=== PATIENT | male | born 1940 | race Caucasian/White ===

== ENCOUNTER → 2018-08-01 | Outpatient (CLI) | payer MEDICARE, BC ==
[2018-08-01 17:54] LABS: HCT 48.1 % (39.0-53.0); HGB 15.5 gm/dL (13.0-17.5); MCH 26.8 pg (25.0-35.0); MCHC 32.2 g/dL (31.0-37.0); MCV 83.3 fL (80.0-100.0); Mean Platelet Volume 6.7; Platelet Count 256 k/uL (150-450); RBC 5.77 m/uL (4.30-5.90); WBC 7.2 k/uL (3.8-10.6)
[2018-08-01 18:06] LABS: Potassium 5.1 mmol/L (3.5-5.1)
== END ==
LOC: LABPAT 16:45
PROVIDERS: ATTEND Internal Medicine Cardiovascular Disease
DX: Z01.812 Encounter for preprocedural laboratory examination (principal); I25.10 Atherosclerotic heart disease of native coronary artery without angina pectoris; I25.2 Old myocardial infarction
CPT/HCPCS: 36415; 80051; 82565; 82947; 83735; 84520; 85027

== ENCOUNTER 2018-08-12 08:29 | Day surgery (SDC) | payer BC, MEDICARE, OTHER ==
[2018-08-09 15:11] VITALS: BMI 30.9
[~2018-08-12 08:29] MED LIST: LACTATED RINGERS 1,000 ML IV SCH; SODIUM CHLORIDE 0.9% 1,000 ML IV SCH
[2018-08-12] MEDS ORDERED: SODIUM CHLORIDE 0.9% 500 ML 500 ML IV ONE (09:37)
[2018-08-12 09:40] LABS: Glucose,Whole Blood 208 mg/dL (75-99)
[2018-08-12] MEDS ORDERED: INSULIN ASPART 100 UNIT/ML 1 ML 10 ML VIAL SQ ONE (09:57)
[2018-08-12] MEDS ORDERED: fentaNYL (PF) 50 MCG/ML 2 ML AMP ONE (10:17)
[2018-08-12] MEDS ORDERED: PROPOFOL 10 MG/ML 20 ML VIAL IV ONE (10:17)
[2018-08-12] MEDS ORDERED: BENZOCAINE SPRAY 1 CAN MUCOUS MEM ONE (10:20)
--- NOTE | 2018-08-12 10:44 | P.PCN ---
Date of Procedure: 08/12/18 Preoperative Diagnosis: Atrial flutter Postoperative Diagnosis: Conversion to sinus rhythm Procedure(s) Performed: ANIL followed by cardioversion Description of Procedure: CARDIOVERSION: This patient with history of ischemic heart disease, newly detected atrial flutter and congestive heart failure ,is brought in for elective cardioversion after adequate anticoagulation. Patient had a ANIL examination which did not reveal any evidence of clot in the left atrial appendage. There is mild sclerosis of by 12 leaflets without any significant stenosis or regurgitation. No mitral regurgitation is noted. Patient was given IV sedation by department of anesthesia. A single shock of 100 J was applied with anterior posterior paddles. Patient converted to sinus rhythm and sinus bradycardia. Conversion EKG showed sinus rhythm with evidence of right bundle-branch block and left axis deviation. Patient tolerated the procedure well. No immediate complications. Plan: Patient will be discharged home later today. He'll continue home medications. Follow-up in the office in one week.
[2018-08-12] MEDS ORDERED: SODIUM CHLORIDE 0.9% 1,000 ML IV SCH ×2 (10:45)
--- NOTE | 2018-08-12 10:49 | P.TEE ---
Indications for Procedure(s): Rule out left atrial thrombus before cardioversion. Date of Procedure: 08/12/18 Preoperative Diagnosis: Atrial flutter, congestive heart failure and ischemic heart disease Postoperative Diagnosis: Successful conversion to sinus rhythm Description of Procedure(s): INDICATION: Atrial flutter, congestive heart failure and ischemic heart disease CONSENT:. Informed consent is obtained from the patient PROCEDURE:. Patient had sedation by department of anesthesia. The throat was sprayed with Cetacaine. A lubricated Omni probe was introduced into the oropharynx and was advanced into the esophagus. Multiple views were obtained. Patient tolerated the procedure well. Color, pulsed and continuous her Doppler studies were performed. Saline contrast bubble injection was also performed FINDINGS:. The aortic valve appeared to be calcified with mild restriction. Planimetry showed a valve area of 1.6. No significant gradient was noted. Mitral valve showed an trace regurgitation. Tricuspid and showed trace regurgitation. Interatrial septum appeared to be intact without any left-to- right shunt. Contrast saline bubble injections did not reveal any crossing of the bubbles across the interatrial septum. There is biatrial enlargement. There is smoke noted in both atria. There is no clot in the left atrial appendage. Left ventricular function appeared to be fair. There is moderate plaque in the aorta IMPRESSION:. No clot in the left atrial appendage. No PFO. Sclerotic aortic valve leaflets without any significant stenosis. Mild mitral and tricuspid regurgitation. Smoke in both atria PLAN: Proceed with cardioversion
[2018-08-12 10:50] VITALS: TEMP 98
[2018-08-12 13:03] VITALS: BP 112/64; PULSE 54; RESP 20
== END 2018-08-12 12:35 | disposition home or self-care (01) ==
LOC: CATHCVL 08:29
PROVIDERS: ATTEND Internal Medicine Cardiovascular Disease
DX: I48.92 Unspecified atrial flutter (principal); I25.10 Atherosclerotic heart disease of native coronary artery without angina pectoris; I11.0 Hypertensive heart disease with heart failure; I50.42 Chronic combined systolic (congestive) and diastolic (congestive) heart failure; E78.5 Hyperlipidemia, unspecified; E11.9 Type 2 diabetes mellitus without complications; Z82.49 Family history of ischemic heart disease and other diseases of the circulatory system; I25.2 Old myocardial infarction; Z79.01 Long term (current) use of anticoagulants; Z79.4 Long term (current) use of insulin; Z79.899 Other long term (current) drug therapy
CPT/HCPCS: 93312; 93320; 93325; 92960; J3010; J2704

== ENCOUNTER → 2018-08-23 | Outpatient (CLI) | payer OTHER ==
[2018-08-24 03:03] LABS: Anion Gap 6.1 mmol/L (4.00-12.00); Calcium 8.7 mg/dL (8.7-10.3); Carbon Dioxide 27.9 mmol/L (21.6-31.8); Potassium 5.3 mmol/L (3.5-5.5)
== END | disposition home or self-care (01) ==
LOC: LABWHC1 16:13
PROVIDERS: ATTEND Internal Medicine Cardiovascular Disease
DX: I50.9 Heart failure, unspecified (principal)
CPT/HCPCS: 36415; 80048

== ENCOUNTER 2018-11-30 11:08 | Inpatient (IN) | payer OTHER, MEDICARE, BC ==
[2018-11-30] MEDS ORDERED: FUROSEMIDE 10 MG/ML 4 ML VIAL IV STA ×2 (11:58→14:02)
--- NOTE | 2018-11-30 12:02 | ED ---
General Adult HPI - General Chief complaint: Shortness of Breath Stated complaint: SOB Time Seen by Provider: 11/30/18 11:46 Source: patient Mode of arrival: wheelchair Limitations: no limitations - History of Present Illness Initial comments: Dictation was produced using [employer] dictation software. please excuse any grammatical, word or spelling errors. Chief Complaint: 78-year-old male past medical history of atrial flutter diabetes, heart failure presents with acute shortness of breath. History of Present Illness: 78-year-old male presents for shortness of breath. Patient states he's been short of breath for approximately one week. Went to the [facility] and was sent here. Patient came to the triage front door. She denies any history of heart failure. Patient denies any medical problems. Patient reports that is also noted swelling to his bilateral lower extremities. He states his symptoms are worse with lying flat. Patient has no pain complaints at this time. The ROS documented in this emergency department record has been reviewed and confirmed by me. Those systems with pertinent positive or negative responses have been documented in the HPI. All other systems are other negative and/or noncontributory. PHYSICAL EXAM: General Impression: Alert and oriented x3, not in acute distress HEENT: Normocephalic atraumatic, extra-ocular movements intact, pupils equal and reactive to light bilaterally, mucous membranes moist. Cardiovascular: Heart regular rate and rhythm, S1&S2 audible, no murmurs, rubs or gallops Chest: Bilateral lung crackles Abdomen: Bowel sounds present, abdomen soft, non-tender, non-distended, no organomegaly Musculoskeletal: Pulses present and equal in all extremities, 2+ pitting edema bilateral lower extremities Motor: no focal deficits noted Neurological: CN II-XII grossly intact, no focal motor or sensory deficits noted Skin: Intact with no visualized rashes Psych: Normal affect and mood ED course: 78-year-old male with chief complaint of shortness of breath. Vital signs upon arrival shows restrictive 25, patient is 80s without supplemental oxygen and respiratory rate of 25. Rest vital signs within acceptable limits. Drug use performed. Patient has eliquis, isosorbide and Lasix medications. Laboratory evaluation obtained. Mild leukocytosis of 11.9. Rest of CBC grossly unremarkable. Coag panel is unremarkable. Metabolic panel appears to be around patient's baseline. His glucose of 471. Patient has troponin 13.8 and a prematurity peptide of 23,000. Repeat EKG was performed showing no dynamic changes however there is discernible SC depressions in the anterior precordial leads. Patient started on low-dose heparin drip and given aspirin. Cardiology was called right away Dr. Chahal requested that patient had a stat echocardiogram. Echocardiogram manufacturing plant technician was called immediately and performed the echo. Echo showed posterior and inferior wall motion abnormalities. Dr. Chahal was seen at bedside with patient. He requested the patient be started on Lasix infusion and be admitted to the intensive care unit. Patient case was discussed with Dr. Dobbs was willing to accept the admission. EKG interpretation: Ventricular rate 94, normal sinus rhythm, NE interval 176, was 138, QTc 510, right bundle branch block. No NE prolongation, no QTC prolongation, no ST or T-wave changes noted. Overall, this EKG is unremarkable - Related Data Home Medications Medication Instructions Recorded Confirmed Apixaban [Eliquis] 5 mg PO BID 08/09/18 11/30/18 Furosemide [Lasix] 40 mg PO DAILY 08/09/18 11/30/18 Potassium Chloride [K-Tab ER] 10 meq PO BID 08/09/18 11/30/18 Spironolactone 12.5 mg PO DAILY 08/09/18 11/30/18 Tamsulosin [Flomax] 0.4 mg PO BID 08/09/18 11/30/18 glipiZIDE [Glucotrol] 10 mg PO AC-BID 08/09/18 11/30/18 metFORMIN HCL 1,000 mg PO DAILY 08/09/18 11/30/18 Metoprolol Tartrate [Lopressor] 50 mg PO BID 08/12/18 11/30/18 Insulin NPH Hum/Reg Insulin Hm 60 unit SQ BID 11/30/18 11/30/18 [Novolin 70-30 Flexpen] Isosorbide Mononitrate ER [Imdur] 90 mg PO DAILY 11/30/18 11/30/18 Rosuvastatin Calcium 40 mg PO DAILY 11/30/18 11/30/18 amLODIPine [Norvasc] 5 mg PO BID 11/30/18 11/30/18 Allergies Allergy/AdvReac Type Severity Reaction Status Date / Time atorvastatin [From Lipitor] Allergy Unknown Verified 11/30/18 12:24 Review of Systems ROS Statement: Those systems with pertinent positive or pertinent negative responses have been documented in the HPI. ROS Other: All systems not noted in ROS Statement are negative. Past Medical History Past Medical History: Atrial Flutter, Diabetes Mellitus, Hyperlipidemia, Osteoarthritis (OA), Prostate Disorder Additional Past Medical History / Comment(s): See Dr Epps's H&P History of Any Multi-Drug Resistant Organisms: None Reported Past Surgical History: Appendectomy, Heart Catheterization With Stent Additional Past Surgical History / Comment(s): Cataracts Past Anesthesia/Blood Transfusion Reactions: No Reported Reaction Date of Last Stent Placement:: unsure Smoking Status: Former smoker - Past Family History Mother Family Medical History: Myocardial Infarction ([place]) General Exam Limitations: no limitations Course Vital Signs 11/30/18 11/30/18 11/30/18 11:29 11:31 12:30 Temperature 98.4 F Pulse Rate 94 109 H Respiratory 25 H 20 22 Rate Blood Pressure 143/84 177/99 O2 Sat by Pulse 92 L 95 Oximetry 11/30/18 13:02 Temperature Pulse Rate 93 Respiratory 20 Rate Blood Pressure 146/82 O2 Sat by Pulse 92 L Oximetry Medical Decision Making - Lab Data Result diagrams: 11/30/18 11:56 11/30/18 11:56 Lab Results 11/30/18 11/30/18 11/30/18 Range/Units 11:56 11:56 11:56 WBC 11.9 H (3.8-10.6) k/uL RBC 5.54 (4.30-5.90) m/uL Hgb 15.1 (13.0-17.5) gm/dL Hct 48.9 (39.0-53.0) % MCV 88.3 (80.0-100.0) fL MCH 27.2 (25.0-35.0) pg MCHC 30.8 L (31.0-37.0) g/dL RDW 14.7 (11.5-15.5) % Plt Count 298 (150-450) k/uL Neutrophils % 90 % Lymphocytes % 2 % Monocytes % 5 % Eosinophils % 1 % Basophils % 0 % Neutrophils # 10.7 H (1.3-7.7) k/uL Lymphocytes # 0.3 L (1.0-4.8) k/uL Monocytes # 0.6 (0-1.0) k/uL Eosinophils # 0.1 (0-0.7) k/uL Basophils # 0.0 (0-0.2) k/uL Hypochromasia Moderate Poikilocytosis Slight PT (9.0-12.0) sec INR (<1.2) APTT (22.0-30.0) sec Sodium 136 L (137-145) mmol/L Potassium 5.0 (3.5-5.1) mmol/L Chloride 99 (98-107) mmol/L Carbon Dioxide 22 (22-30) mmol/L Anion Gap 15 mmol/L BUN 29 H (9-20) mg/dL Creatinine 1.51 H (0.66-1.25) mg/dL Est GFR (CKD-EPI)AfAm 51 (>60 ml/min/1.73 sqM) Est GFR (CKD-EPI)NonAf 44 (>60 ml/min/1.73 sqM) Glucose 471 H (74-99) mg/dL Calcium 8.9 (8.4-10.2) mg/dL Magnesium 2.1 (1.6-2.3) mg/dL Total Bilirubin 1.2 (0.2-1.3) mg/dL AST 83 H (17-59) U/L ALT 32 (21-72) U/L Alkaline Phosphatase 170 H (38-126) U/L Creatine Kinase 257 H (55-170) U/L Troponin I (0.000-0.034) ng/mL NT-Pro-B Natriuret Pep 02673 pg/mL Total Protein 7.0 (6.3-8.2) g/dL Albumin 3.9 (3.5-5.0) g/dL Influenza Type A RNA (Not Detectd) Influenza Type B (PCR) (Not Detectd) 11/30/18 11/30/18 11/30/18 Range/Units 11:56 11:56 12:12 WBC (3.8-10.6) k/uL RBC (4.30-5.90) m/uL Hgb (13.0-17.5) gm/dL Hct (39.0-53.0) % MCV (80.0-100.0) fL MCH (25.0-35.0) pg MCHC (31.0-37.0) g/dL RDW (11.5-15.5) % Plt Count (150-450) k/uL Neutrophils % % Lymphocytes % % Monocytes % % Eosinophils % % Basophils % % Neutrophils # (1.3-7.7) k/uL Lymphocytes # (1.0-4.8) k/uL Monocytes # (0-1.0) k/uL Eosinophils # (0-0.7) k/uL Basophils # (0-0.2) k/uL Hypochromasia Poikilocytosis PT 11.5 (9.0-12.0) sec INR 1.1 (<1.2) APTT 26.3 (22.0-30.0) sec Sodium (137-145) mmol/L Potassium (3.5-5.1) mmol/L Chloride (98-107) mmol/L Carbon Dioxide (22-30) mmol/L Anion Gap mmol/L BUN (9-20) mg/dL Creatinine (0.66-1.25) mg/dL Est GFR (CKD-EPI)AfAm (>60 ml/min/1.73 sqM) Est GFR (CKD-EPI)NonAf (>60 ml/min/1.73 sqM) Glucose (74-99) mg/dL Calcium (8.4-10.2) mg/dL Magnesium (1.6-2.3) mg/dL Total Bilirubin (0.2-1.3) mg/dL AST (17-59) U/L ALT (21-72) U/L Alkaline Phosphatase (38-126) U/L Creatine Kinase (55-170) U/L Troponin I 13.800 H* (0.000-0.034) ng/mL NT-Pro-B Natriuret Pep pg/mL Total Protein (6.3-8.2) g/dL Albumin (3.5-5.0) g/dL Influenza Type A RNA Not Detected (Not Detectd) Influenza Type B (PCR) Not Detected (Not Detectd) Critical Care Time Critical Care Time: Yes Total Critical Care Time: 31 Disposition Clinical Impression: Congestive heart failure, Myocardial infarction Disposition: ADMITTED IP TO THIS HOSP Condition: Critical Referrals: [facility],Clinic [Primary Care Provider] - 1-2 days Decision Time: 14:28
[2018-11-30 12:09] LABS: Basophils % (A) 0 %; Eosinophils # (A) 0.1 k/uL (0-0.7); Eosinophils % (A) 1 %; HCT 48.9 % (39.0-53.0); HGB 15.1 gm/dL (13.0-17.5); Hypochromasia Moderate; Lymphocytes # (A) 0.3 k/uL (1.0-4.8); Lymphocytes % (A) 2 %; MCH 27.2 pg (25.0-35.0); MCHC 30.8 g/dL (31.0-37.0); MCV 88.3 fL (80.0-100.0); Mean Platelet Volume 7.4; Monocytes # (A) 0.6 k/uL (0-1.0); Monocytes % (A) 5 %; Neutrophils # (A) 10.7 k/uL (1.3-7.7); Neutrophils % (A) 90 %; Platelet Count 298 k/uL (150-450); Poikilocytosis Slight; RBC 5.54 m/uL (4.30-5.90); RDW 14.7 % (11.5-15.5); WBC 11.9 k/uL (3.8-10.6)
[2018-11-30 12:22] LABS: INR 1.1 (<1.2); Partial Thromboplastin Time 26.3 sec (22.0-30.0); Prothrombin Time 11.5 sec (9.0-12.0)
[2018-11-30 12:29] LABS: Albumin 3.9 g/dL (3.5-5.0); Calcium 8.9 mg/dL (8.4-10.2); Magnesium 2.1 mg/dL (1.6-2.3); Total Bilirubin 1.2 mg/dL (0.2-1.3)
--- NOTE | 2018-11-30 12:35 | XR ---
EXAMINATION TYPE: XR chest 2V DATE OF EXAM: 11/30/2018 COMPARISON: 07/07/2018 TECHNIQUE: PA and lateral views submitted. HISTORY: Difficulty breathing FINDINGS: Right-sided consolidation small effusion. No pneumothorax. Arthropathy of the shoulders. Heart size n ormal. Hypertrophic and degenerative change of the spine. Left lower lobe infiltrate and small effusi on. IMPRESSION: 1. Stable bilateral infiltrate and pleural effusion correlate for pneumonia, otherwise consider CHF
[2018-11-30] MEDS ORDERED: HEPARIN SODIUM,PORCINE 5,000 UNIT/ML 1 ML VIAL IV ONE (13:01)
[2018-11-30] MEDS ORDERED: HEPARIN SODIUM,PORCINE 5,000 UNIT/ML 1 ML VIAL IV PRN (13:01)
[2018-11-30] MEDS ORDERED: ASPIRIN 81 MG PO STA (13:02)
[2018-11-30] MEDS ORDERED: HEPARIN SOD,PORK IN 0.45% NACL 25,000 UNIT in 0.45% NACL 1 250ML.BAG IV SCH ×2 (13:15→14:30)
[2018-11-30] MEDS ORDERED: METOPROLOL TARTRATE 5 MG/5 ML VIAL IVP STA (13:19)
[2018-11-30] MEDS ORDERED: NALOXONE 0.4 MG/ML 1 ML VIAL IV PRN (14:19)
[2018-11-30] MEDS ORDERED: CARVEDILOL 3.125 MG TAB PO STA (14:27)
[2018-11-30] MEDS: SODIUM CHLORIDE 0.9% 1,000 ML IV SCH (14:35)
--- NOTE | 2018-11-30 14:35 | P.HPIM ---
History of Present Illness This is a pleasant 78 years old male with past medical history of atrial fibrillation, diabetes mellitus, hyperlipidemia, osteoarthritis, congestive heart failure and ischemic heart disease. Patient presents because of worsening dyspnea over one week duration with no chest pain however he has some cough and yellow phlegm. No palpitation or dizziness, no change in urine or bowel habits. No fever. Patient blood pressure is stable at 146/82, saturating 92% on 4 L, he is afebrile. He has mild leukocytosis of 11.9 K, sodium 136, creatinine 1.5 which is close to baseline, glucose 471. Troponin 13.8, influenza is negative. Chest x-ray: Stable bilateral infiltrates suspicious for pneumonia, possible CHF as per radiologist report. EKG showing normal sinus rhythm at [address] depression in V2 to V6. QTC 510. In the emergency room he got aspirin, Coreg and Lasix once. Patient was started on Lasix drip and heparin drip. He is on losartan metoprolol as well. Review of Systems CONSTITUTIONAL: No fever, no malaise, no fatigue. HEENT: No recent visual problems or hearing problems. Denied any sore throat. CARDIOVASCULAR: No orthopnea, PND, no palpitations, no syncope. PULMONARY: No shortness of breath, no cough, no hemoptysis. GASTROINTESTINAL: No diarrhea, no nausea, no vomiting, no abdominal pain. Normoactive bowel sounds. NEUROLOGICAL: No headaches, no weakness, no numbness. HEMATOLOGICAL: Denies any bleeding or petechiae. GENITOURINARY: Denies any burning micturition, frequency, or urgency. MUSCULOSKELETAL/RHEUMATOLOGICAL: Denies any joint pain, swelling, or any muscle pain. ENDOCRINE: Denies any polyuria or polydipsia. Past Medical History Past Medical History: Atrial Flutter, Diabetes Mellitus, Hyperlipidemia, Osteoarthritis (OA), Prostate Disorder Additional Past Medical History / Comment(s): See Dr Epps's H&P History of Any Multi-Drug Resistant Organisms: None Reported Past Surgical History: Appendectomy, Heart Catheterization With Stent Additional Past Surgical History / Comment(s): Cataracts Past Anesthesia/Blood Transfusion Reactions: No Reported Reaction Date of Last Stent Placement:: unsure Smoking Status: Former smoker - Past Family History Mother Family Medical History: Myocardial Infarction ([place]) Medications and Allergies Home Medications Medication Instructions Recorded Confirmed Type Apixaban [Eliquis] 5 mg PO BID 08/09/18 11/30/18 History Furosemide [Lasix] 40 mg PO DAILY 08/09/18 11/30/18 History Potassium Chloride [K-Tab ER] 10 meq PO BID 08/09/18 11/30/18 History Spironolactone 12.5 mg PO DAILY 08/09/18 11/30/18 History Tamsulosin [Flomax] 0.4 mg PO BID 08/09/18 11/30/18 History glipiZIDE [Glucotrol] 10 mg PO AC-BID 08/09/18 11/30/18 History metFORMIN HCL 1,000 mg PO DAILY 08/09/18 11/30/18 History Metoprolol Tartrate [Lopressor] 50 mg PO BID 08/12/18 11/30/18 History Insulin NPH Hum/Reg Insulin Hm 60 unit SQ BID 11/30/18 11/30/18 History [Novolin 70-30 Flexpen] Isosorbide Mononitrate ER [Imdur] 90 mg PO DAILY 11/30/18 11/30/18 History Rosuvastatin Calcium 40 mg PO DAILY 11/30/18 11/30/18 History amLODIPine [Norvasc] 5 mg PO BID 11/30/18 11/30/18 History Allergies Allergy/AdvReac Type Severity Reaction Status Date / Time atorvastatin [From Lipitor] Allergy Unknown Verified 11/30/18 12:24 Physical Exam Vitals: Vital Signs Temp Pulse Resp BP Pulse Ox 11/30/18 13:02 93 20 146/82 92 L 11/30/18 12:30 109 H 22 177/99 95 11/30/18 11:31 20 11/30/18 11:29 98.4 F 94 25 H 143/84 92 L Intake and Output 11/29/18 11/30/18 11/30/18 22:59 06:59 14:59 Other: Weight 86.183 kg GENERAL: The patient is alert and oriented x3, not in any acute distress. Well developed, well nourished. HEENT: Pupils are round and equally reacting to light. EOMI. No scleral icterus. No conjunctival pallor. Normocephalic, atraumatic. No pharyngeal erythema. No thyromegaly. CARDIOVASCULAR: S1 and S2 present. No murmurs, rubs, or gallops. -PULMONARY: Chest is clear to auscultation, scattered bilateral wheezing and basal crackles. ABDOMEN: Soft, nontender, nondistended, normoactive bowel sounds. No palpable organomegaly. MUSCULOSKELETAL: No joint swelling or deformity. EXTREMITIES: No cyanosis, clubbing, or pedal edema. NEUROLOGICAL: Gross neurological examination did not reveal any focal deficits. SKIN: No rashes. Results CBC & Chem 7: 11/30/18 11:56 11/30/18 11:56 Labs: Abnormal Lab Results - Last 24 Hours (Table) 11/30/18 11/30/18 11/30/18 Range/Units 11:56 11:56 11:56 WBC 11.9 H (3.8-10.6) k/uL MCHC 30.8 L (31.0-37.0) g/dL Neutrophils # 10.7 H (1.3-7.7) k/uL Lymphocytes # 0.3 L (1.0-4.8) k/uL Sodium 136 L (137-145) mmol/L BUN 29 H (9-20) mg/dL Creatinine 1.51 H (0.66-1.25) mg/dL Glucose 471 H (74-99) mg/dL AST 83 H (17-59) U/L Alkaline Phosphatase 170 H (38-126) U/L Creatine Kinase 257 H (55-170) U/L Troponin I 13.800 H* (0.000-0.034) ng/mL Assessment and Plan Assessment: Elevated troponin, mostly Non-STEMI Possible acute on chronic congestive heart failure Less likely patient has pneumonia History of coronary artery disease History of congestive heart failure History of atrial fibrillation Diabetes mellitus Hyperlipidemia Plan: This is a pleasant 78 years old male who presents because of the STEMI and acute CHF, continue with diuretics, heparin drip, continue with beta blockers and MELIA inhibitor. Cardiology consult. Continue with antibiotics. Labs and medication were reviewed.. Continue same treatment. Continue with symptomatic treatment. Resume home medication. Monitor lytes and vitals. DVT and GI prophylaxis. Further recommendations of the clinical course of the patient DVT prophylaxis: heparin GI Prophylaxis: Pepcid Prognosis is guarded
[2018-11-30] MEDS: FUROSEMIDE 100 MG in SODIUM CHLORIDE 0.9% 90 ML IV SCH ×2 (14:43→23:21)
[2018-11-30 15:40] LABS: Glucose,Whole Blood 411 mg/dL (75-99)
[2018-11-30 15:40] LABS: Glucose,Whole Blood 420 mg/dL (75-99)
--- NOTE | 2018-11-30 16:00 | CONS ---
CONSULTATION Neto Brice is a 78-year-old gentleman with a history of type 2 diabetes mellitus, hypertension, paroxysmal atrial fibrillation as well as past remote history of smoking. He was seen by Dr. Epps in August in the office, was found to be in a relatively new-onset atrial flutter. He underwent a transesophageal echo which revealed fair systolic function and he went on to have a cardioversion successfully. Since then he has not seen him. He [facility] to the [facility] for [facility] help. About a week and a half ago, he started having shortness of breath and an uncomfortable feeling in the chest. The chest uncomfortable feeling was not something he volunteered, but I had to coax him to get that information. He felt some heaviness in the chest, maybe for a day or so. This was almost about a week and a half, and then he had shortness of breath that progressively got worse. Today he went to the [facility] because his medications were not authorized. After going to the clinic, he was seen and transferred here for further evaluation. On questioning, he is quite short of breath, but after receiving the Lasix he feels better. He has no chest pain. Virtually he says he has absolutely no chest discomfort. He just feels weak, tired, exhausted and short of breath. He has no palpitations, syncope or near-syncope. This Patient has history of previous PCI more than 8-9 years ago, no details available. PAST MEDICAL HISTORY: 1. Paroxysmal atrial flutter, status post transesophageal echo and cardioversion in August 2018 by . 2. Type 2 diabetes. 3. Hypertension. 4. Hyperlipidemia. 5. History of CAD with prior PCI, details unavailable, last Echo in Office revealed EF of 50% with mild Inferior hypokinesis MEDICATIONS: Medications at home include: 1. Glipizide. 2. Insulin. 3. Metformin. 4. Rosuvastatin. 5. Lopressor. 6. Aspirin. PHYSICAL EXAMINATION: Blood pressure is 140/70. Pulse rate is about 90 per minute, regular. HEENT unremarkable. Fundus was not examined by me. NECK: Supple. There is JVD of 1 cm. There is no carotid bruit. Heart exam reveals S1, S2 heard normally. Soft systolic murmur at left sternal border does not seem significant. Ejection systolic murmur audible at the base with preserved second heart sound. LUNGS: Bilateral rales over both bases. Abdomen is soft, nontender. Lower extremities reveal chronic changes, chronic edema, mild to moderate bilateral diminished pulses, healed ulcers. Pulses are not palpable in the feet. EKG revealed a sinus mechanism with evidence of left anterior fascicular block, right bundle branch block pattern with a precordial ST depression. There was an old EKG from August. Compared to that, the precordial ST depression is new. Troponin level is 13.6. Creatinine is 1.5. IMPRESSION: 1. Subacute inferoposterior myocardial infarction based on clinical evaluation and EKG. 2. Congestive heart failure secondary to subacute myocardial infarction with troponin level of 13.6. Has prior history of PCI ans possile Inf UT. 3. Type 2 diabetes mellitus. 4. Hypertension. 5. Hyperlipidemia. 6. Status post electrical cardioversion for atrial flutter in August, maintaining sinus rhythm. Patient is on Eliquis 5 mg b.i.d. RECOMMENDATIONS: I am recommending that we give him additional Lasix, place him on a Lasix drip, resume a small dose of beta alfred once his heart failure improves, maybe this evening, and hold Eliquis, put him on a heparin drip only without any bolus, and perform serial troponins. Echocardiogram was performed today and revealed inferoposterior hypokinesia with an estimated ejection fraction of about 40% by visual inspection without significant mitral regurgitation and no significant pulmonary hypertension. Aortic valve is sclerosed. There is evidence of some increased velocity across the aortic valve, but I do not think it is severe. Patient's overall condition is critical, given the fact he has post-UT heart failure, but UT is subacute. There is no reason to perform emergent intervention. Instead, we will optimize his heart failure, obtain serial troponins and then consider cath electively in the next 24-48 hours. I discussed my thoughts in detail with the patient, explained to him that this is a serious situation. No family members are available. Will send him to ICU. KRISTAL / DONALD: [id number] / MTDD
[2018-11-30 16:24] LABS: HCT 46.3 % (39.0-53.0); HGB 13.8 gm/dL (13.0-17.5); Hypochromasia Marked; MCH 27.3 pg (25.0-35.0); MCHC 29.9 g/dL (31.0-37.0); MCV 91.3 fL (80.0-100.0); Mean Platelet Volume 7.4; Platelet Count 231 k/uL (150-450); Poikilocytosis Slight; RBC 5.07 m/uL (4.30-5.90); RDW 14.3 % (11.5-15.5); WBC 11.8 k/uL (3.8-10.6)
[2018-11-30 16:40] LABS: Calcium 8.4 mg/dL (8.4-10.2)
[2018-11-30] MEDS: LOSARTAN 25 MG TAB PO SCH (16:43)
[2018-11-30] MEDS ORDERED: INSULIN REGULAR BOLUS (FROM DRIP BAG) IV PRN (16:56)
[2018-11-30] MEDS ORDERED: INSULIN REGULAR 100 UNIT in SODIUM CHLORIDE 0.9% 100 ML IV SCH (17:00)
[2018-11-30 18:35] LABS: Glucose,Whole Blood 460 mg/dL (75-99)
[2018-11-30 19:06] LABS: Glucose,Whole Blood 306 mg/dL (75-99)
[2018-11-30] MEDS ORDERED: IPRATROPIUM-ALBUTEROL 3 ML NEB INHALATION PRN (19:27)
[2018-11-30 20:02] LABS: Glucose,Whole Blood 305 mg/dL (75-99)
[2018-11-30] MEDS: methylPREDNISolone SOD SUCCI 40 MG/ML 1 ML VIAL IV SCH ×2 (20:15→23:57)
[2018-11-30] MEDS: AMOXIC-POT CLAV 875-125MG 1 EACH TAB PO SCH (20:15)
[2018-11-30] MEDS: IPRATROPIUM-ALBUTEROL 3 ML NEB INHALATION SCH (20:23)
[2018-11-30 21:05] LABS: Glucose,Whole Blood 186 mg/dL (75-99)
[2018-11-30 22:02] LABS: Glucose,Whole Blood 110 mg/dL (75-99)
[2018-11-30 23:07] LABS: Glucose,Whole Blood 109 mg/dL (75-99)
[2018-12-01 00:03] LABS: Glucose,Whole Blood 134 mg/dL (75-99)
[2018-12-01 01:06] LABS: Glucose,Whole Blood 151 mg/dL (75-99)
[2018-12-01 03:08] LABS: Glucose,Whole Blood 177 mg/dL (75-99)
[2018-12-01 05:11] LABS: Glucose,Whole Blood 174 mg/dL (75-99)
[2018-12-01] MEDS: FUROSEMIDE 100 MG in SODIUM CHLORIDE 0.9% 90 ML IV SCH (05:36)
[2018-12-01 06:06] LABS: Glucose,Whole Blood 145 mg/dL (75-99)
[2018-12-01 06:18] LABS: Magnesium 2.1 mg/dL (1.6-2.3); Phosphorus 4.2 mg/dL (2.5-4.5)
[2018-12-01 07:02] LABS: Glucose,Whole Blood 137 mg/dL (75-99)
--- NOTE | 2018-12-01 07:13 | XR ---
EXAMINATION TYPE: XR chest 1V portable DATE OF EXAM: 12/01/2018 HISTORY: Shortness of breath. COMPARISON: 11/30/2018 TECHNIQUE: Single view of the chest is submitted. FINDINGS: Demonstrated are scattered senescent parenchymal change. Increasing right lower lobe opacity may reflect a combination of effusion, atelectasis and/or infiltr ate. Mild patchy density left lower lobe is also increased. Continued follow-up advised. The heart is stable. Hilar and mediastinal structures are within normal limits. Degenerative changes are seen of the dorsal spine. IMPRESSION: 1. Increasing right lower lobe opacity may reflect a combination of effusion, atelectasis and/or inf iltrate. Mild patchy density left lower lobe is also increased. Continued follow-up advised.
[2018-12-01 07:42] LABS: Glucose,Whole Blood 157 mg/dL (75-99)
[2018-12-01] MEDS: IPRATROPIUM-ALBUTEROL 3 ML NEB INHALATION SCH ×4 (08:01→20:31)
[2018-12-01 08:03] LABS: Glucose,Whole Blood 157 mg/dL (75-99)
[2018-12-01 08:28] LABS: HCT 49.8 % (39.0-53.0); Hypochromasia Slight; MCH 26.7 pg (25.0-35.0); MCHC 30.2 g/dL (31.0-37.0); MCV 88.2 fL (80.0-100.0); Mean Platelet Volume 7.5; Platelet Count 248 k/uL (150-450); RBC 5.64 m/uL (4.30-5.90); RDW 14.7 % (11.5-15.5)
[2018-12-01 08:42] LABS: Calcium 8.4 mg/dL (8.4-10.2)
[2018-12-01] MEDS: HEPARIN SOD,PORK IN 0.45% NACL 25,000 UNIT in 0.45% NACL 1 250ML.BAG IV SCH (08:43)
[2018-12-01 08:48] LABS: Potassium 5.1 mmol/L (3.5-5.1)
[2018-12-01 09:10] LABS: Glucose,Whole Blood 173 mg/dL (75-99)
[2018-12-01] MEDS: ASPIRIN 81 MG PO SCH (09:35)
[2018-12-01] MEDS: CARVEDILOL 3.125 MG TAB PO SCH ×2 (09:35→17:56)
[2018-12-01] MEDS: methylPREDNISolone SOD SUCCI 40 MG/ML 1 ML VIAL IV SCH ×2 (09:36→16:14)
[2018-12-01] MEDS: AMOXIC-POT CLAV 875-125MG 1 EACH TAB PO SCH ×2 (09:36→22:16)
[2018-12-01] MEDS: PANTOPRAZOLE 40 MG/10 ML VIAL IVP SCH (09:37)
[2018-12-01] MEDS: LOSARTAN 25 MG TAB PO SCH (09:37)
[2018-12-01 10:02] LABS: Glucose,Whole Blood 158 mg/dL (75-99)
--- NOTE | 2018-12-01 10:04 | PN ---
PROGRESS NOTE Mr. Brice was seen by me yesterday in the emergency room when he presented with a congestive heart failure and [id number] [place] type picture. Since yesterday, he feels better. His breathing is easier. However, he still seems to have some shortness of breath, although there is modest improvement. He denies any chest discomfort whatsoever. I think we are seeing a combination of CHF and possibly some underlying pneumonia/atelectasis as well which is compromising his pulmonary status. He denies any chest discomfort. Troponin profile suggests that troponin went up from 13 to 26 and came back down. He is hemodynamically stable, more comfortable. Weight is down. Creatinine is up to 1.69. Blood pressure is 114/70, pulse rate is about 70 per minute sinus. EKG revealed sinus mechanism, right bundle, ST depression seen in precordial leads, has improved. Physical exam revealed JVD of 1 cm. No carotid bruit. S1, S2 heard normally. Short systolic murmur is audible at the base of the heart. Second heart sound is preserved. Lungs reveal diminished breath sounds especially right base is diminished. There are fine rales on both sides. Abdomen is soft, nontender. Lower extremities reveal diminished edema. Pulses are diminished. Central nervous system grossly no focal deficits. IMPRESSION: 1. Subacute myocardial infarction with congestive heart failure. 2. Possible pneumonia or atelectasis. 3. History of diabetes mellitus chronic kidney disease. 4. History of paroxysmal atrial fibrillation, status post cardioversion, maintaining sinus rhythm. RECOMMENDATION: I am recommending that we hold Eliquis and stay with heparin drip. He is also going to have a ultrasound of the chest and consider thoracentesis. I would recommend coronary angiography tomorrow. We will switch him from IV Lasix drip to Lasix 40 mg q.12 hours. He has renal dysfunction. I explained to the patient that we will do coronary angiography with the least amount of contrast and I will request Dr. Epps to perform the procedure. The rationale, risks, benefits, options related to cardiac cath were explained to Mr. Brice. He understands all details and wishes to proceed, but we will see how he does from a pulmonary standpoint and recheck his renal function in the morning. Prognosis remains guarded but overall there is modest improvement. MMODL / IJN: [id number] /
--- NOTE | 2018-12-01 10:39 | US ---
EXAMINATION TYPE: US chest DATE OF EXAM: 12/01/2018 COMPARISON: CXR CLINICAL HISTORY: eval for thora. Effusions TECHNIQUE: Targeted ultrasound of the posterior lower bilateral hemithoraces EXAM MEASUREMENTS: Right Pleural Effusion pocket size: 10.6 cm Right skin surface to fluid distance: 3.6 cm Right side marked for possible thoracentesis outside the dept. Left side NOT marked for possible thoracentesis outside the dept. Pulmonologists are able to review the images in the patient?s EMR. IMPRESSIONS: Pleural effusions as noted.
[2018-12-01 11:11] LABS: Glucose,Whole Blood 197 mg/dL (75-99)
--- NOTE | 2018-12-01 11:18 | XR ---
EXAMINATION TYPE: XR chest 1V portable DATE OF EXAM: 12/01/2018 COMPARISON: 12/01/2018 HISTORY: Post right thoracentesis TECHNIQUE: Single frontal view of the chest is obtained. FINDINGS: There is no pneumothorax. Cardiomegaly and underlying COPD noted with bilateral small effu victoria and consolidation which is reduced on the right. Diffuse osteopenia and arthropathy of the shoul sally. Atherosclerotic change aorta. IMPRESSION: Interval reduction in amount pleural fluid on the right postthoracentesis with no sizabl e pneumothorax.
--- NOTE | 2018-12-01 11:49 | PCN ---
PROCEDURE NOTE RIGHT-SIDED THORACENTESIS: PREOPERATIVE DIAGNOSIS: Right-sided pleural effusion. POSTOPERATIVE DIAGNOSIS: Right-sided pleural effusion. ANESTHESIA USED: Two mL of 1% lidocaine. PROCEDURE DESCRIPTION: The patient was placed in a sitting upright position, the area below the right scapula was prepared in a sterile fashion and drapes were applied. The area of the fluid localization was done earlier by ultrasound. At the level of the eighth intercostal space and tip of the scapula, the area was locally anesthetized. A 26-gauge needle was inserted at the same site, advanced into the pleural space until fluid was obtained. Then a small tiny incision was made, and the standard thoracentesis catheter and needle were used, advanced into the same pleural site/space and fluid was obtained. Then, the catheter was advanced out of the needle, and the needle was pulled out of the pleural space. Pleural fluid was obtained, roughly 900 mL of light yellow fluid was obtained from the right pleural space. Procedure was well tolerated, no evidence of any immediate complications. MMODL / IJN: [id number] /
[2018-12-01 12:08] LABS: Glucose,Whole Blood 325 mg/dL (75-99)
[2018-12-01 12:13] LABS: Glucose,Whole Blood 322 mg/dL (75-99)
[2018-12-01] MEDS: FUROSEMIDE 10 MG/ML 4 ML VIAL IV SCH ×2 (12:21→22:16)
--- NOTE | 2018-12-01 12:27 | P.CNPUL ---
History of Present Illness Consult date: 12/01/18 Requesting physician: Simeon E Sheet Reason for consult: other (Subacute inferior posterior myocardial infarction, bilateral pleural effusions) Chief complaint: Shortness of breath and chest tightness History of present illness: This is a 78-year-old white male with history of paroxysmal atrial flutter status post transesophageal echo and cardioversion in August of 2018. Patient has [facility] issues. Although his previous cardioversion was done by few months back. Patient is also known to have history of type 2 diabetes, hypertension, and for the last week and a half, the patient has been complaining of shortness of breath and uncomf ortable feeling in the chest. The uncomfortable feeling is described as heaviness in the chest. And this one and on for at least a day or so. He shortness of breath has become more progressive over the last week and a half, he was seen in the [facility] and he was sent to the emergency room for further evaluation. Upon presentation to the ER, patient was noted to be short of breath, chest x-ray showed evidence of pulmonary edema with bilateral pleural effusions, seen by cardiology while in the ER, his EKG was suggestive of inferior posterior wall [place], and patient was placed on Lasix drip, heparin, admitted to the intensive care unit, and I was asked to see him on consultation. Patient diuresed about 1 L of fluid overnight, however his chest x-ray continues to show bilateral pleural effusions, and I went ahead today and performed a right sided thoracentesis, I was able to drain about 900 mL of fluid from the right pleural space. The amount of the fluid on the left side was felt to be minimal, hence no need to perform thoracentesis on the left side at this point. In the meantime the patient was placed back on heparin, placed back on his cardiac meds, remains on diuretics, and may give a require cardiac catheterization. However his renal functioning has been noted to be compromise, and needs to be monitored. His CBC on admission showed WBC count of 11.8 hemoglobin of 13.8, his BUN was 31, and creatinine of 1.56. Blood sugar was noted to be 440, hence the patient was started on insulin drip upon arrival to the ICU last night. Troponin was significantly elevated at 26.4 and his BNP level was 23,300. Influenza screen was negative. Review of Systems CONSTITUTIONAL: No fever no chills, no malaise, no weight loss HEENT: No recent visual problems or hearing problems. No sore throat, no ear ache. CARDIOVASCULAR: No orthopnea, PND, no palpitations, no syncope. PULMONARY: Some shortness of breath and some vague chest tightness for the last week and a half. GASTROINTESTINAL: No nausea no vomiting no abdominal pain no melena no hematemesis. NEUROLOGICAL: No headaches, no blurred vision no dizziness. HEMATOLOGICAL: Denies any bleeding or petechiae. GENITOURINARY: No dysuria frequency urgency or hematuria. MUSCULOSKELETAL/RHEUMATOLOGICAL: No limitation in range of motion, no deformities. ENDOCRINE: No symptoms of heat or cold intolerance. Patient is diabetic. Past Medical History Past Medical History: Atrial Flutter, Diabetes Mellitus, Hyperlipidemia, Osteoarthritis (OA), Prostate Disorder Additional Past Medical History / Comment(s): See Dr Epps's H&P History of Any Multi-Drug Resistant Organisms: None Reported Past Surgical History: Appendectomy, Heart Catheterization With Stent Additional Past Surgical History / Comment(s): Cataracts Past Anesthesia/Blood Transfusion Reactions: No Reported Reaction Date of Last Stent Placement:: unsure Past Psychological History: No Psychological Hx Reported Smoking Status: Former smoker Past Alcohol Use History: None Reported Additional Past Alcohol Use History / Comment(s): smoked 2 months in 1963; quit drinking 1973 Past Drug Use History: None Reported - Past Family History Mother Family Medical History: Myocardial Infarction ([place]) Additional Family Medical History / Comment(s): age 64 Medications and Allergies Home Medications Medication Instructions Recorded Confirmed Type Apixaban [Eliquis] 5 mg PO BID 08/09/18 11/30/18 History Furosemide [Lasix] 40 mg PO DAILY 08/09/18 11/30/18 History Potassium Chloride [K-Tab ER] 10 meq PO BID 08/09/18 11/30/18 History Spironolactone 12.5 mg PO DAILY 08/09/18 11/30/18 History Tamsulosin [Flomax] 0.4 mg PO BID 08/09/18 11/30/18 History glipiZIDE [Glucotrol] 10 mg PO AC-BID 08/09/18 11/30/18 History metFORMIN HCL 1,000 mg PO DAILY 08/09/18 11/30/18 History Metoprolol Tartrate [Lopressor] 50 mg PO BID 08/12/18 11/30/18 History Insulin NPH Hum/Reg Insulin Hm 60 unit SQ BID 11/30/18 11/30/18 History [Novolin 70-30 Flexpen] Isosorbide Mononitrate ER [Imdur] 90 mg PO DAILY 11/30/18 11/30/18 History Rosuvastatin Calcium 40 mg PO DAILY 11/30/18 11/30/18 History amLODIPine [Norvasc] 5 mg PO BID 11/30/18 11/30/18 History Allergies Allergy/AdvReac Type Severity Reaction Status Date / Time atorvastatin [From Lipitor] Allergy Unknown Verified 11/30/18 12:24 Physical Exam Vitals: Vital Signs Temp Pulse Resp BP Pulse Ox 12/01/18 12:01 74 12/01/18 11:49 75 12/01/18 11:00 73 24 119/91 98 12/01/18 10:00 73 22 122/65 97 12/01/18 09:00 72 24 114/69 95 12/01/18 08:14 76 12/01/18 08:01 75 97 12/01/18 08:00 72 24 95/84 97 12/01/18 07:00 72 24 84/74 96 12/01/18 06:00 72 26 H 120/66 98 12/01/18 05:00 67 22 91/47 97 12/01/18 04:00 97.9 F 67 23 110/65 96 12/01/18 03:00 69 25 H 110/65 96 12/01/18 02:00 71 24 108/61 94 L 12/01/18 01:00 72 27 H 116/63 95 12/01/18 00:48 72 24 116/63 94 L 12/01/18 00:00 98.7 F 75 25 H 117/69 96 11/30/18 23:00 79 24 115/65 97 11/30/18 22:00 80 21 105/58 95 11/30/18 21:00 73 21 112/65 96 11/30/18 20:34 77 11/30/18 20:24 76 11/30/18 20:00 98.7 F 78 19 119/89 95 11/30/18 19:00 80 12 133/81 96 11/30/18 18:30 81 16 133/81 96 11/30/18 18:00 84 30 H 145/87 96 11/30/18 17:30 84 24 145/87 96 11/30/18 17:00 88 36 H 151/82 94 L 11/30/18 16:35 89 15 151/82 96 11/30/18 15:30 98.8 F 88 27 H 137/92 95 11/30/18 15:10 162/99 11/30/18 15:00 90 37 H 169/95 11/30/18 14:50 90 37 H 169/95 93 L 11/30/18 14:40 90 38 H 172/109 94 L 11/30/18 14:30 93 32 H 163/96 94 L 11/30/18 14:20 131 H 26 H 163/96 82 L 11/30/18 14:10 93 34 H 157/103 93 L 11/30/18 14:00 90 30 H 146/82 93 L 11/30/18 13:50 92 21 146/82 92 L 11/30/18 13:40 92 15 146/82 90 L 11/30/18 13:30 109 H 41 H 185/102 92 L 11/30/18 13:20 22 185/102 11/30/18 13:10 105 H 15 167/100 85 L 11/30/18 13:02 93 20 146/82 92 L 11/30/18 13:00 99 37 H 175/108 92 L 11/30/18 12:50 99 36 H 175/108 97 11/30/18 12:40 101 H 39 H 176/104 93 L 11/30/18 12:30 109 H 22 157/91 95 11/30/18 12:20 99 23 157/91 96 Intake and Output 11/30/18 12/01/18 12/01/18 22:59 06:59 14:59 Intake Total 245.300 396.879 127.369 Output Total 690 745 640 Balance -444.700 -348.121 -512.631 Intake: IV 210 240 120 0.9 NACL 140 160 100 Lasix 70 80 20 Intake, IV Titration 35.300 156.879 7.369 Amount Furosemide 100 mg In 148.833 Sodium Chloride 0.9% 90 ml @ 10 MG/HR 10 mls/hr IV .Q10H [facility] Rx#: [id number] Heparin Sod,Pork in 0.45% 5.517 NaCl 25,000 unit In 0.45 % NaCl 1 250ml.bag @ 800 UNIT/HR 8 mls/hr IV .Q24H [facility] Rx#:[id number] Insulin Regular 100 unit 35.300 8.046 1.852 In Sodium Chloride 0.9% 100 ml @ Per Protocol IV .Q0M [facility] Rx#:[id number] Output: Urine 690 745 640 Other: Voiding Method Indwelling Catheter Indwelling Catheter Indwelling Catheter Weight 83.7 kg Physical Exam: Revealed a 78-year-old white male in no distress, very pleasant. On 2 L nasal cannula. Head: Atraumatic, normocephalic. HEENT:[Neck is supple.] [No neck masses.] [No thyromegaly.] [No JVD.] Chest: [Diminished breath sounds and dullness at the bases bilaterally, symmetrical chest expansion, no chest wall tenderness. Cardiac Exam: [Normal S1 and S2, no S3 gallop, 2/6 systolic ejection murmur at the left sternal border. Abdomen: [Soft, nontender, no megaly, no rebound, no guarding, normal bowel sounds.] Extremities: [Chronic venous stasis changes, 1+ bipedal edema, diminished distal pulses bilaterally. Neurological Exam: Alert and oriented 3, [No focal neurologic deficit.] Psychiatric: Normal mood, affect and mental status examination. Skin: No rashes. Pharynx: No lymphadenopathy. Results - Laboratory Findings CBC and BMP: 12/01/18 05:38 12/01/18 05:38 PT/INR, D-dimer PT 11.5 sec (9.0-12.0) 11/30/18 11:56 INR 1.1 (<1.2) 11/30/18 11:56 Abnormal lab findings: Abnormal Labs 11/30/18 11/30/18 11/30/18 11:56 11:56 11:56 WBC 11.9 H MCHC 30.8 L Neutrophils # 10.7 H Lymphocytes # 0.3 L APTT Sodium 136 L BUN 29 H Creatinine 1.51 H Glucose 471 H POC Glucose (mg/dL) Plasma Lactic Acid Gutierrez AST 83 H Alkaline Phosphatase 170 H Creatine Kinase 257 H CK-MB (CK-2) Troponin I 13.800 H* 11/30/18 11/30/18 11/30/18 11:56 11:56 15:35 WBC MCHC Neutrophils # Lymphocytes # APTT Sodium BUN Creatinine Glucose POC Glucose (mg/dL) 411 H Plasma Lactic Acid Gutierrez 3.2 H* AST Alkaline Phosphatase Creatine Kinase CK-MB (CK-2) 23.5 H Troponin I 11/30/18 11/30/18 11/30/18 15:37 16:08 16:08 WBC 11.8 H MCHC 29.9 L Neutrophils # Lymphocytes # APTT Sodium 134 L BUN 31 H Creatinine 1.56 H Glucose 440 H POC Glucose (mg/dL) 420 H Plasma Lactic Acid Gutierrez AST Alkaline Phosphatase Creatine Kinase CK-MB (CK-2) Troponin I 11/30/18 11/30/18 11/30/18 18:25 18:49 18:49 WBC MCHC Neutrophils # Lymphocytes # APTT 35.8 H Sodium BUN Creatinine Glucose POC Glucose (mg/dL) 460 H Plasma Lactic Acid Gutierrez AST Alkaline Phosphatase Creatine Kinase CK-MB (CK-2) Troponin I 28.600 H* 11/30/18 11/30/18 11/30/18 19:04 20:01 21:04 WBC MCHC Neutrophils # Lymphocytes # APTT Sodium BUN Creatinine Glucose POC Glucose (mg/dL) 306 H 305 H 186 H Plasma Lactic Acid Gutierrez AST Alkaline Phosphatase Creatine Kinase CK-MB (CK-2) Troponin I 11/30/18 11/30/18 11/30/18 22:00 23:05 23:50 WBC MCHC Neutrophils # Lymphocytes # APTT Sodium BUN Creatinine Glucose POC Glucose (mg/dL) 110 H 109 H Plasma Lactic Acid Gutierrez AST Alkaline Phosphatase Creatine Kinase CK-MB (CK-2) Troponin I 26.400 H* 11/30/18 12/01/18 12/01/18 23:58 01:03 03:06 WBC MCHC Neutrophils # Lymphocytes # APTT Sodium BUN Creatinine Glucose POC Glucose (mg/dL) 134 H 151 H 177 H Plasma Lactic Acid Gutierrez AST Alkaline Phosphatase Creatine Kinase CK-MB (CK-2) Troponin I 12/01/18 12/01/18 12/01/18 05:09 05:38 05:38 WBC MCHC Neutrophils # Lymphocytes # APTT Sodium BUN 40 H Creatinine 1.69 H Glucose 149 H POC Glucose (mg/dL) 174 H Plasma Lactic Acid Gutierrez AST Alkaline Phosphatase Creatine Kinase CK-MB (CK-2) Troponin I 20.200 H* 12/01/18 12/01/18 12/01/18 05:38 06:04 07:00 WBC 15.0 H MCHC 30.2 L Neutrophils # Lymphocytes # APTT Sodium BUN Creatinine Glucose POC Glucose (mg/dL) 145 H 137 H Plasma Lactic Acid Gutierrez AST Alkaline Phosphatase Creatine Kinase CK-MB (CK-2) Troponin I 12/01/18 12/01/18 12/01/18 07:41 08:01 09:07 WBC MCHC Neutrophils # Lymphocytes # APTT Sodium BUN Creatinine Glucose POC Glucose (mg/dL) 157 H 157 H 173 H Plasma Lactic Acid Gutierrez AST Alkaline Phosphatase Creatine Kinase CK-MB (CK-2) Troponin I 12/01/18 12/01/18 12/01/18 10:00 11:10 12:07 WBC MCHC Neutrophils # Lymphocytes # APTT Sodium BUN Creatinine Glucose POC Glucose (mg/dL) 158 H 197 H 325 H Plasma Lactic Acid Gutierrez AST Alkaline Phosphatase Creatine Kinase CK-MB (CK-2) Troponin I - Diagnostic Findings Chest x-ray: image reviewed (Chest x-ray is clearly consistent with congestive heart failure and bilateral pleural effusion, strongly doubt underlying pneumonia.) Additional studies: EKG showed sinus rhythm, left anterior fascicular block, right bundle branch block pattern, ST depression in precordial leads, compared to previous EKG that precordial ST depression is new. Assessment and Plan Assessment: Impression: 1 subacute inferoposterior myocardial infarction 2 acute congestive heart failure secondary to subacute myocardial infarction, suspect ischemic cardiomyopathy and LV dysfunction. 3 type 2 diabetes, on insulin patient is normally on glipizide insulin and metformin. 4 hypertension, patient is normally on Lopressor 5 hyperlipidemia 6 history of atrial flutter requiring cardioversion in August of 2018. 7 history of underlying coronary artery disease, and previous PCI. Recommendation: Continue present treatment plan including diuretics, beta blockers, anticoagulations therapy/heparin, check echocardiogram and LV function, we'll arrange for a right-sided thoracentesis and this was done were and 900 mL of fluid was drained from the right pleural space sent for different diagnostic studies. Discussed his condition with cardiology on the case. We'll continue to follow. Patient will be monitored in the intensive care unit. Her doses is definitely guarded at this point. Continue GI prophylaxis. Continue insulin drip and address hyperglycemia accordingly. Time with Patient: Greater than 30
--- NOTE | 2018-12-01 12:50 | ECHOF ---
Referral Reason:dyspnea MEASUREMENTS -------- HEIGHT: 165.1 cm WEIGHT: 86.2 kg BP: RVIDd: 1.4 cm (< 3.3) IVSd: 1.4 cm (0.6 - 1.1) LVIDd: 4.5 cm (3.9 - 5.3) LVPWd: 1.4 cm (0.6 - 1.1) IVSs: 1.6 cm LVIDs: 4.2 cm LVPWs: 1.2 cm LA Diam: 4.4 cm (2.7 - 3.8) Ao Diam: 3.1 cm (2.0 - 3.7) AV Cusp: 0.8 cm (1.5 - 2.6) LA Diam: 3.8 cm (2.7 - 3.8) MV EXCURSION: 19.436 mm (> 18.000) MV EF SLOPE: 71 mm/s (70 - 150) EPSS: 1.0 cm MV E Nik: 1.02 m/s MV DecT: 139 ms MV A Nik: 0.52 m/s MV E/A Ratio: 1.96 AV maxP.58 mmHg AV meanP.51 mmHg RAP: 5.00 mmHg RVSP: 45.03 mmHg FINDINGS -------- Sinus rhythm. This was a technically adequate study. The left ventricular size is normal. There is moderate concentric left ventricular hypertrophy. O verall left ventricular systolic function is mild-moderately impaired with, an EF between 40 - 45 %. Mitral Doppler inflow pattern suggests diastolic filling abnormality 32.67. Posterior hypokinesis Inferiorlateral Hypokinesis Inferior Hypokinesis The right ventricle is normal in size. The left atrial size is normal. The right atrial size is normal. Aortic valve is trileaflet and is moderately thickened. Peak/mean gradient across the Aortic Valve is 13.58mmHg / 6.51mmHg. Aov Gradient is underestimated due to decrease EF. Mild mitral annular calcification present. Mild mitral regurgitation is present. Mild tricuspid regurgitation present. There is mild pulmonary hypertension. The right ventricular systolic pressure, as measured by Doppler, is 45.03mmHg. There is no pulmonic regurgitation present. The aortic root size is normal. Normal inferior vena cava with normal inspiratory collapse consistent with estimated right atrial pre ssure of 5 mmHg. There is a trivial pericardial effusion present. CONCLUSIONS -------- 1. The left ventricular size is normal. 2. There is moderate concentric left ventricular hypertrophy. 3. Mitral Doppler inflow pattern suggest diastolic filling abnormality 32.67. 4. Posterior hypokinesis 5. Inferiorlateral Hypokinesis 6. Inferior Hypokinesis 7. The right ventricle is normal in size. 8. The left atrial size is normal. 9. The right atrial size is normal. 10. Aortic valve is trileaflet and is moderately thickened. 11. Peak/mean gradient across the Aortic Valve is 13.58mmHg / 6.51mmHg. 12. Aov Gradient is underestimated due to decrease EF. 13. Mild mitral annular calcification present. 14. Mild mitral regurgitation is present. 15. Mild tricuspid regurgitation present. 16. There is mild pulmonary hypertension. 17. The right ventricular systolic pressure, as measured by Doppler, is 45.03mmHg. 18. There is no pulmonic regurgitation present. 19. The aortic root size is normal. 20. Normal inferior vena cava with normal inspiratory collapse consistent with estimated right atrial pressure of 5 mmHg. 21. There is a trivial pericardial effusion present. [employer]LECT[employer] V[employer] GAMES SERVICER: Kamilah Crespo RDCS
[2018-12-01 13:14] LABS: Glucose,Whole Blood 195 mg/dL (75-99)
[2018-12-01 14:06] LABS: Glucose,Whole Blood 189 mg/dL (75-99)
[2018-12-01 14:46] LABS: Appearance,BF Clear; Color,BF Yellow
[2018-12-01 14:50] LABS: Nucleated Cells, Body Fluid 55 /uL; RBC, Body Fluid 445 /uL
[2018-12-01 14:51] LABS: Mononuclear WBC,Body Fluid 95 %; Polynuclear WBC,Body Fluid 5 %; Total Cells Counted,Body Fluid 100
[2018-12-01 15:15] LABS: Glucose,Whole Blood 179 mg/dL (75-99)
[2018-12-01] MEDS: SODIUM CHLORIDE 0.9% 1,000 ML IV SCH (15:18)
[2018-12-01 16:06] LABS: Glucose,Whole Blood 195 mg/dL (75-99)
[2018-12-01 16:17] LABS: Hemoglobin A1C 7.8 % (4.0-6.0)
[2018-12-01 17:11] LABS: Glucose,Whole Blood 174 mg/dL (75-99)
[2018-12-01] MEDS ORDERED: INSULIN DETEMIR (LEVEMIR) 100 UNIT/ML SYR SQ ONE (17:13)
[2018-12-01 17:25] LABS: Total Protein, Body Fluid 1862 mg/dL
[2018-12-01] MEDS: INSULIN ASPART (NovoLOG) 100 UNIT/ML VIAL SQ SCH ×2 (17:56→22:16)
--- NOTE | 2018-12-01 18:36 | P.PN ---
Subjective This is a pleasant 78 years old male with past medical history of atrial fibrillation, diabetes mellitus, hyperlipidemia, osteoarthritis, congestive heart failure and ischemic heart disease. Patient presents because of worsening dyspnea over one week duration with no chest pain however he has some cough and yellow phlegm. No palpitation or dizziness, no change in urine or bowel habits. No fever. Patient blood pressure is stable at 146/82, saturating 92% on 4 L, he is afebrile. He has mild leukocytosis of 11.9 K, sodium 136, creatinine 1.5 which is close to baseline, glucose 471. Troponin 13.8, influenza is negative. Chest x-ray: Stable bilateral infiltrates suspicious for pneumonia, possible CHF as per radiologist report. EKG showing normal sinus rhythm at [address] depression in V2 to V6. QTC 510. In the emergency room he got aspirin, Coreg and Lasix once. Patient was started on Lasix drip and heparin drip. He is on losartan metoprolol as well. 12/01/2018 patient is seen today in the ICU. His resting comfortably and feels better. His feeling was better. Still no chest pain. Dry cough.vitals his stable although he isn't tachypneic. Saturating 99% on 4 L oxygen via NC.creatinine is 1.69. Troponins are elevated at 13.8, 28.6, 20.2. Patient is been followed closely by cardiology and pulmonary/critical care team.the plan for cardiac cath tomorrow. CONSTITUTIONAL: No fever, no malaise, no fatigue. HEENT: No recent visual problems or hearing problems. Denied any sore throat. CARDIOVASCULAR: no palpitations, no syncope. PULMONARY:, no hemoptysis. GASTROINTESTINAL: No diarrhea, no nausea, no vomiting, no abdominal pain. Normoactive bowel sounds. NEUROLOGICAL: No headaches, no weakness, no numbness. HEMATOLOGICAL: Denies any bleeding or petechiae. GENITOURINARY: Denies any burning micturition, frequency, or urgency. MUSCULOSKELETAL/RHEUMATOLOGICAL: Denies any joint pain, swelling, or any muscle pain. ENDOCRINE: Denies any polyuria or polydipsia. medication: Albuterol, Augmentin, aspirin, Coreg, Lasix, losartan, salmeterol, Protonix, and heparin drip. Objective - Vital Signs Vital signs: Vital Signs Temp 97.9 F 12/01/18 16:00 Pulse 74 12/01/18 16:05 Resp 27 H 12/01/18 16:00 BP 108/70 12/01/18 16:00 Pulse Ox 99 12/01/18 16:00 Intake & Output 11/30/18 12/01/18 12/01/18 18:59 06:59 18:59 Intake Total 90 552.179 254.201 Output Total 024 981 0617 Balance -385 -407.821 -805.799 Weight 86.183 kg 83.7 kg 83.7 kg Intake: IV 90 360 220 0.9 NACL 60 240 200 Lasix 30 120 20 Intake, IV Titration 192.179 34.201 Amount Furosemide 100 mg In 148.833 Sodium Chloride 0.9% 90 ml @ 10 MG/HR 10 mls/hr IV .Q10H [facility] Rx#: [id number] Heparin Sod,Pork in 0.45% 5.517 NaCl 25,000 unit In 0.45 % NaCl 1 250ml.bag @ 800 UNIT/HR 8 mls/hr IV .Q24H [facility] Rx#:[id number] Insulin Regular 100 unit 43.346 28.684 In Sodium Chloride 0.9% 100 ml @ Per Protocol IV .Q0M [facility] Rx#:[id number] Output: Urine 333 710 5098 Other: Voiding Method Indwelling Catheter Indwelling Catheter Indwelling Catheter - Exam GENERAL: The patient is alert and oriented x3, not in any acute distress. Well developed, well nourished. HEENT: Pupils are round and equally reacting to light. EOMI. No scleral icterus. No conjunctival pallor. Normocephalic, atraumatic. No pharyngeal erythema. No thyromegaly. CARDIOVASCULAR: S1 and S2 present. No murmurs, rubs, or gallops. -PULMONARY: Chest is clear to auscultation, scattered bilateral wheezing and basal crackles. ABDOMEN: Soft, nontender, nondistended, normoactive bowel sounds. No palpable organomegaly. MUSCULOSKELETAL: No joint swelling or deformity. EXTREMITIES: No cyanosis, clubbing, or pedal edema. NEUROLOGICAL: Gross neurological examination did not reveal any focal deficits. SKIN: No rashes. - Labs CBC & Chem 7: 12/01/18 05:38 12/01/18 05:38 Labs: Abnormal Lab Results - Last 24 Hours (Table) 11/30/18 11/30/18 11/30/18 Range/Units 18:25 18:49 18:49 WBC (3.8-10.6) k/uL MCHC (31.0-37.0) g/dL APTT 35.8 H (22.0-30.0) sec BUN (9-20) mg/dL Creatinine (0.66-1.25) mg/dL Glucose (74-99) mg/dL POC Glucose (mg/dL) 460 H (75-99) mg/dL Hemoglobin A1c (4.0-6.0) % Troponin I 28.600 H* (0.000-0.034) ng/mL 11/30/18 11/30/18 11/30/18 Range/Units 19:04 20:01 21:04 WBC (3.8-10.6) k/uL MCHC (31.0-37.0) g/dL APTT (22.0-30.0) sec BUN (9-20) mg/dL Creatinine (0.66-1.25) mg/dL Glucose (74-99) mg/dL POC Glucose (mg/dL) 306 H 305 H 186 H (75-99) mg/dL Hemoglobin A1c (4.0-6.0) % Troponin I (0.000-0.034) ng/mL 11/30/18 11/30/18 11/30/18 Range/Units 22:00 23:05 23:50 WBC (3.8-10.6) k/uL MCHC (31.0-37.0) g/dL APTT (22.0-30.0) sec BUN (9-20) mg/dL Creatinine (0.66-1.25) mg/dL Glucose (74-99) mg/dL POC Glucose (mg/dL) 110 H 109 H (75-99) mg/dL Hemoglobin A1c (4.0-6.0) % Troponin I 26.400 H* (0.000-0.034) ng/mL 11/30/18 12/01/18 12/01/18 Range/Units 23:58 01:03 03:06 WBC (3.8-10.6) k/uL MCHC (31.0-37.0) g/dL APTT (22.0-30.0) sec BUN (9-20) mg/dL Creatinine (0.66-1.25) mg/dL Glucose (74-99) mg/dL POC Glucose (mg/dL) 134 H 151 H 177 H (75-99) mg/dL Hemoglobin A1c (4.0-6.0) % Troponin I (0.000-0.034) ng/mL 12/01/18 12/01/18 12/01/18 Range/Units 05:09 05:38 05:38 WBC (3.8-10.6) k/uL MCHC (31.0-37.0) g/dL APTT (22.0-30.0) sec BUN (9-20) mg/dL Creatinine (0.66-1.25) mg/dL Glucose (74-99) mg/dL POC Glucose (mg/dL) 174 H (75-99) mg/dL Hemoglobin A1c 7.8 H (4.0-6.0) % Troponin I 20.200 H* (0.000-0.034) ng/mL 12/01/18 12/01/18 12/01/18 Range/Units 05:38 05:38 06:04 WBC 15.0 H (3.8-10.6) k/uL MCHC 30.2 L (31.0-37.0) g/dL APTT (22.0-30.0) sec BUN 40 H (9-20) mg/dL Creatinine 1.69 H (0.66-1.25) mg/dL Glucose 149 H (74-99) mg/dL POC Glucose (mg/dL) 145 H (75-99) mg/dL Hemoglobin A1c (4.0-6.0) % Troponin I (0.000-0.034) ng/mL 12/01/18 12/01/18 12/01/18 Range/Units 07:00 07:41 08:01 WBC (3.8-10.6) k/uL MCHC (31.0-37.0) g/dL APTT (22.0-30.0) sec BUN (9-20) mg/dL Creatinine (0.66-1.25) mg/dL Glucose (74-99) mg/dL POC Glucose (mg/dL) 137 H 157 H 157 H (75-99) mg/dL Hemoglobin A1c (4.0-6.0) % Troponin I (0.000-0.034) ng/mL 12/01/18 12/01/18 12/01/18 Range/Units 09:07 10:00 11:10 WBC (3.8-10.6) k/uL MCHC (31.0-37.0) g/dL APTT (22.0-30.0) sec BUN (9-20) mg/dL Creatinine (0.66-1.25) mg/dL Glucose (74-99) mg/dL POC Glucose (mg/dL) 173 H 158 H 197 H (75-99) mg/dL Hemoglobin A1c (4.0-6.0) % Troponin I (0.000-0.034) ng/mL 12/01/18 12/01/18 12/01/18 Range/Units 12:07 12:12 13:12 WBC (3.8-10.6) k/uL MCHC (31.0-37.0) g/dL APTT (22.0-30.0) sec BUN (9-20) mg/dL Creatinine (0.66-1.25) mg/dL Glucose (74-99) mg/dL POC Glucose (mg/dL) 325 H 322 H 195 H (75-99) mg/dL Hemoglobin A1c (4.0-6.0) % Troponin I (0.000-0.034) ng/mL 12/01/18 12/01/18 12/01/18 Range/Units 14:05 15:14 16:04 WBC (3.8-10.6) k/uL MCHC (31.0-37.0) g/dL APTT (22.0-30.0) sec BUN (9-20) mg/dL Creatinine (0.66-1.25) mg/dL Glucose (74-99) mg/dL POC Glucose (mg/dL) 189 H 179 H 195 H (75-99) mg/dL Hemoglobin A1c (4.0-6.0) % Troponin I (0.000-0.034) ng/mL 12/01/18 Range/Units 17:10 WBC (3.8-10.6) k/uL MCHC (31.0-37.0) g/dL APTT (22.0-30.0) sec BUN (9-20) mg/dL Creatinine (0.66-1.25) mg/dL Glucose (74-99) mg/dL POC Glucose (mg/dL) 174 H (75-99) mg/dL Hemoglobin A1c (4.0-6.0) % Troponin I (0.000-0.034) ng/mL Microbiology - Last 24 Hours (Table) 12/01/18 10:45 Body Fluid Culture - Preliminary Pleural Fluid 11/30/18 11:56 Blood Culture - Preliminary Blood No Growth after 24 hours Assessment and Plan Assessment: Elevated troponin, mostly Non-STEMI Possible acute on chronic congestive heart failure Less likely patient has pneumonia History of coronary artery disease History of congestive heart failure History of atrial fibrillation Diabetes mellitus Hyperlipidemia Plan: This is a pleasant 78 years old male who presents because of the STEMI and acute CHF, continue with diuretics, heparin drip, continue with beta blockers and MELIA inhibitor. Cardiology consult. Continue with antibiotics. Labs and medication were reviewed.. Continue same treatment. Continue with symptomatic treatment. Resume home medication. Monitor lytes and vitals. DVT and GI prophylaxis. Further recommendations of the clinical course of the patient DVT prophylaxis: heparin GI Prophylaxis: Pepcid Prognosis is guarded
[2018-12-01 20:37] LABS: Glucose,Whole Blood 259 mg/dL (75-99)
[2018-12-02] MEDS: methylPREDNISolone SOD SUCCI 40 MG/ML 1 ML VIAL IV SCH ×3 (00:03→15:41)
[2018-12-02] MEDS: HEPARIN SODIUM,PORCINE 5,000 UNIT/ML 1 ML VIAL IV PRN ×2 (00:33→19:59)
[2018-12-02 01:40] LABS: Glucose,Whole Blood 217 mg/dL (75-99)
[2018-12-02] MEDS: INSULIN ASPART (NovoLOG) 100 UNIT/ML VIAL SQ SCH ×5 (01:42→20:51)
[2018-12-02 05:03] LABS: Basophils % (A) 0 %; Eosinophils # (A) 0.1 k/uL (0-0.7); Eosinophils % (A) 0 %; Lymphocytes # (A) 0.5 k/uL (1.0-4.8); Lymphocytes % (A) 2 %; MCH 26.1 pg (25.0-35.0); Monocytes # (A) 1.1 k/uL (0-1.0); Monocytes % (A) 6 %; Neutrophils # (A) 17.7 k/uL (1.3-7.7); Neutrophils % (A) 91 %; Platelet Count 287 k/uL (150-450); RBC 5.36 m/uL (4.30-5.90); RDW 14.2 % (11.5-15.5); WBC 19.5 k/uL (3.8-10.6)
[2018-12-02 05:51] LABS: Calcium 8.1 mg/dL (8.4-10.2); Magnesium 2.2 mg/dL (1.6-2.3); Phosphorus 4.8 mg/dL (2.5-4.5); Potassium 4.2 mmol/L (3.5-5.1)
[2018-12-02 07:10] LABS: Glucose,Whole Blood 148 mg/dL (75-99)
[2018-12-02] MEDS: CARVEDILOL 3.125 MG TAB PO SCH ×2 (07:12→17:21)
[2018-12-02] MEDS: ASPIRIN 81 MG PO SCH (07:40)
[2018-12-02] MEDS: FUROSEMIDE 10 MG/ML 4 ML VIAL IV SCH (07:40)
[2018-12-02] MEDS: PANTOPRAZOLE 40 MG/10 ML VIAL IVP SCH (07:40)
[2018-12-02] MEDS: IPRATROPIUM-ALBUTEROL 3 ML NEB INHALATION SCH ×4 (07:54→19:52)
--- NOTE | 2018-12-02 09:03 | XR ---
EXAMINATION TYPE: XR chest 1V portable DATE OF EXAM: 12/02/2018 COMPARISON: 12/01/2018 HISTORY: Status post thoracentesis TECHNIQUE: Single frontal view of the chest is obtained. FINDINGS: There is an enlarged cardiomediastinal silhouette area trace right pleural effusion blunts the costophrenic angle. No pneumothorax is seen. Remainder the lungs are clear. Mild multilevel dege nerative change of the spine and acromioclavicular joints are present. IMPRESSION: Trace right pleural effusion remains unchanged. No evidence of pneumothorax status post thoracentesis.
--- NOTE | 2018-12-02 10:41 | PN ---
PROGRESS NOTE Mr. Brice is a 78-year-old male who presented with symptoms progressive of dyspnea and was found to have evidence of myocardial infarction. He had a large pleural effusion and underwent thoracentesis yesterday. He is feeling much better today, his breathing is better. He denies any chest pain. He denies any dizziness, palpitation. He denies any nausea. His echocardiogram showed ejection fraction of 40% to 45%. He has continued to be on aspirin, Coreg 3.125 mg twice a day, Lasix 40 mg IV q.12 hours, IV heparin, losartan 25 mg daily. PHYSICAL EXAMINATION: Blood pressure 115/80 with a heart rate in the 60s. Lungs with mild decrease in breath sounds, no wheezes. HEART: Regular rate and rhythm, S1, S2. No S3. No rub. ABDOMEN: Soft, nontender. EXTREMITIES: Mild edema. LAB DATA: Revealed BUN and creatinine 2.01 and 59 which is worse than yesterday. Hemoglobin of 14, potassium 4.2. IMPRESSION: 1. Myocardial infarction, non ST-segment elevation. 2. Congestive heart failure, status post thoracentesis. 3. Worsening renal function. 4. Ischemic cardiomyopathy. 5. History of atrial flutter, in sinus mechanism at this time. RECOMMENDATION: Patient was scheduled to undergo cardiac catheterization today, but because of the worsening renal function, that will be held. He will be evaluated by Dr. Epps and probably undergo cardiac catheterization early next week. MMODL / IJN: [id number] /
[2018-12-02 11:53] LABS: Glucose,Whole Blood 147 mg/dL (75-99)
--- NOTE | 2018-12-02 12:12 | P.PN ---
Subjective Progress Note Date: 12/02/18 Principal diagnosis: subacute myocardial infarction and congestive heart failure/systolic This is a 78-year-old white male with history of paroxysmal atrial flutter status post transesophageal echo and cardioversion in August of 2018. Patient has been following up [facility] for his cardiac issues. Although his previous cardioversion was done by few months back. Patient is also known to have history of type 2 diabetes, hypertension, and for the last week and a half, the patient has been complaining of shortness of breath and uncomfortable feeling in the chest. The uncomfortable feeling is described as heaviness in the chest. And this one and on for at least a day or so. He shortness of breath has become more progressive over the last week and a half, he was seen in the [facility] and he was sent to the emergency room for further evaluation. Upon presentation to the ER, patient was noted to be short of breath, chest x-ray showed evidence of pulmonary edema with bilateral pleural effusions, seen by cardiology while in the ER, his EKG was suggestive of inferior posterior wall AL, and patient was placed on Lasix drip, heparin, admitted to the intensive care unit, and I was asked to see him on consultation. Patient diuresed about 1 L of fluid overnight, however his chest x-ray continues to show bilateral pleural effusions, and I went ahead today and performed a right sided thoracentesis, I was able to drain about 900 mL of fluid from the right pleural space. The amount of the fluid on the left side was felt to be minimal, hence no need to perform thoracentesis on the left side at this point. In the meantime the patient was placed back on heparin, placed back on his cardiac meds, remains on diuretics, and may give a require cardiac catheterization. However his renal functioning has been noted to be compromise, and needs to be monitored. His CBC on admission showed WBC count of 11.8 hemoglobin of 13.8, his BUN was 31, and creatinine of 1.56. Blood sugar was noted to be 440, hence the patient was started on insulin drip upon arrival to the ICU last night. Troponin was significantly elevated at 26.4 and his BNP level was 23,300. Influenza screen was negative. Patient was reevaluated today on 12/02/2018, patient is feeling better, breathing a lot easier, his chest x-ray showed improvement, hardly any fluid in both lungs except for a small tiny right-sided pleural effusion/residual from his last thoracentesis. Patient is being considered for possible cardiac catheterization today. However his renal functioning is a bit worse today compared to yesterday.BUN is 59 and creatinine is 2.01. Patient is off Lasix drip, however he is on Lasix IV push. His urine output is excellent. Patient has no cough no wheezing no shortness of breath no chest pain. All labs were reviewed today, he has a bit of leukocytosis with WBC count of 19.5, otherwise CBC is normal, and renal profile as noted above. Chest x-ray as noted earlier. Objective - Vital Signs Vital signs: Vital Signs Temp 97.7 F 12/02/18 08:00 Pulse 66 12/02/18 12:03 Resp 17 12/02/18 10:00 BP 115/86 12/02/18 10:00 Pulse Ox 98 12/02/18 10:00 Intake & Output 12/01/18 12/02/18 12/02/18 18:59 06:59 18:59 Intake Total 294.201 407.517 60 Output Total 1195 685 300 Balance -900.799 -277.483 -240 Weight 83.7 kg 84.2 kg Intake: IV 260 240 60 0.9 NACL 240 240 60 Lasix 20 Intake, IV Titration 34.201 167.517 0 Amount Heparin Sod,Pork in 0.45% 5.517 167.517 0 NaCl 25,000 unit In 0.45 % NaCl 1 250ml.bag @ 800 UNIT/HR 8 mls/hr IV .Q24H [facility] Rx#:[id number] Insulin Regular 100 unit 28.684 In Sodium Chloride 0.9% 100 ml @ Per Protocol IV .Q0M [facility] Rx#:[id number] Output: Urine 1195 685 300 Other: Voiding Method Indwelling Catheter Indwelling Catheter Indwelling Catheter - Exam Physical Exam: Revealed a 78-year-old white male in no distress, Head: Atraumatic, normocephalic. HEENT:[Neck is supple.] [No neck masses.] [No thyromegaly.] [No JVD.] Chest: [clear breath sound bilaterally no crackles or rhonchi or wheezes, symmetrical chest expansion, no chest wall tenderness. Cardiac Exam: [Normal S1 and S2, no S3 gallop, 2/6 systolic ejection murmur at the left sternal border. Abdomen: [Soft, nontender, no megaly, no rebound, no guarding, normal bowel sounds.] Extremities: [Chronic venous stasis changes, 1+ bipedal edema, diminished distal pulses bilaterally. Neurological Exam: Alert and oriented 3, [No focal neurologic deficit.] Psychiatric: Normal mood, affect and mental status examination. Skin: No rashes. Pharynx: No lymphadenopathy. - Labs CBC & Chem 7: 12/02/18 04:36 12/02/18 04:36 Labs: Abnormal Lab Results - Last 24 Hours (Table) 12/01/18 12/01/18 12/01/18 Range/Units 05:38 12:07 12:12 WBC (3.8-10.6) k/uL Neutrophils # (1.3-7.7) k/uL Lymphocytes # (1.0-4.8) k/uL Monocytes # (0-1.0) k/uL APTT (22.0-30.0) sec Sodium (137-145) mmol/L BUN (9-20) mg/dL Creatinine (0.66-1.25) mg/dL Glucose (74-99) mg/dL POC Glucose (mg/dL) 325 H 322 H (75-99) mg/dL Hemoglobin A1c 7.8 H (4.0-6.0) % Calcium (8.4-10.2) mg/dL Phosphorus (2.5-4.5) mg/dL 12/01/18 12/01/18 12/01/18 Range/Units 13:12 14:05 15:14 WBC (3.8-10.6) k/uL Neutrophils # (1.3-7.7) k/uL Lymphocytes # (1.0-4.8) k/uL Monocytes # (0-1.0) k/uL APTT (22.0-30.0) sec Sodium (137-145) mmol/L BUN (9-20) mg/dL Creatinine (0.66-1.25) mg/dL Glucose (74-99) mg/dL POC Glucose (mg/dL) 195 H 189 H 179 H (75-99) mg/dL Hemoglobin A1c (4.0-6.0) % Calcium (8.4-10.2) mg/dL Phosphorus (2.5-4.5) mg/dL 12/01/18 12/01/18 12/01/18 Range/Units 16:04 17:10 20:35 WBC (3.8-10.6) k/uL Neutrophils # (1.3-7.7) k/uL Lymphocytes # (1.0-4.8) k/uL Monocytes # (0-1.0) k/uL APTT (22.0-30.0) sec Sodium (137-145) mmol/L BUN (9-20) mg/dL Creatinine (0.66-1.25) mg/dL Glucose (74-99) mg/dL POC Glucose (mg/dL) 195 H 174 H 259 H (75-99) mg/dL Hemoglobin A1c (4.0-6.0) % Calcium (8.4-10.2) mg/dL Phosphorus (2.5-4.5) mg/dL 12/01/18 12/02/18 12/02/18 Range/Units 21:18 01:37 04:36 WBC (3.8-10.6) k/uL Neutrophils # (1.3-7.7) k/uL Lymphocytes # (1.0-4.8) k/uL Monocytes # (0-1.0) k/uL APTT 37.8 H (22.0-30.0) sec Sodium 135 L (137-145) mmol/L BUN 59 H (9-20) mg/dL Creatinine 2.01 H (0.66-1.25) mg/dL Glucose 170 H (74-99) mg/dL POC Glucose (mg/dL) 217 H (75-99) mg/dL Hemoglobin A1c (4.0-6.0) % Calcium 8.1 L (8.4-10.2) mg/dL Phosphorus 4.8 H (2.5-4.5) mg/dL 12/02/18 12/02/18 12/02/18 Range/Units 04:36 07:09 11:51 WBC 19.5 H (3.8-10.6) k/uL Neutrophils # 17.7 H (1.3-7.7) k/uL Lymphocytes # 0.5 L (1.0-4.8) k/uL Monocytes # 1.1 H (0-1.0) k/uL APTT (22.0-30.0) sec Sodium (137-145) mmol/L BUN (9-20) mg/dL Creatinine (0.66-1.25) mg/dL Glucose (74-99) mg/dL POC Glucose (mg/dL) 148 H 147 H (75-99) mg/dL Hemoglobin A1c (4.0-6.0) % Calcium (8.4-10.2) mg/dL Phosphorus (2.5-4.5) mg/dL Microbiology - Last 24 Hours (Table) 12/01/18 10:45 Gram Stain - Preliminary Pleural Fluid Body Fluid Culture - Preliminary 11/30/18 11:56 Blood Culture - Preliminary Blood No Growth after 24 hours Assessment and Plan Assessment: Impression: 1 subacute inferoposterior myocardial infarction 2 acute congestive heart failure secondary to subacute myocardial infarction, suspect ischemic cardiomyopathy and LV dysfunction. 3 type 2 diabetes, on insulin patient is normally on glipizide insulin and metformin. 4 hypertension, patient is normally on Lopressor 5 hyperlipidemia 6 history of atrial flutter requiring cardioversion in August of 2018. 7 history of underlying coronary artery disease, and previous PCI. 8 status post right sided thoracentesis, fluid was reviewed today, and it is transudative in nature, this is cardiac in nature and not related to infection. Recommendation: Continue present treatment plan including diuretics, beta blockers, anticoagulations therapy/heparin,. Discussed his condition with cardiology on the case. We'll continue to follow. Patient will be monitored in the intensive care unit. prognosis remains relatively guarded. Patient is off insulin drip also today. He is on sliding scale. We'll continue to monitor in the ICU, and we will follow Time with Patient: Less than 30
[2018-12-02] MEDS: LOSARTAN 25 MG TAB PO SCH (12:49)
[2018-12-02] MEDS: AMOXIC-POT CLAV 875-125MG 1 EACH TAB PO SCH ×2 (12:50→20:50)
[2018-12-02] MEDS: SODIUM CHLORIDE 0.9% 1,000 ML IV SCH (13:42)
[2018-12-02] MEDS: FUROSEMIDE 40 MG TAB PO SCH (15:41)
[2018-12-02] MEDS ORDERED: MINERAL OIL-WHITE PETROLATUM 120 GM JAR TOPICAL PRN (16:49)
[2018-12-02 16:55] LABS: Glucose,Whole Blood 261 mg/dL (75-99)
--- NOTE | 2018-12-02 18:30 | P.PN ---
Subjective This is a pleasant 78 years old male with past medical history of atrial fibrillation, diabetes mellitus, hyperlipidemia, osteoarthritis, congestive heart failure and ischemic heart disease. Patient presents because of worsening dyspnea over one week duration with no chest pain however he has some cough and yellow phlegm. No palpitation or dizziness, no change in urine or bowel habits. No fever. Patient blood pressure is stable at 146/82, saturating 92% on 4 L, he is afebrile. He has mild leukocytosis of 11.9 K, sodium 136, creatinine 1.5 which is close to baseline, glucose 471. Troponin 13.8, influenza is negative. Chest x-ray: Stable bilateral infiltrates suspicious for pneumonia, possible CHF as per radiologist report. EKG showing normal sinus rhythm at [address] depression in V2 to V6. QTC 510. In the emergency room he got aspirin, Coreg and Lasix once. Patient was started on Lasix drip and heparin drip. He is on losartan metoprolol as well. 12/01/2018 patient is seen today in the ICU. His resting comfortably and feels better. His feeling was better. Still no chest pain. Dry cough.vitals his stable although he isn't tachypneic. Saturating 99% on 4 L oxygen via NC.creatinine is 1.69. Troponins are elevated at 13.8, 28.6, 20.2. Patient is been followed closely by cardiology and pulmonary/critical care team.the plan for cardiac cath tomorrow. 12/02/2018 Patient remains in the ICU, he looks tired and lethargic. Denies overt chest pain, limits rapid breathing. No coughing. He Tolerated Diet Well. Patient Is Supposed to Go for Cardiac Cath Today However His Kidney Function Was Trending up from 1.6 to 2.0. Patient Was Placed Back on Heparin Drip. Sugar was running between 147-60. Patient states that he was taking 50 units of insulin 70:30 twice a day. Yesterday we started him on insulin therapy 30 units at bedtime, however today was started eating more and we increased his insulin dose to 30 units twice a day, plus sliding scale. Vitas looks stable. He still have leukocytosis of 19.5 K. Chest x-ray: Trace pleural effusion. Status post thoracocentesis. Patient is being followed closely in the intensive care unit by cardiology and pulmonary team. Today also patient was placed on Lasix 40 mg twice a day. CONSTITUTIONAL: No fever, no malaise, no fatigue. HEENT: No recent visual problems or hearing problems. Denied any sore throat. CARDIOVASCULAR: no palpitations, no syncope. PULMONARY:, no hemoptysis. GASTROINTESTINAL: No diarrhea, no nausea, no vomiting, no abdominal pain. Normoactive bowel sounds. NEUROLOGICAL: No headaches, no weakness, no numbness. HEMATOLOGICAL: Denies any bleeding or petechiae. GENITOURINARY: Denies any burning micturition, frequency, or urgency. MUSCULOSKELETAL/RHEUMATOLOGICAL: Denies any joint pain, swelling, or any muscle pain. ENDOCRINE: Denies any polyuria or polydipsia. medication: Albuterol, Augmentin, aspirin, Coreg, Lasix, losartan, salmeterol, Protonix, and heparin drip. Objective - Vital Signs Vital signs: Vital Signs Temp 98.0 F 12/02/18 16:00 Pulse 68 12/02/18 17:00 Resp 24 12/02/18 17:00 BP 118/83 12/02/18 17:00 Pulse Ox 99 12/02/18 17:00 Intake & Output 12/01/18 12/02/18 12/02/18 18:59 06:59 18:59 Intake Total 294.201 407.517 220 Output Total 1195 685 905 Balance -900.799 -277.483 -685 Weight 83.7 kg 84.2 kg Intake: IV 260 240 220 0.9 NACL 240 240 220 Lasix 20 Intake, IV Titration 34.201 167.517 0 Amount Heparin Sod,Pork in 0.45% 5.517 167.517 0 NaCl 25,000 unit In 0.45 % NaCl 1 250ml.bag @ 800 UNIT/HR 8 mls/hr IV .Q24H [facility] Rx#:[id number] Insulin Regular 100 unit 28.684 In Sodium Chloride 0.9% 100 ml @ Per Protocol IV .Q0M [facility] Rx#:[id number] Output: Urine 1195 685 905 Other: Voiding Method Indwelling Catheter Indwelling Catheter Indwelling Catheter - Exam GENERAL: The patient is alert and oriented x3, not in any acute distress. Well developed, well nourished. HEENT: Pupils are round and equally reacting to light. EOMI. No scleral icterus. No conjunctival pallor. Normocephalic, atraumatic. No pharyngeal erythema. No thyromegaly. CARDIOVASCULAR: S1 and S2 present. No murmurs, rubs, or gallops. -PULMONARY: Chest is clear to auscultation, scattered bilateral wheezing and basal crackles. ABDOMEN: Soft, nontender, nondistended, normoactive bowel sounds. No palpable organomegaly. MUSCULOSKELETAL: No joint swelling or deformity. EXTREMITIES: No cyanosis, clubbing, or pedal edema. NEUROLOGICAL: Gross neurological examination did not reveal any focal deficits. SKIN: No rashes. - Labs CBC & Chem 7: 12/02/18 04:36 12/02/18 04:36 Labs: Abnormal Lab Results - Last 24 Hours (Table) 12/01/18 12/01/18 12/02/18 Range/Units 20:35 21:18 01:37 WBC (3.8-10.6) k/uL Neutrophils # (1.3-7.7) k/uL Lymphocytes # (1.0-4.8) k/uL Monocytes # (0-1.0) k/uL APTT 37.8 H (22.0-30.0) sec Sodium (137-145) mmol/L BUN (9-20) mg/dL Creatinine (0.66-1.25) mg/dL Glucose (74-99) mg/dL POC Glucose (mg/dL) 259 H 217 H (75-99) mg/dL Calcium (8.4-10.2) mg/dL Phosphorus (2.5-4.5) mg/dL 12/02/18 12/02/18 12/02/18 Range/Units 04:36 04:36 07:09 WBC 19.5 H (3.8-10.6) k/uL Neutrophils # 17.7 H (1.3-7.7) k/uL Lymphocytes # 0.5 L (1.0-4.8) k/uL Monocytes # 1.1 H (0-1.0) k/uL APTT (22.0-30.0) sec Sodium 135 L (137-145) mmol/L BUN 59 H (9-20) mg/dL Creatinine 2.01 H (0.66-1.25) mg/dL Glucose 170 H (74-99) mg/dL POC Glucose (mg/dL) 148 H (75-99) mg/dL Calcium 8.1 L (8.4-10.2) mg/dL Phosphorus 4.8 H (2.5-4.5) mg/dL 12/02/18 12/02/18 Range/Units 11:51 16:54 WBC (3.8-10.6) k/uL Neutrophils # (1.3-7.7) k/uL Lymphocytes # (1.0-4.8) k/uL Monocytes # (0-1.0) k/uL APTT (22.0-30.0) sec Sodium (137-145) mmol/L BUN (9-20) mg/dL Creatinine (0.66-1.25) mg/dL Glucose (74-99) mg/dL POC Glucose (mg/dL) 147 H 261 H (75-99) mg/dL Calcium (8.4-10.2) mg/dL Phosphorus (2.5-4.5) mg/dL Microbiology - Last 24 Hours (Table) 11/30/18 11:56 Blood Culture - Preliminary Blood No Growth after 48 hours 12/01/18 10:45 Gram Stain - Preliminary Pleural Fluid Body Fluid Culture - Preliminary Assessment and Plan Assessment: Elevated troponin, mostly Non-STEMI Possible acute on chronic congestive heart failure Less likely patient has pneumonia History of coronary artery disease History of congestive heart failure History of atrial fibrillation Diabetes mellitus Hyperlipidemia Plan: This is a pleasant 78 years old male who presents because of the STEMI and acute CHF, continue with diuretics, heparin drip, continue with beta blockers and MELIA inhibitor. Cardiology consult. Continue with antibiotics. Labs and medication were reviewed.. Continue same treatment. Continue with symptomatic treatment. Resume home medication. Monitor lytes and vitals. DVT and GI prophylaxis. Further recommendations of the clinical course of the patient DVT prophylaxis: heparin GI Prophylaxis: Pepcid Prognosis is guarded
[2018-12-02] MEDS: INSULIN DETEMIR (LEVEMIR) 100 UNIT/ML SYR SQ SCH ×2 (18:47→20:51)
[2018-12-02 20:34] LABS: Glucose,Whole Blood 382 mg/dL (75-99)
[2018-12-03] MEDS: HEPARIN SOD,PORK IN 0.45% NACL 25,000 UNIT in 0.45% NACL 1 250ML.BAG IV SCH ×2 (00:11→20:32)
[2018-12-03] MEDS: methylPREDNISolone SOD SUCCI 40 MG/ML 1 ML VIAL IV SCH ×4 (00:11→23:46)
[2018-12-03 01:49] LABS: Glucose,Whole Blood 198 mg/dL (75-99)
[2018-12-03 01:59] LABS: Glucose,Whole Blood 242 mg/dL (75-99)
[2018-12-03] MEDS: INSULIN ASPART (NovoLOG) 100 UNIT/ML VIAL SQ SCH ×5 (02:20→20:58)
[2018-12-03 04:44] LABS: HCT 44.1 % (39.0-53.0); HGB 14.1 gm/dL (13.0-17.5); Hypochromasia Moderate; MCH 27.5 pg (25.0-35.0); MCHC 31.9 g/dL (31.0-37.0); MCV 86.1 fL (80.0-100.0); Mean Platelet Volume 7.4; Platelet Count 305 k/uL (150-450); Poikilocytosis Slight; RBC 5.12 m/uL (4.30-5.90); RDW 14.3 % (11.5-15.5); WBC 17.7 k/uL (3.8-10.6)
[2018-12-03 06:56] LABS: Glucose,Whole Blood 74 mg/dL (75-99)
[2018-12-03] MEDS: CARVEDILOL 3.125 MG TAB PO SCH ×2 (07:22→16:32)
[2018-12-03 07:29] LABS: Calcium 8.1 mg/dL (8.4-10.2); Potassium 4.9 mmol/L (3.5-5.1)
[2018-12-03 08:11] LABS: Glucose,Whole Blood 159 mg/dL (75-99)
[2018-12-03] MEDS: IPRATROPIUM-ALBUTEROL 3 ML NEB INHALATION SCH ×4 (08:23→20:47)
[2018-12-03] MEDS: AMOXIC-POT CLAV 875-125MG 1 EACH TAB PO SCH ×2 (09:45→20:34)
[2018-12-03] MEDS: ASPIRIN 81 MG PO SCH (09:45)
[2018-12-03] MEDS: INSULIN DETEMIR (LEVEMIR) 100 UNIT/ML SYR SQ SCH ×2 (09:46→20:58)
[2018-12-03] MEDS: PANTOPRAZOLE 40 MG TABLET PO SCH (09:46)
[2018-12-03] MEDS: LOSARTAN 25 MG TAB PO SCH (09:46)
[2018-12-03] MEDS: FUROSEMIDE 40 MG TAB PO SCH ×2 (09:46→16:14)
[2018-12-03 11:49] LABS: Glucose,Whole Blood 128 mg/dL (75-99)
--- NOTE | 2018-12-03 11:53 | P.CRDCN ---
History of Present Illness History of present illness: Patient is a 78-year-old male with new onset of congestive heart failure and diagnosis of non-ST elevation MT. Due to elevated kidney function, coronary angiography has been deferred at this time. He continues to be on IV heparin. Chest x-ray showed large pleural effusion, which was drained via thoracentesis. Echocardiogram shows EF of 4045% with posterior, inferior lateral, and inferior hypokinesis; mild mitral and tricuspid regurgitation; and mild pulmonary hypertension. On interview this morning, he states he is doing well. He denies any chest discomfort, shortness of breath, or palpitations. He states he has chronic lower extremity edema. Labs this morning show elevated white blood cell count at 17.7, hemoglobin 14.1, platelet count 305, potassium 4.9, creatinine 1.74 which is improved from 2.0 yesterday, GFR 37. Vital signs are stable, with blood pressures well controlled. Heart rates are in the 60s. Oxygen saturations in the high 90s on room air. Review of Systems CONSTITUTIONAL: Denies fever. Denies chills. EYES: Denies blurred vision. Denies vision changes. Denies eye pain. EARS, NOSE, MOUTH & THROAT: Denies headache. Denies sore throat. Denies ear pain. CARDIOVASCULAR: Denies chest pain. Denies shortness of breath. Denies orthopnea. Denies PND. Denies palpitations. RESPIRATORY: Denies cough. GASTROINTESTINAL: Denies abdominal pain. Denies diarrhea. Denies constipation. Denies nausea. Denies vomiting. MUSCULOSKELETAL: Chronic lower extremity edema. Denies myalgias. INTEGUMENTARY: Denies pruitis. Denies rash. NEUROLOGIC: Denies numbness. Denies tingling. Denies weakness ENDOCRINE: Denies fatigue. Denies weight change. Denies polydipsia. Denies polyurina. GENITOURINARY: Denies burning, hematuria or urgency with micturation. HEMATOLOGIC: Denies history of anemia. Denies bleeding. Past Medical History Past Medical History: Atrial Flutter, Diabetes Mellitus, Hyperlipidemia, Osteoarthritis (OA), Prostate Disorder Additional Past Medical History / Comment(s): See Dr Epps's H&P History of Any Multi-Drug Resistant Organisms: None Reported Past Surgical History: Appendectomy, Heart Catheterization With Stent Additional Past Surgical History / Comment(s): Cataracts Past Anesthesia/Blood Transfusion Reactions: No Reported Reaction Date of Last Stent Placement:: unsure Past Psychological History: No Psychological Hx Reported Smoking Status: Former smoker Past Alcohol Use History: None Reported Additional Past Alcohol Use History / Comment(s): smoked 2 months in 1963; quit drinking 1973 Past Drug Use History: None Reported - Past Family History Mother Family Medical History: Myocardial Infarction (MT) Additional Family Medical History / Comment(s): age 64 Medications and Allergies Home Medications Medication Instructions Recorded Confirmed Type Apixaban [Eliquis] 5 mg PO BID 08/09/18 11/30/18 History Furosemide [Lasix] 40 mg PO DAILY 08/09/18 11/30/18 History Potassium Chloride [K-Tab ER] 10 meq PO BID 08/09/18 11/30/18 History Spironolactone 12.5 mg PO DAILY 08/09/18 11/30/18 History Tamsulosin [Flomax] 0.4 mg PO BID 08/09/18 11/30/18 History glipiZIDE [Glucotrol] 10 mg PO AC-BID 08/09/18 11/30/18 History metFORMIN HCL 1,000 mg PO DAILY 08/09/18 11/30/18 History Metoprolol Tartrate [Lopressor] 50 mg PO BID 08/12/18 11/30/18 History Insulin NPH Hum/Reg Insulin Hm 60 unit SQ BID 11/30/18 11/30/18 History [Novolin 70-30 Flexpen] Isosorbide Mononitrate ER [Imdur] 90 mg PO DAILY 11/30/18 11/30/18 History Rosuvastatin Calcium 40 mg PO DAILY 11/30/18 11/30/18 History amLODIPine [Norvasc] 5 mg PO BID 11/30/18 11/30/18 History Allergies Allergy/AdvReac Type Severity Reaction Status Date / Time atorvastatin [From Lipitor] Allergy Unknown Verified 11/30/18 12:24 Physical Exam Vitals: Vital Signs Temp Pulse Resp BP Pulse Ox 12/03/18 11:00 60 18 124/72 96 12/03/18 10:00 63 21 115/67 98 12/03/18 09:00 63 18 111/56 97 12/03/18 08:35 65 12/03/18 08:23 66 96 12/03/18 08:00 97.5 F L 65 21 124/75 96 12/03/18 07:00 60 22 127/75 100 12/03/18 06:00 66 21 119/67 99 12/03/18 05:00 57 L 17 110/63 99 12/03/18 04:00 97.8 F 58 L 17 114/69 99 12/03/18 03:00 60 17 122/80 99 12/03/18 02:00 63 14 120/63 99 12/03/18 01:00 60 15 118/77 98 12/03/18 00:00 97.5 F L 63 24 124/71 96 12/02/18 23:00 65 21 125/72 96 12/02/18 22:00 64 20 129/74 96 12/02/18 21:00 65 16 124/77 96 12/02/18 20:02 68 12/02/18 20:00 98.1 F 70 15 118/68 99 12/02/18 19:53 70 12/02/18 19:00 69 17 111/58 96 12/02/18 18:00 70 23 119/67 96 12/02/18 17:00 68 24 118/83 99 12/02/18 16:21 70 12/02/18 16:11 69 12/02/18 16:00 98.0 F 71 13 116/67 96 12/02/18 15:00 68 22 107/61 96 12/02/18 14:00 64 19 102/55 95 12/02/18 13:00 70 12 115/77 92 L 12/02/18 12:13 66 12/02/18 12:03 66 12/02/18 12:00 98.2 F 64 27 H 120/81 95 Intake and Output 12/02/18 12/03/18 12/03/18 22:59 06:59 14:59 Intake Total 236.966 160 100 Output Total 600 805 475 Balance -363.035 -645 -550 Intake: IV 160 160 100 0.9 NACL 160 160 100 Intake, IV Titration 76.966 Amount Heparin Sod,Pork in 0.45% 76.966 NaCl 25,000 unit In 0.45 % NaCl 1 250ml.bag @ 800 UNIT/HR 8 mls/hr IV .Q24H [facility] Rx#:[id number] Output: Urine 600 805 475 Other: Voiding Method Indwelling Catheter Indwelling Catheter Weight 84.4 kg GENERAL: This is a 78-year-old male in no apparent distress at the time of my examination. HEENT: Head is atraumatic, normocephalic. Pupils are equal, round. Sclerae anicteric. Conjunctivae are clear. Mucous membranes of the mouth are moist. Neck is supple. There is no jugular venous distention. No carotid bruit is heard. LUNGS: Clear to auscultation no wheezes, rales or rhonchi. No chest wall tenderness is noted on palpation or with deep breathing. HEART: Regular rate and rhythm. Soft systolic murmur. S1 and S2 heard. ABDOMEN: Soft, nontender. Bowel sounds are heard. No organomegaly noted. EXTREMITIES: +2 lower extremity pitting edema. No calf tenderness noted. VASCULAR: Radial and dorsalis pedis pulses palpated, no evidence of clubbing. NEUROLOGIC: Patient is awake, alert and oriented x3. Results 12/03/18 04:29 12/03/18 06:06 Coagulation 12/02/18 12/03/18 Range/Units 19:00 04:29 APTT 43.1 H 74.9 H (22.0-30.0) sec CBC 12/03/18 Range/Units 04:29 WBC 17.7 H (3.8-10.6) k/uL RBC 5.12 (4.30-5.90) m/uL Hgb 14.1 (13.0-17.5) gm/dL Hct 44.1 (39.0-53.0) % Plt Count 305 (150-450) k/uL Comprehensive Metabolic Panel 12/03/18 Range/Units 06:06 Sodium 138 (137-145) mmol/L Potassium 4.9 (3.5-5.1) mmol/L Chloride 100 (98-107) mmol/L Carbon Dioxide 29 (22-30) mmol/L BUN 69 H (9-20) mg/dL Creatinine 1.74 H (0.66-1.25) mg/dL Glucose 60 L (74-99) mg/dL Calcium 8.1 L (8.4-10.2) mg/dL Current Medications Generic Name Dose Route Start Last Admin Trade Name Freq PRN Reason Stop Dose Admin Albuterol/Ipratropium 3 ml 03/27/19 20:00 12/03/18 08:23 Duoneb 0.5 Mg-3 Mg/3 Ml Soln INHALATION 3 ml RT-QID [facility] Administration Albuterol/Ipratropium 3 ml 11/30/18 19:27 Duoneb 0.5 Mg-3 Mg/3 Ml Soln INHALATION RT-Q2H PRN Shortness Of Breath Or Wheezing Amoxicillin/Clavulanate Potassium 1 each 11/30/18 21:00 12/03/18 09:45 Augmentin 875-125 PO 12/05/18 21:01 1 each BID [facility] Administration Aspirin 81 mg 12/01/18 09:00 12/03/18 09:45 Aspirin PO 81 mg DAILY [facility] Administration Carvedilol 3.125 mg 12/01/18 07:30 12/03/18 07:22 Coreg PO 3.125 mg BID-W/MEALS [facility] Administration Furosemide 40 mg 12/02/18 16:00 12/03/18 09:46 Lasix PO 40 mg BID@0900,1600 [facility] Administration Heparin Sodium (Porcine) 0 unit 12/01/18 08:59 12/02/18 19:59 Heparin IV 2,100 unit PER PROTOCOL PRN Administration Low PTT Protocol Sodium Chloride 1,000 mls @ 20 mls/hr 11/30/18 14:30 12/02/18 13:42 Saline 0.9% IV 20 mls/hr .Q24H [facility] Administration Heparin Sodium/Sodium Chloride 250 mls @ 8 mls/hr 12/01/18 08:35 12/03/18 00:11 25,000 unit/ Sodium Chloride IV 1,318 unit/hr .Q24H [facility] 13.18 mls/hr Administration Protocol 800 UNIT/HR Insulin Aspart 0 unit 12/01/18 17:30 12/03/18 07:22 Novolog SQ Not Given [id number] [facility] Protocol Insulin Detemir 30 unit 12/02/18 17:19 12/03/18 09:46 Levemir SQ 30 unit BID [facility] Administration Losartan Potassium 25 mg 11/30/18 14:30 12/03/18 09:46 Cozaar PO 25 mg DAILY [facility] Administration Methylprednisolone Sodium Succinate 40 mg 11/30/18 19:30 12/03/18 09:45 Solu-Medrol IV 40 mg Q8HR [facility] Administration Multi-Ingred Cream/Lotion/Oil/Oint 1 applic 12/02/18 16:49 Eucerin Cream TOPICAL BID PRN Dry Skin Naloxone HCl 0.2 mg 11/30/18 14:19 Narcan IV Q2M PRN Opioid Reversal Pantoprazole Sodium 40 mg 12/03/18 09:00 12/03/18 09:46 Protonix PO 40 mg DAILY [facility] Administration Pravastatin Sodium 20 mg 12/03/18 21:00 Pravachol PO HS [facility] Intake and Output 12/02/18 12/03/18 12/03/18 22:59 06:59 14:59 Intake Total 236.966 160 100 Output Total 600 805 475 Balance -363.034 -645 -375 Intake: IV 160 160 100 0.9 NACL 160 160 100 Intake, IV Titration 76.966 Amount Heparin Sod,Pork in 0.45% 76.966 NaCl 25,000 unit In 0.45 % NaCl 1 250ml.bag @ 800 UNIT/HR 8 mls/hr IV .Q24H [facility] Rx#:[id number] Output: Urine 600 805 475 Other: Voiding Method Indwelling Catheter Indwelling Catheter Weight 84.4 kg 12/03/18 04:29 12/03/18 06:06 Assessment and Plan Assessment: FINAL ASSESSMENT AND PLAN: 1. Acute Myocardial infarction, NSTEMI. 2. Congestive heart failure. 3. Ischemic cardiomyopathy, EF 4045%. 4. History of atrial flutter, maintaining sinus rhythm. 5. Acute renal failure, improving PLAN: We will start the patient on pravastatin 40 mg daily. Patient states he was previously on atorvastatin, however stopped for unknown reason. He denies any myalgias without being on the medication. Continue IV heparin. Continue to monitor liver and renal function. Coronary angiography will be considered as renal function improves.
--- NOTE | 2018-12-03 13:00 | P.PN ---
Subjective Progress Note Date: 12/03/18 Principal diagnosis: subacute myocardial infarction and congestive heart failure/systolic This is a 78-year-old white male with history of paroxysmal atrial flutter status post transesophageal echo and cardioversion in August of 2018. Patient has been following up at the [place] [facility] for his cardiac issues. Although his previous cardioversion was done by few months back. Patient is also known to have history of type 2 diabetes, hypertension, and for the last week and a half, the patient has been complaining of shortness of breath and uncomfortable feeling in the chest. The uncomfortable feeling is described as heaviness in the chest. And this one and on for at least a day or so. He shortness of breath has become more progressive over the last week and a half, he was seen in the [place] [facility] and he was sent to the emergency room for further evaluation. Upon presentation to the ER, patient was noted to be short of breath, chest x-ray showed evidence of pulmonary edema with bilateral pleural effusions, seen by cardiology while in the ER, his EKG was suggestive of inferior posterior wall [place], and patient was placed on Lasix drip, heparin, admitted to the intensive care unit, and I was asked to see him on consultation. Patient diuresed about 1 L of fluid overnight, however his chest x-ray continues to show bilateral pleural effusions, and I went ahead today and performed a right sided thoracentesis, I was able to drain about 900 mL of fluid from the right pleural space. The amount of the fluid on the left side was felt to be minimal, hence no need to perform thoracentesis on the left side at this point. In the meantime the patient was placed back on heparin, placed back on his cardiac meds, remains on diuretics, and may give a require cardiac catheterization. However his renal functioning has been noted to be compromise, and needs to be monitored. His CBC on admission showed WBC count of 11.8 hemoglobin of 13.8, his BUN was 31, and creatinine of 1.56. Blood sugar was noted to be 440, hence the patient was started on insulin drip upon arrival to the ICU last night. Troponin was significantly elevated at 26.4 and his BNP level was 23,300. Influenza screen was negative. Patient was reevaluated today on 12/02/2018, patient is feeling better, breathing a lot easier, his chest x-ray showed improvement, hardly any fluid in both lungs except for a small tiny right-sided pleural effusion/residual from his last thoracentesis. Patient is being considered for possible cardiac catheterization today. However his renal functioning is a bit worse today compared to yesterday.BUN is 59 and creatinine is 2.01. Patient is off Lasix drip, however he is on Lasix IV push. His urine output is excellent. Patient has no cough no wheezing no shortness of breath no chest pain. All labs were reviewed today, he has a bit of leukocytosis with WBC count of 19.5, otherwise CBC is normal, and renal profile as noted above. Chest x-ray as noted earlier. Reevaluated today on 12/03/2018, patient continues to do well, his cardiac catheterization was postponed until Wednesday mostly because of his worsening renal functioning. Pulmonary-gaspar the patient is doing better, breathing a lot easier, denies any cough no wheezing no shortness of breath. And his chest x- ray continues to show complete resolution of his bilateral pleural effusions and pulmonary edema. WBC count is a bit elevated at 17.7, PTT is therapeutic, electrolytes are normal renal profile is improving BUN is down to 69 creatinine is down to 1.74. Objective - Vital Signs Vital signs: Vital Signs Temp 97.9 F 12/03/18 12:00 Pulse 65 12/03/18 12:29 Resp 20 12/03/18 12:00 BP 115/67 12/03/18 12:00 Pulse Ox 97 12/03/18 12:00 Intake & Output 12/02/18 12/03/18 12/03/18 18:59 06:59 18:59 Intake Total 260 296.966 120 Output Total 1005 1080 575 Balance -745 -783.034 -455 Weight 84.4 kg Intake: IV 260 220 120 0.9 NACL 260 220 120 Intake, IV Titration 0 76.966 Amount Heparin Sod,Pork in 0.45% 0 76.966 NaCl 25,000 unit In 0.45 % NaCl 1 250ml.bag @ 800 UNIT/HR 8 mls/hr IV .Q24H [facility] Rx#:[id number] Output: Urine 1005 1080 575 Other: Voiding Method Indwelling Catheter Indwelling Catheter - Exam Physical Exam: Revealed a 78-year-old white male in no distress, Head: Atraumatic, normocephalic. HEENT:[Neck is supple.] [No neck masses.] [No thyromegaly.] [No JVD.] Chest: [clear breath sound bilaterally no crackles or rhonchi or wheezes, symmetrical chest expansion, no chest wall tenderness. Cardiac Exam: [Normal S1 and S2, no S3 gallop, 2/6 systolic ejection murmur at the left sternal border. Abdomen: [Soft, nontender, no megaly, no rebound, no guarding, normal bowel sounds.] Extremities: [Chronic venous stasis changes, negative edema, diminished pulses. Neurological Exam: Alert and oriented 3, [No focal neurologic deficit.] Psychiatric: Normal mood, affect and mental status examination. Skin: No rashes. Pharynx: No lymphadenopathy. - Labs CBC & Chem 7: 12/03/18 04:29 12/03/18 06:06 Labs: Abnormal Lab Results - Last 24 Hours (Table) 12/02/18 12/02/18 12/02/18 Range/Units 16:54 19:00 20:32 WBC (3.8-10.6) k/uL APTT 43.1 H (22.0-30.0) sec BUN (9-20) mg/dL Creatinine (0.66-1.25) mg/dL Glucose (74-99) mg/dL POC Glucose (mg/dL) 261 H 382 H (75-99) mg/dL Calcium (8.4-10.2) mg/dL 12/03/18 12/03/18 12/03/18 Range/Units 01:47 01:57 04:29 WBC (3.8-10.6) k/uL APTT 74.9 H (22.0-30.0) sec BUN (9-20) mg/dL Creatinine (0.66-1.25) mg/dL Glucose (74-99) mg/dL POC Glucose (mg/dL) 198 H 242 H (75-99) mg/dL Calcium (8.4-10.2) mg/dL 12/03/18 12/03/18 12/03/18 Range/Units 04:29 06:06 06:54 WBC 17.7 H (3.8-10.6) k/uL APTT (22.0-30.0) sec BUN 69 H (9-20) mg/dL Creatinine 1.74 H (0.66-1.25) mg/dL Glucose 60 L (74-99) mg/dL POC Glucose (mg/dL) 74 L (75-99) mg/dL Calcium 8.1 L (8.4-10.2) mg/dL 12/03/18 12/03/18 Range/Units 08:09 11:47 WBC (3.8-10.6) k/uL APTT (22.0-30.0) sec BUN (9-20) mg/dL Creatinine (0.66-1.25) mg/dL Glucose (74-99) mg/dL POC Glucose (mg/dL) 159 H 128 H (75-99) mg/dL Calcium (8.4-10.2) mg/dL Microbiology - Last 24 Hours (Table) 12/01/18 10:45 Gram Stain - Preliminary Pleural Fluid Body Fluid Culture - Preliminary 11/30/18 11:56 Blood Culture - Preliminary Blood No Growth after 48 hours Assessment and Plan Assessment: Impression: 1 subacute inferoposterior myocardial infarction 2 acute congestive heart failure secondary to subacute myocardial infarction, suspect ischemic cardiomyopathy and LV dysfunction. 3 type 2 diabetes, on insulin patient is normally on glipizide insulin and metformin. 4 hypertension, patient is normally on Lopressor 5 hyperlipidemia 6 history of atrial flutter requiring cardioversion in August of 2018. 7 history of underlying coronary artery disease, and previous PCI. 8 status post right sided thoracentesis, fluid was reviewed today, and it is transudative in nature, this is cardiac in nature and not related to infection. Recommendation: Continue present treatment plan including diuretics, beta blockers, anticoagulations therapy/heparin,. Patient will undergo cardiac catheterization on Wednesday, in the meantime patient could be transferred to a monitor bed on , and at that point will follow on when necessary basis. Time with Patient: Less than 30
--- NOTE | 2018-12-03 13:07 | P.PN ---
Subjective This is a pleasant 78 years old male with past medical history of atrial fibrillation, diabetes mellitus, hyperlipidemia, osteoarthritis, congestive heart failure and ischemic heart disease. Patient presents because of worsening dyspnea over one week duration with no chest pain however he has some cough and yellow phlegm. No palpitation or dizziness, no change in urine or bowel habits. No fever. Patient blood pressure is stable at 146/82, saturating 92% on 4 L, he is afebrile. He has mild leukocytosis of 11.9 K, sodium 136, creatinine 1.5 which is close to baseline, glucose 471. Troponin 13.8, influenza is negative. Chest x-ray: Stable bilateral infiltrates suspicious for pneumonia, possible CHF as per radiologist report. EKG showing normal sinus rhythm at [address] depression in V2 to V6. QTC 510. In the emergency room he got aspirin, Coreg and Lasix once. Patient was started on Lasix drip and heparin drip. He is on losartan metoprolol as well. 12/01/2018 patient is seen today in the ICU. His resting comfortably and feels better. His feeling was better. Still no chest pain. Dry cough.vitals his stable although he isn't tachypneic. Saturating 99% on 4 L oxygen via NC.creatinine is 1.69. Troponins are elevated at 13.8, 28.6, 20.2. Patient is been followed closely by cardiology and pulmonary/critical care team.the plan for cardiac cath tomorrow. 12/02/2018 Patient remains in the ICU, he looks tired and lethargic. Denies overt chest pain, limits rapid breathing. No coughing. He Tolerated Diet Well. Patient Is Supposed to Go for Cardiac Cath Today However His Kidney Function Was Trending up from 1.6 to 2.0. Patient Was Placed Back on Heparin Drip. Sugar was running between 147-60. Patient states that he was taking 50 units of insulin 70:30 twice a day. Yesterday we started him on insulin therapy 30 units at bedtime, however today was started eating more and we increased his insulin dose to 30 units twice a day, plus sliding scale. Vitas looks stable. He still have leukocytosis of 19.5 K. Chest x-ray: Trace pleural effusion. Status post thoracocentesis. Patient is being followed closely in the intensive care unit by cardiology and pulmonary team. Today also patient was placed on Lasix 40 mg twice a day. 12/03/2018 Patient feels well in the ICU His dyspnea looks better. No chest pain. His sugar was low normal this morning around 60-70. We lowered his ninth dose of Levemir from 30 down to 20 units Continue with daytime Levemir dose of 3 units.sugar is improved currently at 128. Creatinine is improved at 1.74.we will continue with IV heparin. Statin has been added by spar machine operator helper. Patient is planned to have coronary angiography. CONSTITUTIONAL: No fever, no malaise, no fatigue. HEENT: No recent visual problems or hearing problems. Denied any sore throat. CARDIOVASCULAR: no palpitations, no syncope. PULMONARY:, no hemoptysis. GASTROINTESTINAL: No diarrhea, no nausea, no vomiting, no abdominal pain. Normoactive bowel sounds. NEUROLOGICAL: No headaches, no weakness, no numbness. HEMATOLOGICAL: Denies any bleeding or petechiae. GENITOURINARY: Denies any burning micturition, frequency, or urgency. MUSCULOSKELETAL/RHEUMATOLOGICAL: Denies any joint pain, swelling, or any muscle pain. ENDOCRINE: Denies any polyuria or polydipsia. medication: Albuterol, Augmentin, aspirin, Coreg, Lasix, losartan, salmeterol, Protonix, and heparin drip. Objective - Vital Signs Vital signs: Vital Signs Temp 97.9 F 12/03/18 12:00 Pulse 65 12/03/18 12:29 Resp 20 12/03/18 12:00 BP 115/67 12/03/18 12:00 Pulse Ox 97 12/03/18 12:00 Intake & Output 12/02/18 12/03/18 12/03/18 18:59 06:59 18:59 Intake Total 260 296.966 120 Output Total 1005 1080 575 Balance -745 -783.034 -455 Weight 84.4 kg Intake: IV 260 220 120 0.9 NACL 260 220 120 Intake, IV Titration 0 76.966 Amount Heparin Sod,Pork in 0.45% 0 76.966 NaCl 25,000 unit In 0.45 % NaCl 1 250ml.bag @ 800 UNIT/HR 8 mls/hr IV .Q24H [facility] Rx#:[id number] Output: Urine 1005 1080 575 Other: Voiding Method Indwelling Catheter Indwelling Catheter - Exam GENERAL: The patient is alert and oriented x3, not in any acute distress. Well developed, well nourished. HEENT: Pupils are round and equally reacting to light. EOMI. No scleral icterus. No conjunctival pallor. Normocephalic, atraumatic. No pharyngeal erythema. No thyromegaly. CARDIOVASCULAR: S1 and S2 present. No murmurs, rubs, or gallops. -PULMONARY: Chest is clear to auscultation, scattered bilateral wheezing and basal crackles. ABDOMEN: Soft, nontender, nondistended, normoactive bowel sounds. No palpable organomegaly. MUSCULOSKELETAL: No joint swelling or deformity. EXTREMITIES: No cyanosis, clubbing, or pedal edema. NEUROLOGICAL: Gross neurological examination did not reveal any focal deficits. SKIN: No rashes. - Labs CBC & Chem 7: 12/03/18 04:29 12/03/18 06:06 Labs: Abnormal Lab Results - Last 24 Hours (Table) 12/02/18 12/02/18 12/02/18 Range/Units 16:54 19:00 20:32 WBC (3.8-10.6) k/uL APTT 43.1 H (22.0-30.0) sec BUN (9-20) mg/dL Creatinine (0.66-1.25) mg/dL Glucose (74-99) mg/dL POC Glucose (mg/dL) 261 H 382 H (75-99) mg/dL Calcium (8.4-10.2) mg/dL 12/03/18 12/03/18 12/03/18 Range/Units 01:47 01:57 04:29 WBC (3.8-10.6) k/uL APTT 74.9 H (22.0-30.0) sec BUN (9-20) mg/dL Creatinine (0.66-1.25) mg/dL Glucose (74-99) mg/dL POC Glucose (mg/dL) 198 H 242 H (75-99) mg/dL Calcium (8.4-10.2) mg/dL 12/03/18 12/03/18 12/03/18 Range/Units 04:29 06:06 06:54 WBC 17.7 H (3.8-10.6) k/uL APTT (22.0-30.0) sec BUN 69 H (9-20) mg/dL Creatinine 1.74 H (0.66-1.25) mg/dL Glucose 60 L (74-99) mg/dL POC Glucose (mg/dL) 74 L (75-99) mg/dL Calcium 8.1 L (8.4-10.2) mg/dL 12/03/18 12/03/18 Range/Units 08:09 11:47 WBC (3.8-10.6) k/uL APTT (22.0-30.0) sec BUN (9-20) mg/dL Creatinine (0.66-1.25) mg/dL Glucose (74-99) mg/dL POC Glucose (mg/dL) 159 H 128 H (75-99) mg/dL Calcium (8.4-10.2) mg/dL Microbiology - Last 24 Hours (Table) 12/01/18 10:45 Gram Stain - Preliminary Pleural Fluid Body Fluid Culture - Preliminary 11/30/18 11:56 Blood Culture - Preliminary Blood No Growth after 48 hours Assessment and Plan Assessment: Elevated troponin, mostly Non-STEMI Possible acute on chronic congestive heart failure Less likely patient has pneumonia History of coronary artery disease History of congestive heart failure History of atrial fibrillation Diabetes mellitus Hyperlipidemia Plan: This is a pleasant 78 years old male who presents because of the STEMI and acute CHF, continue with diuretics, heparin drip, continue with beta blockers and MELIA inhibitor. Cardiology consult. Continue with antibiotics. Labs and medication were reviewed.. Continue same treatment. Continue with symptomatic treatment. Resume home medication. Monitor lytes and vitals. DVT and GI prophylaxis. Further recommendations of the clinical course of the patient DVT prophylaxis: heparin GI Prophylaxis: Pepcid Prognosis is guarded
[2018-12-03] MEDS: SODIUM CHLORIDE 0.9% 1,000 ML IV SCH (16:14)
[2018-12-03 16:42] LABS: Glucose,Whole Blood 171 mg/dL (75-99)
[2018-12-03] MEDS: PRAVASTATIN SODIUM 20 MG TAB PO SCH (20:34)
[2018-12-03 20:50] LABS: Glucose,Whole Blood 221 mg/dL (75-99)
[2018-12-04 01:51] LABS: Glucose,Whole Blood 155 mg/dL (75-99)
[2018-12-04] MEDS: INSULIN ASPART (NovoLOG) 100 UNIT/ML VIAL SQ SCH ×5 (03:46→21:19)
[2018-12-04 06:03] LABS: Glucose,Whole Blood 155 mg/dL (75-99)
[2018-12-04] MEDS: CARVEDILOL 3.125 MG TAB PO SCH ×2 (06:33→17:32)
[2018-12-04] MEDS: IPRATROPIUM-ALBUTEROL 3 ML NEB INHALATION SCH ×4 (09:08→20:58)
[2018-12-04] MEDS: FUROSEMIDE 40 MG TAB PO SCH ×2 (09:22→16:49)
[2018-12-04] MEDS: methylPREDNISolone SOD SUCCI 40 MG/ML 1 ML VIAL IV SCH ×3 (09:22→23:14)
[2018-12-04] MEDS: AMOXIC-POT CLAV 875-125MG 1 EACH TAB PO SCH ×2 (09:22→20:23)
[2018-12-04] MEDS: LOSARTAN 25 MG TAB PO SCH (09:22)
[2018-12-04] MEDS: PANTOPRAZOLE 40 MG TABLET PO SCH (09:22)
[2018-12-04] MEDS: ASPIRIN 81 MG PO SCH (09:22)
[2018-12-04] MEDS: INSULIN DETEMIR (LEVEMIR) 100 UNIT/ML SYR SQ SCH ×2 (09:23→21:18)
--- NOTE | 2018-12-04 09:39 | P.PN ---
Subjective Progress Note Date: 12/04/18 IMPRESSION / ASSESSMENT: Acute non-ST elevated myocardial infarction Acute systolic heart failure with ischemic cardiomyopathy, EF 40-45% History of atrial flutter, currently in a sinus rhythm Acute renal failure PLAN: Continue heparin drip IV fluids and normal saline 50 mL per hour starting at 10 PM Repeat renal function testing in the morning to determine if patient may go for heart catheterization Nothing by mouth after midnight except for medications Continue aspirin 81 mg daily, Coreg 3.125 mg twice daily, Lasix 40 mg twice daily, losartan 25 mg daily, pravastatin 20 mg at bedtime HPI This is a 78-year-old male with new onset of congestive heart failure and diagnosis of non-ST elevation [place]. Due to elevated kidney function, coronary angiography has been deferred at this time. He continues to be on IV heparin. Chest x-ray showed large pleural effusion, which was drained via thoracentesis. Echocardiogram shows EF of 4045% with posterior, inferior lateral, and inferior hypokinesis; mild mitral and tricuspid regurgitation; and mild pulmonary hypertension. Patient states he is doing well. He denies any chest discomfort, shortness of breath, or palpitations. He states he has chronic lower extremity edema. Laboratory this morning is currently pending. Patient has been afebrile, heart rate in the 60s and 70s, blood pressure 148/77 and pulse ox 90% on room air. gambling monitor has been in sinus rhythm sinus bradycardia. ROS: No fever chills or rigors, no cough, phlegm or expectoration, no nausea, vomiting or diarrhea, no hematuria, dysuria, no musculoskeletal complaints, no strokes or seizures, no skin lesions. EXAMINATION: Gen: This is a 78-year-old male. Patient appears to be in no acute distress. HEENT: Head is atraumatic, normocephalic. Pupils equal, round. Sclerae is anicteric. NECK: Supple. No JVD. No lymphadenopathy. No thyromegaly. LUNGS: Crackles in the bases, coarse breath sounds. No intercostal retractions. HEART: Regular rate and rhythm. Soft systolic murmur. ABDOMEN: Soft. Bowel sounds are present. No masses. No tenderness. EXTREMITIES 2+ pedal edema. No calf tenderness. NEUROLOGICAL: Patient is awake, alert and oriented x3. Cranial nerves 2 through 12 are grossly intact. Nurse practitioner note has been reviewed, I agree with documented findings and plan of care. Patient was seen and examined. Objective - Vital Signs Vital signs: Vital Signs Temp 97.8 F 12/04/18 06:06 Pulse 70 12/04/18 09:18 Resp 16 12/04/18 08:00 BP 148/77 12/04/18 08:00 Pulse Ox 98 12/04/18 08:00 Intake & Output 12/03/18 12/04/18 12/04/18 18:59 06:59 18:59 Intake Total 240 250 Output Total 1165 1225 Balance -925 -975 Weight 83.9 kg Intake: IV 240 0.9 NACL 240 Intake, IV Titration 250 Amount Heparin Sod,Pork in 0.45% 250 NaCl 25,000 unit In 0.45 % NaCl 1 250ml.bag @ 800 UNIT/HR 8 mls/hr IV .Q24H [facility] Rx#:[id number] Output: Urine 1165 1225 Other: Voiding Method Indwelling Catheter Indwelling Catheter - Labs CBC & Chem 7: 12/03/18 04:29 12/03/18 06:06 Labs: Abnormal Lab Results - Last 24 Hours (Table) 12/03/18 12/03/18 12/03/18 Range/Units 11:47 16:40 20:45 APTT (22.0-30.0) sec POC Glucose (mg/dL) 128 H 171 H 221 H (75-99) mg/dL 12/04/18 12/04/18 12/04/18 Range/Units 01:48 06:01 07:46 APTT 79.3 H (22.0-30.0) sec POC Glucose (mg/dL) 155 H 155 H (75-99) mg/dL Microbiology - Last 24 Hours (Table) 11/30/18 11:56 Blood Culture - Preliminary Blood No Growth after 72 hours 12/01/18 10:45 Gram Stain - Preliminary Pleural Fluid Body Fluid Culture - Preliminary
[2018-12-04 11:55] LABS: Glucose,Whole Blood 194 mg/dL (75-99)
[2018-12-04 12:02] LABS: Basophils % (A) 0 %; Eosinophils # (A) 0.1 k/uL (0-0.7); Eosinophils % (A) 1 %; HCT 48.9 % (39.0-53.0); HGB 15.3 gm/dL (13.0-17.5); Hypochromasia Slight; Lymphocytes # (A) 0.3 k/uL (1.0-4.8); Lymphocytes % (A) 2 %; MCH 26.7 pg (25.0-35.0); MCHC 31.3 g/dL (31.0-37.0); MCV 85.3 fL (80.0-100.0); Mean Platelet Volume 8.4; Monocytes # (A) 0.5 k/uL (0-1.0); Monocytes % (A) 4 %; Neutrophils # (A) 14.5 k/uL (1.3-7.7); Neutrophils % (A) 92 %; Platelet Count 305 k/uL (150-450); RBC 5.73 m/uL (4.30-5.90); RDW 14.2 % (11.5-15.5); WBC 15.7 k/uL (3.8-10.6)
[2018-12-04 12:07] LABS: Calcium 8.1 mg/dL (8.4-10.2); Potassium 4.6 mmol/L (3.5-5.1)
--- NOTE | 2018-12-04 12:18 | P.PN ---
Subjective Progress Note Date: 12/04/18 Principal diagnosis: Subacute myocardial infarction with systolic congestive heart failure This is a 78-year-old white male with history of paroxysmal atrial flutter status post transesophageal echo and cardioversion in August of 2018. Patient has been following up at the [place] [facility] for his cardiac issues. Although his previous cardioversion was done by few months back. Patient is also known to have history of type 2 diabetes, hypertension, and for the last week and a half, the patient has been complaining of shortness of breath and uncomfortable feeling in the chest. The uncomfortable feeling is described as heaviness in the chest. And this one and on for at least a day or so. He shortness of breath has become more progressive over the last week and a half, he was seen in the [place] [facility] and he was sent to the emergency room for further evaluation. Upon presentation to the ER, patient was noted to be short of breath, chest x-ray showed evidence of pulmonary edema with bilateral pleural effusions, seen by cardiology while in the ER, his EKG was suggestive of inferior posterior wall AK, and patient was placed on Lasix drip, heparin, admitted to the intensive care unit, and I was asked to see him on consultation. Patient diuresed about 1 L of fluid overnight, however his chest x-ray continues to show bilateral pleural effusions, and I went ahead today and performed a right sided thoracentesis, I was able to drain about 900 mL of fluid from the right pleural space. The amount of the fluid on the left side was felt to be minimal, hence no need to perform thoracentesis on the left side at this point. In the meantime the patient was placed back on heparin, placed back on his cardiac meds, remains on diuretics, and may give a require cardiac catheterization. However his renal functioning has been noted to be compromise, and needs to be monitored. His CBC on admission showed WBC count of 11.8 hemoglobin of 13.8, his BUN was 31, and creatinine of 1.56. Blood sugar was noted to be 440, hence the patient was started on insulin drip upon arrival to the ICU last night. Troponin was significantly elevated at 26.4 and his BNP level was 23,300. Influenza screen was negative. Patient was reevaluated today on 12/02/2018, patient is feeling better, breathing a lot easier, his chest x-ray showed improvement, hardly any fluid in both lungs except for a small tiny right-sided pleural effusion/residual from his last thoracentesis. Patient is being considered for possible cardiac catheterization today. However his renal functioning is a bit worse today compared to yesterday.BUN is 59 and creatinine is 2.01. Patient is off Lasix drip, however he is on Lasix IV push. His urine output is excellent. Patient has no cough no wheezing no shortness of breath no chest pain. All labs were reviewed today, he has a bit of leukocytosis with WBC count of 19.5, otherwise CBC is normal, and renal profile as noted above. Chest x-ray as noted earlier. Reevaluated today on 12/03/2018, patient continues to do well, his cardiac catheterization was postponed until Wednesday mostly because of his worsening renal functioning. Pulmonary-gaspar the patient is doing better, breathing a lot easier, denies any cough no wheezing no shortness of breath. And his chest x- ray continues to show complete resolution of his bilateral pleural effusions and pulmonary edema. WBC count is a bit elevated at 17.7, PTT is therapeutic, electrolytes are normal renal profile is improving BUN is down to 69 creatinine is down to 1.74. The patient is seen today 12/04/2018 in follow-up on the selective care unit. He is currently awake and alert in no acute distress. Up ambulating in his room. He denies any worsening shortness of breath, cough or congestion. He is maintaining good O2 saturations in the 90s on room air. He has been afebrile. Hemodynamically stable. Pleural fluid culture reveals no growth. Blood culture reveals no growth. White count 15.7. Hemoglobin 15.3. Creatinine 1.50. Objective - Vital Signs Vital signs: Vital Signs Temp 97.8 F 12/04/18 06:06 Pulse 68 12/04/18 12:09 Resp 16 12/04/18 11:20 BP 148/87 12/04/18 11:17 Pulse Ox 93 L 12/04/18 11:17 Intake & Output 12/03/18 12/04/18 12/04/18 18:59 06:59 18:59 Intake Total 240 250 200 Output Total 1165 1225 Balance -925 -975 200 Weight 83.9 kg Intake: IV 240 0.9 NACL 240 Intake, IV Titration 250 Amount Heparin Sod,Pork in 0.45% 250 NaCl 25,000 unit In 0.45 % NaCl 1 250ml.bag @ 800 UNIT/HR 8 mls/hr IV .Q24H [facility] Rx#:[id number] Oral 200 Output: Urine 1165 1225 Other: Voiding Method Indwelling Catheter Indwelling Catheter # Voids 1 # Bowel Movements 1 - Exam GENERAL EXAM: Alert, active, comfortable in no apparent distress. On room air. HEAD: Normocephalic. EYES: Normal reaction of pupils, equal size. NOSE: Clear with pink turbinates. THROAT: No erythema or exudates. NECK: No masses, no JVD. CHEST: No chest wall deformity. LUNGS: Equal air entry with faint crackles in the posterior bases. CVS: S1 and S2 normal with no audible murmur, regular rhythm. ABDOMEN: No hepatosplenomegaly, normal bowel sounds, no guarding or rigidity. SPINE: No scoliosis or deformity SKIN: No rashes CENTRAL NERVOUS SYSTEM: No focal deficits, tone is normal in all 4 extremities. EXTREMITIES: There is no peripheral edema. No clubbing, no cyanosis. Peripheral pulses are intact. - Labs CBC & Chem 7: 12/04/18 07:46 12/04/18 07:46 Labs: Abnormal Lab Results - Last 24 Hours (Table) 12/03/18 12/03/18 12/04/18 Range/Units 16:40 20:45 01:48 WBC (3.8-10.6) k/uL Neutrophils # (1.3-7.7) k/uL Lymphocytes # (1.0-4.8) k/uL APTT (22.0-30.0) sec BUN (9-20) mg/dL Creatinine (0.66-1.25) mg/dL Glucose (74-99) mg/dL POC Glucose (mg/dL) 171 H 221 H 155 H (75-99) mg/dL Calcium (8.4-10.2) mg/dL 12/04/18 12/04/18 12/04/18 Range/Units 06:01 07:46 07:46 WBC 15.7 H (3.8-10.6) k/uL Neutrophils # 14.5 H (1.3-7.7) k/uL Lymphocytes # 0.3 L (1.0-4.8) k/uL APTT 79.3 H (22.0-30.0) sec BUN (9-20) mg/dL Creatinine (0.66-1.25) mg/dL Glucose (74-99) mg/dL POC Glucose (mg/dL) 155 H (75-99) mg/dL Calcium (8.4-10.2) mg/dL 12/04/18 12/04/18 Range/Units 07:46 11:30 WBC (3.8-10.6) k/uL Neutrophils # (1.3-7.7) k/uL Lymphocytes # (1.0-4.8) k/uL APTT (22.0-30.0) sec BUN 65 H (9-20) mg/dL Creatinine 1.50 H (0.66-1.25) mg/dL Glucose 117 H (74-99) mg/dL POC Glucose (mg/dL) 194 H (75-99) mg/dL Calcium 8.1 L (8.4-10.2) mg/dL Microbiology - Last 24 Hours (Table) 12/01/18 10:45 Gram Stain - Preliminary Pleural Fluid Body Fluid Culture - Preliminary 11/30/18 11:56 Blood Culture - Preliminary Blood No Growth after 72 hours Assessment and Plan Assessment: mpression: 1 subacute inferoposterior myocardial infarction 2 acute congestive heart failure secondary to subacute myocardial infarction, epperson spect ischemic cardiomyopathy and impaired LV function with ejection fraction 40-45% 3 type 2 diabetes, on insulin patient is normally on glipizide insulin and metformin. 4 hypertension, patient is normally on Lopressor 5 hyperlipidemia 6 history of atrial flutter requiring cardioversion in August of 2018. 7 history of underlying coronary artery disease, and previous PCI. 8 status post right sided thoracentesis, fluid was reviewed today, and it is transudative in nature, this is cardiac in nature and not related to infection. Plan: The patient was seen and evaluated by Dr. Dobbs. He is stable from the pulmonary standpoint. The plan is for cardiac catheterization tomorrow per car diology. Creatinine 1.5 today. We'll continue to follow and make further recommendations based on his clinical status. I, the cosigning physician, performed a history & physical examination of the patient. Lungs sounds with faint crackles in the posterior bases. Maintaining good O2 saturations in the 90s on room air. I discussed the assessment and plan of care with my nurse practitioner, Page Cervantes. I attest to the above note as dictated by her.
[2018-12-04] MEDS: SODIUM CHLORIDE 0.9% 1,000 ML IV SCH ×2 (15:55→20:23)
[2018-12-04 16:51] LABS: Glucose,Whole Blood 287 mg/dL (75-99)
[2018-12-04] MEDS: HEPARIN SOD,PORK IN 0.45% NACL 25,000 UNIT in 0.45% NACL 1 250ML.BAG IV SCH (16:51)
--- NOTE | 2018-12-04 17:43 | P.PN ---
Subjective This is a pleasant 78 years old male with past medical history of atrial fibrillation, diabetes mellitus, hyperlipidemia, osteoarthritis, congestive heart failure and ischemic heart disease. Patient presents because of worsening dyspnea over one week duration with no chest pain however he has some cough and yellow phlegm. No palpitation or dizziness, no change in urine or bowel habits. No fever. Patient blood pressure is stable at 146/82, saturating 92% on 4 L, he is afebrile. He has mild leukocytosis of 11.9 K, sodium 136, creatinine 1.5 which is close to baseline, glucose 471. Troponin 13.8, influenza is negative. Chest x-ray: Stable bilateral infiltrates suspicious for pneumonia, possible CHF as per radiologist report. EKG showing normal sinus rhythm at [address] depression in V2 to V6. QTC 510. In the emergency room he got aspirin, Coreg and Lasix once. Patient was started on Lasix drip and heparin drip. He is on losartan metoprolol as well. 12/01/2018 patient is seen today in the ICU. His resting comfortably and feels better. His feeling was better. Still no chest pain. Dry cough.vitals his stable although he isn't tachypneic. Saturating 99% on 4 L oxygen via NC.creatinine is 1.69. Troponins are elevated at 13.8, 28.6, 20.2. Patient is been followed closely by cardiology and pulmonary/critical care team.the plan for cardiac cath tomorrow. 12/02/2018 Patient remains in the ICU, he looks tired and lethargic. Denies overt chest pain, limits rapid breathing. No coughing. He Tolerated Diet Well. Patient Is Supposed to Go for Cardiac Cath Today However His Kidney Function Was Trending up from 1.6 to 2.0. Patient Was Placed Back on Heparin Drip. Sugar was running between 147-60. Patient states that he was taking 50 units of insulin 70:30 twice a day. Yesterday we started him on insulin therapy 30 units at bedtime, however today was started eating more and we increased his insulin dose to 30 units twice a day, plus sliding scale. Vitas looks stable. He still have leukocytosis of 19.5 K. Chest x-ray: Trace pleural effusion. Status post thoracocentesis. Patient is being followed closely in the intensive care unit by cardiology and pulmonary team. Today also patient was placed on Lasix 40 mg twice a day. 12/03/2018 Patient feels well in the ICU His dyspnea looks better. No chest pain. His sugar was low normal this morning around 60-70. We lowered his ninth dose of Levemir from 30 down to 20 units Continue with daytime Levemir dose of 3 units.sugar is improved currently at 128. Creatinine is improved at 1.74.we will continue with IV heparin. Statin has been added by supervisor phosphatic fertilizer. Patient is planned to have coronary angiography. 12/04/2018 Patient was transferred to the selective unit. He was lying in bed comfortable not in distress with no chest pain. Hemodynamically stable. Labs reviewed showing improved leukocytosis from 17.7 down to 15.7 K. Creatinine is trending down to 1.5. Cardiology team following the case and possible cardiac cath tomorrow. Also patient has blisters in his leg, silver sulfadiazine was started with wound team consult CONSTITUTIONAL: No fever, no malaise, no fatigue. HEENT: No recent visual problems or hearing problems. Denied any sore throat. CARDIOVASCULAR: no palpitations, no syncope. PULMONARY:, no hemoptysis. GASTROINTESTINAL: No diarrhea, no nausea, no vomiting, no abdominal pain. Normoactive bowel sounds. NEUROLOGICAL: No headaches, no weakness, no numbness. HEMATOLOGICAL: Denies any bleeding or petechiae. GENITOURINARY: Denies any burning micturition, frequency, or urgency. MUSCULOSKELETAL/RHEUMATOLOGICAL: Denies any joint pain, swelling, or any muscle pain. ENDOCRINE: Denies any polyuria or polydipsia. medication: Albuterol, Augmentin, aspirin, Coreg, Lasix, losartan, salmeterol, Protonix, and heparin drip. Objective - Vital Signs Vital signs: Vital Signs Temp 98.7 F 12/04/18 16:00 Pulse 70 12/04/18 16:13 Resp 16 12/04/18 16:00 BP 148/78 12/04/18 16:00 Pulse Ox 94 L 12/04/18 16:00 Intake & Output 12/03/18 12/04/18 12/04/18 18:59 06:59 18:59 Intake Total 240 250 810 Output Total 1165 1225 2900 Balance -761 -814 -0796 Weight 83.9 kg Intake: IV 240 0.9 NACL 240 Intake, IV Titration 250 250 Amount Heparin Sod,Pork in 0.45% 250 250 NaCl 25,000 unit In 0.45 % NaCl 1 250ml.bag @ 800 UNIT/HR 8 mls/hr IV .Q24H [facility] Rx#:[id number] Oral 560 Output: Urine 1165 1225 2900 Other: Voiding Method Indwelling Catheter Indwelling Catheter # Voids 1 # Bowel Movements 1 - Exam GENERAL: The patient is alert and oriented x3, not in any acute distress. Well developed, well nourished. HEENT: Pupils are round and equally reacting to light. EOMI. No scleral icterus. No conjunctival pallor. Normocephalic, atraumatic. No pharyngeal erythema. No thyromegaly. CARDIOVASCULAR: S1 and S2 present. No murmurs, rubs, or gallops. -PULMONARY: Chest is clear to auscultation, scattered bilateral wheezing and basal crackles. ABDOMEN: Soft, nontender, nondistended, normoactive bowel sounds. No palpable organomegaly. MUSCULOSKELETAL: No joint swelling or deformity. EXTREMITIES: No cyanosis, clubbing, or pedal edema. NEUROLOGICAL: Gross neurological examination did not reveal any focal deficits. SKIN: No rashes. - Labs CBC & Chem 7: 12/04/18 07:46 12/04/18 07:46 Labs: Abnormal Lab Results - Last 24 Hours (Table) 12/03/18 12/04/18 12/04/18 Range/Units 20:45 01:48 06:01 WBC (3.8-10.6) k/uL Neutrophils # (1.3-7.7) k/uL Lymphocytes # (1.0-4.8) k/uL APTT (22.0-30.0) sec BUN (9-20) mg/dL Creatinine (0.66-1.25) mg/dL Glucose (74-99) mg/dL POC Glucose (mg/dL) 221 H 155 H 155 H (75-99) mg/dL Calcium (8.4-10.2) mg/dL 12/04/18 12/04/18 12/04/18 Range/Units 07:46 07:46 07:46 WBC 15.7 H (3.8-10.6) k/uL Neutrophils # 14.5 H (1.3-7.7) k/uL Lymphocytes # 0.3 L (1.0-4.8) k/uL APTT 79.3 H (22.0-30.0) sec BUN 65 H (9-20) mg/dL Creatinine 1.50 H (0.66-1.25) mg/dL Glucose 117 H (74-99) mg/dL POC Glucose (mg/dL) (75-99) mg/dL Calcium 8.1 L (8.4-10.2) mg/dL 12/04/18 12/04/18 Range/Units 11:30 16:50 WBC (3.8-10.6) k/uL Neutrophils # (1.3-7.7) k/uL Lymphocytes # (1.0-4.8) k/uL APTT (22.0-30.0) sec BUN (9-20) mg/dL Creatinine (0.66-1.25) mg/dL Glucose (74-99) mg/dL POC Glucose (mg/dL) 194 H 287 H (75-99) mg/dL Calcium (8.4-10.2) mg/dL Microbiology - Last 24 Hours (Table) 11/30/18 11:56 Blood Culture - Preliminary Blood No Growth after 96 hours 12/01/18 10:45 Gram Stain - Preliminary Pleural Fluid Body Fluid Culture - Preliminary Assessment and Plan Assessment: Elevated troponin, mostly Non-STEMI Possible acute on chronic congestive heart failure Less likely patient has pneumonia Distress in both legs History of coronary artery disease History of congestive heart failure History of atrial fibrillation Diabetes mellitus Hyperlipidemia Plan: This is a pleasant 78 years old male who presents because of the STEMI and acute CHF, continue with diuretics, heparin drip, continue with beta blockers and MELIA inhibitor. Cardiology consult. Continue with antibiotics. Wound consult Labs and medication were reviewed.. Continue same treatment. Continue with symptomatic treatment. Resume home medication. Monitor lytes and vitals. DVT and GI prophylaxis. Further recommendations of the clinical course of the patient DVT prophylaxis: heparin GI Prophylaxis: Pepcid Prognosis is guarded
[2018-12-04] MEDS: PRAVASTATIN SODIUM 20 MG TAB PO SCH (20:23)
[2018-12-04] MEDS: TRIAMCINOLONE ACET 0.1% OINTMENT 15 GM TUBE TOPICAL SCH (20:24)
[2018-12-04 20:29] LABS: Glucose,Whole Blood 245 mg/dL (75-99)
--- NOTE | 2018-12-04 23:03 | P.CONS ---
History of Present Illness - Reason for Consult Consult date: 12/04/18 - Chief Complaint Lower leg ulcerations - History of Present Illness 78-year-old male presents to hospital with increasing weakness and shortness of breath. Patient has a known history of multiple medical troubles that includes underlying coronary artery disease. The time of the presentation there is evidence of a subacute myocardial infarction and he has been treated for this. The patient has difficulties with bilateral lower extremity ulcerations present for about a year and a half. He is a and receives his care at [facility]. 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 He apply some local care to the legs but does not have ongoing follow-up with the [place]. They suggested he go to dermatology in [place] but he will not drive to [facility]. He relates he ulcerations are not painful but he does have trouble trying to take care of them. He relates that his chest pain is improved. He has less shortness of breath. The edema to the legs has improved since coming to hospital. He currently is denying fevers, chills or rigors. Review of Systems HEENT:Denies headache or acute visual change. Denies sinus or mouth discomforts. Denies neck stiffness or pain. Denies significant oral cavity pain. Denies difficulty on swallowing. Lungs: Shortness of breath at admission has improved he has not having cough production or hemoptysis Cardiovascular: Shortness of breath is improved, chest pain is improved, is not with significant syncope or dyspnea on exertion at this time Gastrointestinal:Denies nausea, vomiting, diarrhea, constipation, hematemesis, melena, hematochezia. No no significant change of bowel habit noticed. Musculoskeletal: denies significant myalgias or arthralgias. No new joint swelling. Denies new back pain. Skin: Chronic ulcers of the lower extremities Neuro: No headache or focal weakness Psychiatric:Denies anxiety or depression. Endocrine: Denies significant fatigue, denies significant weight loss or weight gain. Past Medical History Past Medical History: Atrial Flutter, Diabetes Mellitus, Hyperlipidemia, Osteoarthritis (OA), Prostate Disorder Additional Past Medical History / Comment(s): See Dr Epps's H&P History of Any Multi-Drug Resistant Organisms: None Reported Past Surgical History: Appendectomy, Heart Catheterization With Stent Additional Past Surgical History / Comment(s): Cataracts Past Anesthesia/Blood Transfusion Reactions: No Reported Reaction Date of Last Stent Placement:: unsure Past Psychological History: No Psychological Hx Reported Additional Psychological History / Comment(s): Single. No children. No pets. Remote tobacco use. No international travel since his experience. Worked on [employer] Smoking Status: Former smoker Past Alcohol Use History: None Reported Additional Past Alcohol Use History / Comment(s): smoked 2 months in 1963; quit drinking 1973 Past Drug Use History: None Reported - Past Family History Mother Family Medical History: Myocardial Infarction (SD) Additional Family Medical History / Comment(s): age 64 Medications and Allergies Home Medications and Allergies Comment(s): Current Medications Albuterol/Ipratropium (Duoneb 0.5 Mg-3 Mg/3 Ml Soln) 3 ml INHALATION RT-QID [facility] Last Admin: 12/04/18 20:58 Dose: 3 ml Documented by: Albuterol/Ipratropium (Duoneb 0.5 Mg-3 Mg/3 Ml Soln) 3 ml INHALATION RT-Q2H PRN PRN Reason: Shortness Of Breath Or Wheezing Amoxicillin/Clavulanate Potassium (Augmentin 875-125) 1 each PO BID [facility] Stop: 12/05/18 21:01 Last Admin: 12/04/18 20:23 Dose: 1 each Documented by: Aspirin (Aspirin) 81 mg PO DAILY [facility] Last Admin: 12/04/18 09:22 Dose: 81 mg Documented by: Carvedilol (Coreg) 3.125 mg PO BID-W/MEALS [facility] Last Admin: 12/04/18 17:32 Dose: 3.125 mg Documented by: Furosemide (Lasix) 40 mg PO BID@0900,1600 [facility] Last Admin: 12/04/18 16:49 Dose: 40 mg Documented by: Heparin Sodium (Porcine) (Heparin) 0 unit IV PER PROTOCOL PRN; Protocol PRN Reason: Low PTT Last Admin: 12/02/18 19:59 Dose: 2,100 unit Documented by: Sodium Chloride (Saline 0.9%) 1,000 mls @ 20 mls/hr IV .Q24H [facility] Last Admin: 12/04/18 15:55 Dose: Not Given Documented by: Heparin Sodium/Sodium Chloride (25,000 unit/ Sodium Chloride) 250 mls @ 8 ml s/hr IV .Q24H [facility]; Protocol Last Admin: 12/04/18 16:51 Dose: 1,318 unit/hr, 13.18 mls/hr Documented by: Sodium Chloride (Saline 0.9%) 1,000 mls @ 50 mls/hr IV .Q20H [facility] Last Admin: 12/04/18 20:23 Dose: 50 mls/hr Documented by: Insulin Aspart (Novolog) 0 unit SQ [id number] [facility]; Protocol Last Admin: 12/04/18 21:19 Dose: 5 unit Documented by: Insulin Detemir (Levemir) 20 unit SQ HS [facility] Last Admin: 12/04/18 21:18 Dose: 20 unit Documented by: Insulin Detemir (Levemir) 30 unit SQ 0900 [facility] Last Admin: 12/04/18 09:23 Dose: 30 unit Documented by: Losartan Potassium (Cozaar) 25 mg PO DAILY [facility] Last Admin: 12/04/18 09:22 Dose: 25 mg Documented by: Methylprednisolone Sodium Succinate (Solu-Medrol) 40 mg IV Q8HR [facility] Last Admin: 12/04/18 17:32 Dose: 40 mg Documented by: Multi-Ingred Cream/Lotion/Oil/Oint (Eucerin Cream) 1 applic TOPICAL BID PRN PRN Reason: Dry Skin Last Admin: 12/03/18 16:14 Dose: 1 applic Documented by: Naloxone HCl (Narcan) 0.2 mg IV Q2M PRN PRN Reason: Opioid Reversal Pantoprazole Sodium (Protonix) 40 mg PO DAILY [facility] Last Admin: 12/04/18 09:22 Dose: 40 mg Documented by: Pravastatin Sodium (Pravachol) 20 mg PO [facility] Last Admin: 12/04/18 20:23 Dose: 20 mg Documented by: Triamcinolone Acetonide (Kenalog) 1 applic TOPICAL BID [facility] Last Admin: 12/04/18 20:24 Dose: 1 applic Documented by: Home Medications Medication Instructions Recorded Confirmed Type Apixaban [Eliquis] 5 mg PO BID 08/09/18 11/30/18 History Furosemide [Lasix] 40 mg PO DAILY 08/09/18 11/30/18 History Potassium Chloride [K-Tab ER] 10 meq PO BID 08/09/18 11/30/18 History Spironolactone 12.5 mg PO DAILY 08/09/18 11/30/18 History Tamsulosin [Flomax] 0.4 mg PO BID 08/09/18 11/30/18 History glipiZIDE [Glucotrol] 10 mg PO AC-BID 08/09/18 11/30/18 History metFORMIN HCL 1,000 mg PO DAILY 08/09/18 11/30/18 History Metoprolol Tartrate [Lopressor] 50 mg PO BID 08/12/18 11/30/18 History Insulin NPH Hum/Reg Insulin Hm 60 unit SQ BID 11/30/18 11/30/18 History [Novolin 70-30 Flexpen] Isosorbide Mononitrate ER [Imdur] 90 mg PO DAILY 11/30/18 11/30/18 History Rosuvastatin Calcium 40 mg PO DAILY 11/30/18 11/30/18 History amLODIPine [Norvasc] 5 mg PO BID 11/30/18 11/30/18 History Allergies Allergy/AdvReac Type Severity Reaction Status Date / Time atorvastatin [From Lipitor] Allergy Unknown Verified 11/30/18 12:24 Physical Exam Vitals: Vital Signs Temp Pulse Pulse Resp BP Pulse Ox 12/04/18 21:06 74 12/04/18 20:58 72 12/04/18 20:05 97.0 F L 71 17 115/73 93 L 12/04/18 16:13 70 12/04/18 16:00 98.7 F 65 16 148/78 94 L 12/04/18 12:09 68 12/04/18 12:00 68 12/04/18 11:20 72 16 12/04/18 11:17 72 16 148/87 93 L 12/04/18 09:18 70 12/04/18 09:08 70 12/04/18 08:00 66 16 148/77 98 12/04/18 06:06 97.8 F 70 16 134/81 98 12/03/18 23:45 67 16 120/67 93 L Intake and Output 12/04/18 12/04/18 12/04/18 06:59 14:59 22:59 Intake Total 560 250 Output Total 850 1200 1700 Balance -850 -708 -1450 Intake: Intake, IV Titration 250 Amount Heparin Sod,Pork in 0.45% 250 NaCl 25,000 unit In 0.45 % NaCl 1 250ml.bag @ 800 UNIT/HR 8 mls/hr IV .Q24H [facility] Rx#:[id number] Oral 560 Output: Urine 850 1200 1700 Other: Voiding Method Indwelling Catheter # Voids 1 # Bowel Movements 1 Weight 83.9 kg 78-year-old male who is comfortable denying chest pain HEENT: Anicteric conjunctiva are pink and moist nasal mucosa grossly intact without significant lesions, there is no thrush. Neck: The neck is supple without significant lymphadenopathy or thyromegaly. Lungs: Symmetrical air entry with basilar crackles no bronchial sounds no dullness or egophony Heart: Irregular with a loud S4 no new murmur click or rub Abdomen: Mildly obese, Positive bowel sounds soft and nontender without palpable masses or organomegaly. There was no guarding or rebound. Extremities: The upper extremities have excellent pulses they are symmetric, no significant petechiae or telangiectasia. No splinter hemorrhages were noted. Lower extremities reveal evidence of some chronic venous stasis Left leg does not have significant open ulcerations but does have chronic skin changes with dryness and plaques. Right leg reveals evidence of the open ulceration anterior surface measuring 2.5-1.5 x 0.2 cm. Skin drainage. Neuro: Awake alert oriented to person place and time. There are no acute new gross focal sensory motor deficits. Results CBC & Chem 7: 12/04/18 07:46 12/04/18 07:46 Labs: Abnormal Lab Results - Last 24 Hours (Table) 12/04/18 12/04/18 12/04/18 Range/Units 01:48 06:01 07:46 WBC (3.8-10.6) k/uL Neutrophils # (1.3-7.7) k/uL Lymphocytes # (1.0-4.8) k/uL APTT 79.3 H (22.0-30.0) sec BUN (9-20) mg/dL Creatinine (0.66-1.25) mg/dL Glucose (74-99) mg/dL POC Glucose (mg/dL) 155 H 155 H (75-99) mg/dL Calcium (8.4-10.2) mg/dL 12/04/18 12/04/18 12/04/18 Range/Units 07:46 07:46 11:30 WBC 15.7 H (3.8-10.6) k/uL Neutrophils # 14.5 H (1.3-7.7) k/uL Lymphocytes # 0.3 L (1.0-4.8) k/uL APTT (22.0-30.0) sec BUN 65 H (9-20) mg/dL Creatinine 1.50 H (0.66-1.25) mg/dL Glucose 117 H (74-99) mg/dL POC Glucose (mg/dL) 194 H (75-99) mg/dL Calcium 8.1 L (8.4-10.2) mg/dL 12/04/18 12/04/18 Range/Units 16:50 20:28 WBC (3.8-10.6) k/uL Neutrophils # (1.3-7.7) k/uL Lymphocytes # (1.0-4.8) k/uL APTT (22.0-30.0) sec BUN (9-20) mg/dL Creatinine (0.66-1.25) mg/dL Glucose (74-99) mg/dL POC Glucose (mg/dL) 287 H 245 H (75-99) mg/dL Calcium (8.4-10.2) mg/dL Microbiology - Last 24 Hours (Table) 11/30/18 11:56 Blood Culture - Preliminary Blood No Growth after 96 hours 12/01/18 10:45 Gram Stain - Preliminary Pleural Fluid Body Fluid Culture - Preliminary Laboratory Results WBC 15.7 k/uL (3.8-10.6) H 12/04/18 07:46 RBC 5.73 m/uL (4.30-5.90) 12/04/18 07:46 Hgb 15.3 gm/dL (13.0-17.5) 12/04/18 07:46 Hct 48.9 % (39.0-53.0) 12/04/18 07:46 MCV 85.3 fL (80.0-100.0) 12/04/18 07:46 MCH 26.7 pg (25.0-35.0) 12/04/18 07:46 MCHC 31.3 g/dL (31.0-37.0) 12/04/18 07:46 RDW 14.2 % (11.5-15.5) 12/04/18 07:46 Plt Count 305 k/uL (150-450) 12/04/18 07:46 Neutrophils % 92 % 12/04/18 07:46 Lymphocytes % 2 % 12/04/18 07:46 Monocytes % 4 % 12/04/18 07:46 Eosinophils % 1 % 12/04/18 07:46 Basophils % 0 % 12/04/18 07:46 Neutrophils # 14.5 k/uL (1.3-7.7) H 12/04/18 07:46 Lymphocytes # 0.3 k/uL (1.0-4.8) L 12/04/18 07:46 Monocytes # 0.5 k/uL (0-1.0) 12/04/18 07:46 Eosinophils # 0.1 k/uL (0-0.7) 12/04/18 07:46 Basophils # 0.0 k/uL (0-0.2) 12/04/18 07:46 Hypochromasia Slight 12/04/18 07:46 Poikilocytosis Slight 12/03/18 04:29 PT 11.5 sec (9.0-12.0) 11/30/18 11:56 INR 1.1 (<1.2) 11/30/18 11:56 APTT 79.3 sec (22.0-30.0) H 12/04/18 07:46 Sodium 140 mmol/L (137-145) 12/04/18 07:46 Potassium 4.6 mmol/L (3.5-5.1) 12/04/18 07:46 Chloride 105 mmol/L (98-107) 12/04/18 07:46 Carbon Dioxide 26 mmol/L (22-30) 12/04/18 07:46 Anion Gap 9 mmol/L 12/04/18 07:46 BUN 65 mg/dL (9-20) H 12/04/18 07:46 Creatinine 1.50 mg/dL (0.66-1.25) H 12/04/18 07:46 Est GFR (CKD-EPI)AfAm 52 (>60 ml/min/1.73 sqM) 12/04/18 07:46 Est GFR (CKD-EPI)NonAf 45 (>60 ml/min/1.73 sqM) 12/04/18 07:46 Glucose 117 mg/dL (74-99) H 12/04/18 07:46 POC Glucose (mg/dL) 245 mg/dL (75-99) H 12/04/18 20:28 POC Glu Fish [employer] Feeder ID Nessa Botello 12/04/18 20:[address] Glu mg/dL 177 12/01/18 05:38 Hemoglobin A1c 7.8 % (4.0-6.0) H 12/01/18 05:38 Plasma Lactic Acid Gutierrez 1.8 mmol/L (0.7-2.0) 11/30/18 16:08 Calcium 8.1 mg/dL (8.4-10.2) L 12/04/18 07:46 Phosphorus 4.8 mg/dL (2.5-4.5) H 12/02/18 04:36 Magnesium 2.2 mg/dL (1.6-2.3) 12/02/18 04:36 Total Bilirubin 1.2 mg/dL (0.2-1.3) 11/30/18 11:56 AST 83 U/L (17-59) H 11/30/18 11:56 ALT 32 U/L (21-72) 11/30/18 11:56 Alkaline Phosphatase 170 U/L (38-126) H 11/30/18 11:56 Creatine Kinase 257 U/L (55-170) H 11/30/18 11:56 CK-MB (CK-2) 23.5 ng/mL (0.0-2.4) H 11/30/18 11:56 Troponin I 20.200 ng/mL (0.000-0.034) H* 12/01/18 05:38 NT-Pro-B Natriuret Pep 22727 pg/mL 11/30/18 11:56 Total Protein 7.0 g/dL (6.3-8.2) 11/30/18 11:56 Albumin 3.9 g/dL (3.5-5.0) 11/30/18 11:56 Fluid Source Pleural 12/01/18 10:45 Fluid Color Yellow 12/01/18 10:45 Fluid Appearance Clear 12/01/18 10:45 Fluid RBC 445 /uL 12/01/18 10:45 Fluid Nucleated Cells 55 /uL 12/01/18 10:45 Fluid Polynuclear WBCs 5 % 12/01/18 10:45 Fluid Mononuclear WBCs 95 % 12/01/18 10:45 Body Fluid Glucose Source Pleural Fluid 12/01/18 10:45 Fluid Glucose 215 mg/dL 12/01/18 10:45 Body Fluid Protein Source Pleural Fluid 12/01/18 10:45 Fluid Total Protein 1862 mg/dL 12/01/18 10:45 Body Fluid LDH Source Pleural Fluid 12/01/18 10:45 Fluid LDH 101 U/L 12/01/18 10:45 Influenza Type A RNA Not Detected (Not Detectd) 11/30/18 12:12 Influenza Type B (PCR) Not Detected (Not Detectd) 11/30/18 12:12 Microbiology 11/30/18 11:56 Blood Blood Culture - Preliminary No Growth after 96 hours 12/01/18 10:45 Pleural Fluid Gram Stain - Preliminary 12/01/18 10:45 Pleural Fluid Body Fluid Culture - Preliminary Assessment and Plan (1) Myocardial infarction Current Visit: Yes Status: Acute Code(s): I21.9 - ACUTE MYOCARDIAL INFARCTION, UNSPECIFIED SNOMED Code(s): 43095310 (2) Acute systolic (congestive) heart failure Current Visit: Yes Status: Acute Code(s): I50.21 - ACUTE SYSTOLIC (CONGESTIVE) HEART FAILURE SNOMED Code(s): 498015720 (3) Congestive heart failure Current Visit: Yes Status: Acute Code(s): I50.9 - HEART FAILURE, UNSPECIFIED SNOMED Code(s): 17230244 (4) Venous stasis ulcer of right lower leg with edema of right lower leg Narrative/Plan: 78-year-old male that has a history of multiple medical troubles with known coronary artery disease who presents to Hospital feeling poorly. Evidence of a subacute myocardial infarction. Is being treated by cardiology with medication changes is feeling better. There is evidence of a right pleural effusion and this was tapped without evidence of any significant empyema or infection in that site. 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 Due to his [place] insurance was no longer able to see the pattern chain maker supervisor. He does not want to drive to [place] to see dermatology. This time he appears to have some chronic skin changes the lower extremities and constantly to the plaque-like areas the topical triamcinolone will be applied. The open ulceration hydrogel dressing is applied. This can be applied twice a day and then rolled gauze and Gianni wrap should be applied temp of lower extremity edema. Elevation of the limbs at rest will be helpful. If possible would be happy to see him in the wound healing center here [facility] after his discharge. The ulceration does not appear to be infected. Current Visit: Yes Status: Acute Code(s): I83.019 - VARICOSE VEINS OF RIGHT LOWER EXTREMITY W ULCER OF UNSP SITE; I83.891 - VARICOSE VEINS OF R LOW EXTREM WITH OTHER COMPLICATIONS; L97.919 - NON-PRS CHRONIC ULC UNSP PRT OF R LOW LEG W UNSP SEVERITY; R60.9 - EDEMA, UNSPECIFIED SNOMED Code(s): 16370957883570870
[2018-12-05] MEDS: INSULIN ASPART (NovoLOG) 100 UNIT/ML VIAL SQ SCH ×5 (04:30→21:57)
[2018-12-05 04:57] LABS: Basophils # (A) 0.1 k/uL (0-0.2); Basophils % (A) 0 %; Eosinophils # (A) 0.2 k/uL (0-0.7); Eosinophils % (A) 1 %; HCT 48.3 % (39.0-53.0); HGB 15.2 gm/dL (13.0-17.5); Lymphocytes # (A) 0.3 k/uL (1.0-4.8); Lymphocytes % (A) 2 %; MCH 26.8 pg (25.0-35.0); MCHC 31.5 g/dL (31.0-37.0); MCV 85.1 fL (80.0-100.0); Mean Platelet Volume 6.8; Monocytes # (A) 0.6 k/uL (0-1.0); Monocytes % (A) 3 %; Neutrophils # (A) 17.4 k/uL (1.3-7.7); Neutrophils % (A) 93 %; Platelet Count 291 k/uL (150-450); RBC 5.68 m/uL (4.30-5.90); RDW 14.3 % (11.5-15.5); WBC 18.7 k/uL (3.8-10.6)
[2018-12-05 05:33] LABS: Calcium 7.9 mg/dL (8.4-10.2); Potassium 4.9 mmol/L (3.5-5.1)
[2018-12-05] MEDS ORDERED: ASPIRIN 325 MG TAB PO STA (05:47)
[2018-12-05] MEDS ORDERED: PRAVASTATIN SODIUM 80 MG TAB PO STA (05:48)
[2018-12-05] MEDS: ASPIRIN 81 MG PO SCH (06:09)
[2018-12-05 06:10] LABS: Glucose,Whole Blood 180 mg/dL (75-99)
[2018-12-05] MEDS: CARVEDILOL 3.125 MG TAB PO SCH ×2 (06:56→17:02)
[2018-12-05] MEDS: IPRATROPIUM-ALBUTEROL 3 ML NEB INHALATION SCH ×5 (07:05→19:56)
[2018-12-05] MEDS: HEPARIN SOD,PORK IN 0.45% NACL 25,000 UNIT in 0.45% NACL 1 250ML.BAG IV SCH ×2 (07:59→16:18)
[2018-12-05] MEDS: AMOXIC-POT CLAV 875-125MG 1 EACH TAB PO SCH ×2 (08:02→21:57)
[2018-12-05] MEDS: methylPREDNISolone SOD SUCCI 40 MG/ML 1 ML VIAL IV SCH (08:02)
[2018-12-05] MEDS: FUROSEMIDE 40 MG TAB PO SCH ×2 (08:02→16:17)
[2018-12-05] MEDS: LOSARTAN 25 MG TAB PO SCH (08:02)
[2018-12-05] MEDS: PANTOPRAZOLE 40 MG TABLET PO SCH (08:03)
[2018-12-05] MEDS: TRIAMCINOLONE ACET 0.1% OINTMENT 15 GM TUBE TOPICAL SCH ×2 (08:06→17:25)
[2018-12-05] MEDS ORDERED: LIDOCAINE 1% INJ 10MG/ML (20 ML MDV) ONE (08:24)
[2018-12-05] MEDS ORDERED: IV FLUID CONTINUATION 1,000 ML IV ONE (08:45)
[2018-12-05] MEDS ORDERED: LIDOCAINE 1% INJ 10MG/ML (20 ML MDV) SQ ONE (08:48)
[2018-12-05] MEDS ORDERED: fentaNYL (PF) 50 MCG/ML 2 ML AMP ONE (08:49)
[2018-12-05] MEDS ORDERED: MIDAZOLAM 2 MG/2 ML VIAL IV ONE (08:50)
[2018-12-05] MEDS ORDERED: fentaNYL (PF) 50 MCG/ML 2 ML AMP IV ONE (08:50)
[2018-12-05] MEDS ORDERED: IOPAMIDOL-370 125ML BTL INJ ONE (09:14)
[2018-12-05] MEDS ORDERED: HYDROcodone/APAP 5-325MG 1 EACH TAB PO PRN (09:38)
[2018-12-05] MEDS ORDERED: RX INFO: IV CONTRAST WAS GIVEN 1 EACH MISC MISCELLANE PRN (09:38)
--- NOTE | 2018-12-05 09:38 | P.CARDCATH ---
Date of Procedure: 12/05/18 Preoperative Diagnosis: Non-STEMI, CHF, history of multiple stent placements Postoperative Diagnosis: Critical lesion involving the ostium of circumflex and also ostium and proximal portion of the nondominant RCA. Multiple lesions the LAD and diagonal Description of Procedure: HISTORY: This is a 78-year-old gentleman with history of ischemic heart disease with previous multiple stent placements and recent evidence of CHF associated with atrial flutter. Patient had a cardioversion and felt much better after cardioversion as for his CHF is concerned. This was about 3 months ago. This time patient came to the hospital with complaints of having intermittent chest pain and increasing shortness of breath. He was found to have non-ST elevation myocardial infarction and evidence of CHF and also pleural effusion. Patient has underlying mild renal failure and creatinine went up to 2 with the diuresis. Creatinine is back to 1.34., Today. Patient is advised to have cardiac catheterization for definitive diagnosis. His echo showed severe hypokinesis of the inferior wall with an ejection fraction of about 35-40%. Patient and family were explained the risks and benefits of the procedure including the possibility of renal function deterioration CONSENT:I have discussed the risks, benefits and alternative therapies for the above-mentioned procedure and for both sedation/analgesia as well as necessary blood product administration, if indicated, as they pertain to this patient. The patient has indicated understanding and acceptance of the risks and procedures discussed. PROCEDURE: Patient was brought to the lab in a fasting state. Patient was given some IV sedation. The right groin is infiltrated with lidocaine and right femoral artery was entered using Seldinger technique. A 6-Nepali catheter was left in place and selective coronary arteriography was performed. Patient tolerated the procedure well. Femoral angiogram was performed and manual compression was applied for hemostasis. No immediate complications were noted and patient was transferred to [facility] in a stable condition. He patient had multiple lesions including critical lesion involving the ostium of the circumflex. Films were reviewed with Dr. DEMARIO Chahal. He advised to get a surgical opinion regarding bypass surgery. If patient is not felt to be a good candidate for surgery, stent placement of the circumflex and LAD to be done later this week. Patient did develop transient bradycardia with a of advancement of the pigtail into the left ventricle. This improved after pulling out the pigtail Conscious Sedation: Versed 0.5 mg Fentanyl 25 g Duration 16 minutes HEMODYNAMICS: The aortic pressure SELECTIVE CORONARY ARTERIOGRAPHY: LEFT MAIN: The left main coronary artery is a long with mild plaque without any critical lesions. THE LEFT ANTERIOR DESCENDING CORONARY ARTERY: This is a fairly caliber vessel with a diffuse plaque. There appears to be about 60-70% lesion of the proximal LAD. The first diagonal is moderate in caliber has about 70-80% stenosis. The stent in the mid LAD appears to be patent. There are multiple lesions involving the distal LAD also with areas of 80-90% stenosis. THE LEFT CIRCUMFLEX AND IS CORONARY ARTERY: This is a fairly caliber vessel giving rise to PDA and appears to be dominant. There is about 99% stenosis of the ostium of the circumflex THE RIGHT CORONARY ARTERY: Nondominant vessel with a long lesion involving the ostium and the proximal portion with about 95% stenosis. LEFT VENTRICULOGRAPHY: Not performed FINAL IMPRESSION: Critical lesion involving the ostium of the circumflex which seemed to be the culprit vessel. There is a 90-95% stenosis of the ostium in the proximal portion of the RCA which may be chronic. There is about 70% stenosis of the proximal LAD and also proximal diagonal. The stents in the mid LAD appeared to be patent. There are multiple lesions involving the distal LAD PLAN: Continuation maximum medical therapy. Surgery versus multiple stent placement PROGNOSIS: Guarded
[2018-12-05] MEDS ORDERED: HEPARIN SODIUM,PORCINE 5,000 UNIT/ML 1 ML VIAL IV PRN (10:18)
[2018-12-05] MEDS ORDERED: HEPARIN SOD,PORK IN 0.45% NACL 25,000 UNIT in 0.45% NACL 1 250ML.BAG IV SCH (10:30)
[2018-12-05 11:49] LABS: Glucose,Whole Blood 114 mg/dL (75-99)
--- NOTE | 2018-12-05 12:16 | ECHOF ---
Referral Reason:Chest pain and cardiomyopathy MEASUREMENTS -------- HEIGHT: 172.7 cm WEIGHT: 84.4 kg BP: AV Vmax: 1.61 m/s AV maxP.39 mmHg FINDINGS -------- Sinus rhythm. Pt had Echo 11/30/18: Limited Study for LV Function. Overall left ventricular systolic function is mild-moderately impaired with, an EF between 40 - 45 %. Inferior is Hypokinetic. Posterior is hypokinetic. CONCLUSIONS -------- 1. Sinus rhythm. 2. Pt had Echo 11/30/18: Limited Study for LV Function. 3. Overall left ventricular systolic function is mild-moderately impaired with, an EF between 40 - 45 %. 4. Inferior is Hypokinetic. 5. Posterior is hypokinetic. SPUDDER: Kamilah Crespo RDCS
[2018-12-05] MEDS: INSULIN DETEMIR (LEVEMIR) 100 UNIT/ML SYR SQ SCH ×2 (12:37→21:57)
[2018-12-05] MEDS: SODIUM CHLORIDE 0.9% 1,000 ML IV SCH ×3 (12:38→17:03)
--- NOTE | 2018-12-05 14:27 | P.GSCN ---
History of Present Illness Consult date: 12/05/18 Reason for Consult: Evaluation for myocardial revascularization surgery. Requesting physician: Geo Epps History of present illness: This is 78-year-old gentleman who is followed by Saida braga's viktoriya mccall at the [facility] clinic in [facility]. He has a past medical history significant for recent diagnosis of atrial flutter status post cardioversion, history of coronary artery disease with multiple stent placements, history of myocardial infarction, diabetes mellitus type 2, hyperlipidemia, hypertension, congestive heart failure systolic and diastolic with an ejection fraction of 35- 40%, prostate disorder and osteoarthritis. On 11/30/2018 the patient presented to the [facility] clinic in [place] complaining of progressive shortness of breath, inability to lay flat and increased swelling to his bilateral lower extremities. The patient denies any complaints of fever, chills, nausea, vomiting or pain. Subsequently he was sent to [facility] emergency department to undergo a chest x-ray. His chest x-ray demonstrated bilateral infiltrates and a right-sided pleural effusion. On admission some lab work was completed which showed a WBC count 11.9, hemoglobin 15.1, BUN 29, creatinine 1.51, glucose 471, a lactic acid level 3.2 and an elevated troponin level of 13.800. Due to the patient's presenting symptoms, chest x-ray findings and elevated troponins he was admitted to the hospital for further evaluation and treatment. On December 01 the patient underwent an ultrasound of her his chest which demonstrated a right pleural effusion pocket measuring 10.6 cm. Following the ultrasound results the patient underwent a right-sided thoracentesis with 900 mL of yellow fluid drained by pulmonary medicine. Due to the patient's elevated troponins cardiology was consulted. A 2-D echocardiogram was completed which demonstrated an overall left ventricular systolic function to be mild to moderately impaired with an ejection fraction between 40 and 45%, moderate concentric left froilan tricular hypertrophy, mild mitral valve regurgitation, mild tricuspid valve regurgitation, and mild pulmonary hypertension. For further workup a cardiac catheterization was completed which demonstrated a 60-70% stenosis to his proximal left anterior descending coronary artery, a 70-80% stenosis to his first diagonal coronary artery, the stent to his mid left anterior descending coronary artery to be patent, multiple lesions involving the distal left anterior descending coronary artery in the range of 80-90%, a 99% stenosis to his ostial circumflex coronary artery and a 95% stenosis involving his proximal right coronary artery. Due to the patient's elevated troponins, presenting symptoms, history of coronary artery disease and cardiac catheterization results a consult was placed to Dr. Camilla Rivero from cardiothoracic surgery for recommendations on myocardial revascularization surgery. Review of Systems A 14 point review of systems was completed and was negative except as mentioned in the HPI. Past Medical History Past Medical History: Atrial Flutter, Coronary Artery Disease (CAD), Heart Failure, Diabetes Mellitus, Hyperlipidemia, Hypertension, Myocardial Infarction (MO), Osteoarthritis (OA), Prostate Disorder Additional Past Medical History / Comment(s): See Dr Epps's H&P History of Any Multi-Drug Resistant Organisms: None Reported Past Surgical History: Appendectomy, Heart Catheterization With Stent Additional Past Surgical History / Comment(s): Cataracts Past Anesthesia/Blood Transfusion Reactions: No Reported Reaction Date of Last Stent Placement:: unsure Past Psychological History: No Psychological Hx Reported Additional Psychological History / Comment(s): Single. No children. No pets. Remote tobacco use. No international travel since his experience. Worked on [employer] Smoking Status: Never smoker Past Alcohol Use History: None Reported Additional Past Alcohol Use History / Comment(s): quit drinking 1974 Past Drug Use History: None Reported - Past Family History Mother Family Medical History: Myocardial Infarction ([place]) Additional Family Medical History / Comment(s): age 64 Medications and Allergies Home Medications Medication Instructions Recorded Confirmed Type Apixaban [Eliquis] 5 mg PO BID 08/09/18 11/30/18 History Furosemide [Lasix] 40 mg PO DAILY 08/09/18 11/30/18 History Potassium Chloride [K-Tab ER] 10 meq PO BID 08/09/18 11/30/18 History Spironolactone 12.5 mg PO DAILY 08/09/18 11/30/18 History Tamsulosin [Flomax] 0.4 mg PO BID 08/09/18 11/30/18 History glipiZIDE [Glucotrol] 10 mg PO AC-BID 08/09/18 11/30/18 History metFORMIN HCL 1,000 mg PO DAILY 08/09/18 11/30/18 History Metoprolol Tartrate [Lopressor] 50 mg PO BID 08/12/18 11/30/18 History Insulin NPH Hum/Reg Insulin Hm 60 unit SQ BID 11/30/18 11/30/18 History [Novolin 70-30 Flexpen] Isosorbide Mononitrate ER [Imdur] 90 mg PO DAILY 11/30/18 11/30/18 History Rosuvastatin Calcium 40 mg PO DAILY 11/30/18 11/30/18 History amLODIPine [Norvasc] 5 mg PO BID 11/30/18 11/30/18 History Allergies Allergy/AdvReac Type Severity Reaction Status Date / Time atorvastatin [From Lipitor] Allergy Unknown Verified 11/30/18 12:24 Surgical - Exam Vital Signs Temp Pulse Resp BP Pulse Ox 98.4 F 94 25 H 143/84 92 L 11/30/18 11:29 11/30/18 11:29 11/30/18 11:29 11/30/18 11:29 11/30/18 11:29 - General well developed, well nourished, no distress, no pain, obese - Eyes PERRL, normal ocular movement - ENT normal pinna, normal nares, normal mucosa, no hearing loss, no congestion, dentures - Neck Neck is supple, no lymphadenopathy. no masses, no bruits, trachea midline, no venous distension - Respiratory Lung sounds with crackles to his bilateral bases. Respirations are symmetrical and nonlabored. Oxygen saturation are 92% on 2 L nasal cannula. He is achieving 1250 mL to 1500 mL on his incentive spirometry. - Cardiovascular Regular rhythm and rate. S1 and S2 present, negative for S3, gallop or murmur. +1 to +2 edema to his bilateral lower extremities. Remote telemetry showing normal sinus rhythm heart rate 65. - Abdomen Abdomen is soft, nontender and nondistended. Active bowel sounds all 4 abdominal quadrants. No guarding or rigidity. No organomegaly. - Genitourinary Torres catheter in place for accurate I&O. Draining clear yellow urine. - Rectum Deferred - Integumentary Right lower extremity with some erythema and ulceration to his lateral surface measuring 2.5 x 1.5 x 0.2 cm. Left lower extremity with some erythema and dry scabbed areas. no growths - Neurologic normal coordination, normal sensation - Musculoskeletal Bed rest at this time post cardiac catheterization - Psychiatric oriented to time, oriented to person, oriented to place, speech is normal, memory intact Results - Labs 12/05/18 04:47 12/05/18 04:47 Abnormal Lab Results - Last 24 Hours (Table) 12/04/18 12/04/18 12/05/18 Range/Units 16:50 20:28 04:47 WBC 18.7 H (3.8-10.6) k/uL Neutrophils # 17.4 H (1.3-7.7) k/uL Lymphocytes # 0.3 L (1.0-4.8) k/uL BUN (9-20) mg/dL Creatinine (0.66-1.25) mg/dL Glucose (74-99) mg/dL POC Glucose (mg/dL) 287 H 245 H (75-99) mg/dL Calcium (8.4-10.2) mg/dL 12/05/18 12/05/18 12/05/18 Range/Units 04:47 06:09 11:48 WBC (3.8-10.6) k/uL Neutrophils # (1.3-7.7) k/uL Lymphocytes # (1.0-4.8) k/uL BUN 59 H (9-20) mg/dL Creatinine 1.39 H (0.66-1.25) mg/dL Glucose 166 H (74-99) mg/dL POC Glucose (mg/dL) 180 H 114 H (75-99) mg/dL Calcium 7.9 L (8.4-10.2) mg/dL Microbiology - Last 24 Hours (Table) 12/01/18 10:45 Gram Stain - Final Pleural Fluid Body Fluid Culture - Final 11/30/18 11:56 Blood Culture - Preliminary Blood No Growth after 96 hours Diabetes panel 12/05/18 Range/Units 04:47 Sodium 137 (137-145) mmol/L Potassium 4.9 (3.5-5.1) mmol/L Chloride 106 (98-107) mmol/L Carbon Dioxide 24 (22-30) mmol/L BUN 59 H (9-20) mg/dL Creatinine 1.39 H (0.66-1.25) mg/dL Glucose 166 H (74-99) mg/dL Calcium 7.9 L (8.4-10.2) mg/dL Calcium panel 12/05/18 Range/Units 04:47 Calcium 7.9 L (8.4-10.2) mg/dL Pituitary panel 12/05/18 Range/Units 04:47 Sodium 137 (137-145) mmol/L Potassium 4.9 (3.5-5.1) mmol/L Chloride 106 (98-107) mmol/L Carbon Dioxide 24 (22-30) mmol/L BUN 59 H (9-20) mg/dL Creatinine 1.39 H (0.66-1.25) mg/dL Glucose 166 H (74-99) mg/dL Calcium 7.9 L (8.4-10.2) mg/dL Adrenal panel 12/05/18 Range/Units 04:47 Sodium 137 (137-145) mmol/L Potassium 4.9 (3.5-5.1) mmol/L Chloride 106 (98-107) mmol/L Carbon Dioxide 24 (22-30) mmol/L BUN 59 H (9-20) mg/dL Creatinine 1.39 H (0.66-1.25) mg/dL Glucose 166 H (74-99) mg/dL Calcium 7.9 L (8.4-10.2) mg/dL Assessment and Plan Assessment: 1. Non-ST elevated myocardial infarction, elevated troponins as high as 28.600. 2. Coronary artery disease with a critical lesion involving the ostium of the circumflex, proximal right coronary artery and multiple lesions to the left anterior descending coronary artery and diagonal coronary artery. 3. Congestive heart failure, acute on chronic systolic and diastolic. 4. Right pleural effusion status post right thoracentesis with 900 mL of yellow fluid drained. 5. Venous stasis ulcers to his right lower extremity. 6. Diabetes mellitus type 2. 7. Recent diagnosis of atrial flutter, status post recent cardioversion. 8. History of Hypertension. 9. History of hyperlipidemia. 10. Prostate disorder on Flomax at home. 11. History of coronary artery disease with multiple stents placement in the past. Plan: The patient was seen and examined. The patient's chart and diagnostics were reviewed including the heart catheterization films, transesophageal echocardiogram and 2-D echocardiogram. The case was discussed Dr. Camilla Rivero and Dr. Epps. Preoperative workup has been initiated and preoperative teaching has been initiated. Recommendations to maximize medical therapy with aspirin, statin, ARB, Lasix and beta blockers. Continue GI and DVT prophylaxis. Once the preoperative workup has been obtained Dr. Rivero will review the preoperative findings and make further recommendations on myocardial revascularization surgery. Wound care and antibiotic management per infectious disease Dr. Eldridge recommendations. Steroid and pulmonary management per Dr. Bull. Medical management recommendations per primary care service. We will order an incentive spirometry and encourage his use every hour while awake. Thank you Dr. Epps for this consult and we look forward to working with you in the care of your patient. Time with Patient: Greater than 30
[2018-12-05 14:36] LABS: Albumin 2.8 g/dL (3.5-5.0); Calcium 7.8 mg/dL (8.4-10.2); Magnesium 2.4 mg/dL (1.6-2.3); Potassium 4.6 mmol/L (3.5-5.1); Total Bilirubin 0.6 mg/dL (0.2-1.3); Total Protein 5.5 g/dL (6.3-8.2)
[2018-12-05 14:38] LABS: Partial Thromboplastin Time 24.3 sec (22.0-30.0); Prothrombin Time 11.1 sec (9.0-12.0)
[2018-12-05 14:55] LABS: Basophils # (A) 0.1 k/uL (0-0.2); Basophils % (A) 0 %; Eosinophils % (A) 0 %; HGB 14.7 gm/dL (13.0-17.5); Hypochromasia Moderate; Lymphocytes # (A) 0.3 k/uL (1.0-4.8); Lymphocytes % (A) 2 %; MCH 27.3 pg (25.0-35.0); MCHC 31.4 g/dL (31.0-37.0); Mean Platelet Volume 7.4; Monocytes # (A) 0.7 k/uL (0-1.0); Monocytes % (A) 4 %; Neutrophils # (A) 16.7 k/uL (1.3-7.7); Neutrophils % (A) 93 %; Platelet Count 267 k/uL (150-450); RDW 14.3 % (11.5-15.5)
--- NOTE | 2018-12-05 15:52 | P.PN ---
Subjective Progress Note Date: 12/05/18 Principal diagnosis: subacute myocardial infarction with systolic congestive heart failure This is a 78-year-old white male with history of paroxysmal atrial flutter status post transesophageal echo and cardioversion in August of 2018. Patient has been following up at the [facility] for his cardiac issues. Although his previous cardioversion was done by few months back. Patient is also known to have history of type 2 diabetes, hypertension, and for the last week and a half, the patient has been complaining of shortness of breath and uncomfortable feeling in the chest. The uncomfortable feeling is described as heaviness in the chest. And this one and on for at least a day or so. He shortness of breath has become more progressive over the last week and a half, he was seen in the [facility] and he was sent to the emergency room for further evaluation. Upon presentation to the ER, patient was noted to be short of breath, chest x-ray showed evidence of pulmonary edema with bilateral pleural effusions, seen by cardiology while in the ER, his EKG was suggestive of inferior posterior wall IA, and patient was placed on Lasix drip, heparin, admitted to the intensive care unit, and I was asked to see him on consultation. Patient diuresed about 1 L of fluid overnight, however his chest x-ray continues to show bilateral pleural effusions, and I went ahead today and performed a right sided thoracentesis, I was able to drain about 900 mL of fluid from the right pleural space. The amount of the fluid on the left side was felt to be minimal, hence no need to perform thoracentesis on the left side at this point. In the meantime the patient was placed back on heparin, placed back on his cardiac meds, remains on diuretics, and may give a require cardiac catheterization. However his renal functioning has been noted to be compromise, and needs to be monitored. His CBC on admission showed WBC count of 11.8 hemoglobin of 13.8, his BUN was 31, and creatinine of 1.56. Blood sugar was noted to be 440, hence the patient was started on insulin drip upon arrival to the ICU last night. Troponin was significantly elevated at 26.4 and his BNP level was 23,300. Influenza screen was negative. Patient was reevaluated today on 12/02/2018, patient is feeling better, breathing a lot easier, his chest x-ray showed improvement, hardly any fluid in both lungs except for a small tiny right-sided pleural effusion/residual from his last thoracentesis. Patient is being considered for possible cardiac catheterization today. However his renal functioning is a bit worse today compared to yesterday.BUN is 59 and creatinine is 2.01. Patient is off Lasix drip, however he is on Lasix IV push. His urine output is excellent. Patient has no cough no wheezing no shortness of breath no chest pain. All labs were reviewed today, he has a bit of leukocytosis with WBC count of 19.5, otherwise CBC is normal, and renal profile as noted above. Chest x-ray as noted earlier. Reevaluated today on 12/03/2018, patient continues to do well, his cardiac catheterization was postponed until Wednesday mostly because of his worsening renal functioning. Pulmonary-gaspar the patient is doing better, breathing a lot easier, denies any cough no wheezing no shortness of breath. And his chest x- ray continues to show complete resolution of his bilateral pleural effusions and pulmonary edema. WBC count is a bit elevated at 17.7, PTT is therapeutic, electrolytes are normal renal profile is improving BUN is down to 69 creatinine is down to 1.74. The patient is seen today 12/04/2018 in follow-up on the selective care unit. He is currently awake and alert in no acute distress. Up ambulating in his room. He denies any worsening shortness of breath, cough or congestion. He is maintaining good O2 saturations in the 90s on room air. He has been afebrile. Hemodynamically stable. Pleural fluid culture reveals no growth. Blood culture reveals no growth. White count 15.7. Hemoglobin 15.3. Creatinine 1.50. On 12/05/2018 patient seen in follow-up on selective care unit, patient had just returned from heart catheterization and he was found to have 60-70% lesion of the proximal LAD, first diagonal branch was 70-80% stenosis, and 99% stenosis of the ostium of the circumflex and RCA lesion of 95%. He is resting comfortably in bed currently, he is eating lunch, no complaints of chest pain or shortness of breath, referral was put in for cardiothoracic surgery for possibility of bypass grafting Objective - Vital Signs Vital signs: Vital Signs Temp 98.0 F 12/05/18 08:00 Pulse 65 12/05/18 13:45 Resp 16 12/05/18 13:45 BP 155/76 12/05/18 13:45 Pulse Ox 96 12/05/18 13:45 Intake & Output 12/04/18 12/05/18 12/05/18 18:59 06:59 18:59 Intake Total 810 365 240 Output Total 2900 2600 Balance -2089 -2234 240 Weight 84.5 kg Intake: IV 60 Intake, IV Titration 250 125 Amount Heparin Sod,Pork in 0.45% 250 NaCl 25,000 unit In 0.45 % NaCl 1 250ml.bag @ 800 UNIT/HR 8 mls/hr IV .Q24H [facility] Rx#:[id number] Sodium Chloride 0.9% 1, 125 000 ml @ 50 mls/hr IV . Q20H [facility] Rx#:[id number] Oral 560 240 180 Output: Urine 2900 2600 Other: Voiding Method Indwelling Catheter # Voids 1 0 # Bowel Movements 1 - Exam GENERAL EXAM: Alert, pleasant, 78-year-old white male comfortable in no apparent distress. HEAD: Normocephalic/atraumatic. EYES: Normal reaction of pupils, equal size. Conjunctiva pink, sclera white. NOSE: Clear with pink turbinates. THROAT: No erythema or exudates. NECK: No masses, no JVD, no thyroid enlargement, no adenopathy. CHEST: No chest wall deformity. Symmetrical expansion. LUNGS: Equal air entry with no crackles, wheeze, rhonchi or dullness. CVS: Regular rate and rhythm, normal S1 and S2, no gallops, no murmurs, no rubs ABDOMEN: Soft, nontender. No hepatosplenomegaly, normal bowel sounds, no guarding or rigidity. EXTREMITIES: No clubbing, no edema, no cyanosis, 2+ pulses and upper and lower extremities. MUSCULOSKELETAL: Muscle strength and tone normal. SPINE: No scoliosis or deformity SKIN: No rashes CENTRAL NERVOUS SYSTEM: Alert and oriented -3. No focal deficits, tone is normal in all 4 extremities. PSYCHIATRIC: Alert and oriented -3. Appropriate affect. Intact judgment and insight. - Labs CBC & Chem 7: 12/05/18 14:03 12/05/18 14:03 Labs: Abnormal Lab Results - Last 24 Hours (Table) 12/04/18 12/04/18 12/05/18 Range/Units 16:50 20:28 04:47 WBC 18.7 H (3.8-10.6) k/uL Neutrophils # 17.4 H (1.3-7.7) k/uL Lymphocytes # 0.3 L (1.0-4.8) k/uL BUN (9-20) mg/dL Creatinine (0.66-1.25) mg/dL Glucose (74-99) mg/dL POC Glucose (mg/dL) 287 H 245 H (75-99) mg/dL Calcium (8.4-10.2) mg/dL Magnesium (1.6-2.3) mg/dL Total Protein (6.3-8.2) g/dL Albumin (3.5-5.0) g/dL LDL Cholesterol, Calc (0-99) mg/dL TSH (0.465-4.680) mIU/L 12/05/18 12/05/18 12/05/18 Range/Units 04:47 06:09 11:48 WBC (3.8-10.6) k/uL Neutrophils # (1.3-7.7) k/uL Lymphocytes # (1.0-4.8) k/uL BUN 59 H (9-20) mg/dL Creatinine 1.39 H (0.66-1.25) mg/dL Glucose 166 H (74-99) mg/dL POC Glucose (mg/dL) 180 H 114 H (75-99) mg/dL Calcium 7.9 L (8.4-10.2) mg/dL Magnesium (1.6-2.3) mg/dL Total Protein (6.3-8.2) g/dL Albumin (3.5-5.0) g/dL LDL Cholesterol, Calc (0-99) mg/dL TSH (0.465-4.680) mIU/L 12/05/18 12/05/18 Range/Units 14:03 14:03 WBC 18.0 H (3.8-10.6) k/uL Neutrophils # 16.7 H (1.3-7.7) k/uL Lymphocytes # 0.3 L (1.0-4.8) k/uL BUN 58 H (9-20) mg/dL Creatinine 1.28 H (0.66-1.25) mg/dL Glucose 146 H (74-99) mg/dL POC Glucose (mg/dL) (75-99) mg/dL Calcium 7.8 L (8.4-10.2) mg/dL Magnesium 2.4 H (1.6-2.3) mg/dL Total Protein 5.5 L (6.3-8.2) g/dL Albumin 2.8 L (3.5-5.0) g/dL LDL Cholesterol, Calc 104 H (0-99) mg/dL TSH 0.419 L (0.465-4.680) mIU/L Microbiology - Last 24 Hours (Table) 12/01/18 10:45 Gram Stain - Final Pleural Fluid Body Fluid Culture - Final 11/30/18 11:56 Blood Culture - Preliminary Blood No Growth after 96 hours Assessment and Plan Plan: 1 subacute inferoposterior myocardial infarction 2 acute congestive heart failure secondary to subacute myocardial infarction, suspect ischemic cardiomyopathy and impaired LV function with ejection fraction 40-45% 3 multivessel coronary artery disease, patient may need coronary artery bypass grafting 4 type 2 diabetes, on insulin patient is normally on glipizide insulin and metformin. 5 hypertension, patient is normally on Lopressor 6 hyperlipidemia 7 history of atrial flutter requiring cardioversion in August of 2018. 8 history of underlying coronary artery disease, and previous PCI. 9 status post right sided thoracentesis, fluid was reviewed today, and it is transudative in nature, this is cardiac in nature and not related to infection. Plan: We'll continue with current medical treatment, patient was found to have multivessel coronary artery disease, referral was put in for cardiothoracic surgery for possibility of coronary artery bypass grafting. continue with oral Lasix, nebulized bronchodilators. Lung sounds are clear, no rhonchi no wheezing, we'll switch the patient to oral prednisone, continue with bronchodilators. I performed a history & physical examination of the patient and discussed their management with my nurse practitioner, Demetria Ramos. I reviewed the nurse practitioner's note and agree with the documented findings and plan of care. Lung sounds are positive for clear breath sounds. The findings and the impression was discussed with the patient. I attest to the documentation by the nurse practitioner. Time with Patient: Less than 30
[2018-12-05 17:00] LABS: Glucose,Whole Blood 198 mg/dL (75-99)
[2018-12-05 17:31] LABS: T4, Free (Free Thyroxine) 1.42 ng/dL (0.78-2.19)
--- NOTE | 2018-12-05 17:40 | US ---
EXAMINATION TYPE: US carotid duplex BILAT DATE OF EXAM: 12/05/2018 COMPARISON: NONE CLINICAL HISTORY: Pre-Op Cardiac Surgery. HTN, no hx of tia, precabg EXAM MEASUREMENTS: RIGHT: Peak Systolic Velocity (PSV) cm/sec ----- Right CCA: 57.2 ----- Right ICA: 72.1 ----- Right ECA: 51.0 ICA/CCA ratio: 1.3 RIGHT: End Diastole cm/sec ----- Right CCA: 11.9 ----- Right ICA: 18.8 ----- Right ECA: 0.0 LEFT: Peak Systolic Velocity (PSV) cm/sec ----- Left CCA: 72.1 ----- Left ICA: 117.3 ----- Left ECA: 61.6 ICA/CCA ratio: 1.6 LEFT: End Diastole cm/sec ----- Left CCA: 10.1 ----- Left ICA: 33.1 ----- Left ECA: 0.0 VERTEBRALS (direction of flow): Right Vertebral: Antegrade Left Vertebral: Antegrade Rhythm: Normal Bilateral wall thickening. No significant stenosis or elevated velocities. Valdivia scale images show moderate eccentric hyperechoic plaque at bilateral carotid bulbs but velocity measurements and ratios in visualized portion of both internal carotid arteries is within normal limi ts more elevated on the left side. IMPRESSION: Moderate atherosclerotic change bilaterally worse at left carotid bulb without hemodynam ically significant stenosis clearly seen in either internal carotid artery. Criteria for Assigning % of Stenosis / Diameter reduction (Estimation based on the indirect measurements of the internal carotid artery velocities (ICA PSV). 1. Normal (no stenosis)=ICA PSV < 125 cm/s: ratio < 2.0: ICA EDV<40 cm/s. 2. Less than 50% stenosis=ICA PSV < 125 cm/s: ratio < 2.0: ICA EDV<40 cm/s. 3. 50 to 69% stenosis=ICA PSV of 125 to 230 cm/s: ration 2.0 ? 4.0: ICA EDV 40-100 cm/s. 4. Greater than 70% stenosis to near occlusion= ICA PSV > 230 cm/s: ratio > 4.0: ICA EDV > 100 cm/s. 5. Near occlusion= ICA PSV velocities may be low or undetectable: variable ratio and ICA EDV. 6. Total occlusion=unable to detect flow.
--- NOTE | 2018-12-05 18:56 | P.PN ---
Subjective This is a pleasant 78 years old male with past medical history of atrial fibrillation, diabetes mellitus, hyperlipidemia, osteoarthritis, congestive heart failure and ischemic heart disease. Patient presents because of worsening dyspnea over one week duration with no chest pain however he has some cough and yellow phlegm. No palpitation or dizziness, no change in urine or bowel habits. No fever. Patient blood pressure is stable at 146/82, saturating 92% on 4 L, he is afebrile. He has mild leukocytosis of 11.9 K, sodium 136, creatinine 1.5 which is close to baseline, glucose 471. Troponin 13.8, influenza is negative. Chest x-ray: Stable bilateral infiltrates suspicious for pneumonia, possible CHF as per radiologist report. EKG showing normal sinus rhythm at [address] depression in V2 to V6. QTC 510. In the emergency room he got aspirin, Coreg and Lasix once. Patient was started on Lasix drip and heparin drip. He is on losartan metoprolol as well. 12/01/2018 patient is seen today in the ICU. His resting comfortably and feels better. His feeling was better. Still no chest pain. Dry cough.vitals his stable although he isn't tachypneic. Saturating 99% on 4 L oxygen via NC.creatinine is 1.69. Troponins are elevated at 13.8, 28.6, 20.2. Patient is been followed closely by cardiology and pulmonary/critical care team.the plan for cardiac cath tomorrow. 12/02/2018 Patient remains in the ICU, he looks tired and lethargic. Denies overt chest pain, limits rapid breathing. No coughing. He Tolerated Diet Well. Patient Is Supposed to Go for Cardiac Cath Today However His Kidney Function Was Trending up from 1.6 to 2.0. Patient Was Placed Back on Heparin Drip. Sugar was running between 147-60. Patient states that he was taking 50 units of insulin 70:30 twice a day. Yesterday we started him on insulin therapy 30 units at bedtime, however today was started eating more and we increased his insulin dose to 30 units twice a day, plus sliding scale. Vitas looks stable. He still have leukocytosis of 19.5 K. Chest x-ray: Trace pleural effusion. Status post thoracocentesis. Patient is being followed closely in the intensive care unit by cardiology and pulmonary team. Today also patient was placed on Lasix 40 mg twice a day. 12/03/2018 Patient feels well in the ICU His dyspnea looks better. No chest pain. His sugar was low normal this morning around 60-70. We lowered his ninth dose of Levemir from 30 down to 20 units Continue with daytime Levemir dose of 3 units.sugar is improved currently at 128. Creatinine is improved at 1.74.we will continue with IV heparin. Statin has been added by warp tension tester. Patient is planned to have coronary angiography. 12/04/2018 Patient was transferred to the selective unit. He was lying in bed comfortable not in distress with no chest pain. Hemodynamically stable. Labs reviewed showing improved leukocytosis from 17.7 down to 15.7 K. Creatinine is trending down to 1.5. Cardiology team following the case and possible cardiac cath tomorrow. Also patient has blisters in his leg, silver sulfadiazine was started with wound team consult 12/05/2018 Patient underwent cardiac cath today showing critical lesion involving the circumflex artery with 90-95% stenosis of the RCA. With 70% stenosis of the LAD. And cardiology recommended surgery versus multiple stent placement. Patient post cardiac cath was comfortable denied chest pain or dyspnea. Mild hematoma at the right groin. Vitals are stable. CONSTITUTIONAL: No fever, no malaise, no fatigue. HEENT: No recent visual problems or hearing problems. Denied any sore throat. CARDIOVASCULAR: no palpitations, no syncope. PULMONARY:, no hemoptysis. GASTROINTESTINAL: No diarrhea, no nausea, no vomiting, no abdominal pain. Normoactive bowel sounds. NEUROLOGICAL: No headaches, no weakness, no numbness. HEMATOLOGICAL: Denies any bleeding or petechiae. GENITOURINARY: Denies any burning micturition, frequency, or urgency. MUSCULOSKELETAL/RHEUMATOLOGICAL: Denies any joint pain, swelling, or any muscle pain. ENDOCRINE: Denies any polyuria or polydipsia. medication: Albuterol, Augmentin, aspirin, Coreg, Lasix, losartan, salmeterol, Protonix, and heparin drip. Objective - Vital Signs Vital signs: Vital Signs Temp 97.9 F 12/05/18 16:00 Pulse 63 12/05/18 16:00 Resp 16 12/05/18 16:00 BP 143/68 12/05/18 16:00 Pulse Ox 96 12/05/18 17:40 Intake & Output 12/04/18 12/05/18 12/05/18 18:59 06:59 18:59 Intake Total 810 365 420 Output Total 2900 2600 1100 Balance -2089 Weight 84.5 kg Intake: IV 60 Intake, IV Titration 250 125 Amount Heparin Sod,Pork in 0.45% 250 NaCl 25,000 unit In 0.45 % NaCl 1 250ml.bag @ 800 UNIT/HR 8 mls/hr IV .Q24H [facility] Rx#:[id number] Sodium Chloride 0.9% 1, 125 000 ml @ 50 mls/hr IV . Q20H [facility] Rx#:[id number] Oral 560 240 360 Output: Urine 2900 2600 1100 Other: Voiding Method Indwelling Catheter # Voids 1 0 # Bowel Movements 1 - Exam GENERAL: The patient is alert and oriented x3, not in any acute distress. Well developed, well nourished. HEENT: Pupils are round and equally reacting to light. EOMI. No scleral icterus. No conjunctival pallor. Normocephalic, atraumatic. No pharyngeal erythema. No thyromegaly. CARDIOVASCULAR: S1 and S2 present. No murmurs, rubs, or gallops. -PULMONARY: Chest is clear to auscultation, scattered bilateral wheezing and basal crackles. ABDOMEN: Soft, nontender, nondistended, normoactive bowel sounds. No palpable organomegaly. MUSCULOSKELETAL: No joint swelling or deformity. EXTREMITIES: No cyanosis, clubbing, or pedal edema. NEUROLOGICAL: Gross neurological examination did not reveal any focal deficits. SKIN: No rashes. - Labs CBC & Chem 7: 12/05/18 14:03 12/05/18 14:03 Labs: Abnormal Lab Results - Last 24 Hours (Table) 12/04/18 12/05/18 12/05/18 Range/Units 20:28 04:47 04:47 WBC 18.7 H (3.8-10.6) k/uL Neutrophils # 17.4 H (1.3-7.7) k/uL Lymphocytes # 0.3 L (1.0-4.8) k/uL BUN 59 H (9-20) mg/dL Creatinine 1.39 H (0.66-1.25) mg/dL Glucose 166 H (74-99) mg/dL POC Glucose (mg/dL) 245 H (75-99) mg/dL Calcium 7.9 L (8.4-10.2) mg/dL Magnesium (1.6-2.3) mg/dL Total Protein (6.3-8.2) g/dL Albumin (3.5-5.0) g/dL LDL Cholesterol, Calc (0-99) mg/dL TSH (0.465-4.680) mIU/L 12/05/18 12/05/18 12/05/18 Range/Units 06:09 11:48 14:03 WBC 18.0 H (3.8-10.6) k/uL Neutrophils # 16.7 H (1.3-7.7) k/uL Lymphocytes # 0.3 L (1.0-4.8) k/uL BUN (9-20) mg/dL Creatinine (0.66-1.25) mg/dL Glucose (74-99) mg/dL POC Glucose (mg/dL) 180 H 114 H (75-99) mg/dL Calcium (8.4-10.2) mg/dL Magnesium (1.6-2.3) mg/dL Total Protein (6.3-8.2) g/dL Albumin (3.5-5.0) g/dL LDL Cholesterol, Calc (0-99) mg/dL TSH (0.465-4.680) mIU/L 12/05/18 12/05/18 Range/Units 14:03 16:59 WBC (3.8-10.6) k/uL Neutrophils # (1.3-7.7) k/uL Lymphocytes # (1.0-4.8) k/uL BUN 58 H (9-20) mg/dL Creatinine 1.28 H (0.66-1.25) mg/dL Glucose 146 H (74-99) mg/dL POC Glucose (mg/dL) 198 H (75-99) mg/dL Calcium 7.8 L (8.4-10.2) mg/dL Magnesium 2.4 H (1.6-2.3) mg/dL Total Protein 5.5 L (6.3-8.2) g/dL Albumin 2.8 L (3.5-5.0) g/dL LDL Cholesterol, Calc 104 H (0-99) mg/dL TSH 0.419 L (0.465-4.680) mIU/L Microbiology - Last 24 Hours (Table) 11/30/18 11:56 Blood Culture - Preliminary Blood No Growth after 120 hours 12/01/18 10:45 Gram Stain - Final Pleural Fluid Body Fluid Culture - Final Assessment and Plan Assessment: Elevated troponin, mostly Non-STEMI Possible acute on chronic congestive heart failure Less likely patient has pneumonia Distress in both legs History of coronary artery disease History of congestive heart failure History of atrial fibrillation Diabetes mellitus Hyperlipidemia Plan: This is a pleasant 78 years old male who presents because of the STEMI and acute CHF, continue with diuretics, heparin drip, continue with beta blockers and MELIA inhibitor. Cardiology consult. Continue with antibiotics. Wound consult Labs and medication were reviewed.. Continue same treatment. Continue with symptomatic treatment. Resume home medication. Monitor lytes and vitals. DVT and GI prophylaxis. Further recommendations of the clinical course of the patient DVT prophylaxis: heparin GI Prophylaxis: Pepcid Prognosis is guarded
[2018-12-05] MEDS: PRAVASTATIN SODIUM 20 MG TAB PO SCH (21:57)
[2018-12-05] MEDS: MUPIROCIN 2% OINT 22 GM TUBE NASAL SCH (21:58)
--- NOTE | 2018-12-05 22:39 | P.PN ---
Subjective Progress Note Date: 12/05/18 78-year-old male presents to hospital with increasing weakness and shortness of breath. Patient has a known history of multiple medical troubles that includes underlying coronary artery disease. The time of the presentation there is evidence of a subacute myocardial infarction and he has been treated for this. The patient has difficulties with bilateral lower extremity ulcerations present for about a year and a half. He is a and [facility] He probably was seen by custodial manager in several events but because of his [facility] status they could not treat him any further. He apply some local care to the legs but does not have ongoing follow-up with the [facility]. They suggested he go to dermatology in [place] but he will not drive to [facility]. He relates he ulcerations are not painful but he does have trouble trying to take care of them. He relates that his chest pain is improved. He has less shortness of breath. The edema to the legs has improved since coming to [facility]. He currently is denying fevers, chills or rigors. 12/05/2018 patient is with improved chest pain at this time. He has been seen by cardiovascular surgery and is being evaluated for potential cardiac revascularization given his significant multivessel disease. Ulcerations without pain to the lower extremity. Objective - Vital Signs Vital signs: Vital Signs Temp 97.6 F 12/05/18 21:41 Pulse 66 12/05/18 21:41 Resp 17 12/05/18 21:41 BP 139/75 12/05/18 21:41 Pulse Ox 95 12/05/18 21:41 Intake & Output 12/05/18 12/05/18 12/06/18 06:59 18:59 06:59 Intake Total 365 420 Output Total 2600 1100 Balance -7630 -279 Weight 84.5 kg Intake: IV 60 Intake, IV Titration 125 Amount Sodium Chloride 0.9% 1, 125 000 ml @ 50 mls/hr IV . Q20H PEARL Rx#:[id number] Oral 240 360 Output: Urine 2600 1100 Other: Voiding Method Indwelling Catheter Indwelling Catheter # Voids 0 - Exam 78-year-old male who is comfortable denying chest pain HEENT: Anicteric conjunctiva are pink and moist nasal mucosa grossly intact without significant lesions, there is no thrush. Neck: The neck is supple without significant lymphadenopathy or thyromegaly. Lungs: Symmetrical air entry with basilar crackles no bronchial sounds no dullness or egophony Heart: Irregular with a loud S4 no new murmur click or rub Abdomen: Mildly obese, Positive bowel sounds soft and nontender without palpable masses or organomegaly. There was no guarding or rebound. Extremities: The upper extremities have excellent pulses they are symmetric, no significant petechiae or telangiectasia. No splinter hemorrhages were noted. Lower extremities reveal evidence of some chronic venous stasis Left leg does not have significant open ulcerations but does have chronic skin changes with dryness and plaques. Right leg reveals evidence of the open ulceration anterior surface measuring 2.5-1.5 x 0.2 cm. Skin drainage. Neuro: Awake alert oriented to person place and time. There are no acute new gross focal sensory motor deficits. - Labs CBC & Chem 7: 12/05/18 14:03 12/05/18 14:03 Labs: Abnormal Lab Results - Last 24 Hours (Table) 12/05/18 12/05/18 12/05/18 Range/Units 04:47 04:47 06:09 WBC 18.7 H (3.8-10.6) k/uL Neutrophils # 17.4 H (1.3-7.7) k/uL Lymphocytes # 0.3 L (1.0-4.8) k/uL BUN 59 H (9-20) mg/dL Creatinine 1.39 H (0.66-1.25) mg/dL Glucose 166 H (74-99) mg/dL POC Glucose (mg/dL) 180 H (75-99) mg/dL Calcium 7.9 L (8.4-10.2) mg/dL Magnesium (1.6-2.3) mg/dL Total Protein (6.3-8.2) g/dL Albumin (3.5-5.0) g/dL LDL Cholesterol, Calc (0-99) mg/dL TSH (0.465-4.680) mIU/L 12/05/18 12/05/18 12/05/18 Range/Units 11:48 14:03 14:03 WBC 18.0 H (3.8-10.6) k/uL Neutrophils # 16.7 H (1.3-7.7) k/uL Lymphocytes # 0.3 L (1.0-4.8) k/uL BUN 58 H (9-20) mg/dL Creatinine 1.28 H (0.66-1.25) mg/dL Glucose 146 H (74-99) mg/dL POC Glucose (mg/dL) 114 H (75-99) mg/dL Calcium 7.8 L (8.4-10.2) mg/dL Magnesium 2.4 H (1.6-2.3) mg/dL Total Protein 5.5 L (6.3-8.2) g/dL Albumin 2.8 L (3.5-5.0) g/dL LDL Cholesterol, Calc 104 H (0-99) mg/dL TSH 0.419 L (0.465-4.680) mIU/L 12/05/18 Range/Units 16:59 WBC (3.8-10.6) k/uL Neutrophils # (1.3-7.7) k/uL Lymphocytes # (1.0-4.8) k/uL BUN (9-20) mg/dL Creatinine (0.66-1.25) mg/dL Glucose (74-99) mg/dL POC Glucose (mg/dL) 198 H (75-99) mg/dL Calcium (8.4-10.2) mg/dL Magnesium (1.6-2.3) mg/dL Total Protein (6.3-8.2) g/dL Albumin (3.5-5.0) g/dL LDL Cholesterol, Calc (0-99) mg/dL TSH (0.465-4.680) mIU/L Microbiology - Last 24 Hours (Table) 11/30/18 11:56 Blood Culture - Preliminary Blood No Growth after 120 hours 12/01/18 10:45 Gram Stain - Final Pleural Fluid Body Fluid Culture - Final Laboratory Results WBC 18.0 k/uL (3.8-10.6) H 12/05/18 14:03 RBC 5.40 m/uL (4.30-5.90) 12/05/18 14:03 Hgb 14.7 gm/dL (13.0-17.5) 12/05/18 14:03 Hct 47.0 % (39.0-53.0) 12/05/18 14:03 MCV 87.0 fL (80.0-100.0) 12/05/18 14:03 MCH 27.3 pg (25.0-35.0) 12/05/18 14:03 MCHC 31.4 g/dL (31.0-37.0) 12/05/18 14:03 RDW 14.3 % (11.5-15.5) 12/05/18 14:03 Plt Count 267 k/uL (150-450) 12/05/18 14:03 Neutrophils % 93 % 12/05/18 14:03 Lymphocytes % 2 % 12/05/18 14:03 Monocytes % 4 % 12/05/18 14:03 Eosinophils % 0 % 12/05/18 14:03 Basophils % 0 % 12/05/18 14:03 Neutrophils # 16.7 k/uL (1.3-7.7) H 12/05/18 14:03 Lymphocytes # 0.3 k/uL (1.0-4.8) L 12/05/18 14:03 Monocytes # 0.7 k/uL (0-1.0) 12/05/18 14:03 Eosinophils # 0.0 k/uL (0-0.7) 12/05/18 14:03 Basophils # 0.1 k/uL (0-0.2) 12/05/18 14:03 Hypochromasia Moderate 12/05/18 14:03 Poikilocytosis Slight 12/03/18 04:29 PT 11.1 sec (9.0-12.0) 12/05/18 14:03 INR 1.0 (<1.2) 12/05/18 14:03 APTT 29.5 sec (22.0-30.0) 12/05/18 20:08 Sodium 137 mmol/L (137-145) 12/05/18 14:03 Potassium 4.6 mmol/L (3.5-5.1) 12/05/18 14:03 Chloride 105 mmol/L (98-107) 12/05/18 14:03 Carbon Dioxide 25 mmol/L (22-30) 12/05/18 14:03 Anion Gap 7 mmol/L 12/05/18 14:03 BUN 58 mg/dL (9-20) H 12/05/18 14:03 Creatinine 1.28 mg/dL (0.66-1.25) H 12/05/18 14:03 Est GFR (CKD-EPI)AfAm 63 (>60 ml/min/1.73 sqM) 12/05/18 14:03 Est GFR (CKD-EPI)NonAf 54 (>60 ml/min/1.73 sqM) 12/05/18 14:03 Glucose 146 mg/dL (74-99) H 12/05/18 14:03 POC Glucose (mg/dL) 198 mg/dL (75-99) H 12/05/18 16:59 POC Glu Senior Associate Niall Roblero 12/05/18 16:[address] Glu mg/dL 177 12/01/18 05:38 Hemoglobin A1c 7.8 % (4.0-6.0) H 12/01/18 05:38 Plasma Lactic Acid Gutierrez 1.8 mmol/L (0.7-2.0) 11/30/18 16:08 Calcium 7.8 mg/dL (8.4-10.2) L 12/05/18 14:03 Phosphorus 4.8 mg/dL (2.5-4.5) H 12/02/18 04:36 Magnesium 2.4 mg/dL (1.6-2.3) H 12/05/18 14:03 Total Bilirubin 0.6 mg/dL (0.2-1.3) 12/05/18 14:03 AST 32 U/L (17-59) 12/05/18 14:03 ALT 56 U/L (21-72) 12/05/18 14:03 Alkaline Phosphatase 92 U/L (38-126) 12/05/18 14:03 Creatine Kinase 257 U/L (55-170) H 11/30/18 11:56 CK-MB (CK-2) 23.5 ng/mL (0.0-2.4) H 11/30/18 11:56 Troponin I 20.200 ng/mL (0.000-0.034) H* 12/01/18 05:38 NT-Pro-B Natriuret Pep 24736 pg/mL 11/30/18 11:56 Total Protein 5.5 g/dL (6.3-8.2) L 12/05/18 14:03 Albumin 2.8 g/dL (3.5-5.0) L 12/05/18 14:03 Triglycerides 145 mg/dL (<150) 12/05/18 14:03 Cholesterol 177 mg/dL (<200) 12/05/18 14:03 LDL Cholesterol, Calc 104 mg/dL (0-99) H 12/05/18 14:03 HDL Cholesterol 44 mg/dL (40-60) 12/05/18 14:03 TSH 0.419 mIU/L (0.465-4.680) L 12/05/18 14:03 Free T4 1.42 ng/dL (0.78-2.19) 12/05/18 14:03 Fluid Source Pleural 12/01/18 10:45 Fluid Color Yellow 12/01/18 10:45 Fluid Appearance Clear 12/01/18 10:45 Fluid RBC 445 /uL 12/01/18 10:45 Fluid Nucleated Cells 55 /uL 12/01/18 10:45 Fluid Polynuclear WBCs 5 % 12/01/18 10:45 Fluid Mononuclear WBCs 95 % 12/01/18 10:45 Body Fluid Glucose Source Pleural Fluid 12/01/18 10:45 Fluid Glucose 215 mg/dL 12/01/18 10:45 Body Fluid Protein Source Pleural Fluid 12/01/18 10:45 Fluid Total Protein 1862 mg/dL 12/01/18 10:45 Body Fluid LDH Source Pleural Fluid 12/01/18 10:45 Fluid LDH 101 U/L 12/01/18 10:45 Influenza Type A RNA Not Detected (Not Detectd) 11/30/18 12:12 Influenza Type B (PCR) Not Detected (Not Detectd) 11/30/18 12:12 Microbiology 11/30/18 11:56 Blood Blood Culture - Preliminary No Growth after 120 hours 12/01/18 10:45 Pleural Fluid Gram Stain - Final 12/01/18 10:45 Pleural Fluid Body Fluid Culture - Final Assessment and Plan (1) Myocardial infarction Current Visit: Yes Status: Acute Code(s): I21.9 - ACUTE MYOCARDIAL INFARCTION, UNSPECIFIED SNOMED Code(s): 42930062 (2) Acute systolic (congestive) heart failure Current Visit: Yes Status: Acute Code(s): I50.21 - ACUTE SYSTOLIC (CONGESTIVE) HEART FAILURE SNOMED Code(s): 489455645 (3) Congestive heart failure Current Visit: Yes Status: Acute Code(s): I50.9 - HEART FAILURE, UNSPECIFIED SNOMED Code(s): 48227676 (4) Venous stasis ulcer of right lower leg with edema of right lower leg Narrative/Plan: 78-year-old male that has a history of multiple medical troubles with known coronary artery disease who presents to Hospital feeling poorly. Evidence of a subacute myocardial infarction. Is being treated by cardiology with medication changes is feeling better. There is evidence of a right pleural effusion and this was tapped without evidence of any significant empyema or infection in that site. Patient is evidence of chronic ulcerations lower extremities and relates that the ulceration of the right leg has been present for approximately 18 months and [facility] as well as a local custodial manager. Due to his [facility] insurance was no longer able to see the custodial manager. He does not want to drive to [place] to see dermatology. This time he appears to have some chronic skin changes the lower extremities and constantly to the plaque-like areas the topical triamcinolone will be applied. The open ulceration hydrogel dressing is applied. This can be applied twice a day and then rolled gauze and Gianni wrap should be applied temp of lower extremity edema. Elevation of the limbs at rest will be helpful. If possible would be happy to see him in the wound healing center here [facility] after his discharge. The ulceration does not appear to be infected. 12/05/2018 patient has not been seen by cardiovascular surgery and there are plans for potential cardiac revascularization. Wounds are being treated as above with the triamcinolone and hydrogel dressing. No evidence of empyema Chest pain is improved at this point in time. Cardiac catheterization was performed today revealing evidence of the multivessel disease and interventions potentially as above. Echocardiogram does reveal evidence of impaired left ventricular function. Current Visit: Yes Status: Acute Code(s): I83.019 - VARICOSE VEINS OF RIGHT LOWER EXTREMITY W ULCER OF UNSP SITE; I83.891 - VARICOSE VEINS OF R LOW EXTREM WITH OTHER COMPLICATIONS; L97.919 - NON-PRS CHRONIC ULC UNSP PRT OF R LOW LEG W UNSP SEVERITY; R60.9 - EDEMA, UNSPECIFIED SNOMED Code(s): 35269833610432050
[2018-12-05 23:18] LABS: Glucose,Whole Blood 202 mg/dL (75-99)
[2018-12-06 04:29] LABS: Hepatitis A Antibody IgM Non-Reactive (Non-Reactive); Hepatitis B Core IgM Non-Reactive (Non-Reactive)
[2018-12-06] MEDS: INSULIN ASPART (NovoLOG) 100 UNIT/ML VIAL SQ SCH ×5 (05:32→22:06)
[2018-12-06 06:05] LABS: Glucose,Whole Blood 95 mg/dL (75-99)
[2018-12-06] MEDS: CARVEDILOL 3.125 MG TAB PO SCH ×2 (06:33→17:38)
[2018-12-06] MEDS: SODIUM CHLORIDE 0.9% 1,000 ML IV SCH ×3 (06:34→16:18)
[2018-12-06 07:20] LABS: Potassium 4.9 mmol/L (3.5-5.1)
[2018-12-06 07:23] LABS: Amorphous Sediment,Urine Occasional /hpf; Appearance,Urine Turbid (Clear); Bacteria,Urine Rare /hpf; Bilirubin,Urine Negative (Negative); Blood,Urine Moderate (Negative); Color,Urine Yellow; Glucose,Urine (UA) Negative (Negative); Hyaline Casts,Urine 6 /lpf (0-2); Ketones,Urine Negative (Negative); Leukocyte Esterase,Urine Moderate (Negative); Mucus,Urine Many /hpf; Nitrite,Urine Negative (Negative); PH, Urine 5.5 (5.0-8.0); Protein,Urine 2+ (Negative); RBC,Urine 123 /hpf (0-5); Squamous Epithelial Cell,Urine 1 /hpf (0-4); Triple Phosphate Crystal,Urine Few /hpf; Urobilinogen,Urine <2.0 mg/dL (<2.0); WBC,Urine 26 /hpf (0-5)
[2018-12-06 07:57] LABS: Basophils # (A) 0.1 k/uL (0-0.2); Basophils % (A) 0 %; Eosinophils # (A) 0.1 k/uL (0-0.7); Eosinophils % (A) 0 %; HCT 48.4 % (39.0-53.0); HGB 15.2 gm/dL (13.0-17.5); Lymphocytes # (A) 0.8 k/uL (1.0-4.8); Lymphocytes % (A) 3 %; MCH 26.7 pg (25.0-35.0); MCHC 31.3 g/dL (31.0-37.0); MCV 85.3 fL (80.0-100.0); Mean Platelet Volume 7.1; Monocytes # (A) 1.9 k/uL (0-1.0); Monocytes % (A) 8 %; Neutrophils # (A) 20.3 k/uL (1.3-7.7); Neutrophils % (A) 87 %; Platelet Count 347 k/uL (150-450); RBC 5.67 m/uL (4.30-5.90); RDW 14.4 % (11.5-15.5); WBC 23.4 k/uL (3.8-10.6)
[2018-12-06] MEDS: IPRATROPIUM-ALBUTEROL 3 ML NEB INHALATION SCH ×4 (09:12→20:38)
[2018-12-06] MEDS: ASPIRIN 81 MG PO SCH (09:15)
[2018-12-06] MEDS: MUPIROCIN 2% OINT 22 GM TUBE NASAL SCH ×2 (09:15→22:36)
[2018-12-06] MEDS: FUROSEMIDE 40 MG TAB PO SCH ×2 (09:15→16:16)
[2018-12-06] MEDS: LOSARTAN 25 MG TAB PO SCH (09:15)
[2018-12-06] MEDS: TRIAMCINOLONE ACET 0.1% OINTMENT 15 GM TUBE TOPICAL SCH ×2 (09:16→22:10)
[2018-12-06] MEDS: PANTOPRAZOLE 40 MG TABLET PO SCH (09:16)
[2018-12-06] MEDS: predniSONE 20 MG TAB PO SCH (09:16)
[2018-12-06] MEDS: INSULIN DETEMIR (LEVEMIR) 100 UNIT/ML SYR SQ SCH ×2 (09:17→22:06)
--- NOTE | 2018-12-06 11:03 | P.PN ---
Subjective This is a pleasant 78 years old male with past medical history of atrial fibrillation, diabetes mellitus, hyperlipidemia, osteoarthritis, congestive heart failure and ischemic heart disease. Patient presents because of worsening dyspnea over one week duration with no chest pain however he has some cough and yellow phlegm. No palpitation or dizziness, no change in urine or bowel habits. No fever. Patient blood pressure is stable at 146/82, saturating 92% on 4 L, he is afebrile. He has mild leukocytosis of 11.9 K, sodium 136, creatinine 1.5 which is close to baseline, glucose 471. Troponin 13.8, influenza is negative. Chest x-ray: Stable bilateral infiltrates suspicious for pneumonia, possible CHF as per radiologist report. EKG showing normal sinus rhythm at [address] depression in V2 to V6. QTC 510. In the emergency room he got aspirin, Coreg and Lasix once. Patient was started on Lasix drip and heparin drip. He is on losartan metoprolol as well. 12/01/2018 patient is seen today in the ICU. His resting comfortably and feels better. His feeling was better. Still no chest pain. Dry cough.vitals his stable although he isn't tachypneic. Saturating 99% on 4 L oxygen via NC.creatinine is 1.69. Troponins are elevated at 13.8, 28.6, 20.2. Patient is been followed closely by cardiology and pulmonary/critical care team.the plan for cardiac cath tomorrow. 12/02/2018 Patient remains in the ICU, he looks tired and lethargic. Denies overt chest pain, limits rapid breathing. No coughing. He Tolerated Diet Well. Patient Is Supposed to Go for Cardiac Cath Today However His Kidney Function Was Trending up from 1.6 to 2.0. Patient Was Placed Back on Heparin Drip. Sugar was running between 147-60. Patient states that he was taking 50 units of insulin 70:30 twice a day. Yesterday we started him on insulin therapy 30 units at bedtime, however today was started eating more and we increased his insulin dose to 30 units twice a day, plus sliding scale. Vitas looks stable. He still have leukocytosis of 19.5 K. Chest x-ray: Trace pleural effusion. Status post thoracocentesis. Patient is being followed closely in the intensive care unit by cardiology and pulmonary team. Today also patient was placed on Lasix 40 mg twice a day. 12/03/2018 Patient feels well in the ICU His dyspnea looks better. No chest pain. His sugar was low normal this morning around 60-70. We lowered his ninth dose of Levemir from 30 down to 20 units Continue with daytime Levemir dose of 3 units.sugar is improved currently at 128. Creatinine is improved at 1.74.we will continue with IV heparin. Statin has been added by fold skiver. Patient is planned to have coronary angiography. 12/04/2018 Patient was transferred to the selective unit. He was lying in bed comfortable not in distress with no chest pain. Hemodynamically stable. Labs reviewed showing improved leukocytosis from 17.7 down to 15.7 K. Creatinine is trending down to 1.5. Cardiology team following the case and possible cardiac cath tomorrow. Also patient has blisters in his leg, silver sulfadiazine was started with wound team consult 12/05/2018 Patient underwent cardiac cath today showing critical lesion involving the circumflex artery with 90-95% stenosis of the RCA. With 70% stenosis of the LAD. And cardiology recommended surgery versus multiple stent placement. Patient post cardiac cath was comfortable denied chest pain or dyspnea. Mild hematoma at the right groin. Vitals are stable. 12/06/2018 Patient is been evaluated by cardiothoracic surgery team for possible CABG. For his triple-vessel coronary artery disease. Patient has been followed by several consultants including cardiothoracic and cardiology team. Patient currently stable with no chest pain or dyspnea. Hemodynamically stable. His WBC is elevated however he is on steroids CONSTITUTIONAL: No fever, no malaise, no fatigue. HEENT: No recent visual problems or hearing problems. Denied any sore throat. CARDIOVASCULAR: no palpitations, no syncope. PULMONARY:, no hemoptysis. GASTROINTESTINAL: No diarrhea, no nausea, no vomiting, no abdominal pain. Normoactive bowel sounds. NEUROLOGICAL: No headaches, no weakness, no numbness. HEMATOLOGICAL: Denies any bleeding or petechiae. GENITOURINARY: Denies any burning micturition, frequency, or urgency. MUSCULOSKELETAL/RHEUMATOLOGICAL: Denies any joint pain, swelling, or any muscle pain. ENDOCRINE: Denies any polyuria or polydipsia. medication: Albuterol, Augmentin, aspirin, Coreg, Lasix, losartan, salmeterol, Protonix, and heparin drip. Objective - Vital Signs Vital signs: Vital Signs Temp 97.7 F 12/06/18 08:00 Pulse 76 12/06/18 09:26 Resp 18 12/06/18 08:00 BP 161/87 12/06/18 08:00 Pulse Ox 98 12/06/18 08:00 Intake & Output 12/05/18 12/06/18 12/06/18 18:59 06:59 18:59 Intake Total 420 390 Output Total 1100 1400 Balance -680 -1400 390 Weight 85 kg Intake: IV 60 150 0.9 NACL 150 Oral 360 240 Output: Urine 1100 1400 Other: Voiding Method Indwelling Catheter # Voids 0 1 - Exam GENERAL: The patient is alert and oriented x3, not in any acute distress. Well developed, well nourished. HEENT: Pupils are round and equally reacting to light. EOMI. No scleral icterus. No conjunctival pallor. Normocephalic, atraumatic. No pharyngeal erythema. No thyromegaly. CARDIOVASCULAR: S1 and S2 present. No murmurs, rubs, or gallops. -PULMONARY: Chest is clear to auscultation, scattered bilateral wheezing and basal crackles. ABDOMEN: Soft, nontender, nondistended, normoactive bowel sounds. No palpable organomegaly. MUSCULOSKELETAL: No joint swelling or deformity. EXTREMITIES: No cyanosis, clubbing, or pedal edema. NEUROLOGICAL: Gross neurological examination did not reveal any focal deficits. SKIN: No rashes. - Labs CBC & Chem 7: 12/06/18 06:46 12/06/18 06:46 Labs: Abnormal Lab Results - Last 24 Hours (Table) 12/05/18 12/05/18 12/05/18 Range/Units 11:48 14:03 14:03 WBC 18.0 H (3.8-10.6) k/uL Neutrophils # 16.7 H (1.3-7.7) k/uL Lymphocytes # 0.3 L (1.0-4.8) k/uL Monocytes # (0-1.0) k/uL Carbon Dioxide (22-30) mmol/L BUN 58 H (9-20) mg/dL Creatinine 1.28 H (0.66-1.25) mg/dL Glucose 146 H (74-99) mg/dL POC Glucose (mg/dL) 114 H (75-99) mg/dL Calcium 7.8 L (8.4-10.2) mg/dL Magnesium 2.4 H (1.6-2.3) mg/dL Total Protein 5.5 L (6.3-8.2) g/dL Albumin 2.8 L (3.5-5.0) g/dL LDL Cholesterol, Calc 104 H (0-99) mg/dL TSH 0.419 L (0.465-4.680) mIU/L Urine Protein (Negative) Urine Blood (Negative) Ur Leukocyte Esterase (Negative) Urine RBC (0-5) /hpf Urine WBC (0-5) /hpf Triple Phos Crystals (None) /hpf Amorphous Sediment (None) /hpf Urine Bacteria (None) /hpf Hyaline Casts (0-2) /lpf Urine Mucus (None) /hpf 12/05/18 12/05/18 12/06/18 Range/Units 16:59 20:17 06:15 WBC (3.8-10.6) k/uL Neutrophils # (1.3-7.7) k/uL Lymphocytes # (1.0-4.8) k/uL Monocytes # (0-1.0) k/uL Carbon Dioxide (22-30) mmol/L BUN (9-20) mg/dL Creatinine (0.66-1.25) mg/dL Glucose (74-99) mg/dL POC Glucose (mg/dL) 198 H 202 H (75-99) mg/dL Calcium (8.4-10.2) mg/dL Magnesium (1.6-2.3) mg/dL Total Protein (6.3-8.2) g/dL Albumin (3.5-5.0) g/dL LDL Cholesterol, Calc (0-99) mg/dL TSH (0.465-4.680) mIU/L Urine Protein 2+ H (Negative) Urine Blood Moderate H (Negative) Ur Leukocyte Esterase Moderate H (Negative) Urine RBC 123 H (0-5) /hpf Urine WBC 26 H (0-5) /hpf Triple Phos Crystals Few H (None) /hpf Amorphous Sediment Occasional H (None) /hpf Urine Bacteria Rare H (None) /hpf Hyaline Casts 6 H (0-2) /lpf Urine Mucus Many H (None) /hpf 12/06/18 12/06/18 Range/Units 06:46 06:46 WBC 23.4 H (3.8-10.6) k/uL Neutrophils # 20.3 H (1.3-7.7) k/uL Lymphocytes # 0.8 L (1.0-4.8) k/uL Monocytes # 1.9 H (0-1.0) k/uL Carbon Dioxide 33 H (22-30) mmol/L BUN 53 H (9-20) mg/dL Creatinine 1.34 H (0.66-1.25) mg/dL Glucose 58 L (74-99) mg/dL POC Glucose (mg/dL) (75-99) mg/dL Calcium 8.0 L (8.4-10.2) mg/dL Magnesium (1.6-2.3) mg/dL Total Protein (6.3-8.2) g/dL Albumin (3.5-5.0) g/dL LDL Cholesterol, Calc (0-99) mg/dL TSH (0.465-4.680) mIU/L Urine Protein (Negative) Urine Blood (Negative) Ur Leukocyte Esterase (Negative) Urine RBC (0-5) /hpf Urine WBC (0-5) /hpf Triple Phos Crystals (None) /hpf Amorphous Sediment (None) /hpf Urine Bacteria (None) /hpf Hyaline Casts (0-2) /lpf Urine Mucus (None) /hpf Microbiology - Last 24 Hours (Table) 12/05/18 17:00 Nasal Screen MRSA/MSSA - Preliminary Nasal Swab 11/30/18 11:56 Blood Culture - Preliminary Blood No Growth after 120 hours 12/01/18 10:45 Gram Stain - Final Pleural Fluid Body Fluid Culture - Final Assessment and Plan Assessment: Elevated troponin, mostly Non-STEMI Possible acute on chronic congestive heart failure Less likely patient has pneumonia Distress in both legs History of coronary artery disease History of congestive heart failure History of atrial fibrillation Diabetes mellitus Hyperlipidemia Plan: This is a pleasant 78 years old male who presents because of the STEMI and acute CHF, continue with diuretics, heparin drip, continue with beta blockers and MELIA inhibitor. Cardiology consult. Continue with antibiotics. Wound consult Labs and medication were reviewed.. Continue same treatment. Continue with symptomatic treatment. Resume home medication. Monitor lytes and vitals. DVT and GI prophylaxis. Further recommendations of the clinical course of the patient DVT prophylaxis: heparin GI Prophylaxis: Pepcid Prognosis is guarded
[2018-12-06 11:58] LABS: Glucose,Whole Blood 69 mg/dL (75-99)
--- NOTE | 2018-12-06 12:18 | P.PN ---
Subjective Progress Note Date: 12/06/18 This is a 78-year-old white male with history of paroxysmal atrial flutter status post transesophageal echo and cardioversion in August of 2018. Patient has been following up at the [facility] for his cardiac issues. Although his previous cardioversion was done by few months back. Patient is also known to have history of type 2 diabetes, hypertension, CAD with prior stent placements, and for the last week and a half, the patient has been complaining of shortness of breath and uncomfortable feeling in the chest. The uncomfortable feeling is described as heaviness in the chest. And this one and on for at least a day or so. He shortness of breath has become more progressive over the last week and a half, he was seen in the [facility] and he was sent to the emergency room for further evaluation. Upon presentation to the ER, patient was noted to be short of breath, chest x-ray showed evidence of pulmonary edema with bilateral pleural effusions,his EKG was suggestive of inferior posterior wall SD, and patient was placed on Lasix drip, heparin, admitted to the intensive care unit. Patient did undergo thoracentesis in the intensive care unit. He did rule in for a non-ST elevation myocardial infarction, was taken to the cardiac catheterization lab yesterday and was found to have a critical lesion involving the ostium of the circumflex which seemed to be the culprit vessel, 90-95% stenosis of the ostium and the proximal portion of the RCA which may be chronic. There is also about a 70% stenosis in the proximal LAD and proximal diagonal. The stent in the mid LAD appeared to be patent. Multiple lesions involving the distal LAD, surgical consultation was requested. Patient has been seen in consultation by cardiothoracic surgery and the plan is to proceed with coronary artery bypass grafting surgery on of this week. He was seen and examined this morning, denied any chest pain or difficulty in breathing. Blood pressure 144/70 with a heart rate in the 60s to 70s, 98% on room air. White blood cell count 23.4, hemoglobin 15.2, platelet count 347. Sodium 140, potassium 4.9, BUN 53 and creatinine 1.3. Patient's current medications include aspirin 81 mg daily, Coreg 3.125 mg twice a day, Lasix 40 twice a day, heparin drip, losartan 25 mg daily, Pravachol 20 daily. Objective - Vital Signs Vital signs: Vital Signs Temp 97.7 F 12/06/18 08:00 Pulse 67 12/06/18 11:59 Resp 16 12/06/18 11:59 BP 144/75 12/06/18 11:42 Pulse Ox 98 12/06/18 11:42 Intake & Output 12/05/18 12/06/18 12/06/18 18:59 06:59 18:59 Intake Total 420 390 Output Total 1100 1400 Balance -680 -1400 390 Weight 85 kg Intake: IV 60 150 0.9 NACL 150 Oral 360 240 Output: Urine 1100 1400 Other: Voiding Method Indwelling Catheter # Voids 0 1 - Exam GENERAL EXAM: Alert, pleasant, 78-year-old white male comfortable in no apparent distress. HEAD: Normocephalic/atraumatic. EYES: Normal reaction of pupils, equal size. Conjunctiva pink, sclera white. NOSE: Clear with pink turbinates. THROAT: No erythema or exudates. NECK: No masses, no JVD, no thyroid enlargement, no adenopathy. CHEST: No chest wall deformity. Symmetrical expansion. LUNGS: Equal air entry with no crackles, wheeze, rhonchi or dullness. CVS: Regular rate and rhythm, normal S1 and S2, no gallops, no murmurs, no rubs ABDOMEN: Soft, nontender. No hepatosplenomegaly, normal bowel sounds, no guarding or rigidity. EXTREMITIES: No clubbing, no edema, no cyanosis, 2+ pulses and upper and lower extremities. MUSCULOSKELETAL: Muscle strength and tone normal. SPINE: No scoliosis or deformity SKIN: No rashes CENTRAL NERVOUS SYSTEM: Alert and oriented -3. No focal deficits, tone is normal in all 4 extremities. PSYCHIATRIC: Alert and oriented -3. Appropriate affect. Intact judgment and insight. - Labs CBC & Chem 7: 12/06/18 06:46 12/06/18 06:46 Labs: Abnormal Lab Results - Last 24 Hours (Table) 12/05/18 12/05/18 12/05/18 Range/Units 14:03 14:03 16:59 WBC 18.0 H (3.8-10.6) k/uL Neutrophils # 16.7 H (1.3-7.7) k/uL Lymphocytes # 0.3 L (1.0-4.8) k/uL Monocytes # (0-1.0) k/uL Carbon Dioxide (22-30) mmol/L BUN 58 H (9-20) mg/dL Creatinine 1.28 H (0.66-1.25) mg/dL Glucose 146 H (74-99) mg/dL POC Glucose (mg/dL) 198 H (75-99) mg/dL Calcium 7.8 L (8.4-10.2) mg/dL Magnesium 2.4 H (1.6-2.3) mg/dL Total Protein 5.5 L (6.3-8.2) g/dL Albumin 2.8 L (3.5-5.0) g/dL LDL Cholesterol, Calc 104 H (0-99) mg/dL TSH 0.419 L (0.465-4.680) mIU/L Urine Protein (Negative) Urine Blood (Negative) Ur Leukocyte Esterase (Negative) Urine RBC (0-5) /hpf Urine WBC (0-5) /hpf Triple Phos Crystals (None) /hpf Amorphous Sediment (None) /hpf Urine Bacteria (None) /hpf Hyaline Casts (0-2) /lpf Urine Mucus (None) /hpf 12/05/18 12/06/18 12/06/18 Range/Units 20:17 06:15 06:46 WBC 23.4 H (3.8-10.6) k/uL Neutrophils # 20.3 H (1.3-7.7) k/uL Lymphocytes # 0.8 L (1.0-4.8) k/uL Monocytes # 1.9 H (0-1.0) k/uL Carbon Dioxide (22-30) mmol/L BUN (9-20) mg/dL Creatinine (0.66-1.25) mg/dL Glucose (74-99) mg/dL POC Glucose (mg/dL) 202 H (75-99) mg/dL Calcium (8.4-10.2) mg/dL Magnesium (1.6-2.3) mg/dL Total Protein (6.3-8.2) g/dL Albumin (3.5-5.0) g/dL LDL Cholesterol, Calc (0-99) mg/dL TSH (0.465-4.680) mIU/L Urine Protein 2+ H (Negative) Urine Blood Moderate H (Negative) Ur Leukocyte Esterase Moderate H (Negative) Urine RBC 123 H (0-5) /hpf Urine WBC 26 H (0-5) /hpf Triple Phos Crystals Few H (None) /hpf Amorphous Sediment Occasional H (None) /hpf Urine Bacteria Rare H (None) /hpf Hyaline Casts 6 H (0-2) /lpf Urine Mucus Many H (None) /hpf 12/06/18 12/06/18 Range/Units 06:46 11:38 WBC (3.8-10.6) k/uL Neutrophils # (1.3-7.7) k/uL Lymphocytes # (1.0-4.8) k/uL Monocytes # (0-1.0) k/uL Carbon Dioxide 33 H (22-30) mmol/L BUN 53 H (9-20) mg/dL Creatinine 1.34 H (0.66-1.25) mg/dL Glucose 58 L (74-99) mg/dL POC Glucose (mg/dL) 69 L (75-99) mg/dL Calcium 8.0 L (8.4-10.2) mg/dL Magnesium (1.6-2.3) mg/dL Total Protein (6.3-8.2) g/dL Albumin (3.5-5.0) g/dL LDL Cholesterol, Calc (0-99) mg/dL TSH (0.465-4.680) mIU/L Urine Protein (Negative) Urine Blood (Negative) Ur Leukocyte Esterase (Negative) Urine RBC (0-5) /hpf Urine WBC (0-5) /hpf Triple Phos Crystals (None) /hpf Amorphous Sediment (None) /hpf Urine Bacteria (None) /hpf Hyaline Casts (0-2) /lpf Urine Mucus (None) /hpf Microbiology - Last 24 Hours (Table) 12/05/18 17:00 Nasal Screen MRSA/MSSA - Preliminary Nasal Swab 11/30/18 11:56 Blood Culture - Preliminary Blood No Growth after 120 hours Assessment and Plan Plan: Plan: # 1 subacute inferoposterior myocardial infarction #2 acute congestive heart failure secondary to subacute myocardial infarction, systolic , ischemic cardiomyopathy and impaired LV function with ejection fraction 40-45% #3 multivessel coronary artery disease, scheduled for coronary artery bypass grafting surgery on #4 type 2 diabetes, on insulin patient is normally on glipizide insulin and metformin. #5 hypertension #6 hyperlipidemia #7 history of atrial flutter requiring cardioversion in August of 2018. #8 history of underlying coronary artery disease, and previous PCI. #9 status post right sided thoracentesis Plan We will continue the patient on his current medications. He is scheduled to undergo coronary artery bypass grafting surgery on of this week. We will continue to follow. DNP note has been reviewed, I agree with a documented findings and plan of care. Patient was seen and examined.
[2018-12-06 12:19] LABS: Glucose,Whole Blood 87 mg/dL (75-99)
--- NOTE | 2018-12-06 15:48 | P.PN ---
Subjective Progress Note Date: 12/06/18 Principal diagnosis: subacute myocardial infarction with systolic congestive heart failure This is a 78-year-old white male with history of paroxysmal atrial flutter status post transesophageal echo and cardioversion in August of 2018. Patient has been following up at [facility] for his cardiac issues. Although his previous cardioversion was done by few months back. Patient is also known to have history of type 2 diabetes, hypertension, and for the last week and a half, the patient has been complaining of shortness of breath and uncomfortable feeling in the chest. The uncomfortable feeling is described as heaviness in the chest. And this one and on for at least a day or so. He shortness of breath has become more progressive over the last week and a half, he was seen in the [facility] and he was sent to the emergency room for further evaluation. Upon presentation to the ER, patient was noted to be short of breath, chest x-ray showed evidence of pulmonary edema with bilateral pleural effusions, seen by cardiology while in the ER, his EKG was suggestive of inferior posterior wall IL, and patient was placed on Lasix drip, heparin, admitted to the intensive care unit, and I was asked to see him on consultation. Patient diuresed about 1 L of fluid overnight, however his chest x-ray continues to show bilateral pleural effusions, and I went ahead today and performed a right sided thoracentesis, I was able to drain about 900 mL of fluid from the right pleural space. The amount of the fluid on the left side was felt to be minimal, hence no need to perform thoracentesis on the left side at this point. In the meantime the patient was placed back on heparin, placed back on his cardiac meds, remains on diuretics, and may give a require cardiac catheterization. However his renal functioning has been noted to be compromise, and needs to be monitored. His CBC on admission showed WBC count of 11.8 hemoglobin of 13.8, his BUN was 31, and creatinine of 1.56. Blood sugar was noted to be 440, hence the patient was started on insulin drip upon arrival to the ICU last night. Troponin was significantly elevated at 26.4 and his BNP level was 23,300. Influenza screen was negative. Patient was reevaluated today on 12/02/2018, patient is feeling better, breathing a lot easier, his chest x-ray showed improvement, hardly any fluid in both lungs except for a small tiny right-sided pleural effusion/residual from his last thoracentesis. Patient is being considered for possible cardiac catheterization today. However his renal functioning is a bit worse today compared to yesterday.BUN is 59 and creatinine is 2.01. Patient is off Lasix drip, however he is on Lasix IV push. His urine output is excellent. Patient has no cough no wheezing no shortness of breath no chest pain. All labs were reviewed today, he has a bit of leukocytosis with WBC count of 19.5, otherwise CBC is normal, and renal profile as noted above. Chest x-ray as noted earlier. Reevaluated today on 12/03/2018, patient continues to do well, his cardiac catheterization was postponed until Wednesday mostly because of his worsening renal functioning. Pulmonary-gaspar the patient is doing better, breathing a lot easier, denies any cough no wheezing no shortness of breath. And his chest x- ray continues to show complete resolution of his bilateral pleural effusions and pulmonary edema. WBC count is a bit elevated at 17.7, PTT is therapeutic, electrolytes are normal renal profile is improving BUN is down to 69 creatinine is down to 1.74. The patient is seen today 12/04/2018 in follow-up on the selective care unit. He is currently awake and alert in no acute distress. Up ambulating in his room. He denies any worsening shortness of breath, cough or congestion. He is maintaining good O2 saturations in the 90s on room air. He has been afebrile. Hemodynamically stable. Pleural fluid culture reveals no growth. Blood culture reveals no growth. White count 15.7. Hemoglobin 15.3. Creatinine 1.50. On 12/05/2018 patient seen in follow-up on selective care unit, patient had just returned from heart catheterization and he was found to have 60-70% lesion of the proximal LAD, first diagonal branch was 70-80% stenosis, and 99% stenosis of the ostium of the circumflex and RCA lesion of 95%. He is resting comfortably in bed currently, he is eating lunch, no complaints of chest pain or shortness of breath, referral was put in for cardiothoracic surgery for possibility of bypass grafting. On 12/06/2018 patient seen in follow-up on selective care unit, patient surgery is scheduled for , he sitting up in a recliner, in no acute distress, no shortness of breath or chest pain, lung sounds are positive for bibasilar rales, no significant rhonchi or wheezing. 0.9 normal saline at a rate of 50 ML per hour, heparin drip at 800 units per hour. One blood cell count is 23.4, hemoglobin is 15.2, sodium is 140, potassium is 4.9, chloride is 105, CO2 33, BUN is 53, creatinine is 1.34. Bedside PFT showed FEV1 of 47% of predicted, moderately severe obstructive pulmonary defect Objective - Vital Signs Vital signs: Vital Signs Temp 97.7 F 12/06/18 08:00 Pulse 71 12/06/18 12:09 Resp 16 12/06/18 12:09 BP 144/75 12/06/18 11:42 Pulse Ox 98 12/06/18 11:42 Intake & Output 12/05/18 12/06/18 12/06/18 18:59 06:59 18:59 Intake Total 420 570 Output Total 1100 1400 500 Balance -680 -1400 70 Weight 85 kg Intake: IV 60 150 0.9 NACL 150 Oral 360 420 Output: Urine 1100 1400 500 Other: Voiding Method Indwelling Catheter # Voids 0 1 1 - Exam GENERAL EXAM: Alert, pleasant, 78-year-old white male comfortable in no apparent distress. HEAD: Normocephalic/atraumatic. EYES: Normal reaction of pupils, equal size. Conjunctiva pink, sclera white. NOSE: Clear with pink turbinates. THROAT: No erythema or exudates. NECK: No masses, no JVD, no thyroid enlargement, no adenopathy. CHEST: No chest wall deformity. Symmetrical expansion. LUNGS: Equal air entry with basilar crackles CVS: Regular rate and rhythm, normal S1 and S2, no gallops, no murmurs, no rubs ABDOMEN: Soft, nontender. No hepatosplenomegaly, normal bowel sounds, no guarding or rigidity. EXTREMITIES: No clubbing, no edema, no cyanosis, 2+ pulses and upper and lower extremities. MUSCULOSKELETAL: Muscle strength and tone normal. SPINE: No scoliosis or deformity SKIN: No rashes CENTRAL NERVOUS SYSTEM: Alert and oriented -3. No focal deficits, tone is normal in all 4 extremities. PSYCHIATRIC: Alert and oriented -3. Appropriate affect. Intact judgment and insight. - Labs CBC & Chem 7: 12/06/18 06:46 12/06/18 06:46 Labs: Abnormal Lab Results - Last 24 Hours (Table) 12/05/18 12/05/18 12/06/18 Range/Units 16:59 20:17 06:15 WBC (3.8-10.6) k/uL Neutrophils # (1.3-7.7) k/uL Lymphocytes # (1.0-4.8) k/uL Monocytes # (0-1.0) k/uL Carbon Dioxide (22-30) mmol/L BUN (9-20) mg/dL Creatinine (0.66-1.25) mg/dL Glucose (74-99) mg/dL POC Glucose (mg/dL) 198 H 202 H (75-99) mg/dL Calcium (8.4-10.2) mg/dL Urine Protein 2+ H (Negative) Urine Blood Moderate H (Negative) Ur Leukocyte Esterase Moderate H (Negative) Urine RBC 123 H (0-5) /hpf Urine WBC 26 H (0-5) /hpf Triple Phos Crystals Few H (None) /hpf Amorphous Sediment Occasional H (None) /hpf Urine Bacteria Rare H (None) /hpf Hyaline Casts 6 H (0-2) /lpf Urine Mucus Many H (None) /hpf 12/06/18 12/06/18 12/06/18 Range/Units 06:46 06:46 11:38 WBC 23.4 H (3.8-10.6) k/uL Neutrophils # 20.3 H (1.3-7.7) k/uL Lymphocytes # 0.8 L (1.0-4.8) k/uL Monocytes # 1.9 H (0-1.0) k/uL Carbon Dioxide 33 H (22-30) mmol/L BUN 53 H (9-20) mg/dL Creatinine 1.34 H (0.66-1.25) mg/dL Glucose 58 L (74-99) mg/dL POC Glucose (mg/dL) 69 L (75-99) mg/dL Calcium 8.0 L (8.4-10.2) mg/dL Urine Protein (Negative) Urine Blood (Negative) Ur Leukocyte Esterase (Negative) Urine RBC (0-5) /hpf Urine WBC (0-5) /hpf Triple Phos Crystals (None) /hpf Amorphous Sediment (None) /hpf Urine Bacteria (None) /hpf Hyaline Casts (0-2) /lpf Urine Mucus (None) /hpf Microbiology - Last 24 Hours (Table) 12/05/18 17:00 Nasal Screen MRSA/MSSA - Preliminary Nasal Swab 11/30/18 11:56 Blood Culture - Preliminary Blood No Growth after 120 hours Assessment and Plan Plan: 1 subacute inferoposterior myocardial infarction 2 acute congestive heart failure secondary to subacute myocardial infarction, suspect ischemic cardiomyopathy and impaired LV function with ejection fraction 40-45% 3 multivessel coronary artery disease, patient may need coronary artery bypass grafting 4 type 2 diabetes, on insulin patient is normally on glipizide insulin and metformin. 5 hypertension, patient is normally on Lopressor 6 hyperlipidemia 7 history of atrial flutter requiring cardioversion in August of 2018. 8 history of underlying coronary artery disease, and previous PCI. 9 status post right sided thoracentesis, fluid was reviewed today, and it is transudative in nature, this is cardiac in nature and not related to infection. Plan: Continue current medical treatment, bedside PFT was reviewed, showed moderately severe obstruction, with FEV1 of 47% of predicted. Continue with nebulized bronchodilators every 6 hours and as needed, oral prednisone. Surgery scheduled for . Continue to follow I performed a history & physical examination of the patient and discussed their management with my nurse practitioner, Demetria Ramos. I reviewed the nurse practitioner's note and agree with the documented findings and plan of care. Lung sounds are positive for clear breath sounds. The findings and the imp ression was discussed with the patient. I attest to the documentation by the nurse practitioner. Time with Patient: Less than 30
--- NOTE | 2018-12-06 16:30 | P.PN ---
Subjective Progress Note Date: 12/06/18 Principal diagnosis: Coronary artery disease with a critical lesion involving the ostium of the circumflex, proximal right coronary artery and multiple lesions to the left anterior descending coronary artery and diagonal coronary artery, non-ST elevated myocardial infarction with elevated troponins as high as 28.600 this admission, congestive heart failure, acute on chronic systolic and diastolic, right pleural effusion status post right thoracentesis with 900 mL of yellow fl uid drained this admission, venous stasis ulcers to his right lower extremity, diabetes mellitus type 2 with an admission hemoglobin A1c of 7.8%, history of hypertension, hyperlipidemia, prostate disorder and a history of coronary artery disease with multiple stent placements in the past. The patient is sitting up to the bedside chair on the [address] [place] [id number] cardiac stepdown unit. He is in no acute distress. He denies any complaints of pain or shortness of breath currently or throughout the night. He remains on 3 L nasal cannula with his oxygen saturation is 97%. He is achieving 1000 mL on his inc entive spirometry. A bedside FEV1 was completed today with a value of 47% of predicted. Gianni wraps in place to his bilateral lower extremities. He remains hemodynamically stable. Heparin drip infusing at 800 units per hour. Objective - Vital Signs Vital signs: Vital Signs Temp 97.7 F 12/06/18 08:00 Pulse 71 12/06/18 12:09 Resp 16 12/06/18 12:09 BP 144/75 12/06/18 11:42 Pulse Ox 98 12/06/18 11:42 Intake & Output 12/05/18 12/06/18 12/06/18 18:59 06:59 18:59 Intake Total 420 390 Output Total 1100 1400 Balance -680 -1400 390 Weight 85 kg Intake: IV 60 150 0.9 NACL 150 Oral 360 240 Output: Urine 1100 1400 Other: Voiding Method Indwelling Catheter # Voids 0 1 - Constitutional General appearance: Present: cooperative, no acute distress, obese - Respiratory Details: Lung sounds with few scattered crackles throughout, diminished to his bilateral bases. Respirations are symmetrical and nonlabored. Oxygen saturation are 97% on 3 L nasal cannula. He is achieving 1000 mL on his incentive spirometry. Bedside FEV1 completed which shows a 47% of predicted value. - Cardiovascular Details: Regular rhythm and rate. S1 and S2 present, negative for S3, gallop or murmur. Remote telemetry showing normal sinus rhythm heart rate 67. +1 edema to his bilateral lower extremities. Gianni wraps in place with knee-high sequential compression devices to his bilateral lower extremities. - Gastrointestinal Gastrointestinal Comment(s): Abdomen soft, nontender and nondistended. Active bowel sounds all 4 abdominal quadrants. No guarding or rigidity. No organomegaly. - Genitourinary Genitourinary Comment(s): Torres catheter for accurate I&O. Draining clear yellow urine. 1.4 L output in the last 8 hours. - Integumentary Integumentary Comment(s): Skin is warm and dry. No clubbing or cyanosis is present. Ulceration to his right lower lateral extremity, dressing is clean, dry and intact. No drainage is present. Erythema to his left lower extremity, dressing is clean, dry and intact. - Neurologic Neurologic: Present: CNII-XII intact - Musculoskeletal Musculoskeletal: Present: gait normal, generalized weakness, strength equal bilaterally - Psychiatric Psychiatric: Present: A&O x's 3, appropriate affect, intact judgment & insight - Allied health notes Allied health notes reviewed: nursing - Labs CBC & Chem 7: 12/06/18 06:46 12/06/18 06:46 Labs: Abnormal Lab Results - Last 24 Hours (Table) 12/05/18 12/05/18 12/05/18 Range/Units 14:03 14:03 16:59 WBC 18.0 H (3.8-10.6) k/uL Neutrophils # 16.7 H (1.3-7.7) k/uL Lymphocytes # 0.3 L (1.0-4.8) k/uL Monocytes # (0-1.0) k/uL Carbon Dioxide (22-30) mmol/L BUN 58 H (9-20) mg/dL Creatinine 1.28 H (0.66-1.25) mg/dL Glucose 146 H (74-99) mg/dL POC Glucose (mg/dL) 198 H (75-99) mg/dL Calcium 7.8 L (8.4-10.2) mg/dL Magnesium 2.4 H (1.6-2.3) mg/dL Total Protein 5.5 L (6.3-8.2) g/dL Albumin 2.8 L (3.5-5.0) g/dL LDL Cholesterol, Calc 104 H (0-99) mg/dL TSH 0.419 L (0.465-4.680) mIU/L Urine Protein (Negative) Urine Blood (Negative) Ur Leukocyte Esterase (Negative) Urine RBC (0-5) /hpf Urine WBC (0-5) /hpf Triple Phos Crystals (None) /hpf Amorphous Sediment (None) /hpf Urine Bacteria (None) /hpf Hyaline Casts (0-2) /lpf Urine Mucus (None) /hpf 12/05/18 12/06/18 12/06/18 Range/Units 20:17 06:15 06:46 WBC 23.4 H (3.8-10.6) k/uL Neutrophils # 20.3 H (1.3-7.7) k/uL Lymphocytes # 0.8 L (1.0-4.8) k/uL Monocytes # 1.9 H (0-1.0) k/uL Carbon Dioxide (22-30) mmol/L BUN (9-20) mg/dL Creatinine (0.66-1.25) mg/dL Glucose (74-99) mg/dL POC Glucose (mg/dL) 202 H (75-99) mg/dL Calcium (8.4-10.2) mg/dL Magnesium (1.6-2.3) mg/dL Total Protein (6.3-8.2) g/dL Albumin (3.5-5.0) g/dL LDL Cholesterol, Calc (0-99) mg/dL TSH (0.465-4.680) mIU/L Urine Protein 2+ H (Negative) Urine Blood Moderate H (Negative) Ur Leukocyte Esterase Moderate H (Negative) Urine RBC 123 H (0-5) /hpf Urine WBC 26 H (0-5) /hpf Triple Phos Crystals Few H (None) /hpf Amorphous Sediment Occasional H (None) /hpf Urine Bacteria Rare H (None) /hpf Hyaline Casts 6 H (0-2) /lpf Urine Mucus Many H (None) /hpf 12/06/18 12/06/18 Range/Units 06:46 11:38 WBC (3.8-10.6) k/uL Neutrophils # (1.3-7.7) k/uL Lymphocytes # (1.0-4.8) k/uL Monocytes # (0-1.0) k/uL Carbon Dioxide 33 H (22-30) mmol/L BUN 53 H (9-20) mg/dL Creatinine 1.34 H (0.66-1.25) mg/dL Glucose 58 L (74-99) mg/dL POC Glucose (mg/dL) 69 L (75-99) mg/dL Calcium 8.0 L (8.4-10.2) mg/dL Magnesium (1.6-2.3) mg/dL Total Protein (6.3-8.2) g/dL Albumin (3.5-5.0) g/dL LDL Cholesterol, Calc (0-99) mg/dL TSH (0.465-4.680) mIU/L Urine Protein (Negative) Urine Blood (Negative) Ur Leukocyte Esterase (Negative) Urine RBC (0-5) /hpf Urine WBC (0-5) /hpf Triple Phos Crystals (None) /hpf Amorphous Sediment (None) /hpf Urine Bacteria (None) /hpf Hyaline Casts (0-2) /lpf Urine Mucus (None) /hpf Microbiology - Last 24 Hours (Table) 12/05/18 17:00 Nasal Screen MRSA/MSSA - Preliminary Nasal Swab 11/30/18 11:56 Blood Culture - Preliminary Blood No Growth after 120 hours - Imaging and Cardiology Vein mapping, lower extremity Doppler with ankle-brachial index report, radial artery studies and carotid duplex reports reviewed and discussed with Dr. Camilla Rivero. Assessment and Plan Assessment: 1. Non-ST elevated myocardial infarction, elevated troponins as high as 28.600. 2. Coronary artery disease with a critical lesion involving the ostium of the circumflex, proximal right coronary artery and multiple lesions to the left anterior descending coronary artery and diagonal coronary artery. 3. Congestive heart failure, acute on chronic systolic and diastolic. 4. Right pleural effusion status post right thoracentesis with 900 mL of yellow fluid drained. 5. Venous stasis ulcers to his right lower extremity. 6. Diabetes mellitus type 2. 7. Recent diagnosis of atrial flutter, status post recent cardioversion. 8. History of Hypertension. 9. History of hyperlipidemia. 10. Prostate disorder on Flomax at home. 11. History of coronary artery disease with multiple stents placement in the past. Plan: 1. Continue to maximize medical therapy with aspirin, statin, ARB, Lasix and beta blockers. Heparin drip at 800 units per hour managed by cardiology. 2. Encourage use of his incentive spirometry every hour while awake. 3. STS risk score calculated in discussed with the patient by Dr. Rivero. 4. 5 m walk test completed Time 1: 10.60 seconds, Time 2: 10.81 seconds , Time 3:10.15 seconds. 5. Continue GI and DVT prophylaxis. 6. Bronchodilators and pulmonary management recommendations per Dr. Bull. FEV1 result today showed a value 47% of predicted. 7. Preoperative teaching reinforced with the patient and his brother and [id number] who were at his bedside. 8. The patient will be scheduled for myocardial revascularization surgery to be performed by Dr. Camilla Rivero on , 12/08/2018. 9. Continue to hold Eliquis. 10. Continue local wound care to his bilateral lower extremities, wound care instructions per Dr. Eldridge. 11. Discontinue Torres catheter. 12. More recommendations to follow based on patient's clinical course. Time with Patient: Greater than 30
[2018-12-06 17:25] LABS: Glucose,Whole Blood 123 mg/dL (75-99)
[2018-12-06 22:04] LABS: Glucose,Whole Blood 168 mg/dL (75-99)
[2018-12-06] MEDS: PRAVASTATIN SODIUM 20 MG TAB PO SCH (22:06)
[2018-12-06] MEDS: HEPARIN SOD,PORK IN 0.45% NACL 25,000 UNIT in 0.45% NACL 1 250ML.BAG IV SCH (22:12)
[2018-12-07 02:57] LABS: Glucose,Whole Blood 105 mg/dL (75-99)
[2018-12-07] MEDS: SODIUM CHLORIDE 0.9% 1,000 ML IV SCH ×4 (03:00→16:06)
[2018-12-07] MEDS: INSULIN ASPART (NovoLOG) 100 UNIT/ML VIAL SQ SCH ×5 (03:00→20:36)
[2018-12-07 06:27] LABS: Glucose,Whole Blood 72 mg/dL (75-99)
[2018-12-07] MEDS: CARVEDILOL 3.125 MG TAB PO SCH ×2 (06:28→17:36)
[2018-12-07] MEDS: IPRATROPIUM-ALBUTEROL 3 ML NEB INHALATION SCH ×4 (06:58→21:20)
[2018-12-07 07:19] LABS: Basophils % (A) 0 %; Eosinophils # (A) 0.1 k/uL (0-0.7); Eosinophils % (A) 1 %; HCT 45.7 % (39.0-53.0); HGB 14.1 gm/dL (13.0-17.5); Lymphocytes # (A) 0.6 k/uL (1.0-4.8); Lymphocytes % (A) 3 %; MCH 26.2 pg (25.0-35.0); MCHC 30.8 g/dL (31.0-37.0); MCV 85.1 fL (80.0-100.0); Mean Platelet Volume 6.9; Monocytes # (A) 1.4 k/uL (0-1.0); Monocytes % (A) 7 %; Neutrophils # (A) 18.1 k/uL (1.3-7.7); Neutrophils % (A) 89 %; Platelet Count 304 k/uL (150-450); RBC 5.38 m/uL (4.30-5.90); RDW 14.7 % (11.5-15.5); WBC 20.4 k/uL (3.8-10.6)
[2018-12-07 07:27] LABS: Calcium 7.7 mg/dL (8.4-10.2); Potassium 4.8 mmol/L (3.5-5.1)
[2018-12-07] MEDS: FUROSEMIDE 40 MG TAB PO SCH ×2 (08:13→16:59)
[2018-12-07] MEDS: predniSONE 20 MG TAB PO SCH (08:13)
[2018-12-07] MEDS: ASPIRIN 81 MG PO SCH (08:13)
[2018-12-07] MEDS: TRIAMCINOLONE ACET 0.1% OINTMENT 15 GM TUBE TOPICAL SCH ×2 (08:13→21:41)
[2018-12-07] MEDS: MUPIROCIN 2% OINT 22 GM TUBE NASAL SCH ×2 (08:13→21:17)
[2018-12-07] MEDS: LOSARTAN 25 MG TAB PO SCH (08:13)
[2018-12-07] MEDS: PANTOPRAZOLE 40 MG TABLET PO SCH (08:13)
--- NOTE | 2018-12-07 08:47 | P.ARTDOP ---
Arterial Doppler Bilateral radial artery testing. Date of study 12/05/2018 Reason for study: Preop CABG Findings: Imaging shows the majority of both radials to be under 2 mm in size. Not having met size criteria and other testing modes were not used.
--- NOTE | 2018-12-07 08:51 | P.ARTDOP ---
Arterial Doppler LOWER EXTREMITY ARTERIAL DOPPLER: DATE OF SERVICE: 12/06/2018 Reason for study: Preop CABG with lower leg ulcers. Doppler waveforms: Multiphasic bilaterally throughout. Pulse volume recording: Digital plethysmography shows fairly normal waveforms on the left with a lot of flattening on the right first and second digits. Waveforms not detected in the right great toe Pressure gradients: None noted. Ankle-brachial indices: Cannot be occluded on either side. Toe pressures: None detected on the right, 93 on the left Impression: Suspect distal disease bilaterally proximal areas including posterior tibial on the right have good waveforms. Suspect significant calcific wall disease with some distal disease bilaterally especially on the right. Marginal distal perfusion on the right for healing. Probably adequate on the left. Clinical correlation recommended.
--- NOTE | 2018-12-07 09:31 | P.VSCSTY ---
Greater Saphenous Vein Mapping This is bilateral lower extremity greater saphenous vein mapping. Date of service 12/05/2018 Vein quality and ultrasound appearance no intraluminal thrombus or wall changes are seen. Vein size groin right 3.8 x 3.5 groin left 4.0 x 3.0 High thigh right 4.1 x 5.1 high thigh left 3.4 x 3.4 Mid thigh right 3.0 x 3.1 mid thigh left 2.8 x 2.6 Above-knee right 2.4 x 3.4 above- knee left 2.6 x 2.7 Below knee right 2.9 x 2.1 below-knee left 2.7 x 3.3 Mid calf right to 0.2 x 1.6 mid calf left 2.9 x 3.0 Ankle right 1.6 x 1.9 ankle left 2.0 x 2.3 Impression usable bilateral greater saphenous vein. Right ankle gets a bit small..
--- NOTE | 2018-12-07 09:58 | P.PN ---
Subjective Progress Note Date: 12/07/18 Principal diagnosis: Severe triple vessel coronary artery disease, non-STEMI, acute on chronic systolic and diastolic heart failure with ejection fraction 40-45%, right-sided pleural effusion status post thoracentesis with removal of 900 mL transudative fluid. History of coronary artery disease with previous stents to the LAD, recent diagnosis of atrial flutter status post cardioversion on chronic Eliquis for chronic anticoagulation, hypertension, hyperlipidemia, uncontrolled diabetes mellitus with hemoglobin A1c 7.8%, severe COPD with FEV1 47% of predicted, peripheral artery disease, chronic venous stasis ulcers to his right lower extremity, obesity, and prostate disorder. Preoperative leukocytosis, acute renal failure. The patient is currently sitting up in a recliner on the cardiac stepdown unit in no acute distress. States he feels much better than when he came in. Does still complain of some mild shortness of breath with activity but is better than on admission. Denies any pain. Preoperative open heart teaching continues, patient with no new questions at this time. Currently in normal sinus rhythm and hemodynamically stable. Objective - Vital Signs Vital signs: Vital Signs Temp 98 F 12/07/18 03:04 Pulse 74 12/07/18 07:09 Resp 18 12/07/18 03:04 BP 163/78 12/07/18 03:04 Pulse Ox 100 12/07/18 03:04 Intake & Output 12/06/18 12/07/18 12/07/18 18:59 06:59 18:59 Intake Total 800 239.2 240 Output Total 900 Balance -100 239.2 240 Weight 85.5 kg Intake: IV 150 0.9 NACL 150 Intake, IV Titration 239.2 Amount Heparin Sod,Pork in 0.45% 239.2 NaCl 25,000 unit In 0.45 % NaCl 1 250ml.bag @ 800 UNIT/HR 8 mls/hr IV .Q24H [facility] Rx#:[id number] Oral 650 240 Output: Urine 900 Other: Voiding Method Toilet Toilet # Voids 1 1 - Constitutional General appearance: Present: cooperative, no acute distress, obese - Respiratory Details: Lungs sounds diminished bilaterally with coarse breath sounds in the bases. Respirations even, nonlabored. Currently on 2 L nasal cannula with oxygen saturation 100%. Only able to achieve 1000 mL on his incentive spirometry. Strong cough. - Cardiovascular Details: S1, S2 present. Regular rate and rhythm, sinus rhythm on telemetry. Palpable peripheral pulses bilaterally. Bilateral lower extremity edema present. No calf pain or tenderness noted. SCDs present. - Gastrointestinal Gastrointestinal Comment(s): Abdomen soft, nontender, nondistended. Active bowel sounds 4 quadrants. Tolerating diet. - Genitourinary Genitourinary Comment(s): Continues to void. - Integumentary Integumentary Comment(s): Skin is warm and dry. Bilateral lower extremities with Gianni wraps present. - Neurologic Neurologic: Present: CNII-XII intact - Musculoskeletal Musculoskeletal: Present: strength equal bilaterally - Psychiatric Psychiatric: Present: A&O x's 3, appropriate affect, intact judgment & insight - Allied health notes Allied health notes reviewed: nursing - Labs CBC & Chem 7: 12/07/18 06:51 12/07/18 06:51 Labs: Abnormal Lab Results - Last 24 Hours (Table) 12/06/18 12/06/18 12/06/18 Range/Units 11:38 17:23 21:55 WBC (3.8-10.6) k/uL MCHC (31.0-37.0) g/dL Neutrophils # (1.3-7.7) k/uL Lymphocytes # (1.0-4.8) k/uL Monocytes # (0-1.0) k/uL APTT (22.0-30.0) sec BUN (9-20) mg/dL Creatinine (0.66-1.25) mg/dL Glucose (74-99) mg/dL POC Glucose (mg/dL) 69 L 123 H 168 H (75-99) mg/dL Calcium (8.4-10.2) mg/dL 12/07/18 12/07/18 12/07/18 Range/Units 02:55 06:26 06:51 WBC 20.4 H (3.8-10.6) k/uL MCHC 30.8 L (31.0-37.0) g/dL Neutrophils # 18.1 H (1.3-7.7) k/uL Lymphocytes # 0.6 L (1.0-4.8) k/uL Monocytes # 1.4 H (0-1.0) k/uL APTT (22.0-30.0) sec BUN (9-20) mg/dL Creatinine (0.66-1.25) mg/dL Glucose (74-99) mg/dL POC Glucose (mg/dL) 105 H 72 L (75-99) mg/dL Calcium (8.4-10.2) mg/dL 12/07/18 12/07/18 Range/Units 06:51 06:51 WBC (3.8-10.6) k/uL MCHC (31.0-37.0) g/dL Neutrophils # (1.3-7.7) k/uL Lymphocytes # (1.0-4.8) k/uL Monocytes # (0-1.0) k/uL APTT 37.3 H (22.0-30.0) sec BUN 43 H (9-20) mg/dL Creatinine 1.26 H (0.66-1.25) mg/dL Glucose 58 L (74-99) mg/dL POC Glucose (mg/dL) (75-99) mg/dL Calcium 7.7 L (8.4-10.2) mg/dL Microbiology - Last 24 Hours (Table) 11/30/18 11:56 Blood Culture - Final Blood No Growth after 144 hours 12/06/18 06:15 Urine Culture - Preliminary Urine,Catheterized - Imaging and Cardiology Chest x-ray: report reviewed, image reviewed Assessment and Plan Assessment: 1. Severe triple-vessel coronary artery disease, non-STEMI 2. Acute on chronic systolic and diastolic heart failure with ejection fraction 40-45% 3. Right-sided pleural effusion status post thoracentesis with removal of 900 mL transudate of fluid 4. Leukocytosis 5. Acute renal failure 6. History of coronary artery disease with previous stents to the LAD 7. Recent diagnosis of atrial flutter status post cardioversion on Eliquis for chronic for anticoagulation 8. Hypertension 9. Hyperlipidemia 10. Uncontrolled diabetes mellitus with hemoglobin A1c 7.8% 11. Severe COPD with FEV1 47% of predicted 12. Peripheral artery disease 13. Chronic venous stasis ulcers to his right lower extremity 14. Prostate disorder Plan: 1. Continue aspirin, statin, ARB, beta alfred therapy. 2. Continue Lasix, IV heparin. Continue to hold Eliquis. 3. Bronchodilators, steroids per pulmonology. 4. Wean O2 as tolerated. Encourage incentive spirometry 10 times every hour while awake. 5. Increase activity, ambulate in hallway. Discussed with nursing staff. PT/OT ordered. 6. GI/DVT prophylaxis with Protonix and heparin, SCDs. 7. Venous stasis ulcer wound care per Dr. Eldridge. 8. Continue to reinforce preoperative teaching. 9. The patient scheduled for coronary artery bypass graft surgery with GONZALEZ, possible left radial, EVH, pulmonary vein isolation, and exclusion of the left atrial appendage by Dr. Rivero on , 12/08/2018. Nothing to eat or drink after midnight. 10. Management of medical comorbidities per primary service. 11. More recommendations based on patient's clinical course. Time with Patient: Greater than 30
[2018-12-07 11:15] LABS: Glucose,Whole Blood 141 mg/dL (75-99)
--- NOTE | 2018-12-07 14:12 | P.PN ---
Subjective Progress Note Date: 12/07/18 This is a 78-year-old white male with history of paroxysmal atrial flutter status post transesophageal echo and cardioversion in August of 2018. Patient has been following up at [facility] for his cardiac issues. Although his previous cardioversion was done by few months back. Patient is also known to have history of type 2 diabetes, hypertension, CAD with prior stent placements, and for the last week and a half, the patient has been complaining of shortness of breath and uncomfortable feeling in the chest. The uncomfortable feeling is described as heaviness in the chest. And this one and on for at least a day or so. He shortness of breath has become more progressive over the last week and a half, he was seen in the [facility] and he was sent to the emergency room for further evaluation. Upon presentation to the ER, patient was noted to be short of breath, chest x-ray showed evidence of pulmonary edema with bilateral pleural effusions,his EKG was suggestive of inferior posterior wall OR, and patient was placed on Lasix drip, heparin, admitted to the intensive care unit. Patient did undergo thoracentesis in the intensive care unit. He did rule in for a non-ST elevation myocardial infarction, was taken to the cardiac catheterization lab yesterday and was found to have a critical lesion involving the ostium of the circumflex which seemed to be the culprit vessel, 90-95% stenosis of the ostium and the proximal portion of the RCA which may be chronic. There is also about a 70% stenosis in the proximal LAD and proximal diagonal. The stent in the mid LAD appeared to be patent. Multiple lesions involving the distal LAD, surgical consultation was requested. Patient has been seen in consultation by cardiothoracic surgery and the plan is to proceed with coronary artery bypass grafting surgery on of this week. He was seen and examined this morning, denied any chest pain or difficulty in breathing. Blood pressure 144/70 with a heart rate in the 60s to 70s, 98% on room air. White blood cell count 23.4, hemoglobin 15.2, platelet count 347. Sodium 140, potassium 4.9, BUN 53 and creatinine 1.3. Patient's current medications include aspirin 81 mg daily, Coreg 3.125 mg twice a day, Lasix 40 twice a day, heparin drip, losartan 25 mg daily, Pravachol 20 daily. 12/07/2018 Patient was seen and examined this morning, overall doing well. Breathing is stable, denies any chest discomfort. States he didn't sleep too well through the night last night, a little anxious about his surgery. I pressure 146/76 with a heart rate in the 70s, 97% on 2 L of oxygen. White blood cell count 20.4, hemoglobin 14.1, platelet count 304. Sodium 140, potassium 4.8, BUN 43 and creatinine 1.2. Objective - Vital Signs Vital signs: Vital Signs Temp 97.4 F L 12/07/18 08:00 Pulse 64 12/07/18 12:00 Resp 18 12/07/18 12:00 BP 147/76 12/07/18 08:00 Pulse Ox 97 12/07/18 08:00 Intake & Output 12/06/18 12/07/18 12/07/18 18:59 06:59 18:59 Intake Total 800 239.2 240 Output Total 900 Balance -100 239.2 240 Weight 85.5 kg 85.5 kg Intake: IV 150 0.9 NACL 150 Intake, IV Titration 239.2 Amount Heparin Sod,Pork in 0.45% 239.2 NaCl 25,000 unit In 0.45 % NaCl 1 250ml.bag @ 800 UNIT/HR 8 mls/hr IV .Q24H [facility] Rx#:[id number] Oral 650 240 Output: Urine 900 Other: Voiding Method Toilet Toilet # Voids 1 1 - Exam GENERAL EXAM: Alert, pleasant, 78-year-old white male comfortable in no apparent distress. HEAD: Normocephalic/atraumatic. EYES: Normal reaction of pupils, equal size. Conjunctiva pink, sclera white. NOSE: Clear with pink turbinates. THROAT: No erythema or exudates. NECK: No masses, no JVD, no thyroid enlargement, no adenopathy. CHEST: No chest wall deformity. Symmetrical expansion. LUNGS: Equal air entry with no crackles, wheeze, rhonchi or dullness. CVS: Regular rate and rhythm, normal S1 and S2, no gallops, no murmurs, no rubs ABDOMEN: Soft, nontender. No hepatosplenomegaly, normal bowel sounds, no guardi ng or rigidity. EXTREMITIES: No clubbing, no edema, no cyanosis, 2+ pulses and upper and lower extremities. MUSCULOSKELETAL: Muscle strength and tone normal. SPINE: No scoliosis or deformity SKIN: No rashes CENTRAL NERVOUS SYSTEM: Alert and oriented -3. No focal deficits, tone is normal in all 4 extremities. PSYCHIATRIC: Alert and oriented -3. Appropriate affect. Intact judgment and insight. - Labs CBC & Chem 7: 12/07/18 06:51 12/07/18 06:51 Labs: Abnormal Lab Results - Last 24 Hours (Table) 12/06/18 12/06/18 12/07/18 Range/Units 17:23 21:55 02:55 WBC (3.8-10.6) k/uL MCHC (31.0-37.0) g/dL Neutrophils # (1.3-7.7) k/uL Lymphocytes # (1.0-4.8) k/uL Monocytes # (0-1.0) k/uL APTT (22.0-30.0) sec BUN (9-20) mg/dL Creatinine (0.66-1.25) mg/dL Glucose (74-99) mg/dL POC Glucose (mg/dL) 123 H 168 H 105 H (75-99) mg/dL Calcium (8.4-10.2) mg/dL 12/07/18 12/07/18 12/07/18 Range/Units 06:26 06:51 06:51 WBC 20.4 H (3.8-10.6) k/uL MCHC 30.8 L (31.0-37.0) g/dL Neutrophils # 18.1 H (1.3-7.7) k/uL Lymphocytes # 0.6 L (1.0-4.8) k/uL Monocytes # 1.4 H (0-1.0) k/uL APTT (22.0-30.0) sec BUN 43 H (9-20) mg/dL Creatinine 1.26 H (0.66-1.25) mg/dL Glucose 58 L (74-99) mg/dL POC Glucose (mg/dL) 72 L (75-99) mg/dL Calcium 7.7 L (8.4-10.2) mg/dL 12/07/18 12/07/18 Range/Units 06:51 11:13 WBC (3.8-10.6) k/uL MCHC (31.0-37.0) g/dL Neutrophils # (1.3-7.7) k/uL Lymphocytes # (1.0-4.8) k/uL Monocytes # (0-1.0) k/uL APTT 37.3 H (22.0-30.0) sec BUN (9-20) mg/dL Creatinine (0.66-1.25) mg/dL Glucose (74-99) mg/dL POC Glucose (mg/dL) 141 H (75-99) mg/dL Calcium (8.4-10.2) mg/dL Microbiology - Last 24 Hours (Table) 12/06/18 06:15 Urine Culture - Final Urine,Catheterized 12/05/18 17:00 Nasal Screen MRSA/MSSA - Final Nasal Swab 11/30/18 11:56 Blood Culture - Final Blood No Growth after 144 hours Assessment and Plan Plan: Plan: # 1 subacute inferoposterior myocardial infarction #2 acute congestive heart failure secondary to subacute myocardial infarction, systolic , ischemic cardiomyopathy and impaired LV function with ejection fraction 40-45% #3 multivessel coronary artery disease, scheduled for coronary artery bypass grafting surgery on #4 type 2 diabetes, on insulin patient is normally on glipizide insulin and metformin. #5 hypertension #6 hyperlipidemia #7 history of atrial flutter requiring cardioversion in August of 2018. #8 history of underlying coronary artery disease, and previous PCI. #9 status post right sided thoracentesis Plan We will continue the patient on his current medications. He is scheduled to undergo coronary artery bypass grafting surgery on of this week. We will continue to follow. DNP note has been reviewed, I agree with a documented findings and plan of care. Patient was seen and examined.
[2018-12-07] MEDS ORDERED: MD COMMUNICATION TO PHARMACY 1 EACH MISC PO ONE (14:48)
[2018-12-07] MEDS ORDERED: INSULIN REGULAR 100 UNIT in SODIUM CHLORIDE 0.9% 100 ML IV SCH (15:00)
--- NOTE | 2018-12-07 15:38 | P.PN ---
Subjective This is a pleasant 78 years old male with past medical history of atrial fibrillation, diabetes mellitus, hyperlipidemia, osteoarthritis, congestive heart failure and ischemic heart disease. Patient presents because of worsening dyspnea over one week duration with no chest pain however he has some cough and yellow phlegm. No palpitation or dizziness, no change in urine or bowel habits. No fever. Patient blood pressure is stable at 146/82, saturating 92% on 4 L, he is afebrile. He has mild leukocytosis of 11.9 K, sodium 136, creatinine 1.5 which is close to baseline, glucose 471. Troponin 13.8, influenza is negative. Chest x-ray: Stable bilateral infiltrates suspicious for pneumonia, possible CHF as per radiologist report. EKG showing normal sinus rhythm at [address] depression in V2 to V6. QTC 510. In the emergency room he got aspirin, Coreg and Lasix once. Patient was started on Lasix drip and heparin drip. He is on losartan metoprolol as well. 12/01/2018 patient is seen today in the ICU. His resting comfortably and feels better. His feeling was better. Still no chest pain. Dry cough.vitals his stable although he isn't tachypneic. Saturating 99% on 4 L oxygen via NC.creatinine is 1.69. Troponins are elevated at 13.8, 28.6, 20.2. Patient is been followed closely by cardiology and pulmonary/critical care team.the plan for cardiac cath tomorrow. 12/02/2018 Patient remains in the ICU, he looks tired and lethargic. Denies overt chest pain, limits rapid breathing. No coughing. He Tolerated Diet Well. Patient Is Supposed to Go for Cardiac Cath Today However His Kidney Function Was Trending up from 1.6 to 2.0. Patient Was Placed Back on Heparin Drip. Sugar was running between 147-60. Patient states that he was taking 50 units of insulin 70:30 twice a day. Yesterday we started him on insulin therapy 30 units at bedtime, however today was started eating more and we increased his insulin dose to 30 units twice a day, plus sliding scale. Vitas looks stable. He still have leukocytosis of 19.5 K. Chest x-ray: Trace pleural effusion. Status post thoracocentesis. Patient is being followed closely in the intensive care unit by cardiology and pulmonary team. Today also patient was placed on Lasix 40 mg twice a day. 12/03/2018 Patient feels well in the ICU His dyspnea looks better. No chest pain. His sugar was low normal this morning around 60-70. We lowered his ninth dose of Levemir from 30 down to 20 units Continue with daytime Levemir dose of 3 units.sugar is improved currently at 128. Creatinine is improved at 1.74.we will continue with IV heparin. Statin has been added by artificial candy maker. Patient is planned to have coronary angiography. 12/04/2018 Patient was transferred to the selective unit. He was lying in bed comfortable not in distress with no chest pain. Hemodynamically stable. Labs reviewed showing improved leukocytosis from 17.7 down to 15.7 K. Creatinine is trending down to 1.5. Cardiology team following the case and possible cardiac cath tomorrow. Also patient has blisters in his leg, silver sulfadiazine was started with wound team consult 12/05/2018 Patient underwent cardiac cath today showing critical lesion involving the circumflex artery with 90-95% stenosis of the RCA. With 70% stenosis of the LAD. And cardiology recommended surgery versus multiple stent placement. Patient post cardiac cath was comfortable denied chest pain or dyspnea. Mild hematoma at the right groin. Vitals are stable. 12/06/2018 Patient is been evaluated by cardiothoracic surgery team for possible CABG. For his triple-vessel coronary artery disease. Patient has been followed by several consultants including cardiothoracic and cardiology team. Patient currently stable with no chest pain or dyspnea. Hemodynamically stable. His WBC is elevated however he is on steroids 12/07/2018 Patient lying in bed comfortable. Patient is going for cardiac cath tomorrow. Vitals stable., Laps showing leukocytosis of 20.4 K, which is around the same. Patient is afebrile CONSTITUTIONAL: No fever, no malaise, no fatigue. HEENT: No recent visual problems or hearing problems. Denied any sore throat. CARDIOVASCULAR: no palpitations, no syncope. PULMONARY:, no hemoptysis. GASTROINTESTINAL: No diarrhea, no nausea, no vomiting, no abdominal pain. Norm oactive bowel sounds. NEUROLOGICAL: No headaches, no weakness, no numbness. HEMATOLOGICAL: Denies any bleeding or petechiae. GENITOURINARY: Denies any burning micturition, frequency, or urgency. MUSCULOSKELETAL/RHEUMATOLOGICAL: Denies any joint pain, swelling, or any muscle pain. ENDOCRINE: Denies any polyuria or polydipsia. medication: Albuterol, Augmentin, aspirin, Coreg, Lasix, losartan, salmeterol, Protonix, and heparin drip. Objective - Vital Signs Vital signs: Vital Signs Temp 97.4 F L 12/07/18 08:00 Pulse 64 12/07/18 12:00 Resp 18 12/07/18 12:00 BP 147/76 12/07/18 08:00 Pulse Ox 97 12/07/18 08:00 Intake & Output 12/06/18 12/07/18 12/07/18 18:59 06:59 18:59 Intake Total 800 239.2 240 Output Total 900 Balance -100 239.2 240 Weight 85.5 kg 85.5 kg Intake: IV 150 0.9 NACL 150 Intake, IV Titration 239.2 Amount Heparin Sod,Pork in 0.45% 239.2 NaCl 25,000 unit In 0.45 % NaCl 1 250ml.bag @ 800 UNIT/HR 8 mls/hr IV .Q24H PEARL Rx#:[id number] Oral 650 240 Output: Urine 900 Other: Voiding Method Toilet Toilet # Voids 1 1 - Exam GENERAL: The patient is alert and oriented x3, not in any acute distress. Well developed, well nourished. HEENT: Pupils are round and equally reacting to light. EOMI. No scleral icterus. No conjunctival pallor. Normocephalic, atraumatic. No pharyngeal erythema. No thyromegaly. CARDIOVASCULAR: S1 and S2 present. No murmurs, rubs, or gallops. -PULMONARY: Chest is clear to auscultation, scattered bilateral wheezing and basal crackles. ABDOMEN: Soft, nontender, nondistended, normoactive bowel sounds. No palpable organomegaly. MUSCULOSKELETAL: No joint swelling or deformity. EXTREMITIES: No cyanosis, clubbing, or pedal edema. NEUROLOGICAL: Gross neurological examination did not reveal any focal deficits. SKIN: No rashes. - Labs CBC & Chem 7: 12/07/18 06:51 12/07/18 06:51 Labs: Abnormal Lab Results - Last 24 Hours (Table) 12/06/18 12/06/18 12/07/18 Range/Units 17:23 21:55 02:55 WBC (3.8-10.6) k/uL MCHC (31.0-37.0) g/dL Neutrophils # (1.3-7.7) k/uL Lymphocytes # (1.0-4.8) k/uL Monocytes # (0-1.0) k/uL APTT (22.0-30.0) sec BUN (9-20) mg/dL Creatinine (0.66-1.25) mg/dL Glucose (74-99) mg/dL POC Glucose (mg/dL) 123 H 168 H 105 H (75-99) mg/dL Calcium (8.4-10.2) mg/dL 12/07/18 12/07/18 12/07/18 Range/Units 06:26 06:51 06:51 WBC 20.4 H (3.8-10.6) k/uL MCHC 30.8 L (31.0-37.0) g/dL Neutrophils # 18.1 H (1.3-7.7) k/uL Lymphocytes # 0.6 L (1.0-4.8) k/uL Monocytes # 1.4 H (0-1.0) k/uL APTT (22.0-30.0) sec BUN 43 H (9-20) mg/dL Creatinine 1.26 H (0.66-1.25) mg/dL Glucose 58 L (74-99) mg/dL POC Glucose (mg/dL) 72 L (75-99) mg/dL Calcium 7.7 L (8.4-10.2) mg/dL 12/07/18 12/07/18 Range/Units 06:51 11:13 WBC (3.8-10.6) k/uL MCHC (31.0-37.0) g/dL Neutrophils # (1.3-7.7) k/uL Lymphocytes # (1.0-4.8) k/uL Monocytes # (0-1.0) k/uL APTT 37.3 H (22.0-30.0) sec BUN (9-20) mg/dL Creatinine (0.66-1.25) mg/dL Glucose (74-99) mg/dL POC Glucose (mg/dL) 141 H (75-99) mg/dL Calcium (8.4-10.2) mg/dL Microbiology - Last 24 Hours (Table) 12/06/18 06:15 Urine Culture - Final Urine,Catheterized 12/05/18 17:00 Nasal Screen MRSA/MSSA - Final Nasal Swab 11/30/18 11:56 Blood Culture - Final Blood No Growth after 144 hours Assessment and Plan Assessment: Elevated troponin, mostly Non-STEMI Possible acute on chronic congestive heart failure Less likely patient has pneumonia Distress in both legs History of coronary artery disease History of congestive heart failure History of atrial fibrillation Diabetes mellitus Hyperlipidemia Plan: This is a pleasant 78 years old male who presents because of the STEMI and acute CHF, continue with diuretics, heparin drip, continue with beta blockers and MELIA inhibitor. Cardiology consult. Continue with antibiotics. Wound consult Labs and medication were reviewed.. Continue same treatment. Continue with symptomatic treatment. Resume home medication. Monitor lytes and vitals. DVT and GI prophylaxis. Further recommendations of the clinical course of the patient DVT prophylaxis: heparin GI Prophylaxis: Pepcid Prognosis is guarded
[2018-12-07] MEDS: INSULIN DETEMIR (LEVEMIR) 100 UNIT/ML SYR SQ SCH ×2 (16:05→21:40)
[2018-12-07] MEDS: HEPARIN SOD,PORK IN 0.45% NACL 25,000 UNIT in 0.45% NACL 1 250ML.BAG IV SCH (16:07)
[2018-12-07 16:11] LABS: Glucose,Whole Blood 88 mg/dL (75-99)
--- NOTE | 2018-12-07 16:11 | PN ---
PROGRESS NOTE DATE OF SERVICE: 12/07/2018 This is a patient with a history of subacute inferoposterior myocardial infarction who was found to have significant coronary artery disease. The patient is scheduled for multivessel coronary artery bypass grafting tomorrow. The patient's surgery will be done by Dr. Rivero. He presented with acute congestive heart failure secondary to the MN with suspected ischemic cardiomyopathy and ejection fraction of 40% to 45%. In addition, he has a history of type 2 diabetes mellitus, hypertension, hyperlipidemia, atrial flutter with previous cardioversion, CAD with previous PCI, and status post right-sided thoracentesis. The fluid was transudative and consistent with fluid overload/CHF. Anyway, the patient is doing reasonably well. I have got him working on his incentive spirometry. He can get about 1500 mL. He did smoke in the past. He does not appear to have any significant intrinsic pulmonary disease. He does have some chronic cardiac disease, though. Current vital signs include a temperature 97.4, heart rate 64, respiratory rate 18, blood pressure 147/76, mean 99, and 2-liter saturation 97%. He appears in no acute distress. He is sitting at the bedside, working on his incentive spirometer. HEENT examination is grossly unremarkable. Currently not on any supplemental oxygen. Saturations are excellent. NECK: Supple. Full range of motion. No adenopathy or thyromegaly. Neck veins are flat. Cardiovascular examination reveals distant heart sounds. Heart rate about 65 to 70 beats per minute. S1, S2 normal. No distinct murmur noted. LUNGS: Mostly clear. Breath sounds equal bilaterally. No wheezes, rhonchi or crackles. ABDOMEN: Soft. Bowel sounds are heard. Extremities are intact. No cyanosis, clubbing or edema. Skin without rash. Neurologic examination is brief but nonfocal. Labs are reviewed. White count 20.4, hemoglobin 14.1, hematocrit 45.7, platelet count 304,000. PTT 37.3. Sodium, potassium, chloride, CO2 all normal. Anion gap 3. BUN and creatinine were 43 and 1.26. Calcium 7.7. Medications are reviewed. Microbiologic studies are negative. No recent x-rays to report. ASSESSMENT: 1. Status post subacute inferoposterior myocardial infarction. 2. Acute heart failure secondary to myocardial ischemia/infarction with ejection fraction of 40% to 45%. 3. Recent coronary arteriography showing multivessel coronary artery disease with anticipated bypass grafting in the morning. 4. Type 2 diabetes mellitus. 5. Hypertension. 6. Hyperlipidemia. 7. History of atrial flutter, status post previous cardioversion in August 2018. 8. History of coronary artery disease with previous percutaneous coronary intervention. 9. Status post right-sided thoracentesis showing a transudative effusion consistent with congestive heart failure. PLAN: The patient continues to work on his incentive spirometer. He did smoke in the past and was a heavy drinker in the past. I believe he will do reasonably well status post bypass grafting. I have got him working on his incentive spirometer. This morning he could only do 500. Now he is up to 1500. Will continue to follow closely. MMODL / IJN: [id number] /
[2018-12-07 20:59] LABS: Glucose,Whole Blood 184 mg/dL (75-99)
[2018-12-07] MEDS: PRAVASTATIN SODIUM 20 MG TAB PO SCH (21:17)
[2018-12-08] MEDS: INSULIN ASPART (NovoLOG) 100 UNIT/ML VIAL SQ SCH (02:00)
[2018-12-08 03:39] LABS: Glucose,Whole Blood 179 mg/dL (75-99)
[2018-12-08] MEDS ORDERED: DILTIAZEM 125 MG in SODIUM CHLORIDE 0.9% 100 ML IV SCH (05:00)
[2018-12-08] MEDS ORDERED: NITROGLYCERIN-D5W PMX 25 MG/250 ML BTL IV ONE (05:00)
[2018-12-08] MEDS ORDERED: HEPARIN SODIUM 1,000 UN/ML (10ML VL) IV ONE (05:00)
[2018-12-08] MEDS ORDERED: HEPARIN SODIUM,PORCINE 5,000 UNIT in SODIUM CHLORIDE 0.9% 500 ML 500 ML IV ONE (05:00)
[2018-12-08] MEDS ORDERED: CALCIUM CHLORIDE 100 MG/ML 10 ML SYRINGE IVP ONE (05:00)
[2018-12-08] MEDS ORDERED: PAPAVERINE 360 MG in SODIUM CHLORIDE 0.9% 90 ML IV ONE ×2 (05:00→09:44)
[2018-12-08] MEDS ORDERED: ALBUMIN HUMAN 5% 500 ML in EMPTY BAG 1 BAG IVPB ONE ×6 (05:00)
[2018-12-08] MEDS ORDERED: NOREPINEPHRINE 4 MG in SODIUM CHLORIDE 0.9% 250 ML IV SCH (05:00)
[2018-12-08] MEDS ORDERED: ceFAZolin 2,000 MG in SODIUM CHLORIDE 0.9% 30 ML IVPB ONE (05:00)
[2018-12-08] MEDS ORDERED: ceFAZolin 2 GM in SODIUM CHLORIDE 0.9% 30 ML IVPB ONE (05:00)
[2018-12-08] MEDS ORDERED: LACTATED RINGERS 1,000 ML IV SCH (05:00)
[2018-12-08] MEDS ORDERED: PROTAMINE SULFATE 10 MG/ML 25 ML VIAL IV ONE ×2 (05:00→07:45)
[2018-12-08] MEDS ORDERED: DEXTROSE 5% IN WATER 1,000 ML with POTASSIUM CHLORIDE 110 MEQ, MAGNESIUM SULFATE 16 MEQ... IV SCH ×5 (05:00)
[2018-12-08] MEDS ORDERED: ASPIRIN 325 MG TAB PO ONE (05:00)
[2018-12-08] MEDS ORDERED: SODIUM BICARB 8.4% 50 ML SYR (1 MEQ/ML) IV ONE (05:00)
[2018-12-08] MEDS ORDERED: DEXTROSE 5% IN WATER 1,000 ML with POTASSIUM CHLORIDE 25 MEQ, SODIUM CHLORIDE 2.5MEQ/ML... IV SCH ×6 (05:00)
[2018-12-08] MEDS ORDERED: ALBUMIN HUMAN 25% 50 ML in EMPTY BAG 1 BAG IVPB ONE (05:00)
[2018-12-08] MEDS ORDERED: MANNITOL 25% 12.5 GM/50 ML VIAL IV ONE ×2 (05:00)
[2018-12-08] MEDS ORDERED: PHENYLEPHRINE 40 MG in SODIUM CHLORIDE 0.9% 250 ML IV ONE (05:00)
[2018-12-08] MEDS ORDERED: PHENYLEPHRINE 10 MG/ML VIAL IV ONE (05:00)
[2018-12-08] MEDS ORDERED: CHLORHEXIDINE GLUCONATE 15 ML CUP MUCOUS MEM ONE (05:00)
[2018-12-08] MEDS ORDERED: METOPROLOL TARTRATE 25 MG TAB PO ONE (05:00)
[2018-12-08] MEDS ORDERED: ATORVASTATIN 10 MG TAB PO ONE (05:00)
[2018-12-08] MEDS ORDERED: PROPOFOL 1,000 MG in EMPTY BAG 1 BAG IV PRN (05:00)
[2018-12-08] MEDS ORDERED: PROTAMINE SULFATE 250 MG in EMPTY BAG 1 BAG IV ONE (05:00)
[2018-12-08] MEDS ORDERED: CLEVIDIPINE BUTYRATE 25 MG in EMPTY BAG 1 BAG IV SCH (05:00)
[2018-12-08] MEDS ORDERED: MAGNESIUM SULFATE SYG 4.06 MEQ/ML SYRINGE IV ONE (05:00)
[2018-12-08] MEDS ORDERED: ceFAZolin 1,000 MG in SODIUM CHLORIDE 0.9% IRRIGATIO 1,000 ML IRRIGATION ONE (05:00)
[2018-12-08] MEDS ORDERED: TRANEXAMIC ACID 2,000 MG in SODIUM CHLORIDE 0.9% 80 ML IV ONE (05:00)
[2018-12-08] MEDS ORDERED: IV FLUID CONTINUATION 300 ML IV ONE (06:36)
[2018-12-08 06:55] LABS: Basophils % (A) 0 %; Eosinophils # (A) 0.1 k/uL (0-0.7); Eosinophils % (A) 1 %; HCT 44.3 % (39.0-53.0); HGB 14.1 gm/dL (13.0-17.5); Lymphocytes # (A) 0.6 k/uL (1.0-4.8); Lymphocytes % (A) 3 %; MCH 26.6 pg (25.0-35.0); MCHC 31.9 g/dL (31.0-37.0); MCV 83.4 fL (80.0-100.0); Mean Platelet Volume 7.3; Monocytes % (A) 6 %; Neutrophils # (A) 16.4 k/uL (1.3-7.7); Neutrophils % (A) 89 %; Platelet Count 322 k/uL (150-450); RBC 5.31 m/uL (4.30-5.90); RDW 14.8 % (11.5-15.5); WBC 18.4 k/uL (3.8-10.6)
[2018-12-08 07:05] LABS: INR 0.9 (<1.2); Prothrombin Time 10.2 sec (9.0-12.0)
[2018-12-08 07:08] LABS: Albumin 2.6 g/dL (3.5-5.0); Potassium 4.7 mmol/L (3.5-5.1); Total Bilirubin 0.5 mg/dL (0.2-1.3); Total Protein 5.1 g/dL (6.3-8.2)
[2018-12-08] MEDS ORDERED: MAGNESIUM SULFATE 4 MEQ/ML 10ML VIAL ONE (07:45)
[2018-12-08] MEDS ORDERED: VECURONIUM 10 MG VIAL IV ONE (07:45)
[2018-12-08] MEDS ORDERED: ePHEDrine SULFATE/0.9% NACL/PF 50 MG/5 ML SYRINGE IV ONE (07:45)
[2018-12-08] MEDS ORDERED: HEPARIN SODIUM,PORCINE 10,000 UNIT/ML 1 ML VIAL ONE (07:45)
[2018-12-08] MEDS ORDERED: SODIUM CHLORIDE 0.9% 250 ML BAG ONE (07:45)
[2018-12-08] MEDS ORDERED: VASOPRESSIN 20 UNIT/ML 1 ML VIAL ONE (07:45)
[2018-12-08] MEDS ORDERED: DEXAMETHASONE SOD PHOS (MDV) 100 MG/10 ML VIAL ONE (07:45)
[2018-12-08] MEDS ORDERED: PROPOFOL 10 MG/ML 20 ML VIAL IV ONE (07:45)
[2018-12-08] MEDS ORDERED: MIDAZOLAM 2 MG/2 ML VIAL ONE (07:45)
[2018-12-08] MEDS ORDERED: fentaNYL (PF) 50 MCG/ML 50 ML VIAL ONE (07:45)
[2018-12-08] MEDS ORDERED: ALBUMIN HUMAN 5% (25gm) 500 ML VIAL IVPB ONE (07:45)
[2018-12-08] MEDS ORDERED: LIDOCAINE 2% SYG (PF) 100 MG/5 ML ONE (07:45)
[2018-12-08] MEDS ORDERED: DEXTROSE 50%-WATER 50 ML SYRINGE IVP ONE (07:45)
[2018-12-08] MEDS ORDERED: ceFAZolin 1,000 MG VIAL ONE (07:45)
[2018-12-08] MEDS ORDERED: ELECTROLYTE-R (PH 7.4) 1,000 ML IV.SOLN IV ONE (07:45)
[2018-12-08] MEDS ORDERED: CALCIUM CHLORIDE 100 MG/ML 10 ML SYRINGE ONE (07:45)
[2018-12-08] MEDS ORDERED: SODIUM CHLORIDE 0.9% IRRIG 1,000 ML BTL IRRIGATION ONE (07:45)
[2018-12-08] MEDS ORDERED: TRANEXAMIC ACID 1,000 MG/10 ML VIAL ONE (07:45)
[2018-12-08 08:35] LABS: ABG Base Excess 2.6 mmol/L; ABG HCO3 26 mmol/L (21-25); ABG PCO2 36 mmHg (35-45); ABG PH 7.47 (7.35-7.45); ABG PO2 225 mmHg (83-108); ABG Potassium Whole Blood 3.8 mmol/L (3.4-4.5); ABG Sodium Whole Blood 139 mmol/L (135-146); ABG TCO2 27 mmol/L (19-24)
[2018-12-08] MEDS: IPRATROPIUM-ALBUTEROL 3 ML NEB INHALATION SCH ×4 (09:00→20:18)
[2018-12-08] MEDS ORDERED: METHYLENE BLUE 10 MG/ML (10 ML VIAL) MISCELLANE ONE (09:42)
[2018-12-08] MEDS ORDERED: SODIUM CHLORIDE 0.9% 500 ML 500 ML with HEPARIN SODIUM,PORCINE 5,000 UNIT IV ONE ×2 (09:43)
[2018-12-08] MEDS ORDERED: ceFAZolin 1,000 MG in SODIUM CHLORIDE 0.9% 1,000 ML IRRIGATION ONE (09:44)
[2018-12-08 10:56] LABS: ABG Base Excess 2.6 mmol/L; ABG HCO3 27 mmol/L (21-25); ABG Oxygen Saturation 99.8 % (94-97); ABG PCO2 42 mmHg (35-45); ABG PH 7.43 (7.35-7.45); ABG PO2 160 mmHg (83-108); ABG Potassium Whole Blood 3.8 mmol/L (3.4-4.5); ABG Sodium Whole Blood 139 mmol/L (135-146); ABG TCO2 29 mmol/L (19-24)
[2018-12-08 11:46] LABS: ABG Base Excess 2.3 mmol/L; ABG HCO3 25 mmol/L (21-25); ABG PCO2 32 mmHg (35-45); ABG Potassium Whole Blood 3.7 mmol/L (3.4-4.5); ABG Sodium Whole Blood 136 mmol/L (135-146); ABG TCO2 26 mmol/L (19-24)
[2018-12-08 12:24] LABS: ABG Base Excess 2.3 mmol/L; ABG HCO3 26 mmol/L (21-25); ABG PCO2 36 mmHg (35-45); ABG PH 7.47 (7.35-7.45); ABG PO2 359 mmHg (83-108); ABG Potassium Whole Blood 4.8 mmol/L (3.4-4.5); ABG Sodium Whole Blood 135 mmol/L (135-146); ABG TCO2 27 mmol/L (19-24)
[2018-12-08 12:50] LABS: ABG Base Excess 1.8 mmol/L; ABG HCO3 26 mmol/L (21-25); ABG PCO2 36 mmHg (35-45); ABG PH 7.47 (7.35-7.45); ABG PO2 360 mmHg (83-108); ABG Potassium Whole Blood 4.5 mmol/L (3.4-4.5); ABG Sodium Whole Blood 135 mmol/L (135-146); ABG TCO2 27 mmol/L (19-24)
[2018-12-08 13:25] LABS: ABG Base Excess 1.8 mmol/L; ABG HCO3 26 mmol/L (21-25); ABG PCO2 38 mmHg (35-45); ABG PH 7.44 (7.35-7.45); ABG PO2 322 mmHg (83-108); ABG Potassium Whole Blood 4.8 mmol/L (3.4-4.5); ABG Sodium Whole Blood 135 mmol/L (135-146); ABG TCO2 27 mmol/L (19-24)
[2018-12-08 13:59] LABS: ABG Base Excess 1.3 mmol/L; ABG HCO3 26 mmol/L (21-25); ABG PCO2 40 mmHg (35-45); ABG PH 7.42 (7.35-7.45); ABG PO2 320 mmHg (83-108); ABG Potassium Whole Blood 4.6 mmol/L (3.4-4.5); ABG Sodium Whole Blood 135 mmol/L (135-146); ABG TCO2 27 mmol/L (19-24)
[2018-12-08 14:32] LABS: ABG Base Excess 1.4 mmol/L; ABG HCO3 26 mmol/L (21-25); ABG PCO2 40 mmHg (35-45); ABG PH 7.42 (7.35-7.45); ABG PO2 243 mmHg (83-108); ABG Potassium Whole Blood 4.6 mmol/L (3.4-4.5); ABG Sodium Whole Blood 136 mmol/L (135-146); ABG TCO2 27 mmol/L (19-24)
[2018-12-08] MEDS ORDERED: MILRINONE-D5W PMX 20 MG in DEXTROSE/WATER 1 100ML.BAG IV ONE (15:30)
[2018-12-08 16:18] LABS: ABG Base Excess -0.3 mmol/L; ABG HCO3 25 mmol/L (21-25); ABG Oxygen Saturation 99.6 % (94-97); ABG PCO2 41 mmHg (35-45); ABG PH 7.39 (7.35-7.45); ABG PO2 149 mmHg (83-108); ABG Potassium Whole Blood 4.6 mmol/L (3.4-4.5); ABG Sodium Whole Blood 137 mmol/L (135-146); ABG TCO2 26 mmol/L (19-24)
[2018-12-08 16:25] LABS: ABG PO2 >420 mmHg (83-108)
[2018-12-08] MEDS ORDERED: PROPOFOL 1,000 MG in EMPTY BAG 1 BAG IV SCH (16:46)
[2018-12-08] MEDS ORDERED: IPRATROPIUM-ALBUTEROL 3 ML NEB INHALATION PRN (16:46)
[2018-12-08] MEDS ORDERED: METOCLOPRAMIDE 5 MG/ML 2 ML VIAL IVP PRN (16:46)
[2018-12-08] MEDS ORDERED: AMIODARONE 360 MG in DEXTROSE 5% IN WATER 200 ML IV PRN ×2 (16:46)
[2018-12-08] MEDS ORDERED: DEXTROSE 5% IN WATER 100 ML with AMIODARONE 150 MG IV PRN (16:46)
[2018-12-08] MEDS ORDERED: CALCIUM CHLORIDE 1,000 MG in SODIUM CHLORIDE 0.9% 100 ML IV PRN (16:46)
[2018-12-08] MEDS ORDERED: Potassium Replacement Protocol 1 EACH MISC MISCELLANE PRN (16:46)
[2018-12-08] MEDS ORDERED: Magnesium Replacement Protocol 1 EACH MISC MISCELLANE PRN (16:46)
[2018-12-08] MEDS ORDERED: Phosphorus Replacement Protoco 1 EACH MISC MISCELLANE PRN (16:46)
[2018-12-08] MEDS ORDERED: ONDANSETRON 4 MG/2 ML VIAL IVP PRN (16:46)
[2018-12-08] MEDS ORDERED: AMIODARONE 300 MG in DEXTROSE 5% IN WATER 250 ML IV PRN ×2 (16:46)
[2018-12-08] MEDS ORDERED: MORPHINE SULFATE 2 MG/ML SYRINGE IVP PRN (16:46)
[2018-12-08] MEDS ORDERED: BENZOCAINE/MENTHOL LOZENG 1 EACH LOZENGE MUCOUS MEM PRN (16:46)
[2018-12-08 16:55] LABS: Glucose,Whole Blood 92 mg/dL (75-99)
--- NOTE | 2018-12-08 17:27 | XR ---
EXAMINATION: XR chest 1V portable DATE AND TIME: 12/08/2018 5:06 PM CLINICAL INDICATION: PHH; Post Operative Cardiac Surgery TECHNIQUE: Portable AP supine radiograph COMPARISON: 12/02/2018 FINDINGS: Interval cardiac surgery changes noted, with sternal sutures and mediastinal clips noted. Endotracheal tube tip superimposed over the mid trachea. Right IJ [place] tip superimposed over the proximal RPA. Mediastinal drain, bilateral chest tubes, EKG leads. The lungs are clear. Mild pleural shadow thickening at the right AC laterally, suggests minimal pleural effusion. No evide nce of pneumothorax on this supine radiograph. Enlarged cardiac silhouette similar to the prior study. Soft tissues and skeletal structures are unremarkable. IMPRESSION: POST-CARDIAC SURGERY AP SUPINE RADIOGRAPH.
[2018-12-08 17:28] LABS: Ionized Calcium 4.5 mg/dL (4.5-5.3)
[2018-12-08 17:31] LABS: ABG Base Excess -0.3 mmol/L; ABG HCO3 25 mmol/L (21-25); ABG PCO2 45 mmHg (35-45); ABG PH 7.36 (7.35-7.45); ABG PO2 >400 mmHg (83-108); ABG TCO2 27 mmol/L (19-24)
[2018-12-08] MEDS: NITROGLYCERIN-D5W PMX 50 MG in DEXTROSE/WATER 1 250ML.BAG IV SCH (17:31)
[2018-12-08 17:38] LABS: ALT 36 U/L (21-72); AST 63 U/L (17-59); Albumin 1.8 g/dL (3.5-5.0); Alkaline Phosphatase 35 U/L (38-126); Anion Gap 3 mmol/L; Basophils # (A) 0.1 k/uL (0-0.2); Basophils % (A) 0 %; Blood Urea Nitrogen 32 mg/dL (9-20); Carbon Dioxide 25 mmol/L (22-30); Chloride 108 mmol/L (98-107); Eosinophils # (A) 0.5 k/uL (0-0.7); Eosinophils % (A) 1 %; Glucose 101 mg/dL (74-99); HCT 29.7 % (39.0-53.0); Lymphocytes # (A) 0.9 k/uL (1.0-4.8); Lymphocytes % (A) 3 %; MCH 26.8 pg (25.0-35.0); MCV 81.3 fL (80.0-100.0); Magnesium 2.9 mg/dL (1.6-2.3); Mean Platelet Volume 8.3; Monocytes # (A) 2.1 k/uL (0-1.0); Monocytes % (A) 6 %; Neutrophils # (A) 29.1 k/uL (1.3-7.7); Neutrophils % (A) 89 %; Platelet Count 264 k/uL (150-450); Potassium 4.5 mmol/L (3.5-5.1); RBC 3.66 m/uL (4.30-5.90); RDW 15.2 % (11.5-15.5); Sodium 136 mmol/L (137-145); Total Bilirubin 0.9 mg/dL (0.2-1.3); Total Protein 3.3 g/dL (6.3-8.2); WBC 32.8 k/uL (3.8-10.6)
[2018-12-08 17:39] LABS: HGB 9.8 gm/dL (13.0-17.5)
[2018-12-08 17:40] LABS: INR 1.2 (<1.2); Partial Thromboplastin Time 57.1 sec (22.0-30.0); Prothrombin Time 12.7 sec (9.0-12.0)
[2018-12-08] MEDS: LACTATED RINGERS 1,000 ML IV SCH (17:47)
[2018-12-08] MEDS: EPINEPHrine 4 MG in DEXTROSE 5% IN WATER 250 ML IV SCH ×2 (17:48)
[2018-12-08] MEDS: TRIAMCINOLONE ACET 0.1% OINTMENT 15 GM TUBE TOPICAL SCH ×2 (17:50→23:19)
[2018-12-08] MEDS: ACETAMINOPHEN IV (For NPO) 1,000 MG in EMPTY BAG 1 BAG IVPB SCH (17:51)
[2018-12-08] MEDS: SODIUM CHLORIDE 0.9% 50 ML with VASOPRESSIN 20 UNIT IVPB SCH ×4 (17:51→23:18)
[2018-12-08] MEDS: ALBUMIN HUMAN 5% 250 ML in EMPTY BAG 1 BAG IVPB PRN (18:35)
[2018-12-08 19:07] LABS: Glucose,Whole Blood 113 mg/dL (75-99)
[2018-12-08 19:56] LABS: Glucose,Whole Blood 117 mg/dL (75-99)
[2018-12-08] MEDS ORDERED: IPRATROPIUM-ALBUTEROL 3 ML NEB INHALATION SCH (20:00)
[2018-12-08 20:30] LABS: Basophils # (A) 0.1 k/uL (0-0.2); Basophils % (A) 0 %; Eosinophils # (A) 0.1 k/uL (0-0.7); Eosinophils % (A) 0 %; HCT 21.8 % (39.0-53.0); Lymphocytes # (A) 0.3 k/uL (1.0-4.8); Lymphocytes % (A) 1 %; MCHC 34.3 g/dL (31.0-37.0); MCV 81.5 fL (80.0-100.0); Mean Platelet Volume 8.2; Monocytes # (A) 0.7 k/uL (0-1.0); Monocytes % (A) 3 %; Neutrophils # (A) 22.4 k/uL (1.3-7.7); Neutrophils % (A) 95 %; Platelet Count 202 k/uL (150-450); Poikilocytosis Slight; RBC 2.67 m/uL (4.30-5.90); RDW 14.8 % (11.5-15.5); WBC 23.6 k/uL (3.8-10.6)
[2018-12-08 20:33] LABS: HGB 7.5 gm/dL (13.0-17.5)
[2018-12-08 20:43] LABS: Glucose,Whole Blood 111 mg/dL (75-99)
[2018-12-08 22:03] LABS: Glucose,Whole Blood 113 mg/dL (75-99)
[2018-12-08 23:09] LABS: Glucose,Whole Blood 122 mg/dL (75-99)
[2018-12-08] MEDS: CLEVIDIPINE BUTYRATE 25 MG in EMPTY BAG 1 BAG IV SCH (23:17)
[2018-12-08] MEDS: MUPIROCIN 2% OINT 22 GM TUBE NASAL SCH (23:19)
[2018-12-08] MEDS: ceFAZolin IN SWFI 2 GM/20 ML SYRINGE IVP SCH (23:19)
[2018-12-08] MEDS: HEPARIN SODIUM,PORCINE 5,000 UNIT/ML 1 ML VIAL SQ SCH (23:22)
[2018-12-08 23:51] LABS: HCT 21.7 % (39.0-53.0); HGB 7.3 gm/dL (13.0-17.5); MCH 27.3 pg (25.0-35.0); MCHC 33.6 g/dL (31.0-37.0); MCV 81.4 fL (80.0-100.0); Mean Platelet Volume 7.8; Platelet Count 238 k/uL (150-450); Poikilocytosis Slight; RBC 2.67 m/uL (4.30-5.90); WBC 28.4 k/uL (3.8-10.6)
[2018-12-09] MEDS ORDERED: MILRINONE-D5W PMX 20 MG in DEXTROSE/WATER 1 100ML.BAG IV ONE
[2018-12-09] MEDS: ACETAMINOPHEN IV (For NPO) 1,000 MG in EMPTY BAG 1 BAG IVPB SCH (00:17)
[2018-12-09] MEDS: ALBUMIN HUMAN 5% 250 ML in EMPTY BAG 1 BAG IVPB PRN (00:18)
[2018-12-09 00:28] LABS: Glucose,Whole Blood 135 mg/dL (75-99)
[2018-12-09 01:30] LABS: Glucose,Whole Blood 129 mg/dL (75-99)
[2018-12-09 02:06] LABS: Band Neutrophils % 16 %; Lymphocytes # (M) 0.28 k/uL (1.0-4.8); Metamyelocytes # (M) 0.28 k/uL (0); Metamyelocytes % 1 %; Monocytes # (M) 0.85 k/uL (0-1.0); Neutrophils % (M) 79 %; Nucleated Red Blood Cells 0 /100 WBC (0-0); Total Cells Counted 200
[2018-12-09 02:08] LABS: Polychromasia Present
[2018-12-09 02:09] LABS: Poikilocytosis (M) Present
[2018-12-09 02:33] LABS: Glucose,Whole Blood 136 mg/dL (75-99)
[2018-12-09] MEDS: SODIUM CHLORIDE 0.9% 50 ML with VASOPRESSIN 20 UNIT IVPB SCH ×2 (02:33)
[2018-12-09 03:33] LABS: Glucose,Whole Blood 118 mg/dL (75-99)
[2018-12-09 04:24] LABS: ABG Base Excess 0.9 mmol/L; ABG HCO3 26 mmol/L (21-25); ABG PCO2 44 mmHg (35-45); ABG PH 7.38 (7.35-7.45); ABG PO2 219 mmHg (83-108); ABG TCO2 27 mmol/L (19-24)
[2018-12-09 04:25] LABS: Glucose,Whole Blood 141 mg/dL (75-99)
[2018-12-09 05:14] LABS: Glucose,Whole Blood 146 mg/dL (75-99)
[2018-12-09 05:58] LABS: Ionized Calcium 4.3 mg/dL (4.5-5.3)
[2018-12-09 06:08] LABS: Albumin 2.3 g/dL (3.5-5.0); Magnesium 2.6 mg/dL (1.6-2.3); Potassium 5.3 mmol/L (3.5-5.1); Total Bilirubin 0.4 mg/dL (0.2-1.3); Total Protein 3.9 g/dL (6.3-8.2)
[2018-12-09 06:15] LABS: Basophils % (A) 0 %; Eosinophils % (A) 0 %; Lymphocytes # (A) 0.3 k/uL (1.0-4.8); Lymphocytes % (A) 1 %; MCH 27.7 pg (25.0-35.0); MCHC 33.9 g/dL (31.0-37.0); MCV 81.7 fL (80.0-100.0); Mean Platelet Volume 7.9; Monocytes # (A) 1.1 k/uL (0-1.0); Monocytes % (A) 5 %; Neutrophils # (A) 21.3 k/uL (1.3-7.7); Neutrophils % (A) 93 %; Platelet Count 217 k/uL (150-450); Poikilocytosis Slight; RBC 2.44 m/uL (4.30-5.90); RDW 14.9 % (11.5-15.5); WBC 22.9 k/uL (3.8-10.6)
[2018-12-09 06:20] LABS: Glucose,Whole Blood 146 mg/dL (75-99)
[2018-12-09 06:24] LABS: HGB 6.8 gm/dL (13.0-17.5)
--- NOTE | 2018-12-09 06:34 | OP ---
OPERATIVE REPORT DATE OF SURGERY: 12/08/2018. SURGEON: Camilla Rivero MD. 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 POSTOPERATIVE DIAGNOSES: Ltx-AC-gqoyuevcj myocardial infarction with triple-vessel coronary artery disease, moderate left ventricular dysfunction with qrbv-xo-yvlkusha mitral valve regurgitation, congestive heart failure, status post remote stenting to his LAD in 2004, diabetes with ulcers in the legs, hyperlipidemia, hypertension, paroxysmal atrial fibrillation with evidence of remote lateral wall myocardial infarction. INDICATION FOR SURGERY: Patient is a 78-year-old gentleman who presented in a picture of heart failure. He had elevated troponin. Workup included cardiac catheterization and 2D echo. The patient had diffuse disease and had prior stenting to his LAD in its mid aspect in 2004 that seems to be patent. However, the proximal circumflex which is a dominant artery had severe stenosis in it. Again, patient had evidence of diffuse disease. The patient is a bit debilitated and has venous stasis ulcers. He was optimized medically and from the pulmonary standpoint with steroids and at this point is being taken for revascularization. The increased risks calculated by STS was discussed with him and his family. They understood it and agreed to proceed. PROCEDURE: 1. Quadruple coronary artery bypass grafting using the left internal mammary artery to the left anterior descending artery, reverse saphenous vein graft from the aorta to the first diagonal artery, reverse saphenous vein graft from the aorta to the first obtuse marginal artery, reverse saphenous vein graft from the aorta to the distal posterolateral branch of the circumflex artery which is a dominant artery. 2. Bilateral pulmonary vein isolation using the radiofrequency bipolar clamp from Atri[employer]ure. 3. Intraoperative exclusion of the left atrial appendage using a 40 mm AtriClip. 4. Intraoperative transesophageal echocardiogram and epiaortic scanning. 5. Intraoperative graft flow measurements using the Jimmy [employer] system. DESCRIPTION OF THE PROCEDURE: The patient in supine position a right internal jugular Novice-Iraida catheter and right radial arterial line were inserted in the preoperative holding area. His PA pressure was 60/40 and cardiac index was 1.5. Subsequently he was brought to the operating room where general endotracheal anesthesia was induced uneventfully. He received 2 grams of cefazolin intravenously. A Torres catheter was inserted. The chest, abdomen and both lower extremities were prepped and draped using ChloraPrep. Ioban was used to cover the skin. ANIL showed moderate to severe left ventricular dysfunction with moderate mitral valve regurgitation and lateral akinesia. The right ventricle had normal function and was of normal size. A midline sternotomy was performed and the bone was relatively dense. The left hemisternum was elevated and left internal mammary artery was harvested in a somewhat skeletonized fashion. The left pleura was intentionally opened in this process and we drained around 500 mL of serous pleural effusion. I opened the right pleura and aspirated a total of 2 L of serous effusion. Each pleural cavity was drained with a 19- [place] Carson drain. In the same setting, the right then the left greater saphenous vein were harvested endoscopically from groin to knee levels and the branches were tied. The leg incisions were closed over a drain. The veins were prepared and appeared to be of good quality around 4 mm in diameter. Mediastinal fat was transected between 2 ties and epiaortic scanning revealed concentric intimal thickening but no protruding atheroma in the ascending aorta. Pericardium was opened and an inverted T-fashion a pericardial cradle was created. Findings included a normal soft aorta and an enlarged heart with fatty surface obscuring the coronary arteries and later on evidence of fibrotic lateral wall pointing to a remote myocardial infarction. After systemic heparinization, after placement of respective pledgeted pursestring, aortic cannulation with a 21-[place] Soft-Flow cannula and venous cannulation via the right atrial appendage with a dual stage cannula was performed. Antegrade as well as retrograde cardioplegia catheters were inserted. Cardiopulmonary bypass was initiated and with the heart empty and warm, we looked at the target. The LAD appeared to be diffusely diseased. We could feel the stent in its mid aspect and it was uncovered distally. The distal circumflex artery appeared to be the best target and appeared to be relatively thin-walled and was identified. The lateral wall and due to fibrosis, it was hard to find the first diagonal artery and obtuse marginal artery, but eventually they were found intramyocardial. The patient had diffuse calcific disease which made the procedure very tedious. We proceeded at this point at encircling the right-sided pulmonary vein and applied 3 times the bipolar clamp ablation. We did the same on the left side after incising the ligament of Scottie and proceeded at ablation of the left pulmonary vein using an AtriCure clamp also 3 times. The left atrial appendage was excluded with a 40 mm AtriClip. The aorta was clamped and during aortic clamping myocardial protection was achieved with initial dose of antegrade cold blood cardioplegia followed by dose of retrograde cold blood cardioplegia. All subsequent doses were given retrograde and we gave some doses at some point antegrade. The first distal anastomosis was between a good segment of vein and the distal circumflex artery which was around 1.5 mm in diameter thin-walled using Prolene 7-0 in continuous fashion. That graft was routed to the right side. The second distal anastomosis was between another segment of vein and intramyocardial first obtuse marginal artery which was around 1.5 mm in diameter where it was uncovered thin- walled intramyocardial but distally it was diffusely diseased using Prolene 7-0 in continuous fashion. The third and last distal anastomosis was between another segment of vein and the thin-walled diagonal artery, which was initially opened proximally and was very diseased and through that opening was able to get a probe that pointed to its distal part where I opened it and it was small and I put in a 1 mm shunt. The proximal opening was oversewn with a Prolene 6-0 suture reinforced by a pledgeted 4-0 Prolene. I proceeded at some point at anastomosing the third to the thin-walled first diagonal artery using Prolene 7-0 in continuous fashion. The fourth and last distal anastomosis was between the left internal mammary artery in the distal aspect of the left anterior descending artery, which had diffuse calcific disease and there was one spot with soft anterior wall. However, the lateral wall was calcified and we were rkistin to be able to achieve the anastomosis and be happy with it. Rewarming was started as we punched out 3 buttons of the ascending aorta and connected the 3 veins using Prolene 6 0 in continuous fashion. The patient had been loaded with Primacor and was on Primacor drip and we proceeded at some de-airing maneuver before unclamping the aorta. Hemostasis was up front satisfactory. After a period of reperfusion, patient regained slow sinus rhythm. I applied 2 monopolar atrial pacing wires to the respective pursestring on the right atrium and we inserted a bipolar ventricular pacing wire via the inferior aspect of the right ventricle. We established DDD pacing. After a period of reperfusion and with the patient on Primacor and moderate dose Levophed, we were able to wean off CP bypass. ANIL showed improved left ventricular function. The cardiac index was 2. That was consistent and stable. Mitral regurgitation was mild to moderate. At this point, test dose and full dose protamine was given. Decannulation followed. The venous cannulation site was reinforced with running Prolene 4-0. A groove was made in the left pleural pericardial fat to accommodate the mammary artery medial to the lung and away from the posterior sternal table. The pericardial fat was approximated over the heart and the grafts partially. Two Carson drains were placed, one substernally and one in the posterior pericardium. After ensuring adequate hemostasis, hemodynamic and after correct sponge, instrument, and needle count, the sternum was closed using 5 [id number] [place] cable after interposing Fibrillar between the sternal edges. Thorough irrigation with cefazolin followed. The rest of the closure proceeded in layers. Skin glue was applied. Patient did not receive any blood bank product, but received 600 mL of Cell Saver blood. He was transferred to the ICU on low-dose Levophed, low-dose epinephrine, 0.5 mcg/kg per minute of Primacor, mean artery pressure of 70, PA pressure 42/17, AV paced at 80. MMODL / IJN: [id number] / MTDD
[2018-12-09] MEDS: IPRATROPIUM-ALBUTEROL 3 ML NEB INHALATION SCH ×4 (07:21→20:58)
[2018-12-09 07:28] LABS: Glucose,Whole Blood 134 mg/dL (75-99)
[2018-12-09] MEDS ORDERED: CALCIUM GLUCONATE 1 GM in SODIUM CHLORIDE 0.9% 100 ML IVPB ONE (07:30)
--- NOTE | 2018-12-09 07:30 | XR ---
EXAMINATION TYPE: XR chest 1V portable DATE OF EXAM: 12/09/2018 COMPARISON: Prior chest x-ray 12/08/2018 HISTORY: Postop cardiac surgery TECHNIQUE: Single frontal view of the chest is obtained. FINDINGS: Patient is post median sternotomy, endotracheal tube, NG tube are overlying appropriate po sitions. Atrial appendage clipping is noted. Epicardial pacing leads are in place. Chest tubes are st able in appearance. No evident pneumothorax or sizable effusion, there is minimal blunting of the rig ht costophrenic angle. Heart remains enlarged. Median sternal drain noted over the midline. Right jug ular central venous sheath, a coaxial catheter are stable overlying the pulmonary artery. IMPRESSION: Satisfactory postoperative chest x-ray.
[2018-12-09] MEDS: MILRINONE-D5W PMX 20 MG in DEXTROSE/WATER 1 100ML.BAG IV SCH ×4 (08:07→22:30)
[2018-12-09] MEDS: NITROGLYCERIN-D5W PMX 50 MG in DEXTROSE/WATER 1 250ML.BAG IV SCH (08:12)
[2018-12-09 08:21] LABS: Glucose,Whole Blood 126 mg/dL (75-99)
[2018-12-09] MEDS ORDERED: PANTOPRAZOLE 40 MG/10 ML VIAL IVP SCH (09:00)
[2018-12-09] MEDS ORDERED: METOPROLOL TARTRATE 12.5 MG TAB PO SCH (09:00)
[2018-12-09] MEDS ORDERED: CHLORHEXIDINE GLUCONATE 15 ML CUP MUCOUS MEM SCH (09:00)
[2018-12-09 09:06] LABS: Glucose,Whole Blood 116 mg/dL (75-99)
[2018-12-09] MEDS ORDERED: FUROSEMIDE 10 MG/ML 4 ML VIAL IV STA (09:07)
[2018-12-09] MEDS: ASPIRIN 325 MG TAB PO SCH (09:18)
[2018-12-09] MEDS: CLOPIDOGREL 75 MG TAB PO SCH (09:18)
[2018-12-09] MEDS: MUPIROCIN 2% OINT 22 GM TUBE NASAL SCH ×2 (09:19→20:33)
[2018-12-09] MEDS: HEPARIN SODIUM,PORCINE 5,000 UNIT/ML 1 ML VIAL SQ SCH ×2 (09:19→16:16)
[2018-12-09 09:34] LABS: ABG HCO3 26 mmol/L (21-25); ABG PCO2 39 mmHg (35-45); ABG PH 7.42 (7.35-7.45); ABG PO2 185 mmHg (83-108); ABG TCO2 27 mmol/L (19-24)
--- NOTE | 2018-12-09 09:48 | PN ---
PROGRESS NOTE DATE OF SERVICE: December 09, 2018. This is a 78-year-old male that was pre-oped by our team prior to open-heart surgery. He is postop day #1 status post 4-vessel bypass grafting. The patient was maintained on the ventilator overnight as per the surgeon's request. Currently, the patient is on SIMV mode rate of 12, tidal volume 500, FiO2 of 40%, PEEP of 8. Blood gases show pO2 of 219, PaCO2 of 44, pH 7.38 and that blood gas by the was done on 50%. The patient is receiving lactated Ringer's at 20 mL an hour, insulin at 2 units an hour, epinephrine 1.72 mcg/minute and Primacor at 32.25 mcg/minute. The patient is awake and alert. Propofol has been off since 7:30. I have asked the nurses and the respiratory therapist to switch him to PSV and CPAP of 5. The surgeon gives a go ahead so that we could start weaning. The patient seems to be awake and alert. Hemodynamically, he seems stable and is improving. Current vital signs are reviewed. Temperature is 98.1, heart rate 72, respiratory rate 22, blood pressure 130/50, mean 76, saturations are 100%. Appears in no acute distress. HEENT examination is grossly unremarkable. There is an orally placed endotracheal tube and NG tube. NECK: Supple. Full range of motion. No adenopathy. Cardiovascular examination reveals regular rhythm and rate. Heart rate 72. S1, S2 normal. Heart sounds are distant. Lungs are mostly clear. A few scattered rhonchi noted. Abdomen is soft. No masses. Bowel sounds not heard. Extremities are intact. No cyanosis, clubbing, or edema. Skin without rash. Neurologic examination is difficult to evaluate given his current level of sedation. Labs are reviewed. His white count 22.9, hemoglobin 6.8, hematocrit 20.0, platelet count 217,000. He will get 1 unit of blood for that hemoglobin of 6.8. His most recent blood gas is noted. The FiO2 was dropped. Sodium 138, potassium 5.3, chloride 106, CO2 is 26. Anion gap is 6. BUN and creatinine were 33 and 1.17. The rest of the labs look okay. Chest x-ray looks stable. ASSESSMENT: 1. Postoperative day #1, status post 4-vessel bypass grafting for multivessel coronary artery disease. 2. Routine postoperative ventilator management. 3. Postoperative anemia. 4. Status post subacute inferior posterior myocardial infarction. 5. Acute heart failure secondary to myocardial infarction with an ejection fraction of 40% to 45%. 6. Type 2 diabetes mellitus. 7. Hypertension by history. 8. History of hyperlipidemia. 9. History of atrial flutter, status post previous cardioversion August 2018. 10.History of coronary artery disease with previous PCI. 11.Status post right-sided thoracentesis showing a transudative effusion consistent with congestive heart failure. PLAN: The patient is off propofol. We will switch him to PSV 8 and CPAP of 5. The patient will progress with a weaning trial. We will get a full set of weaning parameters including tidal volume, vital capacity, negative inspiratory force, minute volume, respiratory rate and rapid shallow breathing index. We will do a cuff leak test. If the patient is adequate, he will be extubated. Surgery said it was okay to proceed with weaning and extubation. CRITICAL CARE TIME: 36 minutes. KRISTAL / DONALD: [id number] /
[2018-12-09 10:14] LABS: Glucose,Whole Blood 115 mg/dL (75-99)
[2018-12-09] MEDS: ceFAZolin IN SWFI 2 GM/20 ML SYRINGE IVP SCH ×2 (10:32→16:16)
--- NOTE | 2018-12-09 10:39 | P.PN ---
Subjective Progress Note Date: 12/09/18 Principal diagnosis: Severe triple vessel coronary artery disease, non-STEMI, acute on chronic systolic and diastolic heart failure with ejection fraction 40-45%, moderate left ventricular dysfunction with mild to moderate mitral valve regurgitation, right-sided pleural effusion status post thoracentesis with removal of 900 mL transudative fluid. 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 Preoperative leukocytosis, acute renal failure. POD #1 urgent quadruple coronary artery bypass grafting using the left internal mammary artery to the left anterior descending artery, reverse saphenous vein graft from the aorta to the first diagonal artery, reverse saphenous vein graft from the aorta to the first obtuse marginal artery, reverse saphenous vein graft from the aorta to the distal posterior lateral branch of the circumflex artery which is a dominant artery, bilateral pulmonary vein isolation using the radiofrequency bipolar clamp from [employer]ri[employer], intraoperative exclusion of the left atrial appendage using a 40 mm AtriClip, intraoperative transesophageal echocardiogram and epi-aortic scanning, and intraoperative graft flow m easurements using the One[employer] system, endoscopic harvesting of bilateral saphenous veins from the groin to the knee level. Postoperative acute blood loss anemia, expected outcome of surgery given he modilution and cardiopulmonary bypass pump. The patient is currently lying in bed in the intensive care unit in no acute distress. Remains mechanically ventilated. He was on IV sedation this morning but turned off, patient opening eyes and following all commands. Currently in normal sinus rhythm, hemodynamically stable on IV epinephrine, Primacor. Chest tube output has slowed down. Urine output is adequate. Hemoglobin has trended down overnight, 6.8 this morning. Objective - Vital Signs Vital signs: Vital Signs Temp 98.1 F 12/09/18 07:53 Pulse 72 12/09/18 07:53 Resp 22 12/09/18 07:53 BP 130/50 12/09/18 07:53 Pulse Ox 100 12/09/18 07:53 Intake & Output 04/04/19 04/05/19 04/05/19 18:59 06:59 18:59 Intake Total 1091 1677.776 49 Output Total 4060 1343 145 Balance -2969 334.776 -96 Weight 95.8 kg Intake: IV 304 959 49 ACETAMINOPHEN IV (For NPO 100 ) 1,000 mg In Empty Bag 1 bag @ 400 mls/hr IVPB Q6HR [facility] Rx#:[id number] Albumin Human 5% 250 ml 250 In Empty Bag 1 bag @ 250 mls/hr IVPB Q1HR PRN Rx#: [id number] CO/CI 290 20 HD pressure bags 99 9 Lactated Ringers 1,000 ml 220 20 @ 10 mls/hr IV .Q24H [facility] Rx#:[id number] Intake, IV Titration 120 158.776 Amount ACETAMINOPHEN IV (For NPO 100 ) 1,000 mg In Empty Bag 1 bag @ 400 mls/hr IVPB Q6HR [facility] Rx#:[id number] EPINEPHrine 4 mg In 109.060 Dextrose 5% in Water 250 ml @ 0.01 MCG/KG/MIN 3. 225 mls/hr IV .Q24H [facility] Rx#:[id number] Insulin Regular 100 unit 7.467 In Sodium Chloride 0.9% 100 ml @ Titrate IV .Q0M [facility] Rx#:[id number] Lactated Ringers 1,000 ml 20 20 @ 50 mls/hr IV .Q20H [facility] Rx#:[id number] Norepinephrine 4 mg In 5.651 Sodium Chloride 0.9% 250 ml @ Titrate IV .Q0M [facility] Rx#:[id number] Propofol 1,000 mg In 16.598 Empty Bag 1 bag @ Titrate IV .Q0M [facility] Rx#: [id number] Blood Product 667 560 0 Ffp 24 Cpd Unit 0 310 [id number] Platelet Irr Pheresis 337 Acda Unit [id number] Rc Pheresis As-3 Unit 0 [id number] Output: Chest Tube Drainage 1240 809 110 Left pleural 520 400 20 Mediastinal 120 99 10 Right Pleural 600 310 80 Drainage 60 Left Calf 30 Right Calf 30 Urine 1020 474 35 Estimated Blood Loss 1800 Other: Voiding Method Indwelling Catheter ABP, PAP, CO, CI - Last Documented Arterial Blood Pressure 125/45 Pulmonary Artery Pressure 43/17 Cardiac Output 5.7 Cardiac Index 3 - Constitutional General appearance: Present: cooperative, no acute distress, obese - Respiratory Details: Lungs sounds diminished bilaterally with coarse breath sounds in the right lung base. Respirations even, nonlabored. Currently on mechanical ventilation, SIMV mode, FiO2 40%, tidal volume 500, respiratory rate 12, PEEP 8. ABGs this morning 7.38/40/219/26/100%/0.9 and 50% FiO2 and PEEP of 8. 8.5 ET tube present, 25 at the lip. Mediastinal chest tube to continuous wall suction, 50 m L serous drainage overnight, 250 mL since surgery. Left pleural chest tube to continuous wall suction, 300 mL serosanguineous drainage overnight, 950 mL since surgery. Right pleural chest tube to continuous wall suction, 170 mL serous drainage overnight, 1000 mL since surgery. No air leaks present. - Cardiovascular Details: S1, S2 present. Regular rate and rhythm, AV paced on telemetry with underlying rhythm normal sinus. Sternum stable. A/V epicardial pacemaker wires present, connected to generator, DDD mode with heart rate 84 bpm. Palpable bilateral upper extremity pulses present, Doppler bilateral lower extremity pulses. Generalized edema present. Right internal jugular Oakley/Cordis, right brachial arterial line present. Last CO/CI 4.8/2.5 on 0.02 mcg/kg/min of epinephrine, 0.5 mcg/kg/min of Primacor. Heart hugger, SCDs, teds present. - Gastrointestinal Gastrointestinal Comment(s): Abdomen soft, nontender, nondistended, obese. Very hypoactive bowel sounds present 4 quadrants. OG tube present to low intermittent suction with trace amount of green drainage. - Genitourinary Genitourinary Comment(s): Torres present draining clear, yellow urine. Urine output overnight has run from 25 mL/hr up to 60 mL/hr back to 30 mL/h. - Integumentary Integumentary Comment(s): Skin is warm and dry with evidence of good perfusion. Anterior chest incision well approximated covered with dry intact dressing. Bilateral lower extremity EVH site well approximated, FREDIS drains present with minimal drainage. - Neurologic Neurologic: Present: CNII-XII intact - Musculoskeletal Musculoskeletal: Present: strength equal bilaterally - Psychiatric Psychiatric Comment(s): Currently off sedation, patient opens eyes, moves all 4 extremities equally, and follows all commands. - Allied health notes Allied health notes reviewed: nursing - Labs CBC & Chem 7: 0405/19 04:30 12/09/18 04:30 Labs: Abnormal Lab Results - Last 24 Hours (Table) 12/07/18 12/08/18 12/08/18 Range/Units 15:18 08:35 10:55 WBC (3.8-10.6) k/uL RBC (4.30-5.90) m/uL Hgb (13.0-17.5) gm/dL Hct (39.0-53.0) % Neutrophils # (1.3-7.7) k/uL Neutrophils # (Manual) (1.3-7.7) k/uL Lymphocytes # (1.0-4.8) k/uL Lymphocytes # (Manual) (1.0-4.8) k/uL Monocytes # (0-1.0) k/uL Metamyelocytes # (Man) (0) k/uL PT (9.0-12.0) sec INR (<1.2) APTT (22.0-30.0) sec ABG pH 7.47 H (7.35-7.45) ABG pCO2 (35-45) mmHg ABG pO2 225 H 160 H (83-108) mmHg ABG HCO3 26 H 27 H (21-25) mmol/L ABG Total CO2 27 H 29 H (19-24) mmol/L ABG O2 Saturation 100.0 H 99.8 H (94-97) % ABG Hematocrit (34.0-46.0) % ABG Potassium (3.4-4.5) mmol/L ABG Ionized Calcium 4.3 L 4.3 L (4.5-5.3) mg/dL ABG Glucose 50 L 49 L (75-99) mg/dL Hemoglobin 11.7 L (13.0-17.5) gm/dL Sodium (137-145) mmol/L Potassium (3.5-5.1) mmol/L Chloride (98-107) mmol/L BUN (9-20) mg/dL Glucose (74-99) mg/dL POC Glucose (mg/dL) (75-99) mg/dL Calcium (8.4-10.2) mg/dL Ionized Calcium Gladis (4.5-5.3) mg/dL Magnesium (1.6-2.3) mg/dL AST (17-59) U/L Alkaline Phosphatase (38-126) U/L Total Protein (6.3-8.2) g/dL Albumin (3.5-5.0) g/dL Arterial Blood Potassium (3.4-4.5) mmol/L Arterial Blood Glucose 50 L 49 L (75-99) mg/dL Crossmatch See Detail 12/08/18 12/08/18 12/08/18 Range/Units 11:46 12:24 12:50 WBC (3.8-10.6) k/uL RBC (4.30-5.90) m/uL Hgb (13.0-17.5) gm/dL Hct (39.0-53.0) % Neutrophils # (1.3-7.7) k/uL Neutrophils # (Manual) (1.3-7.7) k/uL Lymphocytes # (1.0-4.8) k/uL Lymphocytes # (Manual) (1.0-4.8) k/uL Monocytes # (0-1.0) k/uL Metamyelocytes # (Man) (0) k/uL PT (9.0-12.0) sec INR (<1.2) APTT (22.0-30.0) sec ABG pH 7.50 H 7.47 H 7.47 H (7.35-7.45) ABG pCO2 32 L (35-45) mmHg ABG pO2 >420 H 359 H 360 H (83-108) mmHg ABG HCO3 26 H 26 H (21-25) mmol/L ABG Total CO2 26 H 27 H 27 H (19-24) mmol/L ABG O2 Saturation 100.0 H 100.0 H 100.0 H (94-97) % ABG Hematocrit 24 L 22 L 22 L (34.0-46.0) % ABG Potassium 4.8 H (3.4-4.5) mmol/L ABG Ionized Calcium 3.7 L 3.6 L 3.6 L (4.5-5.3) mg/dL ABG Glucose 43 L 144 H 128 H (75-99) mg/dL Hemoglobin 7.8 L 7.0 L* 7.0 L* (13.0-17.5) gm/dL Sodium (137-145) mmol/L Potassium (3.5-5.1) mmol/L Chloride (98-107) mmol/L BUN (9-20) mg/dL Glucose (74-99) mg/dL POC Glucose (mg/dL) (75-99) mg/dL Calcium (8.4-10.2) mg/dL Ionized Calcium Gladis (4.5-5.3) mg/dL Magnesium (1.6-2.3) mg/dL AST (17-59) U/L Alkaline Phosphatase (38-126) U/L Total Protein (6.3-8.2) g/dL Albumin (3.5-5.0) g/dL Arterial Blood Potassium 4.8 H (3.4-4.5) mmol/L Arterial Blood Glucose 43 L 144 H 128 H (75-99) mg/dL Crossmatch 12/08/18 12/08/18 12/08/18 Range/Units 13:23 13:57 14:31 WBC (3.8-10.6) k/uL RBC (4.30-5.90) m/uL Hgb (13.0-17.5) gm/dL Hct (39.0-53.0) % Neutrophils # (1.3-7.7) k/uL Neutrophils # (Manual) (1.3-7.7) k/uL Lymphocytes # (1.0-4.8) k/uL Lymphocytes # (Manual) (1.0-4.8) k/uL Monocytes # (0-1.0) k/uL Metamyelocytes # (Man) (0) k/uL PT (9.0-12.0) sec INR (<1.2) APTT (22.0-30.0) sec ABG pH (7.35-7.45) ABG pCO2 (35-45) mmHg ABG pO2 322 H 320 H 243 H (83-108) mmHg ABG HCO3 26 H 26 H 26 H (21-25) mmol/L ABG Total CO2 27 H 27 H 27 H (19-24) mmol/L ABG O2 Saturation 100.0 H 100.0 H 100.0 H (94-97) % ABG Hematocrit 22 L 19 L* 19 L* (34.0-46.0) % ABG Potassium 4.8 H 4.6 H 4.6 H (3.4-4.5) mmol/L ABG Ionized Calcium 3.7 L 3.6 L 3.7 L (4.5-5.3) mg/dL ABG Glucose 179 H 176 H 153 H (75-99) mg/dL Hemoglobin 7.2 L 6.1 L* 6.1 L* (13.0-17.5) gm/dL Sodium (137-145) mmol/L Potassium (3.5-5.1) mmol/L Chloride (98-107) mmol/L BUN (9-20) mg/dL Glucose (74-99) mg/dL POC Glucose (mg/dL) (75-99) mg/dL Calcium (8.4-10.2) mg/dL Ionized Calcium Gladis (4.5-5.3) mg/dL Magnesium (1.6-2.3) mg/dL AST (17-59) U/L Alkaline Phosphatase (38-126) U/L Total Protein (6.3-8.2) g/dL Albumin (3.5-5.0) g/dL Arterial Blood Potassium 4.8 H 4.6 H 4.6 H (3.4-4.5) mmol/L Arterial Blood Glucose 179 H 176 H 153 H (75-99) mg/dL Crossmatch 12/08/18 12/08/18 12/08/18 Range/Units 16:17 17:05 17:05 WBC 32.8 H (3.8-10.6) k/uL RBC 3.66 L (4.30-5.90) m/uL Hgb 9.8 L D (13.0-17.5) gm/dL Hct 29.7 L (39.0-53.0) % Neutrophils # 29.1 H (1.3-7.7) k/uL Neutrophils # (Manual) (1.3-7.7) k/uL Lymphocytes # 0.9 L (1.0-4.8) k/uL Lymphocytes # (Manual) (1.0-4.8) k/uL Monocytes # 2.1 H (0-1.0) k/uL Metamyelocytes # (Man) (0) k/uL PT (9.0-12.0) sec INR (<1.2) APTT (22.0-30.0) sec ABG pH (7.35-7.45) ABG pCO2 (35-45) mmHg ABG pO2 149 H (83-108) mmHg ABG HCO3 (21-25) mmol/L ABG Total CO2 26 H (19-24) mmol/L ABG O2 Saturation 99.6 H (94-97) % ABG Hematocrit 26 L (34.0-46.0) % ABG Potassium 4.6 H (3.4-4.5) mmol/L ABG Ionized Calcium 4.0 L (4.5-5.3) mg/dL ABG Glucose 113 H (75-99) mg/dL Hemoglobin 8.5 L (13.0-17.5) gm/dL Sodium 136 L (137-145) mmol/L Potassium (3.5-5.1) mmol/L Chloride 108 H (98-107) mmol/L BUN 32 H (9-20) mg/dL Glucose 101 H (74-99) mg/dL POC Glucose (mg/dL) (75-99) mg/dL Calcium 7.0 L (8.4-10.2) mg/dL Ionized Calcium Gladis (4.5-5.3) mg/dL Magnesium 2.9 H (1.6-2.3) mg/dL AST 63 H (17-59) U/L Alkaline Phosphatase 35 L (38-126) U/L Total Protein 3.3 L (6.3-8.2) g/dL Albumin 1.8 L (3.5-5.0) g/dL Arterial Blood Potassium 4.6 H (3.4-4.5) mmol/L Arterial Blood Glucose 113 H (75-99) mg/dL Crossmatch 12/08/18 12/08/18 12/08/18 Range/Units 17:05 17:28 19:05 WBC (3.8-10.6) k/uL RBC (4.30-5.90) m/uL Hgb (13.0-17.5) gm/dL Hct (39.0-53.0) % Neutrophils # (1.3-7.7) k/uL Neutrophils # (Manual) (1.3-7.7) k/uL Lymphocytes # (1.0-4.8) k/uL Lymphocytes # (Manual) (1.0-4.8) k/uL Monocytes # (0-1.0) k/uL Metamyelocytes # (Man) (0) k/uL PT 12.7 H (9.0-12.0) sec INR 1.2 H (<1.2) APTT 57.1 H (22.0-30.0) sec ABG pH (7.35-7.45) ABG pCO2 (35-45) mmHg ABG pO2 >400 H (83-108) mmHg ABG HCO3 (21-25) mmol/L ABG Total CO2 27 H (19-24) mmol/L ABG O2 Saturation 100.0 H (94-97) % ABG Hematocrit (34.0-46.0) % ABG Potassium (3.4-4.5) mmol/L ABG Ionized Calcium (4.5-5.3) mg/dL ABG Glucose (75-99) mg/dL Hemoglobin (13.0-17.5) gm/dL Sodium (137-145) mmol/L Potassium (3.5-5.1) mmol/L Chloride (98-107) mmol/L BUN (9-20) mg/dL Glucose (74-99) mg/dL POC Glucose (mg/dL) 113 H (75-99) mg/dL Calcium (8.4-10.2) mg/dL Ionized Calcium Gladis (4.5-5.3) mg/dL Magnesium (1.6-2.3) mg/dL AST (17-59) U/L Alkaline Phosphatase (38-126) U/L Total Protein (6.3-8.2) g/dL Albumin (3.5-5.0) g/dL Arterial Blood Potassium (3.4-4.5) mmol/L Arterial Blood Glucose (75-99) mg/dL Crossmatch 12/08/18 12/08/18 12/08/18 Range/Units 19:54 20:24 20:41 WBC 23.6 H (3.8-10.6) k/uL RBC 2.67 L (4.30-5.90) m/uL Hgb 7.5 L D (13.0-17.5) gm/dL Hct 21.8 L (39.0-53.0) % Neutrophils # 22.4 H (1.3-7.7) k/uL Neutrophils # (Manual) (1.3-7.7) k/uL Lymphocytes # 0.3 L (1.0-4.8) k/uL Lymphocytes # (Manual) (1.0-4.8) k/uL Monocytes # (0-1.0) k/uL Metamyelocytes # (Man) (0) k/uL PT (9.0-12.0) sec INR (<1.2) APTT (22.0-30.0) sec ABG pH (7.35-7.45) ABG pCO2 (35-45) mmHg ABG pO2 (83-108) mmHg ABG HCO3 (21-25) mmol/L ABG Total CO2 (19-24) mmol/L ABG O2 Saturation (94-97) % ABG Hematocrit (34.0-46.0) % ABG Potassium (3.4-4.5) mmol/L ABG Ionized Calcium (4.5-5.3) mg/dL ABG Glucose (75-99) mg/dL Hemoglobin (13.0-17.5) gm/dL Sodium (137-145) mmol/L Potassium (3.5-5.1) mmol/L Chloride (98-107) mmol/L BUN (9-20) mg/dL Glucose (74-99) mg/dL POC Glucose (mg/dL) 117 H 111 H (75-99) mg/dL Calcium (8.4-10.2) mg/dL Ionized Calcium Gladis (4.5-5.3) mg/dL Magnesium (1.6-2.3) mg/dL AST (17-59) U/L Alkaline Phosphatase (38-126) U/L Total Protein (6.3-8.2) g/dL Albumin (3.5-5.0) g/dL Arterial Blood Potassium (3.4-4.5) mmol/L Arterial Blood Glucose (75-99) mg/dL Crossmatch 12/08/18 12/08/18 12/08/18 Range/Units 22:02 23:05 23:08 WBC 28.4 H (3.8-10.6) k/uL RBC 2.67 L (4.30-5.90) m/uL Hgb 7.3 L (13.0-17.5) gm/dL Hct 21.7 L (39.0-53.0) % Neutrophils # (1.3-7.7) k/uL Neutrophils # (Manual) 26.90 H (1.3-7.7) k/uL Lymphocytes # (1.0-4.8) k/uL Lymphocytes # (Manual) 0.28 L (1.0-4.8) k/uL Monocytes # (0-1.0) k/uL Metamyelocytes # (Man) 0.28 H (0) k/uL PT (9.0-12.0) sec INR (<1.2) APTT (22.0-30.0) sec ABG pH (7.35-7.45) ABG pCO2 (35-45) mmHg ABG pO2 (83-108) mmHg ABG HCO3 (21-25) mmol/L ABG Total CO2 (19-24) mmol/L ABG O2 Saturation (94-97) % ABG Hematocrit (34.0-46.0) % ABG Potassium (3.4-4.5) mmol/L ABG Ionized Calcium (4.5-5.3) mg/dL ABG Glucose (75-99) mg/dL Hemoglobin (13.0-17.5) gm/dL Sodium (137-145) mmol/L Potassium (3.5-5.1) mmol/L Chloride (98-107) mmol/L BUN (9-20) mg/dL Glucose (74-99) mg/dL POC Glucose (mg/dL) 113 H 122 H (75-99) mg/dL Calcium (8.4-10.2) mg/dL Ionized Calcium Gladis (4.5-5.3) mg/dL Magnesium (1.6-2.3) mg/dL AST (17-59) U/L Alkaline Phosphatase (38-126) U/L Total Protein (6.3-8.2) g/dL Albumin (3.5-5.0) g/dL Arterial Blood Potassium (3.4-4.5) mmol/L Arterial Blood Glucose (75-99) mg/dL Crossmatch 12/09/18 12/09/18 12/09/18 Range/Units 00:27 01:28 02:32 WBC (3.8-10.6) k/uL RBC (4.30-5.90) m/uL Hgb (13.0-17.5) gm/dL Hct (39.0-53.0) % Neutrophils # (1.3-7.7) k/uL Neutrophils # (Manual) (1.3-7.7) k/uL Lymphocytes # (1.0-4.8) k/uL Lymphocytes # (Manual) (1.0-4.8) k/uL Monocytes # (0-1.0) k/uL Metamyelocytes # (Man) (0) k/uL PT (9.0-12.0) sec INR (<1.2) APTT (22.0-30.0) sec ABG pH (7.35-7.45) ABG pCO2 (35-45) mmHg ABG pO2 (83-108) mmHg ABG HCO3 (21-25) mmol/L ABG Total CO2 (19-24) mmol/L ABG O2 Saturation (94-97) % ABG Hematocrit (34.0-46.0) % ABG Potassium (3.4-4.5) mmol/L ABG Ionized Calcium (4.5-5.3) mg/dL ABG Glucose (75-99) mg/dL Hemoglobin (13.0-17.5) gm/dL Sodium (137-145) mmol/L Potassium (3.5-5.1) mmol/L Chloride (98-107) mmol/L BUN (9-20) mg/dL Glucose (74-99) mg/dL POC Glucose (mg/dL) 135 H 129 H 136 H (75-99) mg/dL Calcium (8.4-10.2) mg/dL Ionized Calcium Gladis (4.5-5.3) mg/dL Magnesium (1.6-2.3) mg/dL AST (17-59) U/L Alkaline Phosphatase (38-126) U/L Total Protein (6.3-8.2) g/dL Albumin (3.5-5.0) g/dL Arterial Blood Potassium (3.4-4.5) mmol/L Arterial Blood Glucose (75-99) mg/dL Crossmatch 12/09/18 12/09/18 12/09/18 Range/Units 03:31 04:18 04:23 WBC (3.8-10.6) k/uL RBC (4.30-5.90) m/uL Hgb (13.0-17.5) gm/dL Hct (39.0-53.0) % Neutrophils # (1.3-7.7) k/uL Neutrophils # (Manual) (1.3-7.7) k/uL Lymphocytes # (1.0-4.8) k/uL Lymphocytes # (Manual) (1.0-4.8) k/uL Monocytes # (0-1.0) k/uL Metamyelocytes # (Man) (0) k/uL PT (9.0-12.0) sec INR (<1.2) APTT (22.0-30.0) sec ABG pH (7.35-7.45) ABG pCO2 (35-45) mmHg ABG pO2 219 H (83-108) mmHg ABG HCO3 26 H (21-25) mmol/L ABG Total CO2 27 H (19-24) mmol/L ABG O2 Saturation 100.0 H (94-97) % ABG Hematocrit (34.0-46.0) % ABG Potassium (3.4-4.5) mmol/L ABG Ionized Calcium (4.5-5.3) mg/dL ABG Glucose (75-99) mg/dL Hemoglobin (13.0-17.5) gm/dL Sodium (137-145) mmol/L Potassium (3.5-5.1) mmol/L Chloride (98-107) mmol/L BUN (9-20) mg/dL Glucose (74-99) mg/dL POC Glucose (mg/dL) 118 H 141 H (75-99) mg/dL Calcium (8.4-10.2) mg/dL Ionized Calcium Gladis (4.5-5.3) mg/dL Magnesium (1.6-2.3) mg/dL AST (17-59) U/L Alkaline Phosphatase (38-126) U/L Total Protein (6.3-8.2) g/dL Albumin (3.5-5.0) g/dL Arterial Blood Potassium (3.4-4.5) mmol/L Arterial Blood Glucose (75-99) mg/dL Crossmatch 12/09/18 12/09/18 12/09/18 Range/Units 04:30 04:30 05:12 WBC 22.9 H (3.8-10.6) k/uL RBC 2.44 L (4.30-5.90) m/uL Hgb 6.8 L* (13.0-17.5) gm/dL Hct 20.0 L (39.0-53.0) % Neutrophils # 21.3 H (1.3-7.7) k/uL Neutrophils # (Manual) (1.3-7.7) k/uL Lymphocytes # 0.3 L (1.0-4.8) k/uL Lymphocytes # (Manual) (1.0-4.8) k/uL Monocytes # 1.1 H (0-1.0) k/uL Metamyelocytes # (Man) (0) k/uL PT (9.0-12.0) sec INR (<1.2) APTT (22.0-30.0) sec ABG pH (7.35-7.45) ABG pCO2 (35-45) mmHg ABG pO2 (83-108) mmHg ABG HCO3 (21-25) mmol/L ABG Total CO2 (19-24) mmol/L ABG O2 Saturation (94-97) % ABG Hematocrit (34.0-46.0) % ABG Potassium (3.4-4.5) mmol/L ABG Ionized Calcium (4.5-5.3) mg/dL ABG Glucose (75-99) mg/dL Hemoglobin (13.0-17.5) gm/dL Sodium (137-145) mmol/L Potassium 5.3 H (3.5-5.1) mmol/L Chloride (98-107) mmol/L BUN 33 H (9-20) mg/dL Glucose 119 H (74-99) mg/dL POC Glucose (mg/dL) 146 H (75-99) mg/dL Calcium 7.0 L (8.4-10.2) mg/dL Ionized Calcium Gladis 4.3 L (4.5-5.3) mg/dL Magnesium 2.6 H (1.6-2.3) mg/dL AST (17-59) U/L Alkaline Phosphatase (38-126) U/L Total Protein 3.9 L (6.3-8.2) g/dL Albumin 2.3 L (3.5-5.0) g/dL Arterial Blood Potassium (3.4-4.5) mmol/L Arterial Blood Glucose (75-99) mg/dL Crossmatch 12/09/18 12/09/18 Range/Units : 07:26 WBC (3.8-10.6) k/uL RBC (4.30-5.90) m/uL Hgb (13.0-17.5) gm/dL Hct (39.0-53.0) % Neutrophils # (1.3-7.7) k/uL Neutrophils # (Manual) (1.3-7.7) k/uL Lymphocytes # (1.0-4.8) k/uL Lymphocytes # (Manual) (1.0-4.8) k/uL Monocytes # (0-1.0) k/uL Metamyelocytes # (Man) (0) k/uL PT (9.0-12.0) sec INR (<1.2) APTT (22.0-30.0) sec ABG pH (7.35-7.45) ABG pCO2 (35-45) mmHg ABG pO2 (83-108) mmHg ABG HCO3 (21-25) mmol/L ABG Total CO2 (19-24) mmol/L ABG O2 Saturation (94-97) % ABG Hematocrit (34.0-46.0) % ABG Potassium (3.4-4.5) mmol/L ABG Ionized Calcium (4.5-5.3) mg/dL ABG Glucose (75-99) mg/dL Hemoglobin (13.0-17.5) gm/dL Sodium (137-145) mmol/L Potassium (3.5-5.1) mmol/L Chloride (98-107) mmol/L BUN (9-20) mg/dL Glucose (74-99) mg/dL POC Glucose (mg/dL) 146 H 134 H (75-99) mg/dL Calcium (8.4-10.2) mg/dL Ionized Calcium Gladis (4.5-5.3) mg/dL Magnesium (1.6-2.3) mg/dL AST (17-59) U/L Alkaline Phosphatase (38-126) U/L Total Protein (6.3-8.2) g/dL Albumin (3.5-5.0) g/dL Arterial Blood Potassium (3.4-4.5) mmol/L Arterial Blood Glucose (75-99) mg/dL Crossmatch - Imaging and Cardiology Chest x-ray: report reviewed, image reviewed Assessment and Plan Assessment: 1. Severe triple-vessel coronary artery disease, non-STEMI, status post CABG 4 2. Acute on chronic systolic and diastolic heart failure with ejection fraction 40-45% 3. Moderate left ventricular dysfunction with mild to moderate mitral valve regurgitation 4. Right-sided pleural effusion status post thoracentesis with removal of 900 mL transudate of fluid 5. Leukocytosis 6. Acute renal failure, resolving 7. History of coronary artery disease with previous stents to the LAD in 2004, evidence of remote lateral wall myocardial infarction 8. Recent diagnosis of atrial flutter status post cardioversion on Eliquis for chronic for anticoagulation 9. Hypertension 10. Hyperlipidemia 11. Uncontrolled diabetes mellitus with hemoglobin A1c 7.8% 12. 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 Peripheral artery disease 14. Chronic venous stasis ulcers to his right lower extremity 15. Prostate disorder Plan: 1. Continue aspirin, statin, Plavix. Will restart beta alfred when able. Keep epicardial pacemaker wires connected to generator, generator turned off. 2. Discontinue IV nitro. Wean IV epi-and Primacor as tolerated, keep cardiac index 2.3 or greater. 3. Bronchodilators per pulmonology. 4. Wean from mechanical ventilation as tolerated. Vent management per pulmonology. 5. Once extubated, encourage incentive spirometry 10 times every hour while awake. 6. Once extubated, increase activity as tolerated. PT/OT/cardiac rehab following. 7. Will monitor daily labs and x-rays. Electro replacement per protocol. Will transfuse 1 unit packed red blood cells today followed by 40 mg IV Lasix. 8. Pain control with current medication regimen. 9. Insulin management per primary care service. 10. GI/DVT prophylaxis with Protonix and heparin, SCDs. 11. Venous stasis ulcer wound care per Dr. Eldridge. 12. More recommendations based on patient's clinical course. Time with Patient: Greater than 30
[2018-12-09 11:20] LABS: Glucose,Whole Blood 112 mg/dL (75-99)
[2018-12-09 12:07] LABS: Glucose,Whole Blood 100 mg/dL (75-99)
[2018-12-09 12:58] LABS: Glucose,Whole Blood 101 mg/dL (75-99)
[2018-12-09 13:05] LABS: Basophils % (A) 0 %; Eosinophils # (A) 0.1 k/uL (0-0.7); Eosinophils % (A) 1 %; HCT 23.1 % (39.0-53.0); HGB 7.7 gm/dL (13.0-17.5); Lymphocytes # (A) 0.4 k/uL (1.0-4.8); Lymphocytes % (A) 3 %; MCH 26.9 pg (25.0-35.0); MCHC 33.3 g/dL (31.0-37.0); MCV 80.6 fL (80.0-100.0); Mean Platelet Volume 9.1; Monocytes # (A) 0.8 k/uL (0-1.0); Monocytes % (A) 6 %; Neutrophils % (A) 89 %; Platelet Count 128 k/uL (150-450); Poikilocytosis Slight; RBC 2.87 m/uL (4.30-5.90); RDW 15.8 % (11.5-15.5); WBC 13.5 k/uL (3.8-10.6)
--- NOTE | 2018-12-09 14:00 | P.PN ---
Subjective Patient remains intubated. He is status post coronary artery bypass grafting yesterday. He has multivessel coronary artery disease He had converted bleeding intraoperatively and is being transfused Quadruple coronary artery bypass grafting was performed along with Maze procedure and left atrial appendectomy with atrial clip He is intubated and mechanically ventilated this point he is on multiple intravenous medications and is also on Bactrim cells Breath sounds are reduced bilaterally heart sounds are distant line abdomen is soft Impression Acute inferior posterior UT Multivessel coronary artery disease Status post coronary artery bypass grafting Hemoglobin is 7.7 Potassium 5.3 BUN 33 creatinine 1.2 Suggest Continue supportive care and continue current management. Once he is extubated and is off pressors and his cardiac medications will be strongly maximized Objective - Vital Signs Vital signs: Vital Signs Temp 98.2 F 12/09/18 12:00 Pulse 84 12/09/18 12:00 Resp 18 12/09/18 12:00 BP 133/64 12/09/18 10:00 Pulse Ox 95 12/09/18 12:00 Intake & Output 12/08/18 12/09/18 12/09/18 18:59 06:59 18:59 Intake Total 1091 1677.776 854.877 Output Total 4060 1343 740 Balance -2969 334.776 114.877 Weight 95.8 kg Intake: IV 304 959 264 ACETAMINOPHEN IV (For NPO 100 ) 1,000 mg In Empty Bag 1 bag @ 400 mls/hr IVPB Q6HR [facility] Rx#:[id number] Albumin Human 5% 250 ml 250 In Empty Bag 1 bag @ 250 mls/hr IVPB Q1HR PRN Rx#: [id number] CO/CI 290 90 HD pressure bags 99 54 Lactated Ringers 1,000 ml 220 120 @ 10 mls/hr IV .Q24H [facility] Rx#:[id number] Intake, IV Titration 120 158.776 280.877 Amount ACETAMINOPHEN IV (For NPO 100 ) 1,000 mg In Empty Bag 1 bag @ 400 mls/hr IVPB Q6HR [facility] Rx#:[id number] Calcium Gluconate 1 gm In 100 Sodium Chloride 0.9% 100 ml @ 100 mls/hr IVPB ONCE ONE Rx#:[id number] EPINEPHrine 4 mg In 109.060 57.190 Dextrose 5% in Water 250 ml @ 0.01 MCG/KG/MIN 3. 225 mls/hr IV .Q24H [facility] Rx#:[id number] Insulin Regular 100 unit 7.467 11.767 In Sodium Chloride 0.9% 100 ml @ Titrate IV .Q0M [facility] Rx#:[id number] Lactated Ringers 1,000 ml 20 20 @ 20 mls/hr IV .Q24H [facility] Rx#:[id number] Milrinone-D5w Pmx 20 mg 11.61 In Dextrose/Water 1 100ml .bag @ 0.375 MCG/KG/MIN 9 .675 mls/hr IV .[id number] [facility] Rx#:[id number] Nitroglycerin-D5w Pmx 50 20.975 mg In Dextrose/Water 1 250ml.bag @ 5 MCG/MIN 1.5 mls/hr IV .Q24H [facility] Rx#: [id number] Norepinephrine 4 mg In 5.651 Sodium Chloride 0.9% 250 ml @ Titrate IV .Q0M [facility] Rx#:[id number] Propofol 1,000 mg In 16.598 79.335 Empty Bag 1 bag @ Titrate IV .Q0M [facility] Rx#: [id number] Blood Product 667 560 310 Ffp 24 Cpd Unit 0 310 [id number] Platelet Irr Pheresis 337 Acda Unit [id number] Rc Pheresis As-3 Unit 310 [id number] Output: Chest Tube Drainage 1240 809 350 Left pleural 520 400 140 Mediastinal 120 99 40 Right Pleural 600 310 170 Drainage 60 30 Left Calf 30 Right Calf 30 30 Urine 1020 474 360 Estimated Blood Loss 1800 Other: Voiding Method Indwelling Catheter Indwelling Catheter ABP, PAP, CO, CI - Last Documented Arterial Blood Pressure 112/43 Pulmonary Artery Pressure 45/16 Cardiac Output 4.7 Cardiac Index 2.4 - Labs CBC & Chem 7: 12/09/18 13:00 12/09/18 04:30 Labs: Abnormal Lab Results - Last 24 Hours (Table) 12/07/18 12/08/18 12/08/18 Range/Units 15:18 08:35 10:55 WBC (3.8-10.6) k/uL RBC (4.30-5.90) m/uL Hgb (13.0-17.5) gm/dL Hct (39.0-53.0) % RDW (11.5-15.5) % Plt Count (150-450) k/uL Neutrophils # (1.3-7.7) k/uL Neutrophils # (Manual) (1.3-7.7) k/uL Lymphocytes # (1.0-4.8) k/uL Lymphocytes # (Manual) (1.0-4.8) k/uL Monocytes # (0-1.0) k/uL Metamyelocytes # (Man) (0) k/uL PT (9.0-12.0) sec INR (<1.2) APTT (22.0-30.0) sec ABG pH 7.47 H (7.35-7.45) ABG pCO2 (35-45) mmHg ABG pO2 225 H 160 H (83-108) mmHg ABG HCO3 26 H 27 H (21-25) mmol/L ABG Total CO2 27 H 29 H (19-24) mmol/L ABG O2 Saturation 100.0 H 99.8 H (94-97) % ABG Hematocrit (34.0-46.0) % ABG Potassium (3.4-4.5) mmol/L ABG Ionized Calcium 4.3 L 4.3 L (4.5-5.3) mg/dL ABG Glucose 50 L 49 L (75-99) mg/dL Hemoglobin 11.7 L (13.0-17.5) gm/dL Sodium (137-145) mmol/L Potassium (3.5-5.1) mmol/L Chloride (98-107) mmol/L BUN (9-20) mg/dL Glucose (74-99) mg/dL POC Glucose (mg/dL) (75-99) mg/dL Calcium (8.4-10.2) mg/dL Ionized Calcium Gladis (4.5-5.3) mg/dL Magnesium (1.6-2.3) mg/dL AST (17-59) U/L Alkaline Phosphatase (38-126) U/L Total Protein (6.3-8.2) g/dL Albumin (3.5-5.0) g/dL Arterial Blood Potassium (3.4-4.5) mmol/L Arterial Blood Glucose 50 L 49 L (75-99) mg/dL Crossmatch See Detail 0412/08/18 12/08/18 Range/Units 11:46 12:24 12:50 WBC (3.8-10.6) k/uL RBC (4.30-5.90) m/uL Hgb (13.0-17.5) gm/dL Hct (39.0-53.0) % RDW (11.5-15.5) % Plt Count (150-450) k/uL Neutrophils # (1.3-7.7) k/uL Neutrophils # (Manual) (1.3-7.7) k/uL Lymphocytes # (1.0-4.8) k/uL Lymphocytes # (Manual) (1.0-4.8) k/uL Monocytes # (0-1.0) k/uL Metamyelocytes # (Man) (0) k/uL PT (9.0-12.0) sec INR (<1.2) APTT (22.0-30.0) sec ABG pH 7.50 H 7.47 H 7.47 H (7.35-7.45) ABG pCO2 32 L (35-45) mmHg ABG pO2 >420 H 359 H 360 H (83-108) mmHg ABG HCO3 26 H 26 H (21-25) mmol/L ABG Total CO2 26 H 27 H 27 H (19-24) mmol/L ABG O2 Saturation 100.0 H 100.0 H 100.0 H (94-97) % ABG Hematocrit 24 L 22 L 22 L (34.0-46.0) % ABG Potassium 4.8 H (3.4-4.5) mmol/L ABG Ionized Calcium 3.7 L 3.6 L 3.6 L (4.5-5.3) mg/dL ABG Glucose 43 L 144 H 128 H (75-99) mg/dL Hemoglobin 7.8 L 7.0 L* 7.0 L* (13.0-17.5) gm/dL Sodium (137-145) mmol/L Potassium (3.5-5.1) mmol/L Chloride (98-107) mmol/L BUN (9-20) mg/dL Glucose (74-99) mg/dL POC Glucose (mg/dL) (75-99) mg/dL Calcium (8.4-10.2) mg/dL Ionized Calcium Gladis (4.5-5.3) mg/dL Magnesium (1.6-2.3) mg/dL AST (17-59) U/L Alkaline Phosphatase (38-126) U/L Total Protein (6.3-8.2) g/dL Albumin (3.5-5.0) g/dL Arterial Blood Potassium 4.8 H (3.4-4.5) mmol/L Arterial Blood Glucose 43 L 144 H 128 H (75-99) mg/dL Crossmatch 12/08/18 12/08/18 12/08/18 Range/Units 13:23 13:57 14:31 WBC (3.8-10.6) k/uL RBC (4.30-5.90) m/uL Hgb (13.0-17.5) gm/dL Hct (39.0-53.0) % RDW (11.5-15.5) % Plt Count (150-450) k/uL Neutrophils # (1.3-7.7) k/uL Neutrophils # (Manual) (1.3-7.7) k/uL Lymphocytes # (1.0-4.8) k/uL Lymphocytes # (Manual) (1.0-4.8) k/uL Monocytes # (0-1.0) k/uL Metamyelocytes # (Man) (0) k/uL PT (9.0-12.0) sec INR (<1.2) APTT (22.0-30.0) sec ABG pH (7.35-7.45) ABG pCO2 (35-45) mmHg ABG pO2 322 H 320 H 243 H (83-108) mmHg ABG HCO3 26 H 26 H 26 H (21-25) mmol/L ABG Total CO2 27 H 27 H 27 H (19-24) mmol/L ABG O2 Saturation 100.0 H 100.0 H 100.0 H (94-97) % ABG Hematocrit 22 L 19 L* 19 L* (34.0-46.0) % ABG Potassium 4.8 H 4.6 H 4.6 H (3.4-4.5) mmol/L ABG Ionized Calcium 3.7 L 3.6 L 3.7 L (4.5-5.3) mg/dL ABG Glucose 179 H 176 H 153 H (75-99) mg/dL Hemoglobin 7.2 L 6.1 L* 6.1 L* (13.0-17.5) gm/dL Sodium (137-145) mmol/L Potassium (3.5-5.1) mmol/L Chloride (98-107) mmol/L BUN (9-20) mg/dL Glucose (74-99) mg/dL POC Glucose (mg/dL) (75-99) mg/dL Calcium (8.4-10.2) mg/dL Ionized Calcium Gladis (4.5-5.3) mg/dL Magnesium (1.6-2.3) mg/dL AST (17-59) U/L Alkaline Phosphatase (38-126) U/L Total Protein (6.3-8.2) g/dL Albumin (3.5-5.0) g/dL Arterial Blood Potassium 4.8 H 4.6 H 4.6 H (3.4-4.5) mmol/L Arterial Blood Glucose 179 H 176 H 153 H (75-99) mg/dL Crossmatch 12/08/18 12/08/18 12/08/18 Range/Units 16:17 17:05 17:05 WBC 32.8 H (3.8-10.6) k/uL RBC 3.66 L (4.30-5.90) m/uL Hgb 9.8 L D (13.0-17.5) gm/dL Hct 29.7 L (39.0-53.0) % RDW (11.5-15.5) % Plt Count (150-450) k/uL Neutrophils # 29.1 H (1.3-7.7) k/uL Neutrophils # (Manual) (1.3-7.7) k/uL Lymphocytes # 0.9 L (1.0-4.8) k/uL Lymphocytes # (Manual) (1.0-4.8) k/uL Monocytes # 2.1 H (0-1.0) k/uL Metamyelocytes # (Man) (0) k/uL PT (9.0-12.0) sec INR (<1.2) APTT (22.0-30.0) sec ABG pH (7.35-7.45) ABG pCO2 (35-45) mmHg ABG pO2 149 H (83-108) mmHg ABG HCO3 (21-25) mmol/L ABG Total CO2 26 H (19-24) mmol/L ABG O2 Saturation 99.6 H (94-97) % ABG Hematocrit 26 L (34.0-46.0) % ABG Potassium 4.6 H (3.4-4.5) mmol/L ABG Ionized Calcium 4.0 L (4.5-5.3) mg/dL ABG Glucose 113 H (75-99) mg/dL Hemoglobin 8.5 L (13.0-17.5) gm/dL Sodium 136 L (137-145) mmol/L Potassium (3.5-5.1) mmol/L Chloride 108 H (98-107) mmol/L BUN 32 H (9-20) mg/dL Glucose 101 H (74-99) mg/dL POC Glucose (mg/dL) (75-99) mg/dL Calcium 7.0 L (8.4-10.2) mg/dL Ionized Calcium Gladis (4.5-5.3) mg/dL Magnesium 2.9 H (1.6-2.3) mg/dL AST 63 H (17-59) U/L Alkaline Phosphatase 35 L (38-126) U/L Total Protein 3.3 L (6.3-8.2) g/dL Albumin 1.8 L (3.5-5.0) g/dL Arterial Blood Potassium 4.6 H (3.4-4.5) mmol/L Arterial Blood Glucose 113 H (75-99) mg/dL Crossmatch 12/08/18 12/08/18 12/08/18 Range/Units 17:05 17:28 19:05 WBC (3.8-10.6) k/uL RBC (4.30-5.90) m/uL Hgb (13.0-17.5) gm/dL Hct (39.0-53.0) % RDW (11.5-15.5) % Plt Count (150-450) k/uL Neutrophils # (1.3-7.7) k/uL Neutrophils # (Manual) (1.3-7.7) k/uL Lymphocytes # (1.0-4.8) k/uL Lymphocytes # (Manual) (1.0-4.8) k/uL Monocytes # (0-1.0) k/uL Metamyelocytes # (Man) (0) k/uL PT 12.7 H (9.0-12.0) sec INR 1.2 H (<1.2) APTT 57.1 H (22.0-30.0) sec ABG pH (7.35-7.45) ABG pCO2 (35-45) mmHg ABG pO2 >400 H (83-108) mmHg ABG HCO3 (21-25) mmol/L ABG Total CO2 27 H (19-24) mmol/L ABG O2 Saturation 100.0 H (94-97) % ABG Hematocrit (34.0-46.0) % ABG Potassium (3.4-4.5) mmol/L ABG Ionized Calcium (4.5-5.3) mg/dL ABG Glucose (75-99) mg/dL Hemoglobin (13.0-17.5) gm/dL Sodium (137-145) mmol/L Potassium (3.5-5.1) mmol/L Chloride (98-107) mmol/L BUN (9-20) mg/dL Glucose (74-99) mg/dL POC Glucose (mg/dL) 113 H (75-99) mg/dL Calcium (8.4-10.2) mg/dL Ionized Calcium Gladis (4.5-5.3) mg/dL Magnesium (1.6-2.3) mg/dL AST (17-59) U/L Alkaline Phosphatase (38-126) U/L Total Protein (6.3-8.2) g/dL Albumin (3.5-5.0) g/dL Arterial Blood Potassium (3.4-4.5) mmol/L Arterial Blood Glucose (75-99) mg/dL Crossmatch 12/08/18 12/08/18 12/08/18 Range/Units 19:54 20:24 20:41 WBC 23.6 H (3.8-10.6) k/uL RBC 2.67 L (4.30-5.90) m/uL Hgb 7.5 L D (13.0-17.5) gm/dL Hct 21.8 L (39.0-53.0) % RDW (11.5-15.5) % Plt Count (150-450) k/uL Neutrophils # 22.4 H (1.3-7.7) k/uL Neutrophils # (Manual) (1.3-7.7) k/uL Lymphocytes # 0.3 L (1.0-4.8) k/uL Lymphocytes # (Manual) (1.0-4.8) k/uL Monocytes # (0-1.0) k/uL Metamyelocytes # (Man) (0) k/uL PT (9.0-12.0) sec INR (<1.2) APTT (22.0-30.0) sec ABG pH (7.35-7.45) ABG pCO2 (35-45) mmHg ABG pO2 (83-108) mmHg ABG HCO3 (21-25) mmol/L ABG Total CO2 (19-24) mmol/L ABG O2 Saturation (94-97) % ABG Hematocrit (34.0-46.0) % ABG Potassium (3.4-4.5) mmol/L ABG Ionized Calcium (4.5-5.3) mg/dL ABG Glucose (75-99) mg/dL Hemoglobin (13.0-17.5) gm/dL Sodium (137-145) mmol/L Potassium (3.5-5.1) mmol/L Chloride (98-107) mmol/L BUN (9-20) mg/dL Glucose (74-99) mg/dL POC Glucose (mg/dL) 117 H 111 H (75-99) mg/dL Calcium (8.4-10.2) mg/dL Ionized Calcium Gladis (4.5-5.3) mg/dL Magnesium (1.6-2.3) mg/dL AST (17-59) U/L Alkaline Phosphatase (38-126) U/L Total Protein (6.3-8.2) g/dL Albumin (3.5-5.0) g/dL Arterial Blood Potassium (3.4-4.5) mmol/L Arterial Blood Glucose (75-99) mg/dL Crossmatch 12/08/18 12/08/18 12/08/18 Range/Units 22:02 23:05 23:08 WBC 28.4 H (3.8-10.6) k/uL RBC 2.67 L (4.30-5.90) m/uL Hgb 7.3 L (13.0-17.5) gm/dL Hct 21.7 L (39.0-53.0) % RDW (11.5-15.5) % Plt Count (150-450) k/uL Neutrophils # (1.3-7.7) k/uL Neutrophils # (Manual) 26.90 H (1.3-7.7) k/uL Lymphocytes # (1.0-4.8) k/uL Lymphocytes # (Manual) 0.28 L (1.0-4.8) k/uL Monocytes # (0-1.0) k/uL Metamyelocytes # (Man) 0.28 H (0) k/uL PT (9.0-12.0) sec INR (<1.2) APTT (22.0-30.0) sec ABG pH (7.35-7.45) ABG pCO2 (35-45) mmHg ABG pO2 (83-108) mmHg ABG HCO3 (21-25) mmol/L ABG Total CO2 (19-24) mmol/L ABG O2 Saturation (94-97) % ABG Hematocrit (34.0-46.0) % ABG Potassium (3.4-4.5) mmol/L ABG Ionized Calcium (4.5-5.3) mg/dL ABG Glucose (75-99) mg/dL Hemoglobin (13.0-17.5) gm/dL Sodium (137-145) mmol/L Potassium (3.5-5.1) mmol/L Chloride (98-107) mmol/L BUN (9-20) mg/dL Glucose (74-99) mg/dL POC Glucose (mg/dL) 113 H 122 H (75-99) mg/dL Calcium (8.4-10.2) mg/dL Ionized Calcium Gladis (4.5-5.3) mg/dL Magnesium (1.6-2.3) mg/dL AST (17-59) U/L Alkaline Phosphatase (38-126) U/L Total Protein (6.3-8.2) g/dL Albumin (3.5-5.0) g/dL Arterial Blood Potassium (3.4-4.5) mmol/L Arterial Blood Glucose (75-99) mg/dL Crossmatch 12/09/18 12/09/18 12/09/18 Range/Units 00:27 01:28 02:32 WBC (3.8-10.6) k/uL RBC (4.30-5.90) m/uL Hgb (13.0-17.5) gm/dL Hct (39.0-53.0) % RDW (11.5-15.5) % Plt Count (150-450) k/uL Neutrophils # (1.3-7.7) k/uL Neutrophils # (Manual) (1.3-7.7) k/uL Lymphocytes # (1.0-4.8) k/uL Lymphocytes # (Manual) (1.0-4.8) k/uL Monocytes # (0-1.0) k/uL Metamyelocytes # (Man) (0) k/uL PT (9.0-12.0) sec INR (<1.2) APTT (22.0-30.0) sec ABG pH (7.35-7.45) ABG pCO2 (35-45) mmHg ABG pO2 (83-108) mmHg ABG HCO3 (21-25) mmol/L ABG Total CO2 (19-24) mmol/L ABG O2 Saturation (94-97) % ABG Hematocrit (34.0-46.0) % ABG Potassium (3.4-4.5) mmol/L ABG Ionized Calcium (4.5-5.3) mg/dL ABG Glucose (75-99) mg/dL Hemoglobin (13.0-17.5) gm/dL Sodium (137-145) mmol/L Potassium (3.5-5.1) mmol/L Chloride (98-107) mmol/L BUN (9-20) mg/dL Glucose (74-99) mg/dL POC Glucose (mg/dL) 135 H 129 H 136 H (75-99) mg/dL Calcium (8.4-10.2) mg/dL Ionized Calcium Gladis (4.5-5.3) mg/dL Magnesium (1.6-2.3) mg/dL AST (17-59) U/L Alkaline Phosphatase (38-126) U/L Total Protein (6.3-8.2) g/dL Albumin (3.5-5.0) g/dL Arterial Blood Potassium (3.4-4.5) mmol/L Arterial Blood Glucose (75-99) mg/dL Crossmatch 12/09/18 12/09/18 12/09/18 Range/Units 03:31 04:18 04:23 WBC (3.8-10.6) k/uL RBC (4.30-5.90) m/uL Hgb (13.0-17.5) gm/dL Hct (39.0-53.0) % RDW (11.5-15.5) % Plt Count (150-450) k/uL Neutrophils # (1.3-7.7) k/uL Neutrophils # (Manual) (1.3-7.7) k/uL Lymphocytes # (1.0-4.8) k/uL Lymphocytes # (Manual) (1.0-4.8) k/uL Monocytes # (0-1.0) k/uL Metamyelocytes # (Man) (0) k/uL PT (9.0-12.0) sec INR (<1.2) APTT (22.0-30.0) sec ABG pH (7.35-7.45) ABG pCO2 (35-45) mmHg ABG pO2 219 H (83-108) mmHg ABG HCO3 26 H (21-25) mmol/L ABG Total CO2 27 H (19-24) mmol/L ABG O2 Saturation 100.0 H (94-97) % ABG Hematocrit (34.0-46.0) % ABG Potassium (3.4-4.5) mmol/L ABG Ionized Calcium (4.5-5.3) mg/dL ABG Glucose (75-99) mg/dL Hemoglobin (13.0-17.5) gm/dL Sodium (137-145) mmol/L Potassium (3.5-5.1) mmol/L Chloride (98-107) mmol/L BUN (9-20) mg/dL Glucose (74-99) mg/dL POC Glucose (mg/dL) 118 H 141 H (75-99) mg/dL Calcium (8.4-10.2) mg/dL Ionized Calcium Gladis (4.5-5.3) mg/dL Magnesium (1.6-2.3) mg/dL AST (17-59) U/L Alkaline Phosphatase (38-126) U/L Total Protein (6.3-8.2) g/dL Albumin (3.5-5.0) g/dL Arterial Blood Potassium (3.4-4.5) mmol/L Arterial Blood Glucose (75-99) mg/dL Crossmatch 12/09/18 12/09/18 12/09/18 Range/Units 04:30 04:30 05:12 WBC 22.9 H (3.8-10.6) k/uL RBC 2.44 L (4.30-5.90) m/uL Hgb 6.8 L* (13.0-17.5) gm/dL Hct 20.0 L (39.0-53.0) % RDW (11.5-15.5) % Plt Count (150-450) k/uL Neutrophils # 21.3 H (1.3-7.7) k/uL Neutrophils # (Manual) (1.3-7.7) k/uL Lymphocytes # 0.3 L (1.0-4.8) k/uL Lymphocytes # (Manual) (1.0-4.8) k/uL Monocytes # 1.1 H (0-1.0) k/uL Metamyelocytes # (Man) (0) k/uL PT (9.0-12.0) sec INR (<1.2) APTT (22.0-30.0) sec ABG pH (7.35-7.45) ABG pCO2 (35-45) mmHg ABG pO2 (83-108) mmHg ABG HCO3 (21-25) mmol/L ABG Total CO2 (19-24) mmol/L ABG O2 Saturation (94-97) % ABG Hematocrit (34.0-46.0) % ABG Potassium (3.4-4.5) mmol/L ABG Ionized Calcium (4.5-5.3) mg/dL ABG Glucose (75-99) mg/dL Hemoglobin (13.0-17.5) gm/dL Sodium (137-145) mmol/L Potassium 5.3 H (3.5-5.1) mmol/L Chloride (98-107) mmol/L BUN 33 H (9-20) mg/dL Glucose 119 H (74-99) mg/dL POC Glucose (mg/dL) 146 H (75-99) mg/dL Calcium 7.0 L (8.4-10.2) mg/dL Ionized Calcium Gladis 4.3 L (4.5-5.3) mg/dL Magnesium 2.6 H (1.6-2.3) mg/dL AST (17-59) U/L Alkaline Phosphatase (38-126) U/L Total Protein 3.9 L (6.3-8.2) g/dL Albumin 2.3 L (3.5-5.0) g/dL Arterial Blood Potassium (3.4-4.5) mmol/L Arterial Blood Glucose (75-99) mg/dL Crossmatch 12/09/18 12/09/18 12/09/18 Range/Units 06:19 07:26 08:19 WBC (3.8-10.6) k/uL RBC (4.30-5.90) m/uL Hgb (13.0-17.5) gm/dL Hct (39.0-53.0) % RDW (11.5-15.5) % Plt Count (150-450) k/uL Neutrophils # (1.3-7.7) k/uL Neutrophils # (Manual) (1.3-7.7) k/uL Lymphocytes # (1.0-4.8) k/uL Lymphocytes # (Manual) (1.0-4.8) k/uL Monocytes # (0-1.0) k/uL Metamyelocytes # (Man) (0) k/uL PT (9.0-12.0) sec INR (<1.2) APTT (22.0-30.0) sec ABG pH (7.35-7.45) ABG pCO2 (35-45) mmHg ABG pO2 (83-108) mmHg ABG HCO3 (21-25) mmol/L ABG Total CO2 (19-24) mmol/L ABG O2 Saturation (94-97) % ABG Hematocrit (34.0-46.0) % ABG Potassium (3.4-4.5) mmol/L ABG Ionized Calcium (4.5-5.3) mg/dL ABG Glucose (75-99) mg/dL Hemoglobin (13.0-17.5) gm/dL Sodium (137-145) mmol/L Potassium (3.5-5.1) mmol/L Chloride (98-107) mmol/L BUN (9-20) mg/dL Glucose (74-99) mg/dL POC Glucose (mg/dL) 146 H 134 H 126 H (75-99) mg/dL Calcium (8.4-10.2) mg/dL Ionized Calcium Gladis (4.5-5.3) mg/dL Magnesium (1.6-2.3) mg/dL AST (17-59) U/L Alkaline Phosphatase (38-126) U/L Total Protein (6.3-8.2) g/dL Albumin (3.5-5.0) g/dL Arterial Blood Potassium (3.4-4.5) mmol/L Arterial Blood Glucose (75-99) mg/dL Crossmatch 12/09/18 12/09/18 12/09/18 Range/Units 09:04 09:32 10:12 WBC (3.8-10.6) k/uL RBC (4.30-5.90) m/uL Hgb (13.0-17.5) gm/dL Hct (39.0-53.0) % RDW (11.5-15.5) % Plt Count (150-450) k/uL Neutrophils # (1.3-7.7) k/uL Neutrophils # (Manual) (1.3-7.7) k/uL Lymphocytes # (1.0-4.8) k/uL Lymphocytes # (Manual) (1.0-4.8) k/uL Monocytes # (0-1.0) k/uL Metamyelocytes # (Man) (0) k/uL PT (9.0-12.0) sec INR (<1.2) APTT (22.0-30.0) sec ABG pH (7.35-7.45) ABG pCO2 (35-45) mmHg ABG pO2 185 H (83-108) mmHg ABG HCO3 26 H (21-25) mmol/L ABG Total CO2 27 H (19-24) mmol/L ABG O2 Saturation 100.0 H (94-97) % ABG Hematocrit (34.0-46.0) % ABG Potassium (3.4-4.5) mmol/L ABG Ionized Calcium (4.5-5.3) mg/dL ABG Glucose (75-99) mg/dL Hemoglobin (13.0-17.5) gm/dL Sodium (137-145) mmol/L Potassium (3.5-5.1) mmol/L Chloride (98-107) mmol/L BUN (9-20) mg/dL Glucose (74-99) mg/dL POC Glucose (mg/dL) 116 H 115 H (75-99) mg/dL Calcium (8.4-10.2) mg/dL Ionized Calcium Gladis (4.5-5.3) mg/dL Magnesium (1.6-2.3) mg/dL AST (17-59) U/L Alkaline Phosphatase (38-126) U/L Total Protein (6.3-8.2) g/dL Albumin (3.5-5.0) g/dL Arterial Blood Potassium (3.4-4.5) mmol/L Arterial Blood Glucose (75-99) mg/dL Crossmatch 12/09/18 12/09/18 12/09/18 Range/Units 11:01 12:05 12:56 WBC (3.8-10.6) k/uL RBC (4.30-5.90) m/uL Hgb (13.0-17.5) gm/dL Hct (39.0-53.0) % RDW (11.5-15.5) % Plt Count (150-450) k/uL Neutrophils # (1.3-7.7) k/uL Neutrophils # (Manual) (1.3-7.7) k/uL Lymphocytes # (1.0-4.8) k/uL Lymphocytes # (Manual) (1.0-4.8) k/uL Monocytes # (0-1.0) k/uL Metamyelocytes # (Man) (0) k/uL PT (9.0-12.0) sec INR (<1.2) APTT (22.0-30.0) sec ABG pH (7.35-7.45) ABG pCO2 (35-45) mmHg ABG pO2 (83-108) mmHg ABG HCO3 (21-25) mmol/L ABG Total CO2 (19-24) mmol/L ABG O2 Saturation (94-97) % ABG Hematocrit (34.0-46.0) % ABG Potassium (3.4-4.5) mmol/L ABG Ionized Calcium (4.5-5.3) mg/dL ABG Glucose (75-99) mg/dL Hemoglobin (13.0-17.5) gm/dL Sodium (137-145) mmol/L Potassium (3.5-5.1) mmol/L Chloride (98-107) mmol/L BUN (9-20) mg/dL Glucose (74-99) mg/dL POC Glucose (mg/dL) 112 H 100 H 101 H (75-99) mg/dL Calcium (8.4-10.2) mg/dL Ionized Calcium Gladis (4.5-5.3) mg/dL Magnesium (1.6-2.3) mg/dL AST (17-59) U/L Alkaline Phosphatase (38-126) U/L Total Protein (6.3-8.2) g/dL Albumin (3.5-5.0) g/dL Arterial Blood Potassium (3.4-4.5) mmol/L Arterial Blood Glucose (75-99) mg/dL Crossmatch 12/09/18 Range/Units 13:00 WBC 13.5 H (3.8-10.6) k/uL RBC 2.87 L (4.30-5.90) m/uL Hgb 7.7 L (13.0-17.5) gm/dL Hct 23.1 L (39.0-53.0) % RDW 15.8 H (11.5-15.5) % Plt Count 128 L (150-450) k/uL Neutrophils # 12.0 H (1.3-7.7) k/uL Neutrophils # (Manual) (1.3-7.7) k/uL Lymphocytes # 0.4 L (1.0-4.8) k/uL Lymphocytes # (Manual) (1.0-4.8) k/uL Monocytes # (0-1.0) k/uL Metamyelocytes # (Man) (0) k/uL PT (9.0-12.0) sec INR (<1.2) APTT (22.0-30.0) sec ABG pH (7.35-7.45) ABG pCO2 (35-45) mmHg ABG pO2 (83-108) mmHg ABG HCO3 (21-25) mmol/L ABG Total CO2 (19-24) mmol/L ABG O2 Saturation (94-97) % ABG Hematocrit (34.0-46.0) % ABG Potassium (3.4-4.5) mmol/L ABG Ionized Calcium (4.5-5.3) mg/dL ABG Glucose (75-99) mg/dL Hemoglobin (13.0-17.5) gm/dL Sodium (137-145) mmol/L Potassium (3.5-5.1) mmol/L Chloride (98-107) mmol/L BUN (9-20) mg/dL Glucose (74-99) mg/dL POC Glucose (mg/dL) (75-99) mg/dL Calcium (8.4-10.2) mg/dL Ionized Calcium Gladis (4.5-5.3) mg/dL Magnesium (1.6-2.3) mg/dL AST (17-59) U/L Alkaline Phosphatase (38-126) U/L Total Protein (6.3-8.2) g/dL Albumin (3.5-5.0) g/dL Arterial Blood Potassium (3.4-4.5) mmol/L Arterial Blood Glucose (75-99) mg/dL Crossmatch
[2018-12-09 14:13] LABS: Glucose,Whole Blood 113 mg/dL (75-99)
[2018-12-09 16:09] LABS: Glucose,Whole Blood 127 mg/dL (75-99)
[2018-12-09] MEDS: TRIAMCINOLONE ACET 0.1% OINTMENT 15 GM TUBE TOPICAL SCH ×2 (16:13→20:33)
[2018-12-09] MEDS: LACTATED RINGERS 1,000 ML IV SCH (16:13)
[2018-12-09] MEDS: ATORVASTATIN 40 MG TAB PO SCH (16:17)
[2018-12-09] MEDS ORDERED: MAGNESIUM HYDROXIDE 2,400 MG/10 ML CUP PO PRN (16:18)
[2018-12-09 18:06] LABS: Glucose,Whole Blood 114 mg/dL (75-99)
[2018-12-09] MEDS: CLEVIDIPINE BUTYRATE 25 MG in EMPTY BAG 1 BAG IV SCH (18:26)
[2018-12-09] MEDS: EPINEPHrine 4 MG in DEXTROSE 5% IN WATER 250 ML IV SCH ×2 (18:27)
[2018-12-09] MEDS: HYDROcodone/APAP 5-325MG 1 EACH TAB PO PRN (18:33)
[2018-12-09 20:16] LABS: Glucose,Whole Blood 136 mg/dL (75-99)
[2018-12-09] MEDS: METOPROLOL TARTRATE 12.5 MG TAB PO SCH (20:32)
[2018-12-09] MEDS: SENNOSIDES-DOCUSATE SODIUM 1 EACH TAB PO SCH (20:32)
[2018-12-09 22:30] LABS: Glucose,Whole Blood 150 mg/dL (75-99)
--- NOTE | 2018-12-09 23:34 | P.PN ---
Subjective Progress Note Date: 12/09/18 78-year-old male presents to hospital with increasing weakness and shortness of breath. Patient has a known history of multiple medical troubles that includes underlying coronary artery disease. The time of the presentation there is evidence of a subacute myocardial infarction and he has been treated for this. The patient has difficulties with bilateral lower extremity ulcerations present for about a year and a half. He is a and receives his care at [facility]. He probably was seen by welder/installer in several events but because of his [facility] status they could not treat him any further. He apply some local care to the legs but does not have ongoing follow-up with the [facility]. They suggested he go to dermatology in [place] but he will not drive to [facility]. He relates he ulcerations are not painful but he does have trouble trying to take care of them. He relates that his chest pain is improved. He has less shortness of breath. The edema to the legs has improved since coming to [facility]. He currently is denying fevers, chills or rigors. 12/05/2018 patient is with improved chest pain at this time. He has been seen by cardiovascular surgery and is being evaluated for potential cardiac revascularization given his significant multivessel disease. Ulcerations without pain to the lower extremity. 12/09/2018 status post heart attack revascularization the patient is stable at t his point in time. Sitting up in the chair and seems comfortable. Other than the pain he voices no acute difficulties. He is afebrile Objective - Vital Signs Vital signs: Vital Signs Temp 98.4 F 12/09/18 16:00 Pulse 89 12/09/18 22:00 Resp 14 12/09/18 22:00 BP 133/64 12/09/18 22:00 Pulse Ox 100 12/09/18 22:00 Intake & Output 12/09/18 12/09/18 12/10/18 06:59 18:59 06:59 Intake Total 5729.984 5544.031 136 Output Total 1343 1615 305 Balance 334.776 -401.969 -169 Weight 95.8 kg Intake: IV 959 418 116 ACETAMINOPHEN IV (For NPO 100 ) 1,000 mg In Empty Bag 1 bag @ 400 mls/hr IVPB Q6HR [facility] Rx#:[id number] Albumin Human 5% 250 ml 250 In Empty Bag 1 bag @ 250 mls/hr IVPB Q1HR PRN Rx#: [id number] CO/CI 290 110 20 HD pressure bags 99 108 36 Lactated Ringers 1,000 ml 220 200 @ 10 mls/hr IV .Q24H [facility] Rx#:[id number] Lactated Ringers 1,000 ml 60 @ 20 mls/hr IV .Q24H [facility] Rx#:[id number] Intake, IV Titration 158.776 395.031 20 Amount Calcium Gluconate 1 gm In 100 Sodium Chloride 0.9% 100 ml @ 100 mls/hr IVPB ONCE ONE Rx#:[id number] EPINEPHrine 4 mg In 109.060 57.190 Dextrose 5% in Water 250 ml @ 0.01 MCG/KG/MIN 3. 225 mls/hr IV .Q24H [facility] Rx#:[id number] Insulin Regular 100 unit 7.467 16.100 0 In Sodium Chloride 0.9% 100 ml @ Titrate IV .Q0M [facility] Rx#:[id number] Lactated Ringers 1,000 ml 20 40 20 @ 20 mls/hr IV .Q24H [facility] Rx#:[id number] Milrinone-D5w Pmx 20 mg 81.431 In Dextrose/Water 1 100ml .bag @ 0.375 MCG/KG/MIN 9 .675 mls/hr IV .[id number] [facility] Rx#:[id number] Nitroglycerin-D5w Pmx 50 20.975 mg In Dextrose/Water 1 250ml.bag @ 5 MCG/MIN 1.5 mls/hr IV .Q24H [facility] Rx#: [id number] Norepinephrine 4 mg In 5.651 Sodium Chloride 0.9% 250 ml @ Titrate IV .Q0M [facility] Rx#:[id number] Propofol 1,000 mg In 16.598 79.335 Empty Bag 1 bag @ Titrate IV .Q0M [facility] Rx#: [id number] Oral 90 Blood Product 560 310 Ffp 24 Cpd Unit 310 [id number] Rc Pheresis As-3 Unit 310 [id number] Output: Chest Tube Drainage 809 780 170 Left pleural 400 300 50 Mediastinal 99 130 60 Right Pleural 310 350 60 Drainage 60 110 Left Calf 30 40 Right Calf 30 70 Urine 474 725 135 Other: Voiding Method Indwelling Catheter Indwelling Catheter Indwelling Catheter ABP, PAP, CO, CI - Last Documented Arterial Blood Pressure 126/45 Pulmonary Artery Pressure 46/17 Cardiac Output 5.2 Cardiac Index 2.7 - Exam 78-year-old male who is comfortable denying chest pain HEENT: Anicteric conjunctiva are pink and moist nasal mucosa grossly intact without significant lesions, there is no thrush. Neck: The neck is supple without significant lymphadenopathy or thyromegaly. Lungs: Symmetrical air entry with basilar crackles no bronchial sounds no dullness or egophony Heart: Irregular with a loud S4 no new murmur click or rub the surgical incision is noted from the recent CABG without drainage Abdomen: Mildly obese, Positive bowel sounds soft and nontender without palpable masses or organomegaly. There was no guarding or rebound. Extremities: The upper extremities have excellent pulses they are symmetric, no significant petechiae or telangiectasia. No splinter hemorrhages were noted. Lower extremities reveal evidence of some chronic venous stasis Left leg does not have significant open ulcerations but does have chronic skin changes with dryness and plaques. Evidence the bilateral lower extremity wraps and drains in place for vein harvest Neuro: Awake alert oriented to person place and time. There are no acute new gross focal sensory motor deficits. - Labs CBC & Chem 7: 12/09/18 13:00 12/09/18 04:30 Labs: Abnormal Lab Results - Last 24 Hours (Table) 12/07/18 12/08/18 12/09/18 Range/Units 15:18 23:05 00:27 WBC 28.4 H (3.8-10.6) k/uL RBC 2.67 L (4.30-5.90) m/uL Hgb 7.3 L (13.0-17.5) gm/dL Hct 21.7 L (39.0-53.0) % RDW (11.5-15.5) % Plt Count (150-450) k/uL Neutrophils # (1.3-7.7) k/uL Neutrophils # (Manual) 26.90 H (1.3-7.7) k/uL Lymphocytes # (1.0-4.8) k/uL Lymphocytes # (Manual) 0.28 L (1.0-4.8) k/uL Monocytes # (0-1.0) k/uL Metamyelocytes # (Man) 0.28 H (0) k/uL ABG pO2 (83-108) mmHg ABG HCO3 (21-25) mmol/L ABG Total CO2 (19-24) mmol/L ABG O2 Saturation (94-97) % Potassium (3.5-5.1) mmol/L BUN (9-20) mg/dL Glucose (74-99) mg/dL POC Glucose (mg/dL) 135 H (75-99) mg/dL Calcium (8.4-10.2) mg/dL Ionized Calcium Gladis (4.5-5.3) mg/dL Magnesium (1.6-2.3) mg/dL Total Protein (6.3-8.2) g/dL Albumin (3.5-5.0) g/dL Crossmatch See Detail 12/09/18 12/09/18 12/09/18 Range/Units 01:28 02:32 03:31 WBC (3.8-10.6) k/uL RBC (4.30-5.90) m/uL Hgb (13.0-17.5) gm/dL Hct (39.0-53.0) % RDW (11.5-15.5) % Plt Count (150-450) k/uL Neutrophils # (1.3-7.7) k/uL Neutrophils # (Manual) (1.3-7.7) k/uL Lymphocytes # (1.0-4.8) k/uL Lymphocytes # (Manual) (1.0-4.8) k/uL Monocytes # (0-1.0) k/uL Metamyelocytes # (Man) (0) k/uL ABG pO2 (83-108) mmHg ABG HCO3 (21-25) mmol/L ABG Total CO2 (19-24) mmol/L ABG O2 Saturation (94-97) % Potassium (3.5-5.1) mmol/L BUN (9-20) mg/dL Glucose (74-99) mg/dL POC Glucose (mg/dL) 129 H 136 H 118 H (75-99) mg/dL Calcium (8.4-10.2) mg/dL Ionized Calcium Gladis (4.5-5.3) mg/dL Magnesium (1.6-2.3) mg/dL Total Protein (6.3-8.2) g/dL Albumin (3.5-5.0) g/dL Crossmatch 12/09/18 12/09/18 12/09/18 Range/Units 04:18 04:23 04:30 WBC 22.9 H (3.8-10.6) k/uL RBC 2.44 L (4.30-5.90) m/uL Hgb 6.8 L* (13.0-17.5) gm/dL Hct 20.0 L (39.0-53.0) % RDW (11.5-15.5) % Plt Count (150-450) k/uL Neutrophils # 21.3 H (1.3-7.7) k/uL Neutrophils # (Manual) (1.3-7.7) k/uL Lymphocytes # 0.3 L (1.0-4.8) k/uL Lymphocytes # (Manual) (1.0-4.8) k/uL Monocytes # 1.1 H (0-1.0) k/uL Metamyelocytes # (Man) (0) k/uL ABG pO2 219 H (83-108) mmHg ABG HCO3 26 H (21-25) mmol/L ABG Total CO2 27 H (19-24) mmol/L ABG O2 Saturation 100.0 H (94-97) % Potassium (3.5-5.1) mmol/L BUN (9-20) mg/dL Glucose (74-99) mg/dL POC Glucose (mg/dL) 141 H (75-99) mg/dL Calcium (8.4-10.2) mg/dL Ionized Calcium Gladis (4.5-5.3) mg/dL Magnesium (1.6-2.3) mg/dL Total Protein (6.3-8.2) g/dL Albumin (3.5-5.0) g/dL Crossmatch 12/09/18 12/09/18 12/09/18 Range/Units 04:30 05:12 06:19 WBC (3.8-10.6) k/uL RBC (4.30-5.90) m/uL Hgb (13.0-17.5) gm/dL Hct (39.0-53.0) % RDW (11.5-15.5) % Plt Count (150-450) k/uL Neutrophils # (1.3-7.7) k/uL Neutrophils # (Manual) (1.3-7.7) k/uL Lymphocytes # (1.0-4.8) k/uL Lymphocytes # (Manual) (1.0-4.8) k/uL Monocytes # (0-1.0) k/uL Metamyelocytes # (Man) (0) k/uL ABG pO2 (83-108) mmHg ABG HCO3 (21-25) mmol/L ABG Total CO2 (19-24) mmol/L ABG O2 Saturation (94-97) % Potassium 5.3 H (3.5-5.1) mmol/L BUN 33 H (9-20) mg/dL Glucose 119 H (74-99) mg/dL POC Glucose (mg/dL) 146 H 146 H (75-99) mg/dL Calcium 7.0 L (8.4-10.2) mg/dL Ionized Calcium Gladis 4.3 L (4.5-5.3) mg/dL Magnesium 2.6 H (1.6-2.3) mg/dL Total Protein 3.9 L (6.3-8.2) g/dL Albumin 2.3 L (3.5-5.0) g/dL Crossmatch 12/09/18 12/09/18 12/09/18 Range/Units 07:26 08:19 09:04 WBC (3.8-10.6) k/uL RBC (4.30-5.90) m/uL Hgb (13.0-17.5) gm/dL Hct (39.0-53.0) % RDW (11.5-15.5) % Plt Count (150-450) k/uL Neutrophils # (1.3-7.7) k/uL Neutrophils # (Manual) (1.3-7.7) k/uL Lymphocytes # (1.0-4.8) k/uL Lymphocytes # (Manual) (1.0-4.8) k/uL Monocytes # (0-1.0) k/uL Metamyelocytes # (Man) (0) k/uL ABG pO2 (83-108) mmHg ABG HCO3 (21-25) mmol/L ABG Total CO2 (19-24) mmol/L ABG O2 Saturation (94-97) % Potassium (3.5-5.1) mmol/L BUN (9-20) mg/dL Glucose (74-99) mg/dL POC Glucose (mg/dL) 134 H 126 H 116 H (75-99) mg/dL Calcium (8.4-10.2) mg/dL Ionized Calcium Gladis (4.5-5.3) mg/dL Magnesium (1.6-2.3) mg/dL Total Protein (6.3-8.2) g/dL Albumin (3.5-5.0) g/dL Crossmatch 12/09/18 12/09/18 12/09/18 Range/Units 09:32 10:12 11:01 WBC (3.8-10.6) k/uL RBC (4.30-5.90) m/uL Hgb (13.0-17.5) gm/dL Hct (39.0-53.0) % RDW (11.5-15.5) % Plt Count (150-450) k/uL Neutrophils # (1.3-7.7) k/uL Neutrophils # (Manual) (1.3-7.7) k/uL Lymphocytes # (1.0-4.8) k/uL Lymphocytes # (Manual) (1.0-4.8) k/uL Monocytes # (0-1.0) k/uL Metamyelocytes # (Man) (0) k/uL ABG pO2 185 H (83-108) mmHg ABG HCO3 26 H (21-25) mmol/L ABG Total CO2 27 H (19-24) mmol/L ABG O2 Saturation 100.0 H (94-97) % Potassium (3.5-5.1) mmol/L BUN (9-20) mg/dL Glucose (74-99) mg/dL POC Glucose (mg/dL) 115 H 112 H (75-99) mg/dL Calcium (8.4-10.2) mg/dL Ionized Calcium Gladis (4.5-5.3) mg/dL Magnesium (1.6-2.3) mg/dL Total Protein (6.3-8.2) g/dL Albumin (3.5-5.0) g/dL Crossmatch 12/09/18 12/09/18 12/09/18 Range/Units 12:05 12:56 13:00 WBC 13.5 H (3.8-10.6) k/uL RBC 2.87 L (4.30-5.90) m/uL Hgb 7.7 L (13.0-17.5) gm/dL Hct 23.1 L (39.0-53.0) % RDW 15.8 H (11.5-15.5) % Plt Count 128 L (150-450) k/uL Neutrophils # 12.0 H (1.3-7.7) k/uL Neutrophils # (Manual) (1.3-7.7) k/uL Lymphocytes # 0.4 L (1.0-4.8) k/uL Lymphocytes # (Manual) (1.0-4.8) k/uL Monocytes # (0-1.0) k/uL Metamyelocytes # (Man) (0) k/uL ABG pO2 (83-108) mmHg ABG HCO3 (21-25) mmol/L ABG Total CO2 (19-24) mmol/L ABG O2 Saturation (94-97) % Potassium (3.5-5.1) mmol/L BUN (9-20) mg/dL Glucose (74-99) mg/dL POC Glucose (mg/dL) 100 H 101 H (75-99) mg/dL Calcium (8.4-10.2) mg/dL Ionized Calcium Gladis (4.5-5.3) mg/dL Magnesium (1.6-2.3) mg/dL Total Protein (6.3-8.2) g/dL Albumin (3.5-5.0) g/dL Crossmatch 12/09/18 12/09/18 12/09/18 Range/Units 14:11 16:08 18:05 WBC (3.8-10.6) k/uL RBC (4.30-5.90) m/uL Hgb (13.0-17.5) gm/dL Hct (39.0-53.0) % RDW (11.5-15.5) % Plt Count (150-450) k/uL Neutrophils # (1.3-7.7) k/uL Neutrophils # (Manual) (1.3-7.7) k/uL Lymphocytes # (1.0-4.8) k/uL Lymphocytes # (Manual) (1.0-4.8) k/uL Monocytes # (0-1.0) k/uL Metamyelocytes # (Man) (0) k/uL ABG pO2 (83-108) mmHg ABG HCO3 (21-25) mmol/L ABG Total CO2 (19-24) mmol/L ABG O2 Saturation (94-97) % Potassium (3.5-5.1) mmol/L BUN (9-20) mg/dL Glucose (74-99) mg/dL POC Glucose (mg/dL) 113 H 127 H 114 H (75-99) mg/dL Calcium (8.4-10.2) mg/dL Ionized Calcium Gladis (4.5-5.3) mg/dL Magnesium (1.6-2.3) mg/dL Total Protein (6.3-8.2) g/dL Albumin (3.5-5.0) g/dL Crossmatch 12/09/18 12/09/18 Range/Units 20:15 22:29 WBC (3.8-10.6) k/uL RBC (4.30-5.90) m/uL Hgb (13.0-17.5) gm/dL Hct (39.0-53.0) % RDW (11.5-15.5) % Plt Count (150-450) k/uL Neutrophils # (1.3-7.7) k/uL Neutrophils # (Manual) (1.3-7.7) k/uL Lymphocytes # (1.0-4.8) k/uL Lymphocytes # (Manual) (1.0-4.8) k/uL Monocytes # (0-1.0) k/uL Metamyelocytes # (Man) (0) k/uL ABG pO2 (83-108) mmHg ABG HCO3 (21-25) mmol/L ABG Total CO2 (19-24) mmol/L ABG O2 Saturation (94-97) % Potassium (3.5-5.1) mmol/L BUN (9-20) mg/dL Glucose (74-99) mg/dL POC Glucose (mg/dL) 136 H 150 H (75-99) mg/dL Calcium (8.4-10.2) mg/dL Ionized Calcium Gladis (4.5-5.3) mg/dL Magnesium (1.6-2.3) mg/dL Total Protein (6.3-8.2) g/dL Albumin (3.5-5.0) g/dL Crossmatch Laboratory Results WBC 13.5 k/uL (3.8-10.6) H 12/09/18 13:00 RBC 2.87 m/uL (4.30-5.90) L 12/09/18 13:00 Hgb 7.7 gm/dL (13.0-17.5) L 12/09/18 13:00 Hct 23.1 % (39.0-53.0) L 12/09/18 13:00 MCV 80.6 fL (80.0-100.0) 12/09/18 13:00 MCH 26.9 pg (25.0-35.0) 12/09/18 13:00 MCHC 33.3 g/dL (31.0-37.0) 12/09/18 13:00 RDW 15.8 % (11.5-15.5) H 12/09/18 13:00 Plt Count 128 k/uL (150-450) L 12/09/18 13:00 Neutrophils % 89 % 12/09/18 13:00 Neutrophils % (Manual) 79 % 12/08/18 23:05 Band Neutrophils % 16 % 12/08/18 23:05 Lymphocytes % 3 % 12/09/18 13:00 Lymphocytes % (Manual) 1 % 12/08/18 23:05 Monocytes % 6 % 12/09/18 13:00 Monocytes % (Manual) 3 % 12/08/18 23:05 Eosinophils % 1 % 12/09/18 13:00 Basophils % 0 % 12/09/18 13:00 Metamyelocytes % 1 % 12/08/18 23:05 Neutrophils # 12.0 k/uL (1.3-7.7) H 12/09/18 13:00 Neutrophils # (Manual) 26.90 k/uL (1.3-7.7) H 12/08/18 23:05 Lymphocytes # 0.4 k/uL (1.0-4.8) L 12/09/18 13:00 Lymphocytes # (Manual) 0.28 k/uL (1.0-4.8) L 12/08/18 23:05 Monocytes # 0.8 k/uL (0-1.0) 12/09/18 13:00 Monocytes # (Manual) 0.85 k/uL (0-1.0) 12/08/18 23:05 Eosinophils # 0.1 k/uL (0-0.7) 12/09/18 13:00 Basophils # 0.0 k/uL (0-0.2) 12/09/18 13:00 Metamyelocytes # (Man) 0.28 k/uL (0) H 12/08/18 23:05 Nucleated RBCs 0 /100 WBC (0-0) 12/08/18 23:05 Manual Slide Review Performed 12/08/18 23:05 Polychromasia Present 12/08/18 23:05 Hypochromasia Moderate 12/05/18 14:03 Poikilocytosis Slight 12/09/18 13:00 Poikilocytosis (manual Present 12/08/18 23:05 PT 12.7 sec (9.0-12.0) H 12/08/18 17:05 INR 1.2 (<1.2) H 12/08/18 17:05 APTT 57.1 sec (22.0-30.0) H 12/08/18 17:05 Fibrinogen 234 mg/dL (200-500) 12/08/18 17:05 Sample Site [place] 12/09/18 09:32 ABG pH 7.42 (7.35-7.45) 12/09/18 09:32 ABG pCO2 39 mmHg (35-45) 12/09/18 09:32 ABG pO2 185 mmHg (83-108) H 12/09/18 09:32 ABG HCO3 26 mmol/L (21-25) H 12/09/18 09:32 ABG Total CO2 27 mmol/L (19-24) H 12/09/18 09:32 ABG O2 Saturation 100.0 % (94-97) H 12/09/18 09:32 ABG Base Excess 1.0 mmol/L 12/09/18 09:32 ABG Hematocrit 26 % (34.0-46.0) L 12/08/18 16:17 Carlos Test Yes 12/09/18 09:32 ABG Sodium 137 mmol/L (135-146) 12/08/18 16:17 ABG Potassium 4.6 mmol/L (3.4-4.5) H 12/08/18 16:17 ABG Ionized Calcium 4.0 mg/dL (4.5-5.3) L 12/08/18 16:17 ABG Glucose 113 mg/dL (75-99) H 12/08/18 16:17 ABG Lactic Acid 1.4 mmol/L (0.5-1.6) 12/08/18 16:17 Hemoglobin 8.5 gm/dL (13.0-17.5) L 12/08/18 16:17 FiO2 40 % 12/09/18 09:32 Sodium 138 mmol/L (137-145) 12/09/18 04:30 Potassium 5.3 mmol/L (3.5-5.1) H 12/09/18 04:30 Chloride 106 mmol/L (98-107) 12/09/18 04:30 Carbon Dioxide 26 mmol/L (22-30) 12/09/18 04:30 Anion Gap 6 mmol/L 12/09/18 04:30 BUN 33 mg/dL (9-20) H 12/09/18 04:30 Creatinine 1.17 mg/dL (0.66-1.25) 12/09/18 04:30 Est GFR (CKD-EPI)AfAm 70 (>60 ml/min/1.73 sqM) 12/09/18 04:30 Est GFR (CKD-EPI)NonAf 60 (>60 ml/min/1.73 sqM) 12/09/18 04:30 Glucose 119 mg/dL (74-99) H 12/09/18 04:30 POC Glucose (mg/dL) 150 mg/dL (75-99) H 12/09/18 22:29 POC Glu [employer] ZAHEER Dalia Bhardwaj 12/09/18 22:[address] Glu mg/dL 177 12/01/18 05:38 Hemoglobin A1c 7.8 % (4.0-6.0) H 12/01/18 05:38 Plasma Lactic Acid Gutierrez 1.8 mmol/L (0.7-2.0) 11/30/18 16:08 Calcium 7.0 mg/dL (8.4-10.2) L 12/09/18 04:30 Ionized Calcium Gladis 4.3 mg/dL (4.5-5.3) L 12/09/18 04:30 Phosphorus 4.8 mg/dL (2.5-4.5) H 12/02/18 04:36 Magnesium 2.6 mg/dL (1.6-2.3) H 12/09/18 04:30 Total Bilirubin 0.4 mg/dL (0.2-1.3) 12/09/18 04:30 AST 53 U/L (17-59) 12/09/18 04:30 ALT 41 U/L (21-72) 12/09/18 04:30 Alkaline Phosphatase 45 U/L (38-126) 12/09/18 04:30 Creatine Kinase 257 U/L (55-170) H 11/30/18 11:56 CK-MB (CK-2) 23.5 ng/mL (0.0-2.4) H 11/30/18 11:56 Troponin I 20.200 ng/mL (0.000-0.034) H* 12/01/18 05:38 NT-Pro-B Natriuret Pep 29201 pg/mL 11/30/18 11:56 Total Protein 3.9 g/dL (6.3-8.2) L 12/09/18 04:30 Albumin 2.3 g/dL (3.5-5.0) L 12/09/18 04:30 Triglycerides 145 mg/dL (<150) 12/05/18 14:03 Cholesterol 177 mg/dL (<200) 12/05/18 14:03 LDL Cholesterol, Calc 104 mg/dL (0-99) H 12/05/18 14:03 HDL Cholesterol 44 mg/dL (40-60) 12/05/18 14:03 TSH 0.419 mIU/L (0.465-4.680) L 12/05/18 14:03 Free T4 1.42 ng/dL (0.78-2.19) 12/05/18 14:03 Arterial Blood Potassium 4.6 mmol/L (3.4-4.5) H 12/08/18 16:17 Arterial Blood Glucose 113 mg/dL (75-99) H 12/08/18 16:17 Urine Color Yellow 12/06/18 06:15 Urine Appearance Turbid (Clear) 12/06/18 06:15 Urine pH 5.5 (5.0-8.0) 12/06/18 06:15 Ur Specific [place] 1.020 (1.001-1.035) 12/06/18 06:15 Urine Protein 2+ (Negative) H 12/06/18 06:15 Urine Glucose (UA) Negative (Negative) 12/06/18 06:15 Urine Ketones Negative (Negative) 12/06/18 06:15 Urine Blood Moderate (Negative) H 12/06/18 06:15 Urine Nitrite Negative (Negative) 12/06/18 06:15 Urine Bilirubin Negative (Negative) 12/06/18 06:15 Urine Urobilinogen <2.0 mg/dL (<2.0) 12/06/18 06:15 Ur Leukocyte Esterase Moderate (Negative) H 12/06/18 06:15 Urine RBC 123 /hpf (0-5) H 12/06/18 06:15 Urine WBC 26 /hpf (0-5) H 12/06/18 06:15 Ur Squamous Epith Cells 1 /hpf (0-4) 12/06/18 06:15 Triple Phos Crystals Few /hpf (None) H 12/06/18 06:15 Amorphous Sediment Occasional /hpf (None) H 12/06/18 06:15 Urine Bacteria Rare /hpf (None) H 12/06/18 06:15 Hyaline Casts 6 /lpf (0-2) H 12/06/18 06:15 Urine Mucus Many /hpf (None) H 12/06/18 06:15 Fluid Source Pleural 12/01/18 10:45 Fluid Color Yellow 12/01/18 10:45 Fluid Appearance Clear 12/01/18 10:45 Fluid RBC 445 /uL 12/01/18 10:45 Fluid Nucleated Cells 55 /uL 12/01/18 10:45 Fluid Polynuclear WBCs 5 % 12/01/18 10:45 Fluid Mononuclear WBCs 95 % 12/01/18 10:45 Body Fluid Glucose Source Pleural Fluid 12/01/18 10:45 Fluid Glucose 215 mg/dL 12/01/18 10:45 Body Fluid Protein Source Pleural Fluid 12/01/18 10:45 Fluid Total Protein 1862 mg/dL 12/01/18 10:45 Body Fluid LDH Source Pleural Fluid 12/01/18 10:45 Fluid LDH 101 U/L 12/01/18 10:45 Hepatitis A IgM Ab Non-Reactive (Non-Reactive) 12/05/18 14:03 Hep Bs Antigen Non-Reactive (Non-Reactive) 12/05/18 14:03 Hep B Core IgM Ab Non-Reactive (Non-Reactive) 12/05/18 14:03 Hep C IgG Ab Non-Reactive (Non-Reactive) 12/05/18 14:03 Influenza Type A RNA Not Detected (Not Detectd) 11/30/18 12:12 Influenza Type B (PCR) Not Detected (Not Detectd) 11/30/18 12:12 Blood Type O Positive 12/07/18 15:18 Blood Type Confirm O Positive 12/07/18 06:51 Blood Type Recheck CABO Indicated 12/07/18 15:18 Antibody Screen NEGATIVE 12/07/18 15:18 Crossmatch See Detail 12/07/18 15:18 Transfuse Plasma 12/08/2018 12/08/18 17:05 Transfuse Platelets 12/08/18 17:05 Spec Expiration Date 12/10/2018 - 2318 12/07/18 15:18 Microbiology 12/06/18 06:15 Urine,Catheterized Urine Culture - Final 12/05/18 17:00 Nasal Swab Nasal Screen MRSA/MSSA - Final 11/30/18 11:56 Blood Blood Culture - Final No Growth after 144 hours 12/01/18 10:45 Pleural Fluid Gram Stain - Final 12/01/18 10:45 Pleural Fluid Body Fluid Culture - Final Assessment and Plan (1) Myocardial infarction Current Visit: Yes Status: Acute Code(s): I21.9 - ACUTE MYOCARDIAL INFARCTION, UNSPECIFIED SNOMED Code(s): 57719372 (2) Acute systolic (congestive) heart failure Current Visit: Yes Status: Acute Code(s): I50.21 - ACUTE SYSTOLIC (CONGESTIVE) HEART FAILURE SNOMED Code(s): 352620855 (3) Congestive heart failure Current Visit: Yes Status: Acute Code(s): I50.9 - HEART FAILURE, UNSPECIFIED SNOMED Code(s): 52719314 (4) Venous stasis ulcer of right lower leg with edema of right lower leg Narrative/Plan: 78-year-old male that has a history of multiple medical troubles with known coronary artery disease who presents to Hospital feeling poorly. Evidence of a subacute myocardial infarction. Is being treated by cardiology with medication changes is feeling better. There is evidence of a right pleural effusion and this was tapped without evidence of any significant empyema or infection in that site. 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 Due to his [facility] was no longer able to see the welder/installer. He does not want to drive to [place] to see dermatology. This time he appears to have some chronic skin changes the lower extremities and constantly to the plaque-like areas the topical triamcinolone will be applied. The open ulceration hydrogel dressing is applied. This can be applied twice a day and then rolled gauze and Gianni wrap should be applied temp of lower extremity edema. Elevation of the limbs at rest will be helpful. If possible would be happy to see him in the wound healing center [facility] after his discharge. The ulceration does not appear to be infected. 12/05/2018 patient has not been seen by cardiovascular surgery and there are plans for potential cardiac revascularization. Wounds are being treated as above with the triamcinolone and hydrogel dressing. No evidence of empyema Chest pain is improved at this point in time. Cardiac catheterization was performed today revealing evidence of the multivessel disease and interventions potentially as above. Echocardiogram does reveal evidence of impaired left ventricular function. 12/09/2018 status post cardiovascular revascularization patient is sitting up in the chair and stable. Continue local wound care to the prior ulceration. No evidence of any sepsis at this time. Current Visit: Yes Status: Acute Code(s): I83.019 - VARICOSE VEINS OF RIGHT LOWER EXTREMITY W ULCER OF UNSP SITE; I83.891 - VARICOSE VEINS OF R LOW EXTREM WITH OTHER COMPLICATIONS; L97.919 - NON-PRS CHRONIC ULC UNSP PRT OF R LOW LEG W UNSP SEVERITY; R60.9 - EDEMA, UNSPECIFIED SNOMED Code(s): 66998538129046192
[2018-12-09 23:56] LABS: Glucose,Whole Blood 143 mg/dL (75-99)
[2018-12-10] MEDS: HEPARIN SODIUM,PORCINE 5,000 UNIT/ML 1 ML VIAL SQ SCH ×3 (00:45→17:39)
[2018-12-10 01:55] LABS: Glucose,Whole Blood 127 mg/dL (75-99)
[2018-12-10 04:26] LABS: Glucose,Whole Blood 101 mg/dL (75-99)
[2018-12-10 04:42] LABS: Anisocytosis Slight; Basophils % (A) 0 %; Eosinophils % (A) 0 %; HCT 22.6 % (39.0-53.0); HGB 7.6 gm/dL (13.0-17.5); Lymphocytes # (A) 0.5 k/uL (1.0-4.8); Lymphocytes % (A) 3 %; MCH 26.8 pg (25.0-35.0); MCHC 33.6 g/dL (31.0-37.0); MCV 79.8 fL (80.0-100.0); Mean Platelet Volume 9.6; Monocytes # (A) 0.8 k/uL (0-1.0); Monocytes % (A) 5 %; Neutrophils # (A) 13.7 k/uL (1.3-7.7); Neutrophils % (A) 91 %; Platelet Count 118 k/uL (150-450); Poikilocytosis Slight; RBC 2.83 m/uL (4.30-5.90); RDW 16.9 % (11.5-15.5); WBC 15.1 k/uL (3.8-10.6)
[2018-12-10 05:04] LABS: Ionized Calcium 4.6 mg/dL (4.5-5.3)
[2018-12-10 05:16] LABS: Albumin 2.1 g/dL (3.5-5.0); Calcium 7.4 mg/dL (8.4-10.2); Potassium 4.6 mmol/L (3.5-5.1); Total Bilirubin 0.2 mg/dL (0.2-1.3); Total Protein 3.9 g/dL (6.3-8.2)
[2018-12-10] MEDS: HYDROcodone/APAP 5-325MG 1 EACH TAB PO PRN (06:11)
[2018-12-10 06:22] LABS: Glucose,Whole Blood 117 mg/dL (75-99)
--- NOTE | 2018-12-10 06:48 | XR ---
EXAMINATION TYPE: XR chest 1V portable DATE OF EXAM: 12/10/2018 HISTORY: Post Operative Cardiac Surgery. REFERENCE: Previous study dated 12/09/2018. FINDINGS: There has been a midline sternotomy. The patient has been extubated. The patient is NG tube is been removed. A Epps-Iraida catheter remains in place via a right internal jugular approach. Its ti p is in the pulmonary outflow tract. A left pleural drain remains in place. There is bibasilar atelectasis. There is a small left effusion. The heart is enlarged. IMPRESSION: CONTINUING POSTOPERATIVE CHANGE.
[2018-12-10] MEDS: IPRATROPIUM-ALBUTEROL 3 ML NEB INHALATION SCH ×4 (08:00→19:57)
[2018-12-10] MEDS: PANTOPRAZOLE 40 MG TABLET PO SCH (08:39)
[2018-12-10] MEDS: hydrALAZINE HCL 25 MG TAB PO SCH ×3 (08:39→17:42)
[2018-12-10] MEDS: METOPROLOL TARTRATE 12.5 MG TAB PO SCH ×2 (08:40→20:50)
[2018-12-10] MEDS: ASPIRIN 325 MG TAB PO SCH (08:40)
[2018-12-10] MEDS: ATORVASTATIN 40 MG TAB PO SCH (08:40)
[2018-12-10] MEDS: CLOPIDOGREL 75 MG TAB PO SCH (08:40)
--- NOTE | 2018-12-10 08:48 | P.PN ---
Subjective Progress Note Date: 12/10/18 Principal diagnosis: Severe triple vessel coronary artery disease, non-STEMI, acute on chronic systolic and diastolic heart failure with ejection fraction 40-45%, moderate left ventricular dysfunction with mild to moderate mitral valve regurgitation, right-sided pleural effusion status post thoracentesis with removal of 900 mL transudative fluid. 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 Preoperative leukocytosis, acute renal failure. POD #2 urgent quadruple coronary artery bypass grafting using the left internal mammary artery to the left anterior descending artery, reverse saphenous vein graft from the aorta to the first diagonal artery, reverse saphenous vein graft from the aorta to the first obtuse marginal artery, reverse saphenous vein graft from the aorta to the distal posterior lateral branch of the circumflex artery which is a dominant artery, bilateral pulmonary vein isolation using the radiofrequency bipolar clamp from [employer], intraoperative exclusion of the left atrial appendage using a 40 mm AtriClip, intraoperative transesophageal echocardiogram and epi-aortic scanning, and intraoperative graft flow m easurements using the [employer] system, endoscopic harvesting of bilateral saphenous veins from the groin to the knee level. Postoperative acute blood loss anemia, expected outcome of surgery given he modilution and cardiopulmonary bypass pump. The patient's currently sitting up recliner in no acute distress in the intensive care unit eating breakfast. Successfully extubated yesterday morning at 9:48 a.m. Denies any pain or shortness of breath. Remains in normal sinus rhythm, hemodynamically stable on 0.375 mcg/kg/m of Primacor. He received 1 unit packed red blood cells yesterday with improvement in hemoglobin. Objective - Vital Signs Vital signs: Vital Signs Temp 98.4 F 12/09/18 16:00 Pulse 88 12/10/18 08:11 Resp 16 12/10/18 06:00 BP 133/64 12/10/18 06:00 Pulse Ox 99 12/10/18 06:00 Intake & Output 12/09/18 12/10/18 12/10/18 18:59 06:59 18:59 Intake Total 1213.031 527.880 29 Output Total 1615 960 80 Balance -401.969 -432.120 -51 Weight 96.5 kg Intake: IV 418 388 29 0.9 NACL 20 CO/CI 110 60 HD pressure bags 108 108 9 Lactated Ringers 1,000 ml 200 @ 10 mls/hr IV .Q24H [facility]ARL Rx#:[id number] Lactated Ringers 1,000 ml 200 20 @ 20 mls/hr IV .Q24H [facility]ARL Rx#:[id number] Intake, IV Titration 395.031 89.880 Amount Calcium Gluconate 1 gm In 100 Sodium Chloride 0.9% 100 ml @ 100 mls/hr IVPB ONCE ONE Rx#:[id number] EPINEPHrine 4 mg In 57.190 Dextrose 5% in Water 250 ml @ 0.01 MCG/KG/MIN 3. 225 mls/hr IV .Q24H PEARL Rx#:[id number] Insulin Regular 100 unit 16.100 9.250 In Sodium Chloride 0.9% 100 ml @ Titrate IV .Q0M PEARL Rx#:[id number] Lactated Ringers 1,000 ml 40 20 @ 20 mls/hr IV .Q24H [facility] Rx#:[id number] Milrinone-D5w Pmx 20 mg 81.431 60.63 In Dextrose/Water 1 100ml .bag @ 0.2 MCG/KG/MIN 5. 16 mls/hr IV .[id number] PEARL Rx#:[id number] Nitroglycerin-D5w Pmx 50 20.975 mg In Dextrose/Water 1 250ml.bag @ 5 MCG/MIN 1.5 mls/hr IV .Q24H [facility] Rx#: [id number] Propofol 1,000 mg In 79.335 Empty Bag 1 bag @ Titrate IV .Q0M PEARL Rx#: [id number] Oral 90 50 Blood Product 310 Rc Pheresis As-3 Unit 310 [id number] Output: Chest Tube Drainage 780 470 Left pleural 300 80 Mediastinal 130 110 Right Pleural 350 280 Drainage 110 80 Left Calf 40 40 Right Calf 70 40 Urine 725 490 0 Other: Voiding Method Indwelling Catheter Indwelling Catheter ABP, PAP, CO, CI - Last Documented Arterial Blood Pressure 110/47 Pulmonary Artery Pressure 42/18 Cardiac Output 5.7 Cardiac Index 3.7 - Constitutional General appearance: Present: cooperative, no acute distress, obese - Respiratory Details: Lungs sounds diminished bilaterally. Respirations even, nonlabored. Currently on room air with oxygen saturation 95%. Barely able to achieve 500 mL on his incentive spirometry. Weak cough. Mediastinal chest tube to continuous wall suction, 50 mL serous drainage overnight, 250 mL in the last 24 hours. Left pleural chest tube to continuous wall suction, 30 mL serous drainage overnight, 350 mL in the last 24 hours. Right pleural chest tube to continuous wall suction, 220 mL serous drainage overnight, 600 mL in the last 24 hours. No air leak present. - Cardiovascular Details: S1, S2 present. Regular rate and rhythm, normal sinus rhythm on telemetry. Sternum stable. A/V epicardial pacemaker wires present, grounded. Palpable bilateral upper extremity pulses present, Doppler bilateral lower extremity pulses. Generalized edema present. Right internal jugular [place], right brachial arterial line present. Last CO/CI 5.2/2.7 on 0.375 mcg/kg/min of Primacor. Heart hugger in place with patient unable to demonstrate appropriate use. SCDs, antiembolism stockings present. - Gastrointestinal Gastrointestinal Comment(s): Abdomen soft, nontender, nondistended, obese. Active bowel sounds present 4 quadrants. Tolerating diet. Positive flatus, negative bowel movement. - Genitourinary Genitourinary Comment(s): Torres present draining clear, yellow urine. Urine output overnight 25-75 mL/hr. - Integumentary Integumentary Comment(s): Skin is warm and dry with evidence of good perfusion. Anterior chest incision well approximated covered with dry intact dressing. Bilateral lower extremity EVH site well approximated, FREDIS drains present with minimal drainage. - Neurologic Neurologic: Present: CNII-XII intact - Musculoskeletal Musculoskeletal: Present: generalized weakness, strength equal bilaterally - Psychiatric Psychiatric: Present: A&O x's 3, appropriate affect, intact judgment & insight - Allied health notes Allied health notes reviewed: nursing - Labs CBC & Chem 7: 12/10/18 04:25 12/10/18 04:25 Labs: Abnormal Lab Results - Last 24 Hours (Table) 12/07/18 12/09/18 12/09/18 Range/Units 15:18 09:04 09:32 WBC (3.8-10.6) k/uL RBC (4.30-5.90) m/uL Hgb (13.0-17.5) gm/dL Hct (39.0-53.0) % MCV (80.0-100.0) fL RDW (11.5-15.5) % Plt Count (150-450) k/uL Neutrophils # (1.3-7.7) k/uL Lymphocytes # (1.0-4.8) k/uL ABG pO2 185 H (83-108) mmHg ABG HCO3 26 H (21-25) mmol/L ABG Total CO2 27 H (19-24) mmol/L ABG O2 Saturation 100.0 H (94-97) % Sodium (137-145) mmol/L BUN (9-20) mg/dL Creatinine (0.66-1.25) mg/dL POC Glucose (mg/dL) 116 H (75-99) mg/dL Calcium (8.4-10.2) mg/dL Total Protein (6.3-8.2) g/dL Albumin (3.5-5.0) g/dL Crossmatch See Detail 12/09/18 12/09/18 12/09/18 Range/Units 10:12 11:01 12:05 WBC (3.8-10.6) k/uL RBC (4.30-5.90) m/uL Hgb (13.0-17.5) gm/dL Hct (39.0-53.0) % MCV (80.0-100.0) fL RDW (11.5-15.5) % Plt Count (150-450) k/uL Neutrophils # (1.3-7.7) k/uL Lymphocytes # (1.0-4.8) k/uL ABG pO2 (83-108) mmHg ABG HCO3 (21-25) mmol/L ABG Total CO2 (19-24) mmol/L ABG O2 Saturation (94-97) % Sodium (137-145) mmol/L BUN (9-20) mg/dL Creatinine (0.66-1.25) mg/dL POC Glucose (mg/dL) 115 H 112 H 100 H (75-99) mg/dL Calcium (8.4-10.2) mg/dL Total Protein (6.3-8.2) g/dL Albumin (3.5-5.0) g/dL Crossmatch 12/09/18 12/09/18 12/09/18 Range/Units 12:56 13:00 14:11 WBC 13.5 H (3.8-10.6) k/uL RBC 2.87 L (4.30-5.90) m/uL Hgb 7.7 L (13.0-17.5) gm/dL Hct 23.1 L (39.0-53.0) % MCV (80.0-100.0) fL RDW 15.8 H (11.5-15.5) % Plt Count 128 L (150-450) k/uL Neutrophils # 12.0 H (1.3-7.7) k/uL Lymphocytes # 0.4 L (1.0-4.8) k/uL ABG pO2 (83-108) mmHg ABG HCO3 (21-25) mmol/L ABG Total CO2 (19-24) mmol/L ABG O2 Saturation (94-97) % Sodium (137-145) mmol/L BUN (9-20) mg/dL Creatinine (0.66-1.25) mg/dL POC Glucose (mg/dL) 101 H 113 H (75-99) mg/dL Calcium (8.4-10.2) mg/dL Total Protein (6.3-8.2) g/dL Albumin (3.5-5.0) g/dL Crossmatch 12/09/18 12/09/18 12/09/18 Range/Units 16:08 18:05 20:15 WBC (3.8-10.6) k/uL RBC (4.30-5.90) m/uL Hgb (13.0-17.5) gm/dL Hct (39.0-53.0) % MCV (80.0-100.0) fL RDW (11.5-15.5) % Plt Count (150-450) k/uL Neutrophils # (1.3-7.7) k/uL Lymphocytes # (1.0-4.8) k/uL ABG pO2 (83-108) mmHg ABG HCO3 (21-25) mmol/L ABG Total CO2 (19-24) mmol/L ABG O2 Saturation (94-97) % Sodium (137-145) mmol/L BUN (9-20) mg/dL Creatinine (0.66-1.25) mg/dL POC Glucose (mg/dL) 127 H 114 H 136 H (75-99) mg/dL Calcium (8.4-10.2) mg/dL Total Protein (6.3-8.2) g/dL Albumin (3.5-5.0) g/dL Crossmatch 12/09/18 12/09/18 12/10/18 Range/Units 22:29 23:55 01:53 WBC (3.8-10.6) k/uL RBC (4.30-5.90) m/uL Hgb (13.0-17.5) gm/dL Hct (39.0-53.0) % MCV (80.0-100.0) fL RDW (11.5-15.5) % Plt Count (150-450) k/uL Neutrophils # (1.3-7.7) k/uL Lymphocytes # (1.0-4.8) k/uL ABG pO2 (83-108) mmHg ABG HCO3 (21-25) mmol/L ABG Total CO2 (19-24) mmol/L ABG O2 Saturation (94-97) % Sodium (137-145) mmol/L BUN (9-20) mg/dL Creatinine (0.66-1.25) mg/dL POC Glucose (mg/dL) 150 H 143 H 127 H (75-99) mg/dL Calcium (8.4-10.2) mg/dL Total Protein (6.3-8.2) g/dL Albumin (3.5-5.0) g/dL Crossmatch 12/10/18 12/10/18 12/10/18 Range/Units 04:24 04:25 04:25 WBC 15.1 H (3.8-10.6) k/uL RBC 2.83 L (4.30-5.90) m/uL Hgb 7.6 L (13.0-17.5) gm/dL Hct 22.6 L (39.0-53.0) % MCV 79.8 L (80.0-100.0) fL RDW 16.9 H (11.5-15.5) % Plt Count 118 L (150-450) k/uL Neutrophils # 13.7 H (1.3-7.7) k/uL Lymphocytes # 0.5 L (1.0-4.8) k/uL ABG pO2 (83-108) mmHg ABG HCO3 (21-25) mmol/L ABG Total CO2 (19-24) mmol/L ABG O2 Saturation (94-97) % Sodium 136 L (137-145) mmol/L BUN 41 H (9-20) mg/dL Creatinine 1.44 H (0.66-1.25) mg/dL POC Glucose (mg/dL) 101 H (75-99) mg/dL Calcium 7.4 L (8.4-10.2) mg/dL Total Protein 3.9 L (6.3-8.2) g/dL Albumin 2.1 L (3.5-5.0) g/dL Crossmatch 12/10/18 Range/Units 06:20 WBC (3.8-10.6) k/uL RBC (4.30-5.90) m/uL Hgb (13.0-17.5) gm/dL Hct (39.0-53.0) % MCV (80.0-100.0) fL RDW (11.5-15.5) % Plt Count (150-450) k/uL Neutrophils # (1.3-7.7) k/uL Lymphocytes # (1.0-4.8) k/uL ABG pO2 (83-108) mmHg ABG HCO3 (21-25) mmol/L ABG Total CO2 (19-24) mmol/L ABG O2 Saturation (94-97) % Sodium (137-145) mmol/L BUN (9-20) mg/dL Creatinine (0.66-1.25) mg/dL POC Glucose (mg/dL) 117 H (75-99) mg/dL Calcium (8.4-10.2) mg/dL Total Protein (6.3-8.2) g/dL Albumin (3.5-5.0) g/dL Crossmatch - Imaging and Cardiology Chest x-ray: report reviewed, image reviewed Assessment and Plan Assessment: 1. Severe triple-vessel coronary artery disease, non-STEMI, status post CABG 4 2. Acute on chronic systolic and diastolic heart failure with ejection fraction 40-45% 3. Moderate left ventricular dysfunction with mild to moderate mitral valve regurgitation 4. Right-sided pleural effusion status post thoracentesis with removal of 900 mL transudate of fluid 5. Leukocytosis 6. Acute renal failure, resolving 7. History of coronary artery disease with previous stents to the LAD in 2004, evidence of remote lateral wall myocardial infarction 8. Recent diagnosis of atrial flutter status post cardioversion on Eliquis for chronic for anticoagulation 9. Hypertension 10. Hyperlipidemia 11. Uncontrolled diabetes mellitus with hemoglobin A1c 7.8% 12. 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 Peripheral artery disease 14. Chronic venous stasis ulcers to his right lower extremity 15. Prostate disorder 16. Postoperative acute blood loss anemia, status post transfusion 1 unit packed red blood cells Plan: 1. Continue aspirin, statin, Plavix, beta alfred therapy. Will increase beta alfred therapy as tolerated. Will add in hydralazine for afterload reduction. Decrease Primacor to 0.2 mcg/kg/m. 2. Will add amiodarone for A. fib prophylaxis. 3. Bronchodilators per pulmonology. 4. No Lasix today. Will keep Torres catheter for 1 more day for strict accurate intake and output. 5. Encourage incentive spirometry 10 times every hour while awake. 6. Increase activity as tolerated. PT/OT/cardiac rehab following. 7. Will monitor daily labs and x-rays. Electro replacement per protocol. No further transfusion. 8. Pain control with current medication regimen. 9. Insulin management per primary care service. 10. GI/DVT prophylaxis with Protonix and heparin, SCDs. 11. Venous stasis ulcer wound care per Dr. Eldridge. 12. More recommendations based on patient's clinical course. Time with Patient: Greater than 30
[2018-12-10] MEDS: TRIAMCINOLONE ACET 0.1% OINTMENT 15 GM TUBE TOPICAL SCH ×2 (09:00→20:47)
[2018-12-10] MEDS ORDERED: AMIODARONE 200 MG TAB PO SCH (09:00)
[2018-12-10] MEDS: MUPIROCIN 2% OINT 22 GM TUBE NASAL SCH ×2 (09:00→20:46)
--- NOTE | 2018-12-10 10:32 | PN ---
PROGRESS NOTE DATE OF SERVICE: 12/10/2018 This is a 78-year-old gentleman who is postop day #2, status post 4-vessel bypass grafting. The patient was extubated about 6 hours and 12 minutes after leaving the operating room. Currently doing relatively well. He has been weaned down to room air. He is still on Primacor 0.2 mcg/kg per minute. He is getting lactated Ringer's at 20 mL an hour. His insulin has been turned off. He is doing okay. He has not really doing so great with his incentive spirometer. We encouraged him to take deep breaths, cough and clear secretions. We also expect him the use incentive spirometer q.1 hour while awake. Chest x-ray looks pretty good. Some atelectasis at the left lung base. He has no major complaints today. PHYSICAL EXAMINATION: Current vital signs are reviewed. His temperature is 98.3, heart rate 88, respiratory rate 21, blood pressure 115/41. His CVP is 11 and his saturations on room air are 97%. He appears in no acute distress. HEENT examination is grossly unremarkable. No supplemental oxygen. Neck is supple. Full range of motion. No adenopathy, thyromegaly or neck vein distention. Cardiovascular examination reveals regular rhythm and rate. Heart rate 88 beats per minute. S1, S2 normal. No S3, S4, or murmur. Lungs are relatively clear. There is a few scattered rhonchi. No wheezes or crackles. He does not take deep breaths. Abdomen is soft. Bowel sounds are heard. Extremities are intact. No cyanosis, clubbing, or edema. Skin without rash. Neurologic examination is brief but nonfocal. LABORATORY STUDIES: White count 15.1, hemoglobin 7.6, hematocrit 22.6, platelet count 118,000. Sodium 136, potassium 4.6, chloride 106, CO2 is 26, anion gap is 4, BUN and creatinine were 41 and 1.44. Albumin 2.1. Microbiology is negative. Chest x-ray shows some postsurgical changes at the left lung base. Medications are reviewed. ASSESSMENT: 1. Postoperative day #2, status post 4-vessel bypass grafting for multivessel coronary artery disease. 2. Routine postoperative ventilator management, resolved. 3. Postoperative anemia. 4. Status post subacute inferior/posterior myocardial infarction. 5. Acute heart failure secondary to myocardial infarction with an ejection fraction of 40% to 45%. 6. Type 2 diabetes mellitus. 7. Hypertension. 8. History of hyperlipidemia. 9. History of atrial flutter, status post previous cardioversion August 2018. 10.History of coronary artery disease with previous PCI. 11.Status post right-sided thoracentesis showing a transudative effusion consistent with congestive heart failure. PLAN: The patient is still on Primacor 0.2 mcg/kg per minute. He is getting lactated Ringer's 20 mL an hour. Insulin has been weaned off. He has been weaned off of oxygen. We encourage him to take deep breaths. We will also encourage him to use the incentive spirometer q.1 hour. Will continue to follow. Prognosis is guarded. Additional recommendations and suggestions are forthcoming. MMODL / IJN: [id number] /
[2018-12-10] MEDS: INSULIN ASPART (NovoLOG) 100 UNIT/ML VIAL SQ SCH ×3 (12:19→20:45)
[2018-12-10 12:20] LABS: Glucose,Whole Blood 218 mg/dL (75-99)
--- NOTE | 2018-12-10 13:29 | P.PN ---
Subjective Patient has been extubated. He is doing very well. When the chest tube was being pulled today he became bradycardia but after that he has not had any bradycardia episodes. His blood pressure normal heart rates are normal His hemoglobin is between 7.5 and 8. He did have a lot of bleeding intraoperatively and received 1 unit of packed red cells On examination blood pressure is 128/43 mmHg pulse rate is in the 80s respirations 20 Breath sounds are reduced bilaterally Heart sounds. Soft Abdomen soft and tender Patient is alert and oriented and is in good spirits Impression Coronary artery disease line history of acute TX Status post coronary artery Paps grafting and Maze procedure and left atrial appendectomy Left ventricular ejection fraction 40-45% Suggest Continue current medications during aspirin atorvastatin he is also on hydra lazine and metoprolol I would consider switching from a combination of hydralazine and metoprolol to carvedilol in the future Objective - Vital Signs Vital signs: Vital Signs Temp 98.3 F 12/10/18 08:00 Pulse 90 12/10/18 12:26 Resp 15 12/10/18 11:00 BP 133/64 12/10/18 06:00 Pulse Ox 95 12/10/18 11:00 Intake & Output 12/09/18 12/10/18 12/10/18 18:59 06:59 18:59 Intake Total 1213.031 527.880 165 Output Total 1615 960 80 Balance -401.969 -432.120 85 Weight 96.5 kg Intake: IV 418 388 165 0.9 NACL 20 CO/CI 110 60 20 HD pressure bags 108 108 45 Lactated Ringers 1,000 ml 200 @ 10 mls/hr IV .Q24H [facility] Rx#:[id number] Lactated Ringers 1,000 ml 200 100 @ 20 mls/hr IV .Q24H [facility] Rx#:[id number] Intake, IV Titration 395.031 89.880 Amount Calcium Gluconate 1 gm In 100 Sodium Chloride 0.9% 100 ml @ 100 mls/hr IVPB ONCE ONE Rx#:[id number] EPINEPHrine 4 mg In 57.190 Dextrose 5% in Water 250 ml @ 0.01 MCG/KG/MIN 3. 225 mls/hr IV .Q24H [facility]ARL Rx#:[id number] Insulin Regular 100 unit 16.100 9.250 In Sodium Chloride 0.9% 100 ml @ Titrate IV .Q0M [facility]L Rx#:[id number] Lactated Ringers 1,000 ml 40 20 @ 20 mls/hr IV .Q24H [facility] Rx#:[id number] Milrinone-D5w Pmx 20 mg 81.431 60.63 In Dextrose/Water 1 100ml .bag @ 0.2 MCG/KG/MIN 5. 16 mls/hr IV .[id number] PEARL Rx#:[id number] Nitroglycerin-D5w Pmx 50 20.975 mg In Dextrose/Water 1 250ml.bag @ 5 MCG/MIN 1.5 mls/hr IV .Q24H [facility] Rx#: [id number] Propofol 1,000 mg In 79.335 Empty Bag 1 bag @ Titrate IV .Q0M [facility]L Rx#: [id number] Oral 90 50 Blood Product 310 Rc Pheresis As-3 Unit 310 [id number] Output: Chest Tube Drainage 780 470 Left pleural 300 80 Mediastinal 130 110 Right Pleural 350 280 Drainage 110 80 Left Calf 40 40 Right Calf 70 40 Urine 725 490 0 Other: Voiding Method Indwelling Catheter Indwelling Catheter ABP, PAP, CO, CI - Last Documented Arterial Blood Pressure 128/43 Pulmonary Artery Pressure 54/18 Cardiac Output 6.5 Cardiac Index 3.6 - Labs CBC & Chem 7: 12/10/18 04:25 12/10/18 04:25 Labs: Abnormal Lab Results - Last 24 Hours (Table) 12/07/18 12/09/18 12/09/18 Range/Units 15:18 14:11 16:08 WBC (3.8-10.6) k/uL RBC (4.30-5.90) m/uL Hgb (13.0-17.5) gm/dL Hct (39.0-53.0) % MCV (80.0-100.0) fL RDW (11.5-15.5) % Plt Count (150-450) k/uL Neutrophils # (1.3-7.7) k/uL Lymphocytes # (1.0-4.8) k/uL Sodium (137-145) mmol/L BUN (9-20) mg/dL Creatinine (0.66-1.25) mg/dL POC Glucose (mg/dL) 113 H 127 H (75-99) mg/dL Calcium (8.4-10.2) mg/dL Total Protein (6.3-8.2) g/dL Albumin (3.5-5.0) g/dL Crossmatch See Detail 12/09/18 12/09/18 12/09/18 Range/Units 18:05 20:15 22:29 WBC (3.8-10.6) k/uL RBC (4.30-5.90) m/uL Hgb (13.0-17.5) gm/dL Hct (39.0-53.0) % MCV (80.0-100.0) fL RDW (11.5-15.5) % Plt Count (150-450) k/uL Neutrophils # (1.3-7.7) k/uL Lymphocytes # (1.0-4.8) k/uL Sodium (137-145) mmol/L BUN (9-20) mg/dL Creatinine (0.66-1.25) mg/dL POC Glucose (mg/dL) 114 H 136 H 150 H (75-99) mg/dL Calcium (8.4-10.2) mg/dL Total Protein (6.3-8.2) g/dL Albumin (3.5-5.0) g/dL Crossmatch 12/09/18 12/10/18 12/10/18 Range/Units 23:55 01:53 04:24 WBC (3.8-10.6) k/uL RBC (4.30-5.90) m/uL Hgb (13.0-17.5) gm/dL Hct (39.0-53.0) % MCV (80.0-100.0) fL RDW (11.5-15.5) % Plt Count (150-450) k/uL Neutrophils # (1.3-7.7) k/uL Lymphocytes # (1.0-4.8) k/uL Sodium (137-145) mmol/L BUN (9-20) mg/dL Creatinine (0.66-1.25) mg/dL POC Glucose (mg/dL) 143 H 127 H 101 H (75-99) mg/dL Calcium (8.4-10.2) mg/dL Total Protein (6.3-8.2) g/dL Albumin (3.5-5.0) g/dL Crossmatch 12/10/18 12/10/18 12/10/18 Range/Units 04:25 04:25 06:20 WBC 15.1 H (3.8-10.6) k/uL RBC 2.83 L (4.30-5.90) m/uL Hgb 7.6 L (13.0-17.5) gm/dL Hct 22.6 L (39.0-53.0) % MCV 79.8 L (80.0-100.0) fL RDW 16.9 H (11.5-15.5) % Plt Count 118 L (150-450) k/uL Neutrophils # 13.7 H (1.3-7.7) k/uL Lymphocytes # 0.5 L (1.0-4.8) k/uL Sodium 136 L (137-145) mmol/L BUN 41 H (9-20) mg/dL Creatinine 1.44 H (0.66-1.25) mg/dL POC Glucose (mg/dL) 117 H (75-99) mg/dL Calcium 7.4 L (8.4-10.2) mg/dL Total Protein 3.9 L (6.3-8.2) g/dL Albumin 2.1 L (3.5-5.0) g/dL Crossmatch 12/10/18 Range/Units 11:59 WBC (3.8-10.6) k/uL RBC (4.30-5.90) m/uL Hgb (13.0-17.5) gm/dL Hct (39.0-53.0) % MCV (80.0-100.0) fL RDW (11.5-15.5) % Plt Count (150-450) k/uL Neutrophils # (1.3-7.7) k/uL Lymphocytes # (1.0-4.8) k/uL Sodium (137-145) mmol/L BUN (9-20) mg/dL Creatinine (0.66-1.25) mg/dL POC Glucose (mg/dL) 218 H (75-99) mg/dL Calcium (8.4-10.2) mg/dL Total Protein (6.3-8.2) g/dL Albumin (3.5-5.0) g/dL Crossmatch
[2018-12-10 17:11] LABS: Glucose,Whole Blood 312 mg/dL (75-99)
[2018-12-10 17:11] LABS: Glucose,Whole Blood 315 mg/dL (75-99)
[2018-12-10] MEDS: LACTATED RINGERS 1,000 ML IV SCH (17:39)
[2018-12-10] MEDS: MILRINONE-D5W PMX 20 MG in DEXTROSE/WATER 1 100ML.BAG IV SCH (17:39)
[2018-12-10 20:39] LABS: Glucose,Whole Blood 331 mg/dL (75-99)
[2018-12-10] MEDS: INSULIN NPH 300 UNIT/3 ML VIAL SQ SCH (20:45)
[2018-12-10] MEDS: SENNOSIDES-DOCUSATE SODIUM 1 EACH TAB PO SCH (20:46)
[2018-12-10] MEDS ORDERED: INSULIN DETEMIR (LEVEMIR) 100 UNIT/ML SYR SQ SCH (21:00)
--- NOTE | 2018-12-10 22:20 | PN ---
PROGRESS NOTE DATE OF SERVICE: 12/09/2018 This 78-year-old gentleman who was admitted with elevated troponins, non ST elevation myocardial infarction. The patient also has CHF exacerbation also. The patient underwent a cardiac catheterization and subsequently 4 vessel bypass grafting. The patient is mechanically ventilated and Dr. Bull is following the patient closely. The patient also has history of diabetes mellitus. The patient has insulin drip 2 units/hour. Patient being closely monitored. PAST MEDICAL HISTORY: Reviewed. REVIEW OF SYSTEMS: CARDIOVASCULAR: S1, S2 muffled. RESPIRATORY: As mentioned earlier. GI as mentioned earlier. : As mentioned earlier. CENTRAL NERVOUS SYSTEM: No weakness or numbness. CURRENT MEDICATIONS: 1. Tylenol p.r.n. 2. Wilson 5 mg. 3. DuoNeb q.i.d. and p.r.n. 4. Lipitor. 5. Cepacol. 7. Heparin subcu q8. 8. Apresoline. 9. Levemir 15 subcu q.h.s. 10.Reglan. 11.Lopressor. 12.Protonix. 13.Kenalog. PHYSICAL EXAM: Patient is alert, oriented x3. The pulse is 87. Blood pressure 103/42, respirations 16, temp is normal. Pulse ox 100 percent on 2 L nasal cannula. HEENT: Conjunctivae normal. NECK: No jugular venous distention. CARDIOVASCULAR: S1, S2. RESPIRATORY: Breath sounds diminished in the bases. Scattered rhonchi and crackles. Expiratory wheezing. ABDOMEN: Soft, nontender. Legs are no edema. No swelling. CENTRAL NERVOUS SYSTEM: Diffusely weak. LABS: Reviewed and include WBC 20.2. Hemoglobin 6.8, sodium 130, potassium 5.3. ASSESSMENT: 1. Coronary artery disease, coronary artery bypass grafting. 2. Acute non-ST segment elevation myocardial infarction, present on admission. 3. Acute on chronic congestive heart failure acute exacerbation. 4. History of coronary artery disease. 5. History of congestive heart failure. 6. History of atrial fibrillation. 7. Diabetes mellitus type 2. 8. Hyperlipidemia. RECOMMENDATIONS AND DISCUSSION: Recommend to continue current management, continue with monitoring, symptomatic treatment. Otherwise, at this time, I recommend continue the insulin drip and also the patient is taking p.o. three shot regimen may be initiated. Otherwise, continue the incentive spirometry. Continue bronchodilators. Continue rest of medications. Repeat labs. Closely follow with multiple consultants. Monitor closely in the ICU. Further recommendations to follow. MMODL / IJN: [id number] / [id number]
--- NOTE | 2018-12-10 22:44 | PN ---
PROGRESS NOTE DATE OF SERVICE: 12/10/2018. DATE OF SERVICE: This 78-year-old gentleman with acute non ST-elevation myocardial infarction had a 4- vessel bypass. The patient was extubated. Patient is being closely monitored. Blood sugars controlled by insulin. No chest pain. No palpitations. No fever. Multiple consultants are following the patient closely. PHYSICAL EXAM: Alert and oriented x3. The pulse is 81, blood pressure 128/43, respirations 16, temperature is normal, pulse ox 95% on 5 L. HEENT: Normal. Oral mucosa moist. NECK: No jugular venous distention. No lymph node enlargement. CARDIOVASCULAR: S1 and S2 muffled. LUNGS: Breath sounds decreased at the bases. Scattered rhonchi and crackles. ABDOMEN: Soft, nontender. No mass palpable. EXTREMITIES: Legs no edema. No swelling. LABS: WBC ntd , hemoglobin 7.2, sodium 136. ASSESSMENT: 1. Status post CAD with CABG, 4-vessel bypass. 2. History of acute non-ST elevation myocardial infarction. 3. Diabetes mellitus type 2. 4. Congestive heart failure acute exacerbation acute on chronic. 5. Less likely pneumonia. 6. History of CAD. 7. History of CHF. 8. History of atrial ablation. 9. Diabetes mellitus type 2. 10.Hyperlipidemia. RECOMMENDATIONS AND DISCUSSION: This 78-year-old gentleman presented with multiple complex medical issues. We will monitor the patient closely. Continue the current management and symptomatic treatment at this time. I would closely monitor with multiple consultants. Monitor blood sugars closely. The patient was apparently taking metformin and glipizide and NPH also. Guarded prognosis. MMODL / IJN: [id number] / SAIDA
[2018-12-11 00:13] LABS: ABG HCO3 24 mmol/L (21-25); ABG Oxygen Saturation 97.2 % (94-97); ABG PCO2 36 mmHg (35-45); ABG PH 7.44 (7.35-7.45); ABG PO2 84 mmHg (83-108); ABG TCO2 25 mmol/L (19-24)
[2018-12-11] MEDS: hydrALAZINE HCL 25 MG TAB PO SCH ×3 (00:42→19:25)
[2018-12-11] MEDS: HEPARIN SODIUM,PORCINE 5,000 UNIT/ML 1 ML VIAL SQ SCH ×3 (00:42→19:25)
[2018-12-11 01:31] LABS: Glucose,Whole Blood 221 mg/dL (75-99)
[2018-12-11 04:37] LABS: Anisocytosis Slight; Basophils % (A) 0 %; Eosinophils # (A) 0.1 k/uL (0-0.7); Eosinophils % (A) 0 %; HCT 22.5 % (39.0-53.0); HGB 7.5 gm/dL (13.0-17.5); Lymphocytes # (A) 0.5 k/uL (1.0-4.8); Lymphocytes % (A) 3 %; MCH 26.8 pg (25.0-35.0); MCHC 33.6 g/dL (31.0-37.0); MCV 79.8 fL (80.0-100.0); Mean Platelet Volume 10.4; Monocytes # (A) 0.8 k/uL (0-1.0); Monocytes % (A) 5 %; Neutrophils # (A) 16.3 k/uL (1.3-7.7); Neutrophils % (A) 92 %; Platelet Count 124 k/uL (150-450); Poikilocytosis Slight; RBC 2.82 m/uL (4.30-5.90); RDW 17.2 % (11.5-15.5); WBC 17.8 k/uL (3.8-10.6)
[2018-12-11 04:45] LABS: Albumin 2.2 g/dL (3.5-5.0); Calcium 7.6 mg/dL (8.4-10.2); Magnesium 2.9 mg/dL (1.6-2.3); Potassium 4.7 mmol/L (3.5-5.1); Total Bilirubin 0.3 mg/dL (0.2-1.3); Total Protein 4.2 g/dL (6.3-8.2)
--- NOTE | 2018-12-11 06:16 | XR ---
EXAMINATION TYPE: XR chest 1V portable DATE OF EXAM: 12/11/2018 HISTORY: post cardiac surgery. REFERENCE: Previous study dated 12/10/2018. FINDINGS: There has been a midline sternotomy. A [place]Ira[place] catheter is in place via a right internal jugular approach. Its tip is in the right main pulmonary artery. Bilateral chest tubes are in place. The heart remains enlarged. There is minimal bibasilar airspace disease. There are small, bilateral e ffusions. IMPRESSION: CONTINUING POSTOPERATIVE CHANGE.
[2018-12-11] MEDS: MILRINONE-D5W PMX 20 MG in DEXTROSE/WATER 1 100ML.BAG IV SCH (06:37)
[2018-12-11 07:02] LABS: Glucose,Whole Blood 118 mg/dL (75-99)
[2018-12-11] MEDS: INSULIN ASPART (NovoLOG) 100 UNIT/ML VIAL SQ SCH ×4 (07:03→20:22)
[2018-12-11] MEDS: PANTOPRAZOLE 40 MG TABLET PO SCH (07:06)
[2018-12-11] MEDS: IPRATROPIUM-ALBUTEROL 3 ML NEB INHALATION SCH ×4 (07:07→20:30)
[2018-12-11] MEDS: ASPIRIN 325 MG TAB PO SCH (07:52)
[2018-12-11] MEDS: METOPROLOL TARTRATE 12.5 MG TAB PO SCH ×2 (07:52→21:00)
[2018-12-11] MEDS: CLOPIDOGREL 75 MG TAB PO SCH (07:53)
[2018-12-11] MEDS: ATORVASTATIN 40 MG TAB PO SCH (07:53)
[2018-12-11] MEDS: HYDROcodone/APAP 5-325MG 1 EACH TAB PO PRN ×2 (07:53→22:41)
[2018-12-11] MEDS: MUPIROCIN 2% OINT 22 GM TUBE NASAL SCH ×2 (07:54→21:00)
[2018-12-11] MEDS: INSULIN NPH 300 UNIT/3 ML VIAL SQ SCH ×2 (07:54→20:59)
--- NOTE | 2018-12-11 09:21 | PN ---
PROGRESS NOTE DATE OF SERVICE: 12/11/2018 This is a 78-year-old gentleman who is postop day #3, status post 4-vessel bypass grafting. The patient's surgery was done by Dr. Rivero. The patient was extubated 6 hours and 12 minutes after leaving the operating room. From our perspective, i.e. pulmonary perspective, he is doing relatively well. He has been weaned down to room air. His IV is lactated Ringer's 20 mL an hour. He is still on Primacor 0.1 mcg/kg per minute. He had a blood gas ordered by Dr. Archibald yesterday. On room air, his PO2 was 84, pCO2 was 40, pH was 7.44. These are essentially normal blood gases. He did have an episode apparently yesterday according to the cardiothoracic nurse, of some bradycardia and hypotension. This may be related to positional changes. Anyway, chest x-ray looks good. He has got postsurgical changes and some atelectasis. Other than that, he has no major complaints. He is not doing particularly well on his incentive spirometer and I encouraged the nurse to encourage the patient. Current vital signs are reviewed. His temperature is 98.2 heart rate 88, respiratory rate 13, blood pressure 120/59, mean 79. His saturations are excellent on room air. Appears in no acute distress. Looks a little pale. HEENT examination is unremarkable. No supplemental oxygen noted. Neck is supple. Full range of motion. No adenopathy. Cardiovascular examination reveals regular rhythm and rate. Heart rate about 80 beats per minute. S1, S2 normal. Lungs reveal mostly clear breath sounds. A few scattered rhonchi. Abdomen is soft. Bowel sounds are heard. Extremities are intact. There is some mild edema. Skin without rash. Neurologic examination is brief but nonfocal. LAB DATA: Reviewed. White count 17.8, hemoglobin 7.5, hematocrit 22.5, platelet count 124,000. Blood gases have been noted already. Sodium 134, potassium 4.7, chloride 105, CO2 24, anion gap is 5, BUN and creatinine were 52 and 1.56. The rest of the labs look okay. Albumin is only 2.2. Microbiologic studies are negative. Medications are reviewed. Chest x-ray shows some postsurgical changes. There is some basilar atelectasis. Small pleural effusions. ASSESSMENT: 1. Postoperative day #3, status post 4-vessel bypass grafting for multivessel coronary artery disease. 2. Routine postoperative ventilator management, resolved. 3. Postoperative anemia. 4. Status post subacute inferior/posterior myocardial infarction. 5. Systolic heart failure, secondary to myocardial infarction with an ejection fraction of 40-45 percent. 6. Type 2 diabetes mellitus. 7. Benign essential hypertension. 8. History of hyperlipidemia. 9. History of atrial flutter, status post previous cardioversion August 2018. 10.History of coronary artery disease with previous PCI. 11.Previous right-sided thoracentesis for pleural effusion, which was transudative, suggesting etiology to be congestive heart failure. PLAN: Overall, from respiratory status, he is doing well. Remains on Primacor 0.1 mics per per minute. His room air blood gas was excellent with a PO2 of 84, a pCO2 40 and a pH is 7.44. The patient is not receiving any supplemental oxygen. His chest x-ray looks fine. He does need to improve his incentive spirometer. No additional recommendations are made. MMODL / IJN: [id number] /
--- NOTE | 2018-12-11 09:27 | P.PN ---
Subjective Progress Note Date: 12/11/18 Principal diagnosis: Severe triple vessel coronary artery disease, non-STEMI, acute on chronic systolic and diastolic heart failure with ejection fraction 40-45%, moderate left ventricular dysfunction with mild to moderate mitral valve regurgitation, right-sided pleural effusion status post thoracentesis with removal of 900 mL transudative fluid. 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 Preoperative leukocytosis, acute renal failure. POD #3 urgent quadruple coronary artery bypass grafting using the left internal mammary artery to the left anterior descending artery, reverse saphenous vein graft from the aorta to the first diagonal artery, reverse saphenous vein graft from the aorta to the first obtuse marginal artery, reverse saphenous vein graft from the aorta to the distal posterior lateral branch of the circumflex artery which is a dominant artery, bilateral pulmonary vein isolation using the radiofrequency bipolar clamp from AtriCure, intraoperative exclusion of the left atrial appendage using a 40 mm AtriClip, intraoperative transesophageal echocardiogram and epi-aortic scanning, and intraoperative graft flow m easurements using the Sphere 3d system, endoscopic harvesting of bilateral saphenous veins from the groin to the knee level. Postoperative acute blood loss anemia, expected outcome of surgery given he modilution and cardiopulmonary bypass pump. Postoperative bradycardia, unexpected but potential outcome, likely medication induced The patient's currently sitting up recliner in no acute distress in the intensive care unit. Denies any pain or shortness of breath. Currently in normal sinus rhythm with first-degree AV block, hemodynamically stable on 0.2 mcg/kg/m of Primacor. Had an episode of bradycardia yesterday in the 30s and 40s requiring return to external pacemaker. Appears at times to be in atrial fibrillation versus atrial flutter. Per nursing had an episode of apparent unresponsiveness last night when moving patient from the recliner back to bed which lasted approximately 1 minute where patient's blood pressure remained stable, heart rate was in the 50s to 60s. Ambulated in the room this morning with PT, patient required two-person assist and tired very quickly. Objective - Vital Signs Vital signs: Vital Signs Temp 97.5 F L 12/10/18 16:00 Pulse 90 12/11/18 07:17 Resp 13 12/11/18 07:00 BP 120/59 12/11/18 07:00 Pulse Ox 96 12/11/18 07:09 Intake & Output 12/10/18 12/11/18 12/11/18 18:59 06:59 18:59 Intake Total 1297 469 29 Output Total 765 788 66 Balance 532 -319 -37 Weight 94.8 kg Intake: IV 437 419 29 CO/CI 60 100 HD pressure bags 117 99 9 Lactated Ringers 1,000 ml 260 220 20 @ 20 mls/hr IV .Q24H [facility] Rx#:[id number] Intake, IV Titration 100 Amount Milrinone-D5w Pmx 20 mg 100 In Dextrose/Water 1 100ml .bag @ 0.2 MCG/KG/MIN 5. 16 mls/hr IV .[id number] [facility] Rx#:[id number] Oral 760 50 Output: Chest Tube Drainage 360 338 36 Left pleural 190 130 30 Right Pleural 170 208 6 Drainage 80 100 Left Calf 40 70 Right Calf 40 30 Urine 325 350 30 Other: Voiding Method Indwelling Catheter ABP, PAP, CO, CI - Last Documented Arterial Blood Pressure 137/49 Pulmonary Artery Pressure 47/13 Cardiac Output 4.9 Cardiac Index 2.7 - Constitutional General appearance: Present: cooperative, no acute distress, obese - Respiratory Details: Lungs sounds diminished bilaterally. Respirations even, nonlabored. Currently on room air with oxygen saturation 97%. Barely able to achieve 500 mL on his incentive spirometry. Weak cough. Left pleural chest tube to continuous wall suction, 80 mL serous drainage overnight, 450 mL in the last 24 hours. Right pleural chest tube to continuous wall suction, 130 mL serous drainage overnight, 385 mL in the last 24 hours. Tiny intermittent air leak present. - Cardiovascular Details: S1, S2 present. Regular rate and rhythm, sinus rhythm with first-degree AV block on telemetry, occasional A. fib/atrial flutter. Sternum stable. A/V epicardial pacemaker wires present, AAI mode with a backup rate 50 bpm. Palpable bilateral upper extremity pulses present, Doppler bilateral lower extremity pulses. Generalized edema present. Right internal jugular [place], right brachial arterial line present. Last CO/CI 4.2/2.3 on 0.2 mcg/kg/min of Primacor. Heart hugger in place with patient unable to demonstrate appropriate use. SCDs, antiembolism stockings present. - Gastrointestinal Gastrointestinal Comment(s): Abdomen soft, nontender, nondistended, obese. Active bowel sounds present 4 quadrants. Tolerating diet. Positive flatus, negative bowel movement. - Genitourinary Genitourinary Comment(s): Patient had to be straight cathed twice yesterday continue, Torres reinserted, output 30-50 mL per hour overnight. - Integumentary Integumentary Comment(s): Skin is warm and dry with evidence of good perfusion. Anterior chest incision well approximated covered with dry intact dressing. Bilateral lower extremity EVH site well approximated, FREDIS drains present with 70 mL serous drainage from left FREDIS and 30 mL surgery from right FREDIS overnight. - Neurologic Neurologic: Present: CNII-XII intact - Musculoskeletal Musculoskeletal: Present: generalized weakness, strength equal bilaterally - Psychiatric Psychiatric: Present: A&O x's 3, appropriate affect, intact judgment & insight - Allied health notes Allied health notes reviewed: nursing - Labs CBC & Chem 7: 12/11/18 04:15 12/11/18 04:15 Labs: Abnormal Lab Results - Last 24 Hours (Table) 12/10/18 12/10/18 12/10/18 Range/Units 11:59 17:04 17:06 WBC (3.8-10.6) k/uL RBC (4.30-5.90) m/uL Hgb (13.0-17.5) gm/dL Hct (39.0-53.0) % MCV (80.0-100.0) fL RDW (11.5-15.5) % Plt Count (150-450) k/uL Neutrophils # (1.3-7.7) k/uL Lymphocytes # (1.0-4.8) k/uL ABG Total CO2 (19-24) mmol/L ABG O2 Saturation (94-97) % Sodium (137-145) mmol/L BUN (9-20) mg/dL Creatinine (0.66-1.25) mg/dL Glucose (74-99) mg/dL POC Glucose (mg/dL) 218 H 315 H 312 H (75-99) mg/dL Calcium (8.4-10.2) mg/dL Magnesium (1.6-2.3) mg/dL ALT (21-72) U/L Total Protein (6.3-8.2) g/dL Albumin (3.5-5.0) g/dL 12/10/18 12/11/18 12/11/18 Range/Units 20:38 00:11 01:29 WBC (3.8-10.6) k/uL RBC (4.30-5.90) m/uL Hgb (13.0-17.5) gm/dL Hct (39.0-53.0) % MCV (80.0-100.0) fL RDW (11.5-15.5) % Plt Count (150-450) k/uL Neutrophils # (1.3-7.7) k/uL Lymphocytes # (1.0-4.8) k/uL ABG Total CO2 25 H (19-24) mmol/L ABG O2 Saturation 97.2 H (94-97) % Sodium (137-145) mmol/L BUN (9-20) mg/dL Creatinine (0.66-1.25) mg/dL Glucose (74-99) mg/dL POC Glucose (mg/dL) 331 H 221 H (75-99) mg/dL Calcium (8.4-10.2) mg/dL Magnesium (1.6-2.3) mg/dL ALT (21-72) U/L Total Protein (6.3-8.2) g/dL Albumin (3.5-5.0) g/dL 12/11/18 12/11/18 12/11/18 Range/Units 04:15 04:15 07:00 WBC 17.8 H (3.8-10.6) k/uL RBC 2.82 L (4.30-5.90) m/uL Hgb 7.5 L (13.0-17.5) gm/dL Hct 22.5 L (39.0-53.0) % MCV 79.8 L (80.0-100.0) fL RDW 17.2 H (11.5-15.5) % Plt Count 124 L (150-450) k/uL Neutrophils # 16.3 H (1.3-7.7) k/uL Lymphocytes # 0.5 L (1.0-4.8) k/uL ABG Total CO2 (19-24) mmol/L ABG O2 Saturation (94-97) % Sodium 134 L (137-145) mmol/L BUN 52 H (9-20) mg/dL Creatinine 1.56 H (0.66-1.25) mg/dL Glucose 132 H (74-99) mg/dL POC Glucose (mg/dL) 118 H (75-99) mg/dL Calcium 7.6 L (8.4-10.2) mg/dL Magnesium 2.9 H (1.6-2.3) mg/dL ALT 18 L (21-72) U/L Total Protein 4.2 L (6.3-8.2) g/dL Albumin 2.2 L (3.5-5.0) g/dL - Imaging and Cardiology Chest x-ray: report reviewed, image reviewed Assessment and Plan Assessment: 1. Severe triple-vessel coronary artery disease, non-STEMI, status post CABG 4 2. Acute on chronic systolic and diastolic heart failure with ejection fraction 40-45% 3. Moderate left ventricular dysfunction with mild to moderate mitral valve regurgitation 4. Right-sided pleural effusion status post thoracentesis with removal of 900 mL transudate of fluid 5. Leukocytosis 6. Acute renal failure, resolving 7. History of coronary artery disease with previous stents to the LAD in 2004, evidence of remote lateral wall myocardial infarction 8. Recent diagnosis of atrial flutter status post cardioversion on Eliquis for chronic for anticoagulation 9. Hypertension 10. Hyperlipidemia 11. Uncontrolled diabetes mellitus with hemoglobin A1c 7.8% 12. 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 Peripheral artery disease 14. Chronic venous stasis ulcers to his right lower extremity 15. Prostate disorder 16. Postoperative acute blood loss anemia, status post transfusion 1 unit packed red blood cells 17. Postoperative bradycardia, possibly medication induced Plan: 1. Continue aspirin, statin, Plavix, hydralazine, beta alfred therapy. Will increase beta alfred therapy as tolerated. Discontinue Primacor.. 2. Amiodarone discontinued yesterday after bradycardic episode, will hold for now. No anticoagulation yet until wires and tubes are pulled. 3. Bronchodilators per pulmonology. 4. No Lasix today. Will keep Torres catheter for 1 more day for strict accurate intake and output. Will start Flomax. 5. Encourage incentive spirometry 10 times every hour while awake. 6. Increase activity as tolerated. PT/OT/cardiac rehab following. 7. Will monitor daily labs and x-rays. Electrolyte replacement per protocol. No further transfusion. Will give IV calcium. 8. Pain control with current medication regimen. 9. Insulin management per primary care service. 10. GI/DVT prophylaxis with Protonix and heparin, SCDs. 11. Venous stasis ulcer wound care per Dr. Eldridge. 12. Patient will likely need rehab at discharge secondary to weakness, social work has ready been consulted for placement. 13. More recommendations based on patient's clinical course. Time with Patient: Greater than 30
[2018-12-11] MEDS ORDERED: CALCIUM GLUCONATE 1 GM in SODIUM CHLORIDE 0.9% 100 ML IVPB ONE (11:17)
[2018-12-11 12:04] LABS: Glucose,Whole Blood 141 mg/dL (75-99)
[2018-12-11] MEDS: TRIAMCINOLONE ACET 0.1% OINTMENT 15 GM TUBE TOPICAL SCH ×2 (12:08→21:00)
--- NOTE | 2018-12-11 12:39 | P.PN ---
Subjective Patient is sitting up comfortably in a chair. He does not appear to be in any respiratory distress. Heart rates are normal blood pressures in normal range His chest tubes still draining Normal bradycardia A brief episode of atrial flutter was noted but is not been adequately treated on account of his bleeding issues Heart sounds soft Breath sounds are clear no rhonchi no crackles Abdomen soft Extremities warm no edema Vitals are stable Impression Coronary artery disease, acute CA, status post coronary artery bypass grafting Suggest Continue aspirin and Plavix Decrease aspirin to 81 mg by mouth daily Continue beta blockers Continue atorvastatin Hold off on amiodarone Hold off on anticoagulants Objective - Vital Signs Vital signs: Vital Signs Temp 97.6 F 12/11/18 08:00 Pulse 80 12/11/18 11:15 Resp 15 12/11/18 11:00 BP 95/51 12/11/18 11:00 Pulse Ox 98 12/11/18 11:00 Intake & Output 12/10/18 12/11/18 12/11/18 18:59 06:59 18:59 Intake Total 1297 469 514 Output Total 765 788 512 Balance 532 -319 2 Weight 94.8 kg 94.8 kg Intake: IV 437 419 214 CO/CI 60 100 40 HD pressure bags 117 99 54 Lactated Ringers 1,000 ml 260 220 120 @ 20 mls/hr IV .Q24H [facility] Rx#:[id number] Intake, IV Titration 100 100 Amount Calcium Gluconate 1 gm In 100 Sodium Chloride 0.9% 100 ml @ 100 mls/hr IVPB ONCE ONE Rx#:[id number] Milrinone-D5w Pmx 20 mg 100 In Dextrose/Water 1 100ml .bag @ 0.2 MCG/KG/MIN 5. 16 mls/hr IV .[id number] [facility] Rx#:[id number] Oral 760 50 200 Output: Chest Tube Drainage 360 338 379 Left pleural 190 130 200 Right Pleural 170 208 179 Drainage 80 100 Left Calf 40 70 Right Calf 40 30 Urine 325 350 133 Other: Voiding Method Indwelling Catheter Indwelling Catheter ABP, PAP, CO, CI - Last Documented Arterial Blood Pressure 111/43 Pulmonary Artery Pressure 46/17 Cardiac Output 4 Cardiac Index 2.2 - Labs CBC & Chem 7: 12/11/18 04:15 12/11/18 04:15 Labs: Abnormal Lab Results - Last 24 Hours (Table) 0412/10/18 12/10/18 Range/Units 17:04 17:06 20:38 WBC (3.8-10.6) k/uL RBC (4.30-5.90) m/uL Hgb (13.0-17.5) gm/dL Hct (39.0-53.0) % MCV (80.0-100.0) fL RDW (11.5-15.5) % Plt Count (150-450) k/uL Neutrophils # (1.3-7.7) k/uL Lymphocytes # (1.0-4.8) k/uL ABG Total CO2 (19-24) mmol/L ABG O2 Saturation (94-97) % Sodium (137-145) mmol/L BUN (9-20) mg/dL Creatinine (0.66-1.25) mg/dL Glucose (74-99) mg/dL POC Glucose (mg/dL) 315 H 312 H 331 H (75-99) mg/dL Calcium (8.4-10.2) mg/dL Magnesium (1.6-2.3) mg/dL ALT (21-72) U/L Total Protein (6.3-8.2) g/dL Albumin (3.5-5.0) g/dL 12/11/18 12/11/18 12/11/18 Range/Units 00:11 01:29 04:15 WBC 17.8 H (3.8-10.6) k/uL RBC 2.82 L (4.30-5.90) m/uL Hgb 7.5 L (13.0-17.5) gm/dL Hct 22.5 L (39.0-53.0) % MCV 79.8 L (80.0-100.0) fL RDW 17.2 H (11.5-15.5) % Plt Count 124 L (150-450) k/uL Neutrophils # 16.3 H (1.3-7.7) k/uL Lymphocytes # 0.5 L (1.0-4.8) k/uL ABG Total CO2 25 H (19-24) mmol/L ABG O2 Saturation 97.2 H (94-97) % Sodium (137-145) mmol/L BUN (9-20) mg/dL Creatinine (0.66-1.25) mg/dL Glucose (74-99) mg/dL POC Glucose (mg/dL) 221 H (75-99) mg/dL Calcium (8.4-10.2) mg/dL Magnesium (1.6-2.3) mg/dL ALT (21-72) U/L Total Protein (6.3-8.2) g/dL Albumin (3.5-5.0) g/dL 12/11/18 12/11/18 12/11/18 Range/Units 04:15 07:00 12:03 WBC (3.8-10.6) k/uL RBC (4.30-5.90) m/uL Hgb (13.0-17.5) gm/dL Hct (39.0-53.0) % MCV (80.0-100.0) fL RDW (11.5-15.5) % Plt Count (150-450) k/uL Neutrophils # (1.3-7.7) k/uL Lymphocytes # (1.0-4.8) k/uL ABG Total CO2 (19-24) mmol/L ABG O2 Saturation (94-97) % Sodium 134 L (137-145) mmol/L BUN 52 H (9-20) mg/dL Creatinine 1.56 H (0.66-1.25) mg/dL Glucose 132 H (74-99) mg/dL POC Glucose (mg/dL) 118 H 141 H (75-99) mg/dL Calcium 7.6 L (8.4-10.2) mg/dL Magnesium 2.9 H (1.6-2.3) mg/dL ALT 18 L (21-72) U/L Total Protein 4.2 L (6.3-8.2) g/dL Albumin 2.2 L (3.5-5.0) g/dL
[2018-12-11 17:24] LABS: Glucose,Whole Blood 82 mg/dL (75-99)
--- NOTE | 2018-12-11 18:03 | PN ---
PROGRESS NOTE DATE OF SERVICE: 12/11/2018 This 78-year-old gentleman who was admitted after CAD, CABG also had a [place] Iraida catheter removed today. The patient is being closely monitored. Blood sugars are controlled with multiple doses of insulin. Patient being closely monitored at this time. The patient also had chest x-ray showed multiple postoperative changes. Creatinine is 1.56. PAST MEDICAL HISTORY: Reviewed. CURRENT MEDICATIONS ARE: 1. Tylenol p.r.n. 2. [place] 5 mg q.4 p.r.n. 3. DuoNeb q.i.d. and p.r.n. 4. Aspirin 81 mg daily. 5. Lipitor 40 mg. 6. Cepacol. 7. Plavix 75 mg. 8. Heparin 5000 subcu b.i.d. 9. Alprazolam 25 mg q.a.m. 10.Lactated Ringers. 11.Milk of Magnesia. 12.Reglan. 13.Lopressor. 14.P.r.n. medications. 15.Bactrim. 16.Zofran. 17.Protonix. 18.Senokot-S. 19.Flomax. 20.Kenalog. PHYSICAL EXAM: Patient is alert, oriented x3. Pulse is 82, blood pressure 123/44, respiration 22, temperature is normal, pulse ox 98% on oxygen. HEENT: Conjunctivae normal. Oral mucosa moist. NECK: No jugular venous distention. No carotid bruit. No lymph node enlargement. CARDIOVASCULAR: S1, S2 muffled. Respiratory: Breath sounds diminished in the bases. A few scattered rhonchi and crackles. ABDOMEN: Soft, nontender. Legs are no edema. No swelling. CENTRAL NERVOUS SYSTEM: No focal deficits. LABORATORY DATA: WBC 7.2, hemoglobin 11.5. BMP noted. Creatinine 1.56. ASSESSMENT: 1. Status post coronary artery disease, coronary artery bypass grafting four vessel bypass. 2. History of acute non-ST segment elevation myocardial infarction, present on admission. 3. Diabetes mellitus type 2 on insulin. 4. Congestive heart failure, acute exacerbation, acute on chronic systolic dysfunction. 5. History of coronary artery disease. 6. History of congestive heart failure. 7. History of atrial fibrillation. 8. Diabetes mellitus type 2. 9. Hyperlipidemia. 10.Anemia. 11.Increased WBC. 12.Increased creatinine with possible chronic kidney disease stage 3. RECOMMENDATIONS AND DISCUSSION: In this 78-year-old gentleman who presented with multiple complex medical issues, at this time, I recommend to continue monitoring, current medications, management and symptomatic treatment. Otherwise at this time I recommend continue with Accu-Cheks a.c. and q.h.s. and antiplatelet agents. DVT prophylaxis. We will monitor the patient closely. Once the patient's p.o. intake improves, if sugars are still high, we will add mealtime dose of insulin. Otherwise, continue to monitor. Closely follow with Cardiothoracic surgery. Further recommendations to follow. MMODL / IJN: [id number] /
[2018-12-11] MEDS ORDERED: TAMSULOSIN 0.4 MG CAP.ER.24H PO SCH (18:30)
[2018-12-11] MEDS: LACTATED RINGERS 1,000 ML IV SCH (19:19)
[2018-12-11 20:21] LABS: Glucose,Whole Blood 77 mg/dL (75-99)
[2018-12-11 20:21] LABS: Glucose,Whole Blood 68 mg/dL (75-99)
[2018-12-11 20:38] LABS: Glucose,Whole Blood 68 mg/dL (75-99)
[2018-12-11 20:59] LABS: Glucose,Whole Blood 86 mg/dL (75-99)
[2018-12-11] MEDS: SENNOSIDES-DOCUSATE SODIUM 1 EACH TAB PO SCH (21:00)
--- NOTE | 2018-12-11 22:38 | P.PN ---
Subjective Progress Note Date: 12/11/18 78-year-old male presents to hospital with increasing weakness and shortness of breath. Patient has a known history of multiple medical troubles that includes underlying coronary artery disease. The time of the presentation there is evidence of a subacute myocardial infarction and he has been treated for this. The patient has difficulties with bilateral lower extremity ulcerations present for about a year and a half. He is a and [facility] care [facility]. He probably was seen by hospitality coordinator in several events but because of his [facility] status they could not treat him any further. He apply some local care to the legs but does not have ongoing follow-up with the [facility]. They suggested he go to dermatology in [place] but he will not drive to [facility]. He relates he ulcerations are not painful but he does have trouble trying to take care of them. He relates that his chest pain is improved. He has less shortness of breath. The edema to the legs has improved since coming to [facility]. He currently is denying fevers, chills or rigors. 12/05/2018 patient is with improved chest pain at this time. He has been seen by cardiovascular surgery and is being evaluated for potential cardiac revascularization given his significant multivessel disease. Ulcerations without pain to the lower extremity. 12/09/2018 status post heart attack revascularization the patient is stable at t his point in time. Sitting up in the chair and seems comfortable. Other than the pain he voices no acute difficulties. He is afebrile 12/11/2018 patient is feeling better today. He's been up in the chair and has been able to with assistance ably within the room. His feelings of weakness and feeling cold have resolved and eating his lunch without difficulty. Objective - Vital Signs Vital signs: Vital Signs Temp 97.6 F 12/11/18 16:00 Pulse 66 12/11/18 20:40 Resp 22 12/11/18 19:00 BP 110/62 12/11/18 19:00 Pulse Ox 99 12/11/18 19:00 Intake & Output 12/11/18 12/11/18 12/12/18 06:59 18:59 06:59 Intake Total 469 702 26 Output Total 235 967 165 Balance -319 -265 -139 Weight 94.8 kg 94.8 kg Intake: IV 419 402 26 CO/CI 100 60 HD pressure bags 99 102 6 Lactated Ringers 1,000 ml 220 240 20 @ 20 mls/hr IV .Q24H PEARL Rx#:[id number] Intake, IV Titration 100 Amount Calcium Gluconate 1 gm In 100 Sodium Chloride 0.9% 100 ml @ 100 mls/hr IVPB ONCE ONE Rx#:[id number] Oral 50 200 Output: Chest Tube Drainage 338 579 130 Left pleural 130 360 90 Right Pleural 208 219 40 Drainage 100 95 Left Calf 70 65 Right Calf 30 30 Urine 350 293 35 Other: Voiding Method Indwelling Catheter Indwelling Catheter ABP, PAP, CO, CI - Last Documented Arterial Blood Pressure 132/49 Pulmonary Artery Pressure 49/20 Cardiac Output 4.2 Cardiac Index 2.3 - Exam 78-year-old male who is comfortable denying chest pain HEENT: Anicteric conjunctiva are pink and moist nasal mucosa grossly intact without significant lesions, there is no thrush. Neck: The neck is supple without significant lymphadenopathy or thyromegaly. Lungs: Symmetrical air entry with basilar crackles no bronchial sounds no dullness or egophony Heart: Irregular with a loud S4 no new murmur click or rub the surgical incision is noted from the recent CABG without drainage Abdomen: Mildly obese, Positive bowel sounds soft and nontender without palpable masses or organomegaly. There was no guarding or rebound. Extremities: The upper extremities have excellent pulses they are symmetric, no significant petechiae or telangiectasia. No splinter hemorrhages were noted. Lower extremities reveal evidence of some chronic venous stasis Left leg does not have significant open ulcerations but does have chronic skin changes with dryness and plaques. Evidence the bilateral lower extremity wraps and drains in place for vein harvest Neuro: Awake alert oriented to person place and time. There are no acute new gross focal sensory motor deficits. - Labs CBC & Chem 7: 12/11/18 04:15 12/11/18 04:15 Labs: Abnormal Lab Results - Last 24 Hours (Table) 12/11/18 12/11/18 12/11/18 Range/Units 00:11 01:29 04:15 WBC 17.8 H (3.8-10.6) k/uL RBC 2.82 L (4.30-5.90) m/uL Hgb 7.5 L (13.0-17.5) gm/dL Hct 22.5 L (39.0-53.0) % MCV 79.8 L (80.0-100.0) fL RDW 17.2 H (11.5-15.5) % Plt Count 124 L (150-450) k/uL Neutrophils # 16.3 H (1.3-7.7) k/uL Lymphocytes # 0.5 L (1.0-4.8) k/uL ABG Total CO2 25 H (19-24) mmol/L ABG O2 Saturation 97.2 H (94-97) % Sodium (137-145) mmol/L BUN (9-20) mg/dL Creatinine (0.66-1.25) mg/dL Glucose (74-99) mg/dL POC Glucose (mg/dL) 221 H (75-99) mg/dL Calcium (8.4-10.2) mg/dL Magnesium (1.6-2.3) mg/dL ALT (21-72) U/L Total Protein (6.3-8.2) g/dL Albumin (3.5-5.0) g/dL 12/11/18 12/11/18 12/11/18 Range/Units 04:15 07:00 12:03 WBC (3.8-10.6) k/uL RBC (4.30-5.90) m/uL Hgb (13.0-17.5) gm/dL Hct (39.0-53.0) % MCV (80.0-100.0) fL RDW (11.5-15.5) % Plt Count (150-450) k/uL Neutrophils # (1.3-7.7) k/uL Lymphocytes # (1.0-4.8) k/uL ABG Total CO2 (19-24) mmol/L ABG O2 Saturation (94-97) % Sodium 134 L (137-145) mmol/L BUN 52 H (9-20) mg/dL Creatinine 1.56 H (0.66-1.25) mg/dL Glucose 132 H (74-99) mg/dL POC Glucose (mg/dL) 118 H 141 H (75-99) mg/dL Calcium 7.6 L (8.4-10.2) mg/dL Magnesium 2.9 H (1.6-2.3) mg/dL ALT 18 L (21-72) U/L Total Protein 4.2 L (6.3-8.2) g/dL Albumin 2.2 L (3.5-5.0) g/dL 12/11/18 12/11/18 Range/Units 20:18 20:36 WBC (3.8-10.6) k/uL RBC (4.30-5.90) m/uL Hgb (13.0-17.5) gm/dL Hct (39.0-53.0) % MCV (80.0-100.0) fL RDW (11.5-15.5) % Plt Count (150-450) k/uL Neutrophils # (1.3-7.7) k/uL Lymphocytes # (1.0-4.8) k/uL ABG Total CO2 (19-24) mmol/L ABG O2 Saturation (94-97) % Sodium (137-145) mmol/L BUN (9-20) mg/dL Creatinine (0.66-1.25) mg/dL Glucose (74-99) mg/dL POC Glucose (mg/dL) 68 L 68 L (75-99) mg/dL Calcium (8.4-10.2) mg/dL Magnesium (1.6-2.3) mg/dL ALT (21-72) U/L Total Protein (6.3-8.2) g/dL Albumin (3.5-5.0) g/dL Laboratory Results WBC 17.8 k/uL (3.8-10.6) H 12/11/18 04:15 RBC 2.82 m/uL (4.30-5.90) L 12/11/18 04:15 Hgb 7.5 gm/dL (13.0-17.5) L 12/11/18 04:15 Hct 22.5 % (39.0-53.0) L 12/11/18 04:15 MCV 79.8 fL (80.0-100.0) L 12/11/18 04:15 MCH 26.8 pg (25.0-35.0) 12/11/18 04:15 MCHC 33.6 g/dL (31.0-37.0) 12/11/18 04:15 RDW 17.2 % (11.5-15.5) H 12/11/18 04:15 Plt Count 124 k/uL (150-450) L 12/11/18 04:15 Neutrophils % 92 % 12/11/18 04:15 Neutrophils % (Manual) 79 % 12/08/18 23:05 Band Neutrophils % 16 % 12/08/18 23:05 Lymphocytes % 3 % 12/11/18 04:15 Lymphocytes % (Manual) 1 % 12/08/18 23:05 Monocytes % 5 % 12/11/18 04:15 Monocytes % (Manual) 3 % 12/08/18 23:05 Eosinophils % 0 % 12/11/18 04:15 Basophils % 0 % 12/11/18 04:15 Metamyelocytes % 1 % 12/08/18 23:05 Neutrophils # 16.3 k/uL (1.3-7.7) H 12/11/18 04:15 Neutrophils # (Manual) 26.90 k/uL (1.3-7.7) H 12/08/18 23:05 Lymphocytes # 0.5 k/uL (1.0-4.8) L 12/11/18 04:15 Lymphocytes # (Manual) 0.28 k/uL (1.0-4.8) L 12/08/18 23:05 Monocytes # 0.8 k/uL (0-1.0) 12/11/18 04:15 Monocytes # (Manual) 0.85 k/uL (0-1.0) 12/08/18 23:05 Eosinophils # 0.1 k/uL (0-0.7) 12/11/18 04:15 Basophils # 0.0 k/uL (0-0.2) 12/11/18 04:15 Metamyelocytes # (Man) 0.28 k/uL (0) H 12/08/18 23:05 Nucleated RBCs 0 /100 WBC (0-0) 12/08/18 23:05 Manual Slide Review Performed 12/08/18 23:05 Polychromasia Present 12/08/18 23:05 Hypochromasia Moderate 12/05/18 14:03 Poikilocytosis Slight 12/11/18 04:15 Poikilocytosis (manual Present 12/08/18 23:05 Anisocytosis Slight 12/11/18 04:15 PT 12.7 sec (9.0-12.0) H 12/08/18 17:05 INR 1.2 (<1.2) H 12/08/18 17:05 APTT 57.1 sec (22.0-30.0) H 12/08/18 17:05 Fibrinogen 234 mg/dL (200-500) 12/08/18 17:05 Sample Site [place] 12/11/18 00:11 ABG pH 7.44 (7.35-7.45) 12/11/18 00:11 ABG pCO2 36 mmHg (35-45) 12/11/18 00:11 ABG pO2 84 mmHg (83-108) 12/11/18 00:11 ABG HCO3 24 mmol/L (21-25) 12/11/18 00:11 ABG Total CO2 25 mmol/L (19-24) H 12/11/18 00:11 ABG O2 Saturation 97.2 % (94-97) H 12/11/18 00:11 ABG Base Excess 0.0 mmol/L 12/11/18 00:11 ABG Hematocrit 26 % (34.0-46.0) L 12/08/18 16:17 Carlos Test Yes 12/11/18 00:11 ABG Sodium 137 mmol/L (135-146) 12/08/18 16:17 ABG Potassium 4.6 mmol/L (3.4-4.5) H 12/08/18 16:17 ABG Ionized Calcium 4.0 mg/dL (4.5-5.3) L 12/08/18 16:17 ABG Glucose 113 mg/dL (75-99) H 12/08/18 16:17 ABG Lactic Acid 1.4 mmol/L (0.5-1.6) 12/08/18 16:17 Hemoglobin 8.5 gm/dL (13.0-17.5) L 12/08/18 16:17 FiO2 21 % 12/11/18 00:11 Sodium 134 mmol/L (137-145) L 12/11/18 04:15 Potassium 4.7 mmol/L (3.5-5.1) 12/11/18 04:15 Chloride 105 mmol/L (98-107) 12/11/18 04:15 Carbon Dioxide 24 mmol/L (22-30) 12/11/18 04:15 Anion Gap 5 mmol/L 12/11/18 04:15 BUN 52 mg/dL (9-20) H 12/11/18 04:15 Creatinine 1.56 mg/dL (0.66-1.25) H 12/11/18 04:15 Est GFR (CKD-EPI)AfAm 49 (>60 ml/min/1.73 sqM) 12/11/18 04:15 Est GFR (CKD-EPI)NonAf 43 (>60 ml/min/1.73 sqM) 12/11/18 04:15 Glucose 132 mg/dL (74-99) H 12/11/18 04:15 POC Glucose (mg/dL) 86 mg/dL (75-99) 12/11/18 20:58 POC Glu Compo Caster ID Dalia Bhardwaj 12/11/18 20:[address] Glu mg/dL 177 12/01/18 05:38 Hemoglobin A1c 7.8 % (4.0-6.0) H 12/01/18 05:38 Plasma Lactic Acid Gutierrez 1.8 mmol/L (0.7-2.0) 11/30/18 16:08 Calcium 7.6 mg/dL (8.4-10.2) L 12/11/18 04:15 Ionized Calcium Gladis 4.6 mg/dL (4.5-5.3) 12/10/18 04:25 Phosphorus 4.8 mg/dL (2.5-4.5) H 12/02/18 04:36 Magnesium 2.9 mg/dL (1.6-2.3) H 12/11/18 04:15 Total Bilirubin 0.3 mg/dL (0.2-1.3) 12/11/18 04:15 AST 24 U/L (17-59) 12/11/18 04:15 ALT 18 U/L (21-72) L 12/11/18 04:15 Alkaline Phosphatase 73 U/L (38-126) 12/11/18 04:15 Creatine Kinase 257 U/L (55-170) H 11/30/18 11:56 CK-MB (CK-2) 23.5 ng/mL (0.0-2.4) H 11/30/18 11:56 Troponin I 20.200 ng/mL (0.000-0.034) H* 12/01/18 05:38 NT-Pro-B Natriuret Pep 17966 pg/mL 11/30/18 11:56 Total Protein 4.2 g/dL (6.3-8.2) L 12/11/18 04:15 Albumin 2.2 g/dL (3.5-5.0) L 12/11/18 04:15 Triglycerides 145 mg/dL (<150) 12/05/18 14:03 Cholesterol 177 mg/dL (<200) 12/05/18 14:03 LDL Cholesterol, Calc 104 mg/dL (0-99) H 12/05/18 14:03 HDL Cholesterol 44 mg/dL (40-60) 12/05/18 14:03 TSH 0.419 mIU/L (0.465-4.680) L 12/05/18 14:03 Free T4 1.42 ng/dL (0.78-2.19) 12/05/18 14:03 Arterial Blood Potassium 4.6 mmol/L (3.4-4.5) H 12/08/18 16:17 Arterial Blood Glucose 113 mg/dL (75-99) H 12/08/18 16:17 Urine Color Yellow 12/06/18 06:15 Urine Appearance Turbid (Clear) 12/06/18 06:15 Urine pH 5.5 (5.0-8.0) 12/06/18 06:15 Ur Specific [place] 1.020 (1.001-1.035) 12/06/18 06:15 Urine Protein 2+ (Negative) H 12/06/18 06:15 Urine Glucose (UA) Negative (Negative) 12/06/18 06:15 Urine Ketones Negative (Negative) 12/06/18 06:15 Urine Blood Moderate (Negative) H 12/06/18 06:15 Urine Nitrite Negative (Negative) 12/06/18 06:15 Urine Bilirubin Negative (Negative) 12/06/18 06:15 Urine Urobilinogen <2.0 mg/dL (<2.0) 12/06/18 06:15 Ur Leukocyte Esterase Moderate (Negative) H 12/06/18 06:15 Urine RBC 123 /hpf (0-5) H 12/06/18 06:15 Urine WBC 26 /hpf (0-5) H 12/06/18 06:15 Ur Squamous Epith Cells 1 /hpf (0-4) 12/06/18 06:15 Triple Phos Crystals Few /hpf (None) H 12/06/18 06:15 Amorphous Sediment Occasional /hpf (None) H 12/06/18 06:15 Urine Bacteria Rare /hpf (None) H 12/06/18 06:15 Hyaline Casts 6 /lpf (0-2) H 12/06/18 06:15 Urine Mucus Many /hpf (None) H 12/06/18 06:15 Fluid Source Pleural 12/01/18 10:45 Fluid Color Yellow 12/01/18 10:45 Fluid Appearance Clear 12/01/18 10:45 Fluid RBC 445 /uL 12/01/18 10:45 Fluid Nucleated Cells 55 /uL 12/01/18 10:45 Fluid Polynuclear WBCs 5 % 12/01/18 10:45 Fluid Mononuclear WBCs 95 % 12/01/18 10:45 Body Fluid Glucose Source Pleural Fluid 12/01/18 10:45 Fluid Glucose 215 mg/dL 12/01/18 10:45 Body Fluid Protein Source Pleural Fluid 12/01/18 10:45 Fluid Total Protein 1862 mg/dL 12/01/18 10:45 Body Fluid LDH Source Pleural Fluid 12/01/18 10:45 Fluid LDH 101 U/L 12/01/18 10:45 Hepatitis A IgM Ab Non-Reactive (Non-Reactive) 12/05/18 14:03 Hep Bs Antigen Non-Reactive (Non-Reactive) 12/05/18 14:03 Hep B Core IgM Ab Non-Reactive (Non-Reactive) 12/05/18 14:03 Hep C IgG Ab Non-Reactive (Non-Reactive) 12/05/18 14:03 Influenza Type A RNA Not Detected (Not Detectd) 11/30/18 12:12 Influenza Type B (PCR) Not Detected (Not Detectd) 11/30/18 12:12 Blood Type O Positive 12/07/18 15:18 Blood Type Confirm O Positive 12/07/18 06:51 Blood Type Recheck CABO Indicated 12/07/18 15:18 Antibody Screen NEGATIVE 12/07/18 15:18 Crossmatch See Detail 12/07/18 15:18 Transfuse Plasma 12/08/2018 12/08/18 17:05 Transfuse Platelets 12/08/18 17:05 Spec Expiration Date 12/10/2018 - 2318 12/07/18 15:18 Microbiology 12/06/18 06:15 Urine,Catheterized Urine Culture - Final 12/05/18 17:00 Nasal Swab Nasal Screen MRSA/MSSA - Final 11/30/18 11:56 Blood Blood Culture - Final No Growth after 144 hours 12/01/18 10:45 Pleural Fluid Gram Stain - Final 12/01/18 10:45 Pleural Fluid Body Fluid Culture - Final Assessment and Plan (1) Myocardial infarction Current Visit: Yes Status: Acute Code(s): I21.9 - ACUTE MYOCARDIAL INFARCTION, UNSPECIFIED SNOMED Code(s): 13986720 (2) Acute systolic (congestive) heart failure Current Visit: Yes Status: Acute Code(s): I50.21 - ACUTE SYSTOLIC (CONGESTIVE) HEART FAILURE SNOMED Code(s): 964924496 (3) Congestive heart failure Current Visit: Yes Status: Acute Code(s): I50.9 - HEART FAILURE, UNSPECIFIED SNOMED Code(s): 97025411 (4) Venous stasis ulcer of right lower leg with edema of right lower leg Narrative/Plan: 78-year-old male that has a history of multiple medical troubles with known coronary artery disease who presents to Hospital feeling poorly. Evidence of a subacute myocardial infarction. Is being treated by cardiology with medication changes is feeling better. There is evidence of a right pleural effusion and this was tapped without evidence of any significant empyema or infection in that site. Patient is evidence of chronic ulcerations lower extremities and relates that the ulceration of the right leg has been present for approximately 18 months and [facility] as well as a local hospitality coordinator. Due to his [facility] insurance was no longer able to see the hospitality coordinator. He does not want to drive to [place] to see dermatology. This time he appears to have some chronic skin changes the lower extremities and constantly to the plaque-like areas the topical triamcinolone will be applied. The open ulceration hydrogel dressing is applied. This can be applied twice a day and then rolled gauze and Gianni wrap should be applied temp of lower extremity edema. Elevation of the limbs at rest will be helpful. If possible would be happy to see him in the wound healing center here [facility] after his discharge. The ulceration does not appear to be infected. 12/05/2018 patient has not been seen by cardiovascular surgery and there are plans for potential cardiac revascularization. Wounds are being treated as above with the triamcinolone and hydrogel dressing. No evidence of empyema Chest pain is improved at this point in time. Cardiac catheterization was performed today revealing evidence of the multivessel disease and interventions potentially as above. Echocardiogram does reveal evidence of impaired left v entricular function. 12/09/2018 status post cardiovascular revascularization patient is sitting up in the chair and stable. Continue local wound care to the prior ulceration. No evidence of any sepsis at this time. 12/11/2018 status post CABG and having further improvements to his status continue with local wound care to the ulceration that is not infected. Continue with compression to lower extremity to help with the ulceration. Current Visit: Yes Status: Acute Code(s): I83.019 - VARICOSE VEINS OF RIGHT LOWER EXTREMITY W ULCER OF UNSP SITE; I83.891 - VARICOSE VEINS OF R LOW EXTREM WITH OTHER COMPLICATIONS; L97.919 - NON-PRS CHRONIC ULC UNSP PRT OF R LOW LEG W UNSP SEVERITY; R60.9 - EDEMA, UNSPECIFIED SNOMED Code(s): 79440633082454788
[2018-12-12] MEDS: MILRINONE-D5W PMX 20 MG in DEXTROSE/WATER 1 100ML.BAG IV SCH (00:16)
[2018-12-12] MEDS: HEPARIN SODIUM,PORCINE 5,000 UNIT/ML 1 ML VIAL SQ SCH ×3 (01:49→17:36)
[2018-12-12] MEDS: hydrALAZINE HCL 25 MG TAB PO SCH ×3 (01:49→17:36)
[2018-12-12 04:22] LABS: Glucose,Whole Blood 29 mg/dL (75-99)
[2018-12-12 04:22] LABS: Glucose,Whole Blood 136 mg/dL (75-99)
[2018-12-12] MEDS ORDERED: DEXTROSE 50%-WATER 50 ML SYRINGE IVP STA (04:37)
[2018-12-12 05:11] LABS: Glucose,Whole Blood 73 mg/dL (75-99)
[2018-12-12 05:49] LABS: Glucose,Whole Blood 69 mg/dL (75-99)
[2018-12-12 05:51] LABS: Glucose,Whole Blood 150 mg/dL (75-99)
[2018-12-12 06:11] LABS: Glucose,Whole Blood 137 mg/dL (75-99)
[2018-12-12 06:20] LABS: Basophils % (A) 0 %; Eosinophils # (A) 0.2 k/uL (0-0.7); Eosinophils % (A) 1 %; HCT 24.3 % (39.0-53.0); HGB 7.7 gm/dL (13.0-17.5); Lymphocytes # (A) 0.4 k/uL (1.0-4.8); Lymphocytes % (A) 3 %; MCH 26.6 pg (25.0-35.0); MCHC 31.7 g/dL (31.0-37.0); MCV 83.9 fL (80.0-100.0); Mean Platelet Volume 8.1; Monocytes # (A) 0.8 k/uL (0-1.0); Monocytes % (A) 6 %; Neutrophils # (A) 13.6 k/uL (1.3-7.7); Neutrophils % (A) 89 %; Platelet Count 131 k/uL (150-450); RDW 15.7 % (11.5-15.5); WBC 15.2 k/uL (3.8-10.6)
[2018-12-12 06:28] LABS: Ionized Calcium 4.7 mg/dL (4.5-5.3)
[2018-12-12 06:39] LABS: Glucose,Whole Blood 134 mg/dL (75-99)
--- NOTE | 2018-12-12 07:19 | XR ---
EXAMINATION TYPE: XR chest 1V portable DATE OF EXAM: 12/12/2018 COMPARISON: Prior chest x-ray 12/11/2018 HISTORY: Chest tube, post cardiac surgery TECHNIQUE: Single frontal view of the chest is obtained. FINDINGS: Prior lateral chest tubes are in place. Patient is post median sternotomy and atrial appen dage clipping. Right-sided central venous sheath is present, catheter has been removed. Heart remains enlarged. There are overlying cardiac leads. Bibasilar increased density developed in the interval. No pneumothorax. IMPRESSION: There may be basilar edema, correlate to exclude pneumonia.
[2018-12-12 07:37] LABS: Glucose,Whole Blood 100 mg/dL (75-99)
[2018-12-12] MEDS: IPRATROPIUM-ALBUTEROL 3 ML NEB INHALATION SCH ×4 (07:46→20:25)
[2018-12-12 07:50] LABS: Calcium 7.4 mg/dL (8.4-10.2); Magnesium 2.7 mg/dL (1.6-2.3)
--- NOTE | 2018-12-12 08:58 | P.PN ---
Subjective Progress Note Date: 12/12/18 Principal diagnosis: Severe triple vessel coronary artery disease, non-STEMI, acute on chronic systolic and diastolic heart failure with ejection fraction 40-45%, moderate left ventricular dysfunction with mild to moderate mitral valve regurgitation, right-sided pleural effusion status post thoracentesis with removal of 900 mL transudative fluid. 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 Preoperative leukocytosis, acute renal failure. POD #4 urgent quadruple coronary artery bypass grafting using the left internal mammary artery to the left anterior descending artery, reverse saphenous vein graft from the aorta to the first diagonal artery, reverse saphenous vein graft from the aorta to the first obtuse marginal artery, reverse saphenous vein graft from the aorta to the distal posterior lateral branch of the circumflex artery which is a dominant artery, bilateral pulmonary vein isolation using the radiofrequency bipolar clamp from [employer], intraoperative exclusion of the left atrial appendage using a 40 mm AtriClip, intraoperative transesophageal echocardiogram and epi-aortic scanning, and intraoperative graft flow m easurements using the [employer] system, endoscopic harvesting of bilateral saphenous veins from the groin to the knee level. Postoperative acute blood loss anemia, expected outcome of surgery given he modilution and cardiopulmonary bypass pump. Postoperative bradycardia, unexpected but potential outcome, likely medication induced Postoperative atrial flutter, expected outcome The patient's currently sitting up in bed in no acute distress in the intensive care unit. Denies any pain or shortness of breath, does complain of being cold an extremely tired. Currently in normal sinus rhythm, hemodynamically stable on no inotropes or pressors, Primacor discontinued yesterday. Appears at times to be in atrial flutter, does occasionally have short bursts of atrially paced rhythm lasting less than 30 seconds. Per nursing had an episode of hypoglycemia last night with blood sugar tipping 29, was restarted on his home doses of NPH insulin yesterday of 60 units twice daily after having blood sugars yesterday morning in the 300s. Ambulated in the room twice yesterday with PT, patient required two-person assist and tired very quickly. Objective - Vital Signs Vital signs: Vital Signs Temp 97.6 F 12/12/18 04:00 Pulse 78 12/12/18 07:55 Resp 12 12/12/18 07:00 BP 122/58 12/12/18 07:00 Pulse Ox 97 12/12/18 07:00 Intake & Output 12/11/18 12/12/18 12/12/18 18:59 06:59 18:59 Intake Total 702 576 Output Total 967 865 110 Balance -265 -289 -110 Weight 94.8 kg 95.8 kg Intake: IV 402 326 CO/CI 60 HD pressure bags 102 66 Lactated Ringers 1,000 ml 240 260 @ 20 mls/hr IV .[facility]H [facility] Rx#:[id number] Intake, IV Titration 100 Amount Calcium Gluconate 1 gm In 100 Sodium Chloride 0.9% 100 ml @ 100 mls/hr IVPB ONCE ONE Rx#:[id number] Oral 200 250 Output: Chest Tube Drainage 579 320 110 Left pleural 360 200 30 Right Pleural 219 120 80 Drainage 95 110 Left Calf 65 100 Right Calf 30 10 Urine 293 435 Other: Voiding Method Indwelling Catheter Indwelling Catheter ABP, PAP, CO, CI - Last Documented Arterial Blood Pressure 140/54 Pulmonary Artery Pressure 49/20 Cardiac Output 4.2 Cardiac Index 2.3 - Constitutional General appearance: Present: cooperative, no acute distress, obese - Respiratory Details: Lungs sounds diminished bilaterally. Respirations even, nonlabored. Currently on room air with oxygen saturation 97%. Barely able to achieve 500 mL on his incentive spirometry, patient does take deeper breaths without the incentive spirometry. Strong cough. Left pleural chest tube to continuous wall suction, 40 mL serous drainage overnight, 590 mL in the last 24 hours. Right pleural chest tube to continuous wall suction, 60 mL serous drainage overnight, 400 mL in the last 24 hours. No air leak present. - Cardiovascular Details: S1, S2 present. Regular rate and rhythm, sinus rhythm on telemetry, occasional atrial flutter. Sternum stable. A/V epicardial pacemaker wires present, AAI mode with a backup rate 50 bpm. Palpable bilateral upper extremity pulses present, Doppler bilateral lower extremity pulses. Generalized edema present. Right internal jugular Cordis present. Heart hugger in place with patient unable to demonstrate appropriate use. SCDs, antiembolism stockings present. - Gastrointestinal Gastrointestinal Comment(s): Abdomen soft, nontender, nondistended, obese. Active bowel sounds present 4 quadrants. Tolerating diet. Positive flatus, negative bowel movement. - Genitourinary Genitourinary Comment(s): Torres present draining clear, yellow urine. Output 30-40 mL/h overnight. - Integumentary Integumentary Comment(s): Skin is warm and dry with evidence of good perfusion. Anterior chest incision well approximated covered with dry intact dressing. Bilateral lower extremity EVH site well approximated, FREDIS drains present with 100 mL serous drainage from left FREDIS and 10 mL surgery from right FREDIS overnight. - Neurologic Neurologic: Present: CNII-XII intact - Musculoskeletal Musculoskeletal: Present: generalized weakness, strength equal bilaterally - Psychiatric Psychiatric Comment(s): Patient is very sleepy but does arouse and is oriented to person place time and situation. He does follow all commands. Psychiatric: Present: appropriate affect - Allied health notes Allied health notes reviewed: nursing - Labs CBC & Chem 7: 12/12/18 04:40 12/12/18 04:40 Labs: Abnormal Lab Results - Last 24 Hours (Table) 12/11/18 12/11/18 12/11/18 Range/Units 12:03 20:18 20:36 WBC (3.8-10.6) k/uL RBC (4.30-5.90) m/uL Hgb (13.0-17.5) gm/dL Hct (39.0-53.0) % RDW (11.5-15.5) % Plt Count (150-450) k/uL Neutrophils # (1.3-7.7) k/uL Lymphocytes # (1.0-4.8) k/uL Sodium (137-145) mmol/L BUN (9-20) mg/dL Creatinine (0.66-1.25) mg/dL Glucose (74-99) mg/dL POC Glucose (mg/dL) 141 H 68 L 68 L (75-99) mg/dL Calcium (8.4-10.2) mg/dL Magnesium (1.6-2.3) mg/dL 12/12/18 12/12/18 12/12/18 Range/Units 04:05 04:20 04:40 WBC 15.2 H (3.8-10.6) k/uL RBC 2.90 L (4.30-5.90) m/uL Hgb 7.7 L (13.0-17.5) gm/dL Hct 24.3 L (39.0-53.0) % RDW 15.7 H (11.5-15.5) % Plt Count 131 L (150-450) k/uL Neutrophils # 13.6 H (1.3-7.7) k/uL Lymphocytes # 0.4 L (1.0-4.8) k/uL Sodium (137-145) mmol/L BUN (9-20) mg/dL Creatinine (0.66-1.25) mg/dL Glucose (74-99) mg/dL POC Glucose (mg/dL) 29 L 136 H (75-99) mg/dL Calcium (8.4-10.2) mg/dL Magnesium (1.6-2.3) mg/dL 12/12/18 12/12/18 12/12/18 Range/Units 04:40 05:10 05:27 WBC (3.8-10.6) k/uL RBC (4.30-5.90) m/uL Hgb (13.0-17.5) gm/dL Hct (39.0-53.0) % RDW (11.5-15.5) % Plt Count (150-450) k/uL Neutrophils # (1.3-7.7) k/uL Lymphocytes # (1.0-4.8) k/uL Sodium 131 L (137-145) mmol/L BUN 52 H (9-20) mg/dL Creatinine 1.45 H (0.66-1.25) mg/dL Glucose 235 H (74-99) mg/dL POC Glucose (mg/dL) 73 L 69 L (75-99) mg/dL Calcium 7.4 L (8.4-10.2) mg/dL Magnesium 2.7 H (1.6-2.3) mg/dL 12/12/18 12/12/18 12/12/18 Range/Units 05:50 06:10 06:38 WBC (3.8-10.6) k/uL RBC (4.30-5.90) m/uL Hgb (13.0-17.5) gm/dL Hct (39.0-53.0) % RDW (11.5-15.5) % Plt Count (150-450) k/uL Neutrophils # (1.3-7.7) k/uL Lymphocytes # (1.0-4.8) k/uL Sodium (137-145) mmol/L BUN (9-20) mg/dL Creatinine (0.66-1.25) mg/dL Glucose (74-99) mg/dL POC Glucose (mg/dL) 150 H 137 H 134 H (75-99) mg/dL Calcium (8.4-10.2) mg/dL Magnesium (1.6-2.3) mg/dL 12/12/18 Range/Units 07:36 WBC (3.8-10.6) k/uL RBC (4.30-5.90) m/uL Hgb (13.0-17.5) gm/dL Hct (39.0-53.0) % RDW (11.5-15.5) % Plt Count (150-450) k/uL Neutrophils # (1.3-7.7) k/uL Lymphocytes # (1.0-4.8) k/uL Sodium (137-145) mmol/L BUN (9-20) mg/dL Creatinine (0.66-1.25) mg/dL Glucose (74-99) mg/dL POC Glucose (mg/dL) 100 H (75-99) mg/dL Calcium (8.4-10.2) mg/dL Magnesium (1.6-2.3) mg/dL - Imaging and Cardiology Chest x-ray: report reviewed, image reviewed Assessment and Plan Assessment: 1. Severe triple-vessel coronary artery disease, non-STEMI, status post CABG 4 2. Acute on chronic systolic and diastolic heart failure with ejection fraction 40-45% 3. Moderate left ventricular dysfunction with mild to moderate mitral valve regurgitation 4. Right-sided pleural effusion status post thoracentesis with removal of 900 mL transudate of fluid 5. Leukocytosis 6. Acute renal failure, resolving 7. History of coronary artery disease with previous stents to the LAD in 2004, evidence of remote lateral wall myocardial infarction 8. Recent diagnosis of atrial flutter status post cardioversion on Eliquis for chronic for anticoagulation 9. Hypertension 10. Hyperlipidemia 11. Uncontrolled diabetes mellitus with hemoglobin A1c 7.8% 12. 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 Peripheral artery disease 14. Chronic venous stasis ulcers to his right lower extremity 15. Prostate disorder 16. Postoperative acute blood loss anemia, status post transfusion 1 unit packed red blood cells 17. Postoperative bradycardia, possibly medication induced 18. Postoperative atrial flutter Plan: 1. Continue aspirin, statin, Plavix, hydralazine, beta alfred therapy. Will increase beta alfred therapy as tolerated. 2. Hold Amiodarone secondary to bradycardic episode after initiation. No anticoagulation yet until wires and tubes are pulled. 3. Bronchodilators per pulmonology. 4. No Lasix today. Will keep Torres catheter for 1 more day for strict accurate intake and output. Flomax started, will increase to home dose of twice daily. 5. Encourage incentive spirometry 10 times every hour while awake. 6. Increase activity as tolerated. PT/OT/cardiac rehab following. 7. Will monitor daily labs and x-rays. Electrolyte replacement per protocol. No further transfusion. 8. Pain control with current medication regimen. No narcotics. 9. Insulin management per primary care service. Patient's doses will need to be adjusted secondary to hypoglycemia. 10. GI/DVT prophylaxis with Protonix and heparin, SCDs. 11. Venous stasis ulcer wound care per Dr. Eldridge. 12. Will discontinue right FREDIS drain. Continue chest tubes for another 24 hours secondary to high output. 13. Midline catheter ordered, unable to be placed. PICC line ordered. Will discontinue Cordis once PICC line placed. 14. Patient will likely need rehab at discharge secondary to weakness, social work has ready been consulted for placement. 15. More recommendations based on patient's clinical course. Time with Patient: Greater than 30
[2018-12-12] MEDS: INSULIN ASPART (NovoLOG) 100 UNIT/ML VIAL SQ SCH ×4 (09:11→21:00)
[2018-12-12] MEDS: METOPROLOL TARTRATE 12.5 MG TAB PO SCH ×2 (09:19→21:49)
[2018-12-12] MEDS: CLOPIDOGREL 75 MG TAB PO SCH (09:19)
[2018-12-12] MEDS: TAMSULOSIN 0.4 MG CAP.ER.24H PO SCH ×2 (09:20→21:48)
[2018-12-12] MEDS: PANTOPRAZOLE 40 MG TABLET PO SCH (10:02)
[2018-12-12] MEDS: ATORVASTATIN 40 MG TAB PO SCH (10:03)
[2018-12-12] MEDS: ASPIRIN 81 MG PO SCH (10:03)
[2018-12-12] MEDS: TRIAMCINOLONE ACET 0.1% OINTMENT 15 GM TUBE TOPICAL SCH ×2 (10:05→22:49)
--- NOTE | 2018-12-12 10:51 | P.PN ---
Subjective Progress Note Date: 12/12/18 On 12/12/2018 and seeing this patient for a follow-up. The patient has severe triple-vessel disease and the patient has undergone non-ST segment elevation myocardial infarction and the patient is known to have chronic systolic and diastolic heart failure with ejection fraction of 40-45% with moderate LV dysfunction and [id number] mitral regurgitation. The patient has also undergone a right-sided pleural effusion thoracentesis with evacuation of 900 mL of transudative fluid. The patient is known to have multivessel coronary artery disease in addition to hypertension, hyperlipidemia and COPD which is considered to be severe with an FEV1 of 47% of predicted, peripheral vascular disease, chr onic venous ulcers in lower extremities, BPH and obesity. The patient undergone four-vessel bypass surgery. Today's postop day #4. He is doing well. He is on room air oxygen. The chest tubes on the left are still present as the patient is still having increased output from the chest tubes. The chest x-ray showing no evidence of any pneumothorax. The patient had a chest x-ray today that show ed no evidence of any pneumothorax and there is some mild bibasilar pleural effusion. No fever. No chills. No sweats. White cell count is at 15.2. Hemoglobin is at 7.7. He still has a Cordis in the right neck and this was replaced with a PICC line at a later stage. He has suffered acute kidney injury, and the creatinine is at 1.45. He is producing adequate amount of urine output. He had a hypoglycemic event yesterday based on the initiation of NPH at the regular dose and the patient was taken off the NPH for now. His blood sugars improved and it's up to 100 this morning. No altered mentation. He is using incentive spirometer. Hemodynamically stable. Still has a backup pacemaker in place. Objective - Vital Signs Vital signs: Vital Signs Temp 97.6 F 12/12/18 04:00 Pulse 78 12/12/18 07:55 Resp 12 12/12/18 07:00 BP 122/58 12/12/18 07:00 Pulse Ox 97 12/12/18 07:00 Intake & Output 12/11/18 12/12/18 12/12/18 18:59 06:59 18:59 Intake Total 702 576 Output Total 967 865 110 Balance -265 -289 -110 Weight 94.8 kg 95.8 kg Intake: IV 402 326 CO/CI 60 HD pressure bags 102 66 Lactated Ringers 1,000 ml 240 260 @ 20 mls/hr IV .Q24H ON [facility] OF [facility] Rx#:[id number] Intake, IV Titration 100 Amount Calcium Gluconate 1 gm In 100 Sodium Chloride 0.9% 100 ml @ 100 mls/hr IVPB ONCE ONE Rx#:[id number] Oral 200 250 Output: Chest Tube Drainage 579 320 110 Left pleural 360 200 30 Right Pleural 219 120 80 Drainage 95 110 Left Calf 65 100 Right Calf 30 10 Urine 293 435 Other: Voiding Method Indwelling Catheter Indwelling Catheter ABP, PAP, CO, CI - Last Documented Arterial Blood Pressure 140/54 Pulmonary Artery Pressure 49/20 Cardiac Output 4.2 Cardiac Index 2.3 - Exam - Constitutional General appearance: Present: cooperative, no acute distress, obese - Respiratory Details: Lungs sounds diminished bilaterally. Respirations even, nonlabored. Currently on room air with oxygen saturation 97%. Barely able to achieve 500 mL on his incentive spirometry, patient does take deeper breaths without the incentive spirometry. Strong cough. Left pleural chest tube to continuous wall suction, 40 mL serous drainage overnight, 590 mL in the last 24 hours. Right pleural chest tube to continuous wall suction, 60 mL serous drainage overnight, 400 mL in the last 24 hours. No air leak present. - Cardiovascular Details: S1, S2 present. Regular rate and rhythm, sinus rhythm on telemetry, occasional atrial flutter. Sternum stable. A/V epicardial pacemaker wires present, AAI mode with a backup rate 50 bpm. Palpable bilateral upper extremity pulses present, Doppler bilateral lower extremity pulses. Generalized edema present. Right internal jugular Cordis present. Heart hugger in place with patient unable to demonstrate appropriate use. SCDs, antiembolism stockings present. - Gastrointestinal Gastrointestinal Comment(s): Abdomen soft, nontender, nondistended, obese. Active bowel sounds present 4 quadrants. Tolerating diet. Positive flatus, negative bowel movement. - Genitourinary Genitourinary Comment(s): Torres present draining clear, yellow urine. Output 30-40 mL/h overnight. - Integumentary Integumentary Comment(s): Skin is warm and dry with evidence of good perfusion. Anterior chest incision well approximated covered with dry intact dressing. Bilateral lower extremity EVH site well approximated, FREDIS drains present with 100 mL serous drainage from left FREDIS and 10 mL surgery from right FREDIS overnight. - Neurologic Neurologic: Present: CNII-XII intact - Musculoskeletal Musculoskeletal: Present: generalized weakness, strength equal bilaterally - Psychiatric Psychiatric Comment(s): Patient is very sleepy but does arouse and is oriented to person place time and situation. He does follow all commands. Psychiatric: Present: appropriate affect - Labs CBC & Chem 7: 12/12/18 04:40 12/12/18 04:40 Labs: Abnormal Lab Results - Last 24 Hours (Table) 12/11/18 12/11/18 12/11/18 Range/Units 12:03 20:18 20:36 WBC (3.8-10.6) k/uL RBC (4.30-5.90) m/uL Hgb (13.0-17.5) gm/dL Hct (39.0-53.0) % RDW (11.5-15.5) % Plt Count (150-450) k/uL Neutrophils # (1.3-7.7) k/uL Lymphocytes # (1.0-4.8) k/uL Sodium (137-145) mmol/L BUN (9-20) mg/dL Creatinine (0.66-1.25) mg/dL Glucose (74-99) mg/dL POC Glucose (mg/dL) 141 H 68 L 68 L (75-99) mg/dL Calcium (8.4-10.2) mg/dL Magnesium (1.6-2.3) mg/dL 12/12/18 12/12/18 12/12/18 Range/Units 04:05 04:20 04:40 WBC 15.2 H (3.8-10.6) k/uL RBC 2.90 L (4.30-5.90) m/uL Hgb 7.7 L (13.0-17.5) gm/dL Hct 24.3 L (39.0-53.0) % RDW 15.7 H (11.5-15.5) % Plt Count 131 L (150-450) k/uL Neutrophils # 13.6 H (1.3-7.7) k/uL Lymphocytes # 0.4 L (1.0-4.8) k/uL Sodium (137-145) mmol/L BUN (9-20) mg/dL Creatinine (0.66-1.25) mg/dL Glucose (74-99) mg/dL POC Glucose (mg/dL) 29 L 136 H (75-99) mg/dL Calcium (8.4-10.2) mg/dL Magnesium (1.6-2.3) mg/dL 12/12/18 12/12/18 12/12/18 Range/Units 04:40 05:10 05:27 WBC (3.8-10.6) k/uL RBC (4.30-5.90) m/uL Hgb (13.0-17.5) gm/dL Hct (39.0-53.0) % RDW (11.5-15.5) % Plt Count (150-450) k/uL Neutrophils # (1.3-7.7) k/uL Lymphocytes # (1.0-4.8) k/uL Sodium 131 L (137-145) mmol/L BUN 52 H (9-20) mg/dL Creatinine 1.45 H (0.66-1.25) mg/dL Glucose 235 H (74-99) mg/dL POC Glucose (mg/dL) 73 L 69 L (75-99) mg/dL Calcium 7.4 L (8.4-10.2) mg/dL Magnesium 2.7 H (1.6-2.3) mg/dL 12/12/18 12/12/18 12/12/18 Range/Units 05:50 06:10 06:38 WBC (3.8-10.6) k/uL RBC (4.30-5.90) m/uL Hgb (13.0-17.5) gm/dL Hct (39.0-53.0) % RDW (11.5-15.5) % Plt Count (150-450) k/uL Neutrophils # (1.3-7.7) k/uL Lymphocytes # (1.0-4.8) k/uL Sodium (137-145) mmol/L BUN (9-20) mg/dL Creatinine (0.66-1.25) mg/dL Glucose (74-99) mg/dL POC Glucose (mg/dL) 150 H 137 H 134 H (75-99) mg/dL Calcium (8.4-10.2) mg/dL Magnesium (1.6-2.3) mg/dL 12/12/18 Range/Units 07:36 WBC (3.8-10.6) k/uL RBC (4.30-5.90) m/uL Hgb (13.0-17.5) gm/dL Hct (39.0-53.0) % RDW (11.5-15.5) % Plt Count (150-450) k/uL Neutrophils # (1.3-7.7) k/uL Lymphocytes # (1.0-4.8) k/uL Sodium (137-145) mmol/L BUN (9-20) mg/dL Creatinine (0.66-1.25) mg/dL Glucose (74-99) mg/dL POC Glucose (mg/dL) 100 H (75-99) mg/dL Calcium (8.4-10.2) mg/dL Magnesium (1.6-2.3) mg/dL Assessment and Plan Plan: 1 multivessel coronary artery disease post four-vessel bypass surgery and the patient is postop day #4. Patient is also status post non-STEMI 2 CHF with an ejection fraction of 40-45%. The patient has a preop systolic and diastolic heart failure 3 postoperative left-sided chest tube which is still in place. Output is considerably high and the chest will Be kept in place and there is no evidence of pneumothorax 4 acute kidney injury, nonoliguric 5 recent diagnosis of atrial flutter was cardioversion and the patient is on long-term anticoagulation with Eliquis 6 diabetes mellitus with an episode of hypoglycemia currently on insulin sliding scale coverage and NPH insulin has been discontinued 7 hypertension 8 hyperlipidemia 9 COPD severe. Stable an FEV1 of 47% of predicted 10 acute hypoxic respiratory failure following thoracotomy bypass surgery, recovered currently on room air oxygen 11 chronic venous stasis in lower extremities bilaterally 12 BPH 13 postoperative blood loss anemia and the patient has received only 1 unit of packed RBC postop 14 postoperative bradycardia, amiodarone-induced Plan Inserted PICC line. Monitor renal function. Monitor hemoglobin. Monitor cardiac rhythm. Incentive spirometer. Keep the chest tube in place. We'll continue to follow.
[2018-12-12 12:42] LABS: Glucose,Whole Blood 88 mg/dL (75-99)
[2018-12-12] MEDS: LACTATED RINGERS 1,000 ML IV SCH (13:29)
[2018-12-12] MEDS: ACETAMINOPHEN TAB 325 MG TAB PO PRN ×2 (13:40→21:00)
[2018-12-12] MEDS ORDERED: LIDOCAINE 1% INJ 10MG/ML (20 ML MDV) SQ ONE (14:34)
--- NOTE | 2018-12-12 15:27 | XR ---
EXAMINATION TYPE: XR chest 1V portable DATE OF EXAM: 12/12/2018 COMPARISON: Prior chest x-ray same date earlier time HISTORY: PICC line placement TECHNIQUE: 4 frontal views of the chest obtained. FINDINGS: Initial image shows PICC line coursing over the right shoulder and extending retrograde in to the right upper extremity. Technique is apical lordotic. Bilateral chest tubes noted. Image shows PICC line in a similar position. Third image shows the right chest with the PICC line coi led over the right shoulder. Fourth image shows interval repositioning the distal tip near the conflu ence of the cephalic and axillary veins. IMPRESSION: PICC line positioning as described.
--- NOTE | 2018-12-12 15:40 | P.PN ---
Subjective Patient is resting in bed. He looks tired. But no chest discomfort no dizziness lightheadedness. He is alert and oriented He still has chest tubes in situ No further bradycardia noted heart rates in the Blood pressure 115/62 mmHg pulse rate in the 80s No respiratory distress Breath sounds are reduced bilaterally Heart sounds are soft Extremities warm Impression Coronary artery disease status post coronary artery bypass grafting following ac jesús myocardial infarction Intraoperative bleeding. Impression still has chest tubes in place. He he has received packed red cells. Hemoglobin is stable, no further drop No further bradycardia Suggest Aspirin 81 mg daily atorvastatin 40 mg daily Plavix 75 mg daily Hydralazine 25 mg every 8 hours Metoprolol 12.5 mg twice daily Continue postprocedure ICU and CT surgery care Objective - Vital Signs Vital signs: Vital Signs Temp 97.6 F 12/12/18 08:00 Pulse 88 12/12/18 11:51 Resp 17 12/12/18 11:00 BP 116/93 12/12/18 11:00 Pulse Ox 97 12/12/18 11:00 Intake & Output 12/11/18 12/12/18 12/12/18 18:59 06:59 18:59 Intake Total 702 576 701 Output Total 967 865 790 Balance -265 -289 -89 Weight 94.8 kg 95.8 kg Intake: IV 402 326 161 CO/CI 60 HD pressure bags 102 66 21 Lactated Ringers 1,000 ml 240 260 140 @ 20 mls/hr IV .Q24H [facility] Rx#:[id number] Intake, IV Titration 100 Amount Calcium Gluconate 1 gm In 100 Sodium Chloride 0.9% 100 ml @ 100 mls/hr IVPB ONCE ONE Rx#:[id number] Oral 200 250 540 Output: Chest Tube Drainage 579 320 460 Left pleural 360 200 220 Right Pleural 219 120 240 Drainage 95 110 60 Left Calf 65 100 30 Right Calf 30 10 30 Urine 293 435 270 Other: Voiding Method Indwelling Catheter Indwelling Catheter ABP, PAP, CO, CI - Last Documented Arterial Blood Pressure 140/54 Pulmonary Artery Pressure 49/20 Cardiac Output 4.2 Cardiac Index 2.3 - Labs CBC & Chem 7: 12/12/18 04:40 12/12/18 04:40 Labs: Abnormal Lab Results - Last 24 Hours (Table) 12/11/18 12/11/18 12/12/18 Range/Units 20:18 20:36 04:05 WBC (3.8-10.6) k/uL RBC (4.30-5.90) m/uL Hgb (13.0-17.5) gm/dL Hct (39.0-53.0) % RDW (11.5-15.5) % Plt Count (150-450) k/uL Neutrophils # (1.3-7.7) k/uL Lymphocytes # (1.0-4.8) k/uL Sodium (137-145) mmol/L BUN (9-20) mg/dL Creatinine (0.66-1.25) mg/dL Glucose (74-99) mg/dL POC Glucose (mg/dL) 68 L 68 L 29 L (75-99) mg/dL Calcium (8.4-10.2) mg/dL Magnesium (1.6-2.3) mg/dL 12/12/18 12/12/18 12/12/18 Range/Units 04:20 04:40 04:40 WBC 15.2 H (3.8-10.6) k/uL RBC 2.90 L (4.30-5.90) m/uL Hgb 7.7 L (13.0-17.5) gm/dL Hct 24.3 L (39.0-53.0) % RDW 15.7 H (11.5-15.5) % Plt Count 131 L (150-450) k/uL Neutrophils # 13.6 H (1.3-7.7) k/uL Lymphocytes # 0.4 L (1.0-4.8) k/uL Sodium 131 L (137-145) mmol/L BUN 52 H (9-20) mg/dL Creatinine 1.45 H (0.66-1.25) mg/dL Glucose 235 H (74-99) mg/dL POC Glucose (mg/dL) 136 H (75-99) mg/dL Calcium 7.4 L (8.4-10.2) mg/dL Magnesium 2.7 H (1.6-2.3) mg/dL 12/12/18 12/12/18 12/12/18 Range/Units 05:10 05:27 05:50 WBC (3.8-10.6) k/uL RBC (4.30-5.90) m/uL Hgb (13.0-17.5) gm/dL Hct (39.0-53.0) % RDW (11.5-15.5) % Plt Count (150-450) k/uL Neutrophils # (1.3-7.7) k/uL Lymphocytes # (1.0-4.8) k/uL Sodium (137-145) mmol/L BUN (9-20) mg/dL Creatinine (0.66-1.25) mg/dL Glucose (74-99) mg/dL POC Glucose (mg/dL) 73 L 69 L 150 H (75-99) mg/dL Calcium (8.4-10.2) mg/dL Magnesium (1.6-2.3) mg/dL 12/12/18 12/12/18 12/12/18 Range/Units 06:10 06:38 07:36 WBC (3.8-10.6) k/uL RBC (4.30-5.90) m/uL Hgb (13.0-17.5) gm/dL Hct (39.0-53.0) % RDW (11.5-15.5) % Plt Count (150-450) k/uL Neutrophils # (1.3-7.7) k/uL Lymphocytes # (1.0-4.8) k/uL Sodium (137-145) mmol/L BUN (9-20) mg/dL Creatinine (0.66-1.25) mg/dL Glucose (74-99) mg/dL POC Glucose (mg/dL) 137 H 134 H 100 H (75-99) mg/dL Calcium (8.4-10.2) mg/dL Magnesium (1.6-2.3) mg/dL
--- NOTE | 2018-12-12 15:43 | IR ---
PICC LINE PLACEMENT: HISTORY: Infection requiring long-term antibiotic therapy PROCEDURE: Ultrasound guidance of PICC line placement. CLIMBING GUIDE: Dr. Mcfarland. COMPLICATIONS: None ANESTHESIA: 1. 1% Lidocaine locally. FINDINGS/TECHNIQUE: The procedure was explained to the patient. The risks, complications, benefits and alternatives were discussed and any questions were answered. Informed consent was obtained. The patient was placed supine on the fluoroscopic table and prepped and draped in the usual sterile fas ion. Utilizing a 21 gauge needle and sonographic guidance, access in the left basilic vein was achi eved and there is placement of a 0.018 guidewire. The vein is patent. A 5-F. sheath was placed over the guidewire. The guidewire and dilator were removed and a 5-F. Double lumen PICC line was placed through the sheath with the chest x-ray confirming the tip at the level of the SVC. The sheath was r emoved, the catheter was flushed and sutured into position. The patient was stable throughout the pr ocedure and remained stable upon discharge from the Department of Radiology. The vein puncture was patent under ultrasound. A phillips scale image was obtained to document patency of the vein punctured. All elements of the maximal barrier technique were utilized. IMPRESSION: 1. Successful PICC line placement under ultrasound performed bedside within the ICU.
[2018-12-12] MEDS ORDERED: FUROSEMIDE 10 MG/ML 2 ML VIAL IV ONE (16:00)
[2018-12-12] MEDS ORDERED: ALBUMIN HUMAN 25% 50 ML in EMPTY BAG 1 BAG IVPB ONE (16:30)
--- NOTE | 2018-12-12 16:38 | P.CONS ---
History of Present Illness - Chief Complaint Cardiac debility - History of Present Illness I had the opportunity to see patient for inpatient rehab consultation with regard to cardiac debility. He was admitted to [facility] November 30 with increasing shortness of breath. Workup revealed non-STEMI and CHF exacerbation. Seen in consultation by Drs. Walker and cardiology. Chest x-rays followed for basilar edema and PICC line. On 12/09, patient underwent 4 vessel coronary bypass and amputation left atrial appendage. PT reports maximal assistance to person for bed mobility and standing. Two-person assistance for gait 76 feet. OT reports maximal assistance for upper dressing to person exposes lower dressing, bathing, toileting and functional mobility. Fatigue is a problem. Previous functional history as elicited from patient: 78-year-old right-handed white male who is single lives in one floor home alone. Retired. Describes independent with own cooking, laundry, driving, standing shower and gait without device. Denies tobacco or alcohol. Dr. Saida Pires, [place] [facility]. Family history of mother with diabetes. Review of Systems Review of systems: Skin: Patient reports sores on legs. ENT: Denies sneezes or discharge. Eyes: Denies discharge or photophobia. Cardiac: Mild to moderate chest discomfort. Pulmonary: Mild to moderate shortness of breath. Gastrointestinal: Denies nausea, emesis, constipation, diarrhea. Genitourinary: Denies discharge or frequency. Musculoskeletal: Denies muscle or bone aches. Neurologic: Generalized weakness. Endocrine: Denies shakes or sweats. Oncology: Denies cancers. Dermatologic: Denies rash, itching, pruritus. ALLERGY/immunology: Denies sneezes, rashes. Past Medical History Past Medical History: Atrial Flutter, Coronary Artery Disease (CAD), Heart Failure, Diabetes Mellitus, Hyperlipidemia, Hypertension, Myocardial Infarction ([place]), Osteoarthritis (OA), Prostate Disorder Additional Past Medical History / Comment(s): See Dr Epps's H&P History of Any Multi-Drug Resistant Organisms: None Reported Past Surgical History: Appendectomy, Heart Catheterization With Stent Additional Past Surgical History / Comment(s): Cataracts Past Anesthesia/Blood Transfusion Reactions: No Reported Reaction Date of Last Stent Placement:: unsure Past Psychological History: No Psychological Hx Reported Additional Psychological History / Comment(s): Single. No children. No pets. Remote tobacco use. No international travel since his experience. Worked on [employer] Smoking Status: Never smoker Past Alcohol Use History: None Reported Additional Past Alcohol Use History / Comment(s): quit drinking 1974 Past Drug Use History: None Reported - Past Family History Mother Family Medical History: Myocardial Infarction ([place]) Additional Family Medical History / Comment(s): age 64 Medications and Allergies Home Medications Medication Instructions Recorded Confirmed Type Apixaban [Eliquis] 5 mg PO BID 08/09/18 11/30/18 History Furosemide [Lasix] 40 mg PO DAILY 08/09/18 11/30/18 History Potassium Chloride [K-Tab ER] 10 meq PO BID 08/09/18 11/30/18 History Spironolactone 12.5 mg PO DAILY 08/09/18 11/30/18 History Tamsulosin [Flomax] 0.4 mg PO BID 08/09/18 11/30/18 History glipiZIDE [Glucotrol] 10 mg PO AC-BID 08/09/18 11/30/18 History metFORMIN HCL 1,000 mg PO DAILY 08/09/18 11/30/18 History Metoprolol Tartrate [Lopressor] 50 mg PO BID 08/12/18 11/30/18 History Insulin NPH Hum/Reg Insulin Hm 60 unit SQ BID 11/30/18 11/30/18 History [Novolin 70-30 Flexpen] Isosorbide Mononitrate ER [Imdur] 90 mg PO DAILY 11/30/18 11/30/18 History Rosuvastatin Calcium 40 mg PO DAILY 11/30/18 11/30/18 History amLODIPine [Norvasc] 5 mg PO BID 11/30/18 11/30/18 History Allergies Allergy/AdvReac Type Severity Reaction Status Date / Time atorvastatin [From Lipitor] Allergy Unknown Verified 11/30/18 12:24 Physical Exam Vitals: Vital Signs Temp Pulse Resp BP Pulse Ox 12/12/18 11:51 88 12/12/18 11:43 80 12/12/18 11:00 82 17 116/93 97 12/12/18 10:00 85 14 120/64 97 12/12/18 09:00 82 19 115/62 98 12/12/18 08:00 97.6 F 84 12 129/64 98 12/12/18 07:55 78 12/12/18 07:46 77 12/12/18 07:00 78 12 122/58 97 12/12/18 06:00 82 8 L 109/58 96 12/12/18 05:00 68 18 142/66 97 12/12/18 04:00 97.6 F 79 14 133/57 97 12/12/18 03:00 76 18 127/61 98 12/12/18 02:00 74 13 108/55 95 12/12/18 01:00 68 22 108/59 98 12/12/18 00:00 98.0 F 66 21 101/65 98 12/11/18 23:01 67 20 101/65 97 12/11/18 23:00 70 21 107/66 97 12/11/18 22:00 73 23 114/68 98 12/11/18 21:00 87 17 112/66 98 12/11/18 20:40 66 12/11/18 20:29 62 12/11/18 20:00 98.2 F 84 22 101/69 98 12/11/18 19:00 59 L 22 110/62 99 12/11/18 18:00 59 L 23 127/62 98 12/11/18 17:00 78 13 128/66 97 Intake and Output 12/12/18 12/12/18 12/12/18 06:59 14:59 22:59 Intake Total 222 701 Output Total 510 790 Balance -288 -89 Intake: IV 222 161 HD pressure bags 42 21 Lactated Ringers 1,000 ml 180 140 @ 20 mls/hr IV .Q24H [facility] Rx#:[id number] Oral 540 Output: Chest Tube Drainage 100 460 Left pleural 40 220 Right Pleural 60 240 Drainage 110 60 Left Calf 100 30 Right Calf 10 30 Urine 300 270 Other: Voiding Method Indwelling Catheter Weight 95.8 kg Skin: Good color, texture, turgor. General: Overweight build and comfortable appearance. Head: Normocephalic, atraumatic. Eyes: Symmetric. Pupils equal round. Ears: Symmetric. Hearing within normal limits. Mouth: Clear. Neck: Supple. Carotid without bruit. Cardiac: Regular rate and rhythm. Lungs: Clear anteriorly and posteriorly. Abdomen: Soft active nontender. Extremities: Normal tone. 1-2+ edema lower legs. Neurological: Mental status: Alert, cooperative, pleasant. Cranial nerves: Symmetric facial tone and trapezius. Motor: Can elevate all 4 limbs. Sensation: Intact throughout. DTRs: Symmetric and equal throughout. Mobility: Sits with physical assistance. Results CBC & Chem 7: 12/12/18 04:40 12/12/18 04:40 Labs: Abnormal Lab Results - Last 24 Hours (Table) 12/11/18 12/11/18 12/12/18 Range/Units 20:18 20:36 04:05 WBC (3.8-10.6) k/uL RBC (4.30-5.90) m/uL Hgb (13.0-17.5) gm/dL Hct (39.0-53.0) % RDW (11.5-15.5) % Plt Count (150-450) k/uL Neutrophils # (1.3-7.7) k/uL Lymphocytes # (1.0-4.8) k/uL Sodium (137-145) mmol/L BUN (9-20) mg/dL Creatinine (0.66-1.25) mg/dL Glucose (74-99) mg/dL POC Glucose (mg/dL) 68 L 68 L 29 L (75-99) mg/dL Calcium (8.4-10.2) mg/dL Magnesium (1.6-2.3) mg/dL 12/12/18 12/12/18 12/12/18 Range/Units 04:20 04:40 04:40 WBC 15.2 H (3.8-10.6) k/uL RBC 2.90 L (4.30-5.90) m/uL Hgb 7.7 L (13.0-17.5) gm/dL Hct 24.3 L (39.0-53.0) % RDW 15.7 H (11.5-15.5) % Plt Count 131 L (150-450) k/uL Neutrophils # 13.6 H (1.3-7.7) k/uL Lymphocytes # 0.4 L (1.0-4.8) k/uL Sodium 131 L (137-145) mmol/L BUN 52 H (9-20) mg/dL Creatinine 1.45 H (0.66-1.25) mg/dL Glucose 235 H (74-99) mg/dL POC Glucose (mg/dL) 136 H (75-99) mg/dL Calcium 7.4 L (8.4-10.2) mg/dL Magnesium 2.7 H (1.6-2.3) mg/dL 12/12/18 12/12/18 12/12/18 Range/Units 05:10 05:27 05:50 WBC (3.8-10.6) k/uL RBC (4.30-5.90) m/uL Hgb (13.0-17.5) gm/dL Hct (39.0-53.0) % RDW (11.5-15.5) % Plt Count (150-450) k/uL Neutrophils # (1.3-7.7) k/uL Lymphocytes # (1.0-4.8) k/uL Sodium (137-145) mmol/L BUN (9-20) mg/dL Creatinine (0.66-1.25) mg/dL Glucose (74-99) mg/dL POC Glucose (mg/dL) 73 L 69 L 150 H (75-99) mg/dL Calcium (8.4-10.2) mg/dL Magnesium (1.6-2.3) mg/dL 12/12/18 12/12/18 12/12/18 Range/Units 06:10 06:38 07:36 WBC (3.8-10.6) k/uL RBC (4.30-5.90) m/uL Hgb (13.0-17.5) gm/dL Hct (39.0-53.0) % RDW (11.5-15.5) % Plt Count (150-450) k/uL Neutrophils # (1.3-7.7) k/uL Lymphocytes # (1.0-4.8) k/uL Sodium (137-145) mmol/L BUN (9-20) mg/dL Creatinine (0.66-1.25) mg/dL Glucose (74-99) mg/dL POC Glucose (mg/dL) 137 H 134 H 100 H (75-99) mg/dL Calcium (8.4-10.2) mg/dL Magnesium (1.6-2.3) mg/dL Assessment and Plan (1) Acute systolic (congestive) heart failure Current Visit: Yes Status: Acute Code(s): I50.21 - ACUTE SYSTOLIC (CONGESTIVE) HEART FAILURE SNOMED Code(s): 339455082 (2) Myocardial infarction Current Visit: Yes Status: Acute Code(s): I21.9 - ACUTE MYOCARDIAL INFARCTION, UNSPECIFIED SNOMED Code(s): 94282932 (3) Venous stasis ulcer of right lower leg with edema of right lower leg Current Visit: Yes Status: Acute Code(s): I83.019 - VARICOSE VEINS OF RIGHT LOWER EXTREMITY W ULCER OF UNSP SITE; I83.891 - VARICOSE VEINS OF R LOW EXTREM WITH OTHER COMPLICATIONS; L97.919 - NON-PRS CHRONIC ULC UNSP PRT OF R LOW LEG W UNSP SEVERITY; R60.9 - EDEMA, UNSPECIFIED SNOMED Code(s): 84846590680908994 Plan: Impression: 1. Cardiac debility. 2. Acute non-STEMI. Status post coronary bypassing. 3. Acute on chronic CHF. 4. Lower extremity ulcers. 5. Diabetes. 6. Hypertension. 7. Dyslipidemia. 8. Coronary disease with history of IL. 9. Atrial flutter. 10. Silvia arthritis. Comments and plan: PT and OT are ongoing. Safety concerns noted. Patient reports he could have supportive brother and [id number] live local. There is another sister lives local but currently in hospital or inpatient rehab.
[2018-12-12 17:29] LABS: Glucose,Whole Blood 94 mg/dL (75-99)
--- NOTE | 2018-12-12 18:10 | PN ---
PROGRESS NOTE DATE OF SERVICE: 12/12/2018 This 78-year-old gentleman who was admitted with CAD/CABG is improving significantly. Patient had blood sugars which are fluctuating at this time. The p.o. intake appears to be less yesterday and the patient had some hypoglycemic episodes. The blood sugar was found to be 86 and the patient being closely monitored. The patient at home patient was taking insulin Novolin 70/30 60 units subcu b.i.d. PAST MEDICAL HISTORY: Reviewed. REVIEW OF SYSTEMS: CARDIOVASCULAR: No angina or palpitations. Respiration: As mentioned earlier. GI as mentioned earlier. : No dysuria. Central nervous system: As mentioned earlier. CURRENT MEDICATIONS: Reviewed and include: 1. Tylenol 320 q.4 hours p.r.n. 2. DuoNeb q.i.d. and p.r.n. 3. Aspirin 81 mg. 4. Lipitor 40 mg daily. 5. Cepacol. 6. Dulcolax. 7. Plavix. 8. Aspirin. 9. NovoLog. 10.Lactated Ringers. 11.Reglan. 12.Lopressor 12.5 mg b.i.d. 13.Replacement protocols. 14.Zofran. 15.Protonix. 16.Senokot. 17.Flomax. 18.Kenalog. PHYSICAL EXAM: Patient is alert, oriented x3. The pulse is 82, blood pressure 160/93, respirations 17, temperature normal. Pulse ox 97% on oxygen. HEENT: Conjunctivae normal. NECK: No jugular venous distention. CARDIOVASCULAR: S1, S2 muffled. RESPIRATORY: Breath sounds diminished in the bases. A few scattered rhonchi and crackles. Expiratory wheezing. ABDOMEN: Soft. Nontender. CENTRAL NERVOUS SYSTEM: No focal deficits. LAB STUDIES: WBC 15.2, hemoglobin is 7.7 and sodium is 131, creatinine is 1.45 and magnesium is 2.7. ASSESSMENT: 1. Status post coronary artery disease, coronary artery bypass grafting. 2. History of recent acute non ST segment elevation myocardial infarction, present on admission. 3. Diabetes mellitus type 2 with hyper and hypoglycemia. 4. Congestive heart failure acute exacerbation with acute on chronic systolic dysfunction. 5. History of coronary artery disease. 6. History of congestive heart failure. 7. History of atrial fibrillation. 8. Diabetes mellitus type 2. 9. Hyperlipidemia. 10.History of anemia. 11.Increased WBC. 12.Increased creatinine with possible chronic kidney disease stage 3. RECOMMENDATIONS AND DISCUSSION: Recommend to continue current medications, monitoring and symptomatic treatment. Otherwise, at this time, I recommend initiate small dose of 70/30 and continue to monitor and we will continue with the Accu-Cheks a.c. and also encourage p.o. feeds and further recommendations to follow. MMODL / IJN: [id number] /
[2018-12-12 20:36] LABS: Glucose,Whole Blood 105 mg/dL (75-99)
[2018-12-12] MEDS ORDERED: TAMSULOSIN 0.4 MG CAP.ER.24H PO SCH ×2 (21:00)
[2018-12-12] MEDS: INSULIN NPH 300 UNIT/3 ML VIAL SQ SCH (21:01)
[2018-12-12] MEDS: SENNOSIDES-DOCUSATE SODIUM 1 EACH TAB PO SCH (21:48)
[2018-12-13] MEDS: hydrALAZINE HCL 25 MG TAB PO SCH ×3 (00:21→17:41)
[2018-12-13] MEDS: HEPARIN SODIUM,PORCINE 5,000 UNIT/ML 1 ML VIAL SQ SCH ×4 (00:33→23:27)
[2018-12-13 02:04] LABS: Glucose,Whole Blood 67 mg/dL (75-99)
[2018-12-13] MEDS: ACETAMINOPHEN TAB 325 MG TAB PO PRN ×4 (02:10→19:31)
[2018-12-13 02:20] LABS: Glucose,Whole Blood 74 mg/dL (75-99)
[2018-12-13 02:55] LABS: Glucose,Whole Blood 103 mg/dL (75-99)
[2018-12-13] MEDS: BISACODYL 10 MG SUPP RECTAL PRN (05:02)
[2018-12-13 05:03] LABS: Anisocytosis Slight; HCT 22.3 % (39.0-53.0); HGB 7.1 gm/dL (13.0-17.5); MCH 26.6 pg (25.0-35.0); MCHC 31.9 g/dL (31.0-37.0); MCV 83.5 fL (80.0-100.0); Mean Platelet Volume 7.3; Platelet Count 133 k/uL (150-450); RBC 2.68 m/uL (4.30-5.90); RDW 16.3 % (11.5-15.5); WBC 12.1 k/uL (3.8-10.6)
[2018-12-13 05:41] LABS: Ionized Calcium 4.6 mg/dL (4.5-5.3)
[2018-12-13 05:50] LABS: Calcium 7.6 mg/dL (8.4-10.2); Magnesium 2.7 mg/dL (1.6-2.3); Potassium 5.1 mmol/L (3.5-5.1)
[2018-12-13] MEDS ORDERED: FUROSEMIDE 10 MG/ML 4 ML VIAL IV STA (07:01)
[2018-12-13 07:14] LABS: Glucose,Whole Blood 75 mg/dL (75-99)
--- NOTE | 2018-12-13 07:30 | XR ---
EXAMINATION TYPE: XR chest 1V portable DATE OF EXAM: 12/13/2018 HISTORY: Shortness of breath. COMPARISON: 12/12/2018 TECHNIQUE: Single view of the chest is submitted. FINDINGS: Bilateral chest tubes remain unchanged. No evidence for sizable pneumothorax. Right PICC line is with in the right axillary region. Patchy infiltrate right lower lobe and the left perihilar region appear unchanged. The heart is stable. Hilar and mediastinal structures are within normal limits. Degenerative changes are seen of the dorsal spine. IMPRESSION: 1. Essentially stable chest.
[2018-12-13] MEDS: TAMSULOSIN 0.4 MG CAP.ER.24H PO SCH ×2 (07:54→21:30)
[2018-12-13] MEDS: ATORVASTATIN 40 MG TAB PO SCH (07:54)
[2018-12-13] MEDS: ASCORBIC ACID 500 MG TAB PO SCH ×2 (07:54→17:42)
[2018-12-13] MEDS: METOPROLOL TARTRATE 12.5 MG TAB PO SCH (07:54)
[2018-12-13] MEDS: FERROUS SULFATE 325 MG TAB PO SCH ×2 (07:54→17:42)
[2018-12-13] MEDS: CLOPIDOGREL 75 MG TAB PO SCH (07:54)
[2018-12-13] MEDS: INSULIN ASPART (NovoLOG) 100 UNIT/ML VIAL SQ SCH ×4 (07:55→21:30)
[2018-12-13] MEDS: PANTOPRAZOLE 40 MG TABLET PO SCH (07:55)
[2018-12-13] MEDS: ASPIRIN 81 MG PO SCH (07:55)
--- NOTE | 2018-12-13 08:12 | P.PN ---
Subjective Progress Note Date: 12/13/18 Principal diagnosis: Severe triple vessel coronary artery disease, non-STEMI, acute on chronic systolic and diastolic heart failure with ejection fraction 40-45%, moderate left ventricular dysfunction with mild to moderate mitral valve regurgitation, right-sided pleural effusion status post thoracentesis with removal of 900 mL transudative fluid. 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 Preoperative leukocytosis, acute renal failure. POD #5 urgent quadruple coronary artery bypass grafting using the left internal mammary artery to the left anterior descending artery, reverse saphenous vein graft from the aorta to the first diagonal artery, reverse saphenous vein graft from the aorta to the first obtuse marginal artery, reverse saphenous vein graft from the aorta to the distal posterior lateral branch of the circumflex artery which is a dominant artery, bilateral pulmonary vein isolation using the radiofrequency bipolar clamp from [employer], intraoperative exclusion of the left atrial appendage using a 40 mm AtriClip, intraoperative transesophageal echocardiogram and epi-aortic scanning, and intraoperative graft flow m easurements using the ASYM III system, endoscopic harvesting of bilateral saphenous veins from the groin to the knee level. Postoperative acute blood loss anemia, expected outcome of surgery given he modilution and cardiopulmonary bypass pump. Postoperative bradycardia, unexpected but potential outcome, likely medication induced Postoperative atrial flutter, expected outcome The patient's currently sitting up in a recliner in no acute distress in the intensive care unit. Denies any pain or shortness of breath, does continue to complain of being cold. Currently in normal sinus rhythm, hemodynamically stable on no inotropes or pressors. Ambulated in the hallway 3 times yesterday with PT, patient required two-person assist. PICC line placed yesterday. Objective - Vital Signs Vital signs: Vital Signs Temp 97.9 F 12/13/18 04:00 Pulse 76 12/13/18 07:00 Resp 17 12/13/18 07:00 BP 112/59 12/13/18 07:00 Pulse Ox 97 12/13/18 07:00 Intake & Output 12/12/18 12/13/18 12/13/18 18:59 06:59 18:59 Intake Total 774 560 Output Total 1013 9595 Balance -241 -895 Weight 97 kg Intake: IV 234 Albumin Human 25% 50 ml 50 In Empty Bag 1 bag @ 50 mls/hr IVPB ONCE ONE Rx#: [id number] HD pressure bags 24 Lactated Ringers 1,000 ml 160 @ 20 mls/hr IV .Q24H [facility] Rx#:[id number] Oral 540 560 Output: Chest Tube Drainage 460 540 Left pleural 220 230 Right Pleural 240 310 Drainage 60 105 Left Calf 30 105 Right Calf 30 Urine 495 810 Other: Voiding Method Indwelling Catheter Indwelling Catheter ABP, PAP, CO, CI - Last Documented Arterial Blood Pressure 140/54 Pulmonary Artery Pressure 49/20 Cardiac Output 4.2 Cardiac Index 2.3 - Constitutional General appearance: Present: cooperative, no acute distress, obese - Respiratory Details: Lungs sounds diminished bilaterally. Respirations even, nonlabored. Currently on room air with oxygen saturation 98%. Barely able to achieve 500 mL on his incentive spirometry, patient does take deeper breaths without the incentive spirometry. Strong loose cough. Left pleural chest tube to continuous wall suction, 200 mL serous drainage overnight, 400 mL in the last 24 hours. Right pleural chest tube to continuous wall suction, 230 mL serous drainage overnight, 500 mL in the last 24 hours. No air leak present. - Cardiovascular Details: S1, S2 present. Regular rate and rhythm, sinus rhythm on telemetry. Sternum stable. A/V epicardial pacemaker wires present, grounded. Palpable extremity pulses present. Generalized edema present, although decreased in lower extremities. Right brachial PICC line present. Heart hugger in place with patient unable to demonstrate appropriate use. SCDs, antiembolism stockings present. - Gastrointestinal Gastrointestinal Comment(s): Abdomen soft, nontender, nondistended, obese. Active bowel sounds present 4 quadrants. Tolerating diet. Positive bowel movement this AM. - Genitourinary Genitourinary Comment(s): Pittman present draining clear, yellow urine. Output 50-75 mL/h overnight, 200 mL diuresis after albumin/lasix given yesterday. - Integumentary Integumentary Comment(s): Skin is warm and dry with evidence of good perfusion. Anterior chest incision well approximated covered with dry intact dressing. Bilateral lower extremity EVH site well approximated, FREDIS drains present with 105 mL serous drainage from left FREDIS. - Neurologic Neurologic: Present: CNII-XII intact - Musculoskeletal Musculoskeletal: Present: gait normal, generalized weakness, strength equal bilaterally - Psychiatric Psychiatric: Present: A&O x's 3, appropriate affect, intact judgment & insight - Allied health notes Allied health notes reviewed: nursing - Labs CBC & Chem 7: 12/13/18 04:30 12/13/18 04:30 Labs: Abnormal Lab Results - Last 24 Hours (Table) 12/12/18 12/13/18 12/13/18 Range/Units 20:34 02:01 02:18 WBC (3.8-10.6) k/uL RBC (4.30-5.90) m/uL Hgb (13.0-17.5) gm/dL Hct (39.0-53.0) % RDW (11.5-15.5) % Plt Count (150-450) k/uL Sodium (137-145) mmol/L BUN (9-20) mg/dL Creatinine (0.66-1.25) mg/dL Glucose (74-99) mg/dL POC Glucose (mg/dL) 105 H 67 L 74 L (75-99) mg/dL Calcium (8.4-10.2) mg/dL Magnesium (1.6-2.3) mg/dL 12/13/18 12/13/18 12/13/18 Range/Units 02:53 04:30 04:30 WBC 12.1 H (3.8-10.6) k/uL RBC 2.68 L (4.30-5.90) m/uL Hgb 7.1 L (13.0-17.5) gm/dL Hct 22.3 L (39.0-53.0) % RDW 16.3 H (11.5-15.5) % Plt Count 133 L (150-450) k/uL Sodium 130 L (137-145) mmol/L BUN 50 H (9-20) mg/dL Creatinine 1.47 H (0.66-1.25) mg/dL Glucose 72 L (74-99) mg/dL POC Glucose (mg/dL) 103 H (75-99) mg/dL Calcium 7.6 L (8.4-10.2) mg/dL Magnesium 2.7 H (1.6-2.3) mg/dL - Imaging and Cardiology Chest x-ray: report reviewed, image reviewed Assessment and Plan Assessment: 1. Severe triple-vessel coronary artery disease, non-STEMI, status post CABG 4 2. Acute on chronic systolic and diastolic heart failure with ejection fraction 40-45%, compensated 3. Moderate left ventricular dysfunction with mild to moderate mitral valve regurgitation 4. Right-sided pleural effusion status post thoracentesis with removal of 900 mL transudate of fluid 5. Leukocytosis 6. Acute on chronic renal failure, resolving 7. History of coronary artery disease with previous stents to the LAD in 2004, evidence of remote lateral wall myocardial infarction 8. Recent diagnosis of atrial flutter status post cardioversion on Eliquis for chronic for anticoagulation 9. Hypertension 10. Hyperlipidemia 11. Uncontrolled diabetes mellitus with hemoglobin A1c 7.8% 12. 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 Peripheral artery disease 14. Chronic venous stasis ulcers to his right lower extremity 15. Prostate disorder 16. Postoperative acute blood loss anemia, status post transfusion 1 unit packed red blood cells 17. Postoperative bradycardia, possibly medication induced 18. Postoperative atrial flutter Plan: 1. Continue aspirin, statin, Plavix, hydralazine, beta alfred therapy. Will increase beta alfred therapy as tolerated. 2. Hold Amiodarone secondary to bradycardic episode after initiation. No anticoagulation yet until wires and tubes are pulled. 3. Bronchodilators per pulmonology. 4. Will give IV lasix today, remove pittman after diuresis. Bladder scan every 6 hours, straight cath for >300mL residual. Continue Flomax. 5. Encourage incentive spirometry 10 times every hour while awake. 6. Increase activity as tolerated. PT/OT/cardiac rehab following. 7. Will monitor daily labs and x-rays. Electrolyte replacement per protocol. No further transfusion. Iron/Vit C added. 8. Pain control with current medication regimen. No narcotics. 9. Insulin management per primary care service. Avoid hypoglycemia and hyperglycemia. 10. GI/DVT prophylaxis with Protonix and heparin, SCDs. 11. Venous stasis ulcer wound care per Dr. Eldridge. 12. Continue chest tubes for another 24 hours secondary to high output. 13. Patient will likely need rehab at discharge secondary to weakness, social work has ready been consulted for placement. Dr. Meier consulted for possibility of IPR. 14. More recommendations based on patient's clinical course. Time with Patient: Greater than 30
[2018-12-13] MEDS: IPRATROPIUM-ALBUTEROL 3 ML NEB INHALATION SCH ×4 (08:13→20:35)
[2018-12-13] MEDS: INSULIN NPH 300 UNIT/3 ML VIAL SQ SCH (09:00)
[2018-12-13 12:13] LABS: Glucose,Whole Blood 142 mg/dL (75-99)
--- NOTE | 2018-12-13 12:44 | P.PN ---
Subjective Progress Note Date: 12/13/18 On 12/12/2018 and seeing this patient for a follow-up. The patient has severe triple-vessel disease and the patient has undergone non-ST segment elevation myocardial infarction and the patient is known to have chronic systolic and diastolic heart failure with ejection fraction of 40-45% with moderate LV dysfunction and ukcy-pp-gwwytube mitral regurgitation. The patient has also undergone a right-sided pleural effusion thoracentesis with evacuation of 900 mL of transudative fluid. The patient is known to have multivessel coronary artery disease in addition to hypertension, hyperlipidemia and COPD which is considered to be severe with an FEV1 of 47% of predicted, peripheral vascular disease, chr onic venous ulcers in lower extremities, BPH and obesity. The patient undergone four-vessel bypass surgery. Today's postop day #4. He is doing well. He is on room air oxygen. The chest tubes on the left are still present as the patient is still having increased output from the chest tubes. The chest x-ray showing no evidence of any pneumothorax. The patient had a chest x-ray today that show ed no evidence of any pneumothorax and there is some mild bibasilar pleural effusion. No fever. No chills. No sweats. White cell count is at 15.2. Hemoglobin is at 7.7. He still has a Cordis in the right neck and this was replaced with a PICC line at a later stage. He has suffered acute kidney injury, and the creatinine is at 1.45. He is producing adequate amount of urine output. He had a hypoglycemic event yesterday based on the initiation of NPH at the regular dose and the patient was taken off the NPH for now. His blood sugars improved and it's up to 100 this morning. No altered mentation. He is using incentive spirometer. Hemodynamically stable. Still has a backup pacemaker in place. On 12/13/2018 I'm seeing this patient for a follow-up. He is not doing a whole lot. He promised that he is going to do some ambulation today. No fever. No chills. He is on room air oxygen. Chest x-ray shows adequate expansion of both lungs. He has a left-sided chest tube in place and output is considerably high and we decided to keep the chest tube in place. Meanwhile, the patient is off insulin knowing that he was having low blood sugar. He is eating only every 5% of his food. I noticed that his blood sugars quite labile. After lunch today his blood sugar came up to 141 and he is being covered with a slight scale coverage. He has developed an acute kidney injury. Creatinine is at 1.4. Hemoglobin stable at 7.1. No other significant events otherwise for now. No altered mentation. Cardiac rhythm is sinus. It is short run of a flutter with a low rates yesterday that lasted for approximately 15 seconds and another 20 minutes a flutter was again at a slow rate. We still have a backup pacemaker at the rate of 50 beats per minute. Objective - Vital Signs Vital signs: Vital Signs Temp 97.9 F 12/13/18 04:00 Pulse 78 12/13/18 12:02 Resp 17 12/13/18 07:00 BP 112/59 12/13/18 07:00 Pulse Ox 97 12/13/18 07:00 Intake & Output 12/12/18 12/13/18 12/13/18 18:59 06:59 18:59 Intake Total 774 560 Output Total 1015 1455 Balance -241 -895 Weight 97 kg Intake: IV 234 Albumin Human 25% 50 ml 50 In Empty Bag 1 bag @ 50 mls/hr IVPB ONCE ONE Rx#: [id number] HD pressure bags 24 Lactated Ringers 1,000 ml 160 @ 20 mls/hr IV .Q24H [facility] Rx#:[id number] Oral 540 560 Output: Chest Tube Drainage 460 540 Left pleural 220 230 Right Pleural 240 310 Drainage 60 105 Left Calf 30 105 Right Calf 30 Urine 495 810 Other: Voiding Method Indwelling Catheter Indwelling Catheter ABP, PAP, CO, CI - Last Documented Arterial Blood Pressure 140/54 Pulmonary Artery Pressure 49/20 Cardiac Output 4.2 Cardiac Index 2.3 - Exam - Constitutional General appearance: Present: cooperative, no acute distress, obese - Respiratory Details: Lungs sounds diminished bilaterally. Respirations even, nonlabored. Currently on room air with oxygen saturation 98%. Barely able to achieve 500 mL on his incentive spirometry, patient does take deeper breaths without the incentive spi rometry. Strong loose cough. Left pleural chest tube to continuous wall suction, 200 mL serous drainage overnight, 400 mL in the last 24 hours. Right pleural chest tube to continuous wall suction, 230 mL serous drainage overnight, 500 mL in the last 24 hours. No air leak present. - Cardiovascular Details: S1, S2 present. Regular rate and rhythm, sinus rhythm on telemetry. Sternum stable. A/V epicardial pacemaker wires present, grounded. Palpable extremity pulses present. Generalized edema present, although decreased in lower extremities. Right brachial PICC line present. Heart hugger in place with patient unable to demonstrate appropriate use. SCDs, antiembolism stockings present. - Gastrointestinal Gastrointestinal Comment(s): Abdomen soft, nontender, nondistended, obese. Active bowel sounds present 4 quadrants. Tolerating diet. Positive bowel movement this AM. - Genitourinary Genitourinary Comment(s): Torres present draining clear, yellow urine. Output 50-75 mL/h overnight, 200 mL diuresis after albumin/lasix given yesterday. - Integumentary Integumentary Comment(s): Skin is warm and dry with evidence of good perfusion. Anterior chest incision well approximated covered with dry intact dressing. Bilateral lower extremity EVH site well approximated, FREDIS drains present with 105 mL serous drainage from left FREDIS. - Neurologic Neurologic: Present: CNII-XII intact - Musculoskeletal Musculoskeletal: Present: gait normal, generalized weakness, strength equal bilaterally - Psychiatric Psychiatric: Present: A&O x's 3, appropriate affect, intact judgment & insight - Labs CBC & Chem 7: 12/13/18 04:30 12/13/18 04:30 Labs: Abnormal Lab Results - Last 24 Hours (Table) 12/12/18 12/13/18 12/13/18 Range/Units 20:34 02:01 02:18 WBC (3.8-10.6) k/uL RBC (4.30-5.90) m/uL Hgb (13.0-17.5) gm/dL Hct (39.0-53.0) % RDW (11.5-15.5) % Plt Count (150-450) k/uL Sodium (137-145) mmol/L BUN (9-20) mg/dL Creatinine (0.66-1.25) mg/dL Glucose (74-99) mg/dL POC Glucose (mg/dL) 105 H 67 L 74 L (75-99) mg/dL Calcium (8.4-10.2) mg/dL Magnesium (1.6-2.3) mg/dL 12/13/18 12/13/18 12/13/18 Range/Units 02:53 04:30 04:30 WBC 12.1 H (3.8-10.6) k/uL RBC 2.68 L (4.30-5.90) m/uL Hgb 7.1 L (13.0-17.5) gm/dL Hct 22.3 L (39.0-53.0) % RDW 16.3 H (11.5-15.5) % Plt Count 133 L (150-450) k/uL Sodium 130 L (137-145) mmol/L BUN 50 H (9-20) mg/dL Creatinine 1.47 H (0.66-1.25) mg/dL Glucose 72 L (74-99) mg/dL POC Glucose (mg/dL) 103 H (75-99) mg/dL Calcium 7.6 L (8.4-10.2) mg/dL Magnesium 2.7 H (1.6-2.3) mg/dL 12/13/18 Range/Units 12:10 WBC (3.8-10.6) k/uL RBC (4.30-5.90) m/uL Hgb (13.0-17.5) gm/dL Hct (39.0-53.0) % RDW (11.5-15.5) % Plt Count (150-450) k/uL Sodium (137-145) mmol/L BUN (9-20) mg/dL Creatinine (0.66-1.25) mg/dL Glucose (74-99) mg/dL POC Glucose (mg/dL) 142 H (75-99) mg/dL Calcium (8.4-10.2) mg/dL Magnesium (1.6-2.3) mg/dL Assessment and Plan Plan: 1 multivessel coronary artery disease post four-vessel bypass surgery and the patient is postop day #5. Patient is also status post non-STEMI 2 CHF with an ejection fraction of 40-45%. The patient has a preop systolic and diastolic heart failure 3 postoperative left-sided chest tube which is still in place. Output is considerably high and the chest will Be kept in place and there is no evidence of pneumothorax. On today's chest x-ray there is no evidence of any pneumothorax. We decided to keep the chest tube in place. 4 acute kidney injury, nonoliguric, stable creatinine at 1.47 5 recent diagnosis of atrial flutter , he patient continues to have episodes of atrial flutter with a lower rate 6 diabetes mellitus with an episode of hypoglycemia currently on insulin sliding scale coverage and NPH insulin has been discontinued 7 hypertension 8 hyperlipidemia 9 COPD severe. Stable an FEV1 of 47% of predicted 10 acute hypoxic respiratory failure following thoracotomy bypass surgery, recovered currently on room air oxygen 11 chronic venous stasis in lower extremities bilaterally 12 BPH 13 postoperative blood loss anemia and the patient has received only 1 unit of packed RBC postop 14 postoperative bradycardia, amiodarone-induced Plan The patient has a adequate IV access. Monitor the cardiac rhythm. Monitor the output from the chest tube. Keep the chest tube in place. Ambulate in the hallway. Continue using incentive spirometer. Monitor blood sugar. Hold off on long-acting insulin unless his blood sugars pickup further. We'll continue to follow.
[2018-12-13] MEDS: TRIAMCINOLONE ACET 0.1% OINTMENT 15 GM TUBE TOPICAL SCH ×2 (12:55→21:31)
--- NOTE | 2018-12-13 13:36 | P.PN ---
<DylonkamiJose Alberto - Last Filed: 12/13/18 13:35> Objective - Vital Signs Vital signs: Vital Signs Temp 97.9 F 12/13/18 04:00 Pulse 78 12/13/18 12:02 Resp 17 12/13/18 07:00 BP 112/59 12/13/18 07:00 Pulse Ox 97 12/13/18 07:00 Intake & Output 12/12/18 12/13/18 12/13/18 18:59 06:59 18:59 Intake Total 774 560 Output Total 1015 1455 Balance -241 -895 Weight 97 kg Intake: IV 234 Albumin Human 25% 50 ml 50 In Empty Bag 1 bag @ 50 mls/hr IVPB ONCE ONE Rx#: [id number] HD pressure bags 24 Lactated Ringers 1,000 ml 160 @ 20 mls/hr IV .Q24H [facility] Rx#:[id number] Oral 540 560 Output: Chest Tube Drainage 460 540 Left pleural 220 230 Right Pleural 240 310 Drainage 60 105 Left Calf 30 105 Right Calf 30 Urine 495 810 Other: Voiding Method Indwelling Catheter Indwelling Catheter ABP, PAP, CO, CI - Last Documented Arterial Blood Pressure 140/54 Pulmonary Artery Pressure 49/20 Cardiac Output 4.2 Cardiac Index 2.3 - Labs CBC & Chem 7: 12/13/18 04:30 12/13/18 04:30 Labs: Abnormal Lab Results - Last 24 Hours (Table) 12/12/18 12/13/18 12/13/18 Range/Units 20:34 02:01 02:18 WBC (3.8-10.6) k/uL RBC (4.30-5.90) m/uL Hgb (13.0-17.5) gm/dL Hct (39.0-53.0) % RDW (11.5-15.5) % Plt Count (150-450) k/uL Sodium (137-145) mmol/L BUN (9-20) mg/dL Creatinine (0.66-1.25) mg/dL Glucose (74-99) mg/dL POC Glucose (mg/dL) 105 H 67 L 74 L (75-99) mg/dL Calcium (8.4-10.2) mg/dL Magnesium (1.6-2.3) mg/dL 12/13/18 12/13/18 12/13/18 Range/Units 02:53 04:30 04:30 WBC 12.1 H (3.8-10.6) k/uL RBC 2.68 L (4.30-5.90) m/uL Hgb 7.1 L (13.0-17.5) gm/dL Hct 22.3 L (39.0-53.0) % RDW 16.3 H (11.5-15.5) % Plt Count 133 L (150-450) k/uL Sodium 130 L (137-145) mmol/L BUN 50 H (9-20) mg/dL Creatinine 1.47 H (0.66-1.25) mg/dL Glucose 72 L (74-99) mg/dL POC Glucose (mg/dL) 103 H (75-99) mg/dL Calcium 7.6 L (8.4-10.2) mg/dL Magnesium 2.7 H (1.6-2.3) mg/dL 12/13/18 Range/Units 12:10 WBC (3.8-10.6) k/uL RBC (4.30-5.90) m/uL Hgb (13.0-17.5) gm/dL Hct (39.0-53.0) % RDW (11.5-15.5) % Plt Count (150-450) k/uL Sodium (137-145) mmol/L BUN (9-20) mg/dL Creatinine (0.66-1.25) mg/dL Glucose (74-99) mg/dL POC Glucose (mg/dL) 142 H (75-99) mg/dL Calcium (8.4-10.2) mg/dL Magnesium (1.6-2.3) mg/dL <Franca Woodward - Last Filed: 12/13/18 15:39> Subjective Mr. Carrasco is seen sitting up resting comfortably in the chair in no acute distress. Overall he complains of feeling generalized weakness, fatigue and just feeling "lousy". He denies any symptoms of shortness of breath, chest discomfort, dizziness or palpitations. His chest tubes are still in place. Pacing has been placed on hold per cardiothoracic surgery. Blood pressure 112/59 heart rate has been in the 70s to 80s. Laboratory data reviewed, WBC 12.1, hemoglobin 7.1, platelets 133, sodium 1:30, potassium 5.1, creatinine 1.47, magnesium 2.7. Currently maintained on aspirin 81 mg daily, atorvastatin 40 mg daily, Plavix 75 mg daily, hydralazine 25 mg 3 times a day and metoprolol 12.5 mg twice a day. Chest x-ray obtained this morning reveals an overall s table chest with no acute cardiopulmonary process noted. He is maintaining a negative fluid balance. GENERAL: Well-appearing, well-nourished and in no acute distress. NECK: Supple without JVD or thyromegaly. LUNGS: Breath sounds clear to auscultation bilaterally. Respiration equal and unlabored. No wheezes, rales or rhonchi. Diminished bilaterally. Chest tubes in place. HEART: Regular rate and rhythm without murmurs, rubs or gallops. S1 and S2 heard. EXTREMITIES: Normal range of motion, no edema. No clubbing or cyanosis. Peripheral pulses intact. ASSESSMENT Coronary artery disease status post bypass grafting following an acute myocardial infarction Intraoperative bleeding with chest tubes in place Intermittent postoperative atrial flutter, currently maintaining sinus mechanism Acute on chronic systolic and diastolic heart failure ejection fraction 40-45% PLAN Increase lopressor to 25 mg BID. Ongoing medical management. Incentive spirometer use encouraged. We will continue to follow and make recommendations accordingly. Nurse Practitioner note has been reviewed, I agree with a documented findings and plan of care. Patient was seen and examined. Objective - Vital Signs Vital signs: Vital Signs Temp 97.9 F 12/13/18 04:00 Pulse 78 12/13/18 12:02 Resp 17 12/13/18 07:00 BP 112/59 12/13/18 07:00 Pulse Ox 97 12/13/18 07:00 Intake & Output 12/12/18 12/13/18 12/13/18 18:59 06:59 18:59 Intake Total 774 560 Output Total 1851 5055 Balance -241 -895 Weight 97 kg Intake: IV 234 Albumin Human 25% 50 ml 50 In Empty Bag 1 bag @ 50 mls/hr IVPB ONCE ONE Rx#: [id number] HD pressure bags 24 Lactated Ringers 1,000 ml 160 @ 20 mls/hr IV .Q24H [facility] Rx#:[id number] Oral 540 560 Output: Chest Tube Drainage 460 540 Left pleural 220 230 Right Pleural 240 310 Drainage 60 105 Left Calf 30 105 Right Calf 30 Urine 495 810 Other: Voiding Method Indwelling Catheter Indwelling Catheter ABP, PAP, CO, CI - Last Documented Arterial Blood Pressure 140/54 Pulmonary Artery Pressure 49/20 Cardiac Output 4.2 Cardiac Index 2.3 - Labs CBC & Chem 7: 12/13/18 04:30 12/13/18 04:30 Labs: Abnormal Lab Results - Last 24 Hours (Table) 12/12/18 12/13/18 12/13/18 Range/Units 20:34 02:01 02:18 WBC (3.8-10.6) k/uL RBC (4.30-5.90) m/uL Hgb (13.0-17.5) gm/dL Hct (39.0-53.0) % RDW (11.5-15.5) % Plt Count (150-450) k/uL Sodium (137-145) mmol/L BUN (9-20) mg/dL Creatinine (0.66-1.25) mg/dL Glucose (74-99) mg/dL POC Glucose (mg/dL) 105 H 67 L 74 L (75-99) mg/dL Calcium (8.4-10.2) mg/dL Magnesium (1.6-2.3) mg/dL 12/13/18 12/13/18 12/13/18 Range/Units 02:53 04:30 04:30 WBC 12.1 H (3.8-10.6) k/uL RBC 2.68 L (4.30-5.90) m/uL Hgb 7.1 L (13.0-17.5) gm/dL Hct 22.3 L (39.0-53.0) % RDW 16.3 H (11.5-15.5) % Plt Count 133 L (150-450) k/uL Sodium 130 L (137-145) mmol/L BUN 50 H (9-20) mg/dL Creatinine 1.47 H (0.66-1.25) mg/dL Glucose 72 L (74-99) mg/dL POC Glucose (mg/dL) 103 H (75-99) mg/dL Calcium 7.6 L (8.4-10.2) mg/dL Magnesium 2.7 H (1.6-2.3) mg/dL 12/13/18 Range/Units 12:10 WBC (3.8-10.6) k/uL RBC (4.30-5.90) m/uL Hgb (13.0-17.5) gm/dL Hct (39.0-53.0) % RDW (11.5-15.5) % Plt Count (150-450) k/uL Sodium (137-145) mmol/L BUN (9-20) mg/dL Creatinine (0.66-1.25) mg/dL Glucose (74-99) mg/dL POC Glucose (mg/dL) 142 H (75-99) mg/dL Calcium (8.4-10.2) mg/dL Magnesium (1.6-2.3) mg/dL
[2018-12-13 17:14] LABS: Glucose,Whole Blood 100 mg/dL (75-99)
--- NOTE | 2018-12-13 17:34 | PN ---
PROGRESS NOTE DATE OF SERVICE: 12/13/2018 This 78-year-old gentleman who was admitted CAD, CABG, is being closely monitored. The patient's sensorium is much better. The eating is also more on a regular basis at this time. The blood sugars are between 103 and 75. The patient is being closely monitored. The patient also has some cardiac arrhythmia. No chest pain. No palpitations. No fever. PHYSICAL EXAMINATION: Alert and oriented x2. Pulse 76, blood pressure 112/59, respiration 17, temperature normal, pulse ox 97% on room air. HEENT: Conjunctivae normal. NECK: No jugular venous distention. CARDIOVASCULAR SYSTEM: S1, S2 muffled. RESPIRATORY SYSTEM: Breath sounds diminished at the bases. Scattered rhonchi and crackles. ABDOMEN: Soft, non-tender. LEGS: No edema. No swelling. NERVOUS SYSTEM: No focal deficit. LABS: WBC 12.1, hemoglobin 7.1, sodium 130, potassium 5.1. ASSESSMENT: 1. Status post coronary artery disease, coronary artery bypass grafting. 2. History of recent acute ddh-FC-wevmxgi-elevation myocardial infarction, present on admission. 3. Diabetes mellitus, type 2, with hyper- and hypoglycemia. 4. Congestive heart failure, acute exacerbation, with acute on chronic systolic dysfunction. 5. History of coronary artery disease. 6. History of congestive heart failure. 7. History of atrial fibrillation, paroxysmal. 8. History of diabetes mellitus, type 2. 9. Hyperlipidemia. 10.History of anemia. 11.Increased white count. 12.Increased creatinine with possible chronic kidney disease, stage III. RECOMMENDATIONS AND DISCUSSION: I recommend to continue current medications, continue with the monitoring, symptomatic treatment. Incentive spirometry. Continue with the current dose of insulin. Monitor closely. Will adjust according to the improvement in the diet. Otherwise, continue to monitor. Further recommendations to follow. MMODL / IJN: [id number] /
[2018-12-13 20:22] LABS: Glucose,Whole Blood 151 mg/dL (75-99)
[2018-12-13] MEDS: METOPROLOL TARTRATE 25 MG TAB PO SCH (21:30)
[2018-12-13] MEDS: SENNOSIDES-DOCUSATE SODIUM 1 EACH TAB PO SCH (21:30)
--- NOTE | 2018-12-13 22:44 | CONS ---
CONSULTATION REASON FOR CONSULT: Need for PICC line with low GFR. HISTORY OF PRESENT ILLNESS: The patient is a 78-year-old male who is status post coronary artery bypass surgery. Postop day #5. Overall patient is doing fairly well. His serum creatinine peaked at 2.01, preoperatively and then it came down to 0.9, which was a day of catheterization and then since then it has been staying at about 1.4 mg/dL. GFR currently is at 46. The patient needed a PICC line which was placed yesterday. Currently patient is not on any drips. He is awake. He is comfortable and has been tolerating oral intake quite well. PAST MEDICAL HISTORY: Significant for hypertension, diabetes, coronary artery disease, history of CHF, BPH, hyperlipidemia. PAST SURGICAL HISTORY: Appendectomy, cardiac catheterization, coronary stent placement, history of cataract surgery. SOCIAL HISTORY: Negative for smoking, drug abuse or alcohol abuse. MEDICATIONS: Reviewed prior to admission and currently during hospitalization. ALLERGIES: INCLUDE STATINS. PHYSICAL EXAMINATION: On examination, the patient is currently comfortable, awake and alert, oriented x3. Blood pressure this morning was 100/53, heart rate 82 per minute. He is afebrile. Examination of the heart S1, S2. Examination lungs bilateral breath sounds are heard. Decreased breath sounds at bases. Abdomen is soft, nontender. Exam of lower extremities shows edema 2+ bilaterally. [employer] exam is grossly intact. LAB: Show sodium 130, potassium 5.1, BUN 50, serum creatinine 1.47, hemoglobin 7.1 g/dL. ASSESSMENT: 1. Acute kidney injury postoperatively, currently nonoliguric with stable renal function. No nephrotoxic agents on board. 2. Status post coronary artery bypass surgery, postop day #5. 3. History of benign prostatic hypertrophy. 4. Hyponatremia which appears to be hypervolemic. PLAN: Continue off of IV fluids. Encourage increased oral intake. We can use loop diuretics as needed. The patient will likely benefit from initiation of oral Lasix on a daily basis. His serum sodium is progressively decreasing with evidence of volume overload. His edema as well as the sodium should improve with improving oral intake as well, particularly protein. MMODL / IJN: [id number] /
[2018-12-14] MEDS: ACETAMINOPHEN TAB 325 MG TAB PO PRN ×3 (00:41→18:49)
[2018-12-14 02:31] LABS: Glucose,Whole Blood 150 mg/dL (75-99)
[2018-12-14] MEDS: hydrALAZINE HCL 25 MG TAB PO SCH ×3 (03:21→16:39)
[2018-12-14 06:10] LABS: Anisocytosis Slight; HCT 23.6 % (39.0-53.0); HGB 7.5 gm/dL (13.0-17.5); MCH 27.1 pg (25.0-35.0); MCV 84.9 fL (80.0-100.0); Mean Platelet Volume 7.2; Platelet Count 196 k/uL (150-450); RBC 2.78 m/uL (4.30-5.90); RDW 16.1 % (11.5-15.5); WBC 16.3 k/uL (3.8-10.6)
[2018-12-14 06:19] LABS: Calcium 7.7 mg/dL (8.4-10.2); Magnesium 2.5 mg/dL (1.6-2.3)
[2018-12-14] MEDS: ASCORBIC ACID 500 MG TAB PO SCH ×2 (07:02→16:45)
[2018-12-14] MEDS: FERROUS SULFATE 325 MG TAB PO SCH ×2 (07:02→16:45)
[2018-12-14] MEDS: INSULIN ASPART (NovoLOG) 100 UNIT/ML VIAL SQ SCH ×4 (07:02→20:47)
[2018-12-14] MEDS: PANTOPRAZOLE 40 MG TABLET PO SCH (07:02)
[2018-12-14 07:03] LABS: Glucose,Whole Blood 158 mg/dL (75-99)
--- NOTE | 2018-12-14 07:37 | XR ---
EXAMINATION TYPE: XR chest 1V portable DATE OF EXAM: 12/14/2018 COMPARISON: 12/13/2018 HISTORY: Status post cardiac surgery TECHNIQUE: Single frontal view of the chest is obtained. FINDINGS: Redemonstration of a left-sided thoracostomy tube without residual pneumothorax. Strand-li ke opacities at the lung bases have resolved in the interim. Cardiomediastinal silhouette is enlarged with postoperative change. Osseous structures are grossly intact. Right thoracostomy tube is also un changed without appreciable pneumothorax. Right-sided PICC terminates in the subclavian vein. IMPRESSION: Resolution of the previously seen strand-like basilar opacities. Postoperative changes t he chest and cardiomegaly with stable thoracostomy tubes.
[2018-12-14] MEDS: HEPARIN SODIUM,PORCINE 5,000 UNIT/ML 1 ML VIAL SQ SCH ×2 (08:19→16:39)
[2018-12-14] MEDS: IPRATROPIUM-ALBUTEROL 3 ML NEB INHALATION SCH ×4 (08:20→19:49)
[2018-12-14] MEDS: TAMSULOSIN 0.4 MG CAP.ER.24H PO SCH ×2 (08:21→20:46)
[2018-12-14] MEDS: ASPIRIN 81 MG PO SCH (08:21)
[2018-12-14] MEDS: ATORVASTATIN 40 MG TAB PO SCH (08:21)
[2018-12-14] MEDS: CLOPIDOGREL 75 MG TAB PO SCH (08:21)
[2018-12-14] MEDS: METOPROLOL TARTRATE 25 MG TAB PO SCH ×2 (08:21→20:46)
[2018-12-14] MEDS: TRIAMCINOLONE ACET 0.1% OINTMENT 15 GM TUBE TOPICAL SCH ×2 (08:22→20:47)
[2018-12-14] MEDS ORDERED: SODIUM POLYSTYRENE SULFONATE 15 GM/60 ML BOTTLE PO STA (08:39)
--- NOTE | 2018-12-14 10:19 | P.PN ---
Subjective Progress Note Date: 12/14/18 Principal diagnosis: Severe triple vessel coronary artery disease, non-STEMI, acute on chronic systolic and diastolic heart failure with ejection fraction 40-45%, moderate left ventricular dysfunction with mild to moderate mitral valve regurgitation, right-sided pleural effusion status post thoracentesis with removal of 900 mL transudative fluid. 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 Preoperative leukocytosis, acute renal failure. POD #6 urgent quadruple coronary artery bypass grafting using the left internal mammary artery to the left anterior descending artery, reverse saphenous vein graft from the aorta to the first diagonal artery, reverse saphenous vein graft from the aorta to the first obtuse marginal artery, reverse saphenous vein graft from the aorta to the distal posterior lateral branch of the circumflex artery which is a dominant artery, bilateral pulmonary vein isolation using the radiofrequency bipolar clamp from [employer], intraoperative exclusion of the left atrial appendage using a 40 mm AtriClip, intraoperative transesophageal echocardiogram and epi-aortic scanning, and intraoperative graft flow m easurements using the [employer] system, endoscopic harvesting of bilateral saphenous veins from the groin to the knee level. Postoperative acute blood loss anemia, expected outcome of surgery given he modilution and cardiopulmonary bypass pump. Postoperative bradycardia, unexpected but potential outcome, likely medication induced Postoperative atrial flutter, expected outcome The patient's currently sitting up in a recliner in no acute distress in the intensive care unit. Denies any pain or shortness of breath, does continue to complain of being cold and that his butt hurts. Currently in back and forth between normal sinus rhythm with his heart rate in the 80s and atrial flutter with heart rate in the 60s, hemodynamically stable on no inotropes or pressors. Ambulated in the hallway yesterday with PT/OT/nursing, patient required two- person assist and has to take frequent breaks to sit to regain his strength.Patient was given lasix yesterday, BUN/creatinine slightly elevated this morning as well as K 6.0 Objective - Vital Signs Vital signs: Vital Signs Temp 97.6 F 12/14/18 04:00 Pulse 64 12/14/18 08:32 Resp 23 12/14/18 07:00 BP 101/60 12/14/18 07:00 Pulse Ox 96 12/14/18 07:00 Intake & Output 12/13/18 12/14/18 12/14/18 18:59 06:59 18:59 Intake Total 860 200 Output Total 2080 560 60 Balance -1220 -360 -60 Weight 96.3 kg 96.3 kg Intake: Oral 860 200 Output: Chest Tube Drainage 370 310 Left pleural 120 150 Right Pleural 250 160 Drainage 100 100 60 Left Calf 100 100 60 Urine 1610 150 Other: Voiding Method Indwelling Catheter Urinal # Bowel Movements 1 ABP, PAP, CO, CI - Last Documented Arterial Blood Pressure 140/54 Pulmonary Artery Pressure 49/20 Cardiac Output 4.2 Cardiac Index 2.3 - Constitutional General appearance: Present: cooperative, no acute distress, obese - Respiratory Details: Lungs sounds diminished bilaterally. Respirations even, nonlabored. Currently on room air with oxygen saturation 94%. Unable to use his incentive spirometry appropriately, patient does take deeper breaths without the incentive spirometry. Strong loose cough. Left pleural chest tube to continuous wall suction, 150 mL serous drainage overnight, 300 mL in the last 24 hours. Right pleural chest tube to continuous wall suction, 160 mL serous drainage overnight, 400 mL in the last 24 hours. No air leak present. - Cardiovascular Details: S1, S2 present. Regular rate and rhythm, sinus rhythm on telemetry. Sternum stable. A/V epicardial pacemaker wires present, grounded. Palpable extremity pulses present. Generalized edema present, although decreased in lower extremities. Right brachial PICC line present. Heart hugger in place with napoleon ent unable to demonstrate appropriate use. SCDs, antiembolism stockings present. - Gastrointestinal Gastrointestinal Comment(s): Abdomen soft, nontender, nondistended, obese. Active bowel sounds present 4 quadrants. Tolerating diet. Positive bowel movement 12/13. - Genitourinary Genitourinary Comment(s): Torres discontinued yesterday after IV Lasix. He did have to be straight cathed last night due to bladder scan demonstrating 450 mL postvoid residual, however straight cath yielded only 150 mL of urine. Patient diuresed 100-350 mL per hour for 6 hours after IV Lasix given yesterday. - Integumentary Integumentary Comment(s): Skin is warm and dry with evidence of good perfusion. Anterior chest incision well approximated covered with dry intact dressing. Bilateral lower extremity EVH site well approximated, FREDIS drains present with 220 mL serous drainage in the last 24 hours from left FREDIS. - Neurologic Neurologic: Present: CNII-XII intact - Musculoskeletal Musculoskeletal: Present: generalized weakness, strength equal bilaterally - Psychiatric Psychiatric: Present: A&O x's 3, appropriate affect, intact judgment & insight - Allied health notes Allied health notes reviewed: nursing - Labs CBC & Chem 7: 12/14/18 06:00 12/14/18 11:51 Labs: Abnormal Lab Results - Last 24 Hours (Table) 12/13/18 12/13/18 12/13/18 Range/Units 12:10 17:13 20:19 WBC (3.8-10.6) k/uL RBC (4.30-5.90) m/uL Hgb (13.0-17.5) gm/dL Hct (39.0-53.0) % RDW (11.5-15.5) % Sodium (137-145) mmol/L Potassium (3.5-5.1) mmol/L BUN (9-20) mg/dL Creatinine (0.66-1.25) mg/dL Glucose (74-99) mg/dL POC Glucose (mg/dL) 142 H 100 H 151 H (75-99) mg/dL Calcium (8.4-10.2) mg/dL Magnesium (1.6-2.3) mg/dL 12/14/18 12/14/18 12/14/18 Range/Units 02:29 06:00 06:00 WBC 16.3 H (3.8-10.6) k/uL RBC 2.78 L (4.30-5.90) m/uL Hgb 7.5 L (13.0-17.5) gm/dL Hct 23.6 L (39.0-53.0) % RDW 16.1 H (11.5-15.5) % Sodium 130 L (137-145) mmol/L Potassium 6.0 H (3.5-5.1) mmol/L BUN 52 H (9-20) mg/dL Creatinine 1.69 H (0.66-1.25) mg/dL Glucose 141 H (74-99) mg/dL POC Glucose (mg/dL) 150 H (75-99) mg/dL Calcium 7.7 L (8.4-10.2) mg/dL Magnesium 2.5 H (1.6-2.3) mg/dL 12/14/18 Range/Units 07:01 WBC (3.8-10.6) k/uL RBC (4.30-5.90) m/uL Hgb (13.0-17.5) gm/dL Hct (39.0-53.0) % RDW (11.5-15.5) % Sodium (137-145) mmol/L Potassium (3.5-5.1) mmol/L BUN (9-20) mg/dL Creatinine (0.66-1.25) mg/dL Glucose (74-99) mg/dL POC Glucose (mg/dL) 158 H (75-99) mg/dL Calcium (8.4-10.2) mg/dL Magnesium (1.6-2.3) mg/dL - Imaging and Cardiology Chest x-ray: report reviewed, image reviewed Assessment and Plan Assessment: 1. Severe triple-vessel coronary artery disease, non-STEMI, status post CABG 4 2. Acute on chronic systolic and diastolic heart failure with ejection fraction 40-45%, compensated 3. Moderate left ventricular dysfunction with mild to moderate mitral valve regurgitation 4. Right-sided pleural effusion status post thoracentesis with removal of 900 mL transudate of fluid 5. Leukocytosis 6. Acute on chronic renal failure 7. History of coronary artery disease with previous stents to the LAD in 2004, evidence of remote lateral wall myocardial infarction 8. Recent diagnosis of atrial flutter status post cardioversion on Eliquis for chronic for anticoagulation 9. Hypertension 10. Hyperlipidemia 11. Uncontrolled diabetes mellitus with hemoglobin A1c 7.8% 12. 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 Peripheral artery disease 14. Chronic venous stasis ulcers to his right lower extremity 15. Prostate disorder 16. Postoperative acute blood loss anemia, status post transfusion 1 unit packed red blood cells 17. Postoperative bradycardia, possibly medication induced 18. Postoperative atrial flutter 19. Hyperkalemia Plan: 1. Continue aspirin, statin, Plavix, hydralazine, beta alfred therapy. Will increase beta alfred therapy as tolerated, increased to 25 mg twice daily yesterday by cardiology. 2. Hold Amiodarone secondary to bradycardic episode after initiation. No antico agulation yet until wires and tubes are pulled. 3. Bronchodilators per pulmonology. 4. No lasix today. Bladder scan every 6 hours, straight cath for >300mL residual. Continue Flomax. 5. Encourage incentive spirometry 10 times every hour while awake. 6. Increase activity as tolerated. PT/OT/cardiac rehab following. 7. Will monitor daily labs and x-rays. Electrolyte replacement per protocol. No further transfusion. Kayexalate ordered, repeat K 6.7, insulin/dextrose IV ordered, discussed with nephrology. 8. Pain control with current medication regimen. No narcotics. 9. Insulin management per primary care service. Avoid hypoglycemia and hyperglycemia. 10. GI/DVT prophylaxis with Protonix and heparin, SCDs. 11. Venous stasis ulcer wound care per Dr. Eldridge. 12. Continue chest tubes for another 24 hours secondary to high output. 13. Patient will likely need rehab at discharge secondary to weakness, social work has ready been consulted for placement. Dr. Meier consulted for possibility of IPR. 14. More recommendations based on patient's clinical course. Time with Patient: Greater than 30
[2018-12-14 11:53] LABS: Glucose,Whole Blood 149 mg/dL (75-99)
[2018-12-14] MEDS ORDERED: DEXTROSE 50%-WATER 50 ML SYRINGE IVP STA (13:11)
[2018-12-14] MEDS ORDERED: INSULIN REGULAR 100 UNIT/ML VIAL IV STA (13:11)
--- NOTE | 2018-12-14 14:51 | P.PN ---
Subjective Progress Note Date: 12/14/18 On 12/12/2018 and seeing this patient for a follow-up. The patient has severe triple-vessel disease and the patient has undergone non-ST segment elevation myocardial infarction and the patient is known to have chronic systolic and diastolic heart failure with ejection fraction of 40-45% with moderate LV dysfunction and [id number] mitral regurgitation. The patient has also undergone a right-sided pleural effusion thoracentesis with evacuation of 900 mL of transudative fluid. The patient is known to have multivessel coronary artery disease in addition to hypertension, hyperlipidemia and COPD which is considered to be severe with an FEV1 of 47% of predicted, peripheral vascular disease, chr onic venous ulcers in lower extremities, BPH and obesity. The patient undergone four-vessel bypass surgery. Today's postop day #4. He is doing well. He is on room air oxygen. The chest tubes on the left are still present as the patient is still having increased output from the chest tubes. The chest x-ray showing no evidence of any pneumothorax. The patient had a chest x-ray today that show ed no evidence of any pneumothorax and there is some mild bibasilar pleural effusion. No fever. No chills. No sweats. White cell count is at 15.2. Hemoglobin is at 7.7. He still has a Cordis in the right neck and this was replaced with a PICC line at a later stage. He has suffered acute kidney injury, and the creatinine is at 1.45. He is producing adequate amount of urine output. He had a hypoglycemic event yesterday based on the initiation of NPH at the regular dose and the patient was taken off the NPH for now. His blood sugars improved and it's up to 100 this morning. No altered mentation. He is using incentive spirometer. Hemodynamically stable. Still has a backup pacemaker in place. On 12/13/2018 I'm seeing this patient for a follow-up. He is not doing a whole lot. He promised that he is going to do some ambulation today. No fever. No chills. He is on room air oxygen. Chest x-ray shows adequate expansion of both lungs. He has a left-sided chest tube in place and output is considerably high and we decided to keep the chest tube in place. Meanwhile, the patient is off insulin knowing that he was having low blood sugar. He is eating only every 5% of his food. I noticed that his blood sugars quite labile. After lunch today his blood sugar came up to 141 and he is being covered with a slight scale coverage. He has developed an acute kidney injury. Creatinine is at 1.4. Hemoglobin stable at 7.1. No other significant events otherwise for now. No altered mentation. Cardiac rhythm is sinus. It is short run of a flutter with a low rates yesterday that lasted for approximately 15 seconds and another 20 minutes a flutter was again at a slow rate. We still have a backup pacemaker at the rate of 50 beats per minute. on 12/15/1999 and Seeing the patient for a follow-up.the patient is awake and alert. No signs of any respiratory distress. Chest tubes are still in place. Output remains considerably higher and for that reason we decided to keep the left sided chest tube in place. Sternal stable clean and intact. The patient is still having runs of atrial flutter at a low rate. Articulation has been initiated as long as the chest tubes are still in place. His potassium level is at 6.0. This will be repeated. He is tolerating his diet. No nausea. No vomiting. No abdominal pain. No pulmonary issues for now. Chest x-ray was reviewed and there is a sizable pneumothorax or effusion. Lungs are well expanded and the Objective - Vital Signs Vital signs: Vital Signs Temp 97 F L 12/14/18 12:00 Pulse 78 12/14/18 14:00 Resp 22 12/14/18 14:00 BP 105/73 12/14/18 14:00 Pulse Ox 96 12/14/18 14:00 Intake & Output 12/13/18 12/14/18 12/14/18 18:59 06:59 18:59 Intake Total 860 200 300 Output Total 2080 560 505 Balance -1220 -360 -205 Weight 96.3 kg 96.3 kg Intake: Oral 860 200 300 Output: Chest Tube Drainage 370 310 160 Left pleural 120 150 60 Right Pleural 250 160 100 Drainage 100 100 145 Left Calf 100 100 145 Urine 1610 150 200 Other: Voiding Method Indwelling Catheter Urinal Urinal # Voids 1 # Bowel Movements 1 1 ABP, PAP, CO, CI - Last Documented Arterial Blood Pressure 140/54 Pulmonary Artery Pressure 49/20 Cardiac Output 4.2 Cardiac Index 2.3 - Exam - Constitutional General appearance: Present: cooperative, no acute distress, obese - Respiratory Details: Lungs sounds diminished bilaterally. Respirations even, nonlabored. Currently on room air with oxygen saturation 94%. Unable to use his incentive spirometry appropriately, patient does take deeper breaths without the incentive spirometry. Strong loose cough. Left pleural chest tube to continuous wall suction, 150 mL serous drainage overnight, 300 mL in the last 24 hours. Right pleural chest tube to continuous wall suction, 160 mL serous drainage overnight, 400 mL in the last 24 hours. No air leak present. - Cardiovascular Details: S1, S2 present. Regular rate and rhythm, sinus rhythm on telemetry. Sternum stable. A/V epicardial pacemaker wires present, grounded. Palpable extremity pulses present. Generalized edema present, although decreased in lower extr emities. Right brachial PICC line present. Heart hugger in place with patient unable to demonstrate appropriate use. SCDs, antiembolism stockings present. - Gastrointestinal Gastrointestinal Comment(s): Abdomen soft, nontender, nondistended, obese. Active bowel sounds present 4 quadrants. Tolerating diet. Positive bowel movement 12/13. - Genitourinary Genitourinary Comment(s): Torres discontinued yesterday after IV Lasix. He did have to be straight cathed last night due to bladder scan demonstrating 450 mL postvoid residual, however straight cath yielded only 150 mL of urine. Patient diuresed 100-350 mL per hour for 6 hours after IV Lasix given yesterday. - Integumentary Integumentary Comment(s): Skin is warm and dry with evidence of good perfusion. Anterior chest incision well approximated covered with dry intact dressing. Bilateral lower extremity EVH site well approximated, FREDIS drains present with 220 mL serous drainage in the last 24 hours from left FREDIS. - Neurologic Neurologic: Present: CNII-XII intact - Musculoskeletal Musculoskeletal: Present: generalized weakness, strength equal bilaterally - Psychiatric Psychiatric: Present: A&O x's 3, appropriate affect, intact judgment & insight - Labs CBC & Chem 7: 12/14/18 06:00 12/14/18 11:51 Labs: Abnormal Lab Results - Last 24 Hours (Table) 12/13/18 12/13/18 12/14/18 Range/Units 17:13 20:19 02:29 WBC (3.8-10.6) k/uL RBC (4.30-5.90) m/uL Hgb (13.0-17.5) gm/dL Hct (39.0-53.0) % RDW (11.5-15.5) % Sodium (137-145) mmol/L Potassium (3.5-5.1) mmol/L BUN (9-20) mg/dL Creatinine (0.66-1.25) mg/dL Glucose (74-99) mg/dL POC Glucose (mg/dL) 100 H 151 H 150 H (75-99) mg/dL Calcium (8.4-10.2) mg/dL Magnesium (1.6-2.3) mg/dL 12/14/18 12/14/18 12/14/18 Range/Units 06:00 06:00 07:01 WBC 16.3 H (3.8-10.6) k/uL RBC 2.78 L (4.30-5.90) m/uL Hgb 7.5 L (13.0-17.5) gm/dL Hct 23.6 L (39.0-53.0) % RDW 16.1 H (11.5-15.5) % Sodium 130 L (137-145) mmol/L Potassium 6.0 H (3.5-5.1) mmol/L BUN 52 H (9-20) mg/dL Creatinine 1.69 H (0.66-1.25) mg/dL Glucose 141 H (74-99) mg/dL POC Glucose (mg/dL) 158 H (75-99) mg/dL Calcium 7.7 L (8.4-10.2) mg/dL Magnesium 2.5 H (1.6-2.3) mg/dL 12/14/18 12/14/18 Range/Units 11:49 11:51 WBC (3.8-10.6) k/uL RBC (4.30-5.90) m/uL Hgb (13.0-17.5) gm/dL Hct (39.0-53.0) % RDW (11.5-15.5) % Sodium (137-145) mmol/L Potassium 6.7 H* (3.5-5.1) mmol/L BUN (9-20) mg/dL Creatinine (0.66-1.25) mg/dL Glucose (74-99) mg/dL POC Glucose (mg/dL) 149 H (75-99) mg/dL Calcium (8.4-10.2) mg/dL Magnesium (1.6-2.3) mg/dL Assessment and Plan Plan: 1 multivessel coronary artery disease post four-vessel bypass surgery and the patient is postop day #6. Patient is also status post non-STEMI 2 CHF with an ejection fraction of 40-45%. The patient has a preop systolic and diastolic heart failure 3 postoperative left-sided chest tube which is still in place. Output is considerably high and the chest will Be kept in place and there is no evidence of pneumothorax. 4 acute kidney injury, nonoliguric, stable creatinine at 1.69 with a potassium level of 6.0. The care level needs to be repeated. 5 recent diagnosis of atrial flutter , he patient continues to have episodes of atrial flutter with a lower rate 6 diabetes mellitus with an episode of hypoglycemia currently on insulin sliding scale coverage and NPH insulin has been discontinued 7 hypertension 8 hyperlipidemia 9 COPD severe. Stable an FEV1 of 47% of predicted 10 acute hypoxic respiratory failure following thoracotomy bypass surgery, recovered currently on room air oxygen 11 chronic venous stasis in lower extremities bilaterally 12 BPH 13 postoperative blood loss anemia and the patient has received only 1 unit of packed RBC postop 14 postoperative bradycardia, amiodarone-induced Plan keep the chest tube in place. Incentive spirometer. Repeat the potassium level and treat this patient with D50 and insulin and bicarbonate the potassium level remains high.would also need a dose of calcium chloride to avoid any cardio effect of hyperkalemia.
[2018-12-14] MEDS ORDERED: FUROSEMIDE 10 MG/ML 4 ML VIAL IV STA (16:17)
[2018-12-14 17:20] LABS: Glucose,Whole Blood 180 mg/dL (75-99)
--- NOTE | 2018-12-14 18:00 | PN ---
PROGRESS NOTE DATE OF SERVICE: 12/14/2018 This 78-year-old gentleman with a past medical history of multiple medical problems was admitted CAD, CABG, and has improved significantly. The p.o. intake appears to be stabilizing. Blood sugars are being monitored. No chest pain. No palpitations. No fever. The patient does have hyperkalemia. On exam, alert and oriented x3. Pulse 76, blood pressure 107/56, respiration 22, temperature 97 degrees, pulse ox 96% on room air. HEENT: Conjunctivae normal. NECK: No jugular venous distention. CARDIOVASCULAR SYSTEM: S1, S2 muffled. RESPIRATORY SYSTEM: Breath sounds diminished at the bases. ABDOMEN: Soft, non-tender. NERVOUS SYSTEM: No focal deficit. LABS: WBC 16.3, hemoglobin 7.5. Sodium 130, potassium 6.7, creatinine 1.69. Accu-Cheks noted: 150, 158, 149, 180. ASSESSMENT: 1. Status post coronary artery disease, coronary artery bypass grafting. 2. History of recent acute pno-QM-huskwdw-elevation myocardial infarction, present on admission. 3. Hyperkalemia. 4. Diabetes mellitus, type 2, on insulin. 5. Congestive heart failure, acute exacerbation, with acute on chronic systolic dysfunction. 6. History of coronary artery disease. 7. History of congestive heart failure. 8. History of atrial fibrillation, paroxysmal. 9. History of diabetes mellitus, type 2. 10.Hyperlipidemia. 11.History of anemia. 12.Increased white count. 13.Increased creatinine with possible chronic kidney disease, stage III. RECOMMENDATIONS AND DISCUSSION: I recommend to continue current medications, continue with the monitoring, symptomatic treatment. I would also recommend following the electrolyte closely. Monitor blood sugars closely. Currently the patient is on insulin scale. We will continue to monitor. Further recommendations to follow. MMODL / IJN: [id number] /
[2018-12-14 20:29] LABS: Glucose,Whole Blood 241 mg/dL (75-99)
[2018-12-14] MEDS: SENNOSIDES-DOCUSATE SODIUM 1 EACH TAB PO SCH (20:46)
--- NOTE | 2018-12-14 22:06 | PN ---
PROGRESS NOTE Patient is seen for followup for acute kidney injury. He is status post coronary artery bypass surgery, overall doing fairly well. Serum creatinine was a little bit higher today. Patient did receive Lasix yesterday. His blood pressures have been slightly on the lower side with systolic in the 90s and one reading of 80/53. Potassium was elevated at 6.0 today. Patient did receive a dose of Kayexalate this morning. He is complaining of lower back pain. On examination this morning, blood pressure was 103/55, heart rate about 70 per minute. Patient is afebrile. EXAMINATION OF THE HEART: S1 and S2. EXAMINATION OF LUNGS: Decreased breath sounds at the bases. ABDOMEN: Soft. Examination of lower extremities shows edema 1+ bilaterally. Labs show sodium 130, potassium 6.0, BUN 52, serum creatinine 1.69, hemoglobin 7.5 g/dL. ASSESSMENT: 1. Acute kidney injury with serum creatinine higher today, mostly associated with low blood pressure. I did see a systolic blood pressure in the 80s early this morning. Currently patient has good urine output. He is not on any nephrotoxic medications. Patient has had a straight cath done after his Torres catheter was removed, as he has not been able to void on his own. However, he has not had significant retention. His urine volume on straight cath has been 150 and another reading of 200. He has had higher amount noted on bladder scan. However, this may be related to underlying ascites. 2. Mild volume overload. Expect improvement in the edema with increased oral intake and increased ambulation. Currently patient is comfortable from respiratory standpoint. He is not on any IV fluids. 3. Hyperkalemia associated with acute kidney injury. Blood sugars are not significantly uncontrolled. He did receive Kayexalate this morning. Repeat serum potassium was up to 6.7, and patient received one amp of D50 and 10 units of Humulin R. 4. Hypervolemic hyponatremia, currently stable. PLAN: Repeat labs this evening and again in a.m. Continue to avoid nephrotoxic agents. Try to avoid hypotension. Avoid high-potassium foods. MMODL / IJN: [id number] /
[2018-12-15] MEDS: HEPARIN SODIUM,PORCINE 5,000 UNIT/ML 1 ML VIAL SQ SCH ×3 (00:55→17:02)
[2018-12-15] MEDS: hydrALAZINE HCL 25 MG TAB PO SCH ×3 (00:55→17:02)
[2018-12-15] MEDS: ACETAMINOPHEN TAB 325 MG TAB PO PRN (00:55)
[2018-12-15 06:26] LABS: Anisocytosis Slight; Basophils % (A) 0 %; Eosinophils # (A) 0.4 k/uL (0-0.7); Eosinophils % (A) 3 %; HCT 24.7 % (39.0-53.0); HGB 7.8 gm/dL (13.0-17.5); Hypochromasia Slight; Lymphocytes # (A) 0.7 k/uL (1.0-4.8); Lymphocytes % (A) 5 %; MCH 27.1 pg (25.0-35.0); MCHC 31.8 g/dL (31.0-37.0); MCV 85.4 fL (80.0-100.0); Mean Platelet Volume 7.3; Monocytes # (A) 0.8 k/uL (0-1.0); Monocytes % (A) 6 %; Neutrophils # (A) 11.9 k/uL (1.3-7.7); Neutrophils % (A) 85 %; Platelet Count 235 k/uL (150-450); RBC 2.89 m/uL (4.30-5.90); RDW 16.6 % (11.5-15.5)
[2018-12-15 06:38] LABS: Calcium 7.7 mg/dL (8.4-10.2)
[2018-12-15 06:46] LABS: Potassium 5.1 mmol/L (3.5-5.1)
[2018-12-15 06:57] LABS: Glucose,Whole Blood 187 mg/dL (75-99)
[2018-12-15] MEDS: FERROUS SULFATE 325 MG TAB PO SCH ×2 (07:01→17:03)
[2018-12-15] MEDS: ASCORBIC ACID 500 MG TAB PO SCH ×2 (07:01→17:02)
[2018-12-15] MEDS: PANTOPRAZOLE 40 MG TABLET PO SCH (07:01)
[2018-12-15] MEDS: INSULIN ASPART (NovoLOG) 100 UNIT/ML VIAL SQ SCH ×4 (07:01→21:13)
--- NOTE | 2018-12-15 07:31 | XR ---
EXAMINATION TYPE: XR chest 1V portable DATE OF EXAM: 12/15/2018 COMPARISON: 12/14/2018 HISTORY: Post cardiac surgery TECHNIQUE: Single frontal view of the chest is obtained. FINDINGS: Postsurgical changes with left-sided chest tube. Bilateral consolidation and pleural effus ion. No sizable pneumothorax. Arthropathy of the shoulders. The heart remains enlarged. Is a calcifie d density in the right infrahilar region which is stable. PICC line seen to level the right axilla. IMPRESSION: Bilateral consolidation and small effusion. Correlate for mild central venous congestion . Basilar changes may been the basis of atelectasis or early infiltrate.
[2018-12-15] MEDS: TAMSULOSIN 0.4 MG CAP.ER.24H PO SCH ×2 (08:19→20:35)
[2018-12-15] MEDS: ATORVASTATIN 40 MG TAB PO SCH (08:19)
[2018-12-15] MEDS: METOPROLOL TARTRATE 25 MG TAB PO SCH ×2 (08:19→20:36)
[2018-12-15] MEDS: ASPIRIN 81 MG PO SCH (08:19)
[2018-12-15] MEDS: TRIAMCINOLONE ACET 0.1% OINTMENT 15 GM TUBE TOPICAL SCH ×2 (08:19→21:13)
[2018-12-15] MEDS: CLOPIDOGREL 75 MG TAB PO SCH (08:19)
[2018-12-15] MEDS ORDERED: FUROSEMIDE 10 MG/ML 4 ML VIAL IV STA (08:22)
--- NOTE | 2018-12-15 08:39 | P.PN ---
Subjective Progress Note Date: 12/15/18 Principal diagnosis: Severe triple vessel coronary artery disease, non-STEMI, acute on chronic systolic and diastolic heart failure with ejection fraction 40-45%, moderate left ventricular dysfunction with mild to moderate mitral valve regurgitation, right-sided pleural effusion status post thoracentesis with removal of 900 mL transudative fluid. 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 Preoperative leukocytosis, acute renal failure. POD #7 urgent quadruple coronary artery bypass grafting using the left internal mammary artery to the left anterior descending artery, reverse saphenous vein graft from the aorta to the first diagonal artery, reverse saphenous vein graft from the aorta to the first obtuse marginal artery, reverse saphenous vein graft from the aorta to the distal posterior lateral branch of the circumflex artery which is a dominant artery, bilateral pulmonary vein isolation using the radiofrequency bipolar clamp from [employer], intraoperative exclusion of the left atrial appendage using a 40 mm AtriClip, intraoperative transesophageal echocardiogram and epi-aortic scanning, and intraoperative graft flow m easurements using the [employer] system, endoscopic harvesting of bilateral saphenous veins from the groin to the knee level. Postoperative acute blood loss anemia, expected outcome of surgery given he modilution and cardiopulmonary bypass pump. Postoperative bradycardia, unexpected but potential outcome, likely medication induced Postoperative atrial flutter, expected outcome Acute urinary retention, unexpected The patient's currently sitting up in a recliner in no acute distress in the intensive care unit. Denies chest pain or shortness of breath, does continue to complain of being cold and that his butt hurts. Currently in back and forth between normal sinus rhythm with his heart rate in the 80s and atrial flutter with heart rate in the 60s, hemodynamically stable on no inotropes or pressors. Ambulated in the hallway yesterday with PT/OT/nursing, patient required two- person assist and has to take frequent breaks to sit to regain his strength. Pittman discontinued for the second time, trial void, incontinent x 1 but then had residual of 600 mL, pittman reinserted, urine culture sent. Objective - Vital Signs Vital signs: Vital Signs Temp 98 F 12/15/18 08:00 Pulse 87 12/15/18 08:00 Resp 10 L 12/15/18 08:00 BP 108/59 12/15/18 08:00 Pulse Ox 98 12/15/18 08:00 Intake & Output 12/14/18 12/15/18 12/15/18 18:59 06:59 18:59 Intake Total 500 175 240 Output Total 640 1590 105 Balance -140 -1415 135 Weight 96.3 kg 96.6 kg Intake: Oral 500 175 240 Output: Chest Tube Drainage 220 400 30 Left pleural 100 170 10 Right Pleural 120 230 20 Drainage 220 130 Left Calf 220 130 Urine 200 1060 75 Other: Voiding Method Urinal Indwelling Catheter Indwelling Catheter # Voids 1 # Bowel Movements 1 ABP, PAP, CO, CI - Last Documented Arterial Blood Pressure 140/54 Pulmonary Artery Pressure 49/20 Cardiac Output 4.2 Cardiac Index 2.3 - Constitutional General appearance: Present: cooperative, no acute distress, obese - Respiratory Details: Lungs sounds diminished bilaterally. Respirations even, nonlabored. Currently on room air with oxygen saturation 97%. Unable to use his incentive spirometry appropriately, patient does take deeper breaths without the incentive spirometry. Strong loose cough. Left pleural chest tube to continuous wall suction, 100 mL serous drainage overnight, 250 mL in the last 24 hours. Right pleural chest tube to continuous wall suction, 220 mL serous drainage overnight, 400 mL in the last 24 hours. No air leak present. - Cardiovascular Details: S1, S2 present. Regular rate and rhythm, sinus rhythm on telemetry. Sternum stable. A/V epicardial pacemaker wires present, grounded. Palpable extremity pulses present. Generalized edema present, although decreasing. Right brachial PICC line present. Heart hugger in place with patient unable to demonstrate appropriate use. SCDs, antiembolism stockings present. - Gastrointestinal Gastrointestinal Comment(s): Abdomen soft, nontender, nondistended, obese. Active bowel sounds present 4 quadrants. Tolerating diet. Positive bowel movement 12/14. - Genitourinary Genitourinary Comment(s): Pittman present draining clear, yellow urine. 600 mL output with reinitiation, 50-60 mL/hr thereafter. - Integumentary Integumentary Comment(s): Skin is warm and dry with evidence of good perfusion. Anterior chest incision well approximated covered with dry intact dressing. Bilateral lower extremity EVH site well approximated, FREDIS drains present with 320 mL serous drainage in the last 24 hours from left FREDIS. - Neurologic Neurologic: Present: CNII-XII intact - Musculoskeletal Musculoskeletal: Present: generalized weakness, strength equal bilaterally - Psychiatric Psychiatric: Present: A&O x's 3 - Allied health notes Allied health notes reviewed: nursing - Labs CBC & Chem 7: 12/15/18 06:17 12/15/18 06:17 Labs: Abnormal Lab Results - Last 24 Hours (Table) 12/14/18 12/14/18 12/14/18 Range/Units 11:49 11:51 17:17 WBC (3.8-10.6) k/uL RBC (4.30-5.90) m/uL Hgb (13.0-17.5) gm/dL Hct (39.0-53.0) % RDW (11.5-15.5) % Neutrophils # (1.3-7.7) k/uL Lymphocytes # (1.0-4.8) k/uL Sodium (137-145) mmol/L Potassium 6.7 H* (3.5-5.1) mmol/L BUN (9-20) mg/dL Creatinine (0.66-1.25) mg/dL Glucose (74-99) mg/dL POC Glucose (mg/dL) 149 H 180 H (75-99) mg/dL Calcium (8.4-10.2) mg/dL 12/14/18 12/15/18 12/15/18 Range/Units 20:27 06:17 06:17 WBC 14.0 H (3.8-10.6) k/uL RBC 2.89 L (4.30-5.90) m/uL Hgb 7.8 L (13.0-17.5) gm/dL Hct 24.7 L (39.0-53.0) % RDW 16.6 H (11.5-15.5) % Neutrophils # 11.9 H (1.3-7.7) k/uL Lymphocytes # 0.7 L (1.0-4.8) k/uL Sodium 131 L (137-145) mmol/L Potassium (3.5-5.1) mmol/L BUN 55 H (9-20) mg/dL Creatinine 1.53 H (0.66-1.25) mg/dL Glucose 132 H (74-99) mg/dL POC Glucose (mg/dL) 241 H (75-99) mg/dL Calcium 7.7 L (8.4-10.2) mg/dL 12/15/18 Range/Units 06:55 WBC (3.8-10.6) k/uL RBC (4.30-5.90) m/uL Hgb (13.0-17.5) gm/dL Hct (39.0-53.0) % RDW (11.5-15.5) % Neutrophils # (1.3-7.7) k/uL Lymphocytes # (1.0-4.8) k/uL Sodium (137-145) mmol/L Potassium (3.5-5.1) mmol/L BUN (9-20) mg/dL Creatinine (0.66-1.25) mg/dL Glucose (74-99) mg/dL POC Glucose (mg/dL) 187 H (75-99) mg/dL Calcium (8.4-10.2) mg/dL Microbiology - Last 24 Hours (Table) 12/14/18 11:14 Urine Culture - Preliminary Urine,Catheterized - Imaging and Cardiology Chest x-ray: report reviewed, image reviewed Assessment and Plan Assessment: 1. Severe triple-vessel coronary artery disease, non-STEMI, status post CABG 4 2. Acute on chronic systolic and diastolic heart failure with ejection fraction 40-45%, compensated 3. Moderate left ventricular dysfunction with mild to moderate mitral valve regurgitation 4. Right-sided pleural effusion status post thoracentesis with removal of 900 mL transudate of fluid 5. Leukocytosis 6. Acute on chronic renal failure 7. History of coronary artery disease with previous stents to the LAD in 2004, evidence of remote lateral wall myocardial infarction 8. Recent diagnosis of atrial flutter status post cardioversion on Eliquis for chronic for anticoagulation 9. Hypertension 10. Hyperlipidemia 11. Uncontrolled diabetes mellitus with hemoglobin A1c 7.8% 12. 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 Peripheral artery disease 14. Chronic venous stasis ulcers to his right lower extremity 15. Prostate disorder, chronic Flomax use 16. Postoperative acute blood loss anemia, status post transfusion 1 unit packed red blood cells 17. Postoperative bradycardia, possibly medication induced 18. Postoperative atrial flutter 19. Hyperkalemia, resolved 20. Urinary retention Plan: 1. Continue aspirin, statin, Plavix, hydralazine, beta alfred therapy. Will increase beta alfred therapy as tolerated. 2. Hold Amiodarone secondary to bradycardic episode after initiation. No anticoagulation yet until wires and tubes are pulled. 3. Bronchodilators per pulmonology. 4. Will give 40 mg IV lasix today. Continue Flomax. Urology consulted. 5. Encourage incentive spirometry 10 times every hour while awake. 6. Increase activity as tolerated. PT/OT/cardiac rehab following. 7. Will monitor daily labs and x-rays. Electrolyte replacement per protocol. No further transfusion. 8. Pain control with current medication regimen. No narcotics. 9. Insulin management per primary care service. Avoid hypoglycemia and hyperglycemia. 10. GI/DVT prophylaxis with Protonix and heparin, SCDs. 11. Venous stasis ulcer wound care per Dr. Eldridge. 12. Likely will discontinue left chest tube later today, continue right chest tube for another 24 hours, place to water seal 13. Transfer orders placed for [facility] cardiac step down unit, may transfer when bed available 14. Patient will likely need rehab at discharge secondary to weakness, social work has ready been consulted for placement. Dr. Meier consulted for possibility of IPR. 15. More recommendations based on patient's clinical course. Time with Patient: Greater than 30
[2018-12-15] MEDS: IPRATROPIUM-ALBUTEROL 3 ML NEB INHALATION SCH ×4 (08:46→20:03)
--- NOTE | 2018-12-15 10:08 | P.PN ---
Subjective Progress Note Date: 12/15/18 Principal diagnosis: subacute myocardial infarction with systolic congestive heart failure This is a 78-year-old white male with history of paroxysmal atrial flutter status post transesophageal echo and cardioversion in August of 2018. Patient has been following up at the [facility] for his cardiac issues. Although his previous cardioversion was done by few months back. Patient is also known to have history of type 2 diabetes, hypertension, and for the last week and a half, the patient has been complaining of shortness of breath and uncomfortable feeling in the chest. The uncomfortable feeling is described as heaviness in the chest. And this one and on for at least a day or so. He shortness of breath has become more progressive over the last week and a half, he was seen in the [facility] and he was sent to the emergency room for further evaluation. Upon presentation to the ER, patient was noted to be short of breath, chest x-ray showed evidence of pulmonary edema with bilateral pleural effusions, seen by cardiology while in the ER, his EKG was suggestive of inferior posterior wall MA, and patient was placed on Lasix drip, heparin, admitted to the intensive care unit, and I was asked to see him on consultation. Patient diuresed about 1 L of fluid overnight, however his chest x-ray continues to show bilateral pleural effusions, and I went ahead today and performed a right sided thoracentesis, I was able to drain about 900 mL of fluid from the right pleural space. The amount of the fluid on the left side was felt to be minimal, hence no need to perform thoracentesis on the left side at this point. In the meantime the patient was placed back on heparin, placed back on his cardiac meds, remains on diuretics, and may give a require cardiac catheterization. However his renal functioning has been noted to be compromise, and needs to be monitored. His CBC on admission showed WBC count of 11.8 hemoglobin of 13.8, his BUN was 31, and creatinine of 1.56. Blood sugar was noted to be 440, hence the patient was started on insulin drip upon arrival to the ICU last night. Troponin was significantly elevated at 26.4 and his BNP level was 23,300. Influenza screen was negative. Patient was reevaluated today on 12/02/2018, patient is feeling better, breathing a lot easier, his chest x-ray showed improvement, hardly any fluid in both lungs except for a small tiny right-sided pleural effusion/residual from his last thoracentesis. Patient is being considered for possible cardiac catheterization today. However his renal functioning is a bit worse today compared to yesterday.BUN is 59 and creatinine is 2.01. Patient is off Lasix drip, however he is on Lasix IV push. His urine output is excellent. Patient has no cough no wheezing no shortness of breath no chest pain. All labs were reviewed today, he has a bit of leukocytosis with WBC count of 19.5, otherwise CBC is normal, and renal profile as noted above. Chest x-ray as noted earlier. Reevaluated today on 12/03/2018, patient continues to do well, his cardiac catheterization was postponed until Wednesday mostly because of his worsening renal functioning. Pulmonary-gaspar the patient is doing better, breathing a lot easier, denies any cough no wheezing no shortness of breath. And his chest x- ray continues to show complete resolution of his bilateral pleural effusions and pulmonary edema. WBC count is a bit elevated at 17.7, PTT is therapeutic, electrolytes are normal renal profile is improving BUN is down to 69 creatinine is down to 1.74. The patient is seen today 12/04/2018 in follow-up on the selective care unit. He is currently awake and alert in no acute distress. Up ambulating in his room. He denies any worsening shortness of breath, cough or congestion. He is maintaining good O2 saturations in the 90s on room air. He has been afebrile. Hemodynamically stable. Pleural fluid culture reveals no growth. Blood culture reveals no growth. White count 15.7. Hemoglobin 15.3. Creatinine 1.50. On 12/05/2018 patient seen in follow-up on selective care unit, patient had just returned from heart catheterization and he was found to have 60-70% lesion of the proximal LAD, first diagonal branch was 70-80% stenosis, and 99% stenosis of the ostium of the circumflex and RCA lesion of 95%. He is resting comfortably in bed currently, he is eating lunch, no complaints of chest pain or shortness of breath, referral was put in for cardiothoracic surgery for possibility of bypass grafting. On 12/06/2018 patient seen in follow-up on selective care unit, patient surgery is scheduled for , he sitting up in a recliner, in no acute distress, no shortness of breath or chest pain, lung sounds are positive for bibasilar rales, no significant rhonchi or wheezing. 0.9 normal saline at a rate of 50 ML per hour, heparin drip at 800 units per hour. One blood cell count is 23.4, hemoglobin is 15.2, sodium is 140, potassium is 4.9, chloride is 105, CO2 33, BUN is 53, creatinine is 1.34. Bedside PFT showed FEV1 of 47% of predicted, moderately severe obstructive pulmonary defect On 12/15/2018 patient seen in follow-up in intensive care unit, he is awake and alert, in no acute distress, sitting up in the recliner, he is on room air, his pulse ox is 96%, dynamically stable, afebrile. IS effort remains poor, patient is barely 0.500 mL on incentive spirometer, today's chest x-ray has been reviewed with Dr. Jacob, and shows bilateral consolidation and small pleural effusions, mild central venous congestion. Left pleural chest tubes are draining serous drainage, there has been 400 mL out of the right chest tube, and 250 mL out of the left chest tube, Torres catheter is in place, patient is nonoliguric, patient has been up ambulating, tolerates activity fairly well, today's labs have been reviewed, white blood cell count is 14.0, hemoglobin 7.8. Lung sounds are clear, diminished at the bases. Heart rate is controlled, patient is having some episodes of atrial flutter alternating with sinus rhythm. Torres catheter has been discontinued, but patient is having some incontinencre and urinary retention, and the Torres had to be replaced, urine culture has been sent. Objective - Vital Signs Vital signs: Vital Signs Temp 98 F 12/15/18 08:00 Pulse 68 12/15/18 09:39 Resp 10 L 12/15/18 08:00 BP 108/59 12/15/18 08:00 Pulse Ox 96 12/15/18 09:36 Intake & Output 12/14/18 12/15/18 12/15/18 18:59 06:59 18:59 Intake Total 500 175 240 Output Total 640 1590 105 Balance -140 -1415 135 Weight 96.3 kg 96.6 kg Intake: Oral 500 175 240 Output: Chest Tube Drainage 220 400 30 Left pleural 100 170 10 Right Pleural 120 230 20 Drainage 220 130 Left Calf 220 130 Urine 200 1060 75 Other: Voiding Method Urinal Indwelling Catheter Indwelling Catheter # Voids 1 # Bowel Movements 1 ABP, PAP, CO, CI - Last Documented Arterial Blood Pressure 140/54 Pulmonary Artery Pressure 49/20 Cardiac Output 4.2 Cardiac Index 2.3 - Exam GENERAL EXAM: Alert, pleasant, 78-year-old white male comfortable in no apparent distress. HEAD: Normocephalic/atraumatic. EYES: Normal reaction of pupils, equal size. Conjunctiva pink, sclera white. NOSE: Clear with pink turbinates. THROAT: No erythema or exudates. NECK: No masses, no JVD, no thyroid enlargement, no adenopathy. CHEST: No chest wall deformity. Symmetrical expansion. Midsternal incision is clean dry and intact, well approximated, and chest tube sites are clean dry and intact. Left pleural chest tubes are draining serous fluid LUNGS: Equal air entry with basilar crackles CVS: Regular rate and rhythm, normal S1 and S2, no gallops, no murmurs, no rubs ABDOMEN: Soft, nontender. No hepatosplenomegaly, normal bowel sounds, no guarding or rigidity. EXTREMITIES: No clubbing, no edema, no cyanosis, 2+ pulses and upper and lower extremities. MUSCULOSKELETAL: Muscle strength and tone normal. SPINE: No scoliosis or deformity SKIN: No rashes CENTRAL NERVOUS SYSTEM: Alert and oriented -3. No focal deficits, tone is normal in all 4 extremities. PSYCHIATRIC: Alert and oriented -3. Appropriate affect. Intact judgment and insight. - Labs CBC & Chem 7: 12/15/18 06:17 12/15/18 06:17 Labs: Abnormal Lab Results - Last 24 Hours (Table) 12/14/18 12/14/18 12/14/18 Range/Units 11:49 11:51 17:17 WBC (3.8-10.6) k/uL RBC (4.30-5.90) m/uL Hgb (13.0-17.5) gm/dL Hct (39.0-53.0) % RDW (11.5-15.5) % Neutrophils # (1.3-7.7) k/uL Lymphocytes # (1.0-4.8) k/uL Sodium (137-145) mmol/L Potassium 6.7 H* (3.5-5.1) mmol/L BUN (9-20) mg/dL Creatinine (0.66-1.25) mg/dL Glucose (74-99) mg/dL POC Glucose (mg/dL) 149 H 180 H (75-99) mg/dL Calcium (8.4-10.2) mg/dL 12/14/18 12/15/18 12/15/18 Range/Units 20:27 06:17 06:17 WBC 14.0 H (3.8-10.6) k/uL RBC 2.89 L (4.30-5.90) m/uL Hgb 7.8 L (13.0-17.5) gm/dL Hct 24.7 L (39.0-53.0) % RDW 16.6 H (11.5-15.5) % Neutrophils # 11.9 H (1.3-7.7) k/uL Lymphocytes # 0.7 L (1.0-4.8) k/uL Sodium 131 L (137-145) mmol/L Potassium (3.5-5.1) mmol/L BUN 55 H (9-20) mg/dL Creatinine 1.53 H (0.66-1.25) mg/dL Glucose 132 H (74-99) mg/dL POC Glucose (mg/dL) 241 H (75-99) mg/dL Calcium 7.7 L (8.4-10.2) mg/dL 12/15/18 Range/Units 06:55 WBC (3.8-10.6) k/uL RBC (4.30-5.90) m/uL Hgb (13.0-17.5) gm/dL Hct (39.0-53.0) % RDW (11.5-15.5) % Neutrophils # (1.3-7.7) k/uL Lymphocytes # (1.0-4.8) k/uL Sodium (137-145) mmol/L Potassium (3.5-5.1) mmol/L BUN (9-20) mg/dL Creatinine (0.66-1.25) mg/dL Glucose (74-99) mg/dL POC Glucose (mg/dL) 187 H (75-99) mg/dL Calcium (8.4-10.2) mg/dL Microbiology - Last 24 Hours (Table) 12/14/18 11:14 Urine Culture - Preliminary Urine,Catheterized Assessment and Plan Plan: 1 subacute inferoposterior myocardial infarction 2 acute congestive heart failure secondary to subacute myocardial infarction, suspect ischemic cardiomyopathy and impaired LV function with ejection fraction 40-45% 3 multivessel coronary artery disease, patient may need coronary artery bypass grafting 4 type 2 diabetes, on insulin patient is normally on glipizide insulin and metformin. 5 hypertension, patient is normally on Lopressor 6 hyperlipidemia 7 history of atrial flutter requiring cardioversion in August of 2018. 8 history of underlying coronary artery disease, and previous PCI. 9 status post right sided thoracentesis, fluid was reviewed today, and it is transudative in nature, this is cardiac in nature and not related to infection. Plan: Continue encouraging deep breathing and coughing, today's chest x-ray has been reviewed with Dr. Jacob central vascular congestion, small bilateral pleural effusions, hemodynamically patient remains stable, possible removal of the left chest tube today per cardiothoracic surgery. Heart rate is controlled, patient is on oral anticoagulation. Patient will receive a dose of IV Lasix. Encourage ambulation, possible discharge to the floor today. I performed a history & physical examination of the patient and discussed their management with my nurse practitioner, Demetria Ramos. I reviewed the nurse practitioner's note and agree with the documented findings and plan of care. Lung sounds are positive for clear breath sounds. The findings and the impression was discussed with the patient. I attest to the documentation by the nurse practitioner. Time with Patient: Less than 30
[2018-12-15 11:53] LABS: Glucose,Whole Blood 182 mg/dL (75-99)
--- NOTE | 2018-12-15 13:31 | PN ---
PROGRESS NOTE The patient is seen for followup for acute kidney injury and hyperkalemia. The patient has had to have the Torres catheter reinserted. His potassium has improved to 5.1. Serum creatinine is also better at about 1.53. The patient has been voiding. He denies any other significant complaints. PHYSICAL EXAMINATION: On examination today, blood pressure this morning was 108/59, heart rate 87 per minute. He is afebrile. EXAMINATION OF THE HEART: S1 and S2. EXAMINATION OF THE LUNGS: Decreased breath sounds at the bases. Abdomen is soft, nontender. Examination of the lower extremities shows edema 1+ bilaterally. Both extremities are wrapped. [employer] exam is grossly intact. LABS: Labs show sodium 131, potassium 5.1, BUN 55, serum creatinine 1.53. Hemoglobin 7.8 g/dL. Calcium 7.7. ASSESSMENT: 1. Acute kidney injury, acute tubular necrosis, currently nonoliguric, somewhat improved today. 2. Hyperkalemia associated with acute kidney injury, currently improved, status post Kayexalate and patient also had an IV D50 and insulin yesterday. 3. Status post coronary artery bypass surgery and doing very well. 4. Anemia, multifactorial. PLAN: Continue to encourage increased oral intake. We can try voiding trials again later on. Continue to avoid nephrotoxic agents. Repeat labs in a.m. MMODL / IJN: [id number] /
[2018-12-15 16:55] LABS: Glucose,Whole Blood 220 mg/dL (75-99)
--- NOTE | 2018-12-15 17:30 | PN ---
PROGRESS NOTE DATE OF SERVICE: 12/15/2018 This 78-year-old gentleman who was admitted after CAD, CABG, also had uncontrolled blood sugars. The patient also had slightly erratic p.o. intake. Today the patient is eating better. No chest pain. No palpitations. Patient went into hypoglycemia on multiple occasions. Patient currently is on insulin scale only. No chest pain. No palpitations. No fever. On exam, alert and oriented x3. Pulse is 72, blood pressure 102/59, respiration 10, temperature 98 degrees, pulse ox 98% on room air. HEENT: Conjunctivae normal. NECK: No jugular venous distention. CARDIOVASCULAR SYSTEM: S1, S2 muffled. RESPIRATORY SYSTEM: Breath sounds diminished at the bases. A few scattered rhonchi. No crackles. ABDOMEN: Soft, non-tender. LEGS: No edema. No swelling. NERVOUS SYSTEM: No focal deficit. LABS: WBC 14, hemoglobin 7.8, sodium 139, creatinine 1.53. ASSESSMENT: 1. Status post coronary artery disease, coronary artery bypass grafting. 2. History of recent acute bvw-GB-uclnnbi-elevation myocardial infarction, present on admission. 3. Hyperkalemia. 4. Diabetes mellitus, type 2, on insulin. 5. Congestive heart failure, acute exacerbation, with acute on chronic systolic dysfunction. 6. History of coronary artery disease. 7. History of congestive heart failure. 8. History of atrial fibrillation, paroxysmal. 9. History of diabetes mellitus, type 2. 10.Hyperlipidemia. 11.History of anemia. 12.Increased white count. 13.Increased creatinine with possible chronic kidney disease, stage III. RECOMMENDATIONS AND DISCUSSION: I recommend to continue current medications, continue with the monitoring, symptomatic treatment. Continue the scale. Blood sugars are trending up. Long-acting insulin is being restarted, especially at night at a low dose. Further recommendations to follow. MMODL / IJN: [id number] /
--- NOTE | 2018-12-15 20:18 | P.PN ---
Subjective Patient is sitting up comfortably in a chair. He looks pale. Heart rate 7 the normal range Blood pressure 98/48 mmHg Breath sounds are clear no rhonchi no crackles Heart sounds S1 and S2 are normal Abdomen is soft Has a puffy Impression Coronary artery disease status post coronary artery bypass grafting Intrathoracic bleeding. Hemoglobin is stable at this time the progress suggest Continue current medications and CT surgery care Objective - Vital Signs Vital signs: Vital Signs Temp 97 F L 12/15/18 16:00 Pulse 90 12/15/18 20:01 Resp 20 12/15/18 20:01 BP 98/48 12/15/18 16:00 Pulse Ox 99 12/15/18 19:00 Intake & Output 12/15/18 12/15/18 12/16/18 06:59 18:59 06:59 Intake Total 175 480 Output Total 1590 1015 Balance -1415 -535 Weight 96.6 kg Intake: Oral 175 480 Output: Chest Tube Drainage 400 70 Left pleural 170 10 Right Pleural 230 60 Drainage 130 45 Left Calf 130 45 Urine 1060 900 Other: Voiding Method Indwelling Catheter Indwelling Catheter # Voids 1 ABP, PAP, CO, CI - Last Documented Arterial Blood Pressure 140/54 Pulmonary Artery Pressure 49/20 Cardiac Output 4.2 Cardiac Index 2.3 - Labs CBC & Chem 7: 12/15/18 06:17 12/15/18 06:17 Labs: Abnormal Lab Results - Last 24 Hours (Table) 12/14/18 12/15/18 12/15/18 Range/Units 20:27 06:17 06:17 WBC 14.0 H (3.8-10.6) k/uL RBC 2.89 L (4.30-5.90) m/uL Hgb 7.8 L (13.0-17.5) gm/dL Hct 24.7 L (39.0-53.0) % RDW 16.6 H (11.5-15.5) % Neutrophils # 11.9 H (1.3-7.7) k/uL Lymphocytes # 0.7 L (1.0-4.8) k/uL Sodium 131 L (137-145) mmol/L BUN 55 H (9-20) mg/dL Creatinine 1.53 H (0.66-1.25) mg/dL Glucose 132 H (74-99) mg/dL POC Glucose (mg/dL) 241 H (75-99) mg/dL Calcium 7.7 L (8.4-10.2) mg/dL 12/15/18 12/15/18 12/15/18 Range/Units 06:55 11:52 16:54 WBC (3.8-10.6) k/uL RBC (4.30-5.90) m/uL Hgb (13.0-17.5) gm/dL Hct (39.0-53.0) % RDW (11.5-15.5) % Neutrophils # (1.3-7.7) k/uL Lymphocytes # (1.0-4.8) k/uL Sodium (137-145) mmol/L BUN (9-20) mg/dL Creatinine (0.66-1.25) mg/dL Glucose (74-99) mg/dL POC Glucose (mg/dL) 187 H 182 H 220 H (75-99) mg/dL Calcium (8.4-10.2) mg/dL Microbiology - Last 24 Hours (Table) 12/14/18 11:14 Urine Culture - Preliminary Urine,Catheterized
[2018-12-15 20:24] LABS: Glucose,Whole Blood 244 mg/dL (75-99)
[2018-12-15] MEDS: SENNOSIDES-DOCUSATE SODIUM 1 EACH TAB PO SCH (20:35)
[2018-12-16] MEDS: hydrALAZINE HCL 25 MG TAB PO SCH ×5 (00:34→23:32)
[2018-12-16] MEDS: HEPARIN SODIUM,PORCINE 5,000 UNIT/ML 1 ML VIAL SQ SCH ×4 (00:34→23:32)
[2018-12-16] MEDS: ACETAMINOPHEN TAB 325 MG TAB PO PRN ×3 (01:20→20:38)
[2018-12-16 05:50] LABS: Anisocytosis Slight; HCT 22.4 % (39.0-53.0); HGB 7.5 gm/dL (13.0-17.5); Hypochromasia Slight; MCH 27.8 pg (25.0-35.0); MCHC 33.4 g/dL (31.0-37.0); MCV 83.2 fL (80.0-100.0); Mean Platelet Volume 7.4; Platelet Count 257 k/uL (150-450); Poikilocytosis Slight; RBC 2.69 m/uL (4.30-5.90); RDW 17.1 % (11.5-15.5); WBC 12.1 k/uL (3.8-10.6)
[2018-12-16 06:12] LABS: Calcium 7.7 mg/dL (8.4-10.2); Potassium 4.9 mmol/L (3.5-5.1)
[2018-12-16 07:16] LABS: Glucose,Whole Blood 185 mg/dL (75-99)
--- NOTE | 2018-12-16 07:37 | XR ---
EXAMINATION TYPE: XR chest 2V DATE OF EXAM: 12/16/2018 HISTORY: Shortness of breath. COMPARISON: 12/15/2018 TECHNIQUE: Single view of the chest is submitted. FINDINGS: Left-sided chest tube has been removed. No evidence for sizable pneumothorax. Right basilar chest tub e remains in place. Scattered pleural-parenchymal opacities remain stable. The heart is stable. Hilar and mediastinal structures are within normal limits. Degenerative changes are seen of the dorsal spine. IMPRESSION: 1. Left-sided chest tube has been removed. No evidence for sizable pneumothorax. Right basilar chest tube remains in place. 2. Scattered pleural-parenchymal opacities remain stable.
[2018-12-16] MEDS: ASCORBIC ACID 500 MG TAB PO SCH ×2 (07:41→17:31)
[2018-12-16] MEDS: PANTOPRAZOLE 40 MG TABLET PO SCH (07:41)
[2018-12-16] MEDS: FERROUS SULFATE 325 MG TAB PO SCH ×2 (07:41→17:31)
[2018-12-16] MEDS: INSULIN ASPART (NovoLOG) 100 UNIT/ML VIAL SQ SCH ×4 (07:43→20:49)
[2018-12-16] MEDS: IPRATROPIUM-ALBUTEROL 3 ML NEB INHALATION SCH ×4 (08:11→20:26)
[2018-12-16] MEDS: TRIAMCINOLONE ACET 0.1% OINTMENT 15 GM TUBE TOPICAL SCH ×2 (08:15→20:50)
[2018-12-16] MEDS: TAMSULOSIN 0.4 MG CAP.ER.24H PO SCH ×2 (08:16→20:39)
[2018-12-16] MEDS: ATORVASTATIN 40 MG TAB PO SCH (08:16)
[2018-12-16] MEDS: CLOPIDOGREL 75 MG TAB PO SCH (08:16)
[2018-12-16] MEDS: ASPIRIN 81 MG PO SCH (08:16)
[2018-12-16] MEDS: METOPROLOL TARTRATE 25 MG TAB PO SCH ×2 (08:28→20:39)
[2018-12-16] MEDS ORDERED: CALCIUM GLUCONATE 1 GM in SODIUM CHLORIDE 0.9% 100 ML IVPB ONE (10:24)
[2018-12-16] MEDS ORDERED: FUROSEMIDE 10 MG/ML 4 ML VIAL IV STA (10:25)
--- NOTE | 2018-12-16 10:26 | P.PN ---
Subjective Progress Note Date: 12/16/18 Principal diagnosis: Severe triple vessel coronary artery disease with a critical lesion involving the ostium of the circumflex, proximal right coronary artery and multiple lesions to the left anterior descending coronary artery and diagonal coronary artery, non-ST elevated myocardial infarction with elevated troponins as high as 28.600 this admission, congestive heart failure, acute on chronic systolic and diastolic with an ejection fraction 40-45%, moderate left ventricular diastolic dysfunction with mild to moderate mitral valve regurgitation, history of coronary artery disease with previous stent placement to his left anterior descending coronary artery in 2004, recent diagnosis of atrial flutter status post cardioversion on chronic Eliquis for home anticoagulation, right pleural effusion status post right thoracentesis with 900 mL of yellow fluid drained this admission, obesity, venous stasis ulcers to his right lower extremity, diabetes mellitus type 2 with an admission hemoglobin A1c of 7.8%, history of hypertension, hyperlipidemia, severe COPD with a preoperative FEV1 47% of predicted value, peripheral arterial disease with lower ABIs < 0.9 and prostate disorder. POD #8 urgent quadruple coronary artery bypass grafting using the left internal mammary artery to the left anterior descending artery,a reverse greater saphenous vein graft from the aorta to the first diagonal artery,a reverse greater saphenous vein graft from the aorta to the first obtuse marginal artery, a reverse greater saphenous vein graft from the aorta to the distal posterior lateral branch of the circumflex artery which is a dominant artery, bilateral pulmonary vein isolation using the radiofrequency bipolar clamp from [employer], intraoperative exclusion of the left atrial appendage using a 40 mm AtriClip, intraoperative transesophageal echocardiogram and epi-aortic scanning, and intraoperative graft flow measurements using the [employer] system, endoscopic harvesting of bilateral saphenous veins from the groin to the knee level. Postoperative acute blood loss anemia, expected outcome of surgery given hemodilution and cardiopulmonary bypass pump. Postoperative bradycardia, an unexpected but potential outcome, likely medication induced. Postoperative atrial flutter, an expected outcome due to his preoperative atrial flutter. Acute urinary retention, an unexpected outcome. The patient is currently sitting up to the bedside chair in no acute distress. He is complaining of pain 10 out of 10 to his buttocks, denies any complaints of shortness of breath. Oxygen saturation are 99% on room air and he is achieving 500 mL on his incentive spirometry. Torres catheter remains in place due to his urinary retention and for accurate I&O. The bedside monitor and storage bin tender is showing normal sinus rhythm heart rate 83 with periodic episodes of atrial flutter. He ambulated in the intensive care unit hallway this morning with 2 person assist. He remains hemodynamically stable and is currently on no inotropic or pressor support. He is tolerating oral intake and denies any complaints of nausea. Objective - Vital Signs Vital signs: Vital Signs Temp 96.6 F L 12/16/18 07:00 Pulse 90 12/16/18 08:12 Resp 18 12/16/18 07:00 BP 107/62 12/16/18 04:00 Pulse Ox 98 12/16/18 08:12 Intake & Output 12/15/18 12/16/18 12/16/18 18:59 06:59 18:59 Intake Total 480 580 Output Total 1015 1320 Balance -535 -740 Weight 92.8 kg Intake: Oral 480 580 Output: Chest Tube Drainage 70 180 Left pleural 10 Right Pleural 60 180 Drainage 45 190 Left Calf 45 190 Urine 900 950 Other: Voiding Method Indwelling Catheter Indwelling Catheter # Voids 1 ABP, PAP, CO, CI - Last Documented Arterial Blood Pressure 140/54 Pulmonary Artery Pressure 49/20 Cardiac Output 4.2 Cardiac Index 2.3 - Constitutional General appearance: Present: cooperative, no acute distress, obese - Respiratory Details: Lungs sounds are essentially clear to his bilateral upper lobes, diminished to his bilateral bases. Respirations are symmetrical and nonlabored. Oxygen saturation are 99% on room air. He is achieving 500 mL on his incentive spirometry with encouragement. Right pleural chest tube remains in place to low continuous wall suction at -20 cm H2O. Draining thin serosanguineous drainage. No air leak is present. 240 mL output in the last 24 hours, 140 mL output in the last 8 hours. - Cardiovascular Details: Regular rhythm and rate. S1 and S2 present, negative for S3, gallop or murmur. Sternum is stable. Bedside telemetry showing normal sinus rhythm heart rate 82. Atrial and ventricular epicardial pacemaker wires intact and grounded. Generalized +1 edema to his bilateral upper and lower extremities. Right brachial PICC line present and functioning. Heart hugger is in place and he is demonstrating appropriate use. Knee-high DAV hose and sequential compression devices in place to his bilateral lower extremities. - Gastrointestinal Gastrointestinal Comment(s): Abdomen is soft, nontender and nondistended. Hypoactive bowel sounds present in all 4 abdominal quadrants. Tolerating oral intake. No guarding or rigidity. - Genitourinary Genitourinary Comment(s): Torres catheter for accurate I&O and urine retention. Draining clear tom urine. 450 mL output in the last 8 hours. - Integumentary Integumentary Comment(s): Skin is warm and dry. No clubbing or cyanosis is present. Midline sternal incision is clean, dry and approximated. No drainage or redness is present. Gauze dressing is clean, dry and intact. Bilateral lower extremity EVH sites are clean, dry and approximated. No drainage or redness is present. Left leg FREDIS drain remains in place draining thin serosanguineous drainage. 235 mL output in the last 8 hours, 80 mL output in the last 8 hours. - Neurologic Neurologic: Present: CNII-XII intact - Musculoskeletal Musculoskeletal: Present: generalized weakness, right sided weakness - Psychiatric Psychiatric: Present: A&O x's 3, appropriate affect, intact judgment & insight - Allied health notes Allied health notes reviewed: nursing - Labs CBC & Chem 7: 12/16/18 05:28 12/16/18 05:28 Labs: Abnormal Lab Results - Last 24 Hours (Table) 12/15/18 12/15/18 12/15/18 Range/Units 11:52 16:54 20:22 WBC (3.8-10.6) k/uL RBC (4.30-5.90) m/uL Hgb (13.0-17.5) gm/dL Hct (39.0-53.0) % RDW (11.5-15.5) % Sodium (137-145) mmol/L BUN (9-20) mg/dL Creatinine (0.66-1.25) mg/dL Glucose (74-99) mg/dL POC Glucose (mg/dL) 182 H 220 H 244 H (75-99) mg/dL Calcium (8.4-10.2) mg/dL 12/16/18 12/16/18 12/16/18 Range/Units 05:28 05:28 07:14 WBC 12.1 H (3.8-10.6) k/uL RBC 2.69 L (4.30-5.90) m/uL Hgb 7.5 L (13.0-17.5) gm/dL Hct 22.4 L (39.0-53.0) % RDW 17.1 H (11.5-15.5) % Sodium 131 L (137-145) mmol/L BUN 51 H (9-20) mg/dL Creatinine 1.49 H (0.66-1.25) mg/dL Glucose 163 H (74-99) mg/dL POC Glucose (mg/dL) 185 H (75-99) mg/dL Calcium 7.7 L (8.4-10.2) mg/dL Microbiology - Last 24 Hours (Table) 12/14/18 11:14 Urine Culture - Final Urine,Catheterized - Imaging and Cardiology Chest x-ray: report reviewed, image reviewed Assessment and Plan Assessment: 1. Severe triple-vessel coronary artery disease, non-STEMI, status post CABG 4 2. Acute on chronic systolic and diastolic heart failure with an ejection fraction 40-45%, compensated 3. Moderate left ventricular dysfunction with mild to moderate mitral valve regurgitation 4. Right-sided pleural effusion status post thoracentesis with removal of 900 mL transudate of fluid 5. Leukocytosis 6. Acute on chronic renal failure 7. History of coronary artery disease with previous stents to the LAD in 2004, evidence of remote lateral wall myocardial infarction 8. Recent diagnosis of atrial flutter status post cardioversion on Eliquis for chronic for anticoagulation 9. Hypertension 10. Hyperlipidemia 11. Uncontrolled diabetes mellitus with hemoglobin A1c 7.8% 12. 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 Peripheral artery disease 14. Chronic venous stasis ulcers to his right lower extremity 15. Prostate disorder, chronic Flomax use 16. Postoperative acute blood loss anemia, status post transfusion 1 unit packed red blood cells 17. Postoperative bradycardia, possibly medication induced 18. Hyperkalemia, resolved 19. Postoperative urinary retention and advanced lysis Plan: 1. Continue aspirin, statin, Plavix, hydralazine and beta alfred. Will increase beta alfred as tolerated. 2. Continue to hold Amiodarone secondary to bradycardic episode after initiation. No anticoagulation yet until epicardial pacemaker wires and chest tubes are pulled. 3. Bronchodilators per pulmonology management. 4. Albumin 25% IV piggyback 1 now followed by Lasix 40 mg IV 1 now. Continue Flomax. Urology has been consulted for urinary retention. 5. Encourage use of his incentive spirometry 10 times every hour while awake. 6. Increase activity as tolerated. PT/OT/cardiac rehab following. 7. Will monitor daily labs and x-rays. Electrolyte replacement per protocol. 8. Pain control with current medication regimen. No narcotics. 9. Insulin management per primary care service. 10. GI/DVT prophylaxis with Protonix and heparin, SCDs. 11. Venous stasis ulcer wound care per Dr. Eldridge. 12. Continue right pleural chest tube for another 24 hours, place to water seal 13. Calcium gluconate 1 g IV piggyback 1 now. 14. Transfer to [address] [place] [address] cardiac step down unit when bed available. 15. Patient will likely need rehab at discharge secondary to weakness, social work is following. Dr. Meier consult noted and appreciated. 16. More recommendations to follow based on patient's clinical course. Time with Patient: Greater than 30
[2018-12-16] MEDS ORDERED: ALBUMIN HUMAN 25% 50 ML in EMPTY BAG 1 BAG IVPB ONE (10:30)
[2018-12-16 12:22] LABS: Glucose,Whole Blood 212 mg/dL (75-99)
--- NOTE | 2018-12-16 14:21 | P.PN ---
Subjective Patient's condition remains unchanged. He is sitting up in chair looks comfortable No respiratory distress. Swelling the hands is a bit better Breath sounds are clear Heart sounds was to soft Abdomen is soft Blood pressure 107/62 mmHg pulse rate in the 80s afebrile Extremities are warm no edema Abdomen is soft Heart sounds S1 and S2 are distant but soft no murmurs Impression Coronary artery disease status post coronary artery bypass grafting Anemia following coronary artery bypass grafting Low hemoglobin Suggest Continue supportive ICU care as well as possibly surgery Continue cardiac medications Objective - Vital Signs Vital signs: Vital Signs Temp 96.6 F L 12/16/18 07:00 Pulse 82 12/16/18 12:01 Resp 18 12/16/18 07:00 BP 107/62 12/16/18 04:00 Pulse Ox 98 12/16/18 08:12 Intake & Output 12/15/18 12/16/18 12/16/18 18:59 06:59 18:59 Intake Total 480 580 390 Output Total 1015 1320 525 Balance -402 -740 -135 Weight 92.8 kg Intake: Intake, IV Titration 150 Amount Albumin Human 25% 50 ml 50 In Empty Bag 1 bag @ 50 mls/hr IVPB ONCE ONE Rx#: [id number] Calcium Gluconate 1 gm In 100 Sodium Chloride 0.9% 100 ml @ 100 mls/hr IVPB ONCE ONE Rx#:[id number] Oral 480 580 240 Output: Chest Tube Drainage 70 180 170 Left pleural 10 Right Pleural 60 180 170 Drainage 45 190 85 Left Calf 45 190 85 Urine 900 950 270 Other: Voiding Method Indwelling Catheter Indwelling Catheter # Voids 1 ABP, PAP, CO, CI - Last Documented Arterial Blood Pressure 140/54 Pulmonary Artery Pressure 49/20 Cardiac Output 4.2 Cardiac Index 2.3 - Labs CBC & Chem 7: 12/16/18 05:28 12/16/18 05:28 Labs: Abnormal Lab Results - Last 24 Hours (Table) 12/15/18 12/15/18 12/16/18 Range/Units 16:54 20:22 05:28 WBC 12.1 H (3.8-10.6) k/uL RBC 2.69 L (4.30-5.90) m/uL Hgb 7.5 L (13.0-17.5) gm/dL Hct 22.4 L (39.0-53.0) % RDW 17.1 H (11.5-15.5) % Sodium (137-145) mmol/L BUN (9-20) mg/dL Creatinine (0.66-1.25) mg/dL Glucose (74-99) mg/dL POC Glucose (mg/dL) 220 H 244 H (75-99) mg/dL Calcium (8.4-10.2) mg/dL 12/16/18 12/16/18 12/16/18 Range/Units 05:28 07:14 11:43 WBC (3.8-10.6) k/uL RBC (4.30-5.90) m/uL Hgb (13.0-17.5) gm/dL Hct (39.0-53.0) % RDW (11.5-15.5) % Sodium 131 L (137-145) mmol/L BUN 51 H (9-20) mg/dL Creatinine 1.49 H (0.66-1.25) mg/dL Glucose 163 H (74-99) mg/dL POC Glucose (mg/dL) 185 H 212 H (75-99) mg/dL Calcium 7.7 L (8.4-10.2) mg/dL Microbiology - Last 24 Hours (Table) 12/14/18 11:14 Urine Culture - Final Urine,Catheterized
--- NOTE | 2018-12-16 14:55 | P.PN ---
Subjective Progress Note Date: 12/16/18 This is a 78-year-old white male with history of paroxysmal atrial flutter status post transesophageal echo and cardioversion in August of 2018. Patient has been following up at the [place] [facility] for his cardiac issues. Although his previous cardioversion was done by few months back. Patient is also known to have history of type 2 diabetes, hypertension, and for the last week and a half, the patient has been complaining of shortness of breath and uncomfortable feeling in the chest. The uncomfortable feeling is described as heaviness in the chest. And this one and on for at least a day or so. He shortness of breath has become more progressive over the last week and a half, he was seen in the [place] [facility] and he was sent to the emergency room for further evaluation. Upon presentation to the ER, patient was noted to be short of breath, chest x-ray showed evidence of pulmonary edema with bilateral pleural effusions, seen by cardiology while in the ER, his EKG was suggestive of inferi or posterior wall NH, and patient was placed on Lasix drip, heparin, admitted to the intensive care unit, and I was asked to see him on consultation. Patient diuresed about 1 L of fluid overnight, however his chest x-ray continues to show bilateral pleural effusions, and I went ahead today and performed a right sided thoracentesis, I was able to drain about 900 mL of fluid from the right pleural space. The amount of the fluid on the left side was felt to be minimal, hence no need to perform thoracentesis on the left side at this point. In the meantime the patient was placed back on heparin, placed back on his cardiac meds, remains on diuretics, and may give a require cardiac catheterization. However his renal functioning has been noted to be compromise, and needs to be monitored. His CBC on admission showed WBC count of 11.8 hemoglobin of 13.8, his BUN was 31, and creatinine of 1.56. Blood sugar was noted to be 440, hence the patient was started on insulin drip upon arrival to the ICU last night. Troponin was significantly elevated at 26.4 and his BNP level was 23,300. Influenza screen was negative. Patient was reevaluated today on 12/02/2018, patient is feeling better, breathing a lot easier, his chest x-ray showed improvement, hardly any fluid in both lungs except for a small tiny right-sided pleural effusion/residual from his last thoracentesis. Patient is being considered for possible cardiac catheterization today. However his renal functioning is a bit worse today compared to yesterday.BUN is 59 and creatinine is 2.01. Patient is off Lasix drip, however he is on Lasix IV push. His urine output is excellent. Patient has no cough no wheezing no shortness of breath no chest pain. All labs were reviewed today, he has a bit of leukocytosis with WBC count of 19.5, otherwise CBC is normal, and renal profile as noted above. Chest x-ray as noted earlier. Reevaluated today on 12/03/2018, patient continues to do well, his cardiac catheterization was postponed until Wednesday mostly because of his worsening renal functioning. Pulmonary-gaspar the patient is doing better, breathing a lot easier, denies any cough no wheezing no shortness of breath. And his chest x- ray continues to show complete resolution of his bilateral pleural effusions and pulmonary edema. WBC count is a bit elevated at 17.7, PTT is therapeutic, electrolytes are normal renal profile is improving BUN is down to 69 creatinine is down to 1.74. The patient is seen today 12/04/2018 in follow-up on the selective care unit. He is currently awake and alert in no acute distress. Up ambulating in his room. He denies any worsening shortness of breath, cough or congestion. He is maintaining good O2 saturations in the 90s on room air. He has been afebrile. Hemodynamically stable. Pleural fluid culture reveals no growth. Blood culture reveals no growth. White count 15.7. Hemoglobin 15.3. Creatinine 1.50. On 12/05/2018 patient seen in follow-up on selective care unit, patient had just returned from heart catheterization and he was found to have 60-70% lesion of the proximal LAD, first diagonal branch was 70-80% stenosis, and 99% stenosis of the ostium of the circumflex and RCA lesion of 95%. He is resting comfortably in bed currently, he is eating lunch, no complaints of chest pain or shortness of breath, referral was put in for cardiothoracic surgery for possibility of bypass grafting. On 12/06/2018 patient seen in follow-up on selective care unit, patient surgery is scheduled for , he sitting up in a recliner, in no acute distress, no shortness of breath or chest pain, lung sounds are positive for bibasilar rales, no significant rhonchi or wheezing. 0.9 normal saline at a rate of 50 ML per hour, heparin drip at 800 units per hour. One blood cell count is 23.4, hemoglobin is 15.2, sodium is 140, potassium is 4.9, chloride is 105, CO2 33, BUN is 53, creatinine is 1.34. Bedside PFT showed FEV1 of 47% of predicted, moderately severe obstructive pulmonary defect On 12/15/2018 patient seen in follow-up in intensive care unit, he is awake and alert, in no acute distress, sitting up in the recliner, he is on room air, his pulse ox is 96%, dynamically stable, afebrile. IS effort remains poor, patient is barely 0.500 mL on incentive spirometer, today's chest x-ray has been reviewed with Dr. Jacob, and shows bilateral consolidation and small pleural effusions, mild central venous congestion. Left pleural chest tubes are draining serous drainage, there has been 400 mL out of the right chest tube, and 250 mL out of the left chest tube, Torres catheter is in place, patient is nonoliguric, patient has been up ambulating, tolerates activity fairly well, today's labs have been reviewed, white blood cell count is 14.0, hemoglobin 7.8. Lung sounds are clear, diminished at the bases. Heart rate is controlled, patient is having some episodes of atrial flutter alternating with sinus rhythm. Torres catheter has been discontinued, but patient is having some incontinencre and urinary retention, and the Torres had to be replaced, urine culture has been sent. On 12/16/2018 I'm seeing this patient for a follow-up. The patient is using incentive spirometer. The patient was ambulating in the hallway. No new complaints. Right pleural chest tube is in place. Left pleural chest tube has been removed. The renal function continues to slowly improve. Hyperkalemia recovered. No cardiac arrhythmias. No nausea. No vomiting. No abdominal pain. No chest pain. Sternum stable clean and intact. The patient continues to have episodes of flutter rhythm with low rate. No other significant events overnight otherwise. Objective - Vital Signs Vital signs: Vital Signs Temp 96.6 F L 12/16/18 07:00 Pulse 82 12/16/18 12:01 Resp 18 12/16/18 07:00 BP 107/62 12/16/18 04:00 Pulse Ox 98 12/16/18 08:12 Intake & Output 12/15/18 12/16/18 12/16/18 18:59 06:59 18:59 Intake Total 480 580 390 Output Total 1015 1320 525 Balance -535 -740 -135 Weight 92.8 kg Intake: Intake, IV Titration 150 Amount Albumin Human 25% 50 ml 50 In Empty Bag 1 bag @ 50 mls/hr IVPB ONCE ONE Rx#: [id number] Calcium Gluconate 1 gm In 100 Sodium Chloride 0.9% 100 ml @ 100 mls/hr IVPB ONCE ONE Rx#:[id number] Oral 480 580 240 Output: Chest Tube Drainage 70 180 170 Left pleural 10 Right Pleural 60 180 170 Drainage 45 190 85 Left Calf 45 190 85 Urine 900 950 270 Other: Voiding Method Indwelling Catheter Indwelling Catheter # Voids 1 ABP, PAP, CO, CI - Last Documented Arterial Blood Pressure 140/54 Pulmonary Artery Pressure 49/20 Cardiac Output 4.2 Cardiac Index 2.3 - Exam - Constitutional General appearance: Present: cooperative, no acute distress, obese - Respiratory Details: Lungs sounds are essentially clear to his bilateral upper lobes, diminished to his bilateral bases. Respirations are symmetrical and nonlabored. Oxygen saturation are 99% on room air. He is achieving 500 mL on his incentive spirometry with encouragement. Right pleural chest tube remains in place to low continuous wall suction at -20 cm H2O. Draining thin serosanguineous drainage. No air leak is present. 240 mL output in the last 24 hours, 140 mL output in the last 8 hours. - Cardiovascular Details: Regular rhythm and rate. S1 and S2 present, negative for S3, gallop or murmur. Sternum is stable. Bedside telemetry showing normal sinus rhythm heart rate 82. Atrial and ventricular epicardial pacemaker wires intact and grounded. Generalized +1 edema to his bilateral upper and lower extremities. Right brachial PICC line present and functioning. Heart hugger is in place and he is demonstrating appropriate use. Knee-high DAV hose and sequential compression devices in place to his bilateral lower extremities. - Gastrointestinal Gastrointestinal Comment(s): Abdomen is soft, nontender and nondistended. Hypoactive bowel sounds present in all 4 abdominal quadrants. Tolerating oral intake. No guarding or rigidity. - Genitourinary Genitourinary Comment(s): Torres catheter for accurate I&O and urine retention. Draining clear tom urine. 450 mL output in the last 8 hours. - Integumentary Integumentary Comment(s): Skin is warm and dry. No clubbing or cyanosis is present. Midline sternal incision is clean, dry and approximated. No drainage or redness is present. Gauze dressing is clean, dry and intact. Bilateral lower extremity EVH sites are clean, dry and approximated. No drainage or redness is present. Left leg FREDIS drain remains in place draining thin serosanguineous drainage. 235 mL output in the last 8 hours, 80 mL output in the last 8 hours. - Neurologic Neurologic: Present: CNII-XII intact - Musculoskeletal Musculoskeletal: Present: generalized weakness, right sided weakness - Psychiatric Psychiatric: Present: A&O x's 3, appropriate affect, intact judgment & insight - Labs CBC & Chem 7: 12/16/18 05:28 12/16/18 05:28 Labs: Abnormal Lab Results - Last 24 Hours (Table) 12/15/18 12/15/18 12/16/18 Range/Units 16:54 20:22 05:28 WBC 12.1 H (3.8-10.6) k/uL RBC 2.69 L (4.30-5.90) m/uL Hgb 7.5 L (13.0-17.5) gm/dL Hct 22.4 L (39.0-53.0) % RDW 17.1 H (11.5-15.5) % Sodium (137-145) mmol/L BUN (9-20) mg/dL Creatinine (0.66-1.25) mg/dL Glucose (74-99) mg/dL POC Glucose (mg/dL) 220 H 244 H (75-99) mg/dL Calcium (8.4-10.2) mg/dL 12/16/18 12/16/18 12/16/18 Range/Units 05:28 07:14 11:43 WBC (3.8-10.6) k/uL RBC (4.30-5.90) m/uL Hgb (13.0-17.5) gm/dL Hct (39.0-53.0) % RDW (11.5-15.5) % Sodium 131 L (137-145) mmol/L BUN 51 H (9-20) mg/dL Creatinine 1.49 H (0.66-1.25) mg/dL Glucose 163 H (74-99) mg/dL POC Glucose (mg/dL) 185 H 212 H (75-99) mg/dL Calcium 7.7 L (8.4-10.2) mg/dL Microbiology - Last 24 Hours (Table) 12/14/18 11:14 Urine Culture - Final Urine,Catheterized Assessment and Plan Plan: 1 severe triple-vessel disease and the patient undergone four-vessel bypass surgery. The patient is post subacute inferoposterior myocardial infarction 2 acute congestive heart failure secondary to subacute myocardial infarction, suspect ischemic cardiomyopathy and impaired LV function with ejection fraction 40-45%, currently well compensated. 3 multivessel coronary artery disease, post coronary artery bypass surgery 4 type 2 diabetes, on insulin patient is normally on glipizide insulin and metformin. 5 hypertension, patient is normally on Lopressor 6 hyperlipidemia 7 history of atrial flutter requiring cardioversion in August of 2018. 8 history of underlying coronary artery disease, and previous PCI. 9 status post right sided thoracentesis, fluid was reviewed today, and it is transudative in nature, this is cardiac in nature and not related to infection. 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 Continue cardiac medications. The patient is currently off amiodarone due to bradycardia. Keep the chest tube in place and output has been around 140 mL over the past 8 hours. We'll monitor the overall pulmonary status. Continue using the incentive spirometer. Lasix was given 40 mg IV push. The patient was placed on Flomax and urology will be seeing the patient for urinary retention. Replace calcium. PTOT evaluation. Pain control. We'll continue to follow.
--- NOTE | 2018-12-16 15:52 | PN ---
PROGRESS NOTE DATE OF SERVICE: 12/16/2018 This 78-year-old gentleman who was admitted with CAD, CABG also had uncontrolled blood sugars. Patient improving significantly. The p.o. intake appears to be stabilizing at this time. Patient being closely monitored. PAST MEDICAL HISTORY: Reviewed. REVIEW OF SYSTEMS: CARDIOVASCULAR: No angina or palpitations. RESPIRATION: As mentioned earlier. GI: No nausea or vomiting. : No dysuria. CENTRAL NERVOUS SYSTEM: No focal deficits. CURRENT MEDICATIONS ARE: 1. Tylenol p.r.n. 2. DuoNeb q.i.d. and p.r.n. 3. Vitamin C. 4. Lipitor. 5. Cepacol. 6. Plavix. 7. Iron sulfate. 8. NovoLog. 9. Lopressor. 10.Zofran. 11.Flomax. 12.Kenalog. PHYSICAL EXAM: Patient is alert, oriented x3. The pulse is 89. Blood pressure 107/60, respiration 18. Temperature 96.6, pulse ox 98% on room air. HEENT: Conjunctivae normal. Neck no JVD. Cardiovascular: S1, S2 muffled. RESPIRATORY: Breath sounds diminished in the bases. Scattered rhonchi and crackles. ABDOMEN: Soft, nontender. Legs are no edema. No swelling. CENTRAL NERVOUS SYSTEM: No focal deficits. LABS: At this time shows WBC 12.1, hemoglobin 7.5, Accu-Cheks 222, 44, 185 and 212. ASSESSMENT: 1. Status post coronary artery disease, coronary artery bypass grafting. 2. History of recent acute non ST elevation infarction, present on admission. 3. Hyperkalemia. 4. Diabetes mellitus type 2 on insulin. 5. Congestive heart failure acute exacerbation acute on chronic systolic dysfunction. 6. History of coronary artery disease. 7. History of congestive heart failure. 8. History of atrial fibrillation paroxysmal. 9. History of diabetes type 2. 10.Hyperlipidemia. 11.History of anemia. 12.Increased WBC. 13.Increased creatinine with possible chronic kidney stage 3. RECOMMENDATIONS AND DISCUSSION: Recommend to continue current medications, continuing with monitoring, symptomatic treatment. Otherwise, I would also recommend initiation of the small dose of long- acting insulin and continue to monitor. Further recommendations recommendations to follow. MMODL / IJN: [id number] /
[2018-12-16 17:05] LABS: Glucose,Whole Blood 158 mg/dL (75-99)
--- NOTE | 2018-12-16 19:20 | PN ---
PROGRESS NOTE Patient is seen for followup for acute kidney injury. The patient is sitting up in a bedside chair. He states overall he is feeling better. He denies any significant complaints. PHYSICAL EXAMINATION: This morning blood pressure was 100/60. Patient is afebrile. Heart rate about 90 per minute. HEENT atraumatic. Examination of the heart S1, S2. Examination of the lungs, decreased breath sounds at the bases. ABDOMEN: Soft, obese. Examination of lower extremities shows edema bilaterally. 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 LABS: Show sodium 131, potassium 4.9, chloride 100, BUN 51, serum creatinine 1.49, hemoglobin 7.5 g/dL. ASSESSMENT: 1. Acute kidney injury, acute tubular necrosis, currently nonoliguric and improved. 2. Hypervolemic, hyponatremia. Expect improvement with diuresis. 3. Hyperkalemia. Patient is receiving Lasix today. 4. Anemia. No active bleeding noted. Hemoglobin is fairly stable. 5. Status post coronary artery bypass surgery. 6. Hyperkalemia associated with acute kidney injury, currently improved. PLAN: Recommend small dose of loop diuretics at least once a day. MMODL / IJN: [id number] /
[2018-12-16] MEDS: SENNOSIDES-DOCUSATE SODIUM 1 EACH TAB PO SCH (20:39)
[2018-12-16 20:48] LABS: Glucose,Whole Blood 257 mg/dL (75-99)
[2018-12-16] MEDS ORDERED: FUROSEMIDE 10 MG/ML 4 ML VIAL IV ONE (21:00)
[2018-12-16] MEDS ORDERED: INSULIN DETEMIR (LEVEMIR) 100 UNIT/ML SYR SQ SCH (21:00)
[2018-12-17] MEDS: ACETAMINOPHEN TAB 325 MG TAB PO PRN ×3 (00:20→22:13)
[2018-12-17 02:16] LABS: Glucose,Whole Blood 94 mg/dL (75-99)
[2018-12-17] MEDS: INSULIN ASPART (NovoLOG) 100 UNIT/ML VIAL SQ SCH ×6 (06:36→21:47)
[2018-12-17] MEDS: ASCORBIC ACID 500 MG TAB PO SCH ×2 (06:38→17:16)
[2018-12-17] MEDS: PANTOPRAZOLE 40 MG TABLET PO SCH ×2 (06:38→18:41)
[2018-12-17] MEDS: FERROUS SULFATE 325 MG TAB PO SCH ×2 (06:38→17:16)
[2018-12-17 06:40] LABS: Anisocytosis Slight; Basophils % (A) 0 %; Eosinophils # (A) 0.3 k/uL (0-0.7); Eosinophils % (A) 3 %; HCT 23.9 % (39.0-53.0); HGB 7.4 gm/dL (13.0-17.5); Hypochromasia Slight; Lymphocytes # (A) 0.5 k/uL (1.0-4.8); Lymphocytes % (A) 4 %; MCH 27.1 pg (25.0-35.0); MCHC 30.8 g/dL (31.0-37.0); Mean Platelet Volume 6.7; Monocytes # (A) 0.4 k/uL (0-1.0); Monocytes % (A) 4 %; Neutrophils % (A) 88 %; Platelet Count 304 k/uL (150-450); Poikilocytosis Slight; RBC 2.72 m/uL (4.30-5.90); RDW 16.9 % (11.5-15.5); WBC 11.4 k/uL (3.8-10.6)
[2018-12-17 06:49] LABS: Calcium 7.8 mg/dL (8.4-10.2); Magnesium 2.4 mg/dL (1.6-2.3); Potassium 4.3 mmol/L (3.5-5.1)
[2018-12-17 06:50] LABS: Glucose,Whole Blood 83 mg/dL (75-99)
[2018-12-17 07:03] LABS: Glucose,Whole Blood 48 mg/dL (75-99)
--- NOTE | 2018-12-17 07:05 | XR ---
EXAMINATION TYPE: XR chest 1V portable DATE OF EXAM: 12/17/2018 HISTORY: post op open heart. REFERENCE: Previous study dated 12/16/2018. FINDINGS: There has been a midline sternotomy. The heart is enlarged. A right pleural drain remains i n place. There is some worsening opacity at the right lung base. There is improved aeration at the le ft lung base. There are small, bilateral effusions. No sizable pneumothorax is seen. IMPRESSION: 1. CARDIOMEGALY. 2. BIBASILAR AIRSPACE DISEASE. 3. SMALL, BILATERAL EFFUSIONS.
[2018-12-17] MEDS: IPRATROPIUM-ALBUTEROL 3 ML NEB INHALATION SCH ×4 (07:21→19:37)
[2018-12-17 07:23] LABS: Glucose,Whole Blood 64 mg/dL (75-99)
[2018-12-17 07:37] LABS: Glucose,Whole Blood 88 mg/dL (75-99)
[2018-12-17] MEDS ORDERED: ALBUMIN HUMAN 25% 50 ML in EMPTY BAG 1 BAG IVPB ONE (08:33)
[2018-12-17] MEDS ORDERED: FUROSEMIDE 10 MG/ML 4 ML VIAL IV STA (08:33)
[2018-12-17] MEDS: ATORVASTATIN 40 MG TAB PO SCH (09:14)
[2018-12-17] MEDS: ASPIRIN 81 MG PO SCH ×2 (09:14→18:40)
[2018-12-17] MEDS: TAMSULOSIN 0.4 MG CAP.ER.24H PO SCH ×2 (09:14→21:47)
[2018-12-17] MEDS: CLOPIDOGREL 75 MG TAB PO SCH (09:14)
[2018-12-17] MEDS: hydrALAZINE HCL 25 MG TAB PO SCH ×2 (09:14→17:16)
[2018-12-17] MEDS: METOPROLOL TARTRATE 25 MG TAB PO SCH ×2 (09:14→21:46)
[2018-12-17] MEDS: HEPARIN SODIUM,PORCINE 5,000 UNIT/ML 1 ML VIAL SQ SCH ×2 (09:14→17:16)
[2018-12-17] MEDS: TRIAMCINOLONE ACET 0.1% OINTMENT 15 GM TUBE TOPICAL SCH ×2 (09:23→21:48)
--- NOTE | 2018-12-17 10:50 | P.GSCN ---
History of Present Illness Consult date: 12/17/18 Reason for Consult: Urinary retention History of present illness: The patient is a 78-year-old male who was originally admitted on 11/30/2018 for evaluation of shortness of breath. He has a history of atrial fibrillation and at least a portion of his breathing difficulty appeared to be from congestive heart failure. He was discovered to have an elevated troponin and further evaluation confirmed significant underlying coronary artery disease. He underwent CABG with amputation of the left atrial appendage on 12/12. He has been unable to void following his surgery despite voiding trials. I was asked to see the patient due to the urinary retention. The patient denies any previous history of urinary retention. He says he usually voids every 2-3 hours during the day and 3 or 4 times at night. He says that he was not straining to void and felt that he was voiding completely. He had been taking tamsulosin 0.4 mg twice a day prior to this admission. He denied any urinary incontinence or hematuria. Recently the patient says he's h ad no bowel movements for several days although he did have a very small bowel movement prior to my examination. Review of Systems - Constitutional Reports fatigue - Cardiovascular Reports chest pain, Reports leg edema - Gastrointestinal Reports abdominal pain (Lower abdominal discomfort), Reports constipation - Genitourinary Reports as per HPI Past Medical History Past Medical History: Atrial Flutter, Coronary Artery Disease (CAD), Heart Failure, Diabetes Mellitus, Hyperlipidemia, Hypertension, Myocardial Infarction ([place]), Osteoarthritis (OA), Prostate Disorder Additional Past Medical History / Comment(s): See Dr Epps's H&P History of Any Multi-Drug Resistant Organisms: None Reported Past Surgical History: Appendectomy, Heart Catheterization With Stent Additional Past Surgical History / Comment(s): Cataracts Past Anesthesia/Blood Transfusion Reactions: No Reported Reaction Date of Last Stent Placement:: unsure Past Psychological History: No Psychological Hx Reported Additional Psychological History / Comment(s): Single. No children. No pets. Remote tobacco use. No international travel since his experience. Worked on [employer] Smoking Status: Never smoker Past Alcohol Use History: None Reported Additional Past Alcohol Use History / Comment(s): quit drinking 1974 Past Drug Use History: None Reported - Past Family History Mother Family Medical History: Myocardial Infarction ([place]) Additional Family Medical History / Comment(s): age 64 Medications and Allergies Home Medications Medication Instructions Recorded Confirmed Type Apixaban [Eliquis] 5 mg PO BID 08/09/18 11/30/18 History Furosemide [Lasix] 40 mg PO DAILY 08/09/18 11/30/18 History Potassium Chloride [K-Tab ER] 10 meq PO BID 08/09/18 11/30/18 History Spironolactone 12.5 mg PO DAILY 08/09/18 11/30/18 History Tamsulosin [Flomax] 0.4 mg PO BID 08/09/18 11/30/18 History glipiZIDE [Glucotrol] 10 mg PO AC-BID 08/09/18 11/30/18 History metFORMIN HCL 1,000 mg PO DAILY 08/09/18 11/30/18 History Metoprolol Tartrate [Lopressor] 50 mg PO BID 08/12/18 11/30/18 History Insulin NPH Hum/Reg Insulin Hm 60 unit SQ BID 11/30/18 11/30/18 History [Novolin 70-30 Flexpen] Isosorbide Mononitrate ER [Imdur] 90 mg PO DAILY 11/30/18 11/30/18 History Rosuvastatin Calcium 40 mg PO DAILY 11/30/18 11/30/18 History amLODIPine [Norvasc] 5 mg PO BID 11/30/18 11/30/18 History Allergies Allergy/AdvReac Type Severity Reaction Status Date / Time atorvastatin [From Lipitor] Allergy Unknown Verified 11/30/18 12:24 Surgical - Exam Vital Signs Temp Pulse Resp BP Pulse Ox 98.4 F 94 25 H 143/84 92 L 11/30/18 11:29 11/30/18 11:29 11/30/18 11:29 11/30/18 11:29 11/30/18 11:29 - General well developed, well nourished, moderate pain, obese - Neck no masses, no lymphadectomy - Respiratory normal respiratory effort - Abdomen Abdomen: soft, tender (Suprapubic area), no organomegaly, no masses Hernia: none - Genitourinary other (There is mild penile and scrotal edema. Both testicles are descended. A Torres catheter is in place and is draining clear urine.) - Rectum Rectum: other (Anal sphincter tone is slightly reduced. There is evidence of a fecal impaction with stool in the anal canal measuring at least 4 cm in diameter. Because of this the prostate is not well palpable.) Results - Labs 12/17/18 06:27 12/17/18 06:27 Abnormal Lab Results - Last 24 Hours (Table) 12/16/18 12/16/18 12/16/18 Range/Units 11:43 17:03 20:46 WBC (3.8-10.6) k/uL RBC (4.30-5.90) m/uL Hgb (13.0-17.5) gm/dL Hct (39.0-53.0) % MCHC (31.0-37.0) g/dL RDW (11.5-15.5) % Neutrophils # (1.3-7.7) k/uL Lymphocytes # (1.0-4.8) k/uL Sodium (137-145) mmol/L BUN (9-20) mg/dL Creatinine (0.66-1.25) mg/dL Glucose (74-99) mg/dL POC Glucose (mg/dL) 212 H 158 H 257 H (75-99) mg/dL Calcium (8.4-10.2) mg/dL Magnesium (1.6-2.3) mg/dL 12/17/18 12/17/18 12/17/18 Range/Units 06:27 06:27 07:01 WBC 11.4 H (3.8-10.6) k/uL RBC 2.72 L (4.30-5.90) m/uL Hgb 7.4 L (13.0-17.5) gm/dL Hct 23.9 L (39.0-53.0) % MCHC 30.8 L (31.0-37.0) g/dL RDW 16.9 H (11.5-15.5) % Neutrophils # 10.0 H (1.3-7.7) k/uL Lymphocytes # 0.5 L (1.0-4.8) k/uL Sodium 131 L (137-145) mmol/L BUN 48 H (9-20) mg/dL Creatinine 1.46 H (0.66-1.25) mg/dL Glucose 38 L* (74-99) mg/dL POC Glucose (mg/dL) 48 L (75-99) mg/dL Calcium 7.8 L (8.4-10.2) mg/dL Magnesium 2.4 H (1.6-2.3) mg/dL 12/17/18 Range/Units 07:21 WBC (3.8-10.6) k/uL RBC (4.30-5.90) m/uL Hgb (13.0-17.5) gm/dL Hct (39.0-53.0) % MCHC (31.0-37.0) g/dL RDW (11.5-15.5) % Neutrophils # (1.3-7.7) k/uL Lymphocytes # (1.0-4.8) k/uL Sodium (137-145) mmol/L BUN (9-20) mg/dL Creatinine (0.66-1.25) mg/dL Glucose (74-99) mg/dL POC Glucose (mg/dL) 64 L (75-99) mg/dL Calcium (8.4-10.2) mg/dL Magnesium (1.6-2.3) mg/dL Diabetes panel 12/17/18 Range/Units 06:27 Sodium 131 L (137-145) mmol/L Potassium 4.3 (3.5-5.1) mmol/L Chloride 101 (98-107) mmol/L Carbon Dioxide 23 (22-30) mmol/L BUN 48 H (9-20) mg/dL Creatinine 1.46 H (0.66-1.25) mg/dL Glucose 38 L* (74-99) mg/dL Calcium 7.8 L (8.4-10.2) mg/dL Calcium panel 12/17/18 Range/Units 06:27 Calcium 7.8 L (8.4-10.2) mg/dL Pituitary panel 12/17/18 Range/Units 06:27 Sodium 131 L (137-145) mmol/L Potassium 4.3 (3.5-5.1) mmol/L Chloride 101 (98-107) mmol/L Carbon Dioxide 23 (22-30) mmol/L BUN 48 H (9-20) mg/dL Creatinine 1.46 H (0.66-1.25) mg/dL Glucose 38 L* (74-99) mg/dL Calcium 7.8 L (8.4-10.2) mg/dL Adrenal panel 12/17/18 Range/Units 06:27 Sodium 131 L (137-145) mmol/L Potassium 4.3 (3.5-5.1) mmol/L Chloride 101 (98-107) mmol/L Carbon Dioxide 23 (22-30) mmol/L BUN 48 H (9-20) mg/dL Creatinine 1.46 H (0.66-1.25) mg/dL Glucose 38 L* (74-99) mg/dL Calcium 7.8 L (8.4-10.2) mg/dL Assessment and Plan Assessment: The cause of the patient's urinary retention is probably related to several factors. He had been taking tamsulosin 0.4 mg twice a day prior to admission and so I presume he did have some difficulty in voiding in the past. He should be continued on the tamsulosin. The patient appears to have a fecal impaction which by itself could result in the urinary retention and lower abdominal discomfort. He may need digital disimpaction and enemas to relieve this. The patient is debilitated in general and due to his overall weakness this could also make it more difficult for the patient to void. Once the patient's fecal impaction has been treated the patient could have another voiding trial. Ideally this will be done prior to being transferred to a rehab facility. If he remains unable to void at that time and I would suggest waiting at least 1-2 weeks prior to another voiding trial.
[2018-12-17 11:39] LABS: Glucose,Whole Blood 180 mg/dL (75-99)
--- NOTE | 2018-12-17 11:51 | P.PN ---
Subjective Mr. Carrasco is seen sitting up resting comfortably in the chair in no acute distress. Overall he complains of feeling generalized weakness and fatigue. He denies any symptoms of shortness of breath, chest discomfort, dizziness or palpitations. chest x-ray obtained this morning reveals bibasilar airspace disease and small bilateral pleural effusions. The patient is seen and examined laying flat in bed. Blood pressure 120/59 heart rate 62 afebrile maintaining oxygen saturation. laboratory data reviewed, WBC 11.4, hemoglobin 7.4, platelets 304, sodium 131, potassium 4.3, creatinine 1.46. He had an episode of hypoglycemia this morning and 38 has improved to 180. Continues to maintain negative fluid balance. GENERAL: Well-appearing, well-nourished and in no acute distress. NECK: Supple without JVD or thyromegaly. LUNGS: Breath sounds clear to auscultation bilaterally. Respiration equal and unlabored. No wheezes, rales or rhonchi. Diminished bilaterally. Chest tubes in place. HEART: Regular rate and rhythm without murmurs, rubs or gallops. S1 and S2 heard. EXTREMITIES: Normal range of motion, no edema. No clubbing or cyanosis. Peripheral pulses intact. ASSESSMENT Coronary artery disease status post bypass grafting following an acute myocardial infarction Intraoperative bleeding with chest tube in place Intermittent postoperative atrial flutter, currently maintaining sinus mechanism. Intolerant to amiodarone Acute on chronic systolic and diastolic heart failure ejection fraction 40-45% PLAN Continue current medical regimen. Ongoing medical management. Incentive spirometer use encouraged. We will continue to follow and make recommendations accordingly. Nurse Practitioner note has been reviewed, I agree with a documented findings and plan of care. Patient was seen and examined. Objective - Vital Signs Vital signs: Vital Signs Temp 97 F L 12/17/18 09:00 Pulse 62 12/17/18 09:00 Resp 18 12/17/18 09:00 BP 120/59 12/17/18 09:00 Pulse Ox 95 12/17/18 09:00 Intake & Output 12/16/18 12/17/18 12/17/18 18:59 06:59 18:59 Intake Total 390 60 360 Output Total 1285 870 80 Balance -895 -810 280 Weight 88.2 kg Intake: Intake, IV Titration 150 Amount Albumin Human 25% 50 ml 50 In Empty Bag 1 bag @ 50 mls/hr IVPB ONCE ONE Rx#: [id number] Calcium Gluconate 1 gm In 100 Sodium Chloride 0.9% 100 ml @ 100 mls/hr IVPB ONCE ONE Rx#:[id number] Oral 240 60 360 Output: Chest Tube Drainage 190 10 Right Pleural 190 10 Drainage 125 130 80 Left Calf 125 70 80 Right Chest 60 Urine 970 730 Other: Voiding Method Indwelling Catheter Indwelling Catheter Indwelling Catheter # Voids 1 ABP, PAP, CO, CI - Last Documented Arterial Blood Pressure 140/54 Pulmonary Artery Pressure 49/20 Cardiac Output 4.2 Cardiac Index 2.3 - Labs CBC & Chem 7: 12/17/18 06:27 12/17/18 06:27 Labs: Abnormal Lab Results - Last 24 Hours (Table) 12/16/18 12/16/18 12/16/18 Range/Units 11:43 17:03 20:46 WBC (3.8-10.6) k/uL RBC (4.30-5.90) m/uL Hgb (13.0-17.5) gm/dL Hct (39.0-53.0) % MCHC (31.0-37.0) g/dL RDW (11.5-15.5) % Neutrophils # (1.3-7.7) k/uL Lymphocytes # (1.0-4.8) k/uL Sodium (137-145) mmol/L BUN (9-20) mg/dL Creatinine (0.66-1.25) mg/dL Glucose (74-99) mg/dL POC Glucose (mg/dL) 212 H 158 H 257 H (75-99) mg/dL Calcium (8.4-10.2) mg/dL Magnesium (1.6-2.3) mg/dL 12/17/18 12/17/18 12/17/18 Range/Units 06:27 06:27 07:01 WBC 11.4 H (3.8-10.6) k/uL RBC 2.72 L (4.30-5.90) m/uL Hgb 7.4 L (13.0-17.5) gm/dL Hct 23.9 L (39.0-53.0) % MCHC 30.8 L (31.0-37.0) g/dL RDW 16.9 H (11.5-15.5) % Neutrophils # 10.0 H (1.3-7.7) k/uL Lymphocytes # 0.5 L (1.0-4.8) k/uL Sodium 131 L (137-145) mmol/L BUN 48 H (9-20) mg/dL Creatinine 1.46 H (0.66-1.25) mg/dL Glucose 38 L* (74-99) mg/dL POC Glucose (mg/dL) 48 L (75-99) mg/dL Calcium 7.8 L (8.4-10.2) mg/dL Magnesium 2.4 H (1.6-2.3) mg/dL 12/17/18 12/17/18 Range/Units 07:21 11:37 WBC (3.8-10.6) k/uL RBC (4.30-5.90) m/uL Hgb (13.0-17.5) gm/dL Hct (39.0-53.0) % MCHC (31.0-37.0) g/dL RDW (11.5-15.5) % Neutrophils # (1.3-7.7) k/uL Lymphocytes # (1.0-4.8) k/uL Sodium (137-145) mmol/L BUN (9-20) mg/dL Creatinine (0.66-1.25) mg/dL Glucose (74-99) mg/dL POC Glucose (mg/dL) 64 L 180 H (75-99) mg/dL Calcium (8.4-10.2) mg/dL Magnesium (1.6-2.3) mg/dL
[2018-12-17] MEDS: BISACODYL 10 MG SUPP RECTAL PRN (12:11)
--- NOTE | 2018-12-17 14:12 | P.PN ---
Subjective Progress Note Date: 12/17/18 Principal diagnosis: Subacute myocardial infarction with systolic congestive heart failure This is a 78-year-old white male with history of paroxysmal atrial flutter status post transesophageal echo and cardioversion in August of 2018. Patient has been following up at [facility] for his cardiac issues. Although his previous cardioversion was done by few months back. Patient is also known to have history of type 2 diabetes, hypertension, and for the last week and a half, the patient has been complaining of shortness of breath and uncomfortable feeling in the chest. The uncomfortable feeling is described as heaviness in the chest. And this one and on for at least a day or so. He shortness of breath has become more progressive over the last week and a half, he was seen in the [facility] and he was sent to the emergency room for further evaluation. Upon presentation to the ER, patient was noted to be short of breath, chest x-ray showed evidence of pulmonary edema with bilateral pleural effusions, seen by cardiology while in the ER, his EKG was suggestive of inferior posterior wall AK, and patient was placed on Lasix drip, heparin, admitted to the intensive care unit, and I was asked to see him on consultation. Patient diuresed about 1 L of fluid overnight, however his chest x-ray continues to show bilateral pleural effusions, and I went ahead today and performed a right sided thoracentesis, I was able to drain about 900 mL of fluid from the right pleural space. The amount of the fluid on the left side was felt to be minimal, hence no need to perform thoracentesis on the left side at this point. In the meantime the patient was placed back on heparin, placed back on his cardiac meds, remains on diuretics, and may give a require cardiac catheterization. However his renal functioning has been noted to be compromise, and needs to be monitored. His CBC on admission showed WBC count of 11.8 hemoglobin of 13.8, his BUN was 31, and creatinine of 1.56. Blood sugar was noted to be 440, hence the patient was started on insulin drip upon arrival to the ICU last night. Troponin was significantly elevated at 26.4 and his BNP level was 23,300. Influenza screen was negative. Patient was reevaluated today on 12/02/2018, patient is feeling better, breathing a lot easier, his chest x-ray showed improvement, hardly any fluid in both lungs except for a small tiny right-sided pleural effusion/residual from his last thoracentesis. Patient is being considered for possible cardiac catheterization today. However his renal functioning is a bit worse today compared to yesterday.BUN is 59 and creatinine is 2.01. Patient is off Lasix drip, however he is on Lasix IV push. His urine output is excellent. Patient has no cough no wheezing no shortness of breath no chest pain. All labs were reviewed today, he has a bit of leukocytosis with WBC count of 19.5, otherwise CBC is normal, and renal profile as noted above. Chest x-ray as noted earlier. Reevaluated today on 12/03/2018, patient continues to do well, his cardiac catheterization was postponed until Wednesday mostly because of his worsening renal functioning. Pulmonary-gaspar the patient is doing better, breathing a lot easier, denies any cough no wheezing no shortness of breath. And his chest x- ray continues to show complete resolution of his bilateral pleural effusions and pulmonary edema. WBC count is a bit elevated at 17.7, PTT is therapeutic, electrolytes are normal renal profile is improving BUN is down to 69 creatinine is down to 1.74. The patient is seen today 12/04/2018 in follow-up on the selective care unit. He is currently awake and alert in no acute distress. Up ambulating in his room. He denies any worsening shortness of breath, cough or congestion. He is maintaining good O2 saturations in the 90s on room air. He has been afebrile. Hemodynamically stable. Pleural fluid culture reveals no growth. Blood culture reveals no growth. White count 15.7. Hemoglobin 15.3. Creatinine 1.50. On 12/05/2018 patient seen in follow-up on selective care unit, patient had just returned from heart catheterization and he was found to have 60-70% lesion of the proximal LAD, first diagonal branch was 70-80% stenosis, and 99% stenosis of the ostium of the circumflex and RCA lesion of 95%. He is resting comfortably in bed currently, he is eating lunch, no complaints of chest pain or shortness of breath, referral was put in for cardiothoracic surgery for possibility of bypass grafting. On 12/06/2018 patient seen in follow-up on selective care unit, patient surgery is scheduled for , he sitting up in a recliner, in no acute distress, no shortness of breath or chest pain, lung sounds are positive for bibasilar rales, no significant rhonchi or wheezing. 0.9 normal saline at a rate of 50 ML per hour, heparin drip at 800 units per hour. One blood cell count is 23.4, hemoglobin is 15.2, sodium is 140, potassium is 4.9, chloride is 105, CO2 33, BUN is 53, creatinine is 1.34. Bedside PFT showed FEV1 of 47% of predicted, moderately severe obstructive pulmonary defect On 12/15/2018 patient seen in follow-up in intensive care unit, he is awake and alert, in no acute distress, sitting up in the recliner, he is on room air, his pulse ox is 96%, dynamically stable, afebrile. IS effort remains poor, patient is barely 0.500 mL on incentive spirometer, today's chest x-ray has been reviewed with Dr. Jacob, and shows bilateral consolidation and small pleural effusions, mild central venous congestion. Left pleural chest tubes are draining serous drainage, there has been 400 mL out of the right chest tube, and 250 mL out of the left chest tube, Torres catheter is in place, patient is nonoliguric, patient has been up ambulating, tolerates activity fairly well, today's labs have been reviewed, white blood cell count is 14.0, hemoglobin 7.8. Lung sounds are clear, diminished at the bases. Heart rate is controlled, patient is having some episodes of atrial flutter alternating with sinus rhythm. Torres catheter has been discontinued, but patient is having some incontinencre and urinary retention, and the Torres had to be replaced, urine culture has been sent. On 12/16/2018 I'm seeing this patient for a follow-up. The patient is using incentive spirometer. The patient was ambulating in the hallway. No new complaints. Right pleural chest tube is in place. Left pleural chest tube has been removed. The renal function continues to slowly improve. Hyperkalemia recovered. No cardiac arrhythmias. No nausea. No vomiting. No abdominal pain. No chest pain. Sternum stable clean and intact. The patient continues to have episodes of flutter rhythm with low rate. No other significant events overnight otherwise. Patient seen today 12/17/2018 in follow-up on the selective care unit. He is awake and alert in no acute distress. He has been slow to progress however. He needs increased encouragement using incentive spirometer and cough and deep breathing exercises. He's been up ambulating in the hallway with assistance. He currently denies any worsening shortness of breath, cough or congestion. He is maintaining good O2 saturations up to 100% on room air. He's been afebrile. Hemodynamically stable. His pain is well controlled. Blood, sputum and urine cultures reveal no growth. Chest x-ray reveals cardiomegaly, bibasilar airspace disease, small bilateral effusions. Objective - Vital Signs Vital signs: Vital Signs Temp 96 F L 12/17/18 11:30 Pulse 85 12/17/18 11:30 Resp 18 12/17/18 11:30 BP 127/62 12/17/18 11:30 Pulse Ox 100 12/17/18 11:30 Intake & Output 12/16/18 12/17/18 12/17/18 18:59 06:59 18:59 Intake Total 390 60 360 Output Total 1285 870 80 Balance -895 -810 280 Weight 88.2 kg Intake: Intake, IV Titration 150 Amount Albumin Human 25% 50 ml 50 In Empty Bag 1 bag @ 50 mls/hr IVPB ONCE ONE Rx#: [id number] Calcium Gluconate 1 gm In 100 Sodium Chloride 0.9% 100 ml @ 100 mls/hr IVPB ONCE ONE Rx#:[id number] Oral 240 60 360 Output: Chest Tube Drainage 190 10 Right Pleural 190 10 Drainage 125 130 80 Left Calf 125 70 80 Right Chest 60 Urine 970 730 Other: Voiding Method Indwelling Catheter Indwelling Catheter Indwelling Catheter # Voids 1 # Bowel Movements 1 ABP, PAP, CO, CI - Last Documented Arterial Blood Pressure 140/54 Pulmonary Artery Pressure 49/20 Cardiac Output 4.2 Cardiac Index 2.3 - Exam GENERAL EXAM: Alert, active, comfortable in no apparent distress. On room air. HEAD: Normocephalic. EYES: Normal reaction of pupils, equal size. NOSE: Clear with pink turbinates. THROAT: No erythema or exudates. NECK: No masses, no JVD. CHEST: No chest wall deformity. Heart hugger in place. LUNGS: Equal air entry with faint crackles in the posterior bases. CVS: S1 and S2 normal with no audible murmur, regular rhythm. ABDOMEN: No hepatosplenomegaly, normal bowel sounds, no guarding or rigidity. SPINE: No scoliosis or deformity SKIN: No rashes CENTRAL NERVOUS SYSTEM: No focal deficits, tone is normal in all 4 extremities. EXTREMITIES: There is no peripheral edema. No clubbing, no cyanosis. Peripheral pulses are intact. - Labs CBC & Chem 7: 12/17/18 06:27 12/17/18 06:27 Labs: Abnormal Lab Results - Last 24 Hours (Table) 12/16/18 12/16/18 12/17/18 Range/Units 17:03 20:46 06:27 WBC 11.4 H (3.8-10.6) k/uL RBC 2.72 L (4.30-5.90) m/uL Hgb 7.4 L (13.0-17.5) gm/dL Hct 23.9 L (39.0-53.0) % MCHC 30.8 L (31.0-37.0) g/dL RDW 16.9 H (11.5-15.5) % Neutrophils # 10.0 H (1.3-7.7) k/uL Lymphocytes # 0.5 L (1.0-4.8) k/uL Sodium (137-145) mmol/L BUN (9-20) mg/dL Creatinine (0.66-1.25) mg/dL Glucose (74-99) mg/dL POC Glucose (mg/dL) 158 H 257 H (75-99) mg/dL Calcium (8.4-10.2) mg/dL Magnesium (1.6-2.3) mg/dL 12/17/18 12/17/18 12/17/18 Range/Units 06:27 07:01 07:21 WBC (3.8-10.6) k/uL RBC (4.30-5.90) m/uL Hgb (13.0-17.5) gm/dL Hct (39.0-53.0) % MCHC (31.0-37.0) g/dL RDW (11.5-15.5) % Neutrophils # (1.3-7.7) k/uL Lymphocytes # (1.0-4.8) k/uL Sodium 131 L (137-145) mmol/L BUN 48 H (9-20) mg/dL Creatinine 1.46 H (0.66-1.25) mg/dL Glucose 38 L* (74-99) mg/dL POC Glucose (mg/dL) 48 L 64 L (75-99) mg/dL Calcium 7.8 L (8.4-10.2) mg/dL Magnesium 2.4 H (1.6-2.3) mg/dL 12/17/18 Range/Units 11:37 WBC (3.8-10.6) k/uL RBC (4.30-5.90) m/uL Hgb (13.0-17.5) gm/dL Hct (39.0-53.0) % MCHC (31.0-37.0) g/dL RDW (11.5-15.5) % Neutrophils # (1.3-7.7) k/uL Lymphocytes # (1.0-4.8) k/uL Sodium (137-145) mmol/L BUN (9-20) mg/dL Creatinine (0.66-1.25) mg/dL Glucose (74-99) mg/dL POC Glucose (mg/dL) 180 H (75-99) mg/dL Calcium (8.4-10.2) mg/dL Magnesium (1.6-2.3) mg/dL Assessment and Plan Assessment: Impression: 1 severe triple-vessel disease and the patient undergone four-vessel bypass surgery. The patient is post subacute inferoposterior myocardial infarction 2 acute congestive heart failure secondary to subacute myocardial infarction, suspect ischemic cardiomyopathy and impaired LV function with ejection fraction 40-45%, currently well compensated. 3 multivessel coronary artery disease, post coronary artery bypass surgery 4 type 2 diabetes, on insulin patient is normally on glipizide insulin and metformin. 5 hypertension, patient is normally on Lopressor 6 hyperlipidemia 7 history of atrial flutter requiring cardioversion in August of 2018. 8 history of underlying coronary artery disease, and previous PCI. 9 status post right sided thoracentesis, fluid was reviewed today, and it is transudative in nature, this is cardiac in nature and not related to infection. 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 Jacob. He is stable from the pulmonary standpoint. Room air. Chest x-ray and labs reviewed. Continues to need increased encouragement regarding using incentive spirometer and cough and deep breathing exercises. Increase his activity as tolerated. I, the cosigning physician, performed a history & physical examination of the patient. Lungs sounds with faint crackles in the posterior bases. Maintaining good O2 saturations in the 90s on room air. I discussed the assessment and plan of care with my nurse practitioner, Page Cervantes. I attest to the above note as dictated by her.
--- NOTE | 2018-12-17 14:48 | P.PN ---
Subjective Progress Note Date: 12/17/18 Principal diagnosis: Severe triple vessel coronary artery disease with a critical lesion involving the ostium of the circumflex, proximal right coronary artery and multiple lesions to the left anterior descending coronary artery and diagonal coronary artery, non-ST elevated myocardial infarction with elevated troponins as high as 28.600 this admission, congestive heart failure, acute on chronic systolic and diastolic with an ejection fraction 40-45%, moderate left ventricular diastolic dysfunction with mild to moderate mitral valve regurgitation, history of coronary artery disease with previous stent placement to his left anterior descending coronary artery in 2004, recent diagnosis of atrial flutter status post cardioversion on chronic Eliquis for home anticoagulation, right pleural effusion status post right thoracentesis with 900 mL of yellow fluid drained this admission, obesity, venous stasis ulcers to his right lower extremity, diabetes mellitus type 2 with an admission hemoglobin A1c of 7.8%, history of hypertension, hyperlipidemia, severe COPD with a preoperative FEV1 47% of predicted value, peripheral arterial disease with lower ABIs < 0.9 and prostate disorder. POD #9 urgent quadruple coronary artery bypass grafting using the left internal mammary artery to the left anterior descending artery,a reverse greater saphenous vein graft from the aorta to the first diagonal artery,a reverse greater saphenous vein graft from the aorta to the first obtuse marginal artery, a reverse greater saphenous vein graft from the aorta to the distal posterior lateral branch of the circumflex artery which is a dominant artery, bilateral pulmonary vein isolation using the radiofrequency bipolar clamp from [employer], intraoperative exclusion of the left atrial appendage using a 40 mm AtriClip, intraoperative transesophageal echocardiogram and epi-aortic scanning, and intraoperative graft flow measurements using the [employer] system, endoscopic harvesting of bilateral saphenous veins from the groin to the knee level. Postoperative acute blood loss anemia, expected outcome of surgery given hemodilution and cardiopulmonary bypass pump. Postoperative bradycardia, an unexpected but potential outcome, likely medication induced. Postoperative atrial flutter, an expected outcome due to his preoperative atrial flutter. Acute urinary retention, an unexpected outcome. The patient is currently sitting up to the bedside chair in no acute distress. He is complaining of pain to his buttocks and to his mid lower abdomen, rating his pain 6 out of 10 on the pain scale. He denies any complaints of shortness of breath this time. He reports that he is feeling fatigued today with lack of appetite. Oxygen saturation are 97% on room air. He is achieving 500 mL on his incentive spirometry with much encouragement. He remains hemodynamically stable with no inotropic or pressor support. Dressings to his bilateral lower extremity cellulitic areas are being changed by his nurse Millie. The patient feels that he is constipated. Objective - Vital Signs Vital signs: Vital Signs Temp 96 F L 12/17/18 11:30 Pulse 85 12/17/18 11:30 Resp 18 12/17/18 11:30 BP 127/62 12/17/18 11:30 Pulse Ox 100 12/17/18 11:30 Intake & Output 12/16/18 12/17/18 12/17/18 18:59 06:59 18:59 Intake Total 390 60 478 Output Total 1285 870 80 Balance -895 -810 398 Weight 88.2 kg Intake: Intake, IV Titration 150 Amount Albumin Human 25% 50 ml 50 In Empty Bag 1 bag @ 50 mls/hr IVPB ONCE ONE Rx#: [id number] Calcium Gluconate 1 gm In 100 Sodium Chloride 0.9% 100 ml @ 100 mls/hr IVPB ONCE ONE Rx#:[id number] Oral 240 60 478 Output: Chest Tube Drainage 190 10 Right Pleural 190 10 Drainage 125 130 80 Left Calf 125 70 80 Right Chest 60 Urine 970 730 Other: Voiding Method Indwelling Catheter Indwelling Catheter Indwelling Catheter # Voids 1 # Bowel Movements 1 ABP, PAP, CO, CI - Last Documented Arterial Blood Pressure 140/54 Pulmonary Artery Pressure 49/20 Cardiac Output 4.2 Cardiac Index 2.3 - Constitutional General appearance: Present: cooperative, no acute distress, obese - Respiratory Details: Lungs sounds are essentially clear throughout, diminished to his bilateral bases. Respirations are symmetrical and nonlabored. Oxygen saturation are 97% on room air. He is achieving 500 mL on his incentive spirometry. Right pleural chest tube remains in place to low continuous wall suction -20 cm H2O. No air leak is present. Draining thin serosanguineous drainage. 200 mL output in the last 24 hours. - Cardiovascular Details: Irregular rhythm with controlled rate. S1 and S2 present, negative for S3, gallop or murmur. Remote telemetry showing atrial flutter heart rate 74. Sternum is stable. Atrial ventricular epicardial pacemaker wires are intact and grounded. Knee-high DAV hose and sequential compression devices in place to his bilateral lower extremities. Heart hugger is in place and he is demonstrating appropriate use with reminding. +1 generalized edema. - Gastrointestinal Gastrointestinal Comment(s): Abdomen is soft, nontender and nondistended. Hypoactive bowel sounds all 4 abdominal quadrants. No guarding or rigidity. No organomegaly. - Genitourinary Genitourinary Comment(s): Torres catheter for accurate I&O. Draining clear tom urine. 350 mL output in the last 8 hours. - Integumentary Integumentary Comment(s): Skin is warm and dry. No clubbing or cyanosis is present. Midline sternal incision is clean, dry and approximated. No drainage or redness is present. Gauze dressing is clean, dry and intact. Bilateral lower extremity EVH sites are clean, dry and approximated. No drainage or redness is present. Left leg FREDIS drain remains in place draining thin serosanguineous drainage. 70 mL output in the last 8 hours, 195 mL output in the last 24 hours. Right lower extremity remains with small erythematous area ulceration measuring 2.5 x 1.5 x 0.2 cm. Dressing is clean, dry and intact. - Neurologic Neurologic: Present: CNII-XII intact - Musculoskeletal Musculoskeletal: Present: generalized weakness, strength equal bilaterally - Psychiatric Psychiatric: Present: A&O x's 3, appropriate affect, intact judgment & insight - Allied health notes Allied health notes reviewed: nursing - Labs CBC & Chem 7: 12/17/18 06:27 12/17/18 06:27 Labs: Abnormal Lab Results - Last 24 Hours (Table) 12/16/18 12/16/18 12/17/18 Range/Units 17:03 20:46 06:27 WBC 11.4 H (3.8-10.6) k/uL RBC 2.72 L (4.30-5.90) m/uL Hgb 7.4 L (13.0-17.5) gm/dL Hct 23.9 L (39.0-53.0) % MCHC 30.8 L (31.0-37.0) g/dL RDW 16.9 H (11.5-15.5) % Neutrophils # 10.0 H (1.3-7.7) k/uL Lymphocytes # 0.5 L (1.0-4.8) k/uL Sodium (137-145) mmol/L BUN (9-20) mg/dL Creatinine (0.66-1.25) mg/dL Glucose (74-99) mg/dL POC Glucose (mg/dL) 158 H 257 H (75-99) mg/dL Calcium (8.4-10.2) mg/dL Magnesium (1.6-2.3) mg/dL 12/17/18 12/17/18 12/17/18 Range/Units 06:27 07:01 07:21 WBC (3.8-10.6) k/uL RBC (4.30-5.90) m/uL Hgb (13.0-17.5) gm/dL Hct (39.0-53.0) % MCHC (31.0-37.0) g/dL RDW (11.5-15.5) % Neutrophils # (1.3-7.7) k/uL Lymphocytes # (1.0-4.8) k/uL Sodium 131 L (137-145) mmol/L BUN 48 H (9-20) mg/dL Creatinine 1.46 H (0.66-1.25) mg/dL Glucose 38 L* (74-99) mg/dL POC Glucose (mg/dL) 48 L 64 L (75-99) mg/dL Calcium 7.8 L (8.4-10.2) mg/dL Magnesium 2.4 H (1.6-2.3) mg/dL 12/17/18 Range/Units 11:37 WBC (3.8-10.6) k/uL RBC (4.30-5.90) m/uL Hgb (13.0-17.5) gm/dL Hct (39.0-53.0) % MCHC (31.0-37.0) g/dL RDW (11.5-15.5) % Neutrophils # (1.3-7.7) k/uL Lymphocytes # (1.0-4.8) k/uL Sodium (137-145) mmol/L BUN (9-20) mg/dL Creatinine (0.66-1.25) mg/dL Glucose (74-99) mg/dL POC Glucose (mg/dL) 180 H (75-99) mg/dL Calcium (8.4-10.2) mg/dL Magnesium (1.6-2.3) mg/dL - Imaging and Cardiology Chest x-ray: report reviewed, image reviewed Assessment and Plan Assessment: 1. Severe triple-vessel coronary artery disease, non-STEMI, status post CABG 4 2. Acute on chronic systolic and diastolic heart failure with an ejection fract ion 40-45%, compensated 3. Moderate left ventricular dysfunction with mild to moderate mitral valve regurgitation 4. Right-sided pleural effusion status post thoracentesis with removal of 900 mL transudate of fluid 5. Leukocytosis 6. Acute on chronic renal failure 7. History of coronary artery disease with previous stents to the LAD in 2004, evidence of remote lateral wall myocardial infarction 8. Recent diagnosis of atrial flutter status post cardioversion on Eliquis for chronic for anticoagulation 9. Hypertension 10. Hyperlipidemia 11. Uncontrolled diabetes mellitus with hemoglobin A1c 7.8% 12. 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 Peripheral artery disease 14. Chronic venous stasis ulcers to his right lower extremity 15. Prostate disorder, chronic Flomax use 16. Postoperative acute blood loss anemia, status post transfusion 1 unit packed red blood cells 17. Postoperative bradycardia, possibly medication induced 18. Hyperkalemia, resolved 19. Postoperative urinary retention 20. Constipation. Plan: 1. Continue aspirin, statin, Plavix, hydralazine and beta alfred. Will increase beta alfred as tolerated. 2. Continue to hold Amiodarone secondary to bradycardic episode after initiation. No anticoagulation yet until epicardial pacemaker wires and chest tubes are pulled. 3. Bronchodilators per pulmonology management. 4. Albumin 25% IV piggyback 1 now followed by Lasix 40 mg IV 1 now. Continue Flomax. Urology has been consulted for urinary retention. 5. Encourage use of his incentive spirometry 10 times every hour while awake. 6. Increase activity as tolerated. PT/OT/cardiac rehab following. 7. Will monitor daily labs and x-rays. Electrolyte replacement per protocol. 8. Pain control with current medication regimen. No narcotics. 9. Insulin management per primary care service. 10. GI/DVT prophylaxis with Protonix and heparin, SCDs. 11. Venous stasis ulcer wound care per Dr. Eldridge. 12. Discontinue right pleural chest tube. Keep left FREDIS drain in place. 13. Patient will likely need rehab at discharge secondary to weakness, social work is following. 14. More recommendations to follow based on patient's clinical course. Time with Patient: Greater than 30
[2018-12-17 16:15] LABS: Glucose,Whole Blood 153 mg/dL (75-99)
--- NOTE | 2018-12-17 17:17 | PN ---
PROGRESS NOTE Patient is seen for followup for acute kidney injury. He is currently lying in bed. He is comfortable, not in any acute distress. Patient states he has been eating well. Serum creatinine is at 1.46 mg/dL. PHYSICAL EXAMINATION: Blood pressure is 127/62, heart rate 82 per minute. He is afebrile. Examination of the heart S1, S2. Examination lungs bilateral breath sounds are heard. Abdomen is soft, nontender, obese. Examination of lower extremities shows edema 2+ bilaterally. COPY HOLDER exam is grossly intact. LABS: Sodium 131, potassium 4.3, BUN 48, serum creatinine 1.46, hemoglobin 7.4. ASSESSMENT: 1. Acute kidney injury, acute tubular necrosis, nonoliguric, currently stable. 2. Hypervolemic, hyponatremia, currently stable. The patient has been receiving Lasix almost on a daily basis. Continue to diurese him gently. 3. Status post coronary artery bypass surgery. 4. Anemia postoperatively, currently stable. PLAN: Continue with the daily Lasix, can switch to p.o. at 40 mg daily. MMODL / IJN: [id number] /
[2018-12-17] MEDS: SODIUM CHLORIDE 0.9% 1,000 ML IV SCH ×2 (18:40→18:42)
[2018-12-17] MEDS: CARVEDILOL 3.125 MG TAB PO SCH (18:40)
[2018-12-17] MEDS: INSULIN DETEMIR (LEVEMIR) 100 UNIT/ML SYR SQ SCH (18:41)
[2018-12-17] MEDS: LOSARTAN 25 MG TAB PO SCH (18:41)
[2018-12-17] MEDS: MUPIROCIN 2% OINT 22 GM TUBE NASAL SCH (18:41)
[2018-12-17] MEDS: FUROSEMIDE 40 MG TAB PO SCH (18:41)
[2018-12-17] MEDS: predniSONE 20 MG TAB PO SCH (18:41)
[2018-12-17] MEDS: HEPARIN SOD,PORK IN 0.45% NACL 25,000 UNIT in 0.45% NACL 1 250ML.BAG IV SCH (18:42)
--- NOTE | 2018-12-17 19:08 | PN ---
PROGRESS NOTE DATE OF SERVICE: 12/17/2018 This 78-year-old gentleman was admitted with CAD CABG is improving significantly. Blood sugar is still fluctuating. P.o. intake appears to be erratic. Patient complains of nausea. The patient has a Torres catheter also. The patient is on Flomax. No chest pain, no palpitation. EXAM: Pulse 85, blood pressure 120/66, respiration 18, temperature 96.9 degrees, pulse ox 100 percent on room air. HEENT: Conjunctivae normal. NECK: No jugular venous distention. CARDIOVASCULAR: S1, S2. RESPIRATORY SYSTEM: Breath sounds diminished at the bases. Scattered rhonchi and crackles. ABDOMEN: Soft. Nontender. NERVOUS SYSTEM: No focal deficits. LABS: WBC 11.2, hemoglobin 7.4, sodium 131, creatinine is 1.46, and glucose 38. ASSESSMENT: 1. Status post coronary artery disease and CABG. 2. History of recent acute non ST elevation myocardial infarction, present on admission. 3. Hyperkalemia. 4. Diabetes mellitus type 2 on insulin. 5. Congestive heart failure acute exacerbation, acute on chronic systolic dysfunction. 6. History of coronary artery disease. 7. History of congestive heart failure. 8. History of atrial fibrillation, paroxysmal. 9. History of diabetes mellitus type 2. 10.Hyperlipidemia. 11.History of anemia. 12.Increased WBC. 13.Increased creatinine with possible chronic kidney disease stage 3. RECOMMENDATIONS AND DISCUSSION: I recommend to continue current medications, continue with monitoring and symptomatic treatment. Otherwise at this time, we will monitor the patient closely. I would use with meals the insulin if the patient is taking enough food. Otherwise, recommend to follow the patient closely with Cardiovascular Surgery. Further recommendations to follow. MMODL / IJN: [id number] /
[2018-12-17 21:11] LABS: Glucose,Whole Blood 215 mg/dL (75-99)
[2018-12-17] MEDS: SENNOSIDES-DOCUSATE SODIUM 1 EACH TAB PO SCH (21:47)
[2018-12-18] MEDS: hydrALAZINE HCL 25 MG TAB PO SCH ×4 (00:36→23:43)
[2018-12-18] MEDS: HEPARIN SODIUM,PORCINE 5,000 UNIT/ML 1 ML VIAL SQ SCH ×4 (00:36→23:43)
[2018-12-18 02:05] LABS: Glucose,Whole Blood 110 mg/dL (75-99)
[2018-12-18 05:08] LABS: Glucose,Whole Blood 90 mg/dL (75-99)
[2018-12-18 06:31] LABS: Glucose,Whole Blood 137 mg/dL (75-99)
--- NOTE | 2018-12-18 06:46 | XR ---
EXAMINATION TYPE: XR chest 2V DATE OF EXAM: 12/18/2018 HISTORY: Postoperative CABG. REFERENCE: Previous study dated 12/17/2018. FINDINGS: There has been a midline sternotomy. The heart is mildly enlarged. There are small, bilateral effusions. There is bibasilar airspace disea se overall aeration has improved. IMPRESSION: IMPROVING POSTOPERATIVE CHANGE.
[2018-12-18 06:47] LABS: Anisocytosis Slight; HCT 23.6 % (39.0-53.0); HGB 7.3 gm/dL (13.0-17.5); Hypochromasia Moderate; MCH 27.2 pg (25.0-35.0); MCHC 30.9 g/dL (31.0-37.0); Mean Platelet Volume 6.8; Platelet Count 223 k/uL (150-450); Poikilocytosis Slight; RBC 2.68 m/uL (4.30-5.90); RDW 17.6 % (11.5-15.5); WBC 10.3 k/uL (3.8-10.6)
[2018-12-18 06:56] LABS: Calcium 7.5 mg/dL (8.4-10.2); Potassium 4.8 mmol/L (3.5-5.1)
[2018-12-18] MEDS: ASCORBIC ACID 500 MG TAB PO SCH ×2 (07:05→17:37)
[2018-12-18] MEDS: FERROUS SULFATE 325 MG TAB PO SCH ×2 (07:05→08:01)
[2018-12-18] MEDS: PANTOPRAZOLE 40 MG TABLET PO SCH (07:05)
[2018-12-18] MEDS: INSULIN ASPART (NovoLOG) 100 UNIT/ML VIAL SQ SCH ×7 (07:05→21:38)
[2018-12-18] MEDS: ATORVASTATIN 40 MG TAB PO SCH (08:01)
[2018-12-18] MEDS: ASPIRIN 81 MG PO SCH (08:01)
[2018-12-18] MEDS: CLOPIDOGREL 75 MG TAB PO SCH (08:01)
[2018-12-18] MEDS: TAMSULOSIN 0.4 MG CAP.ER.24H PO SCH ×2 (08:01→21:38)
[2018-12-18] MEDS: METOPROLOL TARTRATE 25 MG TAB PO SCH ×2 (08:01→21:38)
[2018-12-18] MEDS: TRIAMCINOLONE ACET 0.1% OINTMENT 15 GM TUBE TOPICAL SCH ×2 (08:02→22:29)
[2018-12-18] MEDS ORDERED: FUROSEMIDE 10 MG/ML 4 ML VIAL IV STA (09:42)
[2018-12-18] MEDS ORDERED: CALCIUM GLUCONATE 1 GM in SODIUM CHLORIDE 0.9% 100 ML IVPB ONE (10:00)
[2018-12-18] MEDS: IPRATROPIUM-ALBUTEROL 3 ML NEB INHALATION SCH ×4 (10:15→19:18)
--- NOTE | 2018-12-18 10:25 | P.PN ---
Subjective Mr. Carrasco is seen sitting up resting comfortably in the chair in no acute distress. He continues to feel tired and weak. He states he isn't getting any sleep and feels very cold all the time. Blood pressures have been running on the lower side and per the nurse he gets very light headed with minimal activity. Blood pressure 104/60 heart rate 83 afebrile maintaining oxygen saturation on room air. Laboratory data reviewed, WBC 10.3, hemoglobin 7.3, platelets 223, sodium 130, potassium 4.8, creatinine 1.43. GENERAL: Well-appearing, well-nourished and in no acute distress. NECK: Supple without JVD or thyromegaly. LUNGS: Bibasilar rales, scattered rhonchi. No wheezes. Respiration equal and unlabored. Diminished bilaterally. HEART: Regular rate and rhythm without murmurs, rubs or gallops. S1 and S2 heard. EXTREMITIES: Normal range of motion, bilateral lower extremity Gianni wrap in place with underlying edema. No clubbing or cyanosis. Peripheral pulses intact. ASSESSMENT Coronary artery disease status post bypass grafting following an acute myocardial infarction Intraoperative bleeding with chest tube in place Intermittent postoperative atrial flutter, currently maintaining sinus mechanism. Intolerant to amiodarone Acute on chronic systolic and diastolic heart failure ejection fraction 40-45% PLAN Check orthostatic vital signs every shift. Parameters antihypertensives, hold for systolic blood pressure less than 110. IV Lasix has been given per CT surgery. We'll continue to follow closely and make recommendations accordingly. Nurse Practitioner note has been reviewed, I agree with a documented findings and plan of care. Patient was seen and examined. Objective - Vital Signs Vital signs: Vital Signs Temp 97.7 F 12/18/18 08:00 Pulse 83 12/18/18 08:00 Resp 16 12/18/18 08:00 BP 104/60 12/18/18 08:00 Pulse Ox 99 12/18/18 08:00 Intake & Output 12/17/18 12/18/18 12/18/18 18:59 06:59 18:59 Intake Total 718 120 Output Total 412 019 825 Balance 24 -883 -704 Weight 87.7 kg Intake: Oral 718 120 Output: Drainage 80 95 25 Left Calf 80 95 25 Urine 550 400 800 Uretheral (Torres) 550 400 Other: Voiding Method Indwelling Catheter Indwelling Catheter # Bowel Movements 1 1 ABP, PAP, CO, CI - Last Documented Arterial Blood Pressure 140/54 Pulmonary Artery Pressure 49/20 Cardiac Output 4.2 Cardiac Index 2.3 - Labs CBC & Chem 7: 12/18/18 06:08 12/18/18 06:08 Labs: Abnormal Lab Results - Last 24 Hours (Table) 12/17/18 12/17/18 12/17/18 Range/Units 11:37 16:13 21:01 RBC (4.30-5.90) m/uL Hgb (13.0-17.5) gm/dL Hct (39.0-53.0) % MCHC (31.0-37.0) g/dL RDW (11.5-15.5) % Sodium (137-145) mmol/L BUN (9-20) mg/dL Creatinine (0.66-1.25) mg/dL POC Glucose (mg/dL) 180 H 153 H 215 H (75-99) mg/dL Calcium (8.4-10.2) mg/dL 12/18/18 12/18/18 12/18/18 Range/Units 02:01 06:08 06:08 RBC 2.68 L (4.30-5.90) m/uL Hgb 7.3 L (13.0-17.5) gm/dL Hct 23.6 L (39.0-53.0) % MCHC 30.9 L (31.0-37.0) g/dL RDW 17.6 H (11.5-15.5) % Sodium 130 L (137-145) mmol/L BUN 48 H (9-20) mg/dL Creatinine 1.43 H (0.66-1.25) mg/dL POC Glucose (mg/dL) 110 H (75-99) mg/dL Calcium 7.5 L (8.4-10.2) mg/dL 12/18/18 Range/Units 06:29 RBC (4.30-5.90) m/uL Hgb (13.0-17.5) gm/dL Hct (39.0-53.0) % MCHC (31.0-37.0) g/dL RDW (11.5-15.5) % Sodium (137-145) mmol/L BUN (9-20) mg/dL Creatinine (0.66-1.25) mg/dL POC Glucose (mg/dL) 137 H (75-99) mg/dL Calcium (8.4-10.2) mg/dL
--- NOTE | 2018-12-18 11:40 | PN ---
PROGRESS NOTE Patient is seen for followup for acute kidney injury post coronary artery bypass surgery. He has done fairly well. However, he remains volume overloaded. The patient denies any significant shortness of breath. He has had Torres reinserted secondary to urine retention. The Torres catheter was removed and he continues to have residuals about 300-600 mL. The patient is being followed by Urology. He is maintained on Flomax. On examination, blood pressure was 104/60, heart rate 83 per minute. He is afebrile. Examination of the heart S1, S2. Examination of the lungs, decreased breath sounds at bases. Abdomen is soft, nontender. Exam of lower extremities shows edema 2+ bilaterally. LABS SHOW: Sodium 130, potassium 4.8, BUN 48, serum creatinine 1.43, hemoglobin 7.3 g/dL, calcium 7.5. ASSESSMENT: 1. Acute kidney injury, acute tubular necrosis, currently nonoliguric renal function is stable. 2. Volume overload. Recommend Lasix 40 mg IV push today and continue with 40 mg p.o. daily. 3. Urine retention, being followed by Urology. Patient is maintained on Flomax as postvoid residuals continue to be around 300-600 mL. The patient is encouraged to continue to try and void. 4. Status post coronary artery bypass surgery. PLAN: Diurese patient gently. MMODL / IJN: [id number] /
[2018-12-18 11:41] LABS: Glucose,Whole Blood 164 mg/dL (75-99)
--- NOTE | 2018-12-18 12:30 | P.PN ---
Subjective Progress Note Date: 12/18/18 Principal diagnosis: Severe triple vessel coronary artery disease with a critical lesion involving the ostium of the circumflex, proximal right coronary artery and multiple lesions to the left anterior descending coronary artery and diagonal coronary artery, non-ST elevated myocardial infarction with elevated troponins as high as 28.600 this admission, congestive heart failure, acute on chronic systolic and diastolic with an ejection fraction 40-45%, moderate left ventricular diastolic dysfunction with mild to moderate mitral valve regurgitation, history of coronary artery disease with previous stent placement to his left anterior descending coronary artery in 2004, recent diagnosis of atrial flutter status post cardioversion on chronic Eliquis for home anticoagulation, right pleural effusion status post right thoracentesis with 900 mL of yellow fluid drained this admission, obesity, venous stasis ulcers to his right lower extremity, diabetes mellitus type 2 with an admission hemoglobin A1c of 7.8%, history of hypertension, hyperlipidemia, severe COPD with a preoperative FEV1 47% of predicted value, peripheral arterial disease with lower ABIs < 0.9 and prostate disorder. POD #10 urgent quadruple coronary artery bypass grafting using the left internal mammary artery to the left anterior descending artery,a reverse greater saphenous vein graft from the aorta to the first diagonal artery,a reverse greater saphenous vein graft from the aorta to the first obtuse marginal artery, a reverse greater saphenous vein graft from the aorta to the distal posterior la teral branch of the circumflex artery which is a dominant artery, bilateral pulmonary vein isolation using the radiofrequency bipolar clamp from [employer], intraoperative exclusion of the left atrial appendage using a 40 mm AtriClip, intraoperative transesophageal echocardiogram and epi-aortic scanning, and intraoperative graft flow measurements using the [employer] TV system, endoscopic harvesting of bilateral saphenous veins from the groin to the knee level. Postoperative acute blood loss anemia, expected outcome of surgery given hemodilution and cardiopulmonary bypass pump. Postoperative bradycardia, an unexpected but potential outcome, likely medication induced. Postoperative atrial flutter, an expected outcome due to his preoperative atrial flutter. Acute postoperative urinary retention, an unexpected outcome. The patient is currently sitting up to the bedside chair in no acute distress. He remains complaining of pain to his buttocks and denies any complaints of shortness of breath this time. He continues to feel fatigued and weak and still has a lack of appetite. Oxygen saturation are 97% on room air. He continues to achieve 500 mL on his incentive spirometry with much encouragement. He remains hemodynamically stable with no inotropic or pressor support, although his blood pressure has been running on the lower side throughout the evening with his current blood pressure 104/60 mmHg. Yesterday he was complaining of constipation and reports that his bowels did move yesterday and is been having some episodes of loose stools this morning. His Torres catheter was removed last evening as ordered by Dr. Brand from urology. Millie his registered nurse taking care of him today reports that he has been straight cathed 2 since his Torres catheter has been removed. Objective - Vital Signs Vital signs: Vital Signs Temp 96.8 F L 12/18/18 11:29 Pulse 52 L 12/18/18 12:07 Resp 18 12/18/18 11:29 BP 89/52 12/18/18 12:07 Pulse Ox 97 12/18/18 12:07 Intake & Output 12/17/18 12/18/18 12/18/18 18:59 06:59 18:59 Intake Total 718 120 Output Total 630 495 855 Balance 88 -495 -735 Weight 87.7 kg Intake: Oral 718 120 Output: Drainage 80 95 55 Left Calf 80 95 55 Urine 550 400 800 Uretheral (Torres) 550 400 Other: Voiding Method Indwelling Catheter Indwelling Catheter # Bowel Movements 1 1 ABP, PAP, CO, CI - Last Documented Arterial Blood Pressure 140/54 Pulmonary Artery Pressure 49/20 Cardiac Output 4.2 Cardiac Index 2.3 - Constitutional General appearance: Present: cooperative, no acute distress, obese - Respiratory Details: Lung sounds essentially clear to his bilateral upper lobes with some few scattered crackles, diminished to his bilateral bases. Respirations are symmetrical and nonlabored. Oxygen saturation are 97% on room air. Achieving 500 mL on his incentive spirometry. - Cardiovascular Details: Irregular heart rhythm with controlled rate. S1 and S2 present, negative for S3, gallop or murmur. Sternum is stable. Remote telemetry showing atrial flutter heart rate 80. Atrial and ventricular epicardial pacemaker wires remain in place and grounded. Heart hugger is in place and he is demonstrating appropriate use. Knee-high Gianni wraps and sequential compression devices in place to his bilateral lower extremities. - Gastrointestinal Gastrointestinal Comment(s): Abdomen is soft, nontender and nondistended. Active bowel sounds to all 4 abdominal quadrants. No guarding or rigidity. No organomegaly. - Genitourinary Genitourinary Comment(s): Straight cathed for 400 mL of tom urine. - Integumentary Integumentary Comment(s): Skin is warm and dry. No clubbing or cyanosis is present. Midline sternal incision is clean, dry and approximated. No drainage or redness is present. Gauze dressing is clean, dry and intact. Bilateral lower extremity EVH sites are clean, dry and approximated. No drainage or redness is present. Left leg FREDIS drain remains in place draining thin serosanguineous drainage. 120 mL output in the last 8 hours, 235 mL output in the last 24 hours. Right lower extremity remains with small erythematous area ulceration measuring 2.5 x 1.5 x 0.2 cm. Dressing is clean, dry and intact. - Neurologic Neurologic: Present: CNII-XII intact - Musculoskeletal Musculoskeletal: Present: gait normal, generalized weakness, strength equal bilaterally - Psychiatric Psychiatric: Present: A&O x's 3, appropriate affect, intact judgment & insight - Allied health notes Allied health notes reviewed: nursing - Labs CBC & Chem 7: 12/18/18 06:08 12/18/18 06:08 Labs: Abnormal Lab Results - Last 24 Hours (Table) 12/17/18 12/17/18 12/18/18 Range/Units 16:13 21:01 02:01 RBC (4.30-5.90) m/uL Hgb (13.0-17.5) gm/dL Hct (39.0-53.0) % MCHC (31.0-37.0) g/dL RDW (11.5-15.5) % Sodium (137-145) mmol/L BUN (9-20) mg/dL Creatinine (0.66-1.25) mg/dL POC Glucose (mg/dL) 153 H 215 H 110 H (75-99) mg/dL Calcium (8.4-10.2) mg/dL 12/18/18 12/18/18 12/18/18 Range/Units 06:08 06:08 06:29 RBC 2.68 L (4.30-5.90) m/uL Hgb 7.3 L (13.0-17.5) gm/dL Hct 23.6 L (39.0-53.0) % MCHC 30.9 L (31.0-37.0) g/dL RDW 17.6 H (11.5-15.5) % Sodium 130 L (137-145) mmol/L BUN 48 H (9-20) mg/dL Creatinine 1.43 H (0.66-1.25) mg/dL POC Glucose (mg/dL) 137 H (75-99) mg/dL Calcium 7.5 L (8.4-10.2) mg/dL 12/18/18 Range/Units 11:39 RBC (4.30-5.90) m/uL Hgb (13.0-17.5) gm/dL Hct (39.0-53.0) % MCHC (31.0-37.0) g/dL RDW (11.5-15.5) % Sodium (137-145) mmol/L BUN (9-20) mg/dL Creatinine (0.66-1.25) mg/dL POC Glucose (mg/dL) 164 H (75-99) mg/dL Calcium (8.4-10.2) mg/dL - Imaging and Cardiology Chest x-ray: report reviewed, image reviewed Assessment and Plan Assessment: 1. Severe triple-vessel coronary artery disease, non-STEMI, status post CABG 4 2. Acute on chronic systolic and diastolic heart failure with an ejection fraction 40-45%, compensated 3. Moderate left ventricular dysfunction with mild to moderate mitral valve regurgitation 4. Right-sided pleural effusion status post thoracentesis with removal of 900 mL transudate of fluid 5. Leukocytosis 6. Acute on chronic renal failure 7. History of coronary artery disease with previous stents to the LAD in 2004, evidence of remote lateral wall myocardial infarction 8. Recent diagnosis of atrial flutter status post cardioversion on Eliquis for chronic for anticoagulation 9. Hypertension 10. Hyperlipidemia 11. Uncontrolled diabetes mellitus with hemoglobin A1c 7.8% 12. 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 Peripheral artery disease 14. Chronic venous stasis ulcers to his right lower extremity 15. Prostate disorder, chronic Flomax use 16. Postoperative acute blood loss anemia, status post transfusion 1 unit packed red blood cells 17. Postoperative bradycardia, possibly medication induced 18. Hyperkalemia, resolved 19. Postoperative urinary retention 20. Constipation. Plan: 1. Continue aspirin, statin, Plavix, hydralazine and beta alfred. Will increase beta alfred as tolerated. 2. Continue to hold Amiodarone secondary to bradycardic episode after initiation. No anticoagulation yet until epicardial pacemaker wires. 3. Bronchodilators per pulmonology management. 4. Lasix 40 mg IV 1 now. Continue Flomax. Urology has been consult noted and appreciated. Reinitiate Torres catheter if continued urinary retention. 5. Encourage use of his incentive spirometry 10 times every hour while awake. 6. Increase activity as tolerated. PT/OT/cardiac rehab following. 7. Will monitor daily labs and x-rays. Electrolyte replacement per protocol. Calcium gluconate 1 g IVPB 1 now. 8. Pain control with current medication regimen. No narcotics. 9. Insulin management per primary care service. 10. GI/DVT prophylaxis with Protonix and heparin, SCDs. 11. Venous stasis ulcer wound care management per Dr. Eldridge. 12. Keep left FREDIS drain in place. 13. Patient will likely need rehab at discharge secondary to weakness, social work is following. Dr. Meier is following. 14. First postoperative day shower today. 15. More recommendations to follow based on patient's clinical course. Time with Patient: Greater than 30
--- NOTE | 2018-12-18 13:37 | P.PN ---
Subjective Progress Note Date: 12/18/18 This is a 78-year-old white male with history of paroxysmal atrial flutter status post transesophageal echo and cardioversion in August of 2018. Patient has been following up at the [facility] for his cardiac issues. Although his previous cardioversion was done by few months back. Patient is also known to have history of type 2 diabetes, hypertension, and for the last week and a half, the patient has been complaining of shortness of breath and uncomfortable feeling in the chest. The uncomfortable feeling is described as heaviness in the chest. And this one and on for at least a day or so. He shortness of breath has become more progressive over the last week and a half, he was seen in the [facility] and he was sent to the emergency room for further evaluation. Upon presentation to the ER, patient was noted to be short of breath, chest x-ray showed evidence of pulmonary edema with bilateral pleural effusions, seen by cardiology while in the ER, his EKG was suggestive of inferi or posterior wall FL, and patient was placed on Lasix drip, heparin, admitted to the intensive care unit, and I was asked to see him on consultation. Patient diuresed about 1 L of fluid overnight, however his chest x-ray continues to show bilateral pleural effusions, and I went ahead today and performed a right sided thoracentesis, I was able to drain about 900 mL of fluid from the right pleural space. The amount of the fluid on the left side was felt to be minimal, hence no need to perform thoracentesis on the left side at this point. In the meantime the patient was placed back on heparin, placed back on his cardiac meds, remains on diuretics, and may give a require cardiac catheterization. However his renal functioning has been noted to be compromise, and needs to be monitored. His CBC on admission showed WBC count of 11.8 hemoglobin of 13.8, his BUN was 31, and creatinine of 1.56. Blood sugar was noted to be 440, hence the patient was started on insulin drip upon arrival to the ICU last night. Troponin was significantly elevated at 26.4 and his BNP level was 23,300. Influenza screen was negative. Patient was reevaluated today on 12/02/2018, patient is feeling better, breathing a lot easier, his chest x-ray showed improvement, hardly any fluid in both lungs except for a small tiny right-sided pleural effusion/residual from his last thoracentesis. Patient is being considered for possible cardiac catheterization today. However his renal functioning is a bit worse today compared to yesterday.BUN is 59 and creatinine is 2.01. Patient is off Lasix drip, however he is on Lasix IV push. His urine output is excellent. Patient has no cough no wheezing no shortness of breath no chest pain. All labs were reviewed today, he has a bit of leukocytosis with WBC count of 19.5, otherwise CBC is normal, and renal profile as noted above. Chest x-ray as noted earlier. Reevaluated today on 12/03/2018, patient continues to do well, his cardiac catheterization was postponed until Wednesday mostly because of his worsening renal functioning. Pulmonary-gaspar the patient is doing better, breathing a lot easier, denies any cough no wheezing no shortness of breath. And his chest x- ray continues to show complete resolution of his bilateral pleural effusions and pulmonary edema. WBC count is a bit elevated at 17.7, PTT is therapeutic, electrolytes are normal renal profile is improving BUN is down to 69 creatinine is down to 1.74. The patient is seen today 12/04/2018 in follow-up on the selective care unit. He is currently awake and alert in no acute distress. Up ambulating in his room. He denies any worsening shortness of breath, cough or congestion. He is maintaining good O2 saturations in the 90s on room air. He has been afebrile. Hemodynamically stable. Pleural fluid culture reveals no growth. Blood culture reveals no growth. White count 15.7. Hemoglobin 15.3. Creatinine 1.50. On 12/05/2018 patient seen in follow-up on selective care unit, patient had just returned from heart catheterization and he was found to have 60-70% lesion of the proximal LAD, first diagonal branch was 70-80% stenosis, and 99% stenosis of the ostium of the circumflex and RCA lesion of 95%. He is resting comfortably in bed currently, he is eating lunch, no complaints of chest pain or shortness of breath, referral was put in for cardiothoracic surgery for possibility of bypass grafting. On 12/06/2018 patient seen in follow-up on selective care unit, patient surgery is scheduled for , he sitting up in a recliner, in no acute distress, no shortness of breath or chest pain, lung sounds are positive for bibasilar rales, no significant rhonchi or wheezing. 0.9 normal saline at a rate of 50 ML per hour, heparin drip at 800 units per hour. One blood cell count is 23.4, hemoglobin is 15.2, sodium is 140, potassium is 4.9, chloride is 105, CO2 33, BUN is 53, creatinine is 1.34. Bedside PFT showed FEV1 of 47% of predicted, moderately severe obstructive pulmonary defect On 12/15/2018 patient seen in follow-up in intensive care unit, he is awake and alert, in no acute distress, sitting up in the recliner, he is on room air, his pulse ox is 96%, dynamically stable, afebrile. IS effort remains poor, patient is barely 0.500 mL on incentive spirometer, today's chest x-ray has been reviewed with Dr. Jacob, and shows bilateral consolidation and small pleural effusions, mild central venous congestion. Left pleural chest tubes are draining serous drainage, there has been 400 mL out of the right chest tube, and 250 mL out of the left chest tube, Torres catheter is in place, patient is nonoliguric, patient has been up ambulating, tolerates activity fairly well, today's labs have been reviewed, white blood cell count is 14.0, hemoglobin 7.8. Lung sounds are clear, diminished at the bases. Heart rate is controlled, patient is having some episodes of atrial flutter alternating with sinus rhythm. Torres catheter has been discontinued, but patient is having some incontinencre and urinary retention, and the Torres had to be replaced, urine culture has been sent. On 12/16/2018 I'm seeing this patient for a follow-up. The patient is using incentive spirometer. The patient was ambulating in the hallway. No new complaints. Right pleural chest tube is in place. Left pleural chest tube has been removed. The renal function continues to slowly improve. Hyperkalemia recovered. No cardiac arrhythmias. No nausea. No vomiting. No abdominal pain. No chest pain. Sternum stable clean and intact. The patient continues to have episodes of flutter rhythm with low rate. No other significant events overnight otherwise. Patient seen today 12/17/2018 in follow-up on the selective care unit. He is awake and alert in no acute distress. He has been slow to progress however. He needs increased encouragement using incentive spirometer and cough and deep breathing exercises. He's been up ambulating in the hallway with assistance. He currently denies any worsening shortness of breath, cough or congestion. He is maintaining good O2 saturations up to 100% on room air. He's been afebrile. Hemodynamically stable. His pain is well controlled. Blood, sputum and urine cultures reveal no growth. Chest x-ray reveals cardiomegaly, bibasilar airspace disease, small bilateral effusions. On 12/18/2018 I'm seeing this patient for a follow-up. The patient is doing well. No specific complaints. Resting comfortably in bed. He is currently on room in oxygen. No chest pain. No respiratory distress. Surgical wound is dry clean and intact. His appetite is poor. Pulse ox is 97% on room air. Pulling only 500 mL on the incentive spirometer. The patient was having issues with his Torres catheter that was removed by urology. We are monitoring the urine output and the patient had to be straight cathed twice. Objective - Vital Signs Vital signs: Vital Signs Temp 96.8 F L 12/18/18 11:29 Pulse 52 L 12/18/18 12:07 Resp 18 12/18/18 11:29 BP 89/52 12/18/18 12:07 Pulse Ox 97 12/18/18 12:07 Intake & Output 12/17/18 12/18/18 12/18/18 18:59 06:59 18:59 Intake Total 718 120 Output Total 630 495 855 Balance 88 -495 -735 Weight 87.7 kg Intake: Oral 718 120 Output: Drainage 80 95 55 Left Calf 80 95 55 Urine 550 400 800 Uretheral (Torres) 550 400 Other: Voiding Method Indwelling Catheter Indwelling Catheter # Bowel Movements 1 1 ABP, PAP, CO, CI - Last Documented Arterial Blood Pressure 140/54 Pulmonary Artery Pressure 49/20 Cardiac Output 4.2 Cardiac Index 2.3 - Exam - Constitutional General appearance: Present: cooperative, no acute distress, obese - Respiratory Details: Lungs sounds are essentially clear to his bilateral upper lobes, diminished to his bilateral bases. Sternal stable clean and intact. - Cardiovascular Details: Regular rhythm and rate. S1 and S2 present, negative for S3, gallop or murmur. Sternum is stable. Bedside telemetry showing normal sinus rhythm heart rate 82. Atrial and ventricular epicardial pacemaker wires intact and grounded. Generalized +1 edema to his bilateral upper and lower extremities. Right brachial PICC line present and functioning. Heart hugger is in place and he is demonstrating appropriate use. Knee-high DAV hose and sequential compression devices in place to his bilateral lower extremities. - Gastrointestinal Gastrointestinal Comment(s): Abdomen is soft, nontender and nondistended. Hypoactive bowel sounds present in all 4 abdominal quadrants. Tolerating oral intake. No guarding or rigidity. - Genitourinary Genitourinary Comment(s): Torres catheter for accurate I&O and urine retention. Draining clear tom urine. 450 mL output in the last 8 hours. - Integumentary Integumentary Comment(s): Skin is warm and dry. No clubbing or cyanosis is present. Midline sternal incision is clean, dry and approximated. No drainage or redness is present. Gauze dressing is clean, dry and intact. Bilateral lower extremity EVH sites are clean, dry and approximated. No drainage or redness is present. Left leg FREDIS drain remains in place draining thin serosanguineous drainage. 235 mL output in the last 8 hours, 80 mL output in the last 8 hours. - Neurologic Neurologic: Present: CNII-XII intact - Musculoskeletal Musculoskeletal: Present: generalized weakness, right sided weakness - Psychiatric Psychiatric: Present: A&O x's 3, appropriate affect, intact judgment & insight - Labs CBC & Chem 7: 12/18/18 06:08 12/18/18 06:08 Labs: Abnormal Lab Results - Last 24 Hours (Table) 12/17/18 12/17/18 12/18/18 Range/Units 16:13 21:01 02:01 RBC (4.30-5.90) m/uL Hgb (13.0-17.5) gm/dL Hct (39.0-53.0) % MCHC (31.0-37.0) g/dL RDW (11.5-15.5) % Sodium (137-145) mmol/L BUN (9-20) mg/dL Creatinine (0.66-1.25) mg/dL POC Glucose (mg/dL) 153 H 215 H 110 H (75-99) mg/dL Calcium (8.4-10.2) mg/dL 12/18/18 12/18/18 12/18/18 Range/Units 06:08 06:08 06:29 RBC 2.68 L (4.30-5.90) m/uL Hgb 7.3 L (13.0-17.5) gm/dL Hct 23.6 L (39.0-53.0) % MCHC 30.9 L (31.0-37.0) g/dL RDW 17.6 H (11.5-15.5) % Sodium 130 L (137-145) mmol/L BUN 48 H (9-20) mg/dL Creatinine 1.43 H (0.66-1.25) mg/dL POC Glucose (mg/dL) 137 H (75-99) mg/dL Calcium 7.5 L (8.4-10.2) mg/dL 12/18/18 Range/Units 11:39 RBC (4.30-5.90) m/uL Hgb (13.0-17.5) gm/dL Hct (39.0-53.0) % MCHC (31.0-37.0) g/dL RDW (11.5-15.5) % Sodium (137-145) mmol/L BUN (9-20) mg/dL Creatinine (0.66-1.25) mg/dL POC Glucose (mg/dL) 164 H (75-99) mg/dL Calcium (8.4-10.2) mg/dL Assessment and Plan Plan: 1 severe triple-vessel disease and the patient undergone four-vessel bypass surgery. The patient is post subacute inferoposterior myocardial infarction. The patient is postop day #10. 2 acute congestive heart failure secondary to subacute myocardial infarction, suspect ischemic cardiomyopathy and impaired LV function with ejection fraction 40-45%, currently well compensated. 3 multivessel coronary artery disease, post coronary artery bypass surgery 4 type 2 diabetes, on insulin patient is normally on glipizide insulin and metformin. 5 hypertension, patient is normally on Lopressor 6 hyperlipidemia 7 history of atrial flutter requiring cardioversion in August of 2018. 8 history of underlying coronary artery disease, and previous PCI. 9 status post right sided thoracentesis, fluid was reviewed today, and it is transudative in nature, this is cardiac in nature and not related to infection. 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 Continue cardiac medications. No anticoagulation yet until the epicardial pacemaker wires are removed. A 40 mg IV push. Urology has been consulted regarding the urinary retention with the possibility of reinitiating a Torres catheter insertion. We'll continue to follow.
--- NOTE | 2018-12-18 15:57 | PN ---
PROGRESS NOTE DATE OF SERVICE: 12/18/2018. HISTORY: This 78-year-old gentleman who was admitted after CAD with CABG is being closely monitored. The patient is p.o. intake appears to be poor and erratic, also blood sugars are being treated because of that. No chest pain. No palpitations. No fever. EXAM: Alert and oriented x3. Pulse is 60, blood pressure 90/50, respirations 18, temperature 98.8, pulse ox 98% on room air HEENT conjunctivae normal. NECK: No JVD. CARDIOVASCULAR: S1 and S2 muffled. RESPIRATORY: Breath sounds diminished at the bases. Few rhonchi. No crackles. ABDOMEN: Soft, nontender. EXTREMITIES: Legs no edema, no swelling. NERVOUS SYSTEM: No focal deficits. LAB STUDIES: WBC 10.3, hemoglobin 7.3, creatinine is 1.43. ASSESSMENT: 1. Status post CAD and CABG. 2. History of recent acute non-ST elevation myocardial infarction, present on admission. 3. Hyperkalemia. 4. Diabetes type 2 on insulin. 5. Congestive heart failure acute exacerbation, acute on chronic systolic dysfunction. 6. History of CAD. 7. History of congestive heart failure. 8. History atrial fibrillation. 9. History of diabetes type 2. 10.Hyperlipidemia. 11.History of anemia. 12.Increased WBC. 13.Increased creatinine with possible chronic kidney stage 3. RECOMMENDATIONS: Continue current management and symptomatic treatment at this time. We will monitor the patient closely. Continue the insulin with meals and follow the scale. We will discharge on long-term insulin as sugars are elevated and patient has a fairly stable schedule. MMODL / CHAYON: [id number] /
[2018-12-18 17:35] LABS: Glucose,Whole Blood 181 mg/dL (75-99)
[2018-12-18 20:56] LABS: Glucose,Whole Blood 240 mg/dL (75-99)
[2018-12-18] MEDS: SENNOSIDES-DOCUSATE SODIUM 1 EACH TAB PO SCH (21:38)
[2018-12-18] MEDS: ACETAMINOPHEN TAB 325 MG TAB PO PRN (21:39)
[2018-12-19 02:47] LABS: Glucose,Whole Blood 116 mg/dL (75-99)
[2018-12-19] MEDS: ACETAMINOPHEN TAB 325 MG TAB PO PRN ×3 (04:06→20:32)
[2018-12-19 06:52] LABS: Glucose,Whole Blood 130 mg/dL (75-99)
[2018-12-19] MEDS: ASCORBIC ACID 500 MG TAB PO SCH ×2 (06:52→17:42)
[2018-12-19] MEDS: INSULIN ASPART (NovoLOG) 100 UNIT/ML VIAL SQ SCH ×7 (06:52→20:29)
[2018-12-19] MEDS: PANTOPRAZOLE 40 MG TABLET PO SCH (06:52)
[2018-12-19] MEDS: IPRATROPIUM-ALBUTEROL 3 ML NEB INHALATION SCH ×4 (07:51→19:18)
--- NOTE | 2018-12-19 08:08 | XR ---
EXAMINATION TYPE: XR chest 1V portable DATE OF EXAM: 12/19/2018 Comparison: 12/18/2018 Clinical History: 78-year-old male post op CABG Findings: Heart mildly enlarged. Perihilar and interstitial densities with small effusions. No appreciable pneu mothorax. Impression: Interstitial changes and mild cardiomegaly. Small effusions. Correlate for possible mild CHF, slightl y worsened from prior.
[2018-12-19 08:29] LABS: Anisocytosis Slight; HCT 24.4 % (39.0-53.0); HGB 7.7 gm/dL (13.0-17.5); Hypochromasia Marked; MCH 28.2 pg (25.0-35.0); MCHC 31.7 g/dL (31.0-37.0); MCV 88.8 fL (80.0-100.0); Mean Platelet Volume 6.8; Platelet Count 221 k/uL (150-450); Poikilocytosis Slight; RBC 2.74 m/uL (4.30-5.90); RDW 18.5 % (11.5-15.5); WBC 10.3 k/uL (3.8-10.6)
[2018-12-19 08:42] LABS: Calcium 7.8 mg/dL (8.4-10.2); Magnesium 2.4 mg/dL (1.6-2.3)
[2018-12-19] MEDS ORDERED: FUROSEMIDE 10 MG/ML 4 ML VIAL IV STA (09:01)
--- NOTE | 2018-12-19 09:05 | P.PN ---
Subjective Progress Note Date: 12/19/18 Principal diagnosis: Severe triple vessel coronary artery disease with a critical lesion involving the ostium of the circumflex, proximal right coronary artery and multiple lesions to the left anterior descending coronary artery and diagonal coronary artery, non-ST elevated myocardial infarction with elevated troponins as high as 28.600 this admission, congestive heart failure, acute on chronic systolic and diastolic with an ejection fraction 40-45%, moderate left ventricular diastolic dysfunction with mild to moderate mitral valve regurgitation, history of coronary artery disease with previous stent placement to his left anterior descending coronary artery in 2004, recent diagnosis of atrial flutter status post cardioversion on chronic Eliquis for home anticoagulation, right pleural effusion status post right thoracentesis with 900 mL of yellow fluid drained this admission, obesity, venous stasis ulcers to his right lower extremity, diabetes mellitus type 2 with an admission hemoglobin A1c of 7.8%, history of hypertension, hyperlipidemia, severe COPD with a preoperative FEV1 47% of predicted value, peripheral arterial disease with lower ABIs < 0.9 and prostate disorder. POD #11 urgent quadruple coronary artery bypass grafting using the left internal mammary artery to the left anterior descending artery,a reverse greater saphenous vein graft from the aorta to the first diagonal artery,a reverse greater saphenous vein graft from the aorta to the first obtuse marginal artery, a reverse greater saphenous vein graft from the aorta to the distal posterior la teral branch of the circumflex artery which is a dominant artery, bilateral pulmonary vein isolation using the radiofrequency bipolar clamp from [employer], intraoperative exclusion of the left atrial appendage using a 40 mm AtriClip, intraoperative transesophageal echocardiogram and epi-aortic scanning, and intraoperative graft flow measurements using the [email or web address] system, endoscopic harvesting of bilateral saphenous veins from the groin to the knee level. Postoperative acute blood loss anemia, expected outcome of surgery given hemodilution and cardiopulmonary bypass pump. Postoperative bradycardia, an unexpected but potential outcome, likely medication induced. Postoperative atrial flutter, an expected outcome due to his preoperative atrial flutter. Acute postoperative urinary retention, an unexpected outcome. The patient is currently sitting up to the bedside chair in no acute distress. He denies any complaints of pain or shortness of breath at this time. He reports that this is the best he has felt since his surgery. He remains hemodynamically stable, and has been afebrile. Ambulating in the hallway with assistance 2 yesterday. Oxygen saturations are 97% on room air and he is achieving 500 mL on his incentive spirometry. Yesterday he was having some episodes of urinary retention requiring straight cath 2 and subsequently placement of a Torres catheter. His appetite has improved today, denies any nausea or vomiting. Objective - Vital Signs Vital signs: Vital Signs Temp 98.2 F 12/19/18 04:05 Pulse 89 12/19/18 08:10 Resp 15 12/19/18 04:05 BP 100/56 12/19/18 04:05 Pulse Ox 98 12/19/18 07:54 Intake & Output 12/18/18 12/19/18 12/19/18 18:59 06:59 18:59 Intake Total 340 Output Total 1380 1270 Balance -1040 -1270 Weight 87.8 kg Intake: Intake, IV Titration 100 Amount Calcium Gluconate 1 gm In 100 Sodium Chloride 0.9% 100 ml @ 100 mls/hr IVPB ONCE ONE Rx#:[id number] Oral 240 Output: Drainage 80 70 Left Calf 80 70 Urine 1300 1200 Uretheral (Torres) 400 700 Other: Voiding Method Indwelling Catheter Indwelling Catheter # Voids 1 0 # Bowel Movements 1 0 ABP, PAP, CO, CI - Last Documented Arterial Blood Pressure 140/54 Pulmonary Artery Pressure 49/20 Cardiac Output 4.2 Cardiac Index 2.3 - Constitutional General appearance: Present: cooperative, no acute distress, obese - Respiratory Details: Lung sounds with few scattered crackles to his bilateral bases. Respirations are symmetrical and nonlabored. Oxygen saturation are 97% on room air. Achieving 500 mL on his incentive spirometry. - Cardiovascular Details: Regular rhythm and rate. S1 and S2 present, negative for S3, gallop or murmur. Sternum is stable. Remote telemetry showing normal sinus rhythm heart with a first-degree block heart rate 88. Atrial and ventricular epicardial pacemaker wires in place and grounded. Heart hugger is in place and he is demonstrating appropriate use. Knee-high Gianni wraps and sequential compression devices in place to his bilateral lower extremities. Right antecubital PICC line in place and functioning. - Gastrointestinal Gastrointestinal Comment(s): Abdomen is soft, nontender and nondistended. Active bowel sounds all 4 abdominal quadrants. No guarding or rigidity. No organomegaly. Tolerating oral intake. - Genitourinary Genitourinary Comment(s): Torres catheter for urinary retention and accurate I&O. Draining clear yellow urine. - Integumentary Integumentary Comment(s): Skin is warm and dry. No clubbing or cyanosis is present. Midline sternal incision is clean, dry and approximated. No drainage or redness is present. Gauze dressing is clean, dry and intact. Bilateral lower extremity EVH sites are clean, dry and approximated. No drainage or redness is present. Left leg FREDIS drain remains in place draining thin serosanguineous drainage. 70 mL output in the last 24 hours. Right lower extremity remains with small erythematous area ulceration measuring. Dressing is clean, dry and intact. - Neurologic Neurologic: Present: CNII-XII intact - Musculoskeletal Musculoskeletal: Present: gait normal, generalized weakness, strength equal bilaterally - Psychiatric Psychiatric: Present: A&O x's 3, appropriate affect, intact judgment & insight - Allied health notes Allied health notes reviewed: nursing - Labs CBC & Chem 7: 12/19/18 08:11 12/19/18 08:11 Labs: Abnormal Lab Results - Last 24 Hours (Table) 12/18/18 12/18/18 12/18/18 Range/Units 11:39 17:14 20:54 RBC (4.30-5.90) m/uL Hgb (13.0-17.5) gm/dL Hct (39.0-53.0) % RDW (11.5-15.5) % Sodium (137-145) mmol/L BUN (9-20) mg/dL Creatinine (0.66-1.25) mg/dL Glucose (74-99) mg/dL POC Glucose (mg/dL) 164 H 181 H 240 H (75-99) mg/dL Calcium (8.4-10.2) mg/dL Magnesium (1.6-2.3) mg/dL 12/19/18 12/19/18 12/19/18 Range/Units 02:45 06:51 08:11 RBC 2.74 L (4.30-5.90) m/uL Hgb 7.7 L (13.0-17.5) gm/dL Hct 24.4 L (39.0-53.0) % RDW 18.5 H (11.5-15.5) % Sodium (137-145) mmol/L BUN (9-20) mg/dL Creatinine (0.66-1.25) mg/dL Glucose (74-99) mg/dL POC Glucose (mg/dL) 116 H 130 H (75-99) mg/dL Calcium (8.4-10.2) mg/dL Magnesium (1.6-2.3) mg/dL 12/19/18 Range/Units 08:11 RBC (4.30-5.90) m/uL Hgb (13.0-17.5) gm/dL Hct (39.0-53.0) % RDW (11.5-15.5) % Sodium 129 L (137-145) mmol/L BUN 48 H (9-20) mg/dL Creatinine 1.57 H (0.66-1.25) mg/dL Glucose 160 H (74-99) mg/dL POC Glucose (mg/dL) (75-99) mg/dL Calcium 7.8 L (8.4-10.2) mg/dL Magnesium 2.4 H (1.6-2.3) mg/dL - Imaging and Cardiology Chest x-ray: report reviewed, image reviewed Assessment and Plan Assessment: 1. Severe triple-vessel coronary artery disease, non-STEMI, status post CABG 4 2. Acute on chronic systolic and diastolic heart failure with an ejection fraction 40-45%, compensated 3. Moderate left ventricular dysfunction with mild to moderate mitral valve regurgitation 4. Right-sided pleural effusion status post thoracentesis with removal of 900 mL transudate of fluid 5. Leukocytosis 6. Acute on chronic renal failure 7. History of coronary artery disease with previous stents to the LAD in 2004, evidence of remote lateral wall myocardial infarction 8. Recent diagnosis of atrial flutter status post cardioversion on Eliquis for chronic for anticoagulation 9. Hypertension 10. Hyperlipidemia 11. Uncontrolled diabetes mellitus with hemoglobin A1c 7.8% 12. 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 Peripheral artery disease 14. Chronic venous stasis ulcers to his right lower extremity 15. Prostate disorder, chronic Flomax use 16. Postoperative acute blood loss anemia, status post transfusion 1 unit packed red blood cells 17. Postoperative bradycardia, possibly medication induced 18. Hyperkalemia, resolved 19. Postoperative urinary retention, requiring placement of Torres catheter. Plan: 1. Continue aspirin, statin, Plavix, hydralazine and beta alfred. Will increase beta alfred as tolerated. 2. Continue to hold Amiodarone secondary to bradycardic episode after initiation. No anticoagulation yet until epicardial pacemaker wires. 3. Bronchodilators per pulmonology management. 4. Lasix 40 mg IV 1 now. Continue Flomax. Urology has been consult noted and appreciated. Reinitiate Torres catheter if continued urinary retention. 5. Encourage use of his incentive spirometry 10 times every hour while awake. 6. Increase activity as tolerated. PT/OT/cardiac rehab following. 7. Will monitor daily labs and x-rays. Electrolyte replacement per protocol. 8. Pain control with current medication regimen. No narcotics. 9. Insulin management per primary care service. 10. GI/DVT prophylaxis with Protonix and heparin, SCDs. 11. Venous stasis ulcer wound care management recommendations per Dr. Eldridge. 12. Remove left lower extremity FREDIS drain. 13. Patient will likely need inpatient rehab at discharge secondary to weakness, social work is following. Dr. Meier is following. 14. Remove atrial and ventricular epicardial pacemaker wires, bed rest for 1 hour post pacemaker wire removal. 15. More recommendations to follow based on patient's clinical course. Time with Patient: Greater than 30
[2018-12-19] MEDS: ASPIRIN 81 MG PO SCH (09:06)
[2018-12-19] MEDS: METOPROLOL TARTRATE 25 MG TAB PO SCH ×2 (09:06→20:23)
[2018-12-19] MEDS: FERROUS SULFATE 325 MG TAB PO SCH (09:06)
[2018-12-19] MEDS: CLOPIDOGREL 75 MG TAB PO SCH (09:07)
[2018-12-19] MEDS: hydrALAZINE HCL 25 MG TAB PO SCH ×2 (09:07→16:10)
[2018-12-19] MEDS: TAMSULOSIN 0.4 MG CAP.ER.24H PO SCH ×2 (09:07→20:30)
[2018-12-19] MEDS: ATORVASTATIN 40 MG TAB PO SCH (09:07)
[2018-12-19] MEDS: HEPARIN SODIUM,PORCINE 5,000 UNIT/ML 1 ML VIAL SQ SCH ×2 (09:07→16:10)
--- NOTE | 2018-12-19 10:30 | P.PN ---
Subjective Progress Note Date: 12/19/18 This is a 78-year-old white male with history of paroxysmal atrial flutter status post transesophageal echo and cardioversion in August of 2018. Patient has been following up at [facility] for his cardiac issues. Although his previous cardioversion was done by few months back. Patient is also known to have history of type 2 diabetes, hypertension, CAD with prior stent placements, and for the last week and a half, the patient has been complaining of shortness of breath and uncomfortable feeling in the chest. The uncomfortable feeling is described as heaviness in the chest. And this one and on for at least a day or so. He shortness of breath has become more progressive over the last week and a half, he was seen in the [facility] and he was sent to the emergency room for further evaluation. Upon presentation to the ER, patient was noted to be short of breath, chest x-ray showed evidence of pulmonary edema with bilateral pleural effusions,his EKG was suggestive of inferior posterior wall GA, and patient was placed on Lasix drip, heparin, admitted to the intensive care unit. Patient did undergo thoracentesis in the intensive care unit. He did rule in for a non-ST elevation myocardial infarction, was taken to the cardiac catheterization lab yesterday and was found to have a critical lesion involving the ostium of the circumflex which seemed to be the culprit vessel, 90-95% stenosis of the ostium and the proximal portion of the RCA which may be chronic. There is also about a 70% stenosis in the proximal LAD and proximal diagonal. The stent in the mid LAD appeared to be patent. Multiple lesions involving the distal LAD, surgical consultation was requested. Patient has been seen in consultation by cardiothoracic surgery and the plan is to proceed with coronary artery bypass grafting surgery on of this week. He was seen and examined this morning, denied any chest pain or difficulty in breathing. Blood pressure 144/70 with a heart rate in the 60s to 70s, 98% on room air. White blood cell count 23.4, hemoglobin 15.2, platelet count 347. Sodium 140, potassium 4.9, BUN 53 and creatinine 1.3. Patient's current medications include aspirin 81 mg daily, Coreg 3.125 mg twice a day, Lasix 40 twice a day, heparin drip, losartan 25 mg daily, Pravachol 20 daily. 12/07/2018 Patient was seen and examined this morning, overall doing well. Breathing is stable, denies any chest discomfort. States he didn't sleep too well through the night last night, a little anxious about his surgery. Blood pressure 146/76 with a heart rate in the 70s, 97% on 2 L of oxygen. White blood cell count 20.4, hemoglobin 14.1, platelet count 304. Sodium 140, potassium 4.8, BUN 43 and creatinine 1.2. 12/19/2018 Patient is status post quadruple coronary artery bypass grafting surgery using left internal mammary artery to the LAD, reverse greater saphenous vein graft from the aorta to the first diagonal artery, reverse greater saphenous vein graft from the aorta to the first obtuse marginal, reverse greater saphenous vein graft from the aorta to the distal posterior lateral branch of the circumflex which is a dominant artery, bilateral pulmonary vein isolation, intraoperative exclusion of the left atrial appendage. Patient was seen and examined this morning, sitting up in his chair at bedside. Breathing is overall stable, he states that he did feel some shortness of breath later in the day yesterday. He is in quite cold, denies any chest discomfort. Reaching about 500 on his incentive spirometry. Patient is having some episodes of atrial flu tter. Pacer wires had been removed, anticoagulation initiation as per cardiac surgery. Blood pressure 108/50, heart rate in the 90s, 99% room air O2 sat. White blood cell count 10.3, hemoglobin 7.7, platelet count 221. Sodium 129, potassium 5.0, BUN 48 and creatinine 1.5. Objective - Vital Signs Vital signs: Vital Signs Temp 97.5 F L 12/19/18 08:57 Pulse 90 12/19/18 08:57 Resp 16 12/19/18 08:57 BP 107/51 12/19/18 08:57 Pulse Ox 99 12/19/18 08:57 Intake & Output 12/18/18 12/19/18 12/19/18 18:59 06:59 18:59 Intake Total 340 120 Output Total 1380 1270 25 Balance -1040 -1270 95 Weight 87.8 kg Intake: Intake, IV Titration 100 Amount Calcium Gluconate 1 gm In 100 Sodium Chloride 0.9% 100 ml @ 100 mls/hr IVPB ONCE ONE Rx#:[id number] Oral 240 120 Output: Drainage 80 70 25 Left Calf 80 70 25 Urine 1300 1200 Uretheral (Torres) 400 700 Other: Voiding Method Indwelling Catheter Indwelling Catheter Indwelling Catheter # Voids 1 0 # Bowel Movements 1 0 ABP, PAP, CO, CI - Last Documented Arterial Blood Pressure 140/54 Pulmonary Artery Pressure 49/20 Cardiac Output 4.2 Cardiac Index 2.3 - Exam GENERAL: Well-appearing, well-nourished and in no acute distress. NECK: Supple without JVD or thyromegaly. LUNGS: Bibasilar rales, scattered rhonchi. No wheezes. Respiration equal and unlabored. Diminished bilaterally. HEART: Regular rate and rhythm without murmurs, rubs or gallops. S1 and S2 heard. EXTREMITIES: Normal range of motion, bilateral lower extremity Gianni wrap in place with underlying edema. No clubbing or cyanosis. Peripheral pulses intact. - Labs CBC & Chem 7: 12/19/18 08:11 12/19/18 08:11 Labs: Abnormal Lab Results - Last 24 Hours (Table) 12/18/18 12/18/18 12/18/18 Range/Units 11:39 17:14 20:54 RBC (4.30-5.90) m/uL Hgb (13.0-17.5) gm/dL Hct (39.0-53.0) % RDW (11.5-15.5) % Sodium (137-145) mmol/L BUN (9-20) mg/dL Creatinine (0.66-1.25) mg/dL Glucose (74-99) mg/dL POC Glucose (mg/dL) 164 H 181 H 240 H (75-99) mg/dL Calcium (8.4-10.2) mg/dL Magnesium (1.6-2.3) mg/dL 12/19/18 12/19/18 12/19/18 Range/Units 02:45 06:51 08:11 RBC 2.74 L (4.30-5.90) m/uL Hgb 7.7 L (13.0-17.5) gm/dL Hct 24.4 L (39.0-53.0) % RDW 18.5 H (11.5-15.5) % Sodium (137-145) mmol/L BUN (9-20) mg/dL Creatinine (0.66-1.25) mg/dL Glucose (74-99) mg/dL POC Glucose (mg/dL) 116 H 130 H (75-99) mg/dL Calcium (8.4-10.2) mg/dL Magnesium (1.6-2.3) mg/dL 12/19/18 Range/Units 08:11 RBC (4.30-5.90) m/uL Hgb (13.0-17.5) gm/dL Hct (39.0-53.0) % RDW (11.5-15.5) % Sodium 129 L (137-145) mmol/L BUN 48 H (9-20) mg/dL Creatinine 1.57 H (0.66-1.25) mg/dL Glucose 160 H (74-99) mg/dL POC Glucose (mg/dL) (75-99) mg/dL Calcium 7.8 L (8.4-10.2) mg/dL Magnesium 2.4 H (1.6-2.3) mg/dL Assessment and Plan Plan: Plan: # 1 subacute inferoposterior myocardial infarction, #2 acute congestive heart failure secondary to subacute myocardial infarction, systolic , ischemic cardiomyopathy and impaired LV function with ejection fraction 40-45% #3 multivessel coronary artery disease, status post quadruple coronary artery bypass grafting surgery #4 type 2 diabetes, on insulin patient is normally on glipizide insulin and metformin. #5 hypertension #6 hyperlipidemia #7 history of atrial flutter requiring cardioversion in August of 2018. #8 history of underlying coronary artery disease, and previous PCI. #9 status post right sided thoracentesis Plan We will continue the patient on his current medications. Anticoagulation will be resumed as per cardiothoracic surgery. Continue the rest of the patient's medications. DNP note has been reviewed, I agree with a documented findings and plan of care. Patient was seen and examined.
[2018-12-19 12:03] LABS: Glucose,Whole Blood 217 mg/dL (75-99)
--- NOTE | 2018-12-19 12:14 | P.PN ---
Subjective History of present illness, from records This is a pleasant 78 years old male with past medical history of atrial fibrillation, diabetes mellitus, hyperlipidemia, osteoarthritis, congestive heart failure and ischemic heart disease. Patient presents because of worsening dyspnea over one week duration with no chest pain however he has some cough and yellow phlegm. No palpitation or dizziness, no change in urine or bowel habits. No fever. Patient blood pressure is stable at 146/82, saturating 92% on 4 L, he is afebrile. He has mild leukocytosis of 11.9 K, sodium 136, creatinine 1.5 which is close to baseline, glucose 471. Troponin 13.8, influenza is negative. Chest x-ray: Stable bilateral infiltrates suspicious for pneumonia, possible CHF as per radiologist report. EKG showing normal sinus rhythm at [address] depression in V2 to V6. QTC 510. In the emergency room he got aspirin, Coreg and Lasix once. Patient was started on Lasix drip and heparin drip. He is on losartan metoprolol as well. Subjective 12/19/2018 Patient seen and examined in the selective unit. He has inferior MT on admission his status post CABG, with ejection fraction 40-45%. Patient was lying in bed comfortable not in distress, no chest pain or dyspnea. Patient was still in January who could walk in the hallway today with no problems. The patient still has a Torres catheter for urinary retention. He had regular bowel movement yesterday. Tolerating diet well. Denies dizziness, lightheadedness or syncope. Vital signs are stable. Hemoglobin 7.7 which is stable. No leukocytosis which is resolved. Sodium is on the low side coming down slowly 131, 130 and 129 today. Creatinine is stable at 1.57, compared to 1.4 in the last few days. On discharge patient mostly will go to ECF. Objective - Vital Signs Vital signs: Vital Signs Temp 97.5 F L 12/19/18 08:57 Pulse 90 12/19/18 08:57 Resp 16 12/19/18 08:57 BP 107/51 12/19/18 08:57 Pulse Ox 99 12/19/18 08:57 Intake & Output 12/18/18 12/19/18 12/19/18 18:59 06:59 18:59 Intake Total 340 120 Output Total 1380 1270 25 Balance -1040 -1270 95 Weight 87.8 kg Intake: Intake, IV Titration 100 Amount Calcium Gluconate 1 gm In 100 Sodium Chloride 0.9% 100 ml @ 100 mls/hr IVPB ONCE ONE Rx#:[id number] Oral 240 120 Output: Drainage 80 70 25 Left Calf 80 70 25 Urine 1300 1200 Uretheral (Torres) 400 700 Other: Voiding Method Indwelling Catheter Indwelling Catheter Indwelling Catheter # Voids 1 0 # Bowel Movements 1 0 ABP, PAP, CO, CI - Last Documented Arterial Blood Pressure 140/54 Pulmonary Artery Pressure 49/20 Cardiac Output 4.2 Cardiac Index 2.3 - Exam GENERAL: The patient is alert and oriented x3, not in any acute distress. Well developed, well nourished. HEENT: Pupils are round and equally reacting to light. EOMI. No scleral icterus. No conjunctival pallor. Normocephalic, atraumatic. No pharyngeal erythema. No thyromegaly. CARDIOVASCULAR: S1 and S2 present. No murmurs, rubs, or gallops. PULMONARY: Chest is clear to auscultation, no wheezing or basal crackles. -ABDOMEN: Soft, nontender, nondistended, normoactive bowel sounds. No palpable organomegaly. Torres catheter is in place with clear urine. MUSCULOSKELETAL: No joint swelling or deformity. EXTREMITIES: No cyanosis, clubbing, or pedal edema. NEUROLOGICAL: Gross neurological examination did not reveal any focal deficits. SKIN: No rashes. - Labs CBC & Chem 7: 12/19/18 08:11 12/19/18 08:11 Labs: Abnormal Lab Results - Last 24 Hours (Table) 12/18/18 12/18/18 12/19/18 Range/Units 17:14 20:54 02:45 RBC (4.30-5.90) m/uL Hgb (13.0-17.5) gm/dL Hct (39.0-53.0) % RDW (11.5-15.5) % Sodium (137-145) mmol/L BUN (9-20) mg/dL Creatinine (0.66-1.25) mg/dL Glucose (74-99) mg/dL POC Glucose (mg/dL) 181 H 240 H 116 H (75-99) mg/dL Calcium (8.4-10.2) mg/dL Magnesium (1.6-2.3) mg/dL 12/19/18 12/19/18 12/19/18 Range/Units 06:51 08:11 08:11 RBC 2.74 L (4.30-5.90) m/uL Hgb 7.7 L (13.0-17.5) gm/dL Hct 24.4 L (39.0-53.0) % RDW 18.5 H (11.5-15.5) % Sodium 129 L (137-145) mmol/L BUN 48 H (9-20) mg/dL Creatinine 1.57 H (0.66-1.25) mg/dL Glucose 160 H (74-99) mg/dL POC Glucose (mg/dL) 130 H (75-99) mg/dL Calcium 7.8 L (8.4-10.2) mg/dL Magnesium 2.4 H (1.6-2.3) mg/dL 12/19/18 Range/Units 12:02 RBC (4.30-5.90) m/uL Hgb (13.0-17.5) gm/dL Hct (39.0-53.0) % RDW (11.5-15.5) % Sodium (137-145) mmol/L BUN (9-20) mg/dL Creatinine (0.66-1.25) mg/dL Glucose (74-99) mg/dL POC Glucose (mg/dL) 217 H (75-99) mg/dL Calcium (8.4-10.2) mg/dL Magnesium (1.6-2.3) mg/dL Assessment and Plan Assessment: Non-STEMI on admission. Status post coronary artery bypass grafting of 4 vessel disease acute on chronic systolic congestive heart failure, improved. Ejection fraction 40-45% Hyponatremia, asymptomatic Chronic kidney disease, stage III History of coronary artery disease History of congestive heart failure History of atrial fibrillation Diabetes mellitus Hyperlipidemia Plan: This is a pleasant 78 years old male who presents because of the STEMI and acute CHF, continue with beta blockers and MELIA inhibitor. Cardiology and cardiothoracic surgery teams consults are appreciated. \Continue with Torres catheter for urinary retention. Continue with aspirin and Plavix Labs and medication were reviewed.. Continue same treatment. Continue with symptomatic treatment. Resume home medication. Monitor lytes and vitals. DVT and GI prophylaxis. Further recommendations of the clinical course of the patient DVT prophylaxis: heparin GI Prophylaxis: Ppi Prognosis is guarded
--- NOTE | 2018-12-19 14:46 | PN ---
PROGRESS NOTE Patient is seen for followup for acute kidney injury, post coronary artery bypass surgery. Patient has done fairly well. However, he has had issues with urine retention and has had the Torres catheter replaced twice. He is being followed by Urology and is maintained on Flomax. Patient has also been volume overloaded and has been receiving Lasix IV almost on a daily basis. His creatinine has been staying at about 1.5 to 1.4 mg/dL. PHYSICAL EXAMINATION: This morning, patient is complaining of pain in his leg with the drain is currently being taken out. Blood pressure was 107/51, heart rate of 89 per minute. He is afebrile. Examination of the heart, S1, S2. Examination of the lungs, bilateral breath sounds are heard. Decreased breath sounds at bases with occasional crackles heard in the bases. Abdomen is soft, obese, nontender. Examination of the lower extremities shows edema 2+ bilaterally. 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 LABS: Show sodium 129, potassium 5.0, serum creatinine 1.57 and BUN 48, hemoglobin 7.7 g/dL. ASSESSMENT: 1. Acute kidney injury, acute tubular necrosis, nonoliguric, renal function fairly stable, serum creatinine staying 1.4-1.5 mg/dL. 2. Volume overload, status post IV Lasix almost on daily basis. We will give additional dose of 20 mg IV later on tonight. 3. Urinary retention, currently with reinsertion of Torres catheter second time. Patient is maintained on Flomax. He is also being followed by Urology. 4. Status post coronary artery bypass surgery, doing fairly well. 5. Anemia, multifactorial, status post surgery, fairly stable. No active bleeding noted at this time. 6. Hypervolemic hyponatremia. Expect improvement with continued diuresis. PLAN: Repeat IV Lasix 20 mg this evening. Encourage increased ambulation. MMODL / IJN: [id number] /
--- NOTE | 2018-12-19 15:07 | P.PN ---
Subjective Progress Note Date: 12/19/18 Principal diagnosis: subacute myocardial infarction with systolic congestive heart failure This is a 78-year-old white male with history of paroxysmal atrial flutter status post transesophageal echo and cardioversion in August of 2018. Patient has been following up at the [facility] for his cardiac issues. Although his previous cardioversion was done by few months back. Patient is also known to have history of type 2 diabetes, hypertension, and for the last week and a half, the patient has been complaining of shortness of breath and uncomfortable feeling in the chest. The uncomfortable feeling is described as heaviness in the chest. And this one and on for at least a day or so. He shortness of breath has become more progressive over the last week and a half, he was seen in the [facility] and he was sent to the emergency room for further evaluation. Upon presentation to the ER, patient was noted to be short of breath, chest x-ray showed evidence of pulmonary edema with bilateral pleural effusions, seen by cardiology while in the ER, his EKG was suggestive of inferior posterior wall PA, and patient was placed on Lasix drip, heparin, admitted to the intensive care unit, and I was asked to see him on consultation. Patient diuresed about 1 L of fluid overnight, however his chest x-ray continues to show bilateral pleural effusions, and I went ahead today and performed a right sided thoracentesis, I was able to drain about 900 mL of fluid from the right pleural space. The amount of the fluid on the left side was felt to be minimal, hence no need to perform thoracentesis on the left side at this point. In the meantime the patient was placed back on heparin, placed back on his cardiac meds, remains on diuretics, and may give a require cardiac catheterization. However his renal functioning has been noted to be compromise, and needs to be monitored. His CBC on admission showed WBC count of 11.8 hemoglobin of 13.8, his BUN was 31, and creatinine of 1.56. Blood sugar was noted to be 440, hence the patient was started on insulin drip upon arrival to the ICU last night. Troponin was significantly elevated at 26.4 and his BNP level was 23,300. Influenza screen was negative. Patient was reevaluated today on 12/02/2018, patient is feeling better, breathing a lot easier, his chest x-ray showed improvement, hardly any fluid in both lungs except for a small tiny right-sided pleural effusion/residual from his last thoracentesis. Patient is being considered for possible cardiac catheterization today. However his renal functioning is a bit worse today compared to yesterday.BUN is 59 and creatinine is 2.01. Patient is off Lasix drip, however he is on Lasix IV push. His urine output is excellent. Patient has no cough no wheezing no shortness of breath no chest pain. All labs were reviewed today, he has a bit of leukocytosis with WBC count of 19.5, otherwise CBC is normal, and renal profile as noted above. Chest x-ray as noted earlier. Reevaluated today on 12/03/2018, patient continues to do well, his cardiac catheterization was postponed until Wednesday mostly because of his worsening renal functioning. Pulmonary-gaspar the patient is doing better, breathing a lot easier, denies any cough no wheezing no shortness of breath. And his chest x- ray continues to show complete resolution of his bilateral pleural effusions and pulmonary edema. WBC count is a bit elevated at 17.7, PTT is therapeutic, electrolytes are normal renal profile is improving BUN is down to 69 creatinine is down to 1.74. The patient is seen today 12/04/2018 in follow-up on the selective care unit. He is currently awake and alert in no acute distress. Up ambulating in his room. He denies any worsening shortness of breath, cough or congestion. He is maintaining good O2 saturations in the 90s on room air. He has been afebrile. Hemodynamically stable. Pleural fluid culture reveals no growth. Blood culture reveals no growth. White count 15.7. Hemoglobin 15.3. Creatinine 1.50. On 12/05/2018 patient seen in follow-up on selective care unit, patient had just returned from heart catheterization and he was found to have 60-70% lesion of the proximal LAD, first diagonal branch was 70-80% stenosis, and 99% stenosis of the ostium of the circumflex and RCA lesion of 95%. He is resting comfortably in bed currently, he is eating lunch, no complaints of chest pain or shortness of breath, referral was put in for cardiothoracic surgery for possibility of bypass grafting. On 12/06/2018 patient seen in follow-up on selective care unit, patient surgery is scheduled for , he sitting up in a recliner, in no acute distress, no shortness of breath or chest pain, lung sounds are positive for bibasilar rales, no significant rhonchi or wheezing. 0.9 normal saline at a rate of 50 ML per hour, heparin drip at 800 units per hour. One blood cell count is 23.4, hemoglobin is 15.2, sodium is 140, potassium is 4.9, chloride is 105, CO2 33, BUN is 53, creatinine is 1.34. Bedside PFT showed FEV1 of 47% of predicted, moderately severe obstructive pulmonary defect On 12/15/2018 patient seen in follow-up in intensive care unit, he is awake and alert, in no acute distress, sitting up in the recliner, he is on room air, his pulse ox is 96%, dynamically stable, afebrile. IS effort remains poor, patient is barely 0.500 mL on incentive spirometer, today's chest x-ray has been reviewed with Dr. Jacob, and shows bilateral consolidation and small pleural effusions, mild central venous congestion. Left pleural chest tubes are draining serous drainage, there has been 400 mL out of the right chest tube, and 250 mL out of the left chest tube, Torres catheter is in place, patient is nonoliguric, patient has been up ambulating, tolerates activity fairly well, today's labs have been reviewed, white blood cell count is 14.0, hemoglobin 7.8. Lung sounds are clear, diminished at the bases. Heart rate is controlled, patient is having some episodes of atrial flutter alternating with sinus rhythm. Torres catheter has been discontinued, but patient is having some incontinencre and urinary retention, and the Torres had to be replaced, urine culture has been sent. On 12/19/2018 he is seen in follow-up on selective care unit, he is ambulating with the physical therapy, he is weak, needing extensive encouragement and frequ ent rest periods with ambulation. Pulse ox is 98%, hemodynamically patient is stable. Afebrile. His chest x-ray today showed interstitial changes and mild cardiomegaly, small pleural effusions. And received another dose of 20 mg of Lasix today, for ALLERGY is following, today's labs were reviewed, white blood cell, standpoint 3, hemoglobin is 7.7, serum sodium is 129, resting electrolytes were within normal limits, B1 is 48 creatinine is 1.57. he is not requiring any supplemental oxygen, chest tubes and wires have been discontinued. Discharge to subacute rehab is pending, possibly in the next 24 hours. Objective - Vital Signs Vital signs: Vital Signs Temp 97.5 F L 12/19/18 08:57 Pulse 98 12/19/18 11:00 Resp 18 12/19/18 11:00 BP 98/58 12/19/18 11:00 Pulse Ox 98 12/19/18 11:00 Intake & Output 12/18/18 12/19/18 12/19/18 18:59 06:59 18:59 Intake Total 340 120 Output Total 1380 1270 25 Balance -1040 -1270 95 Weight 87.8 kg Intake: Intake, IV Titration 100 Amount Calcium Gluconate 1 gm In 100 Sodium Chloride 0.9% 100 ml @ 100 mls/hr IVPB ONCE ONE Rx#:[id number] Oral 240 120 Output: Drainage 80 70 25 Left Calf 80 70 25 Urine 1300 1200 Uretheral (Torres) 400 700 Other: Voiding Method Indwelling Catheter Indwelling Catheter Indwelling Catheter # Voids 1 0 # Bowel Movements 1 0 ABP, PAP, CO, CI - Last Documented Arterial Blood Pressure 140/54 Pulmonary Artery Pressure 49/20 Cardiac Output 4.2 Cardiac Index 2.3 - Exam GENERAL EXAM: Alert, pleasant, 78-year-old white male comfortable in no apparent distress. HEAD: Normocephalic/atraumatic. EYES: Normal reaction of pupils, equal size. Conjunctiva pink, sclera white. NOSE: Clear with pink turbinates. THROAT: No erythema or exudates. NECK: No masses, no JVD, no thyroid enlargement, no adenopathy. CHEST: No chest wall deformity. Symmetrical expansion. Midsternal incision is clean dry and intact, well approximated, and chest tube sites are clean dry and intact. LUNGS: Equal air entry with basilar crackles CVS: Regular rate and rhythm, normal S1 and S2, no gallops, no murmurs, no rubs ABDOMEN: Soft, nontender. No hepatosplenomegaly, normal bowel sounds, no guarding or rigidity. EXTREMITIES: No clubbing, no edema, no cyanosis, 2+ pulses and upper and lower extremities. MUSCULOSKELETAL: Muscle strength and tone normal. SPINE: No scoliosis or deformity SKIN: No rashes CENTRAL NERVOUS SYSTEM: Alert and oriented -3. No focal deficits, tone is normal in all 4 extremities. PSYCHIATRIC: Alert and oriented -3. Appropriate affect. Intact judgment and insight. - Labs CBC & Chem 7: 12/19/18 08:11 12/19/18 08:11 Labs: Abnormal Lab Results - Last 24 Hours (Table) 12/18/18 12/18/18 12/19/18 Range/Units 17:14 20:54 02:45 RBC (4.30-5.90) m/uL Hgb (13.0-17.5) gm/dL Hct (39.0-53.0) % RDW (11.5-15.5) % Sodium (137-145) mmol/L BUN (9-20) mg/dL Creatinine (0.66-1.25) mg/dL Glucose (74-99) mg/dL POC Glucose (mg/dL) 181 H 240 H 116 H (75-99) mg/dL Calcium (8.4-10.2) mg/dL Magnesium (1.6-2.3) mg/dL 12/19/18 12/19/18 12/19/18 Range/Units 06:51 08:11 08:11 RBC 2.74 L (4.30-5.90) m/uL Hgb 7.7 L (13.0-17.5) gm/dL Hct 24.4 L (39.0-53.0) % RDW 18.5 H (11.5-15.5) % Sodium 129 L (137-145) mmol/L BUN 48 H (9-20) mg/dL Creatinine 1.57 H (0.66-1.25) mg/dL Glucose 160 H (74-99) mg/dL POC Glucose (mg/dL) 130 H (75-99) mg/dL Calcium 7.8 L (8.4-10.2) mg/dL Magnesium 2.4 H (1.6-2.3) mg/dL 12/19/18 Range/Units 12:02 RBC (4.30-5.90) m/uL Hgb (13.0-17.5) gm/dL Hct (39.0-53.0) % RDW (11.5-15.5) % Sodium (137-145) mmol/L BUN (9-20) mg/dL Creatinine (0.66-1.25) mg/dL Glucose (74-99) mg/dL POC Glucose (mg/dL) 217 H (75-99) mg/dL Calcium (8.4-10.2) mg/dL Magnesium (1.6-2.3) mg/dL Assessment and Plan Plan: 1 subacute inferoposterior myocardial infarction 2 acute congestive heart failure secondary to subacute myocardial infarction, suspect ischemic cardiomyopathy and impaired LV function with ejection fraction 40-45% 3 multivessel coronary artery disease, patient may need coronary artery bypass grafting 4 type 2 diabetes, on insulin patient is normally on glipizide insulin and metformin. 5 hypertension, patient is normally on Lopressor 6 hyperlipidemia 7 history of atrial flutter requiring cardioversion in August of 2018. 8 history of underlying coronary artery disease, and previous PCI. 9 status post right sided thoracentesis, fluid was reviewed today, and it is transudative in nature, this is cardiac in nature and not related to infection. Plan: Patient is doing well, continue encouraging deep breathing and coughing, today's chest x-ray has been reviewed, showed interstitial changes, fluid overload, patient was given an additional dose of IV Lasix. Clinically remains stable, no acute issues overnight. No fever or chills, signs are stable. Pending discharge to subacute rehab possibly next 24 hours. I performed a history & physical examination of the patient and discussed their management with my nurse practitioner, Demetria Ramos. I reviewed the nurse practitioner's note and agree with the documented findings and plan of care. Lung sounds are positive for clear breath sounds. The findings and the impression was discussed with the patient. I attest to the documentation by the nurse practitioner. Time with Patient: Less than 30
[2018-12-19] MEDS: TRIAMCINOLONE ACET 0.1% OINTMENT 15 GM TUBE TOPICAL SCH ×2 (16:10→20:29)
[2018-12-19 16:53] LABS: Glucose,Whole Blood 133 mg/dL (75-99)
[2018-12-19] MEDS ORDERED: FUROSEMIDE 10 MG/ML 2 ML VIAL IV ONE (18:00)
[2018-12-19 20:23] LABS: Glucose,Whole Blood 209 mg/dL (75-99)
[2018-12-19] MEDS: SENNOSIDES-DOCUSATE SODIUM 1 EACH TAB PO SCH (20:30)
[2018-12-20] MEDS: HEPARIN SODIUM,PORCINE 5,000 UNIT/ML 1 ML VIAL SQ SCH (00:01)
[2018-12-20] MEDS: hydrALAZINE HCL 25 MG TAB PO SCH ×2 (00:01→09:23)
[2018-12-20] MEDS: ACETAMINOPHEN TAB 325 MG TAB PO PRN (00:01)
[2018-12-20 03:07] LABS: Glucose,Whole Blood 162 mg/dL (75-99)
[2018-12-20 06:38] LABS: Anisocytosis Slight; HCT 23.5 % (39.0-53.0); HGB 7.5 gm/dL (13.0-17.5); Hypochromasia Moderate; MCH 28.4 pg (25.0-35.0); MCHC 32.1 g/dL (31.0-37.0); MCV 88.5 fL (80.0-100.0); Mean Platelet Volume 6.9; Platelet Count 218 k/uL (150-450); Poikilocytosis Slight; RBC 2.65 m/uL (4.30-5.90); RDW 18.4 % (11.5-15.5); WBC 8.3 k/uL (3.8-10.6)
[2018-12-20 06:45] LABS: Calcium 7.8 mg/dL (8.4-10.2); Potassium 4.8 mmol/L (3.5-5.1)
[2018-12-20 06:55] LABS: Glucose,Whole Blood 161 mg/dL (75-99)
[2018-12-20] MEDS: PANTOPRAZOLE 40 MG TABLET PO SCH (06:56)
[2018-12-20] MEDS: ASCORBIC ACID 500 MG TAB PO SCH (06:56)
[2018-12-20] MEDS: INSULIN ASPART (NovoLOG) 100 UNIT/ML VIAL SQ SCH ×4 (07:14→12:46)
[2018-12-20] MEDS: IPRATROPIUM-ALBUTEROL 3 ML NEB INHALATION SCH ×3 (07:46→15:48)
[2018-12-20] MEDS ORDERED: FUROSEMIDE 10 MG/ML 4 ML VIAL IV ONE (09:00)
[2018-12-20] MEDS ORDERED: APIXABAN 2.5 MG TABLET PO SCH (09:00)
--- NOTE | 2018-12-20 09:18 | XR ---
EXAMINATION TYPE: XR chest 1V portable DATE OF EXAM: 12/20/2018 COMPARISON: 12/19/2018 INDICATION: Postop CABG TECHNIQUE: Single frontal view of the chest is obtained. FINDINGS: The heart size is mildly prominent. The pulmonary vasculature is normal. Minimal left pleural effusion is present. A small right pleural effusion is also evident. IMPRESSION: 1. Small bilateral pleural effusions. 2. Cardiomegaly. 3. Exam is stable from comparison.
[2018-12-20] MEDS: METOPROLOL TARTRATE 25 MG TAB PO SCH (09:23)
[2018-12-20] MEDS: ASPIRIN 81 MG PO SCH (09:23)
[2018-12-20] MEDS: FERROUS SULFATE 325 MG TAB PO SCH (09:23)
[2018-12-20] MEDS: ATORVASTATIN 40 MG TAB PO SCH (09:23)
[2018-12-20] MEDS: TAMSULOSIN 0.4 MG CAP.ER.24H PO SCH (09:23)
[2018-12-20] MEDS: TRIAMCINOLONE ACET 0.1% OINTMENT 15 GM TUBE TOPICAL SCH (09:23)
--- NOTE | 2018-12-20 09:31 | P.PN ---
Subjective Progress Note Date: 12/20/18 Principal diagnosis: Severe triple vessel coronary artery disease with a critical lesion involving the ostium of the circumflex, proximal right coronary artery and multiple lesions to the left anterior descending coronary artery and diagonal coronary artery, non-ST elevated myocardial infarction with elevated troponins as high as 28.600 this admission, congestive heart failure, acute on chronic systolic and diastolic with an ejection fraction 40-45%, moderate left ventricular diastolic dysfunction with mild to moderate mitral valve regurgitation, history of coronary artery disease with previous stent placement to his left anterior descending coronary artery in 2004, recent diagnosis of atrial flutter status post cardioversion on chronic Eliquis for home anticoagulation, right pleural effusion status post right thoracentesis with 900 mL of yellow fluid drained this admission, obesity, venous stasis ulcers to his right lower extremity, diabetes mellitus type 2 with an admission hemoglobin A1c of 7.8%, history of hypertension, hyperlipidemia, severe COPD with a preoperative FEV1 47% of predicted value, peripheral arterial disease with bilateral lower extremity ABIs < 0.9 and prostate disorder. POD #12 urgent quadruple coronary artery bypass grafting using the left internal mammary artery to the left anterior descending artery,a reverse greater saphenous vein graft from the aorta to the first diagonal artery,a reverse greater saphenous vein graft from the aorta to the first obtuse marginal artery, a reverse greater saphenous vein graft from the aorta to the distal posterior lateral branch of the circumflex artery which is a dominant artery, bilateral pulmonary vein isolation using the radiofrequency bipolar clamp from [employer], intraoperative exclusion of the left atrial appendage using a 40 mm AtriClip, intraoperative transesophageal echocardiogram and epi-aortic scanning, and intraoperative graft flow measurements using the [employer] system, endoscopic harvesting of bilateral saphenous veins from the groin to the knee level. Postoperative acute blood loss anemia, expected outcome of surgery given hemodilution and cardiopulmonary bypass pump. Postoperative bradycardia, an unexpected but potential outcome, likely medication induced. Postoperative atrial flutter, an expected outcome due to his preoperative atrial flutter. Acute postoperative urinary retention, an unexpected outcome. The patient is currently sitting up to the bedside chair in no acute distress. He denies any complaints of pain or shortness of breath at this time. He remains hemodynamically stable and afebrile. He reports that he ambulated in the 3 S. cardiac stepdown unit hallway yesterday 3 with assistance from nursing staff and physical therapy. Oxygen saturation are 96% on room air and he is achieving 500 mL on his incentive spirometry. He is anxious to be discharged to inpatient rehab today. Objective - Vital Signs Vital signs: Vital Signs Temp 98.2 F 12/20/18 04:00 Pulse 74 12/20/18 07:57 Resp 15 12/20/18 04:00 BP 98/60 12/20/18 04:00 Pulse Ox 96 12/20/18 04:00 Intake & Output 12/19/18 12/20/18 12/20/18 18:59 06:59 18:59 Intake Total 240 400 Output Total 1825 1400 200 Balance -1585 -1400 200 Weight 87.9 kg Intake: Oral 240 400 Output: Drainage 25 Left Calf 25 Urine 1800 1400 200 Uretheral (Torres) 600 800 Other: Voiding Method Indwelling Catheter Indwelling Catheter # Voids 0 0 # Bowel Movements 1 ABP, PAP, CO, CI - Last Documented Arterial Blood Pressure 140/54 Pulmonary Artery Pressure 49/20 Cardiac Output 4.2 Cardiac Index 2.3 - Constitutional General appearance: Present: cooperative, no acute distress, obese - Respiratory Details: Lung sounds are essentially clear to his bilateral upper lobes, few scattered crackles to his bilateral bases. Respirations are symmetrical and nonlabored. Oxygen saturation are 96% on room air. Achieving 500 mL on his incentive spirometry. - Cardiovascular Details: Regular rhythm and rate. S1 and S2 present, negative for S3, gallop or murmur. Sternum is stable. Remote telemetry showing normal sinus rhythm with first- degree heart block heart rate 89. +1 generalized edema. Heart hugger is in place and he is demonstrating appropriate use. Knee-high Gianni wraps and sequential compression devices in place to his bilateral lower extremities. - Gastrointestinal Gastrointestinal Comment(s): Abdomen is soft, nontender and nondistended. Active bowel sounds all 4 abdominal quadrants. No guarding or rigidity. No organomegaly. Bowel movement this a.m. 12/20/2018. Tolerating oral intake. - Genitourinary Genitourinary Comment(s): Torres catheter for accurate I&O and urinary retention. Draining clear tom urine. 1400 mL output in the last 8 hours. - Integumentary Integumentary Comment(s): Skin is warm and dry. No clubbing or cyanosis is present. Midline sternal incision is clean, dry and approximated. No drainage or redness is present. Gauze dressing is clean, dry and intact. Bilateral lower extremity EVH sites are clean, dry and approximated. No drainage or redness is present. Right lower extremity remains with small erythematous area ulceration measuring. Dressing is clean, dry and intact. Right antecubital PICC line in place and functioning. Dressing clean, dry and intact. - Neurologic Neurologic: Present: CNII-XII intact - Musculoskeletal Musculoskeletal: Present: gait normal, generalized weakness, strength equal bilaterally - Psychiatric Psychiatric: Present: A&O x's 3, appropriate affect, intact judgment & insight - Allied health notes Allied health notes reviewed: nursing - Labs CBC & Chem 7: 12/20/18 06:19 12/20/18 06:19 Labs: Abnormal Lab Results - Last 24 Hours (Table) 12/19/18 12/19/18 12/19/18 Range/Units 12:02 16:50 20:21 RBC (4.30-5.90) m/uL Hgb (13.0-17.5) gm/dL Hct (39.0-53.0) % RDW (11.5-15.5) % Sodium (137-145) mmol/L BUN (9-20) mg/dL Creatinine (0.66-1.25) mg/dL Glucose (74-99) mg/dL POC Glucose (mg/dL) 217 H 133 H 209 H (75-99) mg/dL Calcium (8.4-10.2) mg/dL 12/20/18 12/20/18 12/20/18 Range/Units 03:04 06:19 06:19 RBC 2.65 L (4.30-5.90) m/uL Hgb 7.5 L (13.0-17.5) gm/dL Hct 23.5 L (39.0-53.0) % RDW 18.4 H (11.5-15.5) % Sodium 128 L (137-145) mmol/L BUN 48 H (9-20) mg/dL Creatinine 1.53 H (0.66-1.25) mg/dL Glucose 128 H (74-99) mg/dL POC Glucose (mg/dL) 162 H (75-99) mg/dL Calcium 7.8 L (8.4-10.2) mg/dL 12/20/18 Range/Units 06:54 RBC (4.30-5.90) m/uL Hgb (13.0-17.5) gm/dL Hct (39.0-53.0) % RDW (11.5-15.5) % Sodium (137-145) mmol/L BUN (9-20) mg/dL Creatinine (0.66-1.25) mg/dL Glucose (74-99) mg/dL POC Glucose (mg/dL) 161 H (75-99) mg/dL Calcium (8.4-10.2) mg/dL - Imaging and Cardiology Chest x-ray: report reviewed, image reviewed Assessment and Plan Assessment: 1. Severe triple-vessel coronary artery disease, non-STEMI, status post CABG 4 2. Acute on chronic systolic and diastolic heart failure with an ejection fraction 40-45%, compensated 3. Moderate left ventricular dysfunction with mild to moderate mitral valve regurgitation 4. Right-sided pleural effusion status post thoracentesis with removal of 900 mL transudate of fluid 5. Leukocytosis 6. Acute on chronic renal failure 7. History of coronary artery disease with previous stents to the LAD in 2004, evidence of remote lateral wall myocardial infarction 8. Recent diagnosis of atrial flutter status post cardioversion on Eliquis for chronic for anticoagulation 9. Hypertension 10. Hyperlipidemia 11. Uncontrolled diabetes mellitus with hemoglobin A1c 7.8% 12. 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 Peripheral artery disease 14. Chronic venous stasis ulcers to his right lower extremity 15. Prostate disorder, chronic Flomax use 16. Postoperative acute blood loss anemia, status post transfusion 1 unit packed red blood cells 17. Postoperative bradycardia, possibly medication induced 18. Hyperkalemia, resolved 19. Postoperative urinary retention, requiring placement of Torres catheter. Plan: 1. Continue low-dose aspirin, statin, hydralazine and beta alfred. Will increase beta alfred as tolerated. 2. Continue to hold Amiodarone secondary to bradycardic episode after initiation. No anticoagulation yet until epicardial pacemaker wires. 3. Bronchodilators per pulmonology management. 4. Lasix 40 mg IV 1 now. Start Lasix 40 mg by mouth daily on 12/21/2018. Continue Flomax. Continue Torres catheter for urine retention, leave Torres catheter in place until okay with urology to remove catheter. 5. Encourage use of his incentive spirometry 10 times every hour while awake. 6. Increase activity as tolerated. PT/OT/cardiac rehab following. 7. Will monitor daily labs and x-rays. Electrolyte replacement per protocol. 8. Pain control with current medication regimen. No narcotics. 9. Insulin management per primary care service. 10. GI/DVT prophylaxis with Protonix and heparin, SCDs. 11. Venous stasis ulcer wound care management recommendations per Dr. Eldridge. 12. Start Eliquis 5 mg by mouth daily for atrial fibrillation anticoagulation, discontinue subcu heparin and Plavix. 13. Anticipate discharge to inpatient rehab or subacute rehab today. 14. Discontinue right before meals PICC line prior to discharge to rehab today. 15. More recommendations to follow based on patient's clinical course. Time with Patient: Greater than 30
[2018-12-20 09:54] VITALS: RESP 16; TEMP 97.7
--- NOTE | 2018-12-20 11:41 | P.PN ---
Subjective Patient is seen in follow-up for acute kidney injury. Renal function is stable. He is maintained on IV Lasix daily. He is a Torres catheter for urinary retention. He is nonoliguric. Denies chest pain or shortness of breath. No vomiting or diarrhea. He does admit to drinking quite a bit of water. Sodium level 128 today. Vital signs are stable. General: The patient appeared well nourished and normally developed. HEENT: Head exam is unremarkable. Neck is without jugular venous distension. LUNGS: Lungs are clear to auscultation and percussion. Breath sounds decreased. HEART: Rate and Rhythm are regular. First and second heart sounds normal. No murmurs, rubs or gallops. ABDOMEN: Abdominal exam reveals normal bowel sounds. Non-tender and non- distended. No evidence of peritonitis. EXTREMITITES: No clubbing, cyanosis, or edema. Objective - Vital Signs Vital signs: Vital Signs Temp 97.7 F 12/20/18 08:00 Pulse 90 12/20/18 08:00 Resp 16 12/20/18 08:00 BP 107/59 12/20/18 08:00 Pulse Ox 97 12/20/18 08:00 Intake & Output 12/19/18 12/20/18 12/20/18 18:59 06:59 18:59 Intake Total 240 400 Output Total 1825 1400 200 Balance -1585 -1400 200 Weight 87.9 kg Intake: Oral 240 400 Output: Drainage 25 Left Calf 25 Urine 1800 1400 200 Uretheral (Torres) 600 800 Other: Voiding Method Indwelling Catheter Indwelling Catheter # Voids 0 0 # Bowel Movements 1 ABP, PAP, CO, CI - Last Documented Arterial Blood Pressure 140/54 Pulmonary Artery Pressure 49/20 Cardiac Output 4.2 Cardiac Index 2.3 - Labs CBC & Chem 7: 12/20/18 06:19 12/20/18 06:19 Labs: Abnormal Lab Results - Last 24 Hours (Table) 12/19/18 12/19/18 12/19/18 Range/Units 12:02 16:50 20:21 RBC (4.30-5.90) m/uL Hgb (13.0-17.5) gm/dL Hct (39.0-53.0) % RDW (11.5-15.5) % Sodium (137-145) mmol/L BUN (9-20) mg/dL Creatinine (0.66-1.25) mg/dL Glucose (74-99) mg/dL POC Glucose (mg/dL) 217 H 133 H 209 H (75-99) mg/dL Calcium (8.4-10.2) mg/dL 12/20/18 12/20/18 12/20/18 Range/Units 03:04 06:19 06:19 RBC 2.65 L (4.30-5.90) m/uL Hgb 7.5 L (13.0-17.5) gm/dL Hct 23.5 L (39.0-53.0) % RDW 18.4 H (11.5-15.5) % Sodium 128 L (137-145) mmol/L BUN 48 H (9-20) mg/dL Creatinine 1.53 H (0.66-1.25) mg/dL Glucose 128 H (74-99) mg/dL POC Glucose (mg/dL) 162 H (75-99) mg/dL Calcium 7.8 L (8.4-10.2) mg/dL 12/20/18 Range/Units 06:54 RBC (4.30-5.90) m/uL Hgb (13.0-17.5) gm/dL Hct (39.0-53.0) % RDW (11.5-15.5) % Sodium (137-145) mmol/L BUN (9-20) mg/dL Creatinine (0.66-1.25) mg/dL Glucose (74-99) mg/dL POC Glucose (mg/dL) 161 H (75-99) mg/dL Calcium (8.4-10.2) mg/dL Assessment and Plan Plan: Assessment: 1. Acute kidney injury secondary to ATN. Renal function stable. Creatinine 1.53 today. 2. Urinary retention. Currently is a Torres catheter. 3. Coronary artery disease status post CABG. 4. Volume overload maintained on IV Lasix 40 mg daily. 5. Hypervolemic hyponatremia. Also drinking quite a bit of water. Plan: Maintain Lasix 40 mg daily. Encourage oral intake, particularly protein. Add 1200 mL fluid restriction. If no improvement in his sodium level tomorrow, I will give him a dose of Samsca.
[2018-12-20 11:45] VITALS: BP 90/52
[2018-12-20 11:50] VITALS: PULSE 85
[2018-12-20 11:53] LABS: Glucose,Whole Blood 188 mg/dL (75-99)
--- NOTE | 2018-12-20 12:10 | P.DS ---
Providers Date of admission: 11/30/18 14:19 Expected date of discharge: 12/20/18 Attending physician: Camilla Rivero Consults: 11/30/18 13:20 Consult Physician Stat Consulting Provider: Sebastien Chahal Consult Reason/Comments: SD Do you want consulting provider notified?: Already Contacted 11/30/18 14:19 Consult Physician Stat Consulting Provider: Collin Jacob Consult Reason/Comments: icu patient Do you want consulting provider notified?: Already Contacted 12/04/18 15:33 Consult Physician Routine Consulting Provider: Bony Eldridge Consult Reason/Comments: lower extremity wounds Do you want consulting provider notified?: Yes 12/05/18 09:47 Consult Physician Routine Consulting Provider: Camilla Rivero Consult Reason/Comments: cabg Do you want consulting provider notified?: Already Contacted 12/07/18 14:48 Consult to Anesthesia Routine Consulting Provider: Anesthesia,Services Consult Reason/Comments: Cardiac Surgery Pre-Op 12/08/18 16:46 Consult Physician Routine Consulting Provider: Simeon Beck Consult Reason/Comments: medical management Do you want consulting provider notified?: Already Contacted 12/12/18 09:13 Consult Physician Stat Consulting Provider: Dayan Strange Consult Reason/Comments: picc line placement, [id number] Do you want consulting provider notified?: Yes 12/12/18 13:44 Consult Physician Routine Consulting Provider: Elvin Meier Consult Reason/Comments: inpatient rehab Do you want consulting provider notified?: Yes 12/15/18 08:09 Consult Physician Routine Consulting Provider: Sekou Salazar Consult Reason/Comments: retention Do you want consulting provider notified?: Yes Primary care physician: [facility] Hospital Course: FINAL DIAGNOSIS: 1. Severe triple-vessel coronary artery disease, non-STEMI, status post quadruple coronary artery bypass grafting surgery 2. Acute on chronic systolic and diastolic heart failure with an ejection fraction 40-45%, compensated 3. Moderate left ventricular dysfunction with mild to moderate mitral valve regurgitation 4. Right-sided pleural effusion status post thoracentesis with removal of 900 mL transudate of fluid 5. Leukocytosis 6. Acute on chronic renal failure 7. History of coronary artery disease with previous stents to the LAD in 2004, evidence of remote lateral wall myocardial infarction 8. Recent preoperative diagnosis of persistent paroxysmal atrial flutter status post cardioversion on Eliquis for chronic for anticoagulation 9. Hypertension 10. Hyperlipidemia 11. Uncontrolled diabetes mellitus with hemoglobin A1c 7.8% 12. 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 Peripheral artery disease 14. Chronic venous stasis ulcers to his right lower extremity 15. Prostate disorder, chronic Flomax use 16. Postoperative acute blood loss anemia, status post transfusion 1 unit packed red blood cells 17. Postoperative bradycardia, possibly medication induced 18. Hyperkalemia, resolved 19. Postoperative urinary retention, requiring placement of Torres catheter. 20. Postoperative atrial flutter, an expected outcome due to his history of preoperative atrial flutter. PRINCIPAL PROCEDURE: 1. Selective coronary arteriography performed by Dr. Epps. 2. Urgent quadruple coronary artery bypass grafting using the left internal mammary artery to the left anterior descending coronary artery, a reverse greater saphenous vein graft from the aorta to the first diagonal coronary artery, a reverse greater saphenous vein graft from the aorta to the first obtuse marginal coronary artery, a reverse greater saphenous vein graft from the aorta to the distal posterior lateral branch of the circumflex coronary artery which is a dominant artery. 3. Bilateral pulmonary vein isolation using the radiofrequency bipolar clamp from the Atricure. 4. Intraoperative exclusion of the left atrial appendage using a 40 mm Atriclip. 5. Intraoperative transesophageal echocardiogram and epi-aortic scanning. 6. Intraoperative graft flow measurements using the Lumicell system. HISTORY OF PRESENT ILLNESS: This is a 78-year-old gentleman who is followed by Saida Roman physician lead recreation assistant at the [facility] clinic in [facility]. His past medical history significant for a recent diagnosis of atrial flutter status post cardioversion, history of coronary artery disease with multiple stent placem ents, history of myocardial infarction, diabetes mellitus type 2, hyperlipidemia, hypertension, acute on chronic systolic and diastolic heart failure with an ejection fraction 40-45%, prostate disorder, severe COPD, peripheral arterial disease, chronic venous stasis ulcers to his right lower extremity, acute on chronic renal failure and osteoarthritis. Recently, the patient has had complaints of progressive shortness of breath, inability to lay flat and increased swelling to his bilateral lower extremities. Subsequently, he presented to [facility] emergency department where he underwent a chest x-ray which demonstrated bilateral infiltrates and a right- sided pleural effusion. Due to the findings of a right-sided pleural effusion and a ultrasound of his chest was completed which demonstrated a right pleural effusion pocket measuring 10.6 cm. Following the ultrasound findings a right- sided thoracentesis was completed with 900 mL of yellow fluid drained by pulmonary medicine. His initial lab work showed a WBC count 11.9, hemoglobin 15.1, BUN 29, creatinine 1.51, glucose 471, and an elevated troponin of 13.800. For further evaluation a 2-D echocardiogram was completed which demonstrated an overall left ventricular systolic function to be mild to moderately impaired with an ejection fraction between 40 and 45%, moderate concentric left ventricular hypertrophy, mild mitral valve regurgitation, mild tricuspid valve regurgitation and mild pulmonary hypertension. He was seen by Dr. Epps from cardiology associates who recommended a heart catheterization be completed. The patient heart catheterization results demonstrated a 60-70% stenosis to his proximal left anterior descending coronary artery, a 70-80% stenosis to his first diagonal coronary artery, the stent to his mid left anterior descending coronary artery to be patent, multiple lesions involving the distal left anterior descending coronary artery in the range of 80-90%, a 99% stenosis to his ostial circumflex coronary artery and a 95% stenosis involving his proximal right coronary artery. Subsequently, due to his presenting symptoms, elevated troponins and cardiac catheterization results a consult was placed to Dr. Camilla Rivero from cardiothoracic surgery for further evaluation and myocardial revascularization recommendations. The findings of the heart catheterization were discussed with the patient, risks and benefits including the STS risk score were reviewed with the patient by Dr. Rivero and the patient wished to proceed with urgent myocardial vascularization surgery. HOSPITAL COURSE: The patient was admitted to the hospital and after obtaining consent was taken to the operating room where Dr. Camilla Rivero performed an urgent coronary artery bypass grafting surgery using the left internal mammary artery to the left anterior ascending coronary artery, a reverse greater saphenous vein graft from the aorta to the first diagonal coronary artery, a reverse greater saphenous vein graft from the aorta to the first obtuse marginal coronary artery, a reverse greater saphenous vein graft from the aorta to the distal posterior lateral branch of the circumflex coronary artery which is a dominant artery. He also underwent bilateral pulmonary vein isolation using radiofrequency bipolar clamp from the Atricure, intraoperative exclusion of the left atrial appendage using a 40 mm Atriclip, intraoperative transesophageal echocardiogram, epi-aortic scanning and intraoperative graft flow measurement using the Lumicell system. Upon completion of the surgery the patient was transferred to the cardiovascular intensive care unit where she was recovered, monitored hemodynamically and where he progressed to cardiac rehabilitation phase 1. He was extubated within 24 hours after surgery, all lines, tubes and supportive drips were discontinued when appropriate and he was transferred to 3 S Cardiac stepdown unit for further monitoring and rehabilitation. His oxygen was titrated down, he continued to work with physical, occupational therapy and cardiac rehab, he was tolerating an oral diet, his pain was well controlled and he was ready to be discharged to [facility] inpatient rehab on postop day #12. He has received written and verbal instructions regarding his medications, activity restrictions, signs and symptoms requiring physician notification and his follow-up appointments. COMPLICATIONS: His postoperative recovery was complicated by some urine retention which was treated accordingly. CONSULTATIONS: 1. Dr. Epps for cardiology management. 2. Dr. Beck for medical management. 3. Dr. Dobbs for pulmonary and ventilator management. 4. Dr. Eldridge for wound care management. 5. Dr. Strange for nephrology management. 6. Dr. Meier for rehab management. DISCHARGE INSTRUCTIONS: 1. No driving for 4 weeks, or until physician gives their ok. 2. The patient should sleep in their own bed, no medical bed needed. 3. Stairs are not an issue. If the bedroom is upstairs, it is advised that the patient go up at night and down in the morning for the first week. Go slowly, using handrail and take 1 step at a time. 4. DAV hose are to be worn for 30 days or until physician discontinues. 5. Heart hugger is to be worn 100% of the time until physician discontinues.(except when showering) 6. No lifting, pushing, or pulling more than 10 pounds for 12 weeks. The physician will advise of any restriction changes. 7. The patient is expected to continue the prescribed walking program. 8. Continue pain control per as needed orders. 9. Continue with incentive spirometry and splinting/heart hugger until otherwise directed by the physician. 10. Must shower daily using liquid antibacterial soap and a separate white washcloth for each individual incision. 11. Routine sternal incision care, no ointments, lotions or powders on the incisions. 12. Please notify surgeon/nurse practitioner for temperature greater than 101F or purulent drainage from incisions 13. Prescriptions for first 30 days given per cardiac surgery service. After 30 days, all prescription refills obtained through cardiology/primary care physician. 14. A red arm and has been placed on this patient it should be worn for 30 days post surgery and will be removed by the cardiothoracic surgeons. If an ER visit is necessary, please make sure the number on the red arm band is called. 15. Physical therapy and occupational therapy to evaluate and treat. 16. Wound care per Dr. Eldridge recommendations to his bilateral lower extremities: plaque-like areas the topical triamcinolone will be applied. The open ulceration hydrogel dressing is applied. This can be applied twice a day and then rolled gauze and Gianni wrap should be applied from toes to knee to lower extremity edema. Elevation of the limbs at rest will be helpful. after discharge from inpatient rehab Dr. Eldridge would b to follow the patient in the wound healing center at [facility]. HOME HEALTH SERVICES TO PROVIDE: RN SKILLED HOME CARE SERVICES FOR POST-OP SURGICAL PATIENTS WITH THE FOLLOWING: Coronary Artery Bypass Surgery (CABG), Mitral Valve Replacement/Repair ( MVR), Aortic Valve Replacement/Repair (AVR) RN TO CONTINUE EDUCATION FROM ``ROAD TO A HEALTH HEART PATIENT EDUCATION MANUAL" (GIVEN TO PATIENT IN THE HOSPITAL) MEDICATION RECONCILIATION WITH EDUCATION NEEDED ON FIRST HOME VISIT EMPHASIZE IMPORTANCE OF WEARING BREAST SUPPORT/HEART HUGGER ENCOURAGE USE OF INCENTIVE SPIROMETER 10 X EVERY HOUR WHILE AWAKE ENCOURAGE UTILIZATION OF LOWER EXTREMITY COMPRESSION STOCKINGS/DAV HOSE and ELEVATE LEGS ABOVE LEVEL OF HEART WHILE AT REST. ENCOURAGE AMBULATION 3-5x/day INCREASING TOLERATES, WHILE AVOID EXTREMES IN TEMPERATURE FREQUENCY: RN TO OPEN THE PATIENT WITHIN 24 HOURS OF DISCHARGE FROM THE HOSPITAL WITH TELEHEALTH INSTALLED AT [facility] [place], RN TO VISIT 2-3 X A WEEK FOR 4 WEEKS ESTABLISHED BY PATIENT NEEDS. REMOVAL OF SUTURES: NURSING SERVICES TO REMOVE SUTURES TWO WEEKS POST SURGICAL DATE [ default ]. If any questions regarding suture removal please call the office at [phone]. LABORATORY: CBC, CMP TO BE DRAWN ON THE THIRD DAY HOME, [default] (RAN STAT) FAX RESULTS TO [phone]. TELEHEALTH PARAMETERS: WEIGHT: NOTIFY MD OF WEIGHT GAIN OF 2 LBS IN 24 HOURS OR 5 LBS IN ONE WEEK HR: NOTIFY MD OF HR <55 BPM OR HR>100 BPM BP: NOTIFY MD IF BP <90/55 OR BP>140/100 O2 SAT: NOTIFY MD IF PO2<93% ON ROOM AIR SEND TELEHEALTH REPORT TO [facility] SURGEON THE FIRST WEEK OF CARE AND THEN BI-WEEKLY. PLEASE ADDITIONALLY COMMUNICATE ANY ABNORMALS AND NEW FINDINGS TO THE SURGEONS OFFICE. The patient has been discharge with a Torres catheter in place due to urinary retention. He has been followed by Dr. Brand from urology here at [facility]. Please keep Torres catheter in for 1-[address] Brand from urology to discuss removal of Torres catheter timing follow-up care regarding voiding trials. Please consult Dr. Stoddard's group for medical management at [facility] inpatient rehab. Please consult Dr. Epps for cardiology management while at [facility] inpatient rehab. Please consult Dr. Strange for nephrology management while at [facility] inpatient rehab. Please consult Dr. Eldridge from infectious disease for management of wound care. Patient Condition at Discharge: Critical Plan - Discharge Summary Discharge Rx Participant: Yes New Discharge Prescriptions: New hydrALAZINE HCL [Apresoline] 25 mg PO Q8HR tab Aspirin 81 mg PO DAILY chew Bisacodyl [Dulcolax] 10 mg RECTAL DAILY PRN supp PRN Reason: Constipation Ipratropium-Albuterol Nebulize [Duoneb 0.5 mg-3 mg/3 ml Soln] 3 ml INHALATION RT-QID ampul.neb Ipratropium-Albuterol Nebulize [Duoneb 0.5 mg-3 mg/3 ml Soln] 3 ml INHALATION RT-Q2H PRN ampul.neb PRN Reason: Shortness Of Breath Or Wheezing Apixaban [Eliquis] 5 mg PO BID tab Tamsulosin [Flomax] 0.4 mg PO BID cap.er.24h Ferrous Sulfate [Iron (65 MG Elemental)] 325 mg PO DAILY tab Triamcinolone 0.1% Ointment [Kenalog 0.1% Ointment] 1 applic TOPICAL BID applic Furosemide [Lasix] 40 mg PO DAILY tab Atorvastatin [Lipitor] 40 mg PO DAILY tab Metoprolol Tartrate [Lopressor] 25 mg PO BID tab Magnesium Hydroxide [Milk of Magnesia Concentrate] 2,400 mg PO BID PRN ml PRN Reason: Constipation INSULIN ASPART (NovoLOG) [NovoLOG (formulary)] 2 unit SQ AC-TID vial INSULIN ASPART (NovoLOG) [NovoLOG (formulary)] 0 unit SQ ACHS vial Pantoprazole [Protonix] 40 mg PO AC-BRKFST tablet.dr Roberson-Docusate Sodium [Senokot-S] 1 each PO HS tab Acetaminophen Tab [Tylenol] 650 mg PO Q4HR PRN tab PRN Reason: Fever and/ or Pain SCALE 6-10 Acetaminophen Tab [Tylenol] 325 mg PO Q4HR PRN tab PRN Reason: Fever and/ or Pain SCALE 1-5 Ascorbic Acid [Vitamin C] 500 mg PO BID-W/MEALS tab Discontinued Apixaban [Eliquis] 5 mg PO BID glipiZIDE [Glucotrol] 10 mg PO AC-BID Tamsulosin [Flomax] 0.4 mg PO BID Furosemide [Lasix] 40 mg PO DAILY metFORMIN HCL 1,000 mg PO DAILY Spironolactone 12.5 mg PO DAILY Potassium Chloride [K-Tab ER] 10 meq PO BID Metoprolol Tartrate [Lopressor] 50 mg PO BID Insulin NPH Hum/Reg Insulin Hm [Novolin 70-30 Flexpen] 60 unit SQ BID Rosuvastatin Calcium 40 mg PO DAILY amLODIPine [Norvasc] 5 mg PO BID Isosorbide Mononitrate ER [Imdur] 90 mg PO DAILY Discharge Medication List Acetaminophen Tab [Tylenol] 325 mg PO Q4HR PRN tab 12/20/18 [Rx] Acetaminophen Tab [Tylenol] 650 mg PO Q4HR PRN tab 12/20/18 [Rx] Apixaban [Eliquis] 5 mg PO BID tab 12/20/18 [Rx] Ascorbic Acid [Vitamin C] 500 mg PO BID-W/MEALS tab 12/20/18 [Rx] Aspirin 81 mg PO DAILY chew 12/20/18 [Rx] Atorvastatin [Lipitor] 40 mg PO DAILY tab 12/20/18 [Rx] Bisacodyl [Dulcolax] 10 mg RECTAL DAILY PRN supp 12/20/18 [Rx] Ferrous Sulfate [Iron (65 MG Elemental)] 325 mg PO DAILY tab 12/20/18 [Rx] Furosemide [Lasix] 40 mg PO DAILY tab 12/20/18 [Rx] INSULIN ASPART (NovoLOG) [NovoLOG (formulary)] 0 unit SQ ACHS vial 12/20/18 [Rx] INSULIN ASPART (NovoLOG) [NovoLOG (formulary)] 2 unit SQ AC-TID vial 12/20/18 [Rx] Ipratropium-Albuterol Nebulize [Duoneb 0.5 mg-3 mg/3 ml Soln] 3 ml INHALATION R T-Q2H PRN ampul.neb 12/20/18 [Rx] Ipratropium-Albuterol Nebulize [Duoneb 0.5 mg-3 mg/3 ml Soln] 3 ml INHALATION RT-QID ampul.neb 12/20/18 [Rx] Magnesium Hydroxide [Milk of Magnesia Concentrate] 2,400 mg PO BID PRN ml 12/20/18 [Rx] Metoprolol Tartrate [Lopressor] 25 mg PO BID tab 12/20/18 [Rx] Pantoprazole [Protonix] 40 mg PO AC-BRKFST tablet. 12/20/18 [Rx] Sennosides-Docusate Sodium [Senokot-S] 1 each PO HS tab 12/20/18 [Rx] Tamsulosin [Flomax] 0.4 mg PO BID cap.er.24h 12/20/18 [Rx] Triamcinolone 0.1% Ointment [Kenalog 0.1% Ointment] 1 applic TOPICAL BID applic 12/20/18 [Rx] hydrALAZINE HCL [Apresoline] 25 mg PO Q8HR tab 12/20/18 [Rx] Follow up Appointment(s)/Referral(s): Adrián Dobbs MD [STAFF PHYSICIAN] - 2 Weeks (Please make a follow-up appointment with Dr. Dobbs to be seen in the office 1 week post discharge from inpatient rehab.) Dayan Strange MD [STAFF PHYSICIAN] - 1 Week (Please make a follow-up appointment with Dr. Strange to be seen in the office 1 week post discharge from inpatient rehab.) Camilla Rivero MD [STAFF PHYSICIAN] - 01/13/19 10:45 am Scottie Brand MD [STAFF PHYSICIAN] - 2 Weeks Geo Epps MD [STAFF PHYSICIAN] - 2 Weeks (Please make a follow-up appointment with Dr. Miller to be seen in the office 1 week post discharge from inpatient rehab.) Saida Roman, VERNON [REFERRING] - 1 Week (Please make a follow-up appointment with the [facility] clinic to be seen in the office 1 week post discharge from inpatient rehab.) Ambulatory/Diagnostic Orders: Complete Blood Count w/diff [LAB.AMB] Time Frame: 12/23/18, Facility: [facility], Location: [facility] Comprehensive Metabolic Panel [LAB.AMB] Time Frame: 12/23/18, Facility: [facility], Location: [facility] Patient Instructions/Handouts: Sternal Precautions (GEN), Coronary Artery Bypass Graft (DC) Activity/Diet/Wound Care/Special Instructions: Scripts must be faxed to [facility] at discharge while a two week supply is obtained using indigent funds from [employer], contact [employer] for assistance. DISCHARGE INSTRUCTIONS: 1. No driving for 4 weeks, or until physician gives their ok. 2. The patient should sleep in their own bed, no medical bed needed. 3. Stairs are not an issue. If the bedroom is upstairs, it is advised that the patient go up at night and down in the morning for the first week. Go slowly, using handrail and take 1 step at a time. 4. DAV hose are to be worn for 30 days or until physician discontinues. 5. Heart hugger is to be worn 100% of the time until physician discontinues.(except when showering) 6. No lifting, pushing, or pulling more than 10 pounds for 12 weeks. The physician will advise of any restriction changes. 7. The patient is expected to continue the prescribed walking program. 8. Continue pain control per as needed orders. 9. Continue with incentive spirometry and splinting/heart hugger until otherwise directed by the physician. 10. Must shower daily using liquid antibacterial soap and a separate white washcloth for each individual incision. 11. Routine sternal incision care, no ointments, lotions or powders on the incisions. 12. Please notify surgeon/nurse practitioner for temperature greater than 101F or purulent drainage from incisions 13. Prescriptions for first 30 days given per cardiac surgery service. After 30 days, all prescription refills obtained through cardiology/primary care [facility]. 14. A red arm and has been placed on this patient it should be worn for 30 days post surgery and will be removed by the cardiothoracic surgeons. If an ER visit is necessary, please make sure the number on the red arm band is called. 15. Physical therapy and occupational therapy to evaluate and treat. 16. Wound care per Dr. Eldridge recommendations to his bilateral lower extremities: plaque-like areas the topical triamcinolone will be applied. The open ulceration hydrogel dressing is applied. This can be applied twice a day and then rolled gauze and Gianni wrap should be applied from toes to knee to lower extremity edema. Elevation of the limbs at rest will be helpful. after discharge from inpatient rehab Dr. Eldridge would b to follow the patient in the wound healing center at [facility]. REHAB/ NURSING SERVICES TO PROVIDE: RN SKILLED HOME CARE SERVICES FOR POST-OP SURGICAL PATIENTS WITH THE FOLLOWING: Coronary Artery Bypass Surgery (CABG), Mitral Valve Replacement/Repair ( MVR), Aortic Valve Replacement/Repair (AVR) RN TO CONTINUE EDUCATION FROM ``ROAD TO A HEALTH HEART PATIENT EDUCATION MANUAL" (GIVEN TO PATIENT IN THE HOSPITAL) MEDICATION RECONCILIATION WITH EDUCATION NEEDED ON FIRST HOME VISIT EMPHASIZE IMPORTANCE OF WEARING BREAST SUPPORT/HEART HUGGER ENCOURAGE USE OF INCENTIVE SPIROMETER 10 X EVERY HOUR WHILE AWAKE ENCOURAGE UTILIZATION OF LOWER EXTREMITY COMPRESSION STOCKINGS/DAV HOSE and ELEVATE LEGS ABOVE LEVEL OF HEART WHILE AT REST. ENCOURAGE AMBULATION 3-5x/day INCREASING TOLERATES, WHILE AVOID EXTREMES IN TEMPERATURE FREQUENCY: RN TO OPEN THE PATIENT WITHIN 24 HOURS OF DISCHARGE FROM THE HOSPITAL WITH TELEHEALTH INSTALLED AT [facility] [place], RN TO VISIT 2-3 X A WEEK FOR 4 WEEKS ESTABLISHED BY PATIENT NEEDS. LABORATORY: CBC, CMP TO BE DRAWN ON THE THIRD DAY POST DISCHARGE, 12/23/2018 (RAN STAT) FAX RESULTS TO [phone]. ONCE DISCHARGED HOME, HOME HEALTH TO PROVIDE TELEHEALTH PARAMETERS: WEIGHT: NOTIFY MD OF WEIGHT GAIN OF 2 LBS IN 24 HOURS OR 5 LBS IN ONE WEEK HR: NOTIFY MD OF HR <55 BPM OR HR>100 BPM BP: NOTIFY MD IF BP <90/55 OR BP>140/100 O2 SAT: NOTIFY MD IF PO2<93% ON ROOM AIR SEND TELEHEALTH REPORT TO [facility]GE[facility] THE FIRST WEEK OF CARE AND THEN BI-WEEKLY. PLEASE ADDITIONALLY COMMUNICATE ANY ABNORMALS AND NEW FINDINGS TO THE SURGEONS OFFICE. The patient has been discharge with a Torres catheter in place due to urinary retention. He has been followed by Dr. Brand from urology here at [facility]. Please keep Torres catheter in for 1-[address] Brand from urology to discuss removal of Torres catheter timing follow-up care regarding voiding trials. Please consult Dr. Stoddard's group for medical management at [facility] inpatient rehab. Please consult Dr. Epps for cardiology management while at [facility] inpatient rehab. Please consult Dr. Strange for nephrology management while at [facility] inpatient rehab. Please consult Dr. Eldridge from infectious disease for management of wound care. Discharge Disposition: DC/TRNS INTERMEDIATE CARE FAC
--- NOTE | 2018-12-20 13:12 | P.PN ---
Subjective Progress Note Date: 12/20/18 This is a 78-year-old white male with history of paroxysmal atrial flutter status post transesophageal echo and cardioversion in August of 2018. Patient has been following up at the [place] [facility] for his cardiac issues. Although his previous cardioversion was done by few months back. Patient is also known to have history of type 2 diabetes, hypertension, CAD with prior stent placements, and for the last week and a half, the patient has been complaining of shortness of breath and uncomfortable feeling in the chest. The uncomfortable feeling is described as heaviness in the chest. And this one and on for at least a day or so. He shortness of breath has become more progressive over the last week and a half, he was seen in the [place] [facility] and he was sent to the emergency room for further evaluation. Upon presentation to the ER, patient was noted to be short of breath, chest x-ray showed evidence of pulmonary edema with bilateral pleural effusions,his EKG was suggestive of inferior posterior wall IL, and patient was placed on Lasix drip, heparin, admitted to the intensive care unit. Patient did undergo thoracentesis in the intensive care unit. He did rule in for a non-ST elevation myocardial infarction, was taken to the cardiac catheterization lab yesterday and was found to have a critical lesion involving the ostium of the circumflex which seemed to be the culprit vessel, 90-95% stenosis of the ostium and the proximal portion of the RCA which may be chronic. There is also about a 70% stenosis in the proximal LAD and proximal diagonal. The stent in the mid LAD appeared to be patent. Multiple lesions involving the distal LAD, surgical consultation was requested. Patient has been seen in consultation by cardiothoracic surgery and the plan is to proceed with coronary artery bypass grafting surgery on of this week. He was seen and examined this morning, denied any chest pain or difficulty in breathing. Blood pressure 144/70 with a heart rate in the 60s to 70s, 98% on room air. White blood cell count 23.4, hemoglobin 15.2, platelet count 347. Sodium 140, potassium 4.9, BUN 53 and creatinine 1.3. Patient's current medications include aspirin 81 mg daily, Coreg 3.125 mg twice a day, Lasix 40 twice a day, heparin drip, losartan 25 mg daily, Pravachol 20 daily. 12/07/2018 Patient was seen and examined this morning, overall doing well. Breathing is stable, denies any chest discomfort. States he didn't sleep too well through the night last night, a little anxious about his surgery. Blood pressure 146/76 with a heart rate in the 70s, 97% on 2 L of oxygen. White blood cell count 20.4, hemoglobin 14.1, platelet count 304. Sodium 140, potassium 4.8, BUN 43 and creatinine 1.2. 12/19/2018 Patient is status post quadruple coronary artery bypass grafting surgery using left internal mammary artery to the LAD, reverse greater saphenous vein graft from the aorta to the first diagonal artery, reverse greater saphenous vein graft from the aorta to the first obtuse marginal, reverse greater saphenous vein graft from the aorta to the distal posterior lateral branch of the circumflex which is a dominant artery, bilateral pulmonary vein isolation, intraoperative exclusion of the left atrial appendage. Patient was seen and examined this morning, sitting up in his chair at bedside. Breathing is overall stable, he states that he did feel some shortness of breath later in the day yesterday. He is in quite cold, denies any chest discomfort. Reaching about 500 on his incentive spirometry. Patient is having some episodes of atrial flu tter. Pacer wires had been removed, anticoagulation initiation as per cardiac surgery. Blood pressure 108/50, heart rate in the 90s, 99% room air O2 sat. White blood cell count 10.3, hemoglobin 7.7, platelet count 221. Sodium 129, potassium 5.0, BUN 48 and creatinine 1.5. 12/20/2018 Patient was seen and examined this morning, feels well, breathing is stable. Hemodynamically stable. He's anticipating transferred to rehab today. Objective - Vital Signs Vital signs: Vital Signs Temp 97.7 F 12/20/18 11:41 Pulse 85 12/20/18 11:50 Resp 16 12/20/18 11:41 BP 90/52 12/20/18 11:41 Pulse Ox 99 12/20/18 11:41 Intake & Output 12/19/18 12/20/18 12/20/18 18:59 06:59 18:59 Intake Total 240 400 Output Total 1825 1400 1000 Balance -1585 -1400 -600 Weight 87.9 kg Intake: Oral 240 400 Output: Drainage 25 Left Calf 25 Urine 1800 1400 1000 Uretheral (Torres) 600 800 800 Other: Voiding Method Indwelling Catheter Indwelling Catheter Indwelling Catheter # Voids 0 0 # Bowel Movements 1 ABP, PAP, CO, CI - Last Documented Arterial Blood Pressure 140/54 Pulmonary Artery Pressure 49/20 Cardiac Output 4.2 Cardiac Index 2.3 - Exam GENERAL: Well-appearing, well-nourished and in no acute distress. NECK: Supple without JVD or thyromegaly. LUNGS: Bibasilar rales, scattered rhonchi. No wheezes. Respiration equal and unlabored. Diminished bilaterally. HEART: Regular rate and rhythm without murmurs, rubs or gallops. S1 and S2 heard. EXTREMITIES: Normal range of motion, bilateral lower extremity Gianni wrap in place with underlying edema. No clubbing or cyanosis. Peripheral pulses intact. - Labs CBC & Chem 7: 12/20/18 06:19 12/20/18 06:19 Labs: Abnormal Lab Results - Last 24 Hours (Table) 12/19/18 12/19/18 12/20/18 Range/Units 16:50 20:21 03:04 RBC (4.30-5.90) m/uL Hgb (13.0-17.5) gm/dL Hct (39.0-53.0) % RDW (11.5-15.5) % Sodium (137-145) mmol/L BUN (9-20) mg/dL Creatinine (0.66-1.25) mg/dL Glucose (74-99) mg/dL POC Glucose (mg/dL) 133 H 209 H 162 H (75-99) mg/dL Calcium (8.4-10.2) mg/dL 12/20/18 12/20/18 12/20/18 Range/Units 06:19 06:19 06:54 RBC 2.65 L (4.30-5.90) m/uL Hgb 7.5 L (13.0-17.5) gm/dL Hct 23.5 L (39.0-53.0) % RDW 18.4 H (11.5-15.5) % Sodium 128 L (137-145) mmol/L BUN 48 H (9-20) mg/dL Creatinine 1.53 H (0.66-1.25) mg/dL Glucose 128 H (74-99) mg/dL POC Glucose (mg/dL) 161 H (75-99) mg/dL Calcium 7.8 L (8.4-10.2) mg/dL 12/20/18 Range/Units 11:51 RBC (4.30-5.90) m/uL Hgb (13.0-17.5) gm/dL Hct (39.0-53.0) % RDW (11.5-15.5) % Sodium (137-145) mmol/L BUN (9-20) mg/dL Creatinine (0.66-1.25) mg/dL Glucose (74-99) mg/dL POC Glucose (mg/dL) 188 H (75-99) mg/dL Calcium (8.4-10.2) mg/dL Assessment and Plan Plan: Plan: # 1 subacute inferoposterior myocardial infarction, #2 acute congestive heart failure secondary to subacute myocardial infarction, systolic , ischemic cardiomyopathy and impaired LV function with ejection fraction 40-45% #3 multivessel coronary artery disease, status post quadruple coronary artery bypass grafting surgery #4 type 2 diabetes, on insulin patient is normally on glipizide insulin and metformin. #5 hypertension #6 hyperlipidemia #7 history of atrial flutter requiring cardioversion in August of 2018. #8 history of underlying coronary artery disease, and previous PCI. #9 status post right sided thoracentesis Plan We will continue the patient on his current medications. Anticoagulation has been resumed by cardiothoracic surgery and patient is scheduled to be transferred to rehab today. Follow-up appointment will be made in the office in 2 weeks. DNP note has been reviewed, I agree with a documented findings and plan of care. Patient was seen and examined.
[2018-12-20 15:23] VITALS: BMI 31.2
--- NOTE | 2018-12-20 16:09 | P.PN ---
Subjective History of present illness, from records This is a pleasant 78 years old male with past medical history of atrial fibrillation, diabetes mellitus, hyperlipidemia, osteoarthritis, congestive heart failure and ischemic heart disease. Patient presents because of worsening dyspnea over one week duration with no chest pain however he has some cough and yellow phlegm. No palpitation or dizziness, no change in urine or bowel habits. No fever. Patient blood pressure is stable at 146/82, saturating 92% on 4 L, he is afebrile. He has mild leukocytosis of 11.9 K, sodium 136, creatinine 1.5 which is close to baseline, glucose 471. Troponin 13.8, influenza is negative. Chest x-ray: Stable bilateral infiltrates suspicious for pneumonia, possible CHF as per radiologist report. EKG showing normal sinus rhythm at [address] depression in V2 to V6. QTC 510. In the emergency room he got aspirin, Coreg and Lasix once. Patient was started on Lasix drip and heparin drip. He is on losartan metoprolol as well. Subjective 12/19/2018 Patient seen and examined in the selective unit. He has inferior GA on admission his status post CABG, with ejection fraction 40-45%. Patient was lying in bed comfortable not in distress, no chest pain or dyspnea. Patient was still in January who could walk in the hallway today with no problems. The patient still has a Torres catheter for urinary retention. He had regular bowel movement yesterday. Tolerating diet well. Denies dizziness, lightheadedness or syncope. Vital signs are stable. Hemoglobin 7.7 which is stable. No leukocytosis which is resolved. Sodium is on the low side coming down slowly 131, 130 and 129 today. Creatinine is stable at 1.57, compared to 1.4 in the last few days. On discharge patient mostly will go to ECF. 12/20/2018 pt lying in chair comfortable, hemodynamically stable, pt denies chest pain or dyspnea, he eating well and has normal bowel movement, he was able to walk in the hallway today with no problems. hemoglobin is stable at 7.5, sodium is 128, i recommend fluid restriction to 1500 ml per day and keep monitoring for sodium level , however pt is asymptomatic, and billing services manager already recommended 1200 ml fluid restriction . pt is on lasix and eliquis . cxr: small bilateral pleural effusion. Objective - Vital Signs Vital signs: Vital Signs Temp 97.7 F 12/20/18 11:41 Pulse 85 12/20/18 11:50 Resp 16 12/20/18 11:41 BP 90/52 12/20/18 11:41 Pulse Ox 99 12/20/18 11:41 Intake & Output 12/19/18 12/20/18 12/20/18 18:59 06:59 18:59 Intake Total 240 580 Output Total 1825 1400 1400 Balance -1585 -1400 -820 Weight 87.9 kg 87.9 kg Intake: Oral 240 580 Output: Drainage 25 Left Calf 25 Urine 1800 1400 1400 Uretheral (Torres) 600 800 800 Other: Voiding Method Indwelling Catheter Indwelling Catheter Indwelling Catheter # Voids 0 0 # Bowel Movements 1 ABP, PAP, CO, CI - Last Documented Arterial Blood Pressure 140/54 Pulmonary Artery Pressure 49/20 Cardiac Output 4.2 Cardiac Index 2.3 - Exam GENERAL: The patient is alert and oriented x3, not in any acute distress. Well developed, well nourished. HEENT: Pupils are round and equally reacting to light. EOMI. No scleral icterus. No conjunctival pallor. Normocephalic, atraumatic. No pharyngeal erythema. No thyromegaly. CARDIOVASCULAR: S1 and S2 present. No murmurs, rubs, or gallops. PULMONARY: Chest is clear to auscultation, no wheezing or basal crackles. -ABDOMEN: Soft, nontender, nondistended, normoactive bowel sounds. No palpable organomegaly. Torres catheter is in place with clear urine. MUSCULOSKELETAL: No joint swelling or deformity. EXTREMITIES: No cyanosis, clubbing, or pedal edema. NEUROLOGICAL: Gross neurological examination did not reveal any focal deficits. SKIN: No rashes. - Labs CBC & Chem 7: 12/20/18 06:19 12/20/18 06:19 Labs: Abnormal Lab Results - Last 24 Hours (Table) 12/19/18 12/19/18 12/20/18 Range/Units 16:50 20:21 03:04 RBC (4.30-5.90) m/uL Hgb (13.0-17.5) gm/dL Hct (39.0-53.0) % RDW (11.5-15.5) % Sodium (137-145) mmol/L BUN (9-20) mg/dL Creatinine (0.66-1.25) mg/dL Glucose (74-99) mg/dL POC Glucose (mg/dL) 133 H 209 H 162 H (75-99) mg/dL Calcium (8.4-10.2) mg/dL 12/20/18 12/20/18 12/20/18 Range/Units 06:19 06:19 06:54 RBC 2.65 L (4.30-5.90) m/uL Hgb 7.5 L (13.0-17.5) gm/dL Hct 23.5 L (39.0-53.0) % RDW 18.4 H (11.5-15.5) % Sodium 128 L (137-145) mmol/L BUN 48 H (9-20) mg/dL Creatinine 1.53 H (0.66-1.25) mg/dL Glucose 128 H (74-99) mg/dL POC Glucose (mg/dL) 161 H (75-99) mg/dL Calcium 7.8 L (8.4-10.2) mg/dL 12/20/18 Range/Units 11:51 RBC (4.30-5.90) m/uL Hgb (13.0-17.5) gm/dL Hct (39.0-53.0) % RDW (11.5-15.5) % Sodium (137-145) mmol/L BUN (9-20) mg/dL Creatinine (0.66-1.25) mg/dL Glucose (74-99) mg/dL POC Glucose (mg/dL) 188 H (75-99) mg/dL Calcium (8.4-10.2) mg/dL Assessment and Plan Assessment: Non-STEMI on admission. Status post coronary artery bypass grafting of 4 vessel disease acute on chronic systolic congestive heart failure, improved. Ejection fraction 40-45% Hyponatremia, asymptomatic Chronic kidney disease, stage III History of coronary artery disease History of congestive heart failure History of atrial fibrillation Diabetes mellitus Hyperlipidemia Plan: This is a pleasant 78 years old male who presents because of the STEMI and acute CHF, continue with beta blockers and MELIA inhibitor. Cardiology and cardiothoracic surgery teams consults are appreciated. \Continue with Torres catheter for urinary retention. Continue with aspirin and Plavix Labs and medication were reviewed.. Continue same treatment. Continue with symptomatic treatment. Resume home medication. Monitor lytes and vitals. DVT and GI prophylaxis. Further recommendations of the clinical course of the patient DVT prophylaxis: heparin GI Prophylaxis: Ppi Prognosis is guarded
[2018-12-20] MEDS ORDERED: APIXABAN 5 MG TAB PO SCH (21:00)
[2018-12-21] MEDS ORDERED: FUROSEMIDE 40 MG TAB PO SCH (09:00)
--- NOTE | 2018-12-22 10:41 | CDI ---
Documentation Clarification Form Date: 12/22/18 From: Crystal Pino Phone: If questions call Marci Burgess @ [phone], Hours-8:30 am & 5 pm M- F Admit Date: 11/30/2018 2:19:00 PM Patient Name: Neto Brice Visit Number: [id number] Discharge Date: 12/20/2018 3:38:00 PM ATTENTION: The Clinical Documentation Specialists (CDI) and [facility] Coding Staff appreciate your assistance in clarifying documentation. Please respond to the clarification below the line at the bottom and electronically sign. The CDI & [facility] Coding staff will review the response and follow-up if needed. Please note: Queries are made part of the Legal Health Record. If you have any questions, please contact the author of this message via ITS. Dr. Richi Bang Atrial Flutter is documented in the ED Note, H&P, consults, PNs and DS. History/Risk factors: In August 2018 had ANIL and cardioversion, Had CABG this admission Per 12/13 PN "intermittent postoperative atrial flutter, currently maintaining sinus mechanism" On Eliquis In your professional opinion, in order to capture the severity of condition; can you please clarify the type of Atrial Flutter if known? Typical/Type I Atypical/Type II Other, please specify Unable to determine MTDD
--- NOTE | 2018-12-23 10:37 | CDI ---
Documentation Clarification Form Date: 12/23/18 From: Crystal Pino Phone: If questions call Marci Burgess @ [phone], Hours-8:30 am & 5 pm M- F Admit Date: 11/30/2018 2:19:00 PM Patient Name: Neto Brice Visit Number: [id number] Discharge Date: 12/20/2018 3:38:00 PM ATTENTION: The Clinical Documentation Specialists (CDI) and [facility] Coding Staff appreciate your assistance in clarifying documentation. Please respond to the clarification below the line at the bottom and electronically sign. The CDI & [facility] Coding staff will review the response and follow-up if needed. Please note: Queries are made part of the Legal Health Record. If you have any questions, please contact the author of this message via ITS. Dr. Camilla Rivero Conflicting documentation has been found in the medical record: Patient with history of BPH. Status post CABG, developed acute urinary retention,unexpected. Urology was consulted, "The cause of the patient's urinary retention is probably related to several factors.He had been taking Tamsulosin 0.4 mg twice a day prior to admission and so I presume he did have some difficultiy in voiding in the past. He should be continued on the Tamsulosin. The patient appears to have a fecal impaction which by itself could result in the urinary retention and lower abdominal discomfort." History/Risk Factors: BPH Treatment: Urology recommended digita disimpaction and enema to relieve fecal impaction In your opinion, what is the most clinically appropriate diagnosis for this patient? Urinary retention is an unexpected postoperative complication Urinary retention due to fecal impaction Urinary retention due to BPH Other explanation of clinical findings Unable to determine (no explanation for clinical findings) Urinary retention due to BPH MTDD
== END 2018-12-20 15:38 | DRG 233 ==
LOC: EC 11:08 → 2SICU 14:19 → 3SCARD 12-03 18:54 → 2SICU 12-08 06:43 → 3SCARD 12-16 23:20
PROVIDERS: ADMIT Surgery; ATTEND Surgery
PROC: 0W993ZX Drainage of Right Pleural Cavity, Percutaneous Approach, Diagnostic (ICD-10-PCS; 2018-12-01)
PROC: B2111ZZ Fluoroscopy of Multiple Coronary Arteries using Low Osmolar Contrast (ICD-10-PCS; 2018-12-05)
PROC: B34KZZZ Ultrasonography of Bilateral Upper Extremity Arteries (ICD-10-PCS; 2018-12-06)
PROC: B44HZZZ Ultrasonography of Bilateral Lower Extremity Arteries (ICD-10-PCS; 2018-12-06)
PROC: 021209W Bypass Coronary Artery, Three Arteries from Aorta with Autologous Venous Tissue, Open Approach (ICD-10-PCS; 2018-12-08)
PROC: 06BQ4ZZ Excision of Left Saphenous Vein, Percutaneous Endoscopic Approach (ICD-10-PCS; 2018-12-08)
PROC: 4A1305C Monitoring of Arterial Flow, Coronary, Open Approach (ICD-10-PCS; 2018-12-08)
PROC: 30233N0 Transfusion of Autologous Red Blood Cells into Peripheral Vein, Percutaneous Approach (ICD-10-PCS; 2018-12-08)
PROC: 5A1221Z Performance of Cardiac Output, Continuous (ICD-10-PCS; 2018-12-08)
PROC: 02L70CK Occlusion of Left Atrial Appendage with Extraluminal Device, Open Approach (ICD-10-PCS; 2018-12-08)
PROC: B246ZZ4 Ultrasonography of Right and Left Heart, Transesophageal (ICD-10-PCS; 2018-12-08)
PROC: 02100Z9 Bypass Coronary Artery, One Artery from Left Internal Mammary, Open Approach (ICD-10-PCS; principal; 2018-12-08 08:00)
PROC: 025S0ZZ Destruction of Right Pulmonary Vein, Open Approach (ICD-10-PCS; 2018-12-08 08:00)
PROC: 02HV33Z Insertion of Infusion Device into Superior Vena Cava, Percutaneous Approach (ICD-10-PCS; 2018-12-12)
DX: I21.4 Non-ST elevation (NSTEMI) myocardial infarction (principal); I50.43 Acute on chronic combined systolic (congestive) and diastolic (congestive) heart failure; J18.9 Pneumonia, unspecified organism; N17.0 Acute kidney failure with tubular necrosis; J96.01 Acute respiratory failure with hypoxia; I13.0 Hypertensive heart and chronic kidney disease with heart failure and stage 1 through stage 4 chronic kidney disease, or unspecified chronic kidney disease; E87.1 Hypo-osmolality and hyponatremia; D62 Acute posthemorrhagic anemia; J44.0 Chronic obstructive pulmonary disease with (acute) lower respiratory infection; J91.8 Pleural effusion in other conditions classified elsewhere; J98.11 Atelectasis; L97.819 Non-pressure chronic ulcer of other part of right lower leg with unspecified severity; L97.829 Non-pressure chronic ulcer of other part of left lower leg with unspecified severity; N17.9 Acute kidney failure, unspecified; I48.92 Unspecified atrial flutter; E11.649 Type 2 diabetes mellitus with hypoglycemia without coma; E11.22 Type 2 diabetes mellitus with diabetic chronic kidney disease; E11.51 Type 2 diabetes mellitus with diabetic peripheral angiopathy without gangrene; I25.5 Ischemic cardiomyopathy; I95.9 Hypotension, unspecified; E11.65 Type 2 diabetes mellitus with hyperglycemia; E87.5 Hyperkalemia; I27.20 Pulmonary hypertension, unspecified; I83.018 Varicose veins of right lower extremity with ulcer other part of lower leg; I83.028 Varicose veins of left lower extremity with ulcer other part of lower leg; I08.1 Rheumatic disorders of both mitral and tricuspid valves; I48.0 Paroxysmal atrial fibrillation; N18.3 Chronic kidney disease, stage 3 (moderate); I45.10 Unspecified right bundle-branch block; I44.4 Left anterior fascicular block; R00.1 Bradycardia, unspecified; I25.10 Atherosclerotic heart disease of native coronary artery without angina pectoris; T46.2X5A Adverse effect of other antidysrhythmic drugs, initial encounter; I25.2 Old myocardial infarction; S80.829A Blister (nonthermal), unspecified lower leg, initial encounter; K56.41 Fecal impaction; N40.1 Benign prostatic hyperplasia with lower urinary tract symptoms; N39.498 Other specified urinary incontinence; R33.8 Other retention of urine; E78.5 Hyperlipidemia, unspecified; I44.0 Atrioventricular block, first degree; M54.5 Low back pain; M19.90 Unspecified osteoarthritis, unspecified site; E66.9 Obesity, unspecified; Z68.31 Body mass index [BMI] 31.0-31.9, adult; Z79.01 Long term (current) use of anticoagulants; Z79.4 Long term (current) use of insulin; Z79.899 Other long term (current) drug therapy; Z71.3 Dietary counseling and surveillance; Z95.5 Presence of coronary angioplasty implant and graft; Z87.891 Personal history of nicotine dependence; Z98.42 Cataract extraction status, left eye; Z98.41 Cataract extraction status, right eye; Z88.8 Allergy status to other drugs, medicaments and biological substances; Z82.49 Family history of ischemic heart disease and other diseases of the circulatory system; Z83.3 Family history of diabetes mellitus
CPT/HCPCS: 36415; 36573; 71045; 71046; 76604; 80048; 80053; 80061; 80074; 81001; 82330; 82550; 82553; 82805; 82945; 83036; 83605; 83615; 83735; 83880; 83930; 84100; 84132; 84157; 84439; 84443; 84484; 85025; 85027; 85384; 85520; 85610; 85730; 86850; 86891; 86900; 86901; 86920; 87040; 87070; 87086; 87205; 87502; 88108; 88305; 89050; 93005; 93306; 93308; 93454; 93880; 93922; 93930; 93970; 94002; 94003; 94150; 94640; 94760; 96365; 96366; 96368; 96375; 96376; 99291

== ENCOUNTER → 2019-01-13 | Outpatient (CLI) | payer MEDICARE, BC ==
[2019-01-13 20:02] LABS: Potassium 3.9 mmol/L (3.5-5.5)
== END | disposition home or self-care (01) ==
LOC: LABWHC1 12:03
PROVIDERS: ATTEND Internal Medicine Cardiovascular Disease
DX: I50.9 Heart failure, unspecified (principal)
CPT/HCPCS: 36415; 80048; 83880

== ENCOUNTER 2019-01-16 14:14 | Inpatient (IN) | payer BC, MEDICARE, OTHER ==
[2019-01-16] MEDS ORDERED: RX INFO: IV CONTRAST WAS GIVEN 1 EACH MISC MISCELLANE PRN (15:00)
--- NOTE | 2019-01-16 15:24 | XR ---
Left knee HISTORY: Possible infection, pain, unable to bend knee 3 views of the left knee No comparisons Bone mineralization, joint spaces and alignment are maintained. Soft tissue swelling is present. Surg ical clips present in the soft tissues of the proximal leg medially. Vascular calcifications are note d incidentally. No evident joint effusion. IMPRESSION: Soft tissue swelling. Postop changes. Peripheral vascular occlusive disease.
[2019-01-16 16:03] LABS: Anisocytosis Slight; Basophils # (A) 0.1 k/uL (0-0.2); Basophils % (A) 0 %; Eosinophils # (A) 0.1 k/uL (0-0.7); Eosinophils % (A) 1 %; HCT 34.6 % (39.0-53.0); HGB 10.4 gm/dL (13.0-17.5); Hypochromasia Moderate; Lymphocytes # (A) 0.4 k/uL (1.0-4.8); Lymphocytes % (A) 2 %; MCH 25.2 pg (25.0-35.0); MCHC 29.9 g/dL (31.0-37.0); MCV 84.2 fL (80.0-100.0); Monocytes # (A) 1.1 k/uL (0-1.0); Monocytes % (A) 6 %; Neutrophils # (A) 17.2 k/uL (1.3-7.7); Neutrophils % (A) 90 %; Platelet Count 257 k/uL (150-450); RBC 4.11 m/uL (4.30-5.90); RDW 17.2 % (11.5-15.5); WBC 19.1 k/uL (3.8-10.6)
[2019-01-16 16:07] LABS: Albumin 3.2 g/dL (3.5-5.0); Calcium 8.3 mg/dL (8.4-10.2); Potassium 3.6 mmol/L (3.5-5.1); Total Bilirubin 0.7 mg/dL (0.2-1.3)
[2019-01-16] MEDS ORDERED: VANCOMYCIN IV PER PHARMACY 1 EACH MISC MISCELLANE PRN (16:15)
[2019-01-16] MEDS ORDERED: VANCOMYCIN 1,500 MG in SODIUM CHLORIDE 0.9% 250 ML IVPB STA (16:19)
[2019-01-16] MEDS ORDERED: SODIUM CHLORIDE 0.9% 500 ML 500 ML IV ONE (16:24)
--- NOTE | 2019-01-16 16:24 | ED ---
General Adult HPI - General Chief complaint: Extremity Injury, Lower Stated complaint: Knee pain, cannot bend knee Time Seen by Provider: 01/16/19 14:24 Source: patient Mode of arrival: wheelchair Limitations: physical limitation - History of Present Illness Initial comments: 78yo male presenting today for chief complaint of left knee pain. Patient stat es that he had veins harvested from the left lower extremity for a bypass surgery performed 12/06/[address] Rivero. He states that things have been going well s/p surgery however he was told that he had fluid "between the lining of my lung and the chest wall" at his f/u appointment with juan josé, he was scheduled at that time for fluid drainage. Pt denies any chest complaints or SOB. Pt states after at home PT yesterday he noticed left knee pain, she state he noticed a blister of the aspect of the left lower extremity near medial left knee and distal on the lateral aspect both have developed over the past 2 weeks and draining for the past few days. pt state the are very tender to palpation and he denies having these lesions prevously. Pt denies fever, nightsweats. Admits to occasional chills. Pt denies coolness of pallor of the extremity. Remaining ROS (-). - Related Data Home Medications Medication Instructions Recorded Confirmed Apixaban [Eliquis] 5 mg PO DAILY 01/13/19 01/16/19 Insulin Glargine [Lantus] 10 unit SQ HS 01/13/19 01/16/19 Melatonin 3 mg PO HS 01/13/19 01/16/19 Metolazone [Zaroxolyn] 2.5 mg PO DAILY 01/13/19 01/16/19 Rosuvastatin Calcium [Crestor] 40 mg PO HS 01/13/19 01/16/19 Tamsulosin [Flomax] 0.4 mg PO BID 01/13/19 01/16/19 Aspirin EC [Ecotrin Low Dose] 81 mg PO HS 01/16/19 01/16/19 Furosemide [Lasix] 40 mg PO BID 01/16/19 01/16/19 INSULIN LISPRO (humaLOG) [humaLOG] See Protocol SQ AC-TID 01/16/19 01/16/19 hydrALAZINE HCL [Apresoline] 25 mg PO BID 01/16/19 01/16/19 Previous Rx's Medication Instructions Recorded Ascorbic Acid [Vitamin C] 500 mg PO BID-W/MEALS tab 12/20/18 Ferrous Sulfate [Iron (65 MG 325 mg PO DAILY tab 12/20/18 Elemental)] Metoprolol Tartrate [Lopressor] 25 mg PO BID tab 12/20/18 Allergies Allergy/AdvReac Type Severity Reaction Status Date / Time No Known Allergies Allergy Verified 01/16/19 14:36 Review of Systems ROS Statement: Those systems with pertinent positive or pertinent negative responses have been documented in the HPI. ROS Other: All systems not noted in ROS Statement are negative. Past Medical History Past Medical History: Atrial Flutter, Coronary Artery Disease (CAD), Heart Failure, Diabetes Mellitus, GERD/Reflux, Hyperlipidemia, Hypertension, Myocardial Infarction (CO), Osteoarthritis (OA), Prostate Disorder Additional Past Medical History / Comment(s): edema in legs with open blisters now being treated by homecare RN, subacute CO requiring CABG surgery Last Myocardial Infarction Date:: 12/08/18 History of Any Multi-Drug Resistant Organisms: None Reported Past Surgical History: Appendectomy, Coronary Bypass/CABG, Heart Catheterization With Stent Additional Past Surgical History / Comment(s): cataract removal, 4 vessel CABG surgery 12/08/18 Past Anesthesia/Blood Transfusion Reactions: No Reported Reaction Date of Last Stent Placement:: unsure Past Psychological History: No Psychological Hx Reported Smoking Status: Never smoker Past Alcohol Use History: None Reported Past Drug Use History: None Reported - Past Family History Mother Family Medical History: Myocardial Infarction (CO) Additional Family Medical History / Comment(s): age 64 General Exam - General Exam Comments Initial Comments: General: The patient is awake and alert, in no distress. Eye: +3 mm pupils are equal, round and reactive to light, extra-ocular movements are intact. No nystagmus. There is normal conjunctiva bilaterally. No signs of icterus. Ears, nose, mouth and throat: There are moist mucous membranes and no oral lesions. Neck: The neck is supple, there is no tenderness or JVD. Cardiovascular: There is a regular rate and rhythm. No murmur, rub or gallop is appreciated. Respiratory: Respirations are non-labored, breath sounds are equal. No wheezes, stridor. Some noted rhonchi. Gastrointestinal: Soft, non-distended, non-tender abdomen without masses or organomegaly noted. There is no rebound or guarding present. No CVA tenderness. Bowel sounds are unremarkable. Musculoskeletal: Normal ROM, no tenderness. Strength 5/5. Sensation intact. DP pulses equal bilaterally +1 faint b/l. (Pulses heard on doppler equal b/l) Neurological: A&O x 3. CN II-XII intact, There are no obvious motor or sensory deficits. Coordination appears grossly intact. Speech is normal. Skin: Skin is warm and dry and no rashes or lesions are noted. b/l LE edema. Ulceration of the lateral aspect of left lower leg and the medial proximal area just distal to knee. No erythema of knee joint of tenderess at the knee joint. Pt is very tender at site of ulcerations. The lower leg ulceration is draning purulent drainage. Warm to palpation Psychiatric: Cooperative, appropriate mood & affect, normal judgment. Limitations: physical limitation Course Vital Signs 01/16/19 01/16/19 14:14 16:44 Temperature 98.4 F 99.2 F Pulse Rate 81 82 Respiratory 20 18 Rate Blood Pressure 108/62 112/57 O2 Sat by Pulse 96 97 Oximetry Medical Decision Making - Medical Decision Making 68-year-old male presented for left knee pain. On examination his ulceration with active draining he's denies taking present previously concerning for infection or surrounding erythema. Very tender to palpation. There is no diffuse knee swelling erythema of the knee or diffuse pain to palpation of the knee. Did not feel this is a septic joint. Patient significant leukocytosis consistent with infection. Patient states he had outpatient follow up with his cardiothoracic surgeon 2 days prior to plan on draining fluid from the lungs. Patient denies any chest pain or shortness of breath. Initially on physical examination he had faint DP pulses. This was equal bilaterally. Considered CTA, however audible strong pulses to doppler. Will hold CTA. Pt has <3 second capillary refill. Pt lactic WNL. Does not appear toxic or septic at this time. Pt started on IV antibiotics, ceftriaxone and vancomycin. Infectious disease Dr. Eldridge who is familar with patient on consult I placed Dr. Rivero on consult for pleural effusions. Pt will be placed on telemetry and admitted to the hosptial for further evaluation. Pt VS within acceptable limits. He is agreeable with admission. Dr. Crawley spoke with admitting provider Dr. Stoddard. No further instruction at this time. - Lab Data Result diagrams: 01/16/19 15:35 01/16/19 15:35 Lab Results 01/16/19 01/16/19 01/16/19 Range/Units 15:35 15:35 15:35 WBC 19.1 H (3.8-10.6) k/uL RBC 4.11 L (4.30-5.90) m/uL Hgb 10.4 L (13.0-17.5) gm/dL Hct 34.6 L (39.0-53.0) % MCV 84.2 (80.0-100.0) fL MCH 25.2 (25.0-35.0) pg MCHC 29.9 L (31.0-37.0) g/dL RDW 17.2 H (11.5-15.5) % Plt Count 257 (150-450) k/uL Neutrophils % 90 % Lymphocytes % 2 % Monocytes % 6 % Eosinophils % 1 % Basophils % 0 % Neutrophils # 17.2 H (1.3-7.7) k/uL Lymphocytes # 0.4 L (1.0-4.8) k/uL Monocytes # 1.1 H (0-1.0) k/uL Eosinophils # 0.1 (0-0.7) k/uL Basophils # 0.1 (0-0.2) k/uL Hypochromasia Moderate Anisocytosis Slight ESR (0-15) mm/hr Sodium 137 (137-145) mmol/L Potassium 3.6 (3.5-5.1) mmol/L Chloride 92 L (98-107) mmol/L Carbon Dioxide 36 H (22-30) mmol/L Anion Gap 9 mmol/L BUN 54 H (9-20) mg/dL Creatinine 1.63 H (0.66-1.25) mg/dL Est GFR (CKD-EPI)AfAm 47 (>60 ml/min/1.73 sqM) Est GFR (CKD-EPI)NonAf 40 (>60 ml/min/1.73 sqM) Glucose 110 H (74-99) mg/dL Plasma Lactic Acid Gutierrez 1.3 (0.7-2.0) mmol/L Calcium 8.3 L (8.4-10.2) mg/dL Total Bilirubin 0.7 (0.2-1.3) mg/dL AST 27 (17-59) U/L ALT 26 (21-72) U/L Alkaline Phosphatase 229 H (38-126) U/L C-Reactive Protein 86.0 H (<10.0) mg/L Total Protein 6.0 L (6.3-8.2) g/dL Albumin 3.2 L (3.5-5.0) g/dL Disposition Clinical Impression: Cellulitis, Leg ulcer, left, Left knee pain, Leukocytosis, Pleural effusion, El evated serum creatinine, Elevated BUN Disposition: ADMITTED IP TO THIS [facility] Condition: Stable Is patient prescribed a controlled substance at d/c from ED?: No Referrals: [facility],Clinic [Primary Care Provider] - 1-2 days Time of Disposition: 16:24 Decision to Admit Reason: Admit from EC Decision Date: 01/16/19 Decision Time: 16:24
[2019-01-16] MEDS ORDERED: MORPHINE SULFATE 4 MG/ML SYRINGE IV PRN (16:27)
[2019-01-16] MEDS ORDERED: NALOXONE 0.4 MG/ML 1 ML VIAL IV PRN (16:27)
[2019-01-16] MEDS: SODIUM CHLORIDE 0.9% 1,000 ML IV SCH (16:42)
[2019-01-16] MEDS: ASCORBIC ACID 500 MG TAB PO SCH (19:05)
[2019-01-16] MEDS: FUROSEMIDE 40 MG TAB PO SCH (19:05)
[2019-01-16] MEDS: MELATONIN 3 MG TABLET PO SCH (20:00)
[2019-01-16] MEDS: ASPIRIN 81 MG PO SCH (20:00)
[2019-01-16] MEDS: METOPROLOL TARTRATE 25 MG TAB PO SCH (20:00)
[2019-01-16] MEDS: hydrALAZINE HCL 25 MG TAB PO SCH (20:00)
[2019-01-16] MEDS: ATORVASTATIN 80 MG TAB PO SCH (20:00)
[2019-01-16] MEDS: TAMSULOSIN 0.4 MG CAP.ER.24H PO SCH (20:00)
[2019-01-16] MEDS ORDERED: HYDROmorphone 0.5 MG/0.5 ML SYRINGE IVP PRN (20:58)
[2019-01-16] MEDS ORDERED: TEMAZEPAM 15 MG CAP PO PRN (20:58)
[2019-01-16] MEDS ORDERED: ACETAMINOPHEN TAB 500 MG TAB PO PRN (20:58)
[2019-01-16] MEDS ORDERED: ALPRAZolam 0.25 MG TAB PO PRN (20:58)
[2019-01-16 21:08] LABS: Appearance,Urine Cloudy (Clear); Bilirubin,Urine Negative (Negative); Blood,Urine Moderate (Negative); Color,Urine Yellow; Glucose,Urine (UA) Negative (Negative); Ketones,Urine Negative (Negative); Leukocyte Esterase,Urine Large (Negative); Mucus,Urine Rare /hpf; Nitrite,Urine Negative (Negative); PH, Urine 6.5 (5.0-8.0); Protein,Urine 2+ (Negative); RBC,Urine 1 /hpf (0-5); Specific Gravity,Urine 1.017 (1.001-1.035); Squamous Epithelial Cell,Urine 1 /hpf (0-4); WBC,Urine 3 /hpf (0-5)
[2019-01-16 21:39] LABS: Glucose,Whole Blood 145 mg/dL (75-99)
[2019-01-16] MEDS: INSULIN DETEMIR (LEVEMIR) 100 UNIT/ML SYR SQ SCH (22:11)
[2019-01-16] MEDS: INSULIN ASPART (NovoLOG) 100 UNIT/ML VIAL SQ SCH (22:12)
--- NOTE | 2019-01-16 22:34 | HP ---
HISTORY AND PHYSICAL CHIEF COMPLAINT: Pain and swelling of both legs, left more than right. HISTORY OF PRESENT ILLNESS: This 78-year-old gentleman with a past medical history of multiple medical problems, including atrial flutter, history of CAD, CHF, diabetes mellitus, type 2, GERD, hypertension, hyperlipidemia, history of myocardial infarction, history of DJD, history of prostate disorder, being followed through the [facility] and Dr. Baker in the outpatient setting. He underwent CABG in December. The patient has a history of multiple ulcers bilaterally for the last 15 months, according to him. Ultrasound of the right leg is worsening. There is some erythema and red lesions at the site of the venous harvest. The patient is complaining of severe pain in the leg and the knee and the patient came to [facility]. Admitted for further evaluation and treatment. There is no history of any fever, rigor or chills. No history of headache, loss of consciousness, seizures. PAST MEDICAL HISTORY: 1. CAD, CABG. 2. CHF. 3. Diabetes mellitus, type 2. 4. Hypertension. 5. Hyperlipidemia. 6. History of myocardial infarction. 7. DJD. HOME MEDICATIONS: 1. Apresoline 25 mg p.o. b.i.d. 2. Flomax 0.4 b.i.d. 3. Crestor 40 mg at bedtime. 4. Lopressor 25 mg b.i.d. 5. Zaroxolyn 2.5 mg daily. 6. Melatonin 3 mg at bedtime. 7. Lantus 10 units subcutaneously at bedtime. 8. Humalog before meals t.i.d. 9. Lasix 40 mg p.o. b.i.d. 10.Iron 325 mg p.o. daily. 11.Ecotrin 81 mg. 12.Vitamin C 500 mg b.i.d. with meals. 13.Eliquis 5 mg p.o. daily. ALLERGIES: NONE. FAMILY HISTORY: History of myocardial infarction in the family. SOCIAL HISTORY: Previous history of smoking. No current smoking or alcohol intake. REVIEW OF SYSTEMS: ENT: Diminished hearing. Diminished vision. CARDIOVASCULAR SYSTEM: As mentioned earlier. RESPIRATORY SYSTEM: As mentioned earlier. GI: No nausea, vomiting. : No dysuria or retention. NERVOUS SYSTEM: No numbness, weakness. ALLERGY/IMMUNOLOGY: No asthma, hayfever. MUSCULOSKELETAL: As mentioned earlier. HEMATOLOGY/ONCOLOGY: No history of anemia. ENDOCRINE: Diabetes mellitus. CONSTITUTIONAL: As mentioned earlier. DERMATOLOGY: As mentioned earlier. RHEUMATOLOGY: Negative. PSYCHIATRY: As mentioned earlier. PHYSICAL EXAMINATION: Patient alert and oriented x3. Pulse 95, blood pressure 109/56, respiration 18, temperature 97.4, pulse ox 92% on room air, HEENT: Conjunctivae normal. Oral mucosa moist. NECK: No jugular venous distention. No carotid bruit. No lymph node enlargement. CARDIOVASCULAR SYSTEM: S1, S2 muffled. RESPIRATORY SYSTEM: Breath sounds diminished at the bases. Bilateral scattered rhonchi and crackles. ABDOMEN: Soft, obese, nontender. No mass palpable. LEGS: Bilateral leg edema. Significant ulceration of the left leg with some exudations, cellulitis, redness and significant pain also present. Minimal erythema on the right leg. Multiple areas of healing ulcerations on the medial part of the leg. Left knee is painful. Ecchymotic lesions on the both thighs in the areas of the venous harvesting. NERVOUS SYSTEM: Higher functions as mentioned earlier. Moves all 4 limbs. No focal motor or sensory deficit. LYMPHATICS: No lymph node palpable in neck, axillae or groin. SKIN: As mentioned earlier. JOINTS: No active deforming arthropathy. Otherwise as mentioned earlier except left knee. LABS: WBC 19.1, hemoglobin 10.4. Sodium 137, potassium 3.6, creatinine 1.63. ASSESSMENT: 1. Bilateral leg ulcers with cellulitis with severe pain with failure of outpatient treatment. 2. Increased white count. 3. Anemia, normocytic, of undetermined etiology. 4. Left knee pain for evaluation. 5. Increased creatinine with chronic kidney disease, stage III. 6. History of recent coronary artery disease, coronary artery bypass grafting. 7. History of congestive heart failure. 8. History of atrial flutter. 9. Diabetes mellitus, type 2. 10.Gastroesophageal reflux disease. 11.Hypertension. 12.Hyperlipidemia. 13.History of myocardial infarction. 14.History of degenerative joint disease. 15.History of prostate disorder. 16.History of coronary artery disease, coronary artery bypass grafting, stent. 17.Remote history of nicotine dependence. 18.FULL CODE. RECOMMENDATIONS AND DISCUSSION: In this 78-year-old gentleman who presented with multiple complex medical issues, we will continue to monitor. Will initiate broad-spectrum IV antibiotics, obtain cultures of blood and skin. Will initiate Zosyn and vancomycin. Will also consult Cardiothoracic Surgery, Cardiology and Infectious Disease. Other than that, home medications will be continued. I would also recommend a serum uric acid. Will continue with Eliquis at this time. Otherwise, I would also recommend DVT prophylaxis, local treatment. I would also recommend pain medications. I would recommend intravenous narcotics and p.o. medications also to complete pain relief. Accu-Cheks before meals and at bedtime will be monitored and hemoglobin A1c also will be checked. Overall prognosis is guarded because of multiple complex medical issues. Further recommendations to follow. Discussed with the patient. A copy of this dictation is being forwarded to Dr. Baker, who is the primary physician. SHEILAL / IJN: [id number] /
[2019-01-16] MEDS: PIPERACILLIN-TAZOBACTAM 3.375 GM in SODIUM CHLORIDE 0.9% 100 ML IVPB SCH (23:30)
[2019-01-17] MEDS: SODIUM CHLORIDE 0.9% 1,000 ML IV SCH ×2 (05:45→17:10)
[2019-01-17] MEDS ORDERED: VANCOMYCIN 1,500 MG in SODIUM CHLORIDE 0.9% 250 ML IVPB SCH (06:00)
[2019-01-17] MEDS: INSULIN ASPART (NovoLOG) 100 UNIT/ML VIAL SQ SCH ×4 (06:34→21:15)
[2019-01-17] MEDS: PANTOPRAZOLE 40 MG TABLET PO SCH (06:41)
[2019-01-17] MEDS: ASCORBIC ACID 500 MG TAB PO SCH ×2 (06:41→16:39)
[2019-01-17 06:49] LABS: Glucose,Whole Blood 63 mg/dL (75-99)
[2019-01-17 06:49] LABS: Glucose,Whole Blood 83 mg/dL (75-99)
[2019-01-17 06:49] LABS: Glucose,Whole Blood 52 mg/dL (75-99)
[2019-01-17 07:05] LABS: Calcium 7.7 mg/dL (8.4-10.2); Potassium 3.1 mmol/L (3.5-5.1)
[2019-01-17 07:17] LABS: Anisocytosis Slight; Basophils # (A) 0.1 k/uL (0-0.2); Basophils % (A) 0 %; Eosinophils # (A) 0.1 k/uL (0-0.7); Eosinophils % (A) 1 %; HCT 30.6 % (39.0-53.0); HGB 9.5 gm/dL (13.0-17.5); Hypochromasia Marked; Lymphocytes # (A) 0.6 k/uL (1.0-4.8); Lymphocytes % (A) 4 %; MCH 26.4 pg (25.0-35.0); MCHC 31.1 g/dL (31.0-37.0); MCV 84.8 fL (80.0-100.0); Mean Platelet Volume 7.1; Monocytes # (A) 1.1 k/uL (0-1.0); Monocytes % (A) 7 %; Neutrophils # (A) 13.5 k/uL (1.3-7.7); Neutrophils % (A) 87 %; Platelet Count 210 k/uL (150-450); Poikilocytosis Slight; RDW 16.5 % (11.5-15.5); WBC 15.6 k/uL (3.8-10.6)
[2019-01-17] MEDS ORDERED: APIXABAN 5 MG TAB PO SCH ×2 (09:00→21:00)
[2019-01-17 09:03] LABS: Glucose,Whole Blood 120 mg/dL (75-99)
[2019-01-17] MEDS: FERROUS SULFATE 325 MG TAB PO SCH (09:03)
[2019-01-17] MEDS: METOLAZONE 2.5 MG TAB PO SCH (09:03)
[2019-01-17] MEDS: MULTIVITAMINS, THERA 1 EACH TAB PO SCH (09:03)
[2019-01-17] MEDS: FUROSEMIDE 40 MG TAB PO SCH ×2 (09:03→16:39)
[2019-01-17] MEDS: TAMSULOSIN 0.4 MG CAP.ER.24H PO SCH ×2 (09:03→19:55)
[2019-01-17] MEDS: PIPERACILLIN-TAZOBACTAM 3.375 GM in SODIUM CHLORIDE 0.9% 100 ML IVPB SCH ×2 (09:03→16:39)
[2019-01-17] MEDS: METOPROLOL TARTRATE 25 MG TAB PO SCH ×2 (09:03→19:56)
[2019-01-17] MEDS: hydrALAZINE HCL 25 MG TAB PO SCH (09:13)
[2019-01-17] MEDS ORDERED: FUROSEMIDE 10 MG/ML 4 ML VIAL IV STA (09:46)
--- NOTE | 2019-01-17 09:47 | P.CRDCN ---
History of Present Illness Consult date: 01/17/19 Requesting physician: Elvira Stoddard Consult reason: shortness of breath Chief complaint: Bilateral knee pain, shortness of breath History of present illness: 'radha is a pleasant 78-year-old gentleman who has a known history of coronary artery disease, most recently presented to the hospital with non-ST elevation WA in November of this year, at which time he underwent coronary artery bypass grafting surgery with a GONZALEZ to the LAD, reverse saphenous vein graft from the aorta to the first diagonal, first saphenous vein graft from the aorta to the first obtuse marginal, reverse saphenous vein graft from the aorta to the distal PDA, prior to that patient did have LAD stenting in 2004, history of hype rtension, diabetes, hyperlipidemia, paroxysmal atrial fibrillation, and known bilateral ulcerations of his legs. He presents to the hospital on this occasion with symptoms of significant bilateral knee pain, left knee greater than the right. Patient also has been quite short of breath at home, he states that he went to the pulmonary office recently and was found to have fluid in his lungs, he was scheduled as an outpatient to undergo thoracentesis. During his hospitalization for his surgery he did have a thoracentesis performed on 2 separate occasions. Chest x-ray performed this admission revealed continued small bilateral pleural effusions with adjacent atelectasis and/or consolidation. X-ray of the knee on the left side showed soft tissue swelling with peripheral vascular occlusive disease. Blood pressure 104/56, low-grade temperature of 99.6, heart rate in the 90s. 97% oxygenation on room air. White blood cell count 15.6, hemoglobin 9.5, platelet count 210. Sodium 137, pota ssium 3.1, BUN 53 and creatinine 1.5. At the time of my examination this morning, patient is resting comfortably in bed, he does feel somewhat short of breath, and is having significant discomfort below the left knee. Past Medical History Past Medical History: Atrial Flutter, Coronary Artery Disease (CAD), Heart Failure, Diabetes Mellitus, GERD/Reflux, Hyperlipidemia, Hypertension, Myocardial Infarction (WA), Osteoarthritis (OA), Prostate Disorder Additional Past Medical History / Comment(s): edema in legs with open blisters now being treated by homecare RN, subacute WA requiring CABG surgery Last Myocardial Infarction Date:: 12/08/18 History of Any Multi-Drug Resistant Organisms: None Reported Past Surgical History: Appendectomy, Coronary Bypass/CABG, Heart Catheterization With Stent Additional Past Surgical History / Comment(s): cataract removal, 4 vessel CABG surgery 12/08/18 Past Anesthesia/Blood Transfusion Reactions: No Reported Reaction Date of Last Stent Placement:: unsure Past Psychological History: No Psychological Hx Reported Additional Psychological History / Comment(s): Single. No children. No pets. Remote tobacco use. No international travel since his experience. Worked on [employer] Smoking Status: Former smoker Past Alcohol Use History: None Reported Additional Past Alcohol Use History / Comment(s): quit drinking 1974 Past Drug Use History: None Reported - Past Family History Mother Family Medical History: Myocardial Infarction (WA) Additional Family Medical History / Comment(s): age 64 Medications and Allergies Home Medications Medication Instructions Recorded Confirmed Type Ascorbic Acid [Vitamin C] 500 mg PO BID-W/MEALS tab 12/20/18 01/16/19 Rx Ferrous Sulfate [Iron (65 MG 325 mg PO DAILY tab 12/20/18 01/16/19 Rx Elemental)] Metoprolol Tartrate [Lopressor] 25 mg PO BID tab 12/20/18 01/16/19 Rx Apixaban [Eliquis] 5 mg PO DAILY 01/13/19 01/16/19 History Insulin Glargine [Lantus] 10 unit SQ HS 01/13/19 01/16/19 History Melatonin 3 mg PO HS 01/13/19 01/16/19 History Metolazone [Zaroxolyn] 2.5 mg PO DAILY 01/13/19 01/16/19 History Rosuvastatin Calcium [Crestor] 40 mg PO HS 01/13/19 01/16/19 History Tamsulosin [Flomax] 0.4 mg PO BID 01/13/19 01/16/19 History Aspirin EC [Ecotrin Low Dose] 81 mg PO HS 01/16/19 01/16/19 History Furosemide [Lasix] 40 mg PO BID 01/16/19 01/16/19 History INSULIN LISPRO (humaLOG) [humaLOG] See Protocol SQ AC-TID 01/16/19 01/16/19 History hydrALAZINE HCL [Apresoline] 25 mg PO BID 01/16/19 01/16/19 History Allergies Allergy/AdvReac Type Severity Reaction Status Date / Time No Known Allergies Allergy Verified 01/16/19 14:36 Physical Exam Vitals: Vital Signs Temp Pulse Pulse Resp BP BP Pulse Ox 01/17/19 08:00 97.3 F L 18 101/54 97 01/17/19 04:00 98.8 F 17 104/56 96 01/16/19 23:26 18 01/16/19 23:25 99.6 F 18 110/60 98 01/16/19 20:00 100.1 F H 17 117/57 97 01/16/19 17:06 97.4 F L 95 18 109/56 92 L 01/16/19 16:44 99.2 F 82 18 112/57 97 01/16/19 14:14 98.4 F 81 20 108/62 96 Intake and Output 01/16/19 01/17/19 01/17/19 22:59 06:59 14:59 Intake Total 1725 Output Total 375 300 Balance -375 1425 Intake: Intake, IV Titration 925 Amount Piperacillin-Tazobactam 3 100 .375 gm In Sodium Chloride 0.9% 100 ml @ 25 mls/hr IVPB Q8HR [facility] Rx# :[id number] Sodium Chloride 0.9% 1, 825 000 ml @ 75 mls/hr IV . [id number] [facility] Rx#:[id number] Oral 800 Output: Urine 375 300 Other: Voiding Method Incontinent Incontinent Incontinent Weight 56 kg PHYSICAL EXAMINATION: GENERAL: 78-year-old gentleman in no acute distress at the time of my examination HEENT: Head is atraumatic, normocephalic. Pupils equal, round. Sclera anicteric. Conjunctiva are clear. Mucous membranes of the mouth are moist. Neck is supple. There is no elevated jugular venous pressure. No carotid bruit is heard. HEART EXAMINATION: Heart S1-S2 irregularly irregular systolic murmur is heard CHEST EXAMINATION: Lungs reveal scattered coarse rhonchi throughout with diminished air entry to the bases bilaterally, midline chest incision clean and dry with mild redness noted ABDOMEN: Soft, nontender. Bowel sounds are heard. No organomegaly noted. EXTREMITIES: 1+ peripheral pulses to the lower extremities with bilateral edema, significant ulceration noted on the inner right leg just below the knee, on the left leg patient also has a significant ulceration noted on the medial part of the left leg below the knee, significant erythema present as well as significant tenderness. Ecchymosis noted to the bilateral lower extremities. NEUROLOGIC patient is awake, alert and oriented 3 . . Results 01/17/19 05:57 01/17/19 05:57 Cardiac Enzymes 01/16/19 Range/Units 15:35 AST 27 (17-59) U/L CBC 01/16/19 01/17/19 Range/Units 15:35 05:57 WBC 19.1 H 15.6 H (3.8-10.6) k/uL RBC 4.11 L 3.60 L (4.30-5.90) m/uL Hgb 10.4 L 9.5 L (13.0-17.5) gm/dL Hct 34.6 L 30.6 L (39.0-53.0) % Plt Count 257 210 (150-450) k/uL Comprehensive Metabolic Panel 01/16/19 01/17/19 Range/Units 15:35 05:57 Sodium 137 137 (137-145) mmol/L Potassium 3.6 3.1 L (3.5-5.1) mmol/L Chloride 92 L 96 L (98-107) mmol/L Carbon Dioxide 36 H 36 H (22-30) mmol/L BUN 54 H 53 H (9-20) mg/dL Creatinine 1.63 H 1.54 H (0.66-1.25) mg/dL Glucose 110 H 39 L* (74-99) mg/dL Calcium 8.3 L 7.7 L (8.4-10.2) mg/dL AST 27 (17-59) U/L ALT 26 (21-72) U/L Alkaline Phosphatase 229 H (38-126) U/L Total Protein 6.0 L (6.3-8.2) g/dL Albumin 3.2 L (3.5-5.0) g/dL Current Medications Generic Name Dose Route Start Last Admin Trade Name Freq PRN Reason Stop Dose Admin Acetaminophen 500 mg 01/16/19 20:58 Tylenol Tab PO Q6HR PRN Fever and/ or Pain Hydrocodone Bitart/Acetaminophen 1 each 01/16/19 20:58 [place] 5-325 PO Q6HR PRN Pain Alprazolam 0.25 mg 01/16/19 20:58 Xanax PO TID PRN Anxiety Apixaban 5 mg 01/17/19 09:00 01/17/19 09:03 Eliquis PO 5 mg DAILY [facility] Administration Ascorbic Acid 500 mg 01/16/19 17:30 01/17/19 06:41 Vitamin C PO 500 mg BID-W/MEALS [facility] Administration Aspirin 81 mg 01/16/19 21:00 01/16/19 20:00 Aspirin PO 81 mg HS [facility] Administration Atorvastatin Calcium 80 mg 01/16/19 21:00 01/16/19 20:00 Lipitor PO 80 mg HS [facility] Administration Ferrous Sulfate 325 mg 01/17/19 09:00 01/17/19 09:03 Feosol PO 325 mg DAILY [facility] Administration Furosemide 40 mg 01/16/19 18:00 01/17/19 09:03 Lasix PO 40 mg 0900,1800 [facility] Administration Hydralazine HCl 25 mg 01/16/19 21:00 01/17/19 09:13 Apresoline PO Not Given BID [facility] Hydromorphone HCl 0.5 mg 01/16/19 20:58 Dilaudid IVP Q3HR PRN Severe Pain Sodium Chloride 1,000 mls @ 75 mls/hr 01/16/19 16:30 01/17/19 05:45 Saline 0.9% IV 75 mls/hr .[id number] [facility] Administration Vancomycin HCl 1,500 mg/ 250 mls @ 125 mls/hr 01/17/19 06:00 01/17/19 05:44 Sodium Chloride IVPB 125 mls/hr Q24H [facility] Administration Piperacillin Sod/Tazobactam 100 mls @ 25 mls/hr 01/17/19 00:00 01/17/19 09:03 Sod 3.375 gm/ Sodium Chloride IVPB 25 mls/hr Q8HR [facility] Administration Insulin Aspart 0 unit 01/16/19 21:00 01/17/19 06:34 Novolog SQ Not Given ACHS [facility] Protocol Insulin Detemir 10 unit 01/16/19 21:00 01/16/19 22:11 Levemir SQ 10 unit HS [facility] Administration Melatonin 3 mg 01/16/19 21:00 01/16/19 20:00 Melatonin PO 3 mg HS [facility] Administration Metolazone 2.5 mg 01/17/19 09:00 01/17/19 09:03 Zaroxolyn PO 2.5 mg DAILY [facility] Administration Metoprolol Tartrate 25 mg 01/16/19 21:00 01/17/19 09:03 Lopressor PO 25 mg BID [facility] Administration Miscellaneous Information 1 each 01/16/19 15:00 01/16/19 15:53 Rx Info: Iv Contrast Was Given MISCELLANE 01/18/19 15:01 1 each DAILY PRN Administration Per Protocol Multivitamins 1 each 01/17/19 12:00 01/17/19 09:03 Theragran PO 1 each DAILY@1200 [facility] Administration Naloxone HCl 0.2 mg 01/16/19 16:27 Narcan IV Q2M PRN Opioid Reversal Pantoprazole Sodium 40 mg 01/17/19 07:30 01/17/19 06:41 Protonix PO 40 mg AC-[id number] [facility] Administration Tamsulosin HCl 0.4 mg 01/16/19 21:00 01/17/19 09:03 Flomax PO 0.4 mg BID [facility] Administration Temazepam 15 mg 01/16/19 20:58 Restoril PO HS PRN Insomnia Intake and Output 01/16/19 01/17/19 01/17/19 22:59 06:59 14:59 Intake Total 1725 Output Total 375 300 Balance -375 1425 Intake: Intake, IV Titration 925 Amount Piperacillin-Tazobactam 3 100 .375 gm In Sodium Chloride 0.9% 100 ml @ 25 mls/hr IVPB Q8HR [facility] Rx# :[id number] Sodium Chloride 0.9% 1, 825 000 ml @ 75 mls/hr IV . [id number] [facility] Rx#:[id number] Oral 800 Output: Urine 375 300 Other: Voiding Method Incontinent Incontinent Incontinent Weight 56 kg 01/17/19 05:57 01/17/19 05:57 EKG Interpretations (text) No EKG was performed, patient is currently in atrial flutter, typical Assessment and Plan Plan: Assessment and plan #1 bilateral knee discomfort with possible cellulitis and evidence of significant ulcerations bilaterally, elevated white blood cell count #2 bilateral pleural effusion #3 recent coronary artery bypass grafting surgery in November #4 atrial flutter with controlled ventricular response, typical #5 diabetes #6 hypertension #7 hyperlipidemia #8 remote history of nicotine dependence #9 mild renal insufficiency #10 hypokalemia Plan Patient is currently on Eliquis 5 mg daily, he needs to be on 5 mg by mouth twice a day, but we will verify with pulmonary rather not the patient will undergo thoracentesis, and this may need to be held. Initiate baby aspirin. On IV antibiotics. We will continue the patient on his Lipitor, given a dose of IV Lasix, he is currently on by mouth Lasix as well as Zaroxolyn, continue metoprolol, obtain an EKG. Further recommendations to follow. DNP note has been reviewed, I agree with a documented findings and plan of care. Patient was seen and examined.
--- NOTE | 2019-01-17 11:07 | ECHOF ---
Referral Reason:chf MEASUREMENTS -------- HEIGHT: 165.1 cm WEIGHT: 55.8 kg BP: 104/56 RAP: 5.00 mmHg RVSP: 35.45 mmHg FINDINGS -------- Undetermined rhythm. Limited Study for CHF. Overall left ventricular systolic function is mildly impaired with, an EF between 45 - 50 %. Inferi or basal Hypokinesis There is no pericardial effusion. Pleural Effusion with Fibrin. CONCLUSIONS -------- 1. Undetermined rhythm. 2. Limited Study for CHF. 3. Inferior basal Hypokinesis 4. There is no pericardial effusion. 5. Pleural Effusion with Fibrin. PBX WIRE CHIEF: Kamilah Crespo RDCS
--- NOTE | 2019-01-17 11:29 | US ---
EXAMINATION TYPE: US chest DATE OF EXAM: 01/17/2019 COMPARISON: NONE CLINICAL HISTORY: Possible thoracentesis. TECHNIQUE: Targeted ultrasound of the posterior lower EXAM MEASUREMENTS: Right Pleural Effusion pocket size: 7.4 cm Right skin surface to fluid distance: 3.3 cm Left Pleural Effusion pocket size: 4.7 cm Left skin surface to fluid distance: 3.2 cm Right side marked for possible thoracentesis outside the dept. Left side marked for possible thoracentesis outside the dept. Pulmonologists are able to review the images in the patient?s EMR. IMPRESSIONS: Bilateral pleural effusions, right greater than left (small to moderate on right and sma ll left).
[2019-01-17 11:36] LABS: Glucose,Whole Blood 84 mg/dL (75-99)
--- NOTE | 2019-01-17 13:27 | P.CONS ---
History of Present Illness - Reason for Consult Consult date: 01/17/19 - Chief Complaint Increasing weakness - History of Present Illness 78-year-old gentleman with a known history of coronary disease who in November 2018 suffered a non-ST elevated myocardial infarction. Eversion at the present time reveal evidence of severe coronary disease and constantly was taken to the operating room and a her artery bypass graft procedure was performed including GONZALEZ to LAD as well as saphenous grafts from aorta to the first obtuse marginal as well as the distal PDA. The patient postoperatively had significant difficulties with effusion and underwent thoracentesis on 2 events. Eventually improved and was sent to rehabilitation. As related after his discharge from rehab went to the home setting but there was difficulties with the transition. The family relates that the patient is a and receives his medications from that source. Apparently time of his discharge he was at least 4 days before they're able to get most of his medications according his insulin for use at home. The patient then started to show some improvement. He had physical therapy session. The following day he became miserable with severe pain especially into his left leg. It escalated the point that he could not walk and constantly his family brought him to the emergency center and he has been admitted. He has a known history of significant lower extremity ulcerations, with these as well as a new onset pain in the left leg the consult was requested. The patient is denying fevers or chills. Continues to have significant pain to the left leg and has difficulty trying to bear weight because it is so painful. Review of Systems HEENT:Denies headache or acute visual change. Denies sinus or mouth discomforts. Denies neck stiffness or pain. Denies significant oral cavity pain. Denies difficulty on swallowing. Lungs: Shortness of breath at admission has improved he has not having cough production or hemoptysis Cardiovascular: Shortness of breath is improved, chest pain is improved, is not with significant syncope or dyspnea on exertion at this time Gastrointestinal:Denies nausea, vomiting, diarrhea, constipation, hematemesis, melena, hematochezia. No no significant change of bowel habit noticed. Musculoskeletal: Complains of significant pain and swelling to the left leg especially at the thigh. Making it difficult to ambulate. 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 Neuro: No headache or focal weakness Psychiatric:Denies anxiety or depression. Lives with his brother and [id number] Endocrine: Denies significant fatigue, denies significant weight loss or weight gain. Past Medical History Past Medical History: Atrial Flutter, Coronary Artery Disease (CAD), Heart Failure, Diabetes Mellitus, GERD/Reflux, Hyperlipidemia, Hypertension, Myocardia l Infarction (MA), Osteoarthritis (OA), Prostate Disorder Additional Past Medical History / Comment(s): edema in legs with open blisters now being treated by homecare RN, subacute MA requiring CABG surgery Last Myocardial Infarction Date:: 12/08/18 History of Any Multi-Drug Resistant Organisms: None Reported Past Surgical History: Appendectomy, Coronary Bypass/CABG, Heart Catheterization With Stent Additional Past Surgical History / Comment(s): cataract removal, 4 vessel CABG surgery 12/08/18 Past Anesthesia/Blood Transfusion Reactions: No Reported Reaction Date of Last Stent Placement:: unsure Past Psychological History: No Psychological Hx Reported Additional Psychological History / Comment(s): Single. No children. No pets. Remote tobacco use. No international travel since his experience. Worked on [employer] Smoking Status: Former smoker Past Alcohol Use History: None Reported Additional Past Alcohol Use History / Comment(s): quit drinking 1974 Past Drug Use History: None Reported - Past Family History Mother Family Medical History: Myocardial Infarction (MA) Additional Family Medical History / Comment(s): age 64 Medications and Allergies Home Medications and Allergies Comment(s): Current Medications Acetaminophen (Tylenol Tab) 500 mg PO Q6HR PRN PRN Reason: Fever and/ or Pain Hydrocodone Bitart/Acetaminophen ([place] 5-325) 1 each PO Q6HR PRN PRN Reason: Pain Alprazolam (Xanax) 0.25 mg PO TID PRN PRN Reason: Anxiety Apixaban (Eliquis) 5 mg PO BID [facility] Ascorbic Acid (Vitamin C) 500 mg PO BID-W/MEALS [facility] Last Admin: 01/17/19 06:41 Dose: 500 mg Documented by: Aspirin (Aspirin) 81 mg PO [facility] Last Admin: 01/16/19 20:00 Dose: 81 mg Documented by: Atorvastatin Calcium (Lipitor) 80 mg PO [facility] Last Admin: 01/16/19 20:00 Dose: 80 mg Documented by: Ferrous Sulfate (Feosol) 325 mg PO DAILY [facility] Last Admin: 01/17/19 09:03 Dose: 325 mg Documented by: Furosemide (Lasix) 40 mg PO 0900,1800 [facility] Last Admin: 01/17/19 09:03 Dose: 40 mg Documented by: Hydralazine HCl (Apresoline) 25 mg PO BID [facility] Last Admin: 01/17/19 09:13 Dose: Not Given Documented by: Hydromorphone HCl (Dilaudid) 0.5 mg IVP Q3HR PRN PRN Reason: Severe Pain Sodium Chloride (Saline 0.9%) 1,000 mls @ 75 mls/hr IV .[id number] [facility] Last Admin: 01/17/19 05:45 Dose: 75 mls/hr Documented by: Vancomycin HCl 1,500 mg/ (Sodium Chloride) 250 mls @ 125 mls/hr IVPB Q24H [facility] Last Admin: 01/17/19 05:44 Dose: 125 mls/hr Documented by: Piperacillin Sod/Tazobactam (Sod 3.375 gm/ Sodium Chloride) 100 mls @ 25 mls/hr IVPB Q8HR [facility] Last Admin: 01/17/19 09:03 Dose: 25 mls/hr Documented by: Insulin Aspart (Novolog) 0 unit SQ [facility]; Protocol Last Admin: 01/17/19 11:36 Dose: Not Given Documented by: Insulin Detemir (Levemir) 10 unit SQ [facility] Last Admin: 01/16/19 22:11 Dose: 10 unit Documented by: Melatonin (Melatonin) 3 mg PO [facility] Last Admin: 01/16/19 20:00 Dose: 3 mg Documented by: Metolazone (Zaroxolyn) 2.5 mg PO DAILY [facility] Last Admin: 01/17/19 09:03 Dose: 2.5 mg Documented by: Metoprolol Tartrate (Lopressor) 25 mg PO BID [facility] Last Admin: 01/17/19 09:03 Dose: 25 mg Documented by: Miscellaneous Information (Rx Info: Iv Contrast Was Given) 1 each MISCELLANE DAILY PRN PRN Reason: Per Protocol Stop: 01/18/19 15:01 Last Admin: 01/16/19 15:53 Dose: 1 each Documented by: Multivitamins (Theragran) 1 each PO DAILY@1200 [facility] Last Admin: 01/17/19 09:03 Dose: 1 each Documented by: Naloxone HCl (Narcan) 0.2 mg IV Q2M PRN PRN Reason: Opioid Reversal Pantoprazole Sodium (Protonix) 40 mg PO AC-BRKFST [facility] Last Admin: 01/17/19 06:41 Dose: 40 mg Documented by: Tamsulosin HCl (Flomax) 0.4 mg PO BID [facility] Last Admin: 01/17/19 09:03 Dose: 0.4 mg Documented by: Temazepam (Restoril) 15 mg PO HS PRN PRN Reason: Insomnia Home Medications Medication Instructions Recorded Confirmed Type Ascorbic Acid [Vitamin C] 500 mg PO BID-W/MEALS tab 12/20/18 01/16/19 Rx Ferrous Sulfate [Iron (65 MG 325 mg PO DAILY tab 12/20/18 01/16/19 Rx Elemental)] Metoprolol Tartrate [Lopressor] 25 mg PO BID tab 12/20/18 01/16/19 Rx Apixaban [Eliquis] 5 mg PO DAILY 01/13/19 01/16/19 History Insulin Glargine [Lantus] 10 unit SQ 01/13/19 01/16/19 History Melatonin 3 mg PO HS 01/13/19 01/16/19 History Metolazone [Zaroxolyn] 2.5 mg PO DAILY 01/13/19 01/16/19 History Rosuvastatin Calcium [Crestor] 40 mg PO HS 01/13/19 01/16/19 History Tamsulosin [Flomax] 0.4 mg PO BID 01/13/19 01/16/19 History Aspirin EC [Ecotrin Low Dose] 81 mg PO HS 01/16/19 01/16/19 History Furosemide [Lasix] 40 mg PO BID 01/16/19 01/16/19 History INSULIN LISPRO (humaLOG) [humaLOG] See Protocol SQ AC-TID 01/16/19 01/16/19 History hydrALAZINE HCL [Apresoline] 25 mg PO BID 01/16/19 01/16/19 History Allergies Allergy/AdvReac Type Severity Reaction Status Date / Time No Known Allergies Allergy Verified 01/16/19 14:36 Physical Exam Vitals: Vital Signs Temp Pulse Pulse Pulse Resp BP BP 01/17/19 11:14 97.8 F 91 18 103/60 01/17/19 08:00 97.3 F L 18 101/54 05/14/19 04:00 98.8 F 17 104/56 01/16/19 23:26 18 01/16/19 23:25 99.6 F 18 110/60 01/16/19 20:00 100.1 F H 17 117/57 01/16/19 17:06 97.4 F L 95 18 109/56 01/16/19 16:44 99.2 F 82 18 112/57 01/16/19 14:14 98.4 F 81 20 108/62 Pulse Ox 01/17/19 11:14 98 01/17/19 08:00 97 01/17/19 04:00 96 01/16/19 23:26 01/16/19 23:25 98 01/16/19 20:00 97 01/16/19 17:06 92 L 01/16/19 16:44 97 01/16/19 14:14 96 Intake and Output 01/16/19 01/17/19 01/17/19 22:59 06:59 14:59 Intake Total 1725 Output Total 375 300 Balance -375 1425 Intake: Intake, IV Titration 925 Amount Piperacillin-Tazobactam 3 100 .375 gm In Sodium Chloride 0.9% 100 ml @ 25 mls/hr IVPB Q8HR [facility] Rx# :[id number] Sodium Chloride 0.9% 1, 825 000 ml @ 75 mls/hr IV . [id number] [facility] Rx#:[id number] Oral 800 Output: Urine 375 300 Other: Voiding Method Incontinent Incontinent Incontinent Weight 56 kg 82.8 kg HEENT: Anicteric conjunctiva are pink and moist nasal mucosa grossly intact without significant lesions, there is no thrush. Neck: The neck is supple without significant lymphadenopathy or thyromegaly. Lungs: Good bilateral air entry without significant crackles or wheezing. There is no significant bronchial sounds. There is no egophony or dullness. Heart: Regular rate and rhythm with an audible S1-S2, no S3 no S4. There is no significant murmur click or rub, PMI was nondisplaced. Abdomen: Positive bowel sounds soft and nontender without palpable masses or organomegaly. There was no guarding or rebound. Extremities: Upper extremities with diffuse small healing ecchymosis. Lower extremities no evidence of the multiple ulcerations. Please see nursing photography. Right lower extremity shows evidence of the 3 ulcerations with the most proximal medial having some slough. The left lateral ulceration is a bit more acute and apparently was a blister that recently open. There is some surrounding erythema at that site. The left thigh medial aspect is extremely tender to touch and had evidence of the healing ecchymosis. Right thigh also has healing ecchymosis from the vein harvest. Neuro: Awake alert oriented to person place and time. There are no acute new gross focal sensory motor deficits. Results CBC & Chem 7: 01/17/19 05:57 01/17/19 05:57 Labs: Abnormal Lab Results - Last 24 Hours (Table) 01/16/19 01/16/19 01/16/19 Range/Units 15:35 15:35 20:30 WBC 19.1 H (3.8-10.6) k/uL RBC 4.11 L (4.30-5.90) m/uL Hgb 10.4 L (13.0-17.5) gm/dL Hct 34.6 L (39.0-53.0) % MCHC 29.9 L (31.0-37.0) g/dL RDW 17.2 H (11.5-15.5) % Neutrophils # 17.2 H (1.3-7.7) k/uL Lymphocytes # 0.4 L (1.0-4.8) k/uL Monocytes # 1.1 H (0-1.0) k/uL Potassium (3.5-5.1) mmol/L Chloride 92 L (98-107) mmol/L Carbon Dioxide 36 H (22-30) mmol/L BUN 54 H (9-20) mg/dL Creatinine 1.63 H (0.66-1.25) mg/dL Glucose 110 H (74-99) mg/dL POC Glucose (mg/dL) (75-99) mg/dL Calcium 8.3 L (8.4-10.2) mg/dL Alkaline Phosphatase 229 H (38-126) U/L C-Reactive Protein 86.0 H (<10.0) mg/L Total Protein 6.0 L (6.3-8.2) g/dL Albumin 3.2 L (3.5-5.0) g/dL Urine Protein 2+ H (Negative) Urine Blood Moderate H (Negative) Ur Leukocyte Esterase Large H (Negative) Urine Mucus Rare H (None) /hpf 01/16/19 01/17/19 01/17/19 Range/Units 21:29 05:57 05:57 WBC 15.6 H (3.8-10.6) k/uL RBC 3.60 L (4.30-5.90) m/uL Hgb 9.5 L (13.0-17.5) gm/dL Hct 30.6 L (39.0-53.0) % MCHC (31.0-37.0) g/dL RDW 16.5 H (11.5-15.5) % Neutrophils # 13.5 H (1.3-7.7) k/uL Lymphocytes # 0.6 L (1.0-4.8) k/uL Monocytes # 1.1 H (0-1.0) k/uL Potassium 3.1 L (3.5-5.1) mmol/L Chloride 96 L (98-107) mmol/L Carbon Dioxide 36 H (22-30) mmol/L BUN 53 H (9-20) mg/dL Creatinine 1.54 H (0.66-1.25) mg/dL Glucose 39 L* (74-99) mg/dL POC Glucose (mg/dL) 145 H (75-99) mg/dL Calcium 7.7 L (8.4-10.2) mg/dL Alkaline Phosphatase (38-126) U/L C-Reactive Protein (<10.0) mg/L Total Protein (6.3-8.2) g/dL Albumin (3.5-5.0) g/dL Urine Protein (Negative) Urine Blood (Negative) Ur Leukocyte Esterase (Negative) Urine Mucus (None) /hpf 01/17/19 01/17/19 01/17/19 Range/Units 06:01 06:16 09:01 WBC (3.8-10.6) k/uL RBC (4.30-5.90) m/uL Hgb (13.0-17.5) gm/dL Hct (39.0-53.0) % MCHC (31.0-37.0) g/dL RDW (11.5-15.5) % Neutrophils # (1.3-7.7) k/uL Lymphocytes # (1.0-4.8) k/uL Monocytes # (0-1.0) k/uL Potassium (3.5-5.1) mmol/L Chloride (98-107) mmol/L Carbon Dioxide (22-30) mmol/L BUN (9-20) mg/dL Creatinine (0.66-1.25) mg/dL Glucose (74-99) mg/dL POC Glucose (mg/dL) 52 L 63 L 120 H (75-99) mg/dL Calcium (8.4-10.2) mg/dL Alkaline Phosphatase (38-126) U/L C-Reactive Protein (<10.0) mg/L Total Protein (6.3-8.2) g/dL Albumin (3.5-5.0) g/dL Urine Protein (Negative) Urine Blood (Negative) Ur Leukocyte Esterase (Negative) Urine Mucus (None) /hpf Microbiology - Last 24 Hours (Table) 01/16/19 21:11 Gram Stain - Preliminary Leg - Left Wound Culture - Preliminary 01/16/19 21:11 Gram Stain - Preliminary Leg - Right Wound Culture - Preliminary Laboratory Results WBC 15.6 k/uL (3.8-10.6) H 01/17/19 05:57 RBC 3.60 m/uL (4.30-5.90) L 01/17/19 05:57 Hgb 9.5 gm/dL (13.0-17.5) L 01/17/19 05:57 Hct 30.6 % (39.0-53.0) L 01/17/19 05:57 MCV 84.8 fL (80.0-100.0) 01/17/19 05:57 MCH 26.4 pg (25.0-35.0) 01/17/19 05:57 MCHC 31.1 g/dL (31.0-37.0) 01/17/19 05:57 RDW 16.5 % (11.5-15.5) H 01/17/19 05:57 Plt Count 210 k/uL (150-450) 01/17/19 05:57 Neutrophils % 87 % 01/17/19 05:57 Lymphocytes % 4 % 01/17/19 05:57 Monocytes % 7 % 01/17/19 05:57 Eosinophils % 1 % 01/17/19 05:57 Basophils % 0 % 01/17/19 05:57 Neutrophils # 13.5 k/uL (1.3-7.7) H 01/17/19 05:57 Lymphocytes # 0.6 k/uL (1.0-4.8) L 01/17/19 05:57 Monocytes # 1.1 k/uL (0-1.0) H 01/17/19 05:57 Eosinophils # 0.1 k/uL (0-0.7) 01/17/19 05:57 Basophils # 0.1 k/uL (0-0.2) 01/17/19 05:57 Hypochromasia Marked 01/17/19 05:57 Poikilocytosis Slight 01/17/19 05:57 Anisocytosis Slight 01/17/19 05:57 ESR mm/hr (0-15) 01/16/19 15:35 Sodium 137 mmol/L (137-145) 01/17/19 05:57 Potassium 3.1 mmol/L (3.5-5.1) L 01/17/19 05:57 Chloride 96 mmol/L (98-107) L 01/17/19 05:57 Carbon Dioxide 36 mmol/L (22-30) H 01/17/19 05:57 Anion Gap 5 mmol/L 01/17/19 05:57 BUN 53 mg/dL (9-20) H 01/17/19 05:57 Creatinine 1.54 mg/dL (0.66-1.25) H 01/17/19 05:57 Est GFR (CKD-EPI)AfAm 50 (>60 ml/min/1.73 sqM) 01/17/19 05:57 Est GFR (CKD-EPI)NonAf 43 (>60 ml/min/1.73 sqM) 01/17/19 05:57 Glucose 39 mg/dL (74-99) L* 01/17/19 05:57 POC Glucose (mg/dL) 84 mg/dL (75-99) 01/17/19 11:35 POC Glu Gearman ID Unique, Pia 01/17/19 11:35 Plasma Lactic Acid Gutierrez 1.3 mmol/L (0.7-2.0) 01/16/19 15:35 Calcium 7.7 mg/dL (8.4-10.2) L 01/17/19 05:57 Total Bilirubin 0.7 mg/dL (0.2-1.3) 01/16/19 15:35 AST 27 U/L (17-59) 01/16/19 15:35 ALT 26 U/L (21-72) 01/16/19 15:35 Alkaline Phosphatase 229 U/L (38-126) H 01/16/19 15:35 C-Reactive Protein 86.0 mg/L (<10.0) H 01/16/19 15:35 NT-Pro-B Natriuret Pep 9530 pg/mL 01/16/19 15:35 Total Protein 6.0 g/dL (6.3-8.2) L 01/16/19 15:35 Albumin 3.2 g/dL (3.5-5.0) L 01/16/19 15:35 Urine Color Yellow 01/16/19 20:30 Urine Appearance Cloudy (Clear) 01/16/19 20:30 Urine pH 6.5 (5.0-8.0) 01/16/19 20:30 Ur Specific [place] 1.017 (1.001-1.035) 01/16/19 20:30 Urine Protein 2+ (Negative) H 01/16/19 20:30 Urine Glucose (UA) Negative (Negative) 01/16/19 20:30 Urine Ketones Negative (Negative) 01/16/19 20:30 Urine Blood Moderate (Negative) H 01/16/19 20:30 Urine Nitrite Negative (Negative) 01/16/19 20:30 Urine Bilirubin Negative (Negative) 01/16/19 20:30 Urine Urobilinogen 2.0 mg/dL (<2.0) 01/16/19 20:30 Ur Leukocyte Esterase Large (Negative) H 01/16/19 20:30 Urine RBC 1 /hpf (0-5) 01/16/19 20:30 Urine WBC 3 /hpf (0-5) 01/16/19 20:30 Ur Squamous Epith Cells 1 /hpf (0-4) 01/16/19 20:30 Urine Mucus Rare /hpf (None) H 01/16/19 20:30 Microbiology 01/16/19 21:11 Leg - Left Gram Stain - Preliminary 01/16/19 21:11 Leg - Left Wound Culture - Preliminary 01/16/19 21:11 Leg - Right Gram Stain - Preliminary 01/16/19 21:11 Leg - Right Wound Culture - Preliminary Assessment and Plan (1) Left leg cellulitis Narrative/Plan: 78-year-old male presents to the hospital with increasing pain to the left leg to the point that he was having difficulty in relating to the severity of the pain. As noted he has status post recent non-ST elevated myocardial infarction with coronary artery bypass grafting procedure. The patient did finish his stay at rehab and was back to home when he had the sudden onset of the pain to the left leg after a physical therapy session. If this time is concerned with the localized tenderness to possible deep venous thrombosis in the duplexes been requested. Local wound care with therahoney products have been requested. Elevation of the limbs well he is at rest Ensuring good diabetes care with control of blood glucose and adequate protein intake For antibiotic therapy is initiated Zosyn and vancomycin. The creatinine is elevated and constantly we'll alter vancomycin to daptomycin for now. We'll de- escalate Zosyn once culture results are available. Leukocytosis likely the basis of the cellulitis to the left lower extremity possibly deep venous thrombosis. Current Visit: Yes Status: Acute Code(s): L03.116 - CELLULITIS OF LEFT LOWER LIMB SNOMED Code(s): 694735659 (2) Chronic venous hypertension (idiopathic) with ulcer of bilateral lower extremity Current Visit: Yes Status: Acute Code(s): I87.313 - CHRONIC VENOUS HYPERTENSION W ULCER OF BILATERAL LOW EXTRM; L97.919 - NON-PRS CHRONIC ULC UNSP PRT OF R LOW LEG W UNSP SEVERITY; L97.929 - NON-PRS CHRONIC ULC UNSP PRT OF L LOW LEG W UNSP SEVERITY SNOMED Code(s): 190842693560167
--- NOTE | 2019-01-17 14:06 | CDI ---
Documentation Clarification Form Date: 01/17/2019 1:45:46 PM From: Tabby Glasgow RN, CCDS Admit Date: 01/16/2019 4:36:00 PM Patient Name: Neto Brice Visit Number: [id number] ATTENTION: The Clinical Documentation Specialists (CDI) and [facility] Coding Staff appreciate your assistance in clarifying documentation. Please respond to the clarification below the line at the bottom and electronically sign. The CDI & [facility] Coding staff will review the response and follow-up if needed. Please note: Queries are made part of the Legal Health Record. If you have any questions, please contact the author of this message via ITS. Dr. Elvira Stoddard CHF is documented in the PMI of the H&P and requires further specificity History/Risk Factors: Atrial flutter, CAD, CHF, DM2, GERD, HTN, Hyperlipidemia, [place], DJD, CABG Clinical Indicators: VS/Pulse OX: Temp 98.4, hr 81, RR 20, B/P 108/62, spo2 96% ra BNP: 9530 Echocardiogram Results: EF 45-50% with inferior basal hypo kinesis Chest US: bilateral pleural effusions, right greater than left Treatment: Lasix 40 mg Po QD In your professional opinion, can you please clarify the acuity and type of CHF if known? Systolic Heart Failure: Acute Chronic Acute on Chronic Diastolic Heart Failure: Acute Chronic Acute on Chronic Systolic & Diastolic Heart Failure: Acute Chronic Acute on Chronic Heart Failure Unable to Determine Other, please specify (Last Revision: December 2017) Systolic Heart Failure: Chronic MTDD
[2019-01-17] MEDS ORDERED: HEPARIN SODIUM,PORCINE 5,000 UNIT/ML 1 ML VIAL IV PRN ×2 (14:18→20:00)
[2019-01-17] MEDS ORDERED: HEPARIN SOD,PORK IN 0.45% NACL 25,000 UNIT in 0.45% NACL 1 250ML.BAG IV SCH (14:30)
--- NOTE | 2019-01-17 15:05 | US ---
EXAMINATION TYPE: US venous doppler duplex LE DATE OF EXAM: 01/17/2019 2:07 PM COMPARISON: NONE CLINICAL HISTORY: DVT left leg. SIDE PERFORMED: Bilateral TECHNIQUE: The lower extremity deep venous system is examined utilizing real time linear array sonog taran with graded compression, doppler sonography and color-flow sonography. VESSELS IMAGED: External Iliac Vein (EIV) Common Femoral Vein Deep Femoral Vein Greater Saphenous Vein * Femoral Vein Popliteal Vein Small Saphenous Vein * Proximal Calf Veins (* superficial vessels) Grayscale, color doppler, spectral doppler imaging performed of the deep veins of the lower extremiti es. There is normal flow, compressibility, vascular waveforms. Right Leg: Negative for DVT Left Leg: Negative for DVT Extensive leg swelling, technically difficult. IMPRESSION: Bilateral lower extremity subcutaneous edema. No sonographic evidence of deep venous thr ombosis.
--- NOTE | 2019-01-17 15:21 | P.GSCN ---
History of Present Illness Consult date: 01/17/19 Reason for Consult: Status post coronary artery bypass grafting surgery Requesting physician: Elvira Stoddard History of present illness: This is a 78-year-old gentleman who is followed by Saida Roman physician assistant analyst at the [place] [facility] in the [place]. He is a past medical history for severe triple-vessel coronary artery disease with non-STEMI, status post quadruple coronary artery bypass grafting surgery on 12/08/2018, acute on chronic systolic and diastolic heart failure with an ejection fraction 40-45%, moderate left ventricular systolic function with [id number] mitral valve regurgitation, history of right sided pleural effusion status post thoracentesis with 900 mL of drainage and dated fluid drained on 12/02/2018, history of coronary artery disease with previous stents to his left anterior descending coronary artery in 2004, recent diagnosis of persistent paroxysmal atrial fibrillation status post cardioversion and is on eliquis for anticoagulation, hypertension, hyperlipidemia, uncontrolled diabetes mellitus with recent hemoglobin A1c of 7.8%, severe COPD with a recent FEV1 47% of predicted value, peripheral arterial disease, chronic venous stasis ulcers to his right lower extremity, and prostate disorder. Postoperatively from his myocardial revascularization surgery he was discharged to [facility] inpatient rehab for further rehabilitation needs on 12/20/2018. According to the patient he was discharged from inpatient rehab and was staying at his brother and [id number]'s house with home health care. The patient's brother reports that once discharged from [facility] inpatient rehab that they were having trouble receiving all of his medications since he is followed at the [place] [facility] in [facility]. The patient's brother also states that he d id not have his prescribed insulin for at least 4 days after being discharged. The patient reports that he was doing quite well at home until this past Wednesday when he developed severe left knee pain. He also had still some complaints of shortness of breath although states that it is no worse than from his postoperative recovery from his open heart surgery. He denies any recent fever, chills, trauma to his knee, drainage. Preoperatively he was being treated for a venous stasis ulcer to his right lower extremity, although reports that he did develop a large 3 1/2 inch blister to his left lower extremity at home. The pain to his left knee made him unable to ambulate at home and decided to present to the emergency department here at [facility]. Due to the patient's recent myocardial vascularization surgery Dr. Camilla Rivero was asked to evaluate the patient. Review of Systems A 14 point review of systems was completed and was negative except as mentioned in the HPI. Past Medical History Past Medical History: Atrial Fibrillation, Atrial Flutter, Coronary Artery Disease (CAD), Heart Failure (Acute on chronic systolic and diastolic), COPD, Diabetes Mellitus, GERD/Reflux, Hyperlipidemia, Hypertension, Myocardial Infarction (non Q-wave), Osteoarthritis (OA), Prostate Disorder, Respiratory Disorder (History of right pleural effusion) Additional Past Medical History / Comment(s): edema in legs with open blisters now being treated by homecare RN, subacute NM requiring CABG surgery Last Myocardial Infarction Date:: 12/08/18 History of Any Multi-Drug Resistant Organisms: None Reported Past Surgical History: Appendectomy, Coronary Bypass/CABG, Heart Catheterization With Stent Additional Past Surgical History / Comment(s): cataract removal, 4 vessel CABG surgery 12/08/18 Past Anesthesia/Blood Transfusion Reactions: No Reported Reaction Date of Last Stent Placement:: unsure Past Psychological History: No Psychological Hx Reported Additional Psychological History / Comment(s): Single. No children. No pets. Remote tobacco use. No international travel since his experience. Worked on [employer] Smoking Status: Former smoker Past Alcohol Use History: None Reported Additional Past Alcohol Use History / Comment(s): quit drinking 1974 Past Drug Use History: None Reported - Past Family History Mother Family Medical History: Myocardial Infarction (NM) Additional Family Medical History / Comment(s): age 64 Medications and Allergies Home Medications Medication Instructions Recorded Confirmed Type Ascorbic Acid [Vitamin C] 500 mg PO BID-W/MEALS tab 12/20/18 01/16/19 Rx Ferrous Sulfate [Iron (65 MG 325 mg PO DAILY tab 12/20/18 01/16/19 Rx Elemental)] Metoprolol Tartrate [Lopressor] 25 mg PO BID tab 12/20/18 01/16/19 Rx Apixaban [Eliquis] 5 mg PO DAILY 01/13/19 01/16/19 History Insulin Glargine [Lantus] 10 unit SQ HS 01/13/19 01/16/19 History Melatonin 3 mg PO HS 01/13/19 01/16/19 History Metolazone [Zaroxolyn] 2.5 mg PO DAILY 01/13/19 01/16/19 History Rosuvastatin Calcium [Crestor] 40 mg PO HS 01/13/19 01/16/19 History Tamsulosin [Flomax] 0.4 mg PO BID 01/13/19 01/16/19 History Aspirin EC [Ecotrin Low Dose] 81 mg PO HS 01/16/19 01/16/19 History Furosemide [Lasix] 40 mg PO BID 01/16/19 01/16/19 History INSULIN LISPRO (humaLOG) [humaLOG] See Protocol SQ AC-TID 01/16/19 01/16/19 History hydrALAZINE HCL [Apresoline] 25 mg PO BID 01/16/19 01/16/19 History Allergies Allergy/AdvReac Type Severity Reaction Status Date / Time No Known Allergies Allergy Verified 01/16/19 14:36 Surgical - Exam Vital Signs Temp Pulse Resp BP Pulse Ox 98.4 F 81 20 108/62 96 01/16/19 14:14 01/16/19 14:14 01/16/19 14:14 01/16/19 14:14 01/16/19 14:14 - General well developed, well nourished, no distress, moderate pain (Left knee), obese - Eyes PERRL, normal ocular movement - ENT normal pinna, normal nares, normal mucosa, no hearing loss, no congestion - Neck Neck is supple, no lymphadenopathy. No thyromegaly. no masses, no bruits, trachea midline, no venous distension - Respiratory Lungs sounds essentially clear to his bilateral upper lobes, diminished to his bilateral bases with few scattered crackles. Respirations are symmetrical and nonlabored. - Cardiovascular Regular rhythm and rate. S1 and S2 present, negative for S3, gallop or murmur. Remote telemetry showing normal sinus rhythm heart rate 78. Generalized +1 edema. - Abdomen Abdomen soft, nontender and nondistended. Active bowel sounds all 4 abdominal quadrants. No guarding or rigidity. No organomegaly. - Genitourinary Deferred - Rectum Deferred - Integumentary Skin is warm and dry. No clubbing or cyanosis is present. Few scattered ecchymotic areas to his bilateral upper extremities. Left lower extremity with ulceration to his left lateral lower extremity. Chronic venous stasis ulcer to his right lower extremity. Midline sternal incision is clean, dry and approximated. No drainage or redness was present. Bilateral lower extremity EVH sites clean, dry and approximated. Some surrounding redness to his left lower extremity EVH site, tender to touch. - Neurologic Cranial nerves II through XII intact. - Musculoskeletal Weakness to his left lower extremity due to pain with weightbearing. - Psychiatric oriented to time, oriented to person, oriented to place, speech is normal, memory intact Results - Labs 01/17/19 05:57 01/17/19 05:57 Abnormal Lab Results - Last 24 Hours (Table) 01/16/19 01/16/19 01/16/19 Range/Units 15:35 15:35 20:30 WBC 19.1 H (3.8-10.6) k/uL RBC 4.11 L (4.30-5.90) m/uL Hgb 10.4 L (13.0-17.5) gm/dL Hct 34.6 L (39.0-53.0) % MCHC 29.9 L (31.0-37.0) g/dL RDW 17.2 H (11.5-15.5) % Neutrophils # 17.2 H (1.3-7.7) k/uL Lymphocytes # 0.4 L (1.0-4.8) k/uL Monocytes # 1.1 H (0-1.0) k/uL Potassium (3.5-5.1) mmol/L Chloride 92 L (98-107) mmol/L Carbon Dioxide 36 H (22-30) mmol/L BUN 54 H (9-20) mg/dL Creatinine 1.63 H (0.66-1.25) mg/dL Glucose 110 H (74-99) mg/dL POC Glucose (mg/dL) (75-99) mg/dL Calcium 8.3 L (8.4-10.2) mg/dL Alkaline Phosphatase 229 H (38-126) U/L C-Reactive Protein 86.0 H (<10.0) mg/L Total Protein 6.0 L (6.3-8.2) g/dL Albumin 3.2 L (3.5-5.0) g/dL Urine Protein 2+ H (Negative) Urine Blood Moderate H (Negative) Ur Leukocyte Esterase Large H (Negative) Urine Mucus Rare H (None) /hpf 01/16/19 01/17/19 01/17/19 Range/Units 21:29 05:57 05:57 WBC 15.6 H (3.8-10.6) k/uL RBC 3.60 L (4.30-5.90) m/uL Hgb 9.5 L (13.0-17.5) gm/dL Hct 30.6 L (39.0-53.0) % MCHC (31.0-37.0) g/dL RDW 16.5 H (11.5-15.5) % Neutrophils # 13.5 H (1.3-7.7) k/uL Lymphocytes # 0.6 L (1.0-4.8) k/uL Monocytes # 1.1 H (0-1.0) k/uL Potassium 3.1 L (3.5-5.1) mmol/L Chloride 96 L (98-107) mmol/L Carbon Dioxide 36 H (22-30) mmol/L BUN 53 H (9-20) mg/dL Creatinine 1.54 H (0.66-1.25) mg/dL Glucose 39 L* (74-99) mg/dL POC Glucose (mg/dL) 145 H (75-99) mg/dL Calcium 7.7 L (8.4-10.2) mg/dL Alkaline Phosphatase (38-126) U/L C-Reactive Protein (<10.0) mg/L Total Protein (6.3-8.2) g/dL Albumin (3.5-5.0) g/dL Urine Protein (Negative) Urine Blood (Negative) Ur Leukocyte Esterase (Negative) Urine Mucus (None) /hpf 01/17/19 01/17/19 01/17/19 Range/Units 06:01 06:16 09:01 WBC (3.8-10.6) k/uL RBC (4.30-5.90) m/uL Hgb (13.0-17.5) gm/dL Hct (39.0-53.0) % MCHC (31.0-37.0) g/dL RDW (11.5-15.5) % Neutrophils # (1.3-7.7) k/uL Lymphocytes # (1.0-4.8) k/uL Monocytes # (0-1.0) k/uL Potassium (3.5-5.1) mmol/L Chloride (98-107) mmol/L Carbon Dioxide (22-30) mmol/L BUN (9-20) mg/dL Creatinine (0.66-1.25) mg/dL Glucose (74-99) mg/dL POC Glucose (mg/dL) 52 L 63 L 120 H (75-99) mg/dL Calcium (8.4-10.2) mg/dL Alkaline Phosphatase (38-126) U/L C-Reactive Protein (<10.0) mg/L Total Protein (6.3-8.2) g/dL Albumin (3.5-5.0) g/dL Urine Protein (Negative) Urine Blood (Negative) Ur Leukocyte Esterase (Negative) Urine Mucus (None) /hpf Microbiology - Last 24 Hours (Table) 01/16/19 21:11 Gram Stain - Preliminary Leg - Left Wound Culture - Preliminary 01/16/19 21:11 Gram Stain - Preliminary Leg - Right Wound Culture - Preliminary Diabetes panel 01/16/19 01/17/19 Range/Units 15:35 05:57 Sodium 137 137 (137-145) mmol/L Potassium 3.6 3.1 L (3.5-5.1) mmol/L Chloride 92 L 96 L (98-107) mmol/L Carbon Dioxide 36 H 36 H (22-30) mmol/L BUN 54 H 53 H (9-20) mg/dL Creatinine 1.63 H 1.54 H (0.66-1.25) mg/dL Glucose 110 H 39 L* (74-99) mg/dL Calcium 8.3 L 7.7 L (8.4-10.2) mg/dL AST 27 (17-59) U/L ALT 26 (21-72) U/L Alkaline Phosphatase 229 H (38-126) U/L Total Protein 6.0 L (6.3-8.2) g/dL Albumin 3.2 L (3.5-5.0) g/dL Calcium panel 01/16/19 01/17/19 Range/Units 15:35 05:57 Calcium 8.3 L 7.7 L (8.4-10.2) mg/dL Albumin 3.2 L (3.5-5.0) g/dL Pituitary panel 01/16/19 01/17/19 Range/Units 15:35 05:57 Sodium 137 137 (137-145) mmol/L Potassium 3.6 3.1 L (3.5-5.1) mmol/L Chloride 92 L 96 L (98-107) mmol/L Carbon Dioxide 36 H 36 H (22-30) mmol/L BUN 54 H 53 H (9-20) mg/dL Creatinine 1.63 H 1.54 H (0.66-1.25) mg/dL Glucose 110 H 39 L* (74-99) mg/dL Calcium 8.3 L 7.7 L (8.4-10.2) mg/dL Adrenal panel 01/16/19 01/17/19 Range/Units 15:35 05:57 Sodium 137 137 (137-145) mmol/L Potassium 3.6 3.1 L (3.5-5.1) mmol/L Chloride 92 L 96 L (98-107) mmol/L Carbon Dioxide 36 H 36 H (22-30) mmol/L BUN 54 H 53 H (9-20) mg/dL Creatinine 1.63 H 1.54 H (0.66-1.25) mg/dL Glucose 110 H 39 L* (74-99) mg/dL Calcium 8.3 L 7.7 L (8.4-10.2) mg/dL Total Bilirubin 0.7 (0.2-1.3) mg/dL AST 27 (17-59) U/L ALT 26 (21-72) U/L Alkaline Phosphatase 229 H (38-126) U/L Total Protein 6.0 L (6.3-8.2) g/dL Albumin 3.2 L (3.5-5.0) g/dL Assessment and Plan Assessment: 1. Chronic venous stasis ulcer to his right lower extremity 2. Cellulitis to his left lower extremity, left knee pain 3. Leukocytosis 4. Chronic kidney disease stage III 5. Coronary artery disease status post coronary artery bypass grafting surgery 6. History of non-STEMI 7. Acute on chronic systolic and diastolic congestive heart failure 8. History of atrial flutter 9. Diabetes mellitus type 2, uncontrolled 10. Hypertension 11. Hyperlipidemia 12. Gastroesophageal reflux disease 13. Osteoarthritis 14. History of prostate disorder, Torres catheter in place 15. Remote history of nicotine dependence 16. History of right pleural effusion status post thoracentesis 17. Peripheral vascular disease Plan: The patient was seen and examined on the 3 S cardiac stepdown unit. His chart and diagnostics were reviewed. The patient was seen and examined by Dr. Camilla Rivero from cardiothoracic surgery. Infectious disease has been consulted to evaluate and give treatment recommendations for his ulcerations to his bilateral lower extremities. Continue GI and DVT prophylaxis. Medical management r ecommendations per primary care service. The patient remains with a Torres catheter in place, we will consult urology as he had a follow-up appointment to see Dr. Phillips in the office tomorrow 01/18/2019. Consult social work as the patient may require subacute rehab upon discharge. Pulmonary management recommendations per Dr. Bull. Thank you Dr. Stoddard for this consult and we will look forward to working with you in the care of your patient. Time with Patient: Greater than 30
[2019-01-17 15:52] LABS: INR 1.1 (<1.2); Partial Thromboplastin Time 29.9 sec (22.0-30.0); Prothrombin Time 11.6 sec (9.0-12.0)
[2019-01-17 15:53] LABS: Anisocytosis Slight; Basophils # (A) 0.1 k/uL (0-0.2); Basophils % (A) 0 %; Eosinophils # (A) 0.4 k/uL (0-0.7); Eosinophils % (A) 3 %; HCT 33.1 % (39.0-53.0); HGB 10.2 gm/dL (13.0-17.5); Hypochromasia Marked; Lymphocytes # (A) 0.6 k/uL (1.0-4.8); Lymphocytes % (A) 4 %; MCH 26.4 pg (25.0-35.0); MCHC 30.8 g/dL (31.0-37.0); MCV 85.5 fL (80.0-100.0); Mean Platelet Volume 7.7; Monocytes % (A) 7 %; Neutrophils # (A) 13.3 k/uL (1.3-7.7); Neutrophils % (A) 85 %; Platelet Count 230 k/uL (150-450); Poikilocytosis Slight; RBC 3.87 m/uL (4.30-5.90); RDW 16.2 % (11.5-15.5); WBC 15.6 k/uL (3.8-10.6)
[2019-01-17] MEDS: DAPTOmycin 500 MG in SODIUM CHLORIDE 0.9% 50 ML IVPB SCH (16:39)
--- NOTE | 2019-01-17 16:49 | P.CNPUL ---
History of Present Illness Consult date: 01/17/19 Requesting physician: Archie Reyes Reason for consult: pleural effusion Chief complaint: Bilateral pleural effusions History of present illness: This is 78-year-old white male patient of Saida Roman PA-C, from the [facility], who recently had a non-ST elevated myocardial infarction, and underwent four-vessel coronary artery bypass grafting using the left internal mammary artery to the LAD, reverse SVG to the diagonal, reverse SVG to the OM 1, and to the distal branch of the circumflex artery, bilateral pulmonary vein isolation using radiofrequency and AtriCure clamp, and left atrial appendage exclusion, on 12/20/[address] Rivero. Patient also had a right-sided pleural effusion with thoracentesis and removal of 900 mL of transudative pleural fluid with negative cytology. Medical history includes coronary artery disease with previous stents to the LAD in 2004, and previous myocardial infarction, paroxysmal atrial flutter status post cardioversion on long-term anticoagulation with Eliquis, hypertension, hyperlipidemia, uncontrolled diabetes mellitus, peripheral artery disease, chronic venous stasis ulcers to the right lower extremity, benign prostatic hypertrophy. Following his surgery patient was discharged to inpatient rehab on postoperative day 12, where he continued to work with physical, occupational and cardiac rehab. Patient was seen in follow-up by Dr. Bull the pulmonary clinic on 01/13/2019 for hospital follow-up, and patient was mildly short of breath, but no fever or chills, requiring any oxygen, and was noted to have increasing pleural effusions, and he was ordered to have follow-up outpatient chest ultrasound and outpatient thoracentesis by interventional radiology. However patient came into the hospital instead on 01/16/2019 with complaints of left knee pain, and developing blister on the left lower extremity near medial left knee over the past 2 weeks, which started to drain. Patient states the left lower leg is very tender to palpation. Admits to occasional chills. Denied any fever or night sweats. Physical exam reveals ulceration of the lateral aspect of left lower leg and the medial proximal area just distal to the knee and a lot of tenderness to palpation, with drainage of purulent material and warmth to palpation. Left leg was the harvest site for the venous graft. She also had significant leukocytosis consistent with infection. Patient denies any shortness of breath, or chest pain. Lactic acid was within normal limits, she was started on IV antibiotics with ceftriaxone and vancomycin, infectious disease service was consulted, and we're consulted in regards to bilateral pleural effusions Review of Systems All systems: negative Constitutional: Denies chills, Denies fever Eyes: denies blurred vision, denies pain Ears, nose, mouth and throat: Denies headache, Denies sore throat Cardiovascular: Denies chest pain, Denies shortness of breath Respiratory: Denies cough Gastrointestinal: Denies abdominal pain, Denies diarrhea, Denies nausea, Denies vomiting Musculoskeletal: Denies myalgias Musculoskeletal: left: knee pain, knee swelling Integumentary: Denies pruritus, Denies rash Neurological: Denies numbness, Denies weakness Psychiatric: Denies anxiety, Denies depression Endocrine: Denies fatigue, Denies weight change Past Medical History Past Medical History: Atrial Flutter, Coronary Artery Disease (CAD), Heart Failure, Diabetes Mellitus, GERD/Reflux, Hyperlipidemia, Hypertension, Myocardial Infarction (LA), Osteoarthritis (OA), Prostate Disorder Additional Past Medical History / Comment(s): edema in legs with open blisters now being treated by homecare RN, subacute [place] requiring CABG surgery Last Myocardial Infarction Date:: 12/08/18 History of Any Multi-Drug Resistant Organisms: None Reported Past Surgical History: Appendectomy, Coronary Bypass/CABG, Heart Catheterization With Stent Additional Past Surgical History / Comment(s): cataract removal, 4 vessel CABG surgery 12/08/18 Past Anesthesia/Blood Transfusion Reactions: No Reported Reaction Date of Last Stent Placement:: unsure Past Psychological History: No Psychological Hx Reported Additional Psychological History / Comment(s): Single. No children. No pets. Remote tobacco use. No international travel since his experience. Worked on [employer] Smoking Status: Former smoker Past Alcohol Use History: None Reported Additional Past Alcohol Use History / Comment(s): quit drinking 1974 Past Drug Use History: None Reported - Past Family History Mother Family Medical History: Myocardial Infarction (LA) Additional Family Medical History / Comment(s): age 64 Medications and Allergies Home Medications Medication Instructions Recorded Confirmed Type Ascorbic Acid [Vitamin C] 500 mg PO BID-W/MEALS tab 12/20/18 01/16/19 Rx Ferrous Sulfate [Iron (65 MG 325 mg PO DAILY tab 12/20/18 01/16/19 Rx Elemental)] Metoprolol Tartrate [Lopressor] 25 mg PO BID tab 12/20/18 01/16/19 Rx Apixaban [Eliquis] 5 mg PO DAILY 01/13/19 01/16/19 History Insulin Glargine [Lantus] 10 unit SQ HS 01/13/19 01/16/19 History Melatonin 3 mg PO HS 01/13/19 01/16/19 History Metolazone [Zaroxolyn] 2.5 mg PO DAILY 01/13/19 01/16/19 History Rosuvastatin Calcium [Crestor] 40 mg PO HS 01/13/19 01/16/19 History Tamsulosin [Flomax] 0.4 mg PO BID 01/13/19 01/16/19 History Aspirin EC [Ecotrin Low Dose] 81 mg PO HS 01/16/19 01/16/19 History Furosemide [Lasix] 40 mg PO BID 01/16/19 01/16/19 History INSULIN LISPRO (humaLOG) [humaLOG] See Protocol SQ AC-TID 01/16/19 01/16/19 History hydrALAZINE HCL [Apresoline] 25 mg PO BID 01/16/19 01/16/19 History Allergies Allergy/AdvReac Type Severity Reaction Status Date / Time No Known Allergies Allergy Verified 01/16/19 14:36 Physical Exam Vitals: Vital Signs Temp Pulse Pulse Pulse Resp BP BP 01/17/19 11:14 97.8 F 91 18 103/60 01/17/19 08:00 97.3 F L 18 101/54 01/17/19 04:00 98.8 F 17 104/56 01/16/19 23:26 18 01/16/19 23:25 99.6 F 18 110/60 01/16/19 20:00 100.1 F H 17 117/57 01/16/19 17:06 97.4 F L 95 18 109/56 01/16/19 16:44 99.2 F 82 18 112/57 01/16/19 14:14 98.4 F 81 20 108/62 Pulse Ox 01/17/19 11:14 98 01/17/19 08:00 97 01/17/19 04:00 96 01/16/19 23:26 01/16/19 23:25 98 01/16/19 20:00 97 01/16/19 17:06 92 L 01/16/19 16:44 97 01/16/19 14:14 96 Intake and Output 01/16/19 01/17/19 01/17/19 22:59 06:59 14:59 Intake Total 1725 Output Total 375 300 Balance -375 1425 Intake: Intake, IV Titration 925 Amount Piperacillin-Tazobactam 3 100 .375 gm In Sodium Chloride 0.9% 100 ml @ 25 mls/hr IVPB Q8HR [facility] Rx# :[id number] Sodium Chloride 0.9% 1, 825 000 ml @ 75 mls/hr IV . [id number] [facility] Rx#:[id number] Oral 800 Output: Urine 375 300 Other: Voiding Method Incontinent Incontinent Incontinent Weight 56 kg 82.8 kg GENERAL EXAM: Alert, pleasant, 78-year-old white male on room air, with a pulse ox of 100%, comfortable in no apparent distress. HEAD: Normocephalic/atraumatic. EYES: Normal reaction of pupils, equal size. Conjunctiva pink, sclera white. NOSE: Clear with pink turbinates. THROAT: No erythema or exudates. NECK: No masses, no JVD, no thyroid enlargement, no adenopathy. CHEST: No chest wall deformity. Symmetrical expansion. LUNGS: Equal air entry with scattered coarse rhonchi, diminished air entry at the bases CVS: Regular rate and rhythm, normal S1 and S2, no gallops, no murmurs, no rubs ABDOMEN: Soft, nontender. No hepatosplenomegaly, normal bowel sounds, no guarding or rigidity. EXTREMITIES: No clubbing, no cyanosis, 2+ pulses and upper and lower extremities. Bilateral lower extremity edema, ulcerations on the medial part of the left leg, with significant tenderness, ecchymosis noted to bilateral lower extremities MUSCULOSKELETAL: Muscle strength and tone normal. SPINE: No scoliosis or deformity SKIN: No rashes CENTRAL NERVOUS SYSTEM: Alert and oriented -3. No focal deficits, tone is normal in all 4 extremities. PSYCHIATRIC: Alert and oriented -3. Appropriate affect. Intact judgment and insight. Results - Laboratory Findings CBC and BMP: 01/17/19 15:30 01/17/19 05:57 Abnormal lab findings: Abnormal Labs 01/16/19 01/16/19 01/16/19 15:35 15:35 20:30 WBC 19.1 H RBC 4.11 L Hgb 10.4 L Hct 34.6 L MCHC 29.9 L RDW 17.2 H Neutrophils # 17.2 H Lymphocytes # 0.4 L Monocytes # 1.1 H Potassium Chloride 92 L Carbon Dioxide 36 H BUN 54 H Creatinine 1.63 H Glucose 110 H POC Glucose (mg/dL) Calcium 8.3 L Alkaline Phosphatase 229 H C-Reactive Protein 86.0 H Total Protein 6.0 L Albumin 3.2 L Urine Protein 2+ H Urine Blood Moderate H Ur Leukocyte Esterase Large H Urine Mucus Rare H 01/16/19 01/17/19 01/17/19 21:29 05:57 05:57 WBC 15.6 H RBC 3.60 L Hgb 9.5 L Hct 30.6 L MCHC RDW 16.5 H Neutrophils # 13.5 H Lymphocytes # 0.6 L Monocytes # 1.1 H Potassium 3.1 L Chloride 96 L Carbon Dioxide 36 H BUN 53 H Creatinine 1.54 H Glucose 39 L* POC Glucose (mg/dL) 145 H Calcium 7.7 L Alkaline Phosphatase C-Reactive Protein Total Protein Albumin Urine Protein Urine Blood Ur Leukocyte Esterase Urine Mucus 01/17/19 01/17/19 01/17/19 06:01 06:16 09:01 WBC RBC Hgb Hct MCHC RDW Neutrophils # Lymphocytes # Monocytes # Potassium Chloride Carbon Dioxide BUN Creatinine Glucose POC Glucose (mg/dL) 52 L 63 L 120 H Calcium Alkaline Phosphatase C-Reactive Protein Total Protein Albumin Urine Protein Urine Blood Ur Leukocyte Esterase Urine Mucus - Diagnostic Findings Chest x-ray: report reviewed Additional studies: Ultrasound the chest, results of the left knee x-ray reviewed Assessment and Plan Plan: Assessment: #1. Left leg cellulitis #2. Bilateral pleural effusions, right greater than the left #3. Acute kidney injury likely related to ATN #4. Recent non-ST elevated myocardial infarction in December 2018 #5. Triple-vessel coronary artery disease, status post four-vessel bypass, with radiofrequency ablation of the pulmonary artery, and exclusion of the left atrial appendix #6. Paroxysmal atrial flutter status post cardioversion, on Eliquis #7. Chronic congestive heart failure with systolic dysfunction #8. Type 2 diabetes mellitus #9. Hypertension #10. Hyperlipidemia #11. History of previous coronary artery disease and previous PCI, and previous episode of myocardial infarction Plan: Ultrasound of the chest has been ordered, and reviewed, patient has bilateral pleural effusions, right greater than the left, we will hold Eliquis for 2 days, will continue with diuresis for now, we'll plan on the right-sided thoracentesis in 48 hours. We'll start heparin drip for anticoagulation tonight at 8:00 PM, low intensity protocol, no bolus. Continue the IV antibiotics per ID service recommendations, we'll continue to follow and make further recommendations I performed a history & physical examination of the patient and discussed their management with my nurse practitioner, Demetria Ramos. I reviewed the nurse practitioner's note and agree with the documented findings and plan of care. Lung sounds are positive for diminished breath sounds at the bases. The findings and the impression was discussed with the patient. I attest to the documentation by the nurse practitioner. Time with Patient: Greater than 30
[2019-01-17 16:54] LABS: Glucose,Whole Blood 105 mg/dL (75-99)
[2019-01-17] MEDS: MELATONIN 3 MG TABLET PO SCH (19:55)
[2019-01-17] MEDS: ATORVASTATIN 80 MG TAB PO SCH (19:55)
[2019-01-17] MEDS: ASPIRIN 81 MG PO SCH (19:56)
[2019-01-17] MEDS: HEPARIN SOD,PORK IN 0.45% NACL 25,000 UNIT in 0.45% NACL 1 250ML.BAG IV SCH (20:17)
[2019-01-17 20:34] LABS: Glucose,Whole Blood 163 mg/dL (75-99)
[2019-01-17] MEDS: INSULIN DETEMIR (LEVEMIR) 100 UNIT/ML SYR SQ SCH (21:15)
[2019-01-18 05:44] LABS: Glucose,Whole Blood 67 mg/dL (75-99)
[2019-01-18 06:02] LABS: Glucose,Whole Blood 78 mg/dL (75-99)
[2019-01-18] MEDS: hydrALAZINE HCL 25 MG TAB PO SCH ×3 (06:14→21:14)
[2019-01-18] MEDS: PIPERACILLIN-TAZOBACTAM 3.375 GM in SODIUM CHLORIDE 0.9% 100 ML IVPB SCH ×3 (06:14→16:55)
[2019-01-18] MEDS: INSULIN ASPART (NovoLOG) 100 UNIT/ML VIAL SQ SCH ×4 (06:14→21:14)
[2019-01-18] MEDS: ASCORBIC ACID 500 MG TAB PO SCH ×2 (06:15→16:56)
[2019-01-18] MEDS: PANTOPRAZOLE 40 MG TABLET PO SCH (06:16)
[2019-01-18 07:24] LABS: Anisocytosis Slight; Basophils # (A) 0.1 k/uL (0-0.2); Basophils % (A) 0 %; Eosinophils # (A) 0.4 k/uL (0-0.7); Eosinophils % (A) 3 %; HCT 30.2 % (39.0-53.0); HGB 9.5 gm/dL (13.0-17.5); Hypochromasia Marked; Lymphocytes # (A) 0.5 k/uL (1.0-4.8); Lymphocytes % (A) 3 %; MCH 26.5 pg (25.0-35.0); MCHC 31.3 g/dL (31.0-37.0); MCV 84.6 fL (80.0-100.0); Mean Platelet Volume 7.5; Monocytes % (A) 7 %; Neutrophils # (A) 11.9 k/uL (1.3-7.7); Neutrophils % (A) 85 %; Platelet Count 236 k/uL (150-450); Poikilocytosis Slight; RBC 3.57 m/uL (4.30-5.90)
[2019-01-18] MEDS: SODIUM CHLORIDE 0.9% 1,000 ML IV SCH (08:15)
[2019-01-18] MEDS: METOPROLOL TARTRATE 25 MG TAB PO SCH ×2 (08:16→21:14)
[2019-01-18] MEDS: FUROSEMIDE 40 MG TAB PO SCH ×2 (08:16→16:56)
[2019-01-18] MEDS: METOLAZONE 2.5 MG TAB PO SCH (08:16)
[2019-01-18] MEDS: TAMSULOSIN 0.4 MG CAP.ER.24H PO SCH ×2 (08:16→21:14)
[2019-01-18] MEDS: FERROUS SULFATE 325 MG TAB PO SCH (08:16)
[2019-01-18] MEDS: MULTIVITAMINS, THERA 1 EACH TAB PO SCH (08:16)
[2019-01-18 08:17] LABS: Calcium 7.8 mg/dL (8.4-10.2); Potassium 3.4 mmol/L (3.5-5.1)
--- NOTE | 2019-01-18 08:31 | XR ---
EXAMINATION TYPE: XR chest 1V portable DATE OF EXAM: 01/18/2019 COMPARISON: 12/20/2018 HISTORY: Follow-up for pleural effusion TECHNIQUE: Single frontal view of the chest is obtained. FINDINGS: Postoperative changes of the chest are noted with an enlarged cardiac mediastinal silhouet te. Trace pleural effusions are again seen with left perihilar airspace disease and retrocardiac airs pace disease. Overall low lung volumes. IMPRESSION: Small pleural effusions and cardiomegaly or congestive heart failure. No current pulmona ry vascular congestion. Retrocardiac and left perihilar airspace disease may represent confluent pulm onary edema or pneumonia.
--- NOTE | 2019-01-18 09:38 | P.GSCN ---
History of Present Illness Consult date: 01/18/19 History of present illness: The patient is a 78-year-old gentleman status post coronary artery bypass graft in early December. He was eventually discharged to [facility]. Subsequently Has been at home living with his brother when he developed severe left knee pain. He also apparently has a pleural effusion. He came back in the hospital. The patient had postoperative urinary retention from his bypass graft and is remained in retention. He has had 2 voiding trials. He saw recently and was to have his catheter removed and see Dr. Brand in the office this afternoon but ended up in the hospital. He still has indwelling catheter. He has been on tamsulosin. He denies problems voiding prior to his urine retention postoperatively. Review of Systems All systems: negative (For what is noted in the history and physical) Past Medical History Past Medical History: Atrial Flutter, Coronary Artery Disease (CAD), Heart Failure, Diabetes Mellitus, GERD/Reflux, Hyperlipidemia, Hypertension, Myocardial Infarction ([place]), Osteoarthritis (OA), Prostate Disorder Additional Past Medical History / Comment(s): edema in legs with open blisters now being treated by homecare RN, subacute [place] requiring CABG surgery Last Myocardial Infarction Date:: 12/08/18 History of Any Multi-Drug Resistant Organisms: None Reported Past Surgical History: Appendectomy, Coronary Bypass/CABG, Heart Catheterization With Stent Additional Past Surgical History / Comment(s): cataract removal, 4 vessel CABG surgery 12/08/18 Past Anesthesia/Blood Transfusion Reactions: No Reported Reaction Date of Last Stent Placement:: unsure Past Psychological History: No Psychological Hx Reported Additional Psychological History / Comment(s): Single. No children. No pets. Remote tobacco use. No international travel since his experience. Worked on [employer] Smoking Status: Former smoker Past Alcohol Use History: None Reported Additional Past Alcohol Use History / Comment(s): quit drinking 1974 Past Drug Use History: None Reported - Past Family History Mother Family Medical History: Myocardial Infarction ([place]) Additional Family Medical History / Comment(s): age 64 Medications and Allergies Home Medications Medication Instructions Recorded Confirmed Type Ascorbic Acid [Vitamin C] 500 mg PO BID-W/MEALS tab 12/20/18 01/16/19 Rx Ferrous Sulfate [Iron (65 MG 325 mg PO DAILY tab 12/20/18 01/16/19 Rx Elemental)] Metoprolol Tartrate [Lopressor] 25 mg PO BID tab 12/20/18 01/16/19 Rx Apixaban [Eliquis] 5 mg PO DAILY 01/13/19 01/16/19 History Insulin Glargine [Lantus] 10 unit SQ HS 01/13/19 01/16/19 History Melatonin 3 mg PO HS 01/13/19 01/16/19 History Metolazone [Zaroxolyn] 2.5 mg PO DAILY 01/13/19 01/16/19 History Rosuvastatin Calcium [Crestor] 40 mg PO HS 01/13/19 01/16/19 History Tamsulosin [Flomax] 0.4 mg PO BID 01/13/19 01/16/19 History Aspirin EC [Ecotrin Low Dose] 81 mg PO HS 01/16/19 01/16/19 History Furosemide [Lasix] 40 mg PO BID 01/16/19 01/16/19 History INSULIN LISPRO (humaLOG) [humaLOG] See Protocol SQ AC-TID 01/16/19 01/16/19 History hydrALAZINE HCL [Apresoline] 25 mg PO BID 01/16/19 01/16/19 History Allergies Allergy/AdvReac Type Severity Reaction Status Date / Time No Known Allergies Allergy Verified 01/16/19 14:36 Surgical - Exam Vital Signs Temp Pulse Resp BP Pulse Ox 98.4 F 81 20 108/62 96 01/16/19 14:14 01/16/19 14:14 01/16/19 14:14 01/16/19 14:14 01/16/19 14:14 - General well developed, well nourished, no distress - Eyes PERRL - ENT decreased hearing - Neck trachea midline - Respiratory normal expansion, normal respiratory effort - Cardiovascular Rhythm: regular - Abdomen Abdomen: soft, non tender - Genitourinary Indwelling catheter with normal genitalia. - Integumentary His lower extremities are wrapped in gauze and elastic dressings. This is below the knee bilaterally - Musculoskeletal normal posture - Psychiatric oriented to time, oriented to person, oriented to place, speech is normal, memory intact Results - Labs 01/18/19 06:54 01/18/19 06:54 Abnormal Lab Results - Last 24 Hours (Table) 01/17/19 01/17/19 01/17/19 Range/Units 15:30 16:53 20:33 WBC 15.6 H (3.8-10.6) k/uL RBC 3.87 L (4.30-5.90) m/uL Hgb 10.2 L (13.0-17.5) gm/dL Hct 33.1 L (39.0-53.0) % MCHC 30.8 L (31.0-37.0) g/dL RDW 16.2 H (11.5-15.5) % Neutrophils # 13.3 H (1.3-7.7) k/uL Lymphocytes # 0.6 L (1.0-4.8) k/uL APTT (22.0-30.0) sec Sodium (137-145) mmol/L Potassium (3.5-5.1) mmol/L Chloride (98-107) mmol/L Carbon Dioxide (22-30) mmol/L BUN (9-20) mg/dL Creatinine (0.66-1.25) mg/dL POC Glucose (mg/dL) 105 H 163 H (75-99) mg/dL Calcium (8.4-10.2) mg/dL 01/18/19 01/18/19 01/18/19 Range/Units 02:05 05:42 06:54 WBC 14.0 H (3.8-10.6) k/uL RBC 3.57 L (4.30-5.90) m/uL Hgb 9.5 L (13.0-17.5) gm/dL Hct 30.2 L (39.0-53.0) % MCHC (31.0-37.0) g/dL RDW 16.0 H (11.5-15.5) % Neutrophils # 11.9 H (1.3-7.7) k/uL Lymphocytes # 0.5 L (1.0-4.8) k/uL APTT 46.4 H (22.0-30.0) sec Sodium (137-145) mmol/L Potassium (3.5-5.1) mmol/L Chloride (98-107) mmol/L Carbon Dioxide (22-30) mmol/L BUN (9-20) mg/dL Creatinine (0.66-1.25) mg/dL POC Glucose (mg/dL) 67 L (75-99) mg/dL Calcium (8.4-10.2) mg/dL 01/18/19 Range/Units 06:54 WBC (3.8-10.6) k/uL RBC (4.30-5.90) m/uL Hgb (13.0-17.5) gm/dL Hct (39.0-53.0) % MCHC (31.0-37.0) g/dL RDW (11.5-15.5) % Neutrophils # (1.3-7.7) k/uL Lymphocytes # (1.0-4.8) k/uL APTT (22.0-30.0) sec Sodium 136 L (137-145) mmol/L Potassium 3.4 L (3.5-5.1) mmol/L Chloride 94 L (98-107) mmol/L Carbon Dioxide 36 H (22-30) mmol/L BUN 57 H (9-20) mg/dL Creatinine 1.73 H (0.66-1.25) mg/dL POC Glucose (mg/dL) (75-99) mg/dL Calcium 7.8 L (8.4-10.2) mg/dL Microbiology - Last 24 Hours (Table) 01/16/19 15:35 Blood Culture - Preliminary Blood No Growth after 24 hours 01/16/19 21:11 Gram Stain - Preliminary Leg - Right Wound Culture - Preliminary Gram Neg Bacilli 01/16/19 21:11 Gram Stain - Preliminary Leg - Left Wound Culture - Preliminary Gram Neg Bacilli Diabetes panel 01/18/19 Range/Units 06:54 Sodium 136 L (137-145) mmol/L Potassium 3.4 L (3.5-5.1) mmol/L Chloride 94 L (98-107) mmol/L Carbon Dioxide 36 H (22-30) mmol/L BUN 57 H (9-20) mg/dL Creatinine 1.73 H (0.66-1.25) mg/dL Glucose 93 (74-99) mg/dL Calcium 7.8 L (8.4-10.2) mg/dL Calcium panel 01/18/19 Range/Units 06:54 Calcium 7.8 L (8.4-10.2) mg/dL Pituitary panel 01/18/19 Range/Units 06:54 Sodium 136 L (137-145) mmol/L Potassium 3.4 L (3.5-5.1) mmol/L Chloride 94 L (98-107) mmol/L Carbon Dioxide 36 H (22-30) mmol/L BUN 57 H (9-20) mg/dL Creatinine 1.73 H (0.66-1.25) mg/dL Glucose 93 (74-99) mg/dL Calcium 7.8 L (8.4-10.2) mg/dL Adrenal panel 01/18/19 Range/Units 06:54 Sodium 136 L (137-145) mmol/L Potassium 3.4 L (3.5-5.1) mmol/L Chloride 94 L (98-107) mmol/L Carbon Dioxide 36 H (22-30) mmol/L BUN 57 H (9-20) mg/dL Creatinine 1.73 H (0.66-1.25) mg/dL Glucose 93 (74-99) mg/dL Calcium 7.8 L (8.4-10.2) mg/dL Assessment and Plan Assessment: Impression: Postoperative urinary retention. Recommendations: The patient should have a voiding trial prior to being discharged. The patient states that he is having thoracentesis tomorrow. He preferred leave the catheter in until after that. I will notify of his admission.
[2019-01-18 11:41] LABS: Glucose,Whole Blood 142 mg/dL (75-99)
--- NOTE | 2019-01-18 11:59 | P.PN ---
Subjective Progress Note Date: 01/18/19 This is a pleasant 78-year-old gentleman who has a known history of coronary artery disease, most recently presented to the hospital with non-ST elevation ND in November of this year, at which time he underwent coronary artery bypass grafting surgery with a GONZALEZ to the LAD, reverse saphenous vein graft from the aorta to the first diagonal, first saphenous vein graft from the aorta to the first obtuse marginal, reverse saphenous vein graft from the aorta to the distal PDA, prior to that patient did have LAD stenting in 2004, history of hypertension, diabetes, hyperlipidemia, paroxysmal atrial fibrillation, and known bilateral ulcerations of his legs. He presents to the hospital on this occasion with symptoms of significant bilateral knee pain, left knee greater than the right. Patient also has been quite short of breath at home, he states that he went to the pulmonary office recently and was found to have fluid in his lungs, he was scheduled as an outpatient to undergo thoracentesis. During his hospitalization for his surgery he did have a thoracentesis performed on 2 separate occasions. Chest x-ray performed this admission revealed continued small bilateral pleural effusions with adjacent atelectasis and/or consolidation. X-ray of the knee on the left side showed soft tissue swelling with peripheral vascular occlusive disease. Blood pressure 104/56, low-grade temperature of 99.6, heart rate in the 90s. 97% oxygenation on room air. White blood cell count 15.6, hemoglobin 9.5, platelet count 210. Sodium 137, potassium 3.1, BUN 53 and creatinine 1.5. At the time of my examination this morning, patient is resting comfortably in bed, he does feel somewhat short of breath, and is having significant discomfort below the left knee. 01/18/2019 Patient was seen and examined this morning, does state that he feels his breathing is a little bit better today, he continues to have significant pain in his left knee. Patient was seen in consultation by pulmonary service yesterday, his anticoagulation is on hold and the plan is to proceed with a right-sided thoracentesis tomorrow. Blood pressure 94/50 with a heart rate in the 90s, 94% on room air. White blood cell count 14, hemoglobin 9.5, platelet count 236. Sodium 136, potassium 3.4, BUN 57 and creatinine 1.7. Objective - Vital Signs Vital signs: Vital Signs Temp 98 F 01/18/19 11:03 Pulse 74 01/18/19 11:03 Resp 18 01/18/19 11:03 BP 92/56 01/18/19 11:03 Pulse Ox 94 L 01/18/19 11:03 Intake & Output 01/17/19 01/18/19 01/18/19 18:59 06:59 18:59 Intake Total 400 200 Output Total 1400 Balance 400 -1400 200 Weight 82.8 kg Intake: Oral 400 200 Output: Urine 1400 Uretheral (Torres) 450 Other: Voiding Method Incontinent Incontinent Incontinent # Voids 1 - Exam PHYSICAL EXAMINATION: GENERAL: 78-year-old gentleman in no acute distress at the time of my examination HEENT: Head is atraumatic, normocephalic. Pupils equal, round. Sclera anicteric. Conjunctiva are clear. Mucous membranes of the mouth are moist. Neck is supple. There is no elevated jugular venous pressure. No carotid bruit is heard. HEART EXAMINATION: Heart S1-S2 irregularly irregular systolic murmur is heard CHEST EXAMINATION: Lungs reveal scattered coarse rhonchi throughout with diminished air entry to the bases bilaterally, midline chest incision clean and dry with mild redness noted ABDOMEN: Soft, nontender. Bowel sounds are heard. No organomegaly noted. EXTREMITIES: 1+ peripheral pulses to the lower extremities with bilateral edema, significant ulceration noted on the inner right leg just below the knee, on the left leg patient also has a significant ulceration noted on the medial part of the left leg below the knee, significant erythema present as well as significant tenderness. Ecchymosis noted to the bilateral lower extremities. NEUROLOGIC patient is awake, alert and oriented 3 . - Labs CBC & Chem 7: 01/18/19 06:54 01/18/19 06:54 Labs: Abnormal Lab Results - Last 24 Hours (Table) 01/17/19 01/17/19 01/17/19 Range/Units 15:30 16:53 20:33 WBC 15.6 H (3.8-10.6) k/uL RBC 3.87 L (4.30-5.90) m/uL Hgb 10.2 L (13.0-17.5) gm/dL Hct 33.1 L (39.0-53.0) % MCHC 30.8 L (31.0-37.0) g/dL RDW 16.2 H (11.5-15.5) % Neutrophils # 13.3 H (1.3-7.7) k/uL Lymphocytes # 0.6 L (1.0-4.8) k/uL APTT (22.0-30.0) sec Sodium (137-145) mmol/L Potassium (3.5-5.1) mmol/L Chloride (98-107) mmol/L Carbon Dioxide (22-30) mmol/L BUN (9-20) mg/dL Creatinine (0.66-1.25) mg/dL POC Glucose (mg/dL) 105 H 163 H (75-99) mg/dL Calcium (8.4-10.2) mg/dL 01/18/19 01/18/19 01/18/19 Range/Units 02:05 05:42 06:54 WBC 14.0 H (3.8-10.6) k/uL RBC 3.57 L (4.30-5.90) m/uL Hgb 9.5 L (13.0-17.5) gm/dL Hct 30.2 L (39.0-53.0) % MCHC (31.0-37.0) g/dL RDW 16.0 H (11.5-15.5) % Neutrophils # 11.9 H (1.3-7.7) k/uL Lymphocytes # 0.5 L (1.0-4.8) k/uL APTT 46.4 H (22.0-30.0) sec Sodium (137-145) mmol/L Potassium (3.5-5.1) mmol/L Chloride (98-107) mmol/L Carbon Dioxide (22-30) mmol/L BUN (9-20) mg/dL Creatinine (0.66-1.25) mg/dL POC Glucose (mg/dL) 67 L (75-99) mg/dL Calcium (8.4-10.2) mg/dL 01/18/19 01/18/19 Range/Units 06:54 11:20 WBC (3.8-10.6) k/uL RBC (4.30-5.90) m/uL Hgb (13.0-17.5) gm/dL Hct (39.0-53.0) % MCHC (31.0-37.0) g/dL RDW (11.5-15.5) % Neutrophils # (1.3-7.7) k/uL Lymphocytes # (1.0-4.8) k/uL APTT (22.0-30.0) sec Sodium 136 L (137-145) mmol/L Potassium 3.4 L (3.5-5.1) mmol/L Chloride 94 L (98-107) mmol/L Carbon Dioxide 36 H (22-30) mmol/L BUN 57 H (9-20) mg/dL Creatinine 1.73 H (0.66-1.25) mg/dL POC Glucose (mg/dL) 142 H (75-99) mg/dL Calcium 7.8 L (8.4-10.2) mg/dL Microbiology - Last 24 Hours (Table) 01/16/19 15:35 Blood Culture - Preliminary Blood No Growth after 24 hours 01/16/19 21:11 Gram Stain - Preliminary Leg - Right Wound Culture - Preliminary Gram Neg Bacilli 01/16/19 21:11 Gram Stain - Preliminary Leg - Left Wound Culture - Preliminary Gram Neg Bacilli Assessment and Plan Plan: Assessment and plan #1 bilateral knee discomfort with possible cellulitis and evidence of signifi cant ulcerations bilaterally, elevated white blood cell count #2 bilateral pleural effusion #3 recent coronary artery bypass grafting surgery in November #4 atrial flutter with controlled ventricular response, typical #5 diabetes #6 hypertension #7 hyperlipidemia #8 remote history of nicotine dependence #9 mild renal insufficiency #10 hypokalemia Plan Anticoagulation is currently on hold, patient is scheduled tomorrow to undergo right-sided thoracentesis. Echo did not reveal any pericardial effusion, it did reveal pleural effusion with fibrin. Hemodynamically stable. DNP note has been reviewed, I agree with a documented findings and plan of care. Patient was seen and examined.
[2019-01-18] MEDS: DAPTOmycin 500 MG in SODIUM CHLORIDE 0.9% 50 ML IVPB SCH (13:47)
--- NOTE | 2019-01-18 15:04 | P.PN ---
Subjective Progress Note Date: 01/18/19 Principal diagnosis: Bilateral pleural effusions, right greater than the left This is 78-year-old white male patient of Saida Roman PA-C, from the [facility], who recently had a non-ST elevated myocardial infarction, and underwent four-vessel coronary artery bypass grafting using the left internal mammary artery to the LAD, reverse SVG to the diagonal, reverse SVG to the OM 1, and to the distal branch of the circumflex artery, bilateral pulmonary vein isolation using radiofrequency and AtriCure clamp, and left atrial appendage exclusion, on 12/20/[address] Rivero. Patient also had a right-sided pleural effusion with thoracentesis and removal of 900 mL of transudative pleural fluid with negative cytology. Medical history includes coronary artery disease with previous stents to the LAD in 2004, and previous myocardial infarction, paroxysmal atrial flutter status post cardioversion on long-term anticoagulation with Eliquis, hypertension, hyperlipidemia, uncontrolled diabetes mellitus, peripheral artery disease, chronic venous stasis ulcers to the right lower extremity, benign prostatic hypertrophy. Following his surgery patient was discharged to inpatient rehab on postoperative day 12, where he continued to work with physical, occupational and cardiac rehab. Patient was seen in follow-up by Dr. Bull the pulmonary clinic on 01/13/2019 for hospital follow-up, and patient was mildly short of breath, but no fever or chills, requiring any oxygen, and was noted to have increasing pleural effusions, and he was ordered to have follow-up outpatient chest ultrasound and outpatient thoracentesis by interventional radiology. However patient came into the hospital instead on 01/16/2019 with complaints of left knee pain, and developing blister on the left lower extremity near medial left knee over the past 2 weeks, which started to drain. Patient states the left lower leg is very tender to palpation. Admits to occasional chills. Denied any fever or night sweats. Physical exam reveals ulceration of the lateral aspect of left lower leg and the medial proximal area just distal to the knee and a lot of tenderness to palpation, with drainage of purulent material and warmth to palpation. Left leg was the harvest site for the venous graft. She also had significant leukocytosis consistent with infection. Patient denies any shortness of breath, or chest pain. Lactic acid was within normal limits, she was started on IV antibiotics with ceftriaxone and vancomycin, infectious disease service was consulted, and we're consulted in regards to bilateral pleural effusions On 01/18/2017 patient seen in follow-up on selective care unit, he is resting in bed, in no acute distress, he is on room air, room air pulse ox is 94%, afebrile, hemodynamically stable, ID service is following. There is to lower extremity cellulitis, and patient on Zosyn, and daptomycin. She continues on diuretics, he is on Zaroxolyn, oral Lasix. He is in no acute distress, no use of respiratory muscles of breathing, he states he is slightly dyspneic with exertion, but no acute distress, lung sounds reveal diminished breath sounds at the bases, right greater than the left, he is on heparin drip, his Eliquis is on hold, for possibility of right-sided thoracentesis likely tomorrow or in the next 48 hours. Today's chest x-ray was reviewed and showed small pleural effusions, cardiomegaly and congestive heart failure Objective - Vital Signs Vital signs: Vital Signs Temp 98 F 01/18/19 11:03 Pulse 74 01/18/19 12:00 Resp 18 01/18/19 11:03 BP 92/56 01/18/19 11:03 Pulse Ox 94 L 01/18/19 11:03 Intake & Output 01/17/19 01/18/19 01/18/19 18:59 06:59 18:59 Intake Total 400 200 Output Total 1400 Balance 400 -1400 200 Weight 82.8 kg Intake: Oral 400 200 Output: Urine 1400 Uretheral (Torres) 450 Other: Voiding Method Incontinent Incontinent Incontinent # Voids 1 - Exam GENERAL EXAM: Alert, pleasant, 78-year-old white male on room air, with a pulse ox of 100%, comfortable in no apparent distress. HEAD: Normocephalic/atraumatic. EYES: Normal reaction of pupils, equal size. Conjunctiva pink, sclera white. NOSE: Clear with pink turbinates. THROAT: No erythema or exudates. NECK: No masses, no JVD, no thyroid enlargement, no adenopathy. CHEST: No chest wall deformity. Symmetrical expansion. LUNGS: Equal air entry with scattered coarse rhonchi, diminished air entry at th e bases CVS: Regular rate and rhythm, normal S1 and S2, no gallops, no murmurs, no rubs ABDOMEN: Soft, nontender. No hepatosplenomegaly, normal bowel sounds, no guarding or rigidity. EXTREMITIES: No clubbing, no cyanosis, 2+ pulses and upper and lower extremities. Bilateral lower extremity edema, ulcerations on the medial part of the left leg, with significant tenderness, ecchymosis noted to bilateral lower extremities MUSCULOSKELETAL: Muscle strength and tone normal. SPINE: No scoliosis or deformity SKIN: No rashes CENTRAL NERVOUS SYSTEM: Alert and oriented -3. No focal deficits, tone is normal in all 4 extremities. PSYCHIATRIC: Alert and oriented -3. Appropriate affect. Intact judgment and insight. - Labs CBC & Chem 7: 01/18/19 06:54 01/18/19 06:54 Labs: Abnormal Lab Results - Last 24 Hours (Table) 01/17/19 01/17/19 01/17/19 Range/Units 15:30 16:53 20:33 WBC 15.6 H (3.8-10.6) k/uL RBC 3.87 L (4.30-5.90) m/uL Hgb 10.2 L (13.0-17.5) gm/dL Hct 33.1 L (39.0-53.0) % MCHC 30.8 L (31.0-37.0) g/dL RDW 16.2 H (11.5-15.5) % Neutrophils # 13.3 H (1.3-7.7) k/uL Lymphocytes # 0.6 L (1.0-4.8) k/uL APTT (22.0-30.0) sec Sodium (137-145) mmol/L Potassium (3.5-5.1) mmol/L Chloride (98-107) mmol/L Carbon Dioxide (22-30) mmol/L BUN (9-20) mg/dL Creatinine (0.66-1.25) mg/dL POC Glucose (mg/dL) 105 H 163 H (75-99) mg/dL Calcium (8.4-10.2) mg/dL 01/18/19 01/18/19 01/18/19 Range/Units 02:05 05:42 06:54 WBC 14.0 H (3.8-10.6) k/uL RBC 3.57 L (4.30-5.90) m/uL Hgb 9.5 L (13.0-17.5) gm/dL Hct 30.2 L (39.0-53.0) % MCHC (31.0-37.0) g/dL RDW 16.0 H (11.5-15.5) % Neutrophils # 11.9 H (1.3-7.7) k/uL Lymphocytes # 0.5 L (1.0-4.8) k/uL APTT 46.4 H (22.0-30.0) sec Sodium (137-145) mmol/L Potassium (3.5-5.1) mmol/L Chloride (98-107) mmol/L Carbon Dioxide (22-30) mmol/L BUN (9-20) mg/dL Creatinine (0.66-1.25) mg/dL POC Glucose (mg/dL) 67 L (75-99) mg/dL Calcium (8.4-10.2) mg/dL 01/18/19 01/18/19 Range/Units 06:54 11:20 WBC (3.8-10.6) k/uL RBC (4.30-5.90) m/uL Hgb (13.0-17.5) gm/dL Hct (39.0-53.0) % MCHC (31.0-37.0) g/dL RDW (11.5-15.5) % Neutrophils # (1.3-7.7) k/uL Lymphocytes # (1.0-4.8) k/uL APTT (22.0-30.0) sec Sodium 136 L (137-145) mmol/L Potassium 3.4 L (3.5-5.1) mmol/L Chloride 94 L (98-107) mmol/L Carbon Dioxide 36 H (22-30) mmol/L BUN 57 H (9-20) mg/dL Creatinine 1.73 H (0.66-1.25) mg/dL POC Glucose (mg/dL) 142 H (75-99) mg/dL Calcium 7.8 L (8.4-10.2) mg/dL Microbiology - Last 24 Hours (Table) 01/16/19 15:35 Blood Culture - Preliminary Blood No Growth after 24 hours 01/16/19 21:11 Gram Stain - Preliminary Leg - Right Wound Culture - Preliminary Gram Neg Bacilli 01/16/19 21:11 Gram Stain - Preliminary Leg - Left Wound Culture - Preliminary Gram Neg Bacilli Assessment and Plan Plan: Assessment: #1. Left leg cellulitis #2. Bilateral pleural effusions, right greater than the left #3. Acute kidney injury likely related to ATN #4. Recent non-ST elevated myocardial infarction in December 2018 #5. Triple-vessel coronary artery disease, status post four-vessel bypass, with radiofrequency ablation of the pulmonary artery, and exclusion of the left atrial appendix #6. Paroxysmal atrial flutter status post cardioversion, on Eliquis #7. Chronic congestive heart failure with systolic dysfunction #8. Type 2 diabetes mellitus #9. Hypertension #10. Hyperlipidemia #11. History of previous coronary artery disease and previous PCI, and previous episode of myocardial infarction Plan: Continue with heparin drip, continue holding Eliquis, continue oral diuretics, will consider a right-sided thoracentesis in next 24-48 hours. Clinically patient denies a distress, no chest pain, he still mildly dyspneic with exe rtion, continue good oxygenation on room air. I performed a history & physical examination of the patient and discussed their management with my nurse practitioner, Demetria Ramos. I reviewed the nurse practitioner's note and agree with the documented findings and plan of care. Lung sounds are positive for diminished breath sounds at the bases. The findings and the impression was discussed with the patient. I attest to the documentation by the nurse practitioner. Time with Patient: Less than 30
--- NOTE | 2019-01-18 15:13 | P.PN ---
Subjective Progress Note Date: 01/18/19 Principal diagnosis: Medical history significant for severe triple-vessel coronary artery disease with non-STEMI, status post quadruple coronary artery bypass grafting surgery on 12/08/2018, acute on chronic systolic and diastolic heart failure with an ejection fraction 40-45%, moderate left ventricular systolic function with [id number] mitral valve regurgitation, history of right sided pleural effusion status post thoracentesis with 900 mL of drainage and dated fluid d rained on 12/02/2018, history of coronary artery disease with previous stents to his left anterior descending coronary artery in 2004, recent diagnosis of persistent paroxysmal atrial fibrillation status post cardioversion and is on eliquis for anticoagulation, hypertension, hyperlipidemia, uncontrolled diabetes mellitus with recent hemoglobin A1c of 7.8%, severe COPD with a recent FEV1 47% of predicted value, peripheral arterial disease, chronic venous stasis ulcers to his right lower extremity, and prostate disorder. The patient is lying in bed on the 3 S. cardiac stepdown unit. He is in no acute distress. He remains complaining of left knee pain, although he states that the pain has decreased some today. He reports that he is having some shortness of breath and no different than the usual day. He is currently on a heparin drip and his Eliquis is on hold for possible right-sided thoracentesis. His WBC count has improved today and is 14. Dr. Eldridge is involved in the patient's care with recommendations on antibiotics and localized wound care. Objective - Vital Signs Vital signs: Vital Signs Temp 98 F 01/18/19 11:03 Pulse 74 01/18/19 12:00 Resp 18 01/18/19 11:03 BP 92/56 01/18/19 11:03 Pulse Ox 94 L 01/18/19 11:03 Intake & Output 01/17/19 01/18/19 01/18/19 18:59 06:59 18:59 Intake Total 400 200 Output Total 1400 Balance 400 -1400 200 Weight 82.8 kg Intake: Oral 400 200 Output: Urine 1400 Uretheral (Torres) 450 Other: Voiding Method Incontinent Incontinent Incontinent # Voids 1 - Constitutional General appearance: Present: cooperative, no acute distress, obese - Respiratory Details: Lung sounds with scattered crackles to his bilateral upper lobes, diminished bilateral bases. Respirations are symmetrical and nonlabored. Oxygen saturation are 94% on room air. - Cardiovascular Details: Regular rhythm and rate. S1 and S2 present, negative for S3, gallop. 1/6 systolic murmur present. +1 generalized edema. Knee-high Gianni wraps in place to his bilateral lower extremities. Remote telemetry showing normal sinus rhythm heart rate 91. - Gastrointestinal Gastrointestinal Comment(s): Abdomen is soft, nontender nondistended. Active bowel sounds all 4 abdominal quadrants. No guarding or rigidity. No organomegaly. Tolerating oral intake. - Genitourinary Genitourinary Comment(s): Torres catheter for accurate I&O and history of urinary retention. Draining clear tom urine. - Integumentary Integumentary Comment(s): Skin is warm and dry. No clubbing or cyanosis is present. Few scattered ecchymotic areas to his bilateral upper extremities. Left lower extremity with ulceration to his left lateral lower extremity. Chronic venous stasis ulcer to his right lower extremity. Midline sternal incision is clean, dry and approximated. No drainage or redness was present. Bilateral lower extremity EVH sites clean, dry and approximated. Some surrounding redness to his left lower extremity EVH site, tender to touch. - Neurologic Neurologic: Present: CNII-XII intact - Musculoskeletal Musculoskeletal Comment(s): Weakness to his left lower extremity due to complaints of left knee pain. Musculoskeletal: Present: gait normal, generalized weakness, strength equal bilaterally - Psychiatric Psychiatric: Present: A&O x's 3, appropriate affect, intact judgment & insight - Allied health notes Allied health notes reviewed: nursing (A) - Labs CBC & Chem 7: 01/18/19 06:54 01/18/19 06:54 Labs: Abnormal Lab Results - Last 24 Hours (Table) 01/17/19 01/17/19 01/17/19 Range/Units 15:30 16:53 20:33 WBC 15.6 H (3.8-10.6) k/uL RBC 3.87 L (4.30-5.90) m/uL Hgb 10.2 L (13.0-17.5) gm/dL Hct 33.1 L (39.0-53.0) % MCHC 30.8 L (31.0-37.0) g/dL RDW 16.2 H (11.5-15.5) % Neutrophils # 13.3 H (1.3-7.7) k/uL Lymphocytes # 0.6 L (1.0-4.8) k/uL APTT (22.0-30.0) sec Sodium (137-145) mmol/L Potassium (3.5-5.1) mmol/L Chloride (98-107) mmol/L Carbon Dioxide (22-30) mmol/L BUN (9-20) mg/dL Creatinine (0.66-1.25) mg/dL POC Glucose (mg/dL) 105 H 163 H (75-99) mg/dL Calcium (8.4-10.2) mg/dL 01/18/19 01/18/19 01/18/19 Range/Units 02:05 05:42 06:54 WBC 14.0 H (3.8-10.6) k/uL RBC 3.57 L (4.30-5.90) m/uL Hgb 9.5 L (13.0-17.5) gm/dL Hct 30.2 L (39.0-53.0) % MCHC (31.0-37.0) g/dL RDW 16.0 H (11.5-15.5) % Neutrophils # 11.9 H (1.3-7.7) k/uL Lymphocytes # 0.5 L (1.0-4.8) k/uL APTT 46.4 H (22.0-30.0) sec Sodium (137-145) mmol/L Potassium (3.5-5.1) mmol/L Chloride (98-107) mmol/L Carbon Dioxide (22-30) mmol/L BUN (9-20) mg/dL Creatinine (0.66-1.25) mg/dL POC Glucose (mg/dL) 67 L (75-99) mg/dL Calcium (8.4-10.2) mg/dL 01/18/19 01/18/19 Range/Units 06:54 11:20 WBC (3.8-10.6) k/uL RBC (4.30-5.90) m/uL Hgb (13.0-17.5) gm/dL Hct (39.0-53.0) % MCHC (31.0-37.0) g/dL RDW (11.5-15.5) % Neutrophils # (1.3-7.7) k/uL Lymphocytes # (1.0-4.8) k/uL APTT (22.0-30.0) sec Sodium 136 L (137-145) mmol/L Potassium 3.4 L (3.5-5.1) mmol/L Chloride 94 L (98-107) mmol/L Carbon Dioxide 36 H (22-30) mmol/L BUN 57 H (9-20) mg/dL Creatinine 1.73 H (0.66-1.25) mg/dL POC Glucose (mg/dL) 142 H (75-99) mg/dL Calcium 7.8 L (8.4-10.2) mg/dL Microbiology - Last 24 Hours (Table) 01/16/19 15:35 Blood Culture - Preliminary Blood No Growth after 24 hours 01/16/19 21:11 Gram Stain - Preliminary Leg - Right Wound Culture - Preliminary Gram Neg Bacilli 01/16/19 21:11 Gram Stain - Preliminary Leg - Left Wound Culture - Preliminary Gram Neg Bacilli - Imaging and Cardiology Chest x-ray: report reviewed, image reviewed Assessment and Plan Assessment: 1. Chronic venous stasis ulcer to his right lower extremity 2. Cellulitis to his left lower extremity, left knee pain 3. Leukocytosis 4. Chronic kidney disease stage III 5. Coronary artery disease status post coronary artery bypass grafting surgery 6. History of non-STEMI 7. Acute on chronic systolic and diastolic congestive heart failure 8. History of atrial flutter 9. Diabetes mellitus type 2, uncontrolled 10. Hypertension 11. Hyperlipidemia 12. Gastroesophageal reflux disease 13. Osteoarthritis 14. History of prostate disorder, Torres catheter in place 15. Remote history of nicotine dependence 16. History of right pleural effusion status post thoracentesis 17. Peripheral vascular disease Plan: 1. Continue aspirin, statin and beta alfred. 2. Heparin drip management per cardiology. 3. Encourage incentive spirometry use 10 times every hour while awake. 4. Will monitor labs, chest x-rays. Electrolyte replacement per protocol. 5. Pain control with current medication regimen. 6. Medical and Insulin management per primary care service 7. Increase activity, ambulate as tolerated. PT/OT/cardiac rehab following. 8. Bronchodilators per pulmonology. 9. GI/DVT prophylaxis. 10. case management social worker has been consulted for possible need for subacute rehab placement upon discharge. 13. Local wound care and antibiotic management per infectious disease. 14. More recommendations to follow based on patient's clinical course. Time with Patient: Greater than 30
--- NOTE | 2019-01-18 15:55 | PN ---
PROGRESS NOTE DATE OF SERVICE: 01/17/2019 This 78-year-old gentleman who was admitted with bilateral leg ulcers also was found to have bilateral pleural effusion. A chest ultrasound was also done today which showed significant effusion on the right side. Pulmonary is following the patient closely. Patient also has leg cellulitis. Patient is on broad-spectrum IV antibiotics. Cultures are pending at this time. Past medical history reviewed. REVIEW OF SYSTEMS: CARDIOVASCULAR SYSTEM: As mentioned earlier. RESPIRATORY SYSTEM: As mentioned earlier. GI: No nausea, vomiting. : No dysuria or retention. NERVOUS SYSTEM: No numbness, weakness. CURRENT MEDICATIONS: Reviewed. They include: 1. Tylenol 500 mg q.6 p.r.n. 2. [place] 5 mg q.6 p.r.n. 3. Xanax 0.25 t.i.d. 4. Vitamin C 500 mg b.i.d. with meals. 5. Aspirin 81 mg. 6. Lipitor 80 mg. 7. Daptomycin 500 mg. 8. Heparin. 9. Apresoline 25 mg p.o. b.i.d. 10.Dilaudid 0.5 mg q.3 p.r.n. 11.NovoLog. 12.Levemir 10 units subcutaneously at bedtime. 13.Melatonin 3 mg at bedtime. 14.Zaroxolyn 2.5 mg daily. 15.Lopressor 25 mg p.o. daily. 16.Multivitamins. 17.Narcan 0.2 q.2 p.r.n. 18.Protonix 40 mg p.o. daily. 19.Zosyn 3.375 IV q.8. PHYSICAL EXAMINATION: Patient is alert, oriented x3. The pulse is 91, blood pressure 123/62, respiration 18, temperature 97.2, pulse ox 94% on room air. HEENT: Conjunctivae normal. NECK: Jugular venous distention at the root of the neck. CARDIOVASCULAR SYSTEM: S1, S2 muffled. Ejection systolic murmur present. RESPIRATORY SYSTEM: Breath sounds diminished at the bases. A few scattered rhonchi and crackles. ABDOMEN: Soft, non-tender. LEGS: Bilateral leg edema. Bilateral leg ulcers. NERVOUS SYSTEM: No focal deficit. LABS: WBC 15.6, hemoglobin 10.2, and glucose is 105, 84. ASSESSMENT: 1. Bilateral leg ulcers with cellulitis with right severe pain with failure of outpatient treatment. 2. Increased white count. 3. Anemia, normocytic; undetermined etiology. 4. Left knee pain for evaluation. 5. Bilateral pleural effusion, right more than the left. 6. Increased creatinine, chronic kidney disease, stage III. 7. History of recent recent coronary artery disease, coronary artery bypass grafting. 8. History of congestive heart failure. 9. History of atrial flutter. 10.Diabetes mellitus, type 2. 11.Gastroesophageal reflux disease. 12.Hypertension. 13.Hyperlipidemia. 14.History of myocardial infarction. 15.History of degenerative joint disease. 16.History of prostate disorder. 17.History of coronary artery disease, coronary artery bypass grafting, stent. 18.Remote history of nicotine dependence. 19.FULL CODE. RECOMMENDATIONS AND DISCUSSION: In this 78-year-old gentleman who presented with multiple medical issues, at this time I recommend continuing the current medication, continued symptomatic treatment. I would recommend continuing with IV antibiotics. Follow the cultures. Monitor closely with Pulmonary and Cardiology. Guarded prognosis because of multiple complex medical issues. Further recommendations to follow. White count is still elevated. MMODL / IJN: [id number] /
--- NOTE | 2019-01-18 16:16 | PN ---
PROGRESS NOTE DATE OF SERVICE: This 78-year-old gentleman who was admitted with multiple medical problems, including bilateral leg ulcers, also had pleural effusion. Dr. Bull is following the patient closely. The patient had ultrasound of the chest yesterday. Ultrasound showed right pleural effusion about 7.4 cm and left pleural effusion of 4.7 cm. Thoracocentesis is being planned at this time. The patient is on broad-spectrum IV antibiotics. Patient was started on daptomycin. Multiple consultants are following the patient closely, including Dr. Bull and Dr. Eldridge as well as Dr. Rivero and Cardiology. Urology has also seen the patient for urinary retention. Past medical history reviewed. REVIEW OF SYSTEMS: CARDIOVASCULAR SYSTEM: No angina, palpitations. RESPIRATORY SYSTEM: As mentioned earlier. GI: No nausea, vomiting. : No dysuria or retention. NERVOUS SYSTEM: No numbness, weakness. ALLERGY/IMMUNOLOGY: No asthma or hayfever. MUSCULOSKELETAL: As mentioned earlier. HEMATOLOGY/ONCOLOGY: As mentioned earlier. CURRENT MEDICATIONS: Reviewed. They include: 1. [place] 5 mg q.6 p.r.n. 2. Xanax 0.25 t.i.d. 3. Vitamin C 500 mg b.i.d. 4. Aspirin 81 mg. 5. Lipitor 80 mg at bedtime. 6. Daptomycin 500 mg daily. 7. Iron sulfate 325 mg daily. 8. Lasix 40 mg p.o. b.i.d. 9. Heparin IV. 10.Apresoline 25 mg p.o. b.i.d. 11.Dilaudid. 12.NovoLog. 13.Levemir. 14.Melatonin. 15.Zaroxolyn. 16.Lopressor. 17.Multivitamins. 18.Protonix. 19.Zosyn IV. 20.Flomax. 21.Restoril. PHYSICAL EXAMINATION: Patient is alert, oriented x3. Pulse is 92, blood pressure 98/57, respiration 17, temperature 98.6, pulse ox 92% on room air. HEENT: Conjunctivae normal. Oral mucosa moist. NECK: No jugular venous distention. No carotid bruit. No lymph node enlargement. CARDIOVASCULAR SYSTEM: S1, S2 muffled. RESPIRATORY SYSTEM: Breath sounds diminished at the bases. A few scattered rhonchi and crackles. Expiratory wheezing also present. ABDOMEN: Soft, nontender. No mass palpable. LEGS: Bilateral leg edema. Bilateral leg ulcers. NERVOUS SYSTEM: No focal deficit. LABS: WBC 15.6, hemoglobin 10.2. ASSESSMENT: 1. Bilateral leg ulcers with cellulitis, severe pain and failure of outpatient treatment. 2. Increased white count. 3. Anemia, normocytic, of undetermined etiology. 4. Bilateral pleural effusion, right more than the left. 5. Left knee pain. 6. Increased creatinine with chronic kidney disease, stage III. 7. History of recent coronary artery disease, coronary artery bypass grafting. 8. History of congestive heart failure. 9. History of atrial flutter. 10.Diabetes mellitus, type 2. 11.Gastroesophageal reflux disease. 12.Hypertension. 13.Hyperlipidemia. 14.History of myocardial infarction. 15.History of degenerative joint disease. 16.History of prostate disorder. 17.History of coronary artery disease, coronary artery bypass grafting, stent. 18.Remote history of nicotine dependence. 19.FULL CODE. RECOMMENDATIONS AND DISCUSSION: I recommend to continue current medications, continue with the monitoring, symptomatic treatment. Continue with IV heparin. Continue with Lasix. An extra dose of Lasix has been given by Cardiology today. Surgical input appreciated. Chest x-ray reviewed personally by me; as mentioned earlier. Overall prognosis guarded. Further recommendations to follow. Continue broad-spectrum IV antibiotics. Await wound cultures at this time. MMODL / IJN: [id number] /
[2019-01-18 17:13] LABS: Glucose,Whole Blood 183 mg/dL (75-99)
[2019-01-18] MEDS: ASPIRIN 81 MG PO SCH (21:14)
[2019-01-18] MEDS: MELATONIN 3 MG TABLET PO SCH (21:14)
[2019-01-18] MEDS: ATORVASTATIN 80 MG TAB PO SCH (21:14)
[2019-01-18] MEDS: INSULIN DETEMIR (LEVEMIR) 100 UNIT/ML SYR SQ SCH (21:14)
[2019-01-18] MEDS: HYDROcodone/APAP 5-325MG 1 EACH TAB PO PRN (21:15)
[2019-01-18 21:53] LABS: Glucose,Whole Blood 253 mg/dL (75-99)
--- NOTE | 2019-01-18 22:03 | P.PN ---
Subjective Progress Note Date: 01/18/19 78-year-old gentleman with a known history of coronary disease who in November 2018 suffered a non-ST elevated myocardial infarction. Eversion at the present time reveal evidence of severe coronary disease and constantly was taken to the operating room and a her artery bypass graft procedure was performed including GONZALEZ to LAD as well as saphenous grafts from aorta to the first obtuse marginal as well as the distal PDA. The patient postoperatively had significant difficulties with effusion and underwent thoracentesis on 2 events. Eventually improved and was sent to rehabilitation. As related after his discharge from rehab went to the home setting but there was difficulties with the transition. The family relates that the patient is a and receives his medications from that source. Apparently time of his discharge he was at least 4 days before they're able to get most of his medications according his insulin for use at home. The patient then started to show some improvement. He had physical therapy session. The following day he became miserable with severe pain especi ally into his left leg. It escalated the point that he could not walk and constantly his family brought him to the emergency center and he has been admitted. He has a known history of significant lower extremity ulcerations, with these as well as a new onset pain in the left leg the consult was re quested. The patient is denying fevers or chills. Continues to have significant pain to the left leg and has difficulty trying to bear weight because it is so painful. 01/18/2019 reveals patient to be feeling slightly better. Patient is comfortable improved. The left leg is definitely with less discomfort. Objective - Vital Signs Vital signs: Vital Signs Temp 97.4 F L 01/18/19 16:00 Pulse 68 01/18/19 16:00 Resp 18 01/18/19 16:00 BP 101/52 01/18/19 16:00 Pulse Ox 95 01/18/19 16:00 Intake & Output 01/18/19 01/18/19 01/19/19 06:59 18:59 06:59 Intake Total 200 Output Total 1400 1400 Balance -1400 -1200 Intake: Oral 200 Output: Urine 1400 1400 Uretheral (Torres) 450 Other: Voiding Method Incontinent Incontinent # Voids 1 - Exam HEENT: Anicteric conjunctiva are pink and moist nasal mucosa grossly intact without significant lesions, there is no thrush. Neck: The neck is supple without significant lymphadenopathy or thyromegaly. Lungs: Good bilateral air entry without significant crackles or wheezing. There is no significant bronchial sounds. There is no egophony or dullness. Heart: Regular rate and rhythm with an audible S1-S2, no S3 no S4. There is no significant murmur click or rub, PMI was nondisplaced. Abdomen: Positive bowel sounds soft and nontender without palpable masses or organomegaly. There was no guarding or rebound. Extremities: Upper extremities with diffuse small healing ecchymosis. Lower extremities no evidence of the multiple ulcerations. Please see nursing photography. Right lower extremity shows evidence of the 3 ulcerations with the most proximal medial having some slough. The left lateral ulceration is a bit more acute and apparently was a blister that recently open. There is some surrounding erythema at that site.The severe tenderness of the left medial thigh has markedly improved today. The left thigh medial aspect is extremely tender to touch and had evidence of the healing ecchymosis. Right thigh also has healing ecchymosis from the vein harvest. Neuro: Awake alert oriented to person place and time. There are no acute new gross focal sensory motor deficits. - Labs CBC & Chem 7: 01/18/19 06:54 01/18/19 06:54 Labs: Abnormal Lab Results - Last 24 Hours (Table) 01/18/19 01/18/19 01/18/19 Range/Units 02:05 05:42 06:54 WBC 14.0 H (3.8-10.6) k/uL RBC 3.57 L (4.30-5.90) m/uL Hgb 9.5 L (13.0-17.5) gm/dL Hct 30.2 L (39.0-53.0) % RDW 16.0 H (11.5-15.5) % Neutrophils # 11.9 H (1.3-7.7) k/uL Lymphocytes # 0.5 L (1.0-4.8) k/uL APTT 46.4 H (22.0-30.0) sec Sodium (137-145) mmol/L Potassium (3.5-5.1) mmol/L Chloride (98-107) mmol/L Carbon Dioxide (22-30) mmol/L BUN (9-20) mg/dL Creatinine (0.66-1.25) mg/dL POC Glucose (mg/dL) 67 L (75-99) mg/dL Calcium (8.4-10.2) mg/dL 01/18/19 01/18/19 01/18/19 Range/Units 06:54 11:20 17:10 WBC (3.8-10.6) k/uL RBC (4.30-5.90) m/uL Hgb (13.0-17.5) gm/dL Hct (39.0-53.0) % RDW (11.5-15.5) % Neutrophils # (1.3-7.7) k/uL Lymphocytes # (1.0-4.8) k/uL APTT (22.0-30.0) sec Sodium 136 L (137-145) mmol/L Potassium 3.4 L (3.5-5.1) mmol/L Chloride 94 L (98-107) mmol/L Carbon Dioxide 36 H (22-30) mmol/L BUN 57 H (9-20) mg/dL Creatinine 1.73 H (0.66-1.25) mg/dL POC Glucose (mg/dL) 142 H 183 H (75-99) mg/dL Calcium 7.8 L (8.4-10.2) mg/dL 01/18/19 Range/Units 20:59 WBC (3.8-10.6) k/uL RBC (4.30-5.90) m/uL Hgb (13.0-17.5) gm/dL Hct (39.0-53.0) % RDW (11.5-15.5) % Neutrophils # (1.3-7.7) k/uL Lymphocytes # (1.0-4.8) k/uL APTT (22.0-30.0) sec Sodium (137-145) mmol/L Potassium (3.5-5.1) mmol/L Chloride (98-107) mmol/L Carbon Dioxide (22-30) mmol/L BUN (9-20) mg/dL Creatinine (0.66-1.25) mg/dL POC Glucose (mg/dL) 253 H (75-99) mg/dL Calcium (8.4-10.2) mg/dL Microbiology - Last 24 Hours (Table) 05/13/19 15:35 Blood Culture - Preliminary Blood No Growth after 48 hours 01/16/19 21:11 Gram Stain - Preliminary Leg - Right Wound Culture - Preliminary Gram Neg Bacilli Gram Neg Bacilli#2 01/16/19 21:11 Gram Stain - Preliminary Leg - Left Wound Culture - Preliminary Pseudomonas aeruginosa Gram Neg Bacilli Laboratory Results WBC 14.0 k/uL (3.8-10.6) H 01/18/19 06:54 RBC 3.57 m/uL (4.30-5.90) L 01/18/19 06:54 Hgb 9.5 gm/dL (13.0-17.5) L 01/18/19 06:54 Hct 30.2 % (39.0-53.0) L 01/18/19 06:54 MCV 84.6 fL (80.0-100.0) 01/18/19 06:54 MCH 26.5 pg (25.0-35.0) 01/18/19 06:54 MCHC 31.3 g/dL (31.0-37.0) 01/18/19 06:54 RDW 16.0 % (11.5-15.5) H 01/18/19 06:54 Plt Count 236 k/uL (150-450) 01/18/19 06:54 Neutrophils % 85 % 01/18/19 06:54 Lymphocytes % 3 % 01/18/19 06:54 Monocytes % 7 % 01/18/19 06:54 Eosinophils % 3 % 01/18/19 06:54 Basophils % 0 % 01/18/19 06:54 Neutrophils # 11.9 k/uL (1.3-7.7) H 01/18/19 06:54 Lymphocytes # 0.5 k/uL (1.0-4.8) L 01/18/19 06:54 Monocytes # 1.0 k/uL (0-1.0) 01/18/19 06:54 Eosinophils # 0.4 k/uL (0-0.7) 01/18/19 06:54 Basophils # 0.1 k/uL (0-0.2) 01/18/19 06:54 Hypochromasia Marked 01/18/19 06:54 Poikilocytosis Slight 01/18/19 06:54 Anisocytosis Slight 01/18/19 06:54 ESR mm/hr (0-15) 01/16/19 15:35 PT 11.6 sec (9.0-12.0) 01/17/19 15:30 INR 1.1 (<1.2) 01/17/19 15:30 APTT 46.4 sec (22.0-30.0) H 01/18/19 02:05 Sodium 136 mmol/L (137-145) L 01/18/19 06:54 Potassium 3.4 mmol/L (3.5-5.1) L 01/18/19 06:54 Chloride 94 mmol/L (98-107) L 01/18/19 06:54 Carbon Dioxide 36 mmol/L (22-30) H 01/18/19 06:54 Anion Gap 6 mmol/L 01/18/19 06:54 BUN 57 mg/dL (9-20) H 01/18/19 06:54 Creatinine 1.73 mg/dL (0.66-1.25) H 01/18/19 06:54 Est GFR (CKD-EPI)AfAm 43 (>60 ml/min/1.73 sqM) 01/18/19 06:54 Est GFR (CKD-EPI)NonAf 38 (>60 ml/min/1.73 sqM) 01/18/19 06:54 Glucose 93 mg/dL (74-99) 01/18/19 06:54 POC Glucose (mg/dL) 253 mg/dL (75-99) H 01/18/19 20:59 POC Glu Radiation Monitor ID Cardenas, Demetris 01/18/19 20:59 Plasma Lactic Acid Gutierrez 1.3 mmol/L (0.7-2.0) 01/16/19 15:35 Calcium 7.8 mg/dL (8.4-10.2) L 01/18/19 06:54 Total Bilirubin 0.7 mg/dL (0.2-1.3) 01/16/19 15:35 AST 27 U/L (17-59) 01/16/19 15:35 ALT 26 U/L (21-72) 01/16/19 15:35 Alkaline Phosphatase 229 U/L (38-126) H 01/16/19 15:35 C-Reactive Protein 86.0 mg/L (<10.0) H 01/16/19 15:35 NT-Pro-B Natriuret Pep 9530 pg/mL 01/16/19 15:35 Total Protein 6.0 g/dL (6.3-8.2) L 01/16/19 15:35 Albumin 3.2 g/dL (3.5-5.0) L 01/16/19 15:35 Urine Color Yellow 01/16/19 20:30 Urine Appearance Cloudy (Clear) 01/16/19 20:30 Urine pH 6.5 (5.0-8.0) 01/16/19 20:30 Ur Specific [place] 1.017 (1.001-1.035) 01/16/19 20:30 Urine Protein 2+ (Negative) H 01/16/19 20:30 Urine Glucose (UA) Negative (Negative) 01/16/19 20:30 Urine Ketones Negative (Negative) 01/16/19 20:30 Urine Blood Moderate (Negative) H 01/16/19 20:30 Urine Nitrite Negative (Negative) 01/16/19 20:30 Urine Bilirubin Negative (Negative) 01/16/19 20:30 Urine Urobilinogen 2.0 mg/dL (<2.0) 01/16/19 20:30 Ur Leukocyte Esterase Large (Negative) H 01/16/19 20:30 Urine RBC 1 /hpf (0-5) 01/16/19 20:30 Urine WBC 3 /hpf (0-5) 01/16/19 20:30 Ur Squamous Epith Cells 1 /hpf (0-4) 01/16/19 20:30 Urine Mucus Rare /hpf (None) H 01/16/19 20:30 Microbiology 01/16/19 15:35 Blood Blood Culture - Preliminary No Growth after 48 hours 01/16/19 21:11 Leg - Right Gram Stain - Preliminary 01/16/19 21:11 Leg - Right Wound Culture - Preliminary Gram Neg Bacilli Gram Neg Bacilli#2 01/16/19 21:11 Leg - Left Gram Stain - Preliminary 01/16/19 21:11 Leg - Left Wound Culture - Preliminary Pseudomonas aeruginosa Gram Neg Bacilli Assessment and Plan (1) Left leg cellulitis Narrative/Plan: 78-year-old male presents to the hospital with increasing pain to the left leg to the point that he was having difficulty in relating to the severity of the pain. As noted he has status post recent non-ST elevated myocardial infarction with coronary artery bypass grafting procedure. The patient did finish his stay at rehab and was back to home when he had the sudden onset of the pain to the left leg after a physical therapy session. If this time is concerned with the localized tenderness to possible deep venous thrombosis in the duplexes been requested. Local wound care with therahoney products have been requested. Elevation of the limbs well he is at rest Ensuring good diabetes care with control of blood glucose and adequate protein intake For antibiotic therapy is initiated Zosyn and vancomycin. The creatinine is elevated and constantly we'll alter vancomycin to daptomycin for now. We'll de- escalate Zosyn once culture results are available. Leukocytosis likely the basis of the cellulitis to the left lower extremity possibly deep venous thrombosis. 01/18/2019 the patient is feeling somewhat better today. Intense pain left th igh is improved. Swelling is also slightly improved. Denies other acute difficulties at this time. Seems to responding well to current antibiotic therapy for the cellulitis to left lower extremity. Ulcerations are being treated. Evaluation by his cardiovascular surgical team is occurring. Duplexes negative for any deep venous thrombosis. Current Visit: Yes Status: Acute Code(s): L03.116 - CELLULITIS OF LEFT LOWER LIMB SNOMED Code(s): 013792461 (2) Chronic venous hypertension (idiopathic) with ulcer of bilateral lower extremity Current Visit: Yes Status: Acute Code(s): I87.313 - CHRONIC VENOUS HYPERTENSION W ULCER OF BILATERAL LOW EXTRM; L97.919 - NON-PRS CHRONIC ULC UNSP PRT OF R LOW LEG W UNSP SEVERITY; L97.929 - NON-PRS CHRONIC ULC UNSP PRT OF L LOW LEG W UNSP SEVERITY SNOMED Code(s): 818109353016332
[2019-01-19] MEDS: PIPERACILLIN-TAZOBACTAM 3.375 GM in SODIUM CHLORIDE 0.9% 100 ML IVPB SCH ×4 (01:37→23:51)
[2019-01-19] MEDS: SODIUM CHLORIDE 0.9% 1,000 ML IV SCH (01:39)
[2019-01-19 05:59] LABS: Glucose,Whole Blood 65 mg/dL (75-99)
[2019-01-19 06:12] LABS: Glucose,Whole Blood 109 mg/dL (75-99)
[2019-01-19] MEDS: ASCORBIC ACID 500 MG TAB PO SCH ×2 (06:37→18:03)
[2019-01-19] MEDS: PANTOPRAZOLE 40 MG TABLET PO SCH (06:37)
[2019-01-19] MEDS: INSULIN ASPART (NovoLOG) 100 UNIT/ML VIAL SQ SCH ×4 (06:38→21:21)
[2019-01-19 07:57] LABS: Calcium 7.9 mg/dL (8.4-10.2); Potassium 3.6 mmol/L (3.5-5.1)
[2019-01-19 08:06] LABS: Anisocytosis Slight; Basophils # (A) 0.1 k/uL (0-0.2); Basophils % (A) 1 %; Eosinophils # (A) 0.7 k/uL (0-0.7); Eosinophils % (A) 6 %; HCT 31.8 % (39.0-53.0); HGB 9.8 gm/dL (13.0-17.5); Hypochromasia Marked; Lymphocytes # (A) 0.4 k/uL (1.0-4.8); Lymphocytes % (A) 4 %; MCH 25.9 pg (25.0-35.0); MCHC 30.7 g/dL (31.0-37.0); MCV 84.4 fL (80.0-100.0); Mean Platelet Volume 7.3; Monocytes # (A) 0.7 k/uL (0-1.0); Monocytes % (A) 7 %; Neutrophils # (A) 8.8 k/uL (1.3-7.7); Neutrophils % (A) 81 %; Platelet Count 246 k/uL (150-450); Poikilocytosis Slight; RBC 3.77 m/uL (4.30-5.90); WBC 10.9 k/uL (3.8-10.6)
[2019-01-19] MEDS: HEPARIN SOD,PORK IN 0.45% NACL 25,000 UNIT in 0.45% NACL 1 250ML.BAG IV SCH (09:06)
[2019-01-19] MEDS: METOPROLOL TARTRATE 25 MG TAB PO SCH ×2 (09:22→21:22)
[2019-01-19] MEDS: hydrALAZINE HCL 25 MG TAB PO SCH ×2 (09:22→21:22)
[2019-01-19] MEDS: FERROUS SULFATE 325 MG TAB PO SCH (09:22)
[2019-01-19] MEDS: TAMSULOSIN 0.4 MG CAP.ER.24H PO SCH ×2 (09:22→21:22)
[2019-01-19] MEDS: FUROSEMIDE 40 MG TAB PO SCH ×2 (09:23→18:03)
[2019-01-19] MEDS: METOLAZONE 2.5 MG TAB PO SCH (09:23)
--- NOTE | 2019-01-19 10:48 | P.PN ---
Subjective 78-year-old pleasant gentleman with recent CABG, with bilateral pleural effusion right more than left patient will undergo thoracocentesis today patient has bilateral lower leg ulcers which appear to be infected for which patient and daptomycin and Zosyn as per infectious disease. Patient respiratory status remains fairly stable but his creatinine has gone up to 1.9 patient's baseline creatinine is around 1.4. 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 Constitutional: Denied any fatigue denied any fever. Cardio vascular: denied any chest pain, palpitations Gastrointestinal denied any nausea vomiting Pulmonary: Denied any shortness of breath cough Neurologic denied any new focal deficits All inpatient medications were reviewed and appropriate changes in these medications as dictated in the interval history and assessment and plan. Objective - Vital Signs Vital signs: Vital Signs Temp 98.1 F 01/19/19 04:30 Pulse 90 01/19/19 09:25 Resp 20 01/19/19 09:25 BP 112/72 01/19/19 09:25 Pulse Ox 92 L 01/19/19 09:25 Intake & Output 01/18/19 01/19/19 01/19/19 18:59 06:59 18:59 Intake Total 200 250 240 Output Total 1400 575 Balance -1200 -325 240 Weight 83.7 kg Intake: Oral 200 250 240 Output: Urine 1400 575 Other: Voiding Method Incontinent Incontinent Indwelling Catheter # Voids 1 # Bowel Movements 1 - Exam PHYSICAL EXAMINATION: GENERAL: The patient is alert and oriented x3, not in any acute distress. Well developed, well nourished. HEENT: Pupils are round and equally reacting to light. EOMI. No scleral icterus. No conjunctival pallor. Normocephalic, atraumatic. No pharyngeal erythema. No thyromegaly. CARDIOVASCULAR: S1 and S2 present. No murmurs, rubs, or gallops. PULMONARY: Chest is clear to auscultation, no wheezing or crackles. ABDOMEN: Soft, nontender, nondistended, normoactive bowel sounds. No palpable organomegaly. MUSCULOSKELETAL: No joint swelling or deformity. EXTREMITIES: No cyanosis, clubbing, she does have bilateral leg ulcers with the pedal edema and does have Gianni bandages patient has multiple ulcers in both legs. NEUROLOGICAL: Gross neurological examination did not reveal any focal deficits. SKIN: No rashes. - Labs CBC & Chem 7: 01/19/19 07:36 01/19/19 07:36 Labs: Abnormal Lab Results - Last 24 Hours (Table) 01/18/19 01/18/19 01/18/19 Range/Units 11:20 17:10 20:59 WBC (3.8-10.6) k/uL RBC (4.30-5.90) m/uL Hgb (13.0-17.5) gm/dL Hct (39.0-53.0) % MCHC (31.0-37.0) g/dL RDW (11.5-15.5) % Neutrophils # (1.3-7.7) k/uL Lymphocytes # (1.0-4.8) k/uL Sodium (137-145) mmol/L Chloride (98-107) mmol/L Carbon Dioxide (22-30) mmol/L BUN (9-20) mg/dL Creatinine (0.66-1.25) mg/dL Glucose (74-99) mg/dL POC Glucose (mg/dL) 142 H 183 H 253 H (75-99) mg/dL Calcium (8.4-10.2) mg/dL 01/19/19 01/19/19 01/19/19 Range/Units 05:54 06:11 07:36 WBC 10.9 H (3.8-10.6) k/uL RBC 3.77 L (4.30-5.90) m/uL Hgb 9.8 L (13.0-17.5) gm/dL Hct 31.8 L (39.0-53.0) % MCHC 30.7 L (31.0-37.0) g/dL RDW 16.0 H (11.5-15.5) % Neutrophils # 8.8 H (1.3-7.7) k/uL Lymphocytes # 0.4 L (1.0-4.8) k/uL Sodium (137-145) mmol/L Chloride (98-107) mmol/L Carbon Dioxide (22-30) mmol/L BUN (9-20) mg/dL Creatinine (0.66-1.25) mg/dL Glucose (74-99) mg/dL POC Glucose (mg/dL) 65 L 109 H (75-99) mg/dL Calcium (8.4-10.2) mg/dL 01/19/19 Range/Units 07:36 WBC (3.8-10.6) k/uL RBC (4.30-5.90) m/uL Hgb (13.0-17.5) gm/dL Hct (39.0-53.0) % MCHC (31.0-37.0) g/dL RDW (11.5-15.5) % Neutrophils # (1.3-7.7) k/uL Lymphocytes # (1.0-4.8) k/uL Sodium 135 L (137-145) mmol/L Chloride 93 L (98-107) mmol/L Carbon Dioxide 35 H (22-30) mmol/L BUN 64 H (9-20) mg/dL Creatinine 1.91 H (0.66-1.25) mg/dL Glucose 61 L (74-99) mg/dL POC Glucose (mg/dL) (75-99) mg/dL Calcium 7.9 L (8.4-10.2) mg/dL Microbiology - Last 24 Hours (Table) 01/16/19 15:35 Blood Culture - Preliminary Blood No Growth after 48 hours 01/16/19 21:11 Gram Stain - Preliminary Leg - Right Wound Culture - Preliminary Gram Neg Bacilli Gram Neg Bacilli#2 01/16/19 21:11 Gram Stain - Preliminary Leg - Left Wound Culture - Preliminary Pseudomonas aeruginosa Gram Neg Bacilli Assessment and Plan Plan: -left leg cellulitis with multiple ulcers which appear to be infected patient is on daptomycin and the Zosyn. Patient has gram-negative bacilli. Infectious di sease is following the patient -bilateral pleural effusions right greater than left considered congestive heart failure patient will undergo thoracocentesis today patient has chronic systolic dysfunction ejection fractionwas 45-50%. Continue with oral metolazone and Lasix for now nephrology was consulted because of worsening creatinine patient clinically euvolemic except for bilateral pedal edema 1 acute renal failure on chronic kidney disease stage III acute renal failure probably secondary to excess diuresis and do not believe patient has acute tubular necrosis -Coronary artery disease with recent CABG and radiofrequency ablation of pulmonary artery -Proximal atrial flutter status post cardioversion was on Eliquis which is being held for thoracocentesis -congestive heart failure chronic systolic dysfunction EF of around 40-50% patient is fairly euvolemic actually hypovolemic at this time patient although has pedal edema which is secondary to chronic venous insufficiency -Bilateral chronic venous stasis dermatosis ulcerations -Type 2 diabetes mellitus -Hypertension next and-hyperlipidemia
[2019-01-19] MEDS ORDERED: POTASSIUM CHLORIDE ER 20 MEQ TAB.ER PO STA (11:15)
--- NOTE | 2019-01-19 11:18 | P.NPCON ---
History of Present Illness - Reason for Consult acute renal failure - History of Present Illness Reason for consultation: Acute kidney injury History of present illness: Patient is a 78-year-old male seen in renal consultation for acute kidney injury. Creatinine yesterday was 1.73 and is 1.91 today. Patient underwent CABG in December 2018 and then completed inpatient rehab at [facility]. At that time patient had urinary retention and was discharged home with a Torres catheter which she still has in place. Patient presented to the hospital with left-sided knee pain. Wound cultures are positive for Pseudomonas and gram-negative bacilli. He is maintained on IV antibiotics. Urine output is good. Patient has history of systolic CHF with ejection fraction of 45-50%. He was noted to have bilateral pleural effusions. He is scheduled to undergo thoracentesis today. He is maintained on oral Lasix 40 mg twice daily as well as metolazone. He does have history of diabetes mellitus. Patient does appear to have chronic kidney disease stage III with baseline creatinine near 1.2-1.5. When he left rehab last month creatinine was stable around 1.8-1.9. Denies use of nonsteroidals. No hematuria or dysuria. No abdominal pain. Oral intake is good. Vital signs are stable. General: The patient appeared well nourished and normally developed. HEENT: Head exam is unremarkable. Neck is without jugular venous distension. LUNGS: Lungs are clear to auscultation and percussion. Breath sounds decreased. HEART: Rate and Rhythm are regular. First and second heart sounds normal. No mu rmurs, rubs or gallops. ABDOMEN: Abdominal exam reveals normal bowel sounds. Non-tender and non-dis tended. No evidence of peritonitis. EXTREMITITES: 1+ edema. Left lower extremity wrapped. No obvious drainage noted. Past Medical History Past Medical History: Atrial Flutter, Coronary Artery Disease (CAD), Heart Failure, Diabetes Mellitus, GERD/Reflux, Hyperlipidemia, Hypertension, Myocardial Infarction (CA), Osteoarthritis (OA), Prostate Disorder Additional Past Medical History / Comment(s): edema in legs with open blisters now being treated by homecare RN, subacute CA requiring CABG surgery Last Myocardial Infarction Date:: 12/08/18 History of Any Multi-Drug Resistant Organisms: None Reported Past Surgical History: Appendectomy, Coronary Bypass/CABG, Heart Catheterization With Stent Additional Past Surgical History / Comment(s): cataract removal, 4 vessel CABG surgery 12/08/18 Past Anesthesia/Blood Transfusion Reactions: No Reported Reaction Date of Last Stent Placement:: unsure Past Psychological History: No Psychological Hx Reported Additional Psychological History / Comment(s): Single. No children. No pets. Remote tobacco use. No international travel since his experience. Worked on [employer] Smoking Status: Former smoker Past Alcohol Use History: None Reported Additional Past Alcohol Use History / Comment(s): quit drinking 1974 Past Drug Use History: None Reported - Past Family History Mother Family Medical History: Myocardial Infarction (CA) Additional Family Medical History / Comment(s): age 64 Medications and Allergies Home Medications Medication Instructions Recorded Confirmed Type Ascorbic Acid [Vitamin C] 500 mg PO BID-W/MEALS tab 12/20/18 01/16/19 Rx Ferrous Sulfate [Iron (65 MG 325 mg PO DAILY tab 12/20/18 01/16/19 Rx Elemental)] Metoprolol Tartrate [Lopressor] 25 mg PO BID tab 12/20/18 01/16/19 Rx Apixaban [Eliquis] 5 mg PO DAILY 01/13/19 01/16/19 History Insulin Glargine [Lantus] 10 unit SQ HS 01/13/19 01/16/19 History Melatonin 3 mg PO HS 01/13/19 01/16/19 History Metolazone [Zaroxolyn] 2.5 mg PO DAILY 01/13/19 01/16/19 History Rosuvastatin Calcium [Crestor] 40 mg PO HS 01/13/19 01/16/19 History Tamsulosin [Flomax] 0.4 mg PO BID 01/13/19 01/16/19 History Aspirin EC [Ecotrin Low Dose] 81 mg PO HS 01/16/19 01/16/19 History Furosemide [Lasix] 40 mg PO BID 01/16/19 01/16/19 History INSULIN LISPRO (humaLOG) [humaLOG] See Protocol SQ AC-TID 01/16/19 01/16/19 History hydrALAZINE HCL [Apresoline] 25 mg PO BID 01/16/19 01/16/19 History Allergies Allergy/AdvReac Type Severity Reaction Status Date / Time No Known Allergies Allergy Verified 01/16/19 14:36 Physical Exam Vitals: Vital Signs Temp Pulse Resp BP Pulse Ox 01/19/19 09:25 90 20 112/72 92 L 01/19/19 04:30 98.1 F 82 18 100/59 93 L 01/18/19 23:10 98.7 F 88 16 101/52 95 01/18/19 21:00 98.6 F 88 16 125/67 94 L 01/18/19 16:00 97.4 F L 68 18 101/52 95 01/18/19 12:00 74 Intake and Output 01/18/19 01/19/19 01/19/19 22:59 06:59 14:59 Intake Total 250 240 Output Total 575 Balance -325 240 Intake: Oral 250 240 Output: Urine 575 Other: Voiding Method Incontinent Indwelling Catheter # Voids 1 # Bowel Movements 1 Weight 83.7 kg Results - Lab Results Most recent lab results Calcium 7.9 mg/dL (8.4-10.2) L 01/19/19 07:36 01/19/19 07:36 01/19/19 07:36 Assessment and Plan Plan: Assessment: 1. Acute kidney injury mostly prerenal secondary to infection and diuresis. Creatinine 1.91 today. 2. Chronic kidney disease stage III with baseline creatinine in the range of 1.2-1.5 but recently it's been in the range of 1.7-1.9. 3. Coronary artery disease status post CABG in December 2018. 4. Dyspnea secondary to volume overload. 5. Left lower extremity wound maintained on antibiotics. 6. Systolic CHF with ejection fraction of 45-50%. 7. Urinary retention. Currently has Torres catheter. Maintained on Flomax. 8. Hypokalemia secondary to diuresis. Status post placement. Plan: Maintain Lasix 40 mg orally twice daily. Maintain metolazone 2.5 mg once daily. Potential thoracentesis today. Replace potassium. 40 mEq today. Avoid nephrotoxins. Repeat electrolytes in the morning. Thank you for the consultation. I will continue to follow the patient with you during his hospital stay.
[2019-01-19 11:29] LABS: Glucose,Whole Blood 85 mg/dL (75-99)
[2019-01-19] MEDS ORDERED: LIDOCAINE 1% INJ 10MG/ML (20 ML MDV) SQ ONE (11:44)
[2019-01-19] MEDS ORDERED: LIDOCAINE 1% (PF) 10 MG/ML (30 ML SDV) SQ ONE (12:00)
[2019-01-19] MEDS: MULTIVITAMINS, THERA 1 EACH TAB PO SCH (12:01)
--- NOTE | 2019-01-19 12:26 | P.PN ---
Subjective Progress Note Date: 01/19/19 This is a pleasant 78-year-old gentleman who has a known history of coronary artery disease, most recently presented to the hospital with non-ST elevation NE in November of this year, at which time he underwent coronary artery bypass grafting surgery with a GONZALEZ to the LAD, reverse saphenous vein graft from the aorta to the first diagonal, first saphenous vein graft from the aorta to the first obtuse marginal, reverse saphenous vein graft from the aorta to the distal PDA, prior to that patient did have LAD stenting in 2004, history of hypertension, diabetes, hyperlipidemia, paroxysmal atrial fibrillation, and known bilateral ulcerations of his legs. He presents to the hospital on this occasion with symptoms of significant bilateral knee pain, left knee greater than the right. Patient also has been quite short of breath at home, he states that he went to the pulmonary office recently and was found to have fluid in his lungs, he was scheduled as an outpatient to undergo thoracentesis. During his hospitalization for his surgery he did have a thoracentesis performed on 2 separate occasions. Chest x-ray performed this admission revealed continued small bilateral pleural effusions with adjacent atelectasis and/or consolidation. X-ray of the knee on the left side showed soft tissue swelling with peripheral vascular occlusive disease. Blood pressure 104/56, low-grade temperature of 99.6, heart rate in the 90s. 97% oxygenation on room air. White blood cell count 15.6, hemoglobin 9.5, platelet count 210. Sodium 137, potassium 3.1, BUN 53 and creatinine 1.5. At the time of my examination this morning, patient is resting comfortably in bed, he does feel somewhat short of breath, and is having significant discomfort below the left knee. 01/18/2019 Patient was seen and examined this morning, does state that he feels his breathing is a little bit better today, he continues to have significant pain in his left knee. Patient was seen in consultation by pulmonary service yesterday, his anticoagulation is on hold and the plan is to proceed with a right-sided thoracentesis tomorrow. Blood pressure 94/50 with a heart rate in the 90s, 94% on room air. White blood cell count 14, hemoglobin 9.5, platelet count 236. Sodium 136, potassium 3.4, BUN 57 and creatinine 1.7. 01/19/2019 Patient was seen and examined this morning, states that his breathing is about the same, scheduled for thoracentesis today. Blood pressure 112/70 with a heart rate in the 90s, 92% on room air. White blood cell count 10.9, hemoglobin 9.8, platelet count 246. Sodium 135, potassium 3.6, BUN 64 and creatinine 1.9. Objective - Vital Signs Vital signs: Vital Signs Temp 98.1 F 01/19/19 04:30 Pulse 90 01/19/19 09:25 Resp 20 01/19/19 09:25 BP 112/72 01/19/19 09:25 Pulse Ox 92 L 01/19/19 09:25 Intake & Output 01/18/19 01/19/19 01/19/19 18:59 06:59 18:59 Intake Total 200 250 240 Output Total 1400 575 Balance -1200 -325 240 Weight 83.7 kg Intake: Oral 200 250 240 Output: Urine 1400 575 Other: Voiding Method Incontinent Incontinent Indwelling Catheter # Voids 1 # Bowel Movements 1 - Exam PHYSICAL EXAMINATION: GENERAL: 78-year-old gentleman in no acute distress at the time of my examination HEENT: Head is atraumatic, normocephalic. Pupils equal, round. Sclera anicteric. Conjunctiva are clear. Mucous membranes of the mouth are moist. Neck is supple. There is no elevated jugular venous pressure. No carotid bruit is heard. HEART EXAMINATION: Heart S1-S2 irregularly irregular systolic murmur is heard CHEST EXAMINATION: Lungs reveal scattered coarse rhonchi throughout with diminished air entry to the bases bilaterally, midline chest incision clean and dry with mild redness noted ABDOMEN: Soft, nontender. Bowel sounds are heard. No organomegaly noted. EXTREMITIES: 1+ peripheral pulses to the lower extremities with bilateral edema, significant ulceration noted on the inner right leg just below the knee, on the left leg patient also has a significant ulceration noted on the medial part of the left leg below the knee, significant erythema present as well as significant tenderness. Ecchymosis noted to the bilateral lower extremities. NEUROLOGIC patient is awake, alert and oriented 3 . - Labs CBC & Chem 7: 01/19/19 07:36 01/19/19 07:36 Labs: Abnormal Lab Results - Last 24 Hours (Table) 01/18/19 01/18/19 01/19/19 Range/Units 17:10 20:59 05:54 WBC (3.8-10.6) k/uL RBC (4.30-5.90) m/uL Hgb (13.0-17.5) gm/dL Hct (39.0-53.0) % MCHC (31.0-37.0) g/dL RDW (11.5-15.5) % Neutrophils # (1.3-7.7) k/uL Lymphocytes # (1.0-4.8) k/uL Sodium (137-145) mmol/L Chloride (98-107) mmol/L Carbon Dioxide (22-30) mmol/L BUN (9-20) mg/dL Creatinine (0.66-1.25) mg/dL Glucose (74-99) mg/dL POC Glucose (mg/dL) 183 H 253 H 65 L (75-99) mg/dL Calcium (8.4-10.2) mg/dL 01/19/19 01/19/19 01/19/19 Range/Units 06:11 07:36 07:36 WBC 10.9 H (3.8-10.6) k/uL RBC 3.77 L (4.30-5.90) m/uL Hgb 9.8 L (13.0-17.5) gm/dL Hct 31.8 L (39.0-53.0) % MCHC 30.7 L (31.0-37.0) g/dL RDW 16.0 H (11.5-15.5) % Neutrophils # 8.8 H (1.3-7.7) k/uL Lymphocytes # 0.4 L (1.0-4.8) k/uL Sodium 135 L (137-145) mmol/L Chloride 93 L (98-107) mmol/L Carbon Dioxide 35 H (22-30) mmol/L BUN 64 H (9-20) mg/dL Creatinine 1.91 H (0.66-1.25) mg/dL Glucose 61 L (74-99) mg/dL POC Glucose (mg/dL) 109 H (75-99) mg/dL Calcium 7.9 L (8.4-10.2) mg/dL Microbiology - Last 24 Hours (Table) 01/16/19 15:35 Blood Culture - Preliminary Blood No Growth after 48 hours 01/16/19 21:11 Gram Stain - Preliminary Leg - Right Wound Culture - Preliminary Gram Neg Bacilli Gram Neg Bacilli#2 01/16/19 21:11 Gram Stain - Preliminary Leg - Left Wound Culture - Preliminary Pseudomonas aeruginosa Gram Neg Bacilli Assessment and Plan Plan: Assessment and plan #1 bilateral knee discomfort with possible cellulitis and evidence of significant ulcerations bilaterally, elevated white blood cell count #2 bilateral pleural effusion #3 recent coronary artery bypass grafting surgery in November #4 atrial flutter with controlled ventricular response, typical #5 diabetes #6 hypertension #7 hyperlipidemia #8 remote history of nicotine dependence #9 mild renal insufficiency #10 hypokalemia Plan Anticoagulation is currently on hold, patient is scheduled today to undergo right-sided thoracentesis. Hemodynamically stable. After the thoracentesis has been performed and when okay with pulmonary we will resume oral anticoagul ation. DNP note has been reviewed, I agree with a documented findings and plan of care. Patient was seen and examined.
[2019-01-19] MEDS: FAMOTIDINE 20 MG TAB PO SCH (12:27)
--- NOTE | 2019-01-19 12:35 | P.PN ---
Subjective Progress Note Date: 01/19/19 Principal diagnosis: Bilateral pleural effusions, right greater than the left This is 78-year-old white male patient of Saida Roman PA-C, from the [facility], who recently had a non-ST elevated myocardial infarction, and underwent four-vessel coronary artery bypass grafting using the left internal mammary artery to the LAD, reverse SVG to the diagonal, reverse SVG to the OM 1, and to the distal branch of the circumflex artery, bilateral pulmonary vein isolation using radiofrequency and AtriCure clamp, and left atrial appendage exclusion, on 12/20/[address] Rivero. Patient also had a right-sided pleural effusion with thoracentesis and removal of 900 mL of transudative pleural fluid with negative cytology. Medical history includes coronary artery disease with previous stents to the LAD in 2004, and previous myocardial infarction, paroxysmal atrial flutter status post cardioversion on long-term anticoagulation with Eliquis, hypertension, hyperlipidemia, uncontrolled diabetes mellitus, peripheral artery disease, chronic venous stasis ulcers to the right lower extremity, benign prostatic hypertrophy. Following his surgery patient was discharged to inpatient rehab on postoperative day 12, where he continued to work with physical, occupational and cardiac rehab. Patient was seen in follow-up by Dr. Bull the pulmonary clinic on 01/13/2019 for hospital follow-up, and patient was mildly short of breath, but no fever or chills, requiring any oxygen, and was noted to have increasing pleural effusions, and he was ordered to have follow-up outpatient chest ultrasound and outpatient thoracentesis by interventional radiology. However patient came into the hospital instead on 01/16/2019 with complaints of left knee pain, and developing blister on the left lower extremity near medial left knee over the past 2 weeks, which started to drain. Patient states the left lower leg is very tender to palpation. Admits to occasional chills. Denied any fever or night sweats. Physical exam reveals ulceration of the lateral aspect of left lower leg and the medial proximal area just distal to the knee and a lot of tenderness to palpation, with drainage of purulent material and warmth to palpation. Left leg was the harvest site for the venous graft. She also had significant leukocytosis consistent with infection. Patient denies any shortness of breath, or chest pain. Lactic acid was within normal limits, she was started on IV antibiotics with ceftriaxone and vancomycin, infectious disease service was consulted, and we're consulted in regards to bilateral pleural effusions On 01/18/2017 patient seen in follow-up on selective care unit, he is resting in bed, in no acute distress, he is on room air, room air pulse ox is 94%, afebrile, hemodynamically stable, ID service is following. There is to lower extremity cellulitis, and patient on Zosyn, and daptomycin. She continues on diuretics, he is on Zaroxolyn, oral Lasix. He is in no acute distress, no use of respiratory muscles of breathing, he states he is slightly dyspneic with exertion, but no acute distress, lung sounds reveal diminished breath sounds at the bases, right greater than the left, he is on heparin drip, his Eliquis is on hold, for possibility of right-sided thoracentesis likely tomorrow or in the next 48 hours. Today's chest x-ray was reviewed and showed small pleural effusions, cardiomegaly and congestive heart failure On 01/19/2019 patient seen in follow-up on selective care unit, he is awake and alert, in no distress, but appears weak and fatigued, room air pulse ox is 92%, he is afebrile, hemodynamically patient is stable, patient is on IV antibiotics for bilateral lower extremity cellulitis, and we're following him in regards to bilateral pleural effusions, right greater than the left. Patient continues on oral diuretics, we stopped his Eliquis 48 hours ago, for possibility of right- sided thoracentesis today, he is on heparin drip currently, which we will stop, and we will proceed with the right-sided thoracentesis this afternoon. Patient is agreeable to proceed. Today's lab work has been reviewed. Objective - Vital Signs Vital signs: Vital Signs Temp 98.1 F 01/19/19 04:30 Pulse 90 01/19/19 09:25 Resp 20 01/19/19 09:25 BP 112/72 01/19/19 09:25 Pulse Ox 92 L 01/19/19 09:25 Intake & Output 01/18/19 01/19/19 01/19/19 18:59 06:59 18:59 Intake Total 200 250 240 Output Total 1400 575 Balance -1200 -325 240 Weight 83.7 kg Intake: Oral 200 250 240 Output: Urine 1400 575 Other: Voiding Method Incontinent Incontinent Indwelling Catheter # Voids 1 # Bowel Movements 1 - Exam GENERAL EXAM: Alert, pleasant, 78-year-old white male on room air, with a pulse ox of 92%, comfortable in no apparent distress. HEAD: Normocephalic/atraumatic. EYES: Normal reaction of pupils, equal size. Conjunctiva pink, sclera white. NOSE: Clear with pink turbinates. THROAT: No erythema or exudates. NECK: No masses, no JVD, no thyroid enlargement, no adenopathy. CHEST: No chest wall deformity. Symmetrical expansion. LUNGS: Equal air entry with scattered coarse rhonchi, diminished air entry at the bases CVS: Regular rate and rhythm, normal S1 and S2, no gallops, no murmurs, no rubs ABDOMEN: Soft, nontender. No hepatosplenomegaly, normal bowel sounds, no guarding or rigidity. EXTREMITIES: No clubbing, no cyanosis, 2+ pulses and upper and lower extremities. Bilateral lower extremity edema, ulcerations on the medial part of the left leg, with significant tenderness, ecchymosis noted to bilateral lower extremities MUSCULOSKELETAL: Muscle strength and tone normal. SPINE: No scoliosis or deformity SKIN: No rashes CENTRAL NERVOUS SYSTEM: Alert and oriented -3. No focal deficits, tone is normal in all 4 extremities. PSYCHIATRIC: Alert and oriented -3. Appropriate affect. Intact judgment and insight. - Labs CBC & Chem 7: 01/19/19 07:36 01/19/19 07:36 Labs: Abnormal Lab Results - Last 24 Hours (Table) 01/18/19 01/18/19 01/19/19 Range/Units 17:10 20:59 05:54 WBC (3.8-10.6) k/uL RBC (4.30-5.90) m/uL Hgb (13.0-17.5) gm/dL Hct (39.0-53.0) % MCHC (31.0-37.0) g/dL RDW (11.5-15.5) % Neutrophils # (1.3-7.7) k/uL Lymphocytes # (1.0-4.8) k/uL Sodium (137-145) mmol/L Chloride (98-107) mmol/L Carbon Dioxide (22-30) mmol/L BUN (9-20) mg/dL Creatinine (0.66-1.25) mg/dL Glucose (74-99) mg/dL POC Glucose (mg/dL) 183 H 253 H 65 L (75-99) mg/dL Calcium (8.4-10.2) mg/dL 01/19/19 01/19/19 01/19/19 Range/Units 06:11 07:36 07:36 WBC 10.9 H (3.8-10.6) k/uL RBC 3.77 L (4.30-5.90) m/uL Hgb 9.8 L (13.0-17.5) gm/dL Hct 31.8 L (39.0-53.0) % MCHC 30.7 L (31.0-37.0) g/dL RDW 16.0 H (11.5-15.5) % Neutrophils # 8.8 H (1.3-7.7) k/uL Lymphocytes # 0.4 L (1.0-4.8) k/uL Sodium 135 L (137-145) mmol/L Chloride 93 L (98-107) mmol/L Carbon Dioxide 35 H (22-30) mmol/L BUN 64 H (9-20) mg/dL Creatinine 1.91 H (0.66-1.25) mg/dL Glucose 61 L (74-99) mg/dL POC Glucose (mg/dL) 109 H (75-99) mg/dL Calcium 7.9 L (8.4-10.2) mg/dL Microbiology - Last 24 Hours (Table) 01/16/19 15:35 Blood Culture - Preliminary Blood No Growth after 48 hours 01/16/19 21:11 Gram Stain - Preliminary Leg - Right Wound Culture - Preliminary Gram Neg Bacilli Gram Neg Bacilli#2 01/16/19 21:11 Gram Stain - Preliminary Leg - Left Wound Culture - Preliminary Pseudomonas aeruginosa Gram Neg Bacilli Assessment and Plan Plan: Assessment: #1. Left leg cellulitis #2. Bilateral pleural effusions, right greater than the left #3. Acute kidney injury likely related to ATN #4. Recent non-ST elevated myocardial infarction in December 2018 #5. Triple-vessel coronary artery disease, status post four-vessel bypass, with radiofrequency ablation of the pulmonary artery, and exclusion of the left atrial appendix #6. Paroxysmal atrial flutter status post cardioversion, on Eliquis #7. Chronic congestive heart failure with systolic dysfunction #8. Type 2 diabetes mellitus #9. Hypertension #10. Hyperlipidemia #11. History of previous coronary artery disease and previous PCI, and previous episode of myocardial infarction Plan: We'll hold the heparin drip, will proceed with right-sided thoracentesis this afternoon, patient's renal profile seems to be worsening and on yesterday's chest x-ray right-sided pleural effusion seemed to be increasing. Patient is agreeable to proceed with thoracentesis. I performed a history & physical examination of the patient and discussed their management with my nurse practitioner, Demetria Ramos. I reviewed the nurse practitioner's note and agree with the documented findings and plan of care. Lung sounds are positive for diminished breath sounds at the bases. The findings and the impression was discussed with the patient. I attest to the documentation by the nurse practitioner. Time with Patient: Less than 30
--- NOTE | 2019-01-19 14:37 | XR ---
EXAMINATION TYPE: XR chest 1V portable DATE OF EXAM: 01/19/2019 COMPARISON: 01/18/2019 HISTORY: Postthoracentesis TECHNIQUE: Single frontal view of the chest is obtained. FINDINGS: Bilateral consolidation and pleural effusion. No sizable pneumothorax. Heart is enlarged a nd is postoperative change. Arthropathy of the shoulders. IMPRESSION: 1. No pneumothorax postthoracentesis. 2. Bilateral consolidation and small effusion. Underlying venous congestion in the differential diagn osis.
--- NOTE | 2019-01-19 15:40 | P.PN ---
Subjective Progress Note Date: 01/19/19 Principal diagnosis: Medical history significant for severe triple-vessel coronary artery disease with non-STEMI, status post quadruple coronary artery bypass grafting surgery on 12/08/2018, acute on chronic systolic and diastolic heart failure with an ejection fraction 40-45%, moderate left ventricular systolic function with [id number] mitral valve regurgitation, history of right sided pleural effusion status post thoracentesis with 900 mL of drainage and dated fluid d rained on 12/02/2018, history of coronary artery disease with previous stents to his left anterior descending coronary artery in 2004, recent diagnosis of persistent paroxysmal atrial fibrillation status post cardioversion and is on eliquis for anticoagulation, hypertension, hyperlipidemia, uncontrolled diabetes mellitus with recent hemoglobin A1c of 7.8%, severe COPD with a recent FEV1 47% of predicted value, peripheral arterial disease, chronic venous stasis ulcers to his right lower extremity, and prostate disorder. The patient is lying in bed on the 3 S. cardiac stepdown unit. He is in no acute distress. He remains complaining of left knee pain, although he states that his knee is feeling better on a daily basis. He is complaining of a chipped tooth from his open heart surgery. He reports that his shortness of breath has improved. He is currently on a heparin drip and his Eliquis is on hold for possible right-sided thoracentesis this afternoon. His WBC count has improved today and is 10.[address] Eldridge is involved in the patient's care with recommendations on antibiotics and localized wound care. Objective - Vital Signs Vital signs: Vital Signs Temp 97.5 F L 01/19/19 12:00 Pulse 70 01/19/19 12:00 Resp 20 01/19/19 12:00 BP 97/55 01/19/19 12:00 Pulse Ox 94 L 01/19/19 12:00 Intake & Output 01/18/19 01/19/19 01/19/19 18:59 06:59 18:59 Intake Total 200 250 906 Output Total 1400 575 Balance -1200 -325 906 Weight 83.7 kg Intake: Oral 200 250 906 Output: Urine 1400 575 Other: Voiding Method Incontinent Incontinent Indwelling Catheter # Voids 1 # Bowel Movements 1 - Constitutional General appearance: Present: cooperative, no acute distress, obese - Respiratory Details: Lung sounds are essentially clear to his bilateral upper lobes, diminished to his bilateral bases, right greater than left. Respirations are symmetrical and nonlabored. Oxygen saturation are 94% on room air. - Cardiovascular Details: S1 and S2 present, negative for S3, gallop or murmur. Regular rhythm and rate. Remote telemetry showing normal sinus rhythm heart rate 76. Sternum is stable. Heart hugger is in place and he is demonstrating appropriate use. Knee-high Gianni wraps in place to his bilateral lower extremities. - Gastrointestinal Gastrointestinal Comment(s): Abdomen is soft, nontender and nondistended. Active bowel sounds all 4 abdominal quadrants. No guarding or rigidity. No organomegaly. - Genitourinary Genitourinary Comment(s): Torres catheter for accurate I&O and urinary retention. Draining clear yellow u rine. - Integumentary Integumentary Comment(s): Skin is warm and dry. No clubbing or cyanosis is present. Few scattered ecchymotic areas to his bilateral upper extremities. Left lower extremity with ulceration to his left lateral lower extremity. Chronic venous stasis ulcer to his right lower extremity. Midline sternal incision is clean, dry and approx imated. No drainage or redness was present. Bilateral lower extremity EVH sites clean, dry and approximated. Some surrounding redness to his left lower extremity EVH site, tender to touch. - Neurologic Neurologic: Present: CNII-XII intact - Musculoskeletal Musculoskeletal: Present: gait normal, generalized weakness, strength equal bilaterally - Psychiatric Psychiatric: Present: A&O x's 3, appropriate affect, intact judgment & insight - Allied health notes Allied health notes reviewed: nursing - Labs CBC & Chem 7: 01/19/19 07:36 01/19/19 07:36 Labs: Abnormal Lab Results - Last 24 Hours (Table) 01/18/19 01/18/19 01/19/19 Range/Units 17:10 20:59 05:54 WBC (3.8-10.6) k/uL RBC (4.30-5.90) m/uL Hgb (13.0-17.5) gm/dL Hct (39.0-53.0) % MCHC (31.0-37.0) g/dL RDW (11.5-15.5) % Neutrophils # (1.3-7.7) k/uL Lymphocytes # (1.0-4.8) k/uL Sodium (137-145) mmol/L Chloride (98-107) mmol/L Carbon Dioxide (22-30) mmol/L BUN (9-20) mg/dL Creatinine (0.66-1.25) mg/dL Glucose (74-99) mg/dL POC Glucose (mg/dL) 183 H 253 H 65 L (75-99) mg/dL Calcium (8.4-10.2) mg/dL 01/19/19 01/19/19 01/19/19 Range/Units 06:11 07:36 07:36 WBC 10.9 H (3.8-10.6) k/uL RBC 3.77 L (4.30-5.90) m/uL Hgb 9.8 L (13.0-17.5) gm/dL Hct 31.8 L (39.0-53.0) % MCHC 30.7 L (31.0-37.0) g/dL RDW 16.0 H (11.5-15.5) % Neutrophils # 8.8 H (1.3-7.7) k/uL Lymphocytes # 0.4 L (1.0-4.8) k/uL Sodium 135 L (137-145) mmol/L Chloride 93 L (98-107) mmol/L Carbon Dioxide 35 H (22-30) mmol/L BUN 64 H (9-20) mg/dL Creatinine 1.91 H (0.66-1.25) mg/dL Glucose 61 L (74-99) mg/dL POC Glucose (mg/dL) 109 H (75-99) mg/dL Calcium 7.9 L (8.4-10.2) mg/dL Microbiology - Last 24 Hours (Table) 01/16/19 15:35 Blood Culture - Preliminary Blood No Growth after 48 hours 01/16/19 21:11 Gram Stain - Preliminary Leg - Right Wound Culture - Preliminary Gram Neg Bacilli Gram Neg Bacilli#2 01/16/19 21:11 Gram Stain - Preliminary Leg - Left Wound Culture - Preliminary Pseudomonas aeruginosa Gram Neg Bacilli - Imaging and Cardiology Chest x-ray: report reviewed, image reviewed Assessment and Plan Assessment: 1. Chronic venous stasis ulcer to his right lower extremity 2. Cellulitis to his left lower extremity, left knee pain 3. Leukocytosis 4. Chronic kidney disease stage III 5. Coronary artery disease status post coronary artery bypass grafting surgery 6. History of non-STEMI 7. Acute on chronic systolic and diastolic congestive heart failure 8. History of atrial flutter 9. Diabetes mellitus type 2, uncontrolled 10. Hypertension 11. Hyperlipidemia 12. Gastroesophageal reflux disease 13. Osteoarthritis 14. History of prostate disorder, Torres catheter in place 15. Remote history of nicotine dependence 16. History of right pleural effusion status post thoracentesis 17. Peripheral vascular disease 18. Right pleural effusion, status post right thoracentesis with 800 mL of fluid drained today 01/19/2019 Plan: 1. Continue aspirin, statin and beta alfred. 2. Heparin drip management per cardiology. Hold per request of pulmonology for right thoracentesis today. We started Eliquis when okay with pulmonary medicine. 3. Encourage incentive spirometry use 10 times every hour while awake. 4. Will monitor labs, chest x-rays. Electrolyte replacement per protocol. 5. Pain control with current medication regimen. 6. Medical and Insulin management per primary care service 7. Increase activity, ambulate as tolerated. PT/OT/cardiac rehab following. 8. Bronchodilators per pulmonology. 9. GI/DVT prophylaxis. 10. 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 13. Local wound care and antibiotic management per infectious disease. 14. Right thoracentesis today with 800 mL of fluid drained off his right chest completed by Dr. Marcus and from pulmonary medicine. 15. More recommendations to follow based on patient's clinical course. Time with Patient: Greater than 30
[2019-01-19] MEDS: DAPTOmycin 500 MG in SODIUM CHLORIDE 0.9% 50 ML IVPB SCH (16:09)
[2019-01-19 16:23] LABS: Appearance,BF Cloudy; Color,BF Yellow
[2019-01-19 16:33] LABS: Glucose,Whole Blood 127 mg/dL (75-99)
[2019-01-19 16:41] LABS: Nucleated Cells, Body Fluid 80 /uL; RBC, Body Fluid 1320 /uL
[2019-01-19 16:44] LABS: Mononuclear WBC,Body Fluid 85 %; Polynuclear WBC,Body Fluid 15 %; Total Cells Counted,Body Fluid 100
[2019-01-19] MEDS ORDERED: FAMOTIDINE 20 MG TAB PO SCH (21:00)
[2019-01-19 21:12] LABS: Glucose,Whole Blood 237 mg/dL (75-99)
[2019-01-19] MEDS: INSULIN DETEMIR (LEVEMIR) 100 UNIT/ML SYR SQ SCH (21:21)
[2019-01-19] MEDS: MELATONIN 3 MG TABLET PO SCH (21:22)
[2019-01-19] MEDS: ASPIRIN 81 MG PO SCH (21:22)
[2019-01-19] MEDS: ATORVASTATIN 80 MG TAB PO SCH (21:22)
[2019-01-19] MEDS: APIXABAN 5 MG TAB PO SCH (21:22)
--- NOTE | 2019-01-19 22:58 | PCN ---
PROCEDURE NOTE PROCEDURE: Right-sided thoracentesis. PREOPERATIVE DIAGNOSIS: Right pleural effusion. POSTOPERATIVE DIAGNOSIS: Right pleural effusion. OPERATORS: 1. Michael Bull MD. 2. Page Cervantes. 3. Kayla Ramos. PROCEDURE DESCRIPTION: A time-out was completed verifying correct patient, procedure, site, positioning, and implant (s) or special equipment if applicable. The right posterior chest was marked by ultrasound. Appropriate fluid pocket was identified and marked. Patient was positioned, prepped and draped in usual sterile fashion. Lidocaine was used to anesthetize the area. A thoracentesis catheter was introduced into the pleural space and fluid was removed. Blood loss was none. A chest x-ray will be done to evaluate for pneumothorax. Total Fluid Removed 850 mL Color of Fluid Yellow Fluid will be sent for appropriate laboratory tests, including cell count and differential, microbiologic culture and cytology. Patient tolerated the procedure well and there were no immediate complications. MMODL / IJN: [id number] /
--- NOTE | 2019-01-19 23:22 | P.PN ---
Subjective Progress Note Date: 01/19/19 78-year-old gentleman with a known history of coronary disease who in November 2018 suffered a non-ST elevated myocardial infarction. Eversion at the present time reveal evidence of severe coronary disease and constantly was taken to the operating room and a her artery bypass graft procedure was performed including GONZALEZ to LAD as well as saphenous grafts from aorta to the first obtuse marginal as well as the distal PDA. The patient postoperatively had significant difficulties with effusion and underwent thoracentesis on 2 events. Eventually improved and was sent to rehabilitation. As related after his discharge from rehab went to the home setting but there was difficulties with the transition. The family relates that the patient is a and receives his medications from that source. Apparently time of his discharge he was at least 4 days before they're able to get most of his medications according his insulin for use at home. The patient then started to show some improvement. He had physical therapy session. The following day he became miserable with severe pain especi ally into his left leg. It escalated the point that he could not walk and constantly his family brought him to the emergency center and he has been admitted. He has a known history of significant lower extremity ulcerations, with these as well as a new onset pain in the left leg the consult was re quested. The patient is denying fevers or chills. Continues to have significant pain to the left leg and has difficulty trying to bear weight because it is so painful. 01/18/2019 reveals patient to be feeling slightly better. Patient is comfortable improved. The left leg is definitely with less discomfort. 01/19/2019 patient continues to have improvement. There is less erythema. Ulcerations are improving. Objective - Vital Signs Vital signs: Vital Signs Temp 98.6 F 01/19/19 20:55 Pulse 84 01/19/19 20:55 Resp 18 01/19/19 20:55 BP 110/64 01/19/19 20:55 Pulse Ox 94 L 01/19/19 20:55 Intake & Output 01/19/19 01/19/19 01/20/19 06:59 18:59 06:59 Intake Total 250 1128 Output Total 575 600 Balance -325 528 Weight 83.7 kg Intake: Oral 250 1128 Output: Urine 575 600 Other: Voiding Method Incontinent Indwelling Catheter Indwelling Catheter # Voids 1 # Bowel Movements 1 - Exam HEENT: Anicteric conjunctiva are pink and moist nasal mucosa grossly intact without significant lesions, there is no thrush. Neck: The neck is supple without significant lymphadenopathy or thyromegaly. Lungs: Good bilateral air entry without significant crackles or wheezing. There is no significant bronchial sounds. There is no egophony or dullness. Heart: Regular rate and rhythm with an audible S1-S2, no S3 no S4. There is no significant murmur click or rub, PMI was nondisplaced. Abdomen: Positive bowel sounds soft and nontender without palpable masses or organomegaly. There was no guarding or rebound. Extremities: Upper extremities with diffuse small healing ecchymosis. Lower extremities no evidence of the multiple ulcerations. Please see nursing photography. Right lower extremity shows evidence of the 3 ulcerations with the most proximal medial having some slough. The left lateral ulceration is a bit more acute and apparently was a blister that recently open. There is some surrounding erythema at that site.The severe tenderness of the left medial thigh has markedly improved today. The left thigh medial aspect is extremely tender to touch and had evidence of the healing ecchymosis. Right thigh also has healing ecchymosis from the vein harvest. Neuro: Awake alert oriented to person place and time. There are no acute new gross focal sensory motor deficits. - Labs CBC & Chem 7: 01/19/19 07:36 01/19/19 07:36 Labs: Abnormal Lab Results - Last 24 Hours (Table) 01/19/19 01/19/19 01/19/19 Range/Units 05:54 06:11 07:36 WBC 10.9 H (3.8-10.6) k/uL RBC 3.77 L (4.30-5.90) m/uL Hgb 9.8 L (13.0-17.5) gm/dL Hct 31.8 L (39.0-53.0) % MCHC 30.7 L (31.0-37.0) g/dL RDW 16.0 H (11.5-15.5) % Neutrophils # 8.8 H (1.3-7.7) k/uL Lymphocytes # 0.4 L (1.0-4.8) k/uL Sodium (137-145) mmol/L Chloride (98-107) mmol/L Carbon Dioxide (22-30) mmol/L BUN (9-20) mg/dL Creatinine (0.66-1.25) mg/dL Glucose (74-99) mg/dL POC Glucose (mg/dL) 65 L 109 H (75-99) mg/dL Calcium (8.4-10.2) mg/dL 01/19/19 01/19/19 01/19/19 Range/Units 07:36 16:27 21:11 WBC (3.8-10.6) k/uL RBC (4.30-5.90) m/uL Hgb (13.0-17.5) gm/dL Hct (39.0-53.0) % MCHC (31.0-37.0) g/dL RDW (11.5-15.5) % Neutrophils # (1.3-7.7) k/uL Lymphocytes # (1.0-4.8) k/uL Sodium 135 L (137-145) mmol/L Chloride 93 L (98-107) mmol/L Carbon Dioxide 35 H (22-30) mmol/L BUN 64 H (9-20) mg/dL Creatinine 1.91 H (0.66-1.25) mg/dL Glucose 61 L (74-99) mg/dL POC Glucose (mg/dL) 127 H 237 H (75-99) mg/dL Calcium 7.9 L (8.4-10.2) mg/dL Microbiology - Last 24 Hours (Table) 01/19/19 14:00 Body Fluid Culture - Preliminary Pleural Fluid 01/19/19 14:00 Fungal Culture - Preliminary Pleural Fluid 01/19/19 14:00 Acid Fast Bacilli Culture - Preliminary Pleural Fluid 01/16/19 21:11 Gram Stain - Final Leg - Left Wound Culture - Final Pseudomonas aeruginosa Providencia rettgeri 01/16/19 21:11 Gram Stain - Final Leg - Right Wound Culture - Final Pseudomonas aeruginosa Klebsiella oxytoca 01/16/19 15:35 Blood Culture - Preliminary Blood No Growth after 72 hours Laboratory Results WBC 10.9 k/uL (3.8-10.6) H 01/19/19 07:36 RBC 3.77 m/uL (4.30-5.90) L 01/19/19 07:36 Hgb 9.8 gm/dL (13.0-17.5) L 01/19/19 07:36 Hct 31.8 % (39.0-53.0) L 01/19/19 07:36 MCV 84.4 fL (80.0-100.0) 01/19/19 07:36 MCH 25.9 pg (25.0-35.0) 01/19/19 07:36 MCHC 30.7 g/dL (31.0-37.0) L 01/19/19 07:36 RDW 16.0 % (11.5-15.5) H 01/19/19 07:36 Plt Count 246 k/uL (150-450) 01/19/19 07:36 Neutrophils % 81 % 01/19/19 07:36 Lymphocytes % 4 % 01/19/19 07:36 Monocytes % 7 % 01/19/19 07:36 Eosinophils % 6 % 01/19/19 07:36 Basophils % 1 % 01/19/19 07:36 Neutrophils # 8.8 k/uL (1.3-7.7) H 01/19/19 07:36 Lymphocytes # 0.4 k/uL (1.0-4.8) L 01/19/19 07:36 Monocytes # 0.7 k/uL (0-1.0) 01/19/19 07:36 Eosinophils # 0.7 k/uL (0-0.7) 01/19/19 07:36 Basophils # 0.1 k/uL (0-0.2) 01/19/19 07:36 Hypochromasia Marked 01/19/19 07:36 Poikilocytosis Slight 01/19/19 07:36 Anisocytosis Slight 01/19/19 07:36 ESR mm/hr (0-15) 01/16/19 15:35 PT 11.6 sec (9.0-12.0) 01/17/19 15:30 INR 1.1 (<1.2) 01/17/19 15:30 APTT 46.4 sec (22.0-30.0) H 01/18/19 02:05 Sodium 135 mmol/L (137-145) L 01/19/19 07:36 Potassium 3.6 mmol/L (3.5-5.1) 01/19/19 07:36 Chloride 93 mmol/L (98-107) L 01/19/19 07:36 Carbon Dioxide 35 mmol/L (22-30) H 01/19/19 07:36 Anion Gap 7 mmol/L 01/19/19 07:36 BUN 64 mg/dL (9-20) H 01/19/19 07:36 Creatinine 1.91 mg/dL (0.66-1.25) H 01/19/19 07:36 Est GFR (CKD-EPI)AfAm 39 (>60 ml/min/1.73 sqM) 01/19/19 07:36 Est GFR (CKD-EPI)NonAf 33 (>60 ml/min/1.73 sqM) 01/19/19 07:36 Glucose 61 mg/dL (74-99) L 01/19/19 07:36 POC Glucose (mg/dL) 237 mg/dL (75-99) H 01/19/19 21:11 POC Glu Motion Picture Director ID Samaria Gonzalez 01/19/19 21:11 Plasma Lactic Acid Gutierrez 1.3 mmol/L (0.7-2.0) 01/16/19 15:35 Calcium 7.9 mg/dL (8.4-10.2) L 01/19/19 07:36 Total Bilirubin 0.7 mg/dL (0.2-1.3) 01/16/19 15:35 AST 27 U/L (17-59) 01/16/19 15:35 ALT 26 U/L (21-72) 01/16/19 15:35 Alkaline Phosphatase 229 U/L (38-126) H 01/16/19 15:35 C-Reactive Protein 86.0 mg/L (<10.0) H 01/16/19 15:35 NT-Pro-B Natriuret Pep 9530 pg/mL 01/16/19 15:35 Total Protein 6.0 g/dL (6.3-8.2) L 01/16/19 15:35 Albumin 3.2 g/dL (3.5-5.0) L 01/16/19 15:35 Urine Color Yellow 01/16/19 20:30 Urine Appearance Cloudy (Clear) 01/16/19 20:30 Urine pH 6.5 (5.0-8.0) 01/16/19 20:30 Ur Specific [place] 1.017 (1.001-1.035) 01/16/19 20:30 Urine Protein 2+ (Negative) H 01/16/19 20:30 Urine Glucose (UA) Negative (Negative) 01/16/19 20:30 Urine Ketones Negative (Negative) 01/16/19 20:30 Urine Blood Moderate (Negative) H 01/16/19 20:30 Urine Nitrite Negative (Negative) 01/16/19 20:30 Urine Bilirubin Negative (Negative) 01/16/19 20:30 Urine Urobilinogen 2.0 mg/dL (<2.0) 01/16/19 20:30 Ur Leukocyte Esterase Large (Negative) H 01/16/19 20:30 Urine RBC 1 /hpf (0-5) 01/16/19 20:30 Urine WBC 3 /hpf (0-5) 01/16/19 20:30 Ur Squamous Epith Cells 1 /hpf (0-4) 01/16/19 20:30 Urine Mucus Rare /hpf (None) H 01/16/19 20:30 Fluid Source Pleural 01/19/19 14:00 Fluid Color Yellow 01/19/19 14:00 Fluid Appearance Cloudy 01/19/19 14:00 Fluid RBC 1320 /uL 01/19/19 14:00 Fluid Nucleated Cells 80 /uL 01/19/19 14:00 Fluid Polynuclear WBCs 15 % 01/19/19 14:00 Fluid Mononuclear WBCs 85 % 01/19/19 14:00 Microbiology 01/19/19 14:00 Pleural Fluid Body Fluid Culture - Preliminary 01/19/19 14:00 Pleural Fluid Fungal Culture - Preliminary 01/19/19 14:00 Pleural Fluid Acid Fast Bacilli Culture - Preliminary 01/16/19 21:11 Leg - Left Gram Stain - Final 01/16/19 21:11 Leg - Left Wound Culture - Final Pseudomonas aeruginosa Providencia rettgeri 01/16/19 21:11 Leg - Right Gram Stain - Final 01/16/19 21:11 Leg - Right Wound Culture - Final Pseudomonas aeruginosa Klebsiella oxytoca 01/16/19 15:35 Blood Blood Culture - Preliminary No Growth after 72 hours Assessment and Plan (1) Left leg cellulitis Narrative/Plan: 78-year-old male presents to the hospital with increasing pain to the left leg to the point that he was having difficulty in relating to the severity of the pain. As noted he has status post recent non-ST elevated myocardial infarction with coronary artery bypass grafting procedure. The patient did finish his stay at rehab and was back to home when he had the sudden onset of the pain to the left leg after a physical therapy session. If this time is concerned with the localized tenderness to possible deep venous thrombosis in the duplexes been requested. Local wound care with therahoney products have been requested. Elevation of the limbs well he is at rest Ensuring good diabetes care with control of blood glucose and adequate protein intake For antibiotic therapy is initiated Zosyn and vancomycin. The creatinine is elevated and constantly we'll alter vancomycin to daptomycin for now. We'll de- escalate Zosyn once culture results are available. Leukocytosis likely the basis of the cellulitis to the left lower extremity possibly deep venous thrombosis. 01/18/2019 the patient is feeling somewhat better today. Intense pain left thigh is improved. Swelling is also slightly improved. Denies other acute difficulties at this time. Seems to responding well to current antibiotic therapy for the cellulitis to left lower extremity. Ulcerations are being treated. Evaluation by his cardiovascular surgical team is occurring. Duplexes negative for any deep venous thrombosis. 01/19/2019 patient has further improvement of the intense pain to the left leg. It's now minimal. The swelling and erythema improved. Ulcerations have less erythema. Responding well to current antibiotic therapy of Zosyn. No evidence of any deep venous thrombosis. Cellulitis is improving. Wound culture with pseudomonas, Klebsiella, and providentia species. This also remains an excellent choice. As he improves and is being ready for discharge to home there is a potential for transitioning antibiotic therapy to ciprofloxacin to complete the treatment for the polymicrobial gram-negative infection of the ulcers and skin. The care is discussed with his family members. Current Visit: Yes Status: Acute Code(s): L03.116 - CELLULITIS OF LEFT LOWER LIMB SNOMED Code(s): 420306919 (2) Chronic venous hypertension (idiopathic) with ulcer of bilateral lower extremity Current Visit: Yes Status: Acute Code(s): I87.313 - CHRONIC VENOUS HYPERTENSION W ULCER OF BILATERAL LOW EXTRM; L97.919 - NON-PRS CHRONIC ULC UNSP PRT OF R LOW LEG W UNSP SEVERITY; L97.929 - NON-PRS CHRONIC ULC UNSP PRT OF L LOW LEG W UNSP SEVERITY SNOMED Code(s): 857146873792995
[2019-01-20 02:59] LABS: Glucose,Whole Blood 117 mg/dL (75-99)
[2019-01-20 05:56] LABS: Glucose,Whole Blood 76 mg/dL (75-99)
[2019-01-20] MEDS: ASCORBIC ACID 500 MG TAB PO SCH ×2 (06:11→14:22)
[2019-01-20] MEDS: INSULIN ASPART (NovoLOG) 100 UNIT/ML VIAL SQ SCH ×4 (06:11→21:08)
[2019-01-20 08:25] LABS: Anisocytosis Slight; Basophils # (A) 0.1 k/uL (0-0.2); Basophils % (A) 1 %; Eosinophils # (A) 0.6 k/uL (0-0.7); Eosinophils % (A) 6 %; HCT 31.4 % (39.0-53.0); HGB 9.3 gm/dL (13.0-17.5); Hypochromasia Marked; Lymphocytes # (A) 0.5 k/uL (1.0-4.8); Lymphocytes % (A) 5 %; MCH 24.9 pg (25.0-35.0); MCHC 29.6 g/dL (31.0-37.0); Mean Platelet Volume 7.6; Monocytes # (A) 0.6 k/uL (0-1.0); Monocytes % (A) 6 %; Neutrophils # (A) 7.8 k/uL (1.3-7.7); Neutrophils % (A) 80 %; Platelet Count 256 k/uL (150-450); Poikilocytosis Slight; RBC 3.73 m/uL (4.30-5.90); RDW 16.1 % (11.5-15.5); WBC 9.8 k/uL (3.8-10.6)
[2019-01-20 08:36] LABS: Calcium 8.3 mg/dL (8.4-10.2); Magnesium 2.1 mg/dL (1.6-2.3); Potassium 3.7 mmol/L (3.5-5.1)
[2019-01-20] MEDS: PIPERACILLIN-TAZOBACTAM 3.375 GM in SODIUM CHLORIDE 0.9% 100 ML IVPB SCH ×3 (09:18→23:11)
[2019-01-20] MEDS: ASPIRIN 81 MG PO SCH ×2 (09:20→20:06)
[2019-01-20] MEDS: TAMSULOSIN 0.4 MG CAP.ER.24H PO SCH ×2 (09:21→20:07)
[2019-01-20] MEDS: APIXABAN 5 MG TAB PO SCH ×2 (09:21→20:07)
[2019-01-20] MEDS: FUROSEMIDE 40 MG TAB PO SCH ×2 (09:21→17:19)
[2019-01-20] MEDS: FAMOTIDINE 20 MG TAB PO SCH (09:21)
[2019-01-20] MEDS: METOLAZONE 2.5 MG TAB PO SCH (09:21)
[2019-01-20] MEDS: hydrALAZINE HCL 25 MG TAB PO SCH ×2 (09:21→20:06)
[2019-01-20] MEDS: METOPROLOL TARTRATE 25 MG TAB PO SCH ×2 (09:22→20:06)
[2019-01-20] MEDS: FERROUS SULFATE 325 MG TAB PO SCH (09:22)
[2019-01-20 11:14] LABS: Glucose,Whole Blood 100 mg/dL (75-99)
--- NOTE | 2019-01-20 11:39 | P.PN ---
Subjective Progress Note Date: 01/20/19 This pleasant 78-year-old gentleman with known history of CAD was hospitalized in November of this year with non-ST elevation IL and subsequently underwent coronary artery bypass grafting surgery. He also has a history of hypertension, prior stenting of the LAD in 2004, diabetes, hyperlipidemia, paroxysmal H fibrillation and known bilateral ulcerations of his legs. He presented to the hospital with symptoms of significant bilateral knee pain with left greater than right. Was also noted to have pleural effusions. Yesterday he underwent thoracentesis with aspiration of 150 ML's. This morning, his resting comfortably in bed. He continues to complain of significant left knee pain but his breathing is significantly improved compared to yesterday. He is back on his oral anticoagulation. Laboratory values this morning showed a hemoglobin of 9.3, BUNs 64 and creatinine 2.09. Objective - Vital Signs Vital signs: Vital Signs Temp 98.3 F 01/20/19 07:53 Pulse 90 01/20/19 07:53 Resp 20 01/20/19 07:53 BP 112/65 01/20/19 07:53 Pulse Ox 94 L 01/20/19 07:53 Intake & Output 01/19/19 01/20/19 01/20/19 18:59 06:59 18:59 Intake Total 1128 240 Output Total 600 375 Balance 528 -375 240 Weight 84.3 kg Intake: Oral 1128 240 Output: Urine 600 375 Other: Voiding Method Indwelling Catheter Indwelling Catheter Indwelling Catheter # Voids 1 # Bowel Movements 2 1 - Exam PHYSICAL EXAMINATION: HEENT: Head is atraumatic, normocephalic. Pupils equal, round. Neck is supple. There is no elevated jugular venous pressure. HEART EXAMINATION: Heart sounds irregularly irregular, S1 and S2 with a systolic murmur. CHEST EXAMINATION: Lungs reveal diminished air entry with few faint crackles bilateral bases. No chest wall tenderness is noted on palpation or with deep breathing. Midline chest incision clean and dry with minimal redness noted ABDOMEN: Soft, nontender. Bowel sounds are heard. No organomegaly noted. EXTREMITIES: 1+ peripheral pulses with evidence of bilateral lower extremity peripheral edema and no calf tenderness noted. NEUROLOGIC patient is awake, alert and oriented x3. . - Labs CBC & Chem 7: 01/20/19 07:21 01/20/19 07:21 Labs: Abnormal Lab Results - Last 24 Hours (Table) 01/19/19 01/19/19 01/20/19 Range/Units 16:27 21:11 02:57 RBC (4.30-5.90) m/uL Hgb (13.0-17.5) gm/dL Hct (39.0-53.0) % MCH (25.0-35.0) pg MCHC (31.0-37.0) g/dL RDW (11.5-15.5) % Neutrophils # (1.3-7.7) k/uL Lymphocytes # (1.0-4.8) k/uL Sodium (137-145) mmol/L Chloride (98-107) mmol/L Carbon Dioxide (22-30) mmol/L BUN (9-20) mg/dL Creatinine (0.66-1.25) mg/dL Glucose (74-99) mg/dL POC Glucose (mg/dL) 127 H 237 H 117 H (75-99) mg/dL Calcium (8.4-10.2) mg/dL 01/20/19 01/20/19 01/20/19 Range/Units 07:21 07:21 11:12 RBC 3.73 L (4.30-5.90) m/uL Hgb 9.3 L (13.0-17.5) gm/dL Hct 31.4 L (39.0-53.0) % MCH 24.9 L (25.0-35.0) pg MCHC 29.6 L (31.0-37.0) g/dL RDW 16.1 H (11.5-15.5) % Neutrophils # 7.8 H (1.3-7.7) k/uL Lymphocytes # 0.5 L (1.0-4.8) k/uL Sodium 136 L (137-145) mmol/L Chloride 94 L (98-107) mmol/L Carbon Dioxide 34 H (22-30) mmol/L BUN 64 H (9-20) mg/dL Creatinine 2.09 H (0.66-1.25) mg/dL Glucose 50 L (74-99) mg/dL POC Glucose (mg/dL) 100 H (75-99) mg/dL Calcium 8.3 L (8.4-10.2) mg/dL Microbiology - Last 24 Hours (Table) 01/19/19 14:00 Gram Stain - Preliminary Pleural Fluid Body Fluid Culture - Preliminary 01/19/19 14:00 Acid Fast Bacilli Smear - Final Pleural Fluid Acid Fast Bacilli Culture - Preliminary 01/19/19 14:00 Fungal Culture - Preliminary Pleural Fluid 01/16/19 21:11 Gram Stain - Final Leg - Left Wound Culture - Final Pseudomonas aeruginosa Providencia rettgeri 01/16/19 21:11 Gram Stain - Final Leg - Right Wound Culture - Final Pseudomonas aeruginosa Klebsiella oxytoca 01/16/19 15:35 Blood Culture - Preliminary Blood No Growth after 72 hours Assessment and Plan Assessment: #1 bilateral knee discomfort with possible cellulitis and evidence of s ignificant ulcerations bilaterally, elevated white blood cell count #2 bilateral pleural effusion #3 recent coronary artery bypass grafting surgery in November #4 atrial flutter with controlled ventricular response, typical #5 diabetes #6 hypertension #7 hyperlipidemia #8 remote history of nicotine dependence #9 mild renal insufficiency #10 hypokalemia Plan: From Cardiology's perspective, continue current regimen. Continue anticoagulation. Continue to monitor renal function and electrolytes. We will continue to follow the patient and make further recommendations accordingly. L[employer]ER note has been reviewed, I agree with a documented findings and plan of care. Patient was seen and examined.
--- NOTE | 2019-01-20 11:52 | P.PN ---
Subjective Progress Note Date: 01/20/19 Principal diagnosis: Bilateral pleural effusions, right greater than the left This is 78-year-old white male patient of Saida Roman PA-C, from the [facility], who recently had a non-ST elevated myocardial infarction, and underwent four-vessel coronary artery bypass grafting using the left internal mammary artery to the LAD, reverse SVG to the diagonal, reverse SVG to the OM 1, and to the distal branch of the circumflex artery, bilateral pulmonary vein isolation using radiofrequency and AtriCure clamp, and left atrial appendage exclusion, on 12/20/[address] Rivero. Patient also had a right-sided pleural effusion with thoracentesis and removal of 900 mL of transudative pleural fluid with negative cytology. Medical history includes coronary artery disease with previous stents to the LAD in 2004, and previous myocardial infarction, paroxysmal atrial flutter status post cardioversion on long-term anticoagulation with Eliquis, hypertension, hyperlipidemia, uncontrolled diabetes mellitus, peripheral artery disease, chronic venous stasis ulcers to the right lower extremity, benign prostatic hypertrophy. Following his surgery patient was discharged to inpatient rehab on postoperative day 12, where he continued to work with physical, occupational and cardiac rehab. Patient was seen in follow-up by Dr. Bull the pulmonary clinic on 01/13/2019 for hospital follow-up, and patient was mildly short of breath, but no fever or chills, requiring any oxygen, and was noted to have increasing pleural effusions, and he was ordered to have follow-up outpatient chest ultrasound and outpatient thoracentesis by interventional radiology. However patient came into the hospital instead on 01/16/2019 with complaints of left knee pain, and developing blister on the left lower extremity near medial left knee over the past 2 weeks, which started to drain. Patient states the left lower leg is very tender to palpation. Admits to occasional chills. Denied any fever or night sweats. Physical exam reveals ulceration of the lateral aspect of left lower leg and the medial proximal area just distal to the knee and a lot of tenderness to palpation, with drainage of purulent material and warmth to palpation. Left leg was the harvest site for the venous graft. She also had significant leukocytosis consistent with infection. Patient denies any shortness of breath, or chest pain. Lactic acid was within normal limits, she was started on IV antibiotics with ceftriaxone and vancomycin, infectious disease service was consulted, and we're consulted in regards to bilateral pleural effusions On 01/18/2017 patient seen in follow-up on selective care unit, he is resting in bed, in no acute distress, he is on room air, room air pulse ox is 94%, afebrile, hemodynamically stable, ID service is following. There is to lower extremity cellulitis, and patient on Zosyn, and daptomycin. She continues on diuretics, he is on Zaroxolyn, oral Lasix. He is in no acute distress, no use of respiratory muscles of breathing, he states he is slightly dyspneic with exertion, but no acute distress, lung sounds reveal diminished breath sounds at the bases, right greater than the left, he is on heparin drip, his Eliquis is on hold, for possibility of right-sided thoracentesis likely tomorrow or in the next 48 hours. Today's chest x-ray was reviewed and showed small pleural effusions, cardiomegaly and congestive heart failure On 01/19/2019 patient seen in follow-up on selective care unit, he is awake and alert, in no distress, but appears weak and fatigued, room air pulse ox is 92%, he is afebrile, hemodynamically patient is stable, patient is on IV antibiotics for bilateral lower extremity cellulitis, and we're following him in regards to bilateral pleural effusions, right greater than the left. Patient continues on oral diuretics, we stopped his Eliquis 48 hours ago, for possibility of right- sided thoracentesis today, he is on heparin drip currently, which we will stop, and we will proceed with the right-sided thoracentesis this afternoon. Patient is agreeable to proceed. Today's lab work has been reviewed. On 01/20/2019 patient seen in follow-up on selective care unit. Awake and alert, in no acute distress, patient is status post a right-sided thoracentesis yesterday on 01/20/2019 would removal of 850 mL, and the pleural fluid analysis is still pending, pleural fluid cultures are pending, preliminary Gram stain showed no organisms. Cytology is pending. She remains on IV antibiotics for lower extremity cellulitis, wound cultures were positive for pseudomonas aeruginosa, Klebsiella, Providencia rettgeri. Patient remains on oral Lasix, and Zaroxolyn. On IV Zosyn antibiotic coverage, and ID service is following. Denies any shortness of breath, denies any chest pain, room air pulse ox is 94%, he is afebrile, reports his breathing is easier, lung sounds are diminished at the bases, improved aeration at the right lower base. Follow-up chest x-ray yesterday showed no pneumothorax, post thoracentesis, and bilateral consolidation and small effusion. Objective - Vital Signs Vital signs: Vital Signs Temp 98.3 F 01/20/19 07:53 Pulse 90 01/20/19 07:53 Resp 20 01/20/19 07:53 BP 112/65 01/20/19 07:53 Pulse Ox 94 L 01/20/19 07:53 Intake & Output 01/19/19 01/20/19 01/20/19 18:59 06:59 18:59 Intake Total 1128 240 Output Total 600 375 Balance 528 -375 240 Weight 84.3 kg Intake: Oral 1128 240 Output: Urine 600 375 Other: Voiding Method Indwelling Catheter Indwelling Catheter Indwelling Catheter # Voids 1 # Bowel Movements 2 1 - Exam GENERAL EXAM: Alert, pleasant, 78-year-old white male on room air, with a pulse ox of 94%, comfortable in no apparent distress. HEAD: Normocephalic/atraumatic. EYES: Normal reaction of pupils, equal size. Conjunctiva pink, sclera white. NOSE: Clear with pink turbinates. THROAT: No erythema or exudates. NECK: No masses, no JVD, no thyroid enlargement, no adenopathy. CHEST: No chest wall deformity. Symmetrical expansion. LUNGS: Equal air entry with diminished air entry at the bases CVS: Regular rate and rhythm, normal S1 and S2, no gallops, no murmurs, no rubs ABDOMEN: Soft, nontender. No hepatosplenomegaly, normal bowel sounds, no guarding or rigidity. EXTREMITIES: No clubbing, no cyanosis, 2+ pulses and upper and lower extremities. Bilateral lower extremity edema, ulcerations on the medial part of the left leg, with significant tenderness, ecchymosis noted to bilateral lower extremities MUSCULOSKELETAL: Muscle strength and tone normal. SPINE: No scoliosis or deformity SKIN: No rashes CENTRAL NERVOUS SYSTEM: Alert and oriented -3. No focal deficits, tone is normal in all 4 extremities. PSYCHIATRIC: Alert and oriented -3. Appropriate affect. Intact judgment and insight. - Labs CBC & Chem 7: 01/20/19 07:21 01/20/19 07:21 Labs: Abnormal Lab Results - Last 24 Hours (Table) 01/19/19 01/19/19 01/20/19 Range/Units 16:27 21:11 02:57 RBC (4.30-5.90) m/uL Hgb (13.0-17.5) gm/dL Hct (39.0-53.0) % MCH (25.0-35.0) pg MCHC (31.0-37.0) g/dL RDW (11.5-15.5) % Neutrophils # (1.3-7.7) k/uL Lymphocytes # (1.0-4.8) k/uL Sodium (137-145) mmol/L Chloride (98-107) mmol/L Carbon Dioxide (22-30) mmol/L BUN (9-20) mg/dL Creatinine (0.66-1.25) mg/dL Glucose (74-99) mg/dL POC Glucose (mg/dL) 127 H 237 H 117 H (75-99) mg/dL Calcium (8.4-10.2) mg/dL 01/20/19 01/20/19 01/20/19 Range/Units 07:21 07:21 11:12 RBC 3.73 L (4.30-5.90) m/uL Hgb 9.3 L (13.0-17.5) gm/dL Hct 31.4 L (39.0-53.0) % MCH 24.9 L (25.0-35.0) pg MCHC 29.6 L (31.0-37.0) g/dL RDW 16.1 H (11.5-15.5) % Neutrophils # 7.8 H (1.3-7.7) k/uL Lymphocytes # 0.5 L (1.0-4.8) k/uL Sodium 136 L (137-145) mmol/L Chloride 94 L (98-107) mmol/L Carbon Dioxide 34 H (22-30) mmol/L BUN 64 H (9-20) mg/dL Creatinine 2.09 H (0.66-1.25) mg/dL Glucose 50 L (74-99) mg/dL POC Glucose (mg/dL) 100 H (75-99) mg/dL Calcium 8.3 L (8.4-10.2) mg/dL Microbiology - Last 24 Hours (Table) 01/19/19 14:00 Gram Stain - Preliminary Pleural Fluid Body Fluid Culture - Preliminary 01/19/19 14:00 Acid Fast Bacilli Smear - Final Pleural Fluid Acid Fast Bacilli Culture - Preliminary 01/19/19 14:00 Fungal Culture - Preliminary Pleural Fluid 01/16/19 21:11 Gram Stain - Final Leg - Left Wound Culture - Final Pseudomonas aeruginosa Providencia rettgeri 01/16/19 21:11 Gram Stain - Final Leg - Right Wound Culture - Final Pseudomonas aeruginosa Klebsiella oxytoca 01/16/19 15:35 Blood Culture - Preliminary Blood No Growth after 72 hours Assessment and Plan Plan: Assessment: #1. Bilateral leg cellulitis, with the wound cultures positive for pseudomonas aeruginosa, Klebsiella Oxytoca, and Providencia rettgeri #2. Bilateral pleural effusions, right greater than the left, there is post right-sided thoracentesis would removal of 850 mL of serous pleural fluid, pleural fluid analysis is pending, preliminary Gram stain is negative thus far, final cultures are pending, cytology is pending #3. Acute kidney injury likely related to ATN #4. Recent non-ST elevated myocardial infarction in December 2018 #5. Triple-vessel coronary artery disease, status post four-vessel bypass, with radiofrequency ablation of the pulmonary artery, and exclusion of the left atrial appendix #6. Paroxysmal atrial flutter status post cardioversion, on Eliquis #7. Chronic congestive heart failure with systolic dysfunction #8. Type 2 diabetes mellitus #9. Hypertension #10. Hyperlipidemia #11. History of previous coronary artery disease and previous PCI, and previous episode of myocardial infarction Plan: Patient has been restarted on his Eliquis, breathing easier today, cytology and cultures of the pleural fluid are pending, pleural fluid analysis is pending, hemodynamically he is stable, his breathing is improving, no complaints of chest pain, no fever or chills, antibiotics per ID service recommendations for lower extremity cellulitis. There is multimicrobial growth on the wound cultures. We'll continue with the oral diuretics, no plans for the left-sided thoracentesis, ultrasound showed only a small pleural effusion. I performed a history & physical examination of the patient and discussed their management with my nurse practitioner, Demetria Ramos. I reviewed the nurse practitioner's note and agree with the documented findings and plan of care. Lung sounds are positive for diminished breath sounds at the bases. The findings and the impression was discussed with the patient. I attest to the documentation by the nurse practitioner. Time with Patient: Less than 30
--- NOTE | 2019-01-20 13:44 | P.PN ---
Subjective 78-year-old pleasant gentleman with recent CABG, with bilateral pleural effusion right more than left patient will undergo thoracocentesis today patient has bilateral lower leg ulcers which appear to be infected for which patient and daptomycin and Zosyn as per infectious disease. Patient respiratory status remains fairly stable but his creatinine has gone up to 1.9 patient's baseline creatinine is around 1.4. 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 01/20/2019 Patient had removal of around 850 mL of right-sided pleural fluid.peripheral fluid labs are pending but this is secondary to heart failure. The patient's creatinine has gone up a bit to 2.09 patient had an episode of nonsustained VT.patient felt much better after a pleural tap Constitutional: Denied any fatigue denied any fever. Cardio vascular: denied any chest pain, palpitations Gastrointestinal denied any nausea vomiting Pulmonary: Denied any shortness of breath cough Neurologic denied any new focal deficits All inpatient medications were reviewed and appropriate changes in these medications as dictated in the interval history and assessment and plan. Objective - Vital Signs Vital signs: Vital Signs Temp 98.3 F 01/20/19 07:53 Pulse 76 01/20/19 12:00 Resp 20 01/20/19 12:00 BP 120/59 01/20/19 12:00 Pulse Ox 95 01/20/19 12:00 Intake & Output 01/19/19 01/20/19 01/20/19 18:59 06:59 18:59 Intake Total 1128 300 Output Total 600 375 Balance 528 -375 300 Weight 84.3 kg Intake: Oral 1128 300 Output: Urine 600 375 Other: Voiding Method Indwelling Catheter Indwelling Catheter Indwelling Catheter # Voids 1 # Bowel Movements 2 1 - Exam PHYSICAL EXAMINATION: GENERAL: The patient is alert and oriented x3, not in any acute distress. Well developed, well nourished. HEENT: Pupils are round and equally reacting to light. EOMI. No scleral icterus. No conjunctival pallor. Normocephalic, atraumatic. No pharyngeal erythema. No thyromegaly. CARDIOVASCULAR: S1 and S2 present. No murmurs, rubs, or gallops. PULMONARY: Chest is clear to auscultation, no wheezing or crackles. ABDOMEN: Soft, nontender, nondistended, normoactive bowel sounds. No palpable organomegaly. MUSCULOSKELETAL: No joint swelling or deformity. EXTREMITIES: No cyanosis, clubbing, she does have bilateral leg ulcers with the pedal edema and does have Gianni bandages patient has multiple ulcers in both legs. NEUROLOGICAL: Gross neurological examination did not reveal any focal deficits. SKIN: No rashes. - Labs CBC & Chem 7: 01/20/19 07:21 01/20/19 07:21 Labs: Abnormal Lab Results - Last 24 Hours (Table) 01/19/19 01/19/19 01/20/19 Range/Units 16:27 21:11 02:57 RBC (4.30-5.90) m/uL Hgb (13.0-17.5) gm/dL Hct (39.0-53.0) % MCH (25.0-35.0) pg MCHC (31.0-37.0) g/dL RDW (11.5-15.5) % Neutrophils # (1.3-7.7) k/uL Lymphocytes # (1.0-4.8) k/uL Sodium (137-145) mmol/L Chloride (98-107) mmol/L Carbon Dioxide (22-30) mmol/L BUN (9-20) mg/dL Creatinine (0.66-1.25) mg/dL Glucose (74-99) mg/dL POC Glucose (mg/dL) 127 H 237 H 117 H (75-99) mg/dL Calcium (8.4-10.2) mg/dL 01/20/19 01/20/19 01/20/19 Range/Units 07:21 07:21 11:12 RBC 3.73 L (4.30-5.90) m/uL Hgb 9.3 L (13.0-17.5) gm/dL Hct 31.4 L (39.0-53.0) % MCH 24.9 L (25.0-35.0) pg MCHC 29.6 L (31.0-37.0) g/dL RDW 16.1 H (11.5-15.5) % Neutrophils # 7.8 H (1.3-7.7) k/uL Lymphocytes # 0.5 L (1.0-4.8) k/uL Sodium 136 L (137-145) mmol/L Chloride 94 L (98-107) mmol/L Carbon Dioxide 34 H (22-30) mmol/L BUN 64 H (9-20) mg/dL Creatinine 2.09 H (0.66-1.25) mg/dL Glucose 50 L (74-99) mg/dL POC Glucose (mg/dL) 100 H (75-99) mg/dL Calcium 8.3 L (8.4-10.2) mg/dL Microbiology - Last 24 Hours (Table) 01/19/19 14:00 Gram Stain - Preliminary Pleural Fluid Body Fluid Culture - Preliminary 01/19/19 14:00 Acid Fast Bacilli Smear - Final Pleural Fluid Acid Fast Bacilli Culture - Preliminary 01/19/19 14:00 Fungal Culture - Preliminary Pleural Fluid 01/16/19 21:11 Gram Stain - Final Leg - Left Wound Culture - Final Pseudomonas aeruginosa Providencia rettgeri 01/16/19 21:11 Gram Stain - Final Leg - Right Wound Culture - Final Pseudomonas aeruginosa Klebsiella oxytoca 01/16/19 15:35 Blood Culture - Preliminary Blood No Growth after 72 hours Assessment and Plan Plan: -left leg cellulitis with multiple ulcers which appear to be infected patient is on daptomycin and the Zosyn. patient has Pseudomonas aeruginosa and Klebsiella oxytoca daptomycin probably can be discontinued Infectious disease is following the patient -bilateral pleural effusions right greater than left considered congestive heart failure patient will had thoracocentesis the removal of of around 8 50 mL of pleural fluid from right side. patient has chronic systolic dysfunction ejection fractionwas 45-50%. Continue with oral metolazone and Lasix for now nephrology was consulted because of worsening creatinine patient clinically euvolemic except for bilateral pedal edema 1 acute renal failure on chronic kidney disease stage III acute renal failure probably secondary to excess diuresis and do not believe patient has acute tubular necrosis -Coronary artery disease with recent CABG and radiofrequency ablation of pulmonary artery -Proximal atrial flutter status post cardioversion was on Eliquis which is being held for thoracocentesis -congestive heart failure chronic systolic dysfunction EF of around 40-50% patient is fairly euvolemic actually hypovolemic at this time patient although has pedal edema which is secondary to chronic venous insufficiency -Bilateral chronic venous stasis dermatosis ulcerations -Type 2 diabetes mellitus -Hypertension -hyperlipidemia
--- NOTE | 2019-01-20 13:46 | P.PN ---
Subjective Patient is seen in follow-up for acute kidney injury on chronic kidney disease. Patient has chronic kidney disease stage III with baseline creatinine in the range of 1.2-1.5. When patient left the rehab last month creatinine was stable in the range of 1.8-1.9. Creatinine today is 2.09. Still quite edematous. Patient had right-sided thoracentesis done yesterday with 850 mL drained. Urine output has been good. No vomiting or diarrhea today. Vital signs are stable. General: The patient appeared well nourished and normally developed. HEENT: Head exam is unremarkable. Neck is without jugular venous distension. LUNGS: Lungs are clear to auscultation and percussion. Breath sounds decreased. HEART: Rate and Rhythm are regular. First and second heart sounds normal. No murmurs, rubs or gallops. ABDOMEN: Abdominal exam reveals normal bowel sounds. Non-tender and non- distended. No evidence of peritonitis. EXTREMITITES: 1+ edema. Objective - Vital Signs Vital signs: Vital Signs Temp 98.3 F 01/20/19 07:53 Pulse 76 01/20/19 12:00 Resp 20 01/20/19 12:00 BP 120/59 01/20/19 12:00 Pulse Ox 95 01/20/19 12:00 Intake & Output 01/19/19 01/20/19 01/20/19 18:59 06:59 18:59 Intake Total 1128 300 Output Total 600 375 Balance 528 -375 300 Weight 84.3 kg Intake: Oral 1128 300 Output: Urine 600 375 Other: Voiding Method Indwelling Catheter Indwelling Catheter Indwelling Catheter # Voids 1 # Bowel Movements 2 1 - Labs CBC & Chem 7: 01/20/19 07:21 01/20/19 07:21 Labs: Abnormal Lab Results - Last 24 Hours (Table) 01/19/19 01/19/19 01/20/19 Range/Units 16:27 21:11 02:57 RBC (4.30-5.90) m/uL Hgb (13.0-17.5) gm/dL Hct (39.0-53.0) % MCH (25.0-35.0) pg MCHC (31.0-37.0) g/dL RDW (11.5-15.5) % Neutrophils # (1.3-7.7) k/uL Lymphocytes # (1.0-4.8) k/uL Sodium (137-145) mmol/L Chloride (98-107) mmol/L Carbon Dioxide (22-30) mmol/L BUN (9-20) mg/dL Creatinine (0.66-1.25) mg/dL Glucose (74-99) mg/dL POC Glucose (mg/dL) 127 H 237 H 117 H (75-99) mg/dL Calcium (8.4-10.2) mg/dL 01/20/19 01/20/19 01/20/19 Range/Units 07:21 07:21 11:12 RBC 3.73 L (4.30-5.90) m/uL Hgb 9.3 L (13.0-17.5) gm/dL Hct 31.4 L (39.0-53.0) % MCH 24.9 L (25.0-35.0) pg MCHC 29.6 L (31.0-37.0) g/dL RDW 16.1 H (11.5-15.5) % Neutrophils # 7.8 H (1.3-7.7) k/uL Lymphocytes # 0.5 L (1.0-4.8) k/uL Sodium 136 L (137-145) mmol/L Chloride 94 L (98-107) mmol/L Carbon Dioxide 34 H (22-30) mmol/L BUN 64 H (9-20) mg/dL Creatinine 2.09 H (0.66-1.25) mg/dL Glucose 50 L (74-99) mg/dL POC Glucose (mg/dL) 100 H (75-99) mg/dL Calcium 8.3 L (8.4-10.2) mg/dL Microbiology - Last 24 Hours (Table) 01/19/19 14:00 Gram Stain - Preliminary Pleural Fluid Body Fluid Culture - Preliminary 01/19/19 14:00 Acid Fast Bacilli Smear - Final Pleural Fluid Acid Fast Bacilli Culture - Preliminary 01/19/19 14:00 Fungal Culture - Preliminary Pleural Fluid 01/16/19 21:11 Gram Stain - Final Leg - Left Wound Culture - Final Pseudomonas aeruginosa Providencia rettgeri 01/16/19 21:11 Gram Stain - Final Leg - Right Wound Culture - Final Pseudomonas aeruginosa Klebsiella oxytoca 01/16/19 15:35 Blood Culture - Preliminary Blood No Growth after 72 hours Assessment and Plan Plan: Assessment: 1. Acute kidney injury mostly prerenal secondary to . cardiorenal syndrome Creatinine 2.09 today. 2. Chronic kidney disease stage III with baseline creatinine in the range of 1.2-1.5 but recently it's been in the range of 1.7-1.9. 3. Coronary artery disease status post CABG in December 2018. 4. Dyspnea secondary to volume overload. 5. Left lower extremity wound maintained on antibiotics. 6. Systolic CHF with ejection fraction of 45-50%. 7. Urinary retention. Currently has Torres catheter. Maintained on Flomax. 8. Hypokalemia secondary to diuresis. Status post placement. 9. Pleural effusions status post right sided thoracentesis on January 19 - 850 mL drained. Plan: Maintain Lasix 40 mg orally twice daily. Maintain metolazone 2.5 mg once daily. Avoid nephrotoxins. Repeat electrolytes in the morning.
[2019-01-20] MEDS: MULTIVITAMINS, THERA 1 EACH TAB PO SCH (14:22)
--- NOTE | 2019-01-20 16:38 | P.PN ---
Subjective Progress Note Date: 01/20/19 Principal diagnosis: Medical history significant for severe triple-vessel coronary artery disease with non-STEMI, status post quadruple coronary artery bypass grafting surgery on 12/08/2018, acute on chronic systolic and diastolic heart failure with an ejection fraction 40-45%, moderate left ventricular systolic function with [id number] mitral valve regurgitation, history of right sided pleural effusion status post thoracentesis with 900 mL of drainage and dated fluid d rained on 12/02/2018, history of coronary artery disease with previous stents to his left anterior descending coronary artery in 2004, recent diagnosis of persistent paroxysmal atrial fibrillation status post cardioversion and is on eliquis for anticoagulation, hypertension, hyperlipidemia, uncontrolled diabetes mellitus with recent hemoglobin A1c of 7.8%, severe COPD with a recent FEV1 47% of predicted value, peripheral arterial disease, chronic venous stasis ulcers to his right lower extremity, and prostate disorder. The patient is sitting up to the bedside chair on the 3 S. cardiac stepdown unit. He is in no acute distress. He reports that he feels much improved today and feels like he is ready to be discharged to subacute rehab for further rehabilitation needs. He underwent a right-sided thoracentesis yesterday with 850 mL of fluid removed by pulmonary medicine. He reports his breathing feels much improved. Oxygen saturations are 95% on room air. Objective - Vital Signs Vital signs: Vital Signs Temp 98.3 F 01/20/19 07:53 Pulse 76 01/20/19 12:00 Resp 20 01/20/19 12:00 BP 120/59 01/20/19 12:00 Pulse Ox 95 01/20/19 12:00 Intake & Output 01/19/19 01/20/19 01/20/19 18:59 06:59 18:59 Intake Total 1128 300 Output Total 600 375 800 Balance 528 375 -500 Weight 84.3 kg 84.3 kg Intake: Oral 1128 300 Output: Urine 600 375 800 Other: Voiding Method Indwelling Catheter Indwelling Catheter Indwelling Catheter # Voids 1 # Bowel Movements 2 1 - Constitutional General appearance: Present: cooperative, no acute distress, obese - Respiratory Details: Lung sounds essentially diminished bilateral bases. Respirations are symmetrical and nonlabored. Oxygen saturation are 95% on room air. - Cardiovascular Details: Irregular rhythm and rate consistent with atrial fibrillation. S1 and S2 present, negative for S3, gallop or murmur. Remote telemetry showing atrial fibrillation heart rate 91. +1 edema to his bilateral lower extremities. - Gastrointestinal Gastrointestinal Comment(s): Abdomen is soft, nontender nondistended. Hypoactive bowel sounds all 4 abdom inal quadrants. No guarding or rigidity. No organomegaly. Tolerating oral intake. - Genitourinary Genitourinary Comment(s): Torres catheter for accurate I&O and history of urinary retention. Draining clear yellow urine. - Integumentary Integumentary Comment(s): Skin is warm and dry. No clubbing or cyanosis is present. Few scattered ecchymotic areas to his bilateral upper extremities. Left lower extremity with ulceration to his left lateral lower extremity. Chronic venous stasis ulcer to his right lower extremity. Midline sternal incision is clean, dry and approximated. No drainage or redness was present. Bilateral lower extremity EVH sites clean, dry and approximated. Some surrounding redness to his left lower extremity EVH site. - Neurologic Neurologic: Present: CNII-XII intact - Musculoskeletal Musculoskeletal: Present: gait normal, generalized weakness, strength equal bilaterally - Psychiatric Psychiatric: Present: A&O x's 3, appropriate affect, intact judgment & insight - Allied health notes Allied health notes reviewed: nursing - Labs CBC & Chem 7: 01/20/19 07:21 01/20/19 07:21 Labs: Abnormal Lab Results - Last 24 Hours (Table) 01/19/19 01/19/19 01/20/19 Range/Units 16:27 21:11 02:57 RBC (4.30-5.90) m/uL Hgb (13.0-17.5) gm/dL Hct (39.0-53.0) % MCH (25.0-35.0) pg MCHC (31.0-37.0) g/dL RDW (11.5-15.5) % Neutrophils # (1.3-7.7) k/uL Lymphocytes # (1.0-4.8) k/uL Sodium (137-145) mmol/L Chloride (98-107) mmol/L Carbon Dioxide (22-30) mmol/L BUN (9-20) mg/dL Creatinine (0.66-1.25) mg/dL Glucose (74-99) mg/dL POC Glucose (mg/dL) 127 H 237 H 117 H (75-99) mg/dL Calcium (8.4-10.2) mg/dL 01/20/19 01/20/19 01/20/19 Range/Units 07:21 07:21 11:12 RBC 3.73 L (4.30-5.90) m/uL Hgb 9.3 L (13.0-17.5) gm/dL Hct 31.4 L (39.0-53.0) % MCH 24.9 L (25.0-35.0) pg MCHC 29.6 L (31.0-37.0) g/dL RDW 16.1 H (11.5-15.5) % Neutrophils # 7.8 H (1.3-7.7) k/uL Lymphocytes # 0.5 L (1.0-4.8) k/uL Sodium 136 L (137-145) mmol/L Chloride 94 L (98-107) mmol/L Carbon Dioxide 34 H (22-30) mmol/L BUN 64 H (9-20) mg/dL Creatinine 2.09 H (0.66-1.25) mg/dL Glucose 50 L (74-99) mg/dL POC Glucose (mg/dL) 100 H (75-99) mg/dL Calcium 8.3 L (8.4-10.2) mg/dL Microbiology - Last 24 Hours (Table) 01/19/19 14:00 Gram Stain - Preliminary Pleural Fluid Body Fluid Culture - Preliminary 01/19/19 14:00 Acid Fast Bacilli Smear - Final Pleural Fluid Acid Fast Bacilli Culture - Preliminary 01/19/19 14:00 Fungal Culture - Preliminary Pleural Fluid 01/16/19 21:11 Gram Stain - Final Leg - Left Wound Culture - Final Pseudomonas aeruginosa Providencia rettgeri 01/16/19 21:11 Gram Stain - Final Leg - Right Wound Culture - Final Pseudomonas aeruginosa Klebsiella oxytoca 01/16/19 15:35 Blood Culture - Preliminary Blood No Growth after 72 hours Assessment and Plan Assessment: 1. Chronic venous stasis ulcer to his right lower extremity 2. Cellulitis to his left lower extremity, left knee pain 3. Leukocytosis 4. Chronic kidney disease stage III 5. Coronary artery disease status post coronary artery bypass grafting surgery 6. History of non-STEMI 7. Acute on chronic systolic and diastolic congestive heart failure 8. History of atrial flutter 9. Diabetes mellitus type 2, uncontrolled 10. Hypertension 11. Hyperlipidemia 12. Gastroesophageal reflux disease 13. Osteoarthritis 14. History of prostate disorder, Torres catheter in place 15. Remote history of nicotine dependence 16. History of right pleural effusion status post thoracentesis 17. Peripheral vascular disease 18. Right pleural effusion, status post right thoracentesis with 800 mL of fluid drained today 01/19/2019 Plan: 1. Continue aspirin, statin and beta alfred. 2. Continue Eliquis. 3. Encourage incentive spirometry use 10 times every hour while awake. 4. Will monitor labs, chest x-rays. Electrolyte replacement per protocol. 5. Pain control with current medication regimen. 6. Medical and Insulin management per primary care service 7. Increase activity, ambulate as tolerated. PT/OT/cardiac rehab following. 8. Bronchodilators per pulmonology. 9. GI/DVT prophylaxis. 10. plant care worker following for possible need for subacute rehab placement upon discharge. 13. Local wound care and antibiotic management per infectious disease. 14. Okay to discharge to subacute rehab per cardiothoracic surgery service when okay with primary care service. 15. More recommendations to follow based on patient's clinical course. Time with Patient: Greater than 30
[2019-01-20 16:48] LABS: Glucose,Whole Blood 156 mg/dL (75-99)
[2019-01-20] MEDS: ATORVASTATIN 80 MG TAB PO SCH (20:06)
[2019-01-20] MEDS: MELATONIN 3 MG TABLET PO SCH (20:06)
[2019-01-20 20:43] LABS: Glucose,Whole Blood 237 mg/dL (75-99)
[2019-01-20] MEDS: INSULIN DETEMIR (LEVEMIR) 100 UNIT/ML SYR SQ SCH (21:08)
--- NOTE | 2019-01-20 23:10 | P.PN ---
Subjective Progress Note Date: 01/20/19 78-year-old gentleman with a known history of coronary disease who in November 2018 suffered a non-ST elevated myocardial infarction. Eversion at the present time reveal evidence of severe coronary disease and constantly was taken to the operating room and a her artery bypass graft procedure was performed including GONZALEZ to LAD as well as saphenous grafts from aorta to the first obtuse marginal as well as the distal PDA. The patient postoperatively had significant difficulties with effusion and underwent thoracentesis on 2 events. Eventually improved and was sent to rehabilitation. As related after his discharge from rehab went to the home setting but there was difficulties with the transition. The family relates that the patient is a and receives his medications from that source. Apparently time of his discharge he was at least 4 days before they're able to get most of his medications according his insulin for use at home. The patient then started to show some improvement. He had physical therapy session. The following day he became miserable with severe pain especi ally into his left leg. It escalated the point that he could not walk and constantly his family brought him to the emergency center and he has been admitted. He has a known history of significant lower extremity ulcerations, with these as well as a new onset pain in the left leg the consult was re quested. The patient is denying fevers or chills. Continues to have significant pain to the left leg and has difficulty trying to bear weight because it is so painful. 01/18/2019 reveals patient to be feeling slightly better. Patient is comfortable improved. The left leg is definitely with less discomfort. 01/19/2019 patient continues to have improvement. There is less erythema. Ulcerations are improving. 01/20/2019 reveals the patient had further improvement. Pain to the leg is improved edema is improved-assisted ambulation has improved. Objective - Vital Signs Vital signs: Vital Signs Temp 97.6 F 01/20/19 20:00 Pulse 92 01/20/19 20:00 Resp 20 01/20/19 20:00 BP 124/73 01/20/19 20:00 Pulse Ox 94 L 01/20/19 20:00 Intake & Output 01/20/19 01/20/19 01/21/19 06:59 18:59 06:59 Intake Total 560 Output Total 079 764 510 Balance -791 -315 -175 Weight 84.3 kg 84.3 kg Intake: Oral 560 Output: Urine 375 875 175 Other: Voiding Method Indwelling Catheter Indwelling Catheter Toilet Urinal # Voids 1 1 # Bowel Movements 2 1 - Exam HEENT: Anicteric conjunctiva are pink and moist nasal mucosa grossly intact without significant lesions, there is no thrush. Neck: The neck is supple without significant lymphadenopathy or thyromegaly. Lungs: Good bilateral air entry without significant crackles or wheezing. There is no significant bronchial sounds. There is no egophony or dullness. Heart: Regular rate and rhythm with an audible S1-S2, no S3 no S4. There is no significant murmur click or rub, PMI was nondisplaced. Abdomen: Positive bowel sounds soft and nontender without palpable masses or organomegaly. There was no guarding or rebound. Extremities: Upper extremities with diffuse small healing ecchymosis. Lower extremities no evidence of the multiple ulcerations. Please see nursing photography. Right lower extremity shows evidence of the 3 ulcerations with the most proximal medial having some slough. The left lateral ulceration is a bit more acute and apparently was a blister that recently open. There is some surrounding erythema at that site.The severe tenderness of the left medial thigh has markedly improved today. The left thigh medial aspect is extremely tender to touch and had evidence of the healing ecchymosis. Right thigh also has healing ecchymosis from the vein harvest. Neuro: Awake alert oriented to person place and time. There are no acute new gross focal sensory motor deficits. - Labs CBC & Chem 7: 01/20/19 07:21 01/20/19 07:21 Labs: Abnormal Lab Results - Last 24 Hours (Table) 01/20/19 01/20/19 01/20/19 Range/Units 02:57 07:21 07:21 RBC 3.73 L (4.30-5.90) m/uL Hgb 9.3 L (13.0-17.5) gm/dL Hct 31.4 L (39.0-53.0) % MCH 24.9 L (25.0-35.0) pg MCHC 29.6 L (31.0-37.0) g/dL RDW 16.1 H (11.5-15.5) % Neutrophils # 7.8 H (1.3-7.7) k/uL Lymphocytes # 0.5 L (1.0-4.8) k/uL Sodium 136 L (137-145) mmol/L Chloride 94 L (98-107) mmol/L Carbon Dioxide 34 H (22-30) mmol/L BUN 64 H (9-20) mg/dL Creatinine 2.09 H (0.66-1.25) mg/dL Glucose 50 L (74-99) mg/dL POC Glucose (mg/dL) 117 H (75-99) mg/dL Calcium 8.3 L (8.4-10.2) mg/dL 01/20/19 01/20/19 01/20/19 Range/Units 11:12 16:47 20:42 RBC (4.30-5.90) m/uL Hgb (13.0-17.5) gm/dL Hct (39.0-53.0) % MCH (25.0-35.0) pg MCHC (31.0-37.0) g/dL RDW (11.5-15.5) % Neutrophils # (1.3-7.7) k/uL Lymphocytes # (1.0-4.8) k/uL Sodium (137-145) mmol/L Chloride (98-107) mmol/L Carbon Dioxide (22-30) mmol/L BUN (9-20) mg/dL Creatinine (0.66-1.25) mg/dL Glucose (74-99) mg/dL POC Glucose (mg/dL) 100 H 156 H 237 H (75-99) mg/dL Calcium (8.4-10.2) mg/dL Microbiology - Last 24 Hours (Table) 01/16/19 15:35 Blood Culture - Preliminary Blood No Growth after 96 hours 01/19/19 14:00 Gram Stain - Preliminary Pleural Fluid Body Fluid Culture - Preliminary 01/19/19 14:00 Acid Fast Bacilli Smear - Final Pleural Fluid Acid Fast Bacilli Culture - Preliminary Laboratory Results WBC 9.8 k/uL (3.8-10.6) 01/20/19 07:21 RBC 3.73 m/uL (4.30-5.90) L 01/20/19 07:21 Hgb 9.3 gm/dL (13.0-17.5) L 01/20/19 07:21 Hct 31.4 % (39.0-53.0) L 01/20/19 07:21 MCV 84.0 fL (80.0-100.0) 01/20/19 07:21 MCH 24.9 pg (25.0-35.0) L 01/20/19 07:21 MCHC 29.6 g/dL (31.0-37.0) L 01/20/19 07:21 RDW 16.1 % (11.5-15.5) H 01/20/19 07:21 Plt Count 256 k/uL (150-450) 01/20/19 07:21 Neutrophils % 80 % 01/20/19 07:21 Lymphocytes % 5 % 01/20/19 07:21 Monocytes % 6 % 01/20/19 07:21 Eosinophils % 6 % 01/20/19 07:21 Basophils % 1 % 01/20/19 07:21 Neutrophils # 7.8 k/uL (1.3-7.7) H 01/20/19 07:21 Lymphocytes # 0.5 k/uL (1.0-4.8) L 01/20/19 07:21 Monocytes # 0.6 k/uL (0-1.0) 01/20/19 07:21 Eosinophils # 0.6 k/uL (0-0.7) 01/20/19 07:21 Basophils # 0.1 k/uL (0-0.2) 01/20/19 07:21 Hypochromasia Marked 01/20/19 07:21 Poikilocytosis Slight 01/20/19 07:21 Anisocytosis Slight 01/20/19 07:21 ESR mm/hr (0-15) 01/16/19 15:35 PT 11.6 sec (9.0-12.0) 01/17/19 15:30 INR 1.1 (<1.2) 01/17/19 15:30 APTT 46.4 sec (22.0-30.0) H 01/18/19 02:05 Sodium 136 mmol/L (137-145) L 01/20/19 07:21 Potassium 3.7 mmol/L (3.5-5.1) 01/20/19 07:21 Chloride 94 mmol/L (98-107) L 01/20/19 07:21 Carbon Dioxide 34 mmol/L (22-30) H 01/20/19 07:21 Anion Gap 8 mmol/L 01/20/19 07:21 BUN 64 mg/dL (9-20) H 01/20/19 07:21 Creatinine 2.09 mg/dL (0.66-1.25) H 01/20/19 07:21 Est GFR (CKD-EPI)AfAm 35 (>60 ml/min/1.73 sqM) 01/20/19 07:21 Est GFR (CKD-EPI)NonAf 30 (>60 ml/min/1.73 sqM) 01/20/19 07:21 Glucose 50 mg/dL (74-99) L 01/20/19 07:21 POC Glucose (mg/dL) 237 mg/dL (75-99) H 01/20/19 20:42 POC Glu [employer] ID Yakelin Keene 01/20/19 20:42 Plasma Lactic Acid Gutierrez 1.3 mmol/L (0.7-2.0) 01/16/19 15:35 Calcium 8.3 mg/dL (8.4-10.2) L 01/20/19 07:21 Magnesium 2.1 mg/dL (1.6-2.3) 01/20/19 07:21 Total Bilirubin 0.7 mg/dL (0.2-1.3) 01/16/19 15:35 AST 27 U/L (17-59) 01/16/19 15:35 ALT 26 U/L (21-72) 01/16/19 15:35 Alkaline Phosphatase 229 U/L (38-126) H 01/16/19 15:35 C-Reactive Protein 86.0 mg/L (<10.0) H 01/16/19 15:35 NT-Pro-B Natriuret Pep 9530 pg/mL 01/16/19 15:35 Total Protein 6.0 g/dL (6.3-8.2) L 01/16/19 15:35 Albumin 3.2 g/dL (3.5-5.0) L 01/16/19 15:35 Urine Color Yellow 01/16/19 20:30 Urine Appearance Cloudy (Clear) 01/16/19 20:30 Urine pH 6.5 (5.0-8.0) 01/16/19 20:30 Ur Specific [place] 1.017 (1.001-1.035) 01/16/19 20:30 Urine Protein 2+ (Negative) H 01/16/19 20:30 Urine Glucose (UA) Negative (Negative) 01/16/19 20:30 Urine Ketones Negative (Negative) 01/16/19 20:30 Urine Blood Moderate (Negative) H 01/16/19 20:30 Urine Nitrite Negative (Negative) 01/16/19 20:30 Urine Bilirubin Negative (Negative) 01/16/19 20:30 Urine Urobilinogen 2.0 mg/dL (<2.0) 01/16/19 20:30 Ur Leukocyte Esterase Large (Negative) H 01/16/19 20:30 Urine RBC 1 /hpf (0-5) 01/16/19 20:30 Urine WBC 3 /hpf (0-5) 01/16/19 20:30 Ur Squamous Epith Cells 1 /hpf (0-4) 01/16/19 20:30 Urine Mucus Rare /hpf (None) H 01/16/19 20:30 Fluid Source Pleural 01/19/19 14:00 Fluid Color Yellow 01/19/19 14:00 Fluid Appearance Cloudy 01/19/19 14:00 Fluid RBC 1320 /uL 01/19/19 14:00 Fluid Nucleated Cells 80 /uL 01/19/19 14:00 Fluid Polynuclear WBCs 15 % 01/19/19 14:00 Fluid Mononuclear WBCs 85 % 01/19/19 14:00 Virus Source See Below 01/19/19 14:00 Viral Test See Below 01/19/19 14:00 Virus Analysis Interp See Below 01/19/19 14:00 Microbiology 01/16/19 15:35 Blood Blood Culture - Preliminary No Growth after 96 hours 01/19/19 14:00 Pleural Fluid Gram Stain - Preliminary 01/19/19 14:00 Pleural Fluid Body Fluid Culture - Preliminary 01/19/19 14:00 Pleural Fluid Acid Fast Bacilli Smear - Final 01/19/19 14:00 Pleural Fluid Acid Fast Bacilli Culture - Preliminary 01/19/19 14:00 Pleural Fluid Fungal Culture - Preliminary 01/16/19 21:11 Leg - Left Gram Stain - Final 01/16/19 21:11 Leg - Left Wound Culture - Final Pseudomonas aeruginosa Providencia rettgeri 01/16/19 21:11 Leg - Right Gram Stain - Final 01/16/19 21:11 Leg - Right Wound Culture - Final Pseudomonas aeruginosa Klebsiella oxytoca Assessment and Plan (1) Left leg cellulitis Narrative/Plan: 78-year-old male presents to the hospital with increasing pain to the left leg to the point that he was having difficulty in relating to the severity of the pain. As noted he has status post recent non-ST elevated myocardial infarction with coronary artery bypass grafting procedure. The patient did finish his stay at rehab and was back to home when he had the sudden onset of the pain to the left leg after a physical therapy session. If this time is concerned with the localized tenderness to possible deep venous thrombosis in the duplexes been requested. Local wound care with therahoney products have been requested. Elevation of the limbs well he is at rest Ensuring good diabetes care with control of blood glucose and adequate protein intake For antibiotic therapy is initiated Zosyn and vancomycin. The creatinine is elevated and constantly we'll alter vancomycin to daptomycin for now. We'll de- escalate Zosyn once culture results are available. Leukocytosis likely the basis of the cellulitis to the left lower extremity possibly deep venous thrombosis. 01/18/2019 the patient is feeling somewhat better today. Intense pain left thigh is improved. Swelling is also slightly improved. Denies other acute difficulties at this time. Seems to responding well to current antibiotic therapy for the cellulitis to left lower extremity. Ulcerations are being wayne regi. Evaluation by his cardiovascular surgical team is occurring. Duplexes negative for any deep venous thrombosis. 01/19/2019 patient has further improvement of the intense pain to the left leg. It's now minimal. The swelling and erythema improved. Ulcerations have less erythema. Responding well to current antibiotic therapy of Zosyn. No evidence of any deep venous thrombosis. Cellulitis is improving. Wound culture with pseudomonas, Klebsiella, and providentia species. This also remains an excellent choice. As he improves and is being ready for discharge to home there is a potential for transitioning antibiotic therapy to ciprofloxacin to complete the treatment for the polymicrobial gram-negative infection of the ulcers and skin. The care is discussed with his family members. 01/20/2019 patient is having some further improvement. He is responding well to the current antibiotic therapy for the polymicrobial gram-negative infection. Local wound care continues. Questions are answered. Current Visit: Yes Status: Acute Code(s): L03.116 - CELLULITIS OF LEFT LOWER LIMB SNOMED Code(s): 389820812 (2) Chronic venous hypertension (idiopathic) with ulcer of bilateral lower extremity Current Visit: Yes Status: Acute Code(s): I87.313 - CHRONIC VENOUS HYPERTENSION W ULCER OF BILATERAL LOW EXTRM; L97.919 - NON-PRS CHRONIC ULC UNSP PRT OF R LOW LEG W UNSP SEVERITY; L97.929 - NON-PRS CHRONIC ULC UNSP PRT OF L LOW LEG W UNSP SEVERITY SNOMED Code(s): 468434998137527
[2019-01-21 06:03] LABS: Glucose,Whole Blood 133 mg/dL (75-99)
[2019-01-21] MEDS: ASCORBIC ACID 500 MG TAB PO SCH ×2 (06:33→16:01)
[2019-01-21] MEDS: INSULIN ASPART (NovoLOG) 100 UNIT/ML VIAL SQ SCH ×4 (06:34→20:47)
[2019-01-21 08:10] LABS: Calcium 8.7 mg/dL (8.4-10.2); Potassium 4.1 mmol/L (3.5-5.1)
[2019-01-21 08:12] LABS: Anisocytosis Slight; Basophils # (A) 0.1 k/uL (0-0.2); Basophils % (A) 1 %; Eosinophils % (A) 8 %; HCT 33.9 % (39.0-53.0); HGB 9.9 gm/dL (13.0-17.5); Hypochromasia Marked; Lymphocytes # (A) 0.5 k/uL (1.0-4.8); Lymphocytes % (A) 4 %; MCH 24.5 pg (25.0-35.0); MCHC 29.3 g/dL (31.0-37.0); MCV 83.9 fL (80.0-100.0); Mean Platelet Volume 7.2; Monocytes # (A) 0.8 k/uL (0-1.0); Monocytes % (A) 6 %; Neutrophils # (A) 9.9 k/uL (1.3-7.7); Neutrophils % (A) 79 %; Platelet Count 315 k/uL (150-450); Poikilocytosis Slight; RBC 4.04 m/uL (4.30-5.90); RDW 16.3 % (11.5-15.5); WBC 12.5 k/uL (3.8-10.6)
[2019-01-21] MEDS: FERROUS SULFATE 325 MG TAB PO SCH (08:24)
[2019-01-21] MEDS: hydrALAZINE HCL 25 MG TAB PO SCH ×2 (08:24→20:46)
[2019-01-21] MEDS: FAMOTIDINE 20 MG TAB PO SCH (08:24)
[2019-01-21] MEDS: APIXABAN 5 MG TAB PO SCH ×2 (08:24→20:46)
[2019-01-21] MEDS: FUROSEMIDE 40 MG TAB PO SCH (08:24)
[2019-01-21] MEDS: PIPERACILLIN-TAZOBACTAM 3.375 GM in SODIUM CHLORIDE 0.9% 100 ML IVPB SCH ×4 (08:29→23:17)
[2019-01-21] MEDS: METOLAZONE 2.5 MG TAB PO SCH (08:29)
[2019-01-21] MEDS: TAMSULOSIN 0.4 MG CAP.ER.24H PO SCH ×2 (08:29→20:46)
[2019-01-21] MEDS: METOPROLOL TARTRATE 25 MG TAB PO SCH ×2 (08:29→20:46)
--- NOTE | 2019-01-21 11:06 | P.PN ---
Subjective Patient is seen in follow-up for acute kidney injury on chronic kidney disease. Patient has chronic kidney disease stage III with baseline creatinine in the range of 1.2-1.5. When patient left the rehab last month creatinine was stable in the range of 1.8-1.9. Creatinine today is 2.18. Lower extremity edema improving. Patient had right-sided thoracentesis done on January 19 with 850 mL drained. Urine output has been good. Torres catheter was removed yesterday. No vomiting. Does admit to loose bowel movements. Vital signs are stable. General: The patient appeared well nourished and normally developed. HEENT: Head exam is unremarkable. Neck is without jugular venous distension. LUNGS: Lungs are clear to auscultation and percussion. Breath sounds decreased. HEART: Rate and Rhythm are regular. First and second heart sounds normal. No murmurs, rubs or gallops. ABDOMEN: Abdominal exam reveals normal bowel sounds. Non-tender and non-d istended. No evidence of peritonitis. EXTREMITITES: 1+ edema. Objective - Vital Signs Vital signs: Vital Signs Temp 97.7 F 01/21/19 08:35 Pulse 79 01/21/19 08:35 Resp 18 01/21/19 08:35 BP 110/59 01/21/19 08:35 Pulse Ox 92 L 01/21/19 08:35 Intake & Output 01/20/19 01/21/19 01/21/19 18:59 06:59 18:59 Intake Total 560 400 Output Total 875 325 Balance -315 75 Weight 84.3 kg 83.7 kg Intake: Intake, IV Titration 100 Amount Piperacillin-Tazobactam 3 100 .375 gm In Sodium Chloride 0.9% 100 ml @ 25 mls/hr IVPB Q8HR [facility] Rx# :[id number] Oral 560 300 Output: Urine 875 175 Post Void Residual 150 Other: Voiding Method Indwelling Catheter Toilet Toilet Urinal Urinal # Voids 1 1 # Bowel Movements 1 1 - Labs CBC & Chem 7: 01/21/19 07:31 01/21/19 07:31 Labs: Abnormal Lab Results - Last 24 Hours (Table) 01/20/19 01/20/19 01/20/19 Range/Units 11:12 16:47 20:42 WBC (3.8-10.6) k/uL RBC (4.30-5.90) m/uL Hgb (13.0-17.5) gm/dL Hct (39.0-53.0) % MCH (25.0-35.0) pg MCHC (31.0-37.0) g/dL RDW (11.5-15.5) % Neutrophils # (1.3-7.7) k/uL Lymphocytes # (1.0-4.8) k/uL Eosinophils # (0-0.7) k/uL Sodium (137-145) mmol/L Chloride (98-107) mmol/L Carbon Dioxide (22-30) mmol/L BUN (9-20) mg/dL Creatinine (0.66-1.25) mg/dL Glucose (74-99) mg/dL POC Glucose (mg/dL) 100 H 156 H 237 H (75-99) mg/dL 01/21/19 01/21/19 01/21/19 Range/Units 06:01 07:31 07:31 WBC 12.5 H (3.8-10.6) k/uL RBC 4.04 L (4.30-5.90) m/uL Hgb 9.9 L (13.0-17.5) gm/dL Hct 33.9 L (39.0-53.0) % MCH 24.5 L (25.0-35.0) pg MCHC 29.3 L (31.0-37.0) g/dL RDW 16.3 H (11.5-15.5) % Neutrophils # 9.9 H (1.3-7.7) k/uL Lymphocytes # 0.5 L (1.0-4.8) k/uL Eosinophils # 1.0 H (0-0.7) k/uL Sodium 136 L (137-145) mmol/L Chloride 94 L (98-107) mmol/L Carbon Dioxide 35 H (22-30) mmol/L BUN 70 H (9-20) mg/dL Creatinine 2.18 H (0.66-1.25) mg/dL Glucose 127 H (74-99) mg/dL POC Glucose (mg/dL) 133 H (75-99) mg/dL Microbiology - Last 24 Hours (Table) 01/19/19 14:00 Gram Stain - Preliminary Pleural Fluid Body Fluid Culture - Preliminary 01/16/19 15:35 Blood Culture - Preliminary Blood No Growth after 96 hours Assessment and Plan Plan: Assessment: 1. Acute kidney injury mostly prerenal secondary to . cardiorenal syndrome Creatinine 2.18 today. 2. Chronic kidney disease stage III with baseline creatinine in the range of 1.2-1.5 but recently it's been in the range of 1.7-1.9. 3. Coronary artery disease status post CABG in December 2018. 4. Dyspnea secondary to volume overload. Better. 5. Left lower extremity wound maintained on antibiotics. 6. Systolic CHF with ejection fraction of 45-50%. 7. Urinary retention. Maintained on Flomax. Torres catheter removed on January 20. 8. Hypokalemia secondary to diuresis. Status post placement. Better. 9. Pleural effusions status post right sided thoracentesis on January 19 - 850 mL drained. Plan: Maintain Lasix 40 mg orally twice daily. Discontinue metolazone. Monitor postvoid residuals. Avoid nephrotoxins. Repeat electrolytes in the morning.
[2019-01-21] MEDS ORDERED: MINERAL OIL-WHITE PETROLATUM 120 GM JAR TOPICAL PRN (11:23)
[2019-01-21] MEDS: MULTIVITAMINS, THERA 1 EACH TAB PO SCH (11:27)
[2019-01-21 11:49] LABS: Glucose,Whole Blood 205 mg/dL (75-99)
--- NOTE | 2019-01-21 12:14 | P.PN ---
Subjective Progress Note Date: 01/21/19 Principal diagnosis: Bilateral pleural effusions right greater than left. This is 78-year-old white male patient of Saida Roman PA-C, from the [facility], who recently had a non-ST elevated myocardial infarction, and underwent four-vessel coronary artery bypass grafting using the left internal mammary artery to the LAD, reverse SVG to the diagonal, reverse SVG to the OM 1, and to the distal branch of the circumflex artery, bilateral pulmonary vein isolation using radiofrequency and AtriCure clamp, and left atrial appendage exclusion, on 12/20/[address] Rivero. Patient also had a right-sided pleural effusion with thoracentesis and removal of 900 mL of transudative pleural fluid with negative cytology. Medical history includes coronary artery disease with previous stents to the LAD in 2004, and previous myocardial infarction, paroxysmal atrial flutter status post cardioversion on long-term anticoagulation with Eliquis, hypertension, hyperlipidemia, uncontrolled diabetes mellitus, peripheral artery disease, chronic venous stasis ulcers to the right lower extremity, benign prostatic hypertrophy. Following his surgery patient was discharged to inpatient rehab on postoperative day 12, where he continued to work with physical, occupational and cardiac rehab. Patient was seen in follow-up by Dr. Bull the pulmonary clinic on 01/13/2019 for hospital follow-up, and patient was mildly short of breath, but no fever or chills, requiring any oxygen, and was noted to have increasing pleural effusions, and he was ordered to have follow-up outpatient chest ultrasound and outpatient thoracentesis by interventional radiology. However patient came into the hospital instead on 01/16/2019 with complaints of left knee pain, and developing blister on the left lower extremity near medial left knee over the past 2 weeks, which started to drain. Patient states the left lower leg is very tender to palpation. Admits to occasional chills. Denied any fever or night sweats. Physical exam reveals ulceration of the lateral aspect of left lower leg and the medial proximal area just distal to the knee and a lot of tenderness to palpation, with drainage of purulent material and warmth to palpation. Left leg was the harvest site for the venous graft. She also had significant leukocytosis consistent with infection. Patient denies any shortness of breath, or chest pain. Lactic acid was within normal limits, she was started on IV antibiotics with ceftriaxone and vancomycin, infectious disease service was consulted, and we're consulted in regards to bilateral pleural effusions On 01/18/2017 patient seen in follow-up on selective care unit, he is resting in bed, in no acute distress, he is on room air, room air pulse ox is 94%, afebrile, hemodynamically stable, ID service is following. There is to lower extremity cellulitis, and patient on Zosyn, and daptomycin. She continues on diuretics, he is on Zaroxolyn, oral Lasix. He is in no acute distress, no use of respiratory muscles of breathing, he states he is slightly dyspneic with exertion, but no acute distress, lung sounds reveal diminished breath sounds at the bases, right greater than the left, he is on heparin drip, his Eliquis is on hold, for possibility of right-sided thoracentesis likely tomorrow or in the next 48 hours. Today's chest x-ray was reviewed and showed small pleural effusions, cardiomegaly and congestive heart failure On 01/19/2019 patient seen in follow-up on selective care unit, he is awake and alert, in no distress, but appears weak and fatigued, room air pulse ox is 92%, he is afebrile, hemodynamically patient is stable, patient is on IV antibiotics for bilateral lower extremity cellulitis, and we're following him in regards to bilateral pleural effusions, right greater than the left. Patient continues on oral diuretics, we stopped his Eliquis 48 hours ago, for possibility of right- sided thoracentesis today, he is on heparin drip currently, which we will stop, and we will proceed with the right-sided thoracentesis this afternoon. Patient is agreeable to proceed. Today's lab work has been reviewed. On 01/20/2019 patient seen in follow-up on selective care unit. Awake and alert, in no acute distress, patient is status post a right-sided thoracentesis yesterday on 01/20/2019 would removal of 850 mL, and the pleural fluid analysis is still pending, pleural fluid cultures are pending, preliminary Gram stain showed no organisms. Cytology is pending. She remains on IV antibiotics for lower extremity cellulitis, wound cultures were positive for pseudomonas aeruginosa, Klebsiella, Providencia rettgeri. Patient remains on oral Lasix, and Zaroxolyn. On IV Zosyn antibiotic coverage, and ID service is following. Denies any shortness of breath, denies any chest pain, room air pulse ox is 94%, he is afebrile, reports his breathing is easier, lung sounds are diminished at the bases, improved aeration at the right lower base. Follow-up chest x-ray yesterday showed no pneumothorax, post thoracentesis, and bilateral consolidation and small effusion. The patient is seen today 01/21/2018 in follow-up on the selective care unit. He is awake and alert in no acute distress. Resting quite comfortably in bed. Breathing easier. Maintaining O2 saturations in the 90s on room air. He is afebrile. Hemodynamically stable. He is status post right-sided thoracentesis with 850 MLS removed. Pathology pending. Right lower extremity wound cultures positive for pseudomonas and Klebsiella oxytoca. Left leg positive for pseudomonas aeruginosa and Providentia rettgeri. White count 12.5. Hemoglobin 9.9. Creatinine 2.18. He remains on Zosyn. Objective - Vital Signs Vital signs: Vital Signs Temp 97.7 F 01/21/19 08:35 Pulse 79 01/21/19 08:35 Resp 18 01/21/19 08:35 BP 110/59 01/21/19 08:35 Pulse Ox 92 L 01/21/19 08:35 Intake & Output 01/20/19 01/21/19 01/21/19 18:59 06:59 18:59 Intake Total 560 400 Output Total 875 325 Balance -315 75 Weight 84.3 kg 83.7 kg Intake: Intake, IV Titration 100 Amount Piperacillin-Tazobactam 3 100 .375 gm In Sodium Chloride 0.9% 100 ml @ 25 mls/hr IVPB Q8HR [facility] Rx# :[id number] Oral 560 300 Output: Urine 875 175 Post Void Residual 150 Other: Voiding Method Indwelling Catheter Toilet Toilet Urinal Urinal # Voids 1 1 # Bowel Movements 1 1 - Exam GENERAL EXAM: Alert, active, comfortable in no apparent distress. On room air. HEAD: Normocephalic. EYES: Normal reaction of pupils, equal size. NOSE: Clear with pink turbinates. THROAT: No erythema or exudates. NECK: No masses, no JVD. CHEST: No chest wall deformity. LUNGS: Equal air entry with crackles in the posterior bases. CVS: S1 and S2 normal with no audible murmur, regular rhythm. ABDOMEN: No hepatosplenomegaly, normal bowel sounds, no guarding or rigidity. SPINE: No scoliosis or deformity SKIN: No rashes CENTRAL NERVOUS SYSTEM: No focal deficits, tone is normal in all 4 extremities. EXTREMITIES: There is a bilateral lower extremities, with redness edema. - Labs CBC & Chem 7: 01/21/19 07:31 01/21/19 07:31 Labs: Abnormal Lab Results - Last 24 Hours (Table) 01/20/19 01/20/19 01/21/19 Range/Units 16:47 20:42 06:01 WBC (3.8-10.6) k/uL RBC (4.30-5.90) m/uL Hgb (13.0-17.5) gm/dL Hct (39.0-53.0) % MCH (25.0-35.0) pg MCHC (31.0-37.0) g/dL RDW (11.5-15.5) % Neutrophils # (1.3-7.7) k/uL Lymphocytes # (1.0-4.8) k/uL Eosinophils # (0-0.7) k/uL Sodium (137-145) mmol/L Chloride (98-107) mmol/L Carbon Dioxide (22-30) mmol/L BUN (9-20) mg/dL Creatinine (0.66-1.25) mg/dL Glucose (74-99) mg/dL POC Glucose (mg/dL) 156 H 237 H 133 H (75-99) mg/dL 01/21/19 01/21/19 01/21/19 Range/Units 07:31 07:31 11:38 WBC 12.5 H (3.8-10.6) k/uL RBC 4.04 L (4.30-5.90) m/uL Hgb 9.9 L (13.0-17.5) gm/dL Hct 33.9 L (39.0-53.0) % MCH 24.5 L (25.0-35.0) pg MCHC 29.3 L (31.0-37.0) g/dL RDW 16.3 H (11.5-15.5) % Neutrophils # 9.9 H (1.3-7.7) k/uL Lymphocytes # 0.5 L (1.0-4.8) k/uL Eosinophils # 1.0 H (0-0.7) k/uL Sodium 136 L (137-145) mmol/L Chloride 94 L (98-107) mmol/L Carbon Dioxide 35 H (22-30) mmol/L BUN 70 H (9-20) mg/dL Creatinine 2.18 H (0.66-1.25) mg/dL Glucose 127 H (74-99) mg/dL POC Glucose (mg/dL) 205 H (75-99) mg/dL Microbiology - Last 24 Hours (Table) 01/19/19 14:00 Gram Stain - Preliminary Pleural Fluid Body Fluid Culture - Preliminary 01/16/19 15:35 Blood Culture - Preliminary Blood No Growth after 96 hours Assessment and Plan Assessment: Assessment: #1. Bilateral leg cellulitis, with the wound cultures positive for pseudomonas aeruginosa, Klebsiella Oxytoca, and Providencia rettgeri #2. Bilateral pleural effusions, right greater than the left, there is post right-sided thoracentesis would removal of 850 mL of serous pleural fluid, pleural fluid analysis is pending, preliminary Gram stain is negative thus far, final cultures are pending, cytology is pending #3. Acute kidney injury likely related to ATN #4. Recent non-ST elevated myocardial infarction in December 2018 #5. Triple-vessel coronary artery disease, status post four-vessel bypass, with radiofrequency ablation of the pulmonary artery, and exclusion of the left atrial appendix #6. Paroxysmal atrial flutter status post cardioversion, on Eliquis #7. Chronic congestive heart failure with systolic dysfunction #8. Type 2 diabetes mellitus #9. Hypertension #10. Hyperlipidemia #11. History of previous coronary artery disease and previous PCI, and previous episode of myocardial infarction Plan: The patient was seen and evaluated by Dr. Bull. He is improving. On room air currently. No pulmonary complaints. Fluid pathology is pending. We'll continue with the current treatment plan. No plans for left-sided thoracentesis at this time. We'll continue to follow. I, the cosigning physician, performed a history & physical examination of the patient. Lungs sounds with crackles in posterior bases. Maintaining good O2 saturations in the 90s on room air. I discussed the assessment and plan of care with my nurse practitioner, Page Cervantes. I attest to the above note as dictated by her.
[2019-01-21] MEDS ORDERED: DAPTOmycin 500 MG in SODIUM CHLORIDE 0.9% 50 ML IVPB SCH (14:00)
--- NOTE | 2019-01-21 14:45 | PN ---
PROGRESS NOTE Mr. Carrasco is a 78-year-old male who presented with symptoms of worsening dyspnea, knee discomfort, and lower extremity edema. He has a known history of coronary artery disease status post coronary artery bypass grafting performed recently. He is feeling better after thoracentesis. His breathing is much better. He denies any chest pain. He continues to have some peripheral edema, although better. He has lower extremity ulceration and that has been cultured. He has been getting out of bed. He continues to be at this time on Eliquis 5 mg twice a day, aspirin 81 mg daily, iron, Lasix 40 mg twice a day, hydralazine 25 mg twice a day, insulin, metoprolol tartrate 25 mg twice a day, and Piperacillin. PHYSICAL EXAMINATION: Blood pressure 110/59 with a heart rate in 70s. Lungs with improved air exchange with a few crackles in the bases. HEART: Irregularly irregular, S1, S2. No S3. No rub noted with a systolic murmur. No diastolic murmur. ABDOMEN: Soft, nontender. EXTREMITIES: With improved edema and ulceration noted. LAB DATA: Revealed BUN and creatinine 70 and 2.18, hemoglobin of 9.9. IMPRESSION: 1. Status post coronary artery bypass grafting. 2. Recurrent pleural effusion. 3. Ulceration of lower extremities. 4. Atrial flutter. 5. Diabetes. 6. Hypertension. 7. Hyperlipidemia. 8. Renal function abnormality. RECOMMENDATION: I will cut down the dose of the Lasix to once a day. Continue the rest of his medical regimen. Follow his renal function to see if any adjustment in his dose of anticoagulation is needed. Continue to increase his level of activity. If he remains stable, hopefully he can be discharged home soon. MMODL / IJN: [id number] /
[2019-01-21 17:42] LABS: Glucose,Whole Blood 233 mg/dL (75-99)
[2019-01-21 20:44] LABS: Glucose,Whole Blood 281 mg/dL (75-99)
[2019-01-21] MEDS: ATORVASTATIN 80 MG TAB PO SCH (20:46)
[2019-01-21] MEDS: MELATONIN 3 MG TABLET PO SCH (20:46)
[2019-01-21] MEDS: INSULIN DETEMIR (LEVEMIR) 100 UNIT/ML SYR SQ SCH (20:47)
--- NOTE | 2019-01-21 22:48 | P.PN ---
Subjective Progress Note Date: 01/21/19 Principal diagnosis: Bilateral lower extremity cellulitis Mr. Brice ia a 78-year-old gentleman who recently had CABG, complicated bilateral pleural effusion, coming to the hospital with a chief complaint of bilateral lower extremity infected ulcers. Patient was initially started on daptomycin and Zosyn as per infectious disease Dr. Eldridge. And as the one culture grew Klebsiella and Pseudomonas, daptomycin was discontinued yesterday. Patient is currently on Zosyn. Patient also had thoracentesis done yesterday he had 850 mL removed from the right side. Today the patient is resting comfortably in bed appears to be no acute distress. Patient states that the redness in his lower extremities has improved but the pain is still the same. Patient denies having any other issues. He has mild difficulty in breathing that has improved after the fluid was drained yesterday. On review of systems Constitutional-denied any fevers or chills Cardiovascular-no chest pain or palpitations Respiratory-difficulty in breathing improving Lower extremities-redness has improved, pain is still the same GI-no abdominal pain nausea vomiting or diarrhea. Active Medications Acetaminophen (Tylenol Tab) 500 mg PO Q6HR PRN PRN Reason: Fever and/ or Pain Hydrocodone Bitart/Acetaminophen ([place] 5-325) 1 each PO Q6HR PRN PRN Reason: Pain Last Admin: 01/18/19 21:15 Dose: 1 each Documented by: Apixaban (Eliquis) 5 mg PO BID [facility] Last Admin: 01/21/19 08:24 Dose: 5 mg Documented by: Ascorbic Acid (Vitamin C) 500 mg PO BID-W/MEALS [facility] Last Admin: 01/21/19 06:33 Dose: 500 mg Documented by: Aspirin (Aspirin) 81 mg PO [facility] Last Admin: 01/20/19 20:06 Dose: 81 mg Documented by: Atorvastatin Calcium (Lipitor) 80 mg PO [facility] Last Admin: 01/20/19 20:06 Dose: 80 mg Documented by: Famotidine (Pepcid) 20 mg PO DAILY [facility] Last Admin: 01/21/19 08:24 Dose: 20 mg Documented by: Ferrous Sulfate (Feosol) 325 mg PO DAILY [facility] Last Admin: 01/21/19 08:24 Dose: 325 mg Documented by: Furosemide (Lasix) 40 mg PO 0900,1800 [facility] Last Admin: 01/21/19 08:24 Dose: 40 mg Documented by: Hydralazine HCl (Apresoline) 25 mg PO BID [facility] Last Admin: 01/21/19 08:24 Dose: 25 mg Documented by: Piperacillin Sod/Tazobactam (Sod 3.375 gm/ Sodium Chloride) 100 mls @ 25 mls/hr IVPB Q8HR [facility] Last Admin: 01/21/19 08:32 Dose: 25 mls/hr Documented by: Insulin Aspart (Novolog) 0 unit SQ [facility]; Protocol Last Admin: 01/21/19 06:34 Dose: 1 unit Documented by: Insulin Detemir (Levemir) 10 unit SQ [facility] Last Admin: 01/20/19 21:08 Dose: 10 unit Documented by: Melatonin (Melatonin) 3 mg PO [facility] Last Admin: 01/20/19 20:06 Dose: 3 mg Documented by: Metoprolol Tartrate (Lopressor) 25 mg PO BID [facility] Last Admin: 01/21/19 08:29 Dose: 25 mg Documented by: Multi-Ingred Cream/Lotion/Oil/Oint (Eucerin Cream) 1 applic TOPICAL BID PRN PRN Reason: Dry Skin Multivitamins (Theragran) 1 each PO DAILY@1200 [facility] Last Admin: 01/21/19 11:27 Dose: 1 each Documented by: Naloxone HCl (Narcan) 0.2 mg IV Q2M PRN PRN Reason: Opioid Reversal Tamsulosin HCl (Flomax) 0.4 mg PO BID [facility] Last Admin: 01/21/19 08:29 Dose: 0.4 mg Documented by: Temazepam (Restoril) 15 mg PO HS PRN PRN Reason: Insomnia Objective - Vital Signs Vital signs: Vital Signs Temp 97.7 F 01/21/19 08:35 Pulse 79 01/21/19 08:35 Resp 18 01/21/19 08:35 BP 110/59 01/21/19 08:35 Pulse Ox 92 L 01/21/19 08:35 Intake & Output 01/20/19 01/21/19 01/21/19 18:59 06:59 18:59 Intake Total 560 400 Output Total 875 325 Balance -315 75 Weight 84.3 kg 83.7 kg Intake: Intake, IV Titration 100 Amount Piperacillin-Tazobactam 3 100 .375 gm In Sodium Chloride 0.9% 100 ml @ 25 mls/hr IVPB Q8HR [facility] Rx# :[id number] Oral 560 300 Output: Urine 875 175 Post Void Residual 150 Other: Voiding Method Indwelling Catheter Toilet Toilet Urinal Urinal # Voids 1 1 # Bowel Movements 1 1 - Exam PHYSICAL EXAMINATION: GENERAL: The patient is alert and oriented x3, not in any acute distress. Well developed, well nourished. HEENT: Pupils are round and equally reacting to light. EOMI. No scleral icterus. No conjunctival pallor. Normocephalic, atraumatic. CARDIOVASCULAR: S1 and S2 present. No murmurs, rubs, or gallops. PULMONARY: Decreased breath sounds on the right lower lobe. Left side breath sounds normal. Mild crackles at the lower lung bases. ABDOMEN: Soft, nontender, nondistended, normoactive bowel sounds. No palpable organomegaly. MUSCULOSKELETAL: No joint swelling or deformity. EXTREMITIES: Patient has multiple ulcers on both his lower extremities. Edema seems to be improving. Patient states the redness has improved. NEUROLOGICAL: Gross neurological examination did not reveal any focal deficits. SKIN: No rashes. - Labs CBC & Chem 7: 01/21/19 07:31 01/21/19 07:31 Labs: Abnormal Lab Results - Last 24 Hours (Table) 01/20/19 01/20/19 01/21/19 Range/Units 16:47 20:42 06:01 WBC (3.8-10.6) k/uL RBC (4.30-5.90) m/uL Hgb (13.0-17.5) gm/dL Hct (39.0-53.0) % MCH (25.0-35.0) pg MCHC (31.0-37.0) g/dL RDW (11.5-15.5) % Neutrophils # (1.3-7.7) k/uL Lymphocytes # (1.0-4.8) k/uL Eosinophils # (0-0.7) k/uL Sodium (137-145) mmol/L Chloride (98-107) mmol/L Carbon Dioxide (22-30) mmol/L BUN (9-20) mg/dL Creatinine (0.66-1.25) mg/dL Glucose (74-99) mg/dL POC Glucose (mg/dL) 156 H 237 H 133 H (75-99) mg/dL 01/21/19 01/21/19 01/21/19 Range/Units 07:31 07:31 11:38 WBC 12.5 H (3.8-10.6) k/uL RBC 4.04 L (4.30-5.90) m/uL Hgb 9.9 L (13.0-17.5) gm/dL Hct 33.9 L (39.0-53.0) % MCH 24.5 L (25.0-35.0) pg MCHC 29.3 L (31.0-37.0) g/dL RDW 16.3 H (11.5-15.5) % Neutrophils # 9.9 H (1.3-7.7) k/uL Lymphocytes # 0.5 L (1.0-4.8) k/uL Eosinophils # 1.0 H (0-0.7) k/uL Sodium 136 L (137-145) mmol/L Chloride 94 L (98-107) mmol/L Carbon Dioxide 35 H (22-30) mmol/L BUN 70 H (9-20) mg/dL Creatinine 2.18 H (0.66-1.25) mg/dL Glucose 127 H (74-99) mg/dL POC Glucose (mg/dL) 205 H (75-99) mg/dL Microbiology - Last 24 Hours (Table) 01/19/19 14:00 Gram Stain - Preliminary Pleural Fluid Body Fluid Culture - Preliminary 01/16/19 15:35 Blood Culture - Preliminary Blood No Growth after 96 hours Assessment and Plan Assessment: ASSESSMENT Bilateral lower extremity cellulitis - with multiple ulcers- wound cultures showing Pseudomonas and Klebsiella Bilateral pleural effusion right more than left - status post paracentesis with removal of 8 50 mL yesterday Chronic systolic congestive heart failure- mild exacerbation Acute kidney injury- most likely secondary to cardiorenal syndrome CK D stage III Coronary artery disease status post CABG Paroxysmal atrial flutter status post cardioversion Bilateral chronic venous stasis dermatitis Type 2 diabetes mellitus Hypertension Hyperlipidemia PLAN: Continue the patient on Zosyn. Daptomycin has been discontinued yesterday. Infectious disease and following the patient. Nephrology has been consulted for his acute kidney injury. To continue Lasix 40 mg orally twice a day. Metolazone has been discontinued. Patient's lower extremity ulcers have been improving with antibiotics. Overall prognosis is guarded. Further admonitions to follow depending on the progress of the patient.
--- NOTE | 2019-01-21 22:52 | P.PN ---
Subjective Progress Note Date: 01/21/19 78-year-old gentleman with a known history of coronary disease who in November 2018 suffered a non-ST elevated myocardial infarction. Eversion at the present time reveal evidence of severe coronary disease and constantly was taken to the operating room and a her artery bypass graft procedure was performed including GONZALEZ to LAD as well as saphenous grafts from aorta to the first obtuse marginal as well as the distal PDA. The patient postoperatively had significant difficulties with effusion and underwent thoracentesis on 2 events. Eventually improved and was sent to rehabilitation. As related after his discharge from rehab went to the home setting but there was difficulties with the transition. The family relates that the patient is a and receives his medications from that source. Apparently time of his discharge he was at least 4 days before they're able to get most of his medications according his insulin for use at home. The patient then started to show some improvement. He had physical therapy session. The following day he became miserable with severe pain especi ally into his left leg. It escalated the point that he could not walk and constantly his family brought him to the emergency center and he has been admitted. He has a known history of significant lower extremity ulcerations, with these as well as a new onset pain in the left leg the consult was re quested. The patient is denying fevers or chills. Continues to have significant pain to the left leg and has difficulty trying to bear weight because it is so painful. 01/18/2019 reveals patient to be feeling slightly better. Patient is comfortable improved. The left leg is definitely with less discomfort. 01/19/2019 patient continues to have improvement. There is less erythema. Ulcerations are improving. 01/20/2019 reveals the patient had further improvement. Pain to the leg is improved edema is improved-assisted ambulation has improved. 01/21/2019 patient is feeling somewhat better today. Ulcerations remained somewhat tender but have only scant drainage. Severe pain to the left leg has resolved. Objective - Vital Signs Vital signs: Vital Signs Temp 98.6 F 01/21/19 20:00 Pulse 91 01/21/19 20:00 Resp 18 01/21/19 20:00 BP 127/72 01/21/19 20:00 Pulse Ox 94 L 01/21/19 20:00 Intake & Output 01/21/19 01/21/19 01/22/19 06:59 18:59 06:59 Intake Total 400 530 Output Total 325 110 Balance 75 530 -110 Weight 83.7 kg Intake: Intake, IV Titration 100 100 Amount Piperacillin-Tazobactam 3 100 100 .375 gm In Sodium Chloride 0.9% 100 ml @ 25 mls/hr IVPB Q8HR [facility] Rx# :[id number] Oral 300 430 Output: Urine 175 Post Void Residual 150 110 Other: Voiding Method Toilet Toilet Toilet Urinal Urinal Urinal # Voids 1 1 1 # Bowel Movements 1 1 1 - Exam HEENT: Anicteric conjunctiva are pink and moist nasal mucosa grossly intact without significant lesions, there is no thrush. Neck: The neck is supple without significant lymphadenopathy or thyromegaly. Lungs: Good bilateral air entry without significant crackles or wheezing. There is no significant bronchial sounds. There is no egophony or dullness. Heart: Regular rate and rhythm with an audible S1-S2, no S3 no S4. There is no significant murmur click or rub, PMI was nondisplaced. Abdomen: Positive bowel sounds soft and nontender without palpable masses or organomegaly. There was no guarding or rebound. Extremities: Upper extremities with diffuse small healing ecchymosis. Lower extremities no evidence of the multiple ulcerations. Please see nursing photography. Right lower extremity shows evidence of the 3 ulcerations with the most proximal medial having some slough. The left lateral ulceration is a bit more acute and apparently was a blister that recently open. There is some surr ounding erythema at that site.The severe tenderness of the left medial thigh has markedly improved today. The left thigh medial aspect is extremely tender to touch and had evidence of the healing ecchymosis. Right thigh also has healing ecchymosis from the vein harvest. Neuro: Awake alert oriented to person place and time. There are no acute new gross focal sensory motor deficits. - Labs CBC & Chem 7: 01/21/19 07:31 01/21/19 07:31 Labs: Abnormal Lab Results - Last 24 Hours (Table) 01/21/19 01/21/19 01/21/19 Range/Units 06:01 07:31 07:31 WBC 12.5 H (3.8-10.6) k/uL RBC 4.04 L (4.30-5.90) m/uL Hgb 9.9 L (13.0-17.5) gm/dL Hct 33.9 L (39.0-53.0) % MCH 24.5 L (25.0-35.0) pg MCHC 29.3 L (31.0-37.0) g/dL RDW 16.3 H (11.5-15.5) % Neutrophils # 9.9 H (1.3-7.7) k/uL Lymphocytes # 0.5 L (1.0-4.8) k/uL Eosinophils # 1.0 H (0-0.7) k/uL Sodium 136 L (137-145) mmol/L Chloride 94 L (98-107) mmol/L Carbon Dioxide 35 H (22-30) mmol/L BUN 70 H (9-20) mg/dL Creatinine 2.18 H (0.66-1.25) mg/dL Glucose 127 H (74-99) mg/dL POC Glucose (mg/dL) 133 H (75-99) mg/dL 01/21/19 01/21/19 01/21/19 Range/Units 11:38 17:28 20:42 WBC (3.8-10.6) k/uL RBC (4.30-5.90) m/uL Hgb (13.0-17.5) gm/dL Hct (39.0-53.0) % MCH (25.0-35.0) pg MCHC (31.0-37.0) g/dL RDW (11.5-15.5) % Neutrophils # (1.3-7.7) k/uL Lymphocytes # (1.0-4.8) k/uL Eosinophils # (0-0.7) k/uL Sodium (137-145) mmol/L Chloride (98-107) mmol/L Carbon Dioxide (22-30) mmol/L BUN (9-20) mg/dL Creatinine (0.66-1.25) mg/dL Glucose (74-99) mg/dL POC Glucose (mg/dL) 205 H 233 H 281 H (75-99) mg/dL Microbiology - Last 24 Hours (Table) 01/16/19 15:35 Blood Culture - Preliminary Blood No Growth after 120 hours 01/19/19 14:00 Gram Stain - Preliminary Pleural Fluid Body Fluid Culture - Preliminary Laboratory Results WBC 12.5 k/uL (3.8-10.6) H 01/21/19 07:31 RBC 4.04 m/uL (4.30-5.90) L 01/21/19 07:31 Hgb 9.9 gm/dL (13.0-17.5) L 01/21/19 07:31 Hct 33.9 % (39.0-53.0) L 01/21/19 07:31 MCV 83.9 fL (80.0-100.0) 01/21/19 07:31 MCH 24.5 pg (25.0-35.0) L 01/21/19 07:31 MCHC 29.3 g/dL (31.0-37.0) L 01/21/19 07:31 RDW 16.3 % (11.5-15.5) H 01/21/19 07:31 Plt Count 315 k/uL (150-450) 01/21/19 07:31 Neutrophils % 79 % 01/21/19 07:31 Lymphocytes % 4 % 01/21/19 07:31 Monocytes % 6 % 01/21/19 07:31 Eosinophils % 8 % 01/21/19 07:31 Basophils % 1 % 01/21/19 07:31 Neutrophils # 9.9 k/uL (1.3-7.7) H 01/21/19 07:31 Lymphocytes # 0.5 k/uL (1.0-4.8) L 01/21/19 07:31 Monocytes # 0.8 k/uL (0-1.0) 01/21/19 07:31 Eosinophils # 1.0 k/uL (0-0.7) H 01/21/19 07:31 Basophils # 0.1 k/uL (0-0.2) 01/21/19 07:31 Hypochromasia Marked 01/21/19 07:31 Poikilocytosis Slight 01/21/19 07:31 Anisocytosis Slight 01/21/19 07:31 ESR mm/hr (0-15) 01/16/19 15:35 PT 11.6 sec (9.0-12.0) 01/17/19 15:30 INR 1.1 (<1.2) 01/17/19 15:30 APTT 46.4 sec (22.0-30.0) H 01/18/19 02:05 Sodium 136 mmol/L (137-145) L 01/21/19 07:31 Potassium 4.1 mmol/L (3.5-5.1) 01/21/19 07:31 Chloride 94 mmol/L (98-107) L 01/21/19 07:31 Carbon Dioxide 35 mmol/L (22-30) H 01/21/19 07:31 Anion Gap 7 mmol/L 01/21/19 07:31 BUN 70 mg/dL (9-20) H 01/21/19 07:31 Creatinine 2.18 mg/dL (0.66-1.25) H 01/21/19 07:31 Est GFR (CKD-EPI)AfAm 33 (>60 ml/min/1.73 sqM) 01/21/19 07:31 Est GFR (CKD-EPI)NonAf 28 (>60 ml/min/1.73 sqM) 01/21/19 07:31 Glucose 127 mg/dL (74-99) H 01/21/19 07:31 POC Glucose (mg/dL) 281 mg/dL (75-99) H 01/21/19 20:42 POC Glu Electrical Engineering Manager ID Yakelin Keene 01/21/19 20:42 Plasma Lactic Acid Gutierrez 1.3 mmol/L (0.7-2.0) 01/16/19 15:35 Calcium 8.7 mg/dL (8.4-10.2) 01/21/19 07:31 Magnesium 2.1 mg/dL (1.6-2.3) 01/20/19 07:21 Total Bilirubin 0.7 mg/dL (0.2-1.3) 01/16/19 15:35 AST 27 U/L (17-59) 01/16/19 15:35 ALT 26 U/L (21-72) 01/16/19 15:35 Alkaline Phosphatase 229 U/L (38-126) H 01/16/19 15:35 C-Reactive Protein 86.0 mg/L (<10.0) H 01/16/19 15:35 NT-Pro-B Natriuret Pep 9530 pg/mL 01/16/19 15:35 Total Protein 6.0 g/dL (6.3-8.2) L 01/16/19 15:35 Albumin 3.2 g/dL (3.5-5.0) L 01/16/19 15:35 Urine Color Yellow 01/16/19 20:30 Urine Appearance Cloudy (Clear) 01/16/19 20:30 Urine pH 6.5 (5.0-8.0) 01/16/19 20:30 Ur Specific Campbell 1.017 (1.001-1.035) 01/16/19 20:30 Urine Protein 2+ (Negative) H 01/16/19 20:30 Urine Glucose (UA) Negative (Negative) 01/16/19 20:30 Urine Ketones Negative (Negative) 01/16/19 20:30 Urine Blood Moderate (Negative) H 01/16/19 20:30 Urine Nitrite Negative (Negative) 01/16/19 20:30 Urine Bilirubin Negative (Negative) 01/16/19 20:30 Urine Urobilinogen 2.0 mg/dL (<2.0) 01/16/19 20:30 Ur Leukocyte Esterase Large (Negative) H 01/16/19 20:30 Urine RBC 1 /hpf (0-5) 01/16/19 20:30 Urine WBC 3 /hpf (0-5) 01/16/19 20:30 Ur Squamous Epith Cells 1 /hpf (0-4) 01/16/19 20:30 Urine Mucus Rare /hpf (None) H 01/16/19 20:30 Fluid Source Pleural 01/19/19 14:00 Fluid Color Yellow 01/19/19 14:00 Fluid Appearance Cloudy 01/19/19 14:00 Fluid RBC 1320 /uL 01/19/19 14:00 Fluid Nucleated Cells 80 /uL 01/19/19 14:00 Fluid Polynuclear WBCs 15 % 01/19/19 14:00 Fluid Mononuclear WBCs 85 % 01/19/19 14:00 Virus Source See Below 01/19/19 14:00 Viral Test See Below 01/19/19 14:00 Virus Analysis Interp See Below 01/19/19 14:00 Microbiology 01/16/19 15:35 Blood Blood Culture - Preliminary No Growth after 120 hours 01/19/19 14:00 Pleural Fluid Gram Stain - Preliminary 01/19/19 14:00 Pleural Fluid Body Fluid Culture - Preliminary 01/19/19 14:00 Pleural Fluid Acid Fast Bacilli Smear - Final 01/19/19 14:00 Pleural Fluid Acid Fast Bacilli Culture - Preliminary 01/19/19 14:00 Pleural Fluid Fungal Culture - Preliminary 01/16/19 21:11 Leg - Left Gram Stain - Final 01/16/19 21:11 Leg - Left Wound Culture - Final Pseudomonas aeruginosa Providencia rettgeri 01/16/19 21:11 Leg - Right Gram Stain - Final 01/16/19 21:11 Leg - Right Wound Culture - Final Pseudomonas aeruginosa Klebsiella oxytoca Assessment and Plan (1) Left leg cellulitis Narrative/Plan: 78-year-old male presents to the hospital with increasing pain to the left leg to the point that he was having difficulty in relating to the severity of the pain. As noted he has status post recent non-ST elevated myocardial infarction with coronary artery bypass grafting procedure. The patient did finish his stay at rehab and was back to home when he had the sudden onset of the pain to the left leg after a physical therapy session. If this time is concerned with the localized tenderness to possible deep venous thrombosis in the duplexes been requested. Local wound care with therahoney products have been requested. Elevation of the limbs well he is at rest Ensuring good diabetes care with control of blood glucose and adequate protein intake For antibiotic therapy is initiated Zosyn and vancomycin. The creatinine is elevated and constantly we'll alter vancomycin to daptomycin for now. We'll de- escalate Zosyn once culture results are available. Leukocytosis likely the basis of the cellulitis to the left lower extremity p ossibly deep venous thrombosis. 01/18/2019 the patient is feeling somewhat better today. Intense pain left thigh is improved. Swelling is also slightly improved. Denies other acute difficulties at this time. Seems to responding well to current antibiotic therapy for the cellulitis to left lower extremity. Ulcerations are being treated. Evaluation by his cardiovascular surgical team is occurring. Duplexes negative for any deep venous thrombosis. 01/19/2019 patient has further improvement of the intense pain to the left leg. It's now minimal. The swelling and erythema improved. Ulcerations have less erythema. Responding well to current antibiotic therapy of Zosyn. No evidence of any deep venous thrombosis. Cellulitis is improving. Wound culture with pseudomonas, Klebsiella, and providentia species. This also remains an excellent choice. As he improves and is being ready for discharge to home there is a potential for transitioning antibiotic therapy to ciprofloxacin to complete the treatment for the polymicrobial gram-negative infection of the ulcers and skin. The care is discussed with his family members. 01/20/2019 patient is having some further improvement. He is responding well to the current antibiotic therapy for the polymicrobial gram-negative infection. Local wound care continues. Questions are answered. 01/21/2019 patient does have some further improvement. Tolerating the current antibiotic therapy well without difficulties with diarrhea. Thoracentesis has allowed a marked improvement of the shortness of breath. The fluid revealed no evidence of any pathogens.the wounds are evaluated today and are showing some improvement. Current Visit: Yes Status: Acute Code(s): L03.116 - CELLULITIS OF LEFT LOWER LIMB SNOMED Code(s): 812172994 (2) Chronic venous hypertension (idiopathic) with ulcer of bilateral lower extremity Current Visit: Yes Status: Acute Code(s): I87.313 - CHRONIC VENOUS HYPERTENSION W ULCER OF BILATERAL LOW EXTRM; L97.919 - NON-PRS CHRONIC ULC UNSP PRT OF R LOW LEG W UNSP SEVERITY; L97.929 - NON-PRS CHRONIC ULC UNSP PRT OF L LOW LEG W UNSP SEVERITY SNOMED Code(s): 082789857737026
[2019-01-22 05:51] LABS: Glucose,Whole Blood 122 mg/dL (75-99)
[2019-01-22] MEDS: INSULIN ASPART (NovoLOG) 100 UNIT/ML VIAL SQ SCH ×4 (05:55→21:03)
[2019-01-22] MEDS: ASCORBIC ACID 500 MG TAB PO SCH ×2 (06:28→16:05)
[2019-01-22 07:40] LABS: Anisocytosis Slight; Basophils # (A) 0.1 k/uL (0-0.2); Basophils % (A) 1 %; Eosinophils # (A) 0.9 k/uL (0-0.7); Eosinophils % (A) 8 %; HCT 32.7 % (39.0-53.0); HGB 9.8 gm/dL (13.0-17.5); Hypochromasia Moderate; Lymphocytes # (A) 0.6 k/uL (1.0-4.8); Lymphocytes % (A) 6 %; MCH 24.9 pg (25.0-35.0); Mean Platelet Volume 6.8; Monocytes # (A) 0.7 k/uL (0-1.0); Monocytes % (A) 7 %; Neutrophils # (A) 8.6 k/uL (1.3-7.7); Neutrophils % (A) 77 %; Platelet Count 339 k/uL (150-450); RBC 3.94 m/uL (4.30-5.90); RDW 16.9 % (11.5-15.5); WBC 11.1 k/uL (3.8-10.6)
[2019-01-22 07:49] LABS: Calcium 8.5 mg/dL (8.4-10.2); Magnesium 2.2 mg/dL (1.6-2.3); Potassium 3.9 mmol/L (3.5-5.1)
--- NOTE | 2019-01-22 09:58 | P.PN ---
Subjective Patient is seen in follow-up for acute kidney injury on chronic kidney disease. Patient has chronic kidney disease stage III with baseline creatinine in the range of 1.2-1.5. When patient left the rehab last month creatinine was stable in the range of 1.8-1.9. Creatinine today is 2.34. Lower extremity edema improving. Patient had right-sided thoracentesis done on January 19 with 850 mL drained. Urine output has been good. Torres catheter has been removed. No vomiting. Diuretics were decreased yesterday. Vital signs are stable. General: The patient appeared well nourished and normally developed. HEENT: Head exam is unremarkable. Neck is without jugular venous distension. LUNGS: Lungs are clear to auscultation and percussion. Breath sounds decreased. HEART: Rate and Rhythm are regular. First and second heart sounds normal. No murmurs, rubs or gallops. ABDOMEN: Abdominal exam reveals normal bowel sounds. Non-tender and non-disten ded. No evidence of peritonitis. EXTREMITITES: 1+ edema. Objective - Vital Signs Vital signs: Vital Signs Temp 98.5 F 01/22/19 03:34 Pulse 94 01/22/19 03:35 Resp 18 01/22/19 03:35 BP 130/65 01/22/19 03:34 Pulse Ox 94 L 01/22/19 03:34 Intake & Output 01/21/19 01/22/19 01/22/19 18:59 06:59 18:59 Intake Total 530 700 960 Output Total 239 Balance 530 461 960 Weight 83.1 kg Intake: Intake, IV Titration 100 100 Amount Piperacillin-Tazobactam 3 100 100 .375 gm In Sodium Chloride 0.9% 100 ml @ 25 mls/hr IVPB Q8HR [facility] Rx# :[id number] Oral 430 600 960 Output: Post Void Residual 239 Other: Voiding Method Toilet Toilet Urinal Urinal # Voids 1 1 # Bowel Movements 1 1 - Labs CBC & Chem 7: 01/22/19 07:01 01/22/19 07:01 Labs: Abnormal Lab Results - Last 24 Hours (Table) 01/21/19 01/21/19 01/21/19 Range/Units 11:38 17:28 20:42 WBC (3.8-10.6) k/uL RBC (4.30-5.90) m/uL Hgb (13.0-17.5) gm/dL Hct (39.0-53.0) % MCH (25.0-35.0) pg MCHC (31.0-37.0) g/dL RDW (11.5-15.5) % Neutrophils # (1.3-7.7) k/uL Lymphocytes # (1.0-4.8) k/uL Eosinophils # (0-0.7) k/uL Chloride (98-107) mmol/L Carbon Dioxide (22-30) mmol/L BUN (9-20) mg/dL Creatinine (0.66-1.25) mg/dL POC Glucose (mg/dL) 205 H 233 H 281 H (75-99) mg/dL 01/22/19 01/22/19 01/22/19 Range/Units 05:50 07:01 07:01 WBC 11.1 H (3.8-10.6) k/uL RBC 3.94 L (4.30-5.90) m/uL Hgb 9.8 L (13.0-17.5) gm/dL Hct 32.7 L (39.0-53.0) % MCH 24.9 L (25.0-35.0) pg MCHC 30.0 L (31.0-37.0) g/dL RDW 16.9 H (11.5-15.5) % Neutrophils # 8.6 H (1.3-7.7) k/uL Lymphocytes # 0.6 L (1.0-4.8) k/uL Eosinophils # 0.9 H (0-0.7) k/uL Chloride 94 L (98-107) mmol/L Carbon Dioxide 37 H (22-30) mmol/L BUN 71 H (9-20) mg/dL Creatinine 2.34 H (0.66-1.25) mg/dL POC Glucose (mg/dL) 122 H (75-99) mg/dL Microbiology - Last 24 Hours (Table) 01/16/19 15:35 Blood Culture - Preliminary Blood No Growth after 120 hours 01/19/19 14:00 Gram Stain - Preliminary Pleural Fluid Body Fluid Culture - Preliminary Assessment and Plan Plan: Assessment: 1. Acute kidney injury mostly prerenal secondary to cardiorenal syndrome Creatinine 2.34 today. 2. Chronic kidney disease stage III with baseline creatinine in the range of 1.2-1.5 but recently it's been in the range of 1.7-1.9. 3. Coronary artery disease status post CABG in December 2018. 4. Dyspnea secondary to volume overload. Better. 5. Left lower extremity wound maintained on antibiotics. 6. Systolic CHF with ejection fraction of 45-50%. 7. Urinary retention. Maintained on Flomax. Torres catheter removed on January 20. 8. Hypokalemia secondary to diuresis. Status post placement. Better. 9. Pleural effusions status post right sided thoracentesis on January 19 - 850 mL drained. Plan: Lasix dose was decreased yesterday - currently on 40 mg orally once daily. Monitor postvoid residuals. Avoid nephrotoxins. Repeat electrolytes in the morning.
[2019-01-22] MEDS: PIPERACILLIN-TAZOBACTAM 3.375 GM in SODIUM CHLORIDE 0.9% 100 ML IVPB SCH ×3 (10:10→23:07)
[2019-01-22] MEDS: hydrALAZINE HCL 25 MG TAB PO SCH ×2 (10:11→21:02)
[2019-01-22] MEDS: MULTIVITAMINS, THERA 1 EACH TAB PO SCH (10:11)
[2019-01-22] MEDS: TAMSULOSIN 0.4 MG CAP.ER.24H PO SCH ×2 (10:11→21:03)
[2019-01-22] MEDS: FUROSEMIDE 40 MG TAB PO SCH (10:11)
[2019-01-22] MEDS: METOPROLOL TARTRATE 25 MG TAB PO SCH ×2 (10:11→21:03)
[2019-01-22] MEDS: FERROUS SULFATE 325 MG TAB PO SCH (10:12)
[2019-01-22] MEDS: APIXABAN 5 MG TAB PO SCH ×2 (10:12→21:01)
[2019-01-22] MEDS: FAMOTIDINE 20 MG TAB PO SCH (10:12)
--- NOTE | 2019-01-22 11:38 | PN ---
PROGRESS NOTE Mr. Carrasco is a 78-year-old male with a history of coronary artery disease status post coronary artery bypass grafting who presented with worsening dyspnea and worsening peripheral edema. He is feeling better today. His peripheral edema has improved and his breathing is better. He is lying supine without any difficulty. He denies any chest pain. He denies any dizziness or palpitation. He denies any nausea. He continues to be on Eliquis 5 mg twice a day, aspirin 81 mg daily, Lipitor 80 mg daily, furosemide 40 mg daily, hydralazine 25 mg twice a day, metoprolol tartrate 25 mg twice a day. PHYSICAL EXAMINATION: Blood pressure 111/60 with a heart rate in 90s. LUNGS with mild decreased breath sounds at the bases. HEART: Irregularly, irregular, S1, S2. No S3. No rub. ABDOMEN: Soft, nontender. EXTREMITIES: With Gianni wrapping in place and 1+ edema noted. IMPRESSION: 1. Status post coronary artery bypass grafting. 2. Recurrent pleural effusion. 3. Atrial flutter. 4. Ulceration of lower extremities. 5. Diabetes. 6. Hypertension. 7. Hyperlipidemia. 8. Chronic kidney disease. RECOMMENDATION: We will continue present therapy. Increase his level of activity. Follow his renal function. Depending on the trend of his renal function, further recommendations will be made. MMODL / IJN: [id number] /
[2019-01-22 12:02] LABS: Glucose,Whole Blood 277 mg/dL (75-99)
--- NOTE | 2019-01-22 13:05 | P.PN ---
Subjective Progress Note Date: 01/22/19 Principal diagnosis: Bilateral pleural effusions, right greater than the left This is 78-year-old white male patient of Saida Roman PA-C, from the [facility], who recently had a non-ST elevated myocardial infarction, and underwent four-vessel coronary artery bypass grafting using the left internal mammary artery to the LAD, reverse SVG to the diagonal, reverse SVG to the OM 1, and to the distal branch of the circumflex artery, bilateral pulmonary vein isolation using radiofrequency and AtriCure clamp, and left atrial appendage exclusion, on 12/20/[address] Rivero. Patient also had a right-sided pleural effusion with thoracentesis and removal of 900 mL of transudative pleural fluid with negative cytology. Medical history includes coronary artery disease with previous stents to the LAD in 2004, and previous myocardial infarction, paroxysmal atrial flutter status post cardioversion on long-term anticoagulation with Eliquis, hypertension, hyperlipidemia, uncontrolled diabetes mellitus, peripheral artery disease, chronic venous stasis ulcers to the right lower extremity, benign prostatic hypertrophy. Following his surgery patient was discharged to inpatient rehab on postoperative day 12, where he continued to work with physical, occupational and cardiac rehab. Patient was seen in follow-up by Dr. Bull the pulmonary clinic on 01/13/2019 for hospital follow-up, and patient was mildly short of breath, but no fever or chills, requiring any oxygen, and was noted to have increasing pleural effusions, and he was ordered to have follow-up outpatient chest ultrasound and outpatient thoracentesis by interventional radiology. However patient came into the hospital instead on 01/16/2019 with complaints of left knee pain, and developing blister on the left lower extremity near medial left knee over the past 2 weeks, which started to drain. Patient states the left lower leg is very tender to palpation. Admits to occasional chills. Denied any fever or night sweats. Physical exam reveals ulceration of the lateral aspect of left lower leg and the medial proximal area just distal to the knee and a lot of tenderness to palpation, with drainage of purulent material and warmth to palpation. Left leg was the harvest site for the venous graft. She also had significant leukocytosis consistent with infection. Patient denies any shortness of breath, or chest pain. Lactic acid was within normal limits, she was started on IV antibiotics with ceftriaxone and vancomycin, infectious disease service was consulted, and we're consulted in regards to bilateral pleural effusions On 01/18/2017 patient seen in follow-up on selective care unit, he is resting in bed, in no acute distress, he is on room air, room air pulse ox is 94%, afebrile, hemodynamically stable, ID service is following. There is to lower extremity cellulitis, and patient on Zosyn, and daptomycin. She continues on diuretics, he is on Zaroxolyn, oral Lasix. He is in no acute distress, no use of respiratory muscles of breathing, he states he is slightly dyspneic with exertion, but no acute distress, lung sounds reveal diminished breath sounds at the bases, right greater than the left, he is on heparin drip, his Eliquis is on hold, for possibility of right-sided thoracentesis likely tomorrow or in the next 48 hours. Today's chest x-ray was reviewed and showed small pleural effusions, cardiomegaly and congestive heart failure On 01/19/2019 patient seen in follow-up on selective care unit, he is awake and alert, in no distress, but appears weak and fatigued, room air pulse ox is 92%, he is afebrile, hemodynamically patient is stable, patient is on IV antibiotics for bilateral lower extremity cellulitis, and we're following him in regards to bilateral pleural effusions, right greater than the left. Patient continues on oral diuretics, we stopped his Eliquis 48 hours ago, for possibility of right- sided thoracentesis today, he is on heparin drip currently, which we will stop, and we will proceed with the right-sided thoracentesis this afternoon. Patient is agreeable to proceed. Today's lab work has been reviewed. On 01/20/2019 patient seen in follow-up on selective care unit. Awake and alert, in no acute distress, patient is status post a right-sided thoracentesis yesterday on 01/20/2019 would removal of 850 mL, and the pleural fluid analysis is still pending, pleural fluid cultures are pending, preliminary Gram stain showed no organisms. Cytology is pending. She remains on IV antibiotics for lower extremity cellulitis, wound cultures were positive for pseudomonas aeruginosa, Klebsiella, Providencia rettgeri. Patient remains on oral Lasix, and Zaroxolyn. On IV Zosyn antibiotic coverage, and ID service is following. Denies any shortness of breath, denies any chest pain, room air pulse ox is 94%, he is afebrile, reports his breathing is easier, lung sounds are diminished at the bases, improved aeration at the right lower base. Follow-up chest x-ray yesterday showed no pneumothorax, post thoracentesis, and bilateral consolidation and small effusion. On 01/22/2019 patient seen in follow-up on selective care unit, he is accompanied to been, in no acute distress, lung sounds reveal some crackles at the right base, and diminished breath sounds over right lower base. He is on room air, maintaining stable oxygenation, he denies any shortness of breath, and/or any chest pain, he is on Zosyn for lower extremity cellulitis, and blood cultures positive for pseudomonas aeruginosa, Klebsiella and probably dementia. She is on oral diuretics. His labs have been reviewed, white blood cell count is 11.1, hemoglobin is 9.8, sodium is 140, potassium is 3.9, chloride is 94, CO2 is 37, BUN is 71, creatinine is 2.34. Denies any pulmonary complaints. Her pulse ox is 98%, afebrile. Objective - Vital Signs Vital signs: Vital Signs Temp 97.4 F L 01/22/19 08:15 Pulse 90 01/22/19 08:15 Resp 18 01/22/19 08:15 BP 111/67 01/22/19 08:15 Pulse Ox 98 01/22/19 08:15 Intake & Output 01/21/19 01/22/19 01/22/19 18:59 06:59 18:59 Intake Total 530 700 960 Output Total 239 Balance 530 461 960 Weight 83.1 kg Intake: Intake, IV Titration 100 100 Amount Piperacillin-Tazobactam 3 100 100 .375 gm In Sodium Chloride 0.9% 100 ml @ 25 mls/hr IVPB Q8HR [facility] Rx# :[id number] Oral 430 600 960 Output: Post Void Residual 239 Other: Voiding Method Toilet Toilet Toilet Urinal Urinal Urinal # Voids 1 1 # Bowel Movements 1 1 - Exam GENERAL EXAM: Alert, pleasant, 78-year-old white male on room air, with a pulse ox of 94%, comfortable in no apparent distress. HEAD: Normocephalic/atraumatic. EYES: Normal reaction of pupils, equal size. Conjunctiva pink, sclera white. NOSE: Clear with pink turbinates. THROAT: No erythema or exudates. NECK: No masses, no JVD, no thyroid enlargement, no adenopathy. CHEST: No chest wall deformity. Symmetrical expansion. LUNGS: Equal air entry with crackles over right posterior lower base, and diminished breath sounds on the left CVS: Regular rate and rhythm, normal S1 and S2, no gallops, no murmurs, no rubs ABDOMEN: Soft, nontender. No hepatosplenomegaly, normal bowel sounds, no guarding or rigidity. EXTREMITIES: No clubbing, no cyanosis, 2+ pulses and upper and lower extremiti es. Bilateral lower extremity edema, ulcerations on the medial part of the left leg, with significant tenderness, ecchymosis noted to bilateral lower extremities MUSCULOSKELETAL: Muscle strength and tone normal. SPINE: No scoliosis or deformity SKIN: No rashes CENTRAL NERVOUS SYSTEM: Alert and oriented -3. No focal deficits, tone is normal in all 4 extremities. PSYCHIATRIC: Alert and oriented -3. Appropriate affect. Intact judgment and insight. - Labs CBC & Chem 7: 01/22/19 07:01 01/22/19 07:01 Labs: Abnormal Lab Results - Last 24 Hours (Table) 01/21/19 01/21/19 01/22/19 Range/Units 17:28 20:42 05:50 WBC (3.8-10.6) k/uL RBC (4.30-5.90) m/uL Hgb (13.0-17.5) gm/dL Hct (39.0-53.0) % MCH (25.0-35.0) pg MCHC (31.0-37.0) g/dL RDW (11.5-15.5) % Neutrophils # (1.3-7.7) k/uL Lymphocytes # (1.0-4.8) k/uL Eosinophils # (0-0.7) k/uL Chloride (98-107) mmol/L Carbon Dioxide (22-30) mmol/L BUN (9-20) mg/dL Creatinine (0.66-1.25) mg/dL POC Glucose (mg/dL) 233 H 281 H 122 H (75-99) mg/dL 01/22/19 01/22/19 01/22/19 Range/Units 07:01 07:01 12:01 WBC 11.1 H (3.8-10.6) k/uL RBC 3.94 L (4.30-5.90) m/uL Hgb 9.8 L (13.0-17.5) gm/dL Hct 32.7 L (39.0-53.0) % MCH 24.9 L (25.0-35.0) pg MCHC 30.0 L (31.0-37.0) g/dL RDW 16.9 H (11.5-15.5) % Neutrophils # 8.6 H (1.3-7.7) k/uL Lymphocytes # 0.6 L (1.0-4.8) k/uL Eosinophils # 0.9 H (0-0.7) k/uL Chloride 94 L (98-107) mmol/L Carbon Dioxide 37 H (22-30) mmol/L BUN 71 H (9-20) mg/dL Creatinine 2.34 H (0.66-1.25) mg/dL POC Glucose (mg/dL) 277 H (75-99) mg/dL Microbiology - Last 24 Hours (Table) 01/19/19 14:00 Gram Stain - Preliminary Pleural Fluid Body Fluid Culture - Preliminary 01/16/19 15:35 Blood Culture - Preliminary Blood No Growth after 120 hours Assessment and Plan Plan: Assessment: #1. Bilateral leg cellulitis, with the wound cultures positive for pseudomonas aeruginosa, Klebsiella Oxytoca, and Providencia rettgeri #2. Bilateral pleural effusions, right greater than the left, there is post right-sided thoracentesis would removal of 850 mL of serous pleural fluid, pleural fluid analysis is pending, preliminary Gram stain is negative thus far, final cultures are pending, cytology is pending #3. Acute kidney injury likely related to ATN #4. Recent non-ST elevated myocardial infarction in December 2018 #5. Triple-vessel coronary artery disease, status post four-vessel bypass, with radiofrequency ablation of the pulmonary artery, and exclusion of the left atrial appendix #6. Paroxysmal atrial flutter status post cardioversion, on Eliquis #7. Chronic congestive heart failure with systolic dysfunction #8. Type 2 diabetes mellitus #9. Hypertension #10. Hyperlipidemia #11. History of previous coronary artery disease and previous PCI, and previous episode of myocardial infarction Plan: Continue oral diuretics, continue antibiotic coverage per ID service recommendations, oral anticoagulation, patient denies any shortness of breath, denies any chest pain, he is maintaining good oxygenation on room air. No plans for left-sided thoracentesis at this time, as it was a small effusion. No complaints at this time, we'll follow on as-needed basis. I performed a history & physical examination of the patient and discussed their management with my nurse practitioner, Demetria Ramos. I reviewed the nurse practitioner's note and agree with the documented findings and plan of care. Lung sounds are positive for diminished breath sounds at the bases. The findings and the impression was discussed with the patient. I attest to the documentation by the nurse practitioner. Time with Patient: Less than 30
--- NOTE | 2019-01-22 13:54 | P.PN ---
Subjective Progress Note Date: 01/22/19 Principal diagnosis: Bilateral lower extremity cellulitis Mr. Brice ia a 78-year-old gentleman who recently had CABG, complicated bilateral pleural effusion, coming to the hospital with a chief complaint of bilateral lower extremity infected ulcers. Patient was initially started on daptomycin and Zosyn as per infectious disease Dr. Eldridge. And as the one culture grew Klebsiella and Pseudomonas, daptomycin was discontinued yesterday. Patient is currently on Zosyn. Patient also had thoracentesis done yesterday he had 850 mL removed from the right side. On 01/22/19 - Today the patient is resting comfortably in bed appears to be no acute distress. His brother and [id number] at the bedside. Patient states that the redness in his lower extremities has improved but the pain is still the same. Patient denies having any other issues. His difficulty in breathing has improved. He states that he is less short of breath when he moves around. Active Medications Acetaminophen (Tylenol Tab) 500 mg PO Q6HR PRN PRN Reason: Fever and/ or Pain Hydrocodone Bitart/Acetaminophen ([place] 5-325) 1 each PO Q6HR PRN PRN Reason: Pain Last Admin: 01/18/19 21:15 Dose: 1 each Documented by: Apixaban (Eliquis) 5 mg PO BID [facility] Last Admin: 01/22/19 10:12 Dose: 5 mg Documented by: Ascorbic Acid (Vitamin C) 500 mg PO BID-W/MEALS [facility] Last Admin: 01/22/19 06:28 Dose: 500 mg Documented by: Aspirin (Aspirin) 81 mg PO [facility] Last Admin: 01/20/19 20:06 Dose: 81 mg Documented by: Atorvastatin Calcium (Lipitor) 80 mg PO [facility] Last Admin: 01/21/19 20:46 Dose: 80 mg Documented by: Famotidine (Pepcid) 20 mg PO DAILY [facility] Last Admin: 01/22/19 10:12 Dose: 20 mg Documented by: Ferrous Sulfate (Feosol) 325 mg PO DAILY [facility] Last Admin: 01/22/19 10:12 Dose: 325 mg Documented by: Furosemide (Lasix) 40 mg PO DAILY [facility] Last Admin: 01/22/19 10:11 Dose: 40 mg Documented by: Hydralazine HCl (Apresoline) 25 mg PO BID [facility] Last Admin: 01/22/19 10:11 Dose: 25 mg Documented by: Piperacillin Sod/Tazobactam (Sod 3.375 gm/ Sodium Chloride) 100 mls @ 25 mls/hr IVPB Q8HR [facility] Last Admin: 01/22/19 10:10 Dose: 25 mls/hr Documented by: Insulin Aspart (Novolog) 0 unit SQ [facility]; Protocol Last Admin: 01/22/19 12:22 Dose: 4 unit Documented by: Insulin Detemir (Levemir) 10 unit SQ [facility] Last Admin: 01/21/19 20:47 Dose: 10 unit Documented by: Melatonin (Melatonin) 3 mg PO HS [facility] Last Admin: 01/21/19 20:46 Dose: 3 mg Documented by: Metoprolol Tartrate (Lopressor) 25 mg PO BID [facility] Last Admin: 01/22/19 10:11 Dose: 25 mg Documented by: Multi-Ingred Cream/Lotion/Oil/Oint (Eucerin Cream) 1 applic TOPICAL BID PRN PRN Reason: Dry Skin Multivitamins (Theragran) 1 each PO DAILY@1200 [facility] Last Admin: 01/22/19 10:11 Dose: 1 each Documented by: Naloxone HCl (Narcan) 0.2 mg IV Q2M PRN PRN Reason: Opioid Reversal Tamsulosin HCl (Flomax) 0.4 mg PO BID [facility] Last Admin: 01/22/19 10:11 Dose: 0.4 mg Documented by: Temazepam (Restoril) 15 mg PO HS PRN PRN Reason: Insomnia On review of systems Constitutional-denied any fevers or chills Cardiovascular-no chest pain or palpitations Respiratory-difficulty in breathing improving Lower extremities-redness has improved, pain is still the same GI-no abdominal pain nausea vomiting or diarrhea. Objective - Vital Signs Vital signs: Vital Signs Temp 97.4 F L 01/22/19 08:15 Pulse 90 01/22/19 08:15 Resp 18 01/22/19 08:15 BP 111/67 01/22/19 08:15 Pulse Ox 98 01/22/19 08:15 Intake & Output 01/21/19 01/22/19 01/22/19 18:59 06:59 18:59 Intake Total 530 700 960 Output Total 239 Balance 530 461 960 Weight 83.1 kg Intake: Intake, IV Titration 100 100 Amount Piperacillin-Tazobactam 3 100 100 .375 gm In Sodium Chloride 0.9% 100 ml @ 25 mls/hr IVPB Q8HR [facility] Rx# :[id number] Oral 430 600 960 Output: Post Void Residual 239 Other: Voiding Method Toilet Toilet Toilet Urinal Urinal Urinal # Voids 1 1 # Bowel Movements 1 1 - Exam PHYSICAL EXAMINATION: GENERAL: The patient is alert and oriented x3, not in any acute distress. Well developed, well nourished. HEENT: Pupils are round and equally reacting to light. EOMI. No scleral icterus. No conjunctival pallor. Normocephalic, atraumatic. CARDIOVASCULAR: S1 and S2 present. No murmurs, rubs, or gallops. PULMONARY: Decreased breath sounds on the right lower lobe. Left side breath sounds normal. Mild crackles at the lower lung bases. ABDOMEN: Soft, nontender, nondistended, normoactive bowel sounds. No palpable organomegaly. MUSCULOSKELETAL: No joint swelling or deformity. EXTREMITIES: Patient has multiple ulcers on both his lower extremities. I did not open the bandages today. NEUROLOGICAL: Gross neurological examination did not reveal any focal deficits. SKIN: No rashes. - Labs CBC & Chem 7: 01/22/19 07:01 01/22/19 07:01 Labs: Abnormal Lab Results - Last 24 Hours (Table) 01/21/19 01/21/19 01/22/19 Range/Units 17:28 20:42 05:50 WBC (3.8-10.6) k/uL RBC (4.30-5.90) m/uL Hgb (13.0-17.5) gm/dL Hct (39.0-53.0) % MCH (25.0-35.0) pg MCHC (31.0-37.0) g/dL RDW (11.5-15.5) % Neutrophils # (1.3-7.7) k/uL Lymphocytes # (1.0-4.8) k/uL Eosinophils # (0-0.7) k/uL Chloride (98-107) mmol/L Carbon Dioxide (22-30) mmol/L BUN (9-20) mg/dL Creatinine (0.66-1.25) mg/dL POC Glucose (mg/dL) 233 H 281 H 122 H (75-99) mg/dL 01/22/19 01/22/19 01/22/19 Range/Units 07:01 07:01 12:01 WBC 11.1 H (3.8-10.6) k/uL RBC 3.94 L (4.30-5.90) m/uL Hgb 9.8 L (13.0-17.5) gm/dL Hct 32.7 L (39.0-53.0) % MCH 24.9 L (25.0-35.0) pg MCHC 30.0 L (31.0-37.0) g/dL RDW 16.9 H (11.5-15.5) % Neutrophils # 8.6 H (1.3-7.7) k/uL Lymphocytes # 0.6 L (1.0-4.8) k/uL Eosinophils # 0.9 H (0-0.7) k/uL Chloride 94 L (98-107) mmol/L Carbon Dioxide 37 H (22-30) mmol/L BUN 71 H (9-20) mg/dL Creatinine 2.34 H (0.66-1.25) mg/dL POC Glucose (mg/dL) 277 H (75-99) mg/dL Microbiology - Last 24 Hours (Table) 01/19/19 14:00 Gram Stain - Preliminary Pleural Fluid Body Fluid Culture - Preliminary 01/16/19 15:35 Blood Culture - Preliminary Blood No Growth after 120 hours Assessment and Plan Assessment: ASSESSMENT Bilateral lower extremity cellulitis - with multiple ulcers- wound cultures showing Pseudomonas and Klebsiella Bilateral pleural effusion right more than left - status post paracentesis with removal of 8 50 mL yesterday Chronic systolic congestive heart failure- mild exacerbation Acute kidney injury- most likely secondary to cardiorenal syndrome CK D stage III Coronary artery disease status post CABG Paroxysmal atrial flutter status post cardioversion Bilateral chronic venous stasis dermatitis Type 2 diabetes mellitus Hypertension Hyperlipidemia PLAN: Continue the patient on Zosyn. Infectious disease and following the patient. Nephrology has been consulted for his acute kidney injury- his Lasix has been decreased to 40 mg today. Metolazone has been discontinued. Patient's lower extremity ulcers have been improving with antibiotics. Overall prognosis is guarded. Discussed the treatment plan in detail with the patient, his brother and [id number] were also at the bedside. Further recommendation to follow depending on the progress of the patient.
[2019-01-22 17:10] LABS: Glucose,Whole Blood 304 mg/dL (75-99)
[2019-01-22 20:43] LABS: Glucose,Whole Blood 303 mg/dL (75-99)
[2019-01-22] MEDS: ASPIRIN 81 MG PO SCH (21:02)
[2019-01-22] MEDS: ATORVASTATIN 80 MG TAB PO SCH (21:02)
[2019-01-22] MEDS: INSULIN DETEMIR (LEVEMIR) 100 UNIT/ML SYR SQ SCH (21:03)
[2019-01-22] MEDS: MELATONIN 3 MG TABLET PO SCH (21:03)
[2019-01-23 05:33] VITALS: RESP 18
[2019-01-23] MEDS: INSULIN ASPART (NovoLOG) 100 UNIT/ML VIAL SQ SCH ×4 (06:49→21:46)
[2019-01-23 06:55] LABS: Glucose,Whole Blood 95 mg/dL (75-99)
[2019-01-23] MEDS: ASCORBIC ACID 500 MG TAB PO SCH ×2 (06:55→16:09)
[2019-01-23 07:38] LABS: Anisocytosis Slight; Basophils # (A) 0.1 k/uL (0-0.2); Basophils % (A) 1 %; Eosinophils # (A) 0.9 k/uL (0-0.7); Eosinophils % (A) 9 %; HCT 35.8 % (39.0-53.0); HGB 10.5 gm/dL (13.0-17.5); Hypochromasia Marked; Lymphocytes # (A) 0.7 k/uL (1.0-4.8); Lymphocytes % (A) 7 %; MCH 24.5 pg (25.0-35.0); MCHC 29.4 g/dL (31.0-37.0); MCV 83.5 fL (80.0-100.0); Monocytes # (A) 0.7 k/uL (0-1.0); Monocytes % (A) 7 %; Neutrophils # (A) 7.7 k/uL (1.3-7.7); Neutrophils % (A) 74 %; Platelet Count 357 k/uL (150-450); RBC 4.28 m/uL (4.30-5.90); RDW 16.9 % (11.5-15.5); WBC 10.3 k/uL (3.8-10.6)
[2019-01-23 08:06] LABS: Calcium 8.5 mg/dL (8.4-10.2); Magnesium 2.2 mg/dL (1.6-2.3); Potassium 3.8 mmol/L (3.5-5.1)
[2019-01-23] MEDS: hydrALAZINE HCL 25 MG TAB PO SCH ×2 (09:17→21:46)
[2019-01-23] MEDS: METOPROLOL TARTRATE 25 MG TAB PO SCH ×2 (09:17→21:47)
[2019-01-23] MEDS: TAMSULOSIN 0.4 MG CAP.ER.24H PO SCH ×2 (09:17→21:47)
[2019-01-23] MEDS: FERROUS SULFATE 325 MG TAB PO SCH (09:17)
[2019-01-23] MEDS: APIXABAN 5 MG TAB PO SCH ×2 (09:17→21:46)
[2019-01-23] MEDS: FUROSEMIDE 40 MG TAB PO SCH (09:17)
[2019-01-23] MEDS: FAMOTIDINE 20 MG TAB PO SCH (09:17)
[2019-01-23] MEDS: PIPERACILLIN-TAZOBACTAM 3.375 GM in SODIUM CHLORIDE 0.9% 100 ML IVPB SCH ×3 (09:17→23:07)
[2019-01-23] MEDS: MULTIVITAMINS, THERA 1 EACH TAB PO SCH (09:17)
--- NOTE | 2019-01-23 10:15 | P.PN ---
Subjective Patient is seen in follow-up for acute kidney injury on chronic kidney disease. Patient has chronic kidney disease stage III with baseline creatinine in the range of 1.2-1.5. When patient left the rehab last month creatinine was stable in the range of 1.8-1.9. Function is little better today. Creatinine 2.15 today. Lower extremity edema improving. Patient had right-sided thoracentesis done on January 19 with 850 mL drained. Urine output has been good. Torres catheter has been removed. No vomiting. Vital signs are stable. General: The patient appeared well nourished and normally developed. HEENT: Head exam is unremarkable. Neck is without jugular venous distension. LUNGS: Lungs are clear to auscultation and percussion. Breath sounds decreased. HEART: Rate and Rhythm are regular. First and second heart sounds normal. No murmurs, rubs or gallops. ABDOMEN: Abdominal exam reveals normal bowel sounds. Non-tender and non- distended. No evidence of peritonitis. EXTREMITITES: 1+ edema. Objective - Vital Signs Vital signs: Vital Signs Temp 97.6 F 01/23/19 09:20 Pulse 89 01/23/19 09:20 Resp 18 01/23/19 09:20 BP 141/69 01/23/19 09:20 Pulse Ox 93 L 01/23/19 09:20 Intake & Output 01/22/19 01/23/19 01/23/19 18:59 06:59 18:59 Intake Total 1800 350 Output Total 300 Balance 1800 -300 350 Weight 83.4 kg Intake: Oral 1800 350 Output: Urine 300 Other: Voiding Method Toilet Toilet Toilet Urinal # Voids 1 1 - Labs CBC & Chem 7: 01/23/19 07:06 01/23/19 07:06 Labs: Abnormal Lab Results - Last 24 Hours (Table) 01/22/19 01/22/19 01/22/19 Range/Units 12:01 17:01 20:41 RBC (4.30-5.90) m/uL Hgb (13.0-17.5) gm/dL Hct (39.0-53.0) % MCH (25.0-35.0) pg MCHC (31.0-37.0) g/dL RDW (11.5-15.5) % Lymphocytes # (1.0-4.8) k/uL Eosinophils # (0-0.7) k/uL Chloride (98-107) mmol/L Carbon Dioxide (22-30) mmol/L BUN (9-20) mg/dL Creatinine (0.66-1.25) mg/dL Glucose (74-99) mg/dL POC Glucose (mg/dL) 277 H 304 H 303 H (75-99) mg/dL 01/23/19 01/23/19 Range/Units 07:06 07:06 RBC 4.28 L (4.30-5.90) m/uL Hgb 10.5 L (13.0-17.5) gm/dL Hct 35.8 L (39.0-53.0) % MCH 24.5 L (25.0-35.0) pg MCHC 29.4 L (31.0-37.0) g/dL RDW 16.9 H (11.5-15.5) % Lymphocytes # 0.7 L (1.0-4.8) k/uL Eosinophils # 0.9 H (0-0.7) k/uL Chloride 96 L (98-107) mmol/L Carbon Dioxide 34 H (22-30) mmol/L BUN 70 H (9-20) mg/dL Creatinine 2.15 H (0.66-1.25) mg/dL Glucose 67 L (74-99) mg/dL POC Glucose (mg/dL) (75-99) mg/dL Microbiology - Last 24 Hours (Table) 01/16/19 15:35 Blood Culture - Final Blood No Growth after 144 hours 01/19/19 14:00 Gram Stain - Preliminary Pleural Fluid Body Fluid Culture - Preliminary Assessment and Plan Plan: Assessment: 1. Acute kidney injury mostly prerenal secondary to cardiorenal syndrome Creatinine 2. 15 today. 2. Chronic kidney disease stage III with baseline creatinine in the range of 1.2-1.5 but recently it's been in the range of 1.7-1.9. 3. Coronary artery disease status post CABG in December 2018. 4. Dyspnea secondary to volume overload. Better. 5. Left lower extremity wound maintained on antibiotics. 6. Systolic CHF with ejection fraction of 45-50%. 7. Urinary retention. Maintained on Flomax. Torres catheter removed on January 20. 8. Hypokalemia secondary to diuresis. Status post placement. Better. 9. Pleural effusions status post right sided thoracentesis on January 19 - 850 mL drained. Plan: Maintain lasix 40 mg orally once daily. Monitor postvoid residuals. Avoid nephrotoxins.
[2019-01-23 11:52] LABS: Glucose,Whole Blood 251 mg/dL (75-99)
--- NOTE | 2019-01-23 13:40 | P.PN ---
Subjective Progress Note Date: 01/23/19 This is a pleasant 78-year-old gentleman who has a known history of coronary artery disease, most recently presented to the hospital with non-ST elevation NE in November of this year, at which time he underwent coronary artery bypass grafting surgery with a GONZALEZ to the LAD, reverse saphenous vein graft from the aorta to the first diagonal, first saphenous vein graft from the aorta to the first obtuse marginal, reverse saphenous vein graft from the aorta to the distal PDA, prior to that patient did have LAD stenting in 2004, history of hypertension, diabetes, hyperlipidemia, paroxysmal atrial fibrillation, and known bilateral ulcerations of his legs. He presents to the hospital on this occasion with symptoms of significant bilateral knee pain, left knee greater than the right. Patient also has been quite short of breath at home, he states that he went to the pulmonary office recently and was found to have fluid in his lungs, he was scheduled as an outpatient to undergo thoracentesis. During his hospitalization for his surgery he did have a thoracentesis performed on 2 separate occasions. Chest x-ray performed this admission revealed continued small bilateral pleural effusions with adjacent atelectasis and/or consolidation. X-ray of the knee on the left side showed soft tissue swelling with peripheral vascular occlusive disease. Blood pressure 104/56, low-grade temperature of 99.6, heart rate in the 90s. 97% oxygenation on room air. White blood cell count 15.6, hemoglobin 9.5, platelet count 210. Sodium 137, potassium 3.1, BUN 53 and creatinine 1.5. At the time of my examination this morning, patient is resting comfortably in bed, he does feel somewhat short of breath, and is having significant discomfort below the left knee. 01/18/2019 Patient was seen and examined this morning, does state that he feels his breathing is a little bit better today, he continues to have significant pain in his left knee. Patient was seen in consultation by pulmonary service yesterday, his anticoagulation is on hold and the plan is to proceed with a right-sided thoracentesis tomorrow. Blood pressure 94/50 with a heart rate in the 90s, 94% on room air. White blood cell count 14, hemoglobin 9.5, platelet count 236. Sodium 136, potassium 3.4, BUN 57 and creatinine 1.7. 01/19/2019 Patient was seen and examined this morning, states that his breathing is about the same, scheduled for thoracentesis today. Blood pressure 112/70 with a heart rate in the 90s, 92% on room air. White blood cell count 10.9, hemoglobin 9.8, platelet count 246. Sodium 135, potassium 3.6, BUN 64 and creatinine 1.9. 01/23/2019 Patient was seen and examined this morning, alert and oriented, in no acute distress. Resting comfortably in bed. Blood pressure 128/60 with a heart rate in the 70s, 98% on room air. White blood cell count 10.3, hemoglobin 10.5, platelet count 357. Sodium 138, potassium 3.8, BUN 70 and creatinine 2.1. Objective - Vital Signs Vital signs: Vital Signs Temp 97.5 F L 01/23/19 12:20 Pulse 70 01/23/19 12:20 Resp 18 01/23/19 12:20 BP 129/58 01/23/19 12:20 Pulse Ox 98 01/23/19 12:20 Intake & Output 01/22/19 01/23/19 01/23/19 18:59 06:59 18:59 Intake Total 1800 700 Output Total 300 400 Balance 1800 -300 300 Weight 83.4 kg Intake: Oral 1800 700 Output: Urine 300 400 Other: Voiding Method Toilet Toilet Toilet Urinal # Voids 1 1 - Exam PHYSICAL EXAMINATION: GENERAL: 78-year-old gentleman in no acute distress at the time of my examination HEENT: Head is atraumatic, normocephalic. Pupils equal, round. Sclera anicteric. Conjunctiva are clear. Mucous membranes of the mouth are moist. Neck is supple. There is no elevated jugular venous pressure. No carotid bruit is heard. HEART EXAMINATION: Heart S1-S2 irregularly irregular systolic murmur is heard CHEST EXAMINATION: Lungs reveal scattered coarse rhonchi throughout with diminished air entry to the bases bilaterally, midline chest incision clean and dry with mild redness noted ABDOMEN: Soft, nontender. Bowel sounds are heard. No organomegaly noted. EXTREMITIES: 1+ peripheral pulses to the lower extremities with bilateral edema, significant ulceration noted on the inner right leg just below the knee, on the left leg patient also has a significant ulceration noted on the medial part of the left leg below the knee, significant erythema present as well as significant tenderness. Ecchymosis noted to the bilateral lower extremities. NEUROLOGIC patient is awake, alert and oriented 3 . - Labs CBC & Chem 7: 01/23/19 07:06 01/23/19 07:06 Labs: Abnormal Lab Results - Last 24 Hours (Table) 01/22/19 01/22/19 01/23/19 Range/Units 17:01 20:41 07:06 RBC 4.28 L (4.30-5.90) m/uL Hgb 10.5 L (13.0-17.5) gm/dL Hct 35.8 L (39.0-53.0) % MCH 24.5 L (25.0-35.0) pg MCHC 29.4 L (31.0-37.0) g/dL RDW 16.9 H (11.5-15.5) % Lymphocytes # 0.7 L (1.0-4.8) k/uL Eosinophils # 0.9 H (0-0.7) k/uL Chloride (98-107) mmol/L Carbon Dioxide (22-30) mmol/L BUN (9-20) mg/dL Creatinine (0.66-1.25) mg/dL Glucose (74-99) mg/dL POC Glucose (mg/dL) 304 H 303 H (75-99) mg/dL 01/23/19 01/23/19 Range/Units 07:06 11:43 RBC (4.30-5.90) m/uL Hgb (13.0-17.5) gm/dL Hct (39.0-53.0) % MCH (25.0-35.0) pg MCHC (31.0-37.0) g/dL RDW (11.5-15.5) % Lymphocytes # (1.0-4.8) k/uL Eosinophils # (0-0.7) k/uL Chloride 96 L (98-107) mmol/L Carbon Dioxide 34 H (22-30) mmol/L BUN 70 H (9-20) mg/dL Creatinine 2.15 H (0.66-1.25) mg/dL Glucose 67 L (74-99) mg/dL POC Glucose (mg/dL) 251 H (75-99) mg/dL Microbiology - Last 24 Hours (Table) 01/19/19 14:00 Gram Stain - Final Pleural Fluid Body Fluid Culture - Final 01/16/19 15:35 Blood Culture - Final Blood No Growth after 144 hours Assessment and Plan Plan: Assessment and plan #1 bilateral knee discomfort with possible cellulitis and evidence of significant ulcerations bilaterally, elevated white blood cell count #2 bilateral pleural effusion #3 recent coronary artery bypass grafting surgery in November #4 atrial flutter with controlled ventricular response, typical #5 diabetes #6 hypertension #7 hyperlipidemia #8 remote history of nicotine dependence #9 mild renal insufficiency #10 hypokalemia Plan From cardiology's perspective, we will recommend to continue the patient on his current medications. We will continue to follow along with you. DNP note has been reviewed, I agree with a documented findings and plan of care. Patient was seen and examined.
[2019-01-23 16:46] LABS: Glucose,Whole Blood 265 mg/dL (75-99)
--- NOTE | 2019-01-23 18:23 | P.PN ---
Subjective Progress Note Date: 01/23/19 Principal diagnosis: Bilateral lower extremity cellulitis Mr. Brice ia a 78-year-old gentleman who recently had CABG, complicated bilateral pleural effusion, coming to the hospital with a chief complaint of bilateral lower extremity infected ulcers. Patient was initially started on daptomycin and Zosyn as per infectious disease Dr. Eldridge. And as the one culture grew Klebsiella and Pseudomonas, daptomycin was discontinued yesterday. Patient is currently on Zosyn. Patient also had thoracentesis done yesterday he had 850 mL removed from the right side. On 01/22/19 - Today the patient is resting comfortably in bed appears to be no acute distress. His brother and [id number] at the bedside. Patient states that the redness in his lower extremities has improved but the pain is still the same. Patient denies having any other issues. His difficulty in breathing has improved. He states that he is less short of breath when he moves around. On 01/23/2019 - patient is lying in his bed comfortably. He states he just had his dinner. He mentions that he is less short of breath. He also reports of decreased swelling in his lower extremities and anus tolerable now. Patient still continues to be on Zosyn. Patient denies having any chest pain or palpitations. No abdominal pain nausea vomiting or diarrhea. No hematuria or dysuria. He continues to be on by mouth Lasix, creatinine seems to be improving. Active Medications Acetaminophen (Tylenol Tab) 500 mg PO Q6HR PRN PRN Reason: Fever and/ or Pain Hydrocodone Bitart/Acetaminophen (Sigourney 5-325) 1 each PO Q6HR PRN PRN Reason: Pain Last Admin: 01/18/19 21:15 Dose: 1 each Documented by: Apixaban (Eliquis) 5 mg PO BID [facility] Last Admin: 01/23/19 09:17 Dose: 5 mg Documented by: Ascorbic Acid (Vitamin C) 500 mg PO BID-W/MEALS [facility] Last Admin: 01/23/19 16:09 Dose: 500 mg Documented by: Aspirin (Aspirin) 81 mg PO [facility] Last Admin: 01/22/19 21:02 Dose: 81 mg Documented by: Atorvastatin Calcium (Lipitor) 80 mg PO [facility] Last Admin: 01/22/19 21:02 Dose: 80 mg Documented by: Famotidine (Pepcid) 20 mg PO DAILY [facility] Last Admin: 01/23/19 09:17 Dose: 20 mg Documented by: Ferrous Sulfate (Feosol) 325 mg PO DAILY [facility] Last Admin: 01/23/19 09:17 Dose: 325 mg Documented by: Furosemide (Lasix) 40 mg PO DAILY [facility] Last Admin: 01/23/19 09:17 Dose: 40 mg Documented by: Hydralazine HCl (Apresoline) 25 mg PO BID [facility] Last Admin: 01/23/19 09:17 Dose: 25 mg Documented by: Piperacillin Sod/Tazobactam (Sod 3.375 gm/ Sodium Chloride) 100 mls @ 25 mls/hr IVPB Q8HR [facility] Last Admin: 01/23/19 16:09 Dose: 25 mls/hr Documented by: Insulin Aspart (Novolog) 0 unit SQ [facility]; Protocol Last Admin: 01/23/19 17:33 Dose: 4 unit Documented by: Insulin Detemir (Levemir) 10 unit SQ [facility] Last Admin: 01/22/19 21:03 Dose: 10 unit Documented by: Melatonin (Melatonin) 3 mg PO HS [facility] Last Admin: 01/22/19 21:03 Dose: 3 mg Documented by: Metoprolol Tartrate (Lopressor) 25 mg PO BID [facility] Last Admin: 01/23/19 09:17 Dose: 25 mg Documented by: Multi-Ingred Cream/Lotion/Oil/Oint (Eucerin Cream) 1 applic TOPICAL BID PRN PRN Reason: Dry Skin Multivitamins (Theragran) 1 each PO DAILY@1200 [facility] Last Admin: 01/23/19 09:17 Dose: 1 each Documented by: Naloxone HCl (Narcan) 0.2 mg IV Q2M PRN PRN Reason: Opioid Reversal Tamsulosin HCl (Flomax) 0.4 mg PO BID [facility] Last Admin: 01/23/19 09:17 Dose: 0.4 mg Documented by: Temazepam (Restoril) 15 mg PO HS PRN PRN Reason: Insomnia Objective - Vital Signs Vital signs: Vital Signs Temp 97.7 F 01/23/19 16:00 Pulse 79 01/23/19 16:00 Resp 18 01/23/19 16:00 BP 139/68 01/23/19 16:00 Pulse Ox 96 01/23/19 16:00 Intake & Output 01/22/19 01/23/19 01/23/19 18:59 06:59 18:59 Intake Total 1800 900 Output Total 300 400 Balance 1800 -300 500 Weight 83.4 kg Intake: Oral 1800 900 Output: Urine 300 400 Other: Voiding Method Toilet Toilet Toilet Urinal # Voids 1 1 - Exam GENERAL: The patient is alert and oriented x3, not in any acute distress. Well developed, well nourished. HEENT: Pupils are round and equally reacting to light. EOMI. No scleral icterus. No conjunctival pallor. Normocephalic, atraumatic. CARDIOVASCULAR: S1 and S2 present. No murmurs, rubs, or gallops. PULMONARY: Decreased breath sounds on the right lower lobe. Left side breath sounds normal. Mild crackles at the lower lung bases. ABDOMEN: Soft, nontender, nondistended, normoactive bowel sounds. No palpable organomegaly. MUSCULOSKELETAL: No joint swelling or deformity. EXTREMITIES: Patient has multiple ulcers on both his lower extremities. I did not open the bandages today. NEUROLOGICAL: Gross neurological examination did not reveal any focal deficits. SKIN: No rashes. - Labs CBC & Chem 7: 01/23/19 07:06 01/23/19 07:06 Labs: Abnormal Lab Results - Last 24 Hours (Table) 01/22/19 01/23/19 01/23/19 Range/Units 20:41 07:06 07:06 RBC 4.28 L (4.30-5.90) m/uL Hgb 10.5 L (13.0-17.5) gm/dL Hct 35.8 L (39.0-53.0) % MCH 24.5 L (25.0-35.0) pg MCHC 29.4 L (31.0-37.0) g/dL RDW 16.9 H (11.5-15.5) % Lymphocytes # 0.7 L (1.0-4.8) k/uL Eosinophils # 0.9 H (0-0.7) k/uL Chloride 96 L (98-107) mmol/L Carbon Dioxide 34 H (22-30) mmol/L BUN 70 H (9-20) mg/dL Creatinine 2.15 H (0.66-1.25) mg/dL Glucose 67 L (74-99) mg/dL POC Glucose (mg/dL) 303 H (75-99) mg/dL 01/23/19 01/23/19 Range/Units 11:43 16:30 RBC (4.30-5.90) m/uL Hgb (13.0-17.5) gm/dL Hct (39.0-53.0) % MCH (25.0-35.0) pg MCHC (31.0-37.0) g/dL RDW (11.5-15.5) % Lymphocytes # (1.0-4.8) k/uL Eosinophils # (0-0.7) k/uL Chloride (98-107) mmol/L Carbon Dioxide (22-30) mmol/L BUN (9-20) mg/dL Creatinine (0.66-1.25) mg/dL Glucose (74-99) mg/dL POC Glucose (mg/dL) 251 H 265 H (75-99) mg/dL Microbiology - Last 24 Hours (Table) 01/19/19 14:00 Gram Stain - Final Pleural Fluid Body Fluid Culture - Final 01/16/19 15:35 Blood Culture - Final Blood No Growth after 144 hours Assessment and Plan Assessment: ASSESSMENT Bilateral lower extremity cellulitis - with multiple ulcers- wound cultures showing Pseudomonas and Klebsiella Bilateral pleural effusion right more than left - status post paracentesis with removal of 8 50 mL Chronic systolic congestive heart failure- mild exacerbation Acute kidney injury- most likely secondary to cardiorenal syndrome - improving CK D stage III Coronary artery disease status post CABG Paroxysmal atrial flutter status post cardioversion Bilateral chronic venous stasis dermatitis Type 2 diabetes mellitus Hypertension Hyperlipidemia PLAN: Continue the patient on Zosyn. Infectious disease, Dr. Eldridge ,regarding the antibiotic of choice at the time of discharge. Patient's creatinine seemed to be improving. He is currently on Lasix 40 by mouth daily. Patient's lower extremity ulcers have been improving. Overall prognosis is guarded. Patient prefers to go to subacute rehab, clinical social work therapist consult will be placed. Further recommendation to follow depending on the progress of the patient.
[2019-01-23 20:40] LABS: Glucose,Whole Blood 391 mg/dL (75-99)
[2019-01-23] MEDS ORDERED: INSULIN DETEMIR (LEVEMIR) 100 UNIT/ML SYR SQ SCH (21:00)
[2019-01-23] MEDS: ATORVASTATIN 80 MG TAB PO SCH (21:46)
[2019-01-23] MEDS: ASPIRIN 81 MG PO SCH (21:46)
[2019-01-23] MEDS: MELATONIN 3 MG TABLET PO SCH (21:47)
--- NOTE | 2019-01-23 23:12 | P.PN ---
Subjective Progress Note Date: 01/23/19 78-year-old gentleman with a known history of coronary disease who in November 2018 suffered a non-ST elevated myocardial infarction. Eversion at the present time reveal evidence of severe coronary disease and constantly was taken to the operating room and a her artery bypass graft procedure was performed including GONZALEZ to LAD as well as saphenous grafts from aorta to the first obtuse marginal as well as the distal PDA. The patient postoperatively had significant difficulties with effusion and underwent thoracentesis on 2 events. Eventually improved and was sent to rehabilitation. As related after his discharge from rehab went to the home setting but there was difficulties with the transition. The family relates that the patient is a and receives his medications from that source. Apparently time of his discharge he was at least 4 days before they're able to get most of his medications according his insulin for use at home. The patient then started to show some improvement. He had physical therapy session. The following day he became miserable with severe pain especi ally into his left leg. It escalated the point that he could not walk and constantly his family brought him to the emergency center and he has been admitted. He has a known history of significant lower extremity ulcerations, with these as well as a new onset pain in the left leg the consult was re quested. The patient is denying fevers or chills. Continues to have significant pain to the left leg and has difficulty trying to bear weight because it is so painful. 01/18/2019 reveals patient to be feeling slightly better. Patient is comfortable improved. The left leg is definitely with less discomfort. 01/19/2019 patient continues to have improvement. There is less erythema. Ulcerations are improving. 01/20/2019 reveals the patient had further improvement. Pain to the leg is improved edema is improved-assisted ambulation has improved. 01/21/2019 patient is feeling somewhat better today. Ulcerations remained somewhat tender but have only scant drainage. Severe pain to the left leg has resolved. 01/23/2019 continues to have improvement of his status. No new acute difficulties are related Objective - Vital Signs Vital signs: Vital Signs Temp 97.7 F 01/23/19 16:00 Pulse 79 01/23/19 16:00 Resp 18 01/23/19 16:00 BP 139/68 01/23/19 16:00 Pulse Ox 96 01/23/19 16:00 Intake & Output 01/23/19 01/23/19 01/24/19 06:59 18:59 06:59 Intake Total 1018 Output Total 300 400 250 Balance -300 618 -250 Weight 83.4 kg Intake: Oral 1018 Output: Urine 300 400 250 Other: Voiding Method Toilet Toilet # Voids 1 - Exam HEENT: Anicteric conjunctiva are pink and moist nasal mucosa grossly intact without significant lesions, there is no thrush. Neck: The neck is supple without significant lymphadenopathy or thyromegaly. Lungs: Good bilateral air entry without significant crackles or wheezing. There is no significant bronchial sounds. There is no egophony or dullness. Heart: Regular rate and rhythm with an audible S1-S2, no S3 no S4. There is no significant murmur click or rub, PMI was nondisplaced. Abdomen: Positive bowel sounds soft and nontender without palpable masses or organomegaly. There was no guarding or rebound. Extremities: Upper extremities with diffuse small healing ecchymosis. Lower ex tremities no evidence of the multiple ulcerations. Please see nursing photography. Right lower extremity shows evidence of the 3 ulcerations with the most proximal medial having some slough. The left lateral ulceration is a bit more acute and apparently was a blister that recently open. There is some surrounding erythema at that site.The severe tenderness of the left medial thigh has markedly improved today. The left thigh medial aspect is extremely tender to touch and had evidence of the healing ecchymosis. Right thigh also has healing ecchymosis from the vein harvest. Neuro: Awake alert oriented to person place and time. There are no acute new gross focal sensory motor deficits. - Labs CBC & Chem 7: 01/23/19 07:06 01/23/19 07:06 Labs: Abnormal Lab Results - Last 24 Hours (Table) 01/23/19 01/23/19 01/23/19 Range/Units 07:06 07:06 11:43 RBC 4.28 L (4.30-5.90) m/uL Hgb 10.5 L (13.0-17.5) gm/dL Hct 35.8 L (39.0-53.0) % MCH 24.5 L (25.0-35.0) pg MCHC 29.4 L (31.0-37.0) g/dL RDW 16.9 H (11.5-15.5) % Lymphocytes # 0.7 L (1.0-4.8) k/uL Eosinophils # 0.9 H (0-0.7) k/uL Chloride 96 L (98-107) mmol/L Carbon Dioxide 34 H (22-30) mmol/L BUN 70 H (9-20) mg/dL Creatinine 2.15 H (0.66-1.25) mg/dL Glucose 67 L (74-99) mg/dL POC Glucose (mg/dL) 251 H (75-99) mg/dL 01/23/19 01/23/19 Range/Units 16:30 20:39 RBC (4.30-5.90) m/uL Hgb (13.0-17.5) gm/dL Hct (39.0-53.0) % MCH (25.0-35.0) pg MCHC (31.0-37.0) g/dL RDW (11.5-15.5) % Lymphocytes # (1.0-4.8) k/uL Eosinophils # (0-0.7) k/uL Chloride (98-107) mmol/L Carbon Dioxide (22-30) mmol/L BUN (9-20) mg/dL Creatinine (0.66-1.25) mg/dL Glucose (74-99) mg/dL POC Glucose (mg/dL) 265 H 391 H (75-99) mg/dL Microbiology - Last 24 Hours (Table) 01/19/19 14:00 Gram Stain - Final Pleural Fluid Body Fluid Culture - Final Laboratory Results WBC 10.3 k/uL (3.8-10.6) 01/23/19 07:06 RBC 4.28 m/uL (4.30-5.90) L 01/23/19 07:06 Hgb 10.5 gm/dL (13.0-17.5) L 01/23/19 07:06 Hct 35.8 % (39.0-53.0) L 01/23/19 07:06 MCV 83.5 fL (80.0-100.0) 01/23/19 07:06 MCH 24.5 pg (25.0-35.0) L 01/23/19 07:06 MCHC 29.4 g/dL (31.0-37.0) L 01/23/19 07:06 RDW 16.9 % (11.5-15.5) H 01/23/19 07:06 Plt Count 357 k/uL (150-450) 01/23/19 07:06 Neutrophils % 74 % 01/23/19 07:06 Lymphocytes % 7 % 01/23/19 07:06 Monocytes % 7 % 01/23/19 07:06 Eosinophils % 9 % 01/23/19 07:06 Basophils % 1 % 01/23/19 07:06 Neutrophils # 7.7 k/uL (1.3-7.7) 01/23/19 07:06 Lymphocytes # 0.7 k/uL (1.0-4.8) L 01/23/19 07:06 Monocytes # 0.7 k/uL (0-1.0) 01/23/19 07:06 Eosinophils # 0.9 k/uL (0-0.7) H 01/23/19 07:06 Basophils # 0.1 k/uL (0-0.2) 01/23/19 07:06 Hypochromasia Marked 01/23/19 07:06 Poikilocytosis Slight 01/21/19 07:31 Anisocytosis Slight 01/23/19 07:06 ESR mm/hr (0-15) 01/16/19 15:35 PT 11.6 sec (9.0-12.0) 01/17/19 15:30 INR 1.1 (<1.2) 01/17/19 15:30 APTT 46.4 sec (22.0-30.0) H 01/18/19 02:05 Sodium 138 mmol/L (137-145) 01/23/19 07:06 Potassium 3.8 mmol/L (3.5-5.1) 01/23/19 07:06 Chloride 96 mmol/L (98-107) L 01/23/19 07:06 Carbon Dioxide 34 mmol/L (22-30) H 01/23/19 07:06 Anion Gap 8 mmol/L 01/23/19 07:06 BUN 70 mg/dL (9-20) H 01/23/19 07:06 Creatinine 2.15 mg/dL (0.66-1.25) H 01/23/19 07:06 Est GFR (CKD-EPI)AfAm 33 (>60 ml/min/1.73 sqM) 01/23/19 07:06 Est GFR (CKD-EPI)NonAf 29 (>60 ml/min/1.73 sqM) 01/23/19 07:06 Glucose 67 mg/dL (74-99) L 01/23/19 07:06 POC Glucose (mg/dL) 391 mg/dL (75-99) H 01/23/19 20:39 POC Glu Lab Manager ID Laura Borja 01/23/19 20:39 Plasma Lactic Acid Gutierrez 1.3 mmol/L (0.7-2.0) 01/16/19 15:35 Calcium 8.5 mg/dL (8.4-10.2) 01/23/19 07:06 Magnesium 2.2 mg/dL (1.6-2.3) 01/23/19 07:06 Total Bilirubin 0.7 mg/dL (0.2-1.3) 01/16/19 15:35 AST 27 U/L (17-59) 01/16/19 15:35 ALT 26 U/L (21-72) 01/16/19 15:35 Alkaline Phosphatase 229 U/L (38-126) H 01/16/19 15:35 C-Reactive Protein 86.0 mg/L (<10.0) H 01/16/19 15:35 NT-Pro-B Natriuret Pep 9530 pg/mL 01/16/19 15:35 Total Protein 6.0 g/dL (6.3-8.2) L 01/16/19 15:35 Albumin 3.2 g/dL (3.5-5.0) L 01/16/19 15:35 Urine Color Yellow 01/16/19 20:30 Urine Appearance Cloudy (Clear) 01/16/19 20:30 Urine pH 6.5 (5.0-8.0) 01/16/19 20:30 Ur Specific [place] 1.017 (1.001-1.035) 01/16/19 20:30 Urine Protein 2+ (Negative) H 01/16/19 20:30 Urine Glucose (UA) Negative (Negative) 01/16/19 20:30 Urine Ketones Negative (Negative) 01/16/19 20:30 Urine Blood Moderate (Negative) H 01/16/19 20:30 Urine Nitrite Negative (Negative) 01/16/19 20:30 Urine Bilirubin Negative (Negative) 01/16/19 20:30 Urine Urobilinogen 2.0 mg/dL (<2.0) 01/16/19 20:30 Ur Leukocyte Esterase Large (Negative) H 01/16/19 20:30 Urine RBC 1 /hpf (0-5) 01/16/19 20:30 Urine WBC 3 /hpf (0-5) 01/16/19 20:30 Ur Squamous Epith Cells 1 /hpf (0-4) 01/16/19 20:30 Urine Mucus Rare /hpf (None) H 01/16/19 20:30 Fluid Source Pleural 01/19/19 14:00 Fluid Color Yellow 01/19/19 14:00 Fluid Appearance Cloudy 01/19/19 14:00 Fluid RBC 1320 /uL 01/19/19 14:00 Fluid Nucleated Cells 80 /uL 01/19/19 14:00 Fluid Polynuclear WBCs 15 % 01/19/19 14:00 Fluid Mononuclear WBCs 85 % 01/19/19 14:00 Virus Source See Below 01/19/19 14:00 Viral Test See Below 01/19/19 14:00 Virus Analysis Interp See Below 01/19/19 14:00 Microbiology 01/19/19 14:00 Pleural Fluid Gram Stain - Final 01/19/19 14:00 Pleural Fluid Body Fluid Culture - Final 01/16/19 15:35 Blood Blood Culture - Final No Growth after 144 hours 01/19/19 14:00 Pleural Fluid Acid Fast Bacilli Smear - Final 01/19/19 14:00 Pleural Fluid Acid Fast Bacilli Culture - Preliminary 01/19/19 14:00 Pleural Fluid Fungal Culture - Preliminary 01/16/19 21:11 Leg - Left Gram Stain - Final 01/16/19 21:11 Leg - Left Wound Culture - Final Pseudomonas aeruginosa Providencia rettgeri 01/16/19 21:11 Leg - Right Gram Stain - Final 01/16/19 21:11 Leg - Right Wound Culture - Final Pseudomonas aeruginosa Klebsiella oxytoca Assessment and Plan (1) Left leg cellulitis Narrative/Plan: 78-year-old male presents to the hospital with increasing pain to the left leg to the point that he was having difficulty in relating to the severity of the pain. As noted he has status post recent non-ST elevated myocardial infarction with coronary artery bypass grafting procedure. The patient did finish his stay at rehab and was back to home when he had the sudden onset of the pain to the left leg after a physical therapy session. If this time is concerned with the localized tenderness to possible deep venous thrombosis in the duplexes been requested. Local wound care with therahoney products have been requested. Elevation of the limbs well he is at rest Ensuring good diabetes care with control of blood glucose and adequate protein intake For antibiotic therapy is initiated Zosyn and vancomycin. The creatinine is elevated and constantly we'll alter vancomycin to daptomycin for now. We'll de- escalate Zosyn once culture results are available. Leukocytosis likely the basis of the cellulitis to the left lower extremity possibly deep venous thrombosis. 01/18/2019 the patient is feeling somewhat better today. Intense pain left thigh is improved. Swelling is also slightly improved. Denies other acute difficulties at this time. Seems to responding well to current antibiotic therapy for the cellulitis to left lower extremity. Ulcerations are being treated. Evaluation by his cardiovascular surgical team is occurring. Duplexes negative for any deep venous thrombosis. 01/19/2019 patient has further improvement of the intense pain to the left leg. It's now minimal. The swelling and erythema improved. Ulcerations have less erythema. Responding well to current antibiotic therapy of Zosyn. No evidence of any deep venous thrombosis. Cellulitis is improving. Wound culture with pseudomonas, Klebsiella, and providentia species. This also remains an excellent choice. As he improves and is being ready for discharge to home there is a potential for transitioning antibiotic therapy to ciprofloxacin to complete the treatment for the polymicrobial gram-negative infection of the ulcers and skin. The care is discussed with his family members. 01/20/2019 patient is having some further improvement. He is responding well to the current antibiotic therapy for the polymicrobial gram-negative infection. Local wound care continues. Questions are answered. 01/21/2019 patient does have some further improvement. Tolerating the current antibiotic therapy well without difficulties with diarrhea. Thoracentesis has allowed a marked improvement of the shortness of breath. The fluid revealed no evidence of any pathogens.the wounds are evaluated today and are showing some improvement. 01/23/2019 patient has further improvement. Much less short of breath. Not having difficulties with abdominal pain nausea or emesis. Thoracentesis is allowed the marked improvement of his shortness of breath. As he is ready for discharge to home antibiotic therapy will transition to ciprofloxacin 500 mg twice per day for 7 days at discharge. Current Visit: Yes Status: Acute Code(s): L03.116 - CELLULITIS OF LEFT LOWER LIMB SNOMED Code(s): 836783385 (2) Chronic venous hypertension (idiopathic) with ulcer of bilateral lower extremity Current Visit: Yes Status: Acute Code(s): I87.313 - CHRONIC VENOUS HYPERTENSION W ULCER OF BILATERAL LOW EXTRM; L97.919 - NON-PRS CHRONIC ULC UNSP PRT OF R LOW LEG W UNSP SEVERITY; L97.929 - NON-PRS CHRONIC ULC UNSP PRT OF L LOW LEG W UNSP SEVERITY SNOMED Code(s): 594917605177808
[2019-01-24] MEDS: HYDROcodone/APAP 5-325MG 1 EACH TAB PO PRN (01:15)
[2019-01-24 06:12] LABS: Glucose,Whole Blood 63 mg/dL (75-99)
[2019-01-24] MEDS: INSULIN ASPART (NovoLOG) 100 UNIT/ML VIAL SQ SCH ×4 (06:14→21:35)
[2019-01-24] MEDS: ASCORBIC ACID 500 MG TAB PO SCH ×2 (06:27→08:38)
[2019-01-24 06:31] LABS: Glucose,Whole Blood 69 mg/dL (75-99)
[2019-01-24 06:40] LABS: Anisocytosis Slight; HCT 29.8 % (39.0-53.0); HGB 9.2 gm/dL (13.0-17.5); Hypochromasia Marked; MCH 25.5 pg (25.0-35.0); MCHC 30.9 g/dL (31.0-37.0); MCV 82.6 fL (80.0-100.0); Mean Platelet Volume 7.6; Platelet Count 301 k/uL (150-450); Poikilocytosis Slight; RBC 3.61 m/uL (4.30-5.90); RDW 16.5 % (11.5-15.5); WBC 8.3 k/uL (3.8-10.6)
[2019-01-24 06:41] LABS: Calcium 8.3 mg/dL (8.4-10.2); Potassium 3.9 mmol/L (3.5-5.1)
[2019-01-24 07:05] LABS: Glucose,Whole Blood 145 mg/dL (75-99)
[2019-01-24] MEDS: FAMOTIDINE 20 MG TAB PO SCH (08:38)
[2019-01-24] MEDS: MULTIVITAMINS, THERA 1 EACH TAB PO SCH (08:38)
[2019-01-24] MEDS: METOPROLOL TARTRATE 25 MG TAB PO SCH ×2 (08:38→20:16)
[2019-01-24] MEDS: FUROSEMIDE 40 MG TAB PO SCH (08:38)
[2019-01-24] MEDS: FERROUS SULFATE 325 MG TAB PO SCH (08:38)
[2019-01-24] MEDS: TAMSULOSIN 0.4 MG CAP.ER.24H PO SCH ×2 (08:39→20:16)
[2019-01-24] MEDS: hydrALAZINE HCL 25 MG TAB PO SCH ×2 (08:39→20:16)
[2019-01-24] MEDS: APIXABAN 5 MG TAB PO SCH ×2 (08:39→20:16)
[2019-01-24 11:41] LABS: Glucose,Whole Blood 170 mg/dL (75-99)
--- NOTE | 2019-01-24 13:14 | P.PN ---
Subjective Patient is seen in follow-up for acute kidney injury on chronic kidney disease. Patient has chronic kidney disease stage III with baseline creatinine in the range of 1.2-1.5. When patient left the rehab last month creatinine was stable in the range of 1.8-1.9. Renal function slightly improved. Lower extremity edema improving. Patient had right-sided thoracentesis done on January 19 with 850 mL drained. Urine output has been good. Torres catheter has been removed. No vomiting. Vital signs are stable. General: The patient appeared well nourished and normally developed. HEENT: Head exam is unremarkable. Neck is without jugular venous distension. LUNGS: Lungs are clear to auscultation and percussion. Breath sounds decreased. HEART: Rate and Rhythm are regular. First and second heart sounds normal. No murmurs, rubs or gallops. ABDOMEN: Abdominal exam reveals normal bowel sounds. Non-tender and non- distended. No evidence of peritonitis. EXTREMITITES: 1+ edema. Objective - Vital Signs Vital signs: Vital Signs Temp 97.7 F 01/24/19 08:42 Pulse 68 01/24/19 12:04 Resp 18 01/24/19 12:04 BP 124/60 01/24/19 12:04 Pulse Ox 98 01/24/19 12:04 Intake & Output 01/23/19 01/24/19 01/24/19 18:59 06:59 18:59 Intake Total 1018 240 Output Total 400 250 300 Balance 618 -250 -60 Weight 83.3 kg Intake: Oral 1018 240 Output: Urine 400 250 300 Other: Voiding Method Toilet Toilet Toilet # Voids 1 1 # Bowel Movements 1 - Labs CBC & Chem 7: 01/24/19 05:55 01/24/19 05:55 Labs: Abnormal Lab Results - Last 24 Hours (Table) 01/23/19 01/23/19 01/24/19 Range/Units 16:30 20:39 05:55 RBC (4.30-5.90) m/uL Hgb (13.0-17.5) gm/dL Hct (39.0-53.0) % MCHC (31.0-37.0) g/dL RDW (11.5-15.5) % Chloride 96 L (98-107) mmol/L Carbon Dioxide 36 H (22-30) mmol/L BUN 67 H (9-20) mg/dL Creatinine 2.10 H (0.66-1.25) mg/dL Glucose 45 L* (74-99) mg/dL POC Glucose (mg/dL) 265 H 391 H (75-99) mg/dL Calcium 8.3 L (8.4-10.2) mg/dL 01/24/19 01/24/19 01/24/19 Range/Units 05:55 06:10 06:29 RBC 3.61 L (4.30-5.90) m/uL Hgb 9.2 L (13.0-17.5) gm/dL Hct 29.8 L (39.0-53.0) % MCHC 30.9 L (31.0-37.0) g/dL RDW 16.5 H (11.5-15.5) % Chloride (98-107) mmol/L Carbon Dioxide (22-30) mmol/L BUN (9-20) mg/dL Creatinine (0.66-1.25) mg/dL Glucose (74-99) mg/dL POC Glucose (mg/dL) 63 L 69 L (75-99) mg/dL Calcium (8.4-10.2) mg/dL 01/24/19 01/24/19 Range/Units 07:03 11:38 RBC (4.30-5.90) m/uL Hgb (13.0-17.5) gm/dL Hct (39.0-53.0) % MCHC (31.0-37.0) g/dL RDW (11.5-15.5) % Chloride (98-107) mmol/L Carbon Dioxide (22-30) mmol/L BUN (9-20) mg/dL Creatinine (0.66-1.25) mg/dL Glucose (74-99) mg/dL POC Glucose (mg/dL) 145 H 170 H (75-99) mg/dL Calcium (8.4-10.2) mg/dL Microbiology - Last 24 Hours (Table) 01/19/19 14:00 Gram Stain - Final Pleural Fluid Body Fluid Culture - Final Assessment and Plan Plan: Assessment: 1. Acute kidney injury mostly prerenal secondary to cardiorenal syndrome Creatinine 2.10 today. 2. Chronic kidney disease stage III with baseline creatinine in the range of 1.2-1.5 but recently it's been in the range of 1.7-1.9. 3. Coronary artery disease status post CABG in December 2018. 4. Dyspnea secondary to volume overload. Better. 5. Left lower extremity wound maintained on antibiotics. 6. Systolic CHF with ejection fraction of 45-50%. 7. Urinary retention. Maintained on Flomax. Torres catheter removed on January 20. 8. Hypokalemia secondary to diuresis. Status post placement. Better. 9. Pleural effusions status post right sided thoracentesis on January 19 - 850 mL drained. Plan: Maintain lasix 40 mg orally once daily. Monitor postvoid residuals. Avoid nephrotoxins. Stable for discharge from nephrology standpoint. Repeat BMP in 2-3 days postdischarge and follow up outpatient in the next 1-2 weeks.
[2019-01-24 14:01] VITALS: BMI 29.6
--- NOTE | 2019-01-24 14:55 | P.PN ---
Subjective Progress Note Date: 01/24/19 This is a pleasant 78-year-old gentleman who has a known history of coronary artery disease, most recently presented to the hospital with non-ST elevation [place] in November of this year, at which time he underwent coronary artery bypass grafting surgery with a GONZALEZ to the LAD, reverse saphenous vein graft from the aorta to the first diagonal, first saphenous vein graft from the aorta to the first obtuse marginal, reverse saphenous vein graft from the aorta to the distal PDA, prior to that patient did have LAD stenting in 2004, history of hypertension, diabetes, hyperlipidemia, paroxysmal atrial fibrillation, and known bilateral ulcerations of his legs. He presents to the hospital on this occasion with symptoms of significant bilateral knee pain, left knee greater than the right. Patient also has been quite short of breath at home, he states that he went to the pulmonary office recently and was found to have fluid in his lungs, he was scheduled as an outpatient to undergo thoracentesis. During his hospitalization for his surgery he did have a thoracentesis performed on 2 separate occasions. Chest x-ray performed this admission revealed continued small bilateral pleural effusions with adjacent atelectasis and/or consolidation. X-ray of the knee on the left side showed soft tissue swelling with peripheral vascular occlusive disease. Blood pressure 104/56, low-grade temperature of 99.6, heart rate in the 90s. 97% oxygenation on room air. White blood cell count 15.6, hemoglobin 9.5, platelet count 210. Sodium 137, potassium 3.1, BUN 53 and creatinine 1.5. At the time of my examination this morning, patient is resting comfortably in bed, he does feel somewhat short of breath, and is having significant discomfort below the left knee. 01/18/2019 Patient was seen and examined this morning, does state that he feels his breathing is a little bit better today, he continues to have significant pain in his left knee. Patient was seen in consultation by pulmonary service yesterday, his anticoagulation is on hold and the plan is to proceed with a right-sided thoracentesis tomorrow. Blood pressure 94/50 with a heart rate in the 90s, 94% on room air. White blood cell count 14, hemoglobin 9.5, platelet count 236. Sodium 136, potassium 3.4, BUN 57 and creatinine 1.7. 01/19/2019 Patient was seen and examined this morning, states that his breathing is about the same, scheduled for thoracentesis today. Blood pressure 112/70 with a heart rate in the 90s, 92% on room air. White blood cell count 10.9, hemoglobin 9.8, platelet count 246. Sodium 135, potassium 3.6, BUN 64 and creatinine 1.9. 01/23/2019 Patient was seen and examined this morning, alert and oriented, in no acute distress. Resting comfortably in bed. Blood pressure 128/60 with a heart rate in the 70s, 98% on room air. White blood cell count 10.3, hemoglobin 10.5, platelet count 357. Sodium 138, potassium 3.8, BUN 70 and creatinine 2.1. 01/24/2019 He shouldn't seen and examined this morning, he sitting up in the chair at bedside, feels very well, his breathing is stable. Blood pressure 128/68 this morning. Sodium 138, potassium 3.9, BUN 67 and creatinine 2.1 today. Objective - Vital Signs Vital signs: Vital Signs Temp 97.7 F 01/24/19 08:42 Pulse 68 01/24/19 12:04 Resp 18 01/24/19 12:04 BP 124/60 01/24/19 12:04 Pulse Ox 98 01/24/19 12:04 Intake & Output 01/23/19 01/24/19 01/24/19 18:59 06:59 18:59 Intake Total 1018 476 Output Total 400 250 300 Balance 618 -250 176 Weight 83.3 kg 83.3 kg Intake: Oral 1018 476 Output: Urine 400 250 300 Other: Voiding Method Toilet Toilet Toilet # Voids 1 1 # Bowel Movements 1 - Exam PHYSICAL EXAMINATION: GENERAL: 78-year-old gentleman in no acute distress at the time of my examination HEENT: Head is atraumatic, normocephalic. Pupils equal, round. Sclera anicteric. Conjunctiva are clear. Mucous membranes of the mouth are moist. Neck is supple. There is no elevated jugular venous pressure. No carotid bruit is heard. HEART EXAMINATION: Heart S1-S2 irregularly irregular systolic murmur is heard CHEST EXAMINATION: Lungs clear with diminished air entry to bilateral bases. ABDOMEN: Soft, nontender. Bowel sounds are heard. No organomegaly noted. EXTREMITIES: 1+ peripheral pulses to the lower extremities with bilateral edema, significant ulceration noted on the inner right leg just below the knee, on the left leg patient also has a significant ulceration noted on the medial part of the left leg below the knee, significant erythema present as well as significant tenderness. Ecchymosis noted to the bilateral lower extremities. NEUROLOGIC patient is awake, alert and oriented 3 . - Labs CBC & Chem 7: 01/24/19 05:55 01/24/19 05:55 Labs: Abnormal Lab Results - Last 24 Hours (Table) 01/23/19 01/23/19 01/24/19 Range/Units 16:30 20:39 05:55 RBC (4.30-5.90) m/uL Hgb (13.0-17.5) gm/dL Hct (39.0-53.0) % MCHC (31.0-37.0) g/dL RDW (11.5-15.5) % Chloride 96 L (98-107) mmol/L Carbon Dioxide 36 H (22-30) mmol/L BUN 67 H (9-20) mg/dL Creatinine 2.10 H (0.66-1.25) mg/dL Glucose 45 L* (74-99) mg/dL POC Glucose (mg/dL) 265 H 391 H (75-99) mg/dL Calcium 8.3 L (8.4-10.2) mg/dL 01/24/19 01/24/19 01/24/19 Range/Units 05:55 06:10 06:29 RBC 3.61 L (4.30-5.90) m/uL Hgb 9.2 L (13.0-17.5) gm/dL Hct 29.8 L (39.0-53.0) % MCHC 30.9 L (31.0-37.0) g/dL RDW 16.5 H (11.5-15.5) % Chloride (98-107) mmol/L Carbon Dioxide (22-30) mmol/L BUN (9-20) mg/dL Creatinine (0.66-1.25) mg/dL Glucose (74-99) mg/dL POC Glucose (mg/dL) 63 L 69 L (75-99) mg/dL Calcium (8.4-10.2) mg/dL 01/24/19 01/24/19 Range/Units 07:03 11:38 RBC (4.30-5.90) m/uL Hgb (13.0-17.5) gm/dL Hct (39.0-53.0) % MCHC (31.0-37.0) g/dL RDW (11.5-15.5) % Chloride (98-107) mmol/L Carbon Dioxide (22-30) mmol/L BUN (9-20) mg/dL Creatinine (0.66-1.25) mg/dL Glucose (74-99) mg/dL POC Glucose (mg/dL) 145 H 170 H (75-99) mg/dL Calcium (8.4-10.2) mg/dL Microbiology - Last 24 Hours (Table) 01/19/19 14:00 Gram Stain - Final Pleural Fluid Body Fluid Culture - Final Assessment and Plan Plan: Assessment and plan #1 bilateral knee discomfort with possible cellulitis and evidence of significant ulcerations bilaterally, elevated white blood cell count #2 bilateral pleural effusion #3 recent coronary artery bypass grafting surgery in November #4 atrial flutter with controlled ventricular response, typical #5 diabetes #6 hypertension #7 hyperlipidemia #8 remote history of nicotine dependence #9 mild renal insufficiency #10 hypokalemia Plan From cardiology's perspective, we will recommend to continue the patient on his current medications. He may be transferred to rehab today from our perspective. We will make a follow-up appointment in the office post discharge DNP note has been reviewed, I agree with a documented findings and plan of care. Patient was seen and examined.
[2019-01-24 16:16] LABS: Glucose,Whole Blood 232 mg/dL (75-99)
[2019-01-24] MEDS: MELATONIN 3 MG TABLET PO SCH (20:16)
[2019-01-24] MEDS: ATORVASTATIN 80 MG TAB PO SCH (20:16)
[2019-01-24] MEDS: ASPIRIN 81 MG PO SCH (20:16)
[2019-01-24] MEDS ORDERED: INSULIN DETEMIR (LEVEMIR) 100 UNIT/ML SYR SQ SCH (21:00)
[2019-01-24 21:17] LABS: Glucose,Whole Blood 301 mg/dL (75-99)
--- NOTE | 2019-01-24 22:42 | P.PN ---
Subjective Mr. Brice ia a 78-year-old gentleman who recently had CABG, complicated bilateral pleural effusion, coming to the hospital with a chief complaint of bilateral lower extremity infected ulcers. Patient was initially started on daptomycin and Zosyn as per infectious disease Dr. Eldridge. And as the one culture grew Klebsiella and Pseudomonas, daptomycin was discontinued yesterday. Patient is currently on Zosyn. Patient also had thoracentesis done yesterday he had 850 mL removed from the right side. On 01/22/19 - Today the patient is resting comfortably in bed appears to be no acute distress. His brother and [id number] at the bedside. Patient states that the redness in his lower extremities has improved but the pain is still the same. Patient denies having any other issues. His difficulty in breathing has improved. He states that he is less short of breath when he moves around. On 01/23/2019 - patient is lying in his bed comfortably. He states he just had his dinner. He mentions that he is less short of breath. He also reports of decreased swelling in his lower extremities and anus tolerable now. Patient still continues to be on Zosyn. Patient denies having any chest pain or palpitations. No abdominal pain nausea vomiting or diarrhea. No hematuria or dysuria. He continues to be on by mouth Lasix, creatinine seems to be improving. Subjective 01/24/2019 Patient is clinically improving regarding his cellulitis and he is fully awake and oriented with no chest pain or dyspnea. He is hemodynamically stable. Labs showing no leukocytosis. Creatinine is stable at 2.1. Nephrology team and infectious team are following the patient and their input is appreciated. Sugar was low this morning 45-63, and his Levemir insulin was lowered from 15 units down to 5 units at bedtime and 10 Units in am. His cellulitis and leg and ulceration is significantly improving with antibiotics. No more fever. WBC is down to 8.3K, Objective - Vital Signs Vital signs: Vital Signs Temp 97.7 F 01/24/19 08:42 Pulse 68 01/24/19 12:04 Resp 18 01/24/19 12:04 BP 124/60 01/24/19 12:04 Pulse Ox 98 01/24/19 12:04 Intake & Output 01/23/19 01/24/19 01/24/19 18:59 06:59 18:59 Intake Total 1018 476 Output Total 400 250 300 Balance 618 -250 176 Weight 83.3 kg Intake: Oral 1018 476 Output: Urine 400 250 300 Other: Voiding Method Toilet Toilet Toilet # Voids 1 1 # Bowel Movements 1 - Exam GENERAL: The patient is alert and oriented x3, not in any acute distress. Well developed, well nourished. HEENT: Pupils are round and equally reacting to light. EOMI. No scleral icterus. No conjunctival pallor. Normocephalic, atraumatic. CARDIOVASCULAR: S1 and S2 present. No murmurs, rubs, or gallops. PULMONARY: Decreased breath sounds on the right lower lobe. Left side breath sounds normal. Mild crackles at the lower lung bases. ABDOMEN: Soft, nontender, nondistended, normoactive bowel sounds. No palpable organomegaly. MUSCULOSKELETAL: No joint swelling or deformity. EXTREMITIES: Patient has multiple ulcers on both his lower extremities. I did not open the bandages today. NEUROLOGICAL: Gross neurological examination did not reveal any focal deficits. SKIN: No rashes. - Labs CBC & Chem 7: 01/24/19 05:55 01/24/19 05:55 Labs: Abnormal Lab Results - Last 24 Hours (Table) 01/23/19 01/23/19 01/24/19 Range/Units 16:30 20:39 05:55 RBC (4.30-5.90) m/uL Hgb (13.0-17.5) gm/dL Hct (39.0-53.0) % MCHC (31.0-37.0) g/dL RDW (11.5-15.5) % Chloride 96 L (98-107) mmol/L Carbon Dioxide 36 H (22-30) mmol/L BUN 67 H (9-20) mg/dL Creatinine 2.10 H (0.66-1.25) mg/dL Glucose 45 L* (74-99) mg/dL POC Glucose (mg/dL) 265 H 391 H (75-99) mg/dL Calcium 8.3 L (8.4-10.2) mg/dL 01/24/19 01/24/19 01/24/19 Range/Units 05:55 06:10 06:29 RBC 3.61 L (4.30-5.90) m/uL Hgb 9.2 L (13.0-17.5) gm/dL Hct 29.8 L (39.0-53.0) % MCHC 30.9 L (31.0-37.0) g/dL RDW 16.5 H (11.5-15.5) % Chloride (98-107) mmol/L Carbon Dioxide (22-30) mmol/L BUN (9-20) mg/dL Creatinine (0.66-1.25) mg/dL Glucose (74-99) mg/dL POC Glucose (mg/dL) 63 L 69 L (75-99) mg/dL Calcium (8.4-10.2) mg/dL 01/24/19 01/24/19 Range/Units 07:03 11:38 RBC (4.30-5.90) m/uL Hgb (13.0-17.5) gm/dL Hct (39.0-53.0) % MCHC (31.0-37.0) g/dL RDW (11.5-15.5) % Chloride (98-107) mmol/L Carbon Dioxide (22-30) mmol/L BUN (9-20) mg/dL Creatinine (0.66-1.25) mg/dL Glucose (74-99) mg/dL POC Glucose (mg/dL) 145 H 170 H (75-99) mg/dL Calcium (8.4-10.2) mg/dL Microbiology - Last 24 Hours (Table) 01/19/19 14:00 Gram Stain - Final Pleural Fluid Body Fluid Culture - Final Assessment and Plan Assessment: Bilateral lower extremity cellulitis - with multiple ulcers- wound cultures showing Pseudomonas and Klebsiella Bilateral pleural effusion right more than left - status post paracentesis with removal of 850 mL uncontrolled DM with hypoglycemia Chronic systolic congestive heart failure- mild exacerbation Acute kidney injury- most likely secondary to cardiorenal syndrome - improving CK D stage III Coronary artery disease status post CABG Paroxysmal atrial flutter status post cardioversion Bilateral chronic venous stasis dermatitis Type 2 diabetes mellitus Hypertension Hyperlipidemia Plan: Continue the patient on Zosyn. Infectious disease, Dr. Eldridge ,regarding the antibiotic of choice at the time of discharge. Patient's creatinine seemed to be improving. He is currently on Lasix 40 by mouth daily. Patient's lower extremity ulcers have been improving.change levemir dose 15 units hs to 5 units hs and 10 units in am. Overall prognosis is guarded. Patient prefers to go to subacute rehab, social insurance analyst consult will be placed. Further recommendation to follow depending on the progress of the patient.
[2019-01-25 06:30] LABS: Glucose,Whole Blood 122 mg/dL (75-99)
[2019-01-25] MEDS: INSULIN ASPART (NovoLOG) 100 UNIT/ML VIAL SQ SCH ×2 (06:34→12:27)
[2019-01-25] MEDS: ASCORBIC ACID 500 MG TAB PO SCH (06:35)
[2019-01-25 07:19] LABS: Calcium 8.3 mg/dL (8.4-10.2); Potassium 4.4 mmol/L (3.5-5.1)
[2019-01-25] MEDS ORDERED: INSULIN DETEMIR (LEVEMIR) 100 UNIT/ML SYR SQ SCH ×3 (07:30→21:00)
[2019-01-25] MEDS: hydrALAZINE HCL 25 MG TAB PO SCH (08:27)
[2019-01-25] MEDS: MULTIVITAMINS, THERA 1 EACH TAB PO SCH (08:27)
[2019-01-25] MEDS: TAMSULOSIN 0.4 MG CAP.ER.24H PO SCH (08:27)
[2019-01-25] MEDS: APIXABAN 5 MG TAB PO SCH (08:27)
[2019-01-25] MEDS: METOPROLOL TARTRATE 25 MG TAB PO SCH (08:27)
[2019-01-25] MEDS: FAMOTIDINE 20 MG TAB PO SCH (08:27)
[2019-01-25] MEDS: FUROSEMIDE 40 MG TAB PO SCH (08:27)
[2019-01-25] MEDS: FERROUS SULFATE 325 MG TAB PO SCH (08:27)
[2019-01-25 11:38] LABS: Glucose,Whole Blood 273 mg/dL (75-99)
[2019-01-25 11:50] VITALS: BP 111/58; PULSE 68; TEMP 97.7
--- NOTE | 2019-01-25 12:04 | P.DS ---
Providers Date of admission: 01/16/19 16:36 Attending physician: Elvira Stoddard Consults: 01/16/19 16:27 Consult Physician Routine Consulting Provider: Bony Eldridge Consult Reason/Comments: ulcerating wounds, surrounding cellulitis Do you want consulting provider notified?: Yes 01/16/19 16:33 Consult Physician Routine Consulting Provider: Camilla Rivero Consult Reason/Comments: s/p bypass, pleural effusion on outpt CXR, admitted celluitis Do you want consulting provider notified?: Yes, Notify in am 01/16/19 20:52 Consult Physician Routine Consulting Provider: Geo Epps Consult Reason/Comments: cad, chf? Do you want consulting provider notified?: Yes 01/17/19 09:54 Consult Physician Routine Consulting Provider: Michael Bull Consult Reason/Comments: Thoracentesis? Do you want consulting provider notified?: Yes 01/17/19 15:21 Consult Physician Routine Consulting Provider: Scottie Brand Consult Reason/Comments: Management of urinary retention and Torres catheter Do you want consulting provider notified?: Yes 01/19/19 09:44 Consult Physician Routine Consulting Provider: Dayan Strange Consult Reason/Comments: DANIELLE Do you want consulting provider notified?: Yes Primary care physician: [facility] Hospital Course: Diagnoses: Bilateral lower extremity cellulitis - with multiple ulcers- wound cultures showing Pseudomonas and Klebsiella. Patient will be discharged on Cipro X7 days per infectious disease recommendation Bilateral pleural effusion right more than left - status post paracentesis with removal of 850 mL uncontrolled DM with hypoglycemia. Insulin dose was adjusted and his sugar is better controlled now Chronic systolic congestive heart failure- mild exacerbation Acute kidney injury- most likely secondary to cardiorenal syndrome - improving CKD stage III Coronary artery disease status post CABG Paroxysmal atrial flutter status post cardioversion Bilateral chronic venous stasis dermatitis Type 2 diabetes mellitus Hypertension Hyperlipidemia Hospital course: Mr. Carrasco ia a 78-year-old gentleman who recently had CABG, complicated bilateral pleural effusion, other past medical history including coronary artery disease, heart failure, atrial fibrillation/R, GERD, hypertension, hyperlipidemia, bilateral leg edema. Also he is status post quadruple coronary artery bypass grafting surgery on 12/08/2018. coming to the hospital with a chief complaint of bilateral lower extremity infected ulcers. Patient was initially started on daptomycin and Zosyn as per infectious disease Dr. Eldridge. And as the one culture grew Klebsiella and Pseudomonas, daptomycin was discontinued yesterday. Patient is continued on Zosyn. Patient also had thoracentesis done and he had 850 mL removed from the right side. Patient has been followed to the hospital by several consultants included infectious disease, cardiology and pulmonary team's. Patient showed interval improvement and his cellulitis is significantly improved, infectious disease team recommended to discharge the patient on ciprofloxacin 500 mg twice per day for 7 days patient was cleared for discharge by infectious disease team, pulmonary team and cardiology team, however he needs follow-up with ship propeller finisher as an outpatient. His creatinine is improving and today is coming down from 2.3, to 2.1, to 1.9 today. Patient remains on Lasix 40 mg oral daily and patient has been cleared for discharge by cognos analyst as well. Superintendent Job recommended to close follow-up of his basic metabolic panel in 2-3 days after discharge and follow-up with his office in 1-2 weeks. Yesterday morning his sugar dropped in the morning down to 63. He was on Levemir 15 units at bedtime, we changed that to 5 units at bedtime and 10 units in the morning plus a sliding scale, needs close monitoring of his glucose. However sugar this morning was 122 and 273, her sugars covered with sliding scale and her a.m. dose of Levemir increased to 12 units daily Patient has been cleared for discharge by all consultants as above. And himself he feels ready to be discharged going to [facility] for [facility] re[facility]. Problems and management plan were discussed with the patient and he verbalized understanding and acceptance Patient was found stable and can be discharged in guarded prognosis however he needs follow-up as an outpatient. Patient was instructed to follow up with his PCP in one week. Also is recommended that patient follow up with the ship propeller finisher and cognos analyst in 1-2 weeks. Patient also has been evaluated by cardiothoracic surgery for recent CABG surgery and he has a follow-up ap pointment Gen: patient is a AAOx3, no distress CVS: S1-S2, RRR, no murmur Lungs: B/L CTA, no wheezing Abdomen: soft, no distention, no tenderness, positive bowel sounds Extremity: no leg edema or induration. Bilateral lower extremity cellulitis and ulcers are improving significantly with mild erythema is present only on 02/10/2019 Time spent more than 35 minutes Patient Condition at Discharge: Stable Plan - Discharge Summary New Discharge Prescriptions: New Ciprofloxacin HCl [Cipro] 500 mg PO Q12H 7 Days #14 tab Apixaban [Eliquis] 5 mg PO BID tab Furosemide [Lasix] 40 mg PO DAILY tab Insulin Detemir (Levemir) [Levemir] 5 unit SQ HS syr INSULIN ASPART (NovoLOG) [NovoLOG (formulary)] 0 unit SQ ACHS vial Famotidine [Pepcid] 20 mg PO DAILY tab Acetaminophen Tab [Tylenol] 500 mg PO Q6HR PRN tab PRN Reason: Fever And/ Or Pain Insulin Detemir (Levemir) [Levemir] 12 unit SQ DAILY #1 vial Continue Ferrous Sulfate [Iron (65 MG Elemental)] 325 mg PO DAILY tab Metoprolol Tartrate [Lopressor] 25 mg PO BID tab Ascorbic Acid [Vitamin C] 500 mg PO BID-W/MEALS tab Tamsulosin [Flomax] 0.4 mg PO BID Rosuvastatin Calcium [Crestor] 40 mg PO HS Melatonin 3 mg PO HS INSULIN LISPRO (humaLOG) [humaLOG] See Protocol SQ AC-TID Aspirin EC [Ecotrin Low Dose] 81 mg PO HS hydrALAZINE HCL [Apresoline] 25 mg PO BID Discontinued Apixaban [Eliquis] 5 mg PO DAILY Metolazone [Zaroxolyn] 2.5 mg PO DAILY Insulin Glargine [Lantus] 10 unit SQ HS Furosemide [Lasix] 40 mg PO BID Discharge Medication List Ascorbic Acid [Vitamin C] 500 mg PO BID-W/MEALS tab 12/20/18 [Rx] Ferrous Sulfate [Iron (65 MG Elemental)] 325 mg PO DAILY tab 12/20/18 [Rx] Metoprolol Tartrate [Lopressor] 25 mg PO BID tab 12/20/18 [Rx] Melatonin 3 mg PO HS 01/13/19 [History] Rosuvastatin Calcium [Crestor] 40 mg PO HS 01/13/19 [History] Tamsulosin [Flomax] 0.4 mg PO BID 01/13/19 [History] Aspirin EC [Ecotrin Low Dose] 81 mg PO HS 01/16/19 [History] INSULIN LISPRO (humaLOG) [humaLOG] See Protocol SQ AC-TID 01/16/19 [History] hydrALAZINE HCL [Apresoline] 25 mg PO BID 01/16/19 [History] Acetaminophen Tab [Tylenol] 500 mg PO Q6HR PRN tab 01/25/19 [Rx] Apixaban [Eliquis] 5 mg PO BID tab 01/25/19 [Rx] Ciprofloxacin HCl [Cipro] 500 mg PO Q12H 7 Days #14 tab 01/25/19 [Rx] Famotidine [Pepcid] 20 mg PO DAILY tab 01/25/19 [Rx] Furosemide [Lasix] 40 mg PO DAILY tab 01/25/19 [Rx] INSULIN ASPART (NovoLOG) [NovoLOG (formulary)] 0 unit SQ ACHS vial 01/25/19 [Rx] Insulin Detemir (Levemir) [Levemir] 5 unit SQ HS syr 01/25/19 [Rx] Insulin Detemir (Levemir) [Levemir] 12 unit SQ DAILY #1 vial 01/25/19 [Rx] Follow up Appointment(s)/Referral(s): Camilla Rivero MD [STAFF PHYSICIAN] - 02/10/19 10:45 am [facility] [NON-STAFF] - Geo Epps MD [STAFF PHYSICIAN] - 2 Weeks Keron Barclay DO [STAFF PHYSICIAN] - 2 Weeks [facility] [Primary Care Provider] - 1-2 days Activity/Diet/Wound Care/Special Instructions: [facility]. Please notify [facility] at least 72hrs prior to discharge to help obtain new scripts. CM at [facility] can also reach out to Oscar, Back Maker,at [facility] for assistance - [phone] Dr. Eldridge to recommend antibiotic treatment for discharge. Diet: Cardiac and diabetic diet 1800 kcal per day activity is limited until you see your doctor keep monitor glucose as accu check TID-AC and at bed time as per insulin sliding scale Discharge Disposition: TRANSFER TO SNF/F
--- NOTE | 2019-01-25 12:31 | P.PN ---
Subjective Patient is seen in follow-up for acute kidney injury on chronic kidney disease. Patient has chronic kidney disease stage III with baseline creatinine in the range of 1.2-1.5. When patient left the rehab last month creatinine was stable in the range of 1.8-1.9. Renal function improving. Lower extremity edema better. Patient had right-sided thoracentesis done on January 19 with 850 mL drained. Urine output has been good. Torres catheter has been removed. No vomiting. Vital signs are stable. General: The patient appeared well nourished and normally developed. HEENT: Head exam is unremarkable. Neck is without jugular venous distension. LUNGS: Lungs are clear to auscultation and percussion. Breath sounds decreased. HEART: Rate and Rhythm are regular. First and second heart sounds normal. No murmurs, rubs or gallops. ABDOMEN: Abdominal exam reveals normal bowel sounds. Non-tender and non- distended. No evidence of peritonitis. EXTREMITITES: 1+ edema. Objective - Vital Signs Vital signs: Vital Signs Temp 97.7 F 01/25/19 11:50 Pulse 68 01/25/19 11:50 Resp 18 01/25/19 11:50 BP 111/58 01/25/19 11:50 Pulse Ox 100 01/25/19 11:50 Intake & Output 01/24/19 01/25/19 01/25/19 18:59 06:59 18:59 Intake Total 713 240 Output Total 650 800 Balance 63 -800 240 Weight 83.3 kg 83.4 kg Intake: Oral 713 240 Output: Urine 650 800 Other: Voiding Method Toilet Toilet Toilet # Voids 1 # Bowel Movements 1 3 - Labs CBC & Chem 7: 01/24/19 05:55 01/25/19 06:48 Labs: Abnormal Lab Results - Last 24 Hours (Table) 01/24/19 01/24/19 01/25/19 Range/Units 16:14 21:15 06:28 Chloride (98-107) mmol/L Carbon Dioxide (22-30) mmol/L BUN (9-20) mg/dL Creatinine (0.66-1.25) mg/dL Glucose (74-99) mg/dL POC Glucose (mg/dL) 232 H 301 H 122 H (75-99) mg/dL Calcium (8.4-10.2) mg/dL 01/25/19 01/25/19 Range/Units 06:48 11:35 Chloride 97 L (98-107) mmol/L Carbon Dioxide 35 H (22-30) mmol/L BUN 66 H (9-20) mg/dL Creatinine 1.97 H (0.66-1.25) mg/dL Glucose 101 H (74-99) mg/dL POC Glucose (mg/dL) 273 H (75-99) mg/dL Calcium 8.3 L (8.4-10.2) mg/dL Assessment and Plan Plan: Assessment: 1. Acute kidney injury mostly prerenal secondary to cardiorenal syndrome Creatinine 1.97 today. 2. Chronic kidney disease stage III with baseline creatinine in the range of 1.2-1.5 but recently it's been in the range of 1.7-1.9. 3. Coronary artery disease status post CABG in December 2018. 4. Dyspnea secondary to volume overload. Better. 5. Left lower extremity wound maintained on antibiotics. 6. Systolic CHF with ejection fraction of 45-50%. 7. Urinary retention. Maintained on Flomax. Torres catheter removed on January 20. 8. Hypokalemia secondary to diuresis. Status post placement. Better. 9. Pleural effusions status post right sided thoracentesis on January 19 - 850 mL drained. Plan: Maintain lasix 40 mg orally once daily. Monitor postvoid residuals. Avoid nephrotoxins. Stable for discharge from nephrology standpoint. Repeat BMP in 2-3 days postdischarge and follow up outpatient in the next 1-2 weeks.
--- NOTE | 2019-01-25 14:42 | P.PN ---
Subjective Progress Note Date: 01/25/19 This is a pleasant 78-year-old gentleman who has a known history of coronary artery disease, most recently presented to the hospital with non-ST elevation [place] in November of this year, at which time he underwent coronary artery bypass grafting surgery with a GONZALEZ to the LAD, reverse saphenous vein graft from the aorta to the first diagonal, first saphenous vein graft from the aorta to the first obtuse marginal, reverse saphenous vein graft from the aorta to the distal PDA, prior to that patient did have LAD stenting in 2004, history of hypertension, diabetes, hyperlipidemia, paroxysmal atrial fibrillation, and known bilateral ulcerations of his legs. He presents to the hospital on this occasion with symptoms of significant bilateral knee pain, left knee greater than the right. Patient also has been quite short of breath at home, he states that he went to the pulmonary office recently and was found to have fluid in his lungs, he was scheduled as an outpatient to undergo thoracentesis. During his hospitalization for his surgery he did have a thoracentesis performed on 2 separate occasions. Chest x-ray performed this admission revealed continued small bilateral pleural effusions with adjacent atelectasis and/or consolidation. X-ray of the knee on the left side showed soft tissue swelling with peripheral vascular occlusive disease. Blood pressure 104/56, low-grade temperature of 99.6, heart rate in the 90s. 97% oxygenation on room air. White blood cell count 15.6, hemoglobin 9.5, platelet count 210. Sodium 137, potassium 3.1, BUN 53 and creatinine 1.5. At the time of my examination this morning, patient is resting comfortably in bed, he does feel somewhat short of breath, and is having significant discomfort below the left knee. 01/18/2019 Patient was seen and examined this morning, does state that he feels his breathing is a little bit better today, he continues to have significant pain in his left knee. Patient was seen in consultation by pulmonary service yesterday, his anticoagulation is on hold and the plan is to proceed with a right-sided thoracentesis tomorrow. Blood pressure 94/50 with a heart rate in the 90s, 94% on room air. White blood cell count 14, hemoglobin 9.5, platelet count 236. Sodium 136, potassium 3.4, BUN 57 and creatinine 1.7. 01/19/2019 Patient was seen and examined this morning, states that his breathing is about the same, scheduled for thoracentesis today. Blood pressure 112/70 with a heart rate in the 90s, 92% on room air. White blood cell count 10.9, hemoglobin 9.8, platelet count 246. Sodium 135, potassium 3.6, BUN 64 and creatinine 1.9. 01/23/2019 Patient was seen and examined this morning, alert and oriented, in no acute distress. Resting comfortably in bed. Blood pressure 128/60 with a heart rate in the 70s, 98% on room air. White blood cell count 10.3, hemoglobin 10.5, platelet count 357. Sodium 138, potassium 3.8, BUN 70 and creatinine 2.1. 01/24/2019 Patient seen and examined this morning, he sitting up in the chair at bedside, feels very well, his breathing is stable. Blood pressure 128/68 this morning. Sodium 138, potassium 3.9, BUN 67 and creatinine 2.1 today. 01/25/2019 Patient seen and examined this morning, doing well. Anticipating transferred to [facility] today. Objective - Vital Signs Vital signs: Vital Signs Temp 97.7 F 01/25/19 11:50 Pulse 68 01/25/19 11:50 Resp 18 01/25/19 11:50 BP 111/58 01/25/19 11:50 Pulse Ox 100 01/25/19 11:50 Intake & Output 01/24/19 01/25/19 01/25/19 18:59 06:59 18:59 Intake Total 713 480 Output Total 650 800 500 Balance 63 -800 -20 Weight 83.3 kg 83.4 kg Intake: Oral 713 480 Output: Urine 650 800 500 Other: Voiding Method Toilet Toilet Toilet # Voids 1 # Bowel Movements 1 3 - Exam PHYSICAL EXAMINATION: GENERAL: 78-year-old gentleman in no acute distress at the time of my examination HEENT: Head is atraumatic, normocephalic. Pupils equal, round. Sclera anicteric. Conjunctiva are clear. Mucous membranes of the mouth are moist. Neck is supple. There is no elevated jugular venous pressure. No carotid bruit is heard. HEART EXAMINATION: Heart S1-S2 irregularly irregular systolic murmur is heard CHEST EXAMINATION: Lungs clear with diminished air entry to bilateral bases. ABDOMEN: Soft, nontender. Bowel sounds are heard. No organomegaly noted. EXTREMITIES: 1+ peripheral pulses to the lower extremities with bilateral edema, significant ulceration noted on the inner right leg just below the knee, on the left leg patient also has a significant ulceration noted on the medial part of the left leg below the knee, significant erythema present as well as significant tenderness. Ecchymosis noted to the bilateral lower extremities. NEUROLOGIC patient is awake, alert and oriented 3 . - Labs CBC & Chem 7: 01/24/19 05:55 01/25/19 06:48 Labs: Abnormal Lab Results - Last 24 Hours (Table) 01/24/19 01/24/19 01/25/19 Range/Units 16:14 21:15 06:28 Chloride (98-107) mmol/L Carbon Dioxide (22-30) mmol/L BUN (9-20) mg/dL Creatinine (0.66-1.25) mg/dL Glucose (74-99) mg/dL POC Glucose (mg/dL) 232 H 301 H 122 H (75-99) mg/dL Calcium (8.4-10.2) mg/dL 01/25/19 01/25/19 Range/Units 06:48 11:35 Chloride 97 L (98-107) mmol/L Carbon Dioxide 35 H (22-30) mmol/L BUN 66 H (9-20) mg/dL Creatinine 1.97 H (0.66-1.25) mg/dL Glucose 101 H (74-99) mg/dL POC Glucose (mg/dL) 273 H (75-99) mg/dL Calcium 8.3 L (8.4-10.2) mg/dL Assessment and Plan Plan: Assessment and plan #1 bilateral knee discomfort with possible cellulitis and evidence of significant ulcerations bilaterally, elevated white blood cell count #2 bilateral pleural effusion #3 recent coronary artery bypass grafting surgery in November #4 atrial flutter with controlled ventricular response, typical #5 diabetes #6 hypertension #7 hyperlipidemia #8 remote history of nicotine dependence #9 mild renal insufficiency #10 hypokalemia Plan From cardiology's perspective, we will recommend to continue the patient on his current medications. He may be transferred to rehab today from our perspective. We will make a follow-up appointment in the office post discharge DNP note has been reviewed, I agree with a documented findings and plan of care. Patient was seen and examined.
== END 2019-01-25 15:24 | DRG 299 ==
LOC: EC 14:14 → 3SCARD 16:36
PROVIDERS: ADMIT Hospitalist; ATTEND Hospitalist
PROC: 0W993ZZ Drainage of Right Pleural Cavity, Percutaneous Approach (ICD-10-PCS; principal; 2019-01-16)
DX: I87.2 Venous insufficiency (chronic) (peripheral) (principal); I50.43 Acute on chronic combined systolic (congestive) and diastolic (congestive) heart failure; I13.0 Hypertensive heart and chronic kidney disease with heart failure and stage 1 through stage 4 chronic kidney disease, or unspecified chronic kidney disease; I48.3 Typical atrial flutter; J91.8 Pleural effusion in other conditions classified elsewhere; L03.115 Cellulitis of right lower limb; L03.116 Cellulitis of left lower limb; N17.9 Acute kidney failure, unspecified; I87.313 Chronic venous hypertension (idiopathic) with ulcer of bilateral lower extremity; E11.51 Type 2 diabetes mellitus with diabetic peripheral angiopathy without gangrene; E11.649 Type 2 diabetes mellitus with hypoglycemia without coma; J44.9 Chronic obstructive pulmonary disease, unspecified; E11.22 Type 2 diabetes mellitus with diabetic chronic kidney disease; B96.1 Klebsiella pneumoniae [K. pneumoniae] as the cause of diseases classified elsewhere; B96.5 Pseudomonas (aeruginosa) (mallei) (pseudomallei) as the cause of diseases classified elsewhere; B96.89 Other specified bacterial agents as the cause of diseases classified elsewhere; D64.9 Anemia, unspecified; I34.0 Nonrheumatic mitral (valve) insufficiency; I48.0 Paroxysmal atrial fibrillation; N18.3 Chronic kidney disease, stage 3 (moderate); F03.90 Unspecified dementia, unspecified severity, without behavioral disturbance, psychotic disturbance, mood disturbance, and anxiety; E78.5 Hyperlipidemia, unspecified; E87.6 Hypokalemia; I25.10 Atherosclerotic heart disease of native coronary artery without angina pectoris; I25.2 Old myocardial infarction; K21.9 Gastro-esophageal reflux disease without esophagitis; M19.90 Unspecified osteoarthritis, unspecified site; N40.1 Benign prostatic hyperplasia with lower urinary tract symptoms; R33.8 Other retention of urine; R32 Unspecified urinary incontinence; H91.90 Unspecified hearing loss, unspecified ear; H54.7 Unspecified visual loss; Z79.01 Long term (current) use of anticoagulants; Z79.4 Long term (current) use of insulin; Z79.82 Long term (current) use of aspirin; Z79.899 Other long term (current) drug therapy; Z95.5 Presence of coronary angioplasty implant and graft; Z95.1 Presence of aortocoronary bypass graft; Z90.49 Acquired absence of other specified parts of digestive tract; Z82.49 Family history of ischemic heart disease and other diseases of the circulatory system; Z87.891 Personal history of nicotine dependence
CPT/HCPCS: 36415; 71045; 76604; 80048; 80053; 81001; 83605; 83735; 83880; 85025; 85027; 85610; 85652; 85730; 86140; 87040; 87070; 87077; 87102; 87116; 87186; 87205; 87206; 87252; 87496; 87498; 87502; 87529; 87634; 87798; 88108; 88305; 89050; 93308; 93970; 96365; 96367; 99284

== ENCOUNTER 2019-02-08 11:52 | Inpatient (IN) | payer MEDICARE, BC ==
[2019-02-08] MEDS ORDERED: FUROSEMIDE 10 MG/ML 4 ML VIAL IV STA (12:18)
[2019-02-08] MEDS ORDERED: IPRATROPIUM-ALBUTEROL 3 ML NEB INHALATION STA (12:19)
--- NOTE | 2019-02-08 12:25 | ED ---
SOB HPI - General Chief Complaint: Shortness of Breath Stated Complaint: Difficulty Breathing Time Seen by Provider: 02/08/19 12:00 Source: patient, EMS, RN notes reviewed Mode of arrival: EMS Limitations: no limitations - History of Present Illness Initial Comments: This is a 78-year-old male history of multiple medical problems including bypass surgery pleural effusions proximal as well as Dr. rosa chronic systolic CHF multiple other medical problems can be gleaned from the chart who presents today with progressively worsening shortness of breath or last 5 or 6 days also increase weight gain of approximately 12-14 pounds he states. No fevers chills or sweats today he presents today for [facility]. No falls no headache no blurry vision no palpitations reported this time is progressively worsening shortness breath. He also is being evaluated for infection of his lower extremities at the MD Complaint: shortness of breath - Related Data Home Medications Medication Instructions Recorded Confirmed Melatonin 3 mg PO HS 01/13/19 02/08/19 Rosuvastatin Calcium [Crestor] 40 mg PO HS 01/13/19 02/08/19 Tamsulosin [Flomax] 0.4 mg PO BID 01/13/19 02/08/19 Aspirin EC [Ecotrin Low Dose] 81 mg PO HS 01/16/19 02/08/19 hydrALAZINE HCL [Apresoline] 25 mg PO BID 01/16/19 02/08/19 Bisacodyl [Dulcolax] 10 mg RECTAL DAILY PRN 02/08/19 02/08/19 Glucerna Shake 1 can PO BID 02/08/19 02/08/19 INSULIN ASPART (NovoLOG) [NovoLOG 0 unit SQ ACHS 02/08/19 02/08/19 (formulary)] Insulin Detemir (Levemir) [Levemir] 5 unit SQ HS@2100 02/08/19 02/08/19 Insulin Detemir (Levemir) [Levemir] 12 unit SQ DAILY@0700 02/08/19 02/08/19 Lactose-Reduced Food [Ensure Plus] 237 ml PO DAILY 02/08/19 02/08/19 Magnesium Hydroxide [Milk of 7,200 mg PO DAILY PRN 02/08/19 02/08/19 Magnesia Concentrate] Metoprolol Tartrate [Lopressor] 25 mg PO BID@0800,1700 02/08/19 02/08/19 Na Phos,M-B/Na Phos,Di-Ba [Fleet 133 ml RECTAL DAILY PRN 02/08/19 02/08/19 Adult] Previous Rx's Medication Instructions Recorded Ascorbic Acid [Vitamin C] 500 mg PO BID-W/MEALS tab 12/20/18 Ferrous Sulfate [Iron (65 MG 325 mg PO DAILY tab 12/20/18 Elemental)] Acetaminophen Tab [Tylenol] 500 mg PO Q6HR PRN tab 01/25/19 Apixaban [Eliquis] 5 mg PO BID tab 01/25/19 Famotidine [Pepcid] 20 mg PO DAILY tab 01/25/19 Furosemide [Lasix] 40 mg PO DAILY tab 01/25/19 Allergies Allergy/AdvReac Type Severity Reaction Status Date / Time No Known Allergies Allergy Verified 02/08/19 12:02 Review of Systems ROS Statement: Those systems with pertinent positive or pertinent negative responses have been documented in the HPI. ROS Other: All systems not noted in ROS Statement are negative. Past Medical History Past Medical History: Atrial Flutter, Coronary Artery Disease (CAD), Heart Failure, Diabetes Mellitus, GERD/Reflux, Hyperlipidemia, Hypertension, My ocardial Infarction (MO), Osteoarthritis (OA), Prostate Disorder Additional Past Medical History / Comment(s): edema in legs with open blisters now being treated by homecare RN, subacute MO requiring CABG surgery Last Myocardial Infarction Date:: 12/08/18 History of Any Multi-Drug Resistant Organisms: None Reported Past Surgical History: Appendectomy, Coronary Bypass/CABG, Heart Catheterization With Stent Additional Past Surgical History / Comment(s): cataract removal, 4 vessel CABG surgery 12/08/18 Past Anesthesia/Blood Transfusion Reactions: No Reported Reaction Date of Last Stent Placement:: unsure Past Psychological History: No Psychological Hx Reported Smoking Status: Former smoker Past Alcohol Use History: None Reported Past Drug Use History: None Reported - Past Family History Mother Family Medical History: Myocardial Infarction (MO) Additional Family Medical History / Comment(s): age 64 General Exam - General Exam Comments Initial Comments: This a well-developed sec appearing male was awake alert oriented 3 Limitations: no limitations General appearance: alert Head exam: Present: atraumatic, normocephalic, normal inspection Eye exam: Present: normal appearance, PERRL, EOMI. Absent: scleral icterus, conjunctival injection, periorbital swelling ENT exam: Present: normal exam, mucous membranes moist Neck exam: Present: normal inspection, full ROM, other (No stridor JVD or bruits). Absent: tenderness, meningismus, lymphadenopathy Respiratory exam: Present: rales, accessory muscle use, other (Well-healed mid sternotomy scar bolus of both bases some accessory muscle usage). Absent: respiratory distress, wheezes, rhonchi, stridor Cardiovascular Exam: Present: normal rhythm, irregular rhythm. Absent: systolic murmur, diastolic murmur, rubs, gallop, clicks GI/Abdominal exam: Present: soft, normal bowel sounds. Absent: distended, tenderness, guarding, rebound, rigid Extremities exam: Present: full ROM, normal capillary refill, other (PG bilaterally with healing wounds). Absent: tenderness, pedal edema, joint swelling, calf tenderness Back exam: Present: normal inspection Neurological exam: Present: alert, oriented X3, CN II-XII intact Psychiatric exam: Present: normal affect, normal mood Skin exam: Present: warm, dry, intact, normal color. Absent: rash Course Vital Signs 02/08/19 02/08/19 02/08/19 11:57 12:25 12:40 Temperature 98.3 F Pulse Rate 73 86 87 Respiratory 26 H Rate Blood Pressure 109/67 O2 Sat by Pulse 86 L Oximetry 02/08/19 13:18 Temperature Pulse Rate 87 Respiratory 18 Rate Blood Pressure 123/75 O2 Sat by Pulse 95 Oximetry Medical Decision Making - Medical Decision Making Did discuss the findings with the patient early with family members and with Dr. Quijano patient will be admitted with consultation by pulmonary and cardiology medicine services. The presentation is consistent with congestive heart failure pleural effusions he does have renal insufficiency which likely explains the mildly elevated troponin. - Lab Data Result diagrams: 02/08/19 12:36 02/08/19 12:36 Lab Results 02/08/19 02/08/19 02/08/19 Range/Units 12:36 12:36 12:36 WBC 7.5 (3.8-10.6) k/uL RBC 3.87 L (4.30-5.90) m/uL Hgb 9.7 L (13.0-17.5) gm/dL Hct 31.9 L (39.0-53.0) % MCV 82.6 (80.0-100.0) fL MCH 25.0 (25.0-35.0) pg MCHC 30.2 L (31.0-37.0) g/dL RDW 17.1 H (11.5-15.5) % Plt Count 223 (150-450) k/uL Neutrophils % 75 % Lymphocytes % 7 % Monocytes % 8 % Eosinophils % 6 % Basophils % 1 % Neutrophils # 5.6 (1.3-7.7) k/uL Lymphocytes # 0.5 L (1.0-4.8) k/uL Monocytes # 0.6 (0-1.0) k/uL Eosinophils # 0.5 (0-0.7) k/uL Basophils # 0.1 (0-0.2) k/uL Hypochromasia Marked Poikilocytosis Slight Anisocytosis Slight PT (9.0-12.0) sec INR (<1.2) APTT (22.0-30.0) sec Sodium 138 (137-145) mmol/L Potassium 4.7 (3.5-5.1) mmol/L Chloride 103 (98-107) mmol/L Carbon Dioxide 27 (22-30) mmol/L Anion Gap 8 mmol/L BUN 66 H (9-20) mg/dL Creatinine 1.80 H (0.66-1.25) mg/dL Est GFR (CKD-EPI)AfAm 41 (>60 ml/min/1.73 sqM) Est GFR (CKD-EPI)NonAf 36 (>60 ml/min/1.73 sqM) Glucose 137 H (74-99) mg/dL Calcium 8.3 L (8.4-10.2) mg/dL Magnesium 2.5 H (1.6-2.3) mg/dL Total Bilirubin 0.5 (0.2-1.3) mg/dL AST 108 H (17-59) U/L ALT 163 H (21-72) U/L Alkaline Phosphatase 976 H (38-126) U/L Troponin I (0.000-0.034) ng/mL NT-Pro-B Natriuret Pep 65257 pg/mL Total Protein 6.4 (6.3-8.2) g/dL Albumin 3.3 L (3.5-5.0) g/dL 02/08/19 02/08/19 Range/Units 12:36 12:36 WBC (3.8-10.6) k/uL RBC (4.30-5.90) m/uL Hgb (13.0-17.5) gm/dL Hct (39.0-53.0) % MCV (80.0-100.0) fL MCH (25.0-35.0) pg MCHC (31.0-37.0) g/dL RDW (11.5-15.5) % Plt Count (150-450) k/uL Neutrophils % % Lymphocytes % % Monocytes % % Eosinophils % % Basophils % % Neutrophils # (1.3-7.7) k/uL Lymphocytes # (1.0-4.8) k/uL Monocytes # (0-1.0) k/uL Eosinophils # (0-0.7) k/uL Basophils # (0-0.2) k/uL Hypochromasia Poikilocytosis Anisocytosis PT 10.8 (9.0-12.0) sec INR 1.0 (<1.2) APTT 27.4 (22.0-30.0) sec Sodium (137-145) mmol/L Potassium (3.5-5.1) mmol/L Chloride (98-107) mmol/L Carbon Dioxide (22-30) mmol/L Anion Gap mmol/L BUN (9-20) mg/dL Creatinine (0.66-1.25) mg/dL Est GFR (CKD-EPI)AfAm (>60 ml/min/1.73 sqM) Est GFR (CKD-EPI)NonAf (>60 ml/min/1.73 sqM) Glucose (74-99) mg/dL Calcium (8.4-10.2) mg/dL Magnesium (1.6-2.3) mg/dL Total Bilirubin (0.2-1.3) mg/dL AST (17-59) U/L ALT (21-72) U/L Alkaline Phosphatase (38-126) U/L Troponin I 0.050 H* (0.000-0.034) ng/mL NT-Pro-B Natriuret Pep pg/mL Total Protein (6.3-8.2) g/dL Albumin (3.5-5.0) g/dL - EKG Data -: EKG Interpreted by Me (Atrial flutter with variable AV block rate was 78 QRS 150 QT since QTC 412/) - Radiology Data Radiology results: report reviewed (Imaging was reviewed as well as report evidence of CHF with small pleural effusions.), image reviewed Critical Care Time Critical Care Time: Yes Critical Care Time: 31 minutes of critical care time which includes initial presentation with history physical labs x-rays several reevaluation patient response to therapy review of old charting discussed with family members regarding the findings as well as the patient. Discussed with the admitting physician Dr. Quijano admission orders and documentation of the above Disposition Clinical Impression: Systolic congestive heart failure, Acute bronchospasm, Pulmonary edema, Pleural cavity effusion, Chronic renal failure syndrome, Elevated troponin, Peripheral edema Disposition: ADMITTED IP TO THIS HOSP Condition: Fair Referrals: Hayden Ramirez MD [Primary Care Provider] - 1-2 days
[2019-02-08 12:53] LABS: Anisocytosis Slight; Basophils # (A) 0.1 k/uL (0-0.2); Basophils % (A) 1 %; Eosinophils # (A) 0.5 k/uL (0-0.7); Eosinophils % (A) 6 %; HCT 31.9 % (39.0-53.0); HGB 9.7 gm/dL (13.0-17.5); Hypochromasia Marked; Lymphocytes # (A) 0.5 k/uL (1.0-4.8); Lymphocytes % (A) 7 %; MCHC 30.2 g/dL (31.0-37.0); MCV 82.6 fL (80.0-100.0); Mean Platelet Volume 7.6; Monocytes # (A) 0.6 k/uL (0-1.0); Monocytes % (A) 8 %; Neutrophils # (A) 5.6 k/uL (1.3-7.7); Neutrophils % (A) 75 %; Platelet Count 223 k/uL (150-450); Poikilocytosis Slight; RBC 3.87 m/uL (4.30-5.90); RDW 17.1 % (11.5-15.5); WBC 7.5 k/uL (3.8-10.6)
[2019-02-08 13:00] LABS: Albumin 3.3 g/dL (3.5-5.0); Calcium 8.3 mg/dL (8.4-10.2); Magnesium 2.5 mg/dL (1.6-2.3); Potassium 4.7 mmol/L (3.5-5.1); Total Bilirubin 0.5 mg/dL (0.2-1.3); Total Protein 6.4 g/dL (6.3-8.2)
[2019-02-08 13:02] LABS: Partial Thromboplastin Time 27.4 sec (22.0-30.0); Prothrombin Time 10.8 sec (9.0-12.0)
--- NOTE | 2019-02-08 13:04 | XR ---
EXAMINATION TYPE: XR chest 2V DATE OF EXAM: 02/08/2019 COMPARISON: 01/19/2019 HISTORY: Difficulty breathing TECHNIQUE: Frontal and lateral views of the chest are obtained. FINDINGS: There is an enlarged cardiomediastinal silhouette. There is new right lower lung opacifica tion. There is a persistent small left pleural effusion and trace right pleural effusion with mild pu lmonary vascular congestion and interstitial edema. Postsurgical changes from prior CABG are noted. N o acute osseous pathology is seen. Degenerative changes of the spine are mild. IMPRESSION: New opacification of the right lower lung may represent developing pneumonia or confluen t pulmonary edema. Similar sequela of congestive heart failure are also seen in comparison to the exa m of 01/19/2019.
[2019-02-08] MEDS ORDERED: ACETAMINOPHEN TAB 500 MG TAB PO PRN (13:52)
[2019-02-08] MEDS ORDERED: BISACODYL 10 MG SUPP RECTAL PRN (13:52)
[2019-02-08] MEDS ORDERED: MAGNESIUM HYDROXIDE 2,400 MG/10 ML CUP PO PRN (13:52)
[2019-02-08] MEDS: FUROSEMIDE 10 MG/ML 4 ML VIAL IV SCH ×2 (14:02→21:20)
[2019-02-08 15:32] LABS: Glucose,Whole Blood 112 mg/dL (75-99)
[2019-02-08] MEDS: IPRATROPIUM-ALBUTEROL 3 ML NEB INHALATION SCH ×3 (16:07→23:49)
[2019-02-08 17:32] LABS: Glucose,Whole Blood 111 mg/dL (75-99)
[2019-02-08] MEDS: INSULIN ASPART (NovoLOG) 100 UNIT/ML VIAL SQ SCH ×2 (17:52→21:19)
[2019-02-08] MEDS: ASCORBIC ACID 500 MG TAB PO SCH (18:25)
[2019-02-08] MEDS: NITROGLYCERIN OINT 1 INCH/GM PACKET TOPICAL SCH ×2 (18:25→23:04)
[2019-02-08] MEDS: METOPROLOL TARTRATE 25 MG TAB PO SCH (18:25)
--- NOTE | 2019-02-08 19:47 | CONS ---
CONSULTATION Mr. Brice is a 78-year-old gentleman who is seen for cardiac evaluation. This patient had a coronary artery bypass surgery sometime in December. Subsequently patient was transferred to the [facility] and patient was again admitted in January with infection in the leg. At that time, the patient had a thoracentesis done and about 1 L fluid was removed. This patient continues to have a problem with the fluid in the lungs and legs. He has gained about 12-14 pounds of weight. He can walk only short distances in the group home. He has a history suggestive of orthopnea or PND. He denies any fever or chills. HOME MEDICATIONS: Include melatonin, Crestor 40 mg daily and baby aspirin once a day, Dulcolax, insulin, Ensure, metoprolol 25 mg b.i.d., ferrous sulfate, Eliquis 5 mg b.i.d., Lasix 40 mg daily. REVIEW OF THE SYSTEMS: Otherwise unremarkable. PAST MEDICAL HISTORY: Includes history of coronary artery bypass surgery, congestive heart failure, atrial flutter, hyperlipidemia, hypertension, prior history of myocardial infarction. Appendicectomy. PHYSICAL EXAMINATION: At present reveals a 78-year-old gentleman who is not in any acute respiratory distress. In the emergency room, patient's blood pressure was 110/67 mmHg. Temperature was normal. Heart rate was 70 per minute, respiratory rate was 26, oxygen saturation was 86%. HEENT examination is negative. Neck is supple. Jugular venous pressure is elevated. Both the carotid pulses are felt. There is no bruit. Chest is symmetrical. There is evidence of cardiomegaly. First and second heart sounds are normal. There is a short systolic murmur noted. Lungs reveal bilateral basal rales with diminished air entry. ABDOMEN: Soft, possibly liver is enlarged. There is a 2 to 3+ pedal edema. The patient's laboratory data shows hemoglobin 9.7. Electrolytes are normal. Creatinine is 1.80. ProBNP level is 12,600. FINAL IMPRESSION: 1. This patient is admitted with shortness of breath, weight gain, suggestive of congestive cardiac failure. Patient has a bilateral leg edema. 2. History of recent coronary artery bypass surgery. 3. Chronic renal failure for atrial fibrillation with a controlled rate. RECOMMENDATIONS: We will diurese the patient with Lasix 40 mg IV q.8h hourly. Echo and Doppler study will be obtained to assess the mitral regurgitation. Continue the rest of the medications. MMEARLL / IJN: [id number] /
[2019-02-08] MEDS: TAMSULOSIN 0.4 MG CAP.ER.24H PO SCH (20:41)
[2019-02-08] MEDS: ATORVASTATIN 80 MG TAB PO SCH (20:41)
[2019-02-08] MEDS: APIXABAN 5 MG TAB PO SCH (20:41)
[2019-02-08] MEDS: ASPIRIN 81 MG PO SCH (20:42)
[2019-02-08] MEDS: MELATONIN 3 MG TABLET PO SCH (20:42)
[2019-02-08] MEDS: hydrALAZINE HCL 25 MG TAB PO SCH (20:42)
[2019-02-08 20:47] LABS: Glucose,Whole Blood 193 mg/dL (75-99)
[2019-02-08] MEDS ORDERED: NON-FORMULARY DRUG (Glucerna Shake 1 CAN) PO SCH (21:00)
[2019-02-08] MEDS: INSULIN DETEMIR (LEVEMIR) 100 UNIT/ML SYR SQ SCH (21:19)
--- NOTE | 2019-02-09 00:16 | HP ---
HISTORY AND PHYSICAL DATE OF ADMISSION: 02/08/2019 DATE OF SERVICE: 02/08/2019 PRESENTING COMPLAINT: Short of breath. HISTORY OF PRESENTING COMPLAINT: This is a pleasant 78-year-old patient who follows with Dr. Ramirez. Patient has presented with increasing short of breath for one week, and it became much more severe in the last 2 days. Slight cough. Orthopnea is present, increasing swelling in the lower extremities. No fever or chills. Patient was in the hospital about 3 weeks ago and is currently at the rehab place at [facility]. Patient has had bilateral lower extremity cellulitis and gets a dressing alternate days and is then seen by Dr. Eldridge. The patient's other chronic stable conditions include chronic kidney disease, stage II, coronary artery disease with bypass, paroxysmal atrial fibrillation, chronic venostasis dermatitis, diabetes, hypertension, hyperlipidemia, GERD, peripheral artery disease, BPH, arthritis. The patient was found to be in CHF and started on IV Lasix. REVIEW OF SYSTEMS: CONSTITUTIONAL: Tired. HEENT: Decreased hearing. RESPIRATORY: As above. CARDIOVASCULAR: As above. GASTROINTESTINAL: None. GENITOURINARY: None. MUSCULOSKELETAL: Arthritic pain in joints. DERMATOLOGICAL: As above. LYMPHATICS: None. PSYCHIATRY: None. NEUROLOGICAL: None. PAST MEDICAL HISTORY: 1. Bilateral lower extremity cellulitis. 2. CHF. 3. Chronic kidney disease, stage II. 4. Coronary artery disease with bypass. 5. Paroxysmal atrial fibrillation. 6. Chronic venostasis dermatitis. 7. Diabetes. 8. Hypertension. 9. Hyperlipidemia. 10.GERD. 11.Osteoarthritis. 12.Peripheral artery disease. 13.BPH. PAST SURGICAL HISTORY: 1. Appendectomy. 2. Coronary artery bypass. 3. Cardiac cath with stent. 4. December 08 four-vessel bypass. 5. Cardioversion for atrial flutter. 6. Bilateral cataract removal with lens implants. SOCIAL HISTORY: Patient is currently at [facility]. Does not smoke or drink alcohol. FAMILY HISTORY: Coronary artery disease. HOME MEDICATIONS: 1. Hydralazine 25 mg b.i.d. 2. Flomax 0.4 mg b.i.d. 3. Crestor 40 mg at bedtime. 4. Adult Fleet 133 mL rectally daily p.r.n. 5. Lopressor 25 mg b.i.d. 6. Melatonin 3 mg at bedtime. 7. Milk of Magnesia 2200 mg daily p.r.n. 8. Ensure Plus 1 can daily. 9. Levemir 12 units subcutaneously daily and 5 units at night. 10.NovoLog before meals and at bedtime. 11.Glucerna Shake 1 can p.o. b.i.d. 12.Lasix 40 mg daily. 13.Iron 325 p.o. daily. 14.Pepcid 20 mg daily. 15.Dulcolax 10 mg rectally daily p.r.n. 16.Aspirin 81 mg at bedtime. 17.Vitamin C 500 mg b.i.d. 18.Eliquis 5 mg b.i.d. 19.Tylenol 500 mg q.6 p.r.n. ALLERGIES: NONE. PHYSICAL EXAMINATION: VITAL SIGNS ON PRESENTATION: Temperature 98.3, pulse 73, respiration 26, blood pressure 109/67, pulse ox 86% on room air. GENERAL APPEARANCE: Well built; BMI 34. Lying in bed, short of breath. EYES: Pupils equal. Conjunctivae normal. HEENT: External appearance of nose and ears normal. Oral cavity normal. NECK: JVD raised. No mass palpable. RESPIRATORY: Effort increased. LUNGS: Decreased breath sounds. Crackles. CARDIOVASCULAR: Heart sounds irregular. Edema present. ABDOMEN: Distended, soft. Liver and spleen not palpable. LYMPHATIC: No lymph node palpable in neck or axillae. PSYCHIATRY: Alert and oriented x3. Mood and affect normal. LOWER EXTREMITIES: Dressing on the lower extremity. INVESTIGATIONS: White count 7.5, hemoglobin 9.7, platelets 223, potassium 4.7, BUN 66, creatinine 1.08. Patient's BUN and creatinine were 52 and 1.98 on 02/03/2019. Hemoglobin was 9.2 on 02/03/2019. EKG tracing, personally reviewed by me, shows atrial flutter with a variable AV block. Chest x-ray film, personally reviewed by me, shows cardiomegaly and pulmonary edema. The patient's 2D echocardiogram from last month showed EF of 45% to 50% with wall motion abnormalities. ASSESSMENT: 1. Acute on chronic congestive heart failure from systolic and diastolic dysfunction, ejection fraction 45% to 50%. 2. Persistent atrial flutter/fibrillation. Heart rate controlled. 3. Bilateral lower extremity cellulitis. Patient gets a wound dressing on alternate days. 4. Chronic kidney disease, stage II to III, from nephrosclerosis. 5. Coronary artery disease with prior history of bypass in December of this year. 6. Chronic venostasis dermatitis, lower extremity. 7. Diabetes mellitus, type 2, chronically on insulin. 8. Essential hypertension. 9. Hyperlipidemia. 10.Gastroesophageal reflux disease. 11.Primary osteoarthritis. 12.Peripheral artery disease. 13.Benign prostatic hypertrophy. PLAN: Home medications are resumed. Accu-Cheks will be followed. Patient is on IV Lasix 40 mg q.8. Cardiology was consulted. Will also consult ID for local extremity wound care. Care was discussed with the patient. Questions answered. MMODL / IJN: [id number] /
[2019-02-09 02:58] LABS: Glucose,Whole Blood 97 mg/dL (75-99)
[2019-02-09] MEDS: IPRATROPIUM-ALBUTEROL 3 ML NEB INHALATION SCH ×6 (04:20→23:51)
[2019-02-09 05:54] LABS: Glucose,Whole Blood 97 mg/dL (75-99)
[2019-02-09] MEDS: INSULIN ASPART (NovoLOG) 100 UNIT/ML VIAL SQ SCH ×4 (05:55→20:51)
[2019-02-09] MEDS: FUROSEMIDE 10 MG/ML 4 ML VIAL IV SCH (06:30)
[2019-02-09] MEDS: ASCORBIC ACID 500 MG TAB PO SCH ×2 (07:01→17:07)
[2019-02-09] MEDS ORDERED: FAMOTIDINE 20 MG TAB PO SCH (09:00)
[2019-02-09] MEDS ORDERED: FUROSEMIDE 40 MG TAB PO SCH (09:00)
[2019-02-09] MEDS ORDERED: NON-FORMULARY DRUG (Lactose-Reduced Food [Ensure Plus] 237 ML) PO SCH (09:00)
[2019-02-09] MEDS: INSULIN DETEMIR (LEVEMIR) 100 UNIT/ML SYR SQ SCH ×2 (09:01→21:05)
[2019-02-09] MEDS: METOPROLOL TARTRATE 25 MG TAB PO SCH ×2 (09:10→17:07)
[2019-02-09] MEDS: FERROUS SULFATE 325 MG TAB PO SCH (09:11)
[2019-02-09] MEDS: APIXABAN 5 MG TAB PO SCH ×2 (09:11→21:05)
[2019-02-09] MEDS: TAMSULOSIN 0.4 MG CAP.ER.24H PO SCH ×2 (09:11→21:05)
[2019-02-09] MEDS: NITROGLYCERIN OINT 1 INCH/GM PACKET TOPICAL SCH ×4 (09:15→22:18)
[2019-02-09 09:40] LABS: Anisocytosis Slight; Basophils % (A) 1 %; Eosinophils # (A) 0.4 k/uL (0-0.7); Eosinophils % (A) 6 %; HCT 30.8 % (39.0-53.0); HGB 9.1 gm/dL (13.0-17.5); Hypochromasia Marked; Lymphocytes # (A) 0.4 k/uL (1.0-4.8); Lymphocytes % (A) 6 %; MCH 24.2 pg (25.0-35.0); MCHC 29.4 g/dL (31.0-37.0); MCV 82.2 fL (80.0-100.0); Mean Platelet Volume 7.4; Monocytes # (A) 0.5 k/uL (0-1.0); Monocytes % (A) 8 %; Neutrophils # (A) 4.7 k/uL (1.3-7.7); Neutrophils % (A) 76 %; Platelet Count 230 k/uL (150-450); RBC 3.75 m/uL (4.30-5.90); RDW 17.6 % (11.5-15.5); WBC 6.2 k/uL (3.8-10.6)
[2019-02-09 09:57] LABS: Albumin 3.2 g/dL (3.5-5.0); Potassium 4.4 mmol/L (3.5-5.1); Total Protein 6.1 g/dL (6.3-8.2)
[2019-02-09 09:59] LABS: Calcium 8.2 mg/dL (8.4-10.2); Magnesium 2.4 mg/dL (1.6-2.3); Total Bilirubin 0.6 mg/dL (0.2-1.3)
[2019-02-09 11:37] LABS: Glucose,Whole Blood 173 mg/dL (75-99)
--- NOTE | 2019-02-09 11:38 | ECHOF ---
Referral Reason:chf MEASUREMENTS -------- HEIGHT: 167.6 cm WEIGHT: 92.5 kg BP: 125/70 RVIDd: 3.5 cm (< 3.3) IVSd: 1.5 cm (0.6 - 1.1) LVIDd: 4.1 cm (3.9 - 5.3) LVPWd: 1.4 cm (0.6 - 1.1) IVSs: 1.8 cm LVIDs: 2.9 cm LVPWs: 1.9 cm LAESV Index (A-L): 37.74 ml/m Ao Diam: 3.2 cm (2.0 - 3.7) AV Cusp: 0.7 cm (1.5 - 2.6) LA Diam: 3.6 cm (2.7 - 3.8) MV EXCURSION: 21.171 mm (> 18.000) MV EF SLOPE: 97 mm/s (70 - 150) EPSS: 0.8 cm MV E Nik: 1.16 m/s MV DecT: 231 ms MV A Nik: 0.35 m/s MV E/A Ratio: 3.27 AV maxP.94 mmHg AV meanP.15 mmHg RAP: 5.00 mmHg RVSP: 61.14 mmHg FINDINGS -------- Sinus rhythm. This was a technically good study. The left ventricular size is normal. There is moderate concentric left ventricular hypertrophy. O verall left ventricular systolic function is mildly impaired with, an EF between 45 - 50 %. There i s paradoxical/dysynergic septal motion consistent with post-operative status. CABG. Mid to basal inf eriorlateral is hypokinetic The right ventricle is mildly enlarged. LA is moderately dilated 34-39 ml/m2 The right atrial size is normal. Interatrial and interventricular septum intact. Aortic valve is trileaflet and is moderately thickened. There is moderate aortic stenosis present. Peak/mean gradient across the Aortic Valve is 20.94mmHg / 12.15mmHg. The mitral valve leaflets are mildly thickened. Mild mitral annular calcification present. Mild m itral regurgitation is present. Mild tricuspid regurgitation present. There is moderate pulmonary hypertension. The right ventric ular systolic pressure, as measured by Doppler, is 61.14mmHg. There is no pulmonic regurgitation present. The aortic root size is normal. IVC Not well visulized. There is no pericardial effusion. CONCLUSIONS -------- 1. Sinus rhythm. 2. This was a technically good study. 3. The left ventricular size is normal. 4. There is moderate concentric left ventricular hypertrophy. 5. Overall left ventricular systolic function is mildly impaired with, an EF between 45 - 50 %. 6. There is paradoxical/dysynergic septal motion consistent with post-operative status. CABG 7. Mid to basal inferiorlateral is hypokinetic 8. The right ventricle is mildly enlarged. 9. LA is moderately dilated 34-39 ml/m2 10. The right atrial size is normal. 11. Interatrial and interventricular septum intact. 12. Aortic valve is trileaflet and is moderately thickened. 13. There is moderate aortic stenosis present. 14. Peak/mean gradient across the Aortic Valve is 20.94mmHg / 12.15mmHg. 15. The mitral valve leaflets are mildly thickened. 16. Mild mitral annular calcification present. 17. Mild mitral regurgitation is present. 18. Mild tricuspid regurgitation present. 19. There is moderate pulmonary hypertension. 20. The right ventricular systolic pressure, as measured by Doppler, is 61.14mmHg. 21. There is no pulmonic regurgitation present. 22. The aortic root size is normal. 23. IVC Not well visulized. 24. There is no pericardial effusion. MEDIA PLANNER: Britney Pena RDCS
[2019-02-09] MEDS: hydrALAZINE HCL 25 MG TAB PO SCH (11:39)
[2019-02-09] MEDS: IOPAMIDOL-300 CONTRAST 30 ML VIAL (ORAL USE) PO PRN ×2 (12:58→14:01)
--- NOTE | 2019-02-09 14:23 | P.NPCON ---
History of Present Illness - Reason for Consult chronic renal failure - History of Present Illness Reason for presentation: Chronic kidney disease and volume overload History of present illness: Patient is a 78-year-old male seen in renal consultation for chronic kidney disease. Patient is chronically disease stage III with baseline creatinine recently in the range of 1.6-2. Etiology is cardiorenal syndrome. Patient was admitted here last month and at that time was also quite swollen. Edema subseq uently improved with IV diuretics and he was discharged to rehab facility. Patient states dose of his diuretics were decreased and he subsequently started to develop more swelling. Patient states he's gained over 20 pounds in the last few days. Patient was started on IV Lasix and was changed over to Lasix drip this morning. He has been voiding. There is no evidence of urinary retention. Denies hematuria or dysuria. Patient's echocardiogram done this admission revealed ejection fraction of 45-50% with moderate aortic stenosis and pulmonary hypertension. Denies chest pain. No vomiting or diarrhea. Hemodynamically stable. Vital signs are stable. General: The patient appeared well nourished and normally developed. HEENT: Head exam is unremarkable. Neck is without jugular venous distension. LUNGS: Breath sounds decreased. HEART: Rate and Rhythm are regular. First and second heart sounds normal. No murmurs, rubs or gallops. ABDOMEN: Abdominal exam reveals normal bowel sounds. Non-tender and non- distended. No evidence of peritonitis. EXTREMITITES: 1+ edema. Past Medical History Past Medical History: Atrial Flutter, Coronary Artery Disease (CAD), Heart Failure, Diabetes Mellitus, GERD/Reflux, Hyperlipidemia, Hypertension, Myocardial Infarction (CT), Osteoarthritis (OA), Prostate Disorder, Renal Disease, Vascular Disorder Additional Past Medical History / Comment(s): Pt recently admitted to [facility] on 01/16/19 with bilateral lower extremity cellulitis with multiple ulcers-positive for klebsiella/pseudomonas, uncontrolled diabetes, pleural effusion with R thoracentesis, exacerbation CHF. Other Hx: Paroxysmal Aflutter, PAD, chronic bilateral venous stasis dermatitis, lower extremety infection/blisters, chronic CHF, IDDM type II, BPH, post CABG urinary retention, CRD stage III, Last Myocardial Infarction Date:: 12/08/18 History of Any Multi-Drug Resistant Organisms: None Reported Past Surgical History: Appendectomy, Coronary Bypass/CABG, Heart Catheterization With Stent Additional Past Surgical History / Comment(s): 12/08/18 CABG 4 vessels, PCI with stents 2004, cardioversion for Aflutter, PICCs, midline IV, bilateral cataract removals/lens implants. Past Anesthesia/Blood Transfusion Reactions: No Reported Reaction Additional Past Anesthesia/Blood Transfusion Reaction / Comment(s): Pt received blood with CABG Date of Last Stent Placement:: 2004 Smoking Status: Never smoker - Past Family History Mother Family Medical History: Myocardial Infarction (CT) Additional Family Medical History / Comment(s): Mother had a CT at the age of 64 Father Additional Family Medical History / Comment(s): Father had mental health issues after a "bad" truck accident. Medications and Allergies Home Medications Medication Instructions Recorded Confirmed Type Ascorbic Acid [Vitamin C] 500 mg PO BID-W/MEALS tab 12/20/18 02/08/19 Rx Ferrous Sulfate [Iron (65 MG 325 mg PO DAILY tab 12/20/18 02/08/19 Rx Elemental)] Melatonin 3 mg PO HS 01/13/19 02/08/19 History Rosuvastatin Calcium [Crestor] 40 mg PO HS 01/13/19 02/08/19 History Tamsulosin [Flomax] 0.4 mg PO BID 01/13/19 02/08/19 History Aspirin EC [Ecotrin Low Dose] 81 mg PO HS 01/16/19 02/08/19 History hydrALAZINE HCL [Apresoline] 25 mg PO BID 01/16/19 02/08/19 History Acetaminophen Tab [Tylenol] 500 mg PO Q6HR PRN tab 01/25/19 02/08/19 Rx Apixaban [Eliquis] 5 mg PO BID tab 01/25/19 02/08/19 Rx Famotidine [Pepcid] 20 mg PO DAILY tab 01/25/19 02/08/19 Rx Furosemide [Lasix] 40 mg PO DAILY tab 01/25/19 02/08/19 Rx Bisacodyl [Dulcolax] 10 mg RECTAL DAILY PRN 02/08/19 02/08/19 History Glucerna Shake 1 can PO BID 02/08/19 02/08/19 History INSULIN ASPART (NovoLOG) [NovoLOG 0 unit SQ ACHS 02/08/19 02/08/19 History (formulary)] Insulin Detemir (Levemir) [Levemir] 5 unit SQ HS@2100 02/08/19 02/08/19 History Insulin Detemir (Levemir) [Levemir] 12 unit SQ DAILY@0700 02/08/19 02/08/19 History Lactose-Reduced Food [Ensure Plus] 237 ml PO DAILY 02/08/19 02/08/19 History Magnesium Hydroxide [Milk of 7,200 mg PO DAILY PRN 02/08/19 02/08/19 History Magnesia Concentrate] Metoprolol Tartrate [Lopressor] 25 mg PO BID@0800,1700 02/08/19 02/08/19 History Na Phos,M-B/Na Phos,Di-Ba [Fleet 133 ml RECTAL DAILY PRN 02/08/19 02/08/19 History Adult] Allergies Allergy/AdvReac Type Severity Reaction Status Date / Time No Known Allergies Allergy Verified 02/08/19 12:02 Physical Exam Vitals: Vital Signs Temp Pulse Pulse Resp BP BP BP 02/09/19 12:44 88 02/09/19 12:25 88 02/09/19 11:13 97.5 F L 88 20 128/62 02/09/19 08:42 86 02/09/19 08:31 84 02/09/19 08:00 97.3 F L 91 20 118/66 02/09/19 04:31 90 02/09/19 04:20 88 02/09/19 04:00 95 19 125/70 02/08/19 23:42 93 18 02/08/19 23:39 98.3 F 93 18 140/62 02/08/19 20:08 90 02/08/19 20:00 98.1 F 92 19 115/67 02/08/19 19:55 94 02/08/19 16:45 97.7 F 90 19 120/65 02/08/19 16:24 90 02/08/19 16:07 88 02/08/19 15:56 97.8 F 02/08/19 15:30 87 22 130/70 02/08/19 14:30 87 18 126/80 Pulse Ox 02/09/19 12:44 02/09/19 12:25 02/09/19 11:13 95 02/09/19 08:42 02/09/19 08:31 02/09/19 08:00 96 02/09/19 04:31 02/09/19 04:20 02/09/19 04:00 96 02/08/19 23:42 02/08/19 23:39 95 02/08/19 20:08 02/08/19 20:00 91 L 02/08/19 19:55 02/08/19 16:45 91 L 02/08/19 16:24 02/08/19 16:07 99 02/08/19 15:56 02/08/19 15:30 94 L 02/08/19 14:30 92 L Intake and Output 02/08/19 02/09/19 02/09/19 22:59 06:59 14:59 Intake Total 20 720 600 Output Total 109 339 9536 Balance -380 120 -708 Intake: IV 20 20 Invasive Line 1 20 20 Oral 700 600 Output: Urine 851 913 7970 straight catheter 600 Post Void Residual 108 Other: Voiding Method Toilet # Bowel Movements 1 Weight 92.8 kg 92.8 kg Results - Lab Results Most recent lab results Calcium 8.2 mg/dL (8.4-10.2) L 02/09/19 09:16 Phosphorus 5.6 mg/dL (2.5-4.5) H 02/09/19 12:46 Magnesium 2.4 mg/dL (1.6-2.3) H 02/09/19 09:16 02/09/19 09:16 02/09/19 09:16 Assessment and Plan Plan: Assessment: 1. Chronic kidney disease stage III secondary to cardiorenal syndrome. Ba seline creatinine in the range of 1.6=-2 recently. 2 Volume overload. 3. Systolic CHF with ejection fraction of 45-50% with moderate aortic stenosis and pulmonary hypertension. 4. Anemia of chronic kidney disease. Rule out iron deficiency. 5. 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 6. Insulin-dependent diabetes mellitus. Plan: Start Lasix drip at 10 mL an hour. Add metolazone 5 mg once daily. Low-salt diet and 1500 mL fluid restriction. Check iron studies. Add Aranesp. Monitor phosphorus for now. Thank you for the consultation. I will continue to follow the patient with you during his hospital stay.
[2019-02-09] MEDS: FUROSEMIDE 100 MG in SODIUM CHLORIDE 0.9% 90 ML IV SCH ×2 (14:42→22:57)
[2019-02-09] MEDS: METOLAZONE 5 MG TAB PO SCH (15:49)
[2019-02-09] MEDS: SPIRONOLACTONE 25 MG TAB PO SCH (15:50)
[2019-02-09] MEDS: DARBEPOETIN ALFA 40 MCG/0.4 ML SYRINGE SQ SCH (16:00)
[2019-02-09 16:45] LABS: Appearance,Urine Clear (Clear); Bacteria,Urine Rare /hpf; Bilirubin,Urine Negative (Negative); Blood,Urine Trace (Negative); Color,Urine Light Yellow; Glucose,Urine (UA) Negative (Negative); Ketones,Urine Negative (Negative); Leukocyte Esterase,Urine Negative (Negative); Mucus,Urine Rare /hpf; Nitrite,Urine Negative (Negative); Protein,Urine 1+ (Negative); RBC,Urine 6 /hpf (0-5); Specific Gravity,Urine 1.008 (1.001-1.035); Urobilinogen,Urine <2.0 mg/dL (<2.0); WBC,Urine 1 /hpf (0-5)
[2019-02-09 16:54] LABS: Glucose,Whole Blood 157 mg/dL (75-99)
--- NOTE | 2019-02-09 17:32 | PN ---
PROGRESS NOTE DATE OF SERVICE: 02/09/2019 This 78-year-old gentleman who was admitted with shortness of breath, possible CHF, acute exacerbation, with acute on chronic systolic dysfunction, ejection fraction 40% to 50%, also has persistent atrial fibrillation. The patient is in ECF at this time. The patient is followed by Dr. Baker in the outpatient setting. The patient also has bilateral leg ulcers, being followed by Dr. Eldridge, left more than the right. Troponin was found to be 0.062. ALT was also slightly elevated. Past medical history reviewed. REVIEW OF SYSTEMS: CARDIOVASCULAR SYSTEM: No angina, palpitations. RESPIRATORY SYSTEM: As mentioned earlier. GI: No nausea, vomiting. : No dysuria or retention. NERVOUS SYSTEM: No numbness, weakness. CURRENT MEDICATIONS: Reviewed. They include: 1. Tylenol 500 mg q.6 p.r.n. 2. DuoNeb q.i.d. and p.r.n. 3. Eliquis 5 mg p.o. b.i.d. 4. Vitamin C 500 mg b.i.d. 5. Aspirin 81 mg at bedtime. 6. Lipitor 80 mg at bedtime. 7. Dulcolax 10 mg p.r.n. 8. Pepcid 20 mg p.o. daily. 9. Iron sulfate 325 mg daily. 10.Lasix 40 mg IV . 11.Apresoline 25 mg p.o. b.i.d. 12.NovoLog scale. 13.Levemir 5 units subcutaneously at bedtime. 14.Levemir 12 units subcutaneously daily. 15.Milk of Magnesia. 16.Melatonin. 17.Lopressor 25 mg p.o. b.i.d. 18.Nitro-B.i.d. 19.Flomax 0.4 daily. PHYSICAL EXAMINATION: Patient is alert, oriented x3. Pulse 88, blood pressure 128/62, respiration 20, temperature 97.5, pulse ox 94% on 3 L. HEENT: Conjunctivae normal. NECK: No jugular venous distention. CARDIOVASCULAR SYSTEM: S1, S2 muffled. No S3. Ejection systolic murmur. RESPIRATORY SYSTEM: Breath sounds diminished at the bases. A few scattered rhonchi and crackles. ABDOMEN: Soft, nontender. Abdominal wall edema present. Edema on the back area is also present. LEGS: Bilateral leg edema present. Ulcerations, grade 1-2 on the right and 2-3 on the left. Slough formation on the left lower leg. NERVOUS SYSTEM: No focal deficit. Mild diffuse weakness. SKIN: As mentioned earlier. JOINTS: No active deforming arthropathy. LABS: WBC 6.2, hemoglobin 9.1. ASSESSMENT: 1. Congestive heart failure, acute exacerbation, with acute on chronic systolic dysfunction, ejection fraction 45% to 50%. 2. Persistent atrial fibrillation/flutter. 3. Bilateral lower extremity edema and ulcerations. 4. Chronic kidney disease, stage III. 5. History of recent coronary artery disease, coronary artery bypass grafting. 6. History of congestive heart failure. 7. History of atrial flutter. 8. Diabetes mellitus, type 2. 9. Gastroesophageal reflux disease. 10.Hypertension. 11.Hyperlipidemia. 12.History of myocardial infarction. 13.History of degenerative joint disease. 14.History of prostate disorder. 15.History of coronary artery disease, coronary artery bypass grafting, stent. 16.Remote history of nicotine dependence. 17.Indeterminate troponin at 0.062. 18.Elevated alkaline phosphatase. 19.FULL CODE. RECOMMENDATIONS AND DISCUSSION: I recommend to continue current medications, continue with the monitoring, symptomatic treatment. Otherwise treatments at this time I recommend continuing with the diuretics. Closely follow with Cardiology. Troponin is indeterminate. Alkaline phosphatase is elevated. I would recommend a vitamin D level and serum phosphorus level to rule out the possibility of vitamin D deficiency. Otherwise, prognosis is guarded because of multiple complex medical issues. Further recommendations to follow. I would also recommend a CT scan of the chest, abdomen and pelvis as part of the evaluation of the elevated alkaline phosphatase. MMODL / IJN: [id number] / SAIDA
--- NOTE | 2019-02-09 18:43 | CT ---
EXAMINATION TYPE: CT ChestAbdPelvis wo con DATE OF EXAM: 02/09/2019 INDICATION: Generalized pain COMPARISON: None CT DLP: 844.3 mGycm CONTRAST: Performed with Oral Contrast. No intravenous contrast TECHNIQUE: Axial images at 5 mm thick sections. Reconstructed images in the coronal plane. Delayed images through the kidneys. FINDINGS: CT CHEST: Portion of the thyroid visualized is normal. There is a small left small right pleural effusion. Some compressive atelectasis is present adjacent to the pleural effusions. Small pericardial effusion is present. No enlarged mediastinal or hilar adenopathy is evident. Multiple scattered small lymph nodes are pres ent. Enlarged lymphadenopathy is not identified. Some calcified lymphadenopathy may be present. The ascending aorta diameter at the level of the main pulmonary artery is 3.4 cm. The main pulmonary artery diameter at the bifurcation is 2.9 cm. Dense coronary artery calcification is present. Reflux in the distal esophagus is evident. CT ABDOMEN: Small amount of ascites is present. Liver: A few punctate calcified granuloma are present. Spleen: Scattered small calcified granuloma are present. Pancreas: Normal Adrenal glands: The adrenal glands are normal. Gallbladder: This may be contracted. Some wall thickening is not excluded. Small amount of fluid is a djacent which could related to ascites. Consider possible acute cholecystitis. Kidneys: No masses are evident. No hydronephrosis is present. No cysts are present. No renal stone s are evident. Aorta: Vascular calcification is within the aorta. Inferior vena cava: Normal. CT PELVIS: Loops of bowel within the abdomen and pelvis are normal. There are loops of bowel which are incom pletely distended or lack oral contrast limiting their evaluation. Appendix: Not identified. No suspicious inflammatory changes are evident. Urinary bladder: Normal. Genitourinary structures: Prostate appears normal. Osseous structures: Couple small sclerotic areas are within the femoral necks. There is a sclerotic a trey within the right medial sacrum sclerotic areas adjacent to the right sacroiliac joint within the iliac wing tiny sclerotic areas at the right humeral head. IMPRESSIONS: 1. Couple of sclerotic areas discussed above. These may be bone islands. Sclerotic metastases are not excluded. Consider possible prostate cancer metastasis. 2. Small bilateral pleural effusions. 3. Gastroesophageal reflux into the distal esophagus
[2019-02-09 19:13] LABS: Iron Saturation 5.79 (15.00-50.00)
[2019-02-09 20:48] LABS: Glucose,Whole Blood 153 mg/dL (75-99)
--- NOTE | 2019-02-09 21:02 | CONS ---
CONSULTATION DATE OF SERVICE: February 09, 2019 REASON FOR CONSULTATION: Shortness of breath. HISTORY OF PRESENT ILLNESS: 78-year-old male with a history of multiple medical problems including recent bypass grafting. He also has a history of atrial fibrillation, chronic systolic CHF, bilateral pleural effusions status post thoracentesis x3, and a whole host of other medical problems including insomnia, hyperlipidemia, coronary artery disease, congestive heart failure, diabetes, atrial fibrillation, etc. The patient came into the emergency room with a significant weight gain of about 12-14 pounds. He also admits to 5 or 6 days worth of increasing shortness of breath both at rest and on exertion. He develops orthopnea and significant lower extremity edema. No fever, chills. He is coughing a bit. Not producing much phlegm. No nausea, vomiting or diarrhea. No genitourinary complaints. His lab work, chest x-ray and exam are all consistent with CHF. He has had this same presentation in the past. His chest x-ray is reviewed. It does show evidence of congestive heart failure. There is probably smaller pleural effusions. We will see if we cannot deal with those in a more conservative fashion, which is IV diuretics. MEDICATIONS: At home include melatonin, Crestor, Flomax, low-dose Ecotrin, Apresoline, Dulcolax, NovoLog insulin, Glucerna shakes, Levemir insulin, Ensure Plus, milk of magnesia, Lopressor, vitamins, ascorbic acid, iron, Tylenol, Eliquis, Pepcid, and Lasix. ALLERGIES: Denied. PAST MEDICAL HISTORY: Positive for atrial fibrillation/flutter, CAD heart failure, diabetes, GERD, hyperlipidemia, hypertension, myocardial infarction, DJD, BPH and pleural effusions. He has also had some issues with chronic lower extremity sores or slowly healing sores. SURGICAL HISTORY: Includes appendectomy, bypass grafting, heart catheterization with stent, cataract surgery, and a number of other minor procedures including thoracentesis. SOCIAL HISTORY: Positive for previous tobacco use. Denies any alcohol use or illicit drug use. FAMILY HISTORY: Positive for myocardial infarction. REVIEW OF SYSTEMS: CONSTITUTIONAL: Weakness and fatigue. NEUROLOGIC negative. HEENT negative. CARDIOVASCULAR: Orthopnea. PULMONARY: Shortness of breath on exertion and at rest. GI negative. negative. RHEUMATOLOGIC negative. IMMUNOLOGIC negative. ENDOCRINOLOGIC: Negative. DERMATOLOGIC: Negative. PHYSICAL EXAMINATION: VITAL SIGNS: Current vital signs are reviewed. His temperature is 97.5. Heart rate 88, respiratory rate 20, blood pressure 128/62. Mean 84, 3 L saturation 95%. He appears in no acute distress. He is sitting in a chair. HEENT examination is grossly unremarkable. Nasal O2 noted at 3 L. Mucous membranes are moist. NECK: Supple. Full range of motion. No adenopathy, thyromegaly or obvious neck vein distention. CARDIOVASCULAR examination reveals regular rhythm and rate. Heart rate in mid 80s. S1, S2 normal. No S3, S4. No distinct murmur noted. Heart sounds are somewhat distant. LUNGS: Some bibasilar crackles. No wheezes or rhonchi. Breath sounds equal bilaterally. ABDOMEN: Soft. Bowel sounds are heard. Extremities reveal significant pitting edema. It is certainly occluded 3+. SKIN without rash. NEUROLOGIC examination is brief but nonfocal. Chest x-ray that was done on February 08 when he presented to the emergency room shows possible new opacification in the right lower lobe versus asymmetric pulmonary edema. There is changes on the chest x-ray of heart failure. Appears to be some small pleural effusions. LAB DATA: Reviewed. White count 6.2, hemoglobin 9.1, hematocrit 30.8, platelet count 230,000. Sodium 139, potassium 4.4, chloride 101, CO2 is 30, anion gap is 8. BUN and creatinine were 67 and 1.82. His troponin was 0.062. Previous troponin was 0.042. [place]- terminal proBNP [place] 10137. The rest of the labs look okay. Current medications are reviewed. They include his usual cardiac medications as well as IV Lasix. He is currently on Lasix drip appears to be 10 mg an hour. He is also on updrafts. The rest of the medications look appropriate. ASSESSMENT: 1. Shortness of breath, secondary to acute congestive heart failure. 2. Recent bypass grafting for coronary artery disease. 3. History of chronic obstructive pulmonary disease. 4. Hyperlipidemia. 5. History of hypertension. 6. Coronary artery disease. 7. Atrial flutter. 8. Diabetes mellitus. 9. Gastroesophageal reflux disease. 10.Osteoarthritis. 11.Benign prostatic hypertrophy. 12.Slowly healing leg ulcerations. PLAN: The patient is on appropriate medications. We will just watch the patient at this time. He is not overwhelmingly short of breath. Hopefully the effusions will improve with diuretics. He does have some underlying COPD, although that is not his major issue. The updrafts are appropriate. We will continue to follow. He needs daily weights. He should be encouraged to deep breathe, cough and clear secretions, although he appears not to have much. Incentive spirometry might be helpful as well. No additional recommendations are made. MMODL / IJN: [id number] /
[2019-02-09] MEDS: ATORVASTATIN 80 MG TAB PO SCH (21:05)
[2019-02-09] MEDS: hydrALAZINE HCL 50 MG TAB PO SCH (21:05)
[2019-02-09] MEDS: MELATONIN 3 MG TABLET PO SCH (21:05)
[2019-02-09] MEDS: ASPIRIN 81 MG PO SCH (21:05)
--- NOTE | 2019-02-09 21:05 | PN ---
PROGRESS NOTE This patient was admitted with bilateral swelling in the legs and shortness of breath. The patient has evidence of congestive cardiac failure. Echocardiogram reveals only mildly impaired left ventricular systolic function. No significant mitral regurgitation is noted. Patient does not have any significant improvement from yesterday. He is diuresing moderately. Blood pressure is 128/62 mmHg. First and second heart sounds are heard. Lungs reveal bilateral basal rales. Abdomen is soft. There is 2+ pedal edema. PLAN: We will aggressively diurese the patient with Lasix drip and we will also get serum iron studies. If his serum iron is low, we will consider giving him IV iron therapy. MMODL / IJN: [id number] /
--- NOTE | 2019-02-09 23:42 | P.CONS ---
History of Present Illness - Reason for Consult Consult date: 02/09/19 - Chief Complaint Shortness of breath - History of Present Illness 78-year-old gentleman with a known history of coronary disease who in November 2018 suffered a non-ST elevated myocardial infarction. Eversion at the present time reveal evidence of severe coronary disease and constantly was taken to the operating room and a her artery bypass graft procedure was performed including GONZALEZ to LAD as well as saphenous grafts from aorta to the first obtuse marginal as well as the distal PDA. The patient postoperatively had significant difficulties with effusion and underwent thoracentesis on 2 events. Eventually improved and was sent to rehabilitation. As related after his discharge from rehab went to the home setting but there was difficulties with the transition. The family relates that the patient is a and receives his medications from that source. Apparently time of his discharge he was at least 4 days before they're able to get most of his medications according his insulin for use at home. The patient then started to show some improvement. He had physical therapy session. The following day he became miserable with severe pain especially into his left leg. It escalated the point that he could not walk and constantly his family brought him to the emergency center and he was admitted. He had treatment of his underlying pulmonary disease, heart failure and his leg ulcerations. He again transitioned out of the hospital. He has not done well. He is continuing to have difficulty with increasing weight, increasing shortness of breath, significant generalized weakness with attempts to ambulate and constantly was again brought back to Hospital & evidence of congestive heart failure. He is now on a Lasix drip. Request for wound care was placed. The patient coughs readily short of breath and does not feel well overall. He is denying chest pain. Review of Systems HEENT:Denies headache or acute visual change. Denies sinus or mouth discomforts. Denies neck stiffness or pain. Denies significant oral cavity pain. Denies difficulty on swallowing. Lungs: Shortness of breath at admission persistent is having coughing but no hemoptysis Cardiovascular: Shortness of breath continues chest pain is improved, is not w ith significant syncope significant dyspnea with exertion Gastrointestinal:Denies nausea, vomiting, diarrhea, constipation, hematemesis, melena, hematochezia. No no significant change of bowel habit noticed. Musculoskeletal: Significant pains he was having to the left leg had improved. Continues to have ulcerations especially at the left lateral leg. 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 Neuro: No headache or focal weakness Psychiatric:Denies anxiety or depression. Lives with his brother and [id number] Endocrine: Progressive fatigue and significant weight gain Past Medical History Past Medical History: Atrial Flutter, Coronary Artery Disease (CAD), Heart Failure, Diabetes Mellitus, GERD/Reflux, Hyperlipidemia, Hypertension, Myocardial Infarction ([place]), Osteoarthritis (OA), Prostate Disorder, Renal Disease, Vascular Disorder Additional Past Medical History / Comment(s): Pt recently admitted to [facility] on 01/16/19 with bilateral lower extremity cellulitis with multiple ulcers-positive for klebsiella/pseudomonas, uncontrolled diabetes, pleural effusion with R thoracentesis, exacerbation CHF. Other Hx: Paroxysmal Aflutter, PAD, chronic bilateral venous stasis dermatitis, lower extremety infection/blisters, chronic CHF, IDDM type II, BPH, post CABG urinary retention, CRD stage III, Last Myocardial Infarction Date:: 12/08/18 History of Any Multi-Drug Resistant Organisms: None Reported Past Surgical History: Appendectomy, Coronary Bypass/CABG, Heart Catheterization With Stent Additional Past Surgical History / Comment(s): 12/08/18 CABG 4 vessels, PCI with stents 2004, cardioversion for Aflutter, PICCs, midline IV, bilateral cataract removals/lens implants. Past Anesthesia/Blood Transfusion Reactions: No Reported Reaction Additional Past Anesthesia/Blood Transfusion Reaction / Comm: Pt received blood with CABG Date of Last Stent Placement:: 2004 Additional Psychological History / Comment(s): Single. No children. No pets. Remote tobacco use. No international travel since his experience. Worked on [employer] in [place] Smoking Status: Never smoker - Past Family History Mother Family Medical History: Myocardial Infarction ([place]) Additional Family Medical History / Comment(s): Mother had a [place] at the age of 64 Father Additional Family Medical History / Comment(s): Father had mental health issues after a "bad" truck accident. Medications and Allergies Home Medications and Allergies Comment(s): Current Medications Acetaminophen (Tylenol Tab) 500 mg PO Q6HR PRN PRN Reason: Fever and/ or Mild Pain Albuterol/Ipratropium (Duoneb 0.5 Mg-3 Mg/3 Ml Soln) 3 ml INHALATION RT-Q4H [facility] Last Admin: 02/09/19 20:46 Dose: 3 ml Documented by: Apixaban (Eliquis) 5 mg PO BID [facility] Last Admin: 02/09/19 21:05 Dose: 5 mg Documented by: Ascorbic Acid (Vitamin C) 500 mg PO BID-W/MEALS [facility] Last Admin: 02/09/19 17:07 Dose: 500 mg Documented by: Aspirin (Aspirin) 81 mg PO [facility] Last Admin: 02/09/19 21:05 Dose: 81 mg Documented by: Atorvastatin Calcium (Lipitor) 80 mg PO [facility] Last Admin: 02/09/19 21:05 Dose: 80 mg Documented by: Bisacodyl (Dulcolax) 10 mg RECTAL DAILY PRN PRN Reason: Constipation Darbepoetin Samson (Aranesp) 40 mcg SQ Q7D [facility] Last Admin: 02/09/19 16:00 Dose: 40 mcg Documented by: Ferrous Sulfate (Feosol) 325 mg PO DAILY [facility] Last Admin: 02/09/19 09:11 Dose: 325 mg Documented by: Folic Acid (Folic Acid) 1 mg PO DAILY@1200 [facility] Hydralazine HCl (Apresoline) 50 mg PO BID [facility] Last Admin: 02/09/19 21:05 Dose: 50 mg Documented by: Furosemide 100 mg/ Sodium (Chloride) 100 mls @ 10 mls/hr IV .Q10H [facility] Last Admin: 02/09/19 22:57 Dose: 10 mg/hr, 10 mls/hr Documented by: Insulin Aspart (Novolog) 0 unit SQ [facility]; Protocol Last Admin: 02/09/19 20:51 Dose: Not Given Documented by: Insulin Detemir (Levemir) 12 unit SQ DAILY@0700 [facility] Last Admin: 02/09/19 09:01 Dose: 12 unit Documented by: Insulin Detemir (Levemir) 5 unit SQ HS@2100 [facility] Last Admin: 02/09/19 21:05 Dose: 5 unit Documented by: Magnesium Hydroxide (Milk Of Magnesia) 2,400 mg PO DAILY PRN PRN Reason: Constipation Melatonin (Melatonin) 3 mg PO [facility] Last Admin: 02/09/19 21:05 Dose: 3 mg Documented by: Metolazone (Zaroxolyn) 5 mg PO DAILY [facility] Last Admin: 02/09/19 15:49 Dose: 5 mg Documented by: Metoprolol Tartrate (Lopressor) 25 mg PO BID@0800,1700 [facility] Last Admin: 02/09/19 17:07 Dose: 25 mg Documented by: Multivitamins (Theragran) 1 each PO DAILY@1200 [facility] Nitroglycerin (Nitro-Bid Oint) 1 inch TOPICAL QID [facility] Last Admin: 02/09/19 22:18 Dose: 1 inch Documented by: Pantoprazole Sodium (Protonix) 40 mg PO AC-BRKFST [facility] Spironolactone (Aldactone) 25 mg PO DAILY [facility] Last Admin: 02/09/19 15:50 Dose: 25 mg Documented by: Tamsulosin HCl (Flomax) 0.4 mg PO BID [facility] Last Admin: 02/09/19 21:05 Dose: 0.4 mg Documented by: Thiamine HCl (Vitamin B-1) 100 mg PO DAILY@1200 [facility] Home Medications Medication Instructions Recorded Confirmed Type Ascorbic Acid [Vitamin C] 500 mg PO BID-W/MEALS tab 12/20/18 02/08/19 Rx Ferrous Sulfate [Iron (65 MG 325 mg PO DAILY tab 12/20/18 02/08/19 Rx Elemental)] Melatonin 3 mg PO HS 01/13/19 02/08/19 History Rosuvastatin Calcium [Crestor] 40 mg PO HS 01/13/19 02/08/19 History Tamsulosin [Flomax] 0.4 mg PO BID 01/13/19 02/08/19 History Aspirin EC [Ecotrin Low Dose] 81 mg PO HS 01/16/19 02/08/19 History hydrALAZINE HCL [Apresoline] 25 mg PO BID 01/16/19 02/08/19 History Acetaminophen Tab [Tylenol] 500 mg PO Q6HR PRN tab 01/25/19 02/08/19 Rx Apixaban [Eliquis] 5 mg PO BID tab 01/25/19 02/08/19 Rx Famotidine [Pepcid] 20 mg PO DAILY tab 01/25/19 02/08/19 Rx Furosemide [Lasix] 40 mg PO DAILY tab 01/25/19 02/08/19 Rx Bisacodyl [Dulcolax] 10 mg RECTAL DAILY PRN 02/08/19 02/08/19 History Glucerna Shake 1 can PO BID 02/08/19 02/08/19 History INSULIN ASPART (NovoLOG) [NovoLOG 0 unit SQ ACHS 02/08/19 02/08/19 History (formulary)] Insulin Detemir (Levemir) [Levemir] 5 unit SQ HS@2100 02/08/19 02/08/19 History Insulin Detemir (Levemir) [Levemir] 12 unit SQ DAILY@0700 02/08/19 02/08/19 History Lactose-Reduced Food [Ensure Plus] 237 ml PO DAILY 02/08/19 02/08/19 History Magnesium Hydroxide [Milk of 7,200 mg PO DAILY PRN 02/08/19 02/08/19 History Magnesia Concentrate] Metoprolol Tartrate [Lopressor] 25 mg PO BID@0800,1700 02/08/19 02/08/19 History Na Phos,M-B/Na Phos,Di-Ba [Fleet 133 ml RECTAL DAILY PRN 02/08/19 02/08/19 History Adult] Allergies Allergy/AdvReac Type Severity Reaction Status Date / Time No Known Allergies Allergy Verified 02/08/19 12:02 Physical Exam Vitals: Vital Signs Temp Pulse Pulse Resp BP BP Pulse Ox 02/09/19 20:56 92 02/09/19 20:47 90 02/09/19 20:00 89 20 121/71 98 02/09/19 17:06 91 138/78 02/09/19 16:51 89 02/09/19 16:45 95 02/09/19 16:44 89 02/09/19 16:00 20 02/09/19 15:37 98 F 88 20 127/74 98 02/09/19 12:44 88 02/09/19 12:25 88 02/09/19 11:13 97.5 F L 88 20 128/62 95 02/09/19 08:42 86 02/09/19 08:31 84 02/09/19 08:00 97.3 F L 91 20 118/66 96 02/09/19 04:31 90 02/09/19 04:20 88 02/09/19 04:00 95 19 125/70 96 02/08/19 23:42 93 18 02/08/19 23:39 98.3 F 93 18 140/62 95 Intake and Output 02/09/19 02/09/19 02/10/19 14:59 22:59 06:59 Intake Total 600 782.5 Output Total 1308 1000 Balance -708 -217.5 Intake: Intake, IV Titration 82.5 Amount Furosemide 100 mg In 82.5 Sodium Chloride 0.9% 90 ml @ 10 MG/HR 10 mls/hr IV .Q10H [facility] Rx#: [id number] Oral 600 700 Output: Urine 1200 1000 Post Void Residual 108 Other: Voiding Method Toilet Toilet # Voids 1 # Bowel Movements 1 1 Weight 92.8 kg HEENT: Anicteric conjunctiva are pink and moist nasal mucosa grossly intact without significant lesions, there is no thrush. Neck: The neck is supple without significant lymphadenopathy or thyromegaly. Lungs: Good bilateral air entry without significant crackles or wheezing. There is no significant bronchial sounds. There is no egophony or dullness. Heart: Regular rate and rhythm with an audible S1-S2, no S3 no S4. There is no significant murmur click or rub, PMI was nondisplaced. Abdomen: Positive bowel sounds soft and nontender without palpable masses or organomegaly. There was no guarding or rebound. Extremities: Upper extremities with diffuse small healing ecchymosis. The lower extremities have significant edema but there is marked improvement of the prior vein harvest sites. Ecchymosis is all resolved. The left lower extremity continues to have the open ulceration the lateral surface measuring approximately 3 x 3 x 0.2 cm. It is tender to touch. There is minimal surrounding erythema and little drainage noticed on the dressing at this time. Right lower extremity has edema. Neuro: Awake alert oriented to person place and time. There are no acute new gross focal sensory motor deficits. Results CBC & Chem 7: 02/09/19 09:16 02/09/19 09:16 Labs: Abnormal Lab Results - Last 24 Hours (Table) 02/09/19 02/09/19 02/09/19 Range/Units 09:16 09:16 09:16 RBC 3.75 L (4.30-5.90) m/uL Hgb 9.1 L (13.0-17.5) gm/dL Hct 30.8 L (39.0-53.0) % MCH 24.2 L (25.0-35.0) pg MCHC 29.4 L (31.0-37.0) g/dL RDW 17.6 H (11.5-15.5) % Lymphocytes # 0.4 L (1.0-4.8) k/uL BUN 67 H (9-20) mg/dL Creatinine 1.82 H (0.66-1.25) mg/dL Glucose 144 H (74-99) mg/dL POC Glucose (mg/dL) (75-99) mg/dL Calcium 8.2 L (8.4-10.2) mg/dL Phosphorus (2.5-4.5) mg/dL Magnesium 2.4 H (1.6-2.3) mg/dL Iron (65-175) ug/dL Iron Saturation (15.00-50.00) ALT 126 H (21-72) U/L Alkaline Phosphatase 760 H (38-126) U/L Troponin I 0.062 H* (0.000-0.034) ng/mL Total Protein 6.1 L (6.3-8.2) g/dL Albumin 3.2 L (3.5-5.0) g/dL Urine Protein (Negative) Urine Blood (Negative) Urine RBC (0-5) /hpf Urine Bacteria (None) /hpf Urine Mucus (None) /hpf 02/09/19 02/09/19 02/09/19 Range/Units 11:34 12:46 12:53 RBC (4.30-5.90) m/uL Hgb (13.0-17.5) gm/dL Hct (39.0-53.0) % MCH (25.0-35.0) pg MCHC (31.0-37.0) g/dL RDW (11.5-15.5) % Lymphocytes # (1.0-4.8) k/uL BUN (9-20) mg/dL Creatinine (0.66-1.25) mg/dL Glucose (74-99) mg/dL POC Glucose (mg/dL) 173 H (75-99) mg/dL Calcium (8.4-10.2) mg/dL Phosphorus 5.6 H (2.5-4.5) mg/dL Magnesium (1.6-2.3) mg/dL Iron 18 L (65-175) ug/dL Iron Saturation 5.79 L (15.00-50.00) ALT (21-72) U/L Alkaline Phosphatase (38-126) U/L Troponin I (0.000-0.034) ng/mL Total Protein (6.3-8.2) g/dL Albumin (3.5-5.0) g/dL Urine Protein (Negative) Urine Blood (Negative) Urine RBC (0-5) /hpf Urine Bacteria (None) /hpf Urine Mucus (None) /hpf 02/09/19 02/09/19 02/09/19 Range/Units 16:29 16:45 20:46 RBC (4.30-5.90) m/uL Hgb (13.0-17.5) gm/dL Hct (39.0-53.0) % MCH (25.0-35.0) pg MCHC (31.0-37.0) g/dL RDW (11.5-15.5) % Lymphocytes # (1.0-4.8) k/uL BUN (9-20) mg/dL Creatinine (0.66-1.25) mg/dL Glucose (74-99) mg/dL POC Glucose (mg/dL) 157 H 153 H (75-99) mg/dL Calcium (8.4-10.2) mg/dL Phosphorus (2.5-4.5) mg/dL Magnesium (1.6-2.3) mg/dL Iron (65-175) ug/dL Iron Saturation (15.00-50.00) ALT (21-72) U/L Alkaline Phosphatase (38-126) U/L Troponin I (0.000-0.034) ng/mL Total Protein (6.3-8.2) g/dL Albumin (3.5-5.0) g/dL Urine Protein 1+ H (Negative) Urine Blood Trace H (Negative) Urine RBC 6 H (0-5) /hpf Urine Bacteria Rare H (None) /hpf Urine Mucus Rare H (None) /hpf Microbiology - Last 24 Hours (Table) 02/09/19 18:30 Wound Culture - Preliminary Leg - Right 02/09/19 18:30 Wound Culture - Preliminary Leg - Left Laboratory Results WBC 6.2 k/uL (3.8-10.6) 02/09/19 09:16 RBC 3.75 m/uL (4.30-5.90) L 02/09/19 09:16 Hgb 9.1 gm/dL (13.0-17.5) L 02/09/19 09:16 Hct 30.8 % (39.0-53.0) L 02/09/19 09:16 MCV 82.2 fL (80.0-100.0) 02/09/19 09:16 MCH 24.2 pg (25.0-35.0) L 02/09/19 09:16 MCHC 29.4 g/dL (31.0-37.0) L 02/09/19 09:16 RDW 17.6 % (11.5-15.5) H 02/09/19 09:16 Plt Count 230 k/uL (150-450) 02/09/19 09:16 Neutrophils % 76 % 02/09/19 09:16 Lymphocytes % 6 % 02/09/19 09:16 Monocytes % 8 % 02/09/19 09:16 Eosinophils % 6 % 02/09/19 09:16 Basophils % 1 % 02/09/19 09:16 Neutrophils # 4.7 k/uL (1.3-7.7) 02/09/19 09:16 Lymphocytes # 0.4 k/uL (1.0-4.8) L 02/09/19 09:16 Monocytes # 0.5 k/uL (0-1.0) 02/09/19 09:16 Eosinophils # 0.4 k/uL (0-0.7) 02/09/19 09:16 Basophils # 0.0 k/uL (0-0.2) 02/09/19 09:16 Hypochromasia Marked 02/09/19 09:16 Poikilocytosis Slight 02/08/19 12:36 Anisocytosis Slight 02/09/19 09:16 PT 10.8 sec (9.0-12.0) 02/08/19 12:36 INR 1.0 (<1.2) 02/08/19 12:36 APTT 27.4 sec (22.0-30.0) 02/08/19 12:36 Sodium 139 mmol/L (137-145) 02/09/19 09:16 Potassium 4.4 mmol/L (3.5-5.1) 02/09/19 09:16 Chloride 101 mmol/L (98-107) 02/09/19 09:16 Carbon Dioxide 30 mmol/L (22-30) 02/09/19 09:16 Anion Gap 8 mmol/L 02/09/19 09:16 BUN 67 mg/dL (9-20) H 02/09/19 09:16 Creatinine 1.82 mg/dL (0.66-1.25) H 02/09/19 09:16 Est GFR (CKD-EPI)AfAm 41 (>60 ml/min/1.73 sqM) 02/09/19 09:16 Est GFR (CKD-EPI)NonAf 35 (>60 ml/min/1.73 sqM) 02/09/19 09:16 Glucose 144 mg/dL (74-99) H 02/09/19 09:16 POC Glucose (mg/dL) 153 mg/dL (75-99) H 02/09/19 20:46 POC Glu [employer] Samaria Pickering 02/09/19 20:46 Calcium 8.2 mg/dL (8.4-10.2) L 02/09/19 09:16 Phosphorus 5.6 mg/dL (2.5-4.5) H 02/09/19 12:46 Magnesium 2.4 mg/dL (1.6-2.3) H 02/09/19 09:16 Iron 18 ug/dL (65-175) L 02/09/19 12:53 TIBC 311 ug/dL (228-460) 02/09/19 12:53 Iron Saturation 5.79 (15.00-50.00) L 02/09/19 12:53 Ferritin 98.0 ng/mL (22.0-322.0) 02/09/19 12:53 Total Bilirubin 0.6 mg/dL (0.2-1.3) 02/09/19 09:16 AST 58 U/L (17-59) 02/09/19 09:16 ALT 126 U/L (21-72) H 02/09/19 09:16 Alkaline Phosphatase 760 U/L (38-126) H 02/09/19 09:16 Troponin I 0.062 ng/mL (0.000-0.034) H* 02/09/19 09:16 NT-Pro-B Natriuret Pep 78750 pg/mL 02/08/19 12:36 Total Protein 6.1 g/dL (6.3-8.2) L 02/09/19 09:16 Albumin 3.2 g/dL (3.5-5.0) L 02/09/19 09:16 Urine Color Light Yellow 02/09/19 16:29 Urine Appearance Clear (Clear) 02/09/19 16:29 Urine pH 5.0 (5.0-8.0) 02/09/19 16:29 Ur Specific [place] 1.008 (1.001-1.035) 02/09/19 16:29 Urine Protein 1+ (Negative) H 02/09/19 16:29 Urine Glucose (UA) Negative (Negative) 02/09/19 16:29 Urine Ketones Negative (Negative) 02/09/19 16:29 Urine Blood Trace (Negative) H 02/09/19 16:29 Urine Nitrite Negative (Negative) 02/09/19 16:29 Urine Bilirubin Negative (Negative) 02/09/19 16:29 Urine Urobilinogen <2.0 mg/dL (<2.0) 02/09/19 16:29 Ur Leukocyte Esterase Negative (Negative) 02/09/19 16:29 Urine RBC 6 /hpf (0-5) H 02/09/19 16:29 Urine WBC 1 /hpf (0-5) 02/09/19 16:29 Urine Bacteria Rare /hpf (None) H 02/09/19 16:29 Urine Mucus Rare /hpf (None) H 02/09/19 16:29 Microbiology 02/09/19 18:30 Leg - Right Wound Culture - Preliminary 02/09/19 18:30 Leg - Left Wound Culture - Preliminary Assessment and Plan (1) Acute on chronic systolic heart failure Current Visit: Yes Status: Acute Code(s): I50.23 - ACUTE ON CHRONIC SYSTOLIC (CONGESTIVE) HEART FAILURE SNOMED Code(s): 833894828 (2) Chronic renal failure syndrome Current Visit: Yes Status: Acute Code(s): N18.9 - CHRONIC KIDNEY DISEASE, UNSPECIFIED SNOMED Code(s): 04567054 (3) Leg ulcer, left Narrative/Plan: 78-year-old male has a history of significant underlying coronary artery disease status post CABG with ongoing difficulties with acute on chronic systolic congestive heart failure. Chronic volume overload postoperatively lower extremity edema in ulcerations. Currently more severe ulcerations of left leg than the right. Local wound care with absorptive silver dressing is requested for both legs. Recent culture showed evidence of Pseudomonas and Klebsiella as well as Providencia thus will utilize cefepime for now while cultures are pending. Patient is receiving Lasix via drip and has multiple consultants. Elevation of the limbs at rest as well as compression is being utilized at this time. Cultures will direct antibiotic therapy at discharge. Current Visit: No Status: Acute Code(s): L97.929 - NON-PRS CHRONIC ULC UNSP PRT OF L LOW LEG W UNSP SEVERITY SNOMED Code(s): 54105981 (4) Bilateral lower extremity edema Current Visit: Yes Status: Acute Code(s): R60.0 - LOCALIZED EDEMA SNOMED Code(s): 902951139
[2019-02-10] MEDS: IPRATROPIUM-ALBUTEROL 3 ML NEB INHALATION SCH ×5 (03:34→21:23)
[2019-02-10] MEDS: FUROSEMIDE 100 MG in SODIUM CHLORIDE 0.9% 90 ML IV SCH ×2 (04:28→17:25)
[2019-02-10] MEDS: INSULIN ASPART (NovoLOG) 100 UNIT/ML VIAL SQ SCH ×4 (06:05→21:42)
[2019-02-10 06:12] LABS: Glucose,Whole Blood 130 mg/dL (75-99)
[2019-02-10 06:22] LABS: Anisocytosis Slight; Basophils # (A) 0.1 k/uL (0-0.2); Basophils % (A) 1 %; Eosinophils # (A) 0.4 k/uL (0-0.7); Eosinophils % (A) 6 %; HCT 28.4 % (39.0-53.0); HGB 8.4 gm/dL (13.0-17.5); Hypochromasia Marked; Lymphocytes # (A) 0.4 k/uL (1.0-4.8); Lymphocytes % (A) 5 %; MCHC 29.5 g/dL (31.0-37.0); MCV 81.5 fL (80.0-100.0); Mean Platelet Volume 8.3; Monocytes # (A) 0.6 k/uL (0-1.0); Monocytes % (A) 9 %; Neutrophils # (A) 5.5 k/uL (1.3-7.7); Neutrophils % (A) 76 %; Platelet Count 211 k/uL (150-450); RBC 3.48 m/uL (4.30-5.90); RDW 17.1 % (11.5-15.5); WBC 7.3 k/uL (3.8-10.6)
[2019-02-10 06:40] LABS: Albumin 3.2 g/dL (3.5-5.0); Calcium 8.3 mg/dL (8.4-10.2); Potassium 4.4 mmol/L (3.5-5.1); Total Bilirubin 0.5 mg/dL (0.2-1.3); Total Protein 6.2 g/dL (6.3-8.2)
[2019-02-10] MEDS: ASCORBIC ACID 500 MG TAB PO SCH ×2 (07:22→17:22)
[2019-02-10] MEDS: INSULIN DETEMIR (LEVEMIR) 100 UNIT/ML SYR SQ SCH ×2 (07:22→21:41)
[2019-02-10] MEDS: PANTOPRAZOLE 40 MG TABLET PO SCH (07:22)
--- NOTE | 2019-02-10 09:10 | P.PN ---
Subjective Patient is seen in follow-up for chronic kidney disease. Patient has chronic kidney disease stage III Baseline creatinine in the range of 1.7-2. GFR currently at baseline. Patient presented with volume overload and lower extremity edema. Currently maintained on Lasix drip. Urine output was over 3 L in the last 24 hours. Patient feels better. Oral intake is good. No vomiting or diarrhea. Vital signs are stable. General: The patient appeared well nourished and normally developed. HEENT: Head exam is unremarkable. Neck is without jugular venous distension. LUNGS: Breath sounds decreased. HEART: Rate and Rhythm are regular. First and second heart sounds normal. No murmurs, rubs or gallops. ABDOMEN: Abdominal exam reveals normal bowel sounds. Non-tender and non- distended. No evidence of peritonitis. EXTREMITITES: e 1+ cash. Objective - Vital Signs Vital signs: Vital Signs Temp 97.5 F L 02/10/19 03:51 Pulse 88 02/10/19 08:39 Resp 20 02/10/19 03:51 BP 101/65 02/10/19 03:51 Pulse Ox 96 02/10/19 03:51 Intake & Output 02/09/19 02/10/19 02/10/19 18:59 06:59 18:59 Intake Total 1200 237.667 20 Output Total 2007 1100 Balance -808 -862.333 20 Weight 92.8 kg 92.6 kg Intake: Intake, IV Titration 137.667 Amount Furosemide 100 mg In 137.667 Sodium Chloride 0.9% 90 ml @ 10 MG/HR 10 mls/hr IV .Q10H [facility] Rx#: [id number] Oral 1200 100 20 Output: Urine 1900 1100 Post Void Residual 108 Other: Voiding Method Toilet Toilet # Voids 1 # Bowel Movements 1 1 - Labs CBC & Chem 7: 02/10/19 06:04 02/10/19 06:04 Labs: Abnormal Lab Results - Last 24 Hours (Table) 02/09/19 02/09/19 02/09/19 Range/Units 09:16 09:16 09:16 RBC 3.75 L (4.30-5.90) m/uL Hgb 9.1 L (13.0-17.5) gm/dL Hct 30.8 L (39.0-53.0) % MCH 24.2 L (25.0-35.0) pg MCHC 29.4 L (31.0-37.0) g/dL RDW 17.6 H (11.5-15.5) % Lymphocytes # 0.4 L (1.0-4.8) k/uL Sodium (137-145) mmol/L BUN 67 H (9-20) mg/dL Creatinine 1.82 H (0.66-1.25) mg/dL Glucose 144 H (74-99) mg/dL POC Glucose (mg/dL) (75-99) mg/dL Calcium 8.2 L (8.4-10.2) mg/dL Phosphorus (2.5-4.5) mg/dL Magnesium 2.4 H (1.6-2.3) mg/dL Iron (65-175) ug/dL Iron Saturation (15.00-50.00) ALT 126 H (21-72) U/L Alkaline Phosphatase 760 H (38-126) U/L Troponin I 0.062 H* (0.000-0.034) ng/mL Total Protein 6.1 L (6.3-8.2) g/dL Albumin 3.2 L (3.5-5.0) g/dL Urine Protein (Negative) Urine Blood (Negative) Urine RBC (0-5) /hpf Urine Bacteria (None) /hpf Urine Mucus (None) /hpf 02/09/19 02/09/19 02/09/19 Range/Units 11:34 12:46 12:53 RBC (4.30-5.90) m/uL Hgb (13.0-17.5) gm/dL Hct (39.0-53.0) % MCH (25.0-35.0) pg MCHC (31.0-37.0) g/dL RDW (11.5-15.5) % Lymphocytes # (1.0-4.8) k/uL Sodium (137-145) mmol/L BUN (9-20) mg/dL Creatinine (0.66-1.25) mg/dL Glucose (74-99) mg/dL POC Glucose (mg/dL) 173 H (75-99) mg/dL Calcium (8.4-10.2) mg/dL Phosphorus 5.6 H (2.5-4.5) mg/dL Magnesium (1.6-2.3) mg/dL Iron 18 L (65-175) ug/dL Iron Saturation 5.79 L (15.00-50.00) ALT (21-72) U/L Alkaline Phosphatase (38-126) U/L Troponin I (0.000-0.034) ng/mL Total Protein (6.3-8.2) g/dL Albumin (3.5-5.0) g/dL Urine Protein (Negative) Urine Blood (Negative) Urine RBC (0-5) /hpf Urine Bacteria (None) /hpf Urine Mucus (None) /hpf 02/09/19 02/09/19 02/09/19 Range/Units 16:29 16:45 20:46 RBC (4.30-5.90) m/uL Hgb (13.0-17.5) gm/dL Hct (39.0-53.0) % MCH (25.0-35.0) pg MCHC (31.0-37.0) g/dL RDW (11.5-15.5) % Lymphocytes # (1.0-4.8) k/uL Sodium (137-145) mmol/L BUN (9-20) mg/dL Creatinine (0.66-1.25) mg/dL Glucose (74-99) mg/dL POC Glucose (mg/dL) 157 H 153 H (75-99) mg/dL Calcium (8.4-10.2) mg/dL Phosphorus (2.5-4.5) mg/dL Magnesium (1.6-2.3) mg/dL Iron (65-175) ug/dL Iron Saturation (15.00-50.00) ALT (21-72) U/L Alkaline Phosphatase (38-126) U/L Troponin I (0.000-0.034) ng/mL Total Protein (6.3-8.2) g/dL Albumin (3.5-5.0) g/dL Urine Protein 1+ H (Negative) Urine Blood Trace H (Negative) Urine RBC 6 H (0-5) /hpf Urine Bacteria Rare H (None) /hpf Urine Mucus Rare H (None) /hpf 02/10/19 02/10/19 02/10/19 Range/Units 06:03 06:04 06:04 RBC 3.48 L (4.30-5.90) m/uL Hgb 8.4 L (13.0-17.5) gm/dL Hct 28.4 L (39.0-53.0) % MCH 24.0 L (25.0-35.0) pg MCHC 29.5 L (31.0-37.0) g/dL RDW 17.1 H (11.5-15.5) % Lymphocytes # 0.4 L (1.0-4.8) k/uL Sodium 136 L (137-145) mmol/L BUN 78 H (9-20) mg/dL Creatinine 1.87 H (0.66-1.25) mg/dL Glucose 111 H (74-99) mg/dL POC Glucose (mg/dL) 130 H (75-99) mg/dL Calcium 8.3 L (8.4-10.2) mg/dL Phosphorus (2.5-4.5) mg/dL Magnesium (1.6-2.3) mg/dL Iron (65-175) ug/dL Iron Saturation (15.00-50.00) ALT 100 H (21-72) U/L Alkaline Phosphatase 745 H (38-126) U/L Troponin I (0.000-0.034) ng/mL Total Protein 6.2 L (6.3-8.2) g/dL Albumin 3.2 L (3.5-5.0) g/dL Urine Protein (Negative) Urine Blood (Negative) Urine RBC (0-5) /hpf Urine Bacteria (None) /hpf Urine Mucus (None) /hpf Microbiology - Last 24 Hours (Table) 02/09/19 18:30 Gram Stain - Preliminary Leg - Right Wound Culture - Preliminary 02/09/19 18:30 Gram Stain - Preliminary Leg - Left Wound Culture - Preliminary Assessment and Plan Plan: Assessment: 1. Chronic kidney disease stage III secondary to cardiorenal syndrome. Baseline creatinine in the range of 1.7-2 recently. Stable. 2 Volume overload. Improving. 3. Systolic CHF with ejection fraction of 45-50% with moderate aortic stenosis and pulmonary hypertension. 4. Anemia of chronic kidney disease. Iron deficiency noted. Maintained on Aranesp. 5. 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 6. Insulin-dependent diabetes mellitus. Plan: Maintain Lasix drip at 10 mL an hour. Maintain metolazone 5 mg once daily. Low-salt diet and 1500 mL fluid restriction. IV iron 3 doses. First dose today. Repeat electrolytes in the morning.
--- NOTE | 2019-02-10 09:32 | P.PN ---
Subjective Progress Note Date: 02/10/19 Principal diagnosis: Shortness of breath related to acute congestive heart failure with systolic dysfunction On 02/10/2019 patient seen in follow-up. He is awake and alert, in no acute distress, 3 L of oxygen, and his pulse ox is 96%, afebrile, hemodynamically stable. White blood cell count today is 7.3, hemoglobin is 8.4, serum sodium is 136, potassium is 4.4, chloride is 98, CO2 is 30, BUN is 78, creatinine is 1.87. Renal profile is relatively stable. Patient remains on Lasix infusion, at 10 mg per hour, he is -1670 mL fluid balance over the last 24 hours. Breathing improving, lower extremity edema has improved. Objective - Vital Signs Vital signs: Vital Signs Temp 97.5 F L 02/10/19 03:51 Pulse 88 02/10/19 08:39 Resp 20 02/10/19 03:51 BP 101/65 02/10/19 03:51 Pulse Ox 96 02/10/19 03:51 Intake & Output 02/09/19 02/10/19 02/10/19 18:59 06:59 18:59 Intake Total 1200 237.667 20 Output Total 2007 1100 Balance -808 -862.333 20 Weight 92.8 kg 92.6 kg Intake: Intake, IV Titration 137.667 Amount Furosemide 100 mg In 137.667 Sodium Chloride 0.9% 90 ml @ 10 MG/HR 10 mls/hr IV .Q10H [facility] Rx#: [id number] Oral 1200 100 20 Output: Urine 1900 1100 Post Void Residual 108 Other: Voiding Method Toilet Toilet # Voids 1 # Bowel Movements 1 1 - Exam GENERAL EXAM: Alert, pleasant, 78-year-old white male 3 L of oxygen with a pulse ox of 96% comfortable in no apparent distress. HEAD: Normocephalic/atraumatic. EYES: Normal reaction of pupils, equal size. Conjunctiva pink, sclera white. NOSE: Clear with pink turbinates. THROAT: No erythema or exudates. NECK: No masses, no JVD, no thyroid enlargement, no adenopathy. CHEST: No chest wall deformity. Symmetrical expansion. LUNGS: Equal air entry with diminished breath sounds CVS: Regular rate and rhythm, normal S1 and S2, no gallops, no murmurs, no rubs ABDOMEN: Soft, nontender. No hepatosplenomegaly, normal bowel sounds, no guarding or rigidity. EXTREMITIES: No clubbing, 1+ lower extremity edema, no cyanosis, 2+ pulses and upper and lower extremities. MUSCULOSKELETAL: Muscle strength and tone normal. SPINE: No scoliosis or deformity SKIN: No rashes CENTRAL NERVOUS SYSTEM: Alert and oriented -3. No focal deficits, tone is normal in all 4 extremities. PSYCHIATRIC: Alert and oriented -3. Appropriate affect. Intact judgment and insight. - Labs CBC & Chem 7: 02/10/19 06:04 02/10/19 06:04 Labs: Abnormal Lab Results - Last 24 Hours (Table) 02/09/19 02/09/19 02/09/19 Range/Units 09:16 09:16 09:16 RBC 3.75 L (4.30-5.90) m/uL Hgb 9.1 L (13.0-17.5) gm/dL Hct 30.8 L (39.0-53.0) % MCH 24.2 L (25.0-35.0) pg MCHC 29.4 L (31.0-37.0) g/dL RDW 17.6 H (11.5-15.5) % Lymphocytes # 0.4 L (1.0-4.8) k/uL Sodium (137-145) mmol/L BUN 67 H (9-20) mg/dL Creatinine 1.82 H (0.66-1.25) mg/dL Glucose 144 H (74-99) mg/dL POC Glucose (mg/dL) (75-99) mg/dL Calcium 8.2 L (8.4-10.2) mg/dL Phosphorus (2.5-4.5) mg/dL Magnesium 2.4 H (1.6-2.3) mg/dL Iron (65-175) ug/dL Iron Saturation (15.00-50.00) ALT 126 H (21-72) U/L Alkaline Phosphatase 760 H (38-126) U/L Troponin I 0.062 H* (0.000-0.034) ng/mL Total Protein 6.1 L (6.3-8.2) g/dL Albumin 3.2 L (3.5-5.0) g/dL Urine Protein (Negative) Urine Blood (Negative) Urine RBC (0-5) /hpf Urine Bacteria (None) /hpf Urine Mucus (None) /hpf 02/09/19 02/09/19 02/09/19 Range/Units 11:34 12:46 12:53 RBC (4.30-5.90) m/uL Hgb (13.0-17.5) gm/dL Hct (39.0-53.0) % MCH (25.0-35.0) pg MCHC (31.0-37.0) g/dL RDW (11.5-15.5) % Lymphocytes # (1.0-4.8) k/uL Sodium (137-145) mmol/L BUN (9-20) mg/dL Creatinine (0.66-1.25) mg/dL Glucose (74-99) mg/dL POC Glucose (mg/dL) 173 H (75-99) mg/dL Calcium (8.4-10.2) mg/dL Phosphorus 5.6 H (2.5-4.5) mg/dL Magnesium (1.6-2.3) mg/dL Iron 18 L (65-175) ug/dL Iron Saturation 5.79 L (15.00-50.00) ALT (21-72) U/L Alkaline Phosphatase (38-126) U/L Troponin I (0.000-0.034) ng/mL Total Protein (6.3-8.2) g/dL Albumin (3.5-5.0) g/dL Urine Protein (Negative) Urine Blood (Negative) Urine RBC (0-5) /hpf Urine Bacteria (None) /hpf Urine Mucus (None) /hpf 02/09/19 02/09/19 02/09/19 Range/Units 16:29 16:45 20:46 RBC (4.30-5.90) m/uL Hgb (13.0-17.5) gm/dL Hct (39.0-53.0) % MCH (25.0-35.0) pg MCHC (31.0-37.0) g/dL RDW (11.5-15.5) % Lymphocytes # (1.0-4.8) k/uL Sodium (137-145) mmol/L BUN (9-20) mg/dL Creatinine (0.66-1.25) mg/dL Glucose (74-99) mg/dL POC Glucose (mg/dL) 157 H 153 H (75-99) mg/dL Calcium (8.4-10.2) mg/dL Phosphorus (2.5-4.5) mg/dL Magnesium (1.6-2.3) mg/dL Iron (65-175) ug/dL Iron Saturation (15.00-50.00) ALT (21-72) U/L Alkaline Phosphatase (38-126) U/L Troponin I (0.000-0.034) ng/mL Total Protein (6.3-8.2) g/dL Albumin (3.5-5.0) g/dL Urine Protein 1+ H (Negative) Urine Blood Trace H (Negative) Urine RBC 6 H (0-5) /hpf Urine Bacteria Rare H (None) /hpf Urine Mucus Rare H (None) /hpf 02/10/19 02/10/19 02/10/19 Range/Units 06:03 06:04 06:04 RBC 3.48 L (4.30-5.90) m/uL Hgb 8.4 L (13.0-17.5) gm/dL Hct 28.4 L (39.0-53.0) % MCH 24.0 L (25.0-35.0) pg MCHC 29.5 L (31.0-37.0) g/dL RDW 17.1 H (11.5-15.5) % Lymphocytes # 0.4 L (1.0-4.8) k/uL Sodium 136 L (137-145) mmol/L BUN 78 H (9-20) mg/dL Creatinine 1.87 H (0.66-1.25) mg/dL Glucose 111 H (74-99) mg/dL POC Glucose (mg/dL) 130 H (75-99) mg/dL Calcium 8.3 L (8.4-10.2) mg/dL Phosphorus (2.5-4.5) mg/dL Magnesium (1.6-2.3) mg/dL Iron (65-175) ug/dL Iron Saturation (15.00-50.00) ALT 100 H (21-72) U/L Alkaline Phosphatase 745 H (38-126) U/L Troponin I (0.000-0.034) ng/mL Total Protein 6.2 L (6.3-8.2) g/dL Albumin 3.2 L (3.5-5.0) g/dL Urine Protein (Negative) Urine Blood (Negative) Urine RBC (0-5) /hpf Urine Bacteria (None) /hpf Urine Mucus (None) /hpf Microbiology - Last 24 Hours (Table) 02/09/19 18:30 Gram Stain - Preliminary Leg - Right Wound Culture - Preliminary 02/09/19 18:30 Gram Stain - Preliminary Leg - Left Wound Culture - Preliminary Assessment and Plan Plan: Assessment: #1. Acute exacerbation of chronic congestive heart failure with systolic dysfunction #2. Coronary artery disease with history of recent bypass grafting #3. History of COPD #4. Hyperlipidemia #5. Hypertension #6. Atrial flutter #7. GERD/reflux #8. Osteoarthritis #9. BPH #10. Slowly healing leg ulcerations Plan: Continue current treatment, patient is maintaining negative fluid balance, continues on Lasix drip, renal profile is relatively stable, nephrology is following, CT chest, abdomen and pelvis has been reviewed, showing small pleural effusions bilaterally. I performed a history & physical examination of the patient and discussed their management with my nurse practitioner, Demetria Ramos. I reviewed the nurse practitioner's note and agree with the documented findings and plan of care. Lung sounds are positive for diminished breath sounds. The findings and the impression was discussed with the patient. I attest to the documentation by the nurse practitioner. Time with Patient: Less than 30
[2019-02-10] MEDS: APIXABAN 5 MG TAB PO SCH ×2 (10:58→21:41)
[2019-02-10] MEDS: FERROUS SULFATE 325 MG TAB PO SCH (10:58)
[2019-02-10] MEDS: hydrALAZINE HCL 50 MG TAB PO SCH ×2 (10:58→21:41)
[2019-02-10] MEDS: TAMSULOSIN 0.4 MG CAP.ER.24H PO SCH ×2 (10:59→21:41)
[2019-02-10] MEDS: SPIRONOLACTONE 25 MG TAB PO SCH (10:59)
[2019-02-10] MEDS: NITROGLYCERIN OINT 1 INCH/GM PACKET TOPICAL SCH ×4 (10:59→22:57)
[2019-02-10] MEDS: FOLIC ACID 1 MG TAB PO SCH (10:59)
[2019-02-10] MEDS: THIAMINE 100 MG TAB PO SCH (11:00)
[2019-02-10] MEDS: MULTIVITAMINS, THERA 1 EACH TAB PO SCH (11:00)
[2019-02-10] MEDS: METOLAZONE 5 MG TAB PO SCH (11:02)
[2019-02-10] MEDS: METOPROLOL TARTRATE 25 MG TAB PO SCH ×2 (11:02→17:22)
[2019-02-10] MEDS: SODIUM FERRIC GLUCONAT-SUCROSE 125 MG in SODIUM CHLORIDE 0.9% 100 ML IVPB SCH (11:04)
[2019-02-10 11:17] LABS: Glucose,Whole Blood 136 mg/dL (75-99)
--- NOTE | 2019-02-10 14:47 | PN ---
PROGRESS NOTE This patient is status post coronary artery bypass surgery, has been having recurrent episodes of swelling in the legs. The patient has been now treated with Lasix drip, Aldactone, patient seems to be improving. He has been diuresing better. Denies any orthopnea or PND. Blood pressure is 101/65 mmHg. First and second heart sounds are heard. Lungs are clear to auscultation and percussion. There is 2+ pedal edema. This patient's alkaline phosphate is elevated. CT scan of the abdomen and pelvis was done which shows evidence of sclerotic changes in the pelvic bones. A possibility of metastatic from the prostate is being considered. We will continue the current treatment. MMODL / IJN: [id number] /
[2019-02-10 17:13] LABS: Glucose,Whole Blood 191 mg/dL (75-99)
--- NOTE | 2019-02-10 17:51 | PN ---
PROGRESS NOTE DATE OF SERVICE: 02/10/2019. This 78-year-old gentleman was admitted with CHF exacerbation, ejection fraction 40-50 percent. The patient also had elevated alkaline phosphatase, which is consistent at 745 at this time. The patient underwent a CT scan of the abdomen and pelvis which showed some sclerotic areas and small bilateral pleural effusions also. The patient has also been evaluated by multiple consultants including Nephrology, Infectious Disease and as well as pulmonology also. The patient also had bilateral leg ulcers. Cultures obtained. The patient is on broad-spectrum IV antibiotics. PAST MEDICAL HISTORY: Reviewed. REVIEW OF SYSTEMS: Cardiovascular system: No angina or palpitations. RESPIRATORY: As mentioned earlier. GI no nausea or vomiting. no dysuria. as mentioned earlier. CENTRAL NERVOUS SYSTEM: No numbness or weakness. CURRENT MEDICATIONS: Reviewed and include: 1. Tylenol p.r.n. 2. DuoNeb q.i.d. p.r.n. 3. Eliquis 5 mg p.o. b.i.d. 4. Vitamin C 500 mg p.o. b.i.d. 5. Aspirin 81 mg. 6. Lipitor 80 mg q.h.s. 7. Dulcolax. 9. Iron sulfate 320 mg p.o. daily. 10.Folic acid 1 mg b.i.d. 11.Lasix drip. 12.Apresoline. 13.Levemir. 14.Milk of magnesia. 15.Melatonin. 16.Zaroxolyn. 17.Nitro-Bid. 18.Aldactone. 19.Flomax. 20.Vitamin B1. PHYSICAL EXAM: Patient is alert and oriented times three. Pulse 86, blood pressure 109/56, respiration 18, temperature 97.8, pulse ox 98% on 3 L. HEENT: Conjunctivae normal. Oral mucosa moist NECK: No jugular venous distention. There is no carotid bruit. No lymph node enlargement. CARDIOVASCULAR: S1, S2 muffled. RESPIRATORY: Breath sounds diminished in the bases. A few scattered rhonchi and crackles. ABDOMEN: Soft, nontender. LEGS: Bilateral leg edema, leg ulceration also present. NERVOUS SYSTEM: No focal deficits. LABS: WBC 7.3, hemoglobin 8.4, creatinine is 1.87, alkaline phosphatase elevated. ASSESSMENT: 1. Congestive heart failure acute exacerbation with acute on chronic systolic and diastolic dysfunction, ejection fraction 40-50 percent. 2. Persistent atrial fibrillation flutter. 3. Bilateral lower extremity edema and ulcerations. 4. Chronic kidney disease stage III. 5. Possibly bony sclerotic lesions, rule out metastasis. 6. History of recent coronary artery disease, coronary artery bypass grafting. 7. History of congestive heart failure. 8. History of atrial flutter. 9. History of diabetes type 2. 10.Gastroesophageal reflux disease. 11.Hypertension. 12.Hyperlipidemia. 13.History of myocardial infarction. 14.History of degenerative joint disease. 15.History of prostate disorder. 16.History of coronary artery disease, coronary artery bypass grafting stent. 17.Remote history of nicotine dependence. 18.Indeterminate troponin 0.062. 19.Elevated alkaline phosphatase. 20.FULL CODE. RECOMMENDATIONS AND DISCUSSION: I recommend to continue current medications, management, continue to monitor and symptomatic treatments. Otherwise, at this time, I recommend continue the current medications, continue Lasix. I would also recommend a PSA. Obtain the cultures. Continue the antibiotics. Continue the diuretics. Monitor fluid and electrolytes balance closely. I would also recommend a bone scan also. Guarded prognosis because of multiple complex medical issues. Further recommendations to follow. See orders for details. MMODL / IJN: [id number] / SAIDA
[2019-02-10 21:20] LABS: Glucose,Whole Blood 196 mg/dL (75-99)
[2019-02-10] MEDS: ASPIRIN 81 MG PO SCH (21:41)
[2019-02-10] MEDS: ATORVASTATIN 80 MG TAB PO SCH (21:41)
[2019-02-10] MEDS: MELATONIN 3 MG TABLET PO SCH (21:41)
[2019-02-11] MEDS: IPRATROPIUM-ALBUTEROL 3 ML NEB INHALATION SCH ×6 (00:35→20:44)
[2019-02-11] MEDS: INSULIN ASPART (NovoLOG) 100 UNIT/ML VIAL SQ SCH ×4 (06:05→21:17)
[2019-02-11 06:10] LABS: Glucose,Whole Blood 95 mg/dL (75-99)
[2019-02-11 06:51] LABS: Anisocytosis Slight; Basophils # (A) 0.1 k/uL (0-0.2); Basophils % (A) 1 %; Eosinophils # (A) 0.6 k/uL (0-0.7); Eosinophils % (A) 7 %; HCT 27.9 % (39.0-53.0); HGB 8.4 gm/dL (13.0-17.5); Hypochromasia Marked; Lymphocytes # (A) 0.3 k/uL (1.0-4.8); Lymphocytes % (A) 4 %; MCH 24.6 pg (25.0-35.0); MCHC 30.3 g/dL (31.0-37.0); MCV 81.2 fL (80.0-100.0); Mean Platelet Volume 7.7; Monocytes # (A) 0.7 k/uL (0-1.0); Monocytes % (A) 9 %; Neutrophils # (A) 5.7 k/uL (1.3-7.7); Neutrophils % (A) 75 %; Platelet Count 246 k/uL (150-450); Poikilocytosis Slight; RBC 3.44 m/uL (4.30-5.90); RDW 17.8 % (11.5-15.5); WBC 7.5 k/uL (3.8-10.6)
[2019-02-11 06:58] LABS: Albumin 3.1 g/dL (3.5-5.0); Calcium 8.5 mg/dL (8.4-10.2); Magnesium 2.3 mg/dL (1.6-2.3); Potassium 4.1 mmol/L (3.5-5.1); Total Bilirubin 0.5 mg/dL (0.2-1.3); Total Protein 5.9 g/dL (6.3-8.2)
[2019-02-11] MEDS: INSULIN DETEMIR (LEVEMIR) 100 UNIT/ML SYR SQ SCH (07:30)
[2019-02-11] MEDS: FUROSEMIDE 100 MG in SODIUM CHLORIDE 0.9% 90 ML IV SCH ×3 (07:36→23:50)
[2019-02-11] MEDS: PANTOPRAZOLE 40 MG TABLET PO SCH (07:36)
[2019-02-11] MEDS: ASCORBIC ACID 500 MG TAB PO SCH ×2 (07:36→17:49)
[2019-02-11 08:08] LABS: Glucose,Whole Blood 77 mg/dL (75-99)
[2019-02-11 08:08] LABS: Glucose,Whole Blood 57 mg/dL (75-99)
[2019-02-11 08:08] LABS: Glucose,Whole Blood 60 mg/dL (75-99)
[2019-02-11] MEDS: METOPROLOL TARTRATE 25 MG TAB PO SCH ×2 (08:58→17:49)
[2019-02-11] MEDS: TAMSULOSIN 0.4 MG CAP.ER.24H PO SCH ×2 (08:58→21:16)
[2019-02-11] MEDS: hydrALAZINE HCL 50 MG TAB PO SCH ×2 (08:58→21:17)
[2019-02-11] MEDS: METOLAZONE 5 MG TAB PO SCH (08:58)
[2019-02-11] MEDS: THIAMINE 100 MG TAB PO SCH (08:58)
[2019-02-11] MEDS: MULTIVITAMINS, THERA 1 EACH TAB PO SCH (08:58)
[2019-02-11] MEDS: NITROGLYCERIN OINT 1 INCH/GM PACKET TOPICAL SCH ×4 (08:58→21:17)
[2019-02-11] MEDS: APIXABAN 5 MG TAB PO SCH ×2 (08:58→21:16)
[2019-02-11] MEDS: FOLIC ACID 1 MG TAB PO SCH (08:58)
[2019-02-11] MEDS: SPIRONOLACTONE 25 MG TAB PO SCH (08:58)
[2019-02-11] MEDS: FERROUS SULFATE 325 MG TAB PO SCH (08:58)
[2019-02-11 09:07] LABS: Glucose,Whole Blood 126 mg/dL (75-99)
[2019-02-11] MEDS: SODIUM FERRIC GLUCONAT-SUCROSE 125 MG in SODIUM CHLORIDE 0.9% 100 ML IVPB SCH (09:11)
--- NOTE | 2019-02-11 10:03 | P.PN ---
Subjective Progress Note Date: 02/11/19 Principal diagnosis: Acute exacerbation of chronic systolic congestive heart failure The patient is seen today 02/11/2018 in follow-up on the selective care unit. He is currently sitting up in a chair at the bedside. Awake and alert in no acute distress. Breathing a bit easier today as compared to yesterday. Maintaining O2 saturations in the 90s on 3 L/m per nasal cannula. He is afebrile. Hemodynamically stable. Blood culture reveals no growth to date. Bilateral lower extremity wound cultures are pending. White count 7.5. Hemoglobin 8.4. Creatinine 1.92. He did have some issues with hypoglycemia earlier this morning with a blood glucose of 47. Current glucose 126. He remains on a Lasix drip at 10 mg per hour along with Aldactone and Zaroxolyn. Continue bronchodilators. Anticoagulated with Eliquis. Objective - Vital Signs Vital signs: Vital Signs Temp 98.1 F 02/11/19 04:00 Pulse 86 02/11/19 09:20 Resp 19 02/11/19 04:00 BP 113/58 02/11/19 04:00 Pulse Ox 93 L 02/11/19 04:00 Intake & Output 02/10/19 02/11/19 02/11/19 18:59 06:59 18:59 Intake Total 346 450 500 Output Total 250 2000 400 Balance 96 -1550 100 Weight 91.4 kg Intake: Intake, IV Titration 100 100 Amount Furosemide 100 mg In 100 100 Sodium Chloride 0.9% 90 ml @ 10 MG/HR 10 mls/hr IV .Q10H [facility] Rx#: [id number] Oral 246 350 500 Output: Urine 250 2000 400 Other: Voiding Method Toilet Toilet # Voids 2 2 # Bowel Movements 2 1 - Exam GENERAL EXAM: Alert, pleasant, 78-year-old male 3 L of oxygen with a pulse ox of 93% comfortable in no apparent distress. HEAD: Normocephalic/atraumatic. EYES: Normal reaction of pupils, equal size. Conjunctiva pink, sclera white. NOSE: Clear with pink turbinates. THROAT: No erythema or exudates. NECK: No masses, no JVD, no thyroid enlargement, no adenopathy. CHEST: No chest wall deformity. Symmetrical expansion. LUNGS: Equal air entry with diminished breath sounds CVS: Regular rate and rhythm, normal S1 and S2, no gallops, no murmurs, no rubs ABDOMEN: Soft, nontender. No hepatosplenomegaly, normal bowel sounds, no g uarding or rigidity. EXTREMITIES: No clubbing, 1+ lower extremity edema, no cyanosis, 2+ pulses and upper and lower extremities. MUSCULOSKELETAL: Muscle strength and tone normal. SPINE: No scoliosis or deformity SKIN: No rashes CENTRAL NERVOUS SYSTEM: No focal deficits, tone is normal in all 4 extremities. PSYCHIATRIC: Alert and oriented -3. Appropriate affect. Intact judgment and insight. - Labs CBC & Chem 7: 02/11/19 06:21 02/11/19 06:21 Labs: Abnormal Lab Results - Last 24 Hours (Table) 02/10/19 02/10/19 02/10/19 Range/Units 11:17 17:08 21:19 RBC (4.30-5.90) m/uL Hgb (13.0-17.5) gm/dL Hct (39.0-53.0) % MCH (25.0-35.0) pg MCHC (31.0-37.0) g/dL RDW (11.5-15.5) % Lymphocytes # (1.0-4.8) k/uL Chloride (98-107) mmol/L Carbon Dioxide (22-30) mmol/L BUN (9-20) mg/dL Creatinine (0.66-1.25) mg/dL Glucose (74-99) mg/dL POC Glucose (mg/dL) 136 H 191 H 196 H (75-99) mg/dL ALT (21-72) U/L Alkaline Phosphatase (38-126) U/L Total Protein (6.3-8.2) g/dL Albumin (3.5-5.0) g/dL 02/11/19 02/11/19 02/11/19 Range/Units 06:21 06:21 07:36 RBC 3.44 L (4.30-5.90) m/uL Hgb 8.4 L (13.0-17.5) gm/dL Hct 27.9 L (39.0-53.0) % MCH 24.6 L (25.0-35.0) pg MCHC 30.3 L (31.0-37.0) g/dL RDW 17.8 H (11.5-15.5) % Lymphocytes # 0.3 L (1.0-4.8) k/uL Chloride 97 L (98-107) mmol/L Carbon Dioxide 31 H (22-30) mmol/L BUN 97 H (9-20) mg/dL Creatinine 1.92 H (0.66-1.25) mg/dL Glucose 47 L* (74-99) mg/dL POC Glucose (mg/dL) 57 L (75-99) mg/dL ALT 74 H (21-72) U/L Alkaline Phosphatase 615 H (38-126) U/L Total Protein 5.9 L (6.3-8.2) g/dL Albumin 3.1 L (3.5-5.0) g/dL 02/11/19 02/11/19 Range/Units 07:50 09:05 RBC (4.30-5.90) m/uL Hgb (13.0-17.5) gm/dL Hct (39.0-53.0) % MCH (25.0-35.0) pg MCHC (31.0-37.0) g/dL RDW (11.5-15.5) % Lymphocytes # (1.0-4.8) k/uL Chloride (98-107) mmol/L Carbon Dioxide (22-30) mmol/L BUN (9-20) mg/dL Creatinine (0.66-1.25) mg/dL Glucose (74-99) mg/dL POC Glucose (mg/dL) 60 L 126 H (75-99) mg/dL ALT (21-72) U/L Alkaline Phosphatase (38-126) U/L Total Protein (6.3-8.2) g/dL Albumin (3.5-5.0) g/dL Microbiology - Last 24 Hours (Table) 02/09/19 12:46 Blood Culture - Preliminary Blood No Growth after 24 hours 02/09/19 18:30 Gram Stain - Preliminary Leg - Right Wound Culture - Preliminary 02/09/19 18:30 Gram Stain - Preliminary Leg - Left Wound Culture - Preliminary Assessment and Plan Assessment: Assessment: #1. Acute exacerbation of chronic systolic congestive heart failure with mildly impaired systolic function with ejection fraction 45-50% #2. Coronary artery disease with history of recent bypass grafting #3. History of COPD #4. Hyperlipidemia #5. Hypertension #6. Atrial flutter #7. GERD/reflux #8. Osteoarthritis #9. BPH #10. Slowly healing leg ulcerations, cultures pending. Plan: The patient was seen and evaluated by Dr. Bull. He is improved today as compared to yesterday. Continue with the current treatment plan. Increase his activity as tolerated. We'll continue to follow make further recommendations based on his clinical status. I, the cosigning physician, performed a history & physical examination of the patient. Lungs sounds with crackles in bilateral posterior bases Maintaining good O2 saturations in the 90s on 3 L/m per nasal cannula. I discussed the assessment and plan of care with my nurse practitioner, Page Cervantes. I attest to the above note as dictated by her.
--- NOTE | 2019-02-11 10:06 | P.PN ---
Subjective Patient is seen in follow-up for chronic kidney disease. Patient has chronic kidney disease stage III Baseline creatinine in the range of 1.7-2. GFR currently at baseline. Patient presented with volume overload and lower extremity edema. Currently maintained on Lasix drip. Urine output documented as 2.2 L in the last 24 hours. Weight is trending down. Patient feels better. Oral intake is good. No vomiting or diarrhea. Vital signs are stable. General: The patient appeared well nourished and normally developed. HEENT: Head exam is unremarkable. Neck is without jugular venous distension. LUNGS: Breath sounds decreased. HEART: Rate and Rhythm are regular. First and second heart sounds normal. No murmurs, rubs or gallops. ABDOMEN: Abdominal exam reveals normal bowel sounds. Non-tender and non- distended. No evidence of peritonitis. EXTREMITITES: 1+ cash. Objective - Vital Signs Vital signs: Vital Signs Temp 98.1 F 02/11/19 04:00 Pulse 86 02/11/19 09:20 Resp 19 02/11/19 04:00 BP 113/58 02/11/19 04:00 Pulse Ox 93 L 02/11/19 04:00 Intake & Output 02/10/19 02/11/19 02/11/19 18:59 06:59 18:59 Intake Total 346 450 500 Output Total 250 2000 400 Balance 96 -1550 100 Weight 91.4 kg Intake: Intake, IV Titration 100 100 Amount Furosemide 100 mg In 100 100 Sodium Chloride 0.9% 90 ml @ 10 MG/HR 10 mls/hr IV .Q10H [facility] Rx#: [id number] Oral 246 350 500 Output: Urine 250 2000 400 Other: Voiding Method Toilet Toilet # Voids 2 2 # Bowel Movements 2 1 - Labs CBC & Chem 7: 02/11/19 06:21 02/11/19 06:21 Labs: Abnormal Lab Results - Last 24 Hours (Table) 02/10/19 02/10/19 02/10/19 Range/Units 11:17 17:08 21:19 RBC (4.30-5.90) m/uL Hgb (13.0-17.5) gm/dL Hct (39.0-53.0) % MCH (25.0-35.0) pg MCHC (31.0-37.0) g/dL RDW (11.5-15.5) % Lymphocytes # (1.0-4.8) k/uL Chloride (98-107) mmol/L Carbon Dioxide (22-30) mmol/L BUN (9-20) mg/dL Creatinine (0.66-1.25) mg/dL Glucose (74-99) mg/dL POC Glucose (mg/dL) 136 H 191 H 196 H (75-99) mg/dL ALT (21-72) U/L Alkaline Phosphatase (38-126) U/L Total Protein (6.3-8.2) g/dL Albumin (3.5-5.0) g/dL 02/11/19 02/11/19 02/11/19 Range/Units 06:21 06:21 07:36 RBC 3.44 L (4.30-5.90) m/uL Hgb 8.4 L (13.0-17.5) gm/dL Hct 27.9 L (39.0-53.0) % MCH 24.6 L (25.0-35.0) pg MCHC 30.3 L (31.0-37.0) g/dL RDW 17.8 H (11.5-15.5) % Lymphocytes # 0.3 L (1.0-4.8) k/uL Chloride 97 L (98-107) mmol/L Carbon Dioxide 31 H (22-30) mmol/L BUN 97 H (9-20) mg/dL Creatinine 1.92 H (0.66-1.25) mg/dL Glucose 47 L* (74-99) mg/dL POC Glucose (mg/dL) 57 L (75-99) mg/dL ALT 74 H (21-72) U/L Alkaline Phosphatase 615 H (38-126) U/L Total Protein 5.9 L (6.3-8.2) g/dL Albumin 3.1 L (3.5-5.0) g/dL 02/11/19 02/11/19 Range/Units 07:50 09:05 RBC (4.30-5.90) m/uL Hgb (13.0-17.5) gm/dL Hct (39.0-53.0) % MCH (25.0-35.0) pg MCHC (31.0-37.0) g/dL RDW (11.5-15.5) % Lymphocytes # (1.0-4.8) k/uL Chloride (98-107) mmol/L Carbon Dioxide (22-30) mmol/L BUN (9-20) mg/dL Creatinine (0.66-1.25) mg/dL Glucose (74-99) mg/dL POC Glucose (mg/dL) 60 L 126 H (75-99) mg/dL ALT (21-72) U/L Alkaline Phosphatase (38-126) U/L Total Protein (6.3-8.2) g/dL Albumin (3.5-5.0) g/dL Microbiology - Last 24 Hours (Table) 02/09/19 12:46 Blood Culture - Preliminary Blood No Growth after 24 hours 02/09/19 18:30 Gram Stain - Preliminary Leg - Right Wound Culture - Preliminary 02/09/19 18:30 Gram Stain - Preliminary Leg - Left Wound Culture - Preliminary Assessment and Plan Plan: Assessment: 1. Chronic kidney disease stage III secondary to cardiorenal syndrome. Baseline creatinine in the range of 1.7-2 recently. Stable. 2 Volume overload. Improving. 3. Systolic CHF with ejection fraction of 45-50% with moderate aortic stenosis and pulmonary hypertension. 4. Anemia of chronic kidney disease. Iron deficiency noted. Maintained on Aranesp. 5. 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 6. Insulin-dependent diabetes mellitus. Plan: Maintain Lasix drip at 10 mL an hour. Maintain metolazone 5 mg once daily. Low-salt diet and 1500 mL fluid restriction. IV iron 3 doses. Second dose today. Repeat electrolytes in the morning.
--- NOTE | 2019-02-11 12:19 | NM ---
EXAMINATION TYPE: NM bone scan whole body DATE OF EXAM: 02/11/2019 COMPARISON: NONE HISTORY: High alkaline phosphatase. Delayed whole-body scanning was performed following the injection of 23.1 mCi Tc 99m MDP. Images acq uired 4 hours post injection. FINDINGS: There is degenerative first MTP joints of both feet. There is mild increased activity in th e AC joints bilaterally. There is no convincing evidence of metastases. IMPRESSION: . NO CONVINCING SCINTIGRAPHIC EVIDENCE OF METASTASES.
[2019-02-11 12:20] LABS: Glucose,Whole Blood 141 mg/dL (75-99)
--- NOTE | 2019-02-11 13:57 | P.PN ---
Subjective Progress Note Date: 02/11/19 This is a 78-year-old gentleman with history of coronary artery bypass grafting surgery back in December, subsequent to that he was transferred to [facility] with an infection in his leg, he did undergo a thoracentesis also at that time. Patient continues to have issues with fluid in his lungs and fluid in his legs, he has gained approximately 14 pounds of weight and can only walk short distances, without being very short of breath. The patient is currently on IV Lasix drip, his weight is down 1 kg today overall through the night last night he states that he put out a significant amount of urine. Let pressure 132/70 with a heart rate in the 80s, 94% on 3 L of oxygen. Objective - Vital Signs Vital signs: Vital Signs Temp 98.3 F 02/11/19 12:00 Pulse 87 02/11/19 12:00 Resp 18 02/11/19 12:00 BP 133/73 02/11/19 12:00 Pulse Ox 94 L 02/11/19 12:00 Intake & Output 02/10/19 02/11/19 02/11/19 18:59 06:59 18:59 Intake Total 346 450 500 Output Total 250 2000 400 Balance 96 -1550 100 Weight 91.4 kg Intake: Intake, IV Titration 100 100 Amount Furosemide 100 mg In 100 100 Sodium Chloride 0.9% 90 ml @ 10 MG/HR 10 mls/hr IV .Q10H [facility] Rx#: [id number] Oral 246 350 500 Output: Urine 250 2000 400 Other: Voiding Method Toilet Toilet # Voids 2 2 # Bowel Movements 2 1 - Exam GENERAL EXAM: Alert, pleasant, 78-year-old male 3 L of oxygen with a pulse ox o f 93% comfortable in no apparent distress. HEAD: Normocephalic/atraumatic. EYES: Normal reaction of pupils, equal size. Conjunctiva pink, sclera white. NOSE: Clear with pink turbinates. THROAT: No erythema or exudates. NECK: No masses, no JVD, no thyroid enlargement, no adenopathy. CHEST: No chest wall deformity. Symmetrical expansion. LUNGS: Equal air entry with diminished breath sounds CVS: Regular rate and rhythm, normal S1 and S2, no gallops, no murmurs, no rubs ABDOMEN: Soft, nontender. No hepatosplenomegaly, normal bowel sounds, no guarding or rigidity. EXTREMITIES: No clubbing, 1+ lower extremity edema, no cyanosis, 2+ pulses and upper and lower extremities. MUSCULOSKELETAL: Muscle strength and tone normal. SPINE: No scoliosis or deformity SKIN: No rashes CENTRAL NERVOUS SYSTEM: No focal deficits, tone is normal in all 4 extremities. PSYCHIATRIC: Alert and oriented -3. Appropriate affect. Intact judgment and insight. - Labs CBC & Chem 7: 02/11/19 06:21 02/11/19 06:21 Labs: Abnormal Lab Results - Last 24 Hours (Table) 02/10/19 02/10/19 02/11/19 Range/Units 17:08 21:19 06:21 RBC 3.44 L (4.30-5.90) m/uL Hgb 8.4 L (13.0-17.5) gm/dL Hct 27.9 L (39.0-53.0) % MCH 24.6 L (25.0-35.0) pg MCHC 30.3 L (31.0-37.0) g/dL RDW 17.8 H (11.5-15.5) % Lymphocytes # 0.3 L (1.0-4.8) k/uL Chloride (98-107) mmol/L Carbon Dioxide (22-30) mmol/L BUN (9-20) mg/dL Creatinine (0.66-1.25) mg/dL Glucose (74-99) mg/dL POC Glucose (mg/dL) 191 H 196 H (75-99) mg/dL ALT (21-72) U/L Alkaline Phosphatase (38-126) U/L Total Protein (6.3-8.2) g/dL Albumin (3.5-5.0) g/dL 02/11/19 02/11/19 02/11/19 Range/Units 06:21 07:36 07:50 RBC (4.30-5.90) m/uL Hgb (13.0-17.5) gm/dL Hct (39.0-53.0) % MCH (25.0-35.0) pg MCHC (31.0-37.0) g/dL RDW (11.5-15.5) % Lymphocytes # (1.0-4.8) k/uL Chloride 97 L (98-107) mmol/L Carbon Dioxide 31 H (22-30) mmol/L BUN 97 H (9-20) mg/dL Creatinine 1.92 H (0.66-1.25) mg/dL Glucose 47 L* (74-99) mg/dL POC Glucose (mg/dL) 57 L 60 L (75-99) mg/dL ALT 74 H (21-72) U/L Alkaline Phosphatase 615 H (38-126) U/L Total Protein 5.9 L (6.3-8.2) g/dL Albumin 3.1 L (3.5-5.0) g/dL 02/11/19 02/11/19 Range/Units 09:05 12:18 RBC (4.30-5.90) m/uL Hgb (13.0-17.5) gm/dL Hct (39.0-53.0) % MCH (25.0-35.0) pg MCHC (31.0-37.0) g/dL RDW (11.5-15.5) % Lymphocytes # (1.0-4.8) k/uL Chloride (98-107) mmol/L Carbon Dioxide (22-30) mmol/L BUN (9-20) mg/dL Creatinine (0.66-1.25) mg/dL Glucose (74-99) mg/dL POC Glucose (mg/dL) 126 H 141 H (75-99) mg/dL ALT (21-72) U/L Alkaline Phosphatase (38-126) U/L Total Protein (6.3-8.2) g/dL Albumin (3.5-5.0) g/dL Microbiology - Last 24 Hours (Table) 02/09/19 12:46 Blood Culture - Preliminary Blood No Growth after 24 hours Assessment and Plan Plan: Assessment: #1. Acute exacerbation of chronic systolic congestive heart failure with mildly impaired systolic function with ejection fraction 45-50% #2. Coronary artery disease with history of recent bypass grafting #3. History of COPD #4. Hyperlipidemia #5. Hypertension #6. Atrial flutter #7. GERD/reflux #8. Osteoarthritis #9. BPH #10. Slowly healing leg ulcerations, cultures pending. Plan From cardiology's perspective, we'll continue Lasix drip at current dose, continue to monitor the intake and output along with daily weights and daily lytes BUN and creatinine. DNP note has been reviewed, I agree with a documented findings and plan of care. Patient was seen and examined.
[2019-02-11 14:38] LABS: Calcium 9.1 mg/dL (8.4-10.2); Potassium 5.3 mmol/L (3.5-5.1)
[2019-02-11 17:15] LABS: Glucose,Whole Blood 186 mg/dL (75-99)
[2019-02-11 20:00] LABS: Glucose,Whole Blood 216 mg/dL (75-99)
--- NOTE | 2019-02-11 20:52 | PN ---
PROGRESS NOTE DATE OF SERVICE: 02/11/2019. This 78-year-old gentleman who was admitted with CHF acute exacerbation with acute on chronic systolic and diastolic dysfunction, also had multiple other medical issues including possibly a bone sclerotic lesion. The bone scan which did not show any acute abnormality, but no convincing evidence but alkaline phosphatase is elevated and vitamin D levels are also normal. The phosphorus is elevated. Calcium is slightly low. PAST MEDICAL HISTORY: Reviewed. REVIEW OF SYSTEMS: CARDIOVASCULAR: No angina. RESPIRATORY: As mentioned earlier. GI: As mentioned. : No dysuria. NERVOUS SYSTEM: No numbness. CURRENT MEDICATIONS: Reviewed and include: 1. Tylenol 500 mg q.6 p.r.n. 2. DuoNeb q.i.d. 3. Eliquis 5 mg b.i.d. 4. Vitamin C 500 mg b.i.d. 5. Aspirin 81 mg. 6. Lipitor 80 mg. 7. Dulcolax. 9. Iron sulfate 325 mg. 10.Folic acid 1 mg. 11.Lasix drip. 12.Omeprazole in 50 mg p.o. b.i.d. 13.NovoLog a.c. and at bedtime. 14.Levemir 5 units subcu q.h.s. 15.Levemir 12 units subcu daily. 16.Milk of magnesia. 17.Melatonin 3 mg q.h.s. 18.Zaroxolyn 5 mg p.o. daily. 19.Lopressor 25 mg p.o. b.i.d. 20.Multivitamin 1 p.o. 21.Nitro-Bid ointment. 22.Protonix 40 mg b.i.d. 23.Aldactone 25 mg. 24.Flomax 0.5 b.i.d. 25.Vitamin B 100 mg p.o. daily. PHYSICAL EXAM: Patient is alert, oriented x3. Pulse 87, blood pressure 130/70, respiration 18, temperature 98.2, pulse ox 94% on 3 L. HEENT: Conjunctivae normal. NECK: No jugular venous distention. CARDIOVASCULAR: S1, S2. RESPIRATORY: Breath sounds diminished in the bases. scattered rhonchi and crackles. ABDOMEN: Soft, nontender. No mass palpable. LEGS: No edema, no swelling. NERVOUS SYSTEM: Higher function as mentioned, moves all four limbs. No focal deficits. LYMPHATICS: No lymphadenopathy in the neck, axillae, groin. SKIN: No rashes, ulcer, bleeding. JOINTS: No active deforming arthropathy. LAB STUDIES: WBC 7, hemoglobin is 8.4, BUN is 109, creatinine is 1.83. ASSESSMENT: 1. Congestive heart failure acute exacerbation with acute on chronic systolic and diastolic dysfunction ejection fraction 40-50 percent. 2. Persistent atrial flutter fibrillation. 3. Bilateral lower extremity edema, ulcerations from chronic kidney stage III. 4. Possible bone sclerotic lesions rule out mets. 5. Increased alkaline phosphatase, undetermined etiology. 6. History of coronary artery disease, CABG. 7. History of congestive heart failure. 8. History of atrial flutter. 9. History of diabetes mellitus type 2. 10.Gastroesophageal reflux disease. 11.Hypertension. 12.Hyperlipidemia. 13.Myocardial infarction. 14.History of degenerative joint disease. 15.History of prostate disorder. 16.History of coronary artery disease, CABG, stent. 17.Remote history of nicotine dependence. 18.Indeterminate troponin 0.062. 19.FULL CODE. RECOMMENDATIONS AND DISCUSSION: I recommend to continue current management and symptomatic treatment. The patient is currently on insulin and Lasix drip at this time. Otherwise PSA has been ordered. We will monitor the creatinine closely. I will also recommend hematology oncology consultation to rule out the possibility of any metastatic lesions. Otherwise, guarded prognosis because of multiple complex medical issues. Further recommendations to follow. MMODL / DONALD: [id number] / [id number]
[2019-02-11] MEDS: ASPIRIN 81 MG PO SCH (21:16)
[2019-02-11] MEDS: ATORVASTATIN 80 MG TAB PO SCH (21:16)
[2019-02-11] MEDS: MELATONIN 3 MG TABLET PO SCH (21:16)
[2019-02-12] MEDS: IPRATROPIUM-ALBUTEROL 3 ML NEB INHALATION SCH ×7 (01:05→23:54)
[2019-02-12 06:34] LABS: Anisocytosis Slight; Basophils # (A) 0.1 k/uL (0-0.2); Basophils % (A) 1 %; Eosinophils # (A) 0.6 k/uL (0-0.7); Eosinophils % (A) 8 %; HCT 27.7 % (39.0-53.0); HGB 8.4 gm/dL (13.0-17.5); Hypochromasia Marked; Lymphocytes # (A) 0.5 k/uL (1.0-4.8); Lymphocytes % (A) 7 %; MCH 24.3 pg (25.0-35.0); MCHC 30.3 g/dL (31.0-37.0); Mean Platelet Volume 7.5; Monocytes # (A) 0.7 k/uL (0-1.0); Monocytes % (A) 9 %; Neutrophils # (A) 5.5 k/uL (1.3-7.7); Neutrophils % (A) 71 %; Platelet Count 241 k/uL (150-450); Poikilocytosis Slight; RBC 3.47 m/uL (4.30-5.90); RDW 17.4 % (11.5-15.5); WBC 7.7 k/uL (3.8-10.6)
[2019-02-12 06:51] LABS: Albumin 3.2 g/dL (3.5-5.0); Calcium 8.7 mg/dL (8.4-10.2); Magnesium 2.3 mg/dL (1.6-2.3); Potassium 4.7 mmol/L (3.5-5.1); Total Bilirubin 0.6 mg/dL (0.2-1.3); Total Protein 6.1 g/dL (6.3-8.2)
[2019-02-12 06:54] LABS: Glucose,Whole Blood 129 mg/dL (75-99)
[2019-02-12] MEDS: INSULIN ASPART (NovoLOG) 100 UNIT/ML VIAL SQ SCH ×4 (07:02→21:50)
[2019-02-12] MEDS: PANTOPRAZOLE 40 MG TABLET PO SCH (07:10)
[2019-02-12] MEDS: ASCORBIC ACID 500 MG TAB PO SCH ×2 (07:10→17:29)
[2019-02-12] MEDS: INSULIN DETEMIR (LEVEMIR) 100 UNIT/ML SYR SQ SCH (07:11)
[2019-02-12] MEDS: METOPROLOL TARTRATE 25 MG TAB PO SCH ×2 (08:22→17:29)
[2019-02-12] MEDS: FOLIC ACID 1 MG TAB PO SCH (08:22)
[2019-02-12] MEDS: hydrALAZINE HCL 50 MG TAB PO SCH ×2 (08:22→21:50)
[2019-02-12] MEDS: APIXABAN 5 MG TAB PO SCH ×2 (08:23→21:50)
[2019-02-12] MEDS: SPIRONOLACTONE 25 MG TAB PO SCH (08:23)
[2019-02-12] MEDS: METOLAZONE 5 MG TAB PO SCH (08:23)
[2019-02-12] MEDS: FERROUS SULFATE 325 MG TAB PO SCH (08:23)
[2019-02-12] MEDS: TAMSULOSIN 0.4 MG CAP.ER.24H PO SCH ×2 (08:23→21:50)
[2019-02-12] MEDS: NITROGLYCERIN OINT 1 INCH/GM PACKET TOPICAL SCH ×4 (08:23→21:51)
[2019-02-12] MEDS: THIAMINE 100 MG TAB PO SCH (08:23)
[2019-02-12] MEDS: MULTIVITAMINS, THERA 1 EACH TAB PO SCH (08:23)
[2019-02-12] MEDS: SODIUM FERRIC GLUCONAT-SUCROSE 125 MG in SODIUM CHLORIDE 0.9% 100 ML IVPB SCH (10:27)
--- NOTE | 2019-02-12 10:55 | P.PN ---
Subjective Patient is seen in follow-up for chronic kidney disease. Patient has chronic kidney disease stage III Baseline creatinine in the range of 1.7-2. Renal function is worse today which is due to diuresis. Patient presented with volume overload and lower extremity edema. Currently maintained on Lasix drip. Urine output documented as 4.4 L in the last 24 hours. Weight is trending down. Patient feels better. Oral intake is good. No vomiting or diarrhea. Still feels quite edematous. Vital signs are stable. General: The patient appeared well nourished and normally developed. HEENT: Head exam is unremarkable. Neck is without jugular venous distension. LUNGS: Breath sounds decreased. HEART: Rate and Rhythm are regular. First and second heart sounds normal. No murmurs, rubs or gallops. ABDOMEN: Abdominal exam reveals normal bowel sounds. Non-tender and non- distended. No evidence of peritonitis. EXTREMITITES: 1+ cash. Objective - Vital Signs Vital signs: Vital Signs Temp 97.7 F 02/12/19 08:00 Pulse 86 02/12/19 08:45 Resp 20 02/12/19 08:00 BP 111/65 02/12/19 08:00 Pulse Ox 94 L 02/12/19 08:00 Intake & Output 02/11/19 02/12/19 02/12/19 18:59 06:59 18:59 Intake Total 700 300.167 Output Total 1800 2600 Balance -1100 -2299.833 Weight 90.2 kg Intake: Intake, IV Titration 200 60.167 Amount Furosemide 100 mg In 100 60.167 Sodium Chloride 0.9% 90 ml @ 10 MG/HR 10 mls/hr IV .Q10H [facility] Rx#: [id number] Sodium Ferric Gluconat- 100 Sucrose 125 mg In Sodium Chloride 0.9% 100 ml @ 100 mls/hr IVPB DAILY [facility] Rx#:[id number] Oral 500 240 Output: Urine 1800 2600 Other: Voiding Method Toilet Toilet # Voids 0 400 # Bowel Movements 1 1 - Labs CBC & Chem 7: 02/12/19 05:48 02/12/19 05:48 Labs: Abnormal Lab Results - Last 24 Hours (Table) 02/11/19 02/11/19 02/11/19 Range/Units 12:18 14:02 16:53 RBC (4.30-5.90) m/uL Hgb (13.0-17.5) gm/dL Hct (39.0-53.0) % MCH (25.0-35.0) pg MCHC (31.0-37.0) g/dL RDW (11.5-15.5) % Lymphocytes # (1.0-4.8) k/uL Sodium (137-145) mmol/L Potassium 5.3 H (3.5-5.1) mmol/L Chloride 97 L (98-107) mmol/L Carbon Dioxide (22-30) mmol/L BUN 109 H* (9-20) mg/dL Creatinine 1.83 H (0.66-1.25) mg/dL Glucose 136 H (74-99) mg/dL POC Glucose (mg/dL) 141 H 186 H (75-99) mg/dL Alkaline Phosphatase (38-126) U/L Total Protein (6.3-8.2) g/dL Albumin (3.5-5.0) g/dL 02/11/19 02/12/19 02/12/19 Range/Units 19:59 05:48 05:48 RBC 3.47 L (4.30-5.90) m/uL Hgb 8.4 L (13.0-17.5) gm/dL Hct 27.7 L (39.0-53.0) % MCH 24.3 L (25.0-35.0) pg MCHC 30.3 L (31.0-37.0) g/dL RDW 17.4 H (11.5-15.5) % Lymphocytes # 0.5 L (1.0-4.8) k/uL Sodium 136 L (137-145) mmol/L Potassium (3.5-5.1) mmol/L Chloride 93 L (98-107) mmol/L Carbon Dioxide 36 H (22-30) mmol/L BUN 112 H* (9-20) mg/dL Creatinine 2.05 H (0.66-1.25) mg/dL Glucose (74-99) mg/dL POC Glucose (mg/dL) 216 H (75-99) mg/dL Alkaline Phosphatase 589 H (38-126) U/L Total Protein 6.1 L (6.3-8.2) g/dL Albumin 3.2 L (3.5-5.0) g/dL 02/12/19 Range/Units 06:52 RBC (4.30-5.90) m/uL Hgb (13.0-17.5) gm/dL Hct (39.0-53.0) % MCH (25.0-35.0) pg MCHC (31.0-37.0) g/dL RDW (11.5-15.5) % Lymphocytes # (1.0-4.8) k/uL Sodium (137-145) mmol/L Potassium (3.5-5.1) mmol/L Chloride (98-107) mmol/L Carbon Dioxide (22-30) mmol/L BUN (9-20) mg/dL Creatinine (0.66-1.25) mg/dL Glucose (74-99) mg/dL POC Glucose (mg/dL) 129 H (75-99) mg/dL Alkaline Phosphatase (38-126) U/L Total Protein (6.3-8.2) g/dL Albumin (3.5-5.0) g/dL Microbiology - Last 24 Hours (Table) 02/09/19 18:30 Gram Stain - Final Leg - Right Wound Culture - Final 02/09/19 18:30 Gram Stain - Final Leg - Left Wound Culture - Final 02/09/19 12:46 Blood Culture - Preliminary Blood No Growth after 48 hours Assessment and Plan Plan: Assessment: 1. Chronic kidney disease stage III secondary to cardiorenal syndrome. Baseline creatinine in the range of 1.7-2 recently. Renal function worse today which is due to diuresis. Creatinine 2.04 today. 2 Volume overload. Improving. 3. Systolic CHF with ejection fraction of 45-50% with moderate aortic stenosis and pulmonary hypertension. 4. Anemia of chronic kidney disease. Iron deficiency noted. Maintained on Giovanna nesp. 5. 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 6. Insulin-dependent diabetes mellitus. Plan: Maintain Lasix drip at 10 mL an hour - can likely be changed over to IV push Lasix tomorrow. Maintain metolazone 5 mg once daily. Low-salt diet and 1500 mL fluid restriction. IV iron 3 doses. Third dose today. Repeat electrolytes in the morning.
[2019-02-12 12:15] LABS: Glucose,Whole Blood 197 mg/dL (75-99)
[2019-02-12] MEDS: FUROSEMIDE 100 MG in SODIUM CHLORIDE 0.9% 90 ML IV SCH ×2 (12:44→23:00)
--- NOTE | 2019-02-12 14:36 | P.PN ---
Progress Note - Text Progress Note Date: 02/12/19 Consult was placed for evaluation of pelvic bone lesions. Initial imaging indicated that benign etiology such as bone islands was more likely. Bone scan was negative in these areas. There for further evaluation in this regard is indicated at this time. The patient does have anemia, but this has been present only since his CABG, with subsequent cellulitis, and renal failure, as the most likely reason. It was therefore discussed with the admitting service that inpatient consult was likely not required. Would recommend follow-up in the outpatient setting in about 4-6 weeks for the anemia.
--- NOTE | 2019-02-12 15:48 | P.PN ---
Subjective Progress Note Date: 02/12/19 This 78-year-old gentleman with history of chronic kidney disease was admitted to the hospital with increasing shortness of breath and evidence of congestive heart failure. Patient has been IV Lasix. Patient had about 4.4 L output over the last 24 hours. Patient is feeling better. Patient still has significant edema. We'll continue current medical therapy. We'll follow the recommendation of the nicker and breaker regarding diuretic usage. We'll continue IV Lasix drip. Today and possible change to IV push tomorrow. Patient is also on metolazone. We'll follow electrolytes Objective - Vital Signs Vital signs: Vital Signs Temp 97.4 F L 02/12/19 15:21 Pulse 86 02/12/19 15:37 Resp 18 02/12/19 15:21 BP 110/63 02/12/19 15:21 Pulse Ox 96 02/12/19 15:21 Intake & Output 02/11/19 02/12/19 02/12/19 18:59 06:59 18:59 Intake Total 700 300.167 100 Output Total 1800 2600 300 Balance -1100 -2299.833 -200 Weight 90.2 kg Intake: Intake, IV Titration 200 60.167 100 Amount Furosemide 100 mg In 100 60.167 100 Sodium Chloride 0.9% 90 ml @ 10 MG/HR 10 mls/hr IV .Q10H [facility] Rx#: [id number] Sodium Ferric Gluconat- 100 Sucrose 125 mg In Sodium Chloride 0.9% 100 ml @ 100 mls/hr IVPB DAILY [facility] Rx#:[id number] Oral 500 240 Output: Urine 1800 2600 300 Other: Voiding Method Toilet Toilet # Voids 0 400 # Bowel Movements 1 1 1 - Exam GENERAL EXAM: Patient is alert and oriented and doesn't appear to be in any acute distress HEENT: Normocephalic. Normal reaction of pupils, equal size, normal range of extraocular motion. No erythema or exudates in the throat. NECK: No masses, no nuchal rigidity. CHEST: No chest wall deformity. LUNGS:. Excellent defaults HEART: S1 and S2 normal with no audible mumurs or gallops. Regular rhythm, femorals equal on both sides.. ABDOMEN: No hepatosplenomegaly, normal bowel sounds, no guarding or rigidity. SKIN: No rashes CENTRAL NERVOUS SYSTEM: No focal deficits. EXTREMITIES: Resolving edema - Labs CBC & Chem 7: 02/12/19 05:48 02/12/19 05:48 Labs: Abnormal Lab Results - Last 24 Hours (Table) 02/11/19 02/11/19 02/12/19 Range/Units 16:53 19:59 05:48 RBC 3.47 L (4.30-5.90) m/uL Hgb 8.4 L (13.0-17.5) gm/dL Hct 27.7 L (39.0-53.0) % MCH 24.3 L (25.0-35.0) pg MCHC 30.3 L (31.0-37.0) g/dL RDW 17.4 H (11.5-15.5) % Lymphocytes # 0.5 L (1.0-4.8) k/uL Sodium (137-145) mmol/L Chloride (98-107) mmol/L Carbon Dioxide (22-30) mmol/L BUN (9-20) mg/dL Creatinine (0.66-1.25) mg/dL POC Glucose (mg/dL) 186 H 216 H (75-99) mg/dL Alkaline Phosphatase (38-126) U/L Total Protein (6.3-8.2) g/dL Albumin (3.5-5.0) g/dL 02/12/19 02/12/19 02/12/19 Range/Units 05:48 06:52 12:01 RBC (4.30-5.90) m/uL Hgb (13.0-17.5) gm/dL Hct (39.0-53.0) % MCH (25.0-35.0) pg MCHC (31.0-37.0) g/dL RDW (11.5-15.5) % Lymphocytes # (1.0-4.8) k/uL Sodium 136 L (137-145) mmol/L Chloride 93 L (98-107) mmol/L Carbon Dioxide 36 H (22-30) mmol/L BUN 112 H* (9-20) mg/dL Creatinine 2.05 H (0.66-1.25) mg/dL POC Glucose (mg/dL) 129 H 197 H (75-99) mg/dL Alkaline Phosphatase 589 H (38-126) U/L Total Protein 6.1 L (6.3-8.2) g/dL Albumin 3.2 L (3.5-5.0) g/dL Microbiology - Last 24 Hours (Table) 02/09/19 12:46 Blood Culture - Preliminary Blood No Growth after 72 hours 02/09/19 18:30 Gram Stain - Final Leg - Right Wound Culture - Final 02/09/19 18:30 Gram Stain - Final Leg - Left Wound Culture - Final Assessment and Plan Plan: Continue with current treatment of IV Lasix drip. Follow elect lites closely. May change to IV Lasix push from tomorrow
[2019-02-12 17:26] LABS: Glucose,Whole Blood 235 mg/dL (75-99)
--- NOTE | 2019-02-12 18:03 | PN ---
PROGRESS NOTE DATE OF SERVICE: 02/12/2019 This a 78-year-old male who was admitted back on February 08. The patient has a history of acute exacerbation of chronic systolic heart failure. The patient also has a history of recent bypass grafting for CAD, underlying COPD, hyperlipidemia, hypertension, atrial flutter, GERD, osteoarthritis, BPH, and slowly healing leg ulceration. The patient is doing a bit better. He is up in chair. He still has nasal O2. He states that his swelling is improved and his weight is down. Today we talked about what he should and should not be eating. He apparently goes home and does not really follow a good diet. He does not follow his weight on a daily basis. The heart failure seems to get out of control for that reason. He denies any chest pain or chest discomfort. Denies any cough or phlegm production. There are no fever or chills. PHYSICAL EXAMINATION: Current vital signs are reviewed. Temperature 97.4, heart rate 86, respiratory rate 18, blood pressure 110/63, mean 78, 3 L saturation 96%. Appears in no acute distress. Sitting up in a chair. HEENT examination is grossly unremarkable. Mucous membranes are moist. Nasal O2 noted. NECK: Supple. Full range of motion. No adenopathy. Neck veins are flat. CARDIOVASCULAR examination reveals regular rhythm rate. Heart rate 86. S1, S2 normal. No distinct murmur noted. LUNGS: Reveal some bibasilar crackles. Breath sounds are improved. No rhonchi or wheezes. Breath sounds are diminished. ABDOMEN: Soft. Bowel sounds are heard. EXTREMITIES reveal some edema. His legs are wrapped. There are some chronic venous stasis changes as well. SKIN: Without rash. NEUROLOGIC examination is brief but nonfocal. LABORATORY DATA: White count 7.7, hemoglobin 8.4, hematocrit 27.7, platelet count 241,000. Sodium 136, potassium 4.7, chloride 93, CO2 of 36, anion gap 7. BUN and creatinine were 112 and 2.05. The rest of his labs are reviewed. The patient had bone scan on February 11. It shows no convincing evidence of metastasis. Microbiologic studies are negative or pending. Medications are reviewed. ASSESSMENT: 1. Acute exacerbation of chronic systolic heart failure with a mildly impaired ejection fraction of 45-50 percent. 2. Coronary artery disease, status post recent bypass grafting. 3. History of chronic obstructive pulmonary disease. 4. Hyperlipidemia. 5. Benign essential hypertension. 6. History of atrial flutter. 7. Gastroesophageal reflux disease. 8. Osteoarthritis. 9. Benign prostatic hypertrophy. 10.Slowly healing leg ulceration. 11.Chronic lower extremity edema. PLAN: The patient's labs, x-rays and medications are reviewed. He seems to be doing better. Microbiologic studies are negative or pending. Medications are reviewed. Additional recommendations and suggestions are forthcoming. I do recommend that the patient have significant dietary consultations so they can avoid those things which are causing him to develop heart failure. In addition, he needs to be weighing on a regular and daily basis. Medications are reviewed. No changes were made. MMODL / IJN: [id number] / SAIDA
--- NOTE | 2019-02-12 19:30 | PN ---
PROGRESS NOTE DATE OF SERVICE: 02/12/2019 This 78-year-old gentleman who was admitted with CHF acute exacerbation, is on IV Lasix drip at this time. No chest pain. No palpitations. No fever. The patient also had bone lesion and a increased alkaline phosphatase. There is no evidence of metastasis or malignancy at this time per Dr. Mills. EXAM: Alert and oriented x3. Pulse 85, blood pressure 107/65, respiration 18, temperature normal, pulse ox 90% on 3 L. HEENT: Conjunctivae normal. NECK: No jugular venous distention. CARDIOVASCULAR: S1, S2 muffled. RESPIRATORY: Breath sounds diminished in the bases. A few scattered rhonchi and crackles. ABDOMEN: Soft, nontender. No mass palpable. LEGS: No edema. No swelling. NERVOUS SYSTEM: No focal deficits. LABS: WBC 7.2, hemoglobin is 8.4, creatinine is 2.05. ASSESSMENT: 1. Congestive heart failure acute exacerbation with acute on chronic systolic and diastolic dysfunction, ejection fraction 40-50 percent. 2. Persistent atrial flutter fibrillation. 3. Bilateral lower extremity edema and ulcerations from chronic ulcerations. 4. Chronic kidney disease stage III. 5. Possible bone sclerotic lesions. No evidence of metastasis or malignancy at this time per Dr. Mills. 6. Increased alkaline phosphatase of undetermined etiology. 7. History of coronary artery disease, CABG. 8. History of congestive heart failure. 9. History atrial flutter. 10.History of diabetes mellitus type 2. 11.Gastroesophageal reflux disease. 12.Hypertension. 13.Hyperlipidemia. 14.History of myocardial infarction. 15.History of degenerative joint disease. 16.History of prostate disorder. 17.History of coronary artery disease, , CABG, stent. 18.Remote history of nicotine dependence. 19.Indeterminate troponin 0.062. 20.FULL CODE. RECOMMENDATIONS AND DISCUSSION: I recommend to continue current medications, monitoring, symptomatic treatment. At this time I would recommend continue with repeat labs. Otherwise continue with current medications. Continue with Lasix drip. Also when Lasix drip is stopped and okayed with Cardiology, the patient will be ready for ECF rehab the next 24-48 hours possibly. Further recommendations to follow. MMODL / IJN: [id number] /
[2019-02-12 20:43] LABS: Glucose,Whole Blood 199 mg/dL (75-99)
[2019-02-12] MEDS: ATORVASTATIN 80 MG TAB PO SCH (21:50)
[2019-02-12] MEDS: ASPIRIN 81 MG PO SCH (21:50)
[2019-02-12] MEDS: MELATONIN 3 MG TABLET PO SCH (21:50)
[2019-02-13] MEDS: IPRATROPIUM-ALBUTEROL 3 ML NEB INHALATION SCH ×6 (03:42→23:42)
[2019-02-13 05:44] LABS: Glucose,Whole Blood 99 mg/dL (75-99)
[2019-02-13] MEDS: INSULIN ASPART (NovoLOG) 100 UNIT/ML VIAL SQ SCH ×4 (06:13→21:37)
[2019-02-13] MEDS: ASCORBIC ACID 500 MG TAB PO SCH ×2 (06:40→17:29)
[2019-02-13] MEDS: PANTOPRAZOLE 40 MG TABLET PO SCH (06:40)
[2019-02-13 07:20] LABS: Anisocytosis Slight; Basophils % (A) 1 %; Eosinophils # (A) 0.6 k/uL (0-0.7); Eosinophils % (A) 9 %; HCT 27.7 % (39.0-53.0); HGB 8.3 gm/dL (13.0-17.5); Hypochromasia Marked; Lymphocytes # (A) 0.4 k/uL (1.0-4.8); Lymphocytes % (A) 7 %; MCH 24.2 pg (25.0-35.0); MCHC 30.2 g/dL (31.0-37.0); MCV 80.2 fL (80.0-100.0); Mean Platelet Volume 7.9; Monocytes # (A) 0.6 k/uL (0-1.0); Monocytes % (A) 9 %; Neutrophils # (A) 4.6 k/uL (1.3-7.7); Neutrophils % (A) 71 %; Platelet Count 246 k/uL (150-450); RBC 3.45 m/uL (4.30-5.90); WBC 6.6 k/uL (3.8-10.6)
[2019-02-13 07:34] LABS: Albumin 3.2 g/dL (3.5-5.0); Potassium 4.5 mmol/L (3.5-5.1); Total Protein 5.9 g/dL (6.3-8.2)
[2019-02-13 07:38] LABS: Calcium 8.6 mg/dL (8.4-10.2); Magnesium 2.3 mg/dL (1.6-2.3); Total Bilirubin 0.6 mg/dL (0.2-1.3)
[2019-02-13] MEDS: FUROSEMIDE 100 MG in SODIUM CHLORIDE 0.9% 90 ML IV SCH (08:38)
[2019-02-13] MEDS: NITROGLYCERIN OINT 1 INCH/GM PACKET TOPICAL SCH ×4 (09:11→21:36)
[2019-02-13] MEDS: METOPROLOL TARTRATE 25 MG TAB PO SCH ×2 (09:12→17:29)
[2019-02-13] MEDS: METOLAZONE 5 MG TAB PO SCH (09:12)
[2019-02-13] MEDS: SODIUM FERRIC GLUCONAT-SUCROSE 125 MG in SODIUM CHLORIDE 0.9% 100 ML IVPB SCH (09:12)
[2019-02-13] MEDS: APIXABAN 5 MG TAB PO SCH ×2 (09:12→21:36)
[2019-02-13] MEDS: FERROUS SULFATE 325 MG TAB PO SCH (09:12)
[2019-02-13] MEDS: TAMSULOSIN 0.4 MG CAP.ER.24H PO SCH ×2 (09:12→21:41)
[2019-02-13] MEDS: INSULIN DETEMIR (LEVEMIR) 100 UNIT/ML SYR SQ SCH (09:12)
[2019-02-13 10:47] LABS: Glucose,Whole Blood 208 mg/dL (75-99)
[2019-02-13] MEDS: hydrALAZINE HCL 50 MG TAB PO SCH (10:47)
[2019-02-13] MEDS: SPIRONOLACTONE 25 MG TAB PO SCH (10:47)
[2019-02-13 11:49] LABS: Glucose,Whole Blood 205 mg/dL (75-99)
[2019-02-13] MEDS: FOLIC ACID 1 MG TAB PO SCH (12:42)
[2019-02-13] MEDS: THIAMINE 100 MG TAB PO SCH (12:42)
[2019-02-13] MEDS: MULTIVITAMINS, THERA 1 EACH TAB PO SCH (12:42)
--- NOTE | 2019-02-13 14:09 | P.PN ---
Subjective This is a pleasant 78 years old male with past medical history of heart failure, atrial fibrillation, coronary artery disease, type 2 diabetes mellitus, GERD, hyperlipidemia, hypertension,bilateral venous stasis dermatitis, chronic kidney disease stage III. Who presents with signs and symptoms of acute congestive heart failure and elevated troponin. His been able with it by truck manager and was started on Lasix drip. On admission also his creatinine was 1.8/2.0. Human Capital Manager recommended patient follow-up as an outpatient in 4-5 weeks for anemia and bone lesion. Today patient was more lethargic and sleepy however he is fully awake once been called his name. His dyspnea is improving with no chest pain. He has dry cough. No abdominal complaints or tenderness. No nausea vomiting and he starting diet well. No diarrhea. And no right upper quadrant pain or tenderness, negative Ag sign. Parenteral Lasix 60 mg 3 times a day. With indirect this is stable and his creatinine today is 2.17, sugar is controlled. Liver enzymes elevated. Objective - Vital Signs Vital signs: Vital Signs Temp 97.6 F 02/13/19 12:00 Pulse 84 02/13/19 12:10 Resp 16 02/13/19 12:00 BP 113/64 02/13/19 12:00 Pulse Ox 96 02/13/19 12:00 Intake & Output 02/12/19 02/13/19 02/13/19 18:59 06:59 18:59 Intake Total 100 100 940 Output Total 1900 1150 900 Balance -1800 -1050 40 Weight 89.9 kg 89.9 kg Intake: Intake, IV Titration 100 100 100 Amount Furosemide 100 mg In 100 100 Sodium Chloride 0.9% 90 ml @ 10 MG/HR 10 mls/hr IV .Q10H [facility] Rx#: [id number] Sodium Ferric Gluconat- 100 Sucrose 125 mg In Sodium Chloride 0.9% 100 ml @ 100 mls/hr IVPB DAILY [facility] Rx#:[id number] Oral 840 Output: Urine 1900 1150 900 Other: Voiding Method Toilet # Voids 1 1 # Bowel Movements 1 1 - Exam GENERAL: The patient is alert and oriented x3, not in any acute distress. Well developed, well nourished. HEENT: Pupils are round and equally reacting to light. EOMI. No scleral icterus. No conjunctival pallor. Normocephalic, atraumatic. No pharyngeal erythema. No thyromegaly. CARDIOVASCULAR: S1 and S2 present. No murmurs, rubs, or gallops. -PULMONARY: Chest is clear to auscultation, bilateral basal crepitation ABDOMEN: Soft, nontender, nondistended, normoactive bowel sounds. No palpable organomegaly. MUSCULOSKELETAL: No joint swelling or deformity. -EXTREMITIES: No cyanosis, clubbing,. Bilateral leg edema NEUROLOGICAL: Gross neurological examination did not reveal any focal deficits. SKIN: No rashes. - Labs CBC & Chem 7: 02/13/19 06:52 02/13/19 06:52 Labs: Abnormal Lab Results - Last 24 Hours (Table) 02/12/19 02/12/19 02/13/19 Range/Units 17:01 20:42 06:52 RBC 3.45 L (4.30-5.90) m/uL Hgb 8.3 L (13.0-17.5) gm/dL Hct 27.7 L (39.0-53.0) % MCH 24.2 L (25.0-35.0) pg MCHC 30.2 L (31.0-37.0) g/dL RDW 18.0 H (11.5-15.5) % Lymphocytes # 0.4 L (1.0-4.8) k/uL Sodium (137-145) mmol/L Chloride (98-107) mmol/L Carbon Dioxide (22-30) mmol/L BUN (9-20) mg/dL Creatinine (0.66-1.25) mg/dL POC Glucose (mg/dL) 235 H 199 H (75-99) mg/dL Alkaline Phosphatase (38-126) U/L Total Protein (6.3-8.2) g/dL Albumin (3.5-5.0) g/dL 02/13/19 02/13/19 02/13/19 Range/Units 06:52 10:43 11:42 RBC (4.30-5.90) m/uL Hgb (13.0-17.5) gm/dL Hct (39.0-53.0) % MCH (25.0-35.0) pg MCHC (31.0-37.0) g/dL RDW (11.5-15.5) % Lymphocytes # (1.0-4.8) k/uL Sodium 136 L (137-145) mmol/L Chloride 91 L (98-107) mmol/L Carbon Dioxide 37 H (22-30) mmol/L BUN 121 H* (9-20) mg/dL Creatinine 2.17 H (0.66-1.25) mg/dL POC Glucose (mg/dL) 208 H 205 H (75-99) mg/dL Alkaline Phosphatase 509 H (38-126) U/L Total Protein 5.9 L (6.3-8.2) g/dL Albumin 3.2 L (3.5-5.0) g/dL Microbiology - Last 24 Hours (Table) 02/09/19 12:46 Blood Culture - Preliminary Blood No Growth after 72 hours Assessment and Plan Assessment: Acute on chronic systolic congestive heart failure Elevated troponin History of atrial fibrillation on Eliquis History of coronary artery disease Type 2 diabetes mellitus History of GERD Hyperlipidemia Hypertension History of bilateral venous is status dermatitis Chronic kidney disease stage III Plan: This is a pleasant 78 years old male who presents because of acute CHF. Continue with diuretic. Continue with truck manager team recommendation. Monitor creatinine.Labs and medication were reviewed.. Continue same treatment. Continue with symptomatic treatment. Resume home medication. Monitor lytes and vitals. DVT and GI prophylaxis. Further recommendations of the clinical course of the patient DVT prophylaxis: Eliquis GI Prophylaxis: Protonix PT/OT: Pending Prognosis is guarded
--- NOTE | 2019-02-13 14:22 | P.PN ---
Subjective Progress Note Date: 02/13/19 This is a 78-year-old gentleman with history of coronary artery bypass grafting surgery back in December, subsequent to that he was transferred to [facility] with an infection in his leg, he did undergo a thoracentesis also at that time. Patient continues to have issues with fluid in his lungs and fluid in his legs, he has gained approximately 14 pounds of weight and can only walk short distances, without being very short of breath. The patient is currently on IV Lasix drip, his weight is down 1 kg today overall through the night last night he states that he put out a significant amount of urine. Blood pressure 132/70 with a heart rate in the 80s, 94% on 3 L of oxygen. 02/13/2019 Patient seen and examined this morning,blood pressure 112/60 with a heart rate in the 80s, 96% on room air.White blood cell count 6.6, hemoglobin 8.3, platelet count 246. Sodium 136, potassium 4.5, BUN 121 and creatinine 2.1.on IV Lasix, dosing as per nephrology. Objective - Vital Signs Vital signs: Vital Signs Temp 97.6 F 02/13/19 12:00 Pulse 84 02/13/19 12:10 Resp 16 02/13/19 12:00 BP 113/64 02/13/19 12:00 Pulse Ox 96 02/13/19 12:00 Intake & Output 02/12/19 02/13/19 02/13/19 18:59 06:59 18:59 Intake Total 100 100 940 Output Total 1900 1150 900 Balance -1800 -1050 40 Weight 89.9 kg 89.9 kg Intake: Intake, IV Titration 100 100 100 Amount Furosemide 100 mg In 100 100 Sodium Chloride 0.9% 90 ml @ 10 MG/HR 10 mls/hr IV .Q10H [facility] Rx#: [id number] Sodium Ferric Gluconat- 100 Sucrose 125 mg In Sodium Chloride 0.9% 100 ml @ 100 mls/hr IVPB DAILY [facility] Rx#:[id number] Oral 840 Output: Urine 1900 1150 900 Other: Voiding Method Toilet # Voids 1 1 # Bowel Movements 1 1 - Exam GENERAL EXAM: Alert, pleasant, 78-year-old male 3 L of oxygen with a pulse ox of 93% comfortable in no apparent distress. HEAD: Normocephalic/atraumatic. EYES: Normal reaction of pupils, equal size. Conjunctiva pink, sclera white. NOSE: Clear with pink turbinates. THROAT: No erythema or exudates. NECK: No masses, no JVD, no thyroid enlargement, no adenopathy. CHEST: No chest wall deformity. Symmetrical expansion. LUNGS: Equal air entry with diminished breath sounds CVS: Regular rate and rhythm, normal S1 and S2, no gallops, no murmurs, no rubs ABDOMEN: Soft, nontender. No hepatosplenomegaly, normal bowel sounds, no guarding or rigidity. EXTREMITIES: No clubbing, 1+ lower extremity edema, no cyanosis, 2+ pulses and upper and lower extremities. MUSCULOSKELETAL: Muscle strength and tone normal. SPINE: No scoliosis or deformity SKIN: No rashes CENTRAL NERVOUS SYSTEM: No focal deficits, tone is normal in all 4 extremities. PSYCHIATRIC: Alert and oriented -3. Appropriate affect. Intact judgment and insight. - Labs CBC & Chem 7: 02/13/19 06:52 02/13/19 06:52 Labs: Abnormal Lab Results - Last 24 Hours (Table) 02/12/19 02/12/19 02/13/19 Range/Units 17:01 20:42 06:52 RBC 3.45 L (4.30-5.90) m/uL Hgb 8.3 L (13.0-17.5) gm/dL Hct 27.7 L (39.0-53.0) % MCH 24.2 L (25.0-35.0) pg MCHC 30.2 L (31.0-37.0) g/dL RDW 18.0 H (11.5-15.5) % Lymphocytes # 0.4 L (1.0-4.8) k/uL Sodium (137-145) mmol/L Chloride (98-107) mmol/L Carbon Dioxide (22-30) mmol/L BUN (9-20) mg/dL Creatinine (0.66-1.25) mg/dL POC Glucose (mg/dL) 235 H 199 H (75-99) mg/dL Alkaline Phosphatase (38-126) U/L Total Protein (6.3-8.2) g/dL Albumin (3.5-5.0) g/dL 02/13/19 02/13/19 02/13/19 Range/Units 06:52 10:43 11:42 RBC (4.30-5.90) m/uL Hgb (13.0-17.5) gm/dL Hct (39.0-53.0) % MCH (25.0-35.0) pg MCHC (31.0-37.0) g/dL RDW (11.5-15.5) % Lymphocytes # (1.0-4.8) k/uL Sodium 136 L (137-145) mmol/L Chloride 91 L (98-107) mmol/L Carbon Dioxide 37 H (22-30) mmol/L BUN 121 H* (9-20) mg/dL Creatinine 2.17 H (0.66-1.25) mg/dL POC Glucose (mg/dL) 208 H 205 H (75-99) mg/dL Alkaline Phosphatase 509 H (38-126) U/L Total Protein 5.9 L (6.3-8.2) g/dL Albumin 3.2 L (3.5-5.0) g/dL Microbiology - Last 24 Hours (Table) 02/09/19 12:46 Blood Culture - Preliminary Blood No Growth after 72 hours Assessment and Plan Plan: Assessment: #1. Acute exacerbation of chronic systolic congestive heart failure with mildly impaired systolic function with ejection fraction 45-50% #2. Coronary artery disease with history of recent bypass grafting #3. History of COPD #4. Hyperlipidemia #5. Hypertension #6. Atrial flutter #7. GERD/reflux #8. Osteoarthritis #9. BPH #10. Slowly healing leg ulcerations, cultures pending. Plan From cardiology's perspective, we'll continue Lasix drip at current dose as per nephrology, continue to monitor the intake and output along with daily weights and daily lytes BUN and creatinine. DNP note has been reviewed, I agree with a documented findings and plan of care. Patient was seen and examined.
--- NOTE | 2019-02-13 16:01 | PN ---
PROGRESS NOTE Patient is seen for followup for severe volume overload and acute kidney injury. Currently he is maintained on a Lasix drip. The serum creatinine is at 2.17 from 2.0 yesterday. BUN has gone up to 121. Overall, patient states he is feeling better. His weight is down somewhat. 24 hour urine output documented at 3 L. PHYSICAL EXAMINATION: On examination today, blood pressure this morning was 110/56, heart rate of 88 per minute. Patient is afebrile. Examination of the heart S1, S2. Examination of the lungs, bilateral breath sounds are heard. Abdomen is soft, nontender, obese. Examination of lower extremities shows edema 3+ bilaterally. SHEATHER exam is grossly intact. LABS SHOW: Sodium 136, potassium 4.8, BUN 121, serum creatinine 2.17. Alkaline phosphatase is 509, hemoglobin at 8.3 g/dL, and albumin 3.2. ASSESSMENT: 1. Acute kidney injury mainly cardiorenal ongoing diuresis. Blood pressure is slightly on the lower side with occasional reading as low as 89 early this morning for systolic blood pressure. The patient is not on any nephrotoxic medications. However, we will need to decrease the dose of hydralazine. I will also change the Lasix drip to IV push Lasix. Since the BUN is significantly elevated, we will repeat labs in a.m. 2. Iron deficiency status post IV iron. 3. Severe volume overload, somewhat improved status post Lasix drip. 4. Anemia of chronic disease and iron deficiency status post IV iron. Maintained on Aranesp. 5. 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 6. Cardiomyopathy, EF 45-50 percent with moderate aortic stenosis, pulmonary hypertension. PLAN: Switch to IV push Lasix. Decrease hydralazine as blood pressure is on the lower side. Repeat labs in a.m.. MMODL / IJN: [id number] /
[2019-02-13] MEDS: FUROSEMIDE 10 MG/ML 10 ML VIAL IV SCH ×2 (16:10→23:22)
[2019-02-13 17:17] LABS: Glucose,Whole Blood 221 mg/dL (75-99)
--- NOTE | 2019-02-13 17:30 | P.PN ---
Subjective Progress Note Date: 02/13/19 Principal diagnosis: Shortness of breath related to acute congestive heart failure with systolic dysfunction On 02/10/2019 patient seen in follow-up. He is awake and alert, in no acute distress, 3 L of oxygen, and his pulse ox is 96%, afebrile, hemodynamically stable. White blood cell count today is 7.3, hemoglobin is 8.4, serum sodium is 136, potassium is 4.4, chloride is 98, CO2 is 30, BUN is 78, creatinine is 1.87. Renal profile is relatively stable. Patient remains on Lasix infusion, at 10 mg per hour, he is -1670 mL fluid balance over the last 24 hours. Breathing improving, lower extremity edema has improved. On 02/13/2017 patient seen in follow-up on selective care unit, he sitting up in a recliner, in no acute distress, currently on FiO2 of 2 L/m, and the pulse ox is 97%, no fever or chills, hemodynamically stable, no cords a worsening shortness of breath, no couplets of chest pain, lung sounds reveal diminished breath sounds bilaterally, no rhonchi, no wheezing, no rales. Lower extremity edema is improving, he remains on IV Lasix, currently at 60 mg every 8 hours. Patient is in -2850 mL fluid balance over the last 24 hours. Labs today were reviewed, showing white blood cell count of 6.6, hemoglobin of 8.3, sodium is 136, potassium is 4.5, chloride is 91, CO2 is 37, B1 was 121, creatinine is 2.17. Lower extremities are a prescription, and no redness, no weeping, blood culture showed no growth after 96 hours, and bilateral lower extremities and cultures showed no growth. Objective - Vital Signs Vital signs: Vital Signs Temp 97.8 F 02/13/19 16:00 Pulse 84 02/13/19 16:39 Resp 16 02/13/19 16:00 BP 122/70 02/13/19 16:00 Pulse Ox 97 02/13/19 16:29 Intake & Output 02/12/19 02/13/19 02/13/19 18:59 06:59 18:59 Intake Total 100 100 940 Output Total 1900 1150 1850 Balance -1800 -1050 -910 Weight 89.9 kg 89.9 kg Intake: Intake, IV Titration 100 100 100 Amount Furosemide 100 mg In 100 100 Sodium Chloride 0.9% 90 ml @ 10 MG/HR 10 mls/hr IV .Q10H [facility] Rx#: [id number] Sodium Ferric Gluconat- 100 Sucrose 125 mg In Sodium Chloride 0.9% 100 ml @ 100 mls/hr IVPB DAILY [facility] Rx#:[id number] Oral 840 Output: Urine 1900 1150 1850 Other: Voiding Method Toilet # Voids 1 1 1 # Bowel Movements 1 1 - Exam GENERAL EXAM: Alert, pleasant, 78-year-old white male 2 L of oxygen with a pul se ox of 96% comfortable in no apparent distress. HEAD: Normocephalic/atraumatic. EYES: Normal reaction of pupils, equal size. Conjunctiva pink, sclera white. NOSE: Clear with pink turbinates. THROAT: No erythema or exudates. NECK: No masses, no JVD, no thyroid enlargement, no adenopathy. CHEST: No chest wall deformity. Symmetrical expansion. LUNGS: Equal air entry with diminished breath sounds CVS: Regular rate and rhythm, normal S1 and S2, no gallops, no murmurs, no rubs ABDOMEN: Soft, nontender. No hepatosplenomegaly, normal bowel sounds, no guarding or rigidity. EXTREMITIES: No clubbing, 1+ lower extremity edema, no cyanosis, 2+ pulses and upper and lower extremities. MUSCULOSKELETAL: Muscle strength and tone normal. SPINE: No scoliosis or deformity SKIN: No rashes CENTRAL NERVOUS SYSTEM: Alert and oriented -3. No focal deficits, tone is normal in all 4 extremities. PSYCHIATRIC: Alert and oriented -3. Appropriate affect. Intact judgment and insight. - Labs CBC & Chem 7: 02/13/19 06:52 02/13/19 06:52 Labs: Abnormal Lab Results - Last 24 Hours (Table) 02/12/19 02/12/19 02/13/19 Range/Units 17:01 20:42 06:52 RBC 3.45 L (4.30-5.90) m/uL Hgb 8.3 L (13.0-17.5) gm/dL Hct 27.7 L (39.0-53.0) % MCH 24.2 L (25.0-35.0) pg MCHC 30.2 L (31.0-37.0) g/dL RDW 18.0 H (11.5-15.5) % Lymphocytes # 0.4 L (1.0-4.8) k/uL Sodium (137-145) mmol/L Chloride (98-107) mmol/L Carbon Dioxide (22-30) mmol/L BUN (9-20) mg/dL Creatinine (0.66-1.25) mg/dL POC Glucose (mg/dL) 235 H 199 H (75-99) mg/dL Alkaline Phosphatase (38-126) U/L Total Protein (6.3-8.2) g/dL Albumin (3.5-5.0) g/dL 02/13/19 02/13/19 02/13/19 Range/Units 06:52 10:43 11:42 RBC (4.30-5.90) m/uL Hgb (13.0-17.5) gm/dL Hct (39.0-53.0) % MCH (25.0-35.0) pg MCHC (31.0-37.0) g/dL RDW (11.5-15.5) % Lymphocytes # (1.0-4.8) k/uL Sodium 136 L (137-145) mmol/L Chloride 91 L (98-107) mmol/L Carbon Dioxide 37 H (22-30) mmol/L BUN 121 H* (9-20) mg/dL Creatinine 2.17 H (0.66-1.25) mg/dL POC Glucose (mg/dL) 208 H 205 H (75-99) mg/dL Alkaline Phosphatase 509 H (38-126) U/L Total Protein 5.9 L (6.3-8.2) g/dL Albumin 3.2 L (3.5-5.0) g/dL 02/13/19 Range/Units 17:06 RBC (4.30-5.90) m/uL Hgb (13.0-17.5) gm/dL Hct (39.0-53.0) % MCH (25.0-35.0) pg MCHC (31.0-37.0) g/dL RDW (11.5-15.5) % Lymphocytes # (1.0-4.8) k/uL Sodium (137-145) mmol/L Chloride (98-107) mmol/L Carbon Dioxide (22-30) mmol/L BUN (9-20) mg/dL Creatinine (0.66-1.25) mg/dL POC Glucose (mg/dL) 221 H (75-99) mg/dL Alkaline Phosphatase (38-126) U/L Total Protein (6.3-8.2) g/dL Albumin (3.5-5.0) g/dL Microbiology - Last 24 Hours (Table) 02/09/19 12:46 Blood Culture - Preliminary Blood No Growth after 96 hours Assessment and Plan Plan: Assessment: #1. Acute exacerbation of chronic congestive heart failure with systolic dysfunction #2. Coronary artery disease with history of recent bypass grafting #3. History of COPD #4. Hyperlipidemia #5. Hypertension #6. Atrial flutter #7. GERD/reflux #8. Osteoarthritis #9. BPH #10. Slowly healing leg ulcerations Plan: We'll obtain a follow-up chest x-ray tomorrow, patient is diuresing, negative fluid balance, lower extremity edema is improving, no worsening shortness of breath, FiO2 is being weaned down. No fever or chills, cultures remain negative thus far. Vital signs are stable, no worsening dyspnea, we'll continue to follow. I performed a history & physical examination of the patient and discussed their management with my nurse practitioner, Demetria Ramos. I reviewed the nurse practitioner's note and agree with the documented findings and plan of care. Lung sounds are positive for diminished breath sounds. The findings and the impression was discussed with the patient. I attest to the documentation by the nurse practitioner. Time with Patient: Less than 30
[2019-02-13 20:54] LABS: Glucose,Whole Blood 207 mg/dL (75-99)
[2019-02-13] MEDS: ASPIRIN 81 MG PO SCH (21:36)
[2019-02-13] MEDS: ATORVASTATIN 80 MG TAB PO SCH (21:36)
[2019-02-13] MEDS: MELATONIN 3 MG TABLET PO SCH (21:36)
[2019-02-13] MEDS: hydrALAZINE HCL 25 MG TAB PO SCH (21:36)
--- NOTE | 2019-02-14 00:03 | P.PN ---
Subjective Progress Note Date: 02/13/19 78-year-old gentleman with a known history of coronary disease who in November 2018 suffered a non-ST elevated myocardial infarction. Eversion at the present time reveal evidence of severe coronary disease and constantly was taken to the operating room and a her artery bypass graft procedure was performed including GONZALEZ to LAD as well as saphenous grafts from aorta to the first obtuse marginal as well as the distal PDA. The patient postoperatively had significant difficulties with effusion and underwent thoracentesis on 2 events. Eventually improved and was sent to rehabilitation. As related after his discharge from rehab went to the home setting but there was difficulties with the transition. The family relates that the patient is a and receives his medications from that source. Apparently time of his discharge he was at least 4 days before they're able to get most of his medications according his insulin for use at home. The patient then started to show some improvement. He had physical therapy session. The following day he became miserable with severe pain especi ally into his left leg. It escalated the point that he could not walk and constantly his family brought him to the emergency center and he was admitted. He had treatment of his underlying pulmonary disease, heart failure and his leg ulcerations. He again transitioned out of the hospital. He has not done well. He is continuing to have difficulty with increasing weight, increasing shortness of breath, significant generalized weakness with attempts to ambulate and constantly was again brought back to Hospital & evidence of congestive heart failure. He is now on a Lasix drip. Request for wound care was placed. The patient coughs readily short of breath and does not feel well overall. He is denying chest pain. 2018 the patient is having further improvement. He is much less short of breath is emeses had some diuresis. Still has extensive lower extremity edema. No chest pain at this time. Objective - Vital Signs Vital signs: Vital Signs Temp 97.8 F 02/13/19 16:00 Pulse 84 02/13/19 23:54 Resp 16 02/13/19 16:00 BP 122/70 02/13/19 16:00 Pulse Ox 97 02/13/19 16:29 Intake & Output 02/13/19 02/13/19 02/14/19 06:59 18:59 06:59 Intake Total 100 1300 Output Total 1150 1850 500 Balance -1050 -550 -500 Weight 89.9 kg 89.9 kg Intake: Intake, IV Titration 100 100 Amount Furosemide 100 mg In 100 Sodium Chloride 0.9% 90 ml @ 10 MG/HR 10 mls/hr IV .Q10H [facility] Rx#: [id number] Sodium Ferric Gluconat- 100 Sucrose 125 mg In Sodium Chloride 0.9% 100 ml @ 100 mls/hr IVPB DAILY [facility] Rx#:[id number] Oral 1200 Output: Urine 1150 1850 500 Other: Voiding Method Toilet # Voids 1 1 1 # Bowel Movements 1 - Exam HEENT: Anicteric conjunctiva are pink and moist nasal mucosa grossly intact without significant lesions, there is no thrush. Neck: The neck is supple without significant lymphadenopathy or thyromegaly. Lungs: Good bilateral air entry without significant crackles or wheezing. There is no significant bronchial sounds. There is no egophony or dullness. Heart: Regular rate and rhythm with an audible S1-S2, no S3 no S4. There is no significant murmur click or rub, PMI was nondisplaced. Abdomen: Positive bowel sounds soft and nontender without palpable masses or organomegaly. There was no guarding or rebound. Extremities: Upper extremities with diffuse small healing ecchymosis. The lower extremities have significant edema but there is marked improvement of the prior vein harvest sites. Ecchymosis is all resolved. The left lower extremity continues to have the open ulceration the lateral surface measuring approximately 3 x 3 x 0.2 cm. It is tender to touch. There is minimal surrounding erythema and little drainage noticed on the dressing at this time. Right lower extremity has edema. Neuro: Awake alert oriented to person place and time. There are no acute new gross focal sensory motor deficits. - Labs CBC & Chem 7: 02/13/19 06:52 02/13/19 06:52 Labs: Abnormal Lab Results - Last 24 Hours (Table) 02/13/19 02/13/19 02/13/19 Range/Units 06:52 06:52 10:43 RBC 3.45 L (4.30-5.90) m/uL Hgb 8.3 L (13.0-17.5) gm/dL Hct 27.7 L (39.0-53.0) % MCH 24.2 L (25.0-35.0) pg MCHC 30.2 L (31.0-37.0) g/dL RDW 18.0 H (11.5-15.5) % Lymphocytes # 0.4 L (1.0-4.8) k/uL Sodium 136 L (137-145) mmol/L Chloride 91 L (98-107) mmol/L Carbon Dioxide 37 H (22-30) mmol/L BUN 121 H* (9-20) mg/dL Creatinine 2.17 H (0.66-1.25) mg/dL POC Glucose (mg/dL) 208 H (75-99) mg/dL Alkaline Phosphatase 509 H (38-126) U/L Total Protein 5.9 L (6.3-8.2) g/dL Albumin 3.2 L (3.5-5.0) g/dL 02/13/19 02/13/19 02/13/19 Range/Units 11:42 17:06 20:53 RBC (4.30-5.90) m/uL Hgb (13.0-17.5) gm/dL Hct (39.0-53.0) % MCH (25.0-35.0) pg MCHC (31.0-37.0) g/dL RDW (11.5-15.5) % Lymphocytes # (1.0-4.8) k/uL Sodium (137-145) mmol/L Chloride (98-107) mmol/L Carbon Dioxide (22-30) mmol/L BUN (9-20) mg/dL Creatinine (0.66-1.25) mg/dL POC Glucose (mg/dL) 205 H 221 H 207 H (75-99) mg/dL Alkaline Phosphatase (38-126) U/L Total Protein (6.3-8.2) g/dL Albumin (3.5-5.0) g/dL Microbiology - Last 24 Hours (Table) 02/09/19 12:46 Blood Culture - Preliminary Blood No Growth after 96 hours Laboratory Results WBC 6.6 k/uL (3.8-10.6) 02/13/19 06:52 RBC 3.45 m/uL (4.30-5.90) L 02/13/19 06:52 Hgb 8.3 gm/dL (13.0-17.5) L 02/13/19 06:52 Hct 27.7 % (39.0-53.0) L 02/13/19 06:52 MCV 80.2 fL (80.0-100.0) 02/13/19 06:52 MCH 24.2 pg (25.0-35.0) L 02/13/19 06:52 MCHC 30.2 g/dL (31.0-37.0) L 02/13/19 06:52 RDW 18.0 % (11.5-15.5) H 02/13/19 06:52 Plt Count 246 k/uL (150-450) 02/13/19 06:52 Neutrophils % 71 % 02/13/19 06:52 Lymphocytes % 7 % 02/13/19 06:52 Monocytes % 9 % 02/13/19 06:52 Eosinophils % 9 % 02/13/19 06:52 Basophils % 1 % 02/13/19 06:52 Neutrophils # 4.6 k/uL (1.3-7.7) 02/13/19 06:52 Lymphocytes # 0.4 k/uL (1.0-4.8) L 02/13/19 06:52 Monocytes # 0.6 k/uL (0-1.0) 02/13/19 06:52 Eosinophils # 0.6 k/uL (0-0.7) 02/13/19 06:52 Basophils # 0.0 k/uL (0-0.2) 02/13/19 06:52 Hypochromasia Marked 02/13/19 06:52 Poikilocytosis Slight 02/12/19 05:48 Anisocytosis Slight 02/13/19 06:52 PT 10.8 sec (9.0-12.0) 02/08/19 12:36 INR 1.0 (<1.2) 02/08/19 12:36 APTT 27.4 sec (22.0-30.0) 02/08/19 12:36 Sodium 136 mmol/L (137-145) L 02/13/19 06:52 Potassium 4.5 mmol/L (3.5-5.1) 02/13/19 06:52 Chloride 91 mmol/L (98-107) L 02/13/19 06:52 Carbon Dioxide 37 mmol/L (22-30) H 02/13/19 06:52 Anion Gap 8 mmol/L 02/13/19 06:52 BUN 121 mg/dL (9-20) H* 02/13/19 06:52 Creatinine 2.17 mg/dL (0.66-1.25) H 02/13/19 06:52 Est GFR (CKD-EPI)AfAm 33 (>60 ml/min/1.73 sqM) 02/13/19 06:52 Est GFR (CKD-EPI)NonAf 29 (>60 ml/min/1.73 sqM) 02/13/19 06:52 Glucose 80 mg/dL (74-99) 02/13/19 06:52 POC Glucose (mg/dL) 207 mg/dL (75-99) H 02/13/19 20:53 POC Glu [employer] Operations Farm Manager ID Yakelin Keene 02/13/19 20:53 Calcium 8.6 mg/dL (8.4-10.2) 02/13/19 06:52 Phosphorus 5.6 mg/dL (2.5-4.5) H 02/09/19 12:46 Magnesium 2.3 mg/dL (1.6-2.3) 02/13/19 06:52 Iron 18 ug/dL (65-175) L 02/09/19 12:53 TIBC 311 ug/dL (228-460) 02/09/19 12:53 Iron Saturation 5.79 (15.00-50.00) L 02/09/19 12:53 Ferritin 98.0 ng/mL (22.0-322.0) 02/09/19 12:53 Total Bilirubin 0.6 mg/dL (0.2-1.3) 02/13/19 06:52 AST 25 U/L (17-59) 02/13/19 06:52 ALT 59 U/L (21-72) 02/13/19 06:52 Alkaline Phosphatase 509 U/L (38-126) H 02/13/19 06:52 Troponin I 0.062 ng/mL (0.000-0.034) H* 02/09/19 09:16 NT-Pro-B Natriuret Pep 94988 pg/mL 02/08/19 12:36 Total Protein 5.9 g/dL (6.3-8.2) L 02/13/19 06:52 Albumin 3.2 g/dL (3.5-5.0) L 02/13/19 06:52 Free PSA 0.65 ng/mL 02/10/19 06:04 % Free PSA 19 % 02/10/19 06:04 Total PSA 3.4 ng/mL (<=4.0) 02/10/19 06:04 Vit D 1,25-Dihydroxy 35 pg/mL (20 - 79) 02/09/19 12:46 Urine Color Light Yellow 02/09/19 16:29 Urine Appearance Clear (Clear) 02/09/19 16:29 Urine pH 5.0 (5.0-8.0) 02/09/19 16:29 Ur Specific [place] 1.008 (1.001-1.035) 02/09/19 16:29 Urine Protein 1+ (Negative) H 02/09/19 16:29 Urine Glucose (UA) Negative (Negative) 02/09/19 16:29 Urine Ketones Negative (Negative) 02/09/19 16:29 Urine Blood Trace (Negative) H 02/09/19 16:29 Urine Nitrite Negative (Negative) 02/09/19 16:29 Urine Bilirubin Negative (Negative) 02/09/19 16:29 Urine Urobilinogen <2.0 mg/dL (<2.0) 02/09/19 16:29 Ur Leukocyte Esterase Negative (Negative) 02/09/19 16:29 Urine RBC 6 /hpf (0-5) H 02/09/19 16:29 Urine WBC 1 /hpf (0-5) 02/09/19 16:29 Urine Bacteria Rare /hpf (None) H 02/09/19 16:29 Urine Mucus Rare /hpf (None) H 02/09/19 16:29 Microbiology 02/09/19 12:46 Blood Blood Culture - Preliminary No Growth after 96 hours 02/09/19 18:30 Leg - Right Gram Stain - Final 02/09/19 18:30 Leg - Right Wound Culture - Final 02/09/19 18:30 Leg - Left Gram Stain - Final 02/09/19 18:30 Leg - Left Wound Culture - Final Assessment and Plan (1) Acute on chronic systolic heart failure Current Visit: Yes Status: Acute Code(s): I50.23 - ACUTE ON CHRONIC SYSTOLIC (CONGESTIVE) HEART FAILURE SNOMED Code(s): 525094723 (2) Chronic renal failure syndrome Current Visit: Yes Status: Acute Code(s): N18.9 - CHRONIC KIDNEY DISEASE, UNSPECIFIED SNOMED Code(s): 17580952 (3) Leg ulcer, left Narrative/Plan: 78-year-old male has a history of significant underlying coronary artery disease status post CABG with ongoing difficulties with acute on chronic systolic congestive heart failure. Chronic volume overload postoperatively lower extremity edema in ulcerations. Currently more severe ulcerations of left leg than the right. Local wound care with absorptive silver dressing is requested for both legs. Recent culture showed evidence of Pseudomonas and Klebsiella as well as Providencia thus will utilize cefepime for now while cultures are pending. Patient is receiving Lasix via drip and has multiple consultants. Elevation of the limbs at rest as well as compression is being utilized at this time. Cultures will direct antibiotic therapy at discharge. 02/13/2019 reveals the patient to having some improvement of his congestive heart failure lower extremity edema with volume overload. Is feeling somewhat better. There are no other new acute changes cultures are negative at this point in time. He is being treated with local wound care without evidence of the extensive infection at this time. Elevation limbs as he can tolerate is helpful with the aggressive treatment of his congestive heart failure and lower extremity edema. Current Visit: No Status: Acute Code(s): L97.929 - NON-PRS CHRONIC ULC UNSP PRT OF L LOW LEG W UNSP SEVERITY SNOMED Code(s): 12291213 (4) Bilateral lower extremity edema Current Visit: Yes Status: Acute Code(s): R60.0 - LOCALIZED EDEMA SNOMED Code(s): 422686303
[2019-02-14] MEDS: IPRATROPIUM-ALBUTEROL 3 ML NEB INHALATION SCH ×6 (03:43→23:39)
[2019-02-14 06:03] LABS: Glucose,Whole Blood 126 mg/dL (75-99)
[2019-02-14] MEDS: INSULIN ASPART (NovoLOG) 100 UNIT/ML VIAL SQ SCH ×4 (06:37→20:43)
[2019-02-14] MEDS: PANTOPRAZOLE 40 MG TABLET PO SCH (06:52)
[2019-02-14] MEDS: ASCORBIC ACID 500 MG TAB PO SCH ×2 (06:52→17:01)
[2019-02-14 07:25] LABS: Anisocytosis Slight; Basophils % (A) 0 %; Eosinophils # (A) 0.6 k/uL (0-0.7); Eosinophils % (A) 8 %; HCT 28.5 % (39.0-53.0); HGB 8.7 gm/dL (13.0-17.5); Hypochromasia Slight; Lymphocytes # (A) 0.4 k/uL (1.0-4.8); Lymphocytes % (A) 5 %; MCH 24.3 pg (25.0-35.0); MCHC 30.6 g/dL (31.0-37.0); MCV 79.4 fL (80.0-100.0); Mean Platelet Volume 7.1; Microcytosis Slight; Monocytes # (A) 0.6 k/uL (0-1.0); Monocytes % (A) 8 %; Neutrophils # (A) 5.4 k/uL (1.3-7.7); Neutrophils % (A) 74 %; Platelet Count 267 k/uL (150-450); RBC 3.59 m/uL (4.30-5.90); WBC 7.3 k/uL (3.8-10.6)
[2019-02-14 08:17] LABS: Albumin 3.4 g/dL (3.5-5.0); Calcium 8.9 mg/dL (8.4-10.2); Potassium 4.2 mmol/L (3.5-5.1); Total Bilirubin 0.6 mg/dL (0.2-1.3); Total Protein 6.3 g/dL (6.3-8.2)
[2019-02-14] MEDS: METOPROLOL TARTRATE 25 MG TAB PO SCH ×2 (08:22→17:01)
[2019-02-14] MEDS: FUROSEMIDE 10 MG/ML 10 ML VIAL IV SCH ×2 (08:22→20:43)
[2019-02-14] MEDS: INSULIN DETEMIR (LEVEMIR) 100 UNIT/ML SYR SQ SCH (08:23)
--- NOTE | 2019-02-14 08:26 | XR ---
EXAMINATION TYPE: XR chest 2V DATE OF EXAM: 02/14/2019 COMPARISON: 02/08/2019 HISTORY: Soreness of breath TECHNIQUE: Frontal and lateral views of the chest are obtained. FINDINGS: Persistent right perihilar opacification is seen in addition to a small right pleural effu [place] and moderate left pleural effusion similar to the prior with left basilar airspace disease. Post CABG changes the chest are seen with thyromegaly and minimal pulmonary vascular congestion. No sizab le pneumothorax nor acute osseous process. IMPRESSION: Similar-appearing moderate left and small right pleural effusions with bibasilar airspac e disease. Findings are likely on the basis of decompensated congestive heart failure.
[2019-02-14] MEDS: TAMSULOSIN 0.4 MG CAP.ER.24H PO SCH ×2 (09:14→20:42)
[2019-02-14] MEDS: FERROUS SULFATE 325 MG TAB PO SCH (09:14)
[2019-02-14] MEDS: METOLAZONE 5 MG TAB PO SCH (09:14)
[2019-02-14] MEDS: APIXABAN 5 MG TAB PO SCH ×2 (09:14→20:42)
[2019-02-14] MEDS: SPIRONOLACTONE 25 MG TAB PO SCH (09:14)
[2019-02-14] MEDS: hydrALAZINE HCL 25 MG TAB PO SCH (09:14)
[2019-02-14] MEDS: NITROGLYCERIN OINT 1 INCH/GM PACKET TOPICAL SCH ×4 (09:14→20:43)
--- NOTE | 2019-02-14 11:03 | P.PN ---
Subjective This is a pleasant 78 years old male with past medical history of heart failure, atrial fibrillation, coronary artery disease, type 2 diabetes mellitus, GERD, hyperlipidemia, hypertension,bilateral venous stasis dermatitis, chronic kidney disease stage III. Who presents with signs and symptoms of acute congestive heart failure and elevated troponin. His been able with it by thai masseur and was started on Lasix drip. On admission also his creatinine was 1.8/2.0. Sulfide Head Operator recommended patient follow-up as an outpatient in 4-5 weeks for anemia and bone lesion. Today patient was more lethargic and sleepy however he is fully awake once been called his name. His dyspnea is improving with no chest pain. He has dry cough. No abdominal complaints or tenderness. No nausea vomiting and he starting diet well. No diarrhea. And no right upper quadrant pain or tenderness, negative Ag sign. Parenteral Lasix 60 mg 3 times a day. With indirect this is stable and his creatinine today is 2.17, sugar is controlled. Liver enzymes elevated. 02/14/2019 is more awake today, his breathing is improving, with no chest pain howev er he still have the dry cough. Patient also denies abdominal pain including no pain or tenderness in his right upper quadrant and in view of possible disease seen on CAT scan. Patient is still have bilateral leg swelling with wound on the left leg more than the right leg. Infectious disease team are following the case. Patient is hemodynamically stable. Hemoglobin 8.7. BUN is 129, creatinine 2.2. Sodium 136. Sugar is controlled. [place] team input is appreciated. Patient continued on parenteral Lasix 60 mg. Objective - Vital Signs Vital signs: Vital Signs Temp 97.7 F 02/14/19 07:31 Pulse 78 02/14/19 07:31 Resp 18 02/14/19 07:31 BP 122/71 02/14/19 07:31 Pulse Ox 94 L 02/14/19 07:31 Intake & Output 02/13/19 02/14/19 02/14/19 18:59 06:59 18:59 Intake Total 1300 240 Output Total 1850 1750 600 Balance -331 -4840 -943 Weight 89.9 kg 87.8 kg Intake: Intake, IV Titration 100 Amount Sodium Ferric Gluconat- 100 Sucrose 125 mg In Sodium Chloride 0.9% 100 ml @ 100 mls/hr IVPB DAILY [facility] Rx#:[id number] Oral 1200 240 Output: Urine 1850 1750 600 Other: Voiding Method Toilet # Voids 1 1 # Bowel Movements 1 1 - Exam GENERAL: The patient is alert and oriented x3, not in any acute distress. Well developed, well nourished. HEENT: Pupils are round and equally reacting to light. EOMI. No scleral icterus. No conjunctival pallor. Normocephalic, atraumatic. No pharyngeal erythema. No thyromegaly. CARDIOVASCULAR: S1 and S2 present. No murmurs, rubs, or gallops. -PULMONARY: Chest is clear to auscultation, bilateral basal crepitation ABDOMEN: Soft, nontender, nondistended, normoactive bowel sounds. No palpable organomegaly. MUSCULOSKELETAL: No joint swelling or deformity. -EXTREMITIES: No cyanosis, clubbing,. Bilateral leg edema NEUROLOGICAL: Gross neurological examination did not reveal any focal deficits. SKIN: No rashes. - Labs CBC & Chem 7: 02/14/19 06:49 02/14/19 06:49 Labs: Abnormal Lab Results - Last 24 Hours (Table) 02/13/19 02/13/19 02/13/19 Range/Units 11:42 17:06 20:53 RBC (4.30-5.90) m/uL Hgb (13.0-17.5) gm/dL Hct (39.0-53.0) % MCV (80.0-100.0) fL MCH (25.0-35.0) pg MCHC (31.0-37.0) g/dL RDW (11.5-15.5) % Lymphocytes # (1.0-4.8) k/uL Sodium (137-145) mmol/L Chloride (98-107) mmol/L Carbon Dioxide (22-30) mmol/L BUN (9-20) mg/dL Creatinine (0.66-1.25) mg/dL POC Glucose (mg/dL) 205 H 221 H 207 H (75-99) mg/dL Alkaline Phosphatase (38-126) U/L Albumin (3.5-5.0) g/dL 02/14/19 02/14/19 02/14/19 Range/Units 06:02 06:49 06:49 RBC 3.59 L (4.30-5.90) m/uL Hgb 8.7 L (13.0-17.5) gm/dL Hct 28.5 L (39.0-53.0) % MCV 79.4 L (80.0-100.0) fL MCH 24.3 L (25.0-35.0) pg MCHC 30.6 L (31.0-37.0) g/dL RDW 19.0 H (11.5-15.5) % Lymphocytes # 0.4 L (1.0-4.8) k/uL Sodium 136 L (137-145) mmol/L Chloride 92 L (98-107) mmol/L Carbon Dioxide 36 H (22-30) mmol/L BUN 129 H* (9-20) mg/dL Creatinine 2.24 H (0.66-1.25) mg/dL POC Glucose (mg/dL) 126 H (75-99) mg/dL Alkaline Phosphatase 505 H (38-126) U/L Albumin 3.4 L (3.5-5.0) g/dL Microbiology - Last 24 Hours (Table) 02/09/19 12:46 Blood Culture - Preliminary Blood No Growth after 96 hours Assessment and Plan Assessment: Acute on chronic systolic congestive heart failure Elevated troponin History of atrial fibrillation on Eliquis History of coronary artery disease Type 2 diabetes mellitus History of GERD Hyperlipidemia Hypertension History of bilateral venous is status dermatitis Chronic kidney disease stage III Plan: This is a pleasant 78 years old male who presents because of acute CHF. Continue with diuretic. Continue with thai masseur team recommendation. Monitor creatinine.Labs and medication were reviewed.. Continue same treatment. Continue with symptomatic treatment. Resume home medication. Monitor lytes and vitals. DVT and GI prophylaxis. Further recommendations of the clinical course of the patient DVT prophylaxis: Eliquis GI Prophylaxis: Protonix PT/OT: Pending Prognosis is guarded
[2019-02-14] MEDS: FOLIC ACID 1 MG TAB PO SCH (12:13)
[2019-02-14] MEDS: THIAMINE 100 MG TAB PO SCH (12:13)
[2019-02-14] MEDS: MULTIVITAMINS, THERA 1 EACH TAB PO SCH (12:13)
[2019-02-14 12:21] LABS: Glucose,Whole Blood 197 mg/dL (75-99)
--- NOTE | 2019-02-14 14:29 | PN ---
PROGRESS NOTE Patient is seen for followup for chronic kidney disease and volume overload. He has been on Lasix drip, which was discontinued yesterday and patient was changed to IV push Lasix. He continues to have fair urine output. His weight is down from yesterday. Overall, he states he is feeling slightly better. BUN has gone up to 129 from 121 yesterday. His serum creatinine is about the same at 2.2 from 2.1 yesterday. PHYSICAL EXAMINATION: This morning, blood pressure 94/67, heart rate 85 per minute. He is afebrile. Examination of the heart S1, S2. Examination of the lungs, bilateral breath sounds are heard. Abdomen is soft, nontender. Examination of the lower extremities shows bilateral edema 2+. Both extremities are wrapped. RUBBER ROLLER GRINDER exam is grossly intact. LABS: Show sodium 136, potassium 4.2, chloride 92, BUN 129, serum creatinine 2.24, hemoglobin 8.7 g/dL. ASSESSMENT: 1. Acute kidney injury, cardiorenal and secondary to diuretics. Lasix will be decreased further to q.12 hours. The patient has lost weight as compared to yesterday. Continue to keep the legs wrapped, continue to avoid nephrotoxic agents. Blood pressure is on the lower side. Patient's hydralazine was decreased yesterday. I will decrease it further as he did have a systolic of 94 mmHG today. 2. Volume overload, slowly improving. 3. Iron deficiency, status post IV iron. 4. Anemia of chronic disease and iron deficiency, status post IV iron. Maintained on Aranesp. 5. Chronic kidney disease stage III secondary to nephrosclerosis. 6. Cardiomyopathy, ejection fraction 45%-50% with moderate aortic stenosis and pulmonary hypertension. PLAN: Decrease hydralazine further to 10 mg twice a day. Decrease Lasix to 60 mg q.12 hours. Repeat labs in a.m. MMODL / IJN: [id number] /
[2019-02-14 17:03] LABS: Glucose,Whole Blood 274 mg/dL (75-99)
[2019-02-14 20:37] LABS: Glucose,Whole Blood 266 mg/dL (75-99)
[2019-02-14] MEDS: ASPIRIN 81 MG PO SCH (20:42)
[2019-02-14] MEDS: MELATONIN 3 MG TABLET PO SCH (20:42)
[2019-02-14] MEDS: ATORVASTATIN 80 MG TAB PO SCH (20:43)
[2019-02-14] MEDS: hydrALAZINE HCL 10 MG TAB PO SCH (20:43)
--- NOTE | 2019-02-15 00:18 | P.PN ---
Subjective Progress Note Date: 02/14/19 78-year-old gentleman with a known history of coronary disease who in November 2018 suffered a non-ST elevated myocardial infarction. Eversion at the present time reveal evidence of severe coronary disease and constantly was taken to the operating room and a her artery bypass graft procedure was performed including GONZALEZ to LAD as well as saphenous grafts from aorta to the first obtuse marginal as well as the distal PDA. The patient postoperatively had significant difficulties with effusion and underwent thoracentesis on 2 events. Eventually improved and was sent to rehabilitation. As related after his discharge from rehab went to the home setting but there was difficulties with the transition. The family relates that the patient is a and receives his medications from that source. Apparently time of his discharge he was at least 4 days before they're able to get most of his medications according his insulin for use at home. The patient then started to show some improvement. He had physical therapy session. The following day he became miserable with severe pain especi ally into his left leg. It escalated the point that he could not walk and constantly his family brought him to the emergency center and he was admitted. He had treatment of his underlying pulmonary disease, heart failure and his leg ulcerations. He again transitioned out of the hospital. He has not done well. He is continuing to have difficulty with increasing weight, increasing shortness of breath, significant generalized weakness with attempts to ambulate and constantly was again brought back to Hospital & evidence of congestive heart failure. He is now on a Lasix drip. Request for wound care was placed. The patient coughs readily short of breath and does not feel well overall. He is denying chest pain. 02/13 2019 the patient is having further improvement. He is much less short of breath is emeses had some diuresis. Still has extensive lower extremity edema. No chest pain at this time. 02/14/2019 reveals evidence of further improvement. Lower extremity edema is improved drainage from the ulcerations improved shortness of breath is improved continues to follow with cardiology. Objective - Vital Signs Vital signs: Vital Signs Temp 97.7 F 02/14/19 20:00 Pulse 68 02/15/19 00:00 Resp 18 02/15/19 00:00 BP 108/54 02/15/19 00:00 Pulse Ox 95 02/15/19 00:00 Intake & Output 02/14/19 02/14/19 02/15/19 06:59 18:59 06:59 Intake Total 720 Output Total 1750 2400 350 Balance -1750 -1680 -350 Weight 87.8 kg Intake: Oral 720 Output: Urine 1750 2400 350 Other: Voiding Method Toilet # Voids 1 # Bowel Movements 1 1 - Exam HEENT: Anicteric conjunctiva are pink and moist nasal mucosa grossly intact without significant lesions, there is no thrush. Neck: The neck is supple without significant lymphadenopathy or thyromegaly. Lungs: Good bilateral air entry without significant crackles or wheezing. There is no significant bronchial sounds. There is no egophony or dullness. Heart: Regular rate and rhythm with an audible S1-S2, no S3 no S4. There is no significant murmur click or rub, PMI was nondisplaced. Abdomen: Positive bowel sounds soft and nontender without palpable masses or organomegaly. There was no guarding or rebound. Extremities: Upper extremities with diffuse small healing ecchymosis. The lower extremities have significant edema but there is marked improvement of the prior vein harvest sites. Ecchymosis is all resolved. The left lower extremity continues to have the open ulceration the lateral surface measuring approximately 3 x 3 x 0.2 cm. It is tender to touch. There is minimal surrounding erythema and little drainage noticed on the dressing at this time. Right lower extremity has edema. Neuro: Awake alert oriented to person place and time. There are no acute new gross focal sensory motor deficits. - Labs CBC & Chem 7: 02/14/19 06:49 02/14/19 06:49 Labs: Abnormal Lab Results - Last 24 Hours (Table) 02/14/19 02/14/19 02/14/19 Range/Units 06:02 06:49 06:49 RBC 3.59 L (4.30-5.90) m/uL Hgb 8.7 L (13.0-17.5) gm/dL Hct 28.5 L (39.0-53.0) % MCV 79.4 L (80.0-100.0) fL MCH 24.3 L (25.0-35.0) pg MCHC 30.6 L (31.0-37.0) g/dL RDW 19.0 H (11.5-15.5) % Lymphocytes # 0.4 L (1.0-4.8) k/uL Sodium 136 L (137-145) mmol/L Chloride 92 L (98-107) mmol/L Carbon Dioxide 36 H (22-30) mmol/L BUN 129 H* (9-20) mg/dL Creatinine 2.24 H (0.66-1.25) mg/dL POC Glucose (mg/dL) 126 H (75-99) mg/dL Alkaline Phosphatase 505 H (38-126) U/L Albumin 3.4 L (3.5-5.0) g/dL 02/14/19 02/14/19 02/14/19 Range/Units 11:59 16:57 20:35 RBC (4.30-5.90) m/uL Hgb (13.0-17.5) gm/dL Hct (39.0-53.0) % MCV (80.0-100.0) fL MCH (25.0-35.0) pg MCHC (31.0-37.0) g/dL RDW (11.5-15.5) % Lymphocytes # (1.0-4.8) k/uL Sodium (137-145) mmol/L Chloride (98-107) mmol/L Carbon Dioxide (22-30) mmol/L BUN (9-20) mg/dL Creatinine (0.66-1.25) mg/dL POC Glucose (mg/dL) 197 H 274 H 266 H (75-99) mg/dL Alkaline Phosphatase (38-126) U/L Albumin (3.5-5.0) g/dL Microbiology - Last 24 Hours (Table) 02/09/19 12:46 Blood Culture - Preliminary Blood No Growth after 120 hours Laboratory Results WBC 7.3 k/uL (3.8-10.6) 02/14/19 06:49 RBC 3.59 m/uL (4.30-5.90) L 02/14/19 06:49 Hgb 8.7 gm/dL (13.0-17.5) L 02/14/19 06:49 Hct 28.5 % (39.0-53.0) L 02/14/19 06:49 MCV 79.4 fL (80.0-100.0) L 02/14/19 06:49 MCH 24.3 pg (25.0-35.0) L 02/14/19 06:49 MCHC 30.6 g/dL (31.0-37.0) L 02/14/19 06:49 RDW 19.0 % (11.5-15.5) H 02/14/19 06:49 Plt Count 267 k/uL (150-450) 02/14/19 06:49 Neutrophils % 74 % 02/14/19 06:49 Lymphocytes % 5 % 02/14/19 06:49 Monocytes % 8 % 02/14/19 06:49 Eosinophils % 8 % 02/14/19 06:49 Basophils % 0 % 02/14/19 06:49 Neutrophils # 5.4 k/uL (1.3-7.7) 02/14/19 06:49 Lymphocytes # 0.4 k/uL (1.0-4.8) L 02/14/19 06:49 Monocytes # 0.6 k/uL (0-1.0) 02/14/19 06:49 Eosinophils # 0.6 k/uL (0-0.7) 02/14/19 06:49 Basophils # 0.0 k/uL (0-0.2) 02/14/19 06:49 Hypochromasia Slight 02/14/19 06:49 Poikilocytosis Slight 02/12/19 05:48 Anisocytosis Slight 02/14/19 06:49 Microcytosis Slight 02/14/19 06:49 PT 10.8 sec (9.0-12.0) 02/08/19 12:36 INR 1.0 (<1.2) 02/08/19 12:36 APTT 27.4 sec (22.0-30.0) 02/08/19 12:36 Sodium 136 mmol/L (137-145) L 02/14/19 06:49 Potassium 4.2 mmol/L (3.5-5.1) 02/14/19 06:49 Chloride 92 mmol/L (98-107) L 02/14/19 06:49 Carbon Dioxide 36 mmol/L (22-30) H 02/14/19 06:49 Anion Gap 8 mmol/L 02/14/19 06:49 BUN 129 mg/dL (9-20) H* 02/14/19 06:49 Creatinine 2.24 mg/dL (0.66-1.25) H 02/14/19 06:49 Est GFR (CKD-EPI)AfAm 32 (>60 ml/min/1.73 sqM) 02/14/19 06:49 Est GFR (CKD-EPI)NonAf 28 (>60 ml/min/1.73 sqM) 02/14/19 06:49 Glucose 97 mg/dL (74-99) 02/14/19 06:49 POC Glucose (mg/dL) 266 mg/dL (75-99) H 02/14/19 20:35 POC Glu Sustainability Officer ID Laura Borja 02/14/19 20:35 Calcium 8.9 mg/dL (8.4-10.2) 02/14/19 06:49 Phosphorus 5.6 mg/dL (2.5-4.5) H 02/09/19 12:46 Magnesium 2.3 mg/dL (1.6-2.3) 02/13/19 06:52 Iron 18 ug/dL (65-175) L 02/09/19 12:53 TIBC 311 ug/dL (228-460) 02/09/19 12:53 Iron Saturation 5.79 (15.00-50.00) L 02/09/19 12:53 Ferritin 98.0 ng/mL (22.0-322.0) 02/09/19 12:53 Total Bilirubin 0.6 mg/dL (0.2-1.3) 02/14/19 06:49 AST 26 U/L (17-59) 02/14/19 06:49 ALT 56 U/L (21-72) 02/14/19 06:49 Alkaline Phosphatase 505 U/L (38-126) H 02/14/19 06:49 Troponin I 0.062 ng/mL (0.000-0.034) H* 02/09/19 09:16 NT-Pro-B Natriuret Pep 32535 pg/mL 02/08/19 12:36 Total Protein 6.3 g/dL (6.3-8.2) 02/14/19 06:49 Albumin 3.4 g/dL (3.5-5.0) L 02/14/19 06:49 Free PSA 0.65 ng/mL 02/10/19 06:04 % Free PSA 19 % 06/07/19 06:04 Total PSA 3.4 ng/mL (<=4.0) 02/10/19 06:04 Vit D 1,25-Dihydroxy 35 pg/mL (20 - 79) 02/09/19 12:46 Urine Color Light Yellow 02/09/19 16:29 Urine Appearance Clear (Clear) 02/09/19 16:29 Urine pH 5.0 (5.0-8.0) 02/09/19 16:29 Ur Specific [place] 1.008 (1.001-1.035) 02/09/19 16:29 Urine Protein 1+ (Negative) H 02/09/19 16:29 Urine Glucose (UA) Negative (Negative) 02/09/19 16:29 Urine Ketones Negative (Negative) 02/09/19 16:29 Urine Blood Trace (Negative) H 02/09/19 16:29 Urine Nitrite Negative (Negative) 02/09/19 16:29 Urine Bilirubin Negative (Negative) 02/09/19 16:29 Urine Urobilinogen <2.0 mg/dL (<2.0) 02/09/19 16:29 Ur Leukocyte Esterase Negative (Negative) 02/09/19 16:29 Urine RBC 6 /hpf (0-5) H 02/09/19 16:29 Urine WBC 1 /hpf (0-5) 02/09/19 16:29 Urine Bacteria Rare /hpf (None) H 02/09/19 16:29 Urine Mucus Rare /hpf (None) H 02/09/19 16:29 Microbiology 02/09/19 12:46 Blood Blood Culture - Preliminary No Growth after 120 hours 02/09/19 18:30 Leg - Right Gram Stain - Final 02/09/19 18:30 Leg - Right Wound Culture - Final 02/09/19 18:30 Leg - Left Gram Stain - Final 02/09/19 18:30 Leg - Left Wound Culture - Final Assessment and Plan (1) Acute on chronic systolic heart failure Current Visit: Yes Status: Acute Code(s): I50.23 - ACUTE ON CHRONIC SYSTOLIC (CONGESTIVE) HEART FAILURE SNOMED Code(s): 708272957 (2) Chronic renal failure syndrome Current Visit: Yes Status: Acute Code(s): N18.9 - CHRONIC KIDNEY DISEASE, UNSPECIFIED SNOMED Code(s): 74076037 (3) Leg ulcer, left Narrative/Plan: 78-year-old male has a history of significant underlying coronary artery disease status post CABG with ongoing difficulties with acute on chronic systolic congestive heart failure. Chronic volume overload postoperatively lower extremity edema in ulcerations. Currently more severe ulcerations of left leg than the right. Local wound care with absorptive silver dressing is requested for both legs. Recent culture showed evidence of Pseudomonas and Klebsiella as well as Providencia thus will utilize cefepime for now while cultures are pending. Patient is receiving Lasix via drip and has multiple consultants. Elevation of the limbs at rest as well as compression is being utilized at this time. Cultures will direct antibiotic therapy at discharge. 02/13/2019 reveals the patient to having some improvement of his congestive heart failure lower extremity edema with volume overload. Is feeling somewhat better. There are no other new acute changes cultures are negative at this point in time. He is being treated with local wound care without evidence of the extensive infection at this time. Elevation limbs as he can tolerate is helpful with the aggressive treatment of his congestive heart failure and lower extremity edema. 02/14/2019 patient is having further improvement of his significant heart failure and the result lower extremity edema. He is less short of breath but is still fatigued and has malaise. Lower extremities ulcerations persist but have less drainage tolerating local wound care well. Cultures are negative so far. Will not likely need any ongoing antibiotic therapy after discharge other than local wound care. Current Visit: No Status: Acute Code(s): L97.929 - NON-PRS CHRONIC ULC UNSP PRT OF L LOW LEG W UNSP SEVERITY SNOMED Code(s): 47034831 (4) Bilateral lower extremity edema Current Visit: Yes Status: Acute Code(s): R60.0 - LOCALIZED EDEMA SNOMED Code(s): 313644998
[2019-02-15] MEDS: IPRATROPIUM-ALBUTEROL 3 ML NEB INHALATION SCH ×5 (03:24→19:46)
[2019-02-15 06:20] LABS: Glucose,Whole Blood 231 mg/dL (75-99)
[2019-02-15] MEDS: ASCORBIC ACID 500 MG TAB PO SCH ×2 (06:49→17:55)
[2019-02-15] MEDS: INSULIN ASPART (NovoLOG) 100 UNIT/ML VIAL SQ SCH ×4 (06:49→21:26)
[2019-02-15] MEDS: PANTOPRAZOLE 40 MG TABLET PO SCH (06:49)
[2019-02-15 06:58] LABS: Anisocytosis Slight; Basophils % (A) 0 %; Eosinophils # (A) 0.5 k/uL (0-0.7); Eosinophils % (A) 8 %; HCT 29.6 % (39.0-53.0); Hypochromasia Moderate; Lymphocytes # (A) 0.4 k/uL (1.0-4.8); Lymphocytes % (A) 6 %; MCH 24.4 pg (25.0-35.0); MCHC 30.2 g/dL (31.0-37.0); MCV 80.9 fL (80.0-100.0); Mean Platelet Volume 7.4; Microcytosis Slight; Monocytes # (A) 0.6 k/uL (0-1.0); Monocytes % (A) 9 %; Neutrophils % (A) 74 %; Platelet Count 273 k/uL (150-450); RBC 3.66 m/uL (4.30-5.90); RDW 19.3 % (11.5-15.5); WBC 6.7 k/uL (3.8-10.6)
[2019-02-15 07:55] LABS: Albumin 3.4 g/dL (3.5-5.0); Calcium 8.8 mg/dL (8.4-10.2); Potassium 4.2 mmol/L (3.5-5.1); Total Bilirubin 0.7 mg/dL (0.2-1.3); Total Protein 6.3 g/dL (6.3-8.2)
[2019-02-15] MEDS: APIXABAN 5 MG TAB PO SCH ×2 (08:59→21:19)
[2019-02-15] MEDS: INSULIN DETEMIR (LEVEMIR) 100 UNIT/ML SYR SQ SCH (08:59)
[2019-02-15] MEDS: hydrALAZINE HCL 10 MG TAB PO SCH ×2 (08:59→21:19)
[2019-02-15] MEDS: TAMSULOSIN 0.4 MG CAP.ER.24H PO SCH ×2 (08:59→21:19)
[2019-02-15] MEDS: FERROUS SULFATE 325 MG TAB PO SCH (08:59)
[2019-02-15] MEDS: METOPROLOL TARTRATE 25 MG TAB PO SCH ×2 (09:00→17:55)
[2019-02-15] MEDS: FUROSEMIDE 10 MG/ML 10 ML VIAL IV SCH ×2 (09:00→21:18)
[2019-02-15] MEDS: SPIRONOLACTONE 25 MG TAB PO SCH (09:00)
[2019-02-15] MEDS: THIAMINE 100 MG TAB PO SCH (09:00)
[2019-02-15] MEDS: NITROGLYCERIN OINT 1 INCH/GM PACKET TOPICAL SCH ×4 (09:00→21:19)
[2019-02-15] MEDS: MULTIVITAMINS, THERA 1 EACH TAB PO SCH (09:00)
[2019-02-15] MEDS: FOLIC ACID 1 MG TAB PO SCH (09:00)
[2019-02-15] MEDS: METOLAZONE 5 MG TAB PO SCH (09:03)
[2019-02-15 11:40] LABS: Glucose,Whole Blood 222 mg/dL (75-99)
--- NOTE | 2019-02-15 13:02 | P.PN ---
Subjective This is a pleasant 78 years old male with past medical history of heart failure, atrial fibrillation, coronary artery disease, type 2 diabetes mellitus, GERD, hyperlipidemia, hypertension,bilateral venous stasis dermatitis, chronic kidney disease stage III. Who presents with signs and symptoms of acute congestive heart failure and elevated troponin. His been able with it by entomology teacher and was started on Lasix drip. On admission also his creatinine was 1.8/2.0. Bilingual Interpreter recommended patient follow-up as an outpatient in 4-5 weeks for anemia and bone lesion. Today patient was more lethargic and sleepy however he is fully awake once been called his name. His dyspnea is improving with no chest pain. He has dry cough. No abdominal complaints or tenderness. No nausea vomiting and he starting diet well. No diarrhea. And no right upper quadrant pain or tenderness, negative Ag sign. Parenteral Lasix 60 mg 3 times a day. With indirect this is stable and his creatinine today is 2.17, sugar is controlled. Liver enzymes elevated. 02/14/2019 is more awake today, his breathing is improving, with no chest pain howev er he still have the dry cough. Patient also denies abdominal pain including no pain or tenderness in his right upper quadrant and in view of possible disease seen on CAT scan. Patient is still have bilateral leg swelling with wound on the left leg more than the right leg. Infectious disease team are following the case. Patient is hemodynamically stable. Hemoglobin 8.7. BUN is 129, creatinine 2.2. Sodium 136. Sugar is controlled. City Bus Driver team input is appreciated. Patient continued on parenteral Lasix 60 mg. 02/15/2019 Patient is much better today is awake and more alert. His coughing is improving and his breathing is easing down. He denies chest pain or abdominal pain. He 'll still has slight edema and wound in his left leg. Patient is currently on Eliquis, IV Lasix 60 mg lowered down to twice daily. Also patient is on Zaroxolyn 5 mg daily. Infectious disease input is appreciated, mostly patient will need only local wound care without antibiotics upon discharge for his leg wound. Patient might need ECF for inpatient rehab upon discharge Objective - Vital Signs Vital signs: Vital Signs Temp 97.4 F L 02/15/19 09:50 Pulse 84 02/15/19 12:11 Resp 20 02/15/19 09:50 BP 102/58 02/15/19 09:50 Pulse Ox 92 L 02/15/19 09:50 Intake & Output 02/14/19 02/15/19 02/15/19 18:59 06:59 18:59 Intake Total 720 10 480 Output Total 2400 1200 Balance -1680 -1190 480 Weight 86.3 kg Intake: IV 10 Invasive Line 2 10 Oral 720 480 Output: Urine 2400 1200 Other: # Voids 1 1 # Bowel Movements 1 2 1 - Exam GENERAL: The patient is alert and oriented x3, not in any acute distress. Well developed, well nourished. HEENT: Pupils are round and equally reacting to light. EOMI. No scleral icterus. No conjunctival pallor. Normocephalic, atraumatic. No pharyngeal erythema. No thyromegaly. CARDIOVASCULAR: S1 and S2 present. No murmurs, rubs, or gallops. -PULMONARY: Chest is clear to auscultation, bilateral basal crepitation ABDOMEN: Soft, nontender, nondistended, normoactive bowel sounds. No palpable organomegaly. MUSCULOSKELETAL: No joint swelling or deformity. -EXTREMITIES: No cyanosis, clubbing,. Bilateral leg edema NEUROLOGICAL: Gross neurological examination did not reveal any focal deficits. SKIN: No rashes. - Labs CBC & Chem 7: 02/15/19 06:30 02/15/19 06:30 Labs: Abnormal Lab Results - Last 24 Hours (Table) 02/14/19 02/14/19 02/15/19 Range/Units 16:57 20:35 06:18 RBC (4.30-5.90) m/uL Hgb (13.0-17.5) gm/dL Hct (39.0-53.0) % MCH (25.0-35.0) pg MCHC (31.0-37.0) g/dL RDW (11.5-15.5) % Lymphocytes # (1.0-4.8) k/uL Chloride (98-107) mmol/L Carbon Dioxide (22-30) mmol/L BUN (9-20) mg/dL Creatinine (0.66-1.25) mg/dL Glucose (74-99) mg/dL POC Glucose (mg/dL) 274 H 266 H 231 H (75-99) mg/dL Alkaline Phosphatase (38-126) U/L Albumin (3.5-5.0) g/dL 02/15/19 02/15/19 02/15/19 Range/Units 06:30 06:30 11:38 RBC 3.66 L (4.30-5.90) m/uL Hgb 9.0 L (13.0-17.5) gm/dL Hct 29.6 L (39.0-53.0) % MCH 24.4 L (25.0-35.0) pg MCHC 30.2 L (31.0-37.0) g/dL RDW 19.3 H (11.5-15.5) % Lymphocytes # 0.4 L (1.0-4.8) k/uL Chloride 90 L (98-107) mmol/L Carbon Dioxide 39 H (22-30) mmol/L BUN 138 H* (9-20) mg/dL Creatinine 2.18 H (0.66-1.25) mg/dL Glucose 133 H (74-99) mg/dL POC Glucose (mg/dL) 222 H (75-99) mg/dL Alkaline Phosphatase 499 H (38-126) U/L Albumin 3.4 L (3.5-5.0) g/dL Microbiology - Last 24 Hours (Table) 02/09/19 12:46 Blood Culture - Preliminary Blood No Growth after 120 hours Assessment and Plan Assessment: Acute on chronic systolic congestive heart failure Elevated troponin History of atrial fibrillation on Eliquis History of coronary artery disease Type 2 diabetes mellitus History of GERD Hyperlipidemia Hypertension History of bilateral venous is status dermatitis Chronic kidney disease stage III Plan: This is a pleasant 78 years old male who presents because of acute CHF. Continue with diuretic. Continue with entomology teacher team recommendation. Monitor creatinine.Labs and medication were reviewed.. Continue same treatment. Continue with symptomatic treatment. Resume home medication. Monitor lytes and vitals. DVT and GI prophylaxis. Further recommendations of the clinical course of the patient DVT prophylaxis: Eliquis GI Prophylaxis: Protonix PT/OT: Pending Prognosis is guarded
--- NOTE | 2019-02-15 13:15 | P.PN ---
Subjective Progress Note Date: 02/14/19 This is a 78-year-old gentleman with history of coronary artery bypass grafting surgery back in December, subsequent to that he was transferred to [facility] with an infection in his leg, he did undergo a thoracentesis also at that time. Patient continues to have issues with fluid in his lungs and fluid in his legs, he has gained approximately 14 pounds of weight and can only walk short distances, without being very short of breath. The patient is currently on IV Lasix drip, his weight is down 1 kg today overall through the night last night he states that he put out a significant amount of urine. Blood pressure 132/70 with a heart rate in the 80s, 94% on 3 L of oxygen. 02/13/2019 Patient seen and examined this morning,blood pressure 112/60 with a heart rate in the 80s, 96% on room air.White blood cell count 6.6, hemoglobin 8.3, platelet count 246. Sodium 136, potassium 4.5, BUN 121 and creatinine 2.1.on IV Lasix, dosing as per nephrology. 02/14/2019 Patient was seen and examined this morning, he states that he does feel well overall, better than he has, continues to have significant bilateral peripheral edema. White blood cell count 7.3, hemoglobin 8.7, platelet count 267. Sodium 136, potassium 4.2, BUN 129 and creatinine 2.2. He continues to be on IV diu retics, Zaroxolyn was placed on hold because of the elevated BUN by nephrology. Objective - Vital Signs Vital signs: Vital Signs Temp 97.4 F L 02/15/19 09:50 Pulse 84 02/15/19 12:11 Resp 20 02/15/19 09:50 BP 102/58 02/15/19 09:50 Pulse Ox 92 L 02/15/19 09:50 Intake & Output 02/14/19 02/15/19 02/15/19 18:59 06:59 18:59 Intake Total 720 10 480 Output Total 2400 1200 Balance -1680 -1190 480 Weight 86.3 kg Intake: IV 10 Invasive Line 2 10 Oral 720 480 Output: Urine 2400 1200 Other: # Voids 1 1 # Bowel Movements 1 2 1 - Exam GENERAL EXAM: Alert, pleasant, 78-year-old male 3 L of oxygen with a pulse ox of 93% comfortable in no apparent distress. HEAD: Normocephalic/atraumatic. EYES: Normal reaction of pupils, equal size. Conjunctiva pink, sclera white. NOSE: Clear with pink turbinates. THROAT: No erythema or exudates. NECK: No masses, no JVD, no thyroid enlargement, no adenopathy. CHEST: No chest wall deformity. Symmetrical expansion. LUNGS: Equal air entry with diminished breath sounds CVS: Regular rate and rhythm, normal S1 and S2, no gallops, no murmurs, no rubs ABDOMEN: Soft, nontender. No hepatosplenomegaly, normal bowel sounds, no guarding or rigidity. EXTREMITIES: No clubbing, 1+ lower extremity edema, no cyanosis, 2+ pulses and upper and lower extremities. MUSCULOSKELETAL: Muscle strength and tone normal. SPINE: No scoliosis or deformity SKIN: No rashes CENTRAL NERVOUS SYSTEM: No focal deficits, tone is normal in all 4 extremities. PSYCHIATRIC: Alert and oriented -3. Appropriate affect. Intact judgment and insight. - Labs CBC & Chem 7: 02/15/19 06:30 02/15/19 06:30 Labs: Abnormal Lab Results - Last 24 Hours (Table) 02/14/19 02/14/19 02/15/19 Range/Units 16:57 20:35 06:18 RBC (4.30-5.90) m/uL Hgb (13.0-17.5) gm/dL Hct (39.0-53.0) % MCH (25.0-35.0) pg MCHC (31.0-37.0) g/dL RDW (11.5-15.5) % Lymphocytes # (1.0-4.8) k/uL Chloride (98-107) mmol/L Carbon Dioxide (22-30) mmol/L BUN (9-20) mg/dL Creatinine (0.66-1.25) mg/dL Glucose (74-99) mg/dL POC Glucose (mg/dL) 274 H 266 H 231 H (75-99) mg/dL Alkaline Phosphatase (38-126) U/L Albumin (3.5-5.0) g/dL 02/15/19 02/15/19 02/15/19 Range/Units 06:30 06:30 11:38 RBC 3.66 L (4.30-5.90) m/uL Hgb 9.0 L (13.0-17.5) gm/dL Hct 29.6 L (39.0-53.0) % MCH 24.4 L (25.0-35.0) pg MCHC 30.2 L (31.0-37.0) g/dL RDW 19.3 H (11.5-15.5) % Lymphocytes # 0.4 L (1.0-4.8) k/uL Chloride 90 L (98-107) mmol/L Carbon Dioxide 39 H (22-30) mmol/L BUN 138 H* (9-20) mg/dL Creatinine 2.18 H (0.66-1.25) mg/dL Glucose 133 H (74-99) mg/dL POC Glucose (mg/dL) 222 H (75-99) mg/dL Alkaline Phosphatase 499 H (38-126) U/L Albumin 3.4 L (3.5-5.0) g/dL Microbiology - Last 24 Hours (Table) 02/09/19 12:46 Blood Culture - Preliminary Blood No Growth after 120 hours Assessment and Plan Plan: Assessment: #1. Acute exacerbation of chronic systolic congestive heart failure with mildly impaired systolic function with ejection fraction 45-50% #2. Coronary artery disease with history of recent bypass grafting #3. History of COPD #4. Hyperlipidemia #5. Hypertension #6. Atrial flutter #7. GERD/reflux #8. Osteoarthritis #9. BPH #10. Slowly healing leg ulcerations, cultures pending. Plan From cardiology's perspective, we will continue current dose of IV Lasix as per nephrology. DNP note has been reviewed, I agree with a documented findings and plan of care. Patient was seen and examined.
--- NOTE | 2019-02-15 15:51 | P.PN ---
Subjective Progress Note Date: 02/15/19 This is a 78-year-old gentleman with history of coronary artery bypass grafting surgery back in December, subsequent to that he was transferred to [facility] with an infection in his leg, he did undergo a thoracentesis also at that time. Patient continues to have issues with fluid in his lungs and fluid in his legs, he has gained approximately 14 pounds of weight and can only walk short distances, without being very short of breath. The patient is currently on IV Lasix drip, his weight is down 1 kg today overall through the night last night he states that he put out a significant amount of urine. Blood pressure 132/70 with a heart rate in the 80s, 94% on 3 L of oxygen. 02/13/2019 Patient seen and examined this morning,blood pressure 112/60 with a heart rate in the 80s, 96% on room air.White blood cell count 6.6, hemoglobin 8.3, platelet count 246. Sodium 136, potassium 4.5, BUN 121 and creatinine 2.1.on IV Lasix, dosing as per nephrology. 02/14/2019 Patient was seen and examined this morning, he states that he does feel well overall, better than he has, continues to have significant bilateral peripheral edema. White blood cell count 7.3, hemoglobin 8.7, platelet count 267. Sodium 136, potassium 4.2, BUN 129 and creatinine 2.2. He continues to be on IV diu retics, Zaroxolyn was placed on hold because of the elevated BUN by nephrology. 02/15/2019 Patient was seen and examined this morning, sitting up in his chair at bedside, overall feeling well however that BUN again today has gone up. Creatinine is down to 2.1. He continues to have significant bilateral peripheral edema. Dr. Strange the kidney doctor did have a discussion with the patient today regarding ultrafiltration. The patient has agreed to proceed with this. Objective - Vital Signs Vital signs: Vital Signs Temp 97.4 F L 02/15/19 09:50 Pulse 84 02/15/19 12:11 Resp 20 02/15/19 09:50 BP 102/58 02/15/19 09:50 Pulse Ox 92 L 02/15/19 09:50 Intake & Output 02/14/19 02/15/19 02/15/19 18:59 06:59 18:59 Intake Total 720 10 480 Output Total 2400 1200 Balance -1680 -1190 480 Weight 86.3 kg Intake: IV 10 Invasive Line 2 10 Oral 720 480 Output: Urine 2400 1200 Other: # Voids 1 1 # Bowel Movements 1 2 1 - Exam GENERAL EXAM: Alert, pleasant, 78-year-old male 3 L of oxygen with a pulse ox of 93% comfortable in no apparent distress. HEAD: Normocephalic/atraumatic. EYES: Normal reaction of pupils, equal size. Conjunctiva pink, sclera white. NOSE: Clear with pink turbinates. THROAT: No erythema or exudates. NECK: No masses, no JVD, no thyroid enlargement, no adenopathy. CHEST: No chest wall deformity. Symmetrical expansion. LUNGS: Equal air entry with diminished breath sounds CVS: Regular rate and rhythm, normal S1 and S2, no gallops, no murmurs, no rubs ABDOMEN: Soft, nontender. No hepatosplenomegaly, normal bowel sounds, no guarding or rigidity. EXTREMITIES: No clubbing, 1+ lower extremity edema, no cyanosis, 2+ pulses and upper and lower extremities. MUSCULOSKELETAL: Muscle strength and tone normal. SPINE: No scoliosis or deformity SKIN: No rashes CENTRAL NERVOUS SYSTEM: No focal deficits, tone is normal in all 4 extremities. PSYCHIATRIC: Alert and oriented -3. Appropriate affect. Intact judgment and insight. - Labs CBC & Chem 7: 02/15/19 06:30 02/15/19 06:30 Labs: Abnormal Lab Results - Last 24 Hours (Table) 02/14/19 02/14/19 02/15/19 Range/Units 16:57 20:35 06:18 RBC (4.30-5.90) m/uL Hgb (13.0-17.5) gm/dL Hct (39.0-53.0) % MCH (25.0-35.0) pg MCHC (31.0-37.0) g/dL RDW (11.5-15.5) % Lymphocytes # (1.0-4.8) k/uL Chloride (98-107) mmol/L Carbon Dioxide (22-30) mmol/L BUN (9-20) mg/dL Creatinine (0.66-1.25) mg/dL Glucose (74-99) mg/dL POC Glucose (mg/dL) 274 H 266 H 231 H (75-99) mg/dL Alkaline Phosphatase (38-126) U/L Albumin (3.5-5.0) g/dL 02/15/19 02/15/19 02/15/19 Range/Units 06:30 06:30 11:38 RBC 3.66 L (4.30-5.90) m/uL Hgb 9.0 L (13.0-17.5) gm/dL Hct 29.6 L (39.0-53.0) % MCH 24.4 L (25.0-35.0) pg MCHC 30.2 L (31.0-37.0) g/dL RDW 19.3 H (11.5-15.5) % Lymphocytes # 0.4 L (1.0-4.8) k/uL Chloride 90 L (98-107) mmol/L Carbon Dioxide 39 H (22-30) mmol/L BUN 138 H* (9-20) mg/dL Creatinine 2.18 H (0.66-1.25) mg/dL Glucose 133 H (74-99) mg/dL POC Glucose (mg/dL) 222 H (75-99) mg/dL Alkaline Phosphatase 499 H (38-126) U/L Albumin 3.4 L (3.5-5.0) g/dL Microbiology - Last 24 Hours (Table) 02/09/19 12:46 Blood Culture - Preliminary Blood No Growth after 120 hours Assessment and Plan Plan: Assessment: #1. Acute exacerbation of chronic systolic congestive heart failure with mildly impaired systolic function with ejection fraction 45-50% #2. Coronary artery disease with history of recent bypass grafting #3. History of COPD #4. Hyperlipidemia #5. Hypertension #6. Atrial flutter #7. GERD/reflux #8. Osteoarthritis #9. BPH #10. Slowly healing leg ulcerations, cultures pending. Plan From cardiology's perspective, we will continue current dose of IV Lasix as per nephrology. Patient is willing to proceed with ultrafiltration as recommended by nephrology. We will continue to follow. DNP note has been reviewed, I agree with a documented findings and plan of care. Patient was seen and examined.
[2019-02-15 16:39] LABS: Glucose,Whole Blood 292 mg/dL (75-99)
[2019-02-15 16:54] LABS: Albumin 3.4 g/dL (3.5-5.0); Calcium 8.5 mg/dL (8.4-10.2); Potassium 4.5 mmol/L (3.5-5.1); Total Bilirubin 0.5 mg/dL (0.2-1.3); Total Protein 6.2 g/dL (6.3-8.2)
[2019-02-15 17:06] LABS: Anisocytosis Slight; Basophils % (A) 1 %; Eosinophils # (A) 0.4 k/uL (0-0.7); Eosinophils % (A) 6 %; HCT 29.4 % (39.0-53.0); HGB 8.8 gm/dL (13.0-17.5); Hypochromasia Marked; Lymphocytes # (A) 0.4 k/uL (1.0-4.8); Lymphocytes % (A) 6 %; MCH 24.7 pg (25.0-35.0); MCHC 30.1 g/dL (31.0-37.0); MCV 82.1 fL (80.0-100.0); Mean Platelet Volume 7.4; Monocytes # (A) 0.6 k/uL (0-1.0); Monocytes % (A) 9 %; Neutrophils # (A) 4.7 k/uL (1.3-7.7); Neutrophils % (A) 74 %; Platelet Count 216 k/uL (150-450); RBC 3.58 m/uL (4.30-5.90); RDW 19.9 % (11.5-15.5); WBC 6.3 k/uL (3.8-10.6)
[2019-02-15 21:16] LABS: Glucose,Whole Blood 238 mg/dL (75-99)
[2019-02-15] MEDS: ASPIRIN 81 MG PO SCH (21:19)
[2019-02-15] MEDS: ATORVASTATIN 80 MG TAB PO SCH (21:19)
[2019-02-15] MEDS: MELATONIN 3 MG TABLET PO SCH (21:22)
--- NOTE | 2019-02-15 22:45 | PN ---
PROGRESS NOTE This patient was seen this morning. He is sitting in bed. He is comfortable. He denies any significant complaints. Overall, patient states he is feeling better, although he continues to have significant edema from his lower extremities with weeping noted as well. 24 hour urine output charted was 3.6 L. The patient's BUN continues to increase. It is up to 138 today. Serum creatinine staying at about 2-2.1 mg/dL. I did discuss with the patient regarding options for ultrafiltration and possible 1 or 2 treatments of dialysis. He does have good urine output. Therefore, I believe this will be a very temporary measure. Patient stated that he will discuss this with his family and let us know tomorrow. Overall, appetite is not significantly changed. PHYSICAL EXAMINATION: This morning when patient was seen, blood pressure was 102/58, heart rate of about 80 per minute. He is afebrile. Examination of the heart S1, S2. Examination of the lungs, bilateral breath sounds are heard. Decreased breath sounds at the bases. Abdomen is soft, nontender. Exam of lower extremities shows edema 3+ bilaterally with weeping noted. Bilateral extremities are wrapped. LABS: Show hemoglobin 8.8, sodium 135, sodium 139, potassium 4.2, BUN 138, serum creatinine 2.1. CO2 is 39, albumin 3.4. Hemoglobin was 9.0 g/dL. ASSESSMENT: 1. Acute kidney injury, cardiorenal with improvement in volume status. However, patient remained significantly volume overloaded. I had to back off on the diuretics as the BUN is significantly elevated and continues to rise. The patient is not on any steroids currently. There is no active gastrointestinal bleed noted and I have discussed with the patient regarding need for a couple of treatments of ultrafiltration/dialysis to help with his volume status. He states that he will discuss with the rest of the family. There is no urgency at this time and we can wait until tomorrow. Blood pressure had been running on the lower side and the hydralazine has been decreased. 2. Cardiomyopathy, EF 40-45 percent. 3. Severe volume overload. 4. Anemia. No active bleeding noted at this time. Maintain patient on Aranesp. PLAN: Hold off on Zaroxolyn. The patient has had adequate output. His weight is decreasing. However, given the significantly elevated BUN, patient will benefit from a couple of treatments of dialysis with ultrafiltration to help with the volume overload. We will make the final decision tomorrow. In the meantime, continue with the current dose of Lasix. MMODL / IJN: [id number] /
[2019-02-16] MEDS: IPRATROPIUM-ALBUTEROL 3 ML NEB INHALATION SCH ×7 (00:59→23:38)
[2019-02-16 06:04] LABS: Glucose,Whole Blood 164 mg/dL (75-99)
[2019-02-16] MEDS: ASCORBIC ACID 500 MG TAB PO SCH ×2 (06:38→17:43)
[2019-02-16] MEDS: INSULIN ASPART (NovoLOG) 100 UNIT/ML VIAL SQ SCH ×4 (06:38→20:53)
[2019-02-16] MEDS: PANTOPRAZOLE 40 MG TABLET PO SCH (06:38)
[2019-02-16] MEDS: INSULIN DETEMIR (LEVEMIR) 100 UNIT/ML SYR SQ SCH (06:57)
[2019-02-16 08:02] LABS: Anisocytosis Moderate; Basophils % (A) 0 %; Eosinophils # (A) 0.5 k/uL (0-0.7); Eosinophils % (A) 8 %; HCT 30.3 % (39.0-53.0); Hypochromasia Moderate; Lymphocytes # (A) 0.4 k/uL (1.0-4.8); Lymphocytes % (A) 6 %; MCH 24.4 pg (25.0-35.0); MCHC 29.8 g/dL (31.0-37.0); MCV 81.9 fL (80.0-100.0); Mean Platelet Volume 7.2; Microcytosis Slight; Monocytes # (A) 0.5 k/uL (0-1.0); Monocytes % (A) 8 %; Neutrophils # (A) 4.9 k/uL (1.3-7.7); Neutrophils % (A) 75 %; Platelet Count 264 k/uL (150-450); RDW 20.1 % (11.5-15.5); WBC 6.5 k/uL (3.8-10.6)
[2019-02-16 09:38] LABS: Calcium 8.9 mg/dL (8.4-10.2); Potassium 4.1 mmol/L (3.5-5.1)
[2019-02-16] MEDS: MULTIVITAMINS, THERA 1 EACH TAB PO SCH (09:43)
[2019-02-16] MEDS: FERROUS SULFATE 325 MG TAB PO SCH (09:43)
[2019-02-16] MEDS: METOPROLOL TARTRATE 25 MG TAB PO SCH ×2 (09:43→17:43)
[2019-02-16] MEDS: THIAMINE 100 MG TAB PO SCH (09:43)
[2019-02-16] MEDS: SPIRONOLACTONE 25 MG TAB PO SCH (09:43)
[2019-02-16] MEDS: hydrALAZINE HCL 10 MG TAB PO SCH ×2 (09:43→20:19)
[2019-02-16] MEDS: FOLIC ACID 1 MG TAB PO SCH (09:44)
[2019-02-16] MEDS: TAMSULOSIN 0.4 MG CAP.ER.24H PO SCH ×2 (09:44→20:19)
[2019-02-16] MEDS: FUROSEMIDE 10 MG/ML 10 ML VIAL IV SCH ×2 (09:44→20:19)
[2019-02-16] MEDS: NITROGLYCERIN OINT 1 INCH/GM PACKET TOPICAL SCH ×4 (09:44→20:19)
[2019-02-16] MEDS: APIXABAN 5 MG TAB PO SCH (09:44)
[2019-02-16 09:57] LABS: INR 1.1 (<1.2); Prothrombin Time 11.4 sec (9.0-12.0)
[2019-02-16 11:05] LABS: Glucose,Whole Blood 274 mg/dL (75-99)
--- NOTE | 2019-02-16 14:10 | PN ---
PROGRESS NOTE Patient is seen for follow up for acute kidney injury on top of chronic kidney disease. I did discuss renal replacement therapy with the patient yesterday since his BUN was significantly elevated. Patient wanted to talk and discuss with his family members. This morning he states he is ready to proceed with a few treatments of hemodialysis/ultrafiltration. However, patient just received Eliquis yesterday, therefore it is discussed with Dr. Patrick, he would like to wait for at least a couple of days prior to the catheter placement. In the meantime, labs from today shows the BUN is slightly improved. Patient's diuretics were decreased yesterday. His weight continues to decrease which is at 84.7 today. Patient remains on Lasix which is at 60 IV q.12 hours. On examination today, blood pressure was 125/70, heart rate of 88 per minute. He is afebrile. Examination of the heart, S1, S2. Examination of the lungs, bilateral breath sounds are heard. Decreased breath sounds at the bases. Abdomen is soft, nontender. Examination of the lower extremities shows edema 3+ bilaterally. 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 LABS: Show sodium 138, potassium 4.1, chloride 98, CO2 of 39, BUN 136, serum creatinine 1.94, hemoglobin 9.0. ASSESSMENT: 1. Acute kidney injury, mainly cardiorenal. Renal function stable for the last 2 to 3 days. Serum creatinine staying at about 1.9 mg/dL. This seems to be his new baseline. 2. Status post ST elevated BUN, secondary to recent diuresis. The patient is not on any steroids and he does not have any evidence of ongoing gastrointestinal bleed. The BUN has improved. We were planning to proceed with UF/dialysis. However, catheter will not be paid for another two days. His numbers are already trending down. 3. Severe volume overload, status post recent diuresis with Lasix drip currently off of Lasix drip, maintained on IV Lasix that will continue. Zaroxolyn was held yesterday and we had discussed renal replacement therapy and ultrafiltration. The patient has agreed to it; however, the catheter will not be placed for another two days as patient just took the Eliquis yesterday. In the meantime, we will hold off on the Eliquis. The patient's weight continues to decrease and his numbers have also improved. Therefore, we may not need the dialysis. PLAN: Repeat labs in a.m. Continue current dose of IV Lasix. Since the catheter will not placed for another 2 days, we will continue to monitor the renal function. We will hold off on the Eliquis for now. If his renal function continues to improve with continuous decrease in his weight, we may not need to proceed with ultrafiltration and dialysis. MMODL / IJN: [id number] /
--- NOTE | 2019-02-16 14:31 | P.PN ---
Subjective This is a pleasant 78 years old male with past medical history of heart failure, atrial fibrillation, coronary artery disease, type 2 diabetes mellitus, GERD, hyperlipidemia, hypertension,bilateral venous stasis dermatitis, chronic kidney disease stage III. Who presents with signs and symptoms of acute congestive heart failure and elevated troponin. His been able with it by hander in and was started on Lasix drip. On admission also his creatinine was 1.8/2.0. Rag Washer recommended patient follow-up as an outpatient in 4-5 weeks for anemia and bone lesion. Today patient was more lethargic and sleepy however he is fully awake once been called his name. His dyspnea is improving with no chest pain. He has dry cough. No abdominal complaints or tenderness. No nausea vomiting and he starting diet well. No diarrhea. And no right upper quadrant pain or tenderness, negative Ag sign. Parenteral Lasix 60 mg 3 times a day. With indirect this is stable and his creatinine today is 2.17, sugar is controlled. Liver enzymes elevated. 02/14/2019 is more awake today, his breathing is improving, with no chest pain howev er he still have the dry cough. Patient also denies abdominal pain including no pain or tenderness in his right upper quadrant and in view of possible disease seen on CAT scan. Patient is still have bilateral leg swelling with wound on the left leg more than the right leg. Infectious disease team are following the case. Patient is hemodynamically stable. Hemoglobin 8.7. BUN is 129, creatinine 2.2. Sodium 136. Sugar is controlled. Vibrating Screed Operator team input is appreciated. Patient continued on parenteral Lasix 60 mg. 02/15/2019 Patient is much better today is awake and more alert. His coughing is improving and his breathing is easing down. He denies chest pain or abdominal pain. He 'll still has slight edema and wound in his left leg. Patient is currently on Eliquis, IV Lasix 60 mg lowered down to twice daily. Also patient is on Zaroxolyn 5 mg daily. Infectious disease input is appreciated, mostly patient will need only local wound care without antibiotics upon discharge for his leg wound. Patient might need ECF for inpatient rehab upon discharge 02/18/2019 Patient still feeling better. No chest pain or dyspnea. His lung exam looks clear. His still have some, but is improving. We have swelling in his lower extremity. He is tolerating diet well. Vital signs stable. Creatinine is stable at 1.9. BUN is 136. Sugar control is acceptable. Vibrating Screed Operator team are following the patient closely, continue with diuretics now and reassess his in 1-2 days if no improvement and consider ultrafiltration. Shae is on hold Objective - Vital Signs Vital signs: Vital Signs Temp 97.4 F L 02/16/19 12:00 Pulse 89 02/16/19 12:16 Resp 20 02/16/19 12:00 BP 125/70 02/16/19 12:00 Pulse Ox 98 02/16/19 12:00 Intake & Output 02/15/19 02/16/19 02/16/19 18:59 06:59 18:59 Intake Total 960 360 Output Total 1300 850 600 Balance -340 -850 -240 Weight 84.7 kg Intake: Oral 960 360 Output: Urine 1300 850 600 Other: Voiding Method Toilet # Voids 1 1 # Bowel Movements 1 1 - Exam GENERAL: The patient is alert and oriented x3, not in any acute distress. Well developed, well nourished. HEENT: Pupils are round and equally reacting to light. EOMI. No scleral icterus. No conjunctival pallor. Normocephalic, atraumatic. No pharyngeal erythema. No thyromegaly. CARDIOVASCULAR: S1 and S2 present. No murmurs, rubs, or gallops. -PULMONARY: Chest is clear to auscultation, bilateral basal crepitation ABDOMEN: Soft, nontender, nondistended, normoactive bowel sounds. No palpable organomegaly. MUSCULOSKELETAL: No joint swelling or deformity. -EXTREMITIES: No cyanosis, clubbing,. Bilateral leg edema NEUROLOGICAL: Gross neurological examination did not reveal any focal deficits. SKIN: No rashes. - Labs CBC & Chem 7: 02/16/19 07:38 02/16/19 07:38 Labs: Abnormal Lab Results - Last 24 Hours (Table) 02/15/19 02/15/19 02/15/19 Range/Units 16:33 16:33 16:35 RBC 3.58 L (4.30-5.90) m/uL Hgb 8.8 L (13.0-17.5) gm/dL Hct 29.4 L (39.0-53.0) % MCH 24.7 L (25.0-35.0) pg MCHC 30.1 L (31.0-37.0) g/dL RDW 19.9 H (11.5-15.5) % Lymphocytes # 0.4 L (1.0-4.8) k/uL Sodium 135 L (137-145) mmol/L Chloride 88 L (98-107) mmol/L Carbon Dioxide 40 H (22-30) mmol/L BUN 147 H* (9-20) mg/dL Creatinine 1.93 H (0.66-1.25) mg/dL Glucose 239 H (74-99) mg/dL POC Glucose (mg/dL) 292 H (75-99) mg/dL Alkaline Phosphatase 430 H (38-126) U/L Total Protein 6.2 L (6.3-8.2) g/dL Albumin 3.4 L (3.5-5.0) g/dL 02/15/19 02/16/19 02/16/19 Range/Units 21:12 06:02 07:38 RBC 3.70 L (4.30-5.90) m/uL Hgb 9.0 L (13.0-17.5) gm/dL Hct 30.3 L (39.0-53.0) % MCH 24.4 L (25.0-35.0) pg MCHC 29.8 L (31.0-37.0) g/dL RDW 20.1 H (11.5-15.5) % Lymphocytes # 0.4 L (1.0-4.8) k/uL Sodium (137-145) mmol/L Chloride (98-107) mmol/L Carbon Dioxide (22-30) mmol/L BUN (9-20) mg/dL Creatinine (0.66-1.25) mg/dL Glucose (74-99) mg/dL POC Glucose (mg/dL) 238 H 164 H (75-99) mg/dL Alkaline Phosphatase (38-126) U/L Total Protein (6.3-8.2) g/dL Albumin (3.5-5.0) g/dL 02/16/19 02/16/19 Range/Units 07:38 11:04 RBC (4.30-5.90) m/uL Hgb (13.0-17.5) gm/dL Hct (39.0-53.0) % MCH (25.0-35.0) pg MCHC (31.0-37.0) g/dL RDW (11.5-15.5) % Lymphocytes # (1.0-4.8) k/uL Sodium (137-145) mmol/L Chloride 90 L (98-107) mmol/L Carbon Dioxide 39 H (22-30) mmol/L BUN 136 H* (9-20) mg/dL Creatinine 1.94 H (0.66-1.25) mg/dL Glucose 157 H (74-99) mg/dL POC Glucose (mg/dL) 274 H (75-99) mg/dL Alkaline Phosphatase (38-126) U/L Total Protein (6.3-8.2) g/dL Albumin (3.5-5.0) g/dL Microbiology - Last 24 Hours (Table) 02/09/19 12:46 Blood Culture - Final Blood No Growth after 144 hours Assessment and Plan Assessment: Acute on chronic systolic congestive heart failure Elevated troponin History of atrial fibrillation on Eliquis History of coronary artery disease Type 2 diabetes mellitus History of GERD Hyperlipidemia Hypertension History of bilateral venous is status dermatitis Chronic kidney disease stage III Plan: This is a pleasant 78 years old male who presents because of acute CHF. Con tinue with diuretic. Continue with hander in team recommendation. Monitor creatinine.Labs and medication were reviewed.. Continue same treatment. Continue with symptomatic treatment. Resume home medication. Monitor lytes and vitals. DVT and GI prophylaxis. Further recommendations of the clinical course of the patient DVT prophylaxis: Eliquis GI Prophylaxis: Protonix PT/OT: Pending Prognosis is guarded
--- NOTE | 2019-02-16 14:32 | P.PN ---
Subjective Progress Note Date: 02/16/19 This is a 78-year-old gentleman with history of coronary artery bypass grafting surgery back in December, subsequent to that he was transferred to [facility] with an infection in his leg, he did undergo a thoracentesis also at that time. Patient continues to have issues with fluid in his lungs and fluid in his legs, he has gained approximately 14 pounds of weight and can only walk short distances, without being very short of breath. The patient is currently on IV Lasix drip, his weight is down 1 kg today overall through the night last night he states that he put out a significant amount of urine. Blood pressure 132/70 with a heart rate in the 80s, 94% on 3 L of oxygen. 02/13/2019 Patient seen and examined this morning,blood pressure 112/60 with a heart rate in the 80s, 96% on room air.White blood cell count 6.6, hemoglobin 8.3, platelet count 246. Sodium 136, potassium 4.5, BUN 121 and creatinine 2.1.on IV Lasix, dosing as per nephrology. 02/14/2019 Patient was seen and examined this morning, he states that he does feel well overall, better than he has, continues to have significant bilateral peripheral edema. White blood cell count 7.3, hemoglobin 8.7, platelet count 267. Sodium 136, potassium 4.2, BUN 129 and creatinine 2.2. He continues to be on IV diu retics, Zaroxolyn was placed on hold because of the elevated BUN by nephrology. 02/15/2019 Patient was seen and examined this morning, sitting up in his chair at bedside, overall feeling well however that BUN again today has gone up. Creatinine is down to 2.1. He continues to have significant bilateral peripheral edema. Dr. Strange the kidney doctor did have a discussion with the patient today regarding ultrafiltration. The patient has agreed to proceed with this. 02/16/2018 Patient seen and examined this morning sitting up in his chair at bedside. Anticipating ultrafiltration today.sodium 138, potassium 4.1, BUN 136 and creatinine 1.9. Objective - Vital Signs Vital signs: Vital Signs Temp 97.4 F L 02/16/19 12:00 Pulse 89 02/16/19 12:16 Resp 20 02/16/19 12:00 BP 125/70 02/16/19 12:00 Pulse Ox 98 02/16/19 12:00 Intake & Output 02/15/19 02/16/19 02/16/19 18:59 06:59 18:59 Intake Total 960 360 Output Total 1300 850 600 Balance -340 -850 -240 Weight 84.7 kg Intake: Oral 960 360 Output: Urine 1300 850 600 Other: Voiding Method Toilet # Voids 1 1 # Bowel Movements 1 1 - Exam GENERAL EXAM: Alert, pleasant, 78-year-old male 3 L of oxygen with a pulse ox of 93% comfortable in no apparent distress. HEAD: Normocephalic/atraumatic. EYES: Normal reaction of pupils, equal size. Conjunctiva pink, sclera white. NOSE: Clear with pink turbinates. THROAT: No erythema or exudates. NECK: No masses, no JVD, no thyroid enlargement, no adenopathy. CHEST: No chest wall deformity. Symmetrical expansion. LUNGS: Equal air entry with diminished breath sounds CVS: Regular rate and rhythm, normal S1 and S2, no gallops, no murmurs, no rubs ABDOMEN: Soft, nontender. No hepatosplenomegaly, normal bowel sounds, no guarding or rigidity. EXTREMITIES: No clubbing, 1+ lower extremity edema, no cyanosis, 2+ pulses and upper and lower extremities. MUSCULOSKELETAL: Muscle strength and tone normal. SPINE: No scoliosis or deformity SKIN: No rashes CENTRAL NERVOUS SYSTEM: No focal deficits, tone is normal in all 4 extremities. PSYCHIATRIC: Alert and oriented -3. Appropriate affect. Intact judgment and insight. - Labs CBC & Chem 7: 02/16/19 07:38 02/16/19 07:38 Labs: Abnormal Lab Results - Last 24 Hours (Table) 02/15/19 02/15/19 02/15/19 Range/Units 16:33 16:33 16:35 RBC 3.58 L (4.30-5.90) m/uL Hgb 8.8 L (13.0-17.5) gm/dL Hct 29.4 L (39.0-53.0) % MCH 24.7 L (25.0-35.0) pg MCHC 30.1 L (31.0-37.0) g/dL RDW 19.9 H (11.5-15.5) % Lymphocytes # 0.4 L (1.0-4.8) k/uL Sodium 135 L (137-145) mmol/L Chloride 88 L (98-107) mmol/L Carbon Dioxide 40 H (22-30) mmol/L BUN 147 H* (9-20) mg/dL Creatinine 1.93 H (0.66-1.25) mg/dL Glucose 239 H (74-99) mg/dL POC Glucose (mg/dL) 292 H (75-99) mg/dL Alkaline Phosphatase 430 H (38-126) U/L Total Protein 6.2 L (6.3-8.2) g/dL Albumin 3.4 L (3.5-5.0) g/dL 02/15/19 02/16/19 02/16/19 Range/Units 21:12 06:02 07:38 RBC 3.70 L (4.30-5.90) m/uL Hgb 9.0 L (13.0-17.5) gm/dL Hct 30.3 L (39.0-53.0) % MCH 24.4 L (25.0-35.0) pg MCHC 29.8 L (31.0-37.0) g/dL RDW 20.1 H (11.5-15.5) % Lymphocytes # 0.4 L (1.0-4.8) k/uL Sodium (137-145) mmol/L Chloride (98-107) mmol/L Carbon Dioxide (22-30) mmol/L BUN (9-20) mg/dL Creatinine (0.66-1.25) mg/dL Glucose (74-99) mg/dL POC Glucose (mg/dL) 238 H 164 H (75-99) mg/dL Alkaline Phosphatase (38-126) U/L Total Protein (6.3-8.2) g/dL Albumin (3.5-5.0) g/dL 02/16/19 02/16/19 Range/Units 07:38 11:04 RBC (4.30-5.90) m/uL Hgb (13.0-17.5) gm/dL Hct (39.0-53.0) % MCH (25.0-35.0) pg MCHC (31.0-37.0) g/dL RDW (11.5-15.5) % Lymphocytes # (1.0-4.8) k/uL Sodium (137-145) mmol/L Chloride 90 L (98-107) mmol/L Carbon Dioxide 39 H (22-30) mmol/L BUN 136 H* (9-20) mg/dL Creatinine 1.94 H (0.66-1.25) mg/dL Glucose 157 H (74-99) mg/dL POC Glucose (mg/dL) 274 H (75-99) mg/dL Alkaline Phosphatase (38-126) U/L Total Protein (6.3-8.2) g/dL Albumin (3.5-5.0) g/dL Microbiology - Last 24 Hours (Table) 02/09/19 12:46 Blood Culture - Final Blood No Growth after 144 hours Assessment and Plan Plan: Assessment: #1. Acute exacerbation of chronic systolic congestive heart failure with mildly impaired systolic function with ejection fraction 45-50% #2. Coronary artery disease with history of recent bypass grafting #3. History of COPD #4. Hyperlipidemia #5. Hypertension #6. Atrial flutter #7. GERD/reflux #8. Osteoarthritis #9. BPH #10. Slowly healing leg ulcerations, cultures pending. Plan From cardiology's perspective, we will continue current dose of IV Lasix as per nephrology. Patient is willing to proceed with ultrafiltration as recommended by nephrology. We will continue to follow. DNP note has been reviewed, I agree with a documented findings and plan of care. Patient was seen and examined.
[2019-02-16] MEDS: DARBEPOETIN ALFA 40 MCG/0.4 ML SYRINGE SQ SCH (15:12)
[2019-02-16 16:47] LABS: Glucose,Whole Blood 259 mg/dL (75-99)
[2019-02-16 19:56] LABS: Hepatitis A Antibody IgM Non-Reactive (Non-Reactive); Hepatitis B Core IgM Non-Reactive (Non-Reactive)
[2019-02-16] MEDS: MELATONIN 3 MG TABLET PO SCH (20:19)
[2019-02-16] MEDS: ATORVASTATIN 80 MG TAB PO SCH (20:19)
[2019-02-16] MEDS: ASPIRIN 81 MG PO SCH (20:19)
[2019-02-16 20:34] LABS: Glucose,Whole Blood 297 mg/dL (75-99)
[2019-02-17] MEDS: IPRATROPIUM-ALBUTEROL 3 ML NEB INHALATION SCH ×6 (04:03→23:25)
[2019-02-17 06:20] LABS: Glucose,Whole Blood 153 mg/dL (75-99)
[2019-02-17] MEDS: INSULIN ASPART (NovoLOG) 100 UNIT/ML VIAL SQ SCH ×4 (06:50→21:07)
[2019-02-17] MEDS: ASCORBIC ACID 500 MG TAB PO SCH ×2 (06:50→17:14)
[2019-02-17] MEDS: PANTOPRAZOLE 40 MG TABLET PO SCH (06:50)
[2019-02-17] MEDS: INSULIN DETEMIR (LEVEMIR) 100 UNIT/ML SYR SQ SCH (07:17)
[2019-02-17] MEDS: hydrALAZINE HCL 10 MG TAB PO SCH ×2 (07:37→21:06)
[2019-02-17] MEDS: THIAMINE 100 MG TAB PO SCH (07:37)
[2019-02-17] MEDS: FERROUS SULFATE 325 MG TAB PO SCH (07:37)
[2019-02-17] MEDS: SPIRONOLACTONE 25 MG TAB PO SCH (07:37)
[2019-02-17] MEDS: TAMSULOSIN 0.4 MG CAP.ER.24H PO SCH ×2 (07:37→21:07)
[2019-02-17] MEDS: METOPROLOL TARTRATE 25 MG TAB PO SCH ×2 (07:37→17:14)
[2019-02-17] MEDS: FUROSEMIDE 10 MG/ML 10 ML VIAL IV SCH ×2 (07:37→21:05)
[2019-02-17] MEDS: MULTIVITAMINS, THERA 1 EACH TAB PO SCH (07:37)
[2019-02-17] MEDS: NITROGLYCERIN OINT 1 INCH/GM PACKET TOPICAL SCH ×4 (07:38→21:07)
[2019-02-17] MEDS: FOLIC ACID 1 MG TAB PO SCH (07:40)
[2019-02-17 07:45] LABS: Calcium 8.7 mg/dL (8.4-10.2); Potassium 3.9 mmol/L (3.5-5.1)
--- NOTE | 2019-02-17 09:32 | PN ---
PROGRESS NOTE Patient is seen for followup for acute kidney injury, mainly cardiorenal. He is status post Lasix drip. Patient continues to have significant edema and weakness. His BUN was up to 140 and patient's Zaroxolyn was held. He is currently maintained on IV Lasix q.12 hours. I discussed starting renal replacement therapy. Patient has agreed. However, he received Eliquis yesterday, therefore the catheter will not be placed until tomorrow. In the meantime, his BUN has improved. Patient's weight continues to decline. However, he continues to have significant edema. Therefore, we will plan to dialyze him tomorrow unless he is significantly improved. Patient has had prolonged hospitalization with significant volume overload, which has not been easy to treat. On examination, blood pressure is 121/67, heart rate 82 per minute. He is afebrile. Examination of the heart, S1, S2. Examination of the lungs, decreased breath sounds at the bases. Abdomen is soft, nontender. Examination of the lower extremities shows edema 3+ bilaterally. SAFETY ASSISTANT exam grossly intact. LABS: Show sodium 139, potassium 3.9, BUN 131, serum creatinine 1.95. ASSESSMENT: 1. Acute kidney injury, cardiorenal with significantly elevated BUN. Plan for hemodialysis tomorrow after the dialysis catheter is placed. I believe this will be temporary as patient continues to have good urine output. I will maintain the Lasix 60 mg q.12 hours. Zaroxolyn has been discontinued. 2. Cardiomyopathy, ejection fraction of about 40%. 3. Disproportionately elevated BUN secondary to recent diuresis. 4. Anemia. No significant bleeding noted. The patient is maintained on Aranesp. 5. Coronary artery disease with history of recent bypass grafting. 6. Lower extremity ulcerations. PLAN: We will plan for couple of treatments of hemodialysis and ultrafiltration tomorrow once the catheter is placed tomorrow. MMODL / IJN: [id number] /
[2019-02-17 11:24] LABS: Glucose,Whole Blood 219 mg/dL (75-99)
--- NOTE | 2019-02-17 14:20 | P.PN ---
Subjective This is a pleasant 78 years old male with past medical history of heart failure, atrial fibrillation, coronary artery disease, type 2 diabetes mellitus, GERD, hyperlipidemia, hypertension,bilateral venous stasis dermatitis, chronic kidney disease stage III. Who presents with signs and symptoms of acute congestive heart failure and elevated troponin. His been able with it by marketing operations coordinator and was started on Lasix drip. On admission also his creatinine was 1.8/2.0. Sampling Expert recommended patient follow-up as an outpatient in 4-5 weeks for anemia and bone lesion. Today patient was more lethargic and sleepy however he is fully awake once been called his name. His dyspnea is improving with no chest pain. He has dry cough. No abdominal complaints or tenderness. No nausea vomiting and he starting diet well. No diarrhea. And no right upper quadrant pain or tenderness, negative Ag sign. Parenteral Lasix 60 mg 3 times a day. With indirect this is stable and his creatinine today is 2.17, sugar is controlled. Liver enzymes elevated. 02/14/2019 is more awake today, his breathing is improving, with no chest pain howev er he still have the dry cough. Patient also denies abdominal pain including no pain or tenderness in his right upper quadrant and in view of possible disease seen on CAT scan. Patient is still have bilateral leg swelling with wound on the left leg more than the right leg. Infectious disease team are following the case. Patient is hemodynamically stable. Hemoglobin 8.7. BUN is 129, creatinine 2.2. Sodium 136. Sugar is controlled. Etiologist team input is appreciated. Patient continued on parenteral Lasix 60 mg. 02/15/2019 Patient is much better today is awake and more alert. His coughing is improving and his breathing is easing down. He denies chest pain or abdominal pain. He 'll still has slight edema and wound in his left leg. Patient is currently on Eliquis, IV Lasix 60 mg lowered down to twice daily. Also patient is on Zaroxolyn 5 mg daily. Infectious disease input is appreciated, mostly patient will need only local wound care without antibiotics upon discharge for his leg wound. Patient might need ECF for inpatient rehab upon discharge 02/16/2019 Patient still feeling better. No chest pain or dyspnea. His lung exam looks clear. His still have some, but is improving. We have swelling in his lower extremity. He is tolerating diet well. Vital signs stable. Creatinine is stable at 1.9. BUN is 136. Sugar control is acceptable. Etiologist team are following the patient closely, continue with diuretics now and reassess his in 1-2 days if no improvement and consider ultrafiltration. Jenniferquis is on hold 02/17/2019 Patient is clinically stable with no chest pain or dyspnea. He is feeling more strong. This allowed some dry cough. Leg edema and wound in the lower extremity looks the same. Is currently on Lasix intravenously twice daily. Ne phrology team are following the case closely and plan for ultrafiltration therapy. Patient might go for permacath placement tomorrow. Objective - Vital Signs Vital signs: Vital Signs Temp 97.5 F L 02/17/19 11:11 Pulse 82 02/17/19 12:00 Resp 18 02/17/19 12:00 BP 109/68 02/17/19 11:11 Pulse Ox 97 02/17/19 11:11 Intake & Output 02/16/19 02/17/19 02/17/19 18:59 06:59 18:59 Intake Total 360 120 Output Total 720 1700 900 Balance -360 -1700 -780 Weight 84.6 kg Intake: Oral 360 120 Output: Urine 720 1700 900 Other: # Voids 1 1 2 # Bowel Movements 1 1 1 - Exam GENERAL: The patient is alert and oriented x3, not in any acute distress. Well developed, well nourished. HEENT: Pupils are round and equally reacting to light. EOMI. No scleral icterus. No conjunctival pallor. Normocephalic, atraumatic. No pharyngeal erythema. No thyromegaly. CARDIOVASCULAR: S1 and S2 present. No murmurs, rubs, or gallops. -PULMONARY: Chest is clear to auscultation, bilateral basal crepitation ABDOMEN: Soft, nontender, nondistended, normoactive bowel sounds. No palpable organomegaly. MUSCULOSKELETAL: No joint swelling or deformity. -EXTREMITIES: No cyanosis, clubbing,. Bilateral leg edema NEUROLOGICAL: Gross neurological examination did not reveal any focal deficits. SKIN: No rashes. - Labs CBC & Chem 7: 02/16/19 07:38 02/17/19 06:51 Labs: Abnormal Lab Results - Last 24 Hours (Table) 06/13/19 06/13/19 06/14/19 Range/Units 16:46 20:33 06:19 Chloride (98-107) mmol/L Carbon Dioxide (22-30) mmol/L BUN (9-20) mg/dL Creatinine (0.66-1.25) mg/dL Glucose (74-99) mg/dL POC Glucose (mg/dL) 259 H 297 H 153 H (75-99) mg/dL 02/17/19 02/17/19 Range/Units 06:51 11:22 Chloride 90 L (98-107) mmol/L Carbon Dioxide 40 H (22-30) mmol/L BUN 131 H* (9-20) mg/dL Creatinine 1.95 H (0.66-1.25) mg/dL Glucose 106 H (74-99) mg/dL POC Glucose (mg/dL) 219 H (75-99) mg/dL Assessment and Plan Assessment: Acute on chronic systolic congestive heart failure Elevated troponin History of atrial fibrillation on Eliquis History of coronary artery disease Type 2 diabetes mellitus History of GERD Hyperlipidemia Hypertension History of bilateral venous is status dermatitis Chronic kidney disease stage III Plan: This is a pleasant 78 years old male who presents because of acute CHF. Cont inue with diuretic. Continue with marketing operations coordinator team recommendation. Monitor creatinine.Labs and medication were reviewed.. Continue same treatment. Continue with symptomatic treatment. Resume home medication. Monitor lytes and vitals. DVT and GI prophylaxis. Further recommendations of the clinical course of the patient DVT prophylaxis: Eliquis GI Prophylaxis: Protonix PT/OT: Pending Prognosis is guarded
--- NOTE | 2019-02-17 16:49 | P.PN ---
Subjective Progress Note Date: 02/17/19 This 78-year-old gentleman with history of chronic kidney disease was admitted to the hospital with increasing shortness of breath and evidence of congestive heart failure. Patient has been IV Lasix. Patient had about 4.4 L output over the last 24 hours. Patient is feeling better. Patient still has significant edema. We'll continue current medical therapy. We'll follow the recommendation of the chief crna regarding diuretic usage. We'll continue IV Lasix drip. Today and possible change to IV push tomorrow. Patient is also on metolazone. We'll follow electrolytes. 02/17/2019: This patient is admitted with congestive heart failure and evidence of edema and ulceration. Has been on IV diuretics. Patient still has significant fluid challenge. Patient is waiting to have dialysis and ult rafiltration. This is being scheduled for tomorrow. Otherwise patient seems clinically stable Objective - Vital Signs Vital signs: Vital Signs Temp 97.9 F 02/17/19 15:24 Pulse 82 02/17/19 15:48 Resp 18 02/17/19 15:43 BP 114/64 02/17/19 15:24 Pulse Ox 96 02/17/19 15:24 Intake & Output 02/16/19 02/17/19 02/17/19 18:59 06:59 18:59 Intake Total 360 120 Output Total 720 1700 900 Balance -360 -1700 -780 Weight 84.6 kg Intake: Oral 360 120 Output: Urine 720 1700 900 Other: # Voids 1 1 2 # Bowel Movements 1 1 1 - Exam GENERAL EXAM: Patient is alert and oriented and doesn't appear to be in any acute distress HEENT: Normocephalic. Normal reaction of pupils, equal size, normal range of extraocular motion. No erythema or exudates in the throat. NECK: No masses, no nuchal rigidity. CHEST: No chest wall deformity. LUNGS:. Excellent defaults HEART: S1 and S2 normal with no audible mumurs or gallops. Regular rhythm, femorals equal on both sides.. ABDOMEN: No hepatosplenomegaly, normal bowel sounds, no guarding or rigidity. SKIN: No rashes CENTRAL NERVOUS SYSTEM: No focal deficits. EXTREMITIES: Resolving edema - Labs CBC & Chem 7: 02/16/19 07:38 02/17/19 06:51 Labs: Abnormal Lab Results - Last 24 Hours (Table) 02/16/19 02/16/19 02/17/19 Range/Units 16:46 20:33 06:19 Chloride (98-107) mmol/L Carbon Dioxide (22-30) mmol/L BUN (9-20) mg/dL Creatinine (0.66-1.25) mg/dL Glucose (74-99) mg/dL POC Glucose (mg/dL) 259 H 297 H 153 H (75-99) mg/dL 02/17/19 02/17/19 Range/Units 06:51 11:22 Chloride 90 L (98-107) mmol/L Carbon Dioxide 40 H (22-30) mmol/L BUN 131 H* (9-20) mg/dL Creatinine 1.95 H (0.66-1.25) mg/dL Glucose 106 H (74-99) mg/dL POC Glucose (mg/dL) 219 H (75-99) mg/dL Assessment and Plan Plan: Continue with current treatment of IV Lasix drip. Follow elect lites closely. May change to IV Lasix push from tomorrow. 02/17/2019: Patient is clinically stable. Significant edema still present. Jonathan biswas for dialysis and ultrafiltration which is being planned for tomorrow.
[2019-02-17 17:13] LABS: Glucose,Whole Blood 214 mg/dL (75-99)
[2019-02-17 20:55] LABS: Glucose,Whole Blood 198 mg/dL (75-99)
[2019-02-17] MEDS: ATORVASTATIN 80 MG TAB PO SCH (21:06)
[2019-02-17] MEDS: ASPIRIN 81 MG PO SCH (21:06)
[2019-02-17] MEDS: MELATONIN 3 MG TABLET PO SCH (21:07)
--- NOTE | 2019-02-18 00:25 | P.PN ---
Subjective Progress Note Date: 02/17/19 78-year-old gentleman with a known history of coronary disease who in November 2018 suffered a non-ST elevated myocardial infarction. Eversion at the present time reveal evidence of severe coronary disease and constantly was taken to the operating room and a her artery bypass graft procedure was performed including GONZALEZ to LAD as well as saphenous grafts from aorta to the first obtuse marginal as well as the distal PDA. The patient postoperatively had significant difficulties with effusion and underwent thoracentesis on 2 events. Eventually improved and was sent to rehabilitation. As related after his discharge from rehab went to the home setting but there was difficulties with the transition. The family relates that the patient is a and receives his medications from that source. Apparently time of his discharge he was at least 4 days before they're able to get most of his medications according his insulin for use at home. The patient then started to show some improvement. He had physical therapy session. The following day he became miserable with severe pain especi ally into his left leg. It escalated the point that he could not walk and constantly his family brought him to the emergency center and he was admitted. He had treatment of his underlying pulmonary disease, heart failure and his leg ulcerations. He again transitioned out of the hospital. He has not done well. He is continuing to have difficulty with increasing weight, increasing shortness of breath, significant generalized weakness with attempts to ambulate and constantly was again brought back to Hospital & evidence of congestive heart failure. He is now on a Lasix drip. Request for wound care was placed. The patient coughs readily short of breath and does not feel well overall. He is denying chest pain. 02/13 2019 the patient is having further improvement. He is much less short of breath is emeses had some diuresis. Still has extensive lower extremity edema. No chest pain at this time. 02/14/2019 reveals evidence of further improvement. Lower extremity edema is improved drainage from the ulcerations improved shortness of breath is improved continues to follow with cardiology. 02/17/2019 patient continues to have improvement. Edema has improved. It appears that plans are in place for transfer to rehab facility. He is more comfortable and not having complaints of discomfort with his ulceration. Objective - Vital Signs Vital signs: Vital Signs Temp 98.0 F 02/17/19 23:13 Pulse 80 02/17/19 23:13 Resp 17 02/17/19 23:13 BP 112/58 02/17/19 23:13 Pulse Ox 97 02/17/19 23:13 Intake & Output 02/17/19 02/17/19 02/18/19 06:59 18:59 06:59 Intake Total 360 Output Total 1700 900 350 Balance -1700 -540 -350 Weight 84.6 kg Intake: Oral 360 Output: Urine 1700 900 350 Other: Voiding Method Toilet # Voids 1 2 1 # Bowel Movements 1 1 1 - Exam HEENT: Anicteric conjunctiva are pink and moist nasal mucosa grossly intact without significant lesions, there is no thrush. Neck: The neck is supple without significant lymphadenopathy or thyromegaly. Lungs: Good bilateral air entry without significant crackles or wheezing. There is no significant bronchial sounds. There is no egophony or dullness. Heart: Regular rate and rhythm with an audible S1-S2, no S3 no S4. There is no significant murmur click or rub, PMI was nondisplaced. Abdomen: Positive bowel sounds soft and nontender without palpable masses or organomegaly. There was no guarding or rebound. Extremities: Upper extremities with diffuse small healing ecchymosis. The lower extremities have significant edema but there is marked improvement of the prior vein harvest sites. Ecchymosis is all resolved. The left lower extremity continues to have the open ulceration the lateral surface measuring approximately 3 x 3 x 0.2 cm. It is tender to touch. There is minimal surrounding erythema and little drainage noticed on the dressing at this time. Right lower extremity has edema. Neuro: Awake alert oriented to person place and time. There are no acute new gross focal sensory motor deficits. - Labs CBC & Chem 7: 02/16/19 07:38 02/17/19 06:51 Labs: Abnormal Lab Results - Last 24 Hours (Table) 02/17/19 02/17/19 02/17/19 Range/Units 06: 06:51 11:22 Chloride 90 L (98-107) mmol/L Carbon Dioxide 40 H (22-30) mmol/L BUN 131 H* (9-20) mg/dL Creatinine 1.95 H (0.66-1.25) mg/dL Glucose 106 H (74-99) mg/dL POC Glucose (mg/dL) 153 H 219 H (75-99) mg/dL 02/17/19 02/17/19 Range/Units 17:06 20:52 Chloride (98-107) mmol/L Carbon Dioxide (22-30) mmol/L BUN (9-20) mg/dL Creatinine (0.66-1.25) mg/dL Glucose (74-99) mg/dL POC Glucose (mg/dL) 214 H 198 H (75-99) mg/dL Laboratory Results WBC 6.5 k/uL (3.8-10.6) 02/16/19 07:38 RBC 3.70 m/uL (4.30-5.90) L 02/16/19 07:38 Hgb 9.0 gm/dL (13.0-17.5) L 02/16/19 07:38 Hct 30.3 % (39.0-53.0) L 02/16/19 07:38 MCV 81.9 fL (80.0-100.0) 02/16/19 07:38 MCH 24.4 pg (25.0-35.0) L 02/16/19 07:38 MCHC 29.8 g/dL (31.0-37.0) L 02/16/19 07:38 RDW 20.1 % (11.5-15.5) H 02/16/19 07:38 Plt Count 264 k/uL (150-450) 02/16/19 07:38 Neutrophils % 75 % 02/16/19 07:38 Lymphocytes % 6 % 02/16/19 07:38 Monocytes % 8 % 02/16/19 07:38 Eosinophils % 8 % 02/16/19 07:38 Basophils % 0 % 02/16/19 07:38 Neutrophils # 4.9 k/uL (1.3-7.7) 02/16/19 07:38 Lymphocytes # 0.4 k/uL (1.0-4.8) L 02/16/19 07:38 Monocytes # 0.5 k/uL (0-1.0) 02/16/19 07:38 Eosinophils # 0.5 k/uL (0-0.7) 02/16/19 07:38 Basophils # 0.0 k/uL (0-0.2) 02/16/19 07:38 Hypochromasia Moderate 02/16/19 07:38 Poikilocytosis Slight 02/12/19 05:48 Anisocytosis Moderate 02/16/19 07:38 Microcytosis Slight 02/16/19 07:38 PT 11.4 sec (9.0-12.0) 02/16/19 07:38 INR 1.1 (<1.2) 02/16/19 07:38 APTT 27.4 sec (22.0-30.0) 02/08/19 12:36 Sodium 139 mmol/L (137-145) 02/17/19 06:51 Potassium 3.9 mmol/L (3.5-5.1) 02/17/19 06:51 Chloride 90 mmol/L (98-107) L 02/17/19 06:51 Carbon Dioxide 40 mmol/L (22-30) H 02/17/19 06:51 Anion Gap 9 mmol/L 02/17/19 06:51 BUN 131 mg/dL (9-20) H* 02/17/19 06:51 Creatinine 1.95 mg/dL (0.66-1.25) H 02/17/19 06:51 Est GFR (CKD-EPI)AfAm 38 (>60 ml/min/1.73 sqM) 02/17/19 06:51 Est GFR (CKD-EPI)NonAf 33 (>60 ml/min/1.73 sqM) 02/17/19 06:51 Glucose 106 mg/dL (74-99) H 02/17/19 06:51 POC Glucose (mg/dL) 198 mg/dL (75-99) H 02/17/19 20:52 POC Glu Screen Printing Inspector ID Sloane Betancourt 02/17/19 20:52 Calcium 8.7 mg/dL (8.4-10.2) 02/17/19 06:51 Phosphorus 5.6 mg/dL (2.5-4.5) H 02/09/19 12:46 Magnesium 2.3 mg/dL (1.6-2.3) 02/13/19 06:52 Iron 18 ug/dL (65-175) L 02/09/19 12:53 TIBC 311 ug/dL (228-460) 02/09/19 12:53 Iron Saturation 5.79 (15.00-50.00) L 02/09/19 12:53 Ferritin 98.0 ng/mL (22.0-322.0) 02/09/19 12:53 Total Bilirubin 0.5 mg/dL (0.2-1.3) 02/15/19 16:33 AST 29 U/L (17-59) 02/15/19 16:33 ALT 38 U/L (21-72) 02/15/19 16:33 Alkaline Phosphatase 430 U/L (38-126) H 02/15/19 16:33 Troponin I 0.062 ng/mL (0.000-0.034) H* 02/09/19 09:16 NT-Pro-B Natriuret Pep 90044 pg/mL 02/08/19 12:36 Total Protein 6.2 g/dL (6.3-8.2) L 02/15/19 16:33 Albumin 3.4 g/dL (3.5-5.0) L 02/15/19 16:33 Free PSA 0.65 ng/mL 02/10/19 06:04 % Free PSA 19 % 02/10/19 06:04 Total PSA 3.4 ng/mL (<=4.0) 02/10/19 06:04 Vit D 1,25-Dihydroxy 35 pg/mL (20 - 79) 02/09/19 12:46 Urine Color Light Yellow 02/09/19 16:29 Urine Appearance Clear (Clear) 02/09/19 16:29 Urine pH 5.0 (5.0-8.0) 02/09/19 16:29 Ur Specific [place] 1.008 (1.001-1.035) 02/09/19 16:29 Urine Protein 1+ (Negative) H 02/09/19 16:29 Urine Glucose (UA) Negative (Negative) 02/09/19 16:29 Urine Ketones Negative (Negative) 02/09/19 16:29 Urine Blood Trace (Negative) H 02/09/19 16:29 Urine Nitrite Negative (Negative) 02/09/19 16:29 Urine Bilirubin Negative (Negative) 02/09/19 16:29 Urine Urobilinogen <2.0 mg/dL (<2.0) 02/09/19 16:29 Ur Leukocyte Esterase Negative (Negative) 02/09/19 16:29 Urine RBC 6 /hpf (0-5) H 02/09/19 16:29 Urine WBC 1 /hpf (0-5) 02/09/19 16:29 Urine Bacteria Rare /hpf (None) H 02/09/19 16:29 Urine Mucus Rare /hpf (None) H 02/09/19 16:29 Hepatitis A IgM Ab Non-Reactive (Non-Reactive) 02/16/19 07:38 Hep Bs Antigen Non-Reactive (Non-Reactive) 02/16/19 07:38 Hep B Core IgM Ab Non-Reactive (Non-Reactive) 02/16/19 07:38 Hep C IgG Ab Non-Reactive (Non-Reactive) 02/16/19 07:38 Microbiology 02/09/19 12:46 Blood Blood Culture - Final No Growth after 144 hours 02/09/19 18:30 Leg - Right Gram Stain - Final 02/09/19 18:30 Leg - Right Wound Culture - Final 02/09/19 18:30 Leg - Left Gram Stain - Final 02/09/19 18:30 Leg - Left Wound Culture - Final Assessment and Plan (1) Acute on chronic systolic heart failure Current Visit: Yes Status: Acute Code(s): I50.23 - ACUTE ON CHRONIC SYSTOLIC (CONGESTIVE) HEART FAILURE SNOMED Code(s): 765775844 (2) Chronic renal failure syndrome Current Visit: Yes Status: Acute Code(s): N18.9 - CHRONIC KIDNEY DISEASE, UNSPECIFIED SNOMED Code(s): 14135289 (3) Leg ulcer, left Narrative/Plan: 78-year-old male has a history of significant underlying coronary artery disease status post CABG with ongoing difficulties with acute on chronic systolic congestive heart failure. Chronic volume overload postoperatively lower extremity edema in ulcerations. Currently more severe ulcerations of left leg than the right. Local wound care with absorptive silver dressing is requested for both legs. Recent culture showed evidence of Pseudomonas and Klebsiella as well as Providencia thus will utilize cefepime for now while cultures are pending. Patient is receiving Lasix via drip and has multiple consultants. Elevation of the limbs at rest as well as compression is being utilized at this time. Cultures will direct antibiotic therapy at discharge. 02/13/2019 reveals the patient to having some improvement of his congestive heart failure lower extremity edema with volume overload. Is feeling somewhat better. There are no other new acute changes cultures are negative at this point in time. He is being treated with local wound care without evidence of the extensive infection at this time. Elevation limbs as he can tolerate is helpful with the aggressive treatment of his congestive heart failure and lower extremity edema. 02/14/2019 patient is having further improvement of his significant heart failure and the result lower extremity edema. He is less short of breath but is still fatigued and has malaise. Lower extremities ulcerations persist but have less drainage tolerating local wound care well. Cultures are negative so far. Will not likely need any ongoing antibiotic therapy after discharge other than local wound care. 02/17/2019 patient is having further improvement of his edema and shortness of breath. Discharge planning is working toward his rehab placement at the time of discharge. Continue with local wound care which is the silver alginate to the limb Enzo Q Wednesday elevate the limb while he is at rest. No evidence of any ongoing infection at that site Current Visit: No Status: Acute Code(s): L97.929 - NON-PRS CHRONIC ULC UNSP PRT OF L LOW LEG W UNSP SEVERITY SNOMED Code(s): 67403022 (4) Bilateral lower extremity edema Current Visit: Yes Status: Acute Code(s): R60.0 - LOCALIZED EDEMA SNOMED Code(s): 546777653
[2019-02-18] MEDS: IPRATROPIUM-ALBUTEROL 3 ML NEB INHALATION SCH ×6 (02:49→23:08)
[2019-02-18] MEDS: ASCORBIC ACID 500 MG TAB PO SCH ×2 (06:30→12:27)
[2019-02-18] MEDS: INSULIN DETEMIR (LEVEMIR) 100 UNIT/ML SYR SQ SCH (06:30)
[2019-02-18] MEDS: PANTOPRAZOLE 40 MG TABLET PO SCH (06:30)
[2019-02-18] MEDS: INSULIN ASPART (NovoLOG) 100 UNIT/ML VIAL SQ SCH ×4 (06:30→22:14)
[2019-02-18 06:32] LABS: Glucose,Whole Blood 142 mg/dL (75-99)
[2019-02-18 07:22] LABS: Calcium 8.9 mg/dL (8.4-10.2); Potassium 3.9 mmol/L (3.5-5.1)
[2019-02-18] MEDS ORDERED: LIDOCAINE 2% INJ 20 MG/ML SQ ONE (08:13)
--- NOTE | 2019-02-18 08:16 | CONS ---
CONSULTATION This is a 78-year-old gentleman who has been admitted with chronic kidney failure. The patient has a history of coronary artery disease, post coronary artery bypass. Patient's BUN creatinine is high. We were consulted for placement of urgent dialysis catheter. PAST MEDICAL HISTORY: History of atrial fibrillation on Eliquis, coronary artery disease, post bypass. PHYSICAL EXAMINATION: On examination, patient was seen in his room in sitting position, short of breath. Neck is supple. Trachea is in center. Chest bilateral rhonchi. ABDOMEN: Soft. Femoral pulses are present. PLAN: Placement of urgent dialysis catheter. We have stopped Eliquis prior 2 days ago. MMODL / IJN: [id number] /
--- NOTE | 2019-02-18 08:29 | P.PCN ---
Description of Procedure: Preoperative diagnoses is acute chronic renal failure Postoperative same Procedure patient brought to the Control Technician right groin was prepped and draped applied sterile manner 1% lidocaine for an infected right groin. Ultrasound- guided micropuncture introducer right common femoral vein and micropuncture guidewire passed. After that we passed a dilator on the top of guidewire and we passed a 20 same dialysis catheter on the top of guidewire flushed with heparin saline and and secured with 3-0 nylon dressing applied patient are to the procedure well
[2019-02-18] MEDS ORDERED: fentaNYL (PF) 50 MCG/ML 2 ML AMP IVP ONE (08:33)
[2019-02-18] MEDS ORDERED: SODIUM CHLORIDE 0.9% 500 ML 500 ML IV ONE (08:33)
--- NOTE | 2019-02-18 11:08 | P.PN ---
Subjective Progress Note Date: 02/18/19 Principal diagnosis: This is a 78-year-old male seen in consultation because of chronic kidney disease stage III, acute kidney injury with cardiorenal syndrome. He came in because of edema. He has been diuresing in the 2-3 L range for the last few days yesterday was 2049. He feels fatigued and tired did not sleep last night. In spite of this he has a great appetite. No nausea vomiting. He has mild to moderate edema. His creatinine remained stable at 1.19 but is dealing continues to go up and is 138 this morning. Additionally he has significant metabolic alkalosis with bicarb being 40. He is currently on Lasix 60 IV every 12, and Aldactone 25 once a day He is known with atrial fibrillation coronary artery disease diabetes hypertension lower extremity cellulitis and ulcers recently, pleural effusions, status post coronary artery bypass graft in the past. Objective - Vital Signs Vital signs: Vital Signs Temp 98.0 F 02/17/19 23:13 Pulse 80 02/18/19 09:30 Resp 18 02/18/19 09:00 BP 130/66 02/18/19 09:00 Pulse Ox 100 02/18/19 09:00 Intake & Output 02/17/19 02/18/19 02/18/19 18:59 06:59 18:59 Intake Total 360 150 Output Total 900 1150 Balance -540 -1150 150 Weight 81.3 kg Intake: IV 150 Oral 360 Output: Urine 900 1150 Other: Voiding Method Toilet # Voids 2 1 # Bowel Movements 1 1 on examination is awake alert oriented. HEENT exam no JVP in neck is supple no facial asymmetry There is mild hepatojugular reflux. Lungs are clear to auscultation with an occasional fine crackle at bases not clear but cough. Heart sounds are unremarkable for any murmur rub gallop Abdomen is soft nontender Extremity exam was mild edema. Neurologically awake alert oriented. - Labs CBC & Chem 7: 02/16/19 07:38 02/18/19 05:54 Labs: Abnormal Lab Results - Last 24 Hours (Table) 02/17/19 02/17/19 02/17/19 Range/Units 11:22 17:06 20:52 Chloride (98-107) mmol/L Carbon Dioxide (22-30) mmol/L BUN (9-20) mg/dL Creatinine (0.66-1.25) mg/dL Glucose (74-99) mg/dL POC Glucose (mg/dL) 219 H 214 H 198 H (75-99) mg/dL 02/18/19 02/18/19 Range/Units 05:54 06:29 Chloride 90 L (98-107) mmol/L Carbon Dioxide 40 H (22-30) mmol/L BUN 138 H* (9-20) mg/dL Creatinine 1.93 H (0.66-1.25) mg/dL Glucose 116 H (74-99) mg/dL POC Glucose (mg/dL) 142 H (75-99) mg/dL Assessment and Plan Plan: Impression 1. Cardiorenal syndrome, with acute kidney injury. Creatinine is stable at 1.93 with BUN going up disproportionately to 138 this morning, good urine output of 205 0 mL on current dose of 60 mg of Lasix IV every 12. 2. States was insertion of Breezy in the right groin for dialysis today. 3. History of chronic kidney disease secondary to nephrosclerosis and diabetes mellitus with proteinuria with baseline, 1-2+ proteinuria not quantified possibly diabetic nephropathy additionally. Baseline creatinine of 1.6 g to 2 mg. 4. History of coronary artery disease, history of CABG recently 12/08/2018 as well as stents previous to that, atrial fibrillation, heart failure. 5. Diabetes mellitus. 6. Metabolic alkalosis from diuresis Recommendation 1. Will dialyze him today for 20 half hours with the slow blood flow of 250 mL. We will reassess need for dialysis tomorrow 2. Monitor bicarb, postdialysis expected to improve 3. Patient accepts dialysis and is aware of the risks and benefits.
[2019-02-18] MEDS: FUROSEMIDE 10 MG/ML 10 ML VIAL IV SCH ×2 (11:11→20:38)
[2019-02-18 12:16] LABS: Glucose,Whole Blood 172 mg/dL (75-99)
[2019-02-18] MEDS: hydrALAZINE HCL 10 MG TAB PO SCH ×2 (12:27→20:38)
[2019-02-18] MEDS: FOLIC ACID 1 MG TAB PO SCH (12:27)
[2019-02-18] MEDS: TAMSULOSIN 0.4 MG CAP.ER.24H PO SCH ×2 (12:28→20:37)
[2019-02-18] MEDS: FERROUS SULFATE 325 MG TAB PO SCH (12:28)
[2019-02-18] MEDS: METOPROLOL TARTRATE 25 MG TAB PO SCH ×2 (12:28→17:32)
[2019-02-18] MEDS: SPIRONOLACTONE 25 MG TAB PO SCH (12:28)
[2019-02-18] MEDS: MULTIVITAMINS, THERA 1 EACH TAB PO SCH (12:28)
[2019-02-18] MEDS: NITROGLYCERIN OINT 1 INCH/GM PACKET TOPICAL SCH ×4 (12:29→22:15)
[2019-02-18] MEDS: THIAMINE 100 MG TAB PO SCH (13:36)
--- NOTE | 2019-02-18 16:50 | P.PN ---
Subjective Progress Note Date: 02/18/19 This 78-year-old gentleman with history of chronic kidney disease was admitted to the hospital with increasing shortness of breath and evidence of congestive heart failure. Patient has been IV Lasix. Patient had about 4.4 L output over the last 24 hours. Patient is feeling better. Patient still has significant edema. We'll continue current medical therapy. We'll follow the recommendation of the journeyman pipe fitter regarding diuretic usage. We'll continue IV Lasix drip. Today and possible change to IV push tomorrow. Patient is also on metolazone. We'll follow electrolytes. 02/17/2019: This patient is admitted with congestive heart failure and evidence of edema and ulceration. Has been on IV diuretics. Patient still has significant fluid challenge. Patient is waiting to have dialysis and ult rafiltration. This is being scheduled for tomorrow. Otherwise patient seems clinically stable. 02/18/2019: This patient is status post aortocoronary bypass surgery and chronic CHF with fluid retention. Patient had dialysis catheter placement yesterday. He is going to get dialysis today. Otherwise patient is clinically stable. No complaints of any chest pain. No arrhythmias Objective - Vital Signs Vital signs: Vital Signs Temp 98.0 F 02/17/19 23:13 Pulse 88 02/18/19 13:11 Resp 18 02/18/19 12:00 BP 117/62 02/18/19 12:00 Pulse Ox 100 02/18/19 12:00 Intake & Output 02/17/19 02/18/19 02/18/19 18:59 06:59 18:59 Intake Total 360 150 Output Total 900 1150 500 Balance -540 -1150 -350 Weight 81.3 kg Intake: IV 150 Oral 360 Output: Urine 900 1150 500 Other: Voiding Method Toilet # Voids 2 1 # Bowel Movements 1 1 - Exam GENERAL EXAM: Patient is alert and oriented and doesn't appear to be in any acute distress HEENT: Normocephalic. Normal reaction of pupils, equal size, normal range of extraocular motion. No erythema or exudates in the throat. NECK: No masses, no nuchal rigidity. CHEST: No chest wall deformity. LUNGS:. Excellent defaults HEART: S1 and S2 normal with no audible mumurs or gallops. Regular rhythm, femorals equal on both sides.. ABDOMEN: No hepatosplenomegaly, normal bowel sounds, no guarding or rigidity. SKIN: No rashes CENTRAL NERVOUS SYSTEM: No focal deficits. EXTREMITIES: Resolving edema - Labs CBC & Chem 7: 02/16/19 07:38 02/18/19 05:54 Labs: Abnormal Lab Results - Last 24 Hours (Table) 02/17/19 02/17/19 02/18/19 Range/Units 17:06 20:52 05:54 Chloride 90 L (98-107) mmol/L Carbon Dioxide 40 H (22-30) mmol/L BUN 138 H* (9-20) mg/dL Creatinine 1.93 H (0.66-1.25) mg/dL Glucose 116 H (74-99) mg/dL POC Glucose (mg/dL) 214 H 198 H (75-99) mg/dL 02/18/19 02/18/19 Range/Units 06:29 11:59 Chloride (98-107) mmol/L Carbon Dioxide (22-30) mmol/L BUN (9-20) mg/dL Creatinine (0.66-1.25) mg/dL Glucose (74-99) mg/dL POC Glucose (mg/dL) 142 H 172 H (75-99) mg/dL Assessment and Plan (1) Acute on chronic systolic heart failure Current Visit: Yes Status: Acute Code(s): I50.23 - ACUTE ON CHRONIC SYSTOLIC (CONGESTIVE) HEART FAILURE SNOMED Code(s): 734085480 (2) Bilateral lower extremity edema Current Visit: Yes Status: Acute Code(s): R60.0 - LOCALIZED EDEMA SNOMED Code(s): 443332286 (3) Chronic renal failure syndrome Current Visit: Yes Status: Acute Code(s): N18.9 - CHRONIC KIDNEY DISEASE, UNSPECIFIED SNOMED Code(s): 75915404 Plan: Continue with current treatment of IV Lasix drip. Follow elect lites closely. May change to IV Lasix push from tomorrow. 02/17/2019: Patient is clinically stable. Significant edema still present. Waiting for dialysis and ultrafiltration which is being planned for tomorrow. 02/18/2019: Patient had a dialysis catheter, Yesterday. He is getting dialysis today with ultrafiltration. The patient otherwise clinically stable. We'll continue to monitor hemodynamics and also lab work closely
[2019-02-18 16:59] LABS: Glucose,Whole Blood 180 mg/dL (75-99)
[2019-02-18] MEDS: ATORVASTATIN 80 MG TAB PO SCH (20:37)
[2019-02-18] MEDS: ASPIRIN 81 MG PO SCH (20:38)
[2019-02-18] MEDS: MELATONIN 3 MG TABLET PO SCH (20:38)
[2019-02-18 21:13] LABS: Glucose,Whole Blood 277 mg/dL (75-99)
[2019-02-19] MEDS: IPRATROPIUM-ALBUTEROL 3 ML NEB INHALATION SCH ×5 (03:48→20:45)
[2019-02-19 06:33] LABS: Glucose,Whole Blood 169 mg/dL (75-99)
[2019-02-19] MEDS: INSULIN ASPART (NovoLOG) 100 UNIT/ML VIAL SQ SCH ×4 (07:08→22:02)
[2019-02-19] MEDS: INSULIN DETEMIR (LEVEMIR) 100 UNIT/ML SYR SQ SCH (07:08)
[2019-02-19] MEDS: PANTOPRAZOLE 40 MG TABLET PO SCH (07:09)
[2019-02-19] MEDS: ASCORBIC ACID 500 MG TAB PO SCH ×2 (07:09→17:17)
[2019-02-19 07:10] LABS: Calcium 8.7 mg/dL (8.4-10.2); Potassium 4.1 mmol/L (3.5-5.1)
[2019-02-19] MEDS: NITROGLYCERIN OINT 1 INCH/GM PACKET TOPICAL SCH ×4 (08:58→22:02)
[2019-02-19] MEDS: TAMSULOSIN 0.4 MG CAP.ER.24H PO SCH ×2 (08:58→20:27)
[2019-02-19] MEDS: SPIRONOLACTONE 25 MG TAB PO SCH (08:58)
[2019-02-19] MEDS: hydrALAZINE HCL 10 MG TAB PO SCH ×2 (08:58→20:27)
[2019-02-19] MEDS: THIAMINE 100 MG TAB PO SCH (08:58)
[2019-02-19] MEDS: METOPROLOL TARTRATE 25 MG TAB PO SCH ×2 (08:58→17:17)
[2019-02-19] MEDS: FUROSEMIDE 10 MG/ML 10 ML VIAL IV SCH ×2 (08:58→20:26)
[2019-02-19] MEDS: FERROUS SULFATE 325 MG TAB PO SCH (08:59)
[2019-02-19] MEDS: MULTIVITAMINS, THERA 1 EACH TAB PO SCH (08:59)
[2019-02-19] MEDS: FOLIC ACID 1 MG TAB PO SCH (08:59)
--- NOTE | 2019-02-19 09:22 | P.PN ---
Subjective Progress Note Date: 02/19/19 Principal diagnosis: This is a 78-year-old male seen in consultation because of chronic kidney disease stage III, acute kidney injury with cardiorenal syndrome. He came in because of edema. He has been diuresing in the 2-3 L range for the last few days. His main complaint was fatigue. Because of her very high BUN which was disproportionately high, going up to 147 on 02/15/2019, he was dialyzed yesterday on 02/18/2019. Postdialysis he has not felt any better. Again his m ain complaint is fatigue. He denies any shortness of breath although he is on oxygen via nasal cannula. We don't have any recent hemoglobin on him last hemoglobin was 9 dated 02/16/2019. Last sex x-ray was 6 02/14/2019, which showed congestive heart failure.. Sleep is somewhat disturbed. In spite of this he has a great appetite. No nausea vomiting. He has mild to minimal edema. Additionally he has significant metabolic alkalosis with bicarb being 40. He is currently on Lasix 60 IV every 12, and Aldactone 25 once a day He is known with atrial fibrillation coronary artery disease diabetes hypertension lower extremity cellulitis and ulcers recently, pleural effusions, status post coronary artery bypass graft in the past. Objective - Vital Signs Vital signs: Vital Signs Temp 97.3 F L 02/18/19 20:00 Pulse 80 02/19/19 08:35 Resp 18 02/19/19 04:00 BP 118/59 02/19/19 04:00 Pulse Ox 100 02/19/19 04:00 Intake & Output 02/18/19 02/19/19 02/19/19 18:59 06:59 18:59 Intake Total 450 360 Output Total 3050 725 Balance -2600 -725 360 Weight 80.8 kg Intake: IV 150 Oral 360 Hemodialysis 300 Output: Urine 2250 725 Hemodialysis 800 Other: Voiding Method Toilet # Voids 1 # Bowel Movements 1 On examination is awake alert oriented but looks depressed. HEENT exam no JVP neck is supple no facial asymmetry Lungs sounds are significant for an occasional fine crackle at bases. Good air entry bilaterally Heart sounds are unremarkable except for atrial fibrillation Abdomen is soft nontender no organomegaly. Extremity exam was minimal edema Neurologically awake alert oriented. No asterixis - Labs CBC & Chem 7: 02/16/19 07:38 02/19/19 06:26 Labs: Abnormal Lab Results - Last 24 Hours (Table) 02/18/19 02/18/19 02/18/19 Range/Units 11:59 16:52 21:11 Chloride (98-107) mmol/L Carbon Dioxide (22-30) mmol/L BUN (9-20) mg/dL Creatinine (0.66-1.25) mg/dL Glucose (74-99) mg/dL POC Glucose (mg/dL) 172 H 180 H 277 H (75-99) mg/dL 02/19/19 02/19/19 Range/Units 06:26 06:31 Chloride 96 L (98-107) mmol/L Carbon Dioxide 37 H (22-30) mmol/L BUN 106 H* (9-20) mg/dL Creatinine 1.60 H (0.66-1.25) mg/dL Glucose 149 H (74-99) mg/dL POC Glucose (mg/dL) 169 H (75-99) mg/dL Assessment and Plan Plan: Impression 1. Cardiorenal syndrome, with acute kidney injury. Creatinine is stable at 1.93 with BUN going up disproportionately to 138 yesterday morning and he was dialyzed in an attempt to see if he can improve his fatigue. Postdialysis morning there has been no change. He continues to have good urine output. The cause of this fatigue is not clear. Will check his hemoglobin and a chest x-ray to see if there is persistent congestive heart failure. He is currently on Lasix 60 every 12 with good urine output, last 24 hour total output is 2975 urine and 800 mL of ultrafiltration on dialysis, this should be adequate negative balance. 2. Status post insertion of Breezy in the right groin for dialysis on 02/18/2019 3. History of chronic kidney disease secondary to nephrosclerosis and diabetes mellitus with proteinuria with baseline, 1-2+ proteinuria not quantified possibly diabetic nephropathy additionally. Baseline creatinine of 1.6 g to 2 mg. 4. History of coronary artery disease, history of CABG recently 12/08/2018 as well as stents previous to that, atrial fibrillation, heart failure. 5. Diabetes mellitus. 6. Metabolic alkalosis from diuresis, bicarbonate slightly better with dialysis. 7. Rule out worsening anemia as it causes fatigue. 8. Rule out congestive heart failure resistant as a cause of his fatigue Recommendation 1. Obtain CBC today 2. Obtain a chest x-ray today. 3. Maintain current Lasix 60 every 12 4. Based on his labs and urine output tomorrow will decide about dialysis
[2019-02-19 09:32] LABS: Anisocytosis Slight; HCT 28.6 % (39.0-53.0); HGB 8.7 gm/dL (13.0-17.5); Hypochromasia Marked; MCH 25.2 pg (25.0-35.0); MCHC 30.4 g/dL (31.0-37.0); MCV 82.9 fL (80.0-100.0); Mean Platelet Volume 7.3; Microcytosis Slight; Platelet Count 179 k/uL (150-450); RBC 3.45 m/uL (4.30-5.90); RDW 19.9 % (11.5-15.5); WBC 5.8 k/uL (3.8-10.6)
--- NOTE | 2019-02-19 10:22 | P.NPCON ---
History of Present Illness - Reason for Consult Consult date: 02/19/19 acute renal failure - Chief Complaint Acute kidney injury, chronic kidney disease and multiple electrolyte abnorm - History of Present Illness This is a 78-year-old male, known to us with chronic kidney disease, was admitted 24 hours after undergoing little right hernia repair, came into the emergency room with generalized weakness. He is seen with acute kidney injury, hyponatremia, hyperkalemia and respiratory acidosis with a compensate 3 metabolic alkalosis A chest x-ray is suggestive of left lower lobe pneumonia. Patient does have chronic mild cough which had not changed. He has COPD and is on oxygen 24 7 at home. He underwent right inguinal hernia repair on 02/17/2019 day before yesterday. He was discharged same day, did well at home. Nexium morning on 02/18/2019 which is yesterday he started to have generalized weakness and came to the hospital. He denies any increase in cough or shortness of breath no nausea vomiting diarrhea no new medications. No difficulty in urine, no history of prostatism. Denies taking any nonsteroidals. No medication that change except he was taking some tramadol. There is no significant pain at the surgical site Past Medical History Past Medical History: Atrial Flutter, Coronary Artery Disease (CAD), Heart Failure, Diabetes Mellitus, GERD/Reflux, Hyperlipidemia, Hypertension, Myocardial Infarction (GA), Osteoarthritis (OA), Prostate Disorder, Renal Disease, Vascular Disorder Additional Past Medical History / Comment(s): Pt recently admitted to [facility] on 01/16/19 with bilateral lower extremity cellulitis with multiple ulcers-positive for klebsiella/pseudomonas, uncontrolled diabetes, pleural effusion with R thoracentesis, exacerbation CHF. Other Hx: Paroxysmal Aflutter, PAD, chronic bilateral venous stasis dermatitis, lower extremety infection/blisters, chronic CHF, IDDM type II, BPH, post CABG urinary retention, CRD stage III, Last Myocardial Infarction Date:: 12/08/18 History of Any Multi-Drug Resistant Organisms: None Reported Past Surgical History: Appendectomy, Coronary Bypass/CABG, Heart Catheterization With Stent Additional Past Surgical History / Comment(s): 12/08/18 CABG 4 vessels, PCI with stents 2004, cardioversion for Aflutter, PICCs, midline IV, bilateral cataract removals/lens implants. Past Anesthesia/Blood Transfusion Reactions: No Reported Reaction Additional Past Anesthesia/Blood Transfusion Reaction / Comment(s): Pt received blood with CABG Date of Last Stent Placement:: 2004 Additional Psychological History / Comment(s): Single. No children. No pets. Remote tobacco use. No international travel since his experience. Worked on [employer] Smoking Status: Never smoker - Past Family History Mother Family Medical History: Myocardial Infarction (GA) Additional Family Medical History / Comment(s): Mother had a GA at the age of 64 Father Additional Family Medical History / Comment(s): Father had mental health issues after a "bad" truck accident. Medications and Allergies Home Medications Medication Instructions Recorded Confirmed Type Ascorbic Acid [Vitamin C] 500 mg PO BID-W/MEALS tab 12/20/18 02/08/19 Rx Ferrous Sulfate [Iron (65 MG 325 mg PO DAILY tab 12/20/18 02/08/19 Rx Elemental)] Melatonin 3 mg PO HS 01/13/19 02/08/19 History Rosuvastatin Calcium [Crestor] 40 mg PO HS 01/13/19 02/08/19 History Tamsulosin [Flomax] 0.4 mg PO BID 01/13/19 02/08/19 History Aspirin EC [Ecotrin Low Dose] 81 mg PO HS 01/16/19 02/08/19 History hydrALAZINE HCL [Apresoline] 25 mg PO BID 01/16/19 02/08/19 History Acetaminophen Tab [Tylenol] 500 mg PO Q6HR PRN tab 01/25/19 02/08/19 Rx Apixaban [Eliquis] 5 mg PO BID tab 01/25/19 02/08/19 Rx Famotidine [Pepcid] 20 mg PO DAILY tab 01/25/19 02/08/19 Rx Furosemide [Lasix] 40 mg PO DAILY tab 01/25/19 02/08/19 Rx Bisacodyl [Dulcolax] 10 mg RECTAL DAILY PRN 02/08/19 02/08/19 History Glucerna Shake 1 can PO BID 02/08/19 02/08/19 History INSULIN ASPART (NovoLOG) [NovoLOG 0 unit SQ ACHS 02/08/19 02/08/19 History (formulary)] Insulin Detemir (Levemir) [Levemir] 5 unit SQ HS@2100 02/08/19 02/08/19 History Insulin Detemir (Levemir) [Levemir] 12 unit SQ DAILY@0700 02/08/19 02/08/19 History Lactose-Reduced Food [Ensure Plus] 237 ml PO DAILY 02/08/19 02/08/19 History Magnesium Hydroxide [Milk of 7,200 mg PO DAILY PRN 02/08/19 02/08/19 History Magnesia Concentrate] Metoprolol Tartrate [Lopressor] 25 mg PO BID@0800,1700 02/08/19 02/08/19 History Na Phos,M-B/Na Phos,Di-Ba [Fleet 133 ml RECTAL DAILY PRN 02/08/19 02/08/19 History Adult] Allergies Allergy/AdvReac Type Severity Reaction Status Date / Time No Known Allergies Allergy Verified 02/08/19 12:02 Physical Exam Vitals: Vital Signs Temp Pulse Pulse Resp BP Pulse Ox 02/19/19 08:35 80 02/19/19 08:23 80 02/19/19 08:00 91 19 127/57 98 02/19/19 04:07 69 02/19/19 04:00 80 18 118/59 100 02/19/19 03:48 68 100 02/18/19 23:48 73 17 115/53 99 02/18/19 23:19 78 02/18/19 23:07 86 02/18/19 20:00 97.3 F L 88 17 120/56 97 02/18/19 19:58 88 02/18/19 19:48 88 93 L 02/18/19 17:34 97.9 F 18 117/68 02/18/19 16:00 70 18 114/60 98 02/18/19 13:11 88 02/18/19 12:58 84 02/18/19 12:00 91 18 117/62 100 Intake and Output 02/18/19 02/19/19 02/19/19 22:59 06:59 14:59 Intake Total 300 360 Output Total 1875 550 Balance -1575 -550 360 Intake: Oral 360 Hemodialysis 300 Output: Urine 1075 550 Hemodialysis 800 Other: Voiding Method Toilet # Voids 1 # Bowel Movements 1 Weight 80.8 kg Physical examination is awake alert oriented comfortable. He is on nasal cannula oxygen HEENT exam no JVP neck is supple no facial asymmetry Lungs are significant for by basilar coarse crackles good air entry bilaterally Heart sounds are unremarkable for any murmur rub gallop Abdomen soft nontender nondistended Right groin surgical site is clean. Extremity examination was no edema skin is normal. No petechia noted. No rash noted. Warm to touch Neurologic awake alert oriented. No focal motor deficit Results - Lab Results Most recent lab results Calcium 8.7 mg/dL (8.4-10.2) 02/19/19 06:26 Phosphorus 5.6 mg/dL (2.5-4.5) H 02/09/19 12:46 Magnesium 2.3 mg/dL (1.6-2.3) 02/13/19 06:52 02/19/19 06:26 02/19/19 06:26 Assessment and Plan Assessment: Impression 1. Acute kidney injury secondary to pneumonia. 2. Chronic kidney disease stage III, secondary to nephrosclerosis with baseline creatinine is 1.9, GFR is 35 mL per minute secondary to nephrosclerosis creatinine has been going up slowly over the last 3 years. Creatinine was 0.16 2015, 1.18 on 2017 and 1.9 as of 10/28/2018. Possible JEANNE 3. Hyponatremia secondary to acute kidney injury, sodium improved from 1:30 to 132 this morning. 4. Hyperkalemia secondary to acute kidney injury potassium was 5.6 and remains 5.6. 5. Respiratory acidosis with a venous pH showing 7.27 and a venous pCO2 is 71. Likely this is an element of metabolic alkalosis as a compensate the mechanism bicarb is 30. 6. Anemia with hemoglobin of 9.8 down from 10.7 a day before. 7. 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 History of ASHD, stent in 2014 9. History of pacer and defibrillator. Recommendation 1. Agree with antibiotics. 2. Agree with gentle hydration currently at normal saline 60/ hour. 3. Watch potassium - no need to treat currently. 4. Check postvoid residual. 5. Avoid any nonsteroidals Gianni inhibitors or ARB for right now because of the hyperkalemia.
--- NOTE | 2019-02-19 10:52 | P.PN ---
Subjective Progress Note Date: 02/19/19 This 78-year-old gentleman with history of chronic kidney disease was admitted to the hospital with increasing shortness of breath and evidence of congestive heart failure. Patient has been IV Lasix. Patient had about 4.4 L output over the last 24 hours. Patient is feeling better. Patient still has significant edema. We'll continue current medical therapy. We'll follow the recommendation of the spout liner helper regarding diuretic usage. We'll continue IV Lasix drip. Today and possible change to IV push tomorrow. Patient is also on metolazone. We'll follow electrolytes. 02/17/2019: This patient is admitted with congestive heart failure and evidence of edema and ulceration. Has been on IV diuretics. Patient still has significant fluid challenge. Patient is waiting to have dialysis and ul trafiltration. This is being scheduled for tomorrow. Otherwise patient seems clinically stable. 02/18/2019: This patient is status post aortocoronary bypass surgery and chronic CHF with fluid retention. Patient had dialysis catheter placement yesterday. He is going to get dialysis today. Otherwise patient is clinically stable. No complaints of any chest pain. No arrhythmias 02/19: Patient has been seen by nephrology and started on hemodialysis. Patient is sleepy and tired today. He denies having any shortness of breath. Repeat BUN 160 and creatinine 1.6, chloride 96, CO2 37, hemoglobin 8.7. Heart rate is 80, blood pressure 127/57, pulse ox 90% on 1 L nasal cannula. Objective - Vital Signs Vital signs: Vital Signs Temp 97.3 F L 02/18/19 20:00 Pulse 80 02/19/19 08:35 Resp 19 02/19/19 08:00 BP 127/57 02/19/19 08:00 Pulse Ox 98 02/19/19 08:00 Intake & Output 02/18/19 02/19/19 02/19/19 18:59 06:59 18:59 Intake Total 450 360 Output Total 3050 725 300 Balance -2600 -725 60 Weight 80.8 kg Intake: IV 150 Oral 360 Hemodialysis 300 Output: Urine 2250 725 300 Hemodialysis 800 Other: Voiding Method Toilet # Voids 1 # Bowel Movements 1 1 - Exam GENERAL EXAM: Patient is sleepy but does not appear to be in any acute distress HEENT: Normocephalic. Normal reaction of pupils, equal size, normal range of extraocular motion. No erythema or exudates in the throat. NECK: No masses, no nuchal rigidity. CHEST: No chest wall deformity. LUNGS:. Excellent defaults HEART: S1 and S2 normal with no audible mumurs or gallops. Regular rhythm, femorals equal on both sides.. ABDOMEN: No hepatosplenomegaly, normal bowel sounds, no guarding or rigidity. SKIN: No rashes CENTRAL NERVOUS SYSTEM: No focal deficits. EXTREMITIES: Resolving edema - Labs CBC & Chem 7: 02/19/19 06:26 02/19/19 06:26 Labs: Abnormal Lab Results - Last 24 Hours (Table) 02/18/19 02/18/19 02/18/19 Range/Units 11:59 16:52 21:11 RBC (4.30-5.90) m/uL Hgb (13.0-17.5) gm/dL Hct (39.0-53.0) % MCHC (31.0-37.0) g/dL RDW (11.5-15.5) % Chloride (98-107) mmol/L Carbon Dioxide (22-30) mmol/L BUN (9-20) mg/dL Creatinine (0.66-1.25) mg/dL Glucose (74-99) mg/dL POC Glucose (mg/dL) 172 H 180 H 277 H (75-99) mg/dL 02/19/19 02/19/19 02/19/19 Range/Units 06:26 06:26 06:31 RBC 3.45 L (4.30-5.90) m/uL Hgb 8.7 L (13.0-17.5) gm/dL Hct 28.6 L (39.0-53.0) % MCHC 30.4 L (31.0-37.0) g/dL RDW 19.9 H (11.5-15.5) % Chloride 96 L (98-107) mmol/L Carbon Dioxide 37 H (22-30) mmol/L BUN 106 H* (9-20) mg/dL Creatinine 1.60 H (0.66-1.25) mg/dL Glucose 149 H (74-99) mg/dL POC Glucose (mg/dL) 169 H (75-99) mg/dL Assessment and Plan Plan: (1) Acute on chronic systolic heart failure Current Visit: Yes Status: Acute Code(s): I50.23 - ACUTE ON CHRONIC SYSTOLIC (CONGESTIVE) HEART FAILURE SNOMED Code(s): 963054417 (2) Bilateral lower extremity edema Current Visit: Yes Status: Acute Code(s): R60.0 - LOCALIZED EDEMA SNOMED Code(s): 470854481 (3) Chronic renal failure syndrome Current Visit: Yes Status: Acute Code(s): N18.9 - CHRONIC KIDNEY DISEASE, UNSPECIFIED SNOMED Code(s): 82769061 Plan: Continue with current treatment of IV Lasix drip. Follow elect lites closely. May change to IV Lasix push from tomorrow. 02/17/2019: Patient is clinically stable. Significant edema still present. Waiting for dialysis and ultrafiltration which is being planned for tomorrow. 02/18/2019: Patient had a dialysis catheter, Yesterday. He is getting dialysis today with ultrafiltration. The patient otherwise clinically stable. We'll continue to monitor hemodynamics and also lab work closely 02/19: Patient appears to be stable at this point. Continue same medications. Continue hydration per nephrology. Avoid MELIA inhibitor and ARB. Nurse practitioner note has been reviewed, I agree with the documented findings and plan of care. Patient was seen and examined.
--- NOTE | 2019-02-19 10:53 | XR ---
EXAMINATION TYPE: XR chest 2V DATE OF EXAM: 02/19/2019 HISTORY: chf. REFERENCE: Previous study dated 02/14/2019. FINDINGS: There has been a midline sternotomy. There is a moderate left-sided effusion. There is biba silar airspace disease. The heart is enlarged. IMPRESSION: 1. CONTINUING BIBASILAR AIRSPACE DISEASE. 2. MODERATE LEFT EFFUSION. 3. CARDIOMEGALY.
[2019-02-19 11:57] LABS: Glucose,Whole Blood 263 mg/dL (75-99)
[2019-02-19 16:26] LABS: Glucose,Whole Blood 304 mg/dL (75-99)
--- NOTE | 2019-02-19 17:36 | IR ---
EXAMINATION TYPE: IR cvc insert non tunneled DATE OF EXAM: 02/18/2019 CLINICAL HISTORY: Failed dialysis. TECHNIQUE: Fluoroscopy. COMPARISON: None. FINDINGS: Fluoroscopic guidance was provided during right femoral dialysis catheter insertion proced ure performed by Dr. Anna. A total of 0.1 minutes of fluoroscopic time was utilized during the pr ocedure and single spot intraoperative image is acquired. Single image acquired shows portion of righ t femoral central venous catheter for dialysis. IMPRESSION: As Above.
[2019-02-19] MEDS: ATORVASTATIN 80 MG TAB PO SCH (20:27)
[2019-02-19] MEDS: MELATONIN 3 MG TABLET PO SCH (20:27)
[2019-02-19] MEDS: ASPIRIN 81 MG PO SCH (20:27)
[2019-02-19 20:44] LABS: Glucose,Whole Blood 286 mg/dL (75-99)
[2019-02-19] MEDS ORDERED: IPRATROPIUM-ALBUTEROL 3 ML NEB INHALATION PRN (21:23)
[2019-02-19] MEDS ORDERED: INSULIN ASPART (NovoLOG) 100 UNIT/ML VIAL SQ ONE (23:19)
--- NOTE | 2019-02-20 00:46 | P.PN ---
Subjective Progress Note Date: 02/18/19 Principal diagnosis: Acute on chronic CHF with systolic dysfunction Acute on chronic kidney disease stage III. Cardiorenal syndrome. This is a pleasant 78 years old male with past medical history of heart failure, atrial fibrillation, coronary artery disease, type 2 diabetes mellitus, GERD, hyperlipidemia, hypertension,bilateral venous stasis dermatitis, chronic kidney disease stage III. Who presents with signs and symptoms of acute congestive heart failure and elevated troponin. His been able with it by brazer resistance and was started on Lasix drip. On admission also his creatinine was 1.8/2.0. [employer] recommended patient follow-up as an outpatient in 4-5 weeks for anemia and bone lesion. Today patient was more lethargic and sleepy however he is fully awake once been called his name. His dyspnea is improving with no chest pain. He has dry cough. No abdominal complaints or tenderness. No nausea vomiting and he starting diet well. No diarrhea. And no right upper quadrant pain or tenderness, negative Ag sign. Parenteral Lasix 60 mg 3 times a day. With indirect this is stable and his creatinine today is 2.17, sugar is controlled. Liver enzymes elevated. 02/14/2019 is more awake today, his breathing is improving, with no chest pain ho wever he still have the dry cough. Patient also denies abdominal pain including no pain or tenderness in his right upper quadrant and in view of possible disease seen on CAT scan. Patient is still have bilateral leg swelling with wound on the left leg more than the right leg. Infectious disease team are following the case. Patient is hemodynamically stable. Hemoglobin 8.7. BUN is 129, creatinine 2.2. Sodium 136. Sugar is controlled. Rn Staff team input is appreciated. Patient continued on parenteral Lasix 60 mg. 02/15/2019 Patient is much better today is awake and more alert. His coughing is improving and his breathing is easing down. He denies chest pain or abdominal pain. He'll still has slight edema and wound in his left leg. Patient is currently on Eliquis, IV Lasix 60 mg lowered down to twice daily. Also patient is on Zaroxolyn 5 mg daily. Infectious disease input is appreciated, mostly patient will need only local wound care without antibiotics upon discharge for his leg wound. Patient might need ECF for inpatient rehab upon discharge 02/16/2019 Patient still feeling better. No chest pain or dyspnea. His lung exam looks clear. His still have some, but is improving. We have swelling in his lower extremity. He is tolerating diet well. Vital signs stable. Creatinine is stable at 1.9. BUN is 136. Sugar control is acceptable. Rn Staff team are following the patient closely, continue with diuretics now and reassess his in 1-2 days if no improvement and consider ultrafiltration. Eliquis is on hold 02/17/2019 Patient is clinically stable with no chest pain or dyspnea. He is feeling more strong. This allowed some dry cough. Leg edema and wound in the lower extremity looks the same. Is currently on Lasix intravenously twice daily. Nephrology team are following the case closely and plan for ultrafiltration therapy. Patient might go for permacath placement tomorrow. 02/18/2019 Patient denied any complains of chest pain. No worsening shortness of breath. Otherwise patient is having significant leg swelling. And fluid overload. Nephrology is following for acute on chronic kidney disease and cardiorenal syndrome. Patient is being started on dialysis today. Otherwise no nausea vomiting or diarrhea or abdominal pain. Current medications reviewed. Objective - Vital Signs Vital signs: Vital Signs Temp 97.9 F 02/18/19 17:34 Pulse 70 02/18/19 16:00 Resp 18 02/18/19 17:34 BP 117/68 02/18/19 17:34 Pulse Ox 98 02/18/19 16:00 Intake & Output 02/18/19 02/18/19 02/19/19 06:59 18:59 06:59 Intake Total 450 Output Total 1150 3050 Balance -1150 -2600 Weight 81.3 kg Intake: IV 150 Hemodialysis 300 Output: Urine 1150 2250 Hemodialysis 800 Other: Voiding Method Toilet # Voids 1 1 # Bowel Movements 1 - Exam PHYSICAL EXAMINATION: Patient is lying in the bed comfortably, no acute distress, awake alert and oriented.. HEENT: Normocephalic. Neck is supple. Pupils reactive. Nostrils clear. Oral cavity is moist. Ears reveal no drainage. Neck reveals no JVD, carotid bruits, or thyromegaly. CHEST EXAMINATION: Trachea is central. Symmetrical expansion. Right basilar crackles Lung vaughan clear to auscultation and percussion. CARDIAC: Normal S1, S2 with no gallops. No murmurs ABDOMEN: Soft. Bowel sounds normal. No organomegaly. No abdominal bruits. Extremities: 3+ edema. Legs are peter wrapped.. No clubbing or cyanosis Neurologically awake, alert, oriented x3 with well-coordinated movements. No focal deficits noted Skin: No rash or skin lesions. Psychiatric: Coperative. Nonsuicidal Musculoskeletal: No joint swelling or deformity. Normal range of motion. - Labs CBC & Chem 7: 02/19/19 06:26 02/19/19 06:26 Labs: Abnormal Lab Results - Last 24 Hours (Table) 02/17/19 02/18/19 02/18/19 Range/Units 20:52 05:54 06:29 Chloride 90 L (98-107) mmol/L Carbon Dioxide 40 H (22-30) mmol/L BUN 138 H* (9-20) mg/dL Creatinine 1.93 H (0.66-1.25) mg/dL Glucose 116 H (74-99) mg/dL POC Glucose (mg/dL) 198 H 142 H (75-99) mg/dL 02/18/19 02/18/19 Range/Units 11:59 16:52 Chloride (98-107) mmol/L Carbon Dioxide (22-30) mmol/L BUN (9-20) mg/dL Creatinine (0.66-1.25) mg/dL Glucose (74-99) mg/dL POC Glucose (mg/dL) 172 H 180 H (75-99) mg/dL Assessment and Plan Assessment: Acute kidney injury with cardiorenal syndrome. Creatinine is stable at 1.93 with BUN going up disproportionately to 138 this morning, good urine output of 205 0 mL on current dose of 60 mg of Lasix IV every 12.Nephrology is planning for grzegorz lysis today. Acute on chronic systolic congestive heart failure Elevated troponin Chronic atrial fibrillation on Eliquis History of coronary artery disease Type 2 diabetes mellitus History of GERD Hyperlipidemia Hypertension History of bilateral venous is status dermatitis Chronic kidney disease stage III Plan: This is a pleasant 78 years old male who presents because of acute CHF. Continue with diuretic. Continue with Lasix and spironolactone. Hemodialysis to be started on 02.18. Continue catheter was placed. Monitor creatinine.Labs and medication were reviewed.. Continue same treatment. Continue with symptomatic treatment. Resume home medication. Monitor lytes and vitals. DVT and GI prophylaxis. Further recommendations of the clinical course of the patient DVT prophylaxis: On Eliquis for atrial fibrillation.. GI Prophylaxis: Protonix PT/OT: Pending Prognosis is guarded Time with Patient: Greater than 30
--- NOTE | 2019-02-20 00:51 | P.PN ---
Subjective Progress Note Date: 02/19/19 Principal diagnosis: Acute on chronic CHF with systolic dysfunction Acute on chronic kidney disease stage III. Cardiorenal syndrome. This is a pleasant 78 years old male with past medical history of heart failure, atrial fibrillation, coronary artery disease, type 2 diabetes mellitus, GERD, hyperlipidemia, hypertension,bilateral venous stasis dermatitis, chronic kidney disease stage III. Who presents with signs and symptoms of acute congestive heart failure and elevated troponin. His been able with it by forest fire officer and was started on Lasix drip. On admission also his creatinine was 1.8/2.0. Editor Department recommended patient follow-up as an outpatient in 4-5 weeks for anemia and bone lesion. Today patient was more lethargic and sleepy however he is fully awake once been called his name. His dyspnea is improving with no chest pain. He has dry cough. No abdominal complaints or tenderness. No nausea vomiting and he starting diet well. No diarrhea. And no right upper quadrant pain or tenderness, negative Ag sign. Parenteral Lasix 60 mg 3 times a day. With indirect this is stable and his creatinine today is 2.17, sugar is controlled. Liver enzymes elevated. 02/14/2019 is more awake today, his breathing is improving, with no chest pain ho wever he still have the dry cough. Patient also denies abdominal pain including no pain or tenderness in his right upper quadrant and in view of possible disease seen on CAT scan. Patient is still have bilateral leg swelling with wound on the left leg more than the right leg. Infectious disease team are following the case. Patient is hemodynamically stable. Hemoglobin 8.7. BUN is 129, creatinine 2.2. Sodium 136. Sugar is controlled. Commercial [employer] team input is appreciated. Patient continued on parenteral Lasix 60 mg. 02/15/2019 Patient is much better today is awake and more alert. His coughing is improving and his breathing is easing down. He denies chest pain or abdominal pain. He'll still has slight edema and wound in his left leg. Patient is currently on Eliquis, IV Lasix 60 mg lowered down to twice daily. Also patient is on Zaroxolyn 5 mg daily. Infectious disease input is appreciated, mostly patient will need only local wound care without antibiotics upon discharge for his leg wound. Patient might need ECF for inpatient rehab upon discharge 02/16/2019 Patient still feeling better. No chest pain or dyspnea. His lung exam looks clear. His still have some, but is improving. We have swelling in his lower extremity. He is tolerating diet well. Vital signs stable. Creatinine is stable at 1.9. BUN is 136. Sugar control is acceptable. Commercial Loan [employer] team are following the patient closely, continue with diuretics now and reassess his in 1-2 days if no improvement and consider ultrafiltration. Eliquis is on hold 02/17/2019 Patient is clinically stable with no chest pain or dyspnea. He is feeling more strong. This allowed some dry cough. Leg edema and wound in the lower extremity looks the same. Is currently on Lasix intravenously twice daily. Nephrology team are following the case closely and plan for ultrafiltration therapy. Patient might go for permacath placement tomorrow. 02/18/2019 Patient denied any complains of chest pain. No worsening shortness of breath. Otherwise patient is having significant leg swelling. And fluid overload. Nephrology is following for acute on chronic kidney disease and cardiorenal syndrome. Patient is being started on dialysis today. Otherwise no nausea vomiting or diarrhea or abdominal pain. 02/19/2019 Patient was started on hemodialysis yesterday with 2.5 L ultrafiltration. Creatinine level improved to 1.6 today. Hemodynamically stable. Still having significant leg swelling. No complaints of chest pain or worsening shortness of breath. No nausea vomiting or diarrhea. No other acute overnight issues. Asked and nephrology and cardiology is following. Patient is being continued on Lasix and spironolactone. Patient is hyperglycemic this afternoon and insulin sliding scale be added. Current medications reviewed. Objective - Vital Signs Vital signs: Vital Signs Temp 98.0 F 02/19/19 20:18 Pulse 72 02/19/19 20:57 Resp 17 02/19/19 20:18 BP 121/50 02/19/19 20:18 Pulse Ox 96 02/19/19 20:45 Intake & Output 02/19/19 02/19/19 02/20/19 06:59 18:59 06:59 Intake Total 1320 240 Output Total 725 1300 400 Balance -725 20 -160 Weight 80.8 kg Intake: Oral 1320 240 Output: Urine 725 1300 400 Other: Voiding Method Toilet Toilet # Bowel Movements 1 1 - Exam PHYSICAL EXAMINATION: Patient is lying in the bed comfortably, no acute distress, awake alert and oriented.. HEENT: Normocephalic. Neck is supple. Pupils reactive. Nostrils clear. Oral cavity is moist. Ears reveal no drainage. Neck reveals no JVD, carotid bruits, or thyromegaly. CHEST EXAMINATION: Trachea is central. Symmetrical expansion. Right basilar crackles Lung vaughan clear to auscultation and percussion. CARDIAC: Normal S1, S2 with no gallops. No murmurs ABDOMEN: Soft. Bowel sounds normal. No organomegaly. No abdominal bruits. Extremities: 3+ edema. Legs are peter wrapped.. No clubbing or cyanosis Neurologically awake, alert, oriented x3 with well-coordinated movements. No focal deficits noted Skin: No rash or skin lesions. Psychiatric: Coperative. Nonsuicidal Musculoskeletal: No joint swelling or deformity. Normal range of motion. - Labs CBC & Chem 7: 02/19/19 06:02/19/19 06:26 Labs: Abnormal Lab Results - Last 24 Hours (Table) 02/19/19 02/19/19 02/19/19 Range/Units 06:26 06:26 06:31 RBC 3.45 L (4.30-5.90) m/uL Hgb 8.7 L (13.0-17.5) gm/dL Hct 28.6 L (39.0-53.0) % MCHC 30.4 L (31.0-37.0) g/dL RDW 19.9 H (11.5-15.5) % Chloride 96 L (98-107) mmol/L Carbon Dioxide 37 H (22-30) mmol/L BUN 106 H* (9-20) mg/dL Creatinine 1.60 H (0.66-1.25) mg/dL Glucose 149 H (74-99) mg/dL POC Glucose (mg/dL) 169 H (75-99) mg/dL 02/19/19 02/19/19 02/19/19 Range/Units 11:40 16:24 20:43 RBC (4.30-5.90) m/uL Hgb (13.0-17.5) gm/dL Hct (39.0-53.0) % MCHC (31.0-37.0) g/dL RDW (11.5-15.5) % Chloride (98-107) mmol/L Carbon Dioxide (22-30) mmol/L BUN (9-20) mg/dL Creatinine (0.66-1.25) mg/dL Glucose (74-99) mg/dL POC Glucose (mg/dL) 263 H 304 H 286 H (75-99) mg/dL Assessment and Plan Assessment: Acute kidney injury with cardiorenal syndrome. BUN and Creatinine is improving. 1.93--1.6 . Started on hemodialysis on 02/18/2019. Continue current dose of 60 mg of Lasix IV every 12.Nephrology is planning for dialysis today. Acute on chronic systolic congestive heart failure Elevated troponin Chronic atrial fibrillation on Eliquis History of coronary artery disease Hyperglycemia with uncontrolled Type 2 diabetes mellitus History of GERD Hyperlipidemia Hypertension History of bilateral venous is status dermatitis Chronic kidney disease stage III Plan: This is a pleasant 78 years old male who presents because of acute CHF. Continue with diuretic. Continue with Lasix and spironolactone. Hemodialysis to be started on 02.18. Breezy catheter was placed. Monitor creatinine.Labs and medication were reviewed.. Continue same treatment. Continue with symptomatic treatment. Resume home medication. M onitor lytes and vitals. DVT and GI prophylaxis. Further recommendations of the clinical course of the patient DVT prophylaxis: On Eliquis for atrial fibrillation.. GI Prophylaxis: Protonix PT/OT: Pending Prognosis is guarded Time with Patient: Greater than 30
[2019-02-20 05:35] LABS: Glucose,Whole Blood 113 mg/dL (75-99)
[2019-02-20 06:35] LABS: Glucose,Whole Blood 137 mg/dL (75-99)
[2019-02-20] MEDS: IPRATROPIUM-ALBUTEROL 3 ML NEB INHALATION SCH ×4 (08:58→20:56)
--- NOTE | 2019-02-20 09:39 | P.PN ---
Subjective Patient is seen in follow-up for chronic kidney disease. Patient has chronic kidney disease stage III Baseline creatinine in the range of 1.7-2. Currently maintained on IV Lasix 60 mg twice daily. He is nonoliguric. Edema has improved. Due to worsening BUN and fatigue, there was concern for uremia and he was started on hemodialysis. He underwent hemodialysis on February 18. However patient's mentation and fatigue have not changed. Still quite lethargic. Vital signs are stable. General: The patient appeared well nourished and normally developed. HEENT: Head exam is unremarkable. Neck is without jugular venous distension. LUNGS: Breath sounds decreased. HEART: Rate and Rhythm are regular. First and second heart sounds normal. No murmurs, rubs or gallops. ABDOMEN: Abdominal exam reveals normal bowel sounds. Non-tender and non-disten ded. EXTREMITITES: 1+ edema. Objective - Vital Signs Vital signs: Vital Signs Temp 97.7 F 02/20/19 08:00 Pulse 88 02/20/19 08:00 Resp 18 02/20/19 08:00 BP 121/73 02/20/19 08:00 Pulse Ox 95 02/20/19 08:00 Intake & Output 02/19/19 02/20/19 02/20/19 18:59 06:59 18:59 Intake Total 1320 240 Output Total 1300 400 Balance 20 -160 Weight 80 kg Intake: Oral 1320 240 Output: Urine 1300 400 Other: Voiding Method Toilet # Voids 2 # Bowel Movements 1 1 - Labs CBC & Chem 7: 02/19/19 06:26 02/19/19 06:26 Labs: Abnormal Lab Results - Last 24 Hours (Table) 02/19/19 02/19/19 02/19/19 Range/Units 06:26 11:40 16:24 RBC 3.45 L (4.30-5.90) m/uL Hgb 8.7 L (13.0-17.5) gm/dL Hct 28.6 L (39.0-53.0) % MCHC 30.4 L (31.0-37.0) g/dL RDW 19.9 H (11.5-15.5) % POC Glucose (mg/dL) 263 H 304 H (75-99) mg/dL 02/19/19 02/20/19 02/20/19 Range/Units 20:43 05:33 06:34 RBC (4.30-5.90) m/uL Hgb (13.0-17.5) gm/dL Hct (39.0-53.0) % MCHC (31.0-37.0) g/dL RDW (11.5-15.5) % POC Glucose (mg/dL) 286 H 113 H 137 H (75-99) mg/dL Assessment and Plan Plan: Assessment: 1. Chronic kidney disease stage III secondary to cardiorenal syndrome. Baseline creatinine in the range of 1.7-2 recently. Due to rising BUN and worsening fatigue, he was started on hemodialysis and underwent 1 treatment on February 18. Mentation is not improved. 2 Volume overload. Improving. 3. Systolic CHF with ejection fraction of 45-50% with moderate aortic stenosis and pulmonary hypertension. 4. Anemia of chronic kidney disease. Iron deficiency noted - status post 3 doses of IV iron. Maintained on Aranesp. 5. 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 6. Insulin-dependent diabetes mellitus. Plan: Maintain Lasix 60 mg IV twice daily. Hold off on hemodialysis for now. Patient refused blood draw this morning. Repeat electrolytes, including phosphorus level in the morning.
[2019-02-20 09:44] LABS: Glucose,Whole Blood 118 mg/dL (75-99)
[2019-02-20] MEDS: INSULIN ASPART (NovoLOG) 100 UNIT/ML VIAL SQ SCH ×4 (10:13→21:14)
[2019-02-20] MEDS: INSULIN DETEMIR (LEVEMIR) 100 UNIT/ML SYR SQ SCH (10:13)
--- NOTE | 2019-02-20 10:13 | CT ---
EXAMINATION TYPE: CT brain wo con for TPA DATE OF EXAM: 02/20/2019 HISTORY: Altered mental status CT DLP: 1099.4 mGycm. Automated Exposure Control for Dose Reduction was Utilized. TECHNIQUE: CT scan of the head is performed without contrast. COMPARISON: None. FINDINGS: There is no acute intracranial hemorrhage or midline shift identified. There is diffuse v entricular and sulcal prominence consistent with diffuse age-related cerebral atrophy. There is low- attenuation in the periventricular white matter consistent with chronic small vessel ischemic change. The globes are intact and the visualized sinuses are clear. Nasal septum is deviated to right of midline. Vascular calcification distal internal carotid arteries is present bilaterally. IMPRESSION: No acute intracranial hemorrhage or midline shift. There is moderate diffuse age-relate d cerebral atrophy and mild to moderate chronic small vessel ischemic change noted.
[2019-02-20 10:20] LABS: Albumin 3.5 g/dL (3.5-5.0); Potassium 3.9 mmol/L (3.5-5.1); Total Bilirubin 0.7 mg/dL (0.2-1.3); Total Protein 6.5 g/dL (6.3-8.2)
[2019-02-20] MEDS: NITROGLYCERIN OINT 1 INCH/GM PACKET TOPICAL SCH ×4 (10:28→21:15)
[2019-02-20] MEDS: FUROSEMIDE 10 MG/ML 10 ML VIAL IV SCH ×2 (10:29→21:14)
[2019-02-20 10:44] VITALS: BMI 28.4
[2019-02-20 11:06] LABS: Partial Thromboplastin Time 25.2 sec (22.0-30.0); Prothrombin Time 10.9 sec (9.0-12.0)
[2019-02-20 11:21] LABS: Anisocytosis Slight; Basophils # (A) 0.1 k/uL (0-0.2); Basophils % (A) 1 %; Eosinophils # (A) 0.4 k/uL (0-0.7); Eosinophils % (A) 7 %; HCT 30.3 % (39.0-53.0); Hypochromasia Marked; Lymphocytes # (A) 0.5 k/uL (1.0-4.8); Lymphocytes % (A) 8 %; MCH 24.4 pg (25.0-35.0); MCHC 29.7 g/dL (31.0-37.0); MCV 82.1 fL (80.0-100.0); Mean Platelet Volume 7.2; Microcytosis Slight; Monocytes # (A) 0.5 k/uL (0-1.0); Monocytes % (A) 8 %; Neutrophils # (A) 4.6 k/uL (1.3-7.7); Neutrophils % (A) 73 %; Platelet Count 190 k/uL (150-450); RBC 3.69 m/uL (4.30-5.90); WBC 6.2 k/uL (3.8-10.6)
[2019-02-20 12:05] LABS: Glucose,Whole Blood 128 mg/dL (75-99)
[2019-02-20] MEDS: MULTIVITAMINS, THERA 1 EACH TAB PO SCH ×2 (12:14→13:05)
[2019-02-20] MEDS: THIAMINE 100 MG TAB PO SCH ×2 (12:14→13:05)
[2019-02-20] MEDS: FOLIC ACID 1 MG TAB PO SCH ×2 (12:15→13:05)
[2019-02-20] MEDS: PANTOPRAZOLE 40 MG TABLET PO SCH ×2 (12:15→13:04)
[2019-02-20] MEDS: ASCORBIC ACID 500 MG TAB PO SCH ×3 (12:15→16:59)
[2019-02-20] MEDS: METOPROLOL TARTRATE 25 MG TAB PO SCH ×2 (13:04→16:59)
[2019-02-20] MEDS: TAMSULOSIN 0.4 MG CAP.ER.24H PO SCH ×2 (13:05→21:14)
[2019-02-20] MEDS: FERROUS SULFATE 325 MG TAB PO SCH (13:05)
[2019-02-20] MEDS: hydrALAZINE HCL 10 MG TAB PO SCH ×2 (13:05→21:14)
[2019-02-20] MEDS: SPIRONOLACTONE 25 MG TAB PO SCH (13:05)
--- NOTE | 2019-02-20 15:13 | P.PN ---
Subjective Progress Note Date: 02/20/19 This is a 78-year-old gentleman with history of coronary artery bypass grafting surgery back in December, subsequent to that he was transferred to [facility] with an infection in his leg, he did undergo a thoracentesis also at that time. Patient continues to have issues with fluid in his lungs and fluid in his legs, he has gained approximately 14 pounds of weight and can only walk short distances, without being very short of breath. The patient is currently on IV Lasix drip, his weight is down 1 kg today overall through the night last night he states that he put out a significant amount of urine. Blood pressure 132/70 with a heart rate in the 80s, 94% on 3 L of oxygen. 02/13/2019 Patient seen and examined this morning,blood pressure 112/60 with a heart rate in the 80s, 96% on room air.White blood cell count 6.6, hemoglobin 8.3, platelet count 246. Sodium 136, potassium 4.5, BUN 121 and creatinine 2.1.on IV Lasix, dosing as per nephrology. 02/14/2019 Patient was seen and examined this morning, he states that he does feel well overall, better than he has, continues to have significant bilateral peripheral edema. White blood cell count 7.3, hemoglobin 8.7, platelet count 267. Sodium 136, potassium 4.2, BUN 129 and creatinine 2.2. He continues to be on IV diu retics, Zaroxolyn was placed on hold because of the elevated BUN by nephrology. 02/15/2019 Patient was seen and examined this morning, sitting up in his chair at bedside, overall feeling well however that BUN again today has gone up. Creatinine is down to 2.1. He continues to have significant bilateral peripheral edema. Dr. Strange the kidney doctor did have a discussion with the patient today regarding ultrafiltration. The patient has agreed to proceed with this. 02/16/2019 Patient seen and examined this morning sitting up in his chair at bedside. Anticipating ultrafiltration today.sodium 138, potassium 4.1, BUN 136 and creatinine 1.9. 02/20/2019 Patient was seen and examined this morning, somewhat unresponsive, not opening his eyes, he underwent a CT of the brain which did not reveal any evidence of acute stroke. He does appear to have more weakness on the right side of his body than the left. Neurology consultation has been requested. Blood pressure 115/70 with a heart rate of 90, 97% on 2 L. White blood cell count 6.2, hemoglobin 9.0, platelet count 190. Sodium 140, potassium 3.9, BUN 112 and creatinine 1.5. Objective - Vital Signs Vital signs: Vital Signs Temp 97.7 F 02/20/19 08:00 Pulse 92 02/20/19 11:40 Resp 18 02/20/19 11:40 BP 115/70 02/20/19 11:29 Pulse Ox 97 02/20/19 11:29 Intake & Output 02/19/19 02/20/19 02/20/19 18:59 06:59 18:59 Intake Total 1320 240 Output Total 7038 484 0688 Balance 20 -160 -1400 Weight 80 kg 80 kg Intake: Oral 1320 240 Output: Urine 2970 785 [id number] Other: Voiding Method Toilet # Voids 2 # Bowel Movements 1 1 - Exam GENERAL EXAM: Alert, pleasant, 78-year-old male 3 L of oxygen with a pulse ox of 93% comfortable in no apparent distress. HEAD: Normocephalic/atraumatic. EYES: Normal reaction of pupils, equal size. Conjunctiva pink, sclera white. NOSE: Clear with pink turbinates. THROAT: No erythema or exudates. NECK: No masses, no JVD, no thyroid enlargement, no adenopathy. CHEST: No chest wall deformity. Symmetrical expansion. LUNGS: Equal air entry with diminished breath sounds CVS: Regular rate and rhythm, normal S1 and S2, no gallops, no murmurs, no rubs ABDOMEN: Soft, nontender. No hepatosplenomegaly, normal bowel sounds, no guarding or rigidity. EXTREMITIES: No clubbing, 1+ lower extremity edema, no cyanosis, 2+ pulses and upper and lower extremities. MUSCULOSKELETAL: Muscle strength and tone normal. SPINE: No scoliosis or deformity SKIN: No rashes CENTRAL NERVOUS SYSTEM: No focal deficits, tone is normal in all 4 extremities. PSYCHIATRIC: Alert and oriented -3. Appropriate affect. Intact judgment and insight. - Labs CBC & Chem 7: 02/20/19 09:48 02/20/19 09:48 Labs: Abnormal Lab Results - Last 24 Hours (Table) 02/19/19 02/19/19 02/20/19 Range/Units 16:24 20:43 05:33 RBC (4.30-5.90) m/uL Hgb (13.0-17.5) gm/dL Hct (39.0-53.0) % MCH (25.0-35.0) pg MCHC (31.0-37.0) g/dL RDW (11.5-15.5) % Lymphocytes # (1.0-4.8) k/uL Chloride (98-107) mmol/L Carbon Dioxide (22-30) mmol/L BUN (9-20) mg/dL Creatinine (0.66-1.25) mg/dL POC Glucose (mg/dL) 304 H 286 H 113 H (75-99) mg/dL Alkaline Phosphatase (38-126) U/L Troponin I (0.000-0.034) ng/mL 02/20/19 02/20/19 02/20/19 Range/Units 06:34 09:42 09:48 RBC (4.30-5.90) m/uL Hgb (13.0-17.5) gm/dL Hct (39.0-53.0) % MCH (25.0-35.0) pg MCHC (31.0-37.0) g/dL RDW (11.5-15.5) % Lymphocytes # (1.0-4.8) k/uL Chloride 96 L (98-107) mmol/L Carbon Dioxide 35 H (22-30) mmol/L BUN 112 H* (9-20) mg/dL Creatinine 1.59 H (0.66-1.25) mg/dL POC Glucose (mg/dL) 137 H 118 H (75-99) mg/dL Alkaline Phosphatase 362 H (38-126) U/L Troponin I (0.000-0.034) ng/mL 02/20/19 02/20/19 02/20/19 Range/Units 09:48 09:48 12:02 RBC 3.69 L (4.30-5.90) m/uL Hgb 9.0 L (13.0-17.5) gm/dL Hct 30.3 L (39.0-53.0) % MCH 24.4 L (25.0-35.0) pg MCHC 29.7 L (31.0-37.0) g/dL RDW 20.0 H (11.5-15.5) % Lymphocytes # 0.5 L (1.0-4.8) k/uL Chloride (98-107) mmol/L Carbon Dioxide (22-30) mmol/L BUN (9-20) mg/dL Creatinine (0.66-1.25) mg/dL POC Glucose (mg/dL) 128 H (75-99) mg/dL Alkaline Phosphatase (38-126) U/L Troponin I 0.090 H* (0.000-0.034) ng/mL Assessment and Plan Plan: Assessment: #1. Acute exacerbation of chronic systolic congestive heart failure with mildly impaired systolic function with ejection fraction 45-50% #2. Coronary artery disease with history of recent bypass grafting #3. History of COPD #4. Hyperlipidemia #5. Hypertension #6. Atrial flutter #7. GERD/reflux #8. Osteoarthritis #9. BPH #10. Slowly healing leg ulcerations, cultures pending. Plan From cardiology's perspective, we will continue with current medications. Ne urology has been consulted for possible CVA. DNP note has been reviewed, I agree with a documented findings and plan of care. Patient was seen and examined.
[2019-02-20 17:02] LABS: Glucose,Whole Blood 256 mg/dL (75-99)
[2019-02-20 20:55] LABS: Glucose,Whole Blood 278 mg/dL (75-99)
[2019-02-20] MEDS: APIXABAN 5 MG TAB PO SCH (21:14)
[2019-02-20] MEDS: MELATONIN 3 MG TABLET PO SCH (21:14)
[2019-02-20] MEDS: ATORVASTATIN 80 MG TAB PO SCH (21:14)
[2019-02-20] MEDS: ASPIRIN 81 MG PO SCH (21:14)
--- NOTE | 2019-02-20 23:57 | P.PN ---
Subjective Progress Note Date: 02/20/19 78-year-old gentleman with a known history of coronary disease who in November 2018 suffered a non-ST elevated myocardial infarction. Eversion at the present time reveal evidence of severe coronary disease and constantly was taken to the operating room and a her artery bypass graft procedure was performed including GONZALEZ to LAD as well as saphenous grafts from aorta to the first obtuse marginal as well as the distal PDA. The patient postoperatively had significant difficulties with effusion and underwent thoracentesis on 2 events. Eventually improved and was sent to rehabilitation. As related after his discharge from rehab went to the home setting but there was difficulties with the transition. The family relates that the patient is a and receives his medications from that source. Apparently time of his discharge he was at least 4 days before they're able to get most of his medications according his insulin for use at home. The patient then started to show some improvement. He had physical therapy session. The following day he became miserable with severe pain especi ally into his left leg. It escalated the point that he could not walk and constantly his family brought him to the emergency center and he was admitted. He had treatment of his underlying pulmonary disease, heart failure and his leg ulcerations. He again transitioned out of the hospital. He has not done well. He is continuing to have difficulty with increasing weight, increasing shortness of breath, significant generalized weakness with attempts to ambulate and constantly was again brought back to Hospital & evidence of congestive heart failure. He is now on a Lasix drip. Request for wound care was placed. The patient coughs readily short of breath and does not feel well overall. He is denying chest pain. 02/13 2019 the patient is having further improvement. He is much less short of breath is emeses had some diuresis. Still has extensive lower extremity edema. No chest pain at this time. 02/14/2019 reveals evidence of further improvement. Lower extremity edema is improved drainage from the ulcerations improved shortness of breath is improved continues to follow with cardiology. 02/17/2019 patient continues to have improvement. Edema has improved. It appears that plans are in place for transfer to rehab facility. He is more comfortable and not having complaints of discomfort with his ulceration. 02/20/2019 patient has had some improvement in his edema. With transfer to rehab. Ulcerations of the study and drainage today Objective - Vital Signs Vital signs: Vital Signs Temp 97.8 F 02/20/19 20:00 Pulse 74 02/20/19 21:07 Resp 17 02/20/19 20:00 BP 113/65 02/20/19 20:00 Pulse Ox 99 02/20/19 20:00 Intake & Output 02/20/19 02/20/19 02/21/19 06:59 18:59 06:59 Intake Total 240 0 Output Total 400 1400 600 Balance -160 -1400 -600 Weight 80 kg 80 kg Intake: Oral 240 0 Output: Urine 400 1400 600 Other: Voiding Method Toilet Toilet # Voids 2 # Bowel Movements 1 - Exam HEENT: Anicteric conjunctiva are pink and moist nasal mucosa grossly intact without significant lesions, there is no thrush. Neck: The neck is supple without significant lymphadenopathy or thyromegaly. Lungs: Good bilateral air entry without significant crackles or wheezing. There is no significant bronchial sounds. There is no egophony or dullness. Heart: Regular rate and rhythm with an audible S1-S2, no S3 no S4. There is no significant murmur click or rub, PMI was nondisplaced. Abdomen: Positive bowel sounds soft and nontender without palpable masses or organomegaly. There was no guarding or rebound. Extremities: Upper extremities with diffuse small healing ecchymosis. The lower extremities have significant edema but there is marked improvement of the prior vein harvest sites. Ecchymosis is all resolved. The left lower extremity continues to have the open ulceration the lateral surface measuring approximately 3 x 3 x 0.2 cm. It is tender to touch. There is minimal surrounding erythema and little drainage noticed on the dressing at this time. Right lower extremity has edema. Neuro: Awake alert oriented to person place and time. There are no acute new gross focal sensory motor deficits. - Labs CBC & Chem 7: 02/20/19 09:48 02/20/19 09:48 Labs: Abnormal Lab Results - Last 24 Hours (Table) 02/20/19 02/20/19 02/20/19 Range/Units 05:33 06:34 09:42 RBC (4.30-5.90) m/uL Hgb (13.0-17.5) gm/dL Hct (39.0-53.0) % MCH (25.0-35.0) pg MCHC (31.0-37.0) g/dL RDW (11.5-15.5) % Lymphocytes # (1.0-4.8) k/uL Chloride (98-107) mmol/L Carbon Dioxide (22-30) mmol/L BUN (9-20) mg/dL Creatinine (0.66-1.25) mg/dL POC Glucose (mg/dL) 113 H 137 H 118 H (75-99) mg/dL Alkaline Phosphatase (38-126) U/L Troponin I (0.000-0.034) ng/mL 02/20/19 02/20/19 02/20/19 Range/Units 09:48 09:48 09:48 RBC 3.69 L (4.30-5.90) m/uL Hgb 9.0 L (13.0-17.5) gm/dL Hct 30.3 L (39.0-53.0) % MCH 24.4 L (25.0-35.0) pg MCHC 29.7 L (31.0-37.0) g/dL RDW 20.0 H (11.5-15.5) % Lymphocytes # 0.5 L (1.0-4.8) k/uL Chloride 96 L (98-107) mmol/L Carbon Dioxide 35 H (22-30) mmol/L BUN 112 H* (9-20) mg/dL Creatinine 1.59 H (0.66-1.25) mg/dL POC Glucose (mg/dL) (75-99) mg/dL Alkaline Phosphatase 362 H (38-126) U/L Troponin I 0.090 H* (0.000-0.034) ng/mL 02/20/19 02/20/19 02/20/19 Range/Units 12:02 16:50 20:54 RBC (4.30-5.90) m/uL Hgb (13.0-17.5) gm/dL Hct (39.0-53.0) % MCH (25.0-35.0) pg MCHC (31.0-37.0) g/dL RDW (11.5-15.5) % Lymphocytes # (1.0-4.8) k/uL Chloride (98-107) mmol/L Carbon Dioxide (22-30) mmol/L BUN (9-20) mg/dL Creatinine (0.66-1.25) mg/dL POC Glucose (mg/dL) 128 H 256 H 278 H (75-99) mg/dL Alkaline Phosphatase (38-126) U/L Troponin I (0.000-0.034) ng/mL Laboratory Results WBC 6.2 k/uL (3.8-10.6) 02/20/19 09:48 RBC 3.69 m/uL (4.30-5.90) L 02/20/19 09:48 Hgb 9.0 gm/dL (13.0-17.5) L 02/20/19 09:48 Hct 30.3 % (39.0-53.0) L 02/20/19 09:48 MCV 82.1 fL (80.0-100.0) 02/20/19 09:48 MCH 24.4 pg (25.0-35.0) L 02/20/19 09:48 MCHC 29.7 g/dL (31.0-37.0) L 02/20/19 09:48 RDW 20.0 % (11.5-15.5) H 02/20/19 09:48 Plt Count 190 k/uL (150-450) 02/20/19 09:48 Neutrophils % 73 % 02/20/19 09:48 Lymphocytes % 8 % 02/20/19 09:48 Monocytes % 8 % 02/20/19 09:48 Eosinophils % 7 % 02/20/19 09:48 Basophils % 1 % 02/20/19 09:48 Neutrophils # 4.6 k/uL (1.3-7.7) 02/20/19 09:48 Lymphocytes # 0.5 k/uL (1.0-4.8) L 02/20/19 09:48 Monocytes # 0.5 k/uL (0-1.0) 02/20/19 09:48 Eosinophils # 0.4 k/uL (0-0.7) 02/20/19 09:48 Basophils # 0.1 k/uL (0-0.2) 02/20/19 09:48 Hypochromasia Marked 02/20/19 09:48 Poikilocytosis Slight 02/12/19 05:48 Anisocytosis Slight 02/20/19 09:48 Microcytosis Slight 02/20/19 09:48 PT 10.9 sec (9.0-12.0) 02/20/19 09:48 INR 1.0 (<1.2) 02/20/19 09:48 APTT 25.2 sec (22.0-30.0) 02/20/19 09:48 Sodium 140 mmol/L (137-145) 02/20/19 09:48 Potassium 3.9 mmol/L (3.5-5.1) 02/20/19 09:48 Chloride 96 mmol/L (98-107) L 02/20/19 09:48 Carbon Dioxide 35 mmol/L (22-30) H 02/20/19 09:48 Anion Gap 9 mmol/L 02/20/19 09:48 BUN 112 mg/dL (9-20) H* 02/20/19 09:48 Creatinine 1.59 mg/dL (0.66-1.25) H 02/20/19 09:48 Est GFR (CKD-EPI)AfAm 48 (>60 ml/min/1.73 sqM) 02/20/19 09:48 Est GFR (CKD-EPI)NonAf 42 (>60 ml/min/1.73 sqM) 02/20/19 09:48 Glucose 97 mg/dL (74-99) 02/20/19 09:48 POC Glucose (mg/dL) 278 mg/dL (75-99) H 02/20/19 20:54 POC Glu Groundskeeping Maintenance Hiren Bautista 02/20/19 20:54 Calcium 9.0 mg/dL (8.4-10.2) 02/20/19 09:48 Phosphorus 5.6 mg/dL (2.5-4.5) H 02/09/19 12:46 Magnesium 2.0 mg/dL (1.6-2.3) 02/20/19 09:48 Iron 18 ug/dL (65-175) L 02/09/19 12:53 TIBC 311 ug/dL (228-460) 02/09/19 12:53 Iron Saturation 5.79 (15.00-50.00) L 02/09/19 12:53 Ferritin 98.0 ng/mL (22.0-322.0) 02/09/19 12:53 Total Bilirubin 0.7 mg/dL (0.2-1.3) 02/20/19 09:48 AST 29 U/L (17-59) 02/20/19 09:48 ALT 29 U/L (21-72) 02/20/19 09:48 Alkaline Phosphatase 362 U/L (38-126) H 02/20/19 09:48 Ammonia <9 umol/L (<30) 02/20/19 20:36 Troponin I 0.090 ng/mL (0.000-0.034) H* 02/20/19 09:48 NT-Pro-B Natriuret Pep 04719 pg/mL 02/08/19 12:36 Total Protein 6.5 g/dL (6.3-8.2) 02/20/19 09:48 Albumin 3.5 g/dL (3.5-5.0) 02/20/19 09:48 Free PSA 0.65 ng/mL 02/10/19 06:04 % Free PSA 19 % 02/10/19 06:04 Total PSA 3.4 ng/mL (<=4.0) 02/10/19 06:04 Vit D 1,25-Dihydroxy 35 pg/mL (20 - 79) 02/09/19 12:46 TSH 2.800 mIU/L (0.465-4.680) 02/20/19 20:36 Urine Color Light Yellow 02/09/19 16:29 Urine Appearance Clear (Clear) 02/09/19 16:29 Urine pH 5.0 (5.0-8.0) 02/09/19 16:29 Ur Specific Palmer 1.008 (1.001-1.035) 02/09/19 16:29 Urine Protein 1+ (Negative) H 02/09/19 16:29 Urine Glucose (UA) Negative (Negative) 02/09/19 16:29 Urine Ketones Negative (Negative) 02/09/19 16:29 Urine Blood Trace (Negative) H 02/09/19 16:29 Urine Nitrite Negative (Negative) 02/09/19 16:29 Urine Bilirubin Negative (Negative) 02/09/19 16:29 Urine Urobilinogen <2.0 mg/dL (<2.0) 02/09/19 16:29 Ur Leukocyte Esterase Negative (Negative) 02/09/19 16:29 Urine RBC 6 /hpf (0-5) H 02/09/19 16:29 Urine WBC 1 /hpf (0-5) 02/09/19 16:29 Urine Bacteria Rare /hpf (None) H 02/09/19 16:29 Urine Mucus Rare /hpf (None) H 02/09/19 16:29 Hepatitis A IgM Ab Non-Reactive (Non-Reactive) 02/16/19 07:38 Hep Bs Antigen Non-Reactive (Non-Reactive) 02/16/19 07:38 Hep B Core IgM Ab Non-Reactive (Non-Reactive) 02/16/19 07:38 Hep C IgG Ab Non-Reactive (Non-Reactive) 02/16/19 07:38 Microbiology 02/09/19 12:46 Blood Blood Culture - Final No Growth after 144 hours 02/09/19 18:30 Leg - Right Gram Stain - Final 02/09/19 18:30 Leg - Right Wound Culture - Final 02/09/19 18:30 Leg - Left Gram Stain - Final 02/09/19 18:30 Leg - Left Wound Culture - Final Assessment and Plan (1) Acute on chronic systolic heart failure Current Visit: Yes Status: Acute Code(s): I50.23 - ACUTE ON CHRONIC SYSTOLIC (CONGESTIVE) HEART FAILURE SNOMED Code(s): 106269548 (2) Chronic renal failure syndrome Current Visit: Yes Status: Acute Code(s): N18.9 - CHRONIC KIDNEY DISEASE, UNSPECIFIED SNOMED Code(s): 16510831 (3) Leg ulcer, left Narrative/Plan: 78-year-old male has a history of significant underlying coronary artery disease status post CABG with ongoing difficulties with acute on chronic systolic congestive heart failure. Chronic volume overload postoperatively lower extremity edema in ulcerations. Currently more severe ulcerations of left leg than the right. Local wound care with absorptive silver dressing is requested for both legs. Recent culture showed evidence of Pseudomonas and Klebsiella as well as Providencia thus will utilize cefepime for now while cultures are pending. Patient is receiving Lasix via drip and has multiple consultants. Elevation of the limbs at rest as well as compression is being utilized at this time. Cultures will direct antibiotic therapy at discharge. 02/13/2019 reveals the patient to having some improvement of his congestive heart failure lower extremity edema with volume overload. Is feeling somewhat better. There are no other new acute changes cultures are negative at this point in time. He is being treated with local wound care without evidence of the extensive infection at this time. Elevation limbs as he can tolerate is helpful with the aggressive treatment of his congestive heart failure and lower extremity edema. 02/14/2019 patient is having further improvement of his significant heart failure and the result lower extremity edema. He is less short of breath but is still fatigued and has malaise. Lower extremities ulcerations persist but have less drainage tolerating local wound care well. Cultures are negative so far. Will not likely need any ongoing antibiotic therapy after discharge other than local wound care. 02/17/2019 patient is having further improvement of his edema and shortness of breath. Discharge planning is working toward his rehab placement at the time of discharge. Continue with local wound care which is the silver alginate to the limb Q Wednesday elevate the limb while he is at rest. No evidence of any ongoing infection at that site 02/20/2019 patient was having more shortness of breath which seems to be improving at this time. He said further diuresis. The leg is without new drainage or infection continue local wound care elevated at rest as he tolerates. Current Visit: No Status: Acute Code(s): L97.929 - NON-PRS CHRONIC ULC UNSP PRT OF L LOW LEG W UNSP SEVERITY SNOMED Code(s): 26380120 (4) Bilateral lower extremity edema Current Visit: Yes Status: Acute Code(s): R60.0 - LOCALIZED EDEMA SNOMED Code(s): 235899942
--- NOTE | 2019-02-21 00:54 | P.PN ---
Subjective Progress Note Date: 02/20/19 Principal diagnosis: Acute on chronic CHF with systolic dysfunction Acute on chronic kidney disease stage III. Cardiorenal syndrome. This is a pleasant 78 years old male with past medical history of heart failure, atrial fibrillation, coronary artery disease, type 2 diabetes mellitus, GERD, hyperlipidemia, hypertension,bilateral venous stasis dermatitis, chronic kidney disease stage III. Who presents with signs and symptoms of acute congestive heart failure and elevated troponin. His been able with it by digital printer operator and was started on Lasix drip. On admission also his creatinine was 1.8/2.0. Manager Copy recommended patient follow-up as an outpatient in 4-5 weeks for anemia and bone lesion. Today patient was more lethargic and sleepy however he is fully awake once been called his name. His dyspnea is improving with no chest pain. He has dry cough. No abdominal complaints or tenderness. No nausea vomiting and he starting diet well. No diarrhea. And no right upper quadrant pain or tenderness, negative Ag sign. Parenteral Lasix 60 mg 3 times a day. With indirect this is stable and his creatinine today is 2.17, sugar is controlled. Liver enzymes elevated. 02/14/2019 is more awake today, his breathing is improving, with no chest pain ho wever he still have the dry cough. Patient also denies abdominal pain including no pain or tenderness in his right upper quadrant and in view of possible disease seen on CAT scan. Patient is still have bilateral leg swelling with wound on the left leg more than the right leg. Infectious disease team are following the case. Patient is hemodynamically stable. Hemoglobin 8.7. BUN is 129, creatinine 2.2. Sodium 136. Sugar is controlled. Adult Education Teacher team input is appreciated. Patient continued on parenteral Lasix 60 mg. 02/15/2019 Patient is much better today is awake and more alert. His coughing is improving and his breathing is easing down. He denies chest pain or abdominal pain. He'll still has slight edema and wound in his left leg. Patient is currently on Eliquis, IV Lasix 60 mg lowered down to twice daily. Also patient is on Zaroxolyn 5 mg daily. Infectious disease input is appreciated, mostly patient will need only local wound care without antibiotics upon discharge for his leg wound. Patient might need ECF for inpatient rehab upon discharge 02/16/2019 Patient still feeling better. No chest pain or dyspnea. His lung exam looks clear. His still have some, but is improving. We have swelling in his lower extremity. He is tolerating diet well. Vital signs stable. Creatinine is stable at 1.9. BUN is 136. Sugar control is acceptable. Adult Education Teacher team are following the patient closely, continue with diuretics now and reassess his in 1-2 days if no improvement and consider ultrafiltration. Eliqucuba is on hold 02/17/2019 Patient is clinically stable with no chest pain or dyspnea. He is feeling more strong. This allowed some dry cough. Leg edema and wound in the lower extremity looks the same. Is currently on Lasix intravenously twice daily. Nephrology team are following the case closely and plan for ultrafiltration therapy. Patient might go for permacath placement tomorrow. 02/18/2019 Patient denied any complains of chest pain. No worsening shortness of breath. Otherwise patient is having significant leg swelling. And fluid overload. Nephrology is following for acute on chronic kidney disease and cardiorenal syndrome. Patient is being started on dialysis today. Otherwise no nausea vomiting or diarrhea or abdominal pain. 02/19/2019 Patient was started on hemodialysis yesterday with 2.5 L ultrafiltration. Creatinine level improved to 1.6 today. Hemodynamically stable. Still having significant leg swelling. No complaints of chest pain or worsening shortness of breath. No nausea vomiting or diarrhea. No other acute overnight issues. Asked and nephrology and cardiology is following. Patient is being continued on Lasix and spironolactone. Patient is hyperglycemic this afternoon and insulin sliding scale be added. 02/20/2019 Patient became more lethargic and non-arousable this morning and code stroke was called. CT head showed no acute intra-abdominal abnormality. Also mental status is most likely secondary to metabolic encephalopathy and also newly started on hemodialysis. Patient was also found have urinary retention with bladder scan showing greater than 800 mL. Straight catheter patient was done and considering Torres catheter if he continues to retain urine. Otherwise patient is being continued on Lasix and spironolactone. Creatinine level improved to 1.53 today. Nephrology and cardiology is following. No fever no chills. No nausea vomiting or diarrhea. Discussed with the family at bedside. Mental status did improve slightly in the afternoon. Current medications reviewed. Objective - Vital Signs Vital signs: Vital Signs Temp 97.8 F 02/20/19 20:00 Pulse 74 02/20/19 21:07 Resp 17 02/20/19 20:00 BP 113/65 02/20/19 20:00 Pulse Ox 99 02/20/19 20:00 Intake & Output 02/20/19 02/20/19 02/21/19 06:59 18:59 06:59 Intake Total 240 0 Output Total 400 1400 600 Balance -160 -1400 -600 Weight 80 kg 80 kg Intake: Oral 240 0 Output: Urine 400 1400 600 Other: Voiding Method Toilet Toilet # Voids 2 # Bowel Movements 1 - Exam PHYSICAL EXAMINATION: Patient is lying in the bed comfortably, no acute distress, awake alert and oriented.. HEENT: Normocephalic. Neck is supple. Pupils reactive. Nostrils clear. Oral cavity is moist. Ears reveal no drainage. Neck reveals no JVD, carotid bruits, or thyromegaly. CHEST EXAMINATION: Trachea is central. Symmetrical expansion. Right basilar crackles Lung vaughan clear to auscultation and percussion. CARDIAC: Normal S1, S2 with no gallops. No murmurs ABDOMEN: Soft. Bowel sounds normal. No organomegaly. No abdominal bruits. Extremities: 3+ edema. Legs are peter wrapped.. No clubbing or cyanosis Neurologically awake, alert, oriented x3 with well-coordinated movements. No focal deficits noted Skin: No rash or skin lesions. Psychiatric: Coperative. Nonsuicidal Musculoskeletal: No joint swelling or deformity. Normal range of motion. - Labs CBC & Chem 7: 02/20/19 09:48 02/20/19 09:48 Labs: Abnormal Lab Results - Last 24 Hours (Table) 02/20/19 02/20/19 02/20/19 Range/Units 05:33 06:34 09:42 RBC (4.30-5.90) m/uL Hgb (13.0-17.5) gm/dL Hct (39.0-53.0) % MCH (25.0-35.0) pg MCHC (31.0-37.0) g/dL RDW (11.5-15.5) % Lymphocytes # (1.0-4.8) k/uL Chloride (98-107) mmol/L Carbon Dioxide (22-30) mmol/L BUN (9-20) mg/dL Creatinine (0.66-1.25) mg/dL POC Glucose (mg/dL) 113 H 137 H 118 H (75-99) mg/dL Alkaline Phosphatase (38-126) U/L Troponin I (0.000-0.034) ng/mL 02/20/19 02/20/19 02/20/19 Range/Units 09:48 09:48 09:48 RBC 3.69 L (4.30-5.90) m/uL Hgb 9.0 L (13.0-17.5) gm/dL Hct 30.3 L (39.0-53.0) % MCH 24.4 L (25.0-35.0) pg MCHC 29.7 L (31.0-37.0) g/dL RDW 20.0 H (11.5-15.5) % Lymphocytes # 0.5 L (1.0-4.8) k/uL Chloride 96 L (98-107) mmol/L Carbon Dioxide 35 H (22-30) mmol/L BUN 112 H* (9-20) mg/dL Creatinine 1.59 H (0.66-1.25) mg/dL POC Glucose (mg/dL) (75-99) mg/dL Alkaline Phosphatase 362 H (38-126) U/L Troponin I 0.090 H* (0.000-0.034) ng/mL 02/20/19 02/20/19 02/20/19 Range/Units 12:02 16:50 20:54 RBC (4.30-5.90) m/uL Hgb (13.0-17.5) gm/dL Hct (39.0-53.0) % MCH (25.0-35.0) pg MCHC (31.0-37.0) g/dL RDW (11.5-15.5) % Lymphocytes # (1.0-4.8) k/uL Chloride (98-107) mmol/L Carbon Dioxide (22-30) mmol/L BUN (9-20) mg/dL Creatinine (0.66-1.25) mg/dL POC Glucose (mg/dL) 128 H 256 H 278 H (75-99) mg/dL Alkaline Phosphatase (38-126) U/L Troponin I (0.000-0.034) ng/mL Assessment and Plan Assessment: Altered mental status. Likely metabolic encephalopathy. CTA negative for any acute CVA. Acute kidney injury with cardiorenal syndrome. BUN and Creatinine is improving. 1.93--1.6--1.53 . Started on hemodialysis on 02/18/2019. Continue current dose of 60 mg of Lasix IV every 12. Nephrology is lying. P santa had hemodialysis times one session on 02/18/2019. Acute on chronic systolic congestive heart failure Elevated troponin Chronic atrial fibrillation on Eliquis History of coronary artery disease Hyperglycemia with uncontrolled Type 2 diabetes mellitus History of GERD Hyperlipidemia Hypertension History of bilateral venous is status dermatitis Chronic kidney disease stage III Urinary retention. Status post cardiac catheterization. Plan: This is a pleasant 78 years old male who presents because of acute CHF. Continue with diuretics. Continue with Lasix and spironolactone. Hemodialysis to be started on 02.18. Breezy catheter was placed. Monitor creatinine.Labs and medication were reviewed.. Continue same treatment. Continue with symptomatic treatment. Resume home medication. Monitor lytes and vitals. DVT and GI prophylaxis. Further recommendations of the clinical course of the patient DVT prophylaxis: On Eliquis for atrial fibrillation.. GI Prophylaxis: Protonix PT/OT: Pending Prognosis is guarded Time with Patient: Greater than 30
[2019-02-21 06:44] LABS: Glucose,Whole Blood 185 mg/dL (75-99)
--- NOTE | 2019-02-21 06:46 | CONS ---
CONSULTATION DATE OF SERVICE: 02/20/2019 REFERRING PHYSICIAN: Dr. Stoddard. HISTORY OF PRESENT ILLNESS: Thank you for allowing me to evaluate Neto Brice, who is a 78-year-old right-handed white male who presented to [facility] initially on 02/08/2019 for increasing shortness of breath and was diagnosed with acute on chronic systolic congestive heart failure as well as having elevated troponins. On presentation, the patient's BUN and creatinine were 66 and 1.8 respectively, and the patient has been receiving IV Lasix with BUN and creatinine going as high as 147 and 2.18 on 02/15/2019. On Wednesday (02/18), the patient received one session of dialysis, he has never had dialysis in the past. According to progress notes on 02/19, the patient was described as being lethargic. This morning, according to nursing staff, the patient would not open his eyes, although was reportedly moving his upper and lower extremities in a fairly symmetrical fashion. A code stroke was called, the patient was sent for a CT scan of the brain, which demonstrated no acute pathology, he could not have a CTA due to renal function. He was not felt to be a tPA or intervention candidate. The last thing the patient can recollect is sitting in a chair last night and being given water when he asked for it. The next thing he remembers is waking up this afternoon and having the severe urge to urinate. He states he had no recollection of being sent down for the CAT scan or the code stroke being called on him. Due to the sensation that he needed to urinate, the patient was straight catheterized and 1400 mL was obtained. Following this catheterization, nursing staff state the patient became much more alert, sat up, fed himself, was following commands and the patient states he was talking to his family. No seizure activity was witnessed when he was less responsive, nursing staff deny him receiving any sedative/narcotic medication. The patient denied associated headache, tongue biting, urine/stool incontinence, vertigo, diplopia, dysarthria, difficulty chewing/swallowing or focal weakness/numbness in the extremities. He denies previous history of stroke or seizure. At baseline, the patient states his memory is "good". Currently, the patient states he feels "groggy". The patient states he has been sleeping quite poorly during this hospitalization. He estimates sleeping about 2 hours per night because he cannot lay flat in bed and as a result has spent each night attempting to sleep in a chair. He states if he tries to lay down flat he begins coughing with phlegm production. During the period of time where the patient was less responsive, blood sugar was 118. ALLERGIES: No known drug allergies. HOME MEDICATIONS: Hydralazine, Flomax, Crestor, Lopressor, melatonin, milk of magnesia, Levemir, NovoLog, Lasix, iron, Pepcid, Dulcolax, vitamin C, Eliquis, Tylenol, and Ecotrin 81 mg daily. PAST MEDICAL HISTORY: Chronic kidney disease, CHF, anemia of chronic disease, diabetes mellitus, coronary artery disease, hyperlipidemia, COPD, hypertension, atrial fibrillation, GERD, osteoarthritis, BPH, lower extremity ulcers with stasis dermatitis. PAST SURGICAL HISTORY: Coronary artery bypass surgery in December, appendectomy and bilateral cataract extraction. SOCIAL HISTORY: The patient denied tobacco use and states he quit drinking alcohol in 1973. He is single without children and was residing at his brother's house prior to this admission. He stated he had not been using any assistive devices to ambulate at home. FAMILY HISTORY: The patient's parents are . He states his mother from a "broken heart" and father in a mental hospital. There is no family history of epilepsy, Parkinson's or other neurologic disease. REVIEW OF SYSTEMS: Fourteen systems are reviewed and no additional complaints are identified. The review of systems is documented in history. PHYSICAL EXAMINATION: Upon my arrival to the patient's room, he was sitting in a bedside chair, watching television, receptive to the examiner. Affect is normal. He is an accurate historian and appears of stated age. There are no family members at the bedside. VITAL SIGNS: Blood pressure is 112/61 with a pulse of 90, respiratory rate 16, temperature 97.7, weight is 80 kg on a 5-foot 6-inch frame. SKIN AND EXTREMITIES: The patient's distal lower extremities are wrapped from just below the knees to the toes bilaterally. Arthritic changes are noted in the hands, the patient has reduced range of motion at the left shoulder, which he states is longstanding and related to local shoulder issues. He uses trapezius supplementation when attempting to abduct the left arm. HEAD AND NECK: No tenderness or signs of trauma. Neck is supple without meningeal sign. Arteries are nontender without bruit. HEART: Irregularly, irregular. HIGHER CORTICAL FUNCTION: MENTAL STATUS: Patient was alert and oriented to self. He knew he was in [place]. He knew the floor, year, month, day of the week and could name current president. He was able to name, repeat, and read. There was no right/left disorientation, finger agnosia, or extinction to double simultaneous stimulation or dysarthria. CRANIAL NERVES II THROUGH XII: Pupils are equal and reactive to light symmetrically. No afferent pupillary defect. The visual vaughan are intact to confrontation. No ptosis. Extraocular movements were full. No nystagmus. V: Pinprick, light touch intact in all regions. Motor of V intact. VII: No facial asymmetry or weakness. VIII: Acuity intact to finger rub IX,X palate chrissy in the midline, XI: trapezius strength intact, XII: Tongue protruded midline without fasciculation or atrophy. Motor: There was no pronator drift on the right, the patient has limited proximal movements of the left upper extremity related to local shoulder issues with trapezius supplementation. There was reduced bulk in hand intrinsic muscles with normal tone and no involuntary movements are noted. Strength is 5/5 throughout except at the interossei which were 4+ /5 bilaterally, left deltoid 5-/5 related to local shoulder issues and right ankle dorsiflexor at 4/5. The patient denies back pain or radiation of pain into the right lower extremity. SENSORY: Intact to pinprick and light touch in all extremities, the distal lower extremities could not be assessed as they are wrapped. REFLEXES: Right side listed first biceps 1, 1, brachioradialis 1,1, triceps 1,1, patella 1,1 ankle 0, 0. Flexor responses mute bilaterally. Cotton's is absent. COORDINATION: Uorvwn-ym-jgui, ytzw-[id number]-aryy movements are intact. Rapid movements are symmetric with finger and foot tapping. DIAGNOSTIC TESTING: Patient had a CT scan of the brain completed earlier today, which demonstrated atrophy, mild white matter ischemic change, but no ventriculomegaly was present. LABS: Lab work demonstrates a white blood cell count of 6.2, hemoglobin 9.0, platelet count 190. Sodium 140, potassium 3.9, current BUN and creatinine are 112 and 1.59. Magnesium of 2.0. ALT on presentation was 163 today is 20. AST on presentation was 108 and currently 29. Troponin has been as high as 0.090. IMPRESSION: 1. Encephalopathy, likely secondary to sleep deprivation and prerenal azotemia. The patient reports having to sleep in a chair during this hospitalization due to coughing/phlegm when he attempts to lay flat. There is no evidence to suggest stroke and no seizure activity was witnessed. 2. Right foot drop, likely secondary to peroneal mononeuropathy versus peripheral polyneuropathy. 3. Elevated troponin, defer to your expertise. 4. Chronic kidney disease, status post one session of dialysis 2 days ago. 5. Acute on chronic systolic congestive heart failure, prompting this hospitalization. 6. Multiple medical problems including anemia of chronic disease, diabetes mellitus, hypertension, coronary artery disease, status post coronary artery bypass surgery, hyperlipidemia, chronic obstructive pulmonary disease, atrial fibrillation, gastroesophageal reflux disease, osteoarthritis, benign prostatic hypertrophy and lower extremity ulcers with stasis dermatitis. RECOMMENDATION: 1. I discussed my impression and plan with the patient and he expressed understanding. I reassured him that his neurologic examination appears well maintained at this time. 2. Treatment of medical issues per primary service. 3. CT scan of brain completed earlier this morning demonstrated no acute pathology, we will obtain a carotid ultrasound. 4. Risk factor modification. The patient is currently maintained on Eliquis, aspirin, and Lipitor. 5. We will check labs including ammonia level, TSH and urinalysis. 6. Will follow with you. Thank you for allowing me to participate in the care of your patient. MMODL / IJN: [id number] / SAIDA
[2019-02-21] MEDS: INSULIN ASPART (NovoLOG) 100 UNIT/ML VIAL SQ SCH ×4 (07:09→21:15)
[2019-02-21] MEDS: ASCORBIC ACID 500 MG TAB PO SCH ×2 (07:09→17:22)
[2019-02-21] MEDS: INSULIN DETEMIR (LEVEMIR) 100 UNIT/ML SYR SQ SCH (07:09)
[2019-02-21] MEDS: PANTOPRAZOLE 40 MG TABLET PO SCH (07:09)
[2019-02-21] MEDS: IPRATROPIUM-ALBUTEROL 3 ML NEB INHALATION SCH ×4 (07:18→20:49)
[2019-02-21 07:31] LABS: Calcium 8.9 mg/dL (8.4-10.2); Phosphorus 3.5 mg/dL (2.5-4.5); Potassium 3.9 mmol/L (3.5-5.1)
[2019-02-21 07:45] LABS: Appearance,Urine Clear (Clear); Bilirubin,Urine Negative (Negative); Blood,Urine Negative (Negative); Color,Urine Light Yellow; Glucose,Urine (UA) Negative (Negative); Ketones,Urine Negative (Negative); Leukocyte Esterase,Urine Negative (Negative); Mucus,Urine Rare /hpf; Nitrite,Urine Negative (Negative); PH, Urine 6.5 (5.0-8.0); Protein,Urine 1+ (Negative); RBC,Urine 2 /hpf (0-5); Specific Gravity,Urine 1.009 (1.001-1.035); Urobilinogen,Urine <2.0 mg/dL (<2.0)
--- NOTE | 2019-02-21 08:07 | US ---
EXAMINATION TYPE: US carotid duplex BILAT DATE OF EXAM: 02/21/2019 COMPARISON: Carotid ultrasound December 05, 2018 CLINICAL HISTORY: syncope. EXAM MEASUREMENTS: RIGHT: Peak Systolic Velocity (PSV) cm/sec ----- Right CCA: 86.7 ----- Right ICA: 118.5 ----- Right ECA: 61.6 ICA/CCA ratio: 1.4 RIGHT: End Diastole cm/sec ----- Right CCA: 23.4 ----- Right ICA: 36.5 ----- Right ECA: 0.0 LEFT: Peak Systolic Velocity (PSV) cm/sec ----- Left CCA: 72.0 ----- Left ICA: 184.2 ----- Left ECA: 71.4 ICA/CCA ratio: 2.6 LEFT: End Diastole cm/sec ----- Left CCA: 20.1 ----- Left ICA: 42.7 ----- Left ECA: 6.9 VERTEBRALS (direction of flow): Right Vertebral: Antegrade Left Vertebral: Antegrade Rhythm: Normal Valdivia scale images redemonstrate moderate plaque centered at bilateral carotid bulb level with increas ed peak systolic velocity and end-diastolic velocity as well as abnormal ratio left internal carotid artery on current study. IMPRESSION: Moderate to severe atherosclerotic change bilaterally with significant stenosis estimate d 50-69% proximal left internal carotid artery now felt present. Criteria for Assigning % of Stenosis / Diameter reduction (Estimation based on the indirect measurements of the internal carotid artery velocities (ICA PSV). 1. Normal (no stenosis)=ICA PSV < 125 cm/s: ratio < 2.0: ICA EDV<40 cm/s. 2. Less than 50% stenosis=ICA PSV < 125 cm/s: ratio < 2.0: ICA EDV<40 cm/s. 3. 50 to 69% stenosis=ICA PSV of 125 to 230 cm/s: ration 2.0 ? 4.0: ICA EDV 40-100 cm/s. 4. Greater than 70% stenosis to near occlusion= ICA PSV > 230 cm/s: ratio > 4.0: ICA EDV > 100 cm/s. 5. Near occlusion= ICA PSV velocities may be low or undetectable: variable ratio and ICA EDV. 6. Total occlusion=unable to detect flow.
[2019-02-21] MEDS: FUROSEMIDE 10 MG/ML 10 ML VIAL IV SCH (08:14)
[2019-02-21] MEDS: TAMSULOSIN 0.4 MG CAP.ER.24H PO SCH ×2 (08:15→21:16)
[2019-02-21] MEDS: NITROGLYCERIN OINT 1 INCH/GM PACKET TOPICAL SCH ×4 (08:15→21:19)
[2019-02-21] MEDS: METOPROLOL TARTRATE 25 MG TAB PO SCH ×2 (08:15→17:22)
[2019-02-21] MEDS: SPIRONOLACTONE 25 MG TAB PO SCH (08:15)
[2019-02-21] MEDS: APIXABAN 5 MG TAB PO SCH ×2 (08:15→21:15)
[2019-02-21] MEDS: FERROUS SULFATE 325 MG TAB PO SCH (08:15)
[2019-02-21] MEDS: hydrALAZINE HCL 10 MG TAB PO SCH ×2 (08:15→21:18)
[2019-02-21 11:02] LABS: Glucose,Whole Blood 277 mg/dL (75-99)
[2019-02-21] MEDS: THIAMINE 100 MG TAB PO SCH (12:28)
[2019-02-21] MEDS: FOLIC ACID 1 MG TAB PO SCH (12:28)
[2019-02-21] MEDS: MULTIVITAMINS, THERA 1 EACH TAB PO SCH (12:28)
--- NOTE | 2019-02-21 13:45 | P.PN ---
Subjective Patient is seen in follow-up for chronic kidney disease. Patient has chronic kidney disease stage III Baseline creatinine in the range of 1.7-2. Currently maintained on IV Lasix 60 mg twice daily. He is nonoliguric. Edema has improved. Due to worsening BUN and fatigue, there was concern for uremia and he was started on hemodialysis. He underwent hemodialysis on February 18. However patient's mentation and fatigue remained unchanged after dialysis. Today he is awake and alert. Feels better. Urine output is good. Vital signs are stable. General: The patient appeared well nourished and normally developed. HEENT: Head exam is unremarkable. Neck is without jugular venous distension. LUNGS: Breath sounds decreased. HEART: Rate and Rhythm are regular. First and second heart sounds normal. No murmurs, rubs or gallops. ABDOMEN: Abdominal exam reveals normal bowel sounds. Non-tender and non- distended. EXTREMITITES: Trace edema. Objective - Vital Signs Vital signs: Vital Signs Temp 97.3 F L 02/21/19 11:53 Pulse 90 02/21/19 11:53 Resp 16 02/21/19 11:53 BP 119/58 02/21/19 11:53 Pulse Ox 95 02/21/19 11:53 Intake & Output 02/20/19 02/21/19 02/21/19 18:59 06:59 18:59 Intake Total 0 240 Output Total 1400 850 800 Balance -1400 -850 -560 Weight 80 kg 79.1 kg Intake: Oral 0 240 Output: Urine 1400 600 800 Post Void Residual 250 Other: Voiding Method Toilet # Voids 1 # Bowel Movements 1 - Labs CBC & Chem 7: 02/20/19 09:48 02/21/19 06:46 Labs: Abnormal Lab Results - Last 24 Hours (Table) 02/20/19 02/20/19 02/21/19 Range/Units 16:50 20:54 06:43 Chloride (98-107) mmol/L Carbon Dioxide (22-30) mmol/L BUN (9-20) mg/dL Creatinine (0.66-1.25) mg/dL Glucose (74-99) mg/dL POC Glucose (mg/dL) 256 H 278 H 185 H (75-99) mg/dL Urine Protein (Negative) Urine Mucus (None) /hpf 02/21/19 02/21/19 02/21/19 Range/Units 06:46 07:06 11:01 Chloride 95 L (98-107) mmol/L Carbon Dioxide 36 H (22-30) mmol/L BUN 109 H* (9-20) mg/dL Creatinine 1.77 H (0.66-1.25) mg/dL Glucose 168 H (74-99) mg/dL POC Glucose (mg/dL) 277 H (75-99) mg/dL Urine Protein 1+ H (Negative) Urine Mucus Rare H (None) /hpf Assessment and Plan Plan: Assessment: 1. Chronic kidney disease stage III secondary to cardiorenal syndrome. Baseline creatinine in the range of 1.7-2 recently. Due to rising BUN and worsening fatigue, he was started on hemodialysis and underwent 1 treatment on February 18. Mentation didn't improve after dialysis therefore doubt uremia. Today he is doing much better. 2 Volume overload. Improving. 3. Systolic CHF with ejection fraction of 45-50% with moderate aortic stenosis and pulmonary hypertension. 4. Anemia of chronic kidney disease. Iron deficiency noted - status post 3 doses of IV iron. Maintained on Aranesp. 5. 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 Better. 6. Insulin-dependent diabetes mellitus. Plan: I will change Lasix to 60 mg orally twice daily. Continue to monitor renal function and urine output. Can likely discontinue dialysis catheter tomorrow. Repeat electrolytes in the morning.
--- NOTE | 2019-02-21 14:47 | P.PN ---
Subjective Progress Note Date: 02/21/19 This is a 78-year-old gentleman with history of coronary artery bypass grafting surgery back in December, subsequent to that he was transferred to [facility] with an infection in his leg, he did undergo a thoracentesis also at that time. Patient continues to have issues with fluid in his lungs and fluid in his legs, he has gained approximately 14 pounds of weight and can only walk short distances, without being very short of breath. The patient is currently on IV Lasix drip, his weight is down 1 kg today overall through the night last night he states that he put out a significant amount of urine. Blood pressure 132/70 with a heart rate in the 80s, 94% on 3 L of oxygen. 02/13/2019 Patient seen and examined this morning,blood pressure 112/60 with a heart rate in the 80s, 96% on room air.White blood cell count 6.6, hemoglobin 8.3, platelet count 246. Sodium 136, potassium 4.5, BUN 121 and creatinine 2.1.on IV Lasix, dosing as per nephrology. 02/14/2019 Patient was seen and examined this morning, he states that he does feel well overall, better than he has, continues to have significant bilateral peripheral edema. White blood cell count 7.3, hemoglobin 8.7, platelet count 267. Sodium 136, potassium 4.2, BUN 129 and creatinine 2.2. He continues to be on IV diu retics, Zaroxolyn was placed on hold because of the elevated BUN by nephrology. 02/15/2019 Patient was seen and examined this morning, sitting up in his chair at bedside, overall feeling well however that BUN again today has gone up. Creatinine is down to 2.1. He continues to have significant bilateral peripheral edema. Dr. Strange the kidney doctor did have a discussion with the patient today regarding ultrafiltration. The patient has agreed to proceed with this. 02/16/2019 Patient seen and examined this morning sitting up in his chair at bedside. Anticipating ultrafiltration today.sodium 138, potassium 4.1, BUN 136 and creatinine 1.9. 02/20/2019 Patient was seen and examined this morning, somewhat unresponsive, not opening his eyes, he underwent a CT of the brain which did not reveal any evidence of acute stroke. He does appear to have more weakness on the right side of his body than the left. Neurology consultation has been requested. Blood pressure 115/70 with a heart rate of 90, 97% on 2 L. White blood cell count 6.2, hemoglobin 9.0, platelet count 190. Sodium 140, potassium 3.9, BUN 112 and creatinine 1.5. 02/21/2019 Patient was seen and examined today, much more alert and oriented, sitting up in the chair at bedside.I pressure 120/60 with a heart rate in the 90s, 95% on room air.sodium 140, potassium 3.9, BUN 109 and creatinine 1.7. Objective - Vital Signs Vital signs: Vital Signs Temp 97.3 F L 02/21/19 11:53 Pulse 90 02/21/19 11:53 Resp 16 02/21/19 11:53 BP 119/58 02/21/19 11:53 Pulse Ox 95 02/21/19 11:53 Intake & Output 02/20/19 02/21/19 02/21/19 18:59 06:59 18:59 Intake Total 0 462 Output Total 1400 850 800 Balance -1400 -850 -338 Weight 80 kg 79.1 kg Intake: Oral 0 462 Output: Urine 1400 600 800 Post Void Residual 250 Other: Voiding Method Toilet # Voids 1 # Bowel Movements 1 - Exam GENERAL EXAM: Alert, pleasant, 78-year-old male 3 L of oxygen with a pulse ox of 93% comfortable in no apparent distress. HEAD: Normocephalic/atraumatic. EYES: Normal reaction of pupils, equal size. Conjunctiva pink, sclera white. NOSE: Clear with pink turbinates. THROAT: No erythema or exudates. NECK: No masses, no JVD, no thyroid enlargement, no adenopathy. CHEST: No chest wall deformity. Symmetrical expansion. LUNGS: Equal air entry with diminished breath sounds CVS: Regular rate and rhythm, normal S1 and S2, no gallops, no murmurs, no rubs ABDOMEN: Soft, nontender. No hepatosplenomegaly, normal bowel sounds, no guarding or rigidity. EXTREMITIES: No clubbing, 1+ lower extremity edema, no cyanosis, 2+ pulses and upper and lower extremities. MUSCULOSKELETAL: Muscle strength and tone normal. SPINE: No scoliosis or deformity SKIN: No rashes CENTRAL NERVOUS SYSTEM: No focal deficits, tone is normal in all 4 extremities. PSYCHIATRIC: Alert and oriented -3. Appropriate affect. Intact judgment and insight. - Labs CBC & Chem 7: 02/20/19 09:48 02/21/19 06:46 Labs: Abnormal Lab Results - Last 24 Hours (Table) 02/20/19 02/20/19 02/21/19 Range/Units 16:50 20:54 06:43 Chloride (98-107) mmol/L Carbon Dioxide (22-30) mmol/L BUN (9-20) mg/dL Creatinine (0.66-1.25) mg/dL Glucose (74-99) mg/dL POC Glucose (mg/dL) 256 H 278 H 185 H (75-99) mg/dL Urine Protein (Negative) Urine Mucus (None) /hpf 02/21/19 02/21/19 02/21/19 Range/Units 06:46 07:06 11:01 Chloride 95 L (98-107) mmol/L Carbon Dioxide 36 H (22-30) mmol/L BUN 109 H* (9-20) mg/dL Creatinine 1.77 H (0.66-1.25) mg/dL Glucose 168 H (74-99) mg/dL POC Glucose (mg/dL) 277 H (75-99) mg/dL Urine Protein 1+ H (Negative) Urine Mucus Rare H (None) /hpf Assessment and Plan Plan: Assessment: #1. Acute exacerbation of chronic systolic congestive heart failure with mildly impaired systolic function with ejection fraction 45-50% #2. Coronary artery disease with history of recent bypass grafting #3. History of COPD #4. Hyperlipidemia #5. Hypertension #6. Atrial flutter #7. GERD/reflux #8. Osteoarthritis #9. BPH #10. Slowly healing leg ulcerations, cultures pending. #11 acute on chronic kidney disease, initiated on dialysis February 18 Plan From cardiology's perspective, we will continue with current medications. DNP note has been reviewed, I agree with a documented findings and plan of care. Patient was seen and examined.
[2019-02-21 17:13] LABS: Glucose,Whole Blood 277 mg/dL (75-99)
[2019-02-21] MEDS: FUROSEMIDE 20 MG TAB PO SCH (17:22)
[2019-02-21 20:57] LABS: Glucose,Whole Blood 350 mg/dL (75-99)
[2019-02-21] MEDS: MELATONIN 3 MG TABLET PO SCH (21:15)
[2019-02-21] MEDS: ATORVASTATIN 80 MG TAB PO SCH (21:16)
[2019-02-21] MEDS: ASPIRIN 81 MG PO SCH (21:16)
--- NOTE | 2019-02-21 23:50 | P.PN ---
Subjective Progress Note Date: 02/21/19 Principal diagnosis: Acute on chronic CHF with systolic dysfunction Acute on chronic kidney disease stage III. Cardiorenal syndrome. This is a pleasant 78 years old male with past medical history of heart failure, atrial fibrillation, coronary artery disease, type 2 diabetes mellitus, GERD, hyperlipidemia, hypertension,bilateral venous stasis dermatitis, chronic kidney disease stage III. Who presents with signs and symptoms of acute congestive heart failure and elevated troponin. His been able with it by painter touch up and was started on Lasix drip. On admission also his creatinine was 1.8/2.0. Business Broker recommended patient follow-up as an outpatient in 4-5 weeks for anemia and bone lesion. Today patient was more lethargic and sleepy however he is fully awake once been called his name. His dyspnea is improving with no chest pain. He has dry cough. No abdominal complaints or tenderness. No nausea vomiting and he starting diet well. No diarrhea. And no right upper quadrant pain or tenderness, negative Ag sign. Parenteral Lasix 60 mg 3 times a day. With indirect this is stable and his creatinine today is 2.17, sugar is controlled. Liver enzymes elevated. 02/14/2019 is more awake today, his breathing is improving, with no chest pain ho wever he still have the dry cough. Patient also denies abdominal pain including no pain or tenderness in his right upper quadrant and in view of possible disease seen on CAT scan. Patient is still have bilateral leg swelling with wound on the left leg more than the right leg. Infectious disease team are following the case. Patient is hemodynamically stable. Hemoglobin 8.7. BUN is 129, creatinine 2.2. Sodium 136. Sugar is controlled. Nanotechnology Engineering Technologist team input is appreciated. Patient continued on parenteral Lasix 60 mg. 02/15/2019 Patient is much better today is awake and more alert. His coughing is improving and his breathing is easing down. He denies chest pain or abdominal pain. He'll still has slight edema and wound in his left leg. Patient is currently on Eliquis, IV Lasix 60 mg lowered down to twice daily. Also patient is on Zaroxolyn 5 mg daily. Infectious disease input is appreciated, mostly patient will need only local wound care without antibiotics upon discharge for his leg wound. Patient might need ECF for inpatient rehab upon discharge 02/16/2019 Patient still feeling better. No chest pain or dyspnea. His lung exam looks clear. His still have some, but is improving. We have swelling in his lower extremity. He is tolerating diet well. Vital signs stable. Creatinine is stable at 1.9. BUN is 136. Sugar control is acceptable. Nanotechnology Engineering Technologist team are following the patient closely, continue with diuretics now and reassess his in 1-2 days if no improvement and consider ultrafiltration. Eliqucuba is on hold 02/17/2019 Patient is clinically stable with no chest pain or dyspnea. He is feeling more strong. This allowed some dry cough. Leg edema and wound in the lower extremity looks the same. Is currently on Lasix intravenously twice daily. Nephrology team are following the case closely and plan for ultrafiltration therapy. Patient might go for permacath placement tomorrow. 02/18/2019 Patient denied any complains of chest pain. No worsening shortness of breath. Otherwise patient is having significant leg swelling. And fluid overload. Nephrology is following for acute on chronic kidney disease and cardiorenal syndrome. Patient is being started on dialysis today. Otherwise no nausea vomiting or diarrhea or abdominal pain. 02/19/2019 Patient was started on hemodialysis yesterday with 2.5 L ultrafiltration. Creatinine level improved to 1.6 today. Hemodynamically stable. Still having significant leg swelling. No complaints of chest pain or worsening shortness of breath. No nausea vomiting or diarrhea. No other acute overnight issues. Asked and nephrology and cardiology is following. Patient is being continued on Lasix and spironolactone. Patient is hyperglycemic this afternoon and insulin sliding scale be added. 02/20/2019 Patient became more lethargic and non-arousable this morning and code stroke was called. CT head showed no acute intra-abdominal abnormality. Also mental status is most likely secondary to metabolic encephalopathy and also newly started on hemodialysis. Patient was also found have urinary retention with bladder scan showing greater than 800 mL. Straight catheter patient was done and considering Torres catheter if he continues to retain urine. Otherwise patient is being continued on Lasix and spironolactone. Creatinine level improved to 1.53 today. Nephrology and cardiology is following. No fever no chills. No nausea vomiting or diarrhea. Discussed with the family at bedside. Mental status did improve slightly in the afternoon. 02/21/2019 Patient is awake alert and oriented 3 today. Sitting in the chair comfortably. Leg swelling is improving. Patient is being continued on IV Lasix changed to by mouth. They'll function is fairly stable. Creatinine level I.7 today. Patient does have good urine output. Nephrology is not planning for any more dialysis. No complaints of fever or chills. No chest pain or worsening shortness of breath. No headache or dizziness or lightheadedness. Mentation is much improved. Anticipate discharge in next 1-2 days. Current medications reviewed. Objective - Vital Signs Vital signs: Vital Signs Temp 97.6 F 02/21/19 15:34 Pulse 74 02/21/19 17:00 Resp 16 02/21/19 15:35 BP 126/56 02/21/19 15:34 Pulse Ox 97 02/21/19 15:34 Intake & Output 02/21/19 02/21/19 02/22/19 06:59 18:59 06:59 Intake Total 702 Output Total 850 800 Balance -850 -98 Weight 79.1 kg Intake: Oral 702 Output: Urine 600 800 Post Void Residual 250 Other: Voiding Method Toilet # Voids 1 # Bowel Movements 1 - Exam PHYSICAL EXAMINATION: Patient is lying in the bed comfortably, no acute distress, awake alert and oriented.. HEENT: Normocephalic. Neck is supple. Pupils reactive. Nostrils clear. Oral cavity is moist. Ears reveal no drainage. Neck reveals no JVD, carotid bruits, or thyromegaly. CHEST EXAMINATION: Trachea is central. Symmetrical expansion. Right basilar crackles Lung vaughan clear to auscultation and percussion. CARDIAC: Normal S1, S2 with no gallops. No murmurs ABDOMEN: Soft. Bowel sounds normal. No organomegaly. No abdominal bruits. Extremities: 3+ edema. Legs are peter wrapped.. No clubbing or cyanosis Neurologically awake, alert, oriented x3 with well-coordinated movements. No focal deficits noted Skin: No rash or skin lesions. Psychiatric: Coperative. Nonsuicidal Musculoskeletal: No joint swelling or deformity. Normal range of motion. - Labs CBC & Chem 7: 02/20/19 09:48 02/21/19 06:46 Labs: Abnormal Lab Results - Last 24 Hours (Table) 02/20/19 02/21/19 02/21/19 Range/Units 20:54 06:43 06:46 Chloride 95 L (98-107) mmol/L Carbon Dioxide 36 H (22-30) mmol/L BUN 109 H* (9-20) mg/dL Creatinine 1.77 H (0.66-1.25) mg/dL Glucose 168 H (74-99) mg/dL POC Glucose (mg/dL) 278 H 185 H (75-99) mg/dL Urine Protein (Negative) Urine Mucus (None) /hpf 02/21/19 02/21/19 02/21/19 Range/Units 07:06 11:01 17:11 Chloride (98-107) mmol/L Carbon Dioxide (22-30) mmol/L BUN (9-20) mg/dL Creatinine (0.66-1.25) mg/dL Glucose (74-99) mg/dL POC Glucose (mg/dL) 277 H 277 H (75-99) mg/dL Urine Protein 1+ H (Negative) Urine Mucus Rare H (None) /hpf Assessment and Plan Assessment: Altered mental status. Likely metabolic encephalopathy. CTA negative for any acute CVA. Improved now Acute kidney injury with cardiorenal syndrome. BUN and Creatinine is improving. 1.93--1.6--1.53--1.77 . Patient had One time hemodialysis on 02/18/2019. Continue current dose of 60 mg of Lasix IV every 12. Changed to by mouth. Nephrology is following. Acute on chronic systolic congestive heart failure Elevated troponin Chronic atrial fibrillation on Eliquis History of coronary artery disease Hyperglycemia with uncontrolled Type 2 diabetes mellitus History of GERD Hyperlipidemia Hypertension History of bilateral venous is status dermatitis Chronic kidney disease stage III Urinary retention. Status post cardiac catheterization. Plan: This is a pleasant 78 years old male who presents because of acute CHF. Continue with diuretics. Continue with Lasix and spironolactone. Patient had Hemodialysis on 02.18. Breezy catheter was placed. Monitor creatinine.Labs and medication were reviewed.. Continue same treatment. Continue with symptomatic treatment. Resume home medication. Monitor lytes and vitals. DVT and GI prophylaxis. Further recommendations of the clinical course of the patient DVT prophylaxis: On Eliquis for atrial fibrillation.. GI Prophylaxis: Protonix PT/OT: Pending Prognosis is guarded Time with Patient: Greater than 30
[2019-02-22 06:49] LABS: Glucose,Whole Blood 180 mg/dL (75-99)
[2019-02-22] MEDS: ASCORBIC ACID 500 MG TAB PO SCH ×2 (06:51→15:47)
[2019-02-22] MEDS: INSULIN ASPART (NovoLOG) 100 UNIT/ML VIAL SQ SCH ×4 (06:51→22:13)
[2019-02-22] MEDS: PANTOPRAZOLE 40 MG TABLET PO SCH (06:51)
[2019-02-22] MEDS: INSULIN DETEMIR (LEVEMIR) 100 UNIT/ML SYR SQ SCH (07:01)
[2019-02-22] MEDS: IPRATROPIUM-ALBUTEROL 3 ML NEB INHALATION SCH ×4 (08:36→19:57)
[2019-02-22 08:46] LABS: Potassium 3.8 mmol/L (3.5-5.1)
[2019-02-22] MEDS: NITROGLYCERIN OINT 1 INCH/GM PACKET TOPICAL SCH ×4 (08:55→21:09)
[2019-02-22] MEDS: METOPROLOL TARTRATE 25 MG TAB PO SCH ×2 (08:59→15:46)
[2019-02-22] MEDS: MULTIVITAMINS, THERA 1 EACH TAB PO SCH (08:59)
[2019-02-22] MEDS: THIAMINE 100 MG TAB PO SCH (08:59)
[2019-02-22] MEDS: TAMSULOSIN 0.4 MG CAP.ER.24H PO SCH ×2 (08:59→21:08)
[2019-02-22] MEDS: FERROUS SULFATE 325 MG TAB PO SCH (08:59)
[2019-02-22] MEDS: SPIRONOLACTONE 25 MG TAB PO SCH (08:59)
[2019-02-22] MEDS: hydrALAZINE HCL 10 MG TAB PO SCH ×2 (08:59→21:09)
[2019-02-22] MEDS: APIXABAN 5 MG TAB PO SCH ×2 (08:59→21:08)
[2019-02-22] MEDS: FUROSEMIDE 20 MG TAB PO SCH ×2 (09:00→15:46)
[2019-02-22] MEDS: FOLIC ACID 1 MG TAB PO SCH (09:00)
--- NOTE | 2019-02-22 10:46 | P.PN ---
Subjective Patient is seen in follow-up for chronic kidney disease. Patient has chronic kidney disease stage III Baseline creatinine in the range of 1.7-2. Currently maintained on oral Lasix 60 mg twice daily. He is nonoliguric. Edema has improved. Due to worsening BUN and fatigue, there was concern for uremia and he was started on hemodialysis. He underwent hemodialysis on February 18. However patient's mentation and fatigue remained unchanged after dialysis. Today he is awake and alert. Feels better. Urine output is good. Renal function stable. Vital signs are stable. General: The patient appeared well nourished and normally developed. HEENT: Head exam is unremarkable. Neck is without jugular venous distension. LUNGS: Breath sounds decreased. HEART: Rate and Rhythm are regular. First and second heart sounds normal. No murmurs, rubs or gallops. ABDOMEN: Abdominal exam reveals normal bowel sounds. Non-tender and non- distended. EXTREMITITES: Trace edema. Objective - Vital Signs Vital signs: Vital Signs Temp 96.9 F L 02/22/19 08:00 Pulse 94 02/22/19 08:50 Resp 18 02/22/19 08:00 BP 134/62 02/22/19 08:00 Pulse Ox 100 02/22/19 08:00 Intake & Output 02/21/19 02/22/19 02/22/19 18:59 06:59 18:59 Intake Total 702 720 Output Total 800 600 Balance -98 -600 720 Weight 79.5 kg Intake: Oral 702 720 Output: Urine 800 600 Other: Voiding Method Toilet Toilet # Voids 1 1 1 # Bowel Movements 1 1 - Labs CBC & Chem 7: 02/20/19 09:48 02/22/19 07:32 Labs: Abnormal Lab Results - Last 24 Hours (Table) 02/21/19 02/21/19 02/21/19 Range/Units 11:01 17:11 20:56 Chloride (98-107) mmol/L Carbon Dioxide (22-30) mmol/L BUN (9-20) mg/dL Creatinine (0.66-1.25) mg/dL Glucose (74-99) mg/dL POC Glucose (mg/dL) 277 H 277 H 350 H (75-99) mg/dL 02/22/19 02/22/19 Range/Units 06:47 07:32 Chloride 95 L (98-107) mmol/L Carbon Dioxide 33 H (22-30) mmol/L BUN 116 H* (9-20) mg/dL Creatinine 1.80 H (0.66-1.25) mg/dL Glucose 163 H (74-99) mg/dL POC Glucose (mg/dL) 180 H (75-99) mg/dL Assessment and Plan Plan: Assessment: 1. Chronic kidney disease stage III secondary to cardiorenal syndrome. Baseline creatinine in the range of 1.7-2 recently. Due to rising BUN and worsening fatigue, he was started on hemodialysis and underwent 1 treatment on February 18. Mentation didn't improve after dialysis therefore doubt uremia. Today he is doing much better. Renal function stable. 2 Volume overload. Improving. 3. Systolic CHF with ejection fraction of 45-50% with moderate aortic stenosis and pulmonary hypertension. 4. Anemia of chronic kidney disease. Iron deficiency noted - status post 3 doses of IV iron. Maintained on Aranesp. 5. 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 Better. 6. Insulin-dependent diabetes mellitus. Plan: Maintain Lasix 60 mg orally twice daily. Continue to monitor renal function and urine output. Discontinue dialysis catheter. Anticipate discharge soon. He will be going to rehab facility. Monitor renal function every 2-3 days. Follow up outpatient in the next 1-2 weeks.
[2019-02-22 11:47] LABS: Glucose,Whole Blood 240 mg/dL (75-99)
--- NOTE | 2019-02-22 15:49 | P.PN ---
Subjective Progress Note Date: 02/22/19 This is a 78-year-old gentleman with history of coronary artery bypass grafting surgery back in December, subsequent to that he was transferred to [facility] with an infection in his leg, he did undergo a thoracentesis also at that time. Patient continues to have issues with fluid in his lungs and fluid in his legs, he has gained approximately 14 pounds of weight and can only walk short distances, without being very short of breath. The patient is currently on IV Lasix drip, his weight is down 1 kg today overall through the night last night he states that he put out a significant amount of urine. Blood pressure 132/70 with a heart rate in the 80s, 94% on 3 L of oxygen. 02/13/2019 Patient seen and examined this morning,blood pressure 112/60 with a heart rate in the 80s, 96% on room air.White blood cell count 6.6, hemoglobin 8.3, platelet count 246. Sodium 136, potassium 4.5, BUN 121 and creatinine 2.1.on IV Lasix, dosing as per nephrology. 02/14/2019 Patient was seen and examined this morning, he states that he does feel well overall, better than he has, continues to have significant bilateral peripheral edema. White blood cell count 7.3, hemoglobin 8.7, platelet count 267. Sodium 136, potassium 4.2, BUN 129 and creatinine 2.2. He continues to be on IV diu retics, Zaroxolyn was placed on hold because of the elevated BUN by nephrology. 02/15/2019 Patient was seen and examined this morning, sitting up in his chair at bedside, overall feeling well however that BUN again today has gone up. Creatinine is down to 2.1. He continues to have significant bilateral peripheral edema. Dr. Strange the kidney doctor did have a discussion with the patient today regarding ultrafiltration. The patient has agreed to proceed with this. 02/16/2019 Patient seen and examined this morning sitting up in his chair at bedside. Anticipating ultrafiltration today.sodium 138, potassium 4.1, BUN 136 and creatinine 1.9. 02/20/2019 Patient was seen and examined this morning, somewhat unresponsive, not opening his eyes, he underwent a CT of the brain which did not reveal any evidence of acute stroke. He does appear to have more weakness on the right side of his body than the left. Neurology consultation has been requested. Blood pressure 115/70 with a heart rate of 90, 97% on 2 L. White blood cell count 6.2, hemoglobin 9.0, platelet count 190. Sodium 140, potassium 3.9, BUN 112 and creatinine 1.5. 02/21/2019 Patient was seen and examined today, much more alert and oriented, sitting up in the chair at bedside.I pressure 120/60 with a heart rate in the 90s, 95% on room air.sodium 140, potassium 3.9, BUN 109 and creatinine 1.7. 02/22/2019 Patient seen and examined this morning, overall he is doing well. I pressure 130/60 with a heart rate in 70s, 95% on room air. Sodium 140, potassium 3.8, BUN 116 and creatinine 1.8, magnesium 2.0. Objective - Vital Signs Vital signs: Vital Signs Temp 96.5 F L 02/22/19 11:34 Pulse 70 02/22/19 11:49 Resp 18 02/22/19 11:49 BP 130/61 02/22/19 11:34 Pulse Ox 95 02/22/19 11:34 Intake & Output 02/21/19 02/22/19 02/22/19 18:59 06:59 18:59 Intake Total 702 840 Output Total 800 600 Balance -98 -600 840 Weight 79.5 kg Intake: Oral 702 840 Output: Urine 800 600 Other: Voiding Method Toilet Toilet # Voids 1 1 1 # Bowel Movements 1 1 - Exam GENERAL EXAM: Alert, pleasant, 78-year-old male 3 L of oxygen with a pulse ox of 93% comfortable in no apparent distress. HEAD: Normocephalic/atraumatic. EYES: Normal reaction of pupils, equal size. Conjunctiva pink, sclera white. NOSE: Clear with pink turbinates. THROAT: No erythema or exudates. NECK: No masses, no JVD, no thyroid enlargement, no adenopathy. CHEST: No chest wall deformity. Symmetrical expansion. LUNGS: Equal air entry with diminished breath sounds CVS: Regular rate and rhythm, normal S1 and S2, no gallops, no murmurs, no rubs ABDOMEN: Soft, nontender. No hepatosplenomegaly, normal bowel sounds, no guarding or rigidity. EXTREMITIES: No clubbing, 1+ lower extremity edema, no cyanosis, 2+ pulses and upper and lower extremities. MUSCULOSKELETAL: Muscle strength and tone normal. SPINE: No scoliosis or deformity SKIN: No rashes CENTRAL NERVOUS SYSTEM: No focal deficits, tone is normal in all 4 extremities. PSYCHIATRIC: Alert and oriented -3. Appropriate affect. Intact judgment and insight. - Labs CBC & Chem 7: 02/20/19 09:48 02/22/19 07:32 Labs: Abnormal Lab Results - Last 24 Hours (Table) 02/21/19 02/21/19 02/22/19 Range/Units 17:11 20:56 06:47 Chloride (98-107) mmol/L Carbon Dioxide (22-30) mmol/L BUN (9-20) mg/dL Creatinine (0.66-1.25) mg/dL Glucose (74-99) mg/dL POC Glucose (mg/dL) 277 H 350 H 180 H (75-99) mg/dL 02/22/19 02/22/19 Range/Units 07:32 11:45 Chloride 95 L (98-107) mmol/L Carbon Dioxide 33 H (22-30) mmol/L BUN 116 H* (9-20) mg/dL Creatinine 1.80 H (0.66-1.25) mg/dL Glucose 163 H (74-99) mg/dL POC Glucose (mg/dL) 240 H (75-99) mg/dL Assessment and Plan Plan: Assessment: #1. Acute exacerbation of chronic systolic congestive heart failure with mildly impaired systolic function with ejection fraction 45-50% #2. Coronary artery disease with history of recent bypass grafting #3. History of COPD #4. Hyperlipidemia #5. Hypertension #6. Atrial flutter #7. GERD/reflux #8. Osteoarthritis #9. BPH #10. Slowly healing leg ulcerations, cultures pending. #11 acute on chronic kidney disease, initiated on dialysis February 18 Plan From cardiology's perspective, we will continue with current medications. DNP note has been reviewed, I agree with a documented findings and plan of care. Patient was seen and examined.
[2019-02-22 16:40] LABS: Glucose,Whole Blood 229 mg/dL (75-99)
--- NOTE | 2019-02-22 19:07 | PN ---
PROGRESS NOTE DATE OF SERVICE: 02/22/2019. REFERRING PHYSICIAN: Dr. Stoddard. I had the pleasure of re-evaluating Neto Carrasco, who is currently sitting up in a bedside chair, quite alert, and recollects me from our previous evaluation. He states he was able to sleep in bed last night because his breathing has significantly improved and he is no longer coughing up "yellow oysters." He denies headache, has had no additional unresponsive episodes and is hoping to be discharged tomorrow. CURRENT MEDICATIONS: Tylenol, DuoNeb, Eliquis, vitamin C, aspirin 81 mg daily, Lipitor 80, Dulcolax, Aranesp, Feosol, folic acid, Lasix, hydralazine, NovoLog, Levemir, milk of magnesia, melatonin, Lopressor, Theragran-M, Protonix, Aldactone, Flomax, and thiamine. PHYSICAL EXAM: The patient is sitting in a bedside chair. Appears comfortable, in no acute distress, affect is normal. He is an accurate historian and appears of stated age. VITAL SIGNS: Blood pressure is 118/65 with a pulse of 74, respiratory rate 18, temperature 96.4. Skin/extremities: The distal lower extremities are wrapped from the knees to the toes bilaterally. Arthritic changes are noted in the hands. Head and neck no signs of trauma. NECK: Supple without meningeal signs. HIGHER CORTICAL FUNCTION: MENTAL STATUS: Patient was alert, oriented to self. He knew he was in the hospital in [place]. He knew the year, month was able to name and repeat. There was no aphasia or dysarthria. CRANIAL NERVES 2-12 are intact. MOTOR EXAMINATION: There is no pronator drift on the right. The patient has limited proximal movements of left upper extremity related to local shoulder issues. There is reducible bulk in hand intrinsic muscles. Strength is 5/5 throughout except at the interossei which are 4+ over 5 bilaterally, left deltoid 5-, right ankle dorsiflexor 4/5. REFLEXES: 1/4 in the upper extremities and patellae 0/4 at the ankles. Cotton's is absent. Plantar responses mute bilaterally. COORDINATION: [id number], heel-to- whitehead movements are intact. DIAGNOSTIC TESTING: The patient was scheduled for a followup CT of the brain on 02/21/2019, which he declined. Carotid ultrasound from 02/21/2019 demonstrated 50-69 percent stenosis of the left internal carotid artery, no significant stenosis on the right and antegrade flow in the vertebral arteries. LAB WORK: Demonstrates a sodium 140, potassium 3.8, BUN 116 with a creatinine 1.8. IMPRESSION: 1. Encephalopathy, resolved. A significant component of this was felt to be secondary to sleep deprivation and the patient is now resting much more comfortably as his breathing has improved. 2. Asymptomatic left carotid stenosis (50-69 %) per ultrasound without significant stenosis on the right and antegrade flow in the vertebral arteries. 3. Right foot drop, likely secondary to a prodrome of neuropathy versus peripheral neuropathy. 4. Acute on chronic systolic congestive heart failure, prompting this hospitalization. RECOMMENDATION: 1. I discussed the results of the carotid ultrasound, informed the patient that this represents an asymptomatic finding and should be monitored by his primary care physician on an outpatient basis. This finding is not felt to be responsible for the issues discussed above. 2. Risk factor modification. The patient is currently maintained on Eliquis, aspirin, and Lipitor. 3. Increase activity as tolerated. 4. Please feel free to contact me if there are further questions from a neurologic standpoint. Thank you for allowing me to participate in the care of your patient. MMODL / IJN: [id number] / SAIDA
[2019-02-22] MEDS: ASPIRIN 81 MG PO SCH (21:08)
[2019-02-22] MEDS: ATORVASTATIN 80 MG TAB PO SCH (21:08)
[2019-02-22] MEDS: MELATONIN 3 MG TABLET PO SCH (21:09)
[2019-02-22 21:35] LABS: Glucose,Whole Blood 274 mg/dL (75-99)
[2019-02-23 06:33] LABS: Glucose,Whole Blood 151 mg/dL (75-99)
[2019-02-23] MEDS: INSULIN ASPART (NovoLOG) 100 UNIT/ML VIAL SQ SCH ×2 (06:36→12:54)
[2019-02-23] MEDS: ASCORBIC ACID 500 MG TAB PO SCH (06:36)
[2019-02-23] MEDS: PANTOPRAZOLE 40 MG TABLET PO SCH (06:36)
[2019-02-23] MEDS: INSULIN DETEMIR (LEVEMIR) 100 UNIT/ML SYR SQ SCH (07:07)
[2019-02-23 07:17] LABS: Calcium 8.9 mg/dL (8.4-10.2); Magnesium 1.9 mg/dL (1.6-2.3)
[2019-02-23] MEDS: IPRATROPIUM-ALBUTEROL 3 ML NEB INHALATION SCH ×2 (08:12→11:09)
[2019-02-23 08:38] VITALS: TEMP 97.9
[2019-02-23] MEDS: FERROUS SULFATE 325 MG TAB PO SCH (08:39)
[2019-02-23] MEDS: SPIRONOLACTONE 25 MG TAB PO SCH (08:39)
[2019-02-23] MEDS: METOPROLOL TARTRATE 25 MG TAB PO SCH (08:39)
[2019-02-23] MEDS: TAMSULOSIN 0.4 MG CAP.ER.24H PO SCH (08:39)
[2019-02-23] MEDS: APIXABAN 5 MG TAB PO SCH (08:39)
[2019-02-23] MEDS: NITROGLYCERIN OINT 1 INCH/GM PACKET TOPICAL SCH ×2 (08:39→12:53)
[2019-02-23] MEDS: hydrALAZINE HCL 10 MG TAB PO SCH (08:39)
[2019-02-23] MEDS: FUROSEMIDE 20 MG TAB PO SCH (08:40)
--- NOTE | 2019-02-23 09:56 | P.PN ---
Subjective Patient is seen in follow-up for chronic kidney disease. Patient has chronic kidney disease stage III Baseline creatinine in the range of 1.7-2. Currently maintained on oral Lasix 60 mg twice daily. He is nonoliguric. Edema has improved. Due to worsening BUN and fatigue, there was concern for uremia and he was started on hemodialysis. He underwent hemodialysis on February 18. However patient's mentation and fatigue remained unchanged after dialysis. He's been awake and alert per the nurse. Currently sleeping. He is nonoliguric. Renal function stable. Vital signs are stable. General: The patient appeared well nourished and normally developed. HEENT: Head exam is unremarkable. Neck is without jugular venous distension. LUNGS: Breath sounds decreased. HEART: Rate and Rhythm are regular. First and second heart sounds normal. No mu rmurs, rubs or gallops. ABDOMEN: Abdominal exam reveals normal bowel sounds. Non-tender and non-dis tended. EXTREMITITES: Trace edema. Objective - Vital Signs Vital signs: Vital Signs Temp 97.9 F 02/23/19 08:38 Pulse 86 02/23/19 08:38 Resp 18 02/23/19 08:38 BP 121/60 02/23/19 08:38 Pulse Ox 94 L 02/23/19 08:38 Intake & Output 02/22/19 02/23/19 02/23/19 18:59 06:59 18:59 Intake Total 2244 100 Output Total 300 Balance 1944 100 Weight 79.3 kg Intake: Oral 2244 100 Output: Urine 300 Other: Voiding Method Toilet Toilet # Voids 1 # Bowel Movements 1 - Labs CBC & Chem 7: 02/20/19 09:48 02/23/19 06:47 Labs: Abnormal Lab Results - Last 24 Hours (Table) 02/22/19 02/22/19 02/22/19 Range/Units 11:45 16:38 21:34 Chloride (98-107) mmol/L Carbon Dioxide (22-30) mmol/L BUN (9-20) mg/dL Creatinine (0.66-1.25) mg/dL Glucose (74-99) mg/dL POC Glucose (mg/dL) 240 H 229 H 274 H (75-99) mg/dL 02/23/19 02/23/19 Range/Units 06:20 06:47 Chloride 97 L (98-107) mmol/L Carbon Dioxide 34 H (22-30) mmol/L BUN 117 H* (9-20) mg/dL Creatinine 1.74 H (0.66-1.25) mg/dL Glucose 136 H (74-99) mg/dL POC Glucose (mg/dL) 151 H (75-99) mg/dL Assessment and Plan Plan: Assessment: 1. Chronic kidney disease stage III secondary to cardiorenal syndrome. Baseline creatinine in the range of 1.7-2 recently. Due to rising BUN and worsening fatigue, he was started on hemodialysis and underwent 1 treatment on February 18. Mentation didn't improve after dialysis therefore doubt uremia. He's been doing much better. Renal function stable - cr 1.74 today. 2 Volume overload. Improved. 3. Systolic CHF with ejection fraction of 45-50% with moderate aortic stenosis and pulmonary hypertension. 4. Anemia of chronic kidney disease. Iron deficiency noted - status post 3 doses of IV iron. Maintained on Aranesp. 5. 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 Better. 6. Insulin-dependent diabetes mellitus. Plan: Maintain Lasix 60 mg orally twice daily. Continue to monitor renal function and urine output. Discontinued dialysis catheter. Anticipate discharge soon. He will be going to rehab facility. Monitor bmp every 2-3 days. Follow up outpatient in the next 1-2 weeks.
[2019-02-23 12:43] LABS: Glucose,Whole Blood 272 mg/dL (75-99)
[2019-02-23] MEDS: FOLIC ACID 1 MG TAB PO SCH (12:53)
[2019-02-23] MEDS: THIAMINE 100 MG TAB PO SCH (12:53)
[2019-02-23] MEDS: MULTIVITAMINS, THERA 1 EACH TAB PO SCH (12:53)
[2019-02-23] MEDS: DARBEPOETIN ALFA 40 MCG/0.4 ML SYRINGE SQ SCH (12:53)
--- NOTE | 2019-02-23 13:12 | P.PN ---
Subjective Progress Note Date: 02/22/19 Principal diagnosis: Acute on chronic CHF with systolic dysfunction Acute on chronic kidney disease stage III. Cardiorenal syndrome. This is a pleasant 78 years old male with past medical history of heart failure, atrial fibrillation, coronary artery disease, type 2 diabetes mellitus, GERD, hyperlipidemia, hypertension,bilateral venous stasis dermatitis, chronic kidney disease stage III. Who presents with signs and symptoms of acute congestive heart failure and elevated troponin. His been able with it by [employer] [facility] and was started on Lasix drip. On admission also his creatinine was 1.8/2.0. Scrap Crusher recommended patient follow-up as an outpatient in 4-5 weeks for anemia and bone lesion. Today patient was more lethargic and sleepy however he is fully awake once been called his name. His dyspnea is improving with no chest pain. He has dry cough. No abdominal complaints or tenderness. No nausea vomiting and he starting diet well. No diarrhea. And no right upper quadrant pain or tenderness, negative Ag sign. Parenteral Lasix 60 mg 3 times a day. With indirect this is stable and his creatinine today is 2.17, sugar is controlled. Liver enzymes elevated. 02/14/2019 is more awake today, his breathing is improving, with no chest pain ho wever he still have the dry cough. Patient also denies abdominal pain including no pain or tenderness in his right upper quadrant and in view of possible disease seen on CAT scan. Patient is still have bilateral leg swelling with wound on the left leg more than the right leg. Infectious disease team are following the case. Patient is hemodynamically stable. Hemoglobin 8.7. BUN is 129, creatinine 2.2. Sodium 136. Sugar is controlled. Power Plant Operator team input is appreciated. Patient continued on parenteral Lasix 60 mg. 02/15/2019 Patient is much better today is awake and more alert. His coughing is improving and his breathing is easing down. He denies chest pain or abdominal pain. He'll still has slight edema and wound in his left leg. Patient is currently on Eliquis, IV Lasix 60 mg lowered down to twice daily. Also patient is on Zaroxolyn 5 mg daily. Infectious disease input is appreciated, mostly patient will need only local wound care without antibiotics upon discharge for his leg wound. Patient might need ECF for inpatient rehab upon discharge 02/16/2019 Patient still feeling better. No chest pain or dyspnea. His lung exam looks clear. His still have some, but is improving. We have swelling in his lower extremity. He is tolerating diet well. Vital signs stable. Creatinine is stable at 1.9. BUN is 136. Sugar control is acceptable. Power Plant Operator team are following the patient closely, continue with diuretics now and reassess his in 1-2 days if no improvement and consider ultrafiltration. Eliqucuba is on hold 02/17/2019 Patient is clinically stable with no chest pain or dyspnea. He is feeling more strong. This allowed some dry cough. Leg edema and wound in the lower extremity looks the same. Is currently on Lasix intravenously twice daily. Nephrology team are following the case closely and plan for ultrafiltration therapy. Patient might go for permacath placement tomorrow. 02/18/2019 Patient denied any complains of chest pain. No worsening shortness of breath. Otherwise patient is having significant leg swelling. And fluid overload. Nephrology is following for acute on chronic kidney disease and cardiorenal syndrome. Patient is being started on dialysis today. Otherwise no nausea vomiting or diarrhea or abdominal pain. 02/19/2019 Patient was started on hemodialysis yesterday with 2.5 L ultrafiltration. Creatinine level improved to 1.6 today. Hemodynamically stable. Still having significant leg swelling. No complaints of chest pain or worsening shortness of breath. No nausea vomiting or diarrhea. No other acute overnight issues. Asked and nephrology and cardiology is following. Patient is being continued on Lasix and spironolactone. Patient is hyperglycemic this afternoon and insulin sliding scale be added. 02/20/2019 Patient became more lethargic and non-arousable this morning and code stroke was called. CT head showed no acute intra-abdominal abnormality. Also mental status is most likely secondary to metabolic encephalopathy and also newly started on hemodialysis. Patient was also found have urinary retention with bladder scan showing greater than 800 mL. Straight catheter patient was done and considering Torres catheter if he continues to retain urine. Otherwise patient is being continued on Lasix and spironolactone. Creatinine level improved to 1.53 today. Nephrology and cardiology is following. No fever no chills. No nausea vomiting or diarrhea. Discussed with the family at bedside. Mental status did improve slightly in the afternoon. 02/21/2019 Patient is awake alert and oriented 3 today. Sitting in the chair comfortably. Leg swelling is improving. Patient is being continued on IV Lasix changed to by mouth. They'll function is fairly stable. Creatinine level I.7 today. Patient does have good urine output. Nephrology is not planning for any more dialysis. No complaints of fever or chills. No chest pain or worsening shortness of breath. No headache or dizziness or lightheadedness. Mentation is much improved. Anticipate discharge in next 1-2 days. 02/22/2019 Patient is awake alert and oriented 3. No further episodes of altered mental status. Patient is able to make good urine output. Continued on Lasix and spironolactone. Creatinine level is 1.9 today. The hemodialysis catheter is being taken out today. Nephrology is following. Anticipate discharged to rehab in next 24 hours. his of chest pain or worsening shortness of breath. neck swelling is improving. patient is being continued on peter wrapping. Patient is able to ambulate in the hallway without much shortness of breath. No complaints of fever or chills. No nausea vomiting and diarrhea. Tolerating oral diet. Current medications reviewed. Objective - Vital Signs Vital signs: Vital Signs Temp 96.8 F L 02/22/19 16:00 Pulse 90 02/22/19 20:09 Resp 18 02/22/19 16:00 BP 118/65 02/22/19 16:00 Pulse Ox 93 L 02/22/19 16:00 Intake & Output 02/22/19 02/22/19 02/23/19 06:59 18:59 06:59 Intake Total 2244 Output Total 600 300 Balance -600 1944 Weight 79.5 kg Intake: Oral 2244 Output: Urine 600 300 Other: Voiding Method Toilet Toilet # Voids 1 1 # Bowel Movements 1 1 - Exam PHYSICAL EXAMINATION: Patient is lying in the bed comfortably, no acute distress, awake alert and oriented.. HEENT: Normocephalic. Neck is supple. Pupils reactive. Nostrils clear. Oral cavity is moist. Ears reveal no drainage. Neck reveals no JVD, carotid bruits, or thyromegaly. CHEST EXAMINATION: Trachea is central. Symmetrical expansion. Right basilar crackles. Otherwise Lung vaughan clear to auscultation and percussion. CARDIAC: Normal S1, S2 with no gallops. No murmurs ABDOMEN: Soft. Bowel sounds normal. No organomegaly. No abdominal bruits. Extremities: 2+ edema. Legs are peter wrapped.. No clubbing or cyanosis Neurologically awake, alert, oriented x3 with well-coordinated movements. No focal deficits noted Skin: No rash or skin lesions. Psychiatric: Coperative. Nonsuicidal Musculoskeletal: No joint swelling or deformity. Normal range of motion. - Labs CBC & Chem 7: 02/20/19 09:48 02/23/19 06:47 Labs: Abnormal Lab Results - Last 24 Hours (Table) 02/22/19 02/22/19 02/22/19 Range/Units 06:47 07:32 11:45 Chloride 95 L (98-107) mmol/L Carbon Dioxide 33 H (22-30) mmol/L BUN 116 H* (9-20) mg/dL Creatinine 1.80 H (0.66-1.25) mg/dL Glucose 163 H (74-99) mg/dL POC Glucose (mg/dL) 180 H 240 H (75-99) mg/dL 02/22/19 02/22/19 Range/Units 16:38 21:34 Chloride (98-107) mmol/L Carbon Dioxide (22-30) mmol/L BUN (9-20) mg/dL Creatinine (0.66-1.25) mg/dL Glucose (74-99) mg/dL POC Glucose (mg/dL) 229 H 274 H (75-99) mg/dL Assessment and Plan Assessment: Altered mental status. Likely metabolic encephalopathy. CTA negative for any acute CVA. Improved now. Back to baseline. Acute kidney injury with cardiorenal syndrome. BUN and Creatinine is improving. 1.93--1.6--1.53--1.77--1.9 . Patient had One time hemodialysis on 02/18/2019. Continue current dose of 60 mg of Lasix IV every 12. Lasix Changed to by mouth. Nephrology is following. Acute on chronic systolic congestive heart failure. mildly impaired systolic function with ejection fraction 45-50% Coronary artery disease with recent history of CABG Elevated troponin Chronic atrial fibrillation on Eliquis Hyperglycemia with uncontrolled Type 2 diabetes mellitus History of GERD Hyperlipidemia Hypertension History of bilateral venous is status dermatitis Chronic kidney disease stage III Urinary retention. Plan: This is a pleasant 78 years old male who presents because of acute CHF. Continue with diuretics. Continue with Lasix and spironolactone. Patient had one time Hemodialysis on 02.18. Breezy catheter was placed. Catheter removed today. Monitor creatinine.Labs and medication were reviewed.. Continue same treatment. Continue with symptomatic treatment. Resume home medication. Monitor lytes and vitals. DVT and GI prophylaxis. Further recommendations of the clinical course of the patient DVT prophylaxis: On Eliquis for atrial fibrillation.. GI Prophylaxis: Protonix PT/OT: Pending Prognosis is guarded Time with Patient: Greater than 30
--- NOTE | 2019-02-23 13:18 | P.DS ---
Providers Date of admission: 02/08/19 13:48 Expected date of discharge: 02/23/19 Attending physician: Elvira Stoddard Consults: 02/08/19 13:47 Consult Physician Routine Consulting Provider: Michael Bull Consult Reason/Comments: CHF, bronchospasm, pleural effusion Do you want consulting provider notified?: Yes Consult Physician Routine Consulting Provider: Rosendo Rocha Consult Reason/Comments: CHF, elevated troponin Do you want consulting provider notified?: Yes 02/08/19 22:07 Consult Physician Routine Consulting Provider: Bony Eldridge Consult Reason/Comments: le cellulitis/wounds Do you want consulting provider notified?: Yes 02/09/19 12:56 Consult Physician Routine Consulting Provider: Keron Barclay Consult Reason/Comments: abn renal function Do you want consulting provider notified?: Yes 02/11/19 12:42 Consult Physician Routine Consulting Provider: Luciano Mills Consult Reason/Comments: bone metastasis Do you want consulting provider notified?: Yes 02/16/19 09:35 Consult Physician Stat Consulting Provider: Crescencio Patrick Consult Reason/Comments: Needs temporary dialisis port. Do you want consulting provider notified?: Yes 02/20/19 11:10 Consult Physician Urgent Consulting Provider: Gareth Grijalva Consult Reason/Comments: AMS Do you want consulting provider notified?: Yes Primary care physician: Hayden Ramirez Hospital Course: Discharge diagnosis. Altered mental status. Likely metabolic encephalopathy versus dialysis disequilibrium. CTA negative for any acute CVA. Improved now. Back to baseline. Acute kidney injury with cardiorenal syndrome. BUN and Creatinine is improving. 1.93--1.6--1.53--1.77--1.9--1.8 . Patient had One time hemodialysis on 02/18/2019. Breezy removed. Continued dose of 60 mg of Lasix IV every 12 and spironolactone. Lasix Changed to by mouth. Nephrology is following. Acute on chronic systolic congestive heart failure. mildly impaired systolic function with ejection fraction 45-50% Coronary artery disease with recent history of CABG Elevated troponin. Unlikely acute OK. Chronic atrial fibrillation on Eliquis Hyperglycemia with uncontrolled Type 2 diabetes mellitus History of GERD Hyperlipidemia Hypertension History of bilateral venous is status dermatitis Chronic kidney disease stage III Urinary retention. This resolved Hospital course This is a pleasant 78 years old male with past medical history of heart failure, atrial fibrillation, coronary artery disease, type 2 diabetes mellitus, GERD, hyperlipidemia, hypertension,bilateral venous stasis dermatitis, chronic kidney disease stage III. Who presents with signs and symptoms of acute congestive heart failure and elevated troponin. His been able with it by certifier and was started on Lasix drip. On admission also his creatinine was 1.8/2.0. Welfare Adviser recommended patient follow-up as an outpatient in 4-5 weeks for anemia and bone lesion. Today patient was more lethargic and sleepy however he is fully awake once been called his name. His dyspnea is improving with no chest pain. He has dry cough. No abdominal complaints or tenderness. No nausea vomiting and he starting diet well. No diarrhea. And no right upper quadrant pain or tenderness, negative Ag sign. Parenteral Lasix 60 mg 3 times a day. With indirect this is stable and his creatinine today is 2.17, sugar is controlled. Liver enzymes elevated. 02/14/2019 is more awake today, his breathing is improving, with no chest pain however he still have the dry cough. Patient also denies abdominal pain including no pain or tenderness in his right upper quadrant and in view of possible disease seen on CAT scan. Patient is still have bilateral leg swelling with wound on the left leg more than the right leg. Infectious disease team are following the case. Patient is hemodynamically stable. Hemoglobin 8.7. BUN is 129, creatinine 2.2. Sodium 136. Sugar is controlled. Behavior Management Specialist team input is appreciated. Patient continued on parenteral Lasix 60 mg. 02/15/2019 Patient is much better today is awake and more alert. His coughing is improving and his breathing is easing down. He denies chest pain or abdominal pain. He'll still has slight edema and wound in his left leg. Patient is currently on Eliquis, IV Lasix 60 mg lowered down to twice daily. Also patient is on Zaroxolyn 5 mg daily. Infectious disease input is appreciated, mostly patient will need only local wound care without antibiotics upon discharge for his leg wound. Patient might need ECF for inpatient rehab upon discharge 02/16/2019 Patient still feeling better. No chest pain or dyspnea. His lung exam looks clear. His still have some, but is improving. We have swelling in his lower extremity. He is tolerating diet well. Vital signs stable. Creatinine is stable at 1.9. BUN is 136. Sugar control is acceptable. Behavior Management Specialist team are following the patient closely, continue with diuretics now and reassess his in 1-2 days if no improvement and consider ultrafiltration. Shae is on hold 02/17/2019 Patient is clinically stable with no chest pain or dyspnea. He is feeling more strong. This allowed some dry cough. Leg edema and wound in the lower extremity looks the same. Is currently on Lasix intravenously twice daily. Nephrology team are following the case closely and plan for ultrafiltration therapy. Patient might go for permacath placement tomorrow. 02/18/2019 Patient denied any complains of chest pain. No worsening shortness of breath. Otherwise patient is having significant leg swelling. And fluid overload. Nephrology is following for acute on chronic kidney disease and cardiorenal syndrome. Patient is being started on dialysis today. Otherwise no nausea vomiting or diarrhea or abdominal pain. 02/19/2019 Patient was started on hemodialysis yesterday with 2.5 L ultrafiltration. Creatinine level improved to 1.6 today. Hemodynamically stable. Still having significant leg swelling. No complaints of chest pain or worsening shortness of breath. No nausea vomiting or diarrhea. No other acute overnight issues. Asked and nephrology and cardiology is following. Patient is being continued on Lasix and spironolactone. Patient is hyperglycemic this afternoon and insulin sliding scale be added. 02/20/2019 Patient became more lethargic and non-arousable this morning and code stroke was called. CT head showed no acute intra-abdominal abnormality. Also mental status is most likely secondary to metabolic encephalopathy and also newly started on hemodialysis. Patient was also found have urinary retention with bladder scan showing greater than 800 mL. Straight catheter patient was done and considering Torres catheter if he continues to retain urine. Otherwise patient is being continued on Lasix and spironolactone. Creatinine level improved to 1.53 today. Nephrology and cardiology is following. No fever no chills. No nausea vomiting or diarrhea. Discussed with the family at bedside. Mental status did improve slightly in the afternoon. 02/21/2019 Patient is awake alert and oriented 3 today. Sitting in the chair comfortably. Leg swelling is improving. Patient is being continued on IV Lasix changed to by mouth. They'll function is fairly stable. Creatinine level I.7 today. Patient does have good urine output. Nephrology is not planning for any more dialysis. No complaints of fever or chills. No chest pain or worsening shortness of breath. No headache or dizziness or lightheadedness. Mentation is much improved. Anticipate discharge in next 1-2 days. 02/22/2019 Patient is awake alert and oriented 3. No further episodes of altered mental status. Patient is able to make good urine output. Continued on Lasix and spironolactone. Creatinine level is 1.9 today. The hemodialysis catheter is being taken out today. Nephrology is following. Anticipate discharged to rehab in next 24 hours. his of chest pain or worsening shortness of breath. neck swelling is improving. patient is being continued on peter wrapping. Patient is able to ambulate in the hallway without much shortness of breath. No complaints of fever or chills. No nausea vomiting and diarrhea. Tolerating oral diet. 02/23/2019 Patient is awake alert and oriented 3. Leg swelling is improving and is currently peter wrapped. Patient is being continued on Lasix and spironolactone. Creatinine level is 1.8 today and is fairly stable. There is some serosanguineous oozing from the femoral Breezy catheter. No active bleeding. Pressure bandages applied. Patient is able to tolerate oral diet and ambulate. Good urine output. Patient is hemodynamically stable. Currently being discharged to rehab. Follow-up BMP elevated to 3 days and nephrology clinic follow-up in next 2 weeks. Follow with cardiology and primary care physician. PHYSICAL EXAMINATION: Patient is lying in the bed comfortably, no acute distress, awake alert and oriented.. HEENT: Normocephalic. Neck is supple. Pupils reactive. Nostrils clear. Oral cavity is moist. Ears reveal no drainage. Neck reveals no JVD, carotid bruits, or thyromegaly. CHEST EXAMINATION: Trachea is central. Symmetrical expansion. Right basilar crackles. Otherwise Lung vaughan clear to auscultation and percussion. CARDIAC: Normal S1, S2 with no gallops. No murmurs ABDOMEN: Soft. Bowel sounds normal. No organomegaly. No abdominal bruits. Extremities: 2+ edema. Legs are peter wrapped.. No clubbing or cyanosis Neurologically awake, alert, oriented x3 with well-coordinated movements. No focal deficits noted Skin: No rash or skin lesions. Psychiatric: Coperative. Nonsuicidal Musculoskeletal: No joint swelling or deformity. Normal range of motion. Vital Signs 02/23/19 02/23/19 02/23/19 08:13 08:23 08:38 Temperature 97.9 F Pulse Rate 83 87 Pulse Rate [ 86 Pulse Oximetery ] Respiratory 18 Rate Blood Pressure 121/60 [Right Arm] O2 Sat by Pulse 94 L Oximetry Total time taken greater than 35 minutes including 18 minutes for counseling and coordination of care. Patient Condition at Discharge: Fair Plan - Discharge Summary Discharge Rx Participant: No New Discharge Prescriptions: New Spironolactone [Aldactone] 25 mg PO DAILY #30 tab Furosemide [Lasix] 60 mg PO BID@0900,1600 #60 tab hydrALAZINE HCL [Apresoline] 10 mg PO BID #60 tab Epoetin Samson [Procrit] 0 unit SQ Q7DAYS #4 vial Continue Ferrous Sulfate [Iron (65 MG Elemental)] 325 mg PO DAILY tab Ascorbic Acid [Vitamin C] 500 mg PO BID-W/MEALS tab Tamsulosin [Flomax] 0.4 mg PO BID Rosuvastatin Calcium [Crestor] 40 mg PO HS Melatonin 3 mg PO HS Aspirin EC [Ecotrin Low Dose] 81 mg PO HS Apixaban [Eliquis] 5 mg PO BID tab Famotidine [Pepcid] 20 mg PO DAILY tab Acetaminophen Tab [Tylenol] 500 mg PO Q6HR PRN tab PRN Reason: Fever And/ Or Pain Na Phos,M-B/Na Phos,Di-Ba [Fleet Adult] 133 ml RECTAL DAILY PRN PRN Reason: Constipation Bisacodyl [Dulcolax] 10 mg RECTAL DAILY PRN PRN Reason: Constipation Metoprolol Tartrate [Lopressor] 25 mg PO BID@0800,1700 Glucerna Shake 1 can PO BID Lactose-Reduced Food [Ensure Plus] 237 ml PO DAILY Magnesium Hydroxide [Milk of Magnesia Concentrate] 7,200 mg PO DAILY PRN PRN Reason: Constipation Changed Insulin Detemir (Levemir) [Levemir] 20 unit SQ DAILY@0700 #0 INSULIN ASPART (NovoLOG) [NovoLOG (formulary)] 4 unit SQ AC-TID #0 Discontinued hydrALAZINE HCL [Apresoline] 25 mg PO BID Furosemide [Lasix] 40 mg PO DAILY tab Insulin Detemir (Levemir) [Levemir] 5 unit SQ HS@2100 Discharge Medication List Ascorbic Acid [Vitamin C] 500 mg PO BID-W/MEALS tab 12/20/18 [Rx] Ferrous Sulfate [Iron (65 MG Elemental)] 325 mg PO DAILY tab 12/20/18 [Rx] Melatonin 3 mg PO HS 01/13/19 [History] Rosuvastatin Calcium [Crestor] 40 mg PO HS 01/13/19 [History] Tamsulosin [Flomax] 0.4 mg PO BID 01/13/19 [History] Aspirin EC [Ecotrin Low Dose] 81 mg PO HS 01/16/19 [History] Acetaminophen Tab [Tylenol] 500 mg PO Q6HR PRN tab 01/25/19 [Rx] Apixaban [Eliquis] 5 mg PO BID tab 01/25/19 [Rx] Famotidine [Pepcid] 20 mg PO DAILY tab 01/25/19 [Rx] Bisacodyl [Dulcolax] 10 mg RECTAL DAILY PRN 02/08/19 [History] Glucerna Shake 1 can PO BID 02/08/19 [History] Lactose-Reduced Food [Ensure Plus] 237 ml PO DAILY 02/08/19 [History] Magnesium Hydroxide [Milk of Magnesia Concentrate] 7,200 mg PO DAILY PRN 02/08/19 [History] Metoprolol Tartrate [Lopressor] 25 mg PO BID@0800,1700 02/08/19 [History] Na Phos,M-B/Na Phos,Di-Ba [Fleet Adult] 133 ml RECTAL DAILY PRN 02/08/19 [History] Furosemide [Lasix] 60 mg PO BID@0900,1600 #60 tab 02/22/19 [Rx] Spironolactone [Aldactone] 25 mg PO DAILY #30 tab 02/22/19 [Rx] hydrALAZINE HCL [Apresoline] 10 mg PO BID #60 tab 02/22/19 [Rx] Epoetin Samson [Procrit] 0 unit SQ Q7DAYS #4 vial 02/23/19 [Rx] INSULIN ASPART (NovoLOG) [NovoLOG (formulary)] 4 unit SQ AC-TID #0 02/23/19 [Rx] Insulin Detemir (Levemir) [Levemir] 20 unit SQ DAILY@0700 #0 02/23/19 [Rx] Follow up Appointment(s)/Referral(s): Hayden Ramirez MD [Primary Care Provider] - 1-2 days Ambulatory/Diagnostic Orders: Ambulatory Miscellaneous Order [MISC.AMB] Location: None Selected Activity/Diet/Wound Care/Special Instructions: Raul clancy Discharge Disposition: TRANSFER TO SNF/ECF
[2019-02-23 14:10] VITALS: BP 119/58; PULSE 68; RESP 16
--- NOTE | 2019-02-23 14:59 | P.PN ---
Subjective Progress Note Date: 02/23/19 This is a 78-year-old gentleman with history of coronary artery bypass grafting surgery back in December, subsequent to that he was transferred to [facility] with an infection in his leg, he did undergo a thoracentesis also at that time. Patient continues to have issues with fluid in his lungs and fluid in his legs, he has gained approximately 14 pounds of weight and can only walk short distances, without being very short of breath. The patient is currently on IV Lasix drip, his weight is down 1 kg today overall through the night last night he states that he put out a significant amount of urine. Blood pressure 132/70 with a heart rate in the 80s, 94% on 3 L of oxygen. 02/13/2019 Patient seen and examined this morning,blood pressure 112/60 with a heart rate in the 80s, 96% on room air.White blood cell count 6.6, hemoglobin 8.3, platelet count 246. Sodium 136, potassium 4.5, BUN 121 and creatinine 2.1.on IV Lasix, dosing as per nephrology. 02/14/2019 Patient was seen and examined this morning, he states that he does feel well overall, better than he has, continues to have significant bilateral peripheral edema. White blood cell count 7.3, hemoglobin 8.7, platelet count 267. Sodium 136, potassium 4.2, BUN 129 and creatinine 2.2. He continues to be on IV diu retics, Zaroxolyn was placed on hold because of the elevated BUN by nephrology. 02/15/2019 Patient was seen and examined this morning, sitting up in his chair at bedside, overall feeling well however that BUN again today has gone up. Creatinine is down to 2.1. He continues to have significant bilateral peripheral edema. Dr. Strange the kidney doctor did have a discussion with the patient today regarding ultrafiltration. The patient has agreed to proceed with this. 02/16/2019 Patient seen and examined this morning sitting up in his chair at bedside. Anticipating ultrafiltration today.sodium 138, potassium 4.1, BUN 136 and creatinine 1.9. 02/20/2019 Patient was seen and examined this morning, somewhat unresponsive, not opening his eyes, he underwent a CT of the brain which did not reveal any evidence of acute stroke. He does appear to have more weakness on the right side of his body than the left. Neurology consultation has been requested. Blood pressure 115/70 with a heart rate of 90, 97% on 2 L. White blood cell count 6.2, hemoglobin 9.0, platelet count 190. Sodium 140, potassium 3.9, BUN 112 and creatinine 1.5. 02/21/2019 Patient was seen and examined today, much more alert and oriented, sitting up in the chair at bedside.I pressure 120/60 with a heart rate in the 90s, 95% on room air.sodium 140, potassium 3.9, BUN 109 and creatinine 1.7. 02/22/2019 Patient seen and examined this morning, overall he is doing well. I pressure 130/60 with a heart rate in 70s, 95% on room air. Sodium 140, potassium 3.8, BUN 116 and creatinine 1.8, magnesium 2.0. 02/23/2019 Patient was seen and examined this morning, doing very well. He's been up ambulating in the hallway without any difficulty, anticipating transferred to rehab today. Objective - Vital Signs Vital signs: Vital Signs Temp 97.9 F 02/23/19 08:38 Pulse 68 02/23/19 11:50 Resp 16 02/23/19 11:50 BP 119/58 02/23/19 11:50 Pulse Ox 91 L 02/23/19 11:50 Intake & Output 02/22/19 02/23/19 02/23/19 18:59 06:59 18:59 Intake Total 2244 100 480 Output Total 300 1000 Balance 1944 100 -520 Weight 79.3 kg Intake: Oral 2244 100 480 Output: Urine 300 1000 Other: Voiding Method Toilet Toilet Toilet # Voids 1 # Bowel Movements 1 - Exam GENERAL EXAM: Alert, pleasant, 78-year-old male 3 L of oxygen with a pulse ox of 93% comfortable in no apparent distress. HEAD: Normocephalic/atraumatic. EYES: Normal reaction of pupils, equal size. Conjunctiva pink, sclera white. NOSE: Clear with pink turbinates. THROAT: No erythema or exudates. NECK: No masses, no JVD, no thyroid enlargement, no adenopathy. CHEST: No chest wall deformity. Symmetrical expansion. LUNGS: Equal air entry with diminished breath sounds CVS: Regular rate and rhythm, normal S1 and S2, no gallops, no murmurs, no rubs ABDOMEN: Soft, nontender. No hepatosplenomegaly, normal bowel sounds, no guarding or rigidity. EXTREMITIES: No clubbing, 1+ lower extremity edema, no cyanosis, 2+ pulses and upper and lower extremities. MUSCULOSKELETAL: Muscle strength and tone normal. SPINE: No scoliosis or deformity SKIN: No rashes CENTRAL NERVOUS SYSTEM: No focal deficits, tone is normal in all 4 extremities. PSYCHIATRIC: Alert and oriented -3. Appropriate affect. Intact judgment and insight. - Labs CBC & Chem 7: 02/20/19 09:48 02/23/19 06:47 Labs: Abnormal Lab Results - Last 24 Hours (Table) 02/22/19 02/22/19 02/23/19 Range/Units 16:38 21:34 06:20 Chloride (98-107) mmol/L Carbon Dioxide (22-30) mmol/L BUN (9-20) mg/dL Creatinine (0.66-1.25) mg/dL Glucose (74-99) mg/dL POC Glucose (mg/dL) 229 H 274 H 151 H (75-99) mg/dL 02/23/19 02/23/19 Range/Units 06:47 12:42 Chloride 97 L (98-107) mmol/L Carbon Dioxide 34 H (22-30) mmol/L BUN 117 H* (9-20) mg/dL Creatinine 1.74 H (0.66-1.25) mg/dL Glucose 136 H (74-99) mg/dL POC Glucose (mg/dL) 272 H (75-99) mg/dL Assessment and Plan Plan: Assessment: #1. Acute exacerbation of chronic systolic congestive heart failure with mildly impaired systolic function with ejection fraction 45-50% #2. Coronary artery disease with history of recent bypass grafting #3. History of COPD #4. Hyperlipidemia #5. Hypertension #6. Atrial flutter #7. GERD/reflux #8. Osteoarthritis #9. BPH #10. Slowly healing leg ulcerations, cultures pending. #11 acute on chronic kidney disease, initiated on dialysis February 18 Plan From cardiology's perspective, we will continue with current medications. He may be able to be transferred to rehab once cleared by primary. DNP note has been reviewed, I agree with a documented findings and plan of care. Patient was seen and examined.
== END 2019-02-23 14:45 | DRG 291 ==
LOC: EC 11:52 → 3SCARD 13:48
PROVIDERS: ADMIT Hospitalist; ATTEND Hospitalist
PROC: 5A1D70Z Performance of Urinary Filtration, Intermittent, Less than 6 Hours Per Day (ICD-10-PCS; principal; 2019-02-08)
PROC: 06HY33Z Insertion of Infusion Device into Lower Vein, Percutaneous Approach (ICD-10-PCS; 2019-02-18 08:00)
DX: I13.0 Hypertensive heart and chronic kidney disease with heart failure and stage 1 through stage 4 chronic kidney disease, or unspecified chronic kidney disease (principal); G93.41 Metabolic encephalopathy; I50.23 Acute on chronic systolic (congestive) heart failure; E87.4 Mixed disorder of acid-base balance; E87.1 Hypo-osmolality and hyponatremia; I48.92 Unspecified atrial flutter; L03.115 Cellulitis of right lower limb; L03.116 Cellulitis of left lower limb; N17.9 Acute kidney failure, unspecified; D50.9 Iron deficiency anemia, unspecified; E11.22 Type 2 diabetes mellitus with diabetic chronic kidney disease; E11.51 Type 2 diabetes mellitus with diabetic peripheral angiopathy without gangrene; E11.649 Type 2 diabetes mellitus with hypoglycemia without coma; E11.65 Type 2 diabetes mellitus with hyperglycemia; I27.20 Pulmonary hypertension, unspecified; J44.9 Chronic obstructive pulmonary disease, unspecified; E87.5 Hyperkalemia; E83.39 Other disorders of phosphorus metabolism; I65.22 Occlusion and stenosis of left carotid artery; R06.03 Acute respiratory distress; N18.3 Chronic kidney disease, stage 3 (moderate); D63.1 Anemia in chronic kidney disease; I35.0 Nonrheumatic aortic (valve) stenosis; I42.9 Cardiomyopathy, unspecified; I48.2 Chronic atrial fibrillation; E78.5 Hyperlipidemia, unspecified; I25.10 Atherosclerotic heart disease of native coronary artery without angina pectoris; I25.2 Old myocardial infarction; J98.01 Acute bronchospasm; K21.9 Gastro-esophageal reflux disease without esophagitis; N40.1 Benign prostatic hyperplasia with lower urinary tract symptoms; T50.2X5A Adverse effect of carbonic-anhydrase inhibitors, benzothiadiazides and other diuretics, initial encounter; M21.371 Foot drop, right foot; M19.91 Primary osteoarthritis, unspecified site; I87.2 Venous insufficiency (chronic) (peripheral); G47.00 Insomnia, unspecified; R33.8 Other retention of urine; R77.9 Abnormality of plasma protein, unspecified; M89.9 Disorder of bone, unspecified; Z79.01 Long term (current) use of anticoagulants; Z79.4 Long term (current) use of insulin; Z79.82 Long term (current) use of aspirin; Z79.899 Other long term (current) drug therapy; Z95.1 Presence of aortocoronary bypass graft; Z95.5 Presence of coronary angioplasty implant and graft; Z87.891 Personal history of nicotine dependence; Z95.0 Presence of cardiac pacemaker; Z96.1 Presence of intraocular lens; Z98.41 Cataract extraction status, right eye; Z98.42 Cataract extraction status, left eye; Z90.49 Acquired absence of other specified parts of digestive tract; Z82.49 Family history of ischemic heart disease and other diseases of the circulatory system
CPT/HCPCS: 36415; 36556; 70450; 71046; 71250; 74176; 76937; 77001; 78306; 80048; 80053; 80074; 81001; 82140; 82652; 82728; 83540; 83550; 83735; 83880; 84100; 84153; 84154; 84443; 84484; 85025; 85027; 85610; 85730; 87040; 87070; 87205; 90935; 93005; 93306; 93880; 94640; 94760; 96374; 99291

== ENCOUNTER 2019-02-24 14:29 | Emergency (ER) | payer MEDICARE, BC ==
[2019-02-24 14:38] VITALS: RESP 18; TEMP 97.4
[2019-02-24 15:06] LABS: Glucose,Whole Blood 187 mg/dL (75-99)
[2019-02-24 15:34] LABS: Anisocytosis Slight; Basophils # (A) 0.1 k/uL (0-0.2); Basophils % (A) 1 %; Eosinophils # (A) 0.5 k/uL (0-0.7); Eosinophils % (A) 7 %; HCT 33.7 % (39.0-53.0); HGB 10.3 gm/dL (13.0-17.5); Hypochromasia Marked; Lymphocytes # (A) 0.5 k/uL (1.0-4.8); Lymphocytes % (A) 7 %; MCH 24.5 pg (25.0-35.0); MCHC 30.5 g/dL (31.0-37.0); MCV 80.4 fL (80.0-100.0); Mean Platelet Volume 7.3; Microcytosis Slight; Monocytes # (A) 0.5 k/uL (0-1.0); Monocytes % (A) 7 %; Neutrophils # (A) 5.1 k/uL (1.3-7.7); Neutrophils % (A) 75 %; Platelet Count 204 k/uL (150-450); RBC 4.19 m/uL (4.30-5.90); RDW 19.3 % (11.5-15.5); WBC 6.7 k/uL (3.8-10.6)
[2019-02-24 15:45] LABS: Albumin 3.6 g/dL (3.5-5.0); Calcium 8.9 mg/dL (8.4-10.2); Potassium 4.2 mmol/L (3.5-5.1); Total Bilirubin 0.5 mg/dL (0.2-1.3); Total Protein 6.7 g/dL (6.3-8.2)
--- NOTE | 2019-02-24 15:48 | XR ---
EXAMINATION TYPE: XR chest 2V DATE OF EXAM: 02/24/2019 COMPARISON: 02/19/2019 HISTORY: Cough and chest pain TECHNIQUE: Frontal and lateral views of the chest are obtained. FINDINGS: There are small layering pleural effusions, left greater than right that are similar in co mparison to the prior of 02/19/2019. These pleural effusions to track up the chest creating thickened pleura. Mild interstitial pulmonary edema is seen. There is no enlarged cardiac mediastinal silhouett e and post CABG changes the chest. Mild multilevel degenerative changes of the spine are seen. No siz able pneumothorax. IMPRESSION: Similar small pleural effusions, left greater than right and mild interstitial pulmonary edema in comparison to the prior of 02/19/2019.
--- NOTE | 2019-02-24 15:55 | CT ---
EXAMINATION TYPE: CT brain wo con DATE OF EXAM: 02/24/2019 COMPARISON: 02/20/2019 HISTORY: Lethargy CT DLP: 1090.4 mGycm Automated exposure control for dose reduction was used. TECHNIQUE: CT scan of the head is performed without contrast. FINDINGS: There is no acute intracranial hemorrhage or midline shift identified. Dystrophic basal g anglia calcifications are present. Old lacunar injury is seen of the right lentiform nucleus. There i s diffuse ventricular and sulcal prominence consistent with diffuse age-related cerebral atrophy. Th ere is low-attenuation in the periventricular white matter consistent with chronic small vessel ische lizzy change. The globes are intact and the visualized sinuses are clear. IMPRESSION: 1. No acute intracranial hemorrhage or midline shift. 2. Old right lenticular lacunar injury. 3. Diffuse age-related cerebral atrophy and chronic small vessel ischemic change.
[2019-02-24 16:13] LABS: Appearance,Urine Clear (Clear); Bilirubin,Urine Negative (Negative); Blood,Urine Negative (Negative); Color,Urine Yellow; Glucose,Urine (UA) Negative (Negative); Ketones,Urine Negative (Negative); Leukocyte Esterase,Urine Negative (Negative); Mucus,Urine Rare /hpf; Nitrite,Urine Negative (Negative); PH, Urine 6.5 (5.0-8.0); Protein,Urine 1+ (Negative); RBC,Urine 4 /hpf (0-5); Specific Gravity,Urine 1.011 (1.001-1.035); Urobilinogen,Urine <2.0 mg/dL (<2.0)
[2019-02-24 16:56] VITALS: BP 123/63; PULSE 64
--- NOTE | 2019-02-24 17:01 | ED ---
Altered Mental Status HPI - General Chief Complaint: Altered Mental Status Stated Complaint: lethargy Time Seen by Provider: 02/24/19 15:03 Source: EMS Mode of arrival: EMS Limitations: altered mental status - History of Present Illness Initial Comments: Patient is a 78-year-old male presenting to the emergency Department via EMS from [facility] with complaints of altered mental status since this morning. Patient has many medical problems including history of bypass surgery and pleural effusions. Patient's states they checked his blood glucose and it was almost 300. Patient was very sleepy and unable to be aroused. They gave him some insulin and that's when EMS arrived and patient was coming around back to normal. Upon arrival to ER patient appears normal to and has no complaints at this time. Patient and family denies falls, or any other trauma. - Related Data Home Medications Medication Instructions Recorded Confirmed Melatonin 3 mg PO HS 01/13/19 02/08/19 Rosuvastatin Calcium [Crestor] 40 mg PO HS 01/13/19 02/08/19 Tamsulosin [Flomax] 0.4 mg PO BID 01/13/19 02/08/19 Aspirin EC [Ecotrin Low Dose] 81 mg PO HS 01/16/19 02/08/19 Bisacodyl [Dulcolax] 10 mg RECTAL DAILY PRN 02/08/19 02/08/19 Glucerna Shake 1 can PO BID 02/08/19 02/08/19 Lactose-Reduced Food [Ensure Plus] 237 ml PO DAILY 02/08/19 02/08/19 Magnesium Hydroxide [Milk of 7,200 mg PO DAILY PRN 02/08/19 02/08/19 Magnesia Concentrate] Metoprolol Tartrate [Lopressor] 25 mg PO BID@0800,1700 02/08/19 02/08/19 Na Phos,M-B/Na Phos,Di-Ba [Fleet 133 ml RECTAL DAILY PRN 02/08/19 02/08/19 Adult] Previous Rx's Medication Instructions Recorded Ascorbic Acid [Vitamin C] 500 mg PO BID-W/MEALS tab 12/20/18 Ferrous Sulfate [Iron (65 MG 325 mg PO DAILY tab 12/20/18 Elemental)] Acetaminophen Tab [Tylenol] 500 mg PO Q6HR PRN tab 01/25/19 Apixaban [Eliquis] 5 mg PO BID tab 01/25/19 Famotidine [Pepcid] 20 mg PO DAILY tab 01/25/19 Furosemide [Lasix] 60 mg PO BID@0900,1600 #60 tab 02/22/19 Spironolactone [Aldactone] 25 mg PO DAILY #30 tab 02/22/19 hydrALAZINE HCL [Apresoline] 10 mg PO BID #60 tab 02/22/19 Epoetin Samson [Procrit] 0 unit SQ Q7DAYS #4 vial 02/23/19 INSULIN ASPART (NovoLOG) [NovoLOG 4 unit SQ AC-TID #0 02/23/19 (formulary)] Insulin Detemir (Levemir) [Levemir] 20 unit SQ DAILY@0700 #0 02/23/19 Allergies Allergy/AdvReac Type Severity Reaction Status Date / Time No Known Allergies Allergy Verified 02/08/19 12:02 Review of Systems ROS Statement: Those systems with pertinent positive or pertinent negative responses have been documented in the HPI. ROS Other: All systems not noted in ROS Statement are negative. Past Medical History Past Medical History: Atrial Flutter, Coronary Artery Disease (CAD), Heart Failure, Diabetes Mellitus, GERD/Reflux, Hyperlipidemia, Hypertension, M yocardial Infarction ([place]), Osteoarthritis (OA), Prostate Disorder, Renal Disease, Vascular Disorder Additional Past Medical History / Comment(s): Pt recently admitted to [facility] on 01/16/19 with bilateral lower extremity cellulitis with multiple ulcers-positive for klebsiella/pseudomonas, uncontrolled diabetes, pleural effusion with R thoracentesis, exacerbation CHF. Other Hx: Paroxysmal Aflutter, PAD, chronic bilateral venous stasis dermatitis, lower extremety infection/blisters, chronic CHF, IDDM type II, BPH, post CABG urinary retention, CRD stage III, Last Myocardial Infarction Date:: 12/08/18 History of Any Multi-Drug Resistant Organisms: None Reported Past Surgical History: Appendectomy, Coronary Bypass/CABG, Heart Catheterization With Stent Additional Past Surgical History / Comment(s): 12/08/18 CABG 4 vessels, PCI with stents 2004, cardioversion for Aflutter, PICCs, midline IV, bilateral cataract removals/lens implants. Past Anesthesia/Blood Transfusion Reactions: No Reported Reaction Additional Past Anesthesia/Blood Transfusion Reaction / Comment(s): Pt received blood with CABG Date of Last Stent Placement:: 2004 Past Psychological History: No Psychological Hx Reported Smoking Status: Never smoker Past Alcohol Use History: None Reported Past Drug Use History: None Reported - Past Family History Mother Family Medical History: Myocardial Infarction ([place]) Additional Family Medical History / Comment(s): Mother had a [place] at the age of 64 Father Additional Family Medical History / Comment(s): Father had mental health issues after a "bad" truck accident. General Exam - General Exam Comments Initial Comments: GENERAL: Well-appearing, well-nourished and in no acute distress. HEAD: Atraumatic, normocephalic. EYES: Pupils equal round and reactive to light, extraocular movements intact, sclera anicteric, conjunctiva are normal. ENT: TMs normal, nares patent, oropharynx clear without exudates. Moist mucous membranes. NECK: Normal range of motion, supple without lymphadenopathy or JVD. LUNGS: Decreased breath sounds in bilateraly lower lobes. No wheezes rales or rhonchi. HEART: Regular rate and rhythm without murmurs, rubs or gallops. ABDOMEN: Soft, nontender, normoactive bowel sounds. No guarding, no rebound. No masses appreciated. : Deferred EXTREMITIES: Normal range of motion, no pitting or edema. No clubbing or cyanosis. NEUROLOGICAL: Cranial nerves II through XII grossly intact. Normal speech, normal gait. PSYCH: Normal mood, normal affect. SKIN: Warm, Dry, normal turgor, no rashes or lesions noted. Limitations: altered mental status Course Vital Signs 02/24/19 02/24/19 14:33 16:55 Temperature 97.4 F L Pulse Rate 66 64 Respiratory 18 18 Rate Blood Pressure 127/75 123/63 O2 Sat by Pulse 100 100 Oximetry Medical Decision Making - Medical Decision Making Patient is a 78-year-old male comes to the ER via EMS from [facility] with altered mental status times today. Patient's states his blood glucose was 300 and they had a hard time waking him up. Patient was given insulin and was starting to come around when EMS arrived. Patient appears at baseline upon arrival at ER. Patient has no complaints at this time. Exam is normal except mild decreased breath sounds lower lobes bilaterally. Blood glucose on arrival is 187. CBC is comparable to his last one. CMP shows elevated BUN at 112 and trop at 0.072, both of which have been elevated since the beginning of February. UA is within normal limits. Vital signs are stable. Chest x-ray shows small pleural effusions that have been present since comparison [address] of the brain shows no acute findings. Case was discussed with Dr. Lomeli who contacted [facility]den, who is aware of the patient's present labs and chest x-ray findings. Hayden was okay with patient going back to [facility]. Patient and patient's family was okay with this plan. They will drive him back to [facility], patient will be discharged. Return parameters were discussed. - Lab Data Result diagrams: 02/24/19 14:57 02/24/19 14:57 Lab Results 02/24/19 02/24/19 02/24/19 Range/Units 14:57 14:57 14:57 WBC 6.7 (3.8-10.6) k/uL RBC 4.19 L (4.30-5.90) m/uL Hgb 10.3 L (13.0-17.5) gm/dL Hct 33.7 L (39.0-53.0) % MCV 80.4 (80.0-100.0) fL MCH 24.5 L (25.0-35.0) pg MCHC 30.5 L (31.0-37.0) g/dL RDW 19.3 H (11.5-15.5) % Plt Count 204 (150-450) k/uL Neutrophils % 75 % Lymphocytes % 7 % Monocytes % 7 % Eosinophils % 7 % Basophils % 1 % Neutrophils # 5.1 (1.3-7.7) k/uL Lymphocytes # 0.5 L (1.0-4.8) k/uL Monocytes # 0.5 (0-1.0) k/uL Eosinophils # 0.5 (0-0.7) k/uL Basophils # 0.1 (0-0.2) k/uL Hypochromasia Marked Anisocytosis Slight Microcytosis Slight Sodium 141 (137-145) mmol/L Potassium 4.2 (3.5-5.1) mmol/L Chloride 98 (98-107) mmol/L Carbon Dioxide 32 H (22-30) mmol/L Anion Gap 11 mmol/L BUN 112 H* (9-20) mg/dL Creatinine 1.74 H (0.66-1.25) mg/dL Est GFR (CKD-EPI)AfAm 43 (>60 ml/min/1.73 sqM) Est GFR (CKD-EPI)NonAf 37 (>60 ml/min/1.73 sqM) Glucose 164 H (74-99) mg/dL POC Glucose (mg/dL) (75-99) mg/dL POC Glu Forensic Dna Analyst ID Plasma Lactic Acid Gutierrez 1.1 (0.7-2.0) mmol/L Calcium 8.9 (8.4-10.2) mg/dL Magnesium (1.6-2.3) mg/dL Total Bilirubin 0.5 (0.2-1.3) mg/dL AST 31 (17-59) U/L ALT 24 (21-72) U/L Alkaline Phosphatase 308 H (38-126) U/L Troponin I (0.000-0.034) ng/mL NT-Pro-B Natriuret Pep pg/mL Total Protein 6.7 (6.3-8.2) g/dL Albumin 3.6 (3.5-5.0) g/dL Urine Color Urine Appearance (Clear) Urine pH (5.0-8.0) Ur Specific [place] (1.001-1.035) Urine Protein (Negative) Urine Glucose (UA) (Negative) Urine Ketones (Negative) Urine Blood (Negative) Urine Nitrite (Negative) Urine Bilirubin (Negative) Urine Urobilinogen (<2.0) mg/dL Ur Leukocyte Esterase (Negative) Urine RBC (0-5) /hpf Urine WBC (0-5) /hpf Urine Mucus (None) /hpf 02/24/19 02/24/19 02/24/19 Range/Units 14:57 14:57 14:57 WBC (3.8-10.6) k/uL RBC (4.30-5.90) m/uL Hgb (13.0-17.5) gm/dL Hct (39.0-53.0) % MCV (80.0-100.0) fL MCH (25.0-35.0) pg MCHC (31.0-37.0) g/dL RDW (11.5-15.5) % Plt Count (150-450) k/uL Neutrophils % % Lymphocytes % % Monocytes % % Eosinophils % % Basophils % % Neutrophils # (1.3-7.7) k/uL Lymphocytes # (1.0-4.8) k/uL Monocytes # (0-1.0) k/uL Eosinophils # (0-0.7) k/uL Basophils # (0-0.2) k/uL Hypochromasia Anisocytosis Microcytosis Sodium (137-145) mmol/L Potassium (3.5-5.1) mmol/L Chloride (98-107) mmol/L Carbon Dioxide (22-30) mmol/L Anion Gap mmol/L BUN (9-20) mg/dL Creatinine (0.66-1.25) mg/dL Est GFR (CKD-EPI)AfAm (>60 ml/min/1.73 sqM) Est GFR (CKD-EPI)NonAf (>60 ml/min/1.73 sqM) Glucose (74-99) mg/dL POC Glucose (mg/dL) (75-99) mg/dL POC Glu Forensic Dna Analyst ID Plasma Lactic Acid Gutierrez (0.7-2.0) mmol/L Calcium (8.4-10.2) mg/dL Magnesium 2.2 (1.6-2.3) mg/dL Total Bilirubin (0.2-1.3) mg/dL AST (17-59) U/L ALT (21-72) U/L Alkaline Phosphatase (38-126) U/L Troponin I 0.072 H* (0.000-0.034) ng/mL NT-Pro-B Natriuret Pep 7490 pg/mL Total Protein (6.3-8.2) g/dL Albumin (3.5-5.0) g/dL Urine Color Urine Appearance (Clear) Urine pH (5.0-8.0) Ur Specific [place] (1.001-1.035) Urine Protein (Negative) Urine Glucose (UA) (Negative) Urine Ketones (Negative) Urine Blood (Negative) Urine Nitrite (Negative) Urine Bilirubin (Negative) Urine Urobilinogen (<2.0) mg/dL Ur Leukocyte Esterase (Negative) Urine RBC (0-5) /hpf Urine WBC (0-5) /hpf Urine Mucus (None) /hpf 02/24/19 02/24/19 Range/Units 15:05 15:59 WBC (3.8-10.6) k/uL RBC (4.30-5.90) m/uL Hgb (13.0-17.5) gm/dL Hct (39.0-53.0) % MCV (80.0-100.0) fL MCH (25.0-35.0) pg MCHC (31.0-37.0) g/dL RDW (11.5-15.5) % Plt Count (150-450) k/uL Neutrophils % % Lymphocytes % % Monocytes % % Eosinophils % % Basophils % % Neutrophils # (1.3-7.7) k/uL Lymphocytes # (1.0-4.8) k/uL Monocytes # (0-1.0) k/uL Eosinophils # (0-0.7) k/uL Basophils # (0-0.2) k/uL Hypochromasia Anisocytosis Microcytosis Sodium (137-145) mmol/L Potassium (3.5-5.1) mmol/L Chloride (98-107) mmol/L Carbon Dioxide (22-30) mmol/L Anion Gap mmol/L BUN (9-20) mg/dL Creatinine (0.66-1.25) mg/dL Est GFR (CKD-EPI)AfAm (>60 ml/min/1.73 sqM) Est GFR (CKD-EPI)NonAf (>60 ml/min/1.73 sqM) Glucose (74-99) mg/dL POC Glucose (mg/dL) 187 H (75-99) mg/dL POC Glu Forensic Dna Analyst ID Salgat, Tiffanie Plasma Lactic Acid Gutierrez (0.7-2.0) mmol/L Calcium (8.4-10.2) mg/dL Magnesium (1.6-2.3) mg/dL Total Bilirubin (0.2-1.3) mg/dL AST (17-59) U/L ALT (21-72) U/L Alkaline Phosphatase (38-126) U/L Troponin I (0.000-0.034) ng/mL NT-Pro-B Natriuret Pep pg/mL Total Protein (6.3-8.2) g/dL Albumin (3.5-5.0) g/dL Urine Color Yellow Urine Appearance Clear (Clear) Urine pH 6.5 (5.0-8.0) Ur Specific [place] 1.011 (1.001-1.035) Urine Protein 1+ H (Negative) Urine Glucose (UA) Negative (Negative) Urine Ketones Negative (Negative) Urine Blood Negative (Negative) Urine Nitrite Negative (Negative) Urine Bilirubin Negative (Negative) Urine Urobilinogen <2.0 (<2.0) mg/dL Ur Leukocyte Esterase Negative (Negative) Urine RBC 4 (0-5) /hpf Urine WBC 1 (0-5) /hpf Urine Mucus Rare H (None) /hpf Disposition Clinical Impression: Altered mental status Disposition: DC/TRNS INTERMEDIATE CARE FAC Condition: Stable Instructions (If sedation given, give patient instructions): Altered Mental Status (ED) Additional Instructions: Please return to the Emergency Department if symptoms worsen or any other concerns. Is patient prescribed a controlled substance at d/c from ED?: No Referrals: [facility],Clinic [Primary Care Provider] - 1-2 days - Out of Hospital Transfer - Req. Specs Out of Hospital Transfer - Requested Specifics: Other Non-Acute (Family will drive pt back to [facility])
== END 2019-02-24 17:13 ==
LOC: EC 14:29
DX: R41.82 Altered mental status, unspecified (principal); R53.83 Other fatigue; J90 Pleural effusion, not elsewhere classified; I25.10 Atherosclerotic heart disease of native coronary artery without angina pectoris; I13.0 Hypertensive heart and chronic kidney disease with heart failure and stage 1 through stage 4 chronic kidney disease, or unspecified chronic kidney disease; E11.22 Type 2 diabetes mellitus with diabetic chronic kidney disease; N18.3 Chronic kidney disease, stage 3 (moderate); I50.9 Heart failure, unspecified; E11.51 Type 2 diabetes mellitus with diabetic peripheral angiopathy without gangrene; E78.5 Hyperlipidemia, unspecified; I25.2 Old myocardial infarction; I48.92 Unspecified atrial flutter; Z79.82 Long term (current) use of aspirin; Z79.899 Other long term (current) drug therapy; Z95.1 Presence of aortocoronary bypass graft; Z95.5 Presence of coronary angioplasty implant and graft
CPT/HCPCS: 36415; 70450; 71046; 80053; 81001; 83605; 83735; 83880; 84484; 85025; 99285

== ENCOUNTER → 2019-07-05 | Outpatient (CLI) | payer MEDICARE, BC, OTHER ==
[2019-07-05 14:32] LABS: Anisocytosis Slight; HCT 37.9 % (39.0-53.0); MCH 25.5 pg (25.0-35.0); MCHC 31.6 g/dL (31.0-37.0); MCV 80.6 fL (80.0-100.0); Mean Platelet Volume 6.4; Microcytosis Slight; Platelet Count 270 k/uL (150-450); RDW 16.7 % (11.5-15.5); WBC 10.6 k/uL (3.8-10.6)
[2019-07-05 14:42] LABS: Calcium 8.9 mg/dL (8.4-10.2); Magnesium 2.1 mg/dL (1.6-2.3); Phosphorus 5.5 mg/dL (2.5-4.5); Uric Acid 5.5 mg/dL (3.5-8.5)
[2019-07-05 14:45] LABS: Potassium 6.1 mmol/L (3.5-5.1)
[2019-07-05 15:06] LABS: Amorphous Sediment,Urine Rare /hpf; Appearance,Urine Clear (Clear); Bilirubin,Urine Negative (Negative); Blood,Urine Small (Negative); Color,Urine Yellow; Glucose,Urine (UA) 2+ (Negative); Hyaline Casts,Urine 4 /lpf (0-2); Ketones,Urine Negative (Negative); Leukocyte Esterase,Urine Negative (Negative); Mucus,Urine Rare /hpf; Nitrite,Urine Negative (Negative); Protein,Urine 2+ (Negative); RBC,Urine 12 /hpf (0-5); Specific Gravity,Urine 1.011 (1.001-1.035); Urobilinogen,Urine <2.0 mg/dL (<2.0); WBC,Urine 1 /hpf (0-5)
--- NOTE | 2019-07-05 15:12 | US ---
EXAMINATION TYPE: US kidneys/renal and bladder DATE OF EXAM: 07/05/2019 COMPARISON: NONE CLINICAL HISTORY: N17.9 DANIELLE. No pain. Abnormal labs. EXAM MEASUREMENTS: Right Kidney: 9.6 x 5.2 x 6.0 Left Kidney: 10.2 x 4.2 x 5.7 Right Kidney: No hydronephrosis or masses seen Left Kidney: lateral cystic appearing lesion seen = 0.8 x 0.9 x 0.9 cm Bladder: distended, anechoic Bilateral Jets not seen There is no evidence for hydronephrosis at this point in time. No nephrolithiasis is seen. No haydee s are identified. The urinary bladder is anechoic. Bilateral ureteral jets are seen. Trace right pl eural effusion is incidentally seen. IMPRESSION: No hydronephrosis or nephrolithiasis seen. Benign-appearing left renal lesion appears as a simple cyst. Trace right pleural effusion noted.
[2019-07-06 00:27] LABS: % Iron Saturation 10.77 (15.00-50.00)
[2019-07-06 00:37] LABS: Ferritin 90.9 ng/mL (22.0-322.0)
== END | disposition home or self-care (01) ==
LOC: RADUSWWP 13:57
PROVIDERS: ATTEND Nurse Practitioner Family
DX: N17.9 Acute kidney failure, unspecified (principal)
CPT/HCPCS: 36415; 76770; 80048; 81001; 82306; 82728; 83540; 83550; 83735; 83970; 84100; 84550; 85027

== ENCOUNTER 2019-10-30 16:45 | Inpatient (IN) | payer MEDICARE, BC ==
--- NOTE | 2019-10-30 17:25 | ED ---
General Adult HPI - General Chief complaint: Shortness of Breath Stated complaint: SOB/fluid on lungs Time Seen by Provider: 10/30/19 17:15 Source: patient, family Mode of arrival: ambulatory - History of Present Illness Initial comments: Patient is 79-year-old male with history of [place], heart failure presenting to the emergency room with a chief complaint shortness of breath. Patient states he felt gradual increase in dyspnea over the last 3 weeks. States also having a productive cough with clear sputum production. States he's had previous thoracocentesis due to heart failure. The report one episode of chest pain few days ago but nothing since. No chest pain at the moment. No episodes of lightheadedness dizziness headache, blurry vision, or one-sided weakness or pa resthesias. States he went to the primary care in the [place] who obtain chest x- rays and told him to come to the ED due to fluid in his lungs. Denies any night sweats fevers or chills. States he has gained some weight over the last 3 days. Hot She does report taking blood thinners. Patient did take 81 mg aspirin today. Denies any hemoptysis or unilateral leg swelling. - Related Data Home Medications Medication Instructions Recorded Confirmed Melatonin 3 mg PO HS 01/13/19 10/30/19 Rosuvastatin Calcium [Crestor] 40 mg PO DAILY 01/13/19 10/30/19 Tamsulosin [Flomax] 0.4 mg PO BID 01/13/19 10/30/19 Aspirin EC [Ecotrin Low Dose] 81 mg PO HS 01/16/19 10/30/19 Metoprolol Tartrate [Lopressor] 25 mg PO BID 02/08/19 10/30/19 Ferrous Sulfate [Iron (65 MG 325 mg PO BID 07/27/19 10/30/19 Elemental)] Insulin Glargine [Lantus] 20 unit SQ HS 07/27/19 10/30/19 Albuterol Inhaler [Ventolin Hfa 2 puff INHALATION RT-Q4H PRN 10/30/19 10/30/19 Inhaler] Ammonium Lactate Cream [Lac-Hydrin 1 applic TOPICAL BID 10/30/19 10/30/19 12% Cream] Bacitracin Oint 1 applic TOPICAL BID PRN 10/30/19 10/30/19 Finasteride [Proscar] 5 mg PO DAILY 10/30/19 10/30/19 Furosemide [Lasix] 40 mg PO BID@0800,1500 10/30/19 10/30/19 Insulin Aspart [NovoLOG] See Protocol SQ ACHS 10/30/19 10/30/19 Ipratropium-Albuterol Nebulize 3 ml INHALATION RT-Q4H PRN 10/30/19 10/30/19 [Duoneb 0.5 mg-3 mg/3 ml Soln] Metolazone [Zaroxolyn] 2.5 mg PO Q48H 10/30/19 10/30/19 Psyllium Husk 100% [Metamucil 6 gm PO DAILY 10/30/19 10/30/19 Packet] Sodium Bicarbonate Tab 650 mg PO BID 10/30/19 10/30/19 Spironolactone 37.5 mg PO DAILY 10/30/19 10/30/19 hydrALAZINE HCL 25 mg PO BID 10/30/19 10/30/19 Previous Rx's Medication Instructions Recorded Ascorbic Acid [Vitamin C] 500 mg PO BID-W/MEALS tab 12/20/18 Acetaminophen Tab [Tylenol] 500 mg PO Q6HR PRN tab 01/25/19 Apixaban [Eliquis] 5 mg PO BID tab 01/25/19 Allergies Allergy/AdvReac Type Severity Reaction Status Date / Time atorvastatin [From Lipitor] AdvReac MUSCLE/JOINT Verified 10/30/19 19:33 PAIN Review of Systems ROS Statement: Those systems with pertinent positive or pertinent negative responses have been documented in the HPI. ROS Other: All systems not noted in ROS Statement are negative. Past Medical History Past Medical History: Atrial Flutter, Coronary Artery Disease (CAD), Heart Failure, Diabetes Mellitus, GERD/Reflux, Hyperlipidemia, Hypertension, Myocardial Infarction ([place]), Osteoarthritis ([place]), Prostate Disorder, Renal Disease, Vascular Disorder Additional Past Medical History / Comment(s): Pt recently admitted to [facility] on 01/16/19 with bilateral lower extremity cellulitis with multiple ulcers-positive for klebsiella/pseudomonas, uncontrolled diabetes, pleural effusion with R thoracentesis, exacerbation CHF. Other Hx: Paroxysmal Aflutter, PAD, chronic bilateral venous stasis dermatitis, lower extremety infection/blisters, chronic CHF, IDDM type II, BPH, post CABG urinary retention, CRD stage III, Last Myocardial Infarction Date:: 12/08/18 History of Any Multi-Drug Resistant Organisms: None Reported Past Surgical History: Appendectomy, Coronary Bypass/CABG, Heart Catheterization With Stent Additional Past Surgical History / Comment(s): 12/08/18 CABG 4 vessels, PCI with stents 2004, cardioversion for Aflutter, PICCs, midline IV, bilateral cataract removals/lens implants. Past Anesthesia/Blood Transfusion Reactions: No Reported Reaction Additional Past Anesthesia/Blood Transfusion Reaction / Comment(s): Pt received blood with CABG Date of Last Stent Placement:: 2004 Past Psychological History: No Psychological Hx Reported Smoking Status: Former smoker Past Alcohol Use History: None Reported Past Drug Use History: None Reported - Past Family History Mother Family Medical History: Myocardial Infarction ([place]) Additional Family Medical History / Comment(s): Mother had a [place] at the age of 64 Father Additional Family Medical History / Comment(s): Father had mental health issues after a "bad" truck accident. General Exam Limitations: no limitations General appearance: alert, in no apparent distress Head exam: Present: atraumatic, normocephalic Eye exam: Present: normal appearance Pupils: Present: normal accommodation ENT exam: Present: normal exam Neck exam: Present: normal inspection, full ROM Respiratory exam: Present: normal lung sounds bilaterally. Absent: wheezes, chest wall tenderness, accessory muscle use Cardiovascular Exam: Present: regular rate, normal rhythm, systolic murmur Extremities exam: Present: normal inspection, full ROM Back exam: Present: normal inspection, full ROM Neurological exam: Present: alert, oriented X3 Psychiatric exam: Present: normal affect, normal mood Skin exam: Present: warm, dry, intact, normal color Course Vital Signs 10/30/19 10/30/19 10/30/19 16:46 19:04 19:46 Temperature 98.0 F Pulse Rate 87 85 Respiratory 26 H 16 18 Rate Blood Pressure 160/77 165/90 O2 Sat by Pulse 95 100 Oximetry EKG Findings - EKG Comments: EKG Findings:: A flutter. Ventricular rate 85, QRS 150, QTC 502. Medical Decision Making - Medical Decision Making Patient is 79-year-old male history of an [place] and heart failure presenting to emergency Department with a chief complaint of shortness of breath. Symptoms have been on for the last 3 weeks. Patient did report bilateral lower extremity edema at baseline although it has been increasing over the last 2 weeks. Did have one episode of chest pain several days ago but nothing since. On exam patient does have bilateral lower extremity edema. EKG shows atrial flutter and remains unchanged from his most recent one. Patient did have elevated BUN which is most likely causing the elevated troponin. Patient was given nitro in the ED. He does take Lasix twice a day. Patient was given a second dose of 40 mg IV Lasix in the ED. Patient does have elevated BNP at 18 K. Chest x-ray does show bilateral, mild pleural effusions with a interstitial pulmonary edema. Patient does appear to have CHF. Patient will be admitted for further medical management. Case discussed with . Admitting physician is Cardiology consulted - Lab Data Result diagrams: 10/30/19 17:31 10/30/19 17:31 Lab Results 10/30/19 10/30/19 10/30/19 Range/Units 17:31 17:31 17:31 WBC 8.9 (3.8-10.6) k/uL RBC 4.37 (4.30-5.90) m/uL Hgb 12.2 L (13.0-17.5) gm/dL Hct 39.2 (39.0-53.0) % MCV 89.6 (80.0-100.0) fL MCH 28.0 (25.0-35.0) pg MCHC 31.3 (31.0-37.0) g/dL RDW 15.8 H (11.5-15.5) % Plt Count 188 (150-450) k/uL Neutrophils % 82 % Lymphocytes % 5 % Monocytes % 6 % Eosinophils % 5 % Basophils % 1 % Neutrophils # 7.3 (1.3-7.7) k/uL Lymphocytes # 0.4 L (1.0-4.8) k/uL Monocytes # 0.5 (0-1.0) k/uL Eosinophils # 0.4 (0-0.7) k/uL Basophils # 0.1 (0-0.2) k/uL PT (9.0-12.0) sec INR (<1.2) APTT (22.0-30.0) sec Sodium 140 (137-145) mmol/L Potassium 4.9 (3.5-5.1) mmol/L Chloride 108 H (98-107) mmol/L Carbon Dioxide 21 L (22-30) mmol/L Anion Gap 11 mmol/L BUN 65 H (9-20) mg/dL Creatinine 2.42 H (0.66-1.25) mg/dL Est GFR (CKD-EPI)AfAm 29 (>60 ml/min/1.73 sqM) Est GFR (CKD-EPI)NonAf 25 (>60 ml/min/1.73 sqM) Glucose 111 H (74-99) mg/dL Plasma Lactic Acid Gutierrez 1.3 (0.7-2.0) mmol/L Calcium 8.5 (8.4-10.2) mg/dL Magnesium 2.4 H (1.6-2.3) mg/dL Total Bilirubin 0.4 (0.2-1.3) mg/dL AST 53 (17-59) U/L ALT 45 (4-49) U/L Alkaline Phosphatase 323 H (38-126) U/L Troponin I (0.000-0.034) ng/mL NT-Pro-B Natriuret Pep pg/mL Total Protein 6.2 L (6.3-8.2) g/dL Albumin 3.5 (3.5-5.0) g/dL 10/30/19 10/30/19 10/30/19 Range/Units 17:31 17:31 17:31 WBC (3.8-10.6) k/uL RBC (4.30-5.90) m/uL Hgb (13.0-17.5) gm/dL Hct (39.0-53.0) % MCV (80.0-100.0) fL MCH (25.0-35.0) pg MCHC (31.0-37.0) g/dL RDW (11.5-15.5) % Plt Count (150-450) k/uL Neutrophils % % Lymphocytes % % Monocytes % % Eosinophils % % Basophils % % Neutrophils # (1.3-7.7) k/uL Lymphocytes # (1.0-4.8) k/uL Monocytes # (0-1.0) k/uL Eosinophils # (0-0.7) k/uL Basophils # (0-0.2) k/uL PT 11.0 (9.0-12.0) sec INR 1.1 (<1.2) APTT 25.9 (22.0-30.0) sec Sodium (137-145) mmol/L Potassium (3.5-5.1) mmol/L Chloride (98-107) mmol/L Carbon Dioxide (22-30) mmol/L Anion Gap mmol/L BUN (9-20) mg/dL Creatinine (0.66-1.25) mg/dL Est GFR (CKD-EPI)AfAm (>60 ml/min/1.73 sqM) Est GFR (CKD-EPI)NonAf (>60 ml/min/1.73 sqM) Glucose (74-99) mg/dL Plasma Lactic Acid Gutierrez (0.7-2.0) mmol/L Calcium (8.4-10.2) mg/dL Magnesium (1.6-2.3) mg/dL Total Bilirubin (0.2-1.3) mg/dL AST (17-59) U/L ALT (4-49) U/L Alkaline Phosphatase (38-126) U/L Troponin I 0.046 H* (0.000-0.034) ng/mL NT-Pro-B Natriuret Pep 41326 pg/mL Total Protein (6.3-8.2) g/dL Albumin (3.5-5.0) g/dL Disposition Clinical Impression: Congestive heart failure, Elevated BUN, Peripheral edema, Elevated troponin Disposition: ADMITTED IP TO THIS HOSP Condition: Stable Instructions (If sedation given, give patient instructions): Heart Failure (ER) Additional Instructions: Patient will be admitted Is patient prescribed a controlled substance at d/c from ED?: No Referrals: [facility],Clinic [Primary Care Provider] - 1-2 days Time of Disposition: 20:14
[2019-10-30 17:45] LABS: Basophils # (A) 0.1 k/uL (0-0.2); Basophils % (A) 1 %; Eosinophils # (A) 0.4 k/uL (0-0.7); Eosinophils % (A) 5 %; HCT 39.2 % (39.0-53.0); HGB 12.2 gm/dL (13.0-17.5); Lymphocytes # (A) 0.4 k/uL (1.0-4.8); Lymphocytes % (A) 5 %; MCHC 31.3 g/dL (31.0-37.0); MCV 89.6 fL (80.0-100.0); Mean Platelet Volume 7.1; Monocytes # (A) 0.5 k/uL (0-1.0); Monocytes % (A) 6 %; Neutrophils # (A) 7.3 k/uL (1.3-7.7); Neutrophils % (A) 82 %; Platelet Count 188 k/uL (150-450); RBC 4.37 m/uL (4.30-5.90); RDW 15.8 % (11.5-15.5); WBC 8.9 k/uL (3.8-10.6)
[2019-10-30 17:54] LABS: INR 1.1 (<1.2); Partial Thromboplastin Time 25.9 sec (22.0-30.0)
[2019-10-30 17:58] LABS: Albumin 3.5 g/dL (3.5-5.0); Calcium 8.5 mg/dL (8.4-10.2); Magnesium 2.4 mg/dL (1.6-2.3); Potassium 4.9 mmol/L (3.5-5.1); Total Bilirubin 0.4 mg/dL (0.2-1.3); Total Protein 6.2 g/dL (6.3-8.2)
[2019-10-30] MEDS ORDERED: ASPIRIN 81 MG PO STA (18:05)
--- NOTE | 2019-10-30 18:19 | XR ---
EXAMINATION TYPE: XR chest 2V DATE OF EXAM: 10/30/2019 COMPARISON: 02/24/2019 HISTORY: 79-year-old male difficulty breathing, shortness of breath TECHNIQUE: PA and lateral views FINDINGS: Heart mildly moderately enlarged. Median sternotomy wires with postoperative clips in the mediastinum . Mild bilateral pleural effusions with bibasilar opacities and diffuse interstitial changes. IMPRESSION: Correlate for CHF with early interstitial pulmonary edema. Small pleural effusions with adjacent atel ectasis and/or consolidation.
[2019-10-30] MEDS ORDERED: NITROGLYCERIN SL TABS 0.4 MG TAB SUBLINGUAL PRN (18:33)
[2019-10-30] MEDS ORDERED: FUROSEMIDE 10 MG/ML 4 ML VIAL IV STA (18:42)
[2019-10-30 21:08] LABS: Glucose,Whole Blood 62 mg/dL (75-99)
[2019-10-30 21:25] LABS: Glucose,Whole Blood 78 mg/dL (75-99)
[2019-10-30] MEDS ORDERED: IPRATROPIUM-ALBUTEROL 3 ML NEB INHALATION PRN (21:35)
[2019-10-30] MEDS ORDERED: BACITRACIN 500 UNIT/GM OINT 28.4 GM TUBE TOPICAL PRN (21:35)
[2019-10-30] MEDS ORDERED: ALBUTEROL NEBULIZED 2.5 MG/3 ML INHALATION PRN (21:35)
[2019-10-30] MEDS ORDERED: ACETAMINOPHEN TAB 500 MG TAB PO PRN (21:35)
[2019-10-30] MEDS: FUROSEMIDE 10 MG/ML 4 ML VIAL IV SCH (21:42)
[2019-10-30] MEDS: ASPIRIN 81 MG PO SCH (21:46)
[2019-10-30] MEDS: TAMSULOSIN 0.4 MG CAP.ER.24H PO SCH (21:46)
[2019-10-30] MEDS: FERROUS SULFATE 325 MG TAB PO SCH (21:46)
[2019-10-30] MEDS: APIXABAN 5 MG TAB PO SCH (21:46)
[2019-10-30] MEDS: METOPROLOL TARTRATE 25 MG TAB PO SCH (21:46)
[2019-10-30] MEDS: SODIUM BICARBONATE TAB 650 MG TAB PO SCH (21:46)
[2019-10-30] MEDS: MELATONIN 3 MG TABLET PO SCH (21:46)
[2019-10-30] MEDS: hydrALAZINE HCL 25 MG TAB PO SCH (21:46)
[2019-10-30] MEDS: AMMONIUM LACTATE 12% CREAM 140 GM TUBE TOPICAL SCH (22:11)
[2019-10-31 06:36] LABS: Calcium 8.1 mg/dL (8.4-10.2); Magnesium 2.3 mg/dL (1.6-2.3); Potassium 4.8 mmol/L (3.5-5.1)
[2019-10-31 06:50] LABS: Glucose,Whole Blood 46 mg/dL (75-99)
[2019-10-31] MEDS: INSULIN ASPART (NovoLOG) 100 UNIT/ML VIAL SQ SCH ×4 (06:58→20:58)
[2019-10-31] MEDS: ASCORBIC ACID 500 MG TAB PO SCH ×2 (06:59→17:18)
[2019-10-31 07:01] LABS: Glucose,Whole Blood 75 mg/dL (75-99)
[2019-10-31 07:08] LABS: Glucose,Whole Blood 98 mg/dL (75-99)
[2019-10-31] MEDS: INSULIN DETEMIR (LEVEMIR) 100 UNIT/ML SYR SQ SCH (07:18)
[2019-10-31] MEDS ORDERED: ASPIRIN 325 MG TAB PO SCH (09:00)
[2019-10-31 10:07] VITALS: BMI 32.5
--- NOTE | 2019-10-31 10:32 | P.HPIM ---
History of Present Illness 79-year-old pleasant male with history of congestive heart failure chronic systolic dysfunction with mildly decreased decreased ejection fraction of 45-50% along with possible diastolic dysfunction came in with complaints of gradual onset of shortness of breath with orthopnea proximal nocturnal dyspnea and the patient had thoracentesis in the past for heart failure patient has been gaining weight about 30 pounds in last 2 months patient. The one of the diuretics were discontinued because of worsening renal failure and hyperkalemia since then he's been constantly gaining weight. Patient denied any fever chills dysuria patient does have pulmonary edema on the chest x-ray as well as a significant pedal edema along with elevated BNP. Review of Systems REVIEW OF SYSTEMS: CONSTITUTIONAL: No fever, no malaise, no fatigue. HEENT: No recent visual problems or hearing problems. Denied any sore throat. CARDIOVASCULAR: No chest pain, no palpitations, no syncope. PULMONARY no cough, no hemoptysis. GASTROINTESTINAL: No diarrhea, no nausea, no vomiting, no abdominal pain. NEUROLOGICAL: No headaches, no weakness, no numbness. HEMATOLOGICAL: Denies any bleeding or petechiae. GENITOURINARY: Denies any burning micturition, frequency, or urgency. MUSCULOSKELETAL/RHEUMATOLOGICAL: Denies any joint pain, swelling, or any muscle pain. ENDOCRINE: Denies any polyuria or polydipsia. The rest of the 14-point review of systems is negative. Past Medical History Past Medical History: Atrial Flutter, Coronary Artery Disease (CAD), Heart Failure, Diabetes Mellitus, GERD/Reflux, Hyperlipidemia, Hypertension, Myocardial Infarction (NC), Osteoarthritis (OA), Renal Disease, Vascular Disorder Additional Past Medical History / Comment(s): Pt recently admitted to [facility] on 01/16/19 with bilateral lower extremity cellulitis with multiple ulcers-positive for klebsiella/pseudomonas, uncontrolled diabetes, pleural effusion with R thora centesis, exacerbation CHF. Other Hx: Paroxysmal Aflutter, PAD, chronic bilateral venous stasis dermatitis, lower extremety infection/blisters, chronic CHF, IDDM type II, BPH, post CABG urinary retention, CRD stage III, Last Myocardial Infarction Date:: 12/08/18 History of Any Multi-Drug Resistant Organisms: None Reported Past Surgical History: Appendectomy, Coronary Bypass/CABG, Heart Catheterization With Stent Additional Past Surgical History / Comment(s): 12/08/18 CABG 4 vessels, PCI with stents 2004, cardioversion for Aflutter, bilateral cataract removals/lens implants. Past Anesthesia/Blood Transfusion Reactions: No Reported Reaction Additional Past Anesthesia/Blood Transfusion Reaction / Comment(s): Pt received blood with CABG Date of Last Stent Placement:: 2004 Past Psychological History: No Psychological Hx Reported Additional Psychological History / Comment(s): Single. No children. No pets. Remote tobacco use. No international travel since his experience. Worked on [employer] Smoking Status: Former smoker Past Alcohol Use History: None Reported Additional Past Alcohol Use History / Comment(s): Pt smoked for one month in 1963. He quit drinking 1973 Past Drug Use History: None Reported - Past Family History Mother Family Medical History: Myocardial Infarction (NC) Additional Family Medical History / Comment(s): Mother had a NC at the age of 64 Father Additional Family Medical History / Comment(s): Father had mental health issues after a "bad" truck accident. Medications and Allergies Home Medications Medication Instructions Recorded Confirmed Type Ascorbic Acid [Vitamin C] 500 mg PO BID-W/MEALS tab 12/20/18 10/30/19 Rx Melatonin 3 mg PO HS 01/13/19 10/30/19 History Rosuvastatin Calcium [Crestor] 40 mg PO DAILY 01/13/19 10/30/19 History Tamsulosin [Flomax] 0.4 mg PO BID 01/13/19 10/30/19 History Aspirin EC [Ecotrin Low Dose] 81 mg PO HS 01/16/19 10/30/19 History Acetaminophen Tab [Tylenol] 500 mg PO Q6HR PRN tab 01/25/19 10/30/19 Rx Apixaban [Eliquis] 5 mg PO BID tab 01/25/19 10/30/19 Rx Metoprolol Tartrate [Lopressor] 25 mg PO BID 02/08/19 10/30/19 History Ferrous Sulfate [Iron (65 MG 325 mg PO BID 07/27/19 10/30/19 History Elemental)] Insulin Glargine [Lantus] 20 unit SQ AC-BRKFST 07/27/19 10/30/19 History Albuterol Inhaler [Ventolin Hfa 2 puff INHALATION RT-Q4H PRN 10/30/19 10/30/19 History Inhaler] Ammonium Lactate Cream [Lac-Hydrin 1 applic TOPICAL BID 10/30/19 10/30/19 History 12% Cream] Bacitracin Oint 1 applic TOPICAL BID PRN 10/30/19 10/30/19 History Finasteride [Proscar] 5 mg PO DAILY 10/30/19 10/30/19 History Furosemide [Lasix] 40 mg PO BID@0800,1500 10/30/19 10/30/19 History Insulin Aspart [NovoLOG] See Protocol SQ ACHS 10/30/19 10/30/19 History Ipratropium-Albuterol Nebulize 3 ml INHALATION RT-Q4H PRN 10/30/19 10/30/19 History [Duoneb 0.5 mg-3 mg/3 ml Soln] Metolazone [Zaroxolyn] 2.5 mg PO Q48H 10/30/19 10/30/19 History Psyllium Husk 100% [Metamucil 6 gm PO DAILY 10/30/19 10/30/19 History Packet] Sodium Bicarbonate Tab 650 mg PO BID 10/30/19 10/30/19 History Spironolactone 37.5 mg PO DAILY 10/30/19 10/30/19 History hydrALAZINE HCL 25 mg PO BID 10/30/19 10/30/19 History Allergies Allergy/AdvReac Type Severity Reaction Status Date / Time atorvastatin [From Lipitor] AdvReac MUSCLE/JOINT Verified 10/30/19 19:33 PAIN Physical Exam Vitals: Vital Signs Temp Pulse Pulse Resp BP BP Pulse Ox 10/31/19 08:44 96.9 F L 67 18 146/69 100 10/31/19 03:42 66 16 10/31/19 03:41 98.0 F 66 16 132/74 100 10/30/19 23:32 67 16 10/30/19 23:30 97.7 F 67 16 130/71 99 10/30/19 21:09 97.9 F 74 18 149/80 98 10/30/19 20:39 98.0 F 88 18 141/86 100 10/30/19 19:46 18 10/30/19 19:04 85 16 165/90 100 10/30/19 16:46 98.0 F 87 26 H 160/77 95 Intake and Output 10/30/19 10/31/19 10/31/19 22:59 06:59 14:59 Intake Total 240 Output Total 800 Balance -800 240 Intake: Oral 240 Output: Urine 800 Other: Voiding Method Toilet Weight 92.9 kg 91.4 kg 91.4 kg PHYSICAL EXAMINATION: GENERAL: The patient is alert and oriented x3, not in any acute distress. Well developed, well nourished. HEENT: Pupils are round and equally reacting to light. EOMI. No scleral icterus. No conjunctival pallor. Normocephalic, atraumatic. No pharyngeal erythema. No thyromegaly. CARDIOVASCULAR: S1 and S2 present. No murmurs, rubs, or gallops. Does have elevated JVD PULMONARY: Chest is clear to auscultation, no wheezing or crackles. ABDOMEN: Soft, nontender, nondistended, normoactive bowel sounds. No palpable organomegaly. MUSCULOSKELETAL: No joint swelling or deformity. EXTREMITIES: No cyanosis, clubbing, and bilateral pitting pedal edema. NEUROLOGICAL: Gross neurological examination did not reveal any focal deficits. SKIN: No rashes. Results CBC & Chem 7: 10/30/19 17:31 10/31/19 06:08 Labs: Abnormal Lab Results - Last 24 Hours (Table) 10/30/19 10/30/19 10/30/19 Range/Units 17:31 17:31 17:31 Hgb 12.2 L (13.0-17.5) gm/dL RDW 15.8 H (11.5-15.5) % Lymphocytes # 0.4 L (1.0-4.8) k/uL Chloride 108 H (98-107) mmol/L Carbon Dioxide 21 L (22-30) mmol/L BUN 65 H (9-20) mg/dL Creatinine 2.42 H (0.66-1.25) mg/dL Glucose 111 H (74-99) mg/dL POC Glucose (mg/dL) (75-99) mg/dL Calcium (8.4-10.2) mg/dL Magnesium 2.4 H (1.6-2.3) mg/dL Alkaline Phosphatase 323 H (38-126) U/L Troponin I 0.046 H* (0.000-0.034) ng/mL Total Protein 6.2 L (6.3-8.2) g/dL 10/30/19 10/31/19 10/31/19 Range/Units 21:06 06:08 06:46 Hgb (13.0-17.5) gm/dL RDW (11.5-15.5) % Lymphocytes # (1.0-4.8) k/uL Chloride 111 H (98-107) mmol/L Carbon Dioxide 20 L (22-30) mmol/L BUN 63 H (9-20) mg/dL Creatinine 2.37 H (0.66-1.25) mg/dL Glucose 39 L* (74-99) mg/dL POC Glucose (mg/dL) 62 L 46 L (75-99) mg/dL Calcium 8.1 L (8.4-10.2) mg/dL Magnesium (1.6-2.3) mg/dL Alkaline Phosphatase (38-126) U/L Troponin I (0.000-0.034) ng/mL Total Protein (6.3-8.2) g/dL Thrombosis Risk Factor Assmnt - Choose All That Apply Any of the Below Risk Factors Present?: Yes Each Factor Represents 1 point: Heart failure (<1month) Other Risk Factors: Yes Each Risk Factor Represents 3 Points: Age 75 years or older Other congenital or acquired thrombophilia - If yes, enter type in comment: No Thrombosis Risk Factor Assessment Total Risk Factor Score: 4 Thrombosis Risk Factor Assessment Level: Moderate Risk Assessment and Plan Plan: -That his heart failure chronic systolic as well as diastolic dysfunction with acute exacerbation patient on 40 IV twice a day of Lasix will be continued patient is also on Aldactone which will be continued but will closely monitor the potassium if it goes up and actually to be discontinued patient is also on metolazone which will be continued. 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 -Type 2 diabetes mellitus with mildly low blood sugar because of which I'm holding off on all his diabetic medications except for sliding scale insulin -Hypertension -Bilateral venous stasis dermatosis -Gastroesophageal reflux disease -Coronary artery disease next and having professor disease -Atrial fibrillation presently rate controlled sinus rhythm probably proximal A. fib continue with anticoagulation.
[2019-10-31] MEDS: FERROUS SULFATE 325 MG TAB PO SCH ×2 (10:33→19:48)
[2019-10-31] MEDS: SODIUM BICARBONATE TAB 650 MG TAB PO SCH ×2 (10:33→19:49)
[2019-10-31] MEDS: METOPROLOL TARTRATE 25 MG TAB PO SCH ×2 (10:33→19:49)
[2019-10-31] MEDS: APIXABAN 5 MG TAB PO SCH ×2 (10:33→19:48)
[2019-10-31] MEDS: TAMSULOSIN 0.4 MG CAP.ER.24H PO SCH ×2 (10:33→19:49)
[2019-10-31] MEDS: SPIRONOLACTONE 25 MG TAB PO SCH (10:33)
[2019-10-31] MEDS: FUROSEMIDE 10 MG/ML 4 ML VIAL IV SCH ×2 (10:33→19:48)
[2019-10-31] MEDS: hydrALAZINE HCL 25 MG TAB PO SCH ×2 (10:33→19:49)
[2019-10-31] MEDS: FINASTERIDE 5 MG TAB PO SCH (10:33)
[2019-10-31] MEDS: Rosuvastatin Calcium [Crestor] 40 MG PO SCH (10:34)
[2019-10-31] MEDS: PSYLLIUM HUSK 100% 6 GM PACKET PO SCH (10:34)
[2019-10-31] MEDS: AMMONIUM LACTATE 12% CREAM 140 GM TUBE TOPICAL SCH ×2 (10:34→19:48)
[2019-10-31 12:01] LABS: Glucose,Whole Blood 116 mg/dL (75-99)
--- NOTE | 2019-10-31 12:55 | P.CRDCN ---
History of Present Illness Consult date: 10/31/19 Chief complaint: Shortness of breath History of present illness: This is a very pleasant 79-year-old gentleman who sees Dr. Epps in the of [facility] on regular basis with a past medical history significant for coronary artery disease and status post coronary artery bypass grafting, mild aortic stenosis, diabetes, hypertension, dyslipidemia, and cardiomyopathy with an EF of 45%, presented to the hospital with increasing shortness of breath associated with increasing the warty 70s edema. About 4 weeks ago, he was taking Aldactone and that was stopped because of hyperkalemia. Since then he has been experiencing increasing in the shortness of breath, he described exertional dyspnea associated with orthopnea and also increasing lower extremities edema. Beside that he gained about 30 pounds within the last 4-6 weeks. No symptoms of exertional chest pain or chest discomfort, dizziness, heart racing or syncope. The workup consistent was heart failure. The chest x-ray showed findings consistent with CHF. The BNP came in to be elevated at 18,000. The creatinine is elevated and he is known to have chronic kidney disease. Subsequently the patient was admitted to the hospital for further cardiac evaluation and he was started on Lasix IV. He stated that he is feeling already better. On examination he does have diminished breathing sounds bilaterally with bilateral lower extremities pitting edema. Last echocardiogram was from 2019 and that revealed impaired LV function was EF between 40-45% with mild aortic stenosis. He definitely has significant systolic murmur on examination and I'm going to repeat the echocardiogram to assess for any progression in the severity of aortic stenosis. The EKG showed sinus rhythm with first-degree AV block. Past Medical History Past Medical History: Atrial Flutter, Coronary Artery Disease (CAD), Heart Failure, Diabetes Mellitus, GERD/Reflux, Hyperlipidemia, Hypertension, Myocardial Infarction (HI), Osteoarthritis (OA), Renal Disease, Vascular Disorder Additional Past Medical History / Comment(s): Pt recently admitted to [facility] on 01/16/19 with bilateral lower extremity cellulitis with multiple ulcers-positive for klebsiella/pseudomonas, uncontrolled diabetes, pleural effusion with R thoracentesis, exacerbation CHF. Other Hx: Paroxysmal Aflutter, PAD, chronic bilateral venous stasis dermatitis, lower extremety infection/blisters, chronic CHF, IDDM type II, BPH, post CABG urinary retention, CRD stage III, Last Myocardial Infarction Date:: 12/08/18 History of Any Multi-Drug Resistant Organisms: None Reported Past Surgical History: Appendectomy, Coronary Bypass/CABG, Heart Catheterization With Stent Additional Past Surgical History / Comment(s): 12/08/18 CABG 4 vessels, PCI with stents 2004, cardioversion for Aflutter, bilateral cataract removals/lens implants. Past Anesthesia/Blood Transfusion Reactions: No Reported Reaction Additional Past Anesthesia/Blood Transfusion Reaction / Comment(s): Pt received blood with CABG Date of Last Stent Placement:: 2004 Past Psychological History: No Psychological Hx Reported Additional Psychological History / Comment(s): Single. No children. No pets. Remote tobacco use. No international travel since his experience. Worked on [email or web address] Smoking Status: Former smoker Past Alcohol Use History: None Reported Additional Past Alcohol Use History / Comment(s): Pt smoked for one month in 1963. He quit drinking 1973 Past Drug Use History: None Reported - Past Family History Mother Family Medical History: Myocardial Infarction (HI) Additional Family Medical History / Comment(s): Mother had a HI at the age of 64 Father Additional Family Medical History / Comment(s): Father had mental health issues after a "bad" truck accident. Medications and Allergies Home Medications Medication Instructions Recorded Confirmed Type Ascorbic Acid [Vitamin C] 500 mg PO BID-W/MEALS tab 12/20/18 10/30/19 Rx Melatonin 3 mg PO HS 01/13/19 10/30/19 History Rosuvastatin Calcium [Crestor] 40 mg PO DAILY 01/13/19 10/30/19 History Tamsulosin [Flomax] 0.4 mg PO BID 01/13/19 10/30/19 History Aspirin EC [Ecotrin Low Dose] 81 mg PO HS 01/16/19 10/30/19 History Acetaminophen Tab [Tylenol] 500 mg PO Q6HR PRN tab 01/25/19 10/30/19 Rx Apixaban [Eliquis] 5 mg PO BID tab 01/25/19 10/30/19 Rx Metoprolol Tartrate [Lopressor] 25 mg PO BID 02/08/19 10/30/19 History Ferrous Sulfate [Iron (65 MG 325 mg PO BID 07/27/19 10/30/19 History Elemental)] Insulin Glargine [Lantus] 20 unit SQ AC-BRKFST 07/27/19 10/30/19 History Albuterol Inhaler [Ventolin Hfa 2 puff INHALATION RT-Q4H PRN 10/30/19 10/30/19 History Inhaler] Ammonium Lactate Cream [Lac-Hydrin 1 applic TOPICAL BID 10/30/19 10/30/19 History 12% Cream] Bacitracin Oint 1 applic TOPICAL BID PRN 10/30/19 10/30/19 History Finasteride [Proscar] 5 mg PO DAILY 10/30/19 10/30/19 History Furosemide [Lasix] 40 mg PO BID@0800,1500 10/30/19 10/30/19 History Insulin Aspart [NovoLOG] See Protocol SQ ACHS 10/30/19 10/30/19 History Ipratropium-Albuterol Nebulize 3 ml INHALATION RT-Q4H PRN 10/30/19 10/30/19 History [Duoneb 0.5 mg-3 mg/3 ml Soln] Metolazone [Zaroxolyn] 2.5 mg PO Q48H 10/30/19 10/30/19 History Psyllium Husk 100% [Metamucil 6 gm PO DAILY 10/30/19 10/30/19 History Packet] Sodium Bicarbonate Tab 650 mg PO BID 10/30/19 10/30/19 History Spironolactone 37.5 mg PO DAILY 10/30/19 10/30/19 History hydrALAZINE HCL 25 mg PO BID 10/30/19 10/30/19 History Allergies Allergy/AdvReac Type Severity Reaction Status Date / Time atorvastatin [From Lipitor] AdvReac MUSCLE/JOINT Verified 10/30/19 19:33 PAIN Physical Exam Vitals: Vital Signs Temp Pulse Pulse Resp BP BP Pulse Ox 10/31/19 12:00 62 16 134/70 98 10/31/19 08:44 96.9 F L 67 18 146/69 100 10/31/19 03:42 66 16 10/31/19 03:41 98.0 F 66 16 132/74 100 10/30/19 23:32 67 16 10/30/19 23:30 97.7 F 67 16 130/71 99 10/30/19 21:09 97.9 F 74 18 149/80 98 10/30/19 20:39 98.0 F 88 18 141/86 100 10/30/19 19:46 18 10/30/19 19:04 85 16 165/90 100 10/30/19 16:46 98.0 F 87 26 H 160/77 95 Intake and Output 10/30/19 10/31/19 10/31/19 22:59 06:59 14:59 Intake Total 240 Output Total 800 Balance -800 240 Intake: Oral 240 Output: Urine 800 Other: Voiding Method Toilet Weight 92.9 kg 91.4 kg 91.4 kg - Constitutional General appearance: no acute distress - Respiratory Respiratory: bilateral: diminished - Cardiovascular Rhythm: regular Heart sounds: normal: S1, S2 Abnormal Heart Sounds: systolic murmur Results 10/30/19 17:31 10/31/19 06:08 Cardiac Enzymes 10/30/19 10/30/19 Range/Units 17:31 17:31 AST 53 (17-59) U/L Troponin I 0.046 H* (0.000-0.034) ng/mL Coagulation 10/30/19 Range/Units 17:31 PT 11.0 (9.0-12.0) sec APTT 25.9 (22.0-30.0) sec CBC 10/30/19 Range/Units 17:31 WBC 8.9 (3.8-10.6) k/uL RBC 4.37 (4.30-5.90) m/uL Hgb 12.2 L (13.0-17.5) gm/dL Hct 39.2 (39.0-53.0) % Plt Count 188 (150-450) k/uL Comprehensive Metabolic Panel 10/30/19 10/31/19 Range/Units 17:31 06:08 Sodium 140 139 (137-145) mmol/L Potassium 4.9 4.8 (3.5-5.1) mmol/L Chloride 108 H 111 H (98-107) mmol/L Carbon Dioxide 21 L 20 L (22-30) mmol/L BUN 65 H 63 H (9-20) mg/dL Creatinine 2.42 H 2.37 H (0.66-1.25) mg/dL Glucose 111 H 39 L* (74-99) mg/dL Calcium 8.5 8.1 L (8.4-10.2) mg/dL AST 53 (17-59) U/L ALT 45 (4-49) U/L Alkaline Phosphatase 323 H (38-126) U/L Total Protein 6.2 L (6.3-8.2) g/dL Albumin 3.5 (3.5-5.0) g/dL Current Medications Generic Name Dose Route Start Last Admin Trade Name Freq PRN Reason Stop Dose Admin Acetaminophen 500 mg 10/30/19 21:35 Tylenol Tab PO Q6HR PRN Fever and/ or Pain Albuterol Sulfate 2.5 mg 10/30/19 21:35 Ventolin Nebulized INHALATION RT-Q4H PRN Shortness Of Breath Albuterol/Ipratropium 3 ml 10/30/19 21:35 Duoneb 0.5 Mg-3 Mg/3 Ml Soln INHALATION RT-Q4H PRN Shortness Of Breath Apixaban 5 mg 10/30/19 21:45 10/31/19 10:33 Eliquis PO 5 mg BID PEARL Administration Ascorbic Acid 500 mg 10/31/19 07:30 10/31/19 06:59 Vitamin C PO 500 mg BID-W/MEALS PEARL Administration Aspirin 81 mg 10/30/19 21:45 10/30/19 21:46 Aspirin PO 81 mg HS PEARL Administration Bacitracin 1 applic 10/30/19 21:35 Bacitracin Oint TOPICAL BID PRN INFECTION Ferrous Sulfate 325 mg 10/30/19 21:45 10/31/19 10:33 Feosol PO 325 mg BID PEARL Administration Finasteride 5 mg 10/31/19 09:00 10/31/19 10:33 Proscar PO 5 mg DAILY PEARL Administration Furosemide 40 mg 10/30/19 21:45 10/31/19 10:33 Lasix IV 40 mg Q12HR PEARL Administration Hydralazine HCl 25 mg 10/30/19 21:45 10/31/19 10:33 Apresoline PO 25 mg BID PEARL Administration Insulin Aspart 0 unit 10/31/19 07:30 10/31/19 12:10 Novolog SQ Not Given ACHS [facility] Protocol Insulin Detemir 20 unit 10/31/19 07:00 10/31/19 07:18 Levemir SQ Not Given DAILY@0700 PEARL Lactic Acid 1 applic 10/30/19 21:45 10/31/19 10:34 Ammonium Lactate TOPICAL 1 applic BID PEARL Administration Melatonin 3 mg 10/30/19 21:45 10/30/19 21:46 Melatonin PO 3 mg HS PEARL Administration Metolazone 2.5 mg 11/01/19 09:00 Zaroxolyn PO Q48H [facility] Metoprolol Tartrate 25 mg 10/30/19 21:45 10/31/19 10:33 Lopressor PO 25 mg BID PEARL Administration Nitroglycerin 0.4 mg 10/30/19 18:33 Nitrostat SUBLINGUAL Q10M PRN Chest Pain Rosuvastatin Calcium 40 mg 10/31/19 09:00 10/31/19 10:34 [Crestor] 40 Mg PO Not Given DAILY [facility] Psyllium Hydrophilic Mucilloid 6 gm 10/31/19 09:00 10/31/19 10:34 Metamucil PO Not Given DAILY [facility] Sodium Bicarbonate 650 mg 10/30/19 21:45 10/31/19 10:33 Sodium Bicarbonate Tab PO 650 mg BID PEARL Administration Spironolactone 37.5 mg 10/31/19 09:00 10/31/19 10:33 Aldactone PO 37.5 mg DAILY PEARL Administration Tamsulosin HCl 0.4 mg 10/30/19 21:45 10/31/19 10:33 Flomax PO 0.4 mg BID PEARL Administration Intake and Output 10/30/19 10/31/19 10/31/19 22:59 06:59 14:59 Intake Total 240 Output Total 800 Balance -800 240 Intake: Oral 240 Output: Urine 800 Other: Voiding Method Toilet Weight 92.9 kg 91.4 kg 91.4 kg Patient Weight 11/01/19 06:59 Weight 91.4 kg 10/30/19 17:31 10/31/19 06:08 Assessment and Plan Assessment: Assessment #1 congestive heart failure exacerbation secondary to systolic dysfunction, acute on chronic #2 known cardiomyopathy was EF between 40-45% #3 aortic stenosis #4 chronic kidney disease #5 coronary artery disease with prior revascularization Plan #1 continue the current medical regimen including the current dose of Lasix IV #2 monitor the kidney function and electrolytes #3 obtaining an echocardiogram was Doppler to assess the EF as well as the intracardiac valves #4 follow-up with the patient Thank you for allowing us participate in his care
[2019-10-31 14:29] LABS: Hemoglobin A1C 7.2 % (4.0-6.0)
[2019-10-31 16:59] LABS: Glucose,Whole Blood 158 mg/dL (75-99)
[2019-10-31] MEDS: ASPIRIN 81 MG PO SCH (19:48)
[2019-10-31] MEDS: MELATONIN 3 MG TABLET PO SCH (19:49)
[2019-10-31 20:10] LABS: Glucose,Whole Blood 199 mg/dL (75-99)
[2019-10-31] MEDS ORDERED: INSULIN DETEMIR (LEVEMIR) 100 UNIT/ML SYR SQ SCH (21:00)
[2019-11-01] MEDS: INSULIN ASPART (NovoLOG) 100 UNIT/ML VIAL SQ SCH ×4 (06:12→21:43)
[2019-11-01 06:13] LABS: Glucose,Whole Blood 87 mg/dL (75-99)
[2019-11-01 06:45] LABS: HGB 11.8 gm/dL (13.0-17.5); Hypochromasia Slight; MCHC 30.2 g/dL (31.0-37.0); MCV 92.6 fL (80.0-100.0); Mean Platelet Volume 7.2; Platelet Count 182 k/uL (150-450); RBC 4.21 m/uL (4.30-5.90); RDW 15.6 % (11.5-15.5); WBC 7.9 k/uL (3.8-10.6)
[2019-11-01 06:53] LABS: Calcium 8.4 mg/dL (8.4-10.2); Potassium 5.4 mmol/L (3.5-5.1)
[2019-11-01] MEDS: INSULIN DETEMIR (LEVEMIR) 100 UNIT/ML SYR SQ SCH (07:02)
[2019-11-01] MEDS: ASCORBIC ACID 500 MG TAB PO SCH ×2 (07:02→17:17)
--- NOTE | 2019-11-01 08:01 | ECHOF ---
Referral Reason:CHF MEASUREMENTS -------- HEIGHT: 167.6 cm WEIGHT: 91.2 kg BP: 134/70 RVIDd: 4.7 cm (< 3.3) IVSd: 1.7 cm (0.6 - 1.1) LVIDd: 4.1 cm (3.9 - 5.3) LVPWd: 1.6 cm (0.6 - 1.1) IVSs: 2.0 cm LVIDs: 3.4 cm LVPWs: 1.7 cm LAESV Index (A-L): 36.67 ml/m Ao Diam: 3.0 cm (2.0 - 3.7) AV Cusp: 1.3 cm (1.5 - 2.6) MV EXCURSION: 15.622 mm (> 18.000) MV EF SLOPE: 85 mm/s (70 - 150) EPSS: 0.9 cm MV E Nik: 1.41 m/s MV DecT: 164 ms MV A Nik: 0.56 m/s MV E/A Ratio: 2.51 AV maxP.83 mmHg AV meanP.79 mmHg RAP: 20.00 mmHg RVSP: 39.12 mmHg FINDINGS -------- Sinus rhythm. This was a technically adequate study. The left ventricular size is normal. There is moderate concentric left ventricular hypertrophy. O verall left ventricular systolic function is mildly impaired with, an EF between 45 - 50 %. Left ve ntricular fillimg pressure cannot be estimated due to severe mitral annular calcification. Septal w all motion is delayed and consistent with prior cardiac surgery. VERY MILDLY REDUCED LV FUNCTION The right ventricle is severely enlarged. LA is moderately dilated 34-39 ml/m2 The right atrium is moderately enlarged. Interatrial and interventricular septum intact. There is no evidence of aortic regurgitation. There is mild aortic stenosis present. Peak/mean gr adient across the Aortic Valve is 22.83mmHg / 12.79mmHg. Severe mitral annular calcification present. Moderate mitral regurgitation is present. Mild tricuspid regurgitation present. There is mild pulmonary hypertension. The right ventricular systolic pressure, as measured by Doppler, is 39.12mmHg. There is no pulmonic regurgitation present. The aortic root size is normal. The inferior vena cava is dilated with poor inspiratory collapse which is consistent with estimated r ight atrial pressure of 20 mmHg. The pericardium appears to be thickened. CONCLUSIONS -------- 1. Sinus rhythm. 2. This was a technically adequate study. 3. The left ventricular size is normal. 4. There is moderate concentric left ventricular hypertrophy. 5. Overall left ventricular systolic function is mildly impaired with, an EF between 45 - 50 %. 6. Left ventricular fillimg pressure cannot be estimated due to severe mitral annular calcification. 7. Septal wall motion is delayed and consistent with prior cardiac surgery. 8. The right ventricle is severely enlarged. 9. LA is moderately dilated 34-39 ml/m2 10. The right atrium is moderately enlarged. 11. Interatrial and interventricular septum intact. 12. There is no evidence of aortic regurgitation. 13. There is mild aortic stenosis present. 14. Peak/mean gradient across the Aortic Valve is 22.83mmHg / 12.79mmHg. 15. Severe mitral annular calcification present. 16. Moderate mitral regurgitation is present. 17. Mild tricuspid regurgitation present. 18. There is mild pulmonary hypertension. 19. The right ventricular systolic pressure, as measured by Doppler, is 39.12mmHg. 20. There is no pulmonic regurgitation present. 21. The aortic root size is normal. 22. The inferior vena cava is dilated with poor inspiratory collapse which is consistent with estimat ed right atrial pressure of 20 mmHg. 23. The pericardium appears to be thickened. [employer]LE[employer] FIELD TECHNICIAN: Carol Burns RDCS
[2019-11-01] MEDS: hydrALAZINE HCL 25 MG TAB PO SCH ×2 (09:26→21:42)
[2019-11-01] MEDS: TAMSULOSIN 0.4 MG CAP.ER.24H PO SCH ×2 (09:26→21:42)
[2019-11-01] MEDS: SODIUM BICARBONATE TAB 650 MG TAB PO SCH ×2 (09:26→21:42)
[2019-11-01] MEDS: APIXABAN 5 MG TAB PO SCH ×2 (09:26→21:42)
[2019-11-01] MEDS: FINASTERIDE 5 MG TAB PO SCH (09:26)
[2019-11-01] MEDS: METOPROLOL TARTRATE 25 MG TAB PO SCH ×2 (09:27→21:43)
[2019-11-01] MEDS: FUROSEMIDE 10 MG/ML 4 ML VIAL IV SCH ×2 (09:27→21:42)
[2019-11-01] MEDS: FERROUS SULFATE 325 MG TAB PO SCH ×2 (09:27→21:42)
[2019-11-01] MEDS: SPIRONOLACTONE 25 MG TAB PO SCH (09:27)
[2019-11-01] MEDS: AMMONIUM LACTATE 12% CREAM 140 GM TUBE TOPICAL SCH ×2 (09:27→21:43)
[2019-11-01] MEDS: PSYLLIUM HUSK 100% 6 GM PACKET PO SCH (09:27)
[2019-11-01] MEDS: METOLAZONE 2.5 MG TAB PO SCH (09:27)
[2019-11-01] MEDS: Rosuvastatin Calcium [Crestor] 40 MG PO SCH (09:27)
[2019-11-01] MEDS ORDERED: SODIUM POLYSTYRENE SULFONATE 15 GM/60 ML BOTTLE PO STA (09:36)
--- NOTE | 2019-11-01 10:16 | P.PN ---
Subjective Patient with the systolic dysfunction as well as diastolic dysfunction Without any exacerbation is IV Lasix patient significant improved but still has crackles on lung exam will be can you done Lasix although patient's creatinine has worsened we'll also consult nephrology. Patient's potassium has went up a discontinue Aldactone and patient will be started on a dose of Kayexalate. Constitutional: Denied any fatigue denied any fever. Cardio vascular: denied any chest pain, palpitations Gastrointestinal denied any nausea vomiting Pulmonary: Shortness of breath improved Neurologic denied any new focal deficits All inpatient medications were reviewed and appropriate changes in these medications as dictated in the interval history and assessment and plan. Objective - Vital Signs Vital signs: Vital Signs Temp 98 F 11/01/19 08:20 Pulse 78 11/01/19 08:20 Resp 16 11/01/19 08:20 BP 140/67 11/01/19 08:20 Pulse Ox 98 11/01/19 08:20 Intake & Output 10/31/19 11/01/19 11/01/19 18:59 06:59 18:59 Intake Total 780 310 240 Output Total 600 550 450 Balance 180 -240 -210 Weight 91.4 kg 90.7 kg Intake: IV 10 Invasive Line 1 10 Oral 780 300 240 Output: Urine 600 550 450 Other: Voiding Method Toilet Toilet # Voids 1 1 - Exam PHYSICAL EXAMINATION: GENERAL: The patient is alert and oriented x3, not in any acute distress. Well developed, well nourished. HEENT: Pupils are round and equally reacting to light. EOMI. No scleral icterus. No conjunctival pallor. Normocephalic, atraumatic. No pharyngeal erythema. No thyromegaly. CARDIOVASCULAR: S1 and S2 present. No murmurs, rubs, or gallops. Does have elevated JVD PULMONARY: Good air entry to with bibasilar crackles ABDOMEN: Soft, nontender, nondistended, normoactive bowel sounds. No palpable organomegaly. MUSCULOSKELETAL: No joint swelling or deformity. EXTREMITIES: No cyanosis, clubbing, and bilateral pitting pedal edema. NEUROLOGICAL: Gross neurological examination did not reveal any focal deficits. SKIN: No rashes. - Labs CBC & Chem 7: 11/01/19 06:13 11/01/19 06:13 Labs: Abnormal Lab Results - Last 24 Hours (Table) 10/31/19 10/31/19 10/31/19 Range/Units 06:08 11:59 16:58 RBC (4.30-5.90) m/uL Hgb (13.0-17.5) gm/dL MCHC (31.0-37.0) g/dL RDW (11.5-15.5) % Potassium (3.5-5.1) mmol/L Chloride (98-107) mmol/L BUN (9-20) mg/dL Creatinine (0.66-1.25) mg/dL POC Glucose (mg/dL) 116 H 158 H (75-99) mg/dL Hemoglobin A1c 7.2 H (4.0-6.0) % 10/31/19 11/01/19 11/01/19 Range/Units 20:09 06:13 06:13 RBC 4.21 L (4.30-5.90) m/uL Hgb 11.8 L (13.0-17.5) gm/dL MCHC 30.2 L (31.0-37.0) g/dL RDW 15.6 H (11.5-15.5) % Potassium 5.4 H (3.5-5.1) mmol/L Chloride 108 H (98-107) mmol/L BUN 67 H (9-20) mg/dL Creatinine 2.63 H (0.66-1.25) mg/dL POC Glucose (mg/dL) 199 H (75-99) mg/dL Hemoglobin A1c (4.0-6.0) % Assessment and Plan Plan: -That his heart failure chronic systolic as well as diastolic dysfunction with acute exacerbation patient on 40 IV twice a day of Lasix patient is also on metolazone which will be continued. 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 Patient's creatinine is worsening secondary to diuresis will consult nephrology but patient will request Lasix at this time probably will discontinue metolazone if that's what the recommendations from nephrology -Type 2 diabetes mellitus with mildly low blood sugar because of which I'm holding off on all his diabetic medications except for sliding scale insulin -Hypertension -Bilateral venous stasis dermatosis -Gastroesophageal reflux disease -Coronary artery disease next and having professor disease -Atrial fibrillation presently rate controlled sinus rhythm probably proximal A. fib continue with anticoagulation.
[2019-11-01 11:45] LABS: Glucose,Whole Blood 212 mg/dL (75-99)
--- NOTE | 2019-11-01 15:44 | P.PN ---
Subjective Progress Note Date: 11/01/19 This is a very pleasant 79-year-old gentleman who sees Dr. Epps in the office on regular basis with a past medical history significant for coronary artery disease and status post coronary artery bypass grafting, mild aortic stenosis, diabetes, hypertension, dyslipidemia, and cardiomyopathy with an EF of 45%, presented to the hospital with increasing shortness of breath, he was seen in consultation yesterday by Dr. Jeter. Has been receiving treatment for congestive heart failure. His echocardiogram with Doppler study revealed an ejection fraction of 40-45%. He diuresed well on the IV Lasix, his weight is down today. White blood cell count 7.9, hemoglobin 11.8, platelet count 182. Sodium 141, potassium 5.4, BUN 67, creatinine 2.6. Objective - Vital Signs Vital signs: Vital Signs Temp 98 F 11/01/19 08:20 Pulse 60 11/01/19 11:15 Resp 16 11/01/19 11:15 BP 142/71 11/01/19 11:15 Pulse Ox 92 L 11/01/19 11:15 Intake & Output 10/31/19 11/01/19 11/01/19 18:59 06:59 18:59 Intake Total 780 310 480 Output Total 499 863 2220 Balance 180 -240 -1070 Weight 91.4 kg 90.7 kg Intake: IV 10 Invasive Line 1 10 Oral 780 300 480 Output: Urine 992 537 1431 Other: Voiding Method Toilet Toilet Toilet # Voids 1 1 # Bowel Movements 1 - Exam PHYSICAL EXAMINATION: GENERAL: 79-year-old gentleman in no acute distress at the time of my examination HEENT: Head is atraumatic, normocephalic. Pupils equal, round. Sclera anicteric. Conjunctiva are clear. Mucous membranes of the mouth are moist. Neck is supple. There is no elevated jugular venous pressure. No carotid] bruit is heard. HEART EXAMINATION: S1 S2 1 systolic murmur is heard CHEST EXAMINATION: Lungs reveal bibasilar crackles. ABDOMEN: Soft, nontender. Bowel sounds are heard. No organomegaly noted. EXTREMITIES: 2+ peripheral pulses with 3+ bilateral evidence of peripheral edema and no calf tenderness noted. NEUROLOGIC patient is awake, alert and oriented 3. . - Labs CBC & Chem 7: 11/01/19 06:13 11/01/19 06:13 Labs: Abnormal Lab Results - Last 24 Hours (Table) 10/31/19 10/31/19 11/01/19 Range/Units 16:58 20:09 06:13 RBC 4.21 L (4.30-5.90) m/uL Hgb 11.8 L (13.0-17.5) gm/dL MCHC 30.2 L (31.0-37.0) g/dL RDW 15.6 H (11.5-15.5) % Potassium (3.5-5.1) mmol/L Chloride (98-107) mmol/L BUN (9-20) mg/dL Creatinine (0.66-1.25) mg/dL POC Glucose (mg/dL) 158 H 199 H (75-99) mg/dL 11/01/19 11/01/19 Range/Units 06:13 11:40 RBC (4.30-5.90) m/uL Hgb (13.0-17.5) gm/dL MCHC (31.0-37.0) g/dL RDW (11.5-15.5) % Potassium 5.4 H (3.5-5.1) mmol/L Chloride 108 H (98-107) mmol/L BUN 67 H (9-20) mg/dL Creatinine 2.63 H (0.66-1.25) mg/dL POC Glucose (mg/dL) 212 H (75-99) mg/dL Assessment and Plan Plan: Assessment and plan #1 congestive heart failure exacerbation secondary to systolic dysfunction, acute on chronic #2 known ischemic cardiomyopathy was EF between 40-45% #3 aortic stenosis #4 chronic kidney disease #5 coronary artery disease with prior revascularization Plan Repeat echocardiogram with Doppler study revealed an ejection fraction of 45- 50%, moderate mitral regurgitation with mild aortic stenosis. We will continue with current dose of IV Lasix, continue to monitor the intake and output along with daily weights and daily lytes BUN and creatinine. DNP note has been reviewed, I agree with a documented findings and plan of care. Patient was seen and examined.
[2019-11-01 16:56] LABS: Glucose,Whole Blood 122 mg/dL (75-99)
[2019-11-01 21:09] LABS: Glucose,Whole Blood 145 mg/dL (75-99)
[2019-11-01] MEDS: ASPIRIN 81 MG PO SCH (21:42)
[2019-11-01] MEDS: MELATONIN 3 MG TABLET PO SCH (21:43)
[2019-11-02 06:56] LABS: Glucose,Whole Blood 47 mg/dL (75-99)
[2019-11-02 07:02] LABS: Glucose,Whole Blood 59 mg/dL (75-99)
[2019-11-02 07:35] LABS: Glucose,Whole Blood 146 mg/dL (75-99)
[2019-11-02] MEDS: INSULIN ASPART (NovoLOG) 100 UNIT/ML VIAL SQ SCH ×4 (07:52→21:05)
[2019-11-02] MEDS: SODIUM BICARBONATE TAB 650 MG TAB PO SCH ×2 (08:09→21:05)
[2019-11-02] MEDS: TAMSULOSIN 0.4 MG CAP.ER.24H PO SCH ×2 (08:09→21:05)
[2019-11-02] MEDS: Rosuvastatin Calcium [Crestor] 40 MG PO SCH (08:10)
[2019-11-02] MEDS: hydrALAZINE HCL 25 MG TAB PO SCH ×2 (08:11→21:05)
[2019-11-02] MEDS: METOPROLOL TARTRATE 25 MG TAB PO SCH ×2 (08:11→21:05)
[2019-11-02] MEDS: FINASTERIDE 5 MG TAB PO SCH (08:11)
[2019-11-02] MEDS: FUROSEMIDE 10 MG/ML 4 ML VIAL IV SCH ×2 (08:11→21:03)
[2019-11-02] MEDS: PSYLLIUM HUSK 100% 6 GM PACKET PO SCH (08:11)
[2019-11-02] MEDS: FERROUS SULFATE 325 MG TAB PO SCH ×2 (08:11→21:04)
[2019-11-02] MEDS: ASCORBIC ACID 500 MG TAB PO SCH ×2 (08:12→16:52)
[2019-11-02] MEDS: APIXABAN 5 MG TAB PO SCH ×2 (08:12→21:04)
[2019-11-02] MEDS: INSULIN DETEMIR (LEVEMIR) 100 UNIT/ML SYR SQ SCH ×2 (08:14→10:39)
[2019-11-02] MEDS: AMMONIUM LACTATE 12% CREAM 140 GM TUBE TOPICAL SCH ×2 (08:21→21:15)
[2019-11-02 10:51] LABS: Glucose,Whole Blood 172 mg/dL (75-99)
[2019-11-02 11:37] LABS: Glucose,Whole Blood 155 mg/dL (75-99)
--- NOTE | 2019-11-02 12:16 | P.PN ---
Subjective Progress Note Date: 11/02/19 Principal diagnosis: Heart failure secondary to systolic dysfunction This is a very pleasant 79-year-old gentleman with history of coronary artery disease, ischemic cardiomyopathy, as well as aortic stenosis, and chronic kidney disease was admitted to the hospital with symptoms of heart failure. He was seen today, 11/03/2019. The patient still short of breath. He still have bilateral lower extremities edema and also still have crackles on examination. Don't have any BUN and creatinine today and I just ordered them. The repeated echocardiogram revealed an EF between 45-50% with evidence of moderate aortic regurgitation and mild aortic stenosis. I would recommend con tinuing the IV Lasix for additional 24 hours. Objective - Vital Signs Vital signs: Vital Signs Temp 96.4 F L 11/02/19 12:00 Pulse 69 11/02/19 12:00 Resp 18 11/02/19 12:00 BP 137/72 11/02/19 12:00 Pulse Ox 99 11/02/19 12:00 Intake & Output 11/01/19 11/02/19 11/02/19 18:59 06:59 18:59 Intake Total 480 360 Output Total 1550 1225 Balance -1070 -1225 360 Weight 89 kg Intake: Oral 480 360 Output: Urine 1550 1225 Other: Voiding Method Toilet Toilet Toilet # Bowel Movements 1 - Constitutional General appearance: Present: no acute distress - Respiratory Respiratory: bilateral: rales - Cardiovascular Rhythm: regular Heart sounds: normal: S1, S2 Abnormal Heart Sounds: Present: systolic murmur - Labs CBC & Chem 7: 11/01/19 06:13 11/01/19 06:13 Labs: Abnormal Lab Results - Last 24 Hours (Table) 11/01/19 11/01/19 11/02/19 Range/Units 16:31 21:07 06:55 POC Glucose (mg/dL) 122 H 145 H 47 L (75-99) mg/dL 11/02/19 11/02/19 11/02/19 Range/Units 07:01 07:14 10:40 POC Glucose (mg/dL) 59 L 146 H 172 H (75-99) mg/dL 11/02/19 Range/Units 11:35 POC Glucose (mg/dL) 155 H (75-99) mg/dL Assessment and Plan Assessment: Assessment #1 congestive heart failure exacerbation secondary to systolic dysfunction, acute on chronic #2 known cardiomyopathy was EF between 40-45% #3 aortic stenosis #4 chronic kidney disease #5 coronary artery disease with prior revascularization Plan #1 continue the current medical regimen including the current dose of Lasix IV #2 monitor the kidney function and electrolytes #3 continue the IV Lasix for additional 24 hours #4 follow-up with the patient Thank you for allowing us participate in his care
--- NOTE | 2019-11-02 12:52 | P.PN ---
Subjective Progress Note Date: 11/02/19 Principal diagnosis: Patient with the systolic dysfunction as well as diastolic dysfunction Without any exacerbation is IV Lasix patient significant improved but still has crackles on lung exam will be can you done Lasix although patient's creatinine has worsened we'll also consult nephrology. Patient's potassium has went up a discontinue Aldactone and patient will be started on a dose of Kayexalate. Constitutional: Denied any fatigue denied any fever. Cardio vascular: denied any chest pain, palpitations Gastrointestinal denied any nausea vomiting Pulmonary: Shortness of breath improved Neurologic denied any new focal deficits All inpatient medications were reviewed and appropriate changes in these medications as dictated in the interval history and assessment and plan. 11/02/2019 Patient is seen and evaluated in follow-up today sitting up in the chair and states that his breathing has gotten much better although still becomes dyspneic on exertion. Patient is currently on IV Lasix for diuresis and will continue at this time. Patient does not normally wear oxygen at home and is currently maintained on 2 L of oxygen via nasal cannula. Will attempt to wean and will need a home O2 eval prior to discharge. Patient continues to have some bilateral lower extremity swelling and has been instructed to elevate lower extremities while at rest. Gianni wrap have been applied and have been helping. Awaiting repeat labs today. No reports of chest pain, worsening shortness of breath, or palpitations. Patient is afebrile. No reports her nausea or vomiting and patient is tolerating diet. Objective - Vital Signs Vital signs: Vital Signs Temp 96.4 F L 11/02/19 12:00 Pulse 69 11/02/19 12:00 Resp 18 11/02/19 12:00 BP 137/72 11/02/19 12:00 Pulse Ox 99 11/02/19 12:00 Intake & Output 11/01/19 11/02/19 11/02/19 18:59 06:59 18:59 Intake Total 480 360 Output Total 1550 1225 700 Balance -1070 -1225 -340 Weight 89 kg Intake: Oral 480 360 Output: Urine 1550 1225 700 Other: Voiding Method Toilet Toilet Toilet # Bowel Movements 1 1 - Exam GENERAL: The patient is alert and oriented x3, not in any acute distress. Well developed, well nourished. HEENT: Pupils are round and equally reacting to light. EOMI. No scleral icterus. No conjunctival pallor. Normocephalic, atraumatic. No pharyngeal erythema. No thyromegaly. CARDIOVASCULAR: S1 and S2 present. No murmurs, rubs, or gallops. Does have elevated JVD PULMONARY: Good air entry noted with mild bibasilar crackles present ABDOMEN: Soft, nontender, nondistended, normoactive bowel sounds. No palpable organomegaly. MUSCULOSKELETAL: No joint swelling or deformity. EXTREMITIES: No cyanosis, clubbing, and bilateral pitting pedal edema. Slight improvement of the bilateral lower extremity edema with Gianni wraps noted NEUROLOGICAL: Gross neurological examination did not reveal any focal deficits. SKIN: No rashes. - Labs CBC & Chem 7: 11/01/19 06:13 11/01/19 06:13 Labs: Abnormal Lab Results - Last 24 Hours (Table) 11/01/19 11/01/19 11/02/19 Range/Units 16:31 21:07 06:55 POC Glucose (mg/dL) 122 H 145 H 47 L (75-99) mg/dL 11/02/19 11/02/19 11/02/19 Range/Units 07:01 07:14 10:40 POC Glucose (mg/dL) 59 L 146 H 172 H (75-99) mg/dL 11/02/19 Range/Units 11:35 POC Glucose (mg/dL) 155 H (75-99) mg/dL Assessment and Plan Assessment: -Congestive heart failure chronic systolic as well as diastolic dysfunction with acute exacerbation patient on 40 IV twice a day of Lasix patient is also on metolazone which will be continued. -Hyperkalemia secondary to renal failure and Aldactone was discontinued. Repeat labs today are pending. 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 Patient's creatinine was worsening secondary to diuresis and nephrology was consulted and pending. Patient require s IV Lasix at this time for diuresis . probably will discontinue metolazone if that's what the recommendations from nephrology -Type 2 diabetes mellitus with mildly low blood sugar. will continue with sliding scale and monitor closely, continue to hold home diabetic medications -Hypertension -Bilateral venous stasis dermatosis -Gastroesophageal reflux disease -Coronary artery disease -Atrial fibrillation presently rate controlled sinus rhythm probably proximal A. fib continue with anticoagulation.
[2019-11-02 13:01] LABS: Basophils % (A) 1 %; Eosinophils # (A) 0.3 k/uL (0-0.7); Eosinophils % (A) 4 %; HCT 40.1 % (39.0-53.0); HGB 12.4 gm/dL (13.0-17.5); Hypochromasia Moderate; Lymphocytes # (A) 0.3 k/uL (1.0-4.8); Lymphocytes % (A) 4 %; MCH 28.7 pg (25.0-35.0); MCHC 30.8 g/dL (31.0-37.0); MCV 92.9 fL (80.0-100.0); Mean Platelet Volume 7.3; Monocytes # (A) 0.5 k/uL (0-1.0); Monocytes % (A) 6 %; Neutrophils % (A) 83 %; Platelet Count 184 k/uL (150-450); RBC 4.32 m/uL (4.30-5.90); RDW 15.4 % (11.5-15.5); WBC 8.5 k/uL (3.8-10.6)
[2019-11-02 13:09] LABS: Calcium 8.5 mg/dL (8.4-10.2); Potassium 4.7 mmol/L (3.5-5.1)
[2019-11-02 16:32] LABS: Glucose,Whole Blood 183 mg/dL (75-99)
[2019-11-02 20:08] LABS: Glucose,Whole Blood 221 mg/dL (75-99)
[2019-11-02] MEDS: ASPIRIN 81 MG PO SCH (21:04)
[2019-11-02] MEDS: MELATONIN 3 MG TABLET PO SCH (21:05)
--- NOTE | 2019-11-02 23:20 | CONS ---
CONSULTATION REASON FOR CONSULT: Renal failure. HISTORY OF PRESENT ILLNESS: Patient is a 79-year-old male who was admitted to the hospital on 10/31/2019 with complaints of shortness of breath and increased lower extremity edema. Patient has a history of chronic diastolic dysfunction and cardiomyopathy with EF of 45% to 50% with systolic dysfunction as well. He states that the Aldactone was held recently as outpatient since potassium was elevated, and patient feels that his volume status worsened after that. He denies any chest pains, cough, nausea, vomiting or abdominal pain. His shortness of breath has improved since admission. Patient is currently maintained on IV Lasix 40 mg q.12 hours. His serum creatinine was 2.46 today, which is down from 2.6 yesterday. Baseline creatinine appears to be around 1.7 mg/dL. Patient does have underlying CKD stage IIIB to IV, secondary to diabetic nephropathy and nephrosclerosis. PAST MEDICAL HISTORY: Type 2 diabetes, CKD, hypertension, coronary artery disease, history of CHF, cardiomyopathy, EF 45% to 50%, osteoarthritis, history of UTIs, bilateral venostasis, urine retention. PAST SURGICAL HISTORY: Appendectomy, coronary artery bypass surgery, cardiac catheterization, coronary stent placement, cataract surgery, cardioversion for atrial flutter. SOCIAL HISTORY: Negative for smoking, drug abuse or alcohol abuse. Patient is a former smoker. MEDICATIONS: Medications prior to admission included vitamin C, melatonin, Crestor, aspirin, Tylenol, Eliquis, Lopressor, iron, insulin, Proscar, Lasix, Zaroxolyn, sodium bicarb, spironolactone, hydralazine. ALLERGIES: ALLERGIES include LIPITOR. PHYSICAL EXAMINATION: On examination, patient is comfortable, awake, not in any acute distress. Alert and oriented x3. Blood pressure this afternoon was 137/72, heart rate of 69 per minute. Patient is afebrile. EXAMINATION OF THE HEART: S1 and S2. EXAMINATION OF LUNGS: Bilateral breath sounds are heard. ABDOMEN: Soft, non-tender. Examination of lower extremities shows edema 2 to 3+ bilaterally. [employer] COORDINATOR exam is grossly intact. LABS: Sodium 138, potassium 4.7, chloride 103. CO2 is 25, BUN 71, creatinine 2.46, hemoglobin 12.4 g/dL. ASSESSMENT: 1. Acute kidney injury, cardiorenal, currently slightly improved. 2. Severe volume overload, maintained on IV Lasix, which I will continue for now. We can perhaps increase the Lasix tomorrow if renal function remains stable. 3. Cardiomyopathy, ejection fraction 45% to 50%. 4. Congestive heart failure, acute on top of chronic, mainly systolic. 5. Chronic kidney disease, stage IV to IIIB, secondary to diabetic nephropathy and nephrosclerosis. Baseline creatinine about 1.7 mg/dL. 6. Coronary artery disease. 7. Aortic stenosis. PLAN: Continue IV Lasix. Repeat labs in a.m. Increase Lasix in a.m. if renal function is stable. MMODL / IJN: [id number] /
[2019-11-03 06:17] LABS: Glucose,Whole Blood 58 mg/dL (75-99)
[2019-11-03] MEDS: ASCORBIC ACID 500 MG TAB PO SCH ×2 (06:20→18:05)
[2019-11-03 06:26] LABS: Glucose,Whole Blood 68 mg/dL (75-99)
[2019-11-03 06:36] LABS: Glucose,Whole Blood 83 mg/dL (75-99)
[2019-11-03 06:41] LABS: Basophils % (A) 1 %; Eosinophils # (A) 0.4 k/uL (0-0.7); Eosinophils % (A) 6 %; HCT 38.4 % (39.0-53.0); HGB 11.7 gm/dL (13.0-17.5); Lymphocytes # (A) 0.4 k/uL (1.0-4.8); Lymphocytes % (A) 6 %; MCH 27.6 pg (25.0-35.0); MCHC 30.5 g/dL (31.0-37.0); MCV 90.3 fL (80.0-100.0); Mean Platelet Volume 7.1; Monocytes # (A) 0.6 k/uL (0-1.0); Monocytes % (A) 9 %; Neutrophils # (A) 5.3 k/uL (1.3-7.7); Neutrophils % (A) 76 %; Platelet Count 164 k/uL (150-450); RBC 4.25 m/uL (4.30-5.90); RDW 15.5 % (11.5-15.5)
[2019-11-03] MEDS: INSULIN ASPART (NovoLOG) 100 UNIT/ML VIAL SQ SCH ×4 (06:48→20:45)
[2019-11-03 06:54] LABS: Calcium 8.2 mg/dL (8.4-10.2); Potassium 4.2 mmol/L (3.5-5.1)
[2019-11-03] MEDS: INSULIN DETEMIR (LEVEMIR) 100 UNIT/ML SYR SQ SCH (07:35)
[2019-11-03] MEDS: Rosuvastatin Calcium [Crestor] 40 MG PO SCH (07:36)
[2019-11-03] MEDS: METOPROLOL TARTRATE 25 MG TAB PO SCH ×2 (07:45→20:46)
[2019-11-03] MEDS: hydrALAZINE HCL 25 MG TAB PO SCH ×2 (07:45→20:45)
[2019-11-03] MEDS: METOLAZONE 2.5 MG TAB PO SCH (07:45)
[2019-11-03] MEDS: APIXABAN 5 MG TAB PO SCH ×2 (07:45→20:44)
[2019-11-03] MEDS: FUROSEMIDE 10 MG/ML 4 ML VIAL IV SCH ×2 (07:45→20:45)
[2019-11-03] MEDS: FERROUS SULFATE 325 MG TAB PO SCH ×2 (07:45→20:45)
[2019-11-03] MEDS: AMMONIUM LACTATE 12% CREAM 140 GM TUBE TOPICAL SCH ×2 (07:45→20:44)
[2019-11-03] MEDS: FINASTERIDE 5 MG TAB PO SCH (07:45)
[2019-11-03] MEDS: PSYLLIUM HUSK 100% 6 GM PACKET PO SCH (07:46)
[2019-11-03] MEDS: SODIUM BICARBONATE TAB 650 MG TAB PO SCH ×2 (07:46→20:46)
[2019-11-03] MEDS: TAMSULOSIN 0.4 MG CAP.ER.24H PO SCH ×2 (07:46→20:46)
--- NOTE | 2019-11-03 08:56 | P.PN ---
Subjective Progress Note Date: 11/03/19 Principal diagnosis: Heart failure secondary to systolic dysfunction This is a very pleasant 79-year-old gentleman with history of coronary artery disease, ischemic cardiomyopathy, as well as aortic stenosis, and chronic kidney disease was admitted to the hospital with symptoms of heart failure. He was seen today, 11/03/2019. The patient still short of breath. He still have bilateral lower extremities edema and also still have crackles on examination. Don't have any BUN and creatinine today and I just ordered them. The repeated echocardiogram revealed an EF between 45-50% with evidence of moderate aortic regurgitation and mild aortic stenosis. I would recommend con tinuing the IV Lasix for additional 24 hours. Objective - Vital Signs Vital signs: Vital Signs Temp 97.7 F 11/03/19 07:40 Pulse 70 11/03/19 07:40 Resp 16 11/03/19 07:40 BP 132/62 11/03/19 07:40 Pulse Ox 93 L 11/03/19 07:40 Intake & Output 11/02/19 11/03/19 11/03/19 18:59 06:59 18:59 Intake Total 900 Output Total 700 Balance 200 Weight 87.4 kg Intake: Oral 900 Output: Urine 700 Other: Voiding Method Toilet Toilet Toilet # Voids 1 # Bowel Movements 1 - Constitutional General appearance: Present: no acute distress - Respiratory Respiratory: bilateral: rales - Cardiovascular Heart sounds: normal: S1, S2 - Labs CBC & Chem 7: 11/03/19 06:07 11/03/19 06:07 Labs: Abnormal Lab Results - Last 24 Hours (Table) 11/02/19 11/02/19 11/02/19 Range/Units 10:40 11:35 12:29 RBC (4.30-5.90) m/uL Hgb 12.4 L (13.0-17.5) gm/dL Hct (39.0-53.0) % MCHC 30.8 L (31.0-37.0) g/dL Lymphocytes # 0.3 L (1.0-4.8) k/uL BUN (9-20) mg/dL Creatinine (0.66-1.25) mg/dL Glucose (74-99) mg/dL POC Glucose (mg/dL) 172 H 155 H (75-99) mg/dL Calcium (8.4-10.2) mg/dL 11/02/19 11/02/19 11/02/19 Range/Units 12:29 16:29 20:07 RBC (4.30-5.90) m/uL Hgb (13.0-17.5) gm/dL Hct (39.0-53.0) % MCHC (31.0-37.0) g/dL Lymphocytes # (1.0-4.8) k/uL BUN 71 H (9-20) mg/dL Creatinine 2.46 H (0.66-1.25) mg/dL Glucose 158 H (74-99) mg/dL POC Glucose (mg/dL) 183 H 221 H (75-99) mg/dL Calcium (8.4-10.2) mg/dL 11/03/19 11/03/19 11/03/19 Range/Units 06:07 06:07 06:12 RBC 4.25 L (4.30-5.90) m/uL Hgb 11.7 L (13.0-17.5) gm/dL Hct 38.4 L (39.0-53.0) % MCHC 30.5 L (31.0-37.0) g/dL Lymphocytes # 0.4 L (1.0-4.8) k/uL BUN 71 H (9-20) mg/dL Creatinine 2.38 H (0.66-1.25) mg/dL Glucose 38 L* (74-99) mg/dL POC Glucose (mg/dL) 58 L (75-99) mg/dL Calcium 8.2 L (8.4-10.2) mg/dL 11/03/19 Range/Units 06:24 RBC (4.30-5.90) m/uL Hgb (13.0-17.5) gm/dL Hct (39.0-53.0) % MCHC (31.0-37.0) g/dL Lymphocytes # (1.0-4.8) k/uL BUN (9-20) mg/dL Creatinine (0.66-1.25) mg/dL Glucose (74-99) mg/dL POC Glucose (mg/dL) 68 L (75-99) mg/dL Calcium (8.4-10.2) mg/dL Assessment and Plan Assessment: Assessment #1 congestive heart failure exacerbation secondary to systolic dysfunction, acute on chronic #2 known cardiomyopathy was EF between 40-45% #3 aortic stenosis #4 chronic kidney disease #5 coronary artery disease with prior revascularization Plan #1 continue the current medical regimen including the current dose of Lasix IV #2 monitor the kidney function and electrolytes #3 continue the IV Lasix for additional 24 hours #4 follow-up with the patient Thank you for allowing us participate in his care
[2019-11-03 12:07] LABS: Glucose,Whole Blood 168 mg/dL (75-99)
--- NOTE | 2019-11-03 14:31 | P.PN ---
Subjective Progress Note Date: 11/03/19 Principal diagnosis: Patient with the systolic dysfunction as well as diastolic dysfunction Without any exacerbation is IV Lasix patient significant improved but still has crackles on lung exam will be can you done Lasix although patient's creatinine has worsened we'll also consult nephrology. Patient's potassium has went up a discontinue Aldactone and patient will be started on a dose of Kayexalate. Constitutional: Denied any fatigue denied any fever. Cardio vascular: denied any chest pain, palpitations Gastrointestinal denied any nausea vomiting Pulmonary: Shortness of breath improved Neurologic denied any new focal deficits All inpatient medications were reviewed and appropriate changes in these medications as dictated in the interval history and assessment and plan. 11/02/2019 Patient is seen and evaluated in follow-up today sitting up in the chair and states that his breathing has gotten much better although still becomes dyspneic on exertion. Patient is currently on IV Lasix for diuresis and will continue at this time. Patient does not normally wear oxygen at home and is currently maintained on 2 L of oxygen via nasal cannula. Will attempt to wean and will need a home O2 eval prior to discharge. Patient continues to have some bilateral lower extremity swelling and has been instructed to elevate lower extremities while at rest. Gianni wrap have been applied and have been helping. Awaiting repeat labs today. No reports of chest pain, worsening shortness of breath, or palpitations. Patient is afebrile. No reports her nausea or vomiting and patient is tolerating diet. 11/03/2019 Patient is seen in follow-up today and continues to slowly improve with his breathing. Patient is maintaining saturation in the low 90s 93-94 % on room air. Patient continues to be diuresed with IV Lasix twice daily and will continue at this time. Creatinine slowly improving and is currently 2.38. Nephrology is following. No acute overnight issues. Patient's blood sugars have gotten quite low and not requiring long-acting that he normally gets in the morning for the last 2 days. Will continue to monitor closely. Will continue to hold long acting and continue with sliding scale at this time. Objective - Vital Signs Vital signs: Vital Signs Temp 97.7 F 11/03/19 07:40 Pulse 70 11/03/19 07:40 Resp 16 11/03/19 07:40 BP 132/62 11/03/19 07:40 Pulse Ox 93 L 11/03/19 07:40 Intake & Output 11/02/19 11/03/19 11/03/19 18:59 06:59 18:59 Intake Total 900 240 Output Total 700 300 Balance 200 -60 Weight 87.4 kg Intake: Oral 900 240 Output: Urine 700 300 Other: Voiding Method Toilet Toilet Toilet # Voids 1 # Bowel Movements 1 - Exam GENERAL: The patient is alert and oriented x3, not in any acute distress. Well developed, well nourished. HEENT: Pupils are round and equally reacting to light. EOMI. No scleral icterus. No conjunctival pallor. Normocephalic, atraumatic. No pharyngeal erythema. No thyromegaly. CARDIOVASCULAR: S1 and S2 present. No murmurs, rubs, or gallops. Does have elevated JVD PULMONARY: Good air entry noted with mild bibasilar crackles present, improved from yesterday ABDOMEN: Soft, nontender, nondistended, normoactive bowel sounds. No palpable organomegaly. MUSCULOSKELETAL: No joint swelling or deformity. EXTREMITIES: No cyanosis, clubbing, and bilateral pitting pedal edema. Slight improvement of the bilateral lower extremity edema with Gianni wraps noted NEUROLOGICAL: Gross neurological examination did not reveal any focal deficits. SKIN: No rashes. - Labs CBC & Chem 7: 11/03/19 06:07 11/03/19 06:07 Labs: Abnormal Lab Results - Last 24 Hours (Table) 11/02/19 11/02/19 11/02/19 Range/Units 11:35 12:29 12:29 RBC (4.30-5.90) m/uL Hgb 12.4 L (13.0-17.5) gm/dL Hct (39.0-53.0) % MCHC 30.8 L (31.0-37.0) g/dL Lymphocytes # 0.3 L (1.0-4.8) k/uL BUN 71 H (9-20) mg/dL Creatinine 2.46 H (0.66-1.25) mg/dL Glucose 158 H (74-99) mg/dL POC Glucose (mg/dL) 155 H (75-99) mg/dL Calcium (8.4-10.2) mg/dL 11/02/19 11/02/19 11/03/19 Range/Units 16:29 20:07 06:07 RBC 4.25 L (4.30-5.90) m/uL Hgb 11.7 L (13.0-17.5) gm/dL Hct 38.4 L (39.0-53.0) % MCHC 30.5 L (31.0-37.0) g/dL Lymphocytes # 0.4 L (1.0-4.8) k/uL BUN (9-20) mg/dL Creatinine (0.66-1.25) mg/dL Glucose (74-99) mg/dL POC Glucose (mg/dL) 183 H 221 H (75-99) mg/dL Calcium (8.4-10.2) mg/dL 11/03/19 11/03/19 11/03/19 Range/Units 06:07 06:12 06:24 RBC (4.30-5.90) m/uL Hgb (13.0-17.5) gm/dL Hct (39.0-53.0) % MCHC (31.0-37.0) g/dL Lymphocytes # (1.0-4.8) k/uL BUN 71 H (9-20) mg/dL Creatinine 2.38 H (0.66-1.25) mg/dL Glucose 38 L* (74-99) mg/dL POC Glucose (mg/dL) 58 L 68 L (75-99) mg/dL Calcium 8.2 L (8.4-10.2) mg/dL Assessment and Plan Assessment: -Congestive heart failure chronic systolic as well as diastolic dysfunction with acute exacerbation patient on 40 IV twice a day of Lasix patient is also on metolazone which will be continued. Cardiology and nephrology following -Hyperkalemia secondary to renal failure and Aldactone was discontinued. 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 Creatinine slightly improved at 2.38 and will continue with IV Lasix 40 mg twice daily for an additional 24 hours. Nephrology is following. Will repeat a.m. labs. -Type 2 diabetes mellitus with mildly low blood sugar. will continue with sliding scale and monitor closely, continue to hold long acting insulin at this time. -Hypertension -Bilateral venous stasis dermatosis -Gastroesophageal reflux disease -Coronary artery disease -Atrial fibrillation presently rate controlled sinus rhythm probably proximal A. fib continue with anticoagulation.
--- NOTE | 2019-11-03 16:36 | PN ---
PROGRESS NOTE Patient is seen for followup for acute kidney injury on top of chronic kidney disease. Patient was admitted with volume overload and acute kidney injury, mainly cardiorenal, currently improving. Patient is maintained on IV Lasix. Serum creatinine is slightly better, down to 2.38 from 2.6 at peak. Baseline creatinine is about 1.7 to 1.9 mg/dL. PHYSICAL EXAMINATION: On examination today patient is comfortable. Blood pressure is 140/71, heart rate 69 per minute. He is afebrile. Examination of lower extremities shows edema 1+ bilaterally. ABDOMEN: Soft, nontender. [employer] exam is grossly intact. LABS: Labs show sodium 138, potassium 4.2, chloride 103, BUN 71, serum creatinine 2.38. Glucose was low at 38 this morning. ASSESSMENT: 1. Acute kidney injury, cardiorenal, currently improving. 2. 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 Baseline creatinine 1.7 to 1.9 mg/dL. 3. Volume overload, now improved. Patient is maintained on IV Lasix. 4. Cardiomyopathy, ejection fraction 45% to 50%, with moderately dilated left atrium. Patient also has severely dilated right ventricle. Mild pulmonary hypertension was also noted. PLAN: Continue IV Lasix. We can switch to p.o. Lasix and patient can be discharged tomorrow. MMODL / IJN: [id number] /
[2019-11-03 17:10] LABS: Glucose,Whole Blood 173 mg/dL (75-99)
[2019-11-03 20:30] LABS: Glucose,Whole Blood 249 mg/dL (75-99)
[2019-11-03] MEDS: ASPIRIN 81 MG PO SCH (20:44)
[2019-11-03] MEDS: MELATONIN 3 MG TABLET PO SCH (20:46)
[2019-11-04 02:03] LABS: Glucose,Whole Blood 113 mg/dL (75-99)
[2019-11-04 05:49] LABS: Glucose,Whole Blood 168 mg/dL (75-99)
[2019-11-04] MEDS: INSULIN DETEMIR (LEVEMIR) 100 UNIT/ML SYR SQ SCH (06:19)
[2019-11-04] MEDS: INSULIN ASPART (NovoLOG) 100 UNIT/ML VIAL SQ SCH ×4 (06:20→21:15)
[2019-11-04] MEDS: ASCORBIC ACID 500 MG TAB PO SCH ×2 (06:20→16:35)
[2019-11-04 07:03] LABS: Calcium 8.3 mg/dL (8.4-10.2); Potassium 4.2 mmol/L (3.5-5.1)
[2019-11-04] MEDS: PSYLLIUM HUSK 100% 6 GM PACKET PO SCH (09:22)
[2019-11-04] MEDS: FERROUS SULFATE 325 MG TAB PO SCH ×2 (09:22→21:15)
[2019-11-04] MEDS: SODIUM BICARBONATE TAB 650 MG TAB PO SCH ×2 (09:22→21:15)
[2019-11-04] MEDS: FUROSEMIDE 10 MG/ML 4 ML VIAL IV SCH ×2 (09:22→21:15)
[2019-11-04] MEDS: FINASTERIDE 5 MG TAB PO SCH (09:22)
[2019-11-04] MEDS: APIXABAN 5 MG TAB PO SCH ×2 (09:22→21:15)
[2019-11-04] MEDS: TAMSULOSIN 0.4 MG CAP.ER.24H PO SCH ×2 (09:22→21:15)
[2019-11-04] MEDS: hydrALAZINE HCL 25 MG TAB PO SCH ×2 (09:22→21:15)
[2019-11-04] MEDS: Rosuvastatin Calcium [Crestor] 40 MG PO SCH (09:26)
[2019-11-04] MEDS: METOPROLOL TARTRATE 25 MG TAB PO SCH ×2 (09:26→21:15)
--- NOTE | 2019-11-04 09:53 | XR ---
EXAMINATION TYPE: XR chest 2V DATE OF EXAM: 11/04/2019 HISTORY: R/O Pneumonia. REFERENCE: Previous study dated 10/30/2019. FINDINGS: There has been a midline sternotomy. There are bilateral pleural effusions. Some of the fluid on the right is trapped within the major fis sure. The heart is enlarged. There is bibasilar atelectasis. There has been no interval change in the appearance of the chest. IMPRESSION: NO SIGNIFICANT INTERVAL CHANGE IN THE APPEARANCE OF THE CHEST.
--- NOTE | 2019-11-04 10:18 | P.DS ---
Providers Date of admission: 10/30/19 20:14 Attending physician: Elvira Stoddard Consults: 10/30/19 20:14 Consult Physician Stat Consulting Provider: Sebastien Chahal Consult Reason/Comments: CHF, shortness of breath Do you want consulting provider notified?: Yes 11/01/19 09:38 Consult Physician Routine Consulting Provider: Dayan Strange Consult Reason/Comments: ARF Do you want consulting provider notified?: Yes Primary care physician: [facility] Hospital Course: Patient with the systolic dysfunction as well as diastolic dysfunction Without any exacerbation is IV Lasix patient significant improved but still has crackles on lung exam will be can you done Lasix although patient's creatinine has worsened we'll also consult nephrology. Patient's potassium has went up a discontinue Aldactone and patient will be started on a dose of Kayexalate. 11/02/2019 Patient is seen and evaluated in follow-up today sitting up in the chair and states that his breathing has gotten much better although still becomes dyspneic on exertion. Patient is currently on IV Lasix for diuresis and will continue at this time. Patient does not normally wear oxygen at home and is currently maintained on 2 L of oxygen via nasal cannula. Will attempt to wean and will need a home O2 eval prior to discharge. Patient continues to have some bilateral lower extremity swelling and has been instructed to elevate lower extremities while at rest. Gianni wrap have been applied and have been helping. Awaiting repeat labs today. No reports of chest pain, worsening shortness of breath, or palpitations. Patient is afebrile. No reports her nausea or vomiting and patient is tolerating diet. 11/03/2019 Patient is seen in follow-up today and continues to slowly improve with his breathing. Patient is maintaining saturation in the low 90s 93-94 % on room air. Patient continues to be diuresed with IV Lasix twice daily and will continue at this time. Creatinine slowly improving and is currently 2.38. Nephrology is following. No acute overnight issues. Patient's blood sugars have gotten quite low and not requiring long-acting that he normally gets in the morning for the last 2 days. Will continue to monitor closely. Will continue to hold long acting and continue with sliding scale at this time. 11/04/2019 Oxygen saturations improved 100% patient still has bibasilar crackles no JVD but does have pedal edema patient has Gianni bandages chest x-ray no significant improvement but patient is requesting to go home overall patient appears to have improved respiratory status did lose weight if cleared by cardiology and nephrology patient will be discharged today patient was not taking his Lasix at home patient will be resumed on his Lasix Exam GENERAL: The patient is alert and oriented x3, not in any acute distress. Well developed, well nourished. HEENT: Pupils are round and equally reacting to light. EOMI. No scleral icterus. No conjunctival pallor. Normocephalic, atraumatic. No pharyngeal erythema. No thyromegaly. CARDIOVASCULAR: S1 and S2 present. No murmurs, rubs, or gallops. Does have elevated JVD PULMONARY: Good air entry noted with mild bibasilar crackles present, improved from yesterday ABDOMEN: Soft, nontender, nondistended, normoactive bowel sounds. No palpable organomegaly. MUSCULOSKELETAL: No joint swelling or deformity. EXTREMITIES: No cyanosis, clubbing, and bilateral pitting pedal edema. Slight improvement of the bilateral lower extremity edema with Gianni wraps noted NEUROLOGICAL: Gross neurological examination did not reveal any focal deficits. SKIN: No rashes. Assessment and Plan Assessment: -Congestive heart failure chronic systolic as well as diastolic dysfunction with acute exacerbation she will be discharged on Lasix and metolazone I'll leave the dosing to cut nephrology -Hyperkalemia secondary to renal failure and Aldactone was discontinued. 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 Decrease the dose of long-acting insulin to 15 units -Hypertension -Bilateral venous stasis dermatosis -Gastroesophageal reflux disease -Coronary artery disease -Atrial fibrillation presently rate controlled sinus rhythm probably proximal A. fib continue with anticoagulation. Patient Condition at Discharge: Stable Plan - Discharge Summary Discharge Rx Participant: No New Discharge Prescriptions: Continue Ascorbic Acid [Vitamin C] 500 mg PO BID-W/MEALS tab Tamsulosin [Flomax] 0.4 mg PO BID Rosuvastatin Calcium [Crestor] 40 mg PO DAILY Melatonin 3 mg PO HS Aspirin EC [Ecotrin Low Dose] 81 mg PO HS Apixaban [Eliquis] 5 mg PO BID tab Acetaminophen Tab [Tylenol] 500 mg PO Q6HR PRN tab PRN Reason: Fever And/ Or Pain Metoprolol Tartrate [Lopressor] 25 mg PO BID Insulin Glargine [Lantus] 20 unit SQ AC-BRKFST Ferrous Sulfate [Iron (65 MG Elemental)] 325 mg PO BID Albuterol Inhaler [Ventolin Hfa Inhaler] 2 puff INHALATION RT-Q4H PRN PRN Reason: Shortness Of Breath Ammonium Lactate Cream [Lac-Hydrin 12% Cream] 1 applic TOPICAL BID Bacitracin Oint 1 applic TOPICAL BID PRN PRN Reason: INFECTION Finasteride [Proscar] 5 mg PO DAILY Furosemide [Lasix] 40 mg PO BID@0800,1500 hydrALAZINE HCL 25 mg PO BID Insulin Aspart [NovoLOG] See Protocol SQ ACHS Ipratropium-Albuterol Nebulize [Duoneb 0.5 mg-3 mg/3 ml Soln] 3 ml INHALATION RT-Q4H PRN PRN Reason: Shortness Of Breath Psyllium Husk 100% [Metamucil Packet] 6 gm PO DAILY Sodium Bicarbonate Tab 650 mg PO BID Spironolactone 37.5 mg PO DAILY Metolazone [Zaroxolyn] 2.5 mg PO Q48H Discharge Medication List Ascorbic Acid [Vitamin C] 500 mg PO BID-W/MEALS tab 12/20/18 [Rx] Melatonin 3 mg PO HS 01/13/19 [History] Rosuvastatin Calcium [Crestor] 40 mg PO DAILY 01/13/19 [History] Tamsulosin [Flomax] 0.4 mg PO BID 01/13/19 [History] Aspirin EC [Ecotrin Low Dose] 81 mg PO HS 01/16/19 [History] Acetaminophen Tab [Tylenol] 500 mg PO Q6HR PRN tab 01/25/19 [Rx] Apixaban [Eliquis] 5 mg PO BID tab 01/25/19 [Rx] Metoprolol Tartrate [Lopressor] 25 mg PO BID 02/08/19 [History] Ferrous Sulfate [Iron (65 MG Elemental)] 325 mg PO BID 07/27/19 [History] Insulin Glargine [Lantus] 20 unit SQ AC-BRKFST 07/27/19 [History] Albuterol Inhaler [Ventolin Hfa Inhaler] 2 puff INHALATION RT-Q4H PRN 10/30/19 [History] Ammonium Lactate Cream [Lac-Hydrin 12% Cream] 1 applic TOPICAL BID 10/30/19 [History] Bacitracin Oint 1 applic TOPICAL BID PRN 10/30/19 [History] Finasteride [Proscar] 5 mg PO DAILY 10/30/19 [History] Furosemide [Lasix] 40 mg PO BID@0800,1500 10/30/19 [History] Insulin Aspart [NovoLOG] See Protocol SQ ACHS 10/30/19 [History] Ipratropium-Albuterol Nebulize [Duoneb 0.5 mg-3 mg/3 ml Soln] 3 ml INHALATION RT-Q4H PRN 10/30/19 [History] Metolazone [Zaroxolyn] 2.5 mg PO Q48H 10/30/19 [History] Psyllium Husk 100% [Metamucil Packet] 6 gm PO DAILY 10/30/19 [History] Sodium Bicarbonate Tab 650 mg PO BID 10/30/19 [History] Spironolactone 37.5 mg PO DAILY 10/30/19 [History] hydrALAZINE HCL 25 mg PO BID 10/30/19 [History] Follow up Appointment(s)/Referral(s): [facility] [NON-STAFF] - 1-2 Days Geo Epps MD [STAFF PHYSICIAN] - 11/14/19 1:30 pm [facility] [Primary Care Provider] - 11/13/19 10:30 am Patient Instructions/Handouts: Heart Failure (DC), Heart Healthy Diet (DC) Activity/Diet/Wound Care/Special Instructions: 1. Weigh yourself every morning after you urinate. If you gain 2-3 pounds overnight or 5 pounds in one week, call your primary physician for guidance on your medications. Keep a log of your weights. 2. Avoid salt, or foods with hidden salt. Extra salt makes your heart work harder and traps the fluid in your body for longer. 3. Take all of your medications as directed, especially your water pills. NEVER skip a dose. 4. Elevate your legs when you are not up moving around to help with circulation and prevent swelling. 5. Call your physician if you notice any extra swelling in your legs, ankles, feet or abdomen, if you have a new dry cough, if your shortness of breath worsens with activity or at rest, or if you feel more fatigued. Discharge Disposition: HOME WITH HOME HEALTH SERVICES Care Plan Goals (MU): Indigent funds on D/C - form in chart.
[2019-11-04 11:28] LABS: Glucose,Whole Blood 233 mg/dL (75-99)
[2019-11-04] MEDS: AMMONIUM LACTATE 12% CREAM 140 GM TUBE TOPICAL SCH ×2 (12:01→22:13)
--- NOTE | 2019-11-04 13:11 | P.PN ---
Subjective Progress Note Date: 11/04/19 Follow-up for acute kidney injury. Feeling better. No nausea vomiting diarrhea. Objective - Vital Signs Vital signs: Vital Signs Temp 98.1 F 11/04/19 12:34 Pulse 70 11/04/19 12:34 Resp 16 11/04/19 12:34 BP 152/83 11/04/19 12:34 Pulse Ox 94 L 11/04/19 12:34 Intake & Output 11/03/19 11/04/19 11/04/19 18:59 06:59 18:59 Intake Total 730 240 Output Total 300 Balance 430 240 Weight 85.6 kg Intake: IV 10 0.9 10 Oral 720 240 Output: Urine 300 Other: Voiding Method Toilet Toilet Toilet # Voids 1 # Bowel Movements 1 - Exam No acute distress S1-S2 heard Decreased breath sounds Trace edema - Labs CBC & Chem 7: 11/03/19 06:07 11/04/19 06:16 Labs: Abnormal Lab Results - Last 24 Hours (Table) 11/03/19 11/03/19 11/04/19 Range/Units 17:08 20:28 02:00 BUN (9-20) mg/dL Creatinine (0.66-1.25) mg/dL Glucose (74-99) mg/dL POC Glucose (mg/dL) 173 H 249 H 113 H (75-99) mg/dL Calcium (8.4-10.2) mg/dL 11/04/19 11/04/19 11/04/19 Range/Units 05:47 06:16 11:26 BUN 73 H (9-20) mg/dL Creatinine 2.19 H (0.66-1.25) mg/dL Glucose 111 H (74-99) mg/dL POC Glucose (mg/dL) 168 H 233 H (75-99) mg/dL Calcium 8.3 L (8.4-10.2) mg/dL Assessment and Plan Assessment: #1 nonoliguric acute kidney injury secondary to type I cardiorenal syndrome. #2 chronic kidney disease stage IIIB/4 secondary to nephrosclerosis with a baseline creatinine of 1.7-1.9 MG per DL. #3 volume overload, better with diuresis #4 systolic and diastolic dysfunction with EF of 45-50% Plan: #1 renal function improving. Okay to change Lasix 40 mg daily at discharge. #2 avoid nephrotoxic agents and hypotensive episodes #3 follow-up in the clinic in 1-2 weeks.
--- NOTE | 2019-11-04 13:13 | P.PN ---
Subjective Progress Note Date: 11/04/19 The patient was interviewed and examined sitting up comfortably in the recliner chair eating his lunch. He states he is feeling relatively well. He does have some shortness of breath, but denies any chest pain, chest pressure, dizziness, or vertigo. GENERAL: Well-appearing, well-nourished and in no acute distress. NECK: Supple without JVD or thyromegaly. LUNGS: Breath sounds diminished. Respiration equal and unlabored. No wheezes, rales or rhonchi. HEART: Regular rate and rhythm. Systolic murmur. No rubs or gallops. S1 and S2 heard. EXTREMITIES: Normal range of motion. +3 pitting edema. No clubbing or cyanosis. Peripheral pulses intact and strong. Vital signs: Blood pressure 133/69, heart rate 71, respirations 16, temperature 98.3, and 95% on room air. Laboratory data: Sodium 137, potassium 4.2, BUN 73 creatinine 2.19 Impression: #1 congestive heart failure, acute on chronic #2 known cardiomyopathy, EF 45% #3 aortic stenosis #4 chronic kidney disease, improving #5 coronary artery disease Plan: Continue current medication regimen. We'll consider transitioning to oral furosemide tomorrow. Recommend elevation of legs and ambulation for fluid mobilization. Objective - Vital Signs Vital signs: Vital Signs Temp 98.1 F 11/04/19 12:34 Pulse 70 11/04/19 12:34 Resp 16 11/04/19 12:34 BP 152/83 11/04/19 12:34 Pulse Ox 94 L 11/04/19 12:34 Intake & Output 11/03/19 11/04/19 11/04/19 18:59 06:59 18:59 Intake Total 730 240 Output Total 300 Balance 430 240 Weight 85.6 kg Intake: IV 10 0.9 10 Oral 720 240 Output: Urine 300 Other: Voiding Method Toilet Toilet Toilet # Voids 1 # Bowel Movements 1 - Labs CBC & Chem 7: 11/03/19 06:07 11/04/19 06:16 Labs: Abnormal Lab Results - Last 24 Hours (Table) 11/03/19 11/03/19 11/04/19 Range/Units 17:08 20:28 02:00 BUN (9-20) mg/dL Creatinine (0.66-1.25) mg/dL Glucose (74-99) mg/dL POC Glucose (mg/dL) 173 H 249 H 113 H (75-99) mg/dL Calcium (8.4-10.2) mg/dL 11/04/19 11/04/19 11/04/19 Range/Units 05:47 06:16 11:26 BUN 73 H (9-20) mg/dL Creatinine 2.19 H (0.66-1.25) mg/dL Glucose 111 H (74-99) mg/dL POC Glucose (mg/dL) 168 H 233 H (75-99) mg/dL Calcium 8.3 L (8.4-10.2) mg/dL
[2019-11-04 17:09] LABS: Glucose,Whole Blood 214 mg/dL (75-99)
[2019-11-04 20:20] LABS: Glucose,Whole Blood 233 mg/dL (75-99)
[2019-11-04] MEDS: MELATONIN 3 MG TABLET PO SCH (21:15)
[2019-11-04] MEDS: ASPIRIN 81 MG PO SCH (21:15)
[2019-11-05 01:35] LABS: Glucose,Whole Blood 138 mg/dL (75-99)
[2019-11-05 03:55] VITALS: PULSE 70; RESP 16
[2019-11-05] MEDS: INSULIN DETEMIR (LEVEMIR) 100 UNIT/ML SYR SQ SCH (04:43)
[2019-11-05 06:28] LABS: Glucose,Whole Blood 186 mg/dL (75-99)
[2019-11-05] MEDS: ASCORBIC ACID 500 MG TAB PO SCH (06:47)
[2019-11-05] MEDS: INSULIN ASPART (NovoLOG) 100 UNIT/ML VIAL SQ SCH ×2 (06:47→11:54)
[2019-11-05] MEDS: FUROSEMIDE 10 MG/ML 4 ML VIAL IV SCH (08:46)
[2019-11-05] MEDS: hydrALAZINE HCL 25 MG TAB PO SCH (08:47)
[2019-11-05] MEDS: FINASTERIDE 5 MG TAB PO SCH (08:47)
[2019-11-05] MEDS: PSYLLIUM HUSK 100% 6 GM PACKET PO SCH (08:47)
[2019-11-05] MEDS: AMMONIUM LACTATE 12% CREAM 140 GM TUBE TOPICAL SCH (08:47)
[2019-11-05] MEDS: TAMSULOSIN 0.4 MG CAP.ER.24H PO SCH (08:47)
[2019-11-05] MEDS: FERROUS SULFATE 325 MG TAB PO SCH (08:47)
[2019-11-05] MEDS: SODIUM BICARBONATE TAB 650 MG TAB PO SCH (08:47)
[2019-11-05] MEDS: METOPROLOL TARTRATE 25 MG TAB PO SCH (08:47)
[2019-11-05] MEDS: APIXABAN 5 MG TAB PO SCH (08:47)
[2019-11-05] MEDS: Rosuvastatin Calcium [Crestor] 40 MG PO SCH (08:48)
[2019-11-05] MEDS: METOLAZONE 2.5 MG TAB PO SCH (08:51)
[2019-11-05 09:01] VITALS: BP 126/63; TEMP 97.9
--- NOTE | 2019-11-05 11:37 | P.PN ---
Subjective Progress Note Date: 11/05/19 Follow-up for acute kidney injury. Feeling better. No nausea vomiting diarrhea. Objective - Vital Signs Vital signs: Vital Signs Temp 97.9 F 11/05/19 08:57 Pulse 70 11/05/19 08:57 Resp 16 11/05/19 08:57 BP 126/63 11/05/19 08:57 Pulse Ox 97 11/05/19 08:57 Intake & Output 11/04/19 11/05/19 11/05/19 18:59 06:59 18:59 Intake Total 480 240 Balance 480 240 Weight 82.6 kg Intake: Oral 480 240 Other: Voiding Method Toilet Toilet Toilet # Voids 1 # Bowel Movements 1 - Exam No acute distress S1-S2 heard Decreased breath sounds Trace edema - Labs CBC & Chem 7: 11/03/19 06:07 11/04/19 06:16 Labs: Abnormal Lab Results - Last 24 Hours (Table) 11/04/19 11/04/19 11/05/19 Range/Units 16:49 20:17 01:32 POC Glucose (mg/dL) 214 H 233 H 138 H (75-99) mg/dL 11/05/19 Range/Units 06:27 POC Glucose (mg/dL) 186 H (75-99) mg/dL Assessment and Plan Assessment: #1 nonoliguric acute kidney injury secondary to type I cardiorenal syndrome. #2 chronic kidney disease stage IIIB/4 secondary to nephrosclerosis with a baseline creatinine of 1.7-1.9 MG per DL. #3 volume overload, better with diuresis #4 systolic and diastolic dysfunction with EF of 45-50% Plan: #1 renal function improving. Okay to change Lasix 40 mg daily and metolazone 2.53 times a week at discharge. #2 avoid nephrotoxic agents and hypotensive episodes #3 follow-up in the clinic in 1-2 weeks.
[2019-11-05 11:40] LABS: Glucose,Whole Blood 194 mg/dL (75-99)
--- NOTE | 2019-11-05 11:45 | P.PN ---
Subjective Progress Note Date: 11/05/19 11/04/2019 The patient was interviewed and examined sitting up comfortably in the recliner chair eating his lunch. He states he is feeling relatively well. He does have some shortness of breath, but denies any chest pain, chest pressure, dizziness, or vertigo. Encourage ambulation and elevation of legs for fluid mobilization. 11/05/2019 The patient was interviewed and examined sitting up comfortably in the recliner chair. He states he is feeling well today. His shortness of breath has improved. He denies any chest pain, chest pressure, palpitations, dizziness, or lightheadedness. He states he has been up ambulating around his room and is eager to go home. He states he kept his legs elevated yesterday and his swelling has improved. GENERAL: Well-appearing, well-nourished and in no acute distress. NECK: Supple without JVD or thyromegaly. LUNGS: Breath sounds diminished. Respiration equal and unlabored. No wheezes, rales or rhonchi. HEART: Regular rate and rhythm. Systolic murmur. No rubs or gallops. S1 and S2 heard. EXTREMITIES: Normal range of motion. mild pitting edema. No clubbing or cyanosis. Peripheral pulses intact and strong. Vital signs: Blood pressure 126/63, heart rate 70, respirations 16, temperature 97.9, 97% on room air Impression: #1 congestive heart failure, acute on chronic #2 known cardiomyopathy, EF 45% #3 aortic stenosis #4 chronic kidney disease, improving #5 coronary artery disease Plan: Transition to 40 mg by mouth Lasix. If patient tolerates by mouth diuretics, he is cleared to be discharged from the cardiac standpoint. Objective - Vital Signs Vital signs: Vital Signs Temp 97.9 F 11/05/19 08:57 Pulse 70 11/05/19 08:57 Resp 16 11/05/19 08:57 BP 126/63 11/05/19 08:57 Pulse Ox 97 11/05/19 08:57 Intake & Output 11/04/19 11/05/19 11/05/19 18:59 06:59 18:59 Intake Total 480 240 Balance 480 240 Weight 82.6 kg Intake: Oral 480 240 Other: Voiding Method Toilet Toilet Toilet # Voids 1 # Bowel Movements 1 - Labs CBC & Chem 7: 11/03/19 06:07 11/04/19 06:16 Labs: Abnormal Lab Results - Last 24 Hours (Table) 11/04/19 11/04/19 11/05/19 Range/Units 16:49 20:17 01:32 POC Glucose (mg/dL) 214 H 233 H 138 H (75-99) mg/dL 11/05/19 Range/Units 06:27 POC Glucose (mg/dL) 186 H (75-99) mg/dL
--- NOTE | 2019-11-05 12:10 | P.PN ---
Subjective Patient with the systolic dysfunction as well as diastolic dysfunction Without any exacerbation is IV Lasix patient significant improved but still has crackles on lung exam will be can you done Lasix although patient's creatinine has worsened we'll also consult nephrology. Patient's potassium has went up a discontinue Aldactone and patient will be started on a dose of Kayexalate. 11/02/2019 Patient is seen and evaluated in follow-up today sitting up in the chair and states that his breathing has gotten much better although still becomes dyspneic on exertion. Patient is currently on IV Lasix for diuresis and will continue at this time. Patient does not normally wear oxygen at home and is currently maintained on 2 L of oxygen via nasal cannula. Will attempt to wean and will need a home O2 eval prior to discharge. Patient continues to have some bilateral lower extremity swelling and has been instructed to elevate lower extremities while at rest. Gianni wrap have been applied and have been helping. Awaiting repeat labs today. No reports of chest pain, worsening shortness of breath, or palpitations. Patient is afebrile. No reports her nausea or vomiting and patient is tolerating diet. 11/03/2019 Patient is seen in follow-up today and continues to slowly improve with his breathing. Patient is maintaining saturation in the low 90s 93-94 % on room air. Patient continues to be diuresed with IV Lasix twice daily and will continue at this time. Creatinine slowly improving and is currently 2.38. Nephrology is following. No acute overnight issues. Patient's blood sugars have gotten quite low and not requiring long-acting that he normally gets in the morning for the last 2 days. Will continue to monitor closely. Will continue to hold long acting and continue with sliding scale at this time. 11/04/2019 Oxygen saturations improved 100% patient still has bibasilar crackles no JVD but does have pedal edema patient has Gianni bandages chest x-ray no significant improvement but patient is requesting to go home overall patient appears to have improved respiratory status did lose weight if cleared by cardiology and n ephrology patient will be discharged today patient was not taking his Lasix at home patient will be resumed on his Lasix 11/05/2019 Patient doesn't have any more crackles today patient is doing very well patient will be discharged today we'll cut down the the dose of for long-acting insulin to 10 units patient is only on sliding scale patient blood sugars are bit elevated here because his not receiving his long-acting insulin. Exam GENERAL: The patient is alert and oriented x3, not in any acute distress. Well developed, well nourished. HEENT: Pupils are round and equally reacting to light. EOMI. No scleral icterus. No conjunctival pallor. Normocephalic, atraumatic. No pharyngeal erythema. No thyromegaly. CARDIOVASCULAR: S1 and S2 present. No murmurs, rubs, or gallops. Does have elevated JVD PULMONARY: Good air entry noted with mild bibasilar crackles present, improved from yesterday ABDOMEN: Soft, nontender, nondistended, normoactive bowel sounds. No palpable organomegaly. MUSCULOSKELETAL: No joint swelling or deformity. EXTREMITIES: No cyanosis, clubbing, and bilateral pitting pedal edema. Slight improvement of the bilateral lower extremity edema with Gianni wraps noted NEUROLOGICAL: Gross neurological examination did not reveal any focal deficits. SKIN: No rashes. Assessment and Plan Assessment: -Congestive heart failure chronic systolic as well as diastolic dysfunction with acute exacerbation she will be discharged on Lasix and metolazone I'll leave the dosing to cut nephrology -Hyperkalemia secondary to renal failure and Aldactone was discontinued. 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 Decrease the dose of long-acting insulin to 15 units -Hypertension -Bilateral venous stasis dermatosis -Gastroesophageal reflux disease -Coronary artery disease -Atrial fibrillation presently rate controlled sinus rhythm probably proximal A. fib continue with anticoagulat Objective - Vital Signs Vital signs: Vital Signs Temp 97.9 F 11/05/19 08:57 Pulse 70 11/05/19 08:57 Resp 16 11/05/19 08:57 BP 126/63 11/05/19 08:57 Pulse Ox 97 11/05/19 08:57 Intake & Output 11/04/19 11/05/19 11/05/19 18:59 06:59 18:59 Intake Total 480 240 Balance 480 240 Weight 82.6 kg Intake: Oral 480 240 Other: Voiding Method Toilet Toilet Toilet # Voids 1 # Bowel Movements 1 - Labs CBC & Chem 7: 11/03/19 06:07 02/29/20 06:16 Labs: Abnormal Lab Results - Last 24 Hours (Table) 11/04/19 11/04/19 11/05/19 Range/Units 16:49 20:17 01:32 POC Glucose (mg/dL) 214 H 233 H 138 H (75-99) mg/dL 11/05/19 11/05/19 Range/Units 06:27 11:39 POC Glucose (mg/dL) 186 H 194 H (75-99) mg/dL
[2019-11-06] MEDS ORDERED: FUROSEMIDE 40 MG TAB PO SCH (09:00)
== END 2019-11-05 13:35 | disposition home or self-care (01) | DRG 291 ==
LOC: EC 16:45 → 3SCARD 20:14
PROVIDERS: ADMIT Hospitalist; ATTEND Hospitalist
DX: I13.0 Hypertensive heart and chronic kidney disease with heart failure and stage 1 through stage 4 chronic kidney disease, or unspecified chronic kidney disease (principal); I50.43 Acute on chronic combined systolic (congestive) and diastolic (congestive) heart failure; N17.9 Acute kidney failure, unspecified; N18.4 Chronic kidney disease, stage 4 (severe); M19.90 Unspecified osteoarthritis, unspecified site; K21.9 Gastro-esophageal reflux disease without esophagitis; I25.10 Atherosclerotic heart disease of native coronary artery without angina pectoris; E87.5 Hyperkalemia; E78.5 Hyperlipidemia, unspecified; E11.22 Type 2 diabetes mellitus with diabetic chronic kidney disease; I25.5 Ischemic cardiomyopathy; I27.20 Pulmonary hypertension, unspecified; I87.8 Other specified disorders of veins; L98.9 Disorder of the skin and subcutaneous tissue, unspecified; I48.0 Paroxysmal atrial fibrillation; N40.1 Benign prostatic hyperplasia with lower urinary tract symptoms; Z96.1 Presence of intraocular lens; I08.1 Rheumatic disorders of both mitral and tricuspid valves; I44.0 Atrioventricular block, first degree; I25.2 Old myocardial infarction; Z95.5 Presence of coronary angioplasty implant and graft; Z95.1 Presence of aortocoronary bypass graft; Z87.891 Personal history of nicotine dependence; Z87.440 Personal history of urinary (tract) infections; Z79.899 Other long term (current) drug therapy; Z79.4 Long term (current) use of insulin; Z79.01 Long term (current) use of anticoagulants; Z88.8 Allergy status to other drugs, medicaments and biological substances; Z90.49 Acquired absence of other specified parts of digestive tract; Z90.89 Acquired absence of other organs; Z98.890 Other specified postprocedural states; Z82.49 Family history of ischemic heart disease and other diseases of the circulatory system; Z98.42 Cataract extraction status, left eye; Z98.41 Cataract extraction status, right eye
CPT/HCPCS: 36415; 71046; 80048; 80053; 83036; 83605; 83735; 83880; 84484; 85025; 85027; 85610; 85730; 93005; 93306; 94760; 96374; 99285

== ENCOUNTER 2019-12-26 19:22 | Inpatient (IN) | payer MEDICARE, BC ==
[2019-12-26] MEDS ORDERED: SODIUM CHLORIDE 0.9% 1,000 ML IV STA (19:41)
[2019-12-26] MEDS ORDERED: ALBUTEROL HFA INHALER INHALATION STA (19:41)
[2019-12-26] MEDS ORDERED: SODIUM CHLORIDE 0.9% 500 ML 500 ML IV STA (19:41)
--- NOTE | 2019-12-26 19:45 | ED ---
General Adult HPI - General Source: patient, EMS, RN notes reviewed, old records reviewed Mode of arrival: wheelchair Limitations: no limitations <Rina Marquis - Last Filed: 12/26/19 21:52> <Ayaz Goldman - Last Filed: 12/27/19 06:01> - General Chief complaint: Shortness of Breath Stated complaint: SOB Time Seen by Provider: 12/26/19 19:32 - History of Present Illness Initial comments: Patient is a 79-year-old male, history of CHF, chronic kidney diseas, and CAD. He presents today with complaints of worsening shortness of breath after being exposed to the cold air while walking from his doctor's appointment today. He had lab work drawn drawn at the [facility]. He is also called a few hours ago and told that he had an elevated potassium and he should come to the ER for evaluation. Patient states that he has a burning pain into his lungs. He denies any significant coughing. Denies any history of sick contacts including known exposure to Covid patients. Patient's seat pack inspector is Dr. Strange. His cardio logist is Dr. Epps. (Rina Marquis) - Related Data Home Medications Medication Instructions Recorded Confirmed Melatonin 3 mg PO HS 01/13/19 12/26/19 Rosuvastatin Calcium [Crestor] 40 mg PO DAILY 01/13/19 12/26/19 Tamsulosin [Flomax] 0.4 mg PO BID 01/13/19 12/26/19 Aspirin EC [Ecotrin Low Dose] 81 mg PO HS 01/16/19 12/26/19 Metoprolol Tartrate [Lopressor] 25 mg PO BID 02/08/19 12/26/19 Ferrous Sulfate [Iron (65 MG 325 mg PO BID 07/27/19 12/26/19 Elemental)] Ammonium Lactate Cream [Lac-Hydrin 1 applic TOPICAL BID 10/30/19 12/26/19 12% Cream] Bacitracin Oint 1 applic TOPICAL BID PRN 10/30/19 12/26/19 Finasteride [Proscar] 5 mg PO DAILY 10/30/19 12/26/19 Furosemide [Lasix] 40 mg PO BID@0800,1500 10/30/19 12/26/19 Insulin Aspart [NovoLOG] See Protocol SQ ACHS 10/30/19 12/26/19 Ipratropium-Albuterol Nebulize 3 ml INHALATION RT-Q4H PRN 10/30/19 12/26/19 [Duoneb 0.5 mg-3 mg/3 ml Soln] Metolazone [Zaroxolyn] 2.5 mg PO Q48H 10/30/19 12/26/19 Psyllium Husk 100% [Metamucil 6 gm PO DAILY 10/30/19 12/26/19 Packet] Sodium Bicarbonate Tab 650 mg PO BID 10/30/19 12/26/19 hydrALAZINE HCL 25 mg PO BID 10/30/19 12/26/19 Albuterol Sulfate [Ventolin HFA] 2 puff INHALATION RT-Q4H PRN 12/26/19 12/26/19 Previous Rx's Medication Instructions Recorded Ascorbic Acid [Vitamin C] 500 mg PO BID-W/MEALS tab 12/20/18 Acetaminophen Tab [Tylenol] 500 mg PO Q6HR PRN tab 01/25/19 Apixaban [Eliquis] 5 mg PO BID tab 01/25/19 Insulin Glargine,Hum.rec.anlog 10 unit SQ DAILY #1 pen 11/05/19 [Lantus Solostar] Allergies Allergy/AdvReac Type Severity Reaction Status Date / Time atorvastatin [From Lipitor] AdvReac MUSCLE/JOINT Verified 12/26/19 22:49 PAIN Review of Systems ROS Other: All systems not noted in ROS Statement are negative. <Rina Marquis - Last Filed: 12/26/19 21:52> ROS Other: All systems not noted in ROS Statement are negative. <Ayaz Goldman - Last Filed: 12/27/19 06:01> ROS Statement: Those systems with pertinent positive or pertinent negative responses have been documented in the HPI. Past Medical History Past Medical History: Atrial Flutter, Coronary Artery Disease (CAD), Heart Failure, Diabetes Mellitus, GERD/Reflux, Hyperlipidemia, Hypertension, Myocardial Infarction (HI), Osteoarthritis (OA), Renal Disease, Vascular Disorder Additional Past Medical History / Comment(s): Pt recently admitted to [facility] on 01/16/19 with bilateral lower extremity cellulitis with multiple ulcers-positive for klebsiella/pseudomonas, uncontrolled diabetes, pleural effusion with R thoracentesis, exacerbation CHF. Other Hx: Paroxysmal Aflutter, PAD, chronic bilateral venous stasis dermatitis, lower extremety infection/blisters, chronic CHF, IDDM type II, BPH, post CABG urinary retention, CRD stage III, Last Myocardial Infarction Date:: 12/08/18 History of Any Multi-Drug Resistant Organisms: None Reported Past Surgical History: Appendectomy, Coronary Bypass/CABG, Heart Catheterization With Stent Additional Past Surgical History / Comment(s): 12/08/18 CABG 4 vessels, PCI with stents 2004, cardioversion for Aflutter, bilateral cataract removals/lens implants. Past Anesthesia/Blood Transfusion Reactions: No Reported Reaction Additional Past Anesthesia/Blood Transfusion Reaction / Comment(s): Pt received blood with CABG Date of Last Stent Placement:: 2004 Past Psychological History: No Psychological Hx Reported Smoking Status: Former smoker Past Alcohol Use History: None Reported Past Drug Use History: None Reported - Past Family History Mother Family Medical History: Myocardial Infarction (HI) Additional Family Medical History / Comment(s): Mother had a HI at the age of 64 Father Additional Family Medical History / Comment(s): Father had mental health issues after a "bad" truck accident. <Rina Marquis - Last Filed: 12/26/19 21:52> General Exam Limitations: no limitations Head exam: Present: atraumatic, normocephalic, normal inspection Eye exam: Present: normal appearance, PERRL, EOMI. Absent: scleral icterus, conjunctival injection, periorbital swelling ENT exam: Present: normal exam, mucous membranes moist Neck exam: Present: normal inspection. Absent: tenderness, meningismus, lymphadenopathy Respiratory exam: Present: normal lung sounds bilaterally. Absent: respiratory distress, wheezes, rales, rhonchi, stridor Cardiovascular Exam: Present: regular rate, normal rhythm, normal heart sounds. Absent: systolic murmur, diastolic murmur, rubs, gallop, clicks GI/Abdominal exam: Present: soft, normal bowel sounds. Absent: distended, tenderness, guarding, rebound, rigid Extremities exam: Present: normal inspection, full ROM, normal capillary refill. Absent: tenderness, pedal edema, joint swelling, calf tenderness Back exam: Present: normal inspection, full ROM Neurological exam: Present: alert, oriented X3, CN II-XII intact Psychiatric exam: Present: normal affect, normal mood Skin exam: Present: warm, dry, intact, normal color. Absent: rash <Ida Marquisily - Last Filed: 12/26/19 21:52> - General Exam Comments Initial Comments: Ill-appearing 79-year-old male. No distress. (Rina Marquis) Course <GiovannaRina ordoñez - Last Filed: 12/26/19 21:52> Vital Signs 12/26/19 12/26/19 12/26/19 19:24 20:35 21:24 Temperature 97.2 F L Pulse Rate 75 76 69 Pulse Rate [ Service Center Manager ] Respiratory 22 18 20 Rate Blood Pressure 122/68 132/52 109/46 O2 Sat by Pulse 97 98 97 Oximetry 12/26/19 12/26/19 12/26/19 22:00 22:30 23:00 Temperature 97.9 F 97.2 F L Pulse Rate 68 65 73 Pulse Rate [ Service Center Manager ] Respiratory 24 20 20 Rate Blood Pressure 104/57 107/53 123/63 O2 Sat by Pulse 92 L 100 98 Oximetry 12/26/19 12/26/19 12/27/19 23:29 23:46 00:00 Temperature 97.3 F L 97.8 F Pulse Rate 76 82 80 Pulse Rate [ Service Center Manager ] Respiratory 20 17 17 Rate Blood Pressure 133/65 94/64 123/52 O2 Sat by Pulse 98 99 97 Oximetry 12/27/19 12/27/19 12/27/19 00:53 01:20 01:26 Temperature Pulse Rate 76 Pulse Rate [ 76 Service Center Manager ] Respiratory 17 16 20 Rate Blood Pressure 131/62 O2 Sat by Pulse 99 Oximetry 12/27/19 12/27/19 12/27/19 01:30 02:00 02:30 Temperature 97.8 F Pulse Rate 64 75 77 Pulse Rate [ Service Center Manager ] Respiratory 16 13 12 Rate Blood Pressure 116/62 O2 Sat by Pulse 96 97 97 Oximetry 12/27/19 12/27/19 12/27/19 03:00 03:30 03:35 Temperature Pulse Rate 63 73 Pulse Rate [ 78 Service Center Manager ] Respiratory 9 L 11 L 14 Rate Blood Pressure 123/74 O2 Sat by Pulse 97 96 Oximetry 12/27/19 12/27/19 12/27/19 04:00 04:30 05:00 Temperature 97.5 F L Pulse Rate 70 71 65 Pulse Rate [ Service Center Manager ] Respiratory 14 9 L 12 Rate Blood Pressure 123/62 130/62 O2 Sat by Pulse 95 96 96 Oximetry - Reevaluation(s) Reevaluation #1: 12/26/19 21:56 Patient complained of some nausea and chest discomfort after nurse administered Rocephin. Events vomited. After he vomited he stated he felt better. A second EKG was performed at 2126 during this time and did show right bundle branch block with left anterior fascicular block.. Particular undetermined. Ventricular rate of 90 bpm. Tenriism is 154 ms. QT QTc is 420/423 ms. (Rina Marquis) EKG Findings - EKG Comments: EKG Findings:: EKG performed at 1956 shows sinus rhythm with first-degree AV block. Premature atrial. Left axis deviation. Right bundle branch block. Inferior infarct age undetermined. Abnormal EG. Ventricular rate of 6070 beats right eye. Intervals 242 ms. QRS duration is 148 ms. QT QTc is 506/546 ms. <Rina Marquis - Last Filed: 12/26/19 21:52> Medical Decision Making - Lab Data Result diagrams: 12/26/19 20:20 12/26/19 20:20 - Radiology Data Radiology results: report reviewed <Rina Marquis - Last Filed: 12/26/19 21:52> - Lab Data Result diagrams: 12/27/19 01:25 12/27/19 02:41 <Ayaz Goldman - Last Filed: 12/27/19 06:01> - Medical Decision Making 79-year-old male presents emergency department today with chief complaint of abnormal lab values blood work drawn at the [facility] and also complains of shortness of breath worsening starting today. While in emergency Department Patient prese nted mild discomfort but is 99% on room room air oxygenation. Lab work was reviewed. Elevated white blood cell count of 23,000 with a left shift of 21. Blood culture was obtained. Patient's labs also show evidence of elevated potassium of 6.7 with evidence of acute renal failure with a BUN of 197 creatinine of 9.26. Patient's troponin is elevated 0.088. This is likely reflective from acute renal failure. Patient was given hyperkalemia protocol of bicarb, calcium gluconate, insulin and deep 50 as well as Sleep. He also has a elevated BNP at 24,400. Patient's code the test is negative. Chest x-ray shows evidence of developing pneumonia pneumonia versus CHF. With this Patient was started on Rocephin and azithromycin. He was also given 500 mL initial bolus. With evidence of CHF and renal failure, and pneumonia Patient will be admitted at this time. Case was discussed with [facility] hospitalist. We'll consult nephrology. Patient also has an elevated d-dimer is 8.8. I cannot receive computed tomography scan at this time due to renal failure. We'll schedule for a V/Q. The meantime Patient was placed on heparin. (Rina Marquis) Patient is seen by the physician judicial assistant and by Dr. Riley. I was informed prior to the patient going to the floor that the blood gas had abnormalities. Given this I discussed case with Dr. Jacob, covering for pulmonology tonight. (Ayaz Goldman) - Lab Data Lab Results 12/26/19 12/26/19 12/26/19 Range/Units 20:12 20:20 20:20 WBC 23.2 H (3.8-10.6) k/uL RBC 4.58 (4.30-5.90) m/uL Hgb 12.3 L (13.0-17.5) gm/dL Hct 37.6 L (39.0-53.0) % MCV 82.0 D (80.0-100.0) fL MCH 26.8 (25.0-35.0) pg MCHC 32.7 (31.0-37.0) g/dL RDW 14.7 (11.5-15.5) % Plt Count 182 (150-450) k/uL Neutrophils % 95 % Lymphocytes % 1 % Monocytes % 4 % Eosinophils % 0 % Basophils % 0 % Neutrophils # 21.9 H (1.3-7.7) k/uL Lymphocytes # 0.2 L (1.0-4.8) k/uL Monocytes # 0.8 (0-1.0) k/uL Eosinophils # 0.1 (0-0.7) k/uL Basophils # 0.0 (0-0.2) k/uL PT 10.6 (9.0-12.0) sec INR 1.0 (<1.2) APTT 27.4 (22.0-30.0) sec D-Dimer (<0.60) mg/L FEU Sodium (137-145) mmol/L Potassium (3.5-5.1) mmol/L Chloride (98-107) mmol/L Carbon Dioxide (22-30) mmol/L Anion Gap mmol/L BUN (9-20) mg/dL Creatinine (0.66-1.25) mg/dL Est GFR (CKD-EPI)AfAm (>60 ml/min/1.73 sqM) Est GFR (CKD-EPI)NonAf (>60 ml/min/1.73 sqM) Glucose (74-99) mg/dL Plasma Lactic Acid Gutierrez (0.7-2.0) mmol/L Calcium (8.4-10.2) mg/dL Magnesium (1.6-2.3) mg/dL Ferritin (22.0-322.0) ng/mL Total Bilirubin (0.2-1.3) mg/dL AST (17-59) U/L ALT (4-49) U/L Alkaline Phosphatase (38-126) U/L Lactate Dehydrogenase (313-618) U/L Troponin I (0.000-0.034) ng/mL C-Reactive Protein (<10.0) mg/L NT-Pro-B Natriuret Pep pg/mL Total Protein (6.3-8.2) g/dL Albumin (3.5-5.0) g/dL Procalcitonin (0.02-0.09) ng/mL Coronavirus (PCR) Not Detected (Not Detectd) 12/26/19 12/26/19 12/26/19 Range/Units 20:20 20:20 20:20 WBC (3.8-10.6) k/uL RBC (4.30-5.90) m/uL Hgb (13.0-17.5) gm/dL Hct (39.0-53.0) % MCV (80.0-100.0) fL MCH (25.0-35.0) pg MCHC (31.0-37.0) g/dL RDW (11.5-15.5) % Plt Count (150-450) k/uL Neutrophils % % Lymphocytes % % Monocytes % % Eosinophils % % Basophils % % Neutrophils # (1.3-7.7) k/uL Lymphocytes # (1.0-4.8) k/uL Monocytes # (0-1.0) k/uL Eosinophils # (0-0.7) k/uL Basophils # (0-0.2) k/uL PT (9.0-12.0) sec INR (<1.2) APTT (22.0-30.0) sec D-Dimer (<0.60) mg/L FEU Sodium 138 (137-145) mmol/L Potassium 6.7 H* (3.5-5.1) mmol/L Chloride 104 (98-107) mmol/L Carbon Dioxide 10 L (22-30) mmol/L Anion Gap 24 mmol/L BUN 197 H* (9-20) mg/dL Creatinine 9.26 H* (0.66-1.25) mg/dL Est GFR (CKD-EPI)AfAm 6 (>60 ml/min/1.73 sqM) Est GFR (CKD-EPI)NonAf 5 (>60 ml/min/1.73 sqM) Glucose 149 H (74-99) mg/dL Plasma Lactic Acid Gutierrez 1.2 (0.7-2.0) mmol/L Calcium 7.7 L (8.4-10.2) mg/dL Magnesium 2.5 H (1.6-2.3) mg/dL Ferritin (22.0-322.0) ng/mL Total Bilirubin 0.6 (0.2-1.3) mg/dL AST 22 (17-59) U/L ALT 30 (4-49) U/L Alkaline Phosphatase 288 H (38-126) U/L Lactate Dehydrogenase (313-618) U/L Troponin I 0.088 H* (0.000-0.034) ng/mL C-Reactive Protein (<10.0) mg/L NT-Pro-B Natriuret Pep pg/mL Total Protein 7.7 (6.3-8.2) g/dL Albumin 4.3 (3.5-5.0) g/dL Procalcitonin (0.02-0.09) ng/mL Coronavirus (PCR) (Not Detectd) 12/26/19 12/26/19 12/26/19 Range/Units 20:20 20:20 20:20 WBC (3.8-10.6) k/uL RBC (4.30-5.90) m/uL Hgb (13.0-17.5) gm/dL Hct (39.0-53.0) % MCV (80.0-100.0) fL MCH (25.0-35.0) pg MCHC (31.0-37.0) g/dL RDW (11.5-15.5) % Plt Count (150-450) k/uL Neutrophils % % Lymphocytes % % Monocytes % % Eosinophils % % Basophils % % Neutrophils # (1.3-7.7) k/uL Lymphocytes # (1.0-4.8) k/uL Monocytes # (0-1.0) k/uL Eosinophils # (0-0.7) k/uL Basophils # (0-0.2) k/uL PT (9.0-12.0) sec INR (<1.2) APTT (22.0-30.0) sec D-Dimer 8.87 H (<0.60) mg/L FEU Sodium (137-145) mmol/L Potassium (3.5-5.1) mmol/L Chloride (98-107) mmol/L Carbon Dioxide (22-30) mmol/L Anion Gap mmol/L BUN (9-20) mg/dL Creatinine (0.66-1.25) mg/dL Est GFR (CKD-EPI)AfAm (>60 ml/min/1.73 sqM) Est GFR (CKD-EPI)NonAf (>60 ml/min/1.73 sqM) Glucose (74-99) mg/dL Plasma Lactic Acid Gutierrez (0.7-2.0) mmol/L Calcium (8.4-10.2) mg/dL Magnesium (1.6-2.3) mg/dL Ferritin 648.0 H (22.0-322.0) ng/mL Total Bilirubin (0.2-1.3) mg/dL AST (17-59) U/L ALT (4-49) U/L Alkaline Phosphatase (38-126) U/L Lactate Dehydrogenase 625 H (313-618) U/L Troponin I (0.000-0.034) ng/mL C-Reactive Protein 40.2 H (<10.0) mg/L NT-Pro-B Natriuret Pep 69509 pg/mL Total Protein (6.3-8.2) g/dL Albumin (3.5-5.0) g/dL Procalcitonin (0.02-0.09) ng/mL Coronavirus (PCR) (Not Detectd) 12/26/19 Range/Units 20:20 WBC (3.8-10.6) k/uL RBC (4.30-5.90) m/uL Hgb (13.0-17.5) gm/dL Hct (39.0-53.0) % MCV (80.0-100.0) fL MCH (25.0-35.0) pg MCHC (31.0-37.0) g/dL RDW (11.5-15.5) % Plt Count (150-450) k/uL Neutrophils % % Lymphocytes % % Monocytes % % Eosinophils % % Basophils % % Neutrophils # (1.3-7.7) k/uL Lymphocytes # (1.0-4.8) k/uL Monocytes # (0-1.0) k/uL Eosinophils # (0-0.7) k/uL Basophils # (0-0.2) k/uL PT (9.0-12.0) sec INR (<1.2) APTT (22.0-30.0) sec D-Dimer (<0.60) mg/L FEU Sodium (137-145) mmol/L Potassium (3.5-5.1) mmol/L Chloride (98-107) mmol/L Carbon Dioxide (22-30) mmol/L Anion Gap mmol/L BUN (9-20) mg/dL Creatinine (0.66-1.25) mg/dL Est GFR (CKD-EPI)AfAm (>60 ml/min/1.73 sqM) Est GFR (CKD-EPI)NonAf (>60 ml/min/1.73 sqM) Glucose (74-99) mg/dL Plasma Lactic Acid Gutierrez (0.7-2.0) mmol/L Calcium (8.4-10.2) mg/dL Magnesium (1.6-2.3) mg/dL Ferritin (22.0-322.0) ng/mL Total Bilirubin (0.2-1.3) mg/dL AST (17-59) U/L ALT (4-49) U/L Alkaline Phosphatase (38-126) U/L Lactate Dehydrogenase (313-618) U/L Troponin I (0.000-0.034) ng/mL C-Reactive Protein (<10.0) mg/L NT-Pro-B Natriuret Pep pg/mL Total Protein (6.3-8.2) g/dL Albumin (3.5-5.0) g/dL Procalcitonin 0.51 H (0.02-0.09) ng/mL Coronavirus (PCR) (Not Detectd) - Radiology Data Chest x-ray findings may reflect pneumonia. Superimposed congestive failure difficult to exclude. Correlate clinically and progress studies are recommended. (Rina Marquis) Critical Care Time Critical Care Time: Yes Total Critical Care Time: 35 <Rina Marquis - Last Filed: 12/26/19 21:52> Disposition Is patient prescribed a controlled substance at d/c from ED?: No Time of Disposition: 21:59 <Rina Marquis - Last Filed: 12/26/19 21:52> <Ayaz Goldman - Last Filed: 12/27/19 06:01> Clinical Impression: Renal failure, CHF (congestive heart failure), Hyperkalemia, Pneumonia, Elevated d-dimer, Leukocytosis Disposition: ADMITTED IP TO THIS HOSP Condition: Stable
[2019-12-26 20:35] LABS: Basophils % (A) 0 %; Eosinophils # (A) 0.1 k/uL (0-0.7); Eosinophils % (A) 0 %; HCT 37.6 % (39.0-53.0); HGB 12.3 gm/dL (13.0-17.5); Lymphocytes # (A) 0.2 k/uL (1.0-4.8); Lymphocytes % (A) 1 %; MCH 26.8 pg (25.0-35.0); MCHC 32.7 g/dL (31.0-37.0); Mean Platelet Volume 7.6; Monocytes # (A) 0.8 k/uL (0-1.0); Monocytes % (A) 4 %; Neutrophils # (A) 21.9 k/uL (1.3-7.7); Neutrophils % (A) 95 %; Platelet Count 182 k/uL (150-450); RBC 4.58 m/uL (4.30-5.90); RDW 14.7 % (11.5-15.5); WBC 23.2 k/uL (3.8-10.6)
[2019-12-26 20:46] LABS: Partial Thromboplastin Time 27.4 sec (22.0-30.0); Prothrombin Time 10.6 sec (9.0-12.0)
[2019-12-26 20:47] LABS: Albumin 4.3 g/dL (3.5-5.0); Calcium 7.7 mg/dL (8.4-10.2); Magnesium 2.5 mg/dL (1.6-2.3); Total Bilirubin 0.6 mg/dL (0.2-1.3); Total Protein 7.7 g/dL (6.3-8.2)
--- NOTE | 2019-12-26 20:50 | XR ---
EXAMINATION TYPE: XR chest 2V DATE OF EXAM: 12/26/2019 COMPARISON: 11/04/2019 HISTORY: Shortness of breath TECHNIQUE: Frontal and lateral views of the chest are obtained. FINDINGS: Scattered senescent parenchymal changes noted. Increasing airspace consolidation right lower lobe may reflect an pneumonia. Bilateral small pleural effusions. Central pulmonary vasculature is engorged. Heart size is stable. Mediastinal structures are stable and grossly unremarkable. No evidence for hilar prominence. Degenerative changes dorsal spine. IMPRESSION: 1. Findings may reflect pneumonia. Superimposed congestive failure difficult to exclude. Correlate cl inically and progress studies are recommended.
[2019-12-26 21:04] LABS: Potassium 6.7 mmol/L (3.5-5.1)
[2019-12-26] MEDS ORDERED: cefTRIAXone IN SWFI 1,000 MG/10 ML SYRINGE IVP STA (21:05)
[2019-12-26] MEDS ORDERED: AZITHROMYCIN 500 MG in SODIUM CHLORIDE 0.9% 250 ML IVPB STA (21:05)
[2019-12-26] MEDS ORDERED: SODIUM POLYSTYRENE SULFONATE 15 GM/60 ML BOTTLE PO ONE (21:19)
[2019-12-26] MEDS ORDERED: DEXTROSE 50% SYRINGE 50 ML IVP ONE (21:19)
[2019-12-26] MEDS ORDERED: SODIUM BICARB 8.4% 50 ML SYR (1 MEQ/ML) IV ONE (21:19)
[2019-12-26] MEDS ORDERED: INSULIN REGULAR 100 UNIT/ML VIAL IV ONE (21:19)
[2019-12-26] MEDS ORDERED: ONDANSETRON 4 MG/2 ML VIAL IVP STA (21:31)
[2019-12-26 21:32] LABS: C Reactive Protein 40.2 mg/L (<10.0)
[2019-12-26] MEDS ORDERED: PANTOPRAZOLE 40 MG/10 ML VIAL IVP STA (21:32)
[2019-12-26] MEDS ORDERED: HEPARIN SODIUM,PORCINE 10,000 UNIT/ML 1 ML VIAL IV ONE (21:59)
[2019-12-26] MEDS ORDERED: HEPARIN SODIUM,PORCINE 5,000 UNIT/ML 1 ML VIAL IV PRN (21:59)
[2019-12-26] MEDS ORDERED: CALCIUM GLUCONATE 1 GM in SODIUM CHLORIDE 0.9% 100 ML IVPB ONE (22:00)
[2019-12-26] MEDS ORDERED: HEPARIN SOD,PORK IN 0.45% NACL 25,000 UNIT in 0.45% NACL 1 250ML.BAG IV SCH (22:00)
[2019-12-26] MEDS ORDERED: DEXTROSE 5% IN WATER 1,000 ML with SODIUM BICARB (1 MEQ/ML) 150 ML IV ONE (22:00)
[2019-12-26] MEDS: SODIUM CHLORIDE 0.9% 1,000 ML IV SCH (22:36)
[2019-12-26] MEDS: NITROGLYCERIN OINT 1 INCH/GM PACKET TOPICAL SCH (22:37)
[2019-12-26 23:08] LABS: ABG Oxygen Saturation 97.1 % (94-97); ABG PCO2 22 mmHg (35-45); ABG PO2 118 mmHg (83-108); ABG TCO2 8 mmol/L (19-24); Allen Test Performed? Yes
[2019-12-26 23:13] LABS: Glucose,Whole Blood 230 mg/dL (75-99)
[2019-12-26 23:17] LABS: ABG HCO3 7 mmol/L (21-25); ABG PH 7.13 (7.35-7.45)
[2019-12-26] MEDS: DEXTROSE 5% IN WATER 1,000 ML with SODIUM BICARB (1 MEQ/ML) 150 ML IV SCH (23:31)
[2019-12-27] MEDS ORDERED: IPRATROPIUM-ALBUTEROL 3 ML NEB INHALATION PRN (00:59)
[2019-12-27 01:08] LABS: Appearance,Urine Clear (Clear); Bilirubin,Urine Negative (Negative); Blood,Urine Trace (Negative); Color,Urine Yellow; Glucose,Urine (UA) Trace (Negative); Ketones,Urine Negative (Negative); Leukocyte Esterase,Urine Negative (Negative); Nitrite,Urine Negative (Negative); Protein,Urine 2+ (Negative); RBC,Urine 3 /hpf (0-5); Specific Gravity,Urine 1.012 (1.001-1.035); Urobilinogen,Urine <2.0 mg/dL (<2.0); WBC,Urine 1 /hpf (0-5)
[2019-12-27 01:30] LABS: Glucose,Whole Blood 193 mg/dL (75-99)
[2019-12-27 02:03] LABS: Basophils % (A) 0 %; Eosinophils % (A) 0 %; HCT 32.6 % (39.0-53.0); HGB 10.6 gm/dL (13.0-17.5); Lymphocytes # (A) 0.2 k/uL (1.0-4.8); Lymphocytes % (A) 1 %; MCH 27.3 pg (25.0-35.0); MCHC 32.4 g/dL (31.0-37.0); MCV 84.4 fL (80.0-100.0); Mean Platelet Volume 7.7; Monocytes # (A) 0.7 k/uL (0-1.0); Monocytes % (A) 4 %; Neutrophils # (A) 17.6 k/uL (1.3-7.7); Neutrophils % (A) 95 %; Platelet Count 173 k/uL (150-450); RBC 3.87 m/uL (4.30-5.90); RDW 14.7 % (11.5-15.5); WBC 18.7 k/uL (3.8-10.6)
[2019-12-27 03:00] LABS: Albumin 3.6 g/dL (3.5-5.0); Calcium 7.1 mg/dL (8.4-10.2); Potassium 5.6 mmol/L (3.5-5.1); Total Bilirubin 0.4 mg/dL (0.2-1.3); Total Protein 6.7 g/dL (6.3-8.2)
[2019-12-27 06:56] LABS: Glucose,Whole Blood 234 mg/dL (75-99)
[2019-12-27] MEDS: INSULIN ASPART (NovoLOG) 100 UNIT/ML VIAL SQ SCH ×4 (07:01→21:49)
[2019-12-27] MEDS: ASCORBIC ACID 500 MG TAB PO SCH ×2 (07:07→17:33)
--- NOTE | 2019-12-27 07:33 | XR ---
EXAMINATION TYPE: XR chest 1V DATE OF EXAM: 12/27/2019 COMPARISON: 12/26/2019 HISTORY: Shortness of breath with exertion TECHNIQUE: Single frontal view of the chest is obtained. FINDINGS: Confluent right lower lobe airspace disease is similar to 12/26/2019. More linear retrocard iac airspace disease likely represents atelectasis. Very trace pleural effusions blunt the costophren ic angles. Enlarged cardiomediastinal silhouette with post CABG change. Unchanged degenerative change s of the spine and shoulders. IMPRESSION: Stable exam from 12/26/2019 with right basilar airspace disease likely on the basis of pn eumonia and trace bilateral pleural effusions.
[2019-12-27 07:52] LABS: HCT 29.4 % (39.0-53.0); HGB 9.9 gm/dL (13.0-17.5); MCH 27.2 pg (25.0-35.0); MCHC 33.7 g/dL (31.0-37.0); MCV 80.6 fL (80.0-100.0); Mean Platelet Volume 7.8; Platelet Count 151 k/uL (150-450); RBC 3.65 m/uL (4.30-5.90); RDW 14.6 % (11.5-15.5); WBC 14.6 k/uL (3.8-10.6)
--- NOTE | 2019-12-27 07:55 | CONS ---
CONSULTATION Mr. Brice is a 79-year-old male who is followed at the [facility], history of coronary artery disease, status post coronary artery bypass grafting in November of 2018 where he received a GONZALEZ to the LAD, saphenous vein graft to the diagonal branch, obtuse marginal branch and the left PDA who has a history of atrial fibrillation, atrial flutter, and mildly impaired left ventricular systolic function, who presented after being found to have an elevated potassium. The patient has been complaining of progressive dyspnea for the last week. He has no significant change in his peripheral edema. He has no dizziness or palpitation, but he is getting more short of breath. He had no chest pain. No clear PND nor orthopnea. He had lab data done as an outpatient, was found to have significant hyperkalemia and was asked to come to the emergency room. On presentation, he was noted to have worsening of his renal function and he was in atrial fibrillation with controlled ventricular response. Hemodynamically, he was stable. He is feeling stable this morning, although continued to be fatigued and short of breath. He has some nausea, but no significant vomiting. He was in the hospital in October of this year and underwent an echocardiogram that showed an ejection fraction at that time of 45% to 50%. with evidence of mild aortic stenosis and moderate mitral regurgitation. His coronary risk factors are remarkable for history of hypertension, hyperlipidemia, and diabetes. He is a nonsmoker. MEDICATIONS: His medications include hydralazine 25 mg twice a day, Flomax, sodium bicarb, Crestor 40 mg daily, metoprolol tartrate 25 mg twice a day, Zaroxolyn 2.5 mg q.48 hours, Lasix 40 mg twice a day, aspirin once a day, Eliquis 5 mg twice a day, vitamin C, Ventolin and Tylenol. REVIEW OF SYSTEMS: RESPIRATORY SYSTEM: He had dyspnea on exertion. No recent cough or wheezing. GI SYSTEM: He has some nausea. No GI bleeding. SYSTEM: No dysuria or hematuria. He has history of chronic kidney disease. NERVOUS SYSTEM: Questionable history of stroke. PHYSICAL EXAMINATION: He is a 79-year-old male, mildly dyspneic. Blood pressure 118/60 with the heart rate in 70s, afebrile. HEAD: Normocephalic. EYES: Sclerae nonicteric. NECK: No bruit. LUNGS: With crackles at the bases, more noted on the right side. HEART: Irregular, irregular. S1, S2. No S3 with systolic murmur, ejection type heard left upper sternal border and a holosystolic murmur in the apex. ABDOMEN: Soft, nontender. Positive bowel sounds. No organomegaly. EXTREMITIES: No significant edema. LAB DATA: On presentation, his white blood cells are 23,000, hemoglobin 12.3. His D-dimer was 8.8. Potassium 6.7. BUN and creatinine 197 and 9.26. His troponin 0.[address] [place] [address]. His coronavirus PCR was not detected. His LDH was 625 and alkaline phosphatase was 288. His procalcitonin was 0.51. Later on Troponin 0.111. His BUN and creatinine 192 and 8.65. His potassium is 5.6. His hemoglobin is 10.6. He is heme positive. His EKG revealed an atrial fibrillation with right bundle branch block and left axis deviation evidence to suggest inferior myocardial infarction. His chest x-ray shows a right infiltrate at the base with evidence of congestion and small effusion on the left side. IMPRESSION: 1. Progressive dyspnea probably combination of CHF and pneumonia. He is coronavirus negative so far, although he has an elevation of his LDH. 2. Worsening renal function with hyperkalemia with acute on chronic renal function dysfunction. 3. History of coronary artery disease, status post coronary artery bypass grafting with no clear evidence of acute coronary syndrome. The mild elevation of troponin is related to the respiratory status and the renal failure. 4. Congestive heart failure with mildly impaired left ventricular systolic function by echocardiography performed in October. 5. Atrial fibrillation, chronic, persistent with controlled ventricular response. Patient was anticoagulated, but the anticoagulation is on hold now because of the positive heme. Patient had clipping of the left atrial appendage. 6. History of hypertension. 7. Hyperlipidemia. 8. Diabetes mellitus. RECOMMENDATION: From the cardiac standpoint, will continue on diuresis following his renal function. Continue to hold his anticoagulation at this time. He will be followed by the Nephrology. I am concerned about his x-ray and that will be followed. He would require antibiotics and depending on his progress, further recommendation will be made. Thank you for this consult. We will follow with you. MMODL / IJN: [id number] /
[2019-12-27] MEDS ORDERED: SODIUM CHLORIDE 0.9% 1,000 ML IV ONE ×2 (07:59→12:15)
[2019-12-27] MEDS ORDERED: FUROSEMIDE 10 MG/ML 4 ML VIAL IV SCH (08:00)
[2019-12-27] MEDS ORDERED: FUROSEMIDE 40 MG TAB PO SCH (08:00)
[2019-12-27 08:02] LABS: Calcium 6.7 mg/dL (8.4-10.2); Potassium 5.4 mmol/L (3.5-5.1)
[2019-12-27] MEDS: FERROUS SULFATE 325 MG TAB PO SCH ×2 (08:42→21:52)
[2019-12-27] MEDS: METOPROLOL TARTRATE 25 MG TAB PO SCH ×2 (08:44→21:51)
[2019-12-27] MEDS: NITROGLYCERIN OINT 1 INCH/GM PACKET TOPICAL SCH ×4 (08:44→21:52)
[2019-12-27] MEDS: hydrALAZINE HCL 25 MG TAB PO SCH ×2 (08:44→21:52)
[2019-12-27] MEDS: SODIUM BICARBONATE TAB 650 MG TAB PO SCH ×2 (08:45→21:52)
[2019-12-27] MEDS: FINASTERIDE 5 MG TAB PO SCH (08:45)
[2019-12-27] MEDS: AMMONIUM LACTATE 12% CREAM 140 GM TUBE TOPICAL SCH ×2 (08:46→21:55)
[2019-12-27] MEDS ORDERED: Rosuvastatin Calcium [Crestor] 40 MG PO SCH (09:00)
[2019-12-27] MEDS ORDERED: METOLAZONE 2.5 MG TAB PO SCH (09:00)
[2019-12-27] MEDS: HEPARIN SODIUM,PORCINE 5,000 UNIT/ML 1 ML VIAL SQ SCH ×2 (10:36→21:52)
[2019-12-27] MEDS: PANTOPRAZOLE 40 MG/10 ML VIAL IVP SCH (10:36)
[2019-12-27] MEDS: TAMSULOSIN 0.4 MG CAP.ER.24H PO SCH ×2 (11:31→21:52)
[2019-12-27] MEDS: PRAVASTATIN SODIUM 80 MG TAB PO SCH (11:32)
--- NOTE | 2019-12-27 11:32 | P.HPIM ---
History of Present Illness This is a pleasant 79 years old male with past medical history of systolic congestive heart failure, atrial fibrillation, was on Eliquis, hypertension, hyperlipidemia, chronic kidney disease stage III, iron deficiency anemia, coron samantha artery disease status post CABG in 12/2018 , diabetes mellitus, GERD, osteoarthritis He follows up from the [facility], redrawer Dr. Strange churner Dr. Epps Presents because of dyspnea for about one week and feeling cold walking in the cold weather going to his doctor appointment, his dyspnea gradually got worse associated with little cough and that'll clear phlegm. No chest pain, no abdominal pain, no nausea vomiting. No diarrhea Patient denies smoking, alcohol or illicit drugs On admission patient is afebrile, saturating 96% on room air, breathing rate at 9-14 BPM, blood pressure 118/63. Labs showing leukocytosis of 23.2-14.6k, with base of the Kelly is within normal limits. Hemoglobin is 9.9 with baseline around 9-12. PTT more than 200, sodium 137, potassium 5.4, creatinine 8.3, with baseline 1.7-2.4. Potassium on presentation was 6.7, coming down to 5.4, glucose 193-to 34, liver enzymes and bilirubin not elevated, elevated troponin at 0.08, 0.11 and 0.25, baseline creatinine is elevated at 0.04-0.09. Occult blood stool was positive Chest x-ray: Right lower lobe airway disease, possible CHF. EKG: Sinus rhythm at 70 bpm with right bundle-branch block, QTC 546 Principal Automation Engineer already evaluated the patient. They recommended to continue with diuresis and follow-up renal function and chest x-ray. On admission he was started on Rocephin and Zithromax and sodium bicarb at 75 mL/h on presentation his ABG showing pH of 7.1, pCO2 of 22 and pO2 of 118 so patient was admitted to the ICU for further monitoring Today patient got 1 L of normal saline for possible sepsis although there was some suspicion of fluid in the chest x-ray by churner. He is not on IV fluids currently His Eliquis was held because was positive FOBT, however we will start him on subcutaneous heparin for DVT prophylaxis given his hemoglobin low at 9.9, but we will keep monitor his hemoglobin closely. Patient was on insulin long-acting 10 units daily, withheld her that and continue with insulin sliding scale, as his sugar was controlled this morning Review of Systems CONSTITUTIONAL: No fever, no malaise, no fatigue. HEENT: No recent visual problems or hearing problems. Denied any sore throat. CARDIOVASCULAR: No orthopnea, PND, no palpitations, no syncope. PULMONARY: no hemoptysis. GASTROINTESTINAL: No diarrhea, no nausea, no vomiting, no abdominal pain. Normoactive bowel sounds. NEUROLOGICAL: No headaches, no weakness, no numbness. HEMATOLOGICAL: Denies any bleeding or petechiae. GENITOURINARY: Denies any burning micturition, frequency, or urgency. MUSCULOSKELETAL/RHEUMATOLOGICAL: Denies any joint pain, swelling, or any muscle pain. ENDOCRINE: Denies any polyuria or polydipsia. Past Medical History Past Medical History: Atrial Fibrillation, Coronary Artery Disease (CAD), Heart Failure, Diabetes Mellitus, GERD/Reflux, Hyperlipidemia, Hypertension, Myocardial Infarction ([place]), Osteoarthritis (OA), Renal Disease, Vascular Disorder Additional Past Medical History / Comment(s): Pt recently admitted to [facility] on 01/16/19 with bilateral lower extremity cellulitis with multiple ulcers-positive for klebsiella/pseudomonas, uncontrolled diabetes, pleural effusion with R thoracentesis, exacerbation CHF. Other Hx: Paroxysmal Aflutter, PAD, chronic bilateral venous stasis dermatitis, lower extremety infection/blisters, chronic CHF, IDDM type II, BPH, post CABG urinary retention, CRD stage III, Last Myocardial Infarction Date:: 12/08/18 History of Any Multi-Drug Resistant Organisms: None Reported Past Surgical History: Appendectomy, Coronary Bypass/CABG, Heart Catheterization With Stent Additional Past Surgical History / Comment(s): 12/08/18 CABG 4 vessels, PCI with stents 2004, cardioversion for Aflutter, bilateral cataract removals/lens implants. Past Anesthesia/Blood Transfusion Reactions: No Reported Reaction Additional Past Anesthesia/Blood Transfusion Reaction / Comment(s): Pt received blood with CABG Date of Last Stent Placement:: 2004 Past Psychological History: No Psychological Hx Reported Additional Psychological History / Comment(s): Single. No children. No pets. Remote tobacco use. No international travel since his experience. 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 He quit drinking 1974 Past Drug Use History: None Reported - Past Family History Mother Family Medical History: Myocardial Infarction ([place]) Additional Family Medical History / Comment(s): Mother had a VA at the age of 64 Father Additional Family Medical History / Comment(s): Father had mental health issues after a "bad" truck accident. Medications and Allergies Home Medications Medication Instructions Recorded Confirmed Type Ascorbic Acid [Vitamin C] 500 mg PO BID-W/MEALS tab 12/20/18 12/26/19 Rx Melatonin 3 mg PO HS 01/13/19 12/26/19 History Rosuvastatin Calcium [Crestor] 40 mg PO DAILY 01/13/19 12/26/19 History Tamsulosin [Flomax] 0.4 mg PO BID 01/13/19 12/26/19 History Aspirin EC [Ecotrin Low Dose] 81 mg PO HS 01/16/19 12/26/19 History Acetaminophen Tab [Tylenol] 500 mg PO Q6HR PRN tab 01/25/19 12/26/19 Rx Apixaban [Eliquis] 5 mg PO BID tab 01/25/19 12/26/19 Rx Metoprolol Tartrate [Lopressor] 25 mg PO BID 02/08/19 12/26/19 History Ferrous Sulfate [Iron (65 MG 325 mg PO BID 07/27/19 12/26/19 History Elemental)] Ammonium Lactate Cream [Lac-Hydrin 1 applic TOPICAL BID 10/30/19 12/26/19 His tory 12% Cream] Bacitracin Oint 1 applic TOPICAL BID PRN 10/30/19 12/26/19 History Finasteride [Proscar] 5 mg PO DAILY 10/30/19 12/26/19 History Furosemide [Lasix] 40 mg PO BID@0800,1500 10/30/19 12/26/19 History Insulin Aspart [NovoLOG] See Protocol SQ ACHS 10/30/19 12/26/19 History Ipratropium-Albuterol Nebulize 3 ml INHALATION RT-Q4H PRN 10/30/19 12/26/19 History [Duoneb 0.5 mg-3 mg/3 ml Soln] Metolazone [Zaroxolyn] 2.5 mg PO Q48H 10/30/19 12/26/19 History Psyllium Husk 100% [Metamucil 6 gm PO DAILY 10/30/19 12/26/19 History Packet] Sodium Bicarbonate Tab 650 mg PO BID 10/30/19 12/26/19 History hydrALAZINE HCL 25 mg PO BID 10/30/19 12/26/19 History Insulin Glargine,Hum.rec.anlog 10 unit SQ DAILY #1 pen 11/05/19 12/26/19 Rx [Lantus Solostar] Albuterol Sulfate [Ventolin HFA] 2 puff INHALATION RT-Q4H PRN 12/26/19 12/26/19 History Allergies Allergy/AdvReac Type Severity Reaction Status Date / Time atorvastatin [From Lipitor] AdvReac MUSCLE/JOINT Verified 12/26/19 22:49 PAIN Physical Exam Vitals: Vital Signs Temp Pulse Pulse Resp BP Pulse Ox 12/27/19 08:00 97.6 F 80 10 L 113/54 97 12/27/19 07:30 92 13 133/94 96 12/27/19 07:00 81 12 130/82 95 12/27/19 06:30 75 14 117/56 96 12/27/19 06:00 73 14 118/63 96 12/27/19 05:30 79 10 L 130/62 97 12/27/19 05:00 65 12 130/62 96 12/27/19 04:30 71 9 L 96 12/27/19 04:00 97.5 F L 70 14 123/62 95 12/27/19 03:35 78 14 12/27/19 03:30 73 11 L 96 12/27/19 03:00 63 9 L 123/74 97 12/27/19 02:30 77 12 97 12/27/19 02:00 75 13 97 12/27/19 01:30 97.8 F 64 16 116/62 96 12/27/19 01:26 20 12/27/19 01:20 76 16 12/27/19 00:53 76 17 131/62 99 12/27/19 00:00 97.8 F 80 17 123/52 97 12/26/19 23:46 82 17 94/64 99 12/26/19 23:29 97.3 F L 76 20 133/65 98 12/26/19 23:00 97.2 F L 73 20 123/63 98 12/26/19 22:30 97.9 F 65 20 107/53 100 12/26/19 22:00 68 24 104/57 92 L 12/26/19 21:24 69 20 109/46 97 12/26/19 20:35 76 18 132/52 98 12/26/19 19:24 97.2 F L 75 22 122/68 97 Intake and Output 12/26/19 12/27/19 12/27/19 22:59 06:59 14:59 Intake Total 375 150 Output Total 465 40 Balance -90 110 Intake: IV 375 150 Dextrose 5% in Water 1, 375 150 000 ml @ 75 mls/hr IV . [id number] PEARL with Sodium Bicarb (1 Meq/ml) 150 ml Rx#:[id number] Output: Urine 465 40 straight catheter 200 Other: Voiding Method Indwelling Catheter Weight 75.6 kg GENERAL: The patient is alert and oriented x3, not in any acute distress. Well developed, well nourished. HEENT: Pupils are round and equally reacting to light. EOMI. No scleral icterus. No conjunctival pallor. Normocephalic, atraumatic. No pharyngeal erythema. No thyromegaly. CARDIOVASCULAR: S1 and S2 present. No murmurs, rubs, or gallops. PULMONARY: Chest is clear to auscultation, no wheezing or crackles. ABDOMEN: Soft, nontender, nondistended, normoactive bowel sounds. No palpable organomegaly. MUSCULOSKELETAL: No joint swelling or deformity. EXTREMITIES: No cyanosis, clubbing, or pedal edema. NEUROLOGICAL: Gross neurological examination did not reveal any focal deficits. SKIN: No rashes. No petechiae Results CBC & Chem 7: 12/27/19 07:28 12/27/19 07:28 Labs: Abnormal Lab Results - Last 24 Hours (Table) 12/26/19 12/26/19 12/26/19 Range/Units 20:20 20:20 20:20 WBC 23.2 H (3.8-10.6) k/uL RBC (4.30-5.90) m/uL Hgb 12.3 L (13.0-17.5) gm/dL Hct 37.6 L (39.0-53.0) % Neutrophils # 21.9 H (1.3-7.7) k/uL Lymphocytes # 0.2 L (1.0-4.8) k/uL APTT (22.0-30.0) sec D-Dimer (<0.60) mg/L FEU ABG pH (7.35-7.45) ABG pCO2 (35-45) mmHg ABG pO2 (83-108) mmHg ABG HCO3 (21-25) mmol/L ABG Total CO2 (19-24) mmol/L ABG O2 Saturation (94-97) % Potassium 6.7 H* (3.5-5.1) mmol/L Carbon Dioxide 10 L (22-30) mmol/L BUN 197 H* (9-20) mg/dL Creatinine 9.26 H* (0.66-1.25) mg/dL Glucose 149 H (74-99) mg/dL POC Glucose (mg/dL) (75-99) mg/dL Calcium 7.7 L (8.4-10.2) mg/dL Magnesium 2.5 H (1.6-2.3) mg/dL Ferritin (22.0-322.0) ng/mL Alkaline Phosphatase 288 H (38-126) U/L Lactate Dehydrogenase (313-618) U/L Troponin I 0.088 H* (0.000-0.034) ng/mL C-Reactive Protein (<10.0) mg/L Procalcitonin (0.02-0.09) ng/mL Urine Protein (Negative) Urine Glucose (UA) (Negative) Urine Blood (Negative) 12/26/19 12/26/19 12/26/19 Range/Units 20:20 20:20 20:20 WBC (3.8-10.6) k/uL RBC (4.30-5.90) m/uL Hgb (13.0-17.5) gm/dL Hct (39.0-53.0) % Neutrophils # (1.3-7.7) k/uL Lymphocytes # (1.0-4.8) k/uL APTT (22.0-30.0) sec D-Dimer 8.87 H (<0.60) mg/L FEU ABG pH (7.35-7.45) ABG pCO2 (35-45) mmHg ABG pO2 (83-108) mmHg ABG HCO3 (21-25) mmol/L ABG Total CO2 (19-24) mmol/L ABG O2 Saturation (94-97) % Potassium (3.5-5.1) mmol/L Carbon Dioxide (22-30) mmol/L BUN (9-20) mg/dL Creatinine (0.66-1.25) mg/dL Glucose (74-99) mg/dL POC Glucose (mg/dL) (75-99) mg/dL Calcium (8.4-10.2) mg/dL Magnesium (1.6-2.3) mg/dL Ferritin 648.0 H (22.0-322.0) ng/mL Alkaline Phosphatase (38-126) U/L Lactate Dehydrogenase 625 H (313-618) U/L Troponin I (0.000-0.034) ng/mL C-Reactive Protein 40.2 H (<10.0) mg/L Procalcitonin 0.51 H (0.02-0.09) ng/mL Urine Protein (Negative) Urine Glucose (UA) (Negative) Urine Blood (Negative) 12/26/19 12/26/19 12/27/19 Range/Units 23:02 23:10 00:40 WBC (3.8-10.6) k/uL RBC (4.30-5.90) m/uL Hgb (13.0-17.5) gm/dL Hct (39.0-53.0) % Neutrophils # (1.3-7.7) k/uL Lymphocytes # (1.0-4.8) k/uL APTT (22.0-30.0) sec D-Dimer (<0.60) mg/L FEU ABG pH 7.13 L* (7.35-7.45) ABG pCO2 22 L (35-45) mmHg ABG pO2 118 H (83-108) mmHg ABG HCO3 7 L* (21-25) mmol/L ABG Total CO2 8 L (19-24) mmol/L ABG O2 Saturation 97.1 H (94-97) % Potassium (3.5-5.1) mmol/L Carbon Dioxide (22-30) mmol/L BUN (9-20) mg/dL Creatinine (0.66-1.25) mg/dL Glucose (74-99) mg/dL POC Glucose (mg/dL) 230 H (75-99) mg/dL Calcium (8.4-10.2) mg/dL Magnesium (1.6-2.3) mg/dL Ferritin (22.0-322.0) ng/mL Alkaline Phosphatase (38-126) U/L Lactate Dehydrogenase (313-618) U/L Troponin I (0.000-0.034) ng/mL C-Reactive Protein (<10.0) mg/L Procalcitonin (0.02-0.09) ng/mL Urine Protein 2+ H (Negative) Urine Glucose (UA) Trace H (Negative) Urine Blood Trace H (Negative) 12/27/19 12/27/19 12/27/19 Range/Units 01:25 01:25 01:25 WBC 18.7 H (3.8-10.6) k/uL RBC 3.87 L (4.30-5.90) m/uL Hgb 10.6 L (13.0-17.5) gm/dL Hct 32.6 L (39.0-53.0) % Neutrophils # 17.6 H (1.3-7.7) k/uL Lymphocytes # 0.2 L (1.0-4.8) k/uL APTT >200.0 H* (22.0-30.0) sec D-Dimer (<0.60) mg/L FEU ABG pH (7.35-7.45) ABG pCO2 (35-45) mmHg ABG pO2 (83-108) mmHg ABG HCO3 (21-25) mmol/L ABG Total CO2 (19-24) mmol/L ABG O2 Saturation (94-97) % Potassium (3.5-5.1) mmol/L Carbon Dioxide (22-30) mmol/L BUN (9-20) mg/dL Creatinine (0.66-1.25) mg/dL Glucose (74-99) mg/dL POC Glucose (mg/dL) (75-99) mg/dL Calcium (8.4-10.2) mg/dL Magnesium (1.6-2.3) mg/dL Ferritin (22.0-322.0) ng/mL Alkaline Phosphatase (38-126) U/L Lactate Dehydrogenase (313-618) U/L Troponin I 0.111 H* (0.000-0.034) ng/mL C-Reactive Protein (<10.0) mg/L Procalcitonin (0.02-0.09) ng/mL Urine Protein (Negative) Urine Glucose (UA) (Negative) Urine Blood (Negative) 12/27/19 12/27/19 12/27/19 Range/Units 01:28 02:41 06:54 WBC (3.8-10.6) k/uL RBC (4.30-5.90) m/uL Hgb (13.0-17.5) gm/dL Hct (39.0-53.0) % Neutrophils # (1.3-7.7) k/uL Lymphocytes # (1.0-4.8) k/uL APTT (22.0-30.0) sec D-Dimer (<0.60) mg/L FEU ABG pH (7.35-7.45) ABG pCO2 (35-45) mmHg ABG pO2 (83-108) mmHg ABG HCO3 (21-25) mmol/L ABG Total CO2 (19-24) mmol/L ABG O2 Saturation (94-97) % Potassium 5.6 H (3.5-5.1) mmol/L Carbon Dioxide 11 L (22-30) mmol/L BUN 192 H* (9-20) mg/dL Creatinine 8.65 H* (0.66-1.25) mg/dL Glucose 195 H (74-99) mg/dL POC Glucose (mg/dL) 193 H 234 H (75-99) mg/dL Calcium 7.1 L (8.4-10.2) mg/dL Magnesium (1.6-2.3) mg/dL Ferritin (22.0-322.0) ng/mL Alkaline Phosphatase 237 H (38-126) U/L Lactate Dehydrogenase (313-618) U/L Troponin I (0.000-0.034) ng/mL C-Reactive Protein (<10.0) mg/L Procalcitonin (0.02-0.09) ng/mL Urine Protein (Negative) Urine Glucose (UA) (Negative) Urine Blood (Negative) 12/27/19 12/27/19 12/27/19 Range/Units 07:28 07:28 07:28 WBC 14.6 H (3.8-10.6) k/uL RBC 3.65 L (4.30-5.90) m/uL Hgb 9.9 L (13.0-17.5) gm/dL Hct 29.4 L (39.0-53.0) % Neutrophils # (1.3-7.7) k/uL Lymphocytes # (1.0-4.8) k/uL APTT (22.0-30.0) sec D-Dimer (<0.60) mg/L FEU ABG pH (7.35-7.45) ABG pCO2 (35-45) mmHg ABG pO2 (83-108) mmHg ABG HCO3 (21-25) mmol/L ABG Total CO2 (19-24) mmol/L ABG O2 Saturation (94-97) % Potassium 5.4 H (3.5-5.1) mmol/L Carbon Dioxide 11 L (22-30) mmol/L BUN 198 H* (9-20) mg/dL Creatinine 8.39 H* (0.66-1.25) mg/dL Glucose 210 H (74-99) mg/dL POC Glucose (mg/dL) (75-99) mg/dL Calcium 6.7 L (8.4-10.2) mg/dL Magnesium (1.6-2.3) mg/dL Ferritin (22.0-322.0) ng/mL Alkaline Phosphatase (38-126) U/L Lactate Dehydrogenase (313-618) U/L Troponin I 0.259 H* (0.000-0.034) ng/mL C-Reactive Protein (<10.0) mg/L Procalcitonin (0.02-0.09) ng/mL Urine Protein (Negative) Urine Glucose (UA) (Negative) Urine Blood (Negative) Thrombosis Risk Factor Assmnt - Choose All That Apply Each Factor Represents 1 point: Heart failure (<1month), Medical pt on bed rest Other Risk Factors: Yes Each Risk Factor Represents 3 Points: Age 75 years or older Other congenital or acquired thrombophilia - If yes, enter type in comment: No Thrombosis Risk Factor Assessment Total Risk Factor Score: 5 Thrombosis Risk Factor Assessment Level: High Risk Assessment and Plan Assessment: Right lower lobe pneumonia Acute kidney injury on chronic kidney disease with hyperkalemia Elevated troponin worsening from chronically elevated troponin Positive occult blood in stool acute on chronic Chronic systolic congestive heart failure Acute metabolic acidosis Atrial fibrillation, recommend control. Was on Eliquis on admission Diabetes mellitus Hypertension Hyperlipidemia Chronic kidney disease stage III Coronary artery disease status post CABG in 12/2018 Gastroesophageal reflux disease Osteoarthritis Iron deficiency anemia Plan: this is a pleasant 79 years old male who presents with multiple problems including pneumonia, acute kidney injury, elevated troponin and heart failure. continue with antibiotics, follow-up culture. Principal Automation Engineer recommended to hold anticoagulation. Several consults on the case already been called including cardiology, pulmonary and nephrology. Hold insulin and continue with insulin sliding scale Labs and medication were reviewed.. Continue same treatment. Continue with symptomatic treatment. Resume home medication. Monitor lytes and vitals. DVT and GI prophylaxis. Further recommendations of the clinical course of the patient DVT prophylaxis: Subcutaneous heparin GI Prophylaxis: Ppi Prognosis is guarded
[2019-12-27 11:54] LABS: Glucose,Whole Blood 155 mg/dL (75-99)
[2019-12-27] MEDS ORDERED: FUROSEMIDE 10 MG/ML 10 ML VIAL IV ONE (13:00)
--- NOTE | 2019-12-27 13:21 | P.CNPUL ---
History of Present Illness Consult date: 12/27/19 Reason for consult: dyspnea History of present illness: 79-year-old male patient who came into the emergency department complaining of worsening shortness of breath. He denied having any significant cough or sputum production. Denied having any sick contacts including exposure to COVID 19. He was however getting more short of breath and addition to that he was coughing out some thick sputum. Denied having any chest pain. No nausea. No vomiting. No abdominal pain. He has multiple medical problems and comorbidities in summary, the patient has history of chronic kidney disease stage 3-4, coronary artery disease with previous bypass surgery that was done in December 2018, diabetes mellitus with history of diabetic nephropathy, hypertension, hyperlipidemia, chronic atrial fibrillation and chronic congestion heart failure. His workup in emergency department revealed the following He had a chest x-ray that showed better pleural effusion in addition to a right lower lobe consolidation. EKG showed no acute ST segment elevation or depression. There was a right bundle branch block pattern with a sinus rhythm His blood work showed an acute on top of chronic kidney injury. His creatinine was up to 8.3 with a potassium level of 5.4 in the sodium level [id number]. Note that his baseline creatinine was as high as 2.4. He did have some mild troponin elevation with levels being at 0.08, 0.11 and 0.25 respectively His occult stool was also positive His blood gases showed metabolic acidosis with a pH of 7.11 and a pCO2 of 22 and pO2 of 118 The patient was seen in intensive care unit. Despite his metabolic acidosis, the patient was awake and alert and following commands and answering course appropriately. Clinically , he was quite dry including grasses mucous membranes without any significant edema in lower extremities bilaterally. He was given IV fluids and recommended giving another liter of bolus and maintaining him on a bicarb infusion with D5 and 150 mEq of sodium bicarbonate to be relatively 5 mL an hour. He was started on broad-spectrum antibiotics. He was given accommodation Rocephin and Zithromax. I held his diuretics for now. His echocardiogram from previous evaluations have shown an ejection fraction of 40- 45% and his last cardiac catheterization was done in November 2018 showing GONZALEZ to LAD, saphenous vein graft to diagonal branch and acute marginal branch and left PDA. He had essentially nonocclusive disease. He has mild aortic stenosis and moderate mitral regurgitation. Review of Systems CONSTITUTIONAL: No fever, no malaise, there is an increased fatigue and t iredness and weakness in general HEENT: No recent visual problems or hearing problems. Denied any sore throat. CARDIOVASCULAR: No orthopnea, PND, no palpitations, no syncope. PULMONARY: no hemoptysis. Increased shortness of breath and cough and congestion GASTROINTESTINAL: No diarrhea, no nausea, no vomiting, no abdominal pain. Normoactive bowel sounds. NEUROLOGICAL: No headaches, no weakness, no numbness. HEMATOLOGICAL: Denies any bleeding or petechiae. GENITOURINARY: Denies any burning micturition, frequency, or urgency. MUSCULOSKELETAL/RHEUMATOLOGICAL: Denies any joint pain, swelling, or any muscle pain. ENDOCRINE: Denies any polyuria or polydipsia. Past Medical History Past Medical History: Atrial Fibrillation, Coronary Artery Disease (CAD), Heart Failure, Diabetes Mellitus, GERD/Reflux, Hyperlipidemia, Hypertension, Myocardial Infarction (SC), Osteoarthritis (OA), Renal Disease, Vascular Disorder Additional Past Medical History / Comment(s): Pt recently admitted to [facility] on 01/16/19 with bilateral lower extremity cellulitis with multiple ulcers-positive for klebsiella/pseudomonas, uncontrolled diabetes, pleural effusion with R thoracentesis, exacerbation CHF. Other Hx: Paroxysmal Aflutter, PAD, chronic bilateral venous stasis dermatitis, lower extremety infection/blisters, chronic CHF, IDDM type II, BPH, post CABG urinary retention, CRD stage III, Last Myocardial Infarction Date:: 12/08/18 History of Any Multi-Drug Resistant Organisms: None Reported Past Surgical History: Appendectomy, Coronary Bypass/CABG, Heart Catheterization With Stent Additional Past Surgical History / Comment(s): 12/08/18 CABG 4 vessels, PCI with stents 2004, cardioversion for Aflutter, bilateral cataract removals/lens imp lants. Past Anesthesia/Blood Transfusion Reactions: No Reported Reaction Additional Past Anesthesia/Blood Transfusion Reaction / Comment(s): Pt received blood with CABG Date of Last Stent Placement:: 2004 Past Psychological History: No Psychological Hx Reported Additional Psychological History / Comment(s): Single. No children. No pets. Remote tobacco use. No international travel since his experience. Worked on [employer] Smoking Status: Former smoker Past Alcohol Use History: None Reported Additional Past Alcohol Use History / Comment(s): Pt smoked for one month in 1963. He quit drinking 1973 Past Drug Use History: None Reported - Past Family History Mother Family Medical History: Myocardial Infarction (SC) Additional Family Medical History / Comment(s): Mother had a SC at the age of 64 Father Additional Family Medical History / Comment(s): Father had mental health issues after a "bad" truck accident. Medications and Allergies Home Medications Medication Instructions Recorded Confirmed Type Ascorbic Acid [Vitamin C] 500 mg PO BID-W/MEALS tab 12/20/18 12/26/19 Rx Melatonin 3 mg PO HS 01/13/19 12/26/19 History Rosuvastatin Calcium [Crestor] 40 mg PO DAILY 01/13/19 12/26/19 History Tamsulosin [Flomax] 0.4 mg PO BID 01/13/19 12/26/19 History Aspirin EC [Ecotrin Low Dose] 81 mg PO HS 01/16/19 12/26/19 History Acetaminophen Tab [Tylenol] 500 mg PO Q6HR PRN tab 01/25/19 12/26/19 Rx Apixaban [Eliquis] 5 mg PO BID tab 01/25/19 12/26/19 Rx Metoprolol Tartrate [Lopressor] 25 mg PO BID 02/08/19 12/26/19 History Ferrous Sulfate [Iron (65 MG 325 mg PO BID 07/27/19 12/26/19 History Elemental)] Ammonium Lactate Cream [Lac-Hydrin 1 applic TOPICAL BID 10/30/19 12/26/19 History 12% Cream] Bacitracin Oint 1 applic TOPICAL BID PRN 10/30/19 12/26/19 History Finasteride [Proscar] 5 mg PO DAILY 10/30/19 12/26/19 History Furosemide [Lasix] 40 mg PO BID@0800,1500 10/30/19 12/26/19 History Insulin Aspart [NovoLOG] See Protocol SQ ACHS 10/30/19 12/26/19 History Ipratropium-Albuterol Nebulize 3 ml INHALATION RT-Q4H PRN 10/30/19 12/26/19 History [Duoneb 0.5 mg-3 mg/3 ml Soln] Metolazone [Zaroxolyn] 2.5 mg PO Q48H 10/30/19 12/26/19 History Psyllium Husk 100% [Metamucil 6 gm PO DAILY 10/30/19 12/26/19 History Packet] Sodium Bicarbonate Tab 650 mg PO BID 10/30/19 12/26/19 History hydrALAZINE HCL 25 mg PO BID 10/30/19 12/26/19 History Insulin Glargine,Hum.rec.anlog 10 unit SQ DAILY #1 pen 11/05/19 12/26/19 Rx [Lantus Solostar] Albuterol Sulfate [Ventolin HFA] 2 puff INHALATION RT-Q4H PRN 12/26/19 12/26/19 History Allergies Allergy/AdvReac Type Severity Reaction Status Date / Time atorvastatin [From Lipitor] AdvReac MUSCLE/JOINT Verified 12/26/19 22:49 PAIN Physical Exam Vitals: Vital Signs Temp Pulse Pulse Resp BP Pulse Ox 12/27/19 12:30 59 L 6 L 112/56 96 12/27/19 12:10 78 13 12/27/19 12:00 98.6 F 60 17 100/75 96 12/27/19 11:30 64 8 L 108/49 97 12/27/19 11:00 59 L 13 103/63 96 12/27/19 10:30 66 13 109/62 96 12/27/19 10:00 68 14 110/66 96 12/27/19 09:30 64 13 118/56 97 12/27/19 09:00 68 15 136/60 96 12/27/19 08:30 71 14 102/59 97 12/27/19 08:00 97.6 F 80 78 13 113/54 97 12/27/19 07:30 92 13 133/94 96 12/27/19 07:00 81 12 130/82 95 12/27/19 06:30 75 14 117/56 96 12/27/19 06:00 73 14 118/63 96 12/27/19 05:30 79 10 L 130/62 97 12/27/19 05:00 65 12 130/62 96 12/27/19 04:30 71 9 L 96 12/27/19 04:00 97.5 F L 70 14 123/62 95 12/27/19 03:35 78 14 12/27/19 03:30 73 11 L 96 12/27/19 03:00 63 9 L 123/74 97 12/27/19 02:30 77 12 97 12/27/19 02:00 75 13 97 12/27/19 01:30 97.8 F 64 16 116/62 96 12/27/19 01:26 20 12/27/19 01:20 76 16 12/27/19 00:53 76 17 131/62 99 12/27/19 00:00 97.8 F 80 17 123/52 97 12/26/19 23:46 82 17 94/64 99 12/26/19 23:29 97.3 F L 76 20 133/65 98 12/26/19 23:00 97.2 F L 73 20 123/63 98 12/26/19 22:30 97.9 F 65 20 107/53 100 12/26/19 22:00 68 24 104/57 92 L 12/26/19 21:24 69 20 109/46 97 12/26/19 20:35 76 18 132/52 98 12/26/19 19:24 97.2 F L 75 22 122/68 97 Intake and Output 12/26/19 12/27/19 12/27/19 22:59 06:59 14:59 Intake Total 375 1375 Output Total 465 145 Balance -90 1230 Intake: IV 375 375 Dextrose 5% in Water 1, 375 375 000 ml @ 75 mls/hr IV . [id number] PEARL with Sodium Bicarb (1 Meq/ml) 150 ml Rx#:[id number] Intake, IV Titration 1000 Amount Sodium Chloride 0.9% 1, 1000 000 ml @ 999 mls/hr IV . Q1H1M ONE Rx#:[id number] Output: Urine 465 145 straight catheter 200 Other: Voiding Method Indwelling Catheter Indwelling Catheter Weight 75.6 kg GENERAL: The patient is alert and oriented x3, not in any acute distress. Well developed, well nourished. No significant signs of any respiratory distress. The patient is not using excessive muscle breathing. Head exam was generally normal. There was no scleral icterus or corneal arcus. Mucous membranes were moist. HEENT: Pupils are round and equally reacting to light. EOMI. No scleral icterus. No conjunctival pallor. Normocephalic, atraumatic. No pharyngeal erythema. No thyromegaly. The patient seems to be quite dehydrated and the patient has dry mucous membranes. CARDIOVASCULAR: Irregular S1 and S2 present. No murmurs, rubs, or gallops. The patient thoracotomy scar over the anterior chest area with lidocaine and intact. PULMONARY: The patient has crackles along the right side of the lung. Breast on the quite diminished bilaterally especially in the lung bases. ABDOMEN: Soft, nontender, nondistended, normoactive bowel sounds. No palpable organomegaly. MUSCULOSKELETAL: No joint swelling or deformity. EXTREMITIES: No cyanosis, clubbing, or pedal edema. NEUROLOGICAL: Gross neurological examination did not reveal any focal deficits. SKIN: No rashes. No petechiae Results - Laboratory Findings CBC and BMP: 12/27/19 07:28 12/27/19 07:28 ABG ABG pH 7.13 (7.35-7.45) L* 12/26/19 23:02 ABG pCO2 22 mmHg (35-45) L 12/26/19 23:02 ABG pO2 118 mmHg (83-108) H 12/26/19 23:02 ABG O2 Saturation 97.1 % (94-97) H 12/26/19 23:02 PT/INR, D-dimer PT 10.6 sec (9.0-12.0) 12/26/19 20:20 INR 1.0 (<1.2) 12/26/19 20:20 D-Dimer 8.87 mg/L FEU (<0.60) H 12/26/19 20:20 Abnormal lab findings: Abnormal Labs 12/26/19 12/26/19 12/26/19 20:20 20:20 20:20 WBC 23.2 H RBC Hgb 12.3 L Hct 37.6 L Neutrophils # 21.9 H Lymphocytes # 0.2 L APTT D-Dimer ABG pH ABG pCO2 ABG pO2 ABG HCO3 ABG Total CO2 ABG O2 Saturation Potassium 6.7 H* Carbon Dioxide 10 L BUN 197 H* Creatinine 9.26 H* Glucose 149 H POC Glucose (mg/dL) Calcium 7.7 L Magnesium 2.5 H Ferritin Alkaline Phosphatase 288 H Lactate Dehydrogenase Troponin I 0.088 H* C-Reactive Protein Procalcitonin Urine Protein Urine Glucose (UA) Urine Blood 12/26/19 12/26/19 12/26/19 20:20 20:20 20:20 WBC RBC Hgb Hct Neutrophils # Lymphocytes # APTT D-Dimer 8.87 H ABG pH ABG pCO2 ABG pO2 ABG HCO3 ABG Total CO2 ABG O2 Saturation Potassium Carbon Dioxide BUN Creatinine Glucose POC Glucose (mg/dL) Calcium Magnesium Ferritin 648.0 H Alkaline Phosphatase Lactate Dehydrogenase 625 H Troponin I C-Reactive Protein 40.2 H Procalcitonin 0.51 H Urine Protein Urine Glucose (UA) Urine Blood 12/26/19 12/26/19 12/27/19 23:02 23:10 00:40 WBC RBC Hgb Hct Neutrophils # Lymphocytes # APTT D-Dimer ABG pH 7.13 L* ABG pCO2 22 L ABG pO2 118 H ABG HCO3 7 L* ABG Total CO2 8 L ABG O2 Saturation 97.1 H Potassium Carbon Dioxide BUN Creatinine Glucose POC Glucose (mg/dL) 230 H Calcium Magnesium Ferritin Alkaline Phosphatase Lactate Dehydrogenase Troponin I C-Reactive Protein Procalcitonin Urine Protein 2+ H Urine Glucose (UA) Trace H Urine Blood Trace H 12/27/19 12/27/19 12/27/19 01:25 01:25 01:25 WBC 18.7 H RBC 3.87 L Hgb 10.6 L Hct 32.6 L Neutrophils # 17.6 H Lymphocytes # 0.2 L APTT >200.0 H* D-Dimer ABG pH ABG pCO2 ABG pO2 ABG HCO3 ABG Total CO2 ABG O2 Saturation Potassium Carbon Dioxide BUN Creatinine Glucose POC Glucose (mg/dL) Calcium Magnesium Ferritin Alkaline Phosphatase Lactate Dehydrogenase Troponin I 0.111 H* C-Reactive Protein Procalcitonin Urine Protein Urine Glucose (UA) Urine Blood 12/27/19 12/27/19 12/27/19 01:28 02:41 06:54 WBC RBC Hgb Hct Neutrophils # Lymphocytes # APTT D-Dimer ABG pH ABG pCO2 ABG pO2 ABG HCO3 ABG Total CO2 ABG O2 Saturation Potassium 5.6 H Carbon Dioxide 11 L BUN 192 H* Creatinine 8.65 H* Glucose 195 H POC Glucose (mg/dL) 193 H 234 H Calcium 7.1 L Magnesium Ferritin Alkaline Phosphatase 237 H Lactate Dehydrogenase Troponin I C-Reactive Protein Procalcitonin Urine Protein Urine Glucose (UA) Urine Blood 12/27/19 12/27/19 12/27/19 07:28 07:28 07:28 WBC 14.6 H RBC 3.65 L Hgb 9.9 L Hct 29.4 L Neutrophils # Lymphocytes # APTT D-Dimer ABG pH ABG pCO2 ABG pO2 ABG HCO3 ABG Total CO2 ABG O2 Saturation Potassium 5.4 H Carbon Dioxide 11 L BUN 198 H* Creatinine 8.39 H* Glucose 210 H POC Glucose (mg/dL) Calcium 6.7 L Magnesium Ferritin Alkaline Phosphatase Lactate Dehydrogenase Troponin I 0.259 H* C-Reactive Protein Procalcitonin Urine Protein Urine Glucose (UA) Urine Blood 12/27/19 11:52 WBC RBC Hgb Hct Neutrophils # Lymphocytes # APTT D-Dimer ABG pH ABG pCO2 ABG pO2 ABG HCO3 ABG Total CO2 ABG O2 Saturation Potassium Carbon Dioxide BUN Creatinine Glucose POC Glucose (mg/dL) 155 H Calcium Magnesium Ferritin Alkaline Phosphatase Lactate Dehydrogenase Troponin I C-Reactive Protein Procalcitonin Urine Protein Urine Glucose (UA) Urine Blood - Diagnostic Findings Chest x-ray: image reviewed Assessment and Plan Plan: 1 right lower lobe pneumonia. Likely bacterial. Covid 19 infection was ruled out basilar rapid screen. The patient also has bilateral pleural effusions, small, consistent with underlying history of CHF. The pro-calcitonin level is mildly elevated at 0.51 2 acute on chronic kidney disease. The patient has stage III to 4 chronic kidney disease and the patient has developed acute kidney injury with significant elevation in creatinine and development of an underlying non-anion gap metabolic acidosis. 3 small bilateral pleural effusions 4 CHF with ejection fraction 45% and mild aortic stenosis and moderate mitral regurgitation. Echocardiac Richard is to be repeated. The patient has mild systolic heart failure 5 chronic atrial fibrillation maintained on Eliquis on outpatient basis 6 diabetes mellitus 7 hypertension 8 hyperlipidemia 9 coronary artery disease with previous bypass surgery that was performed in December 2018 10 history of iron deficiency anemia with a positive occult blood in the stool 11 metabolic acidosis well compensated for now. The patient is currently on a bicarb drip. The patient has a component of anion gap metabolic acidosis. The anion gap is at 22 and the serum bicarb is down to 11. 12 troponin leak, likely attributed to an acute STEMI, consider troponin leak secondary to above-mentioned comorbidities. plan Colitis patient with broad-spectrum antibiotics. We'll place this patien t on a combination of Rocephin and Zithromax Continue IV fluids and the patient is on D5 with 150 mg of sodium bicarbonate the rate of 75 mL an hour. The patient with you total of 2 L of IV fluids. No need for diuretics for now Monitor renal function Monitor electrolytes Repeat echocardiogram Hold anticoagulation forwith underlying acute kidney injury on top of chronic kidney failure. Note that the patient was taken Eliquis on outpatient basis Repeat chest x-ray in a.m. Cardiology consultation Nephrology consultation Ultrasound the kidneys Sputum Gram stain and culture Blood cultures Keep the Torres catheter in place amount of urine output Heparin 5000 units subcu every 12 hours for DVT prophylaxis Monitor the blood sugar and put the patient on sliding scale coverage We'll continue to follow make further recommendations based on her progress. Time with Patient: Greater than 30
--- NOTE | 2019-12-27 14:10 | CONS ---
CONSULTATION REASON FOR CONSULT: Renal failure. HISTORY OF PRESENT ILLNESS: Patient is a 79-year-old male who was admitted to the hospital with complaints of weakness. He also states that [facility] and asked to go to the hospital. Patient was found to have a potassium of 6.7 on admission and a serum creatinine of 9.26 mg/dL. Previous creatinine was 2.19 on 11/04/2019. Patient was also quite acidotic with a CO2 of 10. He has not been hypotensive. He denies any fever, chills, nausea, vomiting or diarrhea. No new medications. The patient was maintained on diuretics at home. He denies any history of fall. Patient is currently maintained on IV fluids. His urine output has dropped since early this morning. He did have good urine output yesterday. No new medicines or nephrotoxic medications noted on his home med list. 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 I believe this was an element of acute kidney injury. The patient has had better creatinine in the summer of last year about 1.7-1.8 mg/dL. In past medical history we also have hypertension, coronary artery disease, atrial fibrillation, type 2 diabetes, gastroesophageal reflux disease, osteoarthritis, previous history of cellulitis. PAST SURGICAL HISTORY: Appendectomy, coronary artery bypass surgery and history of cardiac catheterization, coronary stent placement, cataract surgery, cardioversion. SOCIAL HISTORY: Patient is a former smoker. No history of drug abuse or alcohol abuse. MEDICATIONS: At home prior to admission vitamin C, melatonin, Crestor, Flomax, aspirin, Tylenol, Eliquis, Lopressor, iron, Proscar, Lasix, insulin, Zaroxolyn, hydralazine, sodium bicarb. ALLERGIES: Include LIPITOR which causes muscle and joint pains. REVIEW OF SYSTEMS: As per HPI. Other systems negative. PHYSICAL EXAMINATION: Patient is comfortable, awake, he is not in any acute distress. Blood pressure is 94/55, this afternoon earlier it was 100/75, heart rate about 60 per minute, he is afebrile. Examination of the heart S1, S2. Examination of lungs, decreased breath sounds at the bases. Abdomen is soft, nontender. Examination of the lower extremities shows no evidence of edema. Chronic skin changes noted. OPERATIONS ASSISTANT exam grossly intact. LABS: Show sodium 137, potassium 5.4, chloride 103, CO2 is 11, BUN 198, serum creatinine 8.39. UA shows 2+ protein, glucose trace, blood trace, castellanos virus PCR not detected. Stool for occult blood was positive. Hemoglobin 9.9 g/dL. ASSESSMENT: 1. Acute kidney injury, most likely acute tubular necrosis. Doubt obstructive uropathy; however, ultrasound will be ordered. Patient appears volume depleted. Will continue with IV fluids. However, if he continues to have no urine output, I will give him a dose of Lasix to help with the urine output. Continue with the IV fluids for now. 2. Severe metabolic acidosis and anion gap associated with advanced renal failure, maintained on bicarb drip. 3. Chronic kidney disease stage IIIB to IV, secondary to diabetic nephropathy nephrosclerosis, baseline creatinine about 1.7-2 mg/dL. 4. Hyperkalemia associated with advanced renal failure. 5. History of congestive heart failure. Echocardiogram done in January of last year shows ejection fraction 45%-50%, currently not in failure. 6. Atrial fibrillation with controlled ventricular response maintained on Eliquis as outpatient. 7. Right lower lobe pneumonia, maintained on empiric antibiotics. PLAN: Check ultrasound of the kidneys. Continue with IV fluids. If renal function does not improve by tomorrow, patient will need dialysis. Continue to avoid nephrotoxic agents. Hold off on diuretics and monitor respiratory status closely. MMODL / IJN: [id number] /
--- NOTE | 2019-12-27 15:18 | US ---
EXAMINATION TYPE: US kidneys/renal and bladder DATE OF EXAM: 12/27/2019 COMPARISON: CT 02/09/2019 renal US 07/05/2019 CLINICAL HISTORY: ninoska with crf. EXAM MEASUREMENTS: Right Kidney: 10.9 x 6.6 x 6.0 cm Left Kidney: 10.3 x 6.9 x 6.5 cm Right Kidney: No hydronephrosis or masses seen Left Kidney: No hydronephrosis or masses seen Bladder: Not distended, patient has pittman There is no evidence for hydronephrosis at this point in time. No masses identified on images saved. Suboptimal evaluation of bladder with Pittman catheter. Suboptimal study due to patient's body habitus. IMPRESSION: Suboptimal study without new hydronephrosis identified bilaterally.
[2019-12-27] MEDS: DEXTROSE 5% IN WATER 1,000 ML with SODIUM BICARB (1 MEQ/ML) 150 ML IV SCH (15:23)
[2019-12-27 17:10] LABS: Glucose,Whole Blood 254 mg/dL (75-99)
[2019-12-27 18:43] LABS: Hemoglobin A1C 9.1 % (4.0-6.0)
[2019-12-27 21:39] LABS: Glucose,Whole Blood 195 mg/dL (75-99)
[2019-12-27] MEDS: AZITHROMYCIN 500 MG in SODIUM CHLORIDE 0.9% 250 ML IVPB SCH (21:50)
[2019-12-27] MEDS: MELATONIN 3 MG TABLET PO SCH (21:52)
[2019-12-27] MEDS ORDERED: ASPIRIN 325 MG TAB PO SCH (22:00)
[2019-12-28] MEDS: SODIUM CHLORIDE 0.9% 1,000 ML IV SCH ×4 (03:44→23:09)
[2019-12-28 05:21] LABS: Potassium 3.9 mmol/L (3.5-5.1)
[2019-12-28 05:22] LABS: Basophils % (A) 0 %; Eosinophils # (A) 0.3 k/uL (0-0.7); Eosinophils % (A) 3 %; HCT 25.2 % (39.0-53.0); HGB 8.5 gm/dL (13.0-17.5); Lymphocytes # (A) 0.3 k/uL (1.0-4.8); Lymphocytes % (A) 3 %; MCH 27.8 pg (25.0-35.0); MCHC 33.9 g/dL (31.0-37.0); Mean Platelet Volume 7.9; Monocytes # (A) 0.6 k/uL (0-1.0); Monocytes % (A) 8 %; Neutrophils # (A) 6.4 k/uL (1.3-7.7); Neutrophils % (A) 83 %; Platelet Count 136 k/uL (150-450); RBC 3.08 m/uL (4.30-5.90); RDW 14.7 % (11.5-15.5); WBC 7.8 k/uL (3.8-10.6)
[2019-12-28 05:36] LABS: Calcium 5.9 mg/dL (8.4-10.2)
[2019-12-28] MEDS: DEXTROSE 5% IN WATER 1,000 ML with SODIUM BICARB (1 MEQ/ML) 150 ML IV SCH ×3 (06:43→21:34)
[2019-12-28 06:51] LABS: Glucose,Whole Blood 151 mg/dL (75-99)
[2019-12-28] MEDS: INSULIN ASPART (NovoLOG) 100 UNIT/ML VIAL SQ SCH ×4 (06:53→20:37)
[2019-12-28] MEDS: ASCORBIC ACID 500 MG TAB PO SCH ×2 (06:54→17:48)
[2019-12-28] MEDS ORDERED: CALCIUM GLUCONATE 1 GM in SODIUM CHLORIDE 0.9% 100 ML IVPB ONE (07:00)
--- NOTE | 2019-12-28 07:21 | XR ---
EXAMINATION TYPE: XR chest 1V portable DATE OF EXAM: 12/28/2019 CLINICAL HISTORY: Difficulty breathing progress study. TECHNIQUE: Single AP portable upright view of the chest is obtained. COMPARISON: Chest x-ray from one day earlier and older studies. FINDINGS: Overlying sternal wires and mediastinal clips along with cardiac closure device superior a spect of heart are all redemonstrated. Persistent bibasilar opacities and cardiomegaly. Upper lungs r emain clear . New right apical edge line of uncertain etiology as lung markings appear to extend into the apex past this line. New small right apical pneumothorax not entirely excluded. No mediastinal s hift. Degenerative change bilateral shoulders redemonstrated. IMPRESSION: Persistent cardiomegaly with bibasilar acute infiltrate and/or atelectasis and small bila teral pleural effusions. Cannot exclude new small right apical pneumothorax. Advise short-term follow-up chest x-ray today to reassess. A Yellow level critical message alert has been initiated for Collin Jacob via the [employer] Critical Results System on 12/28/2019 7:19 AM. This message alert has been sent to Collin Jacob via the preferences provided by the clinician for the receipt of Radiology Critical Findings. Message ID [id number].
[2019-12-28] MEDS: PANTOPRAZOLE 40 MG/10 ML VIAL IVP SCH (07:59)
[2019-12-28] MEDS: FERROUS SULFATE 325 MG TAB PO SCH ×2 (08:00→21:36)
[2019-12-28] MEDS: SODIUM BICARBONATE TAB 650 MG TAB PO SCH ×2 (08:00→21:36)
[2019-12-28] MEDS: METOPROLOL TARTRATE 25 MG TAB PO SCH ×2 (08:00→21:36)
[2019-12-28] MEDS: hydrALAZINE HCL 25 MG TAB PO SCH ×2 (08:00→21:36)
[2019-12-28] MEDS: TAMSULOSIN 0.4 MG CAP.ER.24H PO SCH ×2 (08:00→21:36)
[2019-12-28] MEDS: HEPARIN SODIUM,PORCINE 5,000 UNIT/ML 1 ML VIAL SQ SCH ×2 (08:00→21:36)
[2019-12-28] MEDS: PRAVASTATIN SODIUM 80 MG TAB PO SCH (08:11)
[2019-12-28] MEDS: FINASTERIDE 5 MG TAB PO SCH (08:11)
[2019-12-28] MEDS: ASPIRIN 81 MG PO SCH (08:11)
[2019-12-28] MEDS: AMMONIUM LACTATE 12% CREAM 140 GM TUBE TOPICAL SCH ×2 (09:15→21:36)
--- NOTE | 2019-12-28 09:18 | PN ---
PROGRESS NOTE Mr. Brice is a 79-year-old male with a history of coronary artery disease, history of atrial fibrillation and atrial flutter, status post coronary artery bypass grafting, who presented with worsening renal failure and hyperkalemia. Was found to have evidence of an infiltrate. He is mildly dyspneic. He is denying any chest pain. Hemodynamically, he is stable. He continues to be in coarse atrial flutter. He has no significant hypotension. He has no dizziness or palpitation. He has no nausea. He continues to be on aspirin 81 mg daily, he received 1 dose of Lasix yesterday. He is on subcu heparin, hydralazine 25 mg twice a day, DuoNeb, metoprolol tartrate 25 mg twice a day, nitroglycerin paste 1 inch q.6 hours. He is using IV fluid 75 mL with bicarb and Flomax. PHYSICAL EXAMINATION: Blood pressure running in the 110s with a heart rate in 60s. LUNGS: With crackles at the bases. HEART: Irregular regular, S1, S2, no S3 with systolic ejection murmur, no diastolic murmur. ABDOMEN: Soft, nontender. EXTREMITIES: No significant edema. LAB DATA: Revealed BUN and creatinine 179 and 7.96, potassium 3.9, bicarb 15. Hemoglobin of 8.5. Chest x-ray shows evidence of a cardiomegaly with bibasilar infiltrate. There was a small right apical pneumothorax. IMPRESSION: 1. Worsening renal failure with hyperkalemia, hyperkalemia resolved. Two probable pneumonia with infiltrate, questionable congestive heart failure. 2. Status post coronary artery bypass grafting. 3. Atrial fibrillation and flutter, persistent Patient was anticoagulated but anticoagulation was stopped because of gastrointestinal bleeding and anemia. 4. History of hypertension. RECOMMENDATION: From the cardiac standpoint, I will stop the nitroglycerin paste at this time because of the lower blood pressure. Continue rest of his medical regimen. Follow his heart rate. Will continue holding his anticoagulation at this time. The patient continues to have metabolic acidosis for now. Depending on his progress, further recommendation will be made. MMODL / IJN: [id number] /
[2019-12-28 11:02] LABS: Glucose,Whole Blood 193 mg/dL (75-99)
[2019-12-28 11:58] LABS: Glucose,Whole Blood 190 mg/dL (75-99)
--- NOTE | 2019-12-28 13:26 | P.PN ---
Subjective Progress Note Date: 12/28/19 79-year-old male patient who came into the emergency department complaining of worsening shortness of breath. He denied having any significant cough or sputum production. Denied having any sick contacts including exposure to COVID 19. He was however getting more short of breath and addition to that he was coughing out some thick sputum. Denied having any chest pain. No nausea. No vomiting. No abdominal pain. He has multiple medical problems and comorbidities in summary, the patient has history of chronic kidney disease stage 3-4, coronary artery disease with previous bypass surgery that was done in December 2018, diabetes mellitus with history of diabetic nephropathy, hypertension, hyperlipi demia, chronic atrial fibrillation and chronic congestion heart failure. His workup in emergency department revealed the following He had a chest x-ray that showed better pleural effusion in addition to a right lower lobe consolidation. EKG showed no acute ST segment elevation or depression. There was a right bundle branch block pattern with a sinus rhythm His blood work showed an acute on top of chronic kidney injury. His creatinine was up to 8.3 with a potassium level of 5.4 in the sodium level [id number]. Note that his baseline creatinine was as high as 2.4. He did have some mild troponin elevation with levels being at 0.08, 0.11 and 0.25 respectively His occult stool was also positive His blood gases showed metabolic acidosis with a pH of 7.11 and a pCO2 of 22 and pO2 of 118 The patient was seen in intensive care unit. Despite his metabolic acidosis, the patient was awake and alert and following commands and answering course appropriately. Clinically , he was quite dry including grasses mucous membranes without any significant edema in lower extremities bilaterally. He was given IV fluids and recommended giving another liter of bolus and maintaining him on a bicarb infusion with D5 and 150 mEq of sodium bicarbonate to be relatively 5 mL an hour. He was started on broad-spectrum antibiotics. He was given accommodation Rocephin and Zithromax. I held his diuretics for now. His echocardiogram from previous evaluations have shown an ejection fraction of 40- 45% and his last cardiac catheterization was done in November 2018 showing GONZALEZ to LAD, saphenous vein graft to diagonal branch and acute marginal branch and left PDA. He had essentially nonocclusive disease. He has mild aortic stenosis and moderate mitral regurgitation. On 12/28/2019, the patient is being seen for a follow-up in the intensive care unit. Note that the patient was being treated for right lower lobe pneumonia/bilateral pneumonia and the patient was given a broad-spectrum antibiotic coverage. He was also in acute on chronic kidney injury and the patient was resuscitated IV fluids. On today's evaluation, the patient is quite comfortable and he is still on room air oxygen. His chest x-ray from today shows a 15th 20% pneumothorax on the right. Note that this was a spontaneous pneumothorax and the patient did not have any fall, trauma, or any other surgical procedures done on the right side of the chest. The patient is on a D5 and 150 mg of bicarb infusion rate of 75 mL's an hour. Urine output is in order of 30 mL an hour. The patient remains in atrial fibrillation with a controlled rate. The white cell count is at 7.8 with hemoglobin 8.5. White cell count is improved. Hemoglobin dropped however this was essentially a adequate study for now nontender the previous value was hemoconcentrated. The patient's BUN is on 279. The patient's creatinine is down to 7.9. The patient's serum bicarbs up to 35. I added also normal saline at 75 an hour. The patient me what is still on a broad-spectrum antibiotic coverage utilizing a combination of Rocephin and Zithromax. He is afebrile. I decided not to put any chest tube on the right side as the patient is quite comfortable and there is no evidence of any tension. Nevertheless, I decided to obtain a follow-up chest x-ray at around noontime. This will be needed to monitor the right-sided pneumothorax. Objective - Vital Signs Vital signs: Vital Signs Temp 98.2 F 12/28/19 08:00 Pulse 66 12/28/19 11:00 Resp 18 12/28/19 11:00 BP 107/56 12/28/19 11:00 Pulse Ox 97 12/28/19 10:00 Intake & Output 12/27/19 12/28/19 12/28/19 18:59 06:59 18:59 Intake Total 2825 900 775 Output Total 380 432 160 Balance 5087 586 615 Weight 79.1 kg 79.1 kg Intake: IV 825 900 775 Calcium Gluconate 1 gm In 100 Sodium Chloride 0.9% 100 ml @ 100 mls/hr IVPB ONCE ONE Rx#:[id number] Dextrose 5% in Water 1, 825 900 75 000 ml @ 125 mls/hr IV . Q9H12M PEARL with Sodium Bicarb (1 Meq/ml) 150 ml Rx#:[id number] Dextrose 5% in Water 1, 300 000 ml @ 75 mls/hr IV . [id number] PEARL with Sodium Bicarb (1 Meq/ml) 150 ml Rx#:[id number] Sodium Chloride 0.9% 1, 300 000 ml @ 75 mls/hr IV . [id number] PEARL Rx#:[id number] Intake, IV Titration 2000 Amount Sodium Chloride 0.9% 1, 1000 000 ml @ 999 mls/hr IV . Q1H1M ONE Rx#:[id number] Sodium Chloride 0.9% 1, 1000 000 ml @ 999 mls/hr IV . Q1H1M ONE Rx#:[id number] Output: Urine 380 432 160 Other: Voiding Method Indwelling Catheter Indwelling Catheter Indwelling Catheter # Bowel Movements 1 - Exam GENERAL: The patient is alert and oriented x3, not in any acute distress. Well developed, well nourished. No significant signs of any respiratory distress. The patient is not using excessive muscle breathing. Head exam was generally normal. There was no scleral icterus or corneal arcus. Mucous membranes were moist. HEENT: Pupils are round and equally reacting to light. EOMI. No scleral icterus. No conjunctival pallor. Normocephalic, atraumatic. No pharyngeal erythema. No thyromegaly. The patient seems to be quite dehydrated and the patient has dry mucous membranes. CARDIOVASCULAR: Irregular S1 and S2 present. No murmurs, rubs, or gallops. The patient thoracotomy scar over the anterior chest area with lidocaine and intact. PULMONARY: The patient has crackles along the right side of the lung. Breast on the quite diminished bilaterally especially in the lung bases. ABDOMEN: Soft, nontender, nondistended, normoactive bowel sounds. No palpable organomegaly. MUSCULOSKELETAL: No joint swelling or deformity. EXTREMITIES: No cyanosis, clubbing, or pedal edema. NEUROLOGICAL: Gross neurological examination did not reveal any focal deficits. SKIN: No rashes. No petechiae - Labs CBC & Chem 7: 12/28/19 04:29 12/28/19 04:29 Labs: Abnormal Lab Results - Last 24 Hours (Table) 12/27/19 12/27/19 12/27/19 Range/Units 07:28 17:09 21:38 RBC (4.30-5.90) m/uL Hgb (13.0-17.5) gm/dL Hct (39.0-53.0) % Plt Count (150-450) k/uL Lymphocytes # (1.0-4.8) k/uL Carbon Dioxide (22-30) mmol/L BUN (9-20) mg/dL Creatinine (0.66-1.25) mg/dL Glucose (74-99) mg/dL POC Glucose (mg/dL) 254 H 195 H (75-99) mg/dL Hemoglobin A1c 9.1 H (4.0-6.0) % Plasma Lactic Acid Gutierrez (0.7-2.0) mmol/L Calcium (8.4-10.2) mg/dL 12/28/19 12/28/19 12/28/19 Range/Units 04:29 04:29 04:29 RBC 3.08 L (4.30-5.90) m/uL Hgb 8.5 L (13.0-17.5) gm/dL Hct 25.2 L (39.0-53.0) % Plt Count 136 L (150-450) k/uL Lymphocytes # 0.3 L (1.0-4.8) k/uL Carbon Dioxide 15 L (22-30) mmol/L BUN 179 H* (9-20) mg/dL Creatinine 7.96 H* (0.66-1.25) mg/dL Glucose 106 H (74-99) mg/dL POC Glucose (mg/dL) (75-99) mg/dL Hemoglobin A1c (4.0-6.0) % Plasma Lactic Acid Gutierrez 0.6 L (0.7-2.0) mmol/L Calcium 5.9 L* (8.4-10.2) mg/dL 12/28/19 12/28/19 12/28/19 Range/Units 06:49 11:00 11:57 RBC (4.30-5.90) m/uL Hgb (13.0-17.5) gm/dL Hct (39.0-53.0) % Plt Count (150-450) k/uL Lymphocytes # (1.0-4.8) k/uL Carbon Dioxide (22-30) mmol/L BUN (9-20) mg/dL Creatinine (0.66-1.25) mg/dL Glucose (74-99) mg/dL POC Glucose (mg/dL) 151 H 193 H 190 H (75-99) mg/dL Hemoglobin A1c (4.0-6.0) % Plasma Lactic Acid Gutierrez (0.7-2.0) mmol/L Calcium (8.4-10.2) mg/dL Microbiology - Last 24 Hours (Table) 12/26/19 20:20 Blood Culture - Preliminary Blood No Growth after 24 hours Assessment and Plan Plan: 1 right lower lobe pneumonia. Likely bacterial. Covid 19 infection was ruled out basilar rapid screen. The patient also has bilateral pleural effusions, small, consistent with underlying history of CHF. The pro-calcitonin level is mildly elevated at 0.51. Noted the patient was covered with accommodation of Rocephin and Zithromax. The follow-up chest x-ray from today shows persistent right lower lobe consolidation there is a new onset right apical pneumothorax and order of 15-20%. No evidence of any tension. We will going to monitor and obtain a follow-up chest x-ray in this patient. Consider insertion of a chest tube or a Thoravent if the pneumothorax gets worse. 2 acute on chronic kidney disease. The patient has stage III to 4 chronic kidney disease and the patient has developed acute kidney injury with significant elevation in creatinine and development of an underlying non-anion gap metabolic acidosis. The patient's metabolic acidosis improving as the patient is receiving bicarb infusion. Renal function is also improving. 3 small bilateral pleural effusions 4 CHF with ejection fraction 45% and mild aortic stenosis and moderate mitral regurgitation. Echo to be repeated. The patient has mild systolic heart failure 5 chronic atrial fibrillation maintained on Eliquis on outpatient basis, and the patient continues to be in atrial fibrillation with a controlled rate. 6 diabetes mellitus 7 hypertension 8 hyperlipidemia 9 coronary artery disease with previous bypass surgery that was performed in December 2018 10 history of iron deficiency anemia with a positive occult blood in the stool 11 metabolic acidosis well compensated for now. 12 troponin leak, likely attributed to an acute STEMI, consider troponin leak secondary to above-mentioned comorbidities. plan Continue broad-spectrum antibiotics with a combination of Rocephin and Zithromax Continue IV fluids and the patient is on D5 with 150 meq of sodium bicarbonate the rate of 75 mL an hour. I'm also going to add normal saline at the rate of 75 mL's an hour No need for diuretics for now Monitor renal function Monitor electrolytes Repeat echocardiogram results are still pending Hold anticoagulation forwith underlying acute kidney injury on top of chronic kidney failure. Note that the patient was taken Eliquis on outpatient basis Repeat chest x-ray at noontime to monitor the right-sided pneumothorax and consider insertion of a chest tube if the pneumothorax as getting worse. The patient is asymptomatic with that and I opted not to put any chest tube for the time being. The cultures all negative and we will going to monitor those Keep the Torres catheter in place amount of urine output Heparin 5000 units subcu every 12 hours for DVT prophylaxis Monitor the blood sugar and put the patient on sliding scale coverage We'll continue to follow make further recommendations based on her progress. Condition is critical and this evaluation was done in 30 minutes. During this time, the case was discussed with the family and with the rest of the cons ultants including cardiology and nephrology. Time with Patient: Greater than 30
--- NOTE | 2019-12-28 13:54 | XR ---
EXAMINATION TYPE: XR chest 1V portable DATE OF EXAM: 12/28/2019 Comparison: 12/28/2019 Clinical History: 79-year-old female right pneumothorax follow up Findings: Median sternotomy wires and post-CABG clips. Heart is mildly enlarged. Mild interstitial density jefe ins. Bibasilar opacities and small effusions are redemonstrated. Continued small right apical pneumot horax. This may be slightly larger from prior and is a superomedial component is now visualized. Othe rwise, the apical component is relatively similar at 1.5 cm. Impression: 1. Small right apical pneumothorax redemonstrated. This may be slightly larger as a superomedial comp onent is now visualized. The apical component is similar at 1.5 cm. 2. Continued small effusions with right greater than the left bibasilar consolidation.
--- NOTE | 2019-12-28 15:30 | PN ---
PROGRESS NOTE Patient is seen for followup for acute kidney injury, which appears to be mainly ATN and hypovolemia. There is no evidence of obstruction. The patient has good urine output. He is maintained on IV fluids and renal function is slowly improving. Patient however remains weak and he is also complaining of nausea. I discussed with him that this is most likely related to uremia, and he will benefit from 1 or 2 hemodialysis treatments. However, patient states he would like to wait, since renal function continues to improve. I have told him that this is acceptable for now as long as his renal function continues to improve. PHYSICAL EXAMINATION: On examination today, blood pressure was 107/56, heart rate 66 per minute. He is afebrile. EXAMINATION OF THE HEART: S1 and S2. EXAMINATION OF LUNGS: Decreased breath sounds at bases. ABDOMEN: Soft, obese, non-tender. Examination of lower extremities shows no evidence of edema. COVER SEAMER exam is grossly intact. LABS: Hemoglobin 8.5, sodium 137, potassium 3.9, chloride 102. CO2 is 15, BUN 179, creatinine 7.96. ASSESSMENT: 1. Acute kidney injury, mostly acute tubular necrosis, nonoliguric, improving slowly with IV fluids. Patient does have symptoms of uremia. However, he would like to wait instead of having a couple of treatments of dialysis. I have advised him that this is acceptable as long as his renal function continues to improve. However, if his urine output remains low and renal function is not further improved by tomorrow, we should proceed with at least a couple of treatments of dialysis. 2. Severe metabolic acidosis, anion gap, associated with advanced renal failure, maintained on IV bicarb. No ongoing GI fluid loss at this point. 3. Hypocalcemia. Rule out nutritional vitamin D deficiency. 4. Anemia. No active bleeding noted. Check iron profile and start patient on Procrit/Aranesp. 5. Chronic kidney disease, stage IV, with previous creatinine about 2.1 to 2.4 mg/dL. 6. Right lower lobe pneumonia, maintained on antibiotics. 7. New-onset right apical pneumothorax, 15% to 20%. 8. Congestive heart failure, systolic, currently not in failure. 9. Cardiomyopathy, ejection fraction of 45%. 10.Chronic atrial fibrillation, maintained on Eliquis. PLAN: Continue with the bicarb drip. Repeat labs in a.m. If renal function is not further improved tomorrow, I will start dialysis. At this time patient would like to wait, as his renal function has been slowly heading in the right direction. [id number] / IJN: [id number] /
[2019-12-28 16:41] LABS: Glucose,Whole Blood 192 mg/dL (75-99)
[2019-12-28] MEDS: DARBEPOETIN ALFA 60 MCG/0.3 ML SYRINGE SQ SCH (17:48)
[2019-12-28 18:41] LABS: % Iron Saturation 76.17 (15.00-50.00)
[2019-12-28] MEDS: ONDANSETRON 4 MG/2 ML VIAL IVP PRN (19:01)
--- NOTE | 2019-12-28 20:01 | P.PN ---
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 Epps Presents because of dyspnea for about one week and feeling cold walking in the cold weather going to his doctor appointment, his dyspnea gradually got worse associated with little cough and that'll clear phlegm. No chest pain, no abdom inal pain, no nausea vomiting. No diarrhea Patient denies smoking, alcohol or illicit drugs On admission patient is afebrile, saturating 96% on room air, breathing rate at 9-14 BPM, blood pressure 118/63. Labs showing leukocytosis of 23.2-14.6k, with base of the Kelly is within normal limits. Hemoglobin is 9.9 with baseline around 9-12. PTT more than 200, sodium 137, potassium 5.4, creatinine 8.3, with baseline 1.7-2.4. Potassium on presentation was 6.7, coming down to 5.4, glucose 193-to 34, liver enzymes and bilirubin not elevated, elevated troponin at 0.08, 0.11 and 0.25, baseline creatinine is elevated at 0.04-0.09. Occult blood stool was positive Chest x-ray: Right lower lobe airway disease, possible CHF. EKG: Sinus rhythm at 70 bpm with right bundle-branch block, QTC 546 Solution Analyst already evaluated the patient. They recommended to continue with diuresis and follow-up renal function and chest x-ray. On admission he was started on Rocephin and Zithromax and sodium bicarb at 75 mL/h on presentation his ABG showing pH of 7.1, pCO2 of 22 and pO2 of 118 so patient was admitted to the ICU for further monitoring Today patient got 1 L of normal saline for possible sepsis although there was some suspicion of fluid in the chest x-ray by director private music therapy agency. He is not on IV fluids currently His Eliquis was held because was positive FOBT, however we will start him on subcutaneous heparin for DVT prophylaxis given his hemoglobin low at 9.9, but we will keep monitor his hemoglobin closely. Patient was on insulin long-acting 10 units daily, withheld her that and continue with insulin sliding scale, as his sugar was controlled this morning 12/28/2019 Patient lying in bed comfortable, no distress, no respiratory distress especially patient today found to have right pneumothorax. Still been treated with Rocephin and Zithromax for his pneumonia. Marketing Services Vice President team R following the case closely for acute kidney injury on chronic kidney disease, his creatinine is slightly went down today to 7.9, however if no improvement patient might need hemodialysis. Occult blood in the stool was positive with slight drop in hemoglobin. Patient Eliquis was stopped and continue with subcutaneous heparin for DVT prophylaxis. He is hemodynamically stable. Cardiology are following the case closely for these troponin, acute on chronic. Continue with conservative treatment for now. Dr. pool was stopped Review of systems CONSTITUTIONAL: No fever, no malaise, no fatigue. HEENT: No recent visual problems or hearing problems. Denied any sore throat. CARDIOVASCULAR: No orthopnea, PND, no palpitations, no syncope. PULMONARY: No shortness of breath, no cough, no hemoptysis. GASTROINTESTINAL: No diarrhea, no nausea, no vomiting, no abdominal pain. Normoactive bowel sounds. NEUROLOGICAL: No headaches, no weakness, no numbness. HEMATOLOGICAL: Denies any bleeding or petechiae. GENITOURINARY: Denies any burning micturition, frequency, or urgency. MUSCULOSKELETAL/RHEUMATOLOGICAL: Denies any joint pain, swelling, or any muscle pain. ENDOCRINE: Denies any polyuria or polydipsia. Active Medications Generic Name Dose Route Start Last Admin Trade Name Freq PRN Reason Stop Dose Admin Albuterol/Ipratropium 3 ml 12/27/19 00:59 Duoneb 0.5 Mg-3 Mg/3 Ml Soln INHALATION RT-Q4H PRN Shortness Of Breath Ascorbic Acid 500 mg 12/27/19 07:30 12/28/19 17:48 Vitamin C PO 500 mg BID-W/MEALS PEARL Administration Aspirin 81 mg 12/28/19 09:00 12/28/19 08:11 Aspirin PO 81 mg DAILY PEARL Administration Darbepoetin Samson 60 mcg 12/28/19 17:00 12/28/19 17:48 Aranesp SQ 60 mcg Q7D PEARL Administration Ferrous Sulfate 325 mg 12/27/19 09:00 12/28/19 08:00 Feosol PO 325 mg BID PEARL Administration Finasteride 5 mg 12/27/19 09:00 12/28/19 08:11 Proscar PO 5 mg DAILY PEARL Administration Heparin Sodium (Porcine) 5,000 unit 12/27/19 10:30 12/28/19 08:00 Heparin SQ 5,000 unit Q12HR PEARL Administration Hydralazine HCl 25 mg 12/27/19 09:00 12/28/19 08:00 Apresoline PO 25 mg BID PEARL Administration Sodium Chloride 1,000 mls @ 20 mls/hr 12/26/19 22:00 12/28/19 03:44 Saline 0.9% IV 20 mls/hr .Q24H PEARL Administration Ceftriaxone Sodium 1 gm/ 50 mls @ 100 mls/hr 12/27/19 21:00 12/27/19 21:49 Sodium Chloride IVPB 100 mls/hr HS PEARL Administration Azithromycin 500 mg/ Sodium 250 mls @ 250 mls/hr 12/27/19 21:00 12/27/19 21: 50 Chloride IVPB 250 mls/hr HS PEARL Administration Sodium Chloride 1,000 mls @ 75 mls/hr 12/28/19 08:15 12/28/19 08:00 Saline 0.9% IV 75 mls/hr .[id number] PEARL Administration Sodium Bicarbonate 150 ml/ 1,150 mls @ 75 mls/hr 12/28/19 11:30 12/28/19 08:00 Dextrose/Water IV 75 mls/hr .[id number] PEARL Administration Insulin Aspart 0 unit 12/27/19 07:30 12/28/19 17:48 Novolog SQ 2 unit ACHS PEARL Administration Protocol Lactic Acid 1 applic 12/27/19 09:00 12/28/19 09:15 Ammonium Lactate TOPICAL 1 applic BID PEARL Administration Melatonin 3 mg 12/27/19 21:00 12/27/19 21:52 Melatonin PO 3 mg HS PEARL Administration Metoprolol Tartrate 25 mg 12/27/19 09:00 12/28/19 08:00 Lopressor PO 25 mg BID PEARL Administration Ondansetron HCl 4 mg 12/27/19 23:54 12/28/19 19:01 Zofran IVP 4 mg Q6HR PRN Administration Nausea And Vomiting Pantoprazole Sodium 40 mg 12/27/19 09:15 12/28/19 07:59 Protonix IVP 40 mg DAILY PEARL Administration Pravastatin Sodium 80 mg 12/27/19 11:00 12/28/19 08:11 Pravachol PO 80 mg DAILY PEARL Administration Sodium Bicarbonate 650 mg 12/27/19 09:00 12/28/19 08:00 Sodium Bicarbonate Tab PO 650 mg BID PEARL Administration Tamsulosin HCl 0.4 mg 12/27/19 09:00 12/28/19 08:00 Flomax PO 0.4 mg BID PEARL Administration Objective - Vital Signs Vital signs: Vital Signs Temp 98.4 F 12/28/19 12:00 Pulse 68 12/28/19 15:00 Resp 12 12/28/19 15:00 BP 112/53 12/28/19 15:00 Pulse Ox 97 12/28/19 15:00 Intake & Output 12/27/19 12/28/19 12/28/19 18:59 06:59 18:59 Intake Total 2825 900 1375 Output Total 380 432 430 Balance 2440 468 945 Weight 79.1 kg 79.1 kg Intake: IV 668 517 0784 Calcium Gluconate 1 gm In 100 Sodium Chloride 0.9% 100 ml @ 100 mls/hr IVPB ONCE ONE Rx#:[id number] Dextrose 5% in Water 1, 825 900 75 000 ml @ 125 mls/hr IV . Q9H12M PEARL with Sodium Bicarb (1 Meq/ml) 150 ml Rx#:[id number] Dextrose 5% in Water 1, 600 000 ml @ 75 mls/hr IV . [id number] PEARL with Sodium Bicarb (1 Meq/ml) 150 ml Rx#:[id number] Sodium Chloride 0.9% 1, 600 000 ml @ 75 mls/hr IV . [id number] PEARL Rx#:[id number] Intake, IV Titration 2000 Amount Sodium Chloride 0.9% 1, 1000 000 ml @ 999 mls/hr IV . Q1H1M ONE Rx#:[id number] Sodium Chloride 0.9% 1, 1000 000 ml @ 999 mls/hr IV . Q1H1M ONE Rx#:[id number] Output: Urine 380 432 430 Other: Voiding Method Indwelling Catheter Indwelling Catheter Indwelling Catheter # Bowel Movements 1 - Exam GENERAL: The patient is alert and oriented x3, not in any acute distress. Well developed, well nourished. HEENT: Pupils are round and equally reacting to light. EOMI. No scleral icterus. No conjunctival pallor. Normocephalic, atraumatic. No pharyngeal erythema. No thyromegaly. CARDIOVASCULAR: S1 and S2 present. No murmurs, rubs, or gallops. PULMONARY: Chest is clear to auscultation, no wheezing or crackles. ABDOMEN: Soft, nontender, nondistended, normoactive bowel sounds. No palpable organomegaly. MUSCULOSKELETAL: No joint swelling or deformity. EXTREMITIES: No cyanosis, clubbing, or pedal edema. NEUROLOGICAL: Gross neurological examination did not reveal any focal deficits. SKIN: No rashes. No petechiae - Labs CBC & Chem 7: 12/28/19 04:12/28/19 04:29 Labs: Abnormal Lab Results - Last 24 Hours (Table) 12/27/19 12/27/19 12/27/19 Range/Units 07:28 17:09 21:38 RBC (4.30-5.90) m/uL Hgb (13.0-17.5) gm/dL Hct (39.0-53.0) % Plt Count (150-450) k/uL Lymphocytes # (1.0-4.8) k/uL Carbon Dioxide (22-30) mmol/L BUN (9-20) mg/dL Creatinine (0.66-1.25) mg/dL Glucose (74-99) mg/dL POC Glucose (mg/dL) 254 H 195 H (75-99) mg/dL Hemoglobin A1c 9.1 H (4.0-6.0) % Plasma Lactic Acid Gutierrez (0.7-2.0) mmol/L Calcium (8.4-10.2) mg/dL 12/28/19 12/28/19 12/28/19 Range/Units 04:29 04:29 04:29 RBC 3.08 L (4.30-5.90) m/uL Hgb 8.5 L (13.0-17.5) gm/dL Hct 25.2 L (39.0-53.0) % Plt Count 136 L (150-450) k/uL Lymphocytes # 0.3 L (1.0-4.8) k/uL Carbon Dioxide 15 L (22-30) mmol/L BUN 179 H* (9-20) mg/dL Creatinine 7.96 H* (0.66-1.25) mg/dL Glucose 106 H (74-99) mg/dL POC Glucose (mg/dL) (75-99) mg/dL Hemoglobin A1c (4.0-6.0) % Plasma Lactic Acid Gutierrez 0.6 L (0.7-2.0) mmol/L Calcium 5.9 L* (8.4-10.2) mg/dL 12/28/19 12/28/19 12/28/19 Range/Units 06:49 11:00 11:57 RBC (4.30-5.90) m/uL Hgb (13.0-17.5) gm/dL Hct (39.0-53.0) % Plt Count (150-450) k/uL Lymphocytes # (1.0-4.8) k/uL Carbon Dioxide (22-30) mmol/L BUN (9-20) mg/dL Creatinine (0.66-1.25) mg/dL Glucose (74-99) mg/dL POC Glucose (mg/dL) 151 H 193 H 190 H (75-99) mg/dL Hemoglobin A1c (4.0-6.0) % Plasma Lactic Acid Gutierrez (0.7-2.0) mmol/L Calcium (8.4-10.2) mg/dL Microbiology - Last 24 Hours (Table) 12/26/19 20:20 Blood Culture - Preliminary Blood No Growth after 24 hours Assessment and Plan Assessment: Right lower lobe pneumonia, complicated with a right pneumothorax Acute kidney injury on chronic kidney disease with hyperkalemia Elevated troponin worsening from chronically elevated troponin Positive occult blood in stool acute on chronic Chronic systolic congestive heart failure Acute metabolic acidosis Atrial fibrillation, recommend control. Was on Eliquis on admission Diabetes mellitus Hypertension Hyperlipidemia Chronic kidney disease stage III Coronary artery disease status post CABG in 12/2018 Gastroesophageal reflux disease Osteoarthritis Iron deficiency anemia Plan: this is a pleasant 79 years old male who presents with multiple problems including pneumonia, acute kidney injury, elevated troponin and heart failure. continue with antibiotics, follow-up culture. Solution Analyst recommended to hold anticoagulation. Monitor pneumothorax. Monitor creatinine and nephrology following the case. Several consults on the case already been called including cardiology, pulmonary and nephrology. Hold insulin and continue with insulin sliding scale Labs and medication were reviewed.. Continue same treatment. Continue with symptomatic treatment. Resume home medication. Monitor lytes and vitals. DVT and GI prophylaxis. Further recommendations of the clinical course of the patient DVT prophylaxis: Subcutaneous heparin GI Prophylaxis: Ppi Prognosis is guarded
[2019-12-28 20:16] LABS: Glucose,Whole Blood 244 mg/dL (75-99)
[2019-12-28] MEDS: MELATONIN 3 MG TABLET PO SCH (21:36)
[2019-12-28] MEDS: AZITHROMYCIN 500 MG in SODIUM CHLORIDE 0.9% 250 ML IVPB SCH (21:36)
[2019-12-29] MEDS: ONDANSETRON 4 MG/2 ML VIAL IVP PRN ×2 (00:01→22:03)
[2019-12-29] MEDS: PROMETHAZINE INJ 6.25 MG in SODIUM CHLORIDE 0.9% 50 ML IVPB PRN (04:59)
[2019-12-29 05:55] LABS: Basophils % (A) 0 %; Eosinophils # (A) 0.2 k/uL (0-0.7); Eosinophils % (A) 3 %; HCT 28.3 % (39.0-53.0); HGB 9.2 gm/dL (13.0-17.5); Lymphocytes # (A) 0.2 k/uL (1.0-4.8); Lymphocytes % (A) 3 %; MCH 27.1 pg (25.0-35.0); MCHC 32.6 g/dL (31.0-37.0); MCV 83.3 fL (80.0-100.0); Mean Platelet Volume 7.3; Monocytes # (A) 0.5 k/uL (0-1.0); Monocytes % (A) 7 %; Neutrophils # (A) 6.1 k/uL (1.3-7.7); Neutrophils % (A) 85 %; Platelet Count 117 k/uL (150-450); RDW 14.7 % (11.5-15.5); WBC 7.2 k/uL (3.8-10.6)
[2019-12-29] MEDS: HYDROcodone/APAP 5-325MG 1 EACH TAB PO PRN (06:05)
[2019-12-29 06:07] LABS: Albumin 2.9 g/dL (3.5-5.0); Potassium 3.5 mmol/L (3.5-5.1); Total Bilirubin 0.2 mg/dL (0.2-1.3); Total Protein 5.4 g/dL (6.3-8.2)
[2019-12-29 06:25] LABS: Glucose,Whole Blood 202 mg/dL (75-99)
[2019-12-29 06:26] LABS: Calcium 5.6 mg/dL (8.4-10.2)
[2019-12-29] MEDS: ASCORBIC ACID 500 MG TAB PO SCH ×2 (06:29→18:18)
[2019-12-29] MEDS: INSULIN ASPART (NovoLOG) 100 UNIT/ML VIAL SQ SCH ×4 (06:29→21:02)
[2019-12-29] MEDS ORDERED: CALCIUM GLUCONATE 1 GM in SODIUM CHLORIDE 0.9% 100 ML IVPB ONE (07:00)
--- NOTE | 2019-12-29 07:42 | PN ---
PROGRESS NOTE Mr. Brice is a 79-year-old male who presented with symptoms of progressive dyspnea, was found to have severe hyperkalemia with worsening renal function. He has a history of coronary artery disease, status post coronary artery bypass grafting, history of atrial flutter and atrial fibrillation in the past. He continued to be dyspneic, nauseated. He had no chest pain. He denies any dizziness. He denies any palpitation. He continues to have mild cough. His blood pressure and heart rate have been under good control. He continues to be in atrial flutter and continues to be on aspirin once a day, hydralazine 25 mg twice a day, Flomax, sodium bicarb, Protonix, metoprolol tartrate 25 mg twice a day, iron. PHYSICAL EXAMINATION: Blood pressure 124/60 with the heart rate in the 60s. LUNGS: With crackles, more noted on the right base. HEART: Irregular, irregular, S1, S2. No S3 with a systolic murmur. No diastolic murmur. No rub. ABDOMEN: Soft, nontender. Positive bowel sounds. No organomegaly. EXTREMITIES: No edema. LAB DATA: Lab data revealed BUN and creatinine 169 and 7.38. Potassium is 3.5. Hemoglobin of 9.2. IMPRESSION: 1. Respiratory failure with element of pneumonia with infiltrate in the right lower lobe with evidence of consolidation. Patient has a small right apical pneumothorax that has been stable. 2. Atrial flutter. The patient has been anticoagulated as an outpatient but the anticoagulation is on hold at this point because of the gastrointestinal bleeding on presentation. 3. Acute on chronic kidney disease with stage 4 and hyperkalemia on presentation. 4. History of coronary artery disease. 5. Jeyr-[id number] impairment of left ventricular systolic function by echocardiography done recently. 6. Diabetes. 7. Hypertension. 8. Hyperlipidemia. RECOMMENDATION: From the cardiac standpoint, we will continue on the present therapy. Will follow his renal function. We will continue to hold the anticoagulation at this time until he is stabilized from the issue of the GI bleeding. Depending on his progress, further recommendation will be made. MMODL / IJN: [id number] /
--- NOTE | 2019-12-29 07:44 | XR ---
EXAMINATION TYPE: XR chest 1V portable DATE OF EXAM: 12/29/2019 Comparison: 12/28/2019 Clinical History: 79-year-old male follow-up pneumothorax Findings: Median sternotomy wires and post-CABG clips in the mediastinum. Heart mildly enlarged with continued small effusions and prominent bibasilar opacification, greater t paulino left, increasing on left. Small right apical pneumothorax redemonstrated measuring 2.0 cm from the apical margin versus 1.5 cm, previously. A pleural edge may also be present at the medial right upper lobe as seen previously. Impression: 1. Continued small right apical pneumothorax, minimally larger at 2.0 cm versus 1.5 cm, previously. 2. Continued cardiomegaly and small effusions. Prominent bibasilar consolidation also persists, now s lightly worsening on the left.
[2019-12-29] MEDS: HEPARIN SODIUM,PORCINE 5,000 UNIT/ML 1 ML VIAL SQ SCH ×2 (09:44→20:59)
[2019-12-29] MEDS: TAMSULOSIN 0.4 MG CAP.ER.24H PO SCH ×2 (09:44→20:59)
[2019-12-29] MEDS: CALCIUM CARBONATE 500 MG CHEWABLE PO SCH ×2 (09:44→20:58)
[2019-12-29] MEDS: PANTOPRAZOLE 40 MG/10 ML VIAL IVP SCH (09:44)
[2019-12-29] MEDS: hydrALAZINE HCL 25 MG TAB PO SCH ×2 (09:45→21:00)
[2019-12-29] MEDS: ASPIRIN 81 MG PO SCH (09:46)
[2019-12-29] MEDS: METOPROLOL TARTRATE 25 MG TAB PO SCH ×2 (09:46→20:59)
[2019-12-29] MEDS: FERROUS SULFATE 325 MG TAB PO SCH ×2 (09:47→20:59)
[2019-12-29] MEDS: FINASTERIDE 5 MG TAB PO SCH (09:59)
[2019-12-29] MEDS: PRAVASTATIN SODIUM 80 MG TAB PO SCH (09:59)
[2019-12-29] MEDS: SODIUM BICARBONATE TAB 650 MG TAB PO SCH ×2 (10:01→21:05)
--- NOTE | 2019-12-29 11:27 | PN ---
PROGRESS NOTE Patient is seen for followup for acute kidney injury, mainly ATN and associated with significant hypovolemia. Patient is maintained on IV fluids. Renal function continues to improve on a daily basis and I discussed again with the patient regarding dialysis and he states that he wants to hold off and he states he is feeling better. His creatinine is down to 7.38 today from 9.26 on initial admission. Urine output at about 30-40 mL an hour. Patient is maintained on bicarb drip as well as saline. PHYSICAL EXAMINATION: He is comfortable, awake, alert, oriented x3, not in any acute distress. Blood pressure 121/65, heart rate 69 per minute, he is afebrile. Examination of the heart S1, S2. Examination of lungs decreased breath sounds at the bases. Abdomen is soft, nontender. Examination of the lower extremities shows no evidence of edema. ELEMENTARY SCHO[employer] PROFESSIONAL exam shows patient is moving all 4 extremities. Grossly intact. LABS: Show sodium 137, potassium 3.5, chloride 99, CO2 is 21, BUN was 69, serum creatinine 7.38, calcium was 5.6, vitamin D is pending. ASSESSMENT: 1. Acute kidney injury ATN, mainly associated with significant hypovolemia, maintained on IV fluids, renal function slowly improving. Patient does not want to have hemodialysis treatments, which I have told him will most likely be temporary since he has urine output and renal function continues to improve. This will help him feel better as he does seem to be having symptoms of uremia. At this time, patient wants to hold off as he states that he is better than on initial admission. We will continue to watch on a daily basis. Continue to avoid nephrotoxic agents and continue IV fluids. 2. Severe metabolic acidosis, anion gap, maintained on bicarb drip and improving. 3. Severe hypovolemia, currently improving. 4. Mental status changes, currently improved. 5. Hypocalcemia maintained on calcium supplementation. Rule out vitamin D deficiency, level is still pending. 6. Anemia, no active bleeding noted. Patient is started on Aranesp. 7. Chronic kidney disease stage IV. Previous creatinine 2.1-2.4 mg/dL. 8. Right lower lobe pneumonia, maintained on antibiotics with new onset right apical pneumothorax 15%-20%. 9. History of congestive heart failure, currently not in failure. 10.Cardiomyopathy, ejection fraction 45%. 11.Chronic atrial fibrillation maintained on Eliquis. PLAN: Continue IV fluids. Continue IV bicarb for one more day. We can discontinue the saline and just maintain patient on 80 mL an hour of the bicarb drip. Repeat labs in a.m. and continue to avoid nephrotoxic agents. MMODL / IJN: [id number] /
--- NOTE | 2019-12-29 12:18 | CT ---
"EXAMINATION TYPE: CT chest wo con DATE OF EXAM: 12/29/2019 COMPARISON: 02/09/2019 HISTORY: RLL opacity CT DLP: 545.[address] of the chest was performed with lung and mediastinal window settings submitted. The la ck of contrast limits evaluation of the vascular, mediastinal and parenchymal structures including th e upper abdomen. LUNGS: There is an estimated 20% right-sided pneumothorax identified with right apical and right basi lar components. Moderate to large bilateral pleural effusions are identified right greater than left. W mid lung zone and lower lobe infiltrates are seen bilaterally. Correlate for pneumonia. Masslike i nfiltrate left lower lobe measures 2.5 cm on axial image 36. MEDIASTINUM/MARYJANE: There is evidence of cardiomegaly. Coronary artery calcifications seen. Atheromatou s change thoracic aorta without aneurysm. Calcified hilar and mediastinal lymph nodes from prior gran ulomatous disease. UPPER ABDOMEN: No significant abnormality is seen. OTHER: No significant other abnormality. IMPRESSION: 1. Estimated 20% right-sided pneumothorax. 2. Moderate to large bilateral pleural effusions with perihilar and basilar infiltrates. Masslike inf iltrate left lower lobe. Continued follow-up and clinical correlation advised. A Cla[place]orne level critical message alert has been initiated for Collin Félixcharline via the [employer] | Critical Results System on 12/29/2019 12:15 PM. This message alert has been sent to Collin Jacob via the preferences provided by the clinician for the receipt of Radiology Critical Findings. Melon Power e ID [id number]."
[2019-12-29 12:33] LABS: Glucose,Whole Blood 229 mg/dL (75-99)
[2019-12-29] MEDS: AMMONIUM LACTATE 12% CREAM 140 GM TUBE TOPICAL SCH ×2 (12:55→21:04)
--- NOTE | 2019-12-29 13:50 | P.PN ---
Subjective Progress Note Date: 12/29/19 79-year-old male patient who came into the emergency department complaining of worsening shortness of breath. He denied having any significant cough or sputum production. Denied having any sick contacts including exposure to COVID 19. He was however getting more short of breath and addition to that he was coughing out some thick sputum. Denied having any chest pain. No nausea. No vomiting. No abdominal pain. He has multiple medical problems and comorbidities in summary, the patient has history of chronic kidney disease stage 3-4, coronary artery disease with previous bypass surgery that was done in December 2018, diabetes mellitus with history of diabetic nephropathy, hypertension, hyperlipi demia, chronic atrial fibrillation and chronic congestion heart failure. His workup in emergency department revealed the following He had a chest x-ray that showed better pleural effusion in addition to a right lower lobe consolidation. EKG showed no acute ST segment elevation or depression. There was a right bundle branch block pattern with a sinus rhythm His blood work showed an acute on top of chronic kidney injury. His creatinine was up to 8.3 with a potassium level of 5.4 in the sodium level [id number]. Note that his baseline creatinine was as high as 2.4. He did have some mild troponin elevation with levels being at 0.08, 0.11 and 0.25 respectively His occult stool was also positive His blood gases showed metabolic acidosis with a pH of 7.11 and a pCO2 of 22 and pO2 of 118 The patient was seen in intensive care unit. Despite his metabolic acidosis, the patient was awake and alert and following commands and answering course appropriately. Clinically , he was quite dry including grasses mucous membranes without any significant edema in lower extremities bilaterally. He was given IV fluids and recommended giving another liter of bolus and maintaining him on a bicarb infusion with D5 and 150 mEq of sodium bicarbonate to be relatively 5 mL an hour. He was started on broad-spectrum antibiotics. He was given accommodation Rocephin and Zithromax. I held his diuretics for now. His echocardiogram from previous evaluations have shown an ejection fraction of 40- 45% and his last cardiac catheterization was done in November 2018 showing GONZALEZ to LAD, saphenous vein graft to diagonal branch and acute marginal branch and left PDA. He had essentially nonocclusive disease. He has mild aortic stenosis and moderate mitral regurgitation. On 12/28/2019, the patient is being seen for a follow-up in the intensive care unit. Note that the patient was being treated for right lower lobe pneumonia/bilateral pneumonia and the patient was given a broad-spectrum antibiotic coverage. He was also in acute on chronic kidney injury and the patient was resuscitated IV fluids. On today's evaluation, the patient is quite comfortable and he is still on room air oxygen. His chest x-ray from today shows a 15th 20% pneumothorax on the right. Note that this was a spontaneous pneumothorax and the patient did not have any fall, trauma, or any other surgical procedures done on the right side of the chest. The patient is on a D5 and 150 mg of bicarb infusion rate of 75 mL's an hour. Urine output is in order of 30 mL an hour. The patient remains in atrial fibrillation with a controlled rate. The white cell count is at 7.8 with hemoglobin 8.5. White cell count is improved. Hemoglobin dropped however this was essentially a adequate study for now nontender the previous value was hemoconcentrated. The patient's BUN is on 279. The patient's creatinine is down to 7.9. The patient's serum bicarbs up to 35. I added also normal saline at 75 an hour. The patient me what is still on a broad-spectrum antibiotic coverage utilizing a combination of Rocephin and Zithromax. He is afebrile. I decided not to put any chest tube on the right side as the patient is quite comfortable and there is no evidence of any tension. Nevertheless, I decided to obtain a follow-up chest x-ray at around noontime. This will be needed to monitor the right-sided pneumothorax. On 12/29/2019, patient is being seen for a follow-up. The patient has bilateral pneumonia, respiratory failure, right-sided pneumothorax which has remained stable. The patient has been on room air oxygen. He continues to be on IV fluid was D5 water and 150 mEq of sodium bicarbonate running at 75 mL an hour in addition to a normal saline running at 75 Christy hour. Renal function continues to improve. Creatinine continues to improve. The patient remains on a combination of Rocephin and Zithromax regarding the right lower lobe pneumonia. Cultures of been negative thus far. Nephrotic syndrome the case regarding the acute kidney injury. Today's white cell count is at 7.2. Hemoglobin stable at 9.2. BUN is still elevated at 168 with a creatinine of 7.3 although this is improved compared to yesterday. The neck fluid balance has been +2.9 L 40 yesterday and +3.2 L over the past shift. Nephrology is on the case. Based on the persistent abnormality in the right lower lung area, I proceeded with a CAT scan of the chest and the CAT scan showed a 20% pneumothorax on the right, moderate to large bilateral pleural effusion with perihilar and basilar infiltrates and a masslike infiltration in the left lower lobe. Discussed the findings with interventional radiology. May consider a pigtail catheter drain the fluid and the pneumothorax and regular chest tube. Objective - Vital Signs Vital signs: Vital Signs Temp 98.1 F 12/29/19 12:00 Pulse 91 12/29/19 12:00 Resp 14 12/29/19 12:00 BP 108/57 12/29/19 12:00 Pulse Ox 93 L 12/29/19 12:00 Intake & Output 12/28/19 12/29/19 12/29/19 18:59 06:59 18:59 Intake Total 1825 2475 685 Output Total 620 387 250 Balance 1205 2088 435 Weight 79.1 kg 81.2 kg Intake: IV 1825 1800 685 Calcium Gluconate 1 gm In 100 Sodium Chloride 0.9% 100 ml @ 100 mls/hr IVPB ONCE ONE Rx#:[id number] Dextrose 5% in Water 1, 75 000 ml @ 125 mls/hr IV . [id number] PEARL with Sodium Bicarb (1 Meq/ml) 150 ml Rx#:[id number] Dextrose 5% in Water 1, 825 900 460 000 ml @ 80 mls/hr IV . [id number] PEARL with Sodium Bicarb (1 Meq/ml) 150 ml Rx#:[id number] Sodium Chloride 0.9% 1, 825 900 225 000 ml @ 75 mls/hr IV . [id number] PEARL Rx#:[id number] Intake, IV Titration 600 Amount Azithromycin 500 mg In 500 Sodium Chloride 0.9% 250 ml @ 250 mls/hr IVPB HS [facility] Rx#:[id number] Promethazine Inj 6.25 mg 50 In Sodium Chloride 0.9% 50 ml @ 200 mls/hr IVPB Q6HR PRN Rx#:[id number] cefTRIAXone 1 gm In 50 Sodium Chloride 0.9% 50 ml @ 100 mls/hr IVPB HS [facility] Rx#:[id number] Oral 75 Output: Urine 620 387 250 Other: Voiding Method Indwelling Catheter Indwelling Catheter # Bowel Movements 1 1 - Exam GENERAL: The patient is alert and oriented x3, not in any acute distress. Well developed, well nourished. No significant signs of any respiratory distress. The patient is not using excessive muscle breathing. I was his condition essentially the same compared to yesterday. Still on room air oxygen. Head exam was generally normal. There was no scleral icterus or corneal arcus. Mucous membranes were moist. HEENT: Pupils are round and equally reacting to light. EOMI. No scleral icterus. No conjunctival pallor. Normocephalic, atraumatic. No pharyngeal erythema. No thyromegaly. The patient seems to be quite dehydrated and the patient has dry mucous membranes. CARDIOVASCULAR: Irregular S1 and S2 present. No murmurs, rubs, or gallops. The patient thoracotomy scar over the anterior chest area with lidocaine and intact. PULMONARY: The patient has crackles along the right side of the lung. Breast on the quite diminished bilaterally especially in the lung bases. ABDOMEN: Soft, nontender, nondistended, normoactive bowel sounds. No palpable organomegaly. MUSCULOSKELETAL: No joint swelling or deformity. EXTREMITIES: No cyanosis, clubbing, or pedal edema. NEUROLOGICAL: Gross neurological examination did not reveal any focal deficits. SKIN: No rashes. No petechiae - Labs CBC & Chem 7: 12/29/19 05:25 12/29/19 05:25 Labs: Abnormal Lab Results - Last 24 Hours (Table) 12/27/19 12/28/19 12/28/19 Range/Units 07:28 16:39 20:14 RBC (4.30-5.90) m/uL Hgb (13.0-17.5) gm/dL Hct (39.0-53.0) % Plt Count (150-450) k/uL Lymphocytes # (1.0-4.8) k/uL Carbon Dioxide (22-30) mmol/L BUN (9-20) mg/dL Creatinine (0.66-1.25) mg/dL Glucose (74-99) mg/dL POC Glucose (mg/dL) 192 H 244 H (75-99) mg/dL Calcium (8.4-10.2) mg/dL TIBC 193 L (228-460) ug/dL % Saturation 76.17 H (15.00-50.00) Alkaline Phosphatase (38-126) U/L Total Protein (6.3-8.2) g/dL Albumin (3.5-5.0) g/dL Vitamin D 25-Hydroxy 12.7 L (30.0-100.0) ng/mL 12/29/19 12/29/19 12/29/19 Range/Units 05:25 05:25 06:24 RBC 3.40 L (4.30-5.90) m/uL Hgb 9.2 L (13.0-17.5) gm/dL Hct 28.3 L (39.0-53.0) % Plt Count 117 L (150-450) k/uL Lymphocytes # 0.2 L (1.0-4.8) k/uL Carbon Dioxide 21 L (22-30) mmol/L BUN 169 H* (9-20) mg/dL Creatinine 7.38 H* (0.66-1.25) mg/dL Glucose 132 H (74-99) mg/dL POC Glucose (mg/dL) 202 H (75-99) mg/dL Calcium 5.6 L* (8.4-10.2) mg/dL TIBC (228-460) ug/dL % Saturation (15.00-50.00) Alkaline Phosphatase 189 H (38-126) U/L Total Protein 5.4 L (6.3-8.2) g/dL Albumin 2.9 L (3.5-5.0) g/dL Vitamin D 25-Hydroxy (30.0-100.0) ng/mL 12/29/19 Range/Units 12:32 RBC (4.30-5.90) m/uL Hgb (13.0-17.5) gm/dL Hct (39.0-53.0) % Plt Count (150-450) k/uL Lymphocytes # (1.0-4.8) k/uL Carbon Dioxide (22-30) mmol/L BUN (9-20) mg/dL Creatinine (0.66-1.25) mg/dL Glucose (74-99) mg/dL POC Glucose (mg/dL) 229 H (75-99) mg/dL Calcium (8.4-10.2) mg/dL TIBC (228-460) ug/dL % Saturation (15.00-50.00) Alkaline Phosphatase (38-126) U/L Total Protein (6.3-8.2) g/dL Albumin (3.5-5.0) g/dL Vitamin D 25-Hydroxy (30.0-100.0) ng/mL Microbiology - Last 24 Hours (Table) 12/26/19 20:20 Blood Culture - Preliminary Blood No Growth after 48 hours Assessment and Plan Plan: 1 right lower lobe pneumonia. Likely bacterial. Covid 19 infection was ruled out basilar rapid screen. The patient also has bilateral pleural effusions, small, consistent with underlying history of CHF. The pro-calcitonin level is mildly elevated at 0.51. On 12/29/2019, a CAT scan of the chest was done and it showed a 20% pneumothorax on the right in addition to moderate-sized bilateral pleural effusion addition to a mass like infiltrate in left lung base. I think the overall picture is still consistent with CHF and pneumonia in addition to 20% pneumothorax on the right. The patient remains on examination Rocephin and Zithromax. The patient is on no diuretics for now as the patient is recovering from acute kidney injury. In fact, the patient is being given IV fluids regarding acute kidney injury. 2 acute on chronic kidney disease. The patient has stage III to 4 chronic kidney disease and the patient has developed acute kidney injury with significant elevation in creatinine and development of an underlying non-anion gap metabolic acidosis. The patient's metabolic acidosis improving as the patient is receiving bicarb infusion. Renal function is also improving and that has been progressive improvement in the renal function and creatinine is down to 7.38. Nevertheless, this has been a slow recovery in the renal function. He is producing urine output in the order of 30-40 mL an hour. The serum bicarb is up to 21 and the patient continues to be on a bicarb infusion in addition to a normal saline infusion. 3 moderate sized bilateral pleural effusions, in addition to a right sided pneumothorax around 20% 4 CHF with ejection fraction 45% and mild aortic stenosis and moderate mitral regurgitation. Echo to be repeated. The patient has mild systolic heart failure 5 chronic atrial fibrillation maintained on Eliquis on outpatient basis, and the patient continues to be in atrial fibrillation with a controlled rate. 6 diabetes mellitus 7 hypertension 8 hyperlipidemia 9 coronary artery disease with previous bypass surgery that was performed in December 2018 10 history of iron deficiency anemia with a positive occult blood in the stool 11 metabolic acidosis improved on bicarb infusion 12 troponin leak, likely attributed to an acute STEMI, consider troponin leak secondary to above-mentioned comorbidities. 13 hypocalcemia, replaced plan Continue broad-spectrum antibiotics with a combination of Rocephin and Zithromax Continue IV fluids and the patient is on D5 with 150 meq of sodium bicarbonate the rate of 75 mL an hour. I'm also going to add normal saline at the rate of 75 mL's an hour Discussed the case with interventional radiology. May consider insertion of a pigtail catheter to drain the right-sided pleural effusion and a pneumothorax. No need for diuretics for now Monitor renal function, the creatinine is slowly improving. Monitor electrolytes Hold anticoagulation forwith underlying acute kidney injury on top of chronic kidney failure. Note that the patient was taken Eliquis on outpatient basis Repeat chest x-ray at noontime to monitor the right-sided pneumothorax and co nsider insertion of a chest tube if the pneumothorax as getting worse. The The cultures all negative Keep the Torres catheter in place amount of urine output Heparin 5000 units subcu every 12 hours for DVT prophylaxis Monitor the blood sugar and put the patient on sliding scale coverage We'll continue to follow make further recommendations based on her progress. Condition is critical and this evaluation was done in 30 minutes. During this time, the case was discussed with the family and with the rest of the consultants including cardiology and nephrology. Time with Patient: Greater than 30
--- NOTE | 2019-12-29 17:00 | XR ---
EXAMINATION TYPE: XR chest 1V portable DATE OF EXAM: 12/29/2019 COMPARISON: 12/29/2019 INDICATION: Pneumothorax, short of breath TECHNIQUE: Single frontal view of the chest is obtained. FINDINGS: The heart size is enlarged. The pulmonary vasculature is normal. Previous right pneumothorax has resolved. Some mild infiltrate is at the bilateral lung bases. Sterno ambrocio wires are in the midline. IMPRESSION: 1. Resolution of previous right apical pneumothorax. 2. Mild infiltrates at the bilateral lung bases. Correlate for atelectasis or resolving pneumonia.
--- NOTE | 2019-12-29 17:12 | P.PCN ---
Date of Procedure: 12/29/19 Preoperative Diagnosis: Right-sided hydropneumothorax Postoperative Diagnosis: Same Procedure(s) Performed: Thoracentesis Anesthesia: local Surgeon: Collin Jacob Estimated Blood Loss (ml): 0 Pathology: other Condition: critical Disposition: ICU Operative Findings: This procedure was done in the intensive care unit. The procedure including the potential complications were explained to the patient. The patient has a stable right-sided pneumothorax and a moderate-sized right-sided pleural effusion. For that reason, I decided to proceed with a thoracentesis which would be therapeutic in terms of evacuating the pleural effusion and the pneumothorax This procedure was done at the bedside. The patient was positioned in the usual fashion with arms extended and a bedside table. The right lower chest was cleared using ChloraPrep. Intercostal space between the eighth and the ninth of was palpated. The skin was infused with 1% lidocaine and following that an incision was done using a scalpel and a thoracentesis catheter was inserted successfully the right hemithorax and a total of 900 mL of pleural fluid and air was aspirated from the right lung. The fluid was dark turbid yellowish in color. The patient encounter some shoulder pain with reexpansion of the right lung. The air was also evacuated. At the completion of the procedure, the patient had a chest x-ray that showed the patient the right lung with obvious decrease in the size of the right-sided pneumothorax. The fluid will be sent for analysis. No bedside complications.
[2019-12-29 17:20] LABS: Glucose,Whole Blood 284 mg/dL (75-99)
[2019-12-29] MEDS: DEXTROSE 5% IN WATER 1,000 ML with SODIUM BICARB (1 MEQ/ML) 150 ML IV SCH (18:17)
[2019-12-29 18:46] LABS: Appearance,BF Cloudy; Color,BF Orange; Nucleated Cells, Body Fluid 1100 /uL; RBC, Body Fluid 20500 /uL
[2019-12-29 19:06] LABS: Mononuclear WBC,Body Fluid 36 %; Polynuclear WBC,Body Fluid 64 %; Total Cells Counted,Body Fluid 100
[2019-12-29 20:20] LABS: Glucose,Whole Blood 255 mg/dL (75-99)
[2019-12-29] MEDS: MELATONIN 3 MG TABLET PO SCH (20:59)
[2019-12-29] MEDS: INSULIN DETEMIR (LEVEMIR) 100 UNIT/ML SYR SQ SCH (21:02)
--- NOTE | 2019-12-29 21:02 | P.PN ---
Subjective This is a pleasant 79 years old male with past medical history of systolic congestive heart failure, atrial fibrillation, was on Eliquis, hypertension, hyperlipidemia, chronic kidney disease stage III, iron deficiency anemia, coronary artery disease status post CABG in 12/2018 , diabetes mellitus, GERD, osteoarthritis He follows up from the [facility], master glazier Dr. Strange admission nurse Dr. Epps Presents because of dyspnea for about one week and feeling cold walking in the cold weather going to his doctor appointment, his dyspnea gradually got worse associated with little cough and that'll clear phlegm. No chest pain, no abdom inal pain, no nausea vomiting. No diarrhea Patient denies smoking, alcohol or illicit drugs On admission patient is afebrile, saturating 96% on room air, breathing rate at 9-14 BPM, blood pressure 118/63. Labs showing leukocytosis of 23.2-14.6k, with base of the Kelly is within normal limits. Hemoglobin is 9.9 with baseline around 9-12. PTT more than 200, sodium 137, potassium 5.4, creatinine 8.3, with baseline 1.7-2.4. Potassium on presentation was 6.7, coming down to 5.4, glucose 193-to 34, liver enzymes and bilirubin not elevated, elevated troponin at 0.08, 0.11 and 0.25, baseline creatinine is elevated at 0.04-0.09. Occult blood stool was positive Chest x-ray: Right lower lobe airway disease, possible CHF. EKG: Sinus rhythm at 70 bpm with right bundle-branch block, QTC 546 Clinical Safety Specialist already evaluated the patient. They recommended to continue with diuresis and follow-up renal function and chest x-ray. On admission he was started on Rocephin and Zithromax and sodium bicarb at 75 mL/h on presentation his ABG showing pH of 7.1, pCO2 of 22 and pO2 of 118 so patient was admitted to the ICU for further monitoring Today patient got 1 L of normal saline for possible sepsis although there was some suspicion of fluid in the chest x-ray by admission nurse. He is not on IV fluids currently His Eliquis was held because was positive FOBT, however we will start him on subcutaneous heparin for DVT prophylaxis given his hemoglobin low at 9.9, but we will keep monitor his hemoglobin closely. Patient was on insulin long-acting 10 units daily, withheld her that and continue with insulin sliding scale, as his sugar was controlled this morning 12/28/2019 Patient lying in bed comfortable, no distress, no respiratory distress especially patient today found to have right pneumothorax. Still been treated with Rocephin and Zithromax for his pneumonia. Conservation Technician team R following the case closely for acute kidney injury on chronic kidney disease, his creatinine is slightly went down today to 7.9, however if no improvement patient might need hemodialysis. Occult blood in the stool was positive with slight drop in hemoglobin. Patient Eliquis was stopped and continue with subcutaneous heparin for DVT prophylaxis. He is hemodynamically stable. Cardiology are following the case closely for these troponin, acute on chronic. Continue with conservative treatment for now. DrShannon position was stopped 12/29/2019 Patient is respiratory distress, he was sitting in bed feeling comfortable with little pain in his shoulder. he is hemodynamically stable, with a cat scan showing moderate to large right hydropneumothorax and he underwent thoracentesis with 900 ml of fluid was taken out. at this post stopped. his creatinine only slightly trending down from 7.9 down to 7.3, hemoglobin is stable at 9.2. patient is followed closely by nephrology team who recommended to continue with same management with bicarb drip and follow-up labs in the morning Review of systems CONSTITUTIONAL: No fever, no malaise, no fatigue. HEENT: No recent visual problems or hearing problems. Denied any sore throat. CARDIOVASCULAR: No orthopnea, PND, no palpitations, no syncope. GASTROINTESTINAL: No diarrhea, no nausea, no vomiting, no abdominal pain. Normoactive bowel sounds. NEUROLOGICAL: No headaches, no weakness, no numbness. HEMATOLOGICAL: Denies any bleeding or petechiae. GENITOURINARY: Denies any burning micturition, frequency, or urgency. MUSCULOSKELETAL/RHEUMATOLOGICAL: Denies any joint pain, swelling, or any muscle pain. ENDOCRINE: Denies any polyuria or polydipsia. Active Medications Generic Name Dose Route Start Last Admin Trade Name Freq PRN Reason Stop Dose Admin Hydrocodone Bitart/Acetaminophen 1 each 12/29/19 05:53 12/29/19 06:05 [place] 5-325 PO 1 each Q6HR PRN Administration Pain Albuterol/Ipratropium 3 ml 12/27/19 00:59 Duoneb 0.5 Mg-3 Mg/3 Ml Soln INHALATION RT-Q4H PRN Shortness Of Breath Ascorbic Acid 500 mg 12/27/19 07:30 12/29/19 18:18 Vitamin C PO 500 mg BID-W/MEALS PEARL Administration Aspirin 81 mg 12/28/19 09:00 12/29/19 09:46 Aspirin PO 81 mg DAILY PEARL Administration Azithromycin 500 mg 12/29/19 21:00 Zithromax PO HS PEARL Calcium Carbonate/Glycine 1,000 mg 12/29/19 09:00 12/29/19 09:44 Tums PO 1,000 mg BID PEARL Administration Darbepoetin Samson 60 mcg 12/28/19 17:00 12/28/19 17:48 Aranesp SQ 60 mcg Q7D PEARL Administration Ferrous Sulfate 325 mg 12/27/19 09:00 12/29/19 09:47 Feosol PO 325 mg BID PEARL Administration Finasteride 5 mg 12/27/19 09:00 12/29/19 09:59 Proscar PO 5 mg DAILY PEARL Administration Heparin Sodium (Porcine) 5,000 unit 12/27/19 10:30 12/29/19 09:44 Heparin SQ 5,000 unit Q12HR PEARL Administration Hydralazine HCl 25 mg 12/27/19 09:00 12/29/19 09:45 Apresoline PO 25 mg BID PEARL Administration Sodium Chloride 1,000 mls @ 20 mls/hr 12/26/19 22:00 12/28/19 23:09 Saline 0.9% IV Not Given .Q24H PEARL Ceftriaxone Sodium 1 gm/ 50 mls @ 100 mls/hr 12/27/19 21:00 12/28/19 23:09 Sodium Chloride IVPB 100 mls/hr HS PEARL Administration Sodium Bicarbonate 150 ml/ 1,150 mls @ 80 mls/hr 12/28/19 11:30 12/29/19 18:17 Dextrose/Water IV 80 mls/hr .[id number] PEARL Administration Promethazine HCl 6.25 mg/ 50.25 mls @ 200 mls/hr 12/29/19 03:17 12/29/19 04:59 Sodium Chloride IVPB 200 mls/hr Q6HR PRN Administration Nausea Insulin Aspart 0 unit 12/27/19 07:30 12/29/19 17:23 Novolog SQ 4 unit ACHS PEARL Administration Protocol Insulin Detemir 10 unit 12/29/19 21:00 Levemir SQ HS PEARL Lactic Acid 1 applic 12/27/19 09:00 12/29/19 12:55 Ammonium Lactate TOPICAL 1 applic BID PEARL Administration Melatonin 3 mg 12/27/19 21:00 12/28/19 21:36 Melatonin PO 3 mg HS PEARL Administration Metoprolol Tartrate 25 mg 12/27/19 09:00 12/29/19 09:46 Lopressor PO 25 mg BID PEARL Administration Ondansetron HCl 4 mg 12/27/19 23:54 12/29/19 00:01 Zofran IVP 4 mg Q6HR PRN Administration Nausea And Vomiting Pantoprazole Sodium 40 mg 12/30/19 09:00 Protonix PO DAILY PEARL Pravastatin Sodium 80 mg 12/27/19 11:00 12/29/19 09:59 Pravachol PO 80 mg DAILY PEARL Administration Sodium Bicarbonate 650 mg 12/27/19 09:00 12/29/19 10:01 Sodium Bicarbonate Tab PO 650 mg BID PEARL Administration Tamsulosin HCl 0.4 mg 12/27/19 09:00 12/29/19 09:44 Flomax PO 0.4 mg BID PEARL Administration Objective - Vital Signs Vital signs: Vital Signs Temp 98.6 F 12/29/19 20:00 Pulse 69 12/29/19 20:00 Resp 14 12/29/19 20:00 BP 119/67 12/29/19 20:00 Pulse Ox 94 L 12/29/19 20:00 Intake & Output 12/29/19 12/29/19 12/30/19 06:59 18:59 06:59 Intake Total 2475 1165 180 Output Total 387 1500 115 Balance 2088 -335 65 Weight 81.2 kg Intake: IV 1800 1165 180 Dextrose 5% in Water 1, 900 940 160 000 ml @ 80 mls/hr IV . [id number] PEARL with Sodium Bicarb (1 Meq/ml) 150 ml Rx#:[id number] Sodium Chloride 0.9% 1, 20 000 ml @ 20 mls/hr IV . Q24H PEARL Rx#:[id number] Sodium Chloride 0.9% 1, 900 225 000 ml @ 75 mls/hr IV . [id number] PEARL Rx#:[id number] Intake, IV Titration 600 Amount Azithromycin 500 mg In 500 Sodium Chloride 0.9% 250 ml @ 250 mls/hr IVPB HS [facility] Rx#:[id number] Promethazine Inj 6.25 mg 50 In Sodium Chloride 0.9% 50 ml @ 200 mls/hr IVPB Q6HR PRN Rx#:[id number] cefTRIAXone 1 gm In 50 Sodium Chloride 0.9% 50 ml @ 100 mls/hr IVPB HS [facility] Rx#:[id number] Oral 75 Output: Urine 387 500 115 Other 1000 Other: Voiding Method Indwelling Catheter Indwelling Catheter # Bowel Movements 1 - Exam GENERAL: The patient is alert and oriented x3, not in any acute distress. Well developed, well nourished. HEENT: Pupils are round and equally reacting to light. EOMI. No scleral icterus. No conjunctival pallor. Normocephalic, atraumatic. No pharyngeal erythema. No thyromegaly. CARDIOVASCULAR: S1 and S2 present. No murmurs, rubs, or gallops. PULMONARY: Chest is clear to auscultation, no wheezing or crackles. ABDOMEN: Soft, nontender, nondistended, normoactive bowel sounds. No palpable organomegaly. MUSCULOSKELETAL: No joint swelling or deformity. EXTREMITIES: No cyanosis, clubbing, or pedal edema. NEUROLOGICAL: Gross neurological examination did not reveal any focal deficits. SKIN: No rashes. No petechiae - Labs CBC & Chem 7: 12/29/19 05:25 12/29/19 05:25 Labs: Abnormal Lab Results - Last 24 Hours (Table) 12/29/19 12/29/19 12/29/19 Range/Units 05:25 05:25 06:24 RBC 3.40 L (4.30-5.90) m/uL Hgb 9.2 L (13.0-17.5) gm/dL Hct 28.3 L (39.0-53.0) % Plt Count 117 L (150-450) k/uL Lymphocytes # 0.2 L (1.0-4.8) k/uL Carbon Dioxide 21 L (22-30) mmol/L BUN 169 H* (9-20) mg/dL Creatinine 7.38 H* (0.66-1.25) mg/dL Glucose 132 H (74-99) mg/dL POC Glucose (mg/dL) 202 H (75-99) mg/dL Calcium 5.6 L* (8.4-10.2) mg/dL Alkaline Phosphatase 189 H (38-126) U/L Total Protein 5.4 L (6.3-8.2) g/dL Albumin 2.9 L (3.5-5.0) g/dL 12/29/19 12/29/19 12/29/19 Range/Units 12:32 17:18 20:19 RBC (4.30-5.90) m/uL Hgb (13.0-17.5) gm/dL Hct (39.0-53.0) % Plt Count (150-450) k/uL Lymphocytes # (1.0-4.8) k/uL Carbon Dioxide (22-30) mmol/L BUN (9-20) mg/dL Creatinine (0.66-1.25) mg/dL Glucose (74-99) mg/dL POC Glucose (mg/dL) 229 H 284 H 255 H (75-99) mg/dL Calcium (8.4-10.2) mg/dL Alkaline Phosphatase (38-126) U/L Total Protein (6.3-8.2) g/dL Albumin (3.5-5.0) g/dL Microbiology - Last 24 Hours (Table) 12/26/19 20:20 Blood Culture - Preliminary Blood No Growth after 48 hours Assessment and Plan Assessment: Right lower lobe pneumonia, complicated with a right pneumothorax Acute kidney injury on chronic kidney disease with hyperkalemia Elevated troponin worsening from chronically elevated troponin Positive occult blood in stool acute on chronic Chronic systolic congestive heart failure Acute metabolic acidosis Atrial fibrillation, recommend control. Was on Eliquis on admission Diabetes mellitus Hypertension Hyperlipidemia Chronic kidney disease stage III Coronary artery disease status post CABG in 12/2018 Gastroesophageal reflux disease Osteoarthritis Iron deficiency anemia Plan: this is a pleasant 79 years old male who presents with multiple problems i ncluding pneumonia, acute kidney injury, elevated troponin and heart failure. continue with antibiotics, follow-up culture. Clinical Safety Specialist recommended to hold anticoagulation. Monitor pneumothorax. Monitor creatinine and nephrology following the case. Several consults on the case already been called including cardiology, pulmonary and nephrology. Hold insulin and continue with insulin sliding scale Labs and medication were reviewed.. Continue same treatment. Continue with symptomatic treatment. Resume home medication. Monitor lytes and vitals. DVT and GI prophylaxis. Further recommendations of the clinical course of the patient DVT prophylaxis: Subcutaneous heparin GI Prophylaxis: Ppi Prognosis is guarded
[2019-12-29] MEDS: AZITHROMYCIN 500 MG TAB PO SCH (21:04)
[2019-12-29] MEDS: SODIUM CHLORIDE 0.9% 1,000 ML IV SCH (22:07)
[2019-12-29 23:38] LABS: Total Protein, Body Fluid 1710 mg/dL
[2019-12-29 23:52] LABS: Glucose, BF Source Pleural Fluid; Glucose, Body Fluid 169 mg/dL; LDH, Body Fluid Source Pleural Fluid
[2019-12-30] MEDS: DEXTROSE 5% IN WATER 1,000 ML with SODIUM BICARB (1 MEQ/ML) 150 ML IV SCH (03:09)
[2019-12-30] MEDS: ONDANSETRON 4 MG/2 ML VIAL IVP PRN (04:23)
[2019-12-30 05:02] LABS: HCT 25.6 % (39.0-53.0); HGB 8.7 gm/dL (13.0-17.5); MCH 28.1 pg (25.0-35.0); MCHC 34.1 g/dL (31.0-37.0); MCV 82.4 fL (80.0-100.0); Mean Platelet Volume 7.6; Platelet Count 135 k/uL (150-450); RDW 14.5 % (11.5-15.5); WBC 9.1 k/uL (3.8-10.6)
[2019-12-30 05:14] LABS: Potassium 3.5 mmol/L (3.5-5.1)
[2019-12-30 05:28] LABS: Calcium 5.5 mg/dL (8.4-10.2)
[2019-12-30] MEDS ORDERED: Potassium Replacement Protocol 1 EACH MISC MISCELLANE PRN (05:49)
[2019-12-30] MEDS ORDERED: POTASSIUM CHLORIDE ER 20 MEQ TAB.ER PO SCH (06:00)
[2019-12-30 06:46] LABS: Glucose,Whole Blood 155 mg/dL (75-99)
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
[2019-12-30] MEDS: ASCORBIC ACID 500 MG TAB PO SCH ×2 (06:50→17:35)
[2019-12-30] MEDS: INSULIN ASPART (NovoLOG) 100 UNIT/ML VIAL SQ SCH ×4 (06:50→21:04)
[2019-12-30] MEDS ORDERED: CALCIUM GLUCONATE 1 GM in SODIUM CHLORIDE 0.9% 100 ML IVPB ONE (07:00)
[2019-12-30] MEDS: hydrALAZINE HCL 25 MG TAB PO SCH ×2 (09:43→21:13)
[2019-12-30] MEDS: ERGOCALCIFEROL 50,000 UNIT CAP PO SCH (09:43)
[2019-12-30] MEDS: ASPIRIN 81 MG PO SCH (09:44)
[2019-12-30] MEDS: METOPROLOL TARTRATE 25 MG TAB PO SCH ×2 (09:44→21:13)
[2019-12-30] MEDS: TAMSULOSIN 0.4 MG CAP.ER.24H PO SCH ×2 (09:44→21:13)
[2019-12-30] MEDS: FERROUS SULFATE 325 MG TAB PO SCH ×2 (09:44→21:12)
[2019-12-30] MEDS: PRAVASTATIN SODIUM 80 MG TAB PO SCH (09:44)
[2019-12-30] MEDS: SODIUM BICARBONATE TAB 650 MG TAB PO SCH ×2 (09:44→21:13)
[2019-12-30] MEDS: CALCIUM CARBONATE 500 MG CHEWABLE PO SCH ×2 (09:44→21:13)
[2019-12-30] MEDS: PANTOPRAZOLE 40 MG TABLET PO SCH (09:45)
[2019-12-30] MEDS: HEPARIN SODIUM,PORCINE 5,000 UNIT/ML 1 ML VIAL SQ SCH ×2 (09:46→21:13)
[2019-12-30] MEDS: FINASTERIDE 5 MG TAB PO SCH (09:46)
[2019-12-30] MEDS: AMMONIUM LACTATE 12% CREAM 140 GM TUBE TOPICAL SCH ×2 (09:50→21:14)
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
[2019-12-30 11:12] LABS: Glucose,Whole Blood 119 mg/dL (75-99)
--- NOTE | 2019-12-30 12:00 | P.PN ---
Subjective Progress Note Date: 12/30/19 79-year-old male patient who came into the emergency department complaining of worsening shortness of breath. He denied having any significant cough or sputum production. Denied having any sick contacts including exposure to COVID 19. He was however getting more short of breath and addition to that he was coughing out some thick sputum. Denied having any chest pain. No nausea. No vomiting. No abdominal pain. He has multiple medical problems and comorbidities in summary, the patient has history of chronic kidney disease stage 3-4, coronary artery disease with previous bypass surgery that was done in December 2018, diabetes mellitus with history of diabetic nephropathy, hypertension, hyperlipi demia, chronic atrial fibrillation and chronic congestion heart failure. His workup in emergency department revealed the following He had a chest x-ray that showed better pleural effusion in addition to a right lower lobe consolidation. EKG showed no acute ST segment elevation or depression. There was a right bundle branch block pattern with a sinus rhythm His blood work showed an acute on top of chronic kidney injury. His creatinine was up to 8.3 with a potassium level of 5.4 in the sodium level [id number]. Note that his baseline creatinine was as high as 2.4. He did have some mild troponin elevation with levels being at 0.08, 0.11 and 0.25 respectively His occult stool was also positive His blood gases showed metabolic acidosis with a pH of 7.11 and a pCO2 of 22 and pO2 of 118 The patient was seen in intensive care unit. Despite his metabolic acidosis, the patient was awake and alert and following commands and answering course appropriately. Clinically , he was quite dry including grasses mucous membranes without any significant edema in lower extremities bilaterally. He was given IV fluids and recommended giving another liter of bolus and maintaining him on a bicarb infusion with D5 and 150 mEq of sodium bicarbonate to be relatively 5 mL an hour. He was started on broad-spectrum antibiotics. He was given accommodation Rocephin and Zithromax. I held his diuretics for now. His echocardiogram from previous evaluations have shown an ejection fraction of 40- 45% and his last cardiac catheterization was done in November 2018 showing GONZALEZ to LAD, saphenous vein graft to diagonal branch and acute marginal branch and left PDA. He had essentially nonocclusive disease. He has mild aortic stenosis and moderate mitral regurgitation. On 12/28/2019, the patient is being seen for a follow-up in the intensive care unit. Note that the patient was being treated for right lower lobe pneumonia/bilateral pneumonia and the patient was given a broad-spectrum antibiotic coverage. He was also in acute on chronic kidney injury and the patient was resuscitated IV fluids. On today's evaluation, the patient is quite comfortable and he is still on room air oxygen. His chest x-ray from today shows a 15th 20% pneumothorax on the right. Note that this was a spontaneous pneumothorax and the patient did not have any fall, trauma, or any other surgical procedures done on the right side of the chest. The patient is on a D5 and 150 mg of bicarb infusion rate of 75 mL's an hour. Urine output is in order of 30 mL an hour. The patient remains in atrial fibrillation with a controlled rate. The white cell count is at 7.8 with hemoglobin 8.5. White cell count is improved. Hemoglobin dropped however this was essentially a adequate study for now nontender the previous value was hemoconcentrated. The patient's BUN is on 279. The patient's creatinine is down to 7.9. The patient's serum bicarbs up to 35. I added also normal saline at 75 an hour. The patient me what is still on a broad-spectrum antibiotic coverage utilizing a combination of Rocephin and Zithromax. He is afebrile. I decided not to put any chest tube on the right side as the patient is quite comfortable and there is no evidence of any tension. Nevertheless, I decided to obtain a follow-up chest x-ray at around noontime. This will be needed to monitor the right-sided pneumothorax. On 12/29/2019, patient is being seen for a follow-up. The patient has bilateral pneumonia, respiratory failure, right-sided pneumothorax which has remained stable. The patient has been on room air oxygen. He continues to be on IV fluid was D5 water and 150 mEq of sodium bicarbonate running at 75 mL an hour in addition to a normal saline running at 75 Christy hour. Renal function continues to improve. Creatinine continues to improve. The patient remains on a combination of Rocephin and Zithromax regarding the right lower lobe pneumonia. Cultures of been negative thus far. Nephrotic syndrome the case regarding the acute kidney injury. Today's white cell count is at 7.2. Hemoglobin stable at 9.2. BUN is still elevated at 168 with a creatinine of 7.3 although this is improved compared to yesterday. The neck fluid balance has been +2.9 L 40 yesterday and +3.2 L over the past shift. Nephrology is on the case. Based on the persistent abnormality in the right lower lung area, I proceeded with a CAT scan of the chest and the CAT scan showed a 20% pneumothorax on the right, moderate to large bilateral pleural effusion with perihilar and basilar infiltrates and a masslike infiltration in the left lower lobe. Discussed the findings with interventional radiology. May consider a pigtail catheter drain the fluid and the pneumothorax and regular chest tube. On 12/30/2019 the patient is being seen for a follow-up. I performed a thoracentesis on this patient yesterday. A total of 900 mL of pleural fluid was aspirated. The right-sided pneumothorax was also removed. There was obvious decrease in size of the right-sided pneumothorax and the fluid analysis came back as transudate consistent with CHF as the patient had low LDH and low protein in the pleural fluid. This morning the patient's pulse ox 98% on room air. The patient was on a bicarb infusion rate of 80 mL an hour. His serum bicarb is up to 26 and the patient will be taken of the sodium bicarb and be placed on normal saline. The neck fluid balance has been +3.2 L over the past 24 hours. Chest x-ray findings show a small right apical pneumothorax, there is bilateral basilar airspace disease and there is also an ongoing left-sided pleural effusion. The patient otherwise is improving in terms of his renal fu nction. Creatinine slowly improving and the BUN is down to 160 in the creatinine is down to 6.8. Rest of the electrodes are all within normal limits. Calcium level was at 5.5 and the patient was given IV calcium replacement. White cell count is 9.1. Hemoglobin is at 8.7. The antibiotic coverage remains a combination of Rocephin and Zithromax. No other changes and antibiotic coverage was done for the time being. The pro calcitonin level was 0.51. Objective - Vital Signs Vital signs: Vital Signs Temp 98.5 F 12/30/19 08:00 Pulse 69 12/30/19 11:00 Resp 7 L 12/30/19 11:00 BP 111/44 12/30/19 11:00 Pulse Ox 99 12/30/19 11:00 Intake & Output 12/29/19 12/30/19 12/30/19 18:59 06:59 18:59 Intake Total 1165 1170 580 Output Total 1500 470 230 Balance -335 700 350 Weight 85.1 kg Intake: IV 1165 1170 580 Calcium Gluconate 1 gm In 100 Sodium Chloride 0.9% 100 ml @ 100 mls/hr IVPB ONCE ONE Rx#:[id number] Dextrose 5% in Water 1, 940 960 80 000 ml @ 80 mls/hr IV . [id number] PEARL with Sodium Bicarb (1 Meq/ml) 150 ml Rx#:[id number] Sodium Chloride 0.9% 1, 210 400 000 ml @ 100 mls/hr IV . Q10H PEARL Rx#:[id number] Sodium Chloride 0.9% 1, 225 000 ml @ 75 mls/hr IV . [id number] PEARL Rx#:[id number] Output: Urine 500 470 230 Other 1000 Other: Voiding Method Indwelling Catheter Indwelling Catheter Indwelling Catheter - Exam GENERAL: The patient is alert and oriented x3, not in any acute distress. Well developed, well nourished. No significant signs of any respiratory distress. The patient is not using excessive muscle breathing. I was his condition essentially the same compared to yesterday. Still on room air oxygen. Head exam was generally normal. There was no scleral icterus or corneal arcus. Mucous membranes were moist. HEENT: Pupils are round and equally reacting to light. EOMI. No scleral icterus. No conjunctival pallor. Normocephalic, atraumatic. No pharyngeal erythema. No thyromegaly. The patient seems to be quite dehydrated and the patient has dry mucous membranes. CARDIOVASCULAR: Irregular S1 and S2 present. No murmurs, rubs, or gallops. The patient thoracotomy scar over the anterior chest area with lidocaine and intact. PULMONARY: The patient has crackles along the right side of the lung. Breast on the quite diminished bilaterally especially in the lung bases. ABDOMEN: Soft, nontender, nondistended, normoactive bowel sounds. No palpable organomegaly. MUSCULOSKELETAL: No joint swelling or deformity. EXTREMITIES: No cyanosis, clubbing, or pedal edema. NEUROLOGICAL: Gross neurological examination did not reveal any focal deficits. SKIN: No rashes. No petechiae - Labs CBC & Chem 7: 12/30/19 04:29 12/30/19 04:29 Labs: Abnormal Lab Results - Last 24 Hours (Table) 12/29/19 12/29/19 12/29/19 Range/Units 12:32 17:18 20:19 RBC (4.30-5.90) m/uL Hgb (13.0-17.5) gm/dL Hct (39.0-53.0) % Plt Count (150-450) k/uL Sodium (137-145) mmol/L Chloride (98-107) mmol/L BUN (9-20) mg/dL Creatinine (0.66-1.25) mg/dL Glucose (74-99) mg/dL POC Glucose (mg/dL) 229 H 284 H 255 H (75-99) mg/dL Calcium (8.4-10.2) mg/dL 12/30/19 12/30/19 12/30/19 Range/Units 04:29 04:29 06:45 RBC 3.10 L (4.30-5.90) m/uL Hgb 8.7 L (13.0-17.5) gm/dL Hct 25.6 L (39.0-53.0) % Plt Count 135 L (150-450) k/uL Sodium 135 L (137-145) mmol/L Chloride 95 L (98-107) mmol/L BUN 160 H* (9-20) mg/dL Creatinine 6.87 H (0.66-1.25) mg/dL Glucose 124 H (74-99) mg/dL POC Glucose (mg/dL) 155 H (75-99) mg/dL Calcium 5.5 L* (8.4-10.2) mg/dL 12/30/19 Range/Units 11:11 RBC (4.30-5.90) m/uL Hgb (13.0-17.5) gm/dL Hct (39.0-53.0) % Plt Count (150-450) k/uL Sodium (137-145) mmol/L Chloride (98-107) mmol/L BUN (9-20) mg/dL Creatinine (0.66-1.25) mg/dL Glucose (74-99) mg/dL POC Glucose (mg/dL) 119 H (75-99) mg/dL Calcium (8.4-10.2) mg/dL Microbiology - Last 24 Hours (Table) 12/29/19 16:15 Gram Stain - Preliminary Pleural Fluid Body Fluid Culture - Preliminary 12/29/19 16:15 Anaerobic Culture - Preliminary Pleural Fluid 12/29/19 16:15 Fungal Culture - Preliminary Pleural Fluid 12/29/19 16:15 Acid Fast Bacilli Culture - Preliminary Pleural Fluid 12/26/19 20:20 Blood Culture - Preliminary Blood No Growth after 72 hours Assessment and Plan Plan: 1 right lower lobe pneumonia. Likely bacterial. Covid 19 infection was ruled out basilar rapid screen. The patient also has bilateral pleural effusions, small, consistent with underlying history of CHF. The pro-calcitonin level is mildly elevated at 0.51. On 12/30/2019, the patient is post thoracentesis with drainage of 900 mL of pleural fluid which do not to be a transudate in addition to drainage of the right-sided pneumothorax via thoracentesis. The right epigastrium pneumothorax has dropped down significantly in size.. The patient continues to have bilateral lower lobe consolidation patient will be given antibiotic coverage for now. The patient may need a thoracentesis on the left as the CAT scan of the chest has shown also the pleural effusion which was moderate in size on the left. He is currently on room air. He is sitting slow but ongoing improvement in his acute kidney injury. 2 acute on chronic kidney disease. The patient has stage III to 4 chronic kidney disease and the patient has developed acute kidney injury with signif icant elevation in creatinine and development of an underlying non-anion gap metabolic acidosis. Note that the metabolic acidosis has recovered and the patient's serum bicarb has normalized. Renal function continues to improve slowly and there has been slow but steady drop in the creatinine level. Nephrology is on the case. Dialysis was offered the patient declines. We will going to continue the IV fluids and monitor the renal function for now. 3 moderate sized bilateral pleural effusions, in addition to a right sided pneumothorax around 20%, improved post drainage via thoracentesis with some small residual right apical pneumothorax present 4 CHF with ejection fraction 45% and mild aortic stenosis and moderate mitral regurgitation. Echo to be repeated. The patient has mild systolic heart failure 5 chronic atrial fibrillation maintained on Eliquis on outpatient basis, and the patient continues to be in atrial fibrillation with a controlled rate. 6 diabetes mellitus 7 hypertension 8 hyperlipidemia 9 coronary artery disease with previous bypass surgery that was performed in December 2018 10 history of iron deficiency anemia with a positive occult blood in the stool 11 metabolic acidosis improved on bicarb infusion 12 troponin leak, likely attributed to an acute STEMI, consider troponin leak secondary to above-mentioned comorbidities. 13 hypocalcemia, replaced plan Discontinue the bicarbonate infusion Start the patient on normal saline at the rate of 100 mL an hour The patient is post thoracentesis of pleural fluid do not to be a transudate. May consider doing a therapeutic thoracentesis on the left if the patient develops any significant shortness of breath. For now, the right-sided pleural effusion has been drained and the pneumothorax have decreased in size Monitor renal function with creatinine which is improving slowly Keep that examination on hold for now Repeat chest x-ray at noontime to monitor the right-sided pneumothorax and consider insertion of a chest tube if the pneumothorax as getting worse. The The cultures all negative Replace calcium levels Keep the Torres catheter in place amount of urine output Heparin 5000 units subcu every 12 hours for DVT prophylaxis Monitor the blood sugar and put the patient on sliding scale coverage We'll continue to follow make further recommendations based on her progress. Condition is critical and this evaluation was done in 30 minutes. During this time, the case was discussed with the family and with the rest of the consultants including cardiology and nephrology. Time with Patient: Greater than 30
--- NOTE | 2019-12-30 12:40 | PN ---
PROGRESS NOTE The patient is seen for followup for acute kidney injury, mainly prerenal and severe intravascular volume depletion. Renal function continues to improve on a daily basis. The patient is maintained on IV fluids. He has been complaining of nausea and has been feeling weak. This morning patient is tired and I asked him again if he is he would like to proceed with dialysis and at this time he states that he will continue to wait, since renal function continues to improve. PHYSICAL EXAMINATION: On examination, blood pressure is 120/57, heart rate 72 per minute, he is afebrile. Examination of the heart S1, S2. Examination of lungs, decreased breath sounds at the bases. Abdomen is soft, nontender. Examination of lower extremities shows no evidence of edema. [employer] exam shows patient is moving all four extremities. LAB: Show a sodium of 135, potassium 3.5, BUN 160, serum creatinine 6.87, hemoglobin of 8.7 g/dL. ASSESSMENT: 1. Acute kidney injury, acute tubular necrosis, nonoliguric associated with severe hypovolemia, currently maintained on IV fluids. Renal function slowly continue to improve. Given the fact that patient is complaining of increased weakness and persistent nausea, I have asked him if we should proceed with a couple of treatments of dialysis which will help him feel better. However, at this time he states that he would like to wait and this is acceptable given that his renal function continues to improve. 2. Hypocalcemia associated with severe nutritional vitamin D deficiency maintained on supplementation and started I will start vitamin D supplementation as well. 3. Severe anion gap metabolic acidosis status post IV bicarb, currently improved. PLAN: Agree with discontinuation of bicarb drip, add normal saline and start vitamin D and repeat labs in a.m. MMODL / IJN: [id number] /
[2019-12-30 16:55] LABS: Glucose,Whole Blood 125 mg/dL (75-99)
[2019-12-30] MEDS: PROMETHAZINE INJ 6.25 MG in SODIUM CHLORIDE 0.9% 50 ML IVPB PRN (19:57)
[2019-12-30 20:42] LABS: Glucose,Whole Blood 124 mg/dL (75-99)
[2019-12-30] MEDS: INSULIN DETEMIR (LEVEMIR) 100 UNIT/ML SYR SQ SCH (21:05)
[2019-12-30] MEDS: MELATONIN 3 MG TABLET PO SCH (21:13)
[2019-12-30] MEDS: AZITHROMYCIN 500 MG TAB PO SCH (21:14)
[2019-12-31] MEDS: SODIUM CHLORIDE 0.9% 1,000 ML IV SCH ×2 (00:19→12:45)
[2019-12-31] MEDS: PROMETHAZINE INJ 6.25 MG in SODIUM CHLORIDE 0.9% 50 ML IVPB PRN ×2 (05:08→16:28)
[2019-12-31 05:37] LABS: Basophils % (A) 0 %; Eosinophils # (A) 0.3 k/uL (0-0.7); Eosinophils % (A) 4 %; HCT 24.3 % (39.0-53.0); HGB 8.3 gm/dL (13.0-17.5); Lymphocytes # (A) 0.3 k/uL (1.0-4.8); Lymphocytes % (A) 4 %; MCH 27.6 pg (25.0-35.0); MCHC 34.1 g/dL (31.0-37.0); MCV 81.1 fL (80.0-100.0); Mean Platelet Volume 7.3; Monocytes # (A) 0.5 k/uL (0-1.0); Monocytes % (A) 7 %; Neutrophils # (A) 6.7 k/uL (1.3-7.7); Neutrophils % (A) 83 %; Platelet Count 119 k/uL (150-450); RBC 2.99 m/uL (4.30-5.90); RDW 14.4 % (11.5-15.5)
[2019-12-31 05:51] LABS: Potassium 3.9 mmol/L (3.5-5.1)
[2019-12-31 06:01] LABS: Calcium 5.3 mg/dL (8.4-10.2)
[2019-12-31] MEDS ORDERED: CALCIUM GLUCONATE 2 GM in SODIUM CHLORIDE 0.9% 100 ML IVPB ONE (06:33)
--- NOTE | 2019-12-31 06:39 | XR ---
EXAMINATION TYPE: XR chest 1V DATE OF EXAM: 12/31/2019 HISTORY: pneumonia. REFERENCE: Previous study dated 12/30/2019. FINDINGS: There has been a midline sternotomy. There continues to be a small right apical pneumothora x. The heart is enlarged. There is bibasilar airspace disease. I suspect small effusions. IMPRESSION: 1. CONTINUING, SMALL RIGHT APICAL PNEUMOTHORAX. 2. CONTINUING BIBASILAR AIRSPACE DISEASE. 3. CARDIOMEGALY. 4. BILATERAL EFFUSIONS.
[2019-12-31 06:42] LABS: Glucose,Whole Blood 109 mg/dL (75-99)
[2019-12-31] MEDS: ASCORBIC ACID 500 MG TAB PO SCH ×2 (06:49→17:20)
[2019-12-31] MEDS: INSULIN ASPART (NovoLOG) 100 UNIT/ML VIAL SQ SCH ×4 (06:52→21:00)
[2019-12-31] MEDS: FERROUS SULFATE 325 MG TAB PO SCH ×2 (08:38→21:00)
[2019-12-31] MEDS: METOPROLOL TARTRATE 25 MG TAB PO SCH ×2 (08:38→20:59)
[2019-12-31] MEDS: PANTOPRAZOLE 40 MG TABLET PO SCH (08:38)
[2019-12-31] MEDS: HEPARIN SODIUM,PORCINE 5,000 UNIT/ML 1 ML VIAL SQ SCH ×2 (08:38→21:00)
[2019-12-31] MEDS: TAMSULOSIN 0.4 MG CAP.ER.24H PO SCH ×2 (08:38→20:59)
[2019-12-31] MEDS: SODIUM BICARBONATE TAB 650 MG TAB PO SCH ×2 (08:38→20:59)
[2019-12-31] MEDS: hydrALAZINE HCL 25 MG TAB PO SCH ×2 (08:38→20:59)
[2019-12-31] MEDS: CALCIUM CARBONATE 500 MG CHEWABLE PO SCH ×2 (08:38→20:59)
[2019-12-31] MEDS: ASPIRIN 81 MG PO SCH (08:38)
[2019-12-31] MEDS: FINASTERIDE 5 MG TAB PO SCH (08:39)
[2019-12-31] MEDS: PRAVASTATIN SODIUM 80 MG TAB PO SCH (08:39)
[2019-12-31] MEDS: AMMONIUM LACTATE 12% CREAM 140 GM TUBE TOPICAL SCH ×2 (08:40→20:59)
--- NOTE | 2019-12-31 11:24 | PN ---
PROGRESS NOTE The patient is seen for followup for acute kidney injury, mainly prerenal, associated with volume depletion and some degree of acute tubular necrosis. Patient has been nonoliguric. Renal function has been progressively improving since admission. The patient has been feeling nauseated and was weak. However, he had declined dialysis initially since renal function continued to improve. This morning, he was sitting in a bedside chair. There were plans for possibly starting dialysis as patient complained of ongoing nausea and stated that he had agreed for dialysis if needed. On examination this morning patient looks much better. He is sitting up in a bedside chair. Urine output has been at about 15-45 mL an hour. The patient remains on IV fluids. Serum creatinine was down to 6.8, which is about the same as yesterday from admission creatinine of 9.26. EXAMINATION: Today blood pressure is 125/59, heart rate 70 per minute. He is afebrile. Examination of the heart S1, S2. Examination of lungs decreased breath sounds at bases. ABDOMEN: Soft, nontender. Examination lower extremities shows no evidence of edema. LAB: Show sodium 137, potassium 3.9, chloride 99, CO2 is 22, BUN 148, serum creatinine 6.82, hemoglobin 8.3 g/dL calcium 5.3. ASSESSMENT: 1. Acute kidney injury acute tubular necrosis and secondary to severe volume depletion, currently slowly improving with IV hydration. As long as renal function continues to improve, we will hold off on dialysis. Urine output is at borderline. I will continue with IV fluids and we will reassess based on general condition and labs tomorrow. 2. Severe metabolic acidosis, anion gap, currently resolved. Bicarb drip has been discontinued. 3. Hypocalcemia associated with severe nutrition vitamin D deficiency, maintained on supplementation with calcium as well as vitamin D. 4. Uremia slowly improving. 5. Chronic kidney disease NKF stage IV secondary to diabetic nephropathy. Baseline creatinine about 1.7-2 mg/dL. 6. Cardiomyopathy, EF 45-50 percent, currently not in failure. 7. History of congestive heart failure currently compensated. 8. Hyperkalemia associated with advanced renal failure and acidosis on initial admission currently resolved. 9. Atrial fibrillation with controlled ventricular response maintained on Eliquis. 10.Right lower lobe pneumonia maintained on antibiotics. PLAN: Continue antibiotics. Continue IV fluids. No need for dialysis today. We will reassess tomorrow based on labs and overall general condition if the patient needs renal replacement therapy. MMODL / IJN: [id number] /
--- NOTE | 2019-12-31 12:20 | P.PN ---
Subjective Progress Note Date: 12/31/19 79-year-old male patient who came into the emergency department complaining of worsening shortness of breath. He denied having any significant cough or sputum production. Denied having any sick contacts including exposure to COVID 19. He was however getting more short of breath and addition to that he was coughing out some thick sputum. Denied having any chest pain. No nausea. No vomiting. No abdominal pain. He has multiple medical problems and comorbidities in summary, the patient has history of chronic kidney disease stage 3-4, coronary artery disease with previous bypass surgery that was done in December 2018, diabetes mellitus with history of diabetic nephropathy, hypertension, hyperlipi demia, chronic atrial fibrillation and chronic congestion heart failure. His workup in emergency department revealed the following He had a chest x-ray that showed better pleural effusion in addition to a right lower lobe consolidation. EKG showed no acute ST segment elevation or depression. There was a right bundle branch block pattern with a sinus rhythm His blood work showed an acute on top of chronic kidney injury. His creatinine was up to 8.3 with a potassium level of 5.4 in the sodium level [id number]. Note that his baseline creatinine was as high as 2.4. He did have some mild troponin elevation with levels being at 0.08, 0.11 and 0.25 respectively His occult stool was also positive His blood gases showed metabolic acidosis with a pH of 7.11 and a pCO2 of 22 and pO2 of 118 The patient was seen in intensive care unit. Despite his metabolic acidosis, the patient was awake and alert and following commands and answering course appropriately. Clinically , he was quite dry including grasses mucous membranes without any significant edema in lower extremities bilaterally. He was given IV fluids and recommended giving another liter of bolus and maintaining him on a bicarb infusion with D5 and 150 mEq of sodium bicarbonate to be relatively 5 mL an hour. He was started on broad-spectrum antibiotics. He was given accommodation Rocephin and Zithromax. I held his diuretics for now. His echocardiogram from previous evaluations have shown an ejection fraction of 40- 45% and his last cardiac catheterization was done in November 2018 showing GONZALEZ to LAD, saphenous vein graft to diagonal branch and acute marginal branch and left PDA. He had essentially nonocclusive disease. He has mild aortic stenosis and moderate mitral regurgitation. On 12/28/2019, the patient is being seen for a follow-up in the intensive care unit. Note that the patient was being treated for right lower lobe pneumonia/bilateral pneumonia and the patient was given a broad-spectrum antibiotic coverage. He was also in acute on chronic kidney injury and the patient was resuscitated IV fluids. On today's evaluation, the patient is quite comfortable and he is still on room air oxygen. His chest x-ray from today shows a 15th 20% pneumothorax on the right. Note that this was a spontaneous pneumothorax and the patient did not have any fall, trauma, or any other surgical procedures done on the right side of the chest. The patient is on a D5 and 150 mg of bicarb infusion rate of 75 mL's an hour. Urine output is in order of 30 mL an hour. The patient remains in atrial fibrillation with a controlled rate. The white cell count is at 7.8 with hemoglobin 8.5. White cell count is improved. Hemoglobin dropped however this was essentially a adequate study for now nontender the previous value was hemoconcentrated. The patient's BUN is on 279. The patient's creatinine is down to 7.9. The patient's serum bicarbs up to 35. I added also normal saline at 75 an hour. The patient me what is still on a broad-spectrum antibiotic coverage utilizing a combination of Rocephin and Zithromax. He is afebrile. I decided not to put any chest tube on the right side as the patient is quite comfortable and there is no evidence of any tension. Nevertheless, I decided to obtain a follow-up chest x-ray at around noontime. This will be needed to monitor the right-sided pneumothorax. On 12/29/2019, patient is being seen for a follow-up. The patient has bilateral pneumonia, respiratory failure, right-sided pneumothorax which has remained stable. The patient has been on room air oxygen. He continues to be on IV fluid was D5 water and 150 mEq of sodium bicarbonate running at 75 mL an hour in addition to a normal saline running at 75 Christy hour. Renal function continues to improve. Creatinine continues to improve. The patient remains on a combination of Rocephin and Zithromax regarding the right lower lobe pneumonia. Cultures of been negative thus far. Nephrotic syndrome the case regarding the acute kidney injury. Today's white cell count is at 7.2. Hemoglobin stable at 9.2. BUN is still elevated at 168 with a creatinine of 7.3 although this is improved compared to yesterday. The neck fluid balance has been +2.9 L 40 yesterday and +3.2 L over the past shift. Nephrology is on the case. Based on the persistent abnormality in the right lower lung area, I proceeded with a CAT scan of the chest and the CAT scan showed a 20% pneumothorax on the right, moderate to large bilateral pleural effusion with perihilar and basilar infiltrates and a masslike infiltration in the left lower lobe. Discussed the findings with interventional radiology. May consider a pigtail catheter drain the fluid and the pneumothorax and regular chest tube. On 12/30/2019 the patient is being seen for a follow-up. I performed a thoracentesis on this patient yesterday. A total of 900 mL of pleural fluid was aspirated. The right-sided pneumothorax was also removed. There was obvious decrease in size of the right-sided pneumothorax and the fluid analysis came back as transudate consistent with CHF as the patient had low LDH and low protein in the pleural fluid. This morning the patient's pulse ox 98% on room air. The patient was on a bicarb infusion rate of 80 mL an hour. His serum bicarb is up to 26 and the patient will be taken of the sodium bicarb and be placed on normal saline. The neck fluid balance has been +3.2 L over the past 24 hours. Chest x-ray findings show a small right apical pneumothorax, there is bilateral basilar airspace disease and there is also an ongoing left-sided pleural effusion. The patient otherwise is improving in terms of his renal fu nction. Creatinine slowly improving and the BUN is down to 160 in the creatinine is down to 6.8. Rest of the electrodes are all within normal limits. Calcium level was at 5.5 and the patient was given IV calcium replacement. White cell count is 9.1. Hemoglobin is at 8.7. The antibiotic coverage remains a combination of Rocephin and Zithromax. No other changes and antibiotic coverage was done for the time being. The pro calcitonin level was 0.51. On 12/31/2019, the patient is looking well and has no specific complaints. Renal function continues to be impaired. Nephrology was considering dialysis, however, based on the ongoing improvement in urine output, dialysis will not be down we'll continue to monitor the patient's renal function. I am still monitoring the patient's respiratory status. The patient remains on broad- spectrum antibiotics. We treated him for a lower lobe pneumonia bilateral, however, based on further evaluations, the patient seems to be having more so pleural effusions. I performed a right-sided thoracentesis evacuating the right-sided pneumothorax and the right-sided pleural effusion. The fluid was a transudate. There is still some residual right-sided pneumothorax on today's chest x-ray. The patient is afebrile. The patient is producing adequate amount of urine output. He remains on the same antibiotic coverage. He is still in a positive fluid balance of 365 mL over the past 24 hours. His BN is at 148. Creatinine is at 6.8. No significant electrolyte disturbances. The white cell count is at 8 with a hemoglobin of 8.3. Objective - Vital Signs Vital signs: Vital Signs Temp 98.4 F 12/31/19 04:00 Pulse 92 12/31/19 09:00 Resp 15 12/31/19 09:00 BP 104/48 12/31/19 08:00 Pulse Ox 90 L 12/31/19 09:00 Intake & Output 12/30/19 12/31/19 12/31/19 18:59 06:59 18:59 Intake Total 1670 1100 100 Output Total 660 394 45 Balance 1010 706 55 Weight 83.8 kg Intake: IV 1320 1100 Calcium Gluconate 1 gm In 100 Sodium Chloride 0.9% 100 ml @ 100 mls/hr IVPB ONCE ONE Rx#:[id number] Dextrose 5% in Water 1, 80 000 ml @ 80 mls/hr IV . [id number] PERAL with Sodium Bicarb (1 Meq/ml) 150 ml Rx#:[id number] Promethazine Inj 6.25 mg 100 In Sodium Chloride 0.9% 50 ml @ 200 mls/hr IVPB Q6HR PRN Rx#:[id number] Sodium Chloride 0.9% 1, 1140 950 000 ml @ 100 mls/hr IV . Q10H PEARL Rx#:[id number] cefTRIAXone 1 gm In 50 Sodium Chloride 0.9% 50 ml @ 100 mls/hr IVPB HS PEARL Rx#:[id number] Intake, IV Titration 100 Amount Calcium Gluconate 2 gm In 100 Sodium Chloride 0.9% 100 ml @ 100 mls/hr IVPB ONCE ONE Rx#:[id number] Oral 350 Output: Urine 660 394 45 Other: Voiding Method Indwelling Catheter Indwelling Catheter Indwelling Catheter - Exam GENERAL: The patient is alert and oriented x3, not in any acute distress. Well developed, well nourished. No significant signs of any respiratory distress. The patient is not using excessive muscle breathing. I was his condition essentially the same compared to yesterday. Still on room air oxygen. Head exam was generally normal. There was no scleral icterus or corneal arcus. Mucous membranes were moist. HEENT: Pupils are round and equally reacting to light. EOMI. No scleral icterus. No conjunctival pallor. Normocephalic, atraumatic. No pharyngeal erythema. No thyromegaly. The patient seems to be quite dehydrated and the patient has dry mucous membranes. CARDIOVASCULAR: Irregular S1 and S2 present. No murmurs, rubs, or gallops. The patient thoracotomy scar over the anterior chest area with lidocaine and intact. PULMONARY: The patient has crackles along the right side of the lung. Breast on the quite diminished bilaterally especially in the lung bases. ABDOMEN: Soft, nontender, nondistended, normoactive bowel sounds. No palpable o rganomegaly. MUSCULOSKELETAL: No joint swelling or deformity. EXTREMITIES: No cyanosis, clubbing, or pedal edema. NEUROLOGICAL: Gross neurological examination did not reveal any focal deficits. SKIN: No rashes. No petechiae - Labs CBC & Chem 7: 12/31/19 04:37 12/31/19 04:37 Labs: Abnormal Lab Results - Last 24 Hours (Table) 12/30/19 12/30/19 12/31/19 Range/Units 16:54 20:40 04:37 RBC 2.99 L (4.30-5.90) m/uL Hgb 8.3 L (13.0-17.5) gm/dL Hct 24.3 L (39.0-53.0) % Plt Count 119 L (150-450) k/uL Lymphocytes # 0.3 L (1.0-4.8) k/uL BUN (9-20) mg/dL Creatinine (0.66-1.25) mg/dL POC Glucose (mg/dL) 125 H 124 H (75-99) mg/dL Calcium (8.4-10.2) mg/dL 12/31/19 12/31/19 Range/Units 04:37 06:41 RBC (4.30-5.90) m/uL Hgb (13.0-17.5) gm/dL Hct (39.0-53.0) % Plt Count (150-450) k/uL Lymphocytes # (1.0-4.8) k/uL BUN 148 H* (9-20) mg/dL Creatinine 6.82 H (0.66-1.25) mg/dL POC Glucose (mg/dL) 109 H (75-99) mg/dL Calcium 5.3 L* (8.4-10.2) mg/dL Microbiology - Last 24 Hours (Table) 12/26/19 20:20 Blood Culture - Preliminary Blood No Growth after 96 hours 12/29/19 16:15 Acid Fast Bacilli Smear - Final Pleural Fluid Acid Fast Bacilli Culture - Preliminary 12/29/19 16:15 Gram Stain - Preliminary Pleural Fluid Body Fluid Culture - Preliminary Assessment and Plan Plan: 1 right lower lobe pneumonia. Likely bacterial. Covid 19 infection was ruled out basilar rapid screen. The patient also has bilateral pleural effusions, small, consistent with underlying history of CHF. The pro-calcitonin level is mildly elevated at 0.51. On 12/31/2019, the patient's chest x-ray still showing lower lobe opacification worse on the right and there is a left-sided pleural effusion and a tiny 5-10% pneumothorax on the right. Note that the thoracentesis was performed a right 2 days ago evacuated the right-sided pneumothorax and reduce the size of the pneumothorax and the pleural effusion. Left-sided pleural effusion is being monitored. The fluid is a transudate for now. The patient is on room air oxygen. There has been no worsening shortness of breath or oxygenation status on this patient. 2 acute on chronic kidney disease. The patient has stage III to 4 chronic kidney disease and the patient has developed acute kidney injury with significant elevation in creatinine and development of an underlying non-anion gap metabolic acidosis. Note that the metabolic acidosis has recovered and the patient's serum bicarb has normalized. Renal function continues to improve slowly and there has been slow but steady drop in the creatinine level. The patient's creatinine is stable for now. Nephrology is contemplating dialysis. Based on improved urine output, dialysis was postponed by another 24 hours. 3 moderate sized bilateral pleural effusions, in addition to a right sided pneumothorax around 20%, improved post drainage via thoracentesis with some small residual right apical pneumothorax present 4 CHF with ejection fraction 45% and mild aortic stenosis and moderate mitral regurgitation. Echo to be repeated. The patient has mild systolic heart failure 5 chronic atrial fibrillation maintained on Eliquis on outpatient basis, and the patient continues to be in atrial fibrillation with a controlled rate. 6 diabetes mellitus 7 hypertension 8 hyperlipidemia 9 coronary artery disease with previous bypass surgery that was performed in December 2018 10 history of iron deficiency anemia with a positive occult blood in the stool 11 metabolic acidosis improved on bicarb infusion 12 troponin leak, likely attributed to an acute STEMI, consider troponin leak secondary to above-mentioned comorbidities. 13 hypocalcemia, replaced plan Continue the normal saline at the rate of 100 mL an hour The patient is post thoracentesis of pleural fluid do not to be a transudate. May consider doing a therapeutic thoracentesis on the left if the patient develops any significant shortness of breath. For now, the right-sided pleural effusion has been drained and the pneumothorax have decreased in size, and the fluid characteristics is a transudate for now. As such, this is most likely related to his renal failure/CHF. Monitor renal function with creatinine which is improving slowly, and on today's evaluation the creatinine is stable compared to yesterday. We'll make consider hemodialysis to which the patient has consented based on further discussion. Keep anticoagulation on hold Repeat chest x-ray at noontime to monitor the right-sided pneumothorax and consider insertion of a chest tube if the pneumothorax as getting worse. The The cultures all negative Replace calcium levels Keep the Torres catheter in place amount of urine output Heparin 5000 units subcu every 12 hours for DVT prophylaxis Monitor the blood sugar and put the patient on sliding scale coverage We'll continue to follow make further recommendations based on her progress. Condition is critical and this evaluation was done in 30 minutes. During this time, the case was discussed with the family and with the rest of the consultants including cardiology and nephrology. Time with Patient: Greater than 30
[2019-12-31 12:28] LABS: Glucose,Whole Blood 188 mg/dL (75-99)
--- NOTE | 2019-12-31 14:09 | P.PN ---
Subjective Patient is doing fairly well. He is now sitting up in a chair He is mildly short of breath. No chest discomfort His atrial fibrillation rates are well controlled on metoprolol White count 8.0 hemoglobin 8.3 platelet count 119,000 Sodium 137 potassium 3.9 chloride 99 bicarbonate 22 BUN 148 creatinine 6.8 Low blood pressure in the low 100s but no dizziness Suggest Continue low-dose beta blockers Atrial fibrillation rates are well controlled We'll follow Objective - Vital Signs Vital signs: Vital Signs Temp 98.4 F 12/31/19 04:00 Pulse 82 12/31/19 12:00 Resp 13 12/31/19 12:00 BP 117/66 12/31/19 12:00 Pulse Ox 97 12/31/19 11:00 Intake & Output 12/30/19 12/31/19 12/31/19 18:59 06:59 18:59 Intake Total 1670 1100 500 Output Total 660 394 195 Balance 1010 706 305 Weight 83.8 kg Intake: IV 1320 1100 400 Calcium Gluconate 1 gm In 100 Sodium Chloride 0.9% 100 ml @ 100 mls/hr IVPB ONCE ONE Rx#:[id number] Dextrose 5% in Water 1, 80 000 ml @ 80 mls/hr IV . [id number] PEARL with Sodium Bicarb (1 Meq/ml) 150 ml Rx#:[id number] Promethazine Inj 6.25 mg 100 In Sodium Chloride 0.9% 50 ml @ 200 mls/hr IVPB Q6HR PRN Rx#:[id number] Sodium Chloride 0.9% 1, 1140 950 400 000 ml @ 100 mls/hr IV . Q10H PEARL Rx#:[id number] cefTRIAXone 1 gm In 50 Sodium Chloride 0.9% 50 ml @ 100 mls/hr IVPB HS PEARL Rx#:[id number] Intake, IV Titration 100 Amount Calcium Gluconate 2 gm In 100 Sodium Chloride 0.9% 100 ml @ 100 mls/hr IVPB ONCE ONE Rx#:[id number] Oral 350 Output: Urine 660 394 195 Other: Voiding Method Indwelling Catheter Indwelling Catheter Indwelling Catheter - Labs CBC & Chem 7: 12/31/19 04:37 12/31/19 04:37 Labs: Abnormal Lab Results - Last 24 Hours (Table) 12/30/19 12/30/19 12/31/19 Range/Units 16:54 20:40 04:37 RBC 2.99 L (4.30-5.90) m/uL Hgb 8.3 L (13.0-17.5) gm/dL Hct 24.3 L (39.0-53.0) % Plt Count 119 L (150-450) k/uL Lymphocytes # 0.3 L (1.0-4.8) k/uL BUN (9-20) mg/dL Creatinine (0.66-1.25) mg/dL POC Glucose (mg/dL) 125 H 124 H (75-99) mg/dL Calcium (8.4-10.2) mg/dL 12/31/19 12/31/19 12/31/19 Range/Units 04:37 06:41 12:26 RBC (4.30-5.90) m/uL Hgb (13.0-17.5) gm/dL Hct (39.0-53.0) % Plt Count (150-450) k/uL Lymphocytes # (1.0-4.8) k/uL BUN 148 H* (9-20) mg/dL Creatinine 6.82 H (0.66-1.25) mg/dL POC Glucose (mg/dL) 109 H 188 H (75-99) mg/dL Calcium 5.3 L* (8.4-10.2) mg/dL Microbiology - Last 24 Hours (Table) 12/26/19 20:20 Blood Culture - Preliminary Blood No Growth after 96 hours 12/29/19 16:15 Acid Fast Bacilli Smear - Final Pleural Fluid Acid Fast Bacilli Culture - Preliminary 12/29/19 16:15 Gram Stain - Preliminary Pleural Fluid Body Fluid Culture - Preliminary
--- NOTE | 2019-12-31 14:21 | P.PN ---
Subjective This is a pleasant 79 years old male with past medical history of systolic congestive heart failure, atrial fibrillation, was on Eliquis, hypertension, hyperlipidemia, chronic kidney disease stage III, iron deficiency anemia, coronary artery disease status post CABG in 12/2018 , diabetes mellitus, GERD, osteoarthritis He follows up from the [facility], illuminator Dr. Strange inspector fuel hose Dr. Epps Presents because of dyspnea for about one week and feeling cold walking in the cold weather going to his doctor appointment, his dyspnea gradually got worse associated with little cough and that'll clear phlegm. No chest pain, no abdom inal pain, no nausea vomiting. No diarrhea Patient denies smoking, alcohol or illicit drugs On admission patient is afebrile, saturating 96% on room air, breathing rate at 9-14 BPM, blood pressure 118/63. Labs showing leukocytosis of 23.2-14.6k, with base of the Kelly is within normal limits. Hemoglobin is 9.9 with baseline around 9-12. PTT more than 200, sodium 137, potassium 5.4, creatinine 8.3, with baseline 1.7-2.4. Potassium on presentation was 6.7, coming down to 5.4, glucose 193-to 34, liver enzymes and bilirubin not elevated, elevated troponin at 0.08, 0.11 and 0.25, baseline creatinine is elevated at 0.04-0.09. Occult blood stool was positive Chest x-ray: Right lower lobe airway disease, possible CHF. EKG: Sinus rhythm at 70 bpm with right bundle-branch block, QTC 546 Truck Packer already evaluated the patient. They recommended to continue with diuresis and follow-up renal function and chest x-ray. On admission he was started on Rocephin and Zithromax and sodium bicarb at 75 mL/h on presentation his ABG showing pH of 7.1, pCO2 of 22 and pO2 of 118 so patient was admitted to the ICU for further monitoring Today patient got 1 L of normal saline for possible sepsis although there was some suspicion of fluid in the chest x-ray by inspector fuel hose. He is not on IV fluids currently His Eliquis was held because was positive FOBT, however we will start him on subcutaneous heparin for DVT prophylaxis given his hemoglobin low at 9.9, but we will keep monitor his hemoglobin closely. Patient was on insulin long-acting 10 units daily, withheld her that and continue with insulin sliding scale, as his sugar was controlled this morning 12/28/2019 Patient lying in bed comfortable, no distress, no respiratory distress especially patient today found to have right pneumothorax. Still been treated with Rocephin and Zithromax for his pneumonia. [employer] Analyst team R following the case closely for acute kidney injury on chronic kidney disease, his creatinine is slightly went down today to 7.9, however if no improvement patient might need hemodialysis. Occult blood in the stool was positive with slight drop in hemoglobin. Patient Eliquis was stopped and continue with subcutaneous heparin for DVT prophylaxis. He is hemodynamically stable. Cardiology are following the case closely for these troponin, acute on chronic. Continue with conservative treatment for now. Dr. position was stopped 12/29/2019 Patient is respiratory distress, he was sitting in bed feeling comfortable with little pain in his shoulder. he is hemodynamically stable, with a cat scan showing moderate to large right hydropneumothorax and he underwent thoracentesis with 900 ml of fluid was taken out. at this post stopped. his creatinine only slightly trending down from 7.9 down to 7.3, hemoglobin is stable at 9.2. patient is followed closely by nephrology team who recommended to continue with same management with bicarb drip and follow-up labs in the morning 12/30/2019 Patient is awake and alert, no respiratory distress, his left shoulder pain from yesterday was resolved. Vitals are stable. Hemoglobin 8.7 and WBC 9.1. Creatinine keep trending down from 7.3 down to 6.8 Patient is on Rocephin and ceftriaxone, no muscle and was stopped and currently on bicarb drip. Sugar 155 this morning. Eliquis remains on hold and currently he is on subcu heparin for DVT prophylaxis. 12/31/2019 Patient still have some dyspnea, however he saturating well at 97% on 2 L oxygen via nasal cannula, no pain no new symptoms. Rest of vitals are stable. Creatinine 6.8, hemoglobin 8.3, platelets 119 Patient currently on Zithromax and Rocephin, IV fluids were stopped He is also on insulin 10 units at bedtime, home dose Review of systems CONSTITUTIONAL: No fever, no malaise, no fatigue. HEENT: No recent visual problems or hearing problems. Denied any sore throat. CARDIOVASCULAR: No orthopnea, PND, no palpitations, no syncope. GASTROINTESTINAL: No diarrhea, no nausea, no vomiting, no abdominal pain. Normoactive bowel sounds. NEUROLOGICAL: No headaches, no weakness, no numbness. HEMATOLOGICAL: Denies any bleeding or petechiae. GENITOURINARY: Denies any burning micturition, frequency, or urgency. MUSCULOSKELETAL/RHEUMATOLOGICAL: Denies any joint pain, swelling, or any muscle pain. ENDOCRINE: Denies any polyuria or polydipsia. Active Medications Generic Name Dose Route Start Last Admin Trade Name Freq PRN Reason Stop Dose Admin Hydrocodone Bitart/Acetaminophen 1 each 12/29/19 05:53 12/29/19 06:05 Downing 5-325 PO 1 each Q6HR PRN Administration Pain Albuterol/Ipratropium 3 ml 12/27/19 00:59 Duoneb 0.5 Mg-3 Mg/3 Ml Soln INHALATION RT-Q4H PRN Shortness Of Breath Ascorbic Acid 500 mg 12/27/19 07:30 12/31/19 06:49 Vitamin C PO 500 mg BID-W/MEALS PEARL Administration Aspirin 81 mg 12/28/19 09:00 12/31/19 08:38 Aspirin PO 81 mg DAILY PEARL Administration Azithromycin 500 mg 12/29/19 21:00 12/30/19 21:14 Zithromax PO 500 mg HS PEARL Administration Calcium Carbonate/Glycine 1,000 mg 12/29/19 09:00 12/31/19 08:38 Tums PO 1,000 mg BID PEARL Administration Darbepoetin Samson 60 mcg 12/28/19 17:00 12/28/19 17:48 Aranesp SQ 60 mcg Q7D PEARL Administration Ergocalciferol 50,000 unit 12/30/19 08:00 12/30/19 09:43 Vitamin D2 PO 50,000 unit Q72H PEARL Administration Ferrous Sulfate 325 mg 12/27/19 09:00 12/31/19 08:38 Feosol PO 325 mg BID PEARL Administration Finasteride 5 mg 12/27/19 09:00 12/31/19 08:39 Proscar PO 5 mg DAILY PEARL Administration Heparin Sodium (Porcine) 5,000 unit 12/27/19 10:30 12/31/19 08:38 Heparin SQ 5,000 unit Q12HR PERAL Administration Hydralazine HCl 25 mg 12/27/19 09:00 12/31/19 08:38 Apresoline PO 25 mg BID PEARL Administration Sodium Chloride 1,000 mls @ 100 mls/hr 12/26/19 22:00 12/31/19 12:45 Saline 0.9% IV 100 mls/hr .Q10H PEARL Administration Ceftriaxone Sodium 1 gm/ 50 mls @ 100 mls/hr 12/27/19 21:00 12/30/19 21:12 Sodium Chloride IVPB 100 mls/hr HS PEARL Administration Promethazine HCl 6.25 mg/ 50.25 mls @ 200 mls/hr 12/29/19 03:17 12/31/19 05:08 Sodium Chloride IVPB 200 mls/hr Q6HR PRN Administration Nausea Insulin Aspart 0 unit 12/27/19 07:30 12/31/19 12:44 Novolog SQ 2 unit ACHS PEARL Administration Protocol Insulin Detemir 10 unit 12/29/19 21:00 12/30/19 21:05 Levemir SQ Not Given HS PEARL Lactic Acid 1 applic 12/27/19 09:00 12/31/19 08:40 Ammonium Lactate TOPICAL 1 applic BID PEARL Administration Melatonin 3 mg 12/27/19 21:00 12/30/19 21:13 Melatonin PO 3 mg HS PEARL Administration Metoprolol Tartrate 25 mg 12/27/19 09:00 12/31/19 08:38 Lopressor PO 25 mg BID PEARL Administration Miscellaneous Information 1 each 12/30/19 05:49 Potassium Per Protocol MISCELLANE DAILY PRN Per Protocol Protocol Ondansetron HCl 4 mg 12/27/19 23:54 12/30/19 04:23 Zofran IVP 4 mg Q6HR PRN Administration Nausea And Vomiting Pantoprazole Sodium 40 mg 12/30/19 09:00 12/31/19 08:38 Protonix PO 40 mg DAILY PEARL Administration Pravastatin Sodium 80 mg 12/27/19 11:00 12/31/19 08:39 Pravachol PO 80 mg DAILY PEARL Administration Sodium Bicarbonate 650 mg 12/27/19 09:00 12/31/19 08:38 Sodium Bicarbonate Tab PO 650 mg BID PEARL Administration Tamsulosin HCl 0.4 mg 12/27/19 09:00 12/31/19 08:38 Flomax PO 0.4 mg BID PEARL Administration Objective - Vital Signs Vital signs: Vital Signs Temp 98.4 F 12/31/19 04:00 Pulse 82 12/31/19 12:00 Resp 13 12/31/19 12:00 BP 117/66 12/31/19 12:00 Pulse Ox 97 12/31/19 11:00 Intake & Output 12/30/19 12/31/19 12/31/19 18:59 06:59 18:59 Intake Total 1670 1100 500 Output Total 660 394 195 Balance 1010 706 305 Weight 83.8 kg Intake: IV 1320 1100 400 Calcium Gluconate 1 gm In 100 Sodium Chloride 0.9% 100 ml @ 100 mls/hr IVPB ONCE ONE Rx#:[id number] Dextrose 5% in Water 1, 80 000 ml @ 80 mls/hr IV . [id number] PEARL with Sodium Bicarb (1 Meq/ml) 150 ml Rx#:[id number] Promethazine Inj 6.25 mg 100 In Sodium Chloride 0.9% 50 ml @ 200 mls/hr IVPB Q6HR PRN Rx#:[id number] Sodium Chloride 0.9% 1, 1140 950 400 000 ml @ 100 mls/hr IV . Q10H PEARL Rx#:[id number] cefTRIAXone 1 gm In 50 Sodium Chloride 0.9% 50 ml @ 100 mls/hr IVPB HS PEARL Rx#:[id number] Intake, IV Titration 100 Amount Calcium Gluconate 2 gm In 100 Sodium Chloride 0.9% 100 ml @ 100 mls/hr IVPB ONCE ONE Rx#:[id number] Oral 350 Output: Urine 660 394 195 Other: Voiding Method Indwelling Catheter Indwelling Catheter Indwelling Catheter - Exam GENERAL: The patient is alert and oriented x3, not in any acute distress. Well developed, well nourished. HEENT: Pupils are round and equally reacting to light. EOMI. No scleral icterus. No conjunctival pallor. Normocephalic, atraumatic. No pharyngeal erythema. No thyromegaly. CARDIOVASCULAR: S1 and S2 present. No murmurs, rubs, or gallops. PULMONARY: Chest is clear to auscultation, no wheezing or crackles. ABDOMEN: Soft, nontender, nondistended, normoactive bowel sounds. No palpable organomegaly. MUSCULOSKELETAL: No joint swelling or deformity. EXTREMITIES: No cyanosis, clubbing, or pedal edema. NEUROLOGICAL: Gross neurological examination did not reveal any focal deficits. SKIN: No rashes. No petechiae - Labs CBC & Chem 7: 12/31/19 04:37 12/31/19 04:37 Labs: Abnormal Lab Results - Last 24 Hours (Table) 12/30/19 12/30/19 12/31/19 Range/Units 16:54 20:40 04:37 RBC 2.99 L (4.30-5.90) m/uL Hgb 8.3 L (13.0-17.5) gm/dL Hct 24.3 L (39.0-53.0) % Plt Count 119 L (150-450) k/uL Lymphocytes # 0.3 L (1.0-4.8) k/uL BUN (9-20) mg/dL Creatinine (0.66-1.25) mg/dL POC Glucose (mg/dL) 125 H 124 H (75-99) mg/dL Calcium (8.4-10.2) mg/dL 12/31/19 12/31/19 12/31/19 Range/Units 04:37 06:41 12:26 RBC (4.30-5.90) m/uL Hgb (13.0-17.5) gm/dL Hct (39.0-53.0) % Plt Count (150-450) k/uL Lymphocytes # (1.0-4.8) k/uL BUN 148 H* (9-20) mg/dL Creatinine 6.82 H (0.66-1.25) mg/dL POC Glucose (mg/dL) 109 H 188 H (75-99) mg/dL Calcium 5.3 L* (8.4-10.2) mg/dL Microbiology - Last 24 Hours (Table) 12/26/19 20:20 Blood Culture - Preliminary Blood No Growth after 96 hours 12/29/19 16:15 Acid Fast Bacilli Smear - Final Pleural Fluid Acid Fast Bacilli Culture - Preliminary 12/29/19 16:15 Gram Stain - Preliminary Pleural Fluid Body Fluid Culture - Preliminary Assessment and Plan Assessment: Right lower lobe pneumonia, complicated with a right pneumothorax Acute kidney injury on chronic kidney disease with hyperkalemia Elevated troponin worsening from chronically elevated troponin Positive occult blood in stool acute on chronic Chronic systolic congestive heart failure Acute metabolic acidosis Atrial fibrillation, recommend control. Was on Eliquis on admission Diabetes mellitus Hypertension Hyperlipidemia Chronic kidney disease stage III Coronary artery disease status post CABG in 12/2018 Gastroesophageal reflux disease Osteoarthritis Iron deficiency anemia Plan: this is a pleasant 79 years old male who presents with multiple problems including pneumonia, acute kidney injury, elevated troponin and heart failure. continue with antibiotics, follow-up culture. Truck Packer recommended to hold anticoagulation. Monitor pneumothorax. Monitor creatinine and nephrology following the case. Several consults on the case already been called including cardiology, pulmonary and nephrology. Hold insulin and continue with insulin sliding scale Labs and medication were reviewed.. Continue same treatment. Continue with symptomatic treatment. Resume home medication. Monitor lytes and vitals. DVT and GI prophylaxis. Further recommendations of the clinical course of the patient DVT prophylaxis: Subcutaneous heparin GI Prophylaxis: Ppi Prognosis is guarded
[2019-12-31 17:07] LABS: Glucose,Whole Blood 250 mg/dL (75-99)
[2019-12-31 20:48] LABS: Glucose,Whole Blood 256 mg/dL (75-99)
[2019-12-31] MEDS: AZITHROMYCIN 500 MG TAB PO SCH (20:59)
[2019-12-31] MEDS: MELATONIN 3 MG TABLET PO SCH (20:59)
[2019-12-31] MEDS: INSULIN DETEMIR (LEVEMIR) 100 UNIT/ML SYR SQ SCH (21:00)
[2020-01-01 04:50] LABS: HCT 23.8 % (39.0-53.0); HGB 7.9 gm/dL (13.0-17.5); MCH 28.2 pg (25.0-35.0); MCHC 33.3 g/dL (31.0-37.0); MCV 84.6 fL (80.0-100.0); Mean Platelet Volume 7.7; Platelet Count 130 k/uL (150-450); RBC 2.82 m/uL (4.30-5.90); RDW 14.1 % (11.5-15.5); WBC 8.9 k/uL (3.8-10.6)
[2020-01-01 05:12] LABS: Calcium 5.8 mg/dL (8.4-10.2)
[2020-01-01 06:40] LABS: Glucose,Whole Blood 82 mg/dL (75-99)
[2020-01-01] MEDS: INSULIN ASPART (NovoLOG) 100 UNIT/ML VIAL SQ SCH ×4 (06:44→21:16)
--- NOTE | 2020-01-01 07:44 | XR ---
EXAMINATION TYPE: XR chest 1V portable DATE OF EXAM: 01/01/2020 COMPARISON: 12/31/2019 HISTORY: Pleural effusions TECHNIQUE: Single frontal view of the chest is obtained. FINDINGS: There is an enlarged cardiomediastinal silhouette with post CABG change. Small apical pneu mothorax is redemonstrated as there is also a medial visceral pleural line. There are small bilateral pleural effusions and bibasilar airspace disease. Right pleural effusion appears loculated extending along the right hemithorax. Diffuse osseous demineralization is seen. IMPRESSION: 1. Stable trace apical right pneumothorax. 2. Persistent small bilateral layering pleural effusions and associated bibasilar airspace disease wi th loculation noted on the right. 3. Redemonstration of cardiomegaly.
[2020-01-01] MEDS ORDERED: CALCIUM GLUCONATE 2 GM in SODIUM CHLORIDE 0.9% 100 ML IVPB ONE (08:34)
[2020-01-01] MEDS: HEPARIN SODIUM,PORCINE 5,000 UNIT/ML 1 ML VIAL SQ SCH (08:45)
[2020-01-01] MEDS: CALCIUM CARBONATE 500 MG CHEWABLE PO SCH ×2 (08:46→21:16)
[2020-01-01] MEDS: SODIUM CHLORIDE 0.9% 1,000 ML IV SCH ×3 (08:46→17:09)
[2020-01-01] MEDS: METOPROLOL TARTRATE 25 MG TAB PO SCH ×2 (08:46→21:17)
[2020-01-01] MEDS: ASPIRIN 81 MG PO SCH (08:46)
[2020-01-01] MEDS: FERROUS SULFATE 325 MG TAB PO SCH ×2 (08:46→21:16)
[2020-01-01] MEDS: TAMSULOSIN 0.4 MG CAP.ER.24H PO SCH ×2 (08:46→21:16)
[2020-01-01] MEDS: PANTOPRAZOLE 40 MG TABLET PO SCH (08:46)
[2020-01-01] MEDS: PRAVASTATIN SODIUM 80 MG TAB PO SCH (08:46)
[2020-01-01] MEDS: SODIUM BICARBONATE TAB 650 MG TAB PO SCH ×2 (08:46→21:16)
[2020-01-01] MEDS: FINASTERIDE 5 MG TAB PO SCH (08:46)
[2020-01-01] MEDS: ASCORBIC ACID 500 MG TAB PO SCH ×2 (08:46→17:09)
[2020-01-01] MEDS: AMMONIUM LACTATE 12% CREAM 140 GM TUBE TOPICAL SCH ×2 (08:47→21:27)
[2020-01-01] MEDS: hydrALAZINE HCL 25 MG TAB PO SCH ×2 (09:05→21:17)
--- NOTE | 2020-01-01 09:12 | P.PN ---
Subjective Patient is seen in follow-up for acute kidney injury on chronic kidney disease. Renal function is fairly stable. Urine output about 30 mL an hour. Oral intake is better. IV fluids have been discontinued. Denies chest pain or shortness of breath. Vital signs are stable. General: The patient appeared well nourished and normally developed. HEENT: Head exam is unremarkable. Neck is without jugular venous distension. LUNGS: Lungs are clear to auscultation and percussion. Breath sounds decreased. HEART: Rate and Rhythm are regular. ABDOMEN: Nontender, nondistended. EXTREMITITES: Lower extremities wrapped. 1+ edema. Objective - Vital Signs Vital signs: Vital Signs Temp 96.4 F L 01/01/20 08:00 Pulse 91 01/01/20 08:00 Resp 12 01/01/20 08:00 BP 123/69 01/01/20 08:00 Pulse Ox 90 L 01/01/20 08:00 Intake & Output 12/31/19 01/01/20 01/01/20 18:59 06:59 18:59 Intake Total 1740 1350 100 Output Total 400 360 0 Balance 1340 990 100 Weight 85.9 kg Intake: IV 1150 1200 100 Promethazine Inj 6.25 mg 50 In Sodium Chloride 0.9% 50 ml @ 200 mls/hr IVPB Q6HR PRN Rx#:[id number] Sodium Chloride 0.9% 1, 1100 1200 100 000 ml @ 100 mls/hr IV . Q10H PEARL Rx#:[id number] Intake, IV Titration 100 Amount Calcium Gluconate 2 gm In 100 Sodium Chloride 0.9% 100 ml @ 100 mls/hr IVPB ONCE ONE Rx#:[id number] Oral 490 150 Output: Urine 400 360 0 Other: Voiding Method Indwelling Catheter Indwelling Catheter - Labs CBC & Chem 7: 01/01/20 03:47 01/01/20 03:47 Labs: Abnormal Lab Results - Last 24 Hours (Table) 12/31/19 12/31/19 12/31/19 Range/Units 12:26 17:06 20:47 RBC (4.30-5.90) m/uL Hgb (13.0-17.5) gm/dL Hct (39.0-53.0) % Plt Count (150-450) k/uL BUN (9-20) mg/dL Creatinine (0.66-1.25) mg/dL POC Glucose (mg/dL) 188 H 250 H 256 H (75-99) mg/dL Calcium (8.4-10.2) mg/dL 01/01/20 01/01/20 Range/Units 03:47 03:47 RBC 2.82 L (4.30-5.90) m/uL Hgb 7.9 L (13.0-17.5) gm/dL Hct 23.8 L (39.0-53.0) % Plt Count 130 L (150-450) k/uL BUN 144 H* (9-20) mg/dL Creatinine 6.49 H (0.66-1.25) mg/dL POC Glucose (mg/dL) (75-99) mg/dL Calcium 5.8 L* (8.4-10.2) mg/dL Microbiology - Last 24 Hours (Table) 12/26/19 20:20 Blood Culture - Preliminary Blood No Growth after 120 hours 12/29/19 16:15 Gram Stain - Preliminary Pleural Fluid Body Fluid Culture - Preliminary Assessment and Plan Plan: Assessment: 1. Acute kidney injury secondary to ATN secondary to volume depletion and sepsis. Renal function slowly improving. Creatinine 6.49 today. Urine output about 30 mL an hour. 2. Chronic kidney disease stage IV secondary to diabetic kidney disease with baseline creatinine near 2. 3. Chronic systolic CHF with ejection fraction of 45-50% with moderate mitral regurgitation. 4. Hypocalcemia secondary to acute kidney injury. 5. Pneumonia maintained on antibiotics. 6. Anemia of chronic kidney disease maintained on Aranesp. 7. Insulin-dependent diabetes mellitus. 8. Hypertension with chronic kidney disease. Blood pressure on the lower side. 9. Metabolic acidosis secondary to acute kidney injury maintained on oral sodium bicarbonate. Plan: Replace calcium. 2 g IV calcium gluconate today. Hold hydralazine for systolic blood pressure less than 120. Continue to monitor renal function and urine output closely. Continue to assess daily for need for renal replacement therapy.
[2020-01-01 11:43] LABS: Glucose,Whole Blood 164 mg/dL (75-99)
--- NOTE | 2020-01-01 11:51 | P.PN ---
<Liza Shah - Last Filed: 01/01/20 11:39> Subjective This is Liza Shah PA-C dictating a progress note on this patient The patient was interviewed and examined by Dr. Burdick HPI/interval history Patient is a male with a past medical history significant for CAD status post CABG, CHF, hypertension, diabetes, atrial fibrillation, dyslipidemia, and CKD who presented with complaints of worsening shortness of breath. He was admitted for treatment of pneumonia and CHF. He was found to have bilateral pleural effus ions and a right sided pneumothorax and underwent thoracentesis. He has also had worsening renal function, nephrology is following. Cardiology was consulted for management of atrial fibrillation. Patient remains in rate -controlled atrial fibrillation. He complains of some abdominal pain which he attributes to gas. No chest pain. EXAMINATION Patient seen and examined by Dr. Burdick in the ICU Patient is afebrile, pulse in the 70s, respirations 16, blood pressure 110/63, oxygen saturation 98% his heart is irregular lungs are clear REVIEW OF LABS, ECG WBC 8.9, hemoglobin 7.9, platelets 130, potassium 4.0, BUN 144, creatinine 6.49 previous echo shows EF 45-50% IMPRESSION / ASSESSMENT: Dyspnea secondary to pneumonia, CHF exacerbation, and fluid overload, symptoms improving bilateral pleural effusion status post thoracentesis DANIELLE on CKD, BUN and creatinine improving CAD status post CABG Acute on chronic CHF secondary to systolic dysfunction, EF 45-50%, symptoms improving Chronic atrial fibrillation rate controlled Diabetes Hypertension Dyslipidemia PLAN: From a cardiac standpoint, continue rate control medications We will sign off at this and see the patient on an as necessary basis outpatient follow up with primary stem assembler upon discharge Objective - Vital Signs Vital signs: Vital Signs Temp 98.1 F 01/01/20 04:00 Pulse 76 01/01/20 07:00 Resp 8 L 01/01/20 07:00 BP 110/63 01/01/20 07:00 Pulse Ox 98 01/01/20 07:00 Intake & Output 12/31/19 01/01/20 01/01/20 18:59 06:59 18:59 Intake Total 1740 1350 100 Output Total 400 360 0 Balance 1340 990 100 Weight 85.9 kg Intake: IV 1150 1200 100 Promethazine Inj 6.25 mg 50 In Sodium Chloride 0.9% 50 ml @ 200 mls/hr IVPB Q6HR PRN Rx#:[id number] Sodium Chloride 0.9% 1, 1100 1200 100 000 ml @ 100 mls/hr IV . Q10H [facility] Rx#:[id number] Intake, IV Titration 100 Amount Calcium Gluconate 2 gm In 100 Sodium Chloride 0.9% 100 ml @ 100 mls/hr IVPB ONCE ONE Rx#:[id number] Oral 490 150 Output: Urine 400 360 0 Other: Voiding Method Indwelling Catheter Indwelling Catheter - Labs CBC & Chem 7: 01/01/20 03:47 01/01/20 03:47 Labs: Abnormal Lab Results - Last 24 Hours (Table) 12/31/19 12/31/19 12/31/19 Range/Units 12:26 17:06 20:47 RBC (4.30-5.90) m/uL Hgb (13.0-17.5) gm/dL Hct (39.0-53.0) % Plt Count (150-450) k/uL BUN (9-20) mg/dL Creatinine (0.66-1.25) mg/dL POC Glucose (mg/dL) 188 H 250 H 256 H (75-99) mg/dL Calcium (8.4-10.2) mg/dL 01/01/20 01/01/20 Range/Units 03:47 03:47 RBC 2.82 L (4.30-5.90) m/uL Hgb 7.9 L (13.0-17.5) gm/dL Hct 23.8 L (39.0-53.0) % Plt Count 130 L (150-450) k/uL BUN 144 H* (9-20) mg/dL Creatinine 6.49 H (0.66-1.25) mg/dL POC Glucose (mg/dL) (75-99) mg/dL Calcium 5.8 L* (8.4-10.2) mg/dL Microbiology - Last 24 Hours (Table) 12/26/19 20:20 Blood Culture - Preliminary Blood No Growth after 120 hours 12/29/19 16:15 Gram Stain - Preliminary Pleural Fluid Body Fluid Culture - Preliminary <Jose Alberto Burdick - Last Filed: 01/01/20 11:51> Subjective Patient ID granulations on hold. He was Hemoccult positive. He's had a thoracentesis and his hemoglobins close to 8. I'm restarting ELIQUIS 5 mg twice daily Watch hemoglobin Objective - Vital Signs Vital signs: Vital Signs Temp 96.4 F L 01/01/20 08:00 Pulse 73 01/01/20 11:00 Resp 17 01/01/20 11:00 BP 113/62 01/01/20 11:00 Pulse Ox 98 01/01/20 11:00 Intake & Output 12/31/19 01/01/20 01/01/20 18:59 06:59 18:59 Intake Total 1740 1350 200 Output Total 400 360 175 Balance 1340 990 25 Weight 85.9 kg 85.9 kg Intake: IV 1150 1200 200 Promethazine Inj 6.25 mg 50 In Sodium Chloride 0.9% 50 ml @ 200 mls/hr IVPB Q6HR PRN Rx#:[id number] Sodium Chloride 0.9% 1, 1100 1200 200 000 ml @ 20 mls/hr IV . Q24H PEARL Rx#:[id number] Intake, IV Titration 100 Amount Calcium Gluconate 2 gm In 100 Sodium Chloride 0.9% 100 ml @ 100 mls/hr IVPB ONCE ONE Rx#:[id number] Oral 490 150 Output: Urine 400 360 175 Other: Voiding Method Indwelling Catheter Indwelling Catheter Indwelling Catheter - Labs CBC & Chem 7: 01/01/20 03:47 01/01/20 03:47 Labs: Abnormal Lab Results - Last 24 Hours (Table) 12/31/19 12/31/19 12/31/19 Range/Units 12:26 17:06 20:47 RBC (4.30-5.90) m/uL Hgb (13.0-17.5) gm/dL Hct (39.0-53.0) % Plt Count (150-450) k/uL BUN (9-20) mg/dL Creatinine (0.66-1.25) mg/dL POC Glucose (mg/dL) 188 H 250 H 256 H (75-99) mg/dL Calcium (8.4-10.2) mg/dL 01/01/20 01/01/20 01/01/20 Range/Units 03:47 03:47 11:41 RBC 2.82 L (4.30-5.90) m/uL Hgb 7.9 L (13.0-17.5) gm/dL Hct 23.8 L (39.0-53.0) % Plt Count 130 L (150-450) k/uL BUN 144 H* (9-20) mg/dL Creatinine 6.49 H (0.66-1.25) mg/dL POC Glucose (mg/dL) 164 H (75-99) mg/dL Calcium 5.8 L* (8.4-10.2) mg/dL Microbiology - Last 24 Hours (Table) 12/26/19 20:20 Blood Culture - Preliminary Blood No Growth after 120 hours 12/29/19 16:15 Gram Stain - Preliminary Pleural Fluid Body Fluid Culture - Preliminary
--- NOTE | 2020-01-01 12:18 | P.PN ---
Subjective Progress Note Date: 01/01/20 Principal diagnosis: Acute hypoxic respiratory failure secondary to acute systolic congestive heart failure possible right lower lobe pneumonia, this is not confirmed at this point yet. 79-year-old male patient who came into the emergency department complaining of worsening shortness of breath. He denied having any significant cough or sputum production. Denied having any sick contacts including exposure to COVID 19. He was however getting more short of breath and addition to that he was coughing out some thick sputum. Denied having any chest pain. No nausea. No vomiting. No abdominal pain. He has multiple medical problems and comorbidities in summary, the patient has history of chronic kidney disease stage 3-4, coronary artery disease with previous bypass surgery that was done in December 2018, diabetes mellitus with history of diabetic nephropathy, hypertension, hyperlipidemia, chronic atrial fibrillation and chronic congestion heart failure. His workup in emergency department revealed the following He had a chest x-ray that showed better pleural effusion in addition to a right lower lobe consolidation. EKG showed no acute ST segment elevation or depression. There was a right bundle branch block pattern with a sinus rhythm His blood work showed an acute on top of chronic kidney injury. His creatinine was up to 8.3 with a potassium level of 5.4 in the sodium level [id number]. Note that his baseline creatinine was as high as 2.4. He did have some mild troponin elevation with levels being at 0.08, 0.11 and 0.25 respectively His occult stool was also positive His blood gases showed metabolic acidosis with a pH of 7.11 and a pCO2 of 22 and pO2 of 118 The patient was seen in intensive care unit. Despite his metabolic acidosis, the patient was awake and alert and following commands and answering course appropriately. Clinically , he was quite dry including grasses mucous membranes without any significant edema in lower extremities bilaterally. He was given IV fluids and recommended giving another liter of bolus and maintaining him on a bicarb infusion with D5 and 150 mEq of sodium bicarbonate to be relatively 5 mL an hour. He was started on broad-spectrum antibiotics. He was given accommodation Rocephin and Zithromax. I held his diuretics for now. His echocardiogram from previous evaluations have shown an ejection fraction of 40- 45% and his last cardiac catheterization was done in November 2018 showing GONZALEZ to LAD, saphenous vein graft to diagonal branch and acute marginal branch and left PDA. He had essentially nonocclusive disease. He has mild aortic stenosis and moderate mitral regurgitation. On 12/28/2019, the patient is being seen for a follow-up in the intensive care unit. Note that the patient was being treated for right lower lobe pneumonia/bilateral pneumonia and the patient was given a broad-spectrum an tibiotic coverage. He was also in acute on chronic kidney injury and the patient was resuscitated IV fluids. On today's evaluation, the patient is quite comfortable and he is still on room air oxygen. His chest x-ray from today shows a 15th 20% pneumothorax on the right. Note that this was a spontaneous pneumothorax and the patient did not have any fall, trauma, or any other surgical procedures done on the right side of the chest. The patient is on a D5 and 150 mg of bicarb infusion rate of 75 mL's an hour. Urine output is in order of 30 mL an hour. The patient remains in atrial fibrillation with a controlled rate. The white cell count is at 7.8 with hemoglobin 8.5. White cell count is improved. Hemoglobin dropped however this was essentially a adequate study for now nontender the previous value was hemoconcentrated. The patient's BUN is on 279. The patient's creatinine is down to 7.9. The patient's serum bicarbs up to 35. I added also normal saline at 75 an hour. The patient me what is still on a broad-spectrum antibiotic coverage utilizing a combination of Rocephin and Zithromax. He is afebrile. I decided not to put any chest tube on the right side as the patient is quite comfortable and there is no evidence of any tension. Nevertheless, I decided to obtain a follow-up chest x-ray at around noontime. This will be needed to monitor the right-sided pneumothorax. On 12/29/2019, patient is being seen for a follow-up. The patient has bilateral pneumonia, respiratory failure, right-sided pneumothorax which has remained stable. The patient has been on room air oxygen. He continues to be on IV fluid was D5 water and 150 mEq of sodium bicarbonate running at 75 mL an hour in addition to a normal saline running at 75 Christy hour. Renal function continues to improve. Creatinine continues to improve. The patient remains on a combination of Rocephin and Zithromax regarding the right lower lobe pneumonia. Cultures of been negative thus far. Nephrotic syndrome the case regarding the acute kidney injury. Today's white cell count is at 7.2. Hemoglobin stable at 9.2. BUN is still elevated at 168 with a creatinine of 7.3 although this is improved compared to yesterday. The neck fluid balance has been +2.9 L 40 yesterday and +3.2 L over the past shift. Nephrology is on the case. Based on the persistent abnormality in the right lower lung area, I proceeded with a CAT scan of the chest and the CAT scan showed a 20% pneumothorax on the right, mo derate to large bilateral pleural effusion with perihilar and basilar infiltrates and a masslike infiltration in the left lower lobe. Discussed the findings with interventional radiology. May consider a pigtail catheter drain the fluid and the pneumothorax and regular chest tube. On 12/30/2019 the patient is being seen for a follow-up. I performed a thoracentesis on this patient yesterday. A total of 900 mL of pleural fluid was aspirated. The right-sided pneumothorax was also removed. There was obvious decrease in size of the right-sided pneumothorax and the fluid analysis came back as transudate consistent with CHF as the patient had low LDH and low protein in the pleural fluid. This morning the patient's pulse ox 98% on room air. The patient was on a bicarb infusion rate of 80 mL an hour. His serum bicarb is up to 26 and the patient will be taken of the sodium bicarb and be p laced on normal saline. The neck fluid balance has been +3.2 L over the past 24 hours. Chest x-ray findings show a small right apical pneumothorax, there is bilateral basilar airspace disease and there is also an ongoing left-sided pleural effusion. The patient otherwise is improving in terms of his renal function. Creatinine slowly improving and the BUN is down to 160 in the creatinine is down to 6.8. Rest of the electrodes are all within normal limits. Calcium level was at 5.5 and the patient was given IV calcium replacement. White cell count is 9.1. Hemoglobin is at 8.7. The antibiotic coverage remains a combination of Rocephin and Zithromax. No other changes and antibiotic cove rage was done for the time being. The pro calcitonin level was 0.51. On 12/31/2019, the patient is looking well and has no specific complaints. Renal function continues to be impaired. Nephrology was considering dialysis, however, based on the ongoing improvement in urine output, dialysis will not be down we'll continue to monitor the patient's renal function. I am still monitoring the patient's respiratory status. The patient remains on broad- spectrum antibiotics. We treated him for a lower lobe pneumonia bilateral, however, based on further evaluations, the patient seems to be having more so pleural effusions. I performed a right-sided thoracentesis evacuating the right-sided pneumothorax and the right-sided pleural effusion. The fluid was a transudate. There is still some residual right-sided pneumothorax on today's chest x-ray. The patient is afebrile. The patient is producing adequate amount of urine output. He remains on the same antibiotic coverage. He is still in a positive fluid balance of 365 mL over the past 24 hours. His BN is at 148. Creatinine is at 6.8. No significant electrolyte disturbances. The white cell count is at 8 with a hemoglobin of 8.3. Reevaluated today on 01/01/20, patient remains in the ICU, he is on room air with O2 saturation in 94%. His IV fluid is at 100 mL/h, and I cut it down to KVO. Patient seems to be doing well since he had his right sided thoracentesis, the fluid turned out to be transudative in nature, and not extubated. Hence I have a feeling that this is all related to acute systolic congestive heart failure rather than pneumonia and parapneumonic effusion. Again the fluid was transudate of and speaks in favor of cardiac etiology of his failure rather than pulmonary etiology. Nonetheless, patient remains empirically on antibiotics coverage. Underlying pneumonia is not entirely ruled out, but at this point I feel it is less likely. Labs today showed WBC count of 8.9 hemoglobin is 7.9. Index was abnormal renal profile remains poor with BUN of 144 creatinine 6.49 minimal improvement compared to yesterday's labs. Clinically however the patient is feeling better, breathing easier, and he is on room air at 94% SaO2. Objective - Vital Signs Vital signs: Vital Signs Temp 96.4 F L 01/01/20 12:00 Pulse 68 01/01/20 12:00 Resp 18 01/01/20 12:00 BP 121/58 01/01/20 12:00 Pulse Ox 98 01/01/20 12:00 Intake & Output 12/31/19 01/01/20 01/01/20 18:59 06:59 18:59 Intake Total 1740 1350 200 Output Total 400 360 175 Balance 1340 990 25 Weight 85.9 kg 85.9 kg Intake: IV 1150 1200 200 Promethazine Inj 6.25 mg 50 In Sodium Chloride 0.9% 50 ml @ 200 mls/hr IVPB Q6HR PRN Rx#:[id number] Sodium Chloride 0.9% 1, 1100 1200 200 000 ml @ 20 mls/hr IV . Q24H [facility]ARL Rx#:[id number] Intake, IV Titration 100 Amount Calcium Gluconate 2 gm In 100 Sodium Chloride 0.9% 100 ml @ 100 mls/hr IVPB ONCE ONE Rx#:[id number] Oral 490 150 Output: Urine 400 360 175 Other: Voiding Method Indwelling Catheter Indwelling Catheter Indwelling Catheter - Exam Physical Exam: Revealed 79-year-old white male in no distress, on room air. Head: Atraumatic, normocephalic. HEENT:[Neck is supple.] [No neck masses.] [No thyromegaly.] [No JVD.] PERRLA, EOMI, no icterus. Dry mucous membranes. Chest: [Diminished breath sounds and crackles at the bases, symmetrical chest expansion.] Cardiac Exam: [Normal S1 and S2, no S3 gallop, no murmur.] Abdomen: [Soft, nontender, no megaly, no rebound, no guarding, normal bowel sounds.] Extremities: [No clubbing, no edema, no cyanosis.] Neurological Exam: [No focal neurologic deficit.] Alert oriented 3, Psychiatric: Normal mood affect and normal mental status examination. Skin: No rashes. Lymphatics: No lymphadenopathy. - Labs CBC & Chem 7: 01/01/20 03:47 01/01/20 03:47 Labs: Abnormal Lab Results - Last 24 Hours (Table) 12/31/19 12/31/19 12/31/19 Range/Units 12:26 17:06 20:47 RBC (4.30-5.90) m/uL Hgb (13.0-17.5) gm/dL Hct (39.0-53.0) % Plt Count (150-450) k/uL BUN (9-20) mg/dL Creatinine (0.66-1.25) mg/dL POC Glucose (mg/dL) 188 H 250 H 256 H (75-99) mg/dL Calcium (8.4-10.2) mg/dL 01/01/20 01/01/20 01/01/20 Range/Units 03:47 03:47 11:41 RBC 2.82 L (4.30-5.90) m/uL Hgb 7.9 L (13.0-17.5) gm/dL Hct 23.8 L (39.0-53.0) % Plt Count 130 L (150-450) k/uL BUN 144 H* (9-20) mg/dL Creatinine 6.49 H (0.66-1.25) mg/dL POC Glucose (mg/dL) 164 H (75-99) mg/dL Calcium 5.8 L* (8.4-10.2) mg/dL Microbiology - Last 24 Hours (Table) 12/26/19 20:20 Blood Culture - Preliminary Blood No Growth after 120 hours 12/29/19 16:15 Gram Stain - Preliminary Pleural Fluid Body Fluid Culture - Preliminary Assessment and Plan Assessment: Impression: Acute systolic congestive heart failure, ejection fraction is 45%, known to have moderate mitral regurgitation and aortic stenosis. Right sided pleural effusion, transudative in nature based on the labs. This is cardiac in nature. Hence doubt underlying pneumonia but is not entirely ruled out. Pro calcitonin is minimally elevated at 0.51. Iatrogenic minimal pneumothorax. Not clearly seen on chest x-ray today. Chronic atrial fibrillation maintained on Eliquis on outpatient basis. Type 2 diabetes with nephropathy. Hypertension. Dyslipidemia. Coronary artery disease and previous CABG in December of 2018. Acute on chronic kidney disease stage IV. Troponin leak History of iron deficiency anemia and previous positive occult blood in the stools. Recommendation: Place IV fluid at KVO at present since the chest x-ray is showing slight worsening of the pleural effusions. Hold on the Lasix for now because of his renal functioning Continue to monitor renal function on a daily basis. Continue to monitor chest x-ray daily. Continue subcu heparin. Continue empiric antibiotics, although I'm not quite convinced that the patient truly had pneumonia. Consider transferring the patient to a monitor bed on selective today. We'll continue to follow. Time with Patient: Less than 30
[2020-01-01 16:32] LABS: Glucose,Whole Blood 226 mg/dL (75-99)
--- NOTE | 2020-01-01 17:31 | PN ---
PROGRESS NOTE DATE OF SERVICE: 01/01/2020 This is a 79-year-old gentleman who was admitted with multiple medical issues including right lower pneumonia also had a right pneumothorax. The patient also had acute kidney injury. The patient also had some heart failure. Patient complaining of severe pain in the left shoulder, which is similar to herpetic pain. The patient had several yesterday according to him, but the patient had limitation of movement of the left shoulder at this time. Multiple consultants including Dr. Dobbs, Nephrology, Cardiology is following the patient closely. The ejection fraction found to be 45%. The patient had significant valve abnormalities including mitral regurgitation, aortic stenosis also. Right-sided pleural effusion has been tapped. The patient had minimal pneumothorax as mentioned earlier. The most recent cytology is pending at this time from the pleural fluid. The most recent chest x-ray which was reviewed personally by me showed lesions on the right side with some residual effusion and minimal possible pneumothorax. PAST MEDICAL HISTORY: Reviewed. REVIEW OF SYSTEMS: CARDIOVASCULAR: As mentioned earlier. RESPIRATORY: As mentioned earlier. GI: No nausea. : No dysuria. NERVOUS SYSTEM: No numbness or weakness. CURRENT MEDICATIONS: Reviewed and include: 1. [place] 5 mg q.6 p.r.n. 2. DuoNeb q.i.d. and p.r.n. 3. Eliquis 5 mg p.o. b.i.d. 4. Vitamin C 500 mg p.o. b.i.d. 5. Aspirin 81 mg p.o. daily. 6. Zithromax 500 mg q.h.s. 7. Rocephin 1 g daily. 8. 60 mcg q.7 days. 9. Vitamin D2 fifty thousand q 7 days. 10.Iron sulfate. 11.Proscar. 12.Heparin. 13.NovoLog. 14.Levemir 10 units subcu q.h.s. 15.Melatonin. 16.Lopressor. 17.Zofran. 18.Protonix. 19.Pravachol. 20.Promethazine. 21.Flomax 0.4 daily. PHYSICAL EXAM: Patient is alert, oriented x3. Pulse 68, blood pressure 116/56, respiration 16, temperature normal, pulse ox 98% on 2 L. HEENT: Conjunctivae normal. Oral mucosa moist. NECK: No jugular venous distention. No lymph node enlargement. CARDIOVASCULAR SYSTEM: S1, S2, muffled. RESPIRATION: Breath sounds diminished at the bases, a few scattered rhonchi, no crackles, especially right more the left. ABDOMEN: Soft, nontender. NERVOUS SYSTEM: No focal deficits. LABS: WBC 8.9, hemoglobin 7.9, creatinine 6.49, calcium 5.8. ASSESSMENT: 1. Congestive heart failure acute exacerbation with acute on chronic systolic dysfunction, ejection fraction 45% with moderate mitral regurgitation, aortic stenosis. 2. Right-sided pleural effusion, status post thoracocentesis and minimal pneumothorax, possibly. 3. Possible right lower lobe pneumonia, possibly gram-negative. 4. Chronic atrial fibrillation. 5. Elevated troponin of indeterminate origin up to 0.259. 6. Diabetes mellitus type 2 with nephropathy. 7. Hypertension. 8. Dyslipidemia. 9. Coronary artery disease, coronary artery bypass grafting. 10.Acute on chronic kidney disease stage IV. 11.History of iron-deficiency anemia with possibly . 12.History of gastroesophageal reflux disease. 13.History of degenerative joint disease. 14.History of coronary artery disease, stent. 15.FULL CODE. RECOMMENDATION: In this 79-year-old gentleman with multiple complex medical issues, will monitor the patient closely. Continue with the current management and symptomatic treatment. Otherwise, we will continue with empiric antibiotics. The creatinine 6.49. Closely follow with multiple consultants including Nephrology and as well as the Pulmonology and as well as Cardiology. The most recent chest x-ray was noted and continue to monitor. Overall prognosis guarded because of multiple complex medical issues. Further recommendations to follow. MMODL / IJN: [id number] / SAIDA
[2020-01-01 20:44] LABS: Glucose,Whole Blood 311 mg/dL (75-99)
[2020-01-01] MEDS: INSULIN DETEMIR (LEVEMIR) 100 UNIT/ML SYR SQ SCH (21:15)
[2020-01-01] MEDS: AZITHROMYCIN 500 MG TAB PO SCH (21:16)
[2020-01-01] MEDS: APIXABAN 5 MG TAB PO SCH (21:16)
[2020-01-01] MEDS: MELATONIN 3 MG TABLET PO SCH (21:17)
[2020-01-02 04:33] LABS: HCT 24.4 % (39.0-53.0); MCH 28.1 pg (25.0-35.0); MCHC 32.9 g/dL (31.0-37.0); MCV 85.3 fL (80.0-100.0); Mean Platelet Volume 7.8; Platelet Count 120 k/uL (150-450); RBC 2.86 m/uL (4.30-5.90); RDW 14.3 % (11.5-15.5); WBC 8.6 k/uL (3.8-10.6)
[2020-01-02 05:09] LABS: Potassium 4.3 mmol/L (3.5-5.1)
[2020-01-02 05:28] LABS: Calcium 6.1 mg/dL (8.4-10.2)
[2020-01-02] MEDS ORDERED: CALCIUM GLUCONATE 2 GM in SODIUM CHLORIDE 0.9% 100 ML IVPB ONE (06:46)
[2020-01-02 06:49] LABS: Glucose,Whole Blood 136 mg/dL (75-99)
[2020-01-02 07:21] LABS: Glucose,Whole Blood 179 mg/dL (75-99)
[2020-01-02] MEDS: INSULIN ASPART (NovoLOG) 100 UNIT/ML VIAL SQ SCH ×4 (07:23→20:43)
--- NOTE | 2020-01-02 07:59 | XR ---
EXAMINATION TYPE: XR chest 1V portable DATE OF EXAM: 01/02/2020 Comparison: 01/01/2020 Clinical History: 79-year-old male exertional dyspnea Findings: Median sternotomy wires with postoperative clips in the mediastinum. Heart remains enlarged. Small bi lateral effusions remain with a right sided mid and lower lung opacity and left basilar opacity. Impression: Stable cardiomegaly with continued small effusions and consolidation within the right mid and lower l shelby and left base. Either sequela of CHF or pneumonia. Clinically correlate.
[2020-01-02] MEDS: hydrALAZINE HCL 25 MG TAB PO SCH ×2 (08:31→20:45)
[2020-01-02] MEDS: CALCIUM CARBONATE 500 MG CHEWABLE PO SCH ×2 (08:31→20:44)
[2020-01-02] MEDS: ASCORBIC ACID 500 MG TAB PO SCH ×3 (08:31→17:33)
[2020-01-02] MEDS: METOPROLOL TARTRATE 25 MG TAB PO SCH ×2 (08:31→20:44)
[2020-01-02] MEDS: ERGOCALCIFEROL 50,000 UNIT CAP PO SCH ×2 (08:31→08:58)
[2020-01-02] MEDS: SODIUM BICARBONATE TAB 650 MG TAB PO SCH ×2 (08:31→20:45)
[2020-01-02] MEDS: ASPIRIN 81 MG PO SCH (08:31)
[2020-01-02] MEDS: TAMSULOSIN 0.4 MG CAP.ER.24H PO SCH ×3 (08:31→20:44)
[2020-01-02] MEDS: PRAVASTATIN SODIUM 80 MG TAB PO SCH ×2 (08:31→08:58)
[2020-01-02] MEDS: FINASTERIDE 5 MG TAB PO SCH (08:32)
[2020-01-02] MEDS: PANTOPRAZOLE 40 MG TABLET PO SCH (08:32)
[2020-01-02] MEDS: APIXABAN 5 MG TAB PO SCH ×2 (08:32→20:44)
[2020-01-02] MEDS: AMMONIUM LACTATE 12% CREAM 140 GM TUBE TOPICAL SCH ×2 (08:32→20:43)
[2020-01-02] MEDS: FERROUS SULFATE 325 MG TAB PO SCH ×2 (08:32→20:44)
--- NOTE | 2020-01-02 08:40 | P.PN ---
Subjective Patient is seen in follow-up for acute kidney injury on chronic kidney disease. Renal function is not improving. Urine output about 30 mL an hour. Oral intake is fair. Feels tired. Vital signs are stable. General: The patient appeared well nourished and normally developed. Lethargic. HEENT: Head exam is unremarkable. Neck is without jugular venous distension. LUNGS: Lungs are clear to auscultation and percussion. Breath sounds decreased. HEART: Rate and Rhythm are regular. ABDOMEN: Nontender, nondistended. EXTREMITITES: Lower extremities wrapped. 1+ edema. Objective - Vital Signs Vital signs: Vital Signs Temp 98.2 F 01/02/20 04:00 Pulse 68 01/02/20 05:00 Resp 17 01/02/20 05:00 BP 107/56 01/02/20 05:00 Pulse Ox 91 L 01/02/20 05:00 Intake & Output 01/01/20 01/02/20 01/02/20 18:59 06:59 18:59 Intake Total 440 270 20 Output Total 420 415 30 Balance 20 -145 -10 Weight 85.9 kg 87.7 kg Intake: IV 340 270 20 Sodium Chloride 0.9% 1, 340 220 20 000 ml @ 20 mls/hr IV . Q24H [facility] Rx#:[id number] cefTRIAXone 1 gm In 50 Sodium Chloride 0.9% 50 ml @ 100 mls/hr IVPB HS [facility]ARL Rx#:[id number] Intake, IV Titration 100 Amount Calcium Gluconate 2 gm In 100 Sodium Chloride 0.9% 100 ml @ 60 mls/hr IVPB ONCE ONE Rx#:[id number] Output: Urine 420 415 30 Other: Voiding Method Indwelling Catheter Indwelling Catheter - Labs CBC & Chem 7: 01/02/20 03:37 01/02/20 03:37 Labs: Abnormal Lab Results - Last 24 Hours (Table) 01/01/20 01/01/20 01/01/20 Range/Units 11:41 16:30 20:42 RBC (4.30-5.90) m/uL Hgb (13.0-17.5) gm/dL Hct (39.0-53.0) % Plt Count (150-450) k/uL Sodium (137-145) mmol/L Carbon Dioxide (22-30) mmol/L BUN (9-20) mg/dL Creatinine (0.66-1.25) mg/dL Glucose (74-99) mg/dL POC Glucose (mg/dL) 164 H 226 H 311 H (75-99) mg/dL Calcium (8.4-10.2) mg/dL 01/02/20 01/02/20 01/02/20 Range/Units 03:37 03:37 06:47 RBC 2.86 L (4.30-5.90) m/uL Hgb 8.0 L (13.0-17.5) gm/dL Hct 24.4 L (39.0-53.0) % Plt Count 120 L (150-450) k/uL Sodium 136 L (137-145) mmol/L Carbon Dioxide 18 L (22-30) mmol/L BUN 137 H* (9-20) mg/dL Creatinine 6.28 H (0.66-1.25) mg/dL Glucose 124 H (74-99) mg/dL POC Glucose (mg/dL) 136 H (75-99) mg/dL Calcium 6.1 L* (8.4-10.2) mg/dL 01/02/20 Range/Units 07:20 RBC (4.30-5.90) m/uL Hgb (13.0-17.5) gm/dL Hct (39.0-53.0) % Plt Count (150-450) k/uL Sodium (137-145) mmol/L Carbon Dioxide (22-30) mmol/L BUN (9-20) mg/dL Creatinine (0.66-1.25) mg/dL Glucose (74-99) mg/dL POC Glucose (mg/dL) 179 H (75-99) mg/dL Calcium (8.4-10.2) mg/dL Microbiology - Last 24 Hours (Table) 12/26/19 20:20 Blood Culture - Final Blood No Growth after 144 hours 12/29/19 16:15 Gram Stain - Preliminary Pleural Fluid Body Fluid Culture - Preliminary Assessment and Plan Plan: Assessment: 1. Acute kidney injury secondary to ATN secondary to volume depletion and sepsis. Renal function not significantly improved. Creatinine 6.28. Urine output about 30 mL an hour. 2. Chronic kidney disease stage IV secondary to diabetic kidney disease with baseline creatinine near 2. 3. Chronic systolic CHF with ejection fraction of 45-50% with moderate mitral regurgitation. 4. Hypocalcemia secondary to acute kidney injury. 5. Pneumonia maintained on antibiotics. 6. Anemia of chronic kidney disease maintained on Aranesp. 7. Insulin-dependent diabetes mellitus. 8. Hypertension with chronic kidney disease. Blood pressure on the lower side. 9. Metabolic acidosis secondary to acute kidney injury maintained on oral sodium bicarbonate. Plan: Replace calcium. 2 g IV calcium gluconate today. Hold hydralazine for systolic blood pressure less than 120. With severely impaired GFR, persistent acidosis and signs of uremia, I will initiate renal replacement therapy today. Consult vascular surgery for dialysis catheter placement. First treatment of hemodialysis today and second treatment tomorrow.
[2020-01-02] MEDS: ONDANSETRON 4 MG/2 ML VIAL IVP PRN (08:41)
--- NOTE | 2020-01-02 11:12 | P.PN ---
Subjective Progress Note Date: 01/02/20 Principal diagnosis: Acute hypoxic respiratory failure secondary to acute systolic congestive heart failure possible right lower lobe pneumonia, this is not confirmed at this point yet. 79-year-old male patient who came into the emergency department complaining of worsening shortness of breath. He denied having any significant cough or sputum production. Denied having any sick contacts including exposure to COVID 19. He was however getting more short of breath and addition to that he was coughing out some thick sputum. Denied having any chest pain. No nausea. No vomiting. No abdominal pain. He has multiple medical problems and comorbidities in summary, the patient has history of chronic kidney disease stage 3-4, coronary artery disease with previous bypass surgery that was done in December 2018, diabetes mellitus with history of diabetic nephropathy, hypertension, hyperlipidemia, chronic atrial fibrillation and chronic congestion heart failure. His workup in emergency department revealed the following He had a chest x-ray that showed better pleural effusion in addition to a right lower lobe consolidation. EKG showed no acute ST segment elevation or depression. There was a right bundle branch block pattern with a sinus rhythm His blood work showed an acute on top of chronic kidney injury. His creatinine was up to 8.3 with a potassium level of 5.4 in the sodium level [id number]. Note that his baseline creatinine was as high as 2.4. He did have some mild troponin elevation with levels being at 0.08, 0.11 and 0.25 respectively His occult stool was also positive His blood gases showed metabolic acidosis with a pH of 7.11 and a pCO2 of 22 and pO2 of 118 The patient was seen in intensive care unit. Despite his metabolic acidosis, the patient was awake and alert and following commands and answering course appropriately. Clinically , he was quite dry including grasses mucous membranes without any significant edema in lower extremities bilaterally. He was given IV fluids and recommended giving another liter of bolus and maintaining him on a bicarb infusion with D5 and 150 mEq of sodium bicarbonate to be relatively 5 mL an hour. He was started on broad-spectrum antibiotics. He was given accommodation Rocephin and Zithromax. I held his diuretics for now. His echocardiogram from previous evaluations have shown an ejection fraction of 40- 45% and his last cardiac catheterization was done in November 2018 showing GONZALEZ to LAD, saphenous vein graft to diagonal branch and acute marginal branch and left PDA. He had essentially nonocclusive disease. He has mild aortic stenosis and moderate mitral regurgitation. On 12/28/2019, the patient is being seen for a follow-up in the intensive care unit. Note that the patient was being treated for right lower lobe pneumonia/bilateral pneumonia and the patient was given a broad-spectrum an tibiotic coverage. He was also in acute on chronic kidney injury and the patient was resuscitated IV fluids. On today's evaluation, the patient is quite comfortable and he is still on room air oxygen. His chest x-ray from today shows a 15th 20% pneumothorax on the right. Note that this was a spontaneous pneumothorax and the patient did not have any fall, trauma, or any other surgical procedures done on the right side of the chest. The patient is on a D5 and 150 mg of bicarb infusion rate of 75 mL's an hour. Urine output is in order of 30 mL an hour. The patient remains in atrial fibrillation with a controlled rate. The white cell count is at 7.8 with hemoglobin 8.5. White cell count is improved. Hemoglobin dropped however this was essentially a adequate study for now nontender the previous value was hemoconcentrated. The patient's BUN is on 279. The patient's creatinine is down to 7.9. The patient's serum bicarbs up to 35. I added also normal saline at 75 an hour. The patient me what is still on a broad-spectrum antibiotic coverage utilizing a combination of Rocephin and Zithromax. He is afebrile. I decided not to put any chest tube on the right side as the patient is quite comfortable and there is no evidence of any tension. Nevertheless, I decided to obtain a follow-up chest x-ray at around noontime. This will be needed to monitor the right-sided pneumothorax. On 12/29/2019, patient is being seen for a follow-up. The patient has bilateral pneumonia, respiratory failure, right-sided pneumothorax which has remained stable. The patient has been on room air oxygen. He continues to be on IV fluid was D5 water and 150 mEq of sodium bicarbonate running at 75 mL an hour in addition to a normal saline running at 75 Christy hour. Renal function continues to improve. Creatinine continues to improve. The patient remains on a combination of Rocephin and Zithromax regarding the right lower lobe pneumonia. Cultures of been negative thus far. Nephrotic syndrome the case regarding the acute kidney injury. Today's white cell count is at 7.2. Hemoglobin stable at 9.2. BUN is still elevated at 168 with a creatinine of 7.3 although this is improved compared to yesterday. The neck fluid balance has been +2.9 L 40 yesterday and +3.2 L over the past shift. Nephrology is on the case. Based on the persistent abnormality in the right lower lung area, I proceeded with a CAT scan of the chest and the CAT scan showed a 20% pneumothorax on the right, mo derate to large bilateral pleural effusion with perihilar and basilar infiltrates and a masslike infiltration in the left lower lobe. Discussed the findings with interventional radiology. May consider a pigtail catheter drain the fluid and the pneumothorax and regular chest tube. On 12/30/2019 the patient is being seen for a follow-up. I performed a thoracentesis on this patient yesterday. A total of 900 mL of pleural fluid was aspirated. The right-sided pneumothorax was also removed. There was obvious decrease in size of the right-sided pneumothorax and the fluid analysis came back as transudate consistent with CHF as the patient had low LDH and low protein in the pleural fluid. This morning the patient's pulse ox 98% on room air. The patient was on a bicarb infusion rate of 80 mL an hour. His serum bicarb is up to 26 and the patient will be taken of the sodium bicarb and be p laced on normal saline. The neck fluid balance has been +3.2 L over the past 24 hours. Chest x-ray findings show a small right apical pneumothorax, there is bilateral basilar airspace disease and there is also an ongoing left-sided pleural effusion. The patient otherwise is improving in terms of his renal function. Creatinine slowly improving and the BUN is down to 160 in the creatinine is down to 6.8. Rest of the electrodes are all within normal limits. Calcium level was at 5.5 and the patient was given IV calcium replacement. White cell count is 9.1. Hemoglobin is at 8.7. The antibiotic coverage remains a combination of Rocephin and Zithromax. No other changes and antibiotic cove rage was done for the time being. The pro calcitonin level was 0.51. On 12/31/2019, the patient is looking well and has no specific complaints. Renal function continues to be impaired. Nephrology was considering dialysis, however, based on the ongoing improvement in urine output, dialysis will not be down we'll continue to monitor the patient's renal function. I am still monitoring the patient's respiratory status. The patient remains on broad- spectrum antibiotics. We treated him for a lower lobe pneumonia bilateral, however, based on further evaluations, the patient seems to be having more so pleural effusions. I performed a right-sided thoracentesis evacuating the right-sided pneumothorax and the right-sided pleural effusion. The fluid was a transudate. There is still some residual right-sided pneumothorax on today's chest x-ray. The patient is afebrile. The patient is producing adequate amount of urine output. He remains on the same antibiotic coverage. He is still in a positive fluid balance of 365 mL over the past 24 hours. His BN is at 148. Creatinine is at 6.8. No significant electrolyte disturbances. The white cell count is at 8 with a hemoglobin of 8.3. Reevaluated today on 01/01/20, patient remains in the ICU, he is on room air with O2 saturation in 94%. His IV fluid is at 100 mL/h, and I cut it down to KVO. Patient seems to be doing well since he had his right sided thoracentesis, the fluid turned out to be transudative in nature, and not extubated. Hence I have a feeling that this is all related to acute systolic congestive heart failure rather than pneumonia and parapneumonic effusion. Again the fluid was transudate of and speaks in favor of cardiac etiology of his failure rather than pulmonary etiology. Nonetheless, patient remains empirically on antibiotics coverage. Underlying pneumonia is not entirely ruled out, but at this point I feel it is less likely. Labs today showed WBC count of 8.9 hemoglobin is 7.9. Index was abnormal renal profile remains poor with BUN of 144 creatinine 6.49 minimal improvement compared to yesterday's labs. Clinically however the patient is feeling better, breathing easier, and he is on room air at 94% SaO2. Reevaluated today on 01/02/20, patient ICU, he is presently on room air, he feels generally weak, tired, he is negative fluid balance over the last 24 hours by 125 ML. Renal functioning seems to be worsening. Patient remains in atrial flutter however rate is 70 beats per minutes. Continues to have fine crackles at the bases. And chest x-ray is suggestive of mild interstitial edema and small tiny pleural effusions. Discussed his condition with nephrology, and considering his renal status, patient is being considered for hemodialysis today. Patient is hemodynamically stable. But again he feels extremely weak and tired. Renal profile is worse with a BUN of 137 creatinine 6.28. CBC showed WBC count of 8.6 hemoglobin is 8. Objective - Vital Signs Vital signs: Vital Signs Temp 97.8 F 01/02/20 08:00 Pulse 68 01/02/20 08:00 Resp 17 01/02/20 08:00 BP 95/55 01/02/20 08:00 Pulse Ox 98 01/02/20 08:00 Intake & Output 01/01/20 01/02/20 01/02/20 18:59 06:59 18:59 Intake Total 440 270 20 Output Total 420 415 30 Balance 20 -145 -10 Weight 85.9 kg 87.7 kg Intake: IV 340 270 20 Sodium Chloride 0.9% 1, 340 220 20 000 ml @ 20 mls/hr IV . Q24H [facility] Rx#:[id number] cefTRIAXone 1 gm In 50 Sodium Chloride 0.9% 50 ml @ 100 mls/hr IVPB HS [facility] Rx#:[id number] Intake, IV Titration 100 Amount Calcium Gluconate 2 gm In 100 Sodium Chloride 0.9% 100 ml @ 60 mls/hr IVPB ONCE ONE Rx#:[id number] Output: Urine 420 415 30 Other: Voiding Method Indwelling Catheter Indwelling Catheter - Exam Physical Exam: Revealed 79-year-old white male in no distress, on room air. Looks frail and chronically ill. Head: Atraumatic, normocephalic. HEENT:[Neck is supple.] [No neck masses.] [No thyromegaly.] [No JVD.] PERRLA, EOMI, no icterus. Dry mucous membranes. Chest: [Diminished breath sounds and crackles at the bases, no chest wall tenderness. Cardiac Exam: [Normal S1 and S2, no S3 gallop, no murmur.] Abdomen: [Soft, nontender, no megaly, no rebound, no guarding, normal bowel sounds.] Extremities: [No clubbing, no edema, no cyanosis.] Neurological Exam: [No focal neurologic deficit.] Alert oriented 3, Psychiatric: Normal mood affect and normal mental status examination. Skin: No rashes. Lymphatics: No lymphadenopathy. - Labs CBC & Chem 7: 01/02/20 03:37 01/02/20 03:37 Labs: Abnormal Lab Results - Last 24 Hours (Table) 01/01/20 01/01/20 01/01/20 Range/Units 11:41 16:30 20:42 RBC (4.30-5.90) m/uL Hgb (13.0-17.5) gm/dL Hct (39.0-53.0) % Plt Count (150-450) k/uL Sodium (137-145) mmol/L Carbon Dioxide (22-30) mmol/L BUN (9-20) mg/dL Creatinine (0.66-1.25) mg/dL Glucose (74-99) mg/dL POC Glucose (mg/dL) 164 H 226 H 311 H (75-99) mg/dL Calcium (8.4-10.2) mg/dL 01/02/20 01/02/20 01/02/20 Range/Units 03:37 03:37 06:47 RBC 2.86 L (4.30-5.90) m/uL Hgb 8.0 L (13.0-17.5) gm/dL Hct 24.4 L (39.0-53.0) % Plt Count 120 L (150-450) k/uL Sodium 136 L (137-145) mmol/L Carbon Dioxide 18 L (22-30) mmol/L BUN 137 H* (9-20) mg/dL Creatinine 6.28 H (0.66-1.25) mg/dL Glucose 124 H (74-99) mg/dL POC Glucose (mg/dL) 136 H (75-99) mg/dL Calcium 6.1 L* (8.4-10.2) mg/dL 01/02/20 Range/Units 07:20 RBC (4.30-5.90) m/uL Hgb (13.0-17.5) gm/dL Hct (39.0-53.0) % Plt Count (150-450) k/uL Sodium (137-145) mmol/L Carbon Dioxide (22-30) mmol/L BUN (9-20) mg/dL Creatinine (0.66-1.25) mg/dL Glucose (74-99) mg/dL POC Glucose (mg/dL) 179 H (75-99) mg/dL Calcium (8.4-10.2) mg/dL Microbiology - Last 24 Hours (Table) 12/26/19 20:20 Blood Culture - Final Blood No Growth after 144 hours 12/29/19 16:15 Gram Stain - Preliminary Pleural Fluid Body Fluid Culture - Preliminary Assessment and Plan Assessment: Impression: Acute systolic congestive heart failure, ejection fraction is 45%, known to have moderate mitral regurgitation and aortic stenosis. Right sided pleural effusion, transudative in nature based on the labs. This is cardiac in nature. Hence doubt underlying pneumonia but is not entirely ruled out. Pro calcitonin is minimally elevated at 0.51. Iatrogenic minimal pneumothorax. Resolved. Chronic atrial fibrillation maintained on Eliquis on outpatient basis. Type 2 diabetes with nephropathy. Hypertension. Dyslipidemia. Coronary artery disease and previous CABG in December of 2018. Acute on chronic kidney disease stage IV. Troponin leak History of iron deficiency anemia and previous positive occult blood in the stools. Recommendation: Agree with plans for hemodialysis today. Place IV fluid at KVO Continue to hold diuretics. Continue to monitor renal function on a daily basis. Continue to monitor chest x-ray daily. Continue Eliquis. Continue empiric antibiotics, although I'm not quite convinced that the patient truly had pneumonia. Consider transferring the patient to a monitor bed on selective today. Once a bed becomes available. Discussed his condition with nephrology on the case. And again the plan is to start hemodialysis today. We'll continue to follow. Time with Patient: Less than 30
[2020-01-02] MEDS ORDERED: LIDOCAINE 1% INJ 10MG/ML (20 ML MDV) ONE (11:20)
[2020-01-02] MEDS ORDERED: HEPARIN SODIUM 1,000 UN/ML (10ML VL) ONE (11:20)
[2020-01-02 11:53] LABS: Glucose,Whole Blood 80 mg/dL (75-99)
--- NOTE | 2020-01-02 12:34 | CONS ---
DATE OF CONSULTATION: 01/02/2020 This is a 79-year-old gentleman who has been admitted to ICU with multiple medical problems. The patient has acute chronic renal failure. I was consulted for placement of the dialysis catheter. PAST MEDICAL HISTORY: Includes history of atrial fibrillation, coronary artery disease, diabetes mellitus, hyperlipidemia, hypertension. SURGICAL HISTORY: History of CABG, history of atrial fibrillation, coronary artery disease, chronic renal failure, appendectomy, and coronary artery stent placement. PHYSICAL EXAMINATION: Patient was seen in the intensive care unit. The patient is lying comfortably in bed. NECK: Supple. Trachea central. CHEST: A few crackles at the lung bases. ABDOMEN: Soft. Femorals are 1+. PLAN: Placement of the dialysis catheter. Risks and complications discussed. MMODL / IJN: [id number] / MTDD
--- NOTE | 2020-01-02 12:34 | PCN ---
PROCEDURE NOTE PREOPERATIVE DIAGNOSIS: Acute renal failure. POSTOPERATIVE DIAGNOSIS: Acute renal failure. PROCEDURE: Ultrasound-guided triple-lumen dialysis catheter via right femoral approach. Patient was seen in the room. Right groin was prepped and draped in a sterile manner. After that, 1% lidocaine were infiltrated right groin area. Then ultrasound-guided micropuncture introduced right common femoral vein and micropuncture guidewire was passed and 4-Kiswahili dilator on top of the guidewire. Then we passed a regular guidewire and dilator was advanced and triple-lumen catheter advanced on top of the guidewire. The guidewire was removed and flushed with heparin saline and hep-locked. The catheter was secured with 3-0 nylon, dressing applied. Patient tolerated the procedure well. MMODL / IJN: [id number] /
--- NOTE | 2020-01-02 13:10 | XR ---
EXAMINATION TYPE: XR shoulder complete LT DATE OF EXAM: 01/02/2020 COMPARISON: NONE HISTORY: Pain TECHNIQUE: Shoulder examined in 3 views FINDINGS: The humeral head articulates with the glenoid. There is some elevation of the humerus in relation to the glenoid. Chronic rotator cuff tear is not entirely excluded. The acromio-clavicular junction is normal. No acute fractures or dislocations are evident. A follow up study can be performed 7-10 days from acute trauma for continued pain. IMPRESSION: 1. No acute osseous abnormality. 2. Chronic rotator cuff tear cannot be excluded.
--- NOTE | 2020-01-02 16:09 | PN ---
PROGRESS NOTE DATE OF SERVICE: 01/02/2020 This is a 79-year-old gentleman admitted with multiple medical issues including CHF acute exacerbation, also developed renal failure. Patient also had right pleural effusion. Patient also had pneumonia. The patient also suspected mild pneumothorax on the right side. However, the patient had definitely elevated creatinine levels at 6.28 and a dialysis catheter was inserted by Dr. Patrick and the patient was started on hemodialysis today. PAST MEDICAL HISTORY: Reviewed. REVIEW OF SYSTEMS: CARDIOVASCULAR SYSTEM: As mentioned earlier. GI: As mentioned earlier. : As mentioned earlier. NERVOUS SYSTEM: Diffusely weak. CURRENT MEDICATIONS: Reviewed and include: 1. Moosic 5 mg q.6 p.r.n. 2. DuoNeb q.i.d. and p.r.n. 3. Eliquis 5 mg p.o. b.i.d. 4. Vitamin C 500 mg p.o. b.i.d. 5. Aspirin 81 mg p.o. daily. 6. Zithromax 500 mg q.h.s. 7. Rocephin 1 g daily. 8. Aranesp 60 mcg q.7 days. 9. Vitamin D2 fifty thousand q.72 days. 10.Iron sulfate 320 mg p.o. b.i.d. 11.Proscar 5 mg p.o. daily. 12.Apresoline 25 mg p.o. b.i.d. 13.NovoLog scale. 14.Levemir 10 units subcu q.h.s. 15.Lactic acid 1 b.i.d. 16.Melatonin 3 mg q.h.s. 17.Lopressor 25 mg p.o. b.i.d. 18.Zofran 4 mg p.r.n. 19.Protonix 40 mg p.o. daily. 20.Pravachol 80 mg p.o. q.h.s. 21.Flomax 0.4 daily. PHYSICAL EXAM: Patient is alert and oriented x2. Pulse 76. Blood pressure 111/65. respiration 13, temperature 97.8, pulse ox 98% on room air. Conjunctivae normal. Oral mucosa moist. NECK: No jugular venous distention. No lymph node enlargement. CARDIOVASCULAR SYSTEM: S1, S2, muffled. RESPIRATION: Breath sounds diminshed at the bases, a few scattered rhonchi, no crackles. ABDOMEN: Soft, nontender. LEGS: No edema. No swelling. NERVOUS SYSTEM: No focal deficit. LABS: WBC 8.2, hemoglobin is 8, sodium is 136, potassium 4.3, creatinine 6.28, calcium 6.1. ASSESSMENT: 1. Congestive heart failure acute exacerbation with acute on chronic systolic dysfunction, ejection fraction 45% with moderate mitral regurgitation and aortic stenosis. 2. Acute renal failure, possibly acute tubular necrosis on the newly started hemodialysis. 3. Right-sided pleural effusion, status post thoracocentesis, minimal suspected pneumothorax, possibly. 4. Possible right lower lobe pneumonia, possibly gram-negative. 5. Chronic atrial fibrillation. 6. Elevated troponin of undetermined origin with 0.259. 7. Diabetes mellitus type 2 with nephropathy. 8. Hypertension. 9. Dyslipidemia. 10.History of coronary artery disease, coronary artery bypass grafting. 11.History of chronic kidney disease stage IV, on the baseline. 12.History of iron deficiency anemia with possibly secondary to chronic disease. 13.History of gastroesophageal reflux disease. 14.History of degenerative joint disease. 15.History of coronary artery disease, stent. 16.FULL CODE. RECOMMENDATION: Recommend to continue current medications, symptomatic treatment. Hemodialysis initiated. We will monitor fluid/electrolyte balance closely. Otherwise, continue to monitor and patient also complaining of shoulder pain and shoulder x-rays have been obtained, recommend no acute abnormality. Chronic rotator cuff tear cannot be excluded. Recommend PT, OT. Continue with rehab and orthopedic evaluation as an outpatient. Otherwise, prognosis guarded because of multiple complex medical issues. A chest x-ray was done today which was personally reviewed by me showed significant lesions on the right side with some pleural effusion but please note this is done before the initiation of dialysis. Once again, prognosis guarded. Further recommendations to follow. MMODL / IJN: [id number] /
[2020-01-02] MEDS ORDERED: DEXTROSE 50% SYRINGE 50 ML IVP ONE (16:41)
[2020-01-02 16:42] LABS: Glucose,Whole Blood 67 mg/dL (75-99)
[2020-01-02 17:01] LABS: Glucose,Whole Blood 80 mg/dL (75-99)
[2020-01-02 17:01] LABS: Hepatitis B Surface AB- Quant 3.5 mIU/mL; Hepatitis B Surface Antibody Non-Reactive (Non-Reactive); Hepatitis B Surface Antigen Non-Reactive (Non-Reactive)
[2020-01-02] MEDS: SODIUM CHLORIDE 0.9% 1,000 ML IV SCH (17:24)
[2020-01-02 20:38] LABS: Glucose,Whole Blood 202 mg/dL (75-99)
[2020-01-02] MEDS: INSULIN DETEMIR (LEVEMIR) 100 UNIT/ML SYR SQ SCH (20:43)
[2020-01-02] MEDS: AZITHROMYCIN 500 MG TAB PO SCH (20:44)
[2020-01-02] MEDS: MELATONIN 3 MG TABLET PO SCH (20:45)
[2020-01-03 04:39] LABS: HGB 8.1 gm/dL (13.0-17.5); MCH 28.1 pg (25.0-35.0); MCHC 33.7 g/dL (31.0-37.0); MCV 83.5 fL (80.0-100.0); Mean Platelet Volume 8.2; Platelet Count 139 k/uL (150-450); RBC 2.87 m/uL (4.30-5.90); RDW 14.8 % (11.5-15.5); WBC 9.1 k/uL (3.8-10.6)
[2020-01-03 04:57] LABS: Calcium 6.8 mg/dL (8.4-10.2); Potassium 4.5 mmol/L (3.5-5.1)
[2020-01-03 05:04] LABS: Eosinophils # (M) 0.36 k/uL (0-0.7); Lymphocytes # (M) 0.46 k/uL (1.0-4.8); Monocytes # (M) 0.73 k/uL (0-1.0); Neutrophils # (M) 7.55 k/uL (1.3-7.7); Neutrophils % (M) 83 %; Nucleated Red Blood Cells 0 /100 WBC (0-0); Total Cells Counted 100
[2020-01-03 05:05] LABS: Anisocytosis (M) Present; Hypochromasia (M) Present
[2020-01-03 05:06] LABS: Poikilocytosis (M) Present
[2020-01-03] MEDS: INSULIN ASPART (NovoLOG) 100 UNIT/ML VIAL SQ SCH ×4 (06:32→22:40)
[2020-01-03 06:33] LABS: Glucose,Whole Blood 70 mg/dL (75-99)
--- NOTE | 2020-01-03 07:23 | XR ---
EXAMINATION TYPE: XR chest 1V DATE OF EXAM: 01/03/2020 COMPARISON: 01/02/2020 INDICATION: CHF TECHNIQUE: Single frontal view of the chest is obtained. FINDINGS: The heart size is enlarged. The pulmonary vasculature is normal. There is diffuse increased lung markings to the right lung and at the left base. Small pleural effusi ons. Present. Findings are stable. IMPRESSION: 1. Findings can be compatible with congestive heart failure in the proper clinical setting. Findings are stable from comparison.
--- NOTE | 2020-01-03 09:04 | P.PN ---
Subjective Patient is seen in follow-up for acute kidney injury on chronic kidney disease. Started on hemodialysis January 01. Urine output about 30 mL an hour. Oral intake is fair. Feels better today. Vital signs are stable. General: The patient appeared well nourished and normally developed. Lethargic. HEENT: Head exam is unremarkable. Neck is without jugular venous distension. LUNGS: Lungs are clear to auscultation and percussion. Breath sounds decreased. HEART: Rate and Rhythm are regular. ABDOMEN: Nontender, nondistended. EXTREMITITES: Lower extremities wrapped. 1+ edema. Objective - Vital Signs Vital signs: Vital Signs Temp 97.5 F L 01/03/20 04:00 Pulse 68 01/03/20 04:00 Resp 16 01/03/20 04:00 BP 118/64 01/03/20 04:00 Pulse Ox 99 01/03/20 04:00 Intake & Output 01/02/20 01/03/20 01/03/20 18:59 06:59 18:59 Intake Total 240 110 Output Total 855 295 Balance -615 -185 Weight 87.7 kg Intake: IV 240 110 Sodium Chloride 0.9% 1, 240 110 000 ml @ 20 mls/hr IV . Q24H [facility] Rx#:[id number] Output: Urine 355 295 Hemodialysis 500 Other: Voiding Method Indwelling Catheter Indwelling Catheter - Labs CBC & Chem 7: 01/03/20 03:49 01/03/20 03:49 Labs: Abnormal Lab Results - Last 24 Hours (Table) 01/02/20 01/02/20 01/03/20 Range/Units 16:40 20:37 03:49 RBC 2.87 L (4.30-5.90) m/uL Hgb 8.1 L (13.0-17.5) gm/dL Hct 24.0 L (39.0-53.0) % Plt Count 139 L (150-450) k/uL Lymphocytes # (Manual) 0.46 L (1.0-4.8) k/uL Sodium (137-145) mmol/L BUN (9-20) mg/dL Creatinine (0.66-1.25) mg/dL Glucose (74-99) mg/dL POC Glucose (mg/dL) 67 L 202 H (75-99) mg/dL Calcium (8.4-10.2) mg/dL 01/03/20 01/03/20 Range/Units 03:49 06:31 RBC (4.30-5.90) m/uL Hgb (13.0-17.5) gm/dL Hct (39.0-53.0) % Plt Count (150-450) k/uL Lymphocytes # (Manual) (1.0-4.8) k/uL Sodium 136 L (137-145) mmol/L BUN 111 H* (9-20) mg/dL Creatinine 5.22 H (0.66-1.25) mg/dL Glucose 70 L (74-99) mg/dL POC Glucose (mg/dL) 70 L (75-99) mg/dL Calcium 6.8 L (8.4-10.2) mg/dL Microbiology - Last 24 Hours (Table) 01/02/20 08:45 Gram Stain - Final Sputum Sputum Culture - Final 12/29/19 16:15 Gram Stain - Final Pleural Fluid Body Fluid Culture - Final 12/29/19 16:15 Anaerobic Culture - Final Pleural Fluid Assessment and Plan Plan: Assessment: 1. Acute kidney injury secondary to ATN secondary to volume depletion and sepsis. Started on hemodialysis January 01. Creatinine was over 9 on admission with no significant improvement in his renal function. Urine output about 30 mL an hour. 2. Chronic kidney disease stage IV secondary to diabetic kidney disease with baseline creatinine near 2. 3. Chronic systolic CHF with ejection fraction of 45-50% with moderate mitral regurgitation. 4. Hypocalcemia secondary to acute kidney injury. Improved post replacement. 5. Pneumonia maintained on antibiotics. 6. Anemia of chronic kidney disease maintained on Aranesp. 7. Insulin-dependent diabetes mellitus. 8. Hypertension with chronic kidney disease. Blood pressure on the lower side. 9. Metabolic acidosis secondary to acute kidney injury maintained on oral sodium bicarbonate. Plan: Second treatment of hemodialysis today. Discontinue hydralazine.
[2020-01-03] MEDS: ASPIRIN 81 MG PO SCH (09:42)
[2020-01-03] MEDS: APIXABAN 5 MG TAB PO SCH ×2 (09:42→20:52)
[2020-01-03] MEDS: PANTOPRAZOLE 40 MG TABLET PO SCH (09:42)
[2020-01-03] MEDS: TAMSULOSIN 0.4 MG CAP.ER.24H PO SCH ×2 (09:43→20:52)
[2020-01-03] MEDS: FINASTERIDE 5 MG TAB PO SCH (09:43)
[2020-01-03] MEDS: FERROUS SULFATE 325 MG TAB PO SCH ×2 (09:44→22:38)
[2020-01-03] MEDS: METOPROLOL TARTRATE 25 MG TAB PO SCH ×2 (09:44→20:53)
[2020-01-03] MEDS: PRAVASTATIN SODIUM 80 MG TAB PO SCH (09:45)
[2020-01-03] MEDS: SODIUM BICARBONATE TAB 650 MG TAB PO SCH ×2 (09:45→20:52)
[2020-01-03] MEDS: ASCORBIC ACID 500 MG TAB PO SCH ×2 (09:45→18:38)
[2020-01-03] MEDS: CALCIUM CARBONATE 500 MG CHEWABLE PO SCH ×2 (09:46→22:38)
[2020-01-03] MEDS: ONDANSETRON 4 MG/2 ML VIAL IVP PRN (09:51)
--- NOTE | 2020-01-03 11:51 | P.PN ---
Subjective Progress Note Date: 01/03/20 Principal diagnosis: Acute hypoxic respiratory failure secondary to acute systolic congestive heart failure possible, strongly doubt pneumonia 79-year-old male patient who came into the emergency department complaining of worsening shortness of breath. He denied having any significant cough or sputum production. Denied having any sick contacts including exposure to COVID 19. He was however getting more short of breath and addition to that he was coughing out some thick sputum. Denied having any chest pain. No nausea. No vomiting. No abdominal pain. He has multiple medical problems and comorbidities in summary, the patient has history of chronic kidney disease stage 3-4, coronary artery disease with previous bypass surgery that was done in December 2018, diabetes mellitus with history of diabetic nephropathy, hypertension, hyperlipidemia, chronic atrial fibrillation and chronic congestion heart failure. His workup in emergency department revealed the following He had a chest x-ray that showed better pleural effusion in addition to a right lower lobe consolidation. EKG showed no acute ST segment elevation or depression. There was a right bundle branch block pattern with a sinus rhythm His blood work showed an acute on top of chronic kidney injury. His creatinine was up to 8.3 with a potassium level of 5.4 in the sodium level [id number]. Note that his baseline creatinine was as high as 2.4. He did have some mild troponin elevation with levels being at 0.08, 0.11 and 0.25 respectively His occult stool was also positive His blood gases showed metabolic acidosis with a pH of 7.11 and a pCO2 of 22 and pO2 of 118 The patient was seen in intensive care unit. Despite his metabolic acidosis, the patient was awake and alert and following commands and answering course appropriately. Clinically , he was quite dry including grasses mucous membranes without any significant edema in lower extremities bilaterally. He was given IV fluids and recommended giving another liter of bolus and maintaining him on a bicarb infusion with D5 and 150 mEq of sodium bicarbonate to be relatively 5 mL an hour. He was started on broad-spectrum antibiotics. He was given accommodation Rocephin and Zithromax. I held his diuretics for now. His echocardiogram from previous evaluations have shown an ejection fraction of 40- 45% and his last cardiac catheterization was done in November 2018 showing GONZALEZ to LAD, saphenous vein graft to diagonal branch and acute marginal branch and left PDA. He had essentially nonocclusive disease. He has mild aortic stenosis and moderate mitral regurgitation. On 12/28/2019, the patient is being seen for a follow-up in the intensive care unit. Note that the patient was being treated for right lower lobe pneumonia/bilateral pneumonia and the patient was given a broad-spectrum antibiotic coverage. He was also in acute on chronic kidney injury and the patient was resuscitated IV fluids. On today's evaluation, the patient is quite comfortable and he is still on room air oxygen. His chest x-ray from today shows a 15th 20% pneumothorax on the right. Note that this was a spontaneous pneumothorax and the patient did not have any fall, trauma, or any other surgical procedures done on the right side of the chest. The patient is on a D5 and 150 mg of bicarb infusion rate of 75 mL's an hour. Urine output is in order of 30 mL an hour. The patient remains in atrial fibrillation with a controlled rate. The white cell count is at 7.8 with hemoglobin 8.5. White cell count is improved. Hemoglobin dropped however this was essentially a adequate study for now nontender the previous value was hemoconcentrated. The patient's BUN is on 279. The patient's creatinine is down to 7.9. The patient's serum bicarbs up to 35. I added also normal saline at 75 an hour. The patient me what is still on a broad-spectrum antibiotic coverage utilizing a combination of Rocephin and Zithromax. He is afebrile. I decided not to put any chest tube on the right side as the patient is quite comfortable and there is no evidence of any tension. Nevertheless, I decided to obtain a follow-up chest x-ray at around noontime. This will be needed to monitor the right-sided pneumothorax. On 12/29/2019, patient is being seen for a follow-up. The patient has bilateral pneumonia, respiratory failure, right-sided pneumothorax which has remained stable. The patient has been on room air oxygen. He continues to be on IV fluid was D5 water and 150 mEq of sodium bicarbonate running at 75 mL an hour in addition to a normal saline running at 75 Christy hour. Renal function continues to improve. Creatinine continues to improve. The patient remains on a combination of Rocephin and Zithromax regarding the right lower lobe pneumonia. Cultures of been negative thus far. Nephrotic syndrome the case regarding the acute kidney injury. Today's white cell count is at 7.2. Hemoglobin stable at 9.2. BUN is still elevated at 168 with a creatinine of 7.3 although this is improved compared to yesterday. The neck fluid balance has been +2.9 L 40 yesterday and +3.2 L over the past shift. Nephrology is on the case. Based on the persistent abnormality in the right lower lung area, I proceeded with a CAT scan of the chest and the CAT scan showed a 20% pneumothorax on the right, moderate to large bilateral pleural effusion with perihilar and basilar infiltrates and a masslike infiltration in the left lower lobe. Discussed the findings with interventional radiology. May consider a pigtail catheter drain the fluid and the pneumothorax and regular chest tube. On 12/30/2019 the patient is being seen for a follow-up. I performed a thoracentesis on this patient yesterday. A total of 900 mL of pleural fluid was aspirated. The right-sided pneumothorax was also removed. There was obvious decrease in size of the right-sided pneumothorax and the fluid analysis came back as transudate consistent with CHF as the patient had low LDH and low protein in the pleural fluid. This morning the patient's pulse ox 98% on room air. The patient was on a bicarb infusion rate of 80 mL an hour. His serum bicarb is up to 26 and the patient will be taken of the sodium bicarb and be placed on normal saline. The neck fluid balance has been +3.2 L over the past 24 hours. Chest x-ray findings show a small right apical pneumothorax, there is bilateral basilar airspace disease and there is also an ongoing left-sided pleural effusion. The patient otherwise is improving in terms of his renal function. Creatinine slowly improving and the BUN is down to 160 in the creatinine is down to 6.8. Rest of the electrodes are all within normal limits. Calcium level was at 5.5 and the patient was given IV calcium replacement. Wh ite cell count is 9.1. Hemoglobin is at 8.7. The antibiotic coverage remains a combination of Rocephin and Zithromax. No other changes and antibiotic coverage was done for the time being. The pro calcitonin level was 0.51. On 12/31/2019, the patient is looking well and has no specific complaints. Renal function continues to be impaired. Nephrology was considering dialysis, however, based on the ongoing improvement in urine output, dialysis will not be down we'll continue to monitor the patient's renal function. I am still monitoring the patient's respiratory status. The patient remains on broad- spectrum antibiotics. We treated him for a lower lobe pneumonia bilateral, however, based on further evaluations, the patient seems to be having more so pleural effusions. I performed a right-sided thoracentesis evacuating the right-sided pneumothorax and the right-sided pleural effusion. The fluid was a transudate. There is still some residual right-sided pneumothorax on today's est x-ray. The patient is afebrile. The patient is producing adequate amount of urine output. He remains on the same antibiotic coverage. He is still in a positive fluid balance of 365 mL over the past 24 hours. His BN is at 148. Creatinine is at 6.8. No significant electrolyte disturbances. The white cell count is at 8 with a hemoglobin of 8.3. Reevaluated today on 01/01/20, patient remains in the ICU, he is on room air with O2 saturation in 94%. His IV fluid is at 100 mL/h, and I cut it down to KVO. Patient seems to be doing well since he had his right sided thoracentesis, the fluid turned out to be transudative in nature, and not extubated. Hence I have a feeling that this is all related to acute systolic congestive heart failure rather than pneumonia and parapneumonic effusion. Again the fluid was transudate of and speaks in favor of cardiac etiology of his failure rather than pulmonary etiology. Nonetheless, patient remains empirically on antibiotics coverage. Underlying pneumonia is not entirely ruled out, but at this point I feel it is less likely. Labs today showed WBC count of 8.9 hemoglobin is 7.9. Index was abnormal renal profile remains poor with BUN of 144 creatinine 6.49 minimal improvement compared to yesterday's labs. Clinically however the patien t is feeling better, breathing easier, and he is on room air at 94% SaO2. Reevaluated today on 01/02/20, patient ICU, he is presently on room air, he feels generally weak, tired, he is negative fluid balance over the last 24 hours by 125 ML. Renal functioning seems to be worsening. Patient remains in atrial flutter however rate is 70 beats per minutes. Continues to have fine crackles at the bases. And chest x-ray is suggestive of mild interstitial edema and small tiny pleural effusions. Discussed his condition with nephrology, and considering his renal status, patient is being considered for hemodialysis today. Patient is hemodynamically stable. But again he feels extremely weak and tired. Renal profile is worse with a BUN of 137 creatinine 6.28. CBC showed WBC count of 8.6 hemoglobin is 8. Reevaluated today on 01/03/20, patient remains in the ICU, doing relatively well, improved compared to yesterday, not feeling as weak. Underwent hemodialysis yesterday, his urine output is about 3 0 mL per hour. Oral intake is reasonable. Patient is feeling better to chest x-ray continues to show evidence of mild congestive heart failure changes. Patient is on room air, O2 saturatio ns 99%, he has no IV fluid, and I plan to transfer the patient out of the ICU to a cardiac bed on selective today. Objective - Vital Signs Vital signs: Vital Signs Temp 97.7 F 01/03/20 08:00 Pulse 90 01/03/20 08:00 Resp 22 01/03/20 08:00 BP 90/56 01/03/20 08:00 Pulse Ox 100 01/03/20 08:00 Intake & Output 01/02/20 01/03/20 01/03/20 18:59 06:59 18:59 Intake Total 240 110 Output Total 855 295 Balance -615 -185 Weight 87.7 kg Intake: IV 240 110 Sodium Chloride 0.9% 1, 240 110 000 ml @ 20 mls/hr IV . Q24H [facility] Rx#:[id number] Output: Urine 355 295 Hemodialysis 500 Other: Voiding Method Indwelling Catheter Indwelling Catheter - Exam Physical Exam: Revealed 79-year-old white male in no distress, on room air. Asymptomatic. Head: Atraumatic, normocephalic. HEENT:[Neck is supple.] [No neck masses.] [No thyromegaly.] [No JVD.] PERRLA, EOMI, no icterus. Dry mucous membranes. Chest: [Diminished breath sounds and crackles at the bases, no chest wall tenderness. Cardiac Exam: [Normal S1 and S2, no S3 gallop, no murmur.] Abdomen: [Soft, nontender, no megaly, no rebound, no guarding, normal bowel sounds.] Extremities: [No clubbing, no edema, no cyanosis.] Neurological Exam: [No focal neurologic deficit.] Alert oriented 3, Psychiatric: Normal mood affect and normal mental status examination. Skin: No rashes. Lymphatics: No lymphadenopathy. - Labs CBC & Chem 7: 01/03/20 03:49 01/03/20 03:49 Labs: Abnormal Lab Results - Last 24 Hours (Table) 01/02/20 01/02/20 01/03/20 Range/Units 16:40 20:37 03:49 RBC 2.87 L (4.30-5.90) m/uL Hgb 8.1 L (13.0-17.5) gm/dL Hct 24.0 L (39.0-53.0) % Plt Count 139 L (150-450) k/uL Lymphocytes # (Manual) 0.46 L (1.0-4.8) k/uL Sodium (137-145) mmol/L BUN (9-20) mg/dL Creatinine (0.66-1.25) mg/dL Glucose (74-99) mg/dL POC Glucose (mg/dL) 67 L 202 H (75-99) mg/dL Calcium (8.4-10.2) mg/dL 01/03/20 01/03/20 Range/Units 03:49 06:31 RBC (4.30-5.90) m/uL Hgb (13.0-17.5) gm/dL Hct (39.0-53.0) % Plt Count (150-450) k/uL Lymphocytes # (Manual) (1.0-4.8) k/uL Sodium 136 L (137-145) mmol/L BUN 111 H* (9-20) mg/dL Creatinine 5.22 H (0.66-1.25) mg/dL Glucose 70 L (74-99) mg/dL POC Glucose (mg/dL) 70 L (75-99) mg/dL Calcium 6.8 L (8.4-10.2) mg/dL Microbiology - Last 24 Hours (Table) 01/02/20 08:45 Gram Stain - Final Sputum Sputum Culture - Final 12/29/19 16:15 Gram Stain - Final Pleural Fluid Body Fluid Culture - Final 12/29/19 16:15 Anaerobic Culture - Final Pleural Fluid Assessment and Plan Assessment: Impression: Acute systolic congestive heart failure, ejection fraction is 45%, known to have moderate mitral regurgitation and aortic stenosis. Right sided pleural effusion, transudative in nature based on the labs. This is cardiac in nature. Cytology on the fluid was also negative. asis. Type 2 diabetes with nephropathy. Hypertension. Dyslipidemia. Coronary artery disease and previous CABG in December of 2018. Acute on chronic kidney disease stage IV. Troponin leak History of iron deficiency anemia and previous positive occult blood in the stools. Recommendation: Continue hemodialysis as per nephrology on the case. Place IV fluid at KVO Continue to hold diuretics. Continue to monitor renal function on a daily basis. Continue Eliquis. Continue empiric antibiotics, for the next couple of days and then discontinue. Empiric treatment again I strongly doubt pneumonia. Transfer patient to a monitor bed on selective today. We'll continue to follow. Time with Patient: Less than 30
[2020-01-03 12:15] LABS: Glucose,Whole Blood 197 mg/dL (75-99)
[2020-01-03] MEDS ORDERED: DOCUSATE 100 MG CAP PO PRN (12:15)
[2020-01-03] MEDS: AMMONIUM LACTATE 12% CREAM 140 GM TUBE TOPICAL SCH ×2 (12:17→22:38)
--- NOTE | 2020-01-03 17:03 | PN ---
PROGRESS NOTE DATE OF SERVICE: 01/03/2020 This is a 79-year-old gentleman who was admitted with multiple medical issues, had CHF acute exacerbation. Patient also had right pleural effusion, possible pneumonia. Patient had transudative reaction from the fluid aspirated by Dr. Dobbs. The patient monitored in ICU. Patient also had acute on chronic renal failure with acute tubular necrosis with difficulties and Dr. Patrick performed a temporary dialysis catheter insertion, and the patient is on the newly started hemodialysis on second day today. Multiple consultants are following the patient closely. Patient is complaining of extreme weakness and wasting. PAST MEDICAL HISTORY: Reviewed. REVIEW OF SYSTEMS: CARDIOVASCULAR: As mentioned earlier. RESPIRATORY: As mentioned earlier. GI: As mentioned earlier. : No dysuria. NERVOUS SYSTEM: No numbness or weakness. CURRENT MEDICATIONS: Reviewed and include: 1. [place] 5 mg q.6 p.r.n. 2. DuoNeb q.i.d. and p.r.n. 3. Eliquis 5 mg p.o. b.i.d. 4. Vitamin C 500 mg p.o. b.i.d. 5. Aspirin 81 mg p.o. daily. 6. Zithromax 500 mg q.h.s. .. 7. Rocephin 1 g daily. 8. Aranesp 60 mg subcu 7 days. 9. Colace 100 mg p.o. daily. 10.Vitamin D2 fifty thousand q.72 hours. 11.Proscar. 12.NovoLog. 13.Levemir. 14.Ammonia lactate. 15.Melatonin. 16.Lopressor. 17.Zofran. 18.Protonix. 19.Prevacid. 20.Flomax. PHYSICAL EXAMINATION: Patient is alert, oriented x2. Pulse 62, blood pressure 106/64, respiration 22, temperature 97.9, pulse ox 98% on room air. HEENT: Conjunctivae normal. Oral mucosa normal. CARDIOVASCULAR SYSTEM: S1, S2, muffled. RESPIRATORY: Breath sounds diminished at the bases, bilateral scattered rhonchi and no crackles, breath sounds are diminished on the right side. ABDOMEN: Soft, nontender. NERVOUS SYSTEM: diffusely weak. LABS: At this time show WBC 9.2, hemoglobin 8.1, creatinine is 5.22, calcium is 6.8. ASSESSMENT: 1. Congestive heart failure acute exacerbation with acute on chronic systolic dysfunction, ejection fraction 45% with moderate mitral regurgitation, aortic stenosis. 2. Acute renal failure, possible acute tubular necrosis with newly started hemodialysis. 3. Right-sided pleural effusion, status post thoracocentesis, possibly secondary to transudative reaction secondary to CHF and renal failure. 4. Possible right lower lobe pneumonia, underlying possibly gram-negative. 5. Chronic atrial fibrillation. 6. Elevated troponin of undetermined origin at the time of presentation with 0.259. 7. Diabetes mellitus type 2 with nephropathy. 8. Hypertension, essential. 9. Dyslipidemia. 10.History of coronary artery disease, coronary artery bypass grafting, history of chronic kidney disease stage IV on the baseline. 11.History of 100% anemia with possibly secondary to chronic disease. 12.History of History of DJD. 13.History of CAD, stent. 14.FULL CODE. RECOMMENDATION: In this 79-year-old gentleman who presented with multiple complex medical issues, will monitor the patient closely. Continue with the current management and symptomatic treatment. As this time, I recommend continue the hemodialysis, bronchodilators. Recommend continue empiric antibiotics. Closely follow fluid balance, closely follow with Dr. Dobbs. I would also recommend PT, OT evaluation, possible ECF rehab. Discussed with the patient, who understands and agrees. Further recommendations to follow. MMODL / IJN: [id number] /
[2020-01-03 17:04] LABS: Glucose,Whole Blood 122 mg/dL (75-99)
[2020-01-03] MEDS: SODIUM CHLORIDE 0.9% 1,000 ML IV SCH (17:38)
[2020-01-03] MEDS: AZITHROMYCIN 500 MG TAB PO SCH (20:52)
[2020-01-03] MEDS: MELATONIN 3 MG TABLET PO SCH (20:53)
[2020-01-03 21:01] LABS: Glucose,Whole Blood 231 mg/dL (75-99)
[2020-01-03] MEDS: INSULIN DETEMIR (LEVEMIR) 100 UNIT/ML SYR SQ SCH (22:40)
[2020-01-04] MEDS: INSULIN ASPART (NovoLOG) 100 UNIT/ML VIAL SQ SCH ×4 (06:04→20:55)
[2020-01-04] MEDS: ASCORBIC ACID 500 MG TAB PO SCH ×2 (06:04→16:12)
[2020-01-04 06:08] LABS: Glucose,Whole Blood 112 mg/dL (75-99)
--- NOTE | 2020-01-04 09:04 | P.PN ---
Subjective Patient is seen in follow-up for acute kidney injury on chronic kidney disease. Started on hemodialysis January 01 due to no significant improvement in his renal function. Urine output about 400-500 mL per day. Vital signs are stable. General: The patient appeared well nourished and normally developed. Lethargic. HEENT: Head exam is unremarkable. Neck is without jugular venous distension. LUNGS: Lungs are clear to auscultation and percussion. Breath sounds decreased. HEART: Rate and Rhythm are regular. ABDOMEN: Nontender, nondistended. EXTREMITITES: Lower extremities wrapped. 1+ edema. Objective - Vital Signs Vital signs: Vital Signs Temp 97.5 F L 01/03/20 16:00 Pulse 87 01/04/20 04:00 Resp 18 01/04/20 04:00 BP 118/58 01/03/20 16:00 Pulse Ox 95 01/03/20 16:52 Intake & Output 01/03/20 01/04/20 01/04/20 18:59 06:59 18:59 Intake Total 320 360 Output Total 3440 Balance -3120 360 Weight 84.8 kg Intake: Oral 320 360 Output: Urine 240 Hemodialysis 3200 Other: Voiding Method Indwelling Catheter Indwelling Catheter - Labs CBC & Chem 7: 01/03/20 03:49 01/03/20 03:49 Labs: Abnormal Lab Results - Last 24 Hours (Table) 01/03/20 01/03/20 01/03/20 Range/Units 12:13 17:03 20:59 POC Glucose (mg/dL) 197 H 122 H 231 H (75-99) mg/dL 01/04/20 Range/Units 06:01 POC Glucose (mg/dL) 112 H (75-99) mg/dL Assessment and Plan Plan: Assessment: 1. Acute kidney injury secondary to ATN secondary to volume depletion and sepsis. Started on hemodialysis January 01. Creatinine was over 9 on admission with no significant improvement in his renal function. Urine output about 400- 500 mL per day. 2. Chronic kidney disease stage IV secondary to diabetic kidney disease with baseline creatinine near 2. 3. Chronic systolic CHF with ejection fraction of 45-50% with moderate mitral regurgitation. 4. Hypocalcemia secondary to acute kidney injury. Improved post replacement. 5. Pneumonia maintained on antibiotics. 6. Anemia of chronic kidney disease maintained on Aranesp. 7. Insulin-dependent diabetes mellitus. 8. Hypertension with chronic kidney disease. Blood pressure on the lower side. 9. Metabolic acidosis secondary to acute kidney injury maintained on oral sodium bicarbonate. Plan: Hold off on hemodialysis today and plan for treatment tomorrow. Follow-up morning labs. Add oral Lasix 80 mg twice daily.
[2020-01-04] MEDS: CALCIUM CARBONATE 500 MG CHEWABLE PO SCH ×2 (09:33→20:55)
[2020-01-04] MEDS: TAMSULOSIN 0.4 MG CAP.ER.24H PO SCH ×2 (09:33→20:55)
[2020-01-04] MEDS: FERROUS SULFATE 325 MG TAB PO SCH ×2 (09:34→20:56)
[2020-01-04] MEDS: METOPROLOL TARTRATE 25 MG TAB PO SCH ×2 (09:34→20:55)
[2020-01-04] MEDS: SODIUM BICARBONATE TAB 650 MG TAB PO SCH ×2 (09:34→20:55)
[2020-01-04] MEDS: PANTOPRAZOLE 40 MG TABLET PO SCH (09:34)
[2020-01-04] MEDS: AMMONIUM LACTATE 12% CREAM 140 GM TUBE TOPICAL SCH ×2 (09:34→20:56)
[2020-01-04] MEDS: FINASTERIDE 5 MG TAB PO SCH (09:34)
[2020-01-04] MEDS: APIXABAN 5 MG TAB PO SCH ×2 (09:34→20:56)
[2020-01-04] MEDS: ASPIRIN 81 MG PO SCH (09:34)
[2020-01-04] MEDS: FUROSEMIDE 80 MG TAB PO SCH ×2 (09:34→16:12)
[2020-01-04] MEDS: PRAVASTATIN SODIUM 80 MG TAB PO SCH (09:35)
[2020-01-04 09:51] LABS: Calcium 6.6 mg/dL (8.4-10.2); Magnesium 1.9 mg/dL (1.6-2.3); Potassium 4.7 mmol/L (3.5-5.1)
[2020-01-04] MEDS: hydrALAZINE HCL 25 MG TAB PO SCH (10:08)
[2020-01-04 11:52] LABS: Glucose,Whole Blood 158 mg/dL (75-99)
[2020-01-04 12:28] LABS: Amorphous Sediment,Urine Rare /hpf; Appearance,Urine Cloudy (Clear); Bacteria,Urine Occasional /hpf; Bilirubin,Urine Negative (Negative); Blood,Urine Small (Negative); Color,Urine Yellow; Glucose,Urine (UA) Trace (Negative); Ketones,Urine Negative (Negative); Leukocyte Esterase,Urine Small (Negative); Mucus,Urine Rare /hpf; Nitrite,Urine Negative (Negative); PH, Urine 5.5 (5.0-8.0); Protein,Urine 2+ (Negative); RBC,Urine 47 /hpf (0-5); Specific Gravity,Urine 1.014 (1.001-1.035); Squamous Epithelial Cell,Urine <1 /hpf (0-4); Urobilinogen,Urine <2.0 mg/dL (<2.0); WBC,Urine 8 /hpf (0-5)
--- NOTE | 2020-01-04 13:36 | P.PN ---
Subjective Progress Note Date: 01/04/20 Principal diagnosis: Acute exacerbation of CHF 79-year-old male patient who came into the emergency department complaining of worsening shortness of breath. He denied having any significant cough or sputum production. Denied having any sick contacts including exposure to COVID 19. He was however getting more short of breath and addition to that he was coughing out some thick sputum. Denied having any chest pain. No nausea. No vomiting. No abdominal pain. He has multiple medical problems and comorbidities in summary, the patient has history of chronic kidney disease stage 3-4, coronary artery disease with previous bypass surgery that was done in December 2018, diabet es mellitus with history of diabetic nephropathy, hypertension, hyperlipidemia, chronic atrial fibrillation and chronic congestion heart failure. His workup in emergency department revealed the following He had a chest x-ray that showed better pleural effusion in addition to a right lower lobe consolidation. EKG showed no acute ST segment elevation or depression. There was a right bundle branch block pattern with a sinus rhythm His blood work showed an acute on top of chronic kidney injury. His creatinine was up to 8.3 with a potassium level of 5.4 in the sodium level [id number]. Note that his baseline creatinine was as high as 2.4. He did have some mild troponin elevation with levels being at 0.08, 0.11 and 0.25 respectively His occult stool was also positive His blood gases showed metabolic acidosis with a pH of 7.11 and a pCO2 of 22 and pO2 of 118 The patient was seen in intensive care unit. Despite his metabolic acidosis, the patient was awake and alert and following commands and answering course appropriately. Clinically , he was quite dry including grasses mucous membranes without any significant edema in lower extremities bilaterally. He was given IV fluids and recommended giving another liter of bolus and maintaining him on a bicarb infusion with D5 and 150 mEq of sodium bicarbonate to be relatively 5 mL an hour. He was started on broad-spectrum antibiotics. He was given accommodation Rocephin and Zithromax. I held his diuretics for now. His echocardiogram from previous evaluations have shown an ejection fraction of 40- 45% and his last cardiac catheterization was done in November 2018 showing GONZALEZ to LAD, saphenous vein graft to diagonal branch and acute marginal branch and left PDA. He had essentially nonocclusive disease. He has mild aortic stenosis and moderate mitral regurgitation. On 12/28/2019, the patient is being seen for a follow-up in the intensive care unit. Note that the patient was being treated for right lower lobe pneumonia/bilateral pneumonia and the patient was given a broad-spectrum antibiotic coverage. He was also in acute on chronic kidney injury and the patient was resuscitated IV fluids. On today's evaluation, the patient is quite comfortable and he is still on room air oxygen. His chest x-ray from today shows a 15th 20% pneumothorax on the right. Note that this was a spontaneous pneumothorax and the patient did not have any fall, trauma, or any other surgical procedures done on the right side of the chest. The patient is on a D5 and 150 mg of bicarb infusion rate of 75 mL's an hour. Urine output is in order of 30 mL an hour. The patient remains in atrial fibrillation with a controlled rate. The white cell count is at 7.8 with hemoglobin 8.5. White cell count is improved. Hemoglobin dropped however this was essentially a adequate study for now nontender the previous value was hemoconcentrated. The patient's BUN is on 279. The patient's creatinine is down to 7.9. The patient's serum bicarbs up to 35. I added also normal saline at 75 an hour. The patient me what is still on a broad-spectrum antibiotic coverage utilizing a combination of Rocephin and Zithromax. He is afebrile. I decided not to put any chest tube on the right side as the patient is quite comfortable and there is no evidence of any tension. Nevertheless, I decided to obtain a follow-up chest x-ray at around noontime. This will be needed to monitor the right-sided pneumothorax. On 12/29/2019, patient is being seen for a follow-up. The patient has bilateral pneumonia, respiratory failure, right-sided pneumothorax which has remained stable. The patient has been on room air oxygen. He continues to be on IV f luid was D5 water and 150 mEq of sodium bicarbonate running at 75 mL an hour in addition to a normal saline running at 75 Christy hour. Renal function continues to improve. Creatinine continues to improve. The patient remains on a combination of Rocephin and Zithromax regarding the right lower lobe pneumonia. Cultures of been negative thus far. Nephrotic syndrome the case regarding the acute kidney injury. Today's white cell count is at 7.2. Hemoglobin stable at 9.2. BUN is still elevated at 168 with a creatinine of 7.3 although this is improved compared to yesterday. The neck fluid balance has been +2.9 L 40 yesterday and +3.2 L over the past shift. Nephrology is on the case. Based on the persistent abnormality in the right lower lung area, I proceeded with a CAT scan of the chest and the CAT scan showed a 20% pneumothorax on the right, moderate to large bilateral pleural effusion with perihilar and basilar infiltrates and a masslike infiltration in the left lower lobe. Discussed the findings with interventional radiology. May consider a pigtail catheter drain the fluid and the pneumothorax and regular chest tube. On 12/30/2019 the patient is being seen for a follow-up. I performed a thoracentesis on this patient yesterday. A total of 900 mL of pleural fluid was aspirated. The right-sided pneumothorax was also removed. There was obvious decrease in size of the right-sided pneumothorax and the fluid analysis came back as transudate consistent with CHF as the patient had low LDH and low protein in the pleural fluid. This morning the patient's pulse ox 98% on room air. The patient was on a bicarb infusion rate of 80 mL an hour. His serum bicarb is up to 26 and the patient will be taken of the sodium bicarb and be placed on normal saline. The neck fluid balance has been +3.2 L over the past 24 hours. Chest x-ray findings show a small right apical pneumothorax, there is bilateral basilar airspace disease and there is also an ongoing left-sided pleur al effusion. The patient otherwise is improving in terms of his renal function. Creatinine slowly improving and the BUN is down to 160 in the creatinine is down to 6.8. Rest of the electrodes are all within normal limits. Calcium level was at 5.5 and the patient was given IV calcium replacement. White cell count is 9.1. Hemoglobin is at 8.7. The antibiotic coverage remains a combination of Rocephin and Zithromax. No other changes and antibiotic coverage was done for the time being. The pro calcitonin level was 0.51. On 12/31/2019, the patient is looking well and has no specific complaints. Renal function continues to be impaired. Nephrology was considering dialysis, however, based on the ongoing improvement in urine output, dialysis will not be down we'll continue to monitor the patient's renal function. I am still monitoring the patient's respiratory status. The patient remains on broad- spectrum antibiotics. We treated him for a lower lobe pneumonia bilateral, however, based on further evaluations, the patient seems to be having more so pleural effusions. I performed a right-sided thoracentesis evacuating the right-sided pneumothorax and the right-sided pleural effusion. The fluid was a transudate. There is still some residual right-sided pneumothorax on today's chest x-ray. The patient is afebrile. The patient is producing adequate amount of urine output. He remains on the same antibiotic coverage. He is still in a positive fluid balance of 365 mL over the past 24 hours. His BN is at 148. Creatinine is at 6.8. No significant electrolyte disturbances. The white cell count is at 8 with a hemoglobin of 8.3. Reevaluated today on 01/01/20, patient remains in the ICU, he is on room air with O2 saturation in 94%. His IV fluid is at 100 mL/h, and I cut it down to KVO. Patient seems to be doing well since he had his right sided thoracentesis, the fluid turned out to be transudative in nature, and not extubated. Hence I have a feeling that this is all related to acute systolic congestive heart failure rather than pneumonia and parapneumonic effusion. Again the fluid was transudate of and speaks in favor of cardiac etiology of his failure rather than pulmonary etiology. Nonetheless, patient remains empirically on antibiotics coverage. Underlying pneumonia is not entirely ruled out, but at this point I feel it is less likely. Labs today showed WBC count of 8.9 hemoglobin is 7.9. Index was abnormal renal profile remains poor with BUN of 144 creatinine 6.49 minimal improvement compared to yesterday's labs. Clinically however the mallory morris is feeling better, breathing easier, and he is on room air at 94% SaO2. Reevaluated today on 01/02/20, patient ICU, he is presently on room air, he feels generally weak, tired, he is negative fluid balance over the last 24 hours by 125 ML. Renal functioning seems to be worsening. Patient remains in atrial flutter however rate is 70 beats per minutes. Continues to have fine crackles at the bases. And chest x-ray is suggestive of mild interstitial edema and small tiny pleural effusions. Discussed his condition with nephrology, and considering his renal status, patient is being considered for hemodialysis today. Patient is hemodynamically stable. But again he feels extremely weak a nd tired. Renal profile is worse with a BUN of 137 creatinine 6.28. CBC showed WBC count of 8.6 hemoglobin is 8. Reevaluated today on 01/03/20, patient remains in the ICU, doing relatively well, improved compared to yesterday, not feeling as weak. Underwent hemodialysis yesterday, his urine output is about 3 0 mL per hour. Oral intake is reasonable. Patient is feeling better to chest x-ray continues to show evidence of mild congestive heart failure changes. Patient is on room air, O2 satur ations 99%, he has no IV fluid, and I plan to transfer the patient out of the ICU to a cardiac bed on selective today. On 01/04/2020 patient seen in follow-up on selective care unit, his breathing co ntinues to improve, he remains on room air, with pulse ox of 100%, hemodynamically stable, his been afebrile. He was started on hemodialysis this admission, and yesterday he had a treatment would removal of 3.2 L of fluid. Today's labs have been reviewed, electrolytes are unremarkable, renal profile has improved, B1 is down to 82, creatinine is 4.45. Lung sounds are positive for diminished breath sounds at the bases. Patient has a little bit more awake and alert us stronger today. No nausea vomiting or diarrhea. He remains on oral Lasix as well, empiric antibiotics in the form of azithromycin, his blood cultures pleural fluid cultures and sputum have all been negative, pleural fluid analysis transudate of fluid consistent with CHF exacerbation Objective - Vital Signs Vital signs: Vital Signs Temp 97.6 F 01/04/20 11:58 Pulse 66 01/04/20 11:58 Resp 16 01/04/20 11:58 BP 95/61 01/04/20 11:58 Pulse Ox 100 01/04/20 08:00 Intake & Output 01/03/20 01/04/20 01/04/20 18:59 06:59 18:59 Intake Total 320 360 Output Total 3440 Balance -3120 360 Weight 84.8 kg Intake: Oral 320 360 Output: Urine 240 Hemodialysis 3200 Other: Voiding Method Indwelling Catheter Indwelling Catheter - Exam GENERAL EXAM: Alert, very pleasant, 79-year-old white male, appears to be chronically ill, but no acute distress, currently on room air, with pulse ox 100% comfortable in no apparent distress. HEAD: Normocephalic/atraumatic. EYES: Normal reaction of pupils, equal size. Conjunctiva pink, sclera white. NOSE: Clear with pink turbinates. THROAT: No erythema or exudates. NECK: No masses, no JVD, no thyroid enlargement, no adenopathy. CHEST: No chest wall deformity. Symmetrical expansion. LUNGS: Equal air entry with no crackles, wheeze, rhonchi or dullness. CVS: Regular rate and rhythm, normal S1 and S2, no gallops, no murmurs, no rubs ABDOMEN: Soft, nontender. No hepatosplenomegaly, normal bowel sounds, no guard ing or rigidity. EXTREMITIES: No clubbing, no edema, no cyanosis, 2+ pulses and upper and lower extremities. MUSCULOSKELETAL: Muscle strength and tone normal. SPINE: No scoliosis or deformity SKIN: No rashes CENTRAL NERVOUS SYSTEM: Alert and oriented -3. No focal deficits, tone is normal in all 4 extremities. PSYCHIATRIC: Alert and oriented -3. Appropriate affect. Intact judgment and insight. - Labs CBC & Chem 7: 01/03/20 03:49 01/04/20 08:14 Labs: Abnormal Lab Results - Last 24 Hours (Table) 01/03/20 01/03/20 01/04/20 Range/Units 17:03 20:59 06:01 Sodium (137-145) mmol/L BUN (9-20) mg/dL Creatinine (0.66-1.25) mg/dL Glucose (74-99) mg/dL POC Glucose (mg/dL) 122 H 231 H 112 H (75-99) mg/dL Calcium (8.4-10.2) mg/dL Urine Protein (Negative) Urine Glucose (UA) (Negative) Urine Blood (Negative) Ur Leukocyte Esterase (Negative) Urine RBC (0-5) /hpf Urine WBC (0-5) /hpf Urine WBC Clumps (None) /hpf Amorphous Sediment (None) /hpf Urine Bacteria (None) /hpf Urine Mucus (None) /hpf 01/04/20 01/04/20 01/04/20 Range/Units 08:14 11:51 12:04 Sodium 136 L (137-145) mmol/L BUN 82 H (9-20) mg/dL Creatinine 4.45 H (0.66-1.25) mg/dL Glucose 113 H (74-99) mg/dL POC Glucose (mg/dL) 158 H (75-99) mg/dL Calcium 6.6 L (8.4-10.2) mg/dL Urine Protein 2+ H (Negative) Urine Glucose (UA) Trace H (Negative) Urine Blood Small H (Negative) Ur Leukocyte Esterase Small H (Negative) Urine RBC 47 H (0-5) /hpf Urine WBC 8 H (0-5) /hpf Urine WBC Clumps Few H (None) /hpf Amorphous Sediment Rare H (None) /hpf Urine Bacteria Occasional H (None) /hpf Urine Mucus Rare H (None) /hpf Assessment and Plan Plan: Assessment: Acute systolic congestive heart failure, ejection fraction is 45%, known to have moderate mitral regurgitation and aortic stenosis. Right sided pleural effusion, transudative in nature based on the labs. This is cardiac in nature. Cytology on the fluid was also negative. asis. Type 2 diabetes with nephropathy. Hypertension. Dyslipidemia. Coronary artery disease and previous CABG in December of 2018. Acute on chronic kidney disease stage IV. Troponin leak History of iron deficiency anemia and previous positive occult blood in the stools. Plan: Patient continues on hemodialysis, breathing easier, renal profile improving, denies maintaining stable O2 saturations on room air. Direct per nephrology recommendations. Continue oral anticoagulation for history of atrial fibrillation. vital signs remain stable, no fever or chills, all cultures have been negative, will discontinue azithromycin. Pleural fluid cytology has been negative for malignancy. Follow-up chest x-ray in the morning Continue to follow I performed a history & physical examination of the patient and discussed their management with my nurse practitioner, Demetria Ramos. I reviewed the nurse practitioner's note and agree with the documented findings and plan of care. Lung sounds are positive for diminished breath sound at the bases. The findings and the impression was discussed with the patient. I attest to the documentation by the nurse practitioner. Time with Patient: Less than 30
[2020-01-04] MEDS: DARBEPOETIN ALFA 60 MCG/0.3 ML SYRINGE SQ SCH (16:12)
--- NOTE | 2020-01-04 16:12 | PN ---
PROGRESS NOTE DATE OF SERVICE: 01/04/2020 This is a 79-year-old gentleman who was admitted with multiple medical problems including shortness of breath and CHF acute exacerbation, also renal failure. Patient is newly started on hemodialysis, which the patient is rather tolerating. Patient is still short of breath. Patient had generalized tiredness, weakness, and PT, OT is also evaluating the patient closely. Also patient had thoracocentesis of the right side. It is a suspicion pneumothorax initially, but however the most recent chest x-ray which was done yesterday showed some fluid on the right side at this time with some cardiomegaly. PAST MEDICAL HISTORY: Reviewed. REVIEW OF SYSTEMS: CARDIOVASCULAR SYSTEM: No angina. RESPIRATION: As mentioned earlier. GI: As mentioned earlier. : No dysuria. NERVOUS SYSTEM: No numbness or weakness. ALLERGY, IMMUNOLOGY: As mentioned earlier. CURRENT MEDICATIONS: Reviewed and include: 1. Cheshire 5 mg q.6 p.r.n. 2. DuoNeb q.i.d. and p.r.n. 3. Eliquis 5 mg p.o. b.i.d. 4. Vitamin C 500 mg p.o. b.i.d. 5. Aspirin 81 mg. 6. Tums p.r.n. 7. Ancef 60 mg subcu q. 7 days. 8. Colace 100 mg p.o. daily. 9. Vitamin D2 fifty thousand units q.72h. 10.Iron sulfate 320 mg p.o. daily. 11.Proscar 5 mg p.o. daily. 12.Lasix 40 mg b.i.d. 13.Levemir 10 units subcu q.h.s. 14.Lactic acid melatonin. 15.Lopressor. 16.Zofran. 17.Protonix. 18.Pravachol. 19.Flomax. PHYSICAL EXAMINATION: Patient is alert, oriented x2. Pulse 68, blood pressure 150/52, respiration 16, temperature 97.4, pulse ox 100% on room air. HEENT: Conjunctivae normal. Oral mucosa moist. NECK: No jugular venous distention. No lymph node enlargement. CARDIOVASCULAR SYSTEMS: S1, S2, muffled. RESPIRATION: Breath sounds diminished at the the bases, a few scattered rhonchi. Breath sounds are diminished on the right side. ABDOMEN: Soft, nontender. LEGS: No edema. No swelling. CENTRAL NERVOUS SYSTEM: Diffusely weak. LABS: Creatinine 4.45 and UA noted, occasional bacteria, awaiting cultures. ASSESSMENT: 1. Congestive heart failure acute exacerbation with acute on chronic systolic dysfunction, ejection fraction 45% with moderate mitral regurgitation, aortic stenosis. 2. Acute renal failure with possible acute tubular necrosis with newly started hemodialysis. 3. Right-sided pleural effusion status post thoracocentesis, possibly secondary to transudative reaction secondary to CHF and renal failure. 4. Possible right lower pneumonia, underlying with possibly gram-negative. 5. Chronic atrial fibrillation. 6. Elevated troponin in the indeterminate etiology at the time of presentation with 0.259. 7. Diabetes mellitus type 2 with nephropathy. 8. Hypertension, essential. 9. Hyperlipidemia. 10.Gait dysfunction. 11.History of coronary artery disease, coronary artery bypass grafting history. 12.History of chronic kidney stage IV. 13.History of normocytic anemia possibly secondary to chronic disease. 14.History of degenerative joint disease. 15.History of CAD stent. 16.FULL CODE. RECOMMENDATION AND DISCUSSION: In this 79-year-old gentleman who presented with multiple complex medical issues, will monitor the patient closely. Continue with the current management and symptomatic treatment. Otherwise, at this time I recommend to continue with the hemodialysis per Nephrology. PT, OT evaluation, possible ECF rehab. I would also recommend urine culture, UA with micro to rule out he possibility of UTI. Continue the rest of medications. Prognosis guarded. Further recommendations to follow. Discussed with the patient who understands and agrees. KRISTAL / DONALD: [id number] /
[2020-01-04] MEDS: SODIUM CHLORIDE 0.9% 1,000 ML IV SCH (16:53)
[2020-01-04] MEDS: INSULIN DETEMIR (LEVEMIR) 100 UNIT/ML SYR SQ SCH (20:55)
[2020-01-04] MEDS: MELATONIN 3 MG TABLET PO SCH (20:56)
[2020-01-05] MEDS: INSULIN ASPART (NovoLOG) 100 UNIT/ML VIAL SQ SCH ×4 (06:33→21:32)
[2020-01-05] MEDS: ASCORBIC ACID 500 MG TAB PO SCH ×2 (06:36→17:04)
[2020-01-05 07:39] LABS: Calcium 6.5 mg/dL (8.4-10.2); Phosphorus 6.7 mg/dL (2.5-4.5); Potassium 5.1 mmol/L (3.5-5.1)
[2020-01-05 07:50] LABS: Glucose,Whole Blood 87 mg/dL (75-99)
[2020-01-05 08:03] LABS: Glucose,Whole Blood 274 mg/dL (75-99)
[2020-01-05 08:03] LABS: Glucose,Whole Blood 198 mg/dL (75-99)
[2020-01-05] MEDS: FERROUS SULFATE 325 MG TAB PO SCH ×2 (09:51→21:32)
[2020-01-05] MEDS: METOPROLOL TARTRATE 25 MG TAB PO SCH ×2 (09:51→21:32)
[2020-01-05] MEDS: FUROSEMIDE 80 MG TAB PO SCH ×2 (09:51→17:03)
[2020-01-05] MEDS: CALCIUM CARBONATE 500 MG CHEWABLE PO SCH ×2 (09:51→21:32)
[2020-01-05] MEDS: ASPIRIN 81 MG PO SCH (09:51)
[2020-01-05] MEDS: PANTOPRAZOLE 40 MG TABLET PO SCH (09:51)
[2020-01-05] MEDS: SODIUM BICARBONATE TAB 650 MG TAB PO SCH ×2 (09:51→21:32)
[2020-01-05] MEDS: TAMSULOSIN 0.4 MG CAP.ER.24H PO SCH ×2 (09:51→21:31)
[2020-01-05] MEDS: APIXABAN 5 MG TAB PO SCH ×2 (09:51→21:31)
[2020-01-05] MEDS: FINASTERIDE 5 MG TAB PO SCH (09:51)
[2020-01-05] MEDS: AMMONIUM LACTATE 12% CREAM 140 GM TUBE TOPICAL SCH ×2 (09:52→21:34)
[2020-01-05] MEDS: PRAVASTATIN SODIUM 80 MG TAB PO SCH (09:52)
[2020-01-05] MEDS: ERGOCALCIFEROL 50,000 UNIT CAP PO SCH (09:52)
--- NOTE | 2020-01-05 10:47 | XR ---
EXAMINATION TYPE: XR chest 1V portable DATE OF EXAM: 01/05/2020 COMPARISON: 01/03/2020 HISTORY: Shortness of breath and congestive heart failure TECHNIQUE: Single frontal view of the chest is obtained. FINDINGS: Cardiomediastinal silhouette is enlarged with post CABG change. There is a persistent at l east small right pleural effusion tracking tracking of the right hemithorax. Bibasilar airspace disea se is redemonstrated although improved on the left with improved visualization of the left hemidiaphr agm. There is diffuse osseous demineralization. There is mild pulmonary vascular congestion. IMPRESSION: Improved left basilar airspace disease and pleural effusion. Persistent at least small r ight loculated pleural effusion and right basilar airspace disease. Mild pulmonary vascular congestio n remains.
[2020-01-05 11:46] LABS: Glucose,Whole Blood 205 mg/dL (75-99)
--- NOTE | 2020-01-05 12:28 | P.PN ---
Subjective Patient is seen in follow-up for acute kidney injury on chronic kidney disease. Started on hemodialysis January 01 due to no significant improvement in his renal function. He has a Torres catheter. However x-ray dyes and O's are not documented. Overall feels well. No active complaints. Vital signs are stable. General: The patient appeared well nourished and normally developed. Lethargic. HEENT: Head exam is unremarkable. Neck is without jugular venous distension. LUNGS: Lungs are clear to auscultation and percussion. Breath sounds decreased. HEART: Rate and Rhythm are regular. ABDOMEN: Nontender, nondistended. EXTREMITITES: Lower extremities wrapped. 1+ edema. Objective - Vital Signs Vital signs: Vital Signs Temp 97.7 F 01/05/20 08:00 Pulse 66 01/05/20 08:00 Resp 22 01/05/20 08:00 BP 106/55 01/05/20 08:00 Pulse Ox 97 01/05/20 03:30 Intake & Output 01/04/20 01/05/20 01/05/20 18:59 06:59 18:59 Intake Total 1200 Output Total 70 375 Balance 1130 -375 Weight 84.8 kg 67.5 kg Intake: Oral 1200 Output: Urine 70 375 Other: Voiding Method Indwelling Catheter Indwelling Catheter Indwelling Catheter # Voids 1 # Bowel Movements 2 - Labs CBC & Chem 7: 01/03/20 03:49 01/05/20 06:05 Labs: Abnormal Lab Results - Last 24 Hours (Table) 01/04/20 01/04/20 01/04/20 Range/Units 12:04 16:47 20:24 Sodium (137-145) mmol/L BUN (9-20) mg/dL Creatinine (0.66-1.25) mg/dL Glucose (74-99) mg/dL POC Glucose (mg/dL) 198 H 274 H (75-99) mg/dL Calcium (8.4-10.2) mg/dL Phosphorus (2.5-4.5) mg/dL Urine Protein 2+ H (Negative) Urine Glucose (UA) Trace H (Negative) Urine Blood Small H (Negative) Ur Leukocyte Esterase Small H (Negative) Urine RBC 47 H (0-5) /hpf Urine WBC 8 H (0-5) /hpf Urine WBC Clumps Few H (None) /hpf Amorphous Sediment Rare H (None) /hpf Urine Bacteria Occasional H (None) /hpf Urine Mucus Rare H (None) /hpf 01/05/20 01/05/20 Range/Units 06:05 11:45 Sodium 135 L (137-145) mmol/L BUN 87 H (9-20) mg/dL Creatinine 4.74 H (0.66-1.25) mg/dL Glucose 54 L (74-99) mg/dL POC Glucose (mg/dL) 205 H (75-99) mg/dL Calcium 6.5 L (8.4-10.2) mg/dL Phosphorus 6.7 H (2.5-4.5) mg/dL Urine Protein (Negative) Urine Glucose (UA) (Negative) Urine Blood (Negative) Ur Leukocyte Esterase (Negative) Urine RBC (0-5) /hpf Urine WBC (0-5) /hpf Urine WBC Clumps (None) /hpf Amorphous Sediment (None) /hpf Urine Bacteria (None) /hpf Urine Mucus (None) /hpf Microbiology - Last 24 Hours (Table) 01/04/20 12:04 Urine Culture - Final Urine,Catheterized Assessment and Plan Plan: Assessment: 1. Acute kidney injury secondary to ATN secondary to volume depletion and sepsis. Started on hemodialysis January 01. Creatinine was over 9 on admission with no significant improvement in his renal function. 2. Chronic kidney disease stage IV secondary to diabetic kidney disease with baseline creatinine near 2. 3. Chronic systolic CHF with ejection fraction of 45-50% with moderate mitral regurgitation. 4. Hypocalcemia secondary to acute kidney injury. Improved post replacement. 5. Pneumonia maintained on antibiotics. 6. Anemia of chronic kidney disease maintained on Aranesp. 7. Insulin-dependent diabetes mellitus. 8. Hypertension with chronic kidney disease. Blood pressure on the lower side. 9. Metabolic acidosis secondary to acute kidney injury maintained on oral sodium bicarbonate. 10. Hyperphosphatemia secondary to acute kidney injury. Plan: Hemodialysis today. He will be maintained on Wednesday schedule. Maintain oral Lasix. Add PhosLo with meals. assembly manager to help facilitate outpatient dialysis set up.
--- NOTE | 2020-01-05 12:35 | CDI ---
Documentation Clarification Form Date: 01/05/2020 12:21:06 PM From: Jenna Nagel CCS, CCDS Admit Date: 12/26/2019 09:38:00 PM Patient Name: Neto Brice Visit Number: [id number] Discharge Date: ATTENTION: The Clinical Documentation Specialists (CDI) and [facility] Coding Staff appreciate your assistance in clarifying documentation. Please respond to the clarification below the line at the bottom and electronically sign. The CDI & [facility] Coding staff will review the response and follow-up if needed. Please note: Queries are made part of the Legal Health Record. If you have any questions, please contact the author of this message via ITS. Dr. Elvira Stoddard: Per the 12/26 History & Physical & subsequent Progress Notes through 12/30: "Today patient got 1 L of normal saline for possible sepsis although there was some suspicion of fluid in the chest x-ray by tunnel heading inspector." Per the 12/31 through 01/03 Nephrology Progress Notes: "Acute kidney injury secondary to ATN secondary to volume depletion and sepsis." History/Risk Factors: Systolic CHF, Chronic Atrial Fibrillation on Eliquis, Hypertension, Hyperlipidemia, CKD III, Iron Deficiency Anemia, CAD status post CABG, IDDM II. Clinical Indicators: Presented to the ED on 12/25 with dyspnea for a week & feeling cold, cough with clear phlegm. Diagnosed with Gram Negative Pneumonia & Possible Sepsis. VS 12/25: T 97.2*, P 75, R 22 (sob), BP 122/68, PO 97 RA LAB 12/25: WBC 23.2^, Neut 21.9^, K 6.7^^, BUN 197^^, Cr 9.26^^, Lactic Acid (1.2) ABG 12/25: pH 7.13, pCO2 22*, pO2 118^, HCO3 7, Total CO2 8*, O2 Sat 97.1^ Blood culture 12/25: Negative (final). Treatment: Albuterol updrafts, IV fluid bolus 500 mls@999/hr, IV fluid 1,000 mls @75/hr, IV Azithromycin, IV Rocephin, IV Dextrose/Water, IV Insulin, IV NaBicarb, IV Heparin drip, IV Calcium Gluconate. O2 2Lnc. In your professional opinion, please clarify if these findings signify one of the following conditions, whether the condition is POA, and cause, if known: Sepsis ruled out Sepsis o With Severe Sepsis o With Septic Shock Other, please specify Unable to determine Present on Admission: Yes or No (Last Revision: December 2017) Unable to determine MTDD
--- NOTE | 2020-01-05 12:35 | P.PN ---
Subjective Progress Note Date: 01/05/20 Principal diagnosis: Acute exacerbation of CHF 79-year-old male patient who came into the emergency department complaining of worsening shortness of breath. He denied having any significant cough or sputum production. Denied having any sick contacts including exposure to COVID 19. He was however getting more short of breath and addition to that he was coughing out some thick sputum. Denied having any chest pain. No nausea. No vomiting. No abdominal pain. He has multiple medical problems and comorbidities in summary, the patient has history of chronic kidney disease stage 3-4, coronary artery disease with previous bypass surgery that was done in December 2018, diabet es mellitus with history of diabetic nephropathy, hypertension, hyperlipidemia, chronic atrial fibrillation and chronic congestion heart failure. His workup in emergency department revealed the following He had a chest x-ray that showed better pleural effusion in addition to a right lower lobe consolidation. EKG showed no acute ST segment elevation or depression. There was a right bundle branch block pattern with a sinus rhythm His blood work showed an acute on top of chronic kidney injury. His creatinine was up to 8.3 with a potassium level of 5.4 in the sodium level [id number]. Note that his baseline creatinine was as high as 2.4. He did have some mild troponin elevation with levels being at 0.08, 0.11 and 0.25 respectively His occult stool was also positive His blood gases showed metabolic acidosis with a pH of 7.11 and a pCO2 of 22 and pO2 of 118 The patient was seen in intensive care unit. Despite his metabolic acidosis, the patient was awake and alert and following commands and answering course appropriately. Clinically , he was quite dry including grasses mucous membranes without any significant edema in lower extremities bilaterally. He was given IV fluids and recommended giving another liter of bolus and maintaining him on a bicarb infusion with D5 and 150 mEq of sodium bicarbonate to be relatively 5 mL an hour. He was started on broad-spectrum antibiotics. He was given accommodation Rocephin and Zithromax. I held his diuretics for now. His echocardiogram from previous evaluations have shown an ejection fraction of 40- 45% and his last cardiac catheterization was done in November 2018 showing GONZALEZ to LAD, saphenous vein graft to diagonal branch and acute marginal branch and left PDA. He had essentially nonocclusive disease. He has mild aortic stenosis and moderate mitral regurgitation. On 12/28/2019, the patient is being seen for a follow-up in the intensive care unit. Note that the patient was being treated for right lower lobe pneumonia/bilateral pneumonia and the patient was given a broad-spectrum antibiotic coverage. He was also in acute on chronic kidney injury and the patient was resuscitated IV fluids. On today's evaluation, the patient is quite comfortable and he is still on room air oxygen. His chest x-ray from today shows a 15th 20% pneumothorax on the right. Note that this was a spontaneous pneumothorax and the patient did not have any fall, trauma, or any other surgical procedures done on the right side of the chest. The patient is on a D5 and 150 mg of bicarb infusion rate of 75 mL's an hour. Urine output is in order of 30 mL an hour. The patient remains in atrial fibrillation with a controlled rate. The white cell count is at 7.8 with hemoglobin 8.5. White cell count is improved. Hemoglobin dropped however this was essentially a adequate study for now nontender the previous value was hemoconcentrated. The patient's BUN is on 279. The patient's creatinine is down to 7.9. The patient's serum bicarbs up to 35. I added also normal saline at 75 an hour. The patient me what is still on a broad-spectrum antibiotic coverage utilizing a combination of Rocephin and Zithromax. He is afebrile. I decided not to put any chest tube on the right side as the patient is quite comfortable and there is no evidence of any tension. Nevertheless, I decided to obtain a follow-up chest x-ray at around noontime. This will be needed to monitor the right-sided pneumothorax. On 12/29/2019, patient is being seen for a follow-up. The patient has bilateral pneumonia, respiratory failure, right-sided pneumothorax which has remained stable. The patient has been on room air oxygen. He continues to be on IV f luid was D5 water and 150 mEq of sodium bicarbonate running at 75 mL an hour in addition to a normal saline running at 75 Christy hour. Renal function continues to improve. Creatinine continues to improve. The patient remains on a combination of Rocephin and Zithromax regarding the right lower lobe pneumonia. Cultures of been negative thus far. Nephrotic syndrome the case regarding the acute kidney injury. Today's white cell count is at 7.2. Hemoglobin stable at 9.2. BUN is still elevated at 168 with a creatinine of 7.3 although this is improved compared to yesterday. The neck fluid balance has been +2.9 L 40 yesterday and +3.2 L over the past shift. Nephrology is on the case. Based on the persistent abnormality in the right lower lung area, I proceeded with a CAT scan of the chest and the CAT scan showed a 20% pneumothorax on the right, moderate to large bilateral pleural effusion with perihilar and basilar infiltrates and a masslike infiltration in the left lower lobe. Discussed the findings with interventional radiology. May consider a pigtail catheter drain the fluid and the pneumothorax and regular chest tube. On 12/30/2019 the patient is being seen for a follow-up. I performed a thoracentesis on this patient yesterday. A total of 900 mL of pleural fluid was aspirated. The right-sided pneumothorax was also removed. There was obvious decrease in size of the right-sided pneumothorax and the fluid analysis came back as transudate consistent with CHF as the patient had low LDH and low protein in the pleural fluid. This morning the patient's pulse ox 98% on room air. The patient was on a bicarb infusion rate of 80 mL an hour. His serum bicarb is up to 26 and the patient will be taken of the sodium bicarb and be placed on normal saline. The neck fluid balance has been +3.2 L over the past 24 hours. Chest x-ray findings show a small right apical pneumothorax, there is bilateral basilar airspace disease and there is also an ongoing left-sided pleur al effusion. The patient otherwise is improving in terms of his renal function. Creatinine slowly improving and the BUN is down to 160 in the creatinine is down to 6.8. Rest of the electrodes are all within normal limits. Calcium level was at 5.5 and the patient was given IV calcium replacement. White cell count is 9.1. Hemoglobin is at 8.7. The antibiotic coverage remains a combination of Rocephin and Zithromax. No other changes and antibiotic coverage was done for the time being. The pro calcitonin level was 0.51. On 12/31/2019, the patient is looking well and has no specific complaints. Renal function continues to be impaired. Nephrology was considering dialysis, however, based on the ongoing improvement in urine output, dialysis will not be down we'll continue to monitor the patient's renal function. I am still monitoring the patient's respiratory status. The patient remains on broad- spectrum antibiotics. We treated him for a lower lobe pneumonia bilateral, however, based on further evaluations, the patient seems to be having more so pleural effusions. I performed a right-sided thoracentesis evacuating the right-sided pneumothorax and the right-sided pleural effusion. The fluid was a transudate. There is still some residual right-sided pneumothorax on today's chest x-ray. The patient is afebrile. The patient is producing adequate amount of urine output. He remains on the same antibiotic coverage. He is still in a positive fluid balance of 365 mL over the past 24 hours. His BN is at 148. Creatinine is at 6.8. No significant electrolyte disturbances. The white cell count is at 8 with a hemoglobin of 8.3. Reevaluated today on 01/01/20, patient remains in the ICU, he is on room air with O2 saturation in 94%. His IV fluid is at 100 mL/h, and I cut it down to KVO. Patient seems to be doing well since he had his right sided thoracentesis, the fluid turned out to be transudative in nature, and not extubated. Hence I have a feeling that this is all related to acute systolic congestive heart failure rather than pneumonia and parapneumonic effusion. Again the fluid was transudate of and speaks in favor of cardiac etiology of his failure rather than pulmonary etiology. Nonetheless, patient remains empirically on antibiotics coverage. Underlying pneumonia is not entirely ruled out, but at this point I feel it is less likely. Labs today showed WBC count of 8.9 hemoglobin is 7.9. Index was abnormal renal profile remains poor with BUN of 144 creatinine 6.49 minimal improvement compared to yesterday's labs. Clinically however the mallory morris is feeling better, breathing easier, and he is on room air at 94% SaO2. Reevaluated today on 01/02/20, patient ICU, he is presently on room air, he feels generally weak, tired, he is negative fluid balance over the last 24 hours by 125 ML. Renal functioning seems to be worsening. Patient remains in atrial flutter however rate is 70 beats per minutes. Continues to have fine crackles at the bases. And chest x-ray is suggestive of mild interstitial edema and small tiny pleural effusions. Discussed his condition with nephrology, and considering his renal status, patient is being considered for hemodialysis today. Patient is hemodynamically stable. But again he feels extremely weak a nd tired. Renal profile is worse with a BUN of 137 creatinine 6.28. CBC showed WBC count of 8.6 hemoglobin is 8. Reevaluated today on 01/03/20, patient remains in the ICU, doing relatively well, improved compared to yesterday, not feeling as weak. Underwent hemodialysis yesterday, his urine output is about 3 0 mL per hour. Oral intake is reasonable. Patient is feeling better to chest x-ray continues to show evidence of mild congestive heart failure changes. Patient is on room air, O2 satur ations 99%, he has no IV fluid, and I plan to transfer the patient out of the ICU to a cardiac bed on selective today. On 01/04/2020 patient seen in follow-up on selective care unit, his breathing co ntinues to improve, he remains on room air, with pulse ox of 100%, hemodynamically stable, his been afebrile. He was started on hemodialysis this admission, and yesterday he had a treatment would removal of 3.2 L of fluid. Today's labs have been reviewed, electrolytes are unremarkable, renal profile has improved, B1 is down to 82, creatinine is 4.45. Lung sounds are positive for diminished breath sounds at the bases. Patient has a little bit more awake and alert us stronger today. No nausea vomiting or diarrhea. He remains on oral Lasix as well, empiric antibiotics in the form of azithromycin, his blood cultures pleural fluid cultures and sputum have all been negative, pleural fluid analysis transudate of fluid consistent with CHF exacerbation. On 01/05/2020 patient seen on selective care unit, she is awake and alert, in no acute distress, he sitting up in the recliner, currently on room air, with a pulse of 97%. Breathing is comfortable, patient has hemodialysis yesterday with removal of 3.2 L of fluid, he is voiding, today's labs have been reviewed showing stable renal function, with BUN of 87 and creatinine of 4.74. His pro calcitonin was low, we discontinued patient's antibiotics, his been afebrile, no cough or congestion or phlegm production. His blood and pleural fluid sputum and urine cultures have been negative. No CBC today. No nausea vomiting or diarrhea. Doing well Objective - Vital Signs Vital signs: Vital Signs Temp 97.7 F 01/05/20 08:00 Pulse 66 01/05/20 08:00 Resp 22 01/05/20 08:00 BP 106/55 01/05/20 08:00 Pulse Ox 97 01/05/20 03:30 Intake & Output 01/04/20 01/05/20 01/05/20 18:59 06:59 18:59 Intake Total 1200 Output Total 70 375 Balance 1130 -375 Weight 84.8 kg 67.5 kg Intake: Oral 1200 Output: Urine 70 375 Other: Voiding Method Indwelling Catheter Indwelling Catheter Indwelling Catheter # Voids 1 # Bowel Movements 2 - Exam GENERAL EXAM: Alert, very pleasant, 79-year-old white male, appears to be chronically ill, but no acute distress, currently on room air, with pulse ox 97% comfortable in no apparent distress. HEAD: Normocephalic/atraumatic. EYES: Normal reaction of pupils, equal size. Conjunctiva pink, sclera white. NOSE: Clear with pink turbinates. THROAT: No erythema or exudates. NECK: No masses, no JVD, no thyroid enlargement, no adenopathy. CHEST: No chest wall deformity. Symmetrical expansion. LUNGS: Equal air entry with no crackles, wheeze, rhonchi or dullness. CVS: Regular rate and rhythm, normal S1 and S2, no gallops, no murmurs, no rubs ABDOMEN: Soft, nontender. No hepatosplenomegaly, normal bowel sounds, no guarding or rigidity. EXTREMITIES: No clubbing, no edema, no cyanosis, 2+ pulses and upper and lower extremities. MUSCULOSKELETAL: Muscle strength and tone normal. SPINE: No scoliosis or deformity SKIN: No rashes CENTRAL NERVOUS SYSTEM: Alert and oriented -3. No focal deficits, tone is normal in all 4 extremities. PSYCHIATRIC: Alert and oriented -3. Appropriate affect. Intact judgment and insight. - Labs CBC & Chem 7: 01/03/20 03:49 01/05/20 06:05 Labs: Abnormal Lab Results - Last 24 Hours (Table) 01/04/20 01/04/20 01/05/20 Range/Units 16:47 20:24 06:05 Sodium 135 L (137-145) mmol/L BUN 87 H (9-20) mg/dL Creatinine 4.74 H (0.66-1.25) mg/dL Glucose 54 L (74-99) mg/dL POC Glucose (mg/dL) 198 H 274 H (75-99) mg/dL Calcium 6.5 L (8.4-10.2) mg/dL Phosphorus 6.7 H (2.5-4.5) mg/dL 01/05/20 Range/Units 11:45 Sodium (137-145) mmol/L BUN (9-20) mg/dL Creatinine (0.66-1.25) mg/dL Glucose (74-99) mg/dL POC Glucose (mg/dL) 205 H (75-99) mg/dL Calcium (8.4-10.2) mg/dL Phosphorus (2.5-4.5) mg/dL Microbiology - Last 24 Hours (Table) 01/04/20 12:04 Urine Culture - Final Urine,Catheterized Assessment and Plan Plan: Assessment: Acute systolic congestive heart failure, ejection fraction is 45%, known to have moderate mitral regurgitation and aortic stenosis. Right sided pleural effusion, transudative in nature based on the labs. This is cardiac in nature. Cytology on the fluid was also negative. Type 2 diabetes with nephropathy. Hypertension. Dyslipidemia. Coronary artery disease and previous CABG in December of 2018. Acute on chronic kidney disease stage IV. Troponin leak History of iron deficiency anemia and previous positive occult blood in the stools. Plan: Doing well, breathing is comfortable, he is on room air, no cough or congestion, we stopped his antibiotics yesterday, CULTURES have been negative, no fever or chills, from pulmonary perspective he could be considered for discharge today with outpatient follow-up. Disposition is per attending service recommendation. I performed a history & physical examination of the patient and discussed their management with my nurse practitioner, Demetria Ramos. I reviewed the nurse doron lane's note and agree with the documented findings and plan of care. Lung sounds are positive for diminished breath sound at the bases. The findings and the impression was discussed with the patient. I attest to the documentation by the nurse practitioner. Time with Patient: Less than 30
[2020-01-05] MEDS: CALCIUM ACETATE 667 MG TAB PO SCH ×2 (13:00→17:04)
--- NOTE | 2020-01-05 15:18 | PN ---
PROGRESS NOTE DATE OF SERVICE: 01/05/2020 This is a 79-year-old gentleman who was admitted with shortness of breath, is being closely monitored. The patient also had significant lesions on the chest x-ray on the right side. Thoracocentesis done and suspicion pneumothorax also noted initially, but however, repeat chest x-ray did not show any clear pneumothorax at this time. The patient also started on new onset hemodialysis with a temporary dialysis catheter. The patient also has significant gait dysfunction. PT, OT is also evaluating the patient for possible ECF rehab. Multiple consultants are following the patient closely. The most recent chest x-ray which was personally reviewed by me showed significant lesions on the right side, still persistent pleural effusion and some haziness as well, indicating possible underlying pneumonia versus atelectasis. PAST MEDICAL HISTORY: Reviewed. REVIEW OF SYSTEMS: CARDIOVASCULAR SYSTEM: No angina. RESPIRATORY: As mentioned earlier. GI: As mentioned earlier. : As mentioned earlier. NERVOUS SYSTEMS: No numbness or weakness. CURRENT MEDICATIONS: Reviewed and include: 1. [place] 5 mg q.6h p.r.n. 2. DuoNeb q.i.d. and p.r.n. 3. Eliquis 5 mg p.o. b.i.d. 4. Vitamin C 500 mg p.o. b.i.d. 5. Aspirin 81 mg p.o. daily. 6. PhosLo 667 p.o. t.i.d. 7. Tums 1000 mg p.o. b.i.d. 8. Ancef 60 mg p.o. q.72h.. 9. Colace 100 mg p.o. daily. 10.Vitamin D2 fifty thousand p.o. q.72h. 11.Iron sulfate 320 mg p.o. b.i.d. 12.Proscar 5 mg p.o. daily. 13.Lasix 80 mg p.o. b.i.d. 14.Levemir 10 units subcu q.h.s. 15.Ammonia lactate. 16.Melatonin 3 mg q.h.s. 17.Lopressor 25 mg p.o. b.i.d. 18.Zofran 4 mg IV q.6 p.r.n. 19.Protonix 40 mg p.o. daily. 20.Pravachol 80 mg p.o. daily. 21.Promethazine. 22.Flomax. PHYSICAL EXAMINATION: Patient is alert, oriented x2. Pulse is 65, blood pressure 96/51, respiration 18, temperature 98.2, pulse ox 97% on room air. HEENT: Conjunctivae normal. NECK: No jugular venous distension. CARDIAC: S1, S2, muffled. RESPIRATORY: Breath sounds diminished at the bases, a few scattered rhonchi, no crackles. ABDOMEN: Soft, nontender. LEGS: No edema. No swelling. NERVOUS SYSTEM: No focal deficits. LABS: Sodium 130, potassium 5.1m creatinine is 4.76, ASSESSMENT: 1. Congestive heart failure acute exacerbation with acute on chronic systolic dysfunction ejection fraction 45% with moderate mitral regurgitation, aortic stenosis. 2. Acute renal failure with possible acute on chronic possibly acute tubular necrosis with newly started hemodialysis. 3. Right-sided pleural effusion status post thoracocentesis, possibly secondary to transudative reaction secondary to CHF and renal failure. 4. Possible right lower pneumonia, underlying with possibly gram-negative. 5. Chronic atrial fibrillation. 6. Elevated troponin indeterminate etiology at the time of presentation 0.259. 7. Diabetes mellitus type 2 with nephropathy next hypertension next hyperlipidemia. 8. Gait dysfunction. 9. History of CAD, CAB. 10.History of chronic kidney stage 4. 11.History of normocytic anemia possibly secondary to chronic renal disease. 12.History of DJD. 13.History of CAD, stent. 14.FULL CODE. RECOMMENDATIONS AND DISCUSSION: This 79-year-old gentleman who presented with multiple complex medical issues, at this time I would recommend to continue the current medications, management and continue with diuretics. Continue the hemodialysis. Otherwise, chest x-ray noted and as mentioned earlier. The most recent 2D echocardiogram which was done in October, showed ejection fraction of 45%. This also had in the with chronic systolic dysfunction ejection fraction 45^ to 50% and as well as severe calcification. We will continue to monitor. Prognosis guarded. Further recommendations to follow. MMODL / IJN: [id number] /
[2020-01-05 16:31] LABS: Glucose,Whole Blood 147 mg/dL (75-99)
[2020-01-05] MEDS: SODIUM CHLORIDE 0.9% 1,000 ML IV SCH (17:03)
[2020-01-05 20:10] LABS: Glucose,Whole Blood 212 mg/dL (75-99)
[2020-01-05] MEDS: INSULIN DETEMIR (LEVEMIR) 100 UNIT/ML SYR SQ SCH (21:31)
[2020-01-05] MEDS: MELATONIN 3 MG TABLET PO SCH (21:31)
[2020-01-06 06:02] LABS: Glucose,Whole Blood 128 mg/dL (75-99)
[2020-01-06] MEDS: INSULIN ASPART (NovoLOG) 100 UNIT/ML VIAL SQ SCH ×4 (06:09→20:58)
[2020-01-06] MEDS: CALCIUM ACETATE 667 MG TAB PO SCH ×3 (06:16→17:30)
[2020-01-06] MEDS: ASCORBIC ACID 500 MG TAB PO SCH ×2 (06:16→17:30)
[2020-01-06] MEDS: SODIUM BICARBONATE TAB 650 MG TAB PO SCH ×2 (08:34→20:57)
[2020-01-06] MEDS: METOPROLOL TARTRATE 25 MG TAB PO SCH ×2 (08:34→20:56)
[2020-01-06] MEDS: TAMSULOSIN 0.4 MG CAP.ER.24H PO SCH ×2 (08:34→20:56)
[2020-01-06] MEDS: APIXABAN 5 MG TAB PO SCH ×2 (08:34→20:57)
[2020-01-06] MEDS: CALCIUM CARBONATE 500 MG CHEWABLE PO SCH ×2 (08:34→20:58)
[2020-01-06] MEDS: FINASTERIDE 5 MG TAB PO SCH (08:34)
[2020-01-06] MEDS: FUROSEMIDE 80 MG TAB PO SCH ×2 (08:34→17:30)
[2020-01-06] MEDS: ASPIRIN 81 MG PO SCH (08:34)
[2020-01-06] MEDS: PANTOPRAZOLE 40 MG TABLET PO SCH (08:34)
[2020-01-06] MEDS: FERROUS SULFATE 325 MG TAB PO SCH ×2 (08:34→20:56)
[2020-01-06] MEDS: PRAVASTATIN SODIUM 80 MG TAB PO SCH (08:35)
[2020-01-06] MEDS: AMMONIUM LACTATE 12% CREAM 140 GM TUBE TOPICAL SCH ×2 (08:36→21:01)
[2020-01-06 11:17] LABS: Glucose,Whole Blood 201 mg/dL (75-99)
--- NOTE | 2020-01-06 12:42 | P.PN ---
Subjective Progress Note Date: 01/06/20 Follow-up for acute kidney injury on hemodialysis. Objective - Vital Signs Vital signs: Vital Signs Temp 98.2 F 01/06/20 08:00 Pulse 72 01/06/20 12:00 Resp 16 01/06/20 12:00 BP 90/52 01/06/20 12:00 Pulse Ox 98 01/06/20 08:00 Intake & Output 01/05/20 01/06/20 01/06/20 18:59 06:59 18:59 Intake Total 476 Output Total 2350 Balance -2350 476 Weight 86 kg Intake: Oral 476 Output: Urine 350 Hemodialysis 2000 Other: Voiding Method Indwelling Catheter Indwelling Catheter Indwelling Catheter - Exam No acute distress Sitting comfortable Lungs clear Torres catheter Trace edema - Labs CBC & Chem 7: 01/03/20 03:49 01/05/20 06:05 Labs: Abnormal Lab Results - Last 24 Hours (Table) 01/05/20 01/05/20 01/06/20 Range/Units 16:30 20:08 06:01 POC Glucose (mg/dL) 147 H 212 H 128 H (75-99) mg/dL 01/06/20 Range/Units 11:16 POC Glucose (mg/dL) 201 H (75-99) mg/dL Microbiology - Last 24 Hours (Table) 01/04/20 12:04 Urine Culture - Final Urine,Catheterized Assessment and Plan Assessment: #1 acute kidney injury secondary to ischemic ATN on hemodialysis. 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
--- NOTE | 2020-01-06 14:12 | P.PN ---
Subjective Progress Note Date: 01/06/20 Principal diagnosis: Acute exacerbation of congestive heart failure, acute renal failure The patient is seen today 01/06/2020 in follow-up on the selective care unit. He is currently resting comfortably in bed. Awake and alert in no acute distress. He denies any worsening shortness of breath, cough or congestion. He is maintaining good O2 saturations in the upper 90s on room air. He's been afebrile. Hemodynamically stable. Sputum culture reveals no growth. Pleural fluid cultures revealed no growth. The cultures reveal no growth. Blood glucose 201. Plan is for hemodialysis on Wednesday and subsequent transfer to [facility] for rehab Objective - Vital Signs Vital signs: Vital Signs Temp 98.2 F 01/06/20 08:00 Pulse 72 01/06/20 12:00 Resp 16 01/06/20 12:00 BP 90/52 01/06/20 12:00 Pulse Ox 98 01/06/20 08:00 Intake & Output 01/05/20 01/06/20 01/06/20 18:59 06:59 18:59 Intake Total 476 Output Total 2350 Balance -2350 476 Weight 86 kg Intake: Oral 476 Output: Urine 350 Hemodialysis 2000 Other: Voiding Method Indwelling Catheter Indwelling Catheter Indwelling Catheter - Exam GENERAL EXAM: Alert, very pleasant, 79-year-old white male, appears to be chronically ill, but no acute distress, currently on room air, with pulse ox 98% comfortable in no apparent distress. HEAD: Normocephalic/atraumatic. EYES: Normal reaction of pupils, equal size. Conjunctiva pink, sclera white. NOSE: Clear with pink turbinates. THROAT: No erythema or exudates. NECK: No masses, no JVD, no thyroid enlargement, no adenopathy. CHEST: No chest wall deformity. Symmetrical expansion. LUNGS: Equal air entry with faint crackles in the bilateral posterior bases CVS: Regular rate and rhythm, normal S1 and S2, no gallops, no murmurs, no rubs ABDOMEN: Soft, nontender. No hepatosplenomegaly, normal bowel sounds, no guarding or rigidity. EXTREMITIES: Right femoral hemodialysis catheter in place. No clubbing, no edema, no cyanosis, 2+ pulses and upper and lower extremities. MUSCULOSKELETAL: Muscle strength and tone normal. SPINE: No scoliosis or deformity SKIN: No rashes CENTRAL NERVOUS SYSTEM: No focal deficits, tone is normal in all 4 extremities. PSYCHIATRIC: Alert and oriented -3. Appropriate affect. Intact judgment and insight. - Labs CBC & Chem 7: 01/03/20 03:49 01/05/20 06:05 Labs: Abnormal Lab Results - Last 24 Hours (Table) 01/05/20 01/05/20 01/06/20 Range/Units 16:30 20:08 06:01 POC Glucose (mg/dL) 147 H 212 H 128 H (75-99) mg/dL 01/06/20 Range/Units 11:16 POC Glucose (mg/dL) 201 H (75-99) mg/dL Microbiology - Last 24 Hours (Table) 01/04/20 12:04 Urine Culture - Final Urine,Catheterized Assessment and Plan Assessment: Acute systolic congestive heart failure, ejection fraction is 45%, known to have moderate mitral regurgitation and aortic stenosis. Right sided pleural effusion, transudative in nature based on the labs. This is cardiac in nature. Cytology on the fluid was also negative. Type 2 diabetes with nephropathy. Hypertension. Dyslipidemia. Coronary artery disease and previous CABG in December of 2018. Acute on chronic kidney disease stage IV. Troponin leak History of iron deficiency anemia and previous positive occult blood in the stools. Plan: The patient was seen and evaluated by Dr. Dobbs He is currently stable from the pulmonary standpoint On room air Plan is for hemodialysis Wednesday Plan is for transfer to [facility] for continued rehabilitation We'll continue to follow I, the cosigning physician, performed a history & physical examination of the patient. Lungs sounds with crackles in the bilateral posterior bases. Maintaining good O2 saturations in the 90s on room air. I discussed the assessment and plan of care with my nurse practitioner, Page Cervantes. I attest to the above note as dictated by her.
[2020-01-06 16:24] LABS: Glucose,Whole Blood 235 mg/dL (75-99)
--- NOTE | 2020-01-06 16:55 | PN ---
PROGRESS NOTE DATE OF SERVICE: 01/06/2020 This 79-year-old gentleman who was admitted CHF acute exacerbation also had renal failure new onset. Hemodialysis initiated. Patient appears to tolerate the hemodialysis well. PT/OT evaluated the patient closely for possible ECF rehab with continued hemodialysis. Pulmonary and nephrology following the patient. No chest pain. No palpitations. No fever. PHYSICAL EXAMINATION: Alert and oriented times three. Pulse 72. Blood pressure 90/52. Respirations 16. Temperature normal. Pulse ox 98% on room air. HEENT: Conjunctivae normal. NECK: No JVD. CARDIOVASCULAR: S1, S2 muffled. RESPIRATION: Breath sounds diminished in the bases. A few scattered rhonchi. No crackles. ABDOMEN is soft, nontender. No mass palpable. LEGS no edema. No swelling. Central nervous system: Diffusely weak. LABS: Accu-Cheks 212, 128 and 201. ASSESSMENT: 1. Congestive heart failure, acute exacerbation, acute on chronic systolic dysfunction. Ejection fraction 45% with moderate mitral regurgitation and aortic stenosis. 2. Acute renal failure with possible acute on chronic possibly acute tubular necrosis with newly started hemodialysis. 3. Right-sided pleural effusion with status post thoracocentesis, possibly secondary to transudative reaction secondary to congestive heart failure and renal failure. 4. Possible right lower lobe pneumonia, underlying with possibly gram-negative. 5. Chronic atrial fibrillation. 6. Elevated troponin, indeterminate etiology at the time of presentation 0.259. 7. Diabetes mellitus type 2 with nephropathy. 8. Hypertension. 9. Hyperlipidemia. 10.Gait dysfunction. 11.History of coronary artery disease, coronary artery bypass grafting. 12.History of chronic kidney disease stage 4. 13.History of normocytic anemia secondary to chronic renal disease. 14.History of degenerative joint disease. 15.History of coronary artery disease, stent. 16.FULL CODE. RECOMMENDATIONS AND DISCUSSION: I recommend to continue current management. Otherwise, continue the hemodialysis. PT/OT evaluation, possible ECF rehab. Repeat labs. Closely follow with Cardiology and Nephrology. Guarded prognosis because of multiple complex medical issues. Further recommendations to follow. MMODL / IJN: [id number] /
[2020-01-06 19:31] LABS: Glucose,Whole Blood 317 mg/dL (75-99)
[2020-01-06] MEDS: MELATONIN 3 MG TABLET PO SCH (20:57)
[2020-01-06] MEDS: INSULIN DETEMIR (LEVEMIR) 100 UNIT/ML SYR SQ SCH (20:59)
[2020-01-06] MEDS: SODIUM CHLORIDE 0.9% 1,000 ML IV SCH (21:01)
[2020-01-07 05:51] LABS: Glucose,Whole Blood 137 mg/dL (75-99)
[2020-01-07 06:13] LABS: Anisocytosis Slight; Basophils % (A) 1 %; Calcium 6.6 mg/dL (8.4-10.2); Eosinophils # (A) 0.3 k/uL (0-0.7); Eosinophils % (A) 3 %; HCT 21.7 % (39.0-53.0); Hypochromasia Moderate; Lymphocytes # (A) 0.4 k/uL (1.0-4.8); Lymphocytes % (A) 5 %; MCH 27.9 pg (25.0-35.0); MCHC 31.4 g/dL (31.0-37.0); Mean Platelet Volume 9.1; Monocytes # (A) 0.6 k/uL (0-1.0); Monocytes % (A) 7 %; Neutrophils # (A) 6.7 k/uL (1.3-7.7); Neutrophils % (A) 83 %; Platelet Count 136 k/uL (150-450); Potassium 5.6 mmol/L (3.5-5.1); RBC 2.45 m/uL (4.30-5.90); RDW 16.1 % (11.5-15.5); WBC 8.1 k/uL (3.8-10.6)
[2020-01-07 06:16] LABS: MCV 88.8 fL (80.0-100.0)
[2020-01-07 06:17] LABS: HGB 6.8 gm/dL (13.0-17.5)
[2020-01-07] MEDS: APIXABAN 5 MG TAB PO SCH ×2 (06:25→08:04)
[2020-01-07] MEDS: ASPIRIN 81 MG PO SCH ×2 (06:25→08:04)
[2020-01-07] MEDS: CALCIUM ACETATE 667 MG TAB PO SCH ×3 (06:32→17:12)
[2020-01-07] MEDS: ASCORBIC ACID 500 MG TAB PO SCH ×2 (06:33→17:13)
[2020-01-07] MEDS: INSULIN ASPART (NovoLOG) 100 UNIT/ML VIAL SQ SCH ×4 (06:35→20:42)
[2020-01-07] MEDS: METOPROLOL TARTRATE 25 MG TAB PO SCH ×2 (08:03→20:40)
[2020-01-07] MEDS: SODIUM BICARBONATE TAB 650 MG TAB PO SCH ×2 (08:03→20:41)
[2020-01-07] MEDS: CALCIUM CARBONATE 500 MG CHEWABLE PO SCH ×2 (08:03→20:42)
[2020-01-07] MEDS: FINASTERIDE 5 MG TAB PO SCH (08:04)
[2020-01-07] MEDS: FERROUS SULFATE 325 MG TAB PO SCH ×2 (08:04→20:40)
[2020-01-07] MEDS: FUROSEMIDE 80 MG TAB PO SCH ×2 (08:04→17:13)
[2020-01-07] MEDS: PANTOPRAZOLE 40 MG TABLET PO SCH (08:04)
[2020-01-07] MEDS: TAMSULOSIN 0.4 MG CAP.ER.24H PO SCH ×2 (08:04→20:41)
[2020-01-07] MEDS: AMMONIUM LACTATE 12% CREAM 140 GM TUBE TOPICAL SCH ×3 (08:08→21:34)
[2020-01-07] MEDS: PRAVASTATIN SODIUM 80 MG TAB PO SCH (08:08)
[2020-01-07 11:12] LABS: Glucose,Whole Blood 188 mg/dL (75-99)
--- NOTE | 2020-01-07 11:58 | P.PN ---
Subjective Progress Note Date: 01/07/20 Follow-up for acute kidney injury on hemodialysis. Objective - Vital Signs Vital signs: Vital Signs Temp 97.9 F 01/07/20 11:34 Pulse 63 01/07/20 11:34 Resp 16 01/07/20 11:34 BP 105/55 01/07/20 11:34 Pulse Ox 97 01/07/20 04:00 Intake & Output 01/06/20 01/07/20 01/07/20 18:59 06:59 18:59 Intake Total 1188 10 0 Output Total 0 475 Balance 1188 -465 0 Weight 87.5 kg Intake: IV 10 Sodium Chloride 0.9% 1, 10 000 ml @ 20 mls/hr IV . Q24H [facility] Rx#:[id number] Oral 1188 0 Blood Product 0 Rc As-1 Unit 0 [id number] Output: Urine 0 475 Other: Voiding Method Indwelling Catheter Indwelling Catheter Indwelling Catheter # Voids 2 # Bowel Movements 1 - Exam No acute distress Sitting comfortable Lungs clear Torres catheter Trace edema - Labs CBC & Chem 7: 01/07/20 05:29 01/07/20 05:29 Labs: Abnormal Lab Results - Last 24 Hours (Table) 01/06/20 01/06/20 01/07/20 Range/Units 16:22 19:30 05:29 RBC 2.45 L (4.30-5.90) m/uL Hgb 6.8 L* (13.0-17.5) gm/dL Hct 21.7 L (39.0-53.0) % RDW 16.1 H (11.5-15.5) % Plt Count 136 L (150-450) k/uL Lymphocytes # 0.4 L (1.0-4.8) k/uL Sodium (137-145) mmol/L Potassium (3.5-5.1) mmol/L BUN (9-20) mg/dL Creatinine (0.66-1.25) mg/dL POC Glucose (mg/dL) 235 H 317 H (75-99) mg/dL Calcium (8.4-10.2) mg/dL Crossmatch 01/07/20 01/07/20 01/07/20 Range/Units 05:29 05:50 06:34 RBC (4.30-5.90) m/uL Hgb (13.0-17.5) gm/dL Hct (39.0-53.0) % RDW (11.5-15.5) % Plt Count (150-450) k/uL Lymphocytes # (1.0-4.8) k/uL Sodium 136 L (137-145) mmol/L Potassium 5.6 H (3.5-5.1) mmol/L BUN 85 H (9-20) mg/dL Creatinine 4.43 H (0.66-1.25) mg/dL POC Glucose (mg/dL) 137 H (75-99) mg/dL Calcium 6.6 L (8.4-10.2) mg/dL Crossmatch See Detail 01/07/20 Range/Units 11:11 RBC (4.30-5.90) m/uL Hgb (13.0-17.5) gm/dL Hct (39.0-53.0) % RDW (11.5-15.5) % Plt Count (150-450) k/uL Lymphocytes # (1.0-4.8) k/uL Sodium (137-145) mmol/L Potassium (3.5-5.1) mmol/L BUN (9-20) mg/dL Creatinine (0.66-1.25) mg/dL POC Glucose (mg/dL) 188 H (75-99) mg/dL Calcium (8.4-10.2) mg/dL Crossmatch Assessment and Plan Assessment: #1 acute kidney injury secondary to ischemic ATN on hemodialysis. 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
--- NOTE | 2020-01-07 16:16 | PN ---
PROGRESS NOTE DATE OF SERVICE: 01/07/2020 This 79-year-old gentleman admitted with CHF acute exacerbation, acute on chronic systolic dysfunction, also had mitral regurgitation and aortic stenosis also. The patient is being closely monitored. Patient is started on new onset hemodialysis. PT OT evaluated the patient for ECF rehab, but today the hemoglobin is found to be 6.8, potassium is 5.6, calcium 6. The patient is being closely monitored by Nephrology. PAST MEDICAL HISTORY: Reviewed. REVIEW OF SYSTEMS: CARDIOVASCULAR SYSTEM: No angina. RESPIRATION; As mentioned earlier. GI: As mentioned earlier. : No dysuria. CURRENT MEDICATIONS: 1. Leckrone 5 mg q.6h p.r.n. 2. DuoNeb q.i.d. and p.r.n. 3. Eliquis 5 mg p.o. b.i.d. 4. Vitamin C 500 mg b.i.d. 5. Aspirin 81 mg p.o. daily. 6. PhosLo 667 t.i.d. 7. Tums 1000 mg b.i.d. 8. Aranesp 60 mg q.72h. 9. Colace 100 mg p.o. daily. 10.Vitamin D2. 11.Iron sulfate. 12.Proscar. 13.Lasix. 14.NovoLog. 15.Levemir 10 units subcu q.h.s. 16.Ammonia lactate. 17.Melatonin. 18.Lopressor. 19.Zofran. 20.Protonix. 21.Pravachol. 22.Flomax. PHYSICAL EXAMINATION: Patient is alert, oriented x3. Pulse is 63, blood pressure 100/55, respirations 16, temperature 97.9, pulse ox noted. HEENT: Conjunctivae normal. Oral mucosa moist. NECK: No jugular venous distention. No lymph node enlargement. CARDIOVASCULAR: S1, S2. RESPIRATORY: Diminished breath sounds at the bases. Bilateral scattered rhonchi and crackles. ABDOMEN: Soft, nontender. LEGS: No edema, no swelling. NERVOUS SYSTEM: No focal deficits. LABS: WBC 8.2, hemoglobin 6.8, sodium 130, potassium 5.2, creatinine is 4.43. ASSESSMENT: 1. Congestive heart failure acute exacerbation with acute on chronic systolic dysfunction, ejection fraction 45% with moderate mitral regurgitation, aortic stenosis. 2. Acute renal failure, possible acute on chronic with possible acute tubular necrosis with newly started hemodialysis. 3. Right-sided pleural effusion status post thoracocentesis, possibly secondary to transudative reaction secondary to congestive heart failure and renal failure. 4. Possible right lower pneumonia, underlying with possibly gram-negative. 5. Chronic atrial fibrillation. 6. Elevated troponin of undetermined etiology at the time of presentation, 0.259. 7. Diabetes type 2 with nephropathy. 8. Hypertension. 9. Hyperlipidemia. 10.Gait dysfunction. 11.History of coronary artery disease, coronary artery bypass grafting. 12.Chronic kidney disease, stage 4. 13.History of normocytic anemia secondary to chronic renal disease. 14.History of degenerative joint disease. 15.History of coronary artery disease, stent. 16.FULL CODE. RECOMMENDATIONS AND DISCUSSION: In this 79-year-old gentleman who presented with multiple complex medical issues, we will monitor the patient closely, continue the current management and treatment. Otherwise, one unit of transfusion. Monitor fluid balance closely. Continue the hemodialysis. Low-potassium diet. Monitor potassium closely. PT/OT evaluation, possible ECF rehab. Prognosis guarded because of multiple complex medical issues. Further recommendations to follow. MMODL / IJN: [id number] /
[2020-01-07 16:24] LABS: Glucose,Whole Blood 245 mg/dL (75-99)
[2020-01-07 20:29] LABS: Glucose,Whole Blood 285 mg/dL (75-99)
[2020-01-07] MEDS: SODIUM CHLORIDE 0.9% 1,000 ML IV SCH (20:38)
[2020-01-07] MEDS: MELATONIN 3 MG TABLET PO SCH (20:40)
[2020-01-07] MEDS: INSULIN DETEMIR (LEVEMIR) 100 UNIT/ML SYR SQ SCH (20:42)
[2020-01-08 05:11] LABS: Anisocytosis Slight; Basophils % (A) 0 %; Eosinophils # (A) 0.3 k/uL (0-0.7); Eosinophils % (A) 3 %; HCT 23.5 % (39.0-53.0); HGB 7.6 gm/dL (13.0-17.5); Hypochromasia Moderate; Lymphocytes # (A) 0.4 k/uL (1.0-4.8); Lymphocytes % (A) 6 %; MCH 28.9 pg (25.0-35.0); MCHC 32.3 g/dL (31.0-37.0); MCV 89.6 fL (80.0-100.0); Mean Platelet Volume 7.8; Monocytes # (A) 0.6 k/uL (0-1.0); Monocytes % (A) 7 %; Neutrophils # (A) 6.3 k/uL (1.3-7.7); Neutrophils % (A) 81 %; Platelet Count 161 k/uL (150-450); RBC 2.62 m/uL (4.30-5.90); RDW 16.3 % (11.5-15.5); WBC 7.8 k/uL (3.8-10.6)
[2020-01-08 05:19] LABS: INR 1.2 (<1.2); Partial Thromboplastin Time 32.6 sec (22.0-30.0); Prothrombin Time 12.1 sec (9.0-12.0)
[2020-01-08 05:24] LABS: Calcium 6.6 mg/dL (8.4-10.2); Potassium 5.8 mmol/L (3.5-5.1)
[2020-01-08 06:20] LABS: Glucose,Whole Blood 111 mg/dL (75-99)
[2020-01-08] MEDS: INSULIN ASPART (NovoLOG) 100 UNIT/ML VIAL SQ SCH ×4 (06:30→22:13)
[2020-01-08] MEDS: CALCIUM ACETATE 667 MG TAB PO SCH ×3 (06:32→17:51)
[2020-01-08] MEDS: ASCORBIC ACID 500 MG TAB PO SCH ×2 (06:32→17:51)
[2020-01-08] MEDS: PANTOPRAZOLE 40 MG TABLET PO SCH (09:07)
[2020-01-08] MEDS: CALCIUM CARBONATE 500 MG CHEWABLE PO SCH ×2 (09:07→22:14)
[2020-01-08] MEDS: HYDROcodone/APAP 5-325MG 1 EACH TAB PO PRN (09:07)
[2020-01-08] MEDS: TAMSULOSIN 0.4 MG CAP.ER.24H PO SCH ×2 (09:07→22:13)
[2020-01-08] MEDS: METOPROLOL TARTRATE 25 MG TAB PO SCH ×2 (09:07→22:13)
[2020-01-08] MEDS: FUROSEMIDE 80 MG TAB PO SCH (09:08)
[2020-01-08] MEDS: AMMONIUM LACTATE 12% CREAM 140 GM TUBE TOPICAL SCH ×2 (09:08→22:15)
[2020-01-08] MEDS: PRAVASTATIN SODIUM 80 MG TAB PO SCH (09:08)
[2020-01-08] MEDS: SODIUM BICARBONATE TAB 650 MG TAB PO SCH ×2 (09:08→22:14)
[2020-01-08] MEDS: FINASTERIDE 5 MG TAB PO SCH (09:08)
[2020-01-08] MEDS: FERROUS SULFATE 325 MG TAB PO SCH ×2 (09:08→22:13)
[2020-01-08] MEDS: ONDANSETRON 4 MG/2 ML VIAL IVP PRN ×2 (09:20→20:29)
--- NOTE | 2020-01-08 11:31 | P.PN ---
Subjective Progress Note Date: 01/08/20 Principal diagnosis: Acute exacerbation of CHF 79-year-old male patient who came into the emergency department complaining of worsening shortness of breath. He denied having any significant cough or sputum production. Denied having any sick contacts including exposure to COVID 19. He was however getting more short of breath and addition to that he was coughing out some thick sputum. Denied having any chest pain. No nausea. No vomiting. No abdominal pain. He has multiple medical problems and comorbidities in summary, the patient has history of chronic kidney disease stage 3-4, coronary artery disease with previous bypass surgery that was done in December 2018, diabet es mellitus with history of diabetic nephropathy, hypertension, hyperlipidemia, chronic atrial fibrillation and chronic congestion heart failure. His workup in emergency department revealed the following He had a chest x-ray that showed better pleural effusion in addition to a right lower lobe consolidation. EKG showed no acute ST segment elevation or depression. There was a right bundle branch block pattern with a sinus rhythm His blood work showed an acute on top of chronic kidney injury. His creatinine was up to 8.3 with a potassium level of 5.4 in the sodium level [id number]. Note that his baseline creatinine was as high as 2.4. He did have some mild troponin elevation with levels being at 0.08, 0.11 and 0.25 respectively His occult stool was also positive His blood gases showed metabolic acidosis with a pH of 7.11 and a pCO2 of 22 and pO2 of 118 The patient was seen in intensive care unit. Despite his metabolic acidosis, the patient was awake and alert and following commands and answering course appropriately. Clinically , he was quite dry including grasses mucous membranes without any significant edema in lower extremities bilaterally. He was given IV fluids and recommended giving another liter of bolus and maintaining him on a bicarb infusion with D5 and 150 mEq of sodium bicarbonate to be relatively 5 mL an hour. He was started on broad-spectrum antibiotics. He was given accommodation Rocephin and Zithromax. I held his diuretics for now. His echocardiogram from previous evaluations have shown an ejection fraction of 40- 45% and his last cardiac catheterization was done in November 2018 showing GONZALEZ to LAD, saphenous vein graft to diagonal branch and acute marginal branch and left PDA. He had essentially nonocclusive disease. He has mild aortic stenosis and moderate mitral regurgitation. On 12/28/2019, the patient is being seen for a follow-up in the intensive care unit. Note that the patient was being treated for right lower lobe pneumonia/bilateral pneumonia and the patient was given a broad-spectrum antibiotic coverage. He was also in acute on chronic kidney injury and the patient was resuscitated IV fluids. On today's evaluation, the patient is quite comfortable and he is still on room air oxygen. His chest x-ray from today shows a 15th 20% pneumothorax on the right. Note that this was a spontaneous pneumothorax and the patient did not have any fall, trauma, or any other surgical procedures done on the right side of the chest. The patient is on a D5 and 150 mg of bicarb infusion rate of 75 mL's an hour. Urine output is in order of 30 mL an hour. The patient remains in atrial fibrillation with a controlled rate. The white cell count is at 7.8 with hemoglobin 8.5. White cell count is improved. Hemoglobin dropped however this was essentially a adequate study for now nontender the previous value was hemoconcentrated. The patient's BUN is on 279. The patient's creatinine is down to 7.9. The patient's serum bicarbs up to 35. I added also normal saline at 75 an hour. The patient me what is still on a broad-spectrum antibiotic coverage utilizing a combination of Rocephin and Zithromax. He is afebrile. I decided not to put any chest tube on the right side as the patient is quite comfortable and there is no evidence of any tension. Nevertheless, I decided to obtain a follow-up chest x-ray at around noontime. This will be needed to monitor the right-sided pneumothorax. On 12/29/2019, patient is being seen for a follow-up. The patient has bilateral pneumonia, respiratory failure, right-sided pneumothorax which has remained stable. The patient has been on room air oxygen. He continues to be on IV f luid was D5 water and 150 mEq of sodium bicarbonate running at 75 mL an hour in addition to a normal saline running at 75 Christy hour. Renal function continues to improve. Creatinine continues to improve. The patient remains on a combination of Rocephin and Zithromax regarding the right lower lobe pneumonia. Cultures of been negative thus far. Nephrotic syndrome the case regarding the acute kidney injury. Today's white cell count is at 7.2. Hemoglobin stable at 9.2. BUN is still elevated at 168 with a creatinine of 7.3 although this is improved compared to yesterday. The neck fluid balance has been +2.9 L 40 yesterday and +3.2 L over the past shift. Nephrology is on the case. Based on the persistent abnormality in the right lower lung area, I proceeded with a CAT scan of the chest and the CAT scan showed a 20% pneumothorax on the right, moderate to large bilateral pleural effusion with perihilar and basilar infiltrates and a masslike infiltration in the left lower lobe. Discussed the findings with interventional radiology. May consider a pigtail catheter drain the fluid and the pneumothorax and regular chest tube. On 12/30/2019 the patient is being seen for a follow-up. I performed a thoracentesis on this patient yesterday. A total of 900 mL of pleural fluid was aspirated. The right-sided pneumothorax was also removed. There was obvious decrease in size of the right-sided pneumothorax and the fluid analysis came back as transudate consistent with CHF as the patient had low LDH and low protein in the pleural fluid. This morning the patient's pulse ox 98% on room air. The patient was on a bicarb infusion rate of 80 mL an hour. His serum bicarb is up to 26 and the patient will be taken of the sodium bicarb and be placed on normal saline. The neck fluid balance has been +3.2 L over the past 24 hours. Chest x-ray findings show a small right apical pneumothorax, there is bilateral basilar airspace disease and there is also an ongoing left-sided pleur al effusion. The patient otherwise is improving in terms of his renal function. Creatinine slowly improving and the BUN is down to 160 in the creatinine is down to 6.8. Rest of the electrodes are all within normal limits. Calcium level was at 5.5 and the patient was given IV calcium replacement. White cell count is 9.1. Hemoglobin is at 8.7. The antibiotic coverage remains a combination of Rocephin and Zithromax. No other changes and antibiotic coverage was done for the time being. The pro calcitonin level was 0.51. On 12/31/2019, the patient is looking well and has no specific complaints. Renal function continues to be impaired. Nephrology was considering dialysis, however, based on the ongoing improvement in urine output, dialysis will not be down we'll continue to monitor the patient's renal function. I am still monitoring the patient's respiratory status. The patient remains on broad- spectrum antibiotics. We treated him for a lower lobe pneumonia bilateral, however, based on further evaluations, the patient seems to be having more so pleural effusions. I performed a right-sided thoracentesis evacuating the right-sided pneumothorax and the right-sided pleural effusion. The fluid was a transudate. There is still some residual right-sided pneumothorax on today's chest x-ray. The patient is afebrile. The patient is producing adequate amount of urine output. He remains on the same antibiotic coverage. He is still in a positive fluid balance of 365 mL over the past 24 hours. His BN is at 148. Creatinine is at 6.8. No significant electrolyte disturbances. The white cell count is at 8 with a hemoglobin of 8.3. Reevaluated today on 01/01/20, patient remains in the ICU, he is on room air with O2 saturation in 94%. His IV fluid is at 100 mL/h, and I cut it down to KVO. Patient seems to be doing well since he had his right sided thoracentesis, the fluid turned out to be transudative in nature, and not extubated. Hence I have a feeling that this is all related to acute systolic congestive heart failure rather than pneumonia and parapneumonic effusion. Again the fluid was transudate of and speaks in favor of cardiac etiology of his failure rather than pulmonary etiology. Nonetheless, patient remains empirically on antibiotics coverage. Underlying pneumonia is not entirely ruled out, but at this point I feel it is less likely. Labs today showed WBC count of 8.9 hemoglobin is 7.9. Index was abnormal renal profile remains poor with BUN of 144 creatinine 6.49 minimal improvement compared to yesterday's labs. Clinically however the mallory morris is feeling better, breathing easier, and he is on room air at 94% SaO2. Reevaluated today on 01/02/20, patient ICU, he is presently on room air, he feels generally weak, tired, he is negative fluid balance over the last 24 hours by 125 ML. Renal functioning seems to be worsening. Patient remains in atrial flutter however rate is 70 beats per minutes. Continues to have fine crackles at the bases. And chest x-ray is suggestive of mild interstitial edema and small tiny pleural effusions. Discussed his condition with nephrology, and considering his renal status, patient is being considered for hemodialysis today. Patient is hemodynamically stable. But again he feels extremely weak a nd tired. Renal profile is worse with a BUN of 137 creatinine 6.28. CBC showed WBC count of 8.6 hemoglobin is 8. Reevaluated today on 01/03/20, patient remains in the ICU, doing relatively well, improved compared to yesterday, not feeling as weak. Underwent hemodialysis yesterday, his urine output is about 3 0 mL per hour. Oral intake is reasonable. Patient is feeling better to chest x-ray continues to show evidence of mild congestive heart failure changes. Patient is on room air, O2 satur ations 99%, he has no IV fluid, and I plan to transfer the patient out of the ICU to a cardiac bed on [facility] today. On 01/04/2020 patient seen in follow-up on [facility] care unit, his breathing co ntinues to improve, he remains on room air, with pulse ox of 100%, hemodynamically stable, his been afebrile. He was started on hemodialysis this admission, and yesterday he had a treatment would removal of 3.2 L of fluid. Today's labs have been reviewed, electrolytes are unremarkable, renal profile has improved, B1 is down to 82, creatinine is 4.45. Lung sounds are positive for diminished breath sounds at the bases. Patient has a little bit more awake and alert us stronger today. No nausea vomiting or diarrhea. He remains on oral Lasix as well, empiric antibiotics in the form of azithromycin, his blood cultures pleural fluid cultures and sputum have all been negative, pleural fluid analysis transudate of fluid consistent with CHF exacerbation. On 01/05/2020 patient seen on [facility] care unit, she is awake and alert, in no acute distress, he sitting up in the recliner, currently on room air, with a pulse of 97%. Breathing is comfortable, patient has hemodialysis yesterday with removal of 3.2 L of fluid, he is voiding, today's labs have been reviewed showing stable renal function, with BUN of 87 and creatinine of 4.74. His pro calcitonin was low, we discontinued patient's antibiotics, his been afebrile, no cough or congestion or phlegm production. His blood and pleural fluid sputum and urine cultures have been negative. No CBC today. No nausea vomiting or diarrhea. Doing well On 01/08/2020 patient seen in follow-up on [facility] care unit. He is resting in bed, she is morning, he is complaining of back pain, apparently today he was supposed to have dialysis but could not tolerate dialysis because of hypotension and systolic blood pressure in the 70s. He also complained of some chest pain during dialysis so the treatment had to be stopped. Currently on 2 L of oxygen, room air pulse ox earlier was 98%, his been, denies any worsening shortness of breath, today's labs have been reviewed showing fairly stable renal profile, with the BUN of 98, and creatinine of 4.58, sodium of 134, potassium is 5.8, the rest of electrolytes were within normal limits, white blood cell count was 7.8, hemoglobin is 7.6, he was given a unit of blood yesterday for hemoglobin of 6.8. No new chest x-rays today, no fever or chills, all cultures including sputum, pleural fluid in urine cultures have been negative. He has completed his antibiotics, he remains on oral Lasix 80 mg twice daily Objective - Vital Signs Vital signs: Vital Signs Temp 97.7 F 01/08/20 04:00 Pulse 69 01/08/20 04:00 Resp 18 01/08/20 04:00 BP 125/62 01/08/20 04:00 Pulse Ox 98 01/08/20 04:00 Intake & Output 01/07/20 01/08/20 01/08/20 18:59 06:59 18:59 Intake Total 660 10 120 Output Total 500 Balance 660 -490 120 Weight 86.8 kg Intake: IV 10 Sodium Chloride 0.9% 1, 10 000 ml @ 20 mls/hr IV . Q24H [facility] Rx#:[id number] Oral 350 120 Blood Product 310 Rc As-1 Unit 310 [id number] Output: Urine 500 Other: Voiding Method Indwelling Catheter Indwelling Catheter # Bowel Movements 1 - Exam GENERAL EXAM: Alert, very pleasant, 79-year-old white male, appears to be chronically ill, in moderate to severe amount of distress from his back pain, on 2 L of oxygen, but no evidence of shortness of breath HEAD: Normocephalic/atraumatic. EYES: Normal reaction of pupils, equal size. Conjunctiva pink, sclera white. NOSE: Clear with pink turbinates. THROAT: No erythema or exudates. NECK: No masses, no JVD, no thyroid enlargement, no adenopathy. CHEST: No chest wall deformity. Symmetrical expansion. LUNGS: Equal air entry with no crackles, wheeze, rhonchi or dullness. CVS: Regular rate and rhythm, normal S1 and S2, no gallops, no murmurs, no rubs ABDOMEN: Soft, nontender. No hepatosplenomegaly, normal bowel sounds, no guarding or rigidity. EXTREMITIES: No clubbing, no edema, no cyanosis, 2+ pulses and upper and lower extremities. MUSCULOSKELETAL: Muscle strength and tone normal. SPINE: No scoliosis or deformity SKIN: No rashes CENTRAL NERVOUS SYSTEM: Alert and oriented -3. No focal deficits, tone is normal in all 4 extremities. PSYCHIATRIC: Alert and oriented -3. Appropriate affect. Intact judgment and insight. - Labs CBC & Chem 7: 01/08/20 04:53 01/08/20 04:53 Labs: Abnormal Lab Results - Last 24 Hours (Table) 01/07/20 01/07/20 01/07/20 Range/Units 06:34 16:23 20:28 RBC (4.30-5.90) m/uL Hgb (13.0-17.5) gm/dL Hct (39.0-53.0) % RDW (11.5-15.5) % Lymphocytes # (1.0-4.8) k/uL PT (9.0-12.0) sec INR (<1.2) APTT (22.0-30.0) sec Sodium (137-145) mmol/L Potassium (3.5-5.1) mmol/L BUN (9-20) mg/dL Creatinine (0.66-1.25) mg/dL POC Glucose (mg/dL) 245 H 285 H (75-99) mg/dL Calcium (8.4-10.2) mg/dL Crossmatch See Detail 01/08/20 01/08/20 01/08/20 Range/Units 04:53 04:53 04:53 RBC 2.62 L (4.30-5.90) m/uL Hgb 7.6 L (13.0-17.5) gm/dL Hct 23.5 L (39.0-53.0) % RDW 16.3 H (11.5-15.5) % Lymphocytes # 0.4 L (1.0-4.8) k/uL PT 12.1 H (9.0-12.0) sec INR 1.2 H (<1.2) APTT 32.6 H (22.0-30.0) sec Sodium 134 L (137-145) mmol/L Potassium 5.8 H (3.5-5.1) mmol/L BUN 98 H (9-20) mg/dL Creatinine 4.58 H (0.66-1.25) mg/dL POC Glucose (mg/dL) (75-99) mg/dL Calcium 6.6 L (8.4-10.2) mg/dL Crossmatch 01/08/20 Range/Units 06:19 RBC (4.30-5.90) m/uL Hgb (13.0-17.5) gm/dL Hct (39.0-53.0) % RDW (11.5-15.5) % Lymphocytes # (1.0-4.8) k/uL PT (9.0-12.0) sec INR (<1.2) APTT (22.0-30.0) sec Sodium (137-145) mmol/L Potassium (3.5-5.1) mmol/L BUN (9-20) mg/dL Creatinine (0.66-1.25) mg/dL POC Glucose (mg/dL) 111 H (75-99) mg/dL Calcium (8.4-10.2) mg/dL Crossmatch Microbiology - Last 24 Hours (Table) 12/29/19 16:15 Fungal Culture - Preliminary Pleural Fluid Assessment and Plan Plan: Assessment: #1. Acute systolic congestive heart failure, ejection fraction is 45%, known to have moderate mitral regurgitation and aortic stenosis. #2. Right sided pleural effusion, transudative in nature based on the labs. This is cardiac in nature. Cytology on the fluid was also negative. #3. Type 2 diabetes with nephropathy. #4. Hypertension. #5. Dyslipidemia. #6. Coronary artery disease and previous CABG in December of 2018. #7. Acute on chronic kidney disease stage IV, requiring initiation of hemodi alysis #8. Troponin leak #9. History of iron deficiency anemia and previous positive occult blood in the stools. #10. Hypotension today, possibly hypovolemic, hemodialysis treatment had to be stopped Plan: Patient could not tolerate hemodialysis today, related to hypotension, and chest pain. Hemodialysis treatment had to be discontinued. No worsening dyspnea, we will obtain chest x-ray tomorrow morning, overall prognosis is very guarded, recommend to discuss CODE STATUS with the patient. Otherwise continue supportive treatment I performed a history & physical examination of the patient and discussed their management with my nurse practitioner, Demetria Ramos. I reviewed the nurse practitioner's note and agree with the documented findings and plan of care. Lung sounds are positive for diminished breath sound at the bases. The findings and the impression was discussed with the patient. I attest to the documentation by the nurse practitioner. Time with Patient: Less than 30
[2020-01-08 11:53] LABS: Glucose,Whole Blood 200 mg/dL (75-99)
[2020-01-08] MEDS: ERGOCALCIFEROL 50,000 UNIT CAP PO SCH (12:50)
[2020-01-08] MEDS: SODIUM CHLORIDE 0.9% 1,000 ML IV SCH (12:51)
--- NOTE | 2020-01-08 15:09 | P.PN ---
Subjective Progress Note Date: 01/08/20 Principal diagnosis: This is a 79-year-old male who was recently admitted with congestive heart failure acute exacerbation, acute on chronic systolic dysfunction also had mitral regurgitation and aortic stenosis noted and is being closely monitored. Patient also started with hemodialysis new-onset. Multiple medical consultations following closely. PT/OT to evaluate the patient for possible ECF rehab for continued physical therapy treatment for strength and mobility. Nasreen lee was receiving hemodialysis today and stated he was having some chest pain and heart rate was noted to be in the 30s to 50s along with some hypotension and hemodialysis was stopped. Patient then stated he was having no chest pain just some nausea with severe back pain and requesting to sit up in the chair. Patient was given Zofran with relief of nausea. Hemoglobin today was 7.6, sodium 134, potassium 5.8, BUN 98, and current creatinine 4.58. Will attempt dialysis again tomorrow. Nephrology is following closely. review of systems: Constitutional: No reports of fevers or chills Cardiovascular: Reported chest pain that has resolved, no reports of palpitations Respiratory: No reports of shortness of breath or cough GI: Reported mild nausea that is resolved, no reports of vomiting or diarrhea : No reports of dysuria or retention Active Medications Hydrocodone Bitart/Acetaminophen ([place] 5-325) 1 each PO Q6HR PRN PRN Reason: Pain Last Admin: 01/08/20 09:07 Dose: 1 each Documented by: Albuterol/Ipratropium (Duoneb 0.5 Mg-3 Mg/3 Ml Soln) 3 ml INHALATION RT-Q4H PRN PRN Reason: Shortness Of Breath Ascorbic Acid (Vitamin C) 500 mg PO BID-W/MEALS [facility] Last Admin: 01/08/20 06:32 Dose: 500 mg Documented by: Calcium Acetate (Phoslo) 667 mg PO TID-W/MEALS [facility] Last Admin: 01/08/20 12:50 Dose: 667 mg Documented by: Calcium Carbonate/Glycine (Tums) 1,000 mg PO BID [facility] Last Admin: 01/08/20 09:07 Dose: 1,000 mg Documented by: Darbepoetin Samson (Aranesp) 60 mcg SQ Q7D [facility] Last Admin: 01/04/20 16:12 Dose: 60 mcg Documented by: Docusate Sodium (Colace) 100 mg PO DAILY PRN PRN Reason: Constipation Last Admin: 01/03/20 12:26 Dose: 100 mg Documented by: Ergocalciferol (Vitamin D2) 50,000 unit PO Q72H [facility] Last Admin: 01/08/20 12:50 Dose: 50,000 unit Documented by: Ferrous Sulfate (Feosol) 325 mg PO BID [facility] Last Admin: 01/08/20 09:08 Dose: 325 mg Documented by: Finasteride (Proscar) 5 mg PO DAILY [facility] Last Admin: 01/08/20 09:08 Dose: 5 mg Documented by: Furosemide (Lasix) 80 mg IV Q12HR [facility] Sodium Chloride (Saline 0.9%) 1,000 mls @ 20 mls/hr IV .Q24H [facility] Last Admin: 01/08/20 12:51 Dose: Not Given Documented by: Promethazine HCl 6.25 mg/ (Sodium Chloride) 50.25 mls @ 200 mls/hr IVPB Q6HR PRN PRN Reason: Nausea Last Admin: 12/31/19 16:28 Dose: 200 mls/hr Documented by: Insulin Aspart (Novolog) 0 unit SQ [facility]; Protocol Last Admin: 01/08/20 12:50 Dose: 2 unit Documented by: Insulin Detemir (Levemir) 10 unit SQ [facility] Last Admin: 01/07/20 20:42 Dose: 10 unit Documented by: Lactic Acid (Ammonium Lactate) 1 applic TOPICAL BID [facility] Last Admin: 01/08/20 09:08 Dose: 1 applic Documented by: Melatonin (Melatonin) 3 mg PO [facility] Last Admin: 01/07/20 20:40 Dose: 3 mg Documented by: Metoprolol Tartrate (Lopressor) 25 mg PO BID [facility] Last Admin: 01/08/20 09:07 Dose: 25 mg Documented by: Miscellaneous Information (Potassium Per Protocol) 1 each MISCELLANE DAILY PRN; Protocol PRN Reason: Per Protocol Ondansetron HCl (Zofran) 4 mg IVP Q6HR PRN PRN Reason: Nausea And Vomiting Last Admin: 01/08/20 09:20 Dose: 4 mg Documented by: Pantoprazole Sodium (Protonix) 40 mg PO DAILY [facility] Last Admin: 01/08/20 09:07 Dose: 40 mg Documented by: Pravastatin Sodium (Pravachol) 80 mg PO DAILY [facility] Last Admin: 01/08/20 09:08 Dose: 80 mg Documented by: Sodium Bicarbonate (Sodium Bicarbonate Tab) 650 mg PO BID [facility] Last Admin: 01/08/20 09:08 Dose: 650 mg Documented by: Tamsulosin HCl (Flomax) 0.4 mg PO BID [facility] Last Admin: 01/08/20 09:07 Dose: 0.4 mg Documented by: Objective - Vital Signs Vital signs: Vital Signs Temp 98.0 F 01/08/20 12:46 Pulse 57 L 01/08/20 12:46 Resp 20 01/08/20 12:46 BP 102/60 01/08/20 12:46 Pulse Ox 94 L 01/08/20 08:00 Intake & Output 01/07/20 01/08/20 01/08/20 18:59 06:59 18:59 Intake Total 660 10 330 Output Total 500 625 Balance 660 -490 -295 Weight 86.8 kg 86.8 kg Intake: IV 10 Sodium Chloride 0.9% 1, 10 000 ml @ 20 mls/hr IV . Q24H [facility] Rx#:[id number] Oral 350 330 Blood Product 310 Rc As-1 Unit 310 [id number] Output: Urine 500 250 Stool 0 Hemodialysis 375 Other: Voiding Method Indwelling Catheter Indwelling Catheter Indwelling Catheter # Bowel Movements 1 - Exam Gen: This is a 79-year-old male sitting up in bed, awake, alert and oriented 3, well-developed, well-nourished. Temp is 98F, pulse is 57, respirations are 20, blood pressure is 102/60, oxygen saturation is 94% on room air. HEENT: Head is atraumatic, normocephalic. Pupils equal, round. Sclerae is anicteric. NECK: Supple. No JVD. No lymphadenopathy. No thyromegaly. LUNGS: Diminished breath sounds at the bases with a few scattered rhonchi noted. No intercostal retractions. HEART: S1, S2 are muffled ABDOMEN: Soft. Bowel sounds are present. No masses. No tenderness. EXTREMITIES: No pedal edema. No calf tenderness. NEUROLOGICAL: Patient is awake, alert and oriented x3. Cranial nerves 2 through 12 are grossly intact. - Labs CBC & Chem 7: 01/08/20 04:53 05/04/20 04:53 Labs: Abnormal Lab Results - Last 24 Hours (Table) 01/07/20 01/07/20 01/08/20 Range/Units 16:23 20:28 04:53 RBC (4.30-5.90) m/uL Hgb (13.0-17.5) gm/dL Hct (39.0-53.0) % RDW (11.5-15.5) % Lymphocytes # (1.0-4.8) k/uL PT (9.0-12.0) sec INR (<1.2) APTT (22.0-30.0) sec Sodium 134 L (137-145) mmol/L Potassium 5.8 H (3.5-5.1) mmol/L BUN 98 H (9-20) mg/dL Creatinine 4.58 H (0.66-1.25) mg/dL POC Glucose (mg/dL) 245 H 285 H (75-99) mg/dL Calcium 6.6 L (8.4-10.2) mg/dL 01/08/20 01/08/20 01/08/20 Range/Units 04:53 04:53 06:19 RBC 2.62 L (4.30-5.90) m/uL Hgb 7.6 L (13.0-17.5) gm/dL Hct 23.5 L (39.0-53.0) % RDW 16.3 H (11.5-15.5) % Lymphocytes # 0.4 L (1.0-4.8) k/uL PT 12.1 H (9.0-12.0) sec INR 1.2 H (<1.2) APTT 32.6 H (22.0-30.0) sec Sodium (137-145) mmol/L Potassium (3.5-5.1) mmol/L BUN (9-20) mg/dL Creatinine (0.66-1.25) mg/dL POC Glucose (mg/dL) 111 H (75-99) mg/dL Calcium (8.4-10.2) mg/dL 01/08/20 Range/Units 11:50 RBC (4.30-5.90) m/uL Hgb (13.0-17.5) gm/dL Hct (39.0-53.0) % RDW (11.5-15.5) % Lymphocytes # (1.0-4.8) k/uL PT (9.0-12.0) sec INR (<1.2) APTT (22.0-30.0) sec Sodium (137-145) mmol/L Potassium (3.5-5.1) mmol/L BUN (9-20) mg/dL Creatinine (0.66-1.25) mg/dL POC Glucose (mg/dL) 200 H (75-99) mg/dL Calcium (8.4-10.2) mg/dL Microbiology - Last 24 Hours (Table) 12/29/19 16:15 Fungal Culture - Preliminary Pleural Fluid Assessment and Plan Assessment: Congestive heart failure, acute exacerbation with acute on chronic systolic dysfunction, ejection fraction 45% with moderate mitral regurgitation, aortic stenosis Acute renal failure, possible acute on chronic with possible acute tubular necrosis with newly started hemodialysis Right-sided pleural effusion status post thoracentesis, possibly secondary to transudate is reaction secondary to congestive heart failure and renal failure Possible right lower lobe pneumonia, underlying with possible gram-negative Chronic atrial fibrillation Elevated troponin of undetermined etiology at the time of presentation 0.259 Diabetes mellitus type 2 with nephropathy Hypertension Hyperlipidemia Gait dysfunction History of coronary artery disease, coronary artery bypass grafting Chronic kidney disease stage IV History of normocytic anemia secondary to chronic renal disease history of degenerative joint disease History of coronary artery disease, stent Full code Recommendations and discussion: Recommend to continue current medications, management, and symptomatic treatment. Continue with hemodialysis. Also medical consultations following. Continue to monitor vital signs and labs closely and transfuse for hemoglobin less than 7. Continue with low potassium diet. Repeat chest x-ray in the morning. PT/OT to evaluate the patient. Case management and social work following for possible ECF placement for continued physical therapy for strength and mobility upon discharge. Further recommendations to follow. Possible discharge in 24-48 hours.
--- NOTE | 2020-01-08 16:19 | PN ---
PROGRESS NOTE Patient is seen for followup for chronic kidney disease and acute kidney injury. Patient's renal function had improved since initial admission. However, his creatinine stayed around 6 any he continued to have symptoms of fatigue and nausea and therefore he was eventually started on dialysis. Patient had been tolerating his treatments fairly well. However, this morning he had significant chest pain while on the machine. He also had nausea and therefore patient was taken off after 5 minutes of treatment. His blood pressure did not drop significantly. His chest pain has now resolved. This morning blood pressure was 122/64, heart rate 70 per minute, he is afebrile. Examination of the heart S1, S2. Examination of lungs, decreased breath sounds at bases. Abdomen is soft, nontender. Examination of lower extremities shows edema 3+ bilaterally. Both legs are wrapped. [employer] exam grossly intact. LABS: Show sodium 134, potassium 5.8, chloride 100, CO2 is 98, BUN 4.58. ASSESSMENT: 1. Acute kidney injury, currently maintained on hemodialysis, most likely acute tubular necrosis, currently nonoliguric. A 24 hour urine output documented at about 500 mL. It is on the lower side, particularly since patient has been started on dialysis. I will hold hemodialysis today and we will arrange for dialysis again tomorrow morning, if patient remains stable. 2. Chest pain, rule out cardiac ischemia. 3. Hyperkalemia associated with progressive renal failure. Repeat potassium this evening and we will arrange for hemodialysis in a.m. No active bleeding noted at this time. 4. Symptoms of uremia currently improved, post initiation of renal replacement therapy. 5. Severe volume depletion on initial admission, status post IV fluids. 6. Metabolic acidosis, now resolved with the initiation of renal replacement therapy. 7. Pneumonia, maintained on antibiotics. PLAN: Continue with the Lasix, changed to IV Lasix and we will arrange for hemodialysis again in a.m. and increase UF as tolerated for 3 to 3.5 L. MMODL / IJN: [id number] /
[2020-01-08 16:33] LABS: Glucose,Whole Blood 275 mg/dL (75-99)
[2020-01-08 20:59] LABS: Glucose,Whole Blood 297 mg/dL (75-99)
[2020-01-08] MEDS: INSULIN DETEMIR (LEVEMIR) 100 UNIT/ML SYR SQ SCH (22:12)
[2020-01-08] MEDS: FUROSEMIDE 10 MG/ML 10 ML VIAL IV SCH (22:12)
[2020-01-08] MEDS: MELATONIN 3 MG TABLET PO SCH (22:13)
[2020-01-09] MEDS: ONDANSETRON 4 MG/2 ML VIAL IVP PRN (04:53)
[2020-01-09 06:03] LABS: Glucose,Whole Blood 116 mg/dL (75-99)
[2020-01-09 06:03] LABS: Anisocytosis Slight; Basophils # (A) 0.1 k/uL (0-0.2); Basophils % (A) 1 %; Eosinophils # (A) 0.2 k/uL (0-0.7); Eosinophils % (A) 3 %; HCT 24.7 % (39.0-53.0); HGB 7.5 gm/dL (13.0-17.5); Hypochromasia Moderate; Lymphocytes # (A) 0.5 k/uL (1.0-4.8); Lymphocytes % (A) 5 %; MCH 27.5 pg (25.0-35.0); MCHC 30.4 g/dL (31.0-37.0); MCV 90.7 fL (80.0-100.0); Mean Platelet Volume 8.1; Monocytes # (A) 0.8 k/uL (0-1.0); Monocytes % (A) 8 %; Neutrophils # (A) 7.7 k/uL (1.3-7.7); Neutrophils % (A) 80 %; Platelet Count 151 k/uL (150-450); RBC 2.72 m/uL (4.30-5.90); RDW 17.1 % (11.5-15.5); WBC 9.6 k/uL (3.8-10.6)
[2020-01-09 06:18] LABS: Calcium 6.7 mg/dL (8.4-10.2)
[2020-01-09 06:29] LABS: Potassium 6.3 mmol/L (3.5-5.1)
[2020-01-09] MEDS: INSULIN ASPART (NovoLOG) 100 UNIT/ML VIAL SQ SCH ×4 (06:45→21:23)
[2020-01-09] MEDS ORDERED: SODIUM POLYSTYRENE SULFONATE 15 GM/60 ML BOTTLE PO STA (07:03)
[2020-01-09] MEDS: CALCIUM ACETATE 667 MG TAB PO SCH ×3 (07:15→17:51)
[2020-01-09] MEDS: ASCORBIC ACID 500 MG TAB PO SCH ×2 (07:15→17:51)
--- NOTE | 2020-01-09 07:37 | XR ---
EXAMINATION TYPE: XR chest 1V portable DATE OF EXAM: 01/09/2020 HISTORY: Shortness of breath. COMPARISON: 01/05/2020 TECHNIQUE: Single view of the chest is submitted. FINDINGS: Demonstrated are scattered senescent parenchymal change. Persistent cardiomegaly with small bilateral pleural effusions. Underlying right lower lobe infiltrat e or atelectasis suspected. Hilar and mediastinal structures are within normal limits. Degenerative changes are seen of the dorsal spine. IMPRESSION: 1. Stable chest.
[2020-01-09] MEDS: HYDROcodone/APAP 5-325MG 1 EACH TAB PO PRN (08:38)
--- NOTE | 2020-01-09 11:55 | P.PN ---
Subjective Progress Note Date: 01/09/20 Principal diagnosis: Acute exacerbation of CHF 79-year-old male patient who came into the emergency department complaining of worsening shortness of breath. He denied having any significant cough or sputum production. Denied having any sick contacts including exposure to COVID 19. He was however getting more short of breath and addition to that he was coughing out some thick sputum. Denied having any chest pain. No nausea. No vomiting. No abdominal pain. He has multiple medical problems and comorbidities in summary, the patient has history of chronic kidney disease stage 3-4, coronary artery disease with previous bypass surgery that was done in December 2018, diabet es mellitus with history of diabetic nephropathy, hypertension, hyperlipidemia, chronic atrial fibrillation and chronic congestion heart failure. His workup in emergency department revealed the following He had a chest x-ray that showed better pleural effusion in addition to a right lower lobe consolidation. EKG showed no acute ST segment elevation or depression. There was a right bundle branch block pattern with a sinus rhythm His blood work showed an acute on top of chronic kidney injury. His creatinine was up to 8.3 with a potassium level of 5.4 in the sodium level [id number]. Note that his baseline creatinine was as high as 2.4. He did have some mild troponin elevation with levels being at 0.08, 0.11 and 0.25 respectively His occult stool was also positive His blood gases showed metabolic acidosis with a pH of 7.11 and a pCO2 of 22 and pO2 of 118 The patient was seen in intensive care unit. Despite his metabolic acidosis, the patient was awake and alert and following commands and answering course appropriately. Clinically , he was quite dry including grasses mucous membranes without any significant edema in lower extremities bilaterally. He was given IV fluids and recommended giving another liter of bolus and maintaining him on a bicarb infusion with D5 and 150 mEq of sodium bicarbonate to be relatively 5 mL an hour. He was started on broad-spectrum antibiotics. He was given accommodation Rocephin and Zithromax. I held his diuretics for now. His echocardiogram from previous evaluations have shown an ejection fraction of 40- 45% and his last cardiac catheterization was done in November 2018 showing GONZALEZ to LAD, saphenous vein graft to diagonal branch and acute marginal branch and left PDA. He had essentially nonocclusive disease. He has mild aortic stenosis and moderate mitral regurgitation. On 12/28/2019, the patient is being seen for a follow-up in the intensive care unit. Note that the patient was being treated for right lower lobe pneumonia/bilateral pneumonia and the patient was given a broad-spectrum antibiotic coverage. He was also in acute on chronic kidney injury and the patient was resuscitated IV fluids. On today's evaluation, the patient is quite comfortable and he is still on room air oxygen. His chest x-ray from today shows a 15th 20% pneumothorax on the right. Note that this was a spontaneous pneumothorax and the patient did not have any fall, trauma, or any other surgical procedures done on the right side of the chest. The patient is on a D5 and 150 mg of bicarb infusion rate of 75 mL's an hour. Urine output is in order of 30 mL an hour. The patient remains in atrial fibrillation with a controlled rate. The white cell count is at 7.8 with hemoglobin 8.5. White cell count is improved. Hemoglobin dropped however this was essentially a adequate study for now nontender the previous value was hemoconcentrated. The patient's BUN is on 279. The patient's creatinine is down to 7.9. The patient's serum bicarbs up to 35. I added also normal saline at 75 an hour. The patient me what is still on a broad-spectrum antibiotic coverage utilizing a combination of Rocephin and Zithromax. He is afebrile. I decided not to put any chest tube on the right side as the patient is quite comfortable and there is no evidence of any tension. Nevertheless, I decided to obtain a follow-up chest x-ray at around noontime. This will be needed to monitor the right-sided pneumothorax. On 12/29/2019, patient is being seen for a follow-up. The patient has bilateral pneumonia, respiratory failure, right-sided pneumothorax which has remained stable. The patient has been on room air oxygen. He continues to be on IV f luid was D5 water and 150 mEq of sodium bicarbonate running at 75 mL an hour in addition to a normal saline running at 75 Christy hour. Renal function continues to improve. Creatinine continues to improve. The patient remains on a combination of Rocephin and Zithromax regarding the right lower lobe pneumonia. Cultures of been negative thus far. Nephrotic syndrome the case regarding the acute kidney injury. Today's white cell count is at 7.2. Hemoglobin stable at 9.2. BUN is still elevated at 168 with a creatinine of 7.3 although this is improved compared to yesterday. The neck fluid balance has been +2.9 L 40 yesterday and +3.2 L over the past shift. Nephrology is on the case. Based on the persistent abnormality in the right lower lung area, I proceeded with a CAT scan of the chest and the CAT scan showed a 20% pneumothorax on the right, moderate to large bilateral pleural effusion with perihilar and basilar infiltrates and a masslike infiltration in the left lower lobe. Discussed the findings with interventional radiology. May consider a pigtail catheter drain the fluid and the pneumothorax and regular chest tube. On 12/30/2019 the patient is being seen for a follow-up. I performed a thoracentesis on this patient yesterday. A total of 900 mL of pleural fluid was aspirated. The right-sided pneumothorax was also removed. There was obvious decrease in size of the right-sided pneumothorax and the fluid analysis came back as transudate consistent with CHF as the patient had low LDH and low protein in the pleural fluid. This morning the patient's pulse ox 98% on room air. The patient was on a bicarb infusion rate of 80 mL an hour. His serum bicarb is up to 26 and the patient will be taken of the sodium bicarb and be placed on normal saline. The neck fluid balance has been +3.2 L over the past 24 hours. Chest x-ray findings show a small right apical pneumothorax, there is bilateral basilar airspace disease and there is also an ongoing left-sided pleur al effusion. The patient otherwise is improving in terms of his renal function. Creatinine slowly improving and the BUN is down to 160 in the creatinine is down to 6.8. Rest of the electrodes are all within normal limits. Calcium level was at 5.5 and the patient was given IV calcium replacement. White cell count is 9.1. Hemoglobin is at 8.7. The antibiotic coverage remains a combination of Rocephin and Zithromax. No other changes and antibiotic coverage was done for the time being. The pro calcitonin level was 0.51. On 12/31/2019, the patient is looking well and has no specific complaints. Renal function continues to be impaired. Nephrology was considering dialysis, however, based on the ongoing improvement in urine output, dialysis will not be down we'll continue to monitor the patient's renal function. I am still monitoring the patient's respiratory status. The patient remains on broad- spectrum antibiotics. We treated him for a lower lobe pneumonia bilateral, however, based on further evaluations, the patient seems to be having more so pleural effusions. I performed a right-sided thoracentesis evacuating the right-sided pneumothorax and the right-sided pleural effusion. The fluid was a transudate. There is still some residual right-sided pneumothorax on today's chest x-ray. The patient is afebrile. The patient is producing adequate amount of urine output. He remains on the same antibiotic coverage. He is still in a positive fluid balance of 365 mL over the past 24 hours. His BN is at 148. Creatinine is at 6.8. No significant electrolyte disturbances. The white cell count is at 8 with a hemoglobin of 8.3. Reevaluated today on 01/01/20, patient remains in the ICU, he is on room air with O2 saturation in 94%. His IV fluid is at 100 mL/h, and I cut it down to KVO. Patient seems to be doing well since he had his right sided thoracentesis, the fluid turned out to be transudative in nature, and not extubated. Hence I have a feeling that this is all related to acute systolic congestive heart failure rather than pneumonia and parapneumonic effusion. Again the fluid was transudate of and speaks in favor of cardiac etiology of his failure rather than pulmonary etiology. Nonetheless, patient remains empirically on antibiotics coverage. Underlying pneumonia is not entirely ruled out, but at this point I feel it is less likely. Labs today showed WBC count of 8.9 hemoglobin is 7.9. Index was abnormal renal profile remains poor with BUN of 144 creatinine 6.49 minimal improvement compared to yesterday's labs. Clinically however the mallory morris is feeling better, breathing easier, and he is on room air at 94% SaO2. Reevaluated today on 01/02/20, patient ICU, he is presently on room air, he feels generally weak, tired, he is negative fluid balance over the last 24 hours by 125 ML. Renal functioning seems to be worsening. Patient remains in atrial flutter however rate is 70 beats per minutes. Continues to have fine crackles at the bases. And chest x-ray is suggestive of mild interstitial edema and small tiny pleural effusions. Discussed his condition with nephrology, and considering his renal status, patient is being considered for hemodialysis today. Patient is hemodynamically stable. But again he feels extremely weak a nd tired. Renal profile is worse with a BUN of 137 creatinine 6.28. CBC showed WBC count of 8.6 hemoglobin is 8. Reevaluated today on 01/03/20, patient remains in the ICU, doing relatively well, improved compared to yesterday, not feeling as weak. Underwent hemodialysis yesterday, his urine output is about 3 0 mL per hour. Oral intake is reasonable. Patient is feeling better to chest x-ray continues to show evidence of mild congestive heart failure changes. Patient is on room air, O2 satur ations 99%, he has no IV fluid, and I plan to transfer the patient out of the ICU to a cardiac bed on selective today. On 01/04/2020 patient seen in follow-up on selective care unit, his breathing co ntinues to improve, he remains on room air, with pulse ox of 100%, hemodynamically stable, his been afebrile. He was started on hemodialysis this admission, and yesterday he had a treatment would removal of 3.2 L of fluid. Today's labs have been reviewed, electrolytes are unremarkable, renal profile has improved, B1 is down to 82, creatinine is 4.45. Lung sounds are positive for diminished breath sounds at the bases. Patient has a little bit more awake and alert us stronger today. No nausea vomiting or diarrhea. He remains on oral Lasix as well, empiric antibiotics in the form of azithromycin, his blood cultures pleural fluid cultures and sputum have all been negative, pleural fluid analysis transudate of fluid consistent with CHF exacerbation. On 01/05/2020 patient seen on selective care unit, she is awake and alert, in no acute distress, he sitting up in the recliner, currently on room air, with a pulse of 97%. Breathing is comfortable, patient has hemodialysis yesterday with removal of 3.2 L of fluid, he is voiding, today's labs have been reviewed showing stable renal function, with BUN of 87 and creatinine of 4.74. His pro calcitonin was low, we discontinued patient's antibiotics, his been afebrile, no cough or congestion or phlegm production. His blood and pleural fluid sputum and urine cultures have been negative. No CBC today. No nausea vomiting or diarrhea. Doing well On 01/08/2020 patient seen in follow-up on selective care unit. He is resting in bed, she is morning, he is complaining of back pain, apparently today he was supposed to have dialysis but could not tolerate dialysis because of hypotension and systolic blood pressure in the 70s. He also complained of some chest pain during dialysis so the treatment had to be stopped. Currently on 2 L of oxygen, room air pulse ox earlier was 98%, his been, denies any worsening shortness of breath, today's labs have been reviewed showing fairly stable renal profile, with the BUN of 98, and creatinine of 4.58, sodium of 134, potassium is 5.8, the rest of electrolytes were within normal limits, white blood cell count was 7.8, hemoglobin is 7.6, he was given a unit of blood yesterday for hemoglobin of 6.8. No new chest x-rays today, no fever or chills, all cultures including sputum, pleural fluid in urine cultures have been negative. He has completed his antibiotics, he remains on oral Lasix 80 mg twice daily On 01/09/2020 patient seen in follow-up selective care unit, he is feeling bet ter today, no complaints of chest pain, no shortness of breath, he is receiving hemodialysis treatment right now, his blood pressure is stable today, 120/58, and the goal is to remove 2-3 L of fluid with hemodialysis he still has his right groin hemodialysis access vascular surgery will be consulted for placement of permanent dialysis catheter. No fever or chills, today's labs have been reviewed, showing white blood cell, 9.6, hemoglobin is 7.5, sodium is 133, potassium 6.3, B1 is 106 and creatinine is 4.94. he remains on IV Lasix at 80 mg every 12 hours, lung sounds are diminished at the bases, no rhonchi or wheezing. Objective - Vital Signs Vital signs: Vital Signs Temp 97.9 F 01/09/20 08:00 Pulse 70 01/09/20 08:00 Resp 18 01/09/20 03:55 BP 117/42 01/09/20 08:00 Pulse Ox 98 01/09/20 08:00 Intake & Output 01/08/20 01/09/20 01/09/20 18:59 06:59 18:59 Intake Total 450 120 Output Total 625 150 Balance -175 -150 120 Weight 86.8 kg 82 kg Intake: Oral 450 120 Output: Urine 250 150 Stool 0 Hemodialysis 375 Other: Voiding Method Indwelling Catheter Indwelling Catheter Indwelling Catheter # Voids 0 # Bowel Movements 1 - Exam GENERAL EXAM: Alert, very pleasant, 79-year-old white male, appears to be chronically ill, appears weak, but she states he is feeling better today, on 2 L of oxygen, but no evidence of shortness of breath HEAD: Normocephalic/atraumatic. EYES: Normal reaction of pupils, equal size. Conjunctiva pink, sclera white. NOSE: Clear with pink turbinates. THROAT: No erythema or exudates. NECK: No masses, no JVD, no thyroid enlargement, no adenopathy. CHEST: No chest wall deformity. Symmetrical expansion. LUNGS: Equal air entry with no crackles, wheeze, rhonchi or dullness. CVS: Regular rate and rhythm, normal S1 and S2, no gallops, no murmurs, no rubs ABDOMEN: Soft, nontender. No hepatosplenomegaly, normal bowel sounds, no guarding or rigidity. EXTREMITIES: No clubbing, no edema, no cyanosis, 2+ pulses and upper and lower extremities. Right groin temporary hemodialysis catheter in place MUSCULOSKELETAL: Muscle strength and tone normal. SPINE: No scoliosis or deformity SKIN: No rashes CENTRAL NERVOUS SYSTEM: Alert and oriented -3. No focal deficits, tone is normal in all 4 extremities. PSYCHIATRIC: Alert and oriented -3. Appropriate affect. Intact judgment and insight. - Labs CBC & Chem 7: 01/09/20 05:13 01/09/20 05:13 Labs: Abnormal Lab Results - Last 24 Hours (Table) 01/07/20 01/08/20 01/08/20 Range/Units 06:34 11:50 16:26 RBC (4.30-5.90) m/uL Hgb (13.0-17.5) gm/dL Hct (39.0-53.0) % MCHC (31.0-37.0) g/dL RDW (11.5-15.5) % Lymphocytes # (1.0-4.8) k/uL Sodium (137-145) mmol/L Potassium (3.5-5.1) mmol/L BUN (9-20) mg/dL Creatinine (0.66-1.25) mg/dL POC Glucose (mg/dL) 200 H 275 H (75-99) mg/dL Calcium (8.4-10.2) mg/dL Crossmatch See Detail 01/08/20 01/09/20 01/09/20 Range/Units 20:58 05:13 05:13 RBC 2.72 L (4.30-5.90) m/uL Hgb 7.5 L (13.0-17.5) gm/dL Hct 24.7 L (39.0-53.0) % MCHC 30.4 L (31.0-37.0) g/dL RDW 17.1 H (11.5-15.5) % Lymphocytes # 0.5 L (1.0-4.8) k/uL Sodium 133 L (137-145) mmol/L Potassium 6.3 H* (3.5-5.1) mmol/L BUN 106 H* (9-20) mg/dL Creatinine 4.94 H (0.66-1.25) mg/dL POC Glucose (mg/dL) 297 H (75-99) mg/dL Calcium 6.7 L (8.4-10.2) mg/dL Crossmatch 01/09/20 Range/Units 05:58 RBC (4.30-5.90) m/uL Hgb (13.0-17.5) gm/dL Hct (39.0-53.0) % MCHC (31.0-37.0) g/dL RDW (11.5-15.5) % Lymphocytes # (1.0-4.8) k/uL Sodium (137-145) mmol/L Potassium (3.5-5.1) mmol/L BUN (9-20) mg/dL Creatinine (0.66-1.25) mg/dL POC Glucose (mg/dL) 116 H (75-99) mg/dL Calcium (8.4-10.2) mg/dL Crossmatch Microbiology - Last 24 Hours (Table) 12/29/19 16:15 Acid Fast Bacilli Smear - Final Pleural Fluid Acid Fast Bacilli Culture - Preliminary 12/29/19 16:15 Fungal Culture - Preliminary Pleural Fluid Assessment and Plan Plan: Assessment: #1. Acute systolic congestive heart failure, ejection fraction is 45%, known to have moderate mitral regurgitation and aortic stenosis. #2. Right sided pleural effusion, transudative in nature based on the labs. This is cardiac in nature. Cytology on the fluid was also negative. #3. Type 2 diabetes with nephropathy. #4. Hypertension. #5. Dyslipidemia. #6. Coronary artery disease and previous CABG in December of 2018. #7. Acute on chronic kidney disease stage IV, requiring initiation of hemodialysis #8. Troponin leak #9. History of iron deficiency anemia and previous positive occult blood in the stools. #10. Hypotension today, possibly hypovolemic, hemodialysis treatment had to be stopped Plan: Today's chest x-ray has been reviewed showing stable findings with persistent cardiomegaly and small bilateral pleural effusions and right lower lobe infi ltrate/atelectasis, patient has been afebrile, FiO2 is still at 2 L, no worsening dyspnea, he is having his hemodialysis treatment today with a goal of removal of 2-3 L of fluid, he denies any worsening shortness of breath, no cough or congestion, he has completed antibiotics. Vital signs are stable, no hypertension, no complaints of chest pain. Overall prognosis is guarded, anticipate placement to ECF following his discharge I performed a history & physical examination of the patient and discussed their management with my nurse practitioner, Demetria Ramos. I reviewed the nurse practitioner's note and agree with the documented findings and plan of care. Lung sounds are positive for diminished breath sound at the bases. The findings and the impression was discussed with the patient. I attest to the documentation by the nurse practitioner. Time with Patient: Less than 30
[2020-01-09 11:59] LABS: Glucose,Whole Blood 122 mg/dL (75-99)
[2020-01-09] MEDS: AMMONIUM LACTATE 12% CREAM 140 GM TUBE TOPICAL SCH ×2 (13:05→21:23)
[2020-01-09] MEDS: FINASTERIDE 5 MG TAB PO SCH (13:06)
[2020-01-09] MEDS: TAMSULOSIN 0.4 MG CAP.ER.24H PO SCH ×2 (13:06→21:22)
[2020-01-09] MEDS: CALCIUM CARBONATE 500 MG CHEWABLE PO SCH ×2 (13:06→21:22)
[2020-01-09] MEDS: FERROUS SULFATE 325 MG TAB PO SCH ×2 (13:06→21:22)
[2020-01-09] MEDS: SODIUM BICARBONATE TAB 650 MG TAB PO SCH (13:06)
[2020-01-09] MEDS: PANTOPRAZOLE 40 MG TABLET PO SCH (13:06)
[2020-01-09] MEDS: FUROSEMIDE 10 MG/ML 10 ML VIAL IV SCH ×2 (13:06→21:22)
[2020-01-09] MEDS: SODIUM CHLORIDE 0.9% 1,000 ML IV SCH (13:07)
[2020-01-09] MEDS: PRAVASTATIN SODIUM 80 MG TAB PO SCH (13:08)
[2020-01-09] MEDS: METOPROLOL TARTRATE 25 MG TAB PO SCH ×2 (13:08→21:24)
[2020-01-09] MEDS ORDERED: LIDOCAINE 1% INJ 10MG/ML (20 ML MDV) SQ ONE ×2 (13:30→14:19)
[2020-01-09] MEDS ORDERED: SODIUM CHLORIDE 0.9% 500 ML 500 ML IV ONE (14:30)
[2020-01-09] MEDS ORDERED: HYDROmorphone 1 MG/ML 1 ML SYRINGE IVP ONE (14:32)
--- NOTE | 2020-01-09 15:32 | PN ---
PROGRESS NOTE Patient is seen for followup for acute kidney injury on top of chronic kidney disease, currently hemodialysis dependent. Patient's urine output seems to have picked up to about 775 mL over 24 hours. He is currently seen on dialysis tolerating his treatment well. We are going for about 2 L of ultrafiltration. Patient denies any complaints. This morning blood pressure was 117/42, heart rate 70 per minute, he is afebrile. Examination shows edema bilateral lower extremities. Abdomen is soft, nontender. Patient is awake, alert, oriented x3. [employer] exam grossly intact. LABS: Show hemoglobin 7.5, sodium 133, potassium 6.3, BUN 106, serum creatinine 4.94. ASSESSMENT: 1. Acute kidney injury on top of chronic kidney disease, currently hemodialysis dependent, nonoliguric. Continue with the loop diuretics. We will also arrange for hemodialysis again in a.m. given his elevated BUN, creatinine, fatigue and hyperkalemia. Patient is also volume overloaded and this will help with the volume overload as well. 2. Anemia of chronic disease, maintained on Aranesp. No active bleeding noted currently. 3. Chronic kidney disease stage stage IV secondary to diabetic kidney disease, baseline creatinine around 2 prior to admission. 4. Volume overload, expect improvement with ongoing dialysis. 5. Cardiomyopathy, ejection fraction 45% to 50% with moderate mitral regurgitation. 6. Pneumonia, maintained on antibiotics. 7. Severe volume depletion on initial admission, currently improved. Patient is now hypervolemic. 8. Metabolic acidosis associated with ongoing renal failure, now improved, particularly with ongoing renal replacement therapy. I will discontinue the sodium bicarb. PLAN: Discontinue sodium bicarb. Repeat dialysis in a.m. Increase UF as tolerated. Continue to encourage increased oral intake. Change the temporary dialysis catheter to IJ PermCath. MMODL / IJN: [id number] /
--- NOTE | 2020-01-09 15:43 | IR ---
EXAMINATION TYPE: IR cvc insert central tunneled DATE OF EXAM: 01/09/2020 CLINICAL HISTORY: Renal failure. TECHNIQUE: Fluoroscopy. COMPARISON: None. FINDINGS: Fluoroscopic guidance was provided during dialysis catheter insertion procedure performed by Dr. Patrick. A total of 0.9 minutes of fluoroscopic time was utilized during the procedure and 3 spot images are acquired. Images show large bore right internal jugular dual-lumen dialysis catheter. IMPRESSION: As Above.
--- NOTE | 2020-01-09 15:45 | XR ---
EXAMINATION TYPE: XR chest 1V portable DATE OF EXAM: 01/09/2020 CLINICAL HISTORY: Dialysis catheter insertion. TECHNIQUE: Single AP portable upright view of the chest is obtained. COMPARISON: Chest x-ray from earlier today. FINDINGS: New dual-lumen large bore right internal jugular dialysis catheter with tips terminating a t cavoatrial junction. Overlying sternal wires and mediastinal clips along with cardiac closure devic e superior left heart aspect. Cardiomegaly with central vascular congestion and moderate bilateral pl eural effusions. Osseous structures are intact. IMPRESSION: No pneumothorax after dialysis catheter insertion. Stable fluid overload state or CHF exa cerbation as there is cardiomegaly and central vascular congestion with fairly moderate sized bilater al pleural effusions.
[2020-01-09 16:42] LABS: Glucose,Whole Blood 161 mg/dL (75-99)
--- NOTE | 2020-01-09 18:13 | PCN ---
PROCEDURE NOTE PREOP DIAGNOSIS: Acute on chronic failure. PROCEDURE: 1. Ultrasound-guided 23 cm dialysis catheter right jugular approach. 2. Removal of the temporary dialysis catheter right femoral approach. SEDATION TIME: 32 minutes. PROCEDURE DETAILS: The patient was brought to the chemical laboratory assistant. Right side of the neck and chest was prepped and drapes applied in a sterile manner. 1% lidocaine was infiltrated at the neck area. Under local IV sedation, ultrasound-guided micropuncture into the right internal jugular vein and then the 4-Indonesian dilator advanced on top of the guidewire. Then we passed a regular guidewire under fluoroscopy control. The catheter was parked in the inferior vena cava. After that, we created a tunnel. Through the tunnel, we brought 23 cm dialysis catheter into the neck area. After that, dilator was advanced on the top of the guidewire then the sheath was advanced on the top of the guidewire. Through the sheath, we introduced the dialysis catheter. Tip of the catheter in superior vena cava at the junction. After that, this was closed with Vicryl and nylon. Dressing applied. Patient tolerated the procedure well. Then the right groin was prepped and stitches were removed. Right femoral catheter was removed. Pressure was held. The patient tolerated the procedure well. Dressing applied. Patient was transferred to the recovery room in satisfactory condition. MMODL / IJN: [id number] /
[2020-01-09 20:22] LABS: Glucose,Whole Blood 161 mg/dL (75-99)
[2020-01-09] MEDS: INSULIN DETEMIR (LEVEMIR) 100 UNIT/ML SYR SQ SCH (21:22)
[2020-01-09] MEDS: MELATONIN 3 MG TABLET PO SCH (21:22)
[2020-01-10 06:23] LABS: Glucose,Whole Blood 78 mg/dL (75-99)
[2020-01-10] MEDS: INSULIN ASPART (NovoLOG) 100 UNIT/ML VIAL SQ SCH ×3 (06:52→20:19)
[2020-01-10] MEDS: CALCIUM ACETATE 667 MG TAB PO SCH ×3 (06:58→17:23)
[2020-01-10] MEDS: ASCORBIC ACID 500 MG TAB PO SCH ×2 (06:58→17:05)
--- NOTE | 2020-01-10 07:57 | P.PN ---
Subjective Progress Note Date: 01/09/20 Principal diagnosis: This is a 79-year-old male who was recently admitted with congestive heart failure acute exacerbation, acute on chronic systolic dysfunction also had mitral regurgitation and aortic stenosis noted and is being closely monitored. Patient also started with hemodialysis new-onset. Multiple medical consultations following closely. PT/OT to evaluate the patient for possible ECF rehab for continued physical therapy treatment for strength and mobility. Nasreen nt was receiving hemodialysis today and stated he was having some chest pain and heart rate was noted to be in the 30s to 50s along with some hypotension and hemodialysis was stopped. Patient then stated he was having no chest pain just some nausea with severe back pain and requesting to sit up in the chair. Patient was given Zofran with relief of nausea. Hemoglobin today was 7.6, sodium 134, potassium 5.8, BUN 98, and current creatinine 4.58. Will attempt dialysis again tomorrow. Nephrology is following closely. review of systems: Constitutional: No reports of fevers or chills Cardiovascular: Reported chest pain that has resolved, no reports of palpitations Respiratory: No reports of shortness of breath or cough GI: Reported mild nausea that is resolved, no reports of vomiting or diarrhea : No reports of dysuria or retention 01/09/2020 Patient is seen and evaluated in follow-up currently receiving hemodialysis. Patient is scheduled to undergo permanent dialysis catheter placement sometime today. No reports of chest pain or palpitations noted. Reports of chest pain. Patient continues to have intermittent nausea that is relieved with Zofran. Blood pressures continue to be slightly low in the 90s systolic. Potassium was 6.3 today and given a dose of Kayexalate. BUN is 106 and creatinine is 4.94 and is receiving hemodialysis as mentioned previously. Hemoglobin today is 7.5. Objective - Vital Signs Vital signs: Vital Signs Temp 97.9 F 01/10/20 04:00 Pulse 74 01/10/20 04:00 Resp 18 01/10/20 04:00 BP 106/67 01/10/20 04:00 Pulse Ox 100 01/10/20 04:00 Intake & Output 01/09/20 01/10/20 01/10/20 18:59 06:59 18:59 Intake Total 360 Output Total 2400 400 Balance -2039 Weight 82 kg 87.5 kg Intake: IV 50 Oral 310 Output: Urine 200 400 Hemodialysis 2200 Other: Voiding Method Indwelling Catheter Indwelling Catheter # Voids 0 - Exam Gen: This is a 79-year-old male sitting up in bed, awake, alert and oriented 3, well-developed, well-nourished. HEENT: Head is atraumatic, normocephalic. Pupils equal, round. Sclerae is anicteric. NECK: Supple. No JVD. No lymphadenopathy. No thyromegaly. LUNGS: Diminished breath sounds at the bases with a few scattered rhonchi noted. No intercostal retractions. HEART: S1, S2 are muffled ABDOMEN: Soft. Bowel sounds are present. No masses. No tenderness. EXTREMITIES: No pedal edema. No calf tenderness. NEUROLOGICAL: Patient is awake, alert and oriented x3. Cranial nerves 2 through 12 are grossly intact. - Labs CBC & Chem 7: 01/09/20 05:13 01/09/20 05:13 Labs: Abnormal Lab Results - Last 24 Hours (Table) 01/09/20 01/09/20 01/09/20 Range/Units 11:37 16:26 20:19 POC Glucose (mg/dL) 122 H 161 H 161 H (75-99) mg/dL Assessment and Plan Assessment: Congestive heart failure, acute exacerbation with acute on chronic systolic dysfunction, ejection fraction 45% with moderate mitral regurgitation, aortic stenosis Acute renal failure, possible acute on chronic with possible acute tubular necrosis with newly started hemodialysis Right-sided pleural effusion status post thoracentesis, possibly secondary to transudate is reaction secondary to congestive heart failure and renal failure Possible right lower lobe pneumonia, underlying with possible gram-negative Chronic atrial fibrillation Elevated troponin of undetermined etiology at the time of presentation 0.259 Diabetes mellitus type 2 with nephropathy Hypertension Hyperlipidemia Gait dysfunction History of coronary artery disease, coronary artery bypass grafting Chronic kidney disease stage IV History of normocytic anemia secondary to chronic renal disease history of degenerative joint disease History of coronary artery disease, stent Full code Recommendations and discussion: Recommend to continue current medications, management, and symptomatic treatment. Continue with hemodialysis again today as treatment was aborted due to hypotension and chest pain yesterday Multiple medical consultations following. Continue to monitor vital signs and labs closely and transfuse for hemoglobin less than 7. Continue with low potassium diet. Kayexalate was given for a potassium of 6.3 today. Will repeat a.m. labs. PT/OT to evaluate the patient. Case management and social work following for possible ECF placement for continued physical therapy for strength and mobility upon discharge. Further recommendations to follow. Possible discharge in 24-48 hours.
[2020-01-10 09:03] LABS: Anisocytosis Slight; Basophils % (A) 0 %; Eosinophils # (A) 0.2 k/uL (0-0.7); Eosinophils % (A) 2 %; HCT 21.4 % (39.0-53.0); Hypochromasia Moderate; Lymphocytes # (A) 0.5 k/uL (1.0-4.8); Lymphocytes % (A) 6 %; MCH 29.1 pg (25.0-35.0); MCHC 32.2 g/dL (31.0-37.0); MCV 90.3 fL (80.0-100.0); Mean Platelet Volume 7.8; Monocytes # (A) 0.8 k/uL (0-1.0); Monocytes % (A) 11 %; Neutrophils # (A) 5.7 k/uL (1.3-7.7); Neutrophils % (A) 78 %; Platelet Count 160 k/uL (150-450); RBC 2.36 m/uL (4.30-5.90); RDW 17.6 % (11.5-15.5); WBC 7.4 k/uL (3.8-10.6)
[2020-01-10 09:10] LABS: Potassium 6.1 mmol/L (3.5-5.1)
[2020-01-10 09:12] LABS: HGB 6.9 gm/dL (13.0-17.5)
[2020-01-10] MEDS ORDERED: SODIUM POLYSTYRENE SULFONATE 15 GM/60 ML BOTTLE PO STA (09:12)
[2020-01-10] MEDS ORDERED: DESMOPRESSIN ACETATE 0.3 MCG in SODIUM CHLORIDE 0.9% 50 ML IVPB ONE (10:45)
[2020-01-10 11:14] LABS: Glucose,Whole Blood 71 mg/dL (75-99)
[2020-01-10] MEDS ORDERED: DESMOPRESSIN ACETATE 26 MCG in SODIUM CHLORIDE 0.9% 50 ML IV ONE (11:15)
--- NOTE | 2020-01-10 11:28 | P.PN ---
Subjective Progress Note Date: 01/10/20 Principal diagnosis: Acute exacerbation of CHF 79-year-old male patient who came into the emergency department complaining of worsening shortness of breath. He denied having any significant cough or sputum production. Denied having any sick contacts including exposure to COVID 19. He was however getting more short of breath and addition to that he was coughing out some thick sputum. Denied having any chest pain. No nausea. No vomiting. No abdominal pain. He has multiple medical problems and comorbidities in summary, the patient has history of chronic kidney disease stage 3-4, coronary artery disease with previous bypass surgery that was done in December 2018, diabet es mellitus with history of diabetic nephropathy, hypertension, hyperlipidemia, chronic atrial fibrillation and chronic congestion heart failure. His workup in emergency department revealed the following He had a chest x-ray that showed better pleural effusion in addition to a right lower lobe consolidation. EKG showed no acute ST segment elevation or depression. There was a right bundle branch block pattern with a sinus rhythm His blood work showed an acute on top of chronic kidney injury. His creatinine was up to 8.3 with a potassium level of 5.4 in the sodium level [id number]. Note that his baseline creatinine was as high as 2.4. He did have some mild troponin elevation with levels being at 0.08, 0.11 and 0.25 respectively His occult stool was also positive His blood gases showed metabolic acidosis with a pH of 7.11 and a pCO2 of 22 and pO2 of 118 The patient was seen in intensive care unit. Despite his metabolic acidosis, the patient was awake and alert and following commands and answering course appropriately. Clinically , he was quite dry including grasses mucous membranes without any significant edema in lower extremities bilaterally. He was given IV fluids and recommended giving another liter of bolus and maintaining him on a bicarb infusion with D5 and 150 mEq of sodium bicarbonate to be relatively 5 mL an hour. He was started on broad-spectrum antibiotics. He was given accommodation Rocephin and Zithromax. I held his diuretics for now. His echocardiogram from previous evaluations have shown an ejection fraction of 40- 45% and his last cardiac catheterization was done in November 2018 showing GONZALEZ to LAD, saphenous vein graft to diagonal branch and acute marginal branch and left PDA. He had essentially nonocclusive disease. He has mild aortic stenosis and moderate mitral regurgitation. On 12/28/2019, the patient is being seen for a follow-up in the intensive care unit. Note that the patient was being treated for right lower lobe pneumonia/bilateral pneumonia and the patient was given a broad-spectrum antibiotic coverage. He was also in acute on chronic kidney injury and the patient was resuscitated IV fluids. On today's evaluation, the patient is quite comfortable and he is still on room air oxygen. His chest x-ray from today shows a 15th 20% pneumothorax on the right. Note that this was a spontaneous pneumothorax and the patient did not have any fall, trauma, or any other surgical procedures done on the right side of the chest. The patient is on a D5 and 150 mg of bicarb infusion rate of 75 mL's an hour. Urine output is in order of 30 mL an hour. The patient remains in atrial fibrillation with a controlled rate. The white cell count is at 7.8 with hemoglobin 8.5. White cell count is improved. Hemoglobin dropped however this was essentially a adequate study for now nontender the previous value was hemoconcentrated. The patient's BUN is on 279. The patient's creatinine is down to 7.9. The patient's serum bicarbs up to 35. I added also normal saline at 75 an hour. The patient me what is still on a broad-spectrum antibiotic coverage utilizing a combination of Rocephin and Zithromax. He is afebrile. I decided not to put any chest tube on the right side as the patient is quite comfortable and there is no evidence of any tension. Nevertheless, I decided to obtain a follow-up chest x-ray at around noontime. This will be needed to monitor the right-sided pneumothorax. On 12/29/2019, patient is being seen for a follow-up. The patient has bilateral pneumonia, respiratory failure, right-sided pneumothorax which has remained stable. The patient has been on room air oxygen. He continues to be on IV f luid was D5 water and 150 mEq of sodium bicarbonate running at 75 mL an hour in addition to a normal saline running at 75 Christy hour. Renal function continues to improve. Creatinine continues to improve. The patient remains on a combination of Rocephin and Zithromax regarding the right lower lobe pneumonia. Cultures of been negative thus far. Nephrotic syndrome the case regarding the acute kidney injury. Today's white cell count is at 7.2. Hemoglobin stable at 9.2. BUN is still elevated at 168 with a creatinine of 7.3 although this is improved compared to yesterday. The neck fluid balance has been +2.9 L 40 yesterday and +3.2 L over the past shift. Nephrology is on the case. Based on the persistent abnormality in the right lower lung area, I proceeded with a CAT scan of the chest and the CAT scan showed a 20% pneumothorax on the right, moderate to large bilateral pleural effusion with perihilar and basilar infiltrates and a masslike infiltration in the left lower lobe. Discussed the findings with interventional radiology. May consider a pigtail catheter drain the fluid and the pneumothorax and regular chest tube. On 12/30/2019 the patient is being seen for a follow-up. I performed a thoracentesis on this patient yesterday. A total of 900 mL of pleural fluid was aspirated. The right-sided pneumothorax was also removed. There was obvious decrease in size of the right-sided pneumothorax and the fluid analysis came back as transudate consistent with CHF as the patient had low LDH and low protein in the pleural fluid. This morning the patient's pulse ox 98% on room air. The patient was on a bicarb infusion rate of 80 mL an hour. His serum bicarb is up to 26 and the patient will be taken of the sodium bicarb and be placed on normal saline. The neck fluid balance has been +3.2 L over the past 24 hours. Chest x-ray findings show a small right apical pneumothorax, there is bilateral basilar airspace disease and there is also an ongoing left-sided pleur al effusion. The patient otherwise is improving in terms of his renal function. Creatinine slowly improving and the BUN is down to 160 in the creatinine is down to 6.8. Rest of the electrodes are all within normal limits. Calcium level was at 5.5 and the patient was given IV calcium replacement. White cell count is 9.1. Hemoglobin is at 8.7. The antibiotic coverage remains a combination of Rocephin and Zithromax. No other changes and antibiotic coverage was done for the time being. The pro calcitonin level was 0.51. On 12/31/2019, the patient is looking well and has no specific complaints. Renal function continues to be impaired. Nephrology was considering dialysis, however, based on the ongoing improvement in urine output, dialysis will not be down we'll continue to monitor the patient's renal function. I am still monitoring the patient's respiratory status. The patient remains on broad- spectrum antibiotics. We treated him for a lower lobe pneumonia bilateral, however, based on further evaluations, the patient seems to be having more so pleural effusions. I performed a right-sided thoracentesis evacuating the right-sided pneumothorax and the right-sided pleural effusion. The fluid was a transudate. There is still some residual right-sided pneumothorax on today's chest x-ray. The patient is afebrile. The patient is producing adequate amount of urine output. He remains on the same antibiotic coverage. He is still in a positive fluid balance of 365 mL over the past 24 hours. His BN is at 148. Creatinine is at 6.8. No significant electrolyte disturbances. The white cell count is at 8 with a hemoglobin of 8.3. Reevaluated today on 01/01/20, patient remains in the ICU, he is on room air with O2 saturation in 94%. His IV fluid is at 100 mL/h, and I cut it down to KVO. Patient seems to be doing well since he had his right sided thoracentesis, the fluid turned out to be transudative in nature, and not extubated. Hence I have a feeling that this is all related to acute systolic congestive heart failure rather than pneumonia and parapneumonic effusion. Again the fluid was transudate of and speaks in favor of cardiac etiology of his failure rather than pulmonary etiology. Nonetheless, patient remains empirically on antibiotics coverage. Underlying pneumonia is not entirely ruled out, but at this point I feel it is less likely. Labs today showed WBC count of 8.9 hemoglobin is 7.9. Index was abnormal renal profile remains poor with BUN of 144 creatinine 6.49 minimal improvement compared to yesterday's labs. Clinically however the mallory morris is feeling better, breathing easier, and he is on room air at 94% SaO2. Reevaluated today on 01/02/20, patient ICU, he is presently on room air, he feels generally weak, tired, he is negative fluid balance over the last 24 hours by 125 ML. Renal functioning seems to be worsening. Patient remains in atrial flutter however rate is 70 beats per minutes. Continues to have fine crackles at the bases. And chest x-ray is suggestive of mild interstitial edema and small tiny pleural effusions. Discussed his condition with nephrology, and considering his renal status, patient is being considered for hemodialysis today. Patient is hemodynamically stable. But again he feels extremely weak a nd tired. Renal profile is worse with a BUN of 137 creatinine 6.28. CBC showed WBC count of 8.6 hemoglobin is 8. Reevaluated today on 01/03/20, patient remains in the ICU, doing relatively well, improved compared to yesterday, not feeling as weak. Underwent hemodialysis yesterday, his urine output is about 3 0 mL per hour. Oral intake is reasonable. Patient is feeling better to chest x-ray continues to show evidence of mild congestive heart failure changes. Patient is on room air, O2 satur ations 99%, he has no IV fluid, and I plan to transfer the patient out of the ICU to a cardiac bed on selective today. On 01/04/2020 patient seen in follow-up on selective care unit, his breathing co ntinues to improve, he remains on room air, with pulse ox of 100%, hemodynamically stable, his been afebrile. He was started on hemodialysis this admission, and yesterday he had a treatment would removal of 3.2 L of fluid. Today's labs have been reviewed, electrolytes are unremarkable, renal profile has improved, B1 is down to 82, creatinine is 4.45. Lung sounds are positive for diminished breath sounds at the bases. Patient has a little bit more awake and alert us stronger today. No nausea vomiting or diarrhea. He remains on oral Lasix as well, empiric antibiotics in the form of azithromycin, his blood cultures pleural fluid cultures and sputum have all been negative, pleural fluid analysis transudate of fluid consistent with CHF exacerbation. On 01/05/2020 patient seen on selective care unit, she is awake and alert, in no acute distress, he sitting up in the recliner, currently on room air, with a pulse of 97%. Breathing is comfortable, patient has hemodialysis yesterday with removal of 3.2 L of fluid, he is voiding, today's labs have been reviewed showing stable renal function, with BUN of 87 and creatinine of 4.74. His pro calcitonin was low, we discontinued patient's antibiotics, his been afebrile, no cough or congestion or phlegm production. His blood and pleural fluid sputum and urine cultures have been negative. No CBC today. No nausea vomiting or diarrhea. Doing well On 01/08/2020 patient seen in follow-up on selective care unit. He is resting in bed, she is morning, he is complaining of back pain, apparently today he was supposed to have dialysis but could not tolerate dialysis because of hypotension and systolic blood pressure in the 70s. He also complained of some chest pain during dialysis so the treatment had to be stopped. Currently on 2 L of oxygen, room air pulse ox earlier was 98%, his been, denies any worsening shortness of breath, today's labs have been reviewed showing fairly stable renal profile, with the BUN of 98, and creatinine of 4.58, sodium of 134, potassium is 5.8, the rest of electrolytes were within normal limits, white blood cell count was 7.8, hemoglobin is 7.6, he was given a unit of blood yesterday for hemoglobin of 6.8. No new chest x-rays today, no fever or chills, all cultures including sputum, pleural fluid in urine cultures have been negative. He has completed his antibiotics, he remains on oral Lasix 80 mg twice daily On 01/09/2020 patient seen in follow-up selective care unit, he is feeling bet ter today, no complaints of chest pain, no shortness of breath, he is receiving hemodialysis treatment right now, his blood pressure is stable today, 120/58, and the goal is to remove 2-3 L of fluid with hemodialysis he still has his right groin hemodialysis access vascular surgery will be consulted for placement of permanent dialysis catheter. No fever or chills, today's labs have been reviewed, showing white blood cell, 9.6, hemoglobin is 7.5, sodium is 133, potassium 6.3, B1 is 106 and creatinine is 4.94. he remains on IV Lasix at 80 mg every 12 hours, lung sounds are diminished at the bases, no rhonchi or wheezing. On 01/10/2020 patient seen in follow-up on selective care unit, seems lethargic on today's exam, but arousable, he is able to communicate, is having hemodialysis treatment right now, he is on 2 L of oxygen with pulse ox 100%, he has a emesis bucket in front of him, presumably for nausea, he is afebrile, yesterday 2 L of fluid was removed with hemodialysis, patient had 2200 mL removed with hemodialysis today. Blood pressure is stable today 106/67. His right groin temporary hemodialysis catheter was removed yesterday, and patient had right subclavian permanent catheter placed by vascular surgery. Hemoglobin 6.9 today, and patient will receive a unit of blood, sodium is 132, potassium is 6.1, respiratory/lites were unremarkable, BUN is 85 and creatinine is 4.73. Patient states he is just not feeling good today, sleepy, fatigued and tired. Today's chest x-ray shows stable fluid overload with central vascular congestion and fairly moderate-sized bilateral pleural effusions. Objective - Vital Signs Vital signs: Vital Signs Temp 97.9 F 01/10/20 04:00 Pulse 74 01/10/20 04:00 Resp 18 01/10/20 04:00 BP 106/67 01/10/20 04:00 Pulse Ox 100 01/10/20 04:00 Intake & Output 01/09/20 01/10/20 01/10/20 18:59 06:59 18:59 Intake Total 360 Output Total 2400 400 Balance -2039 -400 Weight 82 kg 87.5 kg Intake: IV 50 Oral 310 Output: Urine 200 400 Hemodialysis 2200 Other: Voiding Method Indwelling Catheter Indwelling Catheter # Voids 0 - Exam GENERAL EXAM: Alert, very pleasant, 79-year-old white male, appears to be chronically ill, appears weak, slightly more lethargic on today's exam but opens eyes and answers questions appropriately, on 2 L of oxygen, but no evidence of shortness of breath HEAD: Normocephalic/atraumatic. EYES: Normal reaction of pupils, equal size. Conjunctiva pink, sclera white. NOSE: Clear with pink turbinates. THROAT: No erythema or exudates. NECK: No masses, no JVD, no thyroid enlargement, no adenopathy. CHEST: No chest wall deformity. Symmetrical expansion. Right subclavian hemodialysis catheter LUNGS: Equal air entry with no crackles, wheeze, rhonchi or dullness. CVS: Regular rate and rhythm, normal S1 and S2, no gallops, no murmurs, no rubs ABDOMEN: Soft, nontender. No hepatosplenomegaly, normal bowel sounds, no guarding or rigidity. EXTREMITIES: No clubbing, no edema, no cyanosis, 2+ pulses and upper and lower extremities. Interval removal of the right groin temporary hemodialysis catheter, placement of a permanent hemodialysis access in the right subclavian area MUSCULOSKELETAL: Muscle strength and tone normal. SPINE: No scoliosis or deformity SKIN: No rashes CENTRAL NERVOUS SYSTEM: Alert and oriented -3. No focal deficits, tone is normal in all 4 extremities. PSYCHIATRIC: Alert and oriented -3. Appropriate affect. Intact judgment and insight. - Labs CBC & Chem 7: 01/10/20 08:03 01/10/20 08:03 Labs: Abnormal Lab Results - Last 24 Hours (Table) 01/09/20 01/09/20 01/09/20 Range/Units 11:37 16:26 20:19 RBC (4.30-5.90) m/uL Hgb (13.0-17.5) gm/dL Hct (39.0-53.0) % RDW (11.5-15.5) % Lymphocytes # (1.0-4.8) k/uL Sodium (137-145) mmol/L Potassium (3.5-5.1) mmol/L BUN (9-20) mg/dL Creatinine (0.66-1.25) mg/dL Glucose (74-99) mg/dL POC Glucose (mg/dL) 122 H 161 H 161 H (75-99) mg/dL Calcium (8.4-10.2) mg/dL 01/10/20 01/10/20 01/10/20 Range/Units 08:03 08:03 11:13 RBC 2.36 L (4.30-5.90) m/uL Hgb 6.9 L* (13.0-17.5) gm/dL Hct 21.4 L (39.0-53.0) % RDW 17.6 H (11.5-15.5) % Lymphocytes # 0.5 L (1.0-4.8) k/uL Sodium 132 L (137-145) mmol/L Potassium 6.1 H* (3.5-5.1) mmol/L BUN 85 H (9-20) mg/dL Creatinine 4.53 H (0.66-1.25) mg/dL Glucose 44 L* (74-99) mg/dL POC Glucose (mg/dL) 71 L (75-99) mg/dL Calcium 7.0 L (8.4-10.2) mg/dL Assessment and Plan Plan: Assessment: #1. Acute systolic congestive heart failure, ejection fraction is 45%, known to have moderate mitral regurgitation and aortic stenosis. #2. Right sided pleural effusion, transudative in nature based on the labs. This is cardiac in nature. Cytology on the fluid was also negative. #3. Type 2 diabetes with nephropathy. #4. Hypertension. #5. Dyslipidemia. #6. Coronary artery disease and previous CABG in December of 2018. #7. Acute on chronic kidney disease stage IV, requiring initiation of hemodialysis #8. Troponin leak #9. History of iron deficiency anemia and previous positive occult blood in the stools. #10. Hypotension today, possibly hypovolemic, hemodialysis treatment had to be stopped, improved, and today on 01/10/2020 patient is tolerating hemodialysis #11. Acute on chronic anemia, she will receive a unit of blood today on 01/10/2020 for hemoglobin of 6.9 Plan: We spoke to the patient about his wishes, patient is of sound mind, and makes his own medical decisions, he made it clear he does not want to be placed on mechanical ventilator does not want any aggressive or heroic measures. Continue supportive treatment, overall prognosis is extremely guarded. Patient continues on hemodialysis today's chest x-ray still shows central vascular congestion, and moderately sized bilateral pleural effusions. If patient continues to deteriorate recommend discussing palliative care and possible hospice I performed a history & physical examination of the patient and discussed their management with my nurse practitioner, Demetria Ramos. I reviewed the nurse practitioner's note and agree with the documented findings and plan of care. Lung sounds are positive for diminished breath sound at the bases. The findings and the impression was discussed with the patient. I attest to the documentation by the nurse practitioner. Time with Patient: Less than 30
[2020-01-10] MEDS: METOPROLOL TARTRATE 25 MG TAB PO SCH ×2 (11:42→19:50)
[2020-01-10] MEDS: FINASTERIDE 5 MG TAB PO SCH ×2 (11:43→12:01)
[2020-01-10] MEDS: FUROSEMIDE 10 MG/ML 10 ML VIAL IV SCH ×2 (12:00→19:50)
[2020-01-10] MEDS: AMMONIUM LACTATE 12% CREAM 140 GM TUBE TOPICAL SCH ×2 (12:00→20:18)
[2020-01-10] MEDS: PRAVASTATIN SODIUM 80 MG TAB PO SCH (12:01)
[2020-01-10] MEDS: PANTOPRAZOLE 40 MG TABLET PO SCH (12:01)
[2020-01-10] MEDS: CALCIUM CARBONATE 500 MG CHEWABLE PO SCH ×2 (12:02→19:49)
[2020-01-10] MEDS: FERROUS SULFATE 325 MG TAB PO SCH ×2 (12:03→19:50)
[2020-01-10] MEDS: TAMSULOSIN 0.4 MG CAP.ER.24H PO SCH ×2 (12:16→19:50)
[2020-01-10 12:20] LABS: Anisocytosis Slight; HCT 23.3 % (39.0-53.0); HGB 7.3 gm/dL (13.0-17.5); Hypochromasia Slight; MCH 28.2 pg (25.0-35.0); MCHC 31.3 g/dL (31.0-37.0); MCV 90.1 fL (80.0-100.0); Mean Platelet Volume 7.4; Platelet Count 140 k/uL (150-450); RBC 2.59 m/uL (4.30-5.90); RDW 17.9 % (11.5-15.5); WBC 6.1 k/uL (3.8-10.6)
[2020-01-10 12:39] LABS: Calcium 7.5 mg/dL (8.4-10.2); Potassium 4.6 mmol/L (3.5-5.1)
--- NOTE | 2020-01-10 14:12 | PN ---
PROGRESS NOTE Patient is seen for followup for acute kidney injury on top of chronic kidney disease. Currently patient is hemodialysis dependent. He is being dialyzed on a daily basis for ongoing issues with volume overload as well as symptoms of uremia and hyperkalemia. Currently, patient is seen on dialysis. He is tolerating his treatment well. He denies any significant complaints. There has been bleeding from his IJ PermCath site. This morning blood pressure was 121/55, heart rate 60 per minute, patient is afebrile. Examination shows edema 2+ bilateral lower extremities. There is a pressure dressing on the IJ catheter. Patient has an indwelling Torres catheter with good amount of clear urine. SEED PACKER exam grossly intact. Abdomen is soft, nontender. LABS: Show sodium 132, potassium 6.1, BUN 85, serum creatinine 4.53, hemoglobin was 6.9 g/dL today. ASSESSMENT: 1. Acute kidney injury currently hemodialysis dependent. We will maintain patient on daily dialysis for now. 2. Hyperkalemia associated with most likely underlying gastrointestinal bleed as patient's hemoglobin has dropped significantly as well. I doubt that this is all from the IJ catheter oozing. We will check a stool for occult blood. If it has not been done yet. It was initially positive on 12/27/2019. Patient may need EGD. 3. Volume overload, maintained UF about 2-3 L daily. 4. Chronic kidney disease stage IV. Previous creatinine around 2 mg/dL secondary to diabetic nephropathy. 5. Oozing from the catheter site. I will give a dose of DDAVP. 6. 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 7. Generalized debility. 8. Pneumonia status post antibiotics, currently status post antibiotics. PLAN: Repeat dialysis in a.m. Consider GI consult for EGD given the significant drop in hemoglobin, transfuse 1 unit packed RBCs and we will give a dose of DDAVP for the bleeding. MMODL / IJN: [id number] /
--- NOTE | 2020-01-10 14:56 | P.PN ---
Subjective Progress Note Date: 01/10/20 Principal diagnosis: This is a 79-year-old male who was recently admitted with congestive heart failure acute exacerbation, acute on chronic systolic dysfunction also had mitral regurgitation and aortic stenosis noted and is being closely monitored. Patient also started with hemodialysis new-onset. Multiple medical consultations following closely. PT/OT to evaluate the patient for possible ECF rehab for continued physical therapy treatment for strength and mobility. Nasreen lee was receiving hemodialysis today and stated he was having some chest pain and heart rate was noted to be in the 30s to 50s along with some hypotension and hemodialysis was stopped. Patient then stated he was having no chest pain just some nausea with severe back pain and requesting to sit up in the chair. Patient was given Zofran with relief of nausea. Hemoglobin today was 7.6, sodium 134, potassium 5.8, BUN 98, and current creatinine 4.58. Will attempt dialysis again tomorrow. Nephrology is following closely. review of systems: Constitutional: No reports of fevers or chills Cardiovascular: Reported chest pain that has resolved, no reports of palpitations Respiratory: No reports of shortness of breath or cough GI: Reported mild nausea that is resolved, no reports of vomiting or diarrhea : No reports of dysuria or retention 01/09/2020 Patient is seen and evaluated in follow-up currently receiving hemodialysis. Patient is scheduled to undergo permanent dialysis catheter placement sometime today. No reports of chest pain or palpitations noted. Reports of chest pain. Patient continues to have intermittent nausea that is relieved with Zofran. Blood pressures continue to be slightly low in the 90s systolic. Potassium was 6.3 today and given a dose of Kayexalate. BUN is 106 and creatinine is 4.94 and is receiving hemodialysis as mentioned previously. Hemoglobin today is 7.5. 01/10/2020 Patient is seen and evaluated in follow-up today and currently receiving hemo dialysis. Patient denies any nausea or vomiting today. No reports of chest pain, shortness of breath, or palpitations. Discussed with the patient about CODE STATUS and he wishes to be a no code. Patient did receive a permanent dialysis catheter with nursing staff reported some oozing of the site and will be given a dose of DDAVP. Nephrology following closely. Potassium today prior to dialysis was 6.1 with a hemoglobin of 6.9. Repeat labs after dialysis shows potassium of 4.6, sodium is 134, UN is 50, creatinine is 2.65, and hemoglobin is 7.3 requiring no transfusion at this time. Platelets continue to be low at 140. Currently no reports of chest pain, shortness of breath, or palpitations. Patient is afebrile. Case management and social work following to assist with discharge planning needs as patient will likely go to an ECF once stable and discharged. Objective - Vital Signs Vital signs: Vital Signs Temp 98.1 F 01/10/20 12:14 Pulse 60 01/10/20 12:14 Resp 18 01/10/20 04:00 BP 121/55 01/10/20 12:14 Pulse Ox 100 01/10/20 04:00 Intake & Output 01/09/20 01/10/20 01/10/20 18:59 06:59 18:59 Intake Total 360 Output Total 2400 400 3000 Balance -2040 -400 -3000 Weight 82 kg 87.5 kg Intake: IV 50 Oral 310 Output: Urine 200 400 Hemodialysis 2200 3000 Other: Voiding Method Indwelling Catheter Indwelling Catheter # Voids 0 - Exam Gen: This is a 79-year-old male lying up in bed, awake, alert and oriented 3, well-developed, well-nourished. Lethargic HEENT: Head is atraumatic, normocephalic. Pupils equal, round. Sclerae is anicteric. NECK: Supple. No JVD. No lymphadenopathy. No thyromegaly. LUNGS: Diminished breath sounds at the bases with a few scattered rhonchi noted. No intercostal retractions. HEART: S1, S2 are muffled ABDOMEN: Soft. Bowel sounds are present. No masses. No tenderness. EXTREMITIES: No pedal edema. No calf tenderness. NEUROLOGICAL: Patient is awake, alert and oriented x3. Cranial nerves 2 through 12 are grossly intact. - Labs CBC & Chem 7: 01/10/20 12:08 01/10/20 12:08 Labs: Abnormal Lab Results - Last 24 Hours (Table) 01/09/20 01/09/20 01/10/20 Range/Units 16:26 20:19 08:03 RBC 2.36 L (4.30-5.90) m/uL Hgb 6.9 L* (13.0-17.5) gm/dL Hct 21.4 L (39.0-53.0) % RDW 17.6 H (11.5-15.5) % Plt Count (150-450) k/uL Lymphocytes # 0.5 L (1.0-4.8) k/uL Sodium (137-145) mmol/L Potassium (3.5-5.1) mmol/L BUN (9-20) mg/dL Creatinine (0.66-1.25) mg/dL Glucose (74-99) mg/dL POC Glucose (mg/dL) 161 H 161 H (75-99) mg/dL Calcium (8.4-10.2) mg/dL Crossmatch 01/10/20 01/10/20 01/10/20 Range/Units 08:03 09:33 11:13 RBC (4.30-5.90) m/uL Hgb (13.0-17.5) gm/dL Hct (39.0-53.0) % RDW (11.5-15.5) % Plt Count (150-450) k/uL Lymphocytes # (1.0-4.8) k/uL Sodium 132 L (137-145) mmol/L Potassium 6.1 H* (3.5-5.1) mmol/L BUN 85 H (9-20) mg/dL Creatinine 4.53 H (0.66-1.25) mg/dL Glucose 44 L* (74-99) mg/dL POC Glucose (mg/dL) 71 L (75-99) mg/dL Calcium 7.0 L (8.4-10.2) mg/dL Crossmatch See Detail 01/10/20 01/10/20 Range/Units 12:08 12:08 RBC 2.59 L (4.30-5.90) m/uL Hgb 7.3 L (13.0-17.5) gm/dL Hct 23.3 L (39.0-53.0) % RDW 17.9 H (11.5-15.5) % Plt Count 140 L (150-450) k/uL Lymphocytes # (1.0-4.8) k/uL Sodium 134 L (137-145) mmol/L Potassium (3.5-5.1) mmol/L BUN 50 H (9-20) mg/dL Creatinine 2.65 H (0.66-1.25) mg/dL Glucose 50 L (74-99) mg/dL POC Glucose (mg/dL) (75-99) mg/dL Calcium 7.5 L (8.4-10.2) mg/dL Crossmatch Assessment and Plan Assessment: Congestive heart failure, acute exacerbation with acute on chronic systolic dysfunction, ejection fraction 45% with moderate mitral regurgitation, aortic stenosis Acute renal failure, possible acute on chronic with possible acute tubular necrosis with newly started hemodialysis Right-sided pleural effusion status post thoracentesis, possibly secondary to transudate is reaction secondary to congestive heart failure and renal failure Possible right lower lobe pneumonia, underlying with possible gram-negative Chronic atrial fibrillation Elevated troponin of undetermined etiology at the time of presentation 0.259 Diabetes mellitus type 2 with nephropathy Hypertension Hyperlipidemia Gait dysfunction History of coronary artery disease, coronary artery bypass grafting Chronic kidney disease stage IV History of normocytic anemia secondary to chronic renal disease history of degenerative joint disease History of coronary artery disease, stent Full code Recommendations and discussion: Recommend to continue current medications, management, and symptomatic treatment. Continue with hemodialysis again today. Multiple medical consultations following. Continue to monitor vital signs and labs closely and transfuse for hemoglobin less than 7. Continue with low potassium diet. Will r epeat a.m. labs. PT/OT to evaluate the patient. Case management and social work following for possible ECF placement for continued physical therapy for strength and mobility upon discharge. Further recommendations to follow. Possible discharge in 24-48 hours.
[2020-01-10 16:26] LABS: Glucose,Whole Blood 127 mg/dL (75-99)
[2020-01-10] MEDS: MELATONIN 3 MG TABLET PO SCH (19:50)
[2020-01-10 20:10] LABS: Glucose,Whole Blood 232 mg/dL (75-99)
[2020-01-10] MEDS: INSULIN DETEMIR (LEVEMIR) 100 UNIT/ML SYR SQ SCH (20:18)
[2020-01-11 06:13] LABS: Glucose,Whole Blood 62 mg/dL (75-99)
[2020-01-11 06:29] LABS: Glucose,Whole Blood 70 mg/dL (75-99)
[2020-01-11] MEDS: ASCORBIC ACID 500 MG TAB PO SCH ×2 (06:44→20:46)
[2020-01-11] MEDS: CALCIUM ACETATE 667 MG TAB PO SCH ×3 (06:44→20:47)
[2020-01-11] MEDS: INSULIN ASPART (NovoLOG) 100 UNIT/ML VIAL SQ SCH ×3 (06:46→20:46)
[2020-01-11 07:48] LABS: Anisocytosis Slight; Basophils % (A) 0 %; Eosinophils # (A) 0.1 k/uL (0-0.7); Eosinophils % (A) 2 %; HCT 22.6 % (39.0-53.0); Hypochromasia Marked; Lymphocytes # (A) 0.3 k/uL (1.0-4.8); Lymphocytes % (A) 5 %; MCH 28.8 pg (25.0-35.0); MCHC 31.2 g/dL (31.0-37.0); MCV 92.4 fL (80.0-100.0); Macrocytosis Slight; Mean Platelet Volume 7.7; Monocytes # (A) 0.6 k/uL (0-1.0); Monocytes % (A) 9 %; Neutrophils # (A) 5.9 k/uL (1.3-7.7); Neutrophils % (A) 83 %; Platelet Count 152 k/uL (150-450); RBC 2.45 m/uL (4.30-5.90); RDW 18.1 % (11.5-15.5); WBC 7.1 k/uL (3.8-10.6)
[2020-01-11 07:55] LABS: Calcium 7.4 mg/dL (8.4-10.2); Potassium 5.5 mmol/L (3.5-5.1)
--- NOTE | 2020-01-11 11:07 | P.PN ---
Subjective Progress Note Date: 01/11/20 Principal diagnosis: Acute exacerbation of CHF 79-year-old male patient who came into the emergency department complaining of worsening shortness of breath. He denied having any significant cough or sputum production. Denied having any sick contacts including exposure to COVID 19. He was however getting more short of breath and addition to that he was coughing out some thick sputum. Denied having any chest pain. No nausea. No vomiting. No abdominal pain. He has multiple medical problems and comorbidities in summary, the patient has history of chronic kidney disease stage 3-4, coronary artery disease with previous bypass surgery that was done in December 2018, diabet es mellitus with history of diabetic nephropathy, hypertension, hyperlipidemia, chronic atrial fibrillation and chronic congestion heart failure. His workup in emergency department revealed the following He had a chest x-ray that showed better pleural effusion in addition to a right lower lobe consolidation. EKG showed no acute ST segment elevation or depression. There was a right bundle branch block pattern with a sinus rhythm His blood work showed an acute on top of chronic kidney injury. His creatinine was up to 8.3 with a potassium level of 5.4 in the sodium level [id number]. Note that his baseline creatinine was as high as 2.4. He did have some mild troponin elevation with levels being at 0.08, 0.11 and 0.25 respectively His occult stool was also positive His blood gases showed metabolic acidosis with a pH of 7.11 and a pCO2 of 22 and pO2 of 118 The patient was seen in intensive care unit. Despite his metabolic acidosis, the patient was awake and alert and following commands and answering course appropriately. Clinically , he was quite dry including grasses mucous membranes without any significant edema in lower extremities bilaterally. He was given IV fluids and recommended giving another liter of bolus and maintaining him on a bicarb infusion with D5 and 150 mEq of sodium bicarbonate to be relatively 5 mL an hour. He was started on broad-spectrum antibiotics. He was given accommodation Rocephin and Zithromax. I held his diuretics for now. His echocardiogram from previous evaluations have shown an ejection fraction of 40- 45% and his last cardiac catheterization was done in November 2018 showing GONZALEZ to LAD, saphenous vein graft to diagonal branch and acute marginal branch and left PDA. He had essentially nonocclusive disease. He has mild aortic stenosis and moderate mitral regurgitation. On 12/28/2019, the patient is being seen for a follow-up in the intensive care unit. Note that the patient was being treated for right lower lobe pneumonia/bilateral pneumonia and the patient was given a broad-spectrum antibiotic coverage. He was also in acute on chronic kidney injury and the patient was resuscitated IV fluids. On today's evaluation, the patient is quite comfortable and he is still on room air oxygen. His chest x-ray from today shows a 15th 20% pneumothorax on the right. Note that this was a spontaneous pneumothorax and the patient did not have any fall, trauma, or any other surgical procedures done on the right side of the chest. The patient is on a D5 and 150 mg of bicarb infusion rate of 75 mL's an hour. Urine output is in order of 30 mL an hour. The patient remains in atrial fibrillation with a controlled rate. The white cell count is at 7.8 with hemoglobin 8.5. White cell count is improved. Hemoglobin dropped however this was essentially a adequate study for now nontender the previous value was hemoconcentrated. The patient's BUN is on 279. The patient's creatinine is down to 7.9. The patient's serum bicarbs up to 35. I added also normal saline at 75 an hour. The patient me what is still on a broad-spectrum antibiotic coverage utilizing a combination of Rocephin and Zithromax. He is afebrile. I decided not to put any chest tube on the right side as the patient is quite comfortable and there is no evidence of any tension. Nevertheless, I decided to obtain a follow-up chest x-ray at around noontime. This will be needed to monitor the right-sided pneumothorax. On 12/29/2019, patient is being seen for a follow-up. The patient has bilateral pneumonia, respiratory failure, right-sided pneumothorax which has remained stable. The patient has been on room air oxygen. He continues to be on IV f luid was D5 water and 150 mEq of sodium bicarbonate running at 75 mL an hour in addition to a normal saline running at 75 Christy hour. Renal function continues to improve. Creatinine continues to improve. The patient remains on a combination of Rocephin and Zithromax regarding the right lower lobe pneumonia. Cultures of been negative thus far. Nephrotic syndrome the case regarding the acute kidney injury. Today's white cell count is at 7.2. Hemoglobin stable at 9.2. BUN is still elevated at 168 with a creatinine of 7.3 although this is improved compared to yesterday. The neck fluid balance has been +2.9 L 40 yesterday and +3.2 L over the past shift. Nephrology is on the case. Based on the persistent abnormality in the right lower lung area, I proceeded with a CAT scan of the chest and the CAT scan showed a 20% pneumothorax on the right, moderate to large bilateral pleural effusion with perihilar and basilar infiltrates and a masslike infiltration in the left lower lobe. Discussed the findings with interventional radiology. May consider a pigtail catheter drain the fluid and the pneumothorax and regular chest tube. On 12/30/2019 the patient is being seen for a follow-up. I performed a thoracentesis on this patient yesterday. A total of 900 mL of pleural fluid was aspirated. The right-sided pneumothorax was also removed. There was obvious decrease in size of the right-sided pneumothorax and the fluid analysis came back as transudate consistent with CHF as the patient had low LDH and low protein in the pleural fluid. This morning the patient's pulse ox 98% on room air. The patient was on a bicarb infusion rate of 80 mL an hour. His serum bicarb is up to 26 and the patient will be taken of the sodium bicarb and be placed on normal saline. The neck fluid balance has been +3.2 L over the past 24 hours. Chest x-ray findings show a small right apical pneumothorax, there is bilateral basilar airspace disease and there is also an ongoing left-sided pleur al effusion. The patient otherwise is improving in terms of his renal function. Creatinine slowly improving and the BUN is down to 160 in the creatinine is down to 6.8. Rest of the electrodes are all within normal limits. Calcium level was at 5.5 and the patient was given IV calcium replacement. White cell count is 9.1. Hemoglobin is at 8.7. The antibiotic coverage remains a combination of Rocephin and Zithromax. No other changes and antibiotic coverage was done for the time being. The pro calcitonin level was 0.51. On 12/31/2019, the patient is looking well and has no specific complaints. Renal function continues to be impaired. Nephrology was considering dialysis, however, based on the ongoing improvement in urine output, dialysis will not be down we'll continue to monitor the patient's renal function. I am still monitoring the patient's respiratory status. The patient remains on broad- spectrum antibiotics. We treated him for a lower lobe pneumonia bilateral, however, based on further evaluations, the patient seems to be having more so pleural effusions. I performed a right-sided thoracentesis evacuating the right-sided pneumothorax and the right-sided pleural effusion. The fluid was a transudate. There is still some residual right-sided pneumothorax on today's chest x-ray. The patient is afebrile. The patient is producing adequate amount of urine output. He remains on the same antibiotic coverage. He is still in a positive fluid balance of 365 mL over the past 24 hours. His BN is at 148. Creatinine is at 6.8. No significant electrolyte disturbances. The white cell count is at 8 with a hemoglobin of 8.3. Reevaluated today on 01/01/20, patient remains in the ICU, he is on room air with O2 saturation in 94%. His IV fluid is at 100 mL/h, and I cut it down to KVO. Patient seems to be doing well since he had his right sided thoracentesis, the fluid turned out to be transudative in nature, and not extubated. Hence I have a feeling that this is all related to acute systolic congestive heart failure rather than pneumonia and parapneumonic effusion. Again the fluid was transudate of and speaks in favor of cardiac etiology of his failure rather than pulmonary etiology. Nonetheless, patient remains empirically on antibiotics coverage. Underlying pneumonia is not entirely ruled out, but at this point I feel it is less likely. Labs today showed WBC count of 8.9 hemoglobin is 7.9. Index was abnormal renal profile remains poor with BUN of 144 creatinine 6.49 minimal improvement compared to yesterday's labs. Clinically however the mallory morris is feeling better, breathing easier, and he is on room air at 94% SaO2. Reevaluated today on 01/02/20, patient ICU, he is presently on room air, he feels generally weak, tired, he is negative fluid balance over the last 24 hours by 125 ML. Renal functioning seems to be worsening. Patient remains in atrial flutter however rate is 70 beats per minutes. Continues to have fine crackles at the bases. And chest x-ray is suggestive of mild interstitial edema and small tiny pleural effusions. Discussed his condition with nephrology, and considering his renal status, patient is being considered for hemodialysis today. Patient is hemodynamically stable. But again he feels extremely weak a nd tired. Renal profile is worse with a BUN of 137 creatinine 6.28. CBC showed WBC count of 8.6 hemoglobin is 8. Reevaluated today on 01/03/20, patient remains in the ICU, doing relatively well, improved compared to yesterday, not feeling as weak. Underwent hemodialysis yesterday, his urine output is about 3 0 mL per hour. Oral intake is reasonable. Patient is feeling better to chest x-ray continues to show evidence of mild congestive heart failure changes. Patient is on room air, O2 satur ations 99%, he has no IV fluid, and I plan to transfer the patient out of the ICU to a cardiac bed on [facility] today. On 01/04/2020 patient seen in follow-up on [facility] care unit, his breathing co ntinues to improve, he remains on room air, with pulse ox of 100%, hemodynamically stable, his been afebrile. He was started on hemodialysis this admission, and yesterday he had a treatment would removal of 3.2 L of fluid. Today's labs have been reviewed, electrolytes are unremarkable, renal profile has improved, B1 is down to 82, creatinine is 4.45. Lung sounds are positive for diminished breath sounds at the bases. Patient has a little bit more awake and alert us stronger today. No nausea vomiting or diarrhea. He remains on oral Lasix as well, empiric antibiotics in the form of azithromycin, his blood cultures pleural fluid cultures and sputum have all been negative, pleural fluid analysis transudate of fluid consistent with CHF exacerbation. On 01/05/2020 patient seen on [facility] care unit, she is awake and alert, in no acute distress, he sitting up in the recliner, currently on room air, with a pulse of 97%. Breathing is comfortable, patient has hemodialysis yesterday with removal of 3.2 L of fluid, he is voiding, today's labs have been reviewed showing stable renal function, with BUN of 87 and creatinine of 4.74. His pro calcitonin was low, we discontinued patient's antibiotics, his been afebrile, no cough or congestion or phlegm production. His blood and pleural fluid sputum and urine cultures have been negative. No CBC today. No nausea vomiting or diarrhea. Doing well On 01/08/2020 patient seen in follow-up on [facility] care unit. He is resting in bed, she is morning, he is complaining of back pain, apparently today he was supposed to have dialysis but could not tolerate dialysis because of hypotension and systolic blood pressure in the 70s. He also complained of some chest pain during dialysis so the treatment had to be stopped. Currently on 2 L of oxygen, room air pulse ox earlier was 98%, his been, denies any worsening shortness of breath, today's labs have been reviewed showing fairly stable renal profile, with the BUN of 98, and creatinine of 4.58, sodium of 134, potassium is 5.8, the rest of electrolytes were within normal limits, white blood cell count was 7.8, hemoglobin is 7.6, he was given a unit of blood yesterday for hemoglobin of 6.8. No new chest x-rays today, no fever or chills, all cultures including sputum, pleural fluid in urine cultures have been negative. He has completed his antibiotics, he remains on oral Lasix 80 mg twice daily On 01/09/2020 patient seen in follow-up selective care unit, he is feeling bet ter today, no complaints of chest pain, no shortness of breath, he is receiving hemodialysis treatment right now, his blood pressure is stable today, 120/58, and the goal is to remove 2-3 L of fluid with hemodialysis he still has his right groin hemodialysis access vascular surgery will be consulted for placement of permanent dialysis catheter. No fever or chills, today's labs have been reviewed, showing white blood cell, 9.6, hemoglobin is 7.5, sodium is 133, potassium 6.3, B1 is 106 and creatinine is 4.94. he remains on IV Lasix at 80 mg every 12 hours, lung sounds are diminished at the bases, no rhonchi or wheezing. On 01/10/2020 patient seen in follow-up on [facility] care unit, seems lethargic on today's exam, but arousable, he is able to communicate, is having hemodialysis treatment right now, he is on 2 L of oxygen with pulse ox 100%, he has a emesis bucket in front of him, presumably for nausea, he is afebrile, yesterday 2 L of fluid was removed with hemodialysis, patient had 2200 mL removed with hemodialysis today. Blood pressure is stable today 106/67. His right groin temporary hemodialysis catheter was removed yesterday, and patient had right subclavian permanent catheter placed by vascular surgery. Hemoglobin 6.9 today, and patient will receive a unit of blood, sodium is 132, potassium is 6.1, respiratory/lites were unremarkable, BUN is 85 and creatinine is 4.73. Patient states he is just not feeling good today, sleepy, fatigued and tired. Today's chest x-ray shows stable fluid overload with central vascular congestion and fairly moderate-sized bilateral pleural effusions. On 01/11/2020 patient seen in follow-up on [facility] care unit, a bit more awake today, conversant, denies shortness of breath, he is on 2 L of oxygen and the pulse ox of 95%, hemodynamically stable, no hemodialysis treatment is planned for today, he remains on Lasix, and patient is producing urine, overall he is in -3280 mL fluid balance over the last 24 hours. Patient has a very poor appetite, apparently he was hypoglycemic this morning in requiring orange juice. Repeat blood sugar was 109. He states he just does not feel good, but denies any specific complaints. His labs today show white blood cell, 7.1, hemoglobin 7.0, platelet count of 152, sodium is 134, potassium is 5.5, chloride is 100, BUN is 58 creatinine is 3.71. All his cultures have been negative, patient has had no fever or chills, we discontinued his antibiotics several days ago. Objective - Vital Signs Vital signs: Vital Signs Temp 98.2 F 01/11/20 04:32 Pulse 80 01/11/20 08:00 Resp 18 01/11/20 08:00 BP 93/52 01/11/20 04:32 Pulse Ox 95 01/11/20 04:32 Intake & Output 01/10/20 01/11/20 01/11/20 18:59 06:59 18:59 Intake Total 120 Output Total 3000 400 0 Balance -2880 -400 0 Weight 81 kg Intake: Oral 120 Output: Urine 400 Stool 0 Hemodialysis 3000 Other: Voiding Method Indwelling Catheter Indwelling Catheter Indwelling Catheter - Exam GENERAL EXAM: Alert, very pleasant, 79-year-old white male, appears to be chronically ill, appears weak, slightly more awake on today's exam but opens eyes and answers questions appropriately, on 2 L of oxygen, but no evidence of shortness of breath HEAD: Normocephalic/atraumatic. EYES: Normal reaction of pupils, equal size. Conjunctiva pink, sclera white. NOSE: Clear with pink turbinates. THROAT: No erythema or exudates. NECK: No masses, no JVD, no thyroid enlargement, no adenopathy. CHEST: No chest wall deformity. Symmetrical expansion. Right subclavian hem odialysis catheter LUNGS: Equal air entry with no crackles, wheeze, rhonchi or dullness. CVS: Regular rate and rhythm, normal S1 and S2, no gallops, no murmurs, no rubs ABDOMEN: Soft, nontender. No hepatosplenomegaly, normal bowel sounds, no guarding or rigidity. EXTREMITIES: No clubbing, no edema, no cyanosis, 2+ pulses and upper and lower extremities. Interval removal of the right groin temporary hemodialysis catheter, placement of a permanent hemodialysis access in the right subclavian area MUSCULOSKELETAL: Muscle strength and tone normal. SPINE: No scoliosis or deformity SKIN: No rashes CENTRAL NERVOUS SYSTEM: Alert and oriented -3. No focal deficits, tone is normal in all 4 extremities. PSYCHIATRIC: Alert and oriented -3. Appropriate affect. Intact judgment and insight. - Labs CBC & Chem 7: 01/11/20 07:21 01/11/20 07:21 Labs: Abnormal Lab Results - Last 24 Hours (Table) 01/10/20 01/10/20 01/10/20 Range/Units 09:33 11:13 12:08 RBC 2.59 L (4.30-5.90) m/uL Hgb 7.3 L (13.0-17.5) gm/dL Hct 23.3 L (39.0-53.0) % RDW 17.9 H (11.5-15.5) % Plt Count 140 L (150-450) k/uL Lymphocytes # (1.0-4.8) k/uL Sodium (137-145) mmol/L Potassium (3.5-5.1) mmol/L BUN (9-20) mg/dL Creatinine (0.66-1.25) mg/dL Glucose (74-99) mg/dL POC Glucose (mg/dL) 71 L (75-99) mg/dL Calcium (8.4-10.2) mg/dL Crossmatch See Detail 01/10/20 01/10/20 01/10/20 Range/Units 12:08 16:24 20:07 RBC (4.30-5.90) m/uL Hgb (13.0-17.5) gm/dL Hct (39.0-53.0) % RDW (11.5-15.5) % Plt Count (150-450) k/uL Lymphocytes # (1.0-4.8) k/uL Sodium 134 L (137-145) mmol/L Potassium (3.5-5.1) mmol/L BUN 50 H (9-20) mg/dL Creatinine 2.65 H (0.66-1.25) mg/dL Glucose 50 L (74-99) mg/dL POC Glucose (mg/dL) 127 H 232 H (75-99) mg/dL Calcium 7.5 L (8.4-10.2) mg/dL Crossmatch 01/11/20 01/11/20 01/11/20 Range/Units 06:10 06:25 07:21 RBC 2.45 L (4.30-5.90) m/uL Hgb 7.0 L (13.0-17.5) gm/dL Hct 22.6 L (39.0-53.0) % RDW 18.1 H (11.5-15.5) % Plt Count (150-450) k/uL Lymphocytes # 0.3 L (1.0-4.8) k/uL Sodium (137-145) mmol/L Potassium (3.5-5.1) mmol/L BUN (9-20) mg/dL Creatinine (0.66-1.25) mg/dL Glucose (74-99) mg/dL POC Glucose (mg/dL) 62 L 70 L (75-99) mg/dL Calcium (8.4-10.2) mg/dL Crossmatch 01/11/20 Range/Units 07:21 RBC (4.30-5.90) m/uL Hgb (13.0-17.5) gm/dL Hct (39.0-53.0) % RDW (11.5-15.5) % Plt Count (150-450) k/uL Lymphocytes # (1.0-4.8) k/uL Sodium 134 L (137-145) mmol/L Potassium 5.5 H (3.5-5.1) mmol/L BUN 58 H (9-20) mg/dL Creatinine 3.71 H (0.66-1.25) mg/dL Glucose 109 H (74-99) mg/dL POC Glucose (mg/dL) (75-99) mg/dL Calcium 7.4 L (8.4-10.2) mg/dL Crossmatch Assessment and Plan Plan: Assessment: #1. Acute systolic congestive heart failure, ejection fraction is 45%, known to have moderate mitral regurgitation and aortic stenosis. #2. Right sided pleural effusion, transudative in nature based on the labs. This is cardiac in nature. Cytology on the fluid was also negative. #3. Type 2 diabetes with nephropathy. #4. Hypertension. #5. Dyslipidemia. #6. Coronary artery disease and previous CABG in December of 2018. #7. Acute on chronic kidney disease stage IV, requiring initiation of hemodialysis #8. Troponin leak #9. History of iron deficiency anemia and previous positive occult blood in the stools. #10. Hypotension today, possibly hypovolemic, hemodialysis treatment had to be stopped, improved, and today on 01/10/2020 patient is tolerating hemodialysis #11. Acute on chronic anemia, she will receive a unit of blood today on 01/10/2020 for hemoglobin of 6.9 Plan: Continue current medical treatment, patient is afebrile, he is making urine, he is in negative fluid balance, no dialysis is planned for today, he is on 2 L of oxygen, no worsening hypoxemia shortness of breath, but overall patient states he does not feel good, he had episode of relative hypoglycemia this morning, and orders juice was given, encourage oral intake, patient has a very poor appetite. Vital signs are stable, overall prognosis is guarded, patient indicated to us yesterday that he does not want any heroic measures, will continue supportively treat him I performed a history & physical examination of the patient and discussed their management with my nurse practitioner, Demetria Ramos. I reviewed the nurse practitioner's note and agree with the documented findings and plan of care. Lung sounds are positive for diminished breath sound at the bases. The findings and the impression was discussed with the patient. I attest to the documentation by the nurse practitioner. Time with Patient: Less than 30
[2020-01-11 11:23] LABS: Glucose,Whole Blood 178 mg/dL (75-99)
--- NOTE | 2020-01-11 11:45 | P.PN ---
Subjective Progress Note Date: 01/11/20 Principal diagnosis: This is a 79-year-old male who was recently admitted with congestive heart failure acute exacerbation, acute on chronic systolic dysfunction also had mitral regurgitation and aortic stenosis noted and is being closely monitored. Patient also started with hemodialysis new-onset. Multiple medical consultations following closely. PT/OT to evaluate the patient for possible ECF rehab for continued physical therapy treatment for strength and mobility. Nasreen lee was receiving hemodialysis today and stated he was having some chest pain and heart rate was noted to be in the 30s to 50s along with some hypotension and hemodialysis was stopped. Patient then stated he was having no chest pain just some nausea with severe back pain and requesting to sit up in the chair. Patient was given Zofran with relief of nausea. Hemoglobin today was 7.6, sodium 134, potassium 5.8, BUN 98, and current creatinine 4.58. Will attempt dialysis again tomorrow. Nephrology is following closely. review of systems: Constitutional: No reports of fevers or chills Cardiovascular: Reported chest pain that has resolved, no reports of palpitations Respiratory: No reports of shortness of breath or cough GI: Reported mild nausea that is resolved, no reports of vomiting or diarrhea : No reports of dysuria or retention 01/09/2020 Patient is seen and evaluated in follow-up currently receiving hemodialysis. Patient is scheduled to undergo permanent dialysis catheter placement sometime today. No reports of chest pain or palpitations noted. Reports of chest pain. Patient continues to have intermittent nausea that is relieved with Zofran. Blood pressures continue to be slightly low in the 90s systolic. Potassium was 6.3 today and given a dose of Kayexalate. BUN is 106 and creatinine is 4.94 and is receiving hemodialysis as mentioned previously. Hemoglobin today is 7.5. 01/10/2020 Patient is seen and evaluated in follow-up today and currently receiving hemo dialysis. Patient denies any nausea or vomiting today. No reports of chest pain, shortness of breath, or palpitations. Discussed with the patient about CODE STATUS and he wishes to be a no code. Patient did receive a permanent dialysis catheter with nursing staff reported some oozing of the site and will be given a dose of DDAVP. Nephrology following closely. Potassium today prior to dialysis was 6.1 with a hemoglobin of 6.9. Repeat labs after dialysis shows potassium of 4.6, sodium is 134, UN is 50, creatinine is 2.65, and hemoglobin is 7.3 requiring no transfusion at this time. Platelets continue to be low at 140. Currently no reports of chest pain, shortness of breath, or palpitations. Patient is afebrile. Case management and social work following to assist with discharge planning needs as patient will likely go to an ECF once stable and discharged. 01/11/2020 Patient is seen in follow-up today with overall weakness and fatigue stating he does not feel well. Patient's hemoglobin is 7.0 and awaiting to receive 1 unit of PRBCs. Unsure of hemodialysis today. Nephrology following. Current creatinine is 3.71 with a potassium of 5.5 and sodium of 134. Patient continues to have poor oral intake but denies any nausea or vomiting today. No reports of chest pain, worsening shortness of breath, or palpitations. Patient is afebrile. Blood pressure is low in the 90s systolic today. Patient remains on 2 L via nasal cannula. Objective - Vital Signs Vital signs: Vital Signs Temp 98.2 F 01/11/20 04:32 Pulse 86 01/11/20 04:32 Resp 18 01/11/20 04:32 BP 93/52 01/11/20 04:32 Pulse Ox 95 01/11/20 04:32 Intake & Output 01/10/20 01/11/20 01/11/20 18:59 06:59 18:59 Intake Total 120 Output Total 3000 400 Balance -2880 -400 Weight 81 kg Intake: Oral 120 Output: Urine 400 Hemodialysis 3000 Other: Voiding Method Indwelling Catheter Indwelling Catheter - Exam Gen: This is a 79-year-old male lying up in bed, awake, alert and oriented 3, continues to be lethargic, pale, well-developed, well-nourished. HEENT: Head is atraumatic, normocephalic. Pupils equal, round. Sclerae is anicteric. NECK: Supple. No JVD. No lymphadenopathy. No thyromegaly. LUNGS: Diminished breath sounds at the bases with a few scattered rhonchi noted. No intercostal retractions. HEART: S1, S2 are muffled ABDOMEN: Soft. Bowel sounds are present. No masses. No tenderness. EXTREMITIES: No pedal edema. No calf tenderness. NEUROLOGICAL: Patient is awake, alert and oriented x3. Cranial nerves 2 through 12 are grossly intact. - Labs CBC & Chem 7: 01/11/20 07:21 01/11/20 07:21 Labs: Abnormal Lab Results - Last 24 Hours (Table) 01/10/20 01/10/20 01/10/20 Range/Units 09:33 11:13 12:08 RBC 2.59 L (4.30-5.90) m/uL Hgb 7.3 L (13.0-17.5) gm/dL Hct 23.3 L (39.0-53.0) % RDW 17.9 H (11.5-15.5) % Plt Count 140 L (150-450) k/uL Lymphocytes # (1.0-4.8) k/uL Sodium (137-145) mmol/L Potassium (3.5-5.1) mmol/L BUN (9-20) mg/dL Creatinine (0.66-1.25) mg/dL Glucose (74-99) mg/dL POC Glucose (mg/dL) 71 L (75-99) mg/dL Calcium (8.4-10.2) mg/dL Crossmatch See Detail 01/10/20 01/10/20 01/10/20 Range/Units 12:08 16:24 20:07 RBC (4.30-5.90) m/uL Hgb (13.0-17.5) gm/dL Hct (39.0-53.0) % RDW (11.5-15.5) % Plt Count (150-450) k/uL Lymphocytes # (1.0-4.8) k/uL Sodium 134 L (137-145) mmol/L Potassium (3.5-5.1) mmol/L BUN 50 H (9-20) mg/dL Creatinine 2.65 H (0.66-1.25) mg/dL Glucose 50 L (74-99) mg/dL POC Glucose (mg/dL) 127 H 232 H (75-99) mg/dL Calcium 7.5 L (8.4-10.2) mg/dL Crossmatch 01/11/20 01/11/20 01/11/20 Range/Units 06:10 06:25 07:21 RBC 2.45 L (4.30-5.90) m/uL Hgb 7.0 L (13.0-17.5) gm/dL Hct 22.6 L (39.0-53.0) % RDW 18.1 H (11.5-15.5) % Plt Count (150-450) k/uL Lymphocytes # 0.3 L (1.0-4.8) k/uL Sodium (137-145) mmol/L Potassium (3.5-5.1) mmol/L BUN (9-20) mg/dL Creatinine (0.66-1.25) mg/dL Glucose (74-99) mg/dL POC Glucose (mg/dL) 62 L 70 L (75-99) mg/dL Calcium (8.4-10.2) mg/dL Crossmatch 01/11/20 Range/Units 07:21 RBC (4.30-5.90) m/uL Hgb (13.0-17.5) gm/dL Hct (39.0-53.0) % RDW (11.5-15.5) % Plt Count (150-450) k/uL Lymphocytes # (1.0-4.8) k/uL Sodium 134 L (137-145) mmol/L Potassium 5.5 H (3.5-5.1) mmol/L BUN 58 H (9-20) mg/dL Creatinine 3.71 H (0.66-1.25) mg/dL Glucose 109 H (74-99) mg/dL POC Glucose (mg/dL) (75-99) mg/dL Calcium 7.4 L (8.4-10.2) mg/dL Crossmatch Assessment and Plan Assessment: Congestive heart failure, acute exacerbation with acute on chronic systolic dysfunction, ejection fraction 45% with moderate mitral regurgitation, aortic stenosis Acute renal failure, possible acute on chronic with possible acute tubular necrosis with newly started hemodialysis Hypoglycemia, most likely related to poor oral intake. Improved. Patient does have a history of diabetes and continues on a sliding scale along with long- acting, current glucose at 11:15 AM is 178, lowest was 62 that improved with orange juice Right-sided pleural effusion status post thoracentesis, possibly secondary to transudative reaction secondary to congestive heart failure and renal failure Possible right lower lobe pneumonia, underlying with possible gram-negative Chronic atrial fibrillation Elevated troponin of undetermined etiology at the time of presentation 0.259 Diabetes mellitus type 2 with nephropathy Hypertension Hyperlipidemia Gait dysfunction History of coronary artery disease, coronary artery bypass grafting Chronic kidney disease stage IV History of normocytic anemia secondary to chronic renal disease history of degenerative joint disease History of coronary artery disease, stent No code Recommendations and discussion: Recommend to continue current medications, management, and symptomatic treatment. Hemoglobin is 7.0 and awaiting 1 unit of PRBCs today. Multiple medical consultations following. Nephrology following closely. PT/OT to evaluate the patient about continues to be quite weak and lethargic and has not been getting up out of bed much. Case management and social work following for possible ECF placement for continued physical therapy for strength and mobility upon discharge once stabilized. Further recommendations to follow.
[2020-01-11 13:02] VITALS: BMI 28.8
--- NOTE | 2020-01-11 13:05 | PN ---
PROGRESS NOTE Patient is seen for followup for acute kidney injury, currently hemodialysis dependent. He is lying in bed, he is comfortable. He denies any significant complaints except for not being able to sleep. He states he was feeling cold. No diarrhea. No chest pains or shortness of breath. Blood pressure this morning was 93/52, heart rate 86 per minute, he is afebrile. Examination of the heart S1, S2. Examination of lungs, decreased breath sounds at the bases. Abdomen is soft, nontender. Examination of the lower extremities shows 1+ edema bilaterally. Edema has improved. TRAVEL RN OR exam grossly intact. LABS: Show sodium 134, potassium 5.5, chloride 100, BUN 58, creatinine 3.7, hemoglobin 7.0 g/dL. ASSESSMENT: 1. Acute kidney injury on top of chronic kidney disease, currently hemodialysis dependent. Patient is maintained on daily dialysis for now. He will receive another treatment today and tomorrow. 2. Volume overload, currently improved. 3. Bleeding from the IJ catheter, status post DDAVP yesterday currently improved. 4. Hyperkalemia associated with acute kidney injury and underlying gastrointestinal bleed. Expect improvement with dialysis today. 5. Hyperphosphatemia associated with renal failure, maintained on PhosLo. 6. Nutritional vitamin D deficiency, maintained on vitamin D supplementation. 7. Generalized debility. 8. Anemia with stool for occult blood positive. Consider GI workup this hospitalization. PLAN: Hemodialysis today and then again in a.m. Avoid Kayexalate. Consider GI workup for GI bleed. Outpatient placement for dialysis. Encourage increased oral intake. MMODL / IJN: [id number] /
[2020-01-11] MEDS: HYDROcodone/APAP 5-325MG 1 EACH TAB PO PRN (13:06)
[2020-01-11 16:21] LABS: Glucose,Whole Blood 236 mg/dL (75-99)
[2020-01-11 20:41] LABS: Glucose,Whole Blood 128 mg/dL (75-99)
[2020-01-11] MEDS: CALCIUM CARBONATE 500 MG CHEWABLE PO SCH ×2 (20:44→22:01)
[2020-01-11] MEDS: AMMONIUM LACTATE 12% CREAM 140 GM TUBE TOPICAL SCH ×2 (20:44→22:01)
[2020-01-11] MEDS: ERGOCALCIFEROL 50,000 UNIT CAP PO SCH (20:44)
[2020-01-11] MEDS: PRAVASTATIN SODIUM 80 MG TAB PO SCH (20:45)
[2020-01-11] MEDS: PANTOPRAZOLE 40 MG TABLET PO SCH (20:45)
[2020-01-11] MEDS: FUROSEMIDE 10 MG/ML 10 ML VIAL IV SCH ×2 (20:45→22:01)
[2020-01-11] MEDS: TAMSULOSIN 0.4 MG CAP.ER.24H PO SCH ×2 (20:45→22:02)
[2020-01-11] MEDS: FERROUS SULFATE 325 MG TAB PO SCH ×2 (20:45→22:01)
[2020-01-11] MEDS: METOPROLOL TARTRATE 25 MG TAB PO SCH ×2 (20:45→22:02)
[2020-01-11] MEDS: DARBEPOETIN ALFA 60 MCG/0.3 ML SYRINGE SQ SCH (20:46)
[2020-01-11] MEDS: MELATONIN 3 MG TABLET PO SCH (22:01)
[2020-01-11] MEDS: INSULIN DETEMIR (LEVEMIR) 100 UNIT/ML SYR SQ SCH (22:01)
[2020-01-11 23:35] VITALS: RESP 18
[2020-01-12] MEDS: CALCIUM ACETATE 667 MG TAB PO SCH ×2 (06:09→12:15)
[2020-01-12] MEDS: ASCORBIC ACID 500 MG TAB PO SCH (06:09)
[2020-01-12 06:17] LABS: Glucose,Whole Blood 125 mg/dL (75-99)
[2020-01-12] MEDS: INSULIN ASPART (NovoLOG) 100 UNIT/ML VIAL SQ SCH ×2 (06:18→12:16)
[2020-01-12 07:29] LABS: Anisocytosis Slight; Basophils % (A) 1 %; Eosinophils # (A) 0.2 k/uL (0-0.7); Eosinophils % (A) 4 %; HCT 25.5 % (39.0-53.0); HGB 7.8 gm/dL (13.0-17.5); Hypochromasia Moderate; Lymphocytes # (A) 0.3 k/uL (1.0-4.8); Lymphocytes % (A) 5 %; MCH 28.1 pg (25.0-35.0); MCHC 30.8 g/dL (31.0-37.0); MCV 91.3 fL (80.0-100.0); Mean Platelet Volume 7.2; Monocytes # (A) 0.4 k/uL (0-1.0); Monocytes % (A) 8 %; Neutrophils # (A) 4.1 k/uL (1.3-7.7); Neutrophils % (A) 78 %; Platelet Count 145 k/uL (150-450); RBC 2.79 m/uL (4.30-5.90); RDW 17.8 % (11.5-15.5); WBC 5.3 k/uL (3.8-10.6)
[2020-01-12 07:37] LABS: Calcium 7.3 mg/dL (8.4-10.2)
[2020-01-12] MEDS: SODIUM CHLORIDE 0.9% 1,000 ML IV SCH ×2 (07:52→13:29)
[2020-01-12 12:04] LABS: Glucose,Whole Blood 88 mg/dL (75-99)
--- NOTE | 2020-01-12 12:08 | P.PN ---
Subjective Progress Note Date: 01/12/20 Principal diagnosis: Acute exacerbation of CHF 79-year-old male patient who came into the emergency department complaining of worsening shortness of breath. He denied having any significant cough or sputum production. Denied having any sick contacts including exposure to COVID 19. He was however getting more short of breath and addition to that he was coughing out some thick sputum. Denied having any chest pain. No nausea. No vomiting. No abdominal pain. He has multiple medical problems and comorbidities in summary, the patient has history of chronic kidney disease stage 3-4, coronary artery disease with previous bypass surgery that was done in December 2018, diabet es mellitus with history of diabetic nephropathy, hypertension, hyperlipidemia, chronic atrial fibrillation and chronic congestion heart failure. His workup in emergency department revealed the following He had a chest x-ray that showed better pleural effusion in addition to a right lower lobe consolidation. EKG showed no acute ST segment elevation or depression. There was a right bundle branch block pattern with a sinus rhythm His blood work showed an acute on top of chronic kidney injury. His creatinine was up to 8.3 with a potassium level of 5.4 in the sodium level [id number]. Note that his baseline creatinine was as high as 2.4. He did have some mild troponin elevation with levels being at 0.08, 0.11 and 0.25 respectively His occult stool was also positive His blood gases showed metabolic acidosis with a pH of 7.11 and a pCO2 of 22 and pO2 of 118 The patient was seen in intensive care unit. Despite his metabolic acidosis, the patient was awake and alert and following commands and answering course appropriately. Clinically , he was quite dry including grasses mucous membranes without any significant edema in lower extremities bilaterally. He was given IV fluids and recommended giving another liter of bolus and maintaining him on a bicarb infusion with D5 and 150 mEq of sodium bicarbonate to be relatively 5 mL an hour. He was started on broad-spectrum antibiotics. He was given accommodation Rocephin and Zithromax. I held his diuretics for now. His echocardiogram from previous evaluations have shown an ejection fraction of 40- 45% and his last cardiac catheterization was done in November 2018 showing GONZALEZ to LAD, saphenous vein graft to diagonal branch and acute marginal branch and left PDA. He had essentially nonocclusive disease. He has mild aortic stenosis and moderate mitral regurgitation. On 12/28/2019, the patient is being seen for a follow-up in the intensive care unit. Note that the patient was being treated for right lower lobe pneumonia/bilateral pneumonia and the patient was given a broad-spectrum antibiotic coverage. He was also in acute on chronic kidney injury and the patient was resuscitated IV fluids. On today's evaluation, the patient is quite comfortable and he is still on room air oxygen. His chest x-ray from today shows a 15th 20% pneumothorax on the right. Note that this was a spontaneous pneumothorax and the patient did not have any fall, trauma, or any other surgical procedures done on the right side of the chest. The patient is on a D5 and 150 mg of bicarb infusion rate of 75 mL's an hour. Urine output is in order of 30 mL an hour. The patient remains in atrial fibrillation with a controlled rate. The white cell count is at 7.8 with hemoglobin 8.5. White cell count is improved. Hemoglobin dropped however this was essentially a adequate study for now nontender the previous value was hemoconcentrated. The patient's BUN is on 279. The patient's creatinine is down to 7.9. The patient's serum bicarbs up to 35. I added also normal saline at 75 an hour. The patient me what is still on a broad-spectrum antibiotic coverage utilizing a combination of Rocephin and Zithromax. He is afebrile. I decided not to put any chest tube on the right side as the patient is quite comfortable and there is no evidence of any tension. Nevertheless, I decided to obtain a follow-up chest x-ray at around noontime. This will be needed to monitor the right-sided pneumothorax. On 12/29/2019, patient is being seen for a follow-up. The patient has bilateral pneumonia, respiratory failure, right-sided pneumothorax which has remained stable. The patient has been on room air oxygen. He continues to be on IV f luid was D5 water and 150 mEq of sodium bicarbonate running at 75 mL an hour in addition to a normal saline running at 75 Christy hour. Renal function continues to improve. Creatinine continues to improve. The patient remains on a combination of Rocephin and Zithromax regarding the right lower lobe pneumonia. Cultures of been negative thus far. Nephrotic syndrome the case regarding the acute kidney injury. Today's white cell count is at 7.2. Hemoglobin stable at 9.2. BUN is still elevated at 168 with a creatinine of 7.3 although this is improved compared to yesterday. The neck fluid balance has been +2.9 L 40 yesterday and +3.2 L over the past shift. Nephrology is on the case. Based on the persistent abnormality in the right lower lung area, I proceeded with a CAT scan of the chest and the CAT scan showed a 20% pneumothorax on the right, moderate to large bilateral pleural effusion with perihilar and basilar infiltrates and a masslike infiltration in the left lower lobe. Discussed the findings with interventional radiology. May consider a pigtail catheter drain the fluid and the pneumothorax and regular chest tube. On 12/30/2019 the patient is being seen for a follow-up. I performed a thoracentesis on this patient yesterday. A total of 900 mL of pleural fluid was aspirated. The right-sided pneumothorax was also removed. There was obvious decrease in size of the right-sided pneumothorax and the fluid analysis came back as transudate consistent with CHF as the patient had low LDH and low protein in the pleural fluid. This morning the patient's pulse ox 98% on room air. The patient was on a bicarb infusion rate of 80 mL an hour. His serum bicarb is up to 26 and the patient will be taken of the sodium bicarb and be placed on normal saline. The neck fluid balance has been +3.2 L over the past 24 hours. Chest x-ray findings show a small right apical pneumothorax, there is bilateral basilar airspace disease and there is also an ongoing left-sided pleur al effusion. The patient otherwise is improving in terms of his renal function. Creatinine slowly improving and the BUN is down to 160 in the creatinine is down to 6.8. Rest of the electrodes are all within normal limits. Calcium level was at 5.5 and the patient was given IV calcium replacement. White cell count is 9.1. Hemoglobin is at 8.7. The antibiotic coverage remains a combination of Rocephin and Zithromax. No other changes and antibiotic coverage was done for the time being. The pro calcitonin level was 0.51. On 12/31/2019, the patient is looking well and has no specific complaints. Renal function continues to be impaired. Nephrology was considering dialysis, however, based on the ongoing improvement in urine output, dialysis will not be down we'll continue to monitor the patient's renal function. I am still monitoring the patient's respiratory status. The patient remains on broad- spectrum antibiotics. We treated him for a lower lobe pneumonia bilateral, however, based on further evaluations, the patient seems to be having more so pleural effusions. I performed a right-sided thoracentesis evacuating the right-sided pneumothorax and the right-sided pleural effusion. The fluid was a transudate. There is still some residual right-sided pneumothorax on today's chest x-ray. The patient is afebrile. The patient is producing adequate amount of urine output. He remains on the same antibiotic coverage. He is still in a positive fluid balance of 365 mL over the past 24 hours. His BN is at 148. Creatinine is at 6.8. No significant electrolyte disturbances. The white cell count is at 8 with a hemoglobin of 8.3. Reevaluated today on 01/01/20, patient remains in the ICU, he is on room air with O2 saturation in 94%. His IV fluid is at 100 mL/h, and I cut it down to KVO. Patient seems to be doing well since he had his right sided thoracentesis, the fluid turned out to be transudative in nature, and not extubated. Hence I have a feeling that this is all related to acute systolic congestive heart failure rather than pneumonia and parapneumonic effusion. Again the fluid was transudate of and speaks in favor of cardiac etiology of his failure rather than pulmonary etiology. Nonetheless, patient remains empirically on antibiotics coverage. Underlying pneumonia is not entirely ruled out, but at this point I feel it is less likely. Labs today showed WBC count of 8.9 hemoglobin is 7.9. Index was abnormal renal profile remains poor with BUN of 144 creatinine 6.49 minimal improvement compared to yesterday's labs. Clinically however the mallory morris is feeling better, breathing easier, and he is on room air at 94% SaO2. Reevaluated today on 01/02/20, patient ICU, he is presently on room air, he feels generally weak, tired, he is negative fluid balance over the last 24 hours by 125 ML. Renal functioning seems to be worsening. Patient remains in atrial flutter however rate is 70 beats per minutes. Continues to have fine crackles at the bases. And chest x-ray is suggestive of mild interstitial edema and small tiny pleural effusions. Discussed his condition with nephrology, and considering his renal status, patient is being considered for hemodialysis today. Patient is hemodynamically stable. But again he feels extremely weak a nd tired. Renal profile is worse with a BUN of 137 creatinine 6.28. CBC showed WBC count of 8.6 hemoglobin is 8. Reevaluated today on 01/03/20, patient remains in the ICU, doing relatively well, improved compared to yesterday, not feeling as weak. Underwent hemodialysis yesterday, his urine output is about 3 0 mL per hour. Oral intake is reasonable. Patient is feeling better to chest x-ray continues to show evidence of mild congestive heart failure changes. Patient is on room air, O2 satur ations 99%, he has no IV fluid, and I plan to transfer the patient out of the ICU to a cardiac bed on selective today. On 01/04/2020 patient seen in follow-up on selective care unit, his breathing co ntinues to improve, he remains on room air, with pulse ox of 100%, hemodynamically stable, his been afebrile. He was started on hemodialysis this admission, and yesterday he had a treatment would removal of 3.2 L of fluid. Today's labs have been reviewed, electrolytes are unremarkable, renal profile has improved, B1 is down to 82, creatinine is 4.45. Lung sounds are positive for diminished breath sounds at the bases. Patient has a little bit more awake and alert us stronger today. No nausea vomiting or diarrhea. He remains on oral Lasix as well, empiric antibiotics in the form of azithromycin, his blood cultures pleural fluid cultures and sputum have all been negative, pleural fluid analysis transudate of fluid consistent with CHF exacerbation. On 01/05/2020 patient seen on selective care unit, she is awake and alert, in no acute distress, he sitting up in the recliner, currently on room air, with a pulse of 97%. Breathing is comfortable, patient has hemodialysis yesterday with removal of 3.2 L of fluid, he is voiding, today's labs have been reviewed showing stable renal function, with BUN of 87 and creatinine of 4.74. His pro calcitonin was low, we discontinued patient's antibiotics, his been afebrile, no cough or congestion or phlegm production. His blood and pleural fluid sputum and urine cultures have been negative. No CBC today. No nausea vomiting or diarrhea. Doing well On 01/08/2020 patient seen in follow-up on selective care unit. He is resting in bed, she is morning, he is complaining of back pain, apparently today he was supposed to have dialysis but could not tolerate dialysis because of hypotension and systolic blood pressure in the 70s. He also complained of some chest pain during dialysis so the treatment had to be stopped. Currently on 2 L of oxygen, room air pulse ox earlier was 98%, his been, denies any worsening shortness of breath, today's labs have been reviewed showing fairly stable renal profile, with the BUN of 98, and creatinine of 4.58, sodium of 134, potassium is 5.8, the rest of electrolytes were within normal limits, white blood cell count was 7.8, hemoglobin is 7.6, he was given a unit of blood yesterday for hemoglobin of 6.8. No new chest x-rays today, no fever or chills, all cultures including sputum, pleural fluid in urine cultures have been negative. He has completed his antibiotics, he remains on oral Lasix 80 mg twice daily On 01/09/2020 patient seen in follow-up selective care unit, he is feeling bet ter today, no complaints of chest pain, no shortness of breath, he is receiving hemodialysis treatment right now, his blood pressure is stable today, 120/58, and the goal is to remove 2-3 L of fluid with hemodialysis he still has his right groin hemodialysis access vascular surgery will be consulted for placement of permanent dialysis catheter. No fever or chills, today's labs have been reviewed, showing white blood cell, 9.6, hemoglobin is 7.5, sodium is 133, potassium 6.3, B1 is 106 and creatinine is 4.94. he remains on IV Lasix at 80 mg every 12 hours, lung sounds are diminished at the bases, no rhonchi or wheezing. On 01/10/2020 patient seen in follow-up on selective care unit, seems lethargic on today's exam, but arousable, he is able to communicate, is having hemodialysis treatment right now, he is on 2 L of oxygen with pulse ox 100%, he has a emesis bucket in front of him, presumably for nausea, he is afebrile, yesterday 2 L of fluid was removed with hemodialysis, patient had 2200 mL removed with hemodialysis today. Blood pressure is stable today 106/67. His right groin temporary hemodialysis catheter was removed yesterday, and patient had right subclavian permanent catheter placed by vascular surgery. Hemoglobin 6.9 today, and patient will receive a unit of blood, sodium is 132, potassium is 6.1, respiratory/lites were unremarkable, BUN is 85 and creatinine is 4.73. Patient states he is just not feeling good today, sleepy, fatigued and tired. Today's chest x-ray shows stable fluid overload with central vascular congestion and fairly moderate-sized bilateral pleural effusions. On 01/11/2020 patient seen in follow-up on selective care unit, a bit more awake today, conversant, denies shortness of breath, he is on 2 L of oxygen and the pulse ox of 95%, hemodynamically stable, no hemodialysis treatment is planned for today, he remains on Lasix, and patient is producing urine, overall he is in -3280 mL fluid balance over the last 24 hours. Patient has a very poor appetite, apparently he was hypoglycemic this morning in requiring orange juice. Repeat blood sugar was 109. He states he just does not feel good, but denies any specific complaints. His labs today show white blood cell, 7.1, hemoglobin 7.0, platelet count of 152, sodium is 134, potassium is 5.5, chloride is 100, BUN is 58 creatinine is 3.71. All his cultures have been negative, patient has had no fever or chills, we discontinued his antibiotics several days ago. On 01/12/2020 patient seen in follow-up on selective care unit, he is having his hemodialysis treatment today, he is very lethargic, his appetite has been quite poor, his oral intake has been poor, patient has been sleeping most of the time, he does wake up to verbal stimulation, he knows he is in the hospital and he knows the correct date. No acute events overnight, he denies any worsening dyspnea or chest pain, he appears quite weak, his been steadily clinically declining, with increased lethargy, weakness, decreased oral intake. We recommended hospice consultation and apparently hospice sales representative health insurance was in to speak to him. Patient's mentation is waxing and waning, however she does wake up and she is able to answer questions. He apparently spoke to the hospice and decided he does not want hospice. However during my evaluation patient stated that he just wants to go with peace and comfort. Apparently patient changes his mind frequently, today's labs have been reviewed showing white blood cell count of 5.3, hemoglobin of 7.8, platelet count was 145, sodium is 136, the rest of the electrodes were within normal limits, BUN of 39 creatinine of 2.83 Objective - Vital Signs Vital signs: Vital Signs Temp 98.1 F 01/12/20 07:00 Pulse 66 01/12/20 07:00 Resp 18 01/12/20 07:00 BP 103/55 01/12/20 07:00 Pulse Ox 100 01/12/20 07:00 Intake & Output 01/11/20 01/12/20 01/12/20 18:59 06:59 18:59 Intake Total 550 0 60 Output Total 0 2500 Balance 550 -2500 60 Weight 81 kg 61 kg Intake: Oral 240 0 60 Blood Product 310 Rc Pheresis As-3 Unit 310 [id number] Output: Urine 50 Stool 0 Hemodialysis 2450 Other: Voiding Method Indwelling Catheter Indwelling Catheter Indwelling Catheter - Exam GENERAL EXAM: Lethargic 79-year-old white male, appears to be chronically ill, appears weak, slightly more awake on today's exam but opens eyes and answers questions appropriately, on 2 L of oxygen, but no evidence of shortness of breath HEAD: Normocephalic/atraumatic. EYES: Normal reaction of pupils, equal size. Conjunctiva pink, sclera white. NOSE: Clear with pink turbinates. THROAT: No erythema or exudates. NECK: No masses, no JVD, no thyroid enlargement, no adenopathy. CHEST: No chest wall deformity. Symmetrical expansion. Right subclavian hemodialysis catheter LUNGS: Equal air entry with no crackles, wheeze, rhonchi or dullness. CVS: Regular rate and rhythm, normal S1 and S2, no gallops, no murmurs, no rubs ABDOMEN: Soft, nontender. No hepatosplenomegaly, normal bowel sounds, no guarding or rigidity. EXTREMITIES: No clubbing, no edema, no cyanosis, 2+ pulses and upper and lower extremities. Interval removal of the right groin temporary hemodialysis catheter, placement of a permanent hemodialysis access in the right subclavian area MUSCULOSKELETAL: Muscle strength and tone normal. SPINE: No scoliosis or deformity SKIN: No rashes CENTRAL NERVOUS SYSTEM: Alert and oriented -3. No focal deficits, tone is normal in all 4 extremities. PSYCHIATRIC: Alert and oriented -3. Appropriate affect. Intact judgment and insight. - Labs CBC & Chem 7: 01/12/20 07:05 01/12/20 07:05 Labs: Abnormal Lab Results - Last 24 Hours (Table) 01/10/20 01/11/20 01/11/20 Range/Units 09:33 16:20 20:40 RBC (4.30-5.90) m/uL Hgb (13.0-17.5) gm/dL Hct (39.0-53.0) % MCHC (31.0-37.0) g/dL RDW (11.5-15.5) % Plt Count (150-450) k/uL Lymphocytes # (1.0-4.8) k/uL Sodium (137-145) mmol/L BUN (9-20) mg/dL Creatinine (0.66-1.25) mg/dL POC Glucose (mg/dL) 236 H 128 H (75-99) mg/dL Calcium (8.4-10.2) mg/dL Crossmatch See Detail 01/12/20 01/12/20 01/12/20 Range/Units 06:16 07:05 07:05 RBC 2.79 L (4.30-5.90) m/uL Hgb 7.8 L (13.0-17.5) gm/dL Hct 25.5 L (39.0-53.0) % MCHC 30.8 L (31.0-37.0) g/dL RDW 17.8 H (11.5-15.5) % Plt Count 145 L (150-450) k/uL Lymphocytes # 0.3 L (1.0-4.8) k/uL Sodium 136 L (137-145) mmol/L BUN 39 H (9-20) mg/dL Creatinine 2.83 H (0.66-1.25) mg/dL POC Glucose (mg/dL) 125 H (75-99) mg/dL Calcium 7.3 L (8.4-10.2) mg/dL Crossmatch Assessment and Plan Plan: Assessment: #1. Acute systolic congestive heart failure, ejection fraction is 45%, known to have moderate mitral regurgitation and aortic stenosis. #2. Right sided pleural effusion, transudative in nature based on the labs. This is cardiac in nature. Cytology on the fluid was also negative. #3. Type 2 diabetes with nephropathy. #4. Hypertension. #5. Dyslipidemia. #6. Coronary artery disease and previous CABG in December of 2018. #7. Acute on chronic kidney disease stage IV, requiring initiation of hemodialysis #8. Troponin leak #9. History of iron deficiency anemia and previous positive occult blood in the stools. #10. Hypotension today, possibly hypovolemic, hemodialysis treatment had to be stopped, improved, and today on 01/10/2020 patient is tolerating hemodialysis #11. Acute on chronic anemia, she will receive a unit of blood today on 01/10/2020 for hemoglobin of 6.9 Plan: Patient is continuing to clinically decline, his mentation is waxing and waning, however he has made statements that he feels like he is dying, his oral intake is quite poor, she sleeping most of the time, he is increasingly weak. At this point we recommend revisiting the issue of hospice and palliative care with his brother who is next of kin in view of fluctuating mental status of the patient, and overall declining clinical status. I performed a history & physical examination of the patient and discussed their management with my nurse practitioner, Demetria Ramos. I reviewed the nurse practitioner's note and agree with the documented findings and plan of care. Lung sounds are positive for diminished breath sound at the bases. The findings and the impression was discussed with the patient. I attest to the documentation by the nurse practitioner. Time with Patient: Less than 30
[2020-01-12] MEDS: FUROSEMIDE 10 MG/ML 10 ML VIAL IV SCH (12:14)
[2020-01-12] MEDS: PRAVASTATIN SODIUM 80 MG TAB PO SCH (12:15)
[2020-01-12] MEDS: FINASTERIDE 5 MG TAB PO SCH (12:15)
[2020-01-12] MEDS: PANTOPRAZOLE 40 MG TABLET PO SCH (12:15)
[2020-01-12] MEDS: FERROUS SULFATE 325 MG TAB PO SCH (12:15)
[2020-01-12] MEDS: CALCIUM CARBONATE 500 MG CHEWABLE PO SCH (12:15)
[2020-01-12] MEDS: TAMSULOSIN 0.4 MG CAP.ER.24H PO SCH (12:15)
[2020-01-12] MEDS: METOPROLOL TARTRATE 25 MG TAB PO SCH (12:16)
[2020-01-12] MEDS: AMMONIUM LACTATE 12% CREAM 140 GM TUBE TOPICAL SCH (12:16)
--- NOTE | 2020-01-12 12:30 | P.DS ---
Providers Date of admission: 12/26/19 21:38 Expected date of discharge: 01/12/20 Attending physician: Kala Laboy Consults: 12/26/19 21:59 Consult Physician Stat Consulting Provider: Geo Epps Consult Reason/Comments: CHF Do you want consulting provider notified?: Yes Consult Physician Stat Consulting Provider: Dayan Strange Consult Reason/Comments: Renal failure Do you want consulting provider notified?: Yes 12/27/19 00:17 Consult Physician Stat Consulting Provider: Collin Jacob Consult Reason/Comments: ICU mgmt, Renal failure, pneumonia, chf Do you want consulting provider notified?: Already Contacted 12/31/19 06:34 Consult Physician Routine Consulting Provider: Crescencio Patrick Consult Reason/Comments: dialysis cath Do you want consulting provider notified?: Yes 01/09/20 11:41 Consult Physician Stat Consulting Provider: Crescencio Patrick Consult Reason/Comments: permenant HMD cath Do you want consulting provider notified?: Yes Primary care physician: [facility] Hospital Course: Final diagnosis Congestive heart failure, acute exacerbation with acute on chronic systolic dysfunction, ejection fraction 45% with moderate mitral regurgitation, aortic stenosis Acute renal failure, possible acute on chronic with possible acute tubular necrosis with newly started hemodialysis Hypoglycemia, most likely related to poor oral intake. Improved. Right-sided pleural effusion status post thoracentesis, possibly secondary to transudative reaction secondary to congestive heart failure and renal failure Possible right lower lobe pneumonia, underlying with possible gram-negative Chronic atrial fibrillation Elevated troponin of undetermined etiology at the time of presentation 0.259 Diabetes mellitus type 2 with nephropathy Hypertension Hyperlipidemia Gait dysfunction History of coronary artery disease, coronary artery bypass grafting Chronic kidney disease stage IV History of normocytic anemia secondary to chronic renal disease history of degenerative joint disease History of coronary artery disease, stent No code Discharge disposition Patient is being discharged in a stable condition with guarded prognosis to [facility] for continued PT/OT therapy. Patient will be going to [facility] for hemodialysis normally on Wednesday//Wednesday although will start this upcoming Wednesday. Total time taken is 35 minutes. History of present illness This is a 79-year-old male recently admitted congestive heart failure acute exacerbation, acute on chronic systolic dysfunction also with mitral regurgitation and aortic stenosis and is being closely monitored. Patient was also found to be in renal failure requiring hemodialysis and has been receiving hemodialysis almost daily. Patient did receive a permacath for dialysis and will continue with Wednesday//Wednesday treatments although will be receiving a treatment this coming Wednesday. Nephrology following closely. Multiple medical consultations following. Patient's CODE STATUS was discussed in detail as he continues to deteriorate and decline clinically and patient was made a no code. Patient was visited by hospice and patient does not want hospice at this time. Patient is agreeable to hemodialysis although does not want CPR or intubation. Hospice was discussed at multiple times and at length with patient and he states he is not ready for that and he is currently comfortable and not suffering at this time. Patient continues to make multiple comments about just wanting to peacefully although denies any suicidal or homicidal ideation. Patient continues to be quite weak and will require physical therapy for strength and mobility. Attempted to contact next of kin brother multiple times in regards to possible hospice or palliative and unable to reach. Patient has not been eating very well and has been on bed rest. Reassessment of possible hospice and/or palliative is recommended in the outpatient setting. Currently no reports of chest pain, shortness of breath, or palpitations. Patient is afebrile. No reports of nausea or vomiting and patient is tolerating diet when he does eat. Patient is alert and oriented 3. Patient will be discharged today to [facility] with a poor and guarded prognosis. On exam vital signs are stable. Temp is 98.1F, pulse is 66, respirations are 18, blood pressure is 103/55, oxygen saturation is 100 % on 2 L via nasal cannula. Cardio S1, S2 are present. Respiratory system shows minutes breath sounds with some diffuse rhonchi noted. Abdomen is soft and nontender. Nervous system shows moderate diffuse weakness. Please refer to medication reconciliation sheet for a list of medications. Patient Condition at Discharge: Stable Plan - Discharge Summary Discharge Rx Participant: No New Discharge Prescriptions: New Darbepoetin Samson [Aranesp] 60 mcg SQ Q7D syringe Docusate [Colace] 100 mg PO DAILY PRN cap PRN Reason: Constipation HYDROcodone/APAP 5-325MG [Cantrall 5-325] 1 each PO Q6HR PRN #10 tab PRN Reason: Pain Calcium Acetate [PhosLo] 667 mg PO TID-W/MEALS tab Pantoprazole [Protonix] 40 mg PO DAILY tablet. Calcium Carbonate [Tums] 1,000 mg PO BID chew Ergocalciferol [Vitamin D2 (DRISDOL)] 50,000 unit PO Q72H cap Continue Ascorbic Acid [Vitamin C] 500 mg PO BID-W/MEALS tab Tamsulosin [Flomax] 0.4 mg PO BID Rosuvastatin Calcium [Crestor] 40 mg PO DAILY Melatonin 3 mg PO HS Acetaminophen Tab [Tylenol] 500 mg PO Q6HR PRN tab PRN Reason: Fever And/ Or Pain Metoprolol Tartrate [Lopressor] 25 mg PO BID Ferrous Sulfate [Iron (65 MG Elemental)] 325 mg PO BID Ammonium Lactate Cream [Lac-Hydrin 12% Cream] 1 applic TOPICAL BID Bacitracin Oint 1 applic TOPICAL BID PRN PRN Reason: INFECTION Finasteride [Proscar] 5 mg PO DAILY Furosemide [Lasix] 40 mg PO BID@0800,1500 Insulin Aspart [NovoLOG] See Protocol SQ ACHS Ipratropium-Albuterol Nebulize [Duoneb 0.5 mg-3 mg/3 ml Soln] 3 ml INHALATION RT-Q4H PRN PRN Reason: Shortness Of Breath Insulin Glargine,Hum.rec.anlog [Lantus Solostar] 10 unit SQ DAILY #1 pen Albuterol Sulfate [Ventolin HFA] 2 puff INHALATION RT-Q4H PRN PRN Reason: Shortness Of Breath Discontinued Aspirin EC [Ecotrin Low Dose] 81 mg PO HS Apixaban [Eliquis] 5 mg PO BID tab hydrALAZINE HCL 25 mg PO BID Psyllium Husk 100% [Metamucil Packet] 6 gm PO DAILY Sodium Bicarbonate Tab 650 mg PO BID Metolazone [Zaroxolyn] 2.5 mg PO Q48H Discharge Medication List Ascorbic Acid [Vitamin C] 500 mg PO BID-W/MEALS tab 12/20/18 [Rx] Melatonin 3 mg PO HS 01/13/19 [History] Rosuvastatin Calcium [Crestor] 40 mg PO DAILY 01/13/19 [History] Tamsulosin [Flomax] 0.4 mg PO BID 01/13/19 [History] Acetaminophen Tab [Tylenol] 500 mg PO Q6HR PRN tab 01/25/19 [Rx] Metoprolol Tartrate [Lopressor] 25 mg PO BID 06/05/19 [History] Ferrous Sulfate [Iron (65 MG Elemental)] 325 mg PO BID 07/27/19 [History] Ammonium Lactate Cream [Lac-Hydrin 12% Cream] 1 applic TOPICAL BID 10/30/19 [History] Bacitracin Oint 1 applic TOPICAL BID PRN 10/30/19 [History] Finasteride [Proscar] 5 mg PO DAILY 10/30/19 [History] Furosemide [Lasix] 40 mg PO BID@0800,1500 10/30/19 [History] Insulin Aspart [NovoLOG] See Protocol SQ ACHS 10/30/19 [History] Ipratropium-Albuterol Nebulize [Duoneb 0.5 mg-3 mg/3 ml Soln] 3 ml INHALATION RT-Q4H PRN 10/30/19 [History] Insulin Glargine,Hum.rec.anlog [Lantus Solostar] 10 unit SQ DAILY #1 pen 11/05/19 [Rx] Albuterol Sulfate [Ventolin HFA] 2 puff INHALATION RT-Q4H PRN 12/26/19 [History] Calcium Acetate [PhosLo] 667 mg PO TID-W/MEALS tab 01/12/20 [Rx] Calcium Carbonate [Tums] 1,000 mg PO BID chew 01/12/20 [Rx] Darbepoetin Samson [Aranesp] 60 mcg SQ Q7D syringe 01/12/20 [Rx] Docusate [Colace] 100 mg PO DAILY PRN cap 01/12/20 [Rx] Ergocalciferol [Vitamin D2 (DRISDOL)] 50,000 unit PO Q72H cap 01/12/20 [Rx] HYDROcodone/APAP 5-325MG [Cantrall 5-325] 1 each PO Q6HR PRN #10 tab 01/12/20 [Rx] Pantoprazole [Protonix] 40 mg PO DAILY tablet. 01/12/20 [Rx] Follow up Appointment(s)/Referral(s): Raul Morrison, [NON-STAFF] - 1-2 Days [facility],Clinic [Primary Care Provider] - 1-2 days Activity/Diet/Wound Care/Special Instructions: -Hemodialysis - [facility] - Wednesday, , Wednesday @7:30 a.m. -First treatment will be 01/15/20 @12:30 Activity as tolerated Continue with heart healthy consistent carb ground meat diet and low potassium Continue dialysis Continue monitoring blood sugar before meals at bedtime and treat accordingly with sliding scale, hold long acting insulin if blood sugar is less than 120 in the evening Discharge Disposition: TRANSFER TO SNF/ECF
--- NOTE | 2020-01-12 13:06 | PN ---
PROGRESS NOTE Patient is seen for followup for acute kidney injury on top of chronic kidney disease, currently hemodialysis dependent. Yesterday, patient stated that he did not want to continue any more aggressive medical treatment and therefore dialysis was held. He stated that he felt he was going to soon. This morning he is awake, comfortable. He states that he would like to continue with dialysis at this point. There are plans for possible discharge to retirement. Patient has been fairly stable, otherwise. PHYSICAL EXAMINATION: Today, he is seen on dialysis tolerating his treatment well. Blood pressure was 103/55, heart rate 66 per minute, he is afebrile. Examination shows no edema in his lower extremities. Abdomen is soft, nontender. Patient is awake. He is arousable but goes back to sleep. There is no bleeding from his IJ PermCath. BUSINESS EDUCATION PROFESSOR exam otherwise grossly intact. LABS: Show sodium 136, potassium 5.0, BUN 39, creatinine 2.83, hemoglobin 7.8. ASSESSMENT: 1. Acute kidney injury currently hemodialysis dependent. Will continue with hemodialysis as outpatient for now. 2. Volume overload, now resolved. 3. Hyperkalemia improved post regular dialysis treatments. 4. History of chronic kidney disease stage IV, previous creatinine about 2 mg/dL. 5. Generalized debility. 6. Gastrointestinal bleed. No active bleeding noted at this time. Hemoglobin has been stable. Patient is maintained on Aranesp. 7. Hyperphosphatemia secondary to renal failure, maintained on PhosLo. PLAN: Hemodialysis today and then patient is stable for discharge from nephrology standpoint. He will follow up as outpatient for dialysis and if there is any change in his code status or his wishes to continue with renal replacement therapy, we will address it as outpatient. MMODL / IJN: [id number] /
[2020-01-12 14:25] VITALS: BP 110/69; PULSE 86; TEMP 97.9
--- NOTE | 2020-01-15 10:05 | CDI ---
Documentation Clarification Form Date: 01/15/20 From: Crystal Pino Phone: If you have a question about this query, please contact Marci Burgess, [employer] Machine Operator Helper at [phone] between 8am and 5pm. Admit Date: 12/26/19 Discharge Date: 01/12/20 Patient Name: VERENICE VILLALOBOS Visit Number: [id number] ATTENTION: The Clinical Documentation Specialists (CDI) and [facility] Coding Staff appreciate your assistance in clarifying documentation. Please respond to the clarification below the line at the bottom and electronically sign. The CDI & [facility] Coding staff will review the response and follow-up if needed. Please note: Queries are made part of the Legal Health Record. If you have any questions, please contact the author of this message via ITS. Dear Dr. Bill Myrick, Atrial Flutter is documented in the ED note, your progress notes and Dr Dobbs/Ml progress notes. History/Risk factors: Acute on chronic systolic CHF, Chronic Atrial Fibrillation on Eliquis, Hypertension, Hyperlipidemia, CKD IV, Iron Deficiency Anemia, CKD anemia, CAD status post CABG W atrial appendage clipping, IDDM II w CKD, PAD & hypoglycemia Clinical Indicators: Presented with SOB. EKG/telemetry: First EKG - Sinus rhythm with first-degree AV block.Premature atrial.Left axis deviation.Right bundle branch block. Inferior infarct age undetermined.Abnormal EKG. Ventricular rate of 60-70 beats Intervals 242 ms. QRS duration is 148 ms. QT QTc is 506/546 ms. Second EKG- right bundle branch block with left anterior fascicular block.Particular undetermined. Ventricular rate of 90 bpm.Muslim is 154 ms. QT QTc is 420/423 ms Treatment: Eliquis on hold due to positive occult stool-restarted 12/31 In your professional opinion, in order to capture the severity of condition; can you please clarify the type of Atrial Flutter if known? XXX Typical/Type I Atypical/Type II Other, please specify Unable to determine MTDD
--- NOTE | 2020-01-15 10:22 | CDI ---
Documentation Clarification Form Date: 01/15/20 From: Crystal Pino Phone: If you have a question about this query, please contact Marci Burgess, Business Support Professional at [phone] between 8am and 5pm. Admit Date: 12/26/19 Discharge Date: 01/12/20 Patient Name: VERENICE VILLALOBOS Visit Number: [id number] ATTENTION: The Clinical Documentation Specialists (CDI) and [facility] Coding Staff appreciate your assistance in clarifying documentation. Please respond to the clarification below the line at the bottom and electronically sign. The CDI & [facility] Coding staff will review the response and follow-up if needed. Please note: Queries are made part of the Legal Health Record. If you have any questions, please contact the author of this message via ITS. Dear Dr. Collin Jacob, Patient presented with troponin of: 0.088, 0.111, 0.259 Patient history/risk factors: chronic atrial fibrillation and atrial flutter, acute on chronic systolic CHF w HTN and CKD IV, gram-neg pneumonia, pneumothorax, DM-CKD, PAD & hypoglycemia, Clinical indicators: Per your consult, troponin leak, likely attributed to an acute STEMI, consider troponin leak secondary to comorbidities listed in your consult. Treatment: echo, cardiology consult, nephro consult In your professional opinion, can you please specify the diagnosis, if any, indicated by the above clinical indicators and treatment? Type II KS STEMI KS ruled out, abnormal troponins Other, please specify Unable to determine I don't know and i will defer this to cardiology. SAIDA
--- NOTE | 2020-01-18 10:29 | CDI ---
Documentation Clarification Form Date: 01/18/20 From: Crystal Pino Phone: If you have a question about this query, please contact Marci Burgess, Clinical Pathologist at [phone] between 8am and 5pm. Admit Date: 12/26/19 Discharge Date: 01/12/20 Patient Name: VERENICE VILLALOBOS Visit Number: [id number] ATTENTION: The Clinical Documentation Specialists (CDI) and [facility] Coding Staff appreciate your assistance in clarifying documentation. Please respond to the clarification below the line at the bottom and electronically sign. The CDI & [facility] Coding staff will review the response and follow-up if needed. Please note: Queries are made part of the Legal Health Record. If you have any questions, please contact the author of this message via ITS. Dear Dr. Bill Myrick, Dr Jacob has deferred to you. Please kindly answer. Patient presented with troponin of: 0.088, 0.111, 0.259 Patient history/risk factors: chronic atrial fibrillation and atrial flutter, acute on chronic systolic CHF w HTN and CKD IV, gram-neg pneumonia, pneumothorax, DM-CKD, PAD & hypoglycemia, Clinical indicators: Per your consult, troponin leak, likely attributed to an acute STEMI, consider troponin leak secondary to comorbidities listed in your consult. Treatment: echo, cardiology consult, nephro consult In your professional opinion, can you please specify the diagnosis, if any, indicated by the above clinical indicators and treatment? Type II VA STEMI XXXX VA ruled out, abnormal troponins Other, please specify Unable to determine MTDD
--- NOTE | 2020-01-18 10:53 | CDI ---
Documentation Clarification Form Date: 01/18/20 From: Crystal Pino Phone: If you have a question about this query, please contact Marci Burgess, Manager Business Process at [phone] between 8am and 5pm. Admit Date: 12/26/19 Discharge Date: 01/12/20 Patient Name: VERENICE VILLALOBOS Visit Number: [id number] ATTENTION: The Clinical Documentation Specialists (CDI) and [facility] Coding Staff appreciate your assistance in clarifying documentation. Please respond to the clarification below the line at the bottom and electronically sign. The CDI & [facility] Coding staff will review the response and follow-up if needed. Please note: Queries are made part of the Legal Health Record. If you have any questions, please contact the author of this message via ITS. Dear Dr. Kala Laboy, Per History & Physical & subsequent Progress Notes through 12/30: "Today patient got 1 L of normal saline for possible sepsis although there was some suspicion of fluid in the chest x-ray by paint trimmer pipe bowls." Per 12/31 through 01/03 Nephrology Progress Notes: "Acute kidney injury secondary to ATN secondary to volume depletion and sepsis." History/Risk Factors:HTN w acute on chronic systolic CHF & CKD III, Chronic Atrial Fibrillation, Hyperlipidemia, Anemia of CKD, CAD status post CABG, IDDM II. Clinical Indicators: Presented to the ED on 12/25 with dyspnea for a week & feeling cold, cough with clear phlegm. Diagnosed with Gram Negative Pneumonia & Possible Sepsis. VS 12/25: T 97.2*, P 75, R 22 (sob), BP 122/68, PO 97 RA LAB 12/25: WBC 23.2^, Neut 21.9^, K 6.7^^, BUN 197^^, Cr 9.26^^, Lactic Acid (1.2) ABG 12/25: pH 7.13, pCO2 22*, pO2 118^, HCO3 7, Total CO2 8*, O2 Sat 97.1^ Blood culture 12/25: Negative (final). Treatment: Albuterol updrafts, IV fluid bolus 500 mls@999/hr, IV fluid 1,000 mls @75/hr, IV Azithromycin, IV Rocephin, IV Dextrose/Water, IV Insulin, IV NaBicarb, IV Heparin drip, IV Calcium Gluconate. O2 2Lnc. In your professional opinion, please clarify if these findings signify one of the following conditions, whether the condition is POA, and cause, if known: Sepsis ruled out Sepsis With Severe Sepsis With Septic Shock Other, please specify Unable to determine Present on Admission Yes No Sepsis MTDD
== END 2020-01-12 13:39 | DRG 871 ==
LOC: EC 19:22 → 3SCARD 21:38 → 2SICU 12-27 00:34 → 3SCARD 01-03 19:40
PROVIDERS: ADMIT Internal Medicine; ATTEND Internal Medicine
PROC: 0W993ZX Drainage of Right Pleural Cavity, Percutaneous Approach, Diagnostic (ICD-10-PCS; principal; 2019-12-29)
PROC: 5A1D70Z Performance of Urinary Filtration, Intermittent, Less than 6 Hours Per Day (ICD-10-PCS; 2020-01-02)
PROC: 06HY33Z Insertion of Infusion Device into Lower Vein, Percutaneous Approach (ICD-10-PCS; 2020-01-02)
PROC: 30233N1 Transfusion of Nonautologous Red Blood Cells into Peripheral Vein, Percutaneous Approach (ICD-10-PCS; 2020-01-07)
PROC: 02HV33Z Insertion of Infusion Device into Superior Vena Cava, Percutaneous Approach (ICD-10-PCS; 2020-01-09 09:05)
PROC: 06PYX3Z Removal of Infusion Device from Lower Vein, External Approach (ICD-10-PCS; 2020-01-09 09:05)
DX: A41.9 Sepsis, unspecified organism (principal); I50.23 Acute on chronic systolic (congestive) heart failure; N17.0 Acute kidney failure with tubular necrosis; J96.01 Acute respiratory failure with hypoxia; J15.6 Pneumonia due to other Gram-negative bacteria; I13.0 Hypertensive heart and chronic kidney disease with heart failure and stage 1 through stage 4 chronic kidney disease, or unspecified chronic kidney disease; N18.4 Chronic kidney disease, stage 4 (severe); I45.2 Bifascicular block; E87.2 Acidosis; J91.8 Pleural effusion in other conditions classified elsewhere; J93.83 Other pneumothorax; J94.8 Other specified pleural conditions; I48.20 Chronic atrial fibrillation, unspecified; K92.2 Gastrointestinal hemorrhage, unspecified; I48.3 Typical atrial flutter; I42.9 Cardiomyopathy, unspecified; R65.20 Severe sepsis without septic shock; E11.649 Type 2 diabetes mellitus with hypoglycemia without coma; E11.22 Type 2 diabetes mellitus with diabetic chronic kidney disease; E11.51 Type 2 diabetes mellitus with diabetic peripheral angiopathy without gangrene; Z79.4 Long term (current) use of insulin; Z99.2 Dependence on renal dialysis; Z66 Do not resuscitate; Z20.828 Contact with and (suspected) exposure to other viral communicable diseases; E83.51 Hypocalcemia; D63.1 Anemia in chronic kidney disease; E83.39 Other disorders of phosphorus metabolism; E83.9 Disorder of mineral metabolism, unspecified; I95.9 Hypotension, unspecified; E86.1 Hypovolemia; D50.0 Iron deficiency anemia secondary to blood loss (chronic); E55.9 Vitamin D deficiency, unspecified; E78.5 Hyperlipidemia, unspecified; I87.2 Venous insufficiency (chronic) (peripheral); N40.0 Benign prostatic hyperplasia without lower urinary tract symptoms; E87.5 Hyperkalemia; M19.90 Unspecified osteoarthritis, unspecified site; K21.9 Gastro-esophageal reflux disease without esophagitis; I08.0 Rheumatic disorders of both mitral and aortic valves; I25.2 Old myocardial infarction; M25.512 Pain in left shoulder; M54.9 Dorsalgia, unspecified; I25.10 Atherosclerotic heart disease of native coronary artery without angina pectoris; R79.89 Other specified abnormal findings of blood chemistry; R26.9 Unspecified abnormalities of gait and mobility; Z79.01 Long term (current) use of anticoagulants; Z79.82 Long term (current) use of aspirin; Z79.899 Other long term (current) drug therapy; Z87.891 Personal history of nicotine dependence; Z98.890 Other specified postprocedural states; Z95.1 Presence of aortocoronary bypass graft; Z95.5 Presence of coronary angioplasty implant and graft; Z98.42 Cataract extraction status, left eye; Z98.41 Cataract extraction status, right eye; Z96.1 Presence of intraocular lens; Z88.8 Allergy status to other drugs, medicaments and biological substances; Z82.49 Family history of ischemic heart disease and other diseases of the circulatory system; Z81.8 Family history of other mental and behavioral disorders
CPT/HCPCS: 36415; 36558; 36600; 71045; 71046; 71250; 76770; 76937; 77001; 80048; 80053; 81001; 82272; 82306; 82728; 82805; 82945; 83036; 83540; 83550; 83605; 83615; 83735; 83880; 84100; 84132; 84145; 84157; 84484; 85025; 85027; 85379; 85610; 85730; 86140; 86704; 86706; 86850; 86900; 86901; 86920; 87040; 87070; 87075; 87086; 87102; 87116; 87205; 87206; 87252; 87340; 87496; 87498; 87502; 87529; 87634; 87635; 87798; 88108; 88305; 89050; 90935; 93005; 94640; 96361; 96365; 96367; 96375; 96376; 99291

== ENCOUNTER 2020-04-07 10:14 | Inpatient (IN) | payer MEDICARE, BC ==
[2020-04-07 11:54] LABS: Anisocytosis Slight; Basophils % (A) 0 %; Eosinophils % (A) 0 %; HCT 34.9 % (39.0-53.0); HGB 10.6 gm/dL (13.0-17.5); Hypochromasia Slight; Lymphocytes # (A) 0.4 k/uL (1.0-4.8); Lymphocytes % (A) 3 %; MCHC 30.5 g/dL (31.0-37.0); MCV 88.6 fL (80.0-100.0); Mean Platelet Volume 7.7; Monocytes # (A) 0.8 k/uL (0-1.0); Monocytes % (A) 5 %; Neutrophils # (A) 14.9 k/uL (1.3-7.7); Neutrophils % (A) 90 %; Platelet Count 182 k/uL (150-450); RBC 3.94 m/uL (4.30-5.90); RDW 17.5 % (11.5-15.5); WBC 16.5 k/uL (3.8-10.6)
[2020-04-07 12:06] LABS: Albumin 3.2 g/dL (3.5-5.0); Calcium 8.4 mg/dL (8.4-10.2); Potassium 4.8 mmol/L (3.5-5.1); Total Bilirubin 0.7 mg/dL (0.2-1.3)
[2020-04-07 12:07] LABS: INR 1.2 (<1.2); Partial Thromboplastin Time 27.7 sec (22.0-30.0); Prothrombin Time 11.9 sec (9.0-12.0)
--- NOTE | 2020-04-07 13:02 | XR ---
EXAMINATION TYPE: XR Hip LT and AP Pelvis , 4 VIEWS DATE OF EXAM ORDERED: 04/07/2020 HISTORY: pain. COMPARISON: None. FINDINGS: There are degenerative changes within the spine and hips. No pelvic fracture is identified . No left hip fracture is seen. IMPRESSION: 1. NO ACUTE OSSEOUS LESION. 2. DEGENERATIVE CHANGE.
--- NOTE | 2020-04-07 13:05 | XR ---
EXAMINATION TYPE: XR chest 2V DATE OF EXAM: 04/07/2020 HISTORY: Weakness. REFERENCE: Previous study dated 01/09/2020. FINDINGS: There is been a midline sternotomy. There is a large-bore, double-lumen catheter in place v ia a right internal jugular approach. Its tip is at the cavoatrial junction. The heart is enlarged. There is facet the right lung base which may represent a combination of fluid and airspace disease. There is some atelectasis at the left lung base. There is blunting of both CP a ngles. I could not exclude small effusions. IMPRESSION: 1. CARDIOMEGALY. 2. WORSENING OPACITY IN THE RIGHT HEMITHORAX, LIKELY A COMBINATION OF FLUID AND AIRSPACE DISEASE. 3. MILD LEFT BASILAR AIRSPACE DISEASE. 4. I CANNOT EXCLUDE SMALL, BILATERAL EFFUSIONS.
[2020-04-07 13:07] LABS: Appearance,Urine Turbid (Clear); Bacteria,Urine Many /hpf; Bilirubin,Urine Negative (Negative); Blood,Urine Moderate (Negative); Color,Urine Yellow; Glucose,Urine (UA) Negative (Negative); Ketones,Urine Negative (Negative); Leukocyte Esterase,Urine Large (Negative); Mucus,Urine Few /hpf; Nitrite,Urine Negative (Negative); PH, Urine 5.5 (5.0-8.0); Protein,Urine 3+ (Negative); RBC,Urine 154 /hpf (0-5); Specific Gravity,Urine 1.018 (1.001-1.035); Squamous Epithelial Cell,Urine 2 /hpf (0-4); Urobilinogen,Urine <2.0 mg/dL (<2.0); WBC,Urine >182 /hpf (0-5)
[2020-04-07] MEDS ORDERED: LEVOFLOXACIN 750MG-D5W PMX 750 MG in DEXTROSE/WATER 1 150ML.BAG IVPB STA (13:16)
--- NOTE | 2020-04-07 13:22 | ED ---
General Adult HPI - General Chief complaint: Urogenital Stated complaint: Urine Cath issues Time Seen by Provider: 04/07/20 10:35 Source: patient, EMS, RN notes reviewed, old records reviewed Mode of arrival: EMS Limitations: no limitations - History of Present Illness Initial comments: 80-year-old male patient significant stents a past medical history including ESRD on hemodialysis present ED chief complaint of generalized weakness. Any cough congestion chest pain shortness of breath. States that his right hips are hurting little bit. Denies any other acute complaints. Systemic: Pt denies fatigue, fever/chills, rash. Pt denies weakness, night sw eats, weight loss. Neuro: Pt denies headache, visual disturbances, syncope or pre-syncope. HEENT: Pt denies ocular discharge or irritation, otalgia, rhinorrhea, pharyngitis or notable lymphadenopathy. Cardiopulmonary: Pt denies chest pain, SOB, heart palpitations, dyspnea on exertion. Abdominal/GI: Pt denies abdominal pain, n/v/d. : Pt denies dysuria, burning w/ urination, frequency/urgency. Denies new onset urinary or bowel incontinence. MSK: Pt denies myalgia, loss of strength or function in extremities. - Related Data Home Medications Medication Instructions Recorded Confirmed Melatonin 3 mg PO HS 01/13/19 12/26/19 Rosuvastatin Calcium [Crestor] 40 mg PO DAILY 01/13/19 12/26/19 Tamsulosin [Flomax] 0.4 mg PO BID 01/13/19 12/26/19 Metoprolol Tartrate [Lopressor] 25 mg PO BID 02/08/19 12/26/19 Ferrous Sulfate [Iron (65 MG 325 mg PO BID 07/27/19 12/26/19 Elemental)] Ammonium Lactate Cream [Lac-Hydrin 1 applic TOPICAL BID 10/30/19 12/26/19 12% Cream] Bacitracin Zinc Oint 1 applic TOPICAL BID PRN 10/30/19 12/26/19 Finasteride [Proscar] 5 mg PO DAILY 10/30/19 12/26/19 Furosemide [Lasix] 40 mg PO BID@0800,1500 10/30/19 12/26/19 Insulin Aspart [NovoLOG] See Protocol SQ ACHS 10/30/19 12/26/19 Ipratropium-Albuterol Nebulize 3 ml INHALATION RT-Q4H PRN 10/30/19 12/26/19 [Duoneb 0.5 mg-3 mg/3 ml Soln] Albuterol Sulfate [Ventolin HFA] 2 puff INHALATION RT-Q4H PRN 12/26/19 12/26/19 Previous Rx's Medication Instructions Recorded Ascorbic Acid [Vitamin C] 500 mg PO BID-W/MEALS tab 12/20/18 Acetaminophen Tab [Tylenol] 500 mg PO Q6HR PRN tab 01/25/19 Insulin Glargine,Hum.rec.anlog 10 unit SQ DAILY #1 pen 11/05/19 [Lantus Solostar] Calcium Acetate [PhosLo] 667 mg PO TID-W/MEALS tab 01/12/20 Calcium Carbonate [Tums] 1,000 mg PO BID chew 01/12/20 Darbepoetin Samson [Aranesp] 60 mcg SQ Q7D syringe 01/12/20 Docusate [Colace] 100 mg PO DAILY PRN cap 01/12/20 Ergocalciferol [Vitamin D2 50,000 unit PO Q72H cap 01/12/20 (DRISDOL)] HYDROcodone/APAP 5-325MG [[place] 1 each PO Q6HR PRN #10 tab 01/12/20 5-325] Pantoprazole [Protonix] 40 mg PO DAILY tablet. 01/12/20 Allergies Allergy/AdvReac Type Severity Reaction Status Date / Time atorvastatin [From Lipitor] AdvReac MUSCLE/JOINT Verified 04/07/20 10:24 PAIN Review of Systems ROS Statement: Those systems with pertinent positive or pertinent negative responses have been documented in the HPI. ROS Other: All systems not noted in ROS Statement are negative. Past Medical History Past Medical History: Atrial Fibrillation, Coronary Artery Disease (CAD), Heart Failure, Diabetes Mellitus, GERD/Reflux, Hyperlipidemia, Hypertension, Myocardial Infarction (UT), Osteoarthritis (OA), Renal Disease, Vascular Disorder Additional Past Medical History / Comment(s): Pt recently admitted to [facility] on 01/16/19 with bilateral lower extremity cellulitis with multiple ulcers-positive for klebsiella/pseudomonas, uncontrolled diabetes, pleural effusion with R thoracentesis, exacerbation CHF. Other Hx: Paroxysmal Aflutter, PAD, chronic bilateral venous stasis dermatitis, lower extremety infection/blisters, chronic CHF, IDDM type II, BPH, post CABG urinary retention, CRD stage III, Last Myocardial Infarction Date:: 12/08/18 History of Any Multi-Drug Resistant Organisms: None Reported Past Surgical History: Appendectomy, Coronary Bypass/CABG, Heart Catheterization With Stent Additional Past Surgical History / Comment(s): 12/08/18 CABG 4 vessels, PCI with stents 2004, cardioversion for Aflutter, bilateral cataract removals/lens implants. Past Anesthesia/Blood Transfusion Reactions: No Reported Reaction Additional Past Anesthesia/Blood Transfusion Reaction / Comment(s): Pt received blood with CABG Date of Last Stent Placement:: 2004 Past Psychological History: No Psychological Hx Reported Past Alcohol Use History: None Reported Past Drug Use History: None Reported - Past Family History Mother Family Medical History: Myocardial Infarction (UT) Additional Family Medical History / Comment(s): Mother had a UT at the age of 64 Father Additional Family Medical History / Comment(s): Father had mental health issues after a "bad" truck accident. General Exam - General Exam Comments Initial Comments: Constitutional: NAD, AOX3, Pt has pleasant affect. HEENT: NC/AT, trachea midline, neck supple, no lymphadenopathy. External ears appear normal, without discharge. Mucous membranes moist. Eyes PERRLA, EOM intact. There is no scleral icterus. No pallor noted. Cardiopulmonary: RRR, no murmurs, rubs or gallops, no JVD noted. Mild crackles right lung. Otherwise vaughan are clear. Abdominal exam: Abdomen soft and non- distended. Abdomen non-tender to palpation in all 4 quadrants. Bowel sounds active in LLQ. No hepatosplenomegaly. No ecchymosis Neuro: CN II-XII intact. No nuchal rigidity. No raccon eyes, no reardon sign, no hemotympanum. No cervical spinal tenderness. MSK: Full active ROM in upper and lower extremities, 5/5 stregnth. Limitations: no limitations Course Vital Signs 04/07/20 04/07/20 04/07/20 10:17 10:21 10:30 Temperature 98.4 F Pulse Rate 83 Respiratory 18 Rate Blood Pressure 112/75 112/75 O2 Sat by Pulse 89 L 93 L 96 Oximetry 04/07/20 04/07/20 04/07/20 10:31 11:00 11:30 Temperature Pulse Rate 82 82 Respiratory 12 16 Rate Blood Pressure 116/74 111/69 O2 Sat by Pulse 96 99 100 Oximetry 04/07/20 04/07/20 04/07/20 12:00 12:30 13:00 Temperature Pulse Rate 83 83 80 Respiratory 14 18 16 Rate Blood Pressure 117/72 126/71 126/65 O2 Sat by Pulse 98 98 Oximetry 04/07/20 13:30 Temperature Pulse Rate 84 Respiratory 16 Rate Blood Pressure 77/61 O2 Sat by Pulse 97 Oximetry Medical Decision Making - Medical Decision Making 80-year-old male patient ESRD hemodialysis [place] chief complaint generalized weakness. Physical exam displayed some crackles in the right lung. Left inves tigations would leukocytosis UTI chronic kidney disease which is baseline. Chest x-ray diddisplay fluid overload pneumonia right lung. Plain film right lower hip displayed no acute process. Patient shade on Zosyn and vancomycin. Pneumonia diagnosed 131. HTV admitted for IV antibiotics further evaluation. Case discussed and pt seen by Dr. Riley. - Lab Data Result diagrams: 04/07/20 11:42 04/07/20 11:42 Lab Results 04/07/20 04/07/20 04/07/20 Range/Units 11:42 11:42 11:42 WBC 16.5 H (3.8-10.6) k/uL RBC 3.94 L (4.30-5.90) m/uL Hgb 10.6 L (13.0-17.5) gm/dL Hct 34.9 L (39.0-53.0) % MCV 88.6 (80.0-100.0) fL MCH 27.0 (25.0-35.0) pg MCHC 30.5 L (31.0-37.0) g/dL RDW 17.5 H (11.5-15.5) % Plt Count 182 (150-450) k/uL Neutrophils % 90 % Lymphocytes % 3 % Monocytes % 5 % Eosinophils % 0 % Basophils % 0 % Neutrophils # 14.9 H (1.3-7.7) k/uL Lymphocytes # 0.4 L (1.0-4.8) k/uL Monocytes # 0.8 (0-1.0) k/uL Eosinophils # 0.0 (0-0.7) k/uL Basophils # 0.0 (0-0.2) k/uL Hypochromasia Slight Anisocytosis Slight PT 11.9 (9.0-12.0) sec INR 1.2 H (<1.2) APTT 27.7 (22.0-30.0) sec Sodium 136 L (137-145) mmol/L Potassium 4.8 (3.5-5.1) mmol/L Chloride 94 L (98-107) mmol/L Carbon Dioxide 28 (22-30) mmol/L Anion Gap 14 mmol/L BUN 53 H (9-20) mg/dL Creatinine 3.77 H (0.66-1.25) mg/dL Est GFR (CKD-EPI)AfAm 17 (>60 ml/min/1.73 sqM) Est GFR (CKD-EPI)NonAf 14 (>60 ml/min/1.73 sqM) Glucose 99 (74-99) mg/dL Plasma Lactic Acid Gutierrez (0.7-2.0) mmol/L Calcium 8.4 (8.4-10.2) mg/dL Total Bilirubin 0.7 (0.2-1.3) mg/dL AST 121 H (17-59) U/L ALT 77 H (4-49) U/L Alkaline Phosphatase 254 H (38-126) U/L Total Protein 6.0 L (6.3-8.2) g/dL Albumin 3.2 L (3.5-5.0) g/dL Urine Color Urine Appearance (Clear) Urine pH (5.0-8.0) Ur Specific [place] (1.001-1.035) Urine Protein (Negative) Urine Glucose (UA) (Negative) Urine Ketones (Negative) Urine Blood (Negative) Urine Nitrite (Negative) Urine Bilirubin (Negative) Urine Urobilinogen (<2.0) mg/dL Ur Leukocyte Esterase (Negative) Urine RBC (0-5) /hpf Urine WBC (0-5) /hpf Ur Squamous Epith Cells (0-4) /hpf Urine Bacteria (None) /hpf Urine Mucus (None) /hpf 04/07/20 04/07/20 Range/Units 11:42 12:40 WBC (3.8-10.6) k/uL RBC (4.30-5.90) m/uL Hgb (13.0-17.5) gm/dL Hct (39.0-53.0) % MCV (80.0-100.0) fL MCH (25.0-35.0) pg MCHC (31.0-37.0) g/dL RDW (11.5-15.5) % Plt Count (150-450) k/uL Neutrophils % % Lymphocytes % % Monocytes % % Eosinophils % % Basophils % % Neutrophils # (1.3-7.7) k/uL Lymphocytes # (1.0-4.8) k/uL Monocytes # (0-1.0) k/uL Eosinophils # (0-0.7) k/uL Basophils # (0-0.2) k/uL Hypochromasia Anisocytosis PT (9.0-12.0) sec INR (<1.2) APTT (22.0-30.0) sec Sodium (137-145) mmol/L Potassium (3.5-5.1) mmol/L Chloride (98-107) mmol/L Carbon Dioxide (22-30) mmol/L Anion Gap mmol/L BUN (9-20) mg/dL Creatinine (0.66-1.25) mg/dL Est GFR (CKD-EPI)AfAm (>60 ml/min/1.73 sqM) Est GFR (CKD-EPI)NonAf (>60 ml/min/1.73 sqM) Glucose (74-99) mg/dL Plasma Lactic Acid Gutierrez 1.0 (0.7-2.0) mmol/L Calcium (8.4-10.2) mg/dL Total Bilirubin (0.2-1.3) mg/dL AST (17-59) U/L ALT (4-49) U/L Alkaline Phosphatase (38-126) U/L Total Protein (6.3-8.2) g/dL Albumin (3.5-5.0) g/dL Urine Color Yellow Urine Appearance Turbid (Clear) Urine pH 5.5 (5.0-8.0) Ur Specific [place] 1.018 (1.001-1.035) Urine Protein 3+ H (Negative) Urine Glucose (UA) Negative (Negative) Urine Ketones Negative (Negative) Urine Blood Moderate H (Negative) Urine Nitrite Negative (Negative) Urine Bilirubin Negative (Negative) Urine Urobilinogen <2.0 (<2.0) mg/dL Ur Leukocyte Esterase Large H (Negative) Urine RBC 154 H (0-5) /hpf Urine WBC >182 H (0-5) /hpf Ur Squamous Epith Cells 2 (0-4) /hpf Urine Bacteria Many H (None) /hpf Urine Mucus Few H (None) /hpf Disposition Clinical Impression: Pneumonia, UTI (urinary tract infection) Disposition: ADMITTED IP TO THIS HOSP Condition: Serious Is patient prescribed a controlled substance at d/c from ED?: No
[2020-04-07] MEDS ORDERED: NALOXONE 0.4 MG/ML 1 ML VIAL IV PRN (13:23)
[2020-04-07] MEDS ORDERED: SODIUM CHLORIDE 0.9% 500 ML 500 ML IV ONE ×2 (14:10→14:52)
[2020-04-07] MEDS: PIPERACILLIN-TAZOBACTAM 3.375 GM in SODIUM CHLORIDE 0.9% 100 ML IVPB SCH (15:37)
[2020-04-07] MEDS ORDERED: HYDROmorphone 0.5 MG/0.5 ML SYRINGE IVP PRN (15:43)
[2020-04-07] MEDS ORDERED: PIPERACILLIN-TAZOBACTAM 3.375 GM in SODIUM CHLORIDE 0.9% 100 ML IVPB SCH (16:00)
[2020-04-07 16:35] LABS: Glucose,Whole Blood 118 mg/dL (75-99)
[2020-04-07] MEDS ORDERED: ONDANSETRON 4 MG TAB PO PRN (17:51)
[2020-04-07] MEDS ORDERED: ACETAMINOPHEN TAB 500 MG TAB PO PRN (17:51)
[2020-04-07] MEDS ORDERED: DOCUSATE 100 MG CAP PO PRN (17:51)
[2020-04-07] MEDS ORDERED: BACITRACIN ZINC 500 UNIT/GM OINT 28.4 GM TUBE TOPICAL PRN (17:51)
[2020-04-07] MEDS ORDERED: AMMONIUM LACTATE 12% CREAM 140 GM TUBE TOPICAL PRN (17:51)
[2020-04-07] MEDS ORDERED: IPRATROPIUM-ALBUTEROL 3 ML NEB INHALATION PRN (17:52)
[2020-04-07] MEDS: FUROSEMIDE 10 MG/ML 4 ML VIAL IV SCH (18:38)
[2020-04-07] MEDS: IPRATROPIUM-ALBUTEROL 3 ML NEB INHALATION SCH (18:51)
[2020-04-07 20:27] LABS: Glucose,Whole Blood 157 mg/dL (75-99)
[2020-04-07] MEDS: METOPROLOL TARTRATE 25 MG TAB PO SCH (21:57)
[2020-04-07] MEDS: CALCIUM CARBONATE 500 MG CHEWABLE PO SCH (21:57)
[2020-04-07] MEDS: INSULIN ASPART (NovoLOG) 100 UNIT/ML VIAL SQ SCH (21:57)
[2020-04-07] MEDS: APIXABAN 2.5 MG TABLET PO SCH (21:57)
[2020-04-07] MEDS: MELATONIN 5 MG TABLET PO SCH (21:57)
[2020-04-08] MEDS: HYDROcodone/APAP 5-325MG 1 EACH TAB PO PRN ×2 (00:38→09:05)
[2020-04-08] MEDS: FUROSEMIDE 10 MG/ML 4 ML VIAL IV SCH ×3 (00:38→15:53)
--- NOTE | 2020-04-08 02:50 | HP ---
HISTORY AND PHYSICAL CHIEF COMPLAINT: Generalized weakness and shortness of breath. HISTORY OF PRESENT ILLNESS: This 80-year-old gentleman with a past medical history of multiple medical problems including atrial fibrillation, history of CAD, CHF, diabetes, GERD, hypertension, history of chronic kidney disease on hemodialysis being followed by Dr. Perkins in [facility] was recently admitted with CHF acute exacerbation. Currently the patient is receiving hemodialysis. Patient reports the patient is weak and patient apparently fell yesterday after the hemodialysis because of the low blood pressure. The patient also complained of generalized weakness and shortness of breath. Because of multiple complex medical issues, the patient came to [facility] and admitted for further evaluation and treatment. Chest x-ray showed cardiomegaly and as well as possible right pleural effusion versus pneumonia and evidence of CHF. Also the patient was admitted for further evaluation and treatment. There is no history of any fever or rigors. No history of headache, loss of consciousness or seizures. Patient also had multiple UTIs also and cellulitis and ulcers also previously. PAST MEDICAL HISTORY: History of atrial fibrillation, CAD, CHF, diabetes, GERD, hypertension, hyperlipidemia, multiple other medical problems chronically on hemodialysis. MEDICATIONS: Medications prior to admission, home medications are: 1. Eliquis 2.5 mg p.o. b.i.d. 2. Lasix 40 mg b.i.d. 3. Metolazone 2.5 mg q.48 hours. 4. Zofran 4 mg t.i.d. p.r.n. 5. Crestor 10 mg p.o. daily. 6. Protonix 40 mg daily. 7. Lopressor 25 mg b.i.d. 8. Melatonin 5 mg at bedtime. 9. Lantus 10 units subcu daily. 10.NovoLog FlexPen. 11.Proscar 5 mg p.o. daily. 12.Iron sulfate 325 mg p.o. daily. 13.Drisdol 50,000 p.o. q.72 hours. 14.Colace 100 mg p.o. daily p.r.n. 15.Tums 1000 mg p.o. b.i.d. 16.PhosLo 667 p.o. t.i.d. with meals. 17.Bacitracin. 18.Vitamin C 500 mg p.o. b.i.d. with meals. 19.Lac-Hydrin. 20.Ventolin 2 puffs q.4 p.r.n. 21.Tylenol 500 mg q.6 p.r.n. ALLERGIES: LIPITOR. FAMILY HISTORY: History of myocardial infarction. SOCIAL HISTORY: Previous history of smoking. No history of alcohol intake, quit alcohol 1974. REVIEW OF SYSTEMS: ENT: Diminished hearing and diminished vision. CARDIOVASCULAR SYSTEM: As mentioned earlier. RESPIRATORY SYSTEM: As mentioned earlier. GI: No nausea, no vomiting, no diarrhea. : As mentioned earlier. NERVOUS SYSTEM: No numbness or weakness. ALLERGY/IMMUNOLOGY: No asthma or hayfever. MUSCULOSKELETAL: As mentioned earlier. HEMATOLOGY: No history of anemia. ENDOCRINE: Diabetes mellitus. CONSTITUTIONAL: As mentioned earlier. DERMATOLOGY: As mentioned earlier. RHEUMATOLOGY: Negative. PSYCHIATRY: As mentioned earlier. PHYSICAL EXAMINATION: The patient is alert and oriented x2. Pulse 66, blood pressure 113/53, respiration 18, temperature 98.1, pulse ox 98% on 2 L. HEENT: Conjunctivae normal. Oral mucosa moist. NECK: No jugular venous distention. No thyroid enlargement. No carotid bruit. CARDIOVASCULAR: S1, S2 muffled. No S3, no S4. RESPIRATORY: Breath sounds diminished at the bases. A few scattered rhonchi and crackles. ABDOMEN: Soft, obese, nontender. LEGS: Bilateral leg edema. NERVOUS SYSTEM: Diffusely weak. SKIN: Significant ecchymosis and also skin tear also present. JOINTS: No active deforming arthropathy. LYMPHATICS: No lymphadenopathy of the neck, axillae or groin. LAB INVESTIGATION: WBC 16.5, hemoglobin 10.6, sodium 136, potassium 4.8, creatinine 3.77. AST is 121, ALT 77. Albumin is 3.2. UA noted. ASSESSMENT: 1. Shortness of breath possibly multifactorial with congestive heart failure acute exacerbation with acute on chronic systolic dysfunction ejection fraction 45% with moderate mitral regurgitation, aortic stenosis. 2. Possible right pleural effusion. 3. Chronic kidney disease end-stage renal disease on hemodialysis. 4. Increased WBC. 5. Anemia, normocytic. 6. Rule out right lower lobe pneumonia. 7. Hyponatremia. 8. Elevated AST, ALT. 9. Rule out urinary tract infection. 10.Atrial fibrillation chronic. 11.History of coronary artery disease. 12.History of congestive heart failure. 13.Diabetes mellitus type 2. 14.Gastroesophageal reflux disease. 15.Hypertension. 16.Hyperlipidemia. 17.Myocardial infarction. 18.History of degenerative joint disease. 19.History of bilateral lower extremity cellulitis, ulcers with Klebsiella, Pseudomonas. 20.History of diabetes, uncontrolled. 21.History of pleural effusion with right thoracocentesis. 22.History of paroxysmal atrial flutter. 23.Peripheral vascular disease. 24.History of benign prostatic hypertrophy. 25.History of coronary artery disease, coronary artery bypass grafting. 26.History of urinary retention. 27.History of coronary artery disease, stent. 28.Obesity with body mass index 30.7. 29.FULL CODE. RECOMMENDATIONS AND DISCUSSION: In this 80-year-old gentleman who presented with multiple complex medical issues, we will monitor the patient closely. Continue the current medications, continue symptomatic treatment. Will initiate home medications. Nephrology consultation. I would recommend empiric antibiotics. Otherwise also recommend pulmonary consultation for possible thoracocentesis. Continue the hemodialysis. The rest of the home medications. Cultures will be done. The prognosis is extremely guarded because of multiple complex medical issues. Further recommendations to follow. A copy of dictation forwarded to Dr. Perkins who is the primary physician. MMODL / IJN: [id number] /
[2020-04-08] MEDS: PIPERACILLIN-TAZOBACTAM 3.375 GM in SODIUM CHLORIDE 0.9% 100 ML IVPB SCH ×2 (04:41→14:06)
[2020-04-08 06:13] LABS: Glucose,Whole Blood 81 mg/dL (75-99)
[2020-04-08] MEDS: INSULIN ASPART (NovoLOG) 100 UNIT/ML VIAL SQ SCH ×4 (06:47→21:18)
[2020-04-08] MEDS: PANTOPRAZOLE 40 MG TABLET PO SCH (06:49)
[2020-04-08] MEDS: ASCORBIC ACID 500 MG TAB PO SCH ×2 (06:49→17:33)
[2020-04-08] MEDS: CALCIUM ACETATE 667 MG TAB PO SCH ×3 (06:49→17:33)
--- NOTE | 2020-04-08 07:35 | XR ---
EXAMINATION TYPE: XR chest 1V portable DATE OF EXAM: 04/08/2020 CLINICAL HISTORY: Difficulty breathing and CHF progress study. TECHNIQUE: Single AP portable upright view of the chest is obtained. COMPARISON: Chest x-ray from one day earlier and older studies. FINDINGS: Stable large bore right internal jugular dual lumen dialysis catheter. Overlying sternal w ires and mediastinal clips along with atrial appendage clipping all redemonstrated. Persistent small to moderate size right greater than left bilateral pleural effusions along with central vascular rose marie estion and cardiomegaly. Osseous structures remain demineralized. IMPRESSION: Findings consistent with CHF exacerbation or fluid overload state remain present as there is cardiomegaly with central vascular congestion and small to moderate size right greater than left pleural effusions are all redemonstrated. No significant change from one day earlier.
[2020-04-08 07:40] LABS: Anisocytosis Slight; Basophils % (A) 0 %; Eosinophils % (A) 0 %; HCT 32.5 % (39.0-53.0); HGB 9.9 gm/dL (13.0-17.5); Hypochromasia Moderate; Lymphocytes # (A) 0.4 k/uL (1.0-4.8); Lymphocytes % (A) 3 %; MCHC 30.4 g/dL (31.0-37.0); Mean Platelet Volume 7.6; Monocytes # (A) 0.8 k/uL (0-1.0); Monocytes % (A) 6 %; Neutrophils # (A) 11.6 k/uL (1.3-7.7); Neutrophils % (A) 89 %; Platelet Count 168 k/uL (150-450); RBC 3.65 m/uL (4.30-5.90); RDW 17.5 % (11.5-15.5); WBC 13.1 k/uL (3.8-10.6)
[2020-04-08 07:55] LABS: Calcium 7.7 mg/dL (8.4-10.2); Potassium 4.9 mmol/L (3.5-5.1)
[2020-04-08] MEDS: IPRATROPIUM-ALBUTEROL 3 ML NEB INHALATION SCH ×3 (07:56→21:24)
[2020-04-08] MEDS: METOPROLOL TARTRATE 25 MG TAB PO SCH ×2 (09:01→21:18)
[2020-04-08] MEDS: FERROUS SULFATE 325 MG TAB PO SCH (09:01)
[2020-04-08] MEDS: CALCIUM CARBONATE 500 MG CHEWABLE PO SCH ×2 (09:01→21:18)
[2020-04-08] MEDS: FINASTERIDE 5 MG TAB PO SCH (09:01)
[2020-04-08] MEDS: INSULIN DETEMIR (LEVEMIR) 100 UNIT/ML SYR SQ SCH (09:01)
[2020-04-08] MEDS: APIXABAN 2.5 MG TABLET PO SCH ×2 (09:02→21:18)
[2020-04-08] MEDS: metOLazone 2.5 MG TAB PO SCH (09:02)
[2020-04-08] MEDS: NON FORMULARY DRUG (Rosuvastatin 10 MG) PO SCH (09:02)
--- NOTE | 2020-04-08 09:59 | P.CRDCN ---
History of Present Illness Consult date: 04/08/20 Chief complaint: Generalized weakness and fatigue History of present illness: This is another admission for this 80-year-old gentleman with an extensive medical history. He does have a past medical history consistent off coronary artery disease and prior coronary artery bypass grafting, mild cardiomyopathy with an ejection fraction around 45%, mild aortic stenosis, hypertension, dyslipidemia, long-standing persistent atrial fibrillation, and history of heart failure with low ejection fraction as well as in stage renal disease on dialysis. We consulted to see the patient for further evaluation of heart failure. The patient stated that after the last dialysis he was feeling weak and tired and fatigued and has no energy. He did not have any presyncope or syncope. No dizziness or lightheadedness. No symptoms of chest pain or chest discomfort. He does have shortness of breath with exertion but he stated that it has been the same and unchanged compared to before. He did have mild increase in the lower extremities edema over the last few days. We consulted to see the patient for heart failure. When the patient was seen this morning he seems to be euvolemic. He was laying flat in bed. He does have clear breathing sounds bilaterally. He does have irregular rhythm with a systolic murmur at the right and left upper sternal border consistent with aortic stenosis. The EKG showed atrial fibrillation/atrial flutter with T-wave inversion across the chest bleed. The troponin was not checked. The chest x-ray showed findings consistent was congestive heart failure. Earlier this year he was admitted to the hospital was heart failure and an echocardiogram was performed and revealed mildly impaired LV function was EF around 45% with evidence of mild aortic stenosis. Currently the patient is in process of being seen by the nephrology service. Also his pressure has been marginal throughout the hospital stay. I'm going to obtain orthostatic blood pressure on him. Past Medical History Past Medical History: Atrial Fibrillation, Coronary Artery Disease (CAD), Heart Failure, Diabetes Mellitus, GERD/Reflux, Hyperlipidemia, Hypertension, Myocardial Infarction (NV), Osteoarthritis (OA), Renal Disease, Vascular Disorder Additional Past Medical History / Comment(s): Pt recently admitted to [facility] on 01/16/19 with bilateral lower extremity cellulitis with multiple ulcers-positive for klebsiella/pseudomonas, uncontrolled diabetes, pleural effusion with R thoracentesis, exacerbation CHF. Other Hx: Paroxysmal Aflutter, PAD, chronic bilateral venous stasis dermatitis, lower extremety infection/blisters, chronic CHF, IDDM type II, BPH, post CABG urinary retention, CRD stage III, Last Myocardial Infarction Date:: 12/08/18 History of Any Multi-Drug Resistant Organisms: None Reported Past Surgical History: Appendectomy, Coronary Bypass/CABG, Heart Catheterization With Stent Additional Past Surgical History / Comment(s): 12/08/18 CABG 4 vessels, PCI with stents 2004, cardioversion for Aflutter, bilateral cataract removals/lens implants. Past Anesthesia/Blood Transfusion Reactions: No Reported Reaction Additional Past Anesthesia/Blood Transfusion Reaction / Comment(s): Pt received blood with CABG Date of Last Stent Placement:: 2004 Past Psychological History: No Psychological Hx Reported Past Alcohol Use History: None Reported Past Drug Use History: None Reported - Past Family History Mother Family Medical History: Myocardial Infarction (NV) Additional Family Medical History / Comment(s): Mother had a NV at the age of 64 Father Additional Family Medical History / Comment(s): Father had mental health issues after a "bad" truck accident. Medications and Allergies Home Medications Medication Instructions Recorded Confirmed Type Ascorbic Acid [Vitamin C] 500 mg PO BID-W/MEALS tab 12/20/18 04/07/20 Rx Acetaminophen Tab [Tylenol] 500 mg PO Q6HR PRN tab 01/25/19 04/07/20 Rx Metoprolol Tartrate [Lopressor] 25 mg PO BID 02/08/19 04/07/20 History Ferrous Sulfate [Iron (65 MG 325 mg PO DAILY 07/27/19 04/07/20 History Elemental)] Ammonium Lactate Cream [Lac-Hydrin 1 applic TOPICAL BID PRN 10/30/19 04/07/20 History 12% Cream] Bacitracin Zinc Oint 1 applic TOPICAL BID PRN 10/30/19 04/07/20 History Finasteride [Proscar] 5 mg PO DAILY 10/30/19 04/07/20 History Furosemide [Lasix] 40 mg PO BID@0800,1500 10/30/19 04/07/20 History Insulin Glargine,Hum.rec.anlog 10 unit SQ DAILY #1 pen 11/05/19 04/07/20 Rx [Lantus Solostar] Albuterol Sulfate [Ventolin HFA] 2 puff INHALATION RT-Q4H PRN 12/26/19 04/07/20 History Calcium Acetate [PhosLo] 667 mg PO TID-W/MEALS tab 01/12/20 04/07/20 Rx Calcium Carbonate [Tums] 1,000 mg PO BID chew 01/12/20 04/07/20 Rx Docusate [Colace] 100 mg PO DAILY PRN cap 01/12/20 04/07/20 Rx Ergocalciferol [Vitamin D2 50,000 unit PO Q72H cap 01/12/20 04/07/20 Rx (DRISDOL)] Pantoprazole [Protonix] 40 mg PO DAILY tablet. 01/12/20 04/07/20 Rx Apixaban [Eliquis] 2.5 mg PO BID 04/07/20 04/07/20 History Insulin Aspart [NovoLOG Flexpen] See Protocol SQ TID-W/MEALS 04/07/20 04/07/20 History Melatonin 5 mg PO HS 04/07/20 04/07/20 History Ondansetron [Zofran] 4 mg PO TID PRN 04/07/20 04/07/20 History Rosuvastatin [Crestor] 10 mg PO DAILY 04/07/20 04/07/20 History metOLazone 2.5 mg PO Q48H 04/07/20 04/07/20 History Allergies Allergy/AdvReac Type Severity Reaction Status Date / Time atorvastatin [From Lipitor] AdvReac MUSCLE/JOINT Verified 04/07/20 15:12 PAIN Physical Exam Vitals: Vital Signs Temp Pulse Pulse Resp BP BP Pulse Ox 04/08/20 08:09 68 04/08/20 08:00 98 F 79 18 107/92 92 L 04/08/20 07:56 68 04/08/20 04:00 97.3 F L 80 18 88/55 93 L 04/08/20 00:00 98.4 F 80 18 103/59 95 04/07/20 20:00 98.7 F 84 18 94/51 95 04/07/20 19:01 66 16 04/07/20 18:51 68 16 04/07/20 15:20 98.1 F 66 18 113/53 90 L 04/07/20 15:03 98.4 F 74 18 97/71 94 L 04/07/20 14:55 74 18 88/69 94 L 04/07/20 14:30 62 18 86/38 04/07/20 14:27 86/43 04/07/20 14:00 61 18 111/63 04/07/20 13:30 84 16 88/43 97 04/07/20 13:00 80 16 126/65 98 04/07/20 12:30 83 18 126/71 98 04/07/20 12:00 83 14 117/72 04/07/20 11:30 82 16 111/69 100 04/07/20 11:00 82 12 116/74 99 04/07/20 10:31 96 04/07/20 10:30 112/75 96 04/07/20 10:21 93 L 04/07/20 10:17 98.4 F 83 18 112/75 89 L Intake and Output 04/07/20 04/08/20 04/08/20 22:59 06:59 14:59 Intake Total 540 660 Balance 540 660 Intake: Oral 540 660 Other: Voiding Method Indwelling Catheter Indwelling Catheter # Voids 0 0 Weight 87 kg - Constitutional General appearance: no acute distress - Respiratory Respiratory: bilateral: CTA - Cardiovascular Rhythm: irregularly irregular Heart sounds: normal: S1, S2 Abnormal Heart Sounds: systolic murmur Results 04/08/20 07:13 04/08/20 07:13 Cardiac Enzymes 04/07/20 Range/Units 11:42 AST 121 H (17-59) U/L Coagulation 04/07/20 Range/Units 11:42 PT 11.9 (9.0-12.0) sec APTT 27.7 (22.0-30.0) sec CBC 04/07/20 04/08/20 Range/Units 11:42 07:13 WBC 16.5 H 13.1 H (3.8-10.6) k/uL RBC 3.94 L 3.65 L (4.30-5.90) m/uL Hgb 10.6 L 9.9 L (13.0-17.5) gm/dL Hct 34.9 L 32.5 L (39.0-53.0) % Plt Count 182 168 (150-450) k/uL Comprehensive Metabolic Panel 04/07/20 04/08/20 Range/Units 11:42 07:13 Sodium 136 L 133 L (137-145) mmol/L Potassium 4.8 4.9 (3.5-5.1) mmol/L Chloride 94 L 95 L (98-107) mmol/L Carbon Dioxide 28 28 (22-30) mmol/L BUN 53 H 60 H (9-20) mg/dL Creatinine 3.77 H 4.36 H (0.66-1.25) mg/dL Glucose 99 65 L (74-99) mg/dL Calcium 8.4 7.7 L (8.4-10.2) mg/dL AST 121 H (17-59) U/L ALT 77 H (4-49) U/L Alkaline Phosphatase 254 H (38-126) U/L Total Protein 6.0 L (6.3-8.2) g/dL Albumin 3.2 L (3.5-5.0) g/dL Current Medications Generic Name Dose Route Start Last Admin Trade Name Freq PRN Reason Stop Dose Admin Acetaminophen 500 mg 04/07/20 17:51 Tylenol Tab PO Q6HR PRN Fever and/ or Pain Hydrocodone Bitart/Acetaminophen 1 each 04/07/20 15:43 04/08/20 09:05 [place] 5-325 PO 1 each Q4HR PRN Administration Pain Albuterol/Ipratropium 3 ml 04/07/20 20:00 04/08/20 07:56 Duoneb 0.5 Mg-3 Mg/3 Ml Soln INHALATION 3 ml RT-TID [facility] Administration Albuterol/Ipratropium 3 ml 04/07/20 17:52 Duoneb 0.5 Mg-3 Mg/3 Ml Soln INHALATION RT-TID PRN Shortness Of Breath Or Wheezing Apixaban 2.5 mg 04/07/20 21:00 04/08/20 09:02 Eliquis PO 2.5 mg BID [facility] Administration Ascorbic Acid 500 mg 04/08/20 07:30 04/08/20 06:49 Vitamin C PO 500 mg BID-W/MEALS [facility] Administration Bacitracin 1 applic 04/07/20 17:51 Bacitracin Zinc Oint TOPICAL BID PRN INFECTION Calcium Acetate 667 mg 04/08/20 07:30 04/08/20 06:49 Phoslo PO 667 mg TID-W/MEALS [facility] Administration Calcium Carbonate/Glycine 1,000 mg 04/07/20 21:00 04/08/20 09:01 Tums PO 1,000 mg BID [facility] Administration Docusate Sodium 100 mg 04/07/20 17:51 Colace PO DAILY PRN Constipation Ergocalciferol 50,000 unit 04/09/20 09:00 Vitamin D2 PO Q72H [facility] Ferrous Sulfate 325 mg 04/08/20 09:00 04/08/20 09:01 Feosol PO 325 mg DAILY [facility] Administration Finasteride 5 mg 04/08/20 09:00 04/08/20 09:01 Proscar PO 5 mg DAILY [facility] Administration Furosemide 40 mg 04/07/20 18:00 04/08/20 09:01 Lasix IV 40 mg Q8HR [facility] Administration Hydromorphone HCl 0.5 mg 04/07/20 15:43 Dilaudid IVP Q6HR PRN Pain Piperacillin Sod/Tazobactam 100 mls @ 25 mls/hr 04/07/20 15:00 04/08/20 04:41 Sod 3.375 gm/ Sodium Chloride IVPB 25 mls/hr Q12H [facility] Administration Insulin Aspart 0 unit 04/07/20 21:00 04/08/20 06:47 Novolog SQ Not Given [facility] Protocol Insulin Detemir 10 unit 04/08/20 09:00 04/08/20 09:01 Levemir SQ 10 unit DAILY [facility] Administration Lactic Acid 1 applic 04/07/20 17:51 Ammonium Lactate TOPICAL BID PRN Dry Skin Melatonin 5 mg 04/07/20 21:00 04/07/20 21:57 Melatonin PO 5 mg HS [facility] Administration Metolazone 2.5 mg 04/08/20 09:00 04/08/20 09:02 Zaroxolyn PO 2.5 mg Q48H [facility] Administration Metoprolol Tartrate 25 mg 04/07/20 21:00 04/08/20 09:01 Lopressor PO 25 mg BID [facility] Administration Naloxone HCl 0.2 mg 04/07/20 13:23 Narcan IV Q2M PRN Opioid Reversal Non-Formulary Medication 10 mg 04/08/20 09:00 04/08/20 09:02 Rosuvastatin PO Not Given DAILY [facility] Ondansetron HCl 4 mg 04/07/20 17:51 Zofran PO TID PRN Nausea Pantoprazole Sodium 40 mg 04/08/20 07:30 04/08/20 06:49 Protonix PO 40 mg [id number] [facility] Administration Intake and Output 04/07/20 04/08/20 04/08/20 22:59 06:59 14:59 Intake Total 540 660 Balance 540 660 Intake: Oral 540 660 Other: Voiding Method Indwelling Catheter Indwelling Catheter # Voids 0 0 Weight 87 kg 04/08/20 07:13 04/08/20 07:13 Assessment and Plan Assessment: Assessment #1 generalized weakness and fatigue #2 marginal a low blood pressure #3 end stage renal disease on dialysis #4 coronary artery disease #5 mild cardiomyopathy was EF around 45% #6 long-standing persistent atrial fibrillation #7 aortic stenosis #8 multiple comorbid conditions Plan #1 the patient does not seems to be in overt congestive heart failure at this point #2 I am going to obtain an orthostatic blood pressure checked #3 if that came in to be positive old back of the dose of metoprolol #4 no need to repeat the echocardiogram #5 follow-up with the patient Thank you for allowing us participate in his care
[2020-04-08 11:42] LABS: Glucose,Whole Blood 105 mg/dL (75-99)
--- NOTE | 2020-04-08 12:50 | CONS ---
CONSULTATION REASON FOR CONSULT: End-stage renal disease. HISTORY OF PRESENT ILLNESS: Patient is a 80-year-old male who is on hemodialysis on a Wednesday, , Wednesday schedule at the [facility] unit. Patient was admitted to the hospital as his blood pressure had dropped during dialysis. He denied any chest pains. No fever or chills. No nausea, vomiting, abdominal pain or diarrhea. The patient stated that his previous treatment on was uneventful. His blood pressures have been on the lower side with systolic 107 to 88 mmHg. The patient does not have any significant urine output. He did have IV fluid boluses on initial admission. No complaints of chest pains or shortness of breath. Chest x-ray on admission showed cardiomegaly with small bilateral pleural effusions, worsening opacity in the right hemithorax, possible combination of fluid and airspace disease. Patient does have edema in his lower extremities. PAST MEDICAL HISTORY: End-stage renal disease, coronary artery disease, atrial fibrillation, CHF, type 2 diabetes, gastroesophageal reflux disease, hypertension, osteoarthritis, peripheral vascular disease, cellulitis, history of UTI, bilateral lower extremities dermatitis, BPH. PAST SURGICAL HISTORY: Appendectomy, coronary artery bypass surgery, coronary stent placement, cataract surgery, cardioversion for atrial fibrillation, flutter, coronary stent placement, cataract surgery. PAST SOCIAL HISTORY: Negative for smoking, drug abuse or alcohol abuse. MEDICATIONS: Prior to admission included melatonin, Crestor, Lopressor, Flomax, iron, Proscar, zinc, insulin, vitamin C, Tums, PhosLo, Aranesp, Colace, Protonix, [place]. ALLERGIES: Include LIPITOR. PHYSICAL EXAMINATION: Patient is comfortable, awake, not in any acute distress. Blood pressure is 107/92, heart rate 79 per minute, he is afebrile. Examination of the heart S1, S2. Examination of the lungs, bilateral breath sounds are heard. Abdomen is soft, nontender. Examination of the lower extremities shows edema 2+ bilaterally. [employer] exam grossly intact. Abdomen is distended. LABS: Show sodium 133, potassium 4.9, chloride 95, BUN 60, creatinine 4.36, hemoglobin 9.9 g/dL. ASSESSMENT: 1. End-stage renal disease, on hemodialysis on a Wednesday, , Wednesday schedule. 2. Hypotension, no evidence of sepsis. Patient is maintained on empiric antibiotics. Cultures are currently pending. Blood cultures negative thus far. Patient does have a IJ PermCath. His ejection fraction on a previous echocardiogram in October was 45%-50% with moderately dilated left atrium. No acute coronary event going on at this time. I will check a random cortisol level. 3. Mild volume overload with bilateral lower extremity edema and ascites. We will plan for treatment tomorrow. Patient is not in any acute distress. I will maintain patient on midodrine so that we can remove some fluid. 4. History of congestive heart failure. 5. Coronary artery disease, status post coronary artery bypass surgery. 6. Anemia of chronic disease. PLAN: Hemodialysis in a.m. Check random cortisol level. Add midodrine pre treatment to enable ultrafiltration. Add Aranesp for anemia and repeat labs in a.m. Thank you for this consultation. Will continue to follow the patient with you during his hospitalization. MMODL / IJN: [id number] /
[2020-04-08] MEDS: MIDODRINE 5 MG TAB PO SCH ×2 (14:06→17:33)
--- NOTE | 2020-04-08 14:41 | P.PN ---
Subjective Progress Note Date: 04/08/20 Principal diagnosis: This is a 80-year-old male who was recently admitted with congestive heart failure acute exacerbation and is being closely monitored. Patient is maintained on hemodialysis on Wednesday//Wednesday and nephrology was consulted. Patient to receive hemodialysis tomorrow. Cardiology also following. Patient continues to have some shortness of breath and weakness. Patient's blood culture preliminary showing group D enterococcus in urine culture preliminary showing group D enterococcus with gram-negative bacilli. Patient is currently maintained on Unasyn and will continue at this time given kidney functions. Infectious disease was consulted and pending at this time. Orthostatic vital signs obtained. Patient is continued on IV Lasix at 40 mg ev doris 8 hours and will continue at this time. Patient to continue with DuoNeb treatments. Review of systems: Constitutional: Reports fatigue, no reports of fevers or chills Cardiovascular: No reports of chest pain or palpitation Respiratory: Reports some shortness of breath, no reports of cough GI: No reports of nausea, vomiting, or diarrhea : No reports of dysuria or retention Neurovascular: Reports weakness, no reports of numbness Active Medications Acetaminophen (Tylenol Tab) 500 mg PO Q6HR PRN PRN Reason: Fever and/ or Pain Hydrocodone Bitart/Acetaminophen ([place] 5-325) 1 each PO Q4HR PRN PRN Reason: Pain Last Admin: 04/08/20 09:05 Dose: 1 each Documented by: Albuterol/Ipratropium (Duoneb 0.5 Mg-3 Mg/3 Ml Soln) 3 ml INHALATION RT-TID [facility] Last Admin: 04/08/20 12:40 Dose: 3 ml Documented by: Albuterol/Ipratropium (Duoneb 0.5 Mg-3 Mg/3 Ml Soln) 3 ml INHALATION RT-TID PRN PRN Reason: Shortness Of Breath Or Wheezing Apixaban (Eliquis) 2.5 mg PO BID [facility] Last Admin: 04/08/20 09:02 Dose: 2.5 mg Documented by: Ascorbic Acid (Vitamin C) 500 mg PO BID-W/MEALS [facility] Last Admin: 04/08/20 06:49 Dose: 500 mg Documented by: Bacitracin (Bacitracin Zinc Oint) 1 applic TOPICAL BID PRN PRN Reason: INFECTION Calcium Acetate (Phoslo) 667 mg PO TID-W/MEALS [facility] Last Admin: 04/08/20 06:49 Dose: 667 mg Documented by: Calcium Carbonate/Glycine (Tums) 1,000 mg PO BID [facility] Last Admin: 04/08/20 09:01 Dose: 1,000 mg Documented by: Docusate Sodium (Colace) 100 mg PO DAILY PRN PRN Reason: Constipation Ergocalciferol (Vitamin D2) 50,000 unit PO Q72H [facility] Ferrous Sulfate (Feosol) 325 mg PO DAILY [facility] Last Admin: 04/08/20 09:01 Dose: 325 mg Documented by: Finasteride (Proscar) 5 mg PO DAILY [facility] Last Admin: 04/08/20 09:01 Dose: 5 mg Documented by: Furosemide (Lasix) 40 mg IV Q8HR [facility] Last Admin: 04/08/20 09:01 Dose: 40 mg Documented by: Hydromorphone HCl (Dilaudid) 0.5 mg IVP Q6HR PRN PRN Reason: Pain Piperacillin Sod/Tazobactam (Sod 3.375 gm/ Sodium Chloride) 100 mls @ 25 mls/hr IVPB Q12H [facility] Last Admin: 04/08/20 04:41 Dose: 25 mls/hr Documented by: Insulin Aspart (Novolog) 0 unit SQ ACHS [facility]; Protocol Last Admin: 04/08/20 06:47 Dose: Not Given Documented by: Insulin Detemir (Levemir) 10 unit SQ DAILY [facility] Last Admin: 04/08/20 09:01 Dose: 10 unit Documented by: Lactic Acid (Ammonium Lactate) 1 applic TOPICAL BID PRN PRN Reason: Dry Skin Melatonin (Melatonin) 5 mg PO HS [facility] Last Admin: 04/07/20 21:57 Dose: 5 mg Documented by: Metolazone (Zaroxolyn) 2.5 mg PO Q48H [facility] Last Admin: 04/08/20 09:02 Dose: 2.5 mg Documented by: Metoprolol Tartrate (Lopressor) 25 mg PO BID [facility] Last Admin: 04/08/20 09:01 Dose: 25 mg Documented by: Midodrine (Proamatine) 10 mg PO AC-TID [facility] Naloxone HCl (Narcan) 0.2 mg IV Q2M PRN PRN Reason: Opioid Reversal Non-Formulary Medication (Rosuvastatin) 10 mg PO DAILY [facility] Last Admin: 04/08/20 09:02 Dose: Not Given Documented by: Ondansetron HCl (Zofran) 4 mg PO TID PRN PRN Reason: Nausea Pantoprazole Sodium (Protonix) 40 mg PO AC-BRKFST [facility] Last Admin: 04/08/20 06:49 Dose: 40 mg Documented by: Objective - Vital Signs Vital signs: Vital Signs Temp 98 F 04/08/20 12:00 Pulse 68 04/08/20 12:40 Resp 18 04/08/20 12:00 BP 97/54 04/08/20 12:00 Pulse Ox 97 04/08/20 12:00 Intake & Output 04/07/20 04/08/20 04/08/20 18:59 06:59 18:59 Intake Total 360 180 660 Balance 360 180 660 Weight 86.183 kg 87 kg Intake: Oral 360 180 660 Other: Voiding Method Indwelling Catheter Indwelling Catheter Indwelling Catheter # Voids 0 - Exam Gen: This is a 80-year-old male lying in bed, awake, alert and oriented 3, well-developed, well-nourished. Temp is 98F, pulse is 79, respirations are 18, blood pressure is 107/92, oxygen saturation is 92% on room air. HEENT: Head is atraumatic, normocephalic. Pupils equal, round. Sclerae is anicteric. NECK: Supple. No JVD. No lymphadenopathy. No thyromegaly. LUNGS: Breath sounds diminished at the bases with a few scattered rhonchi and crackles noted. No intercostal retractions. HEART: Regular rate and rhythm. No murmur. ABDOMEN: Soft. Obese. Bowel sounds are present. No masses. No tenderness. EXTREMITIES: No pedal edema. No calf tenderness. Bilateral lower extremity edema NEUROLOGICAL: Patient is awake, alert and oriented x3. Diffusely weak - Labs CBC & Chem 7: 04/08/20 07:13 04/08/20 07:13 Labs: Abnormal Lab Results - Last 24 Hours (Table) 04/07/20 04/07/20 04/07/20 Range/Units 12:40 16:34 20:26 WBC (3.8-10.6) k/uL RBC (4.30-5.90) m/uL Hgb (13.0-17.5) gm/dL Hct (39.0-53.0) % MCHC (31.0-37.0) g/dL RDW (11.5-15.5) % Neutrophils # (1.3-7.7) k/uL Lymphocytes # (1.0-4.8) k/uL Sodium (137-145) mmol/L Chloride (98-107) mmol/L BUN (9-20) mg/dL Creatinine (0.66-1.25) mg/dL Glucose (74-99) mg/dL POC Glucose (mg/dL) 118 H 157 H (75-99) mg/dL Calcium (8.4-10.2) mg/dL Urine Protein 3+ H (Negative) Urine Blood Moderate H (Negative) Ur Leukocyte Esterase Large H (Negative) Urine RBC 154 H (0-5) /hpf Urine WBC >182 H (0-5) /hpf Urine Bacteria Many H (None) /hpf Urine Mucus Few H (None) /hpf 04/08/20 04/08/20 04/08/20 Range/Units 07:13 07:13 11:40 WBC 13.1 H (3.8-10.6) k/uL RBC 3.65 L (4.30-5.90) m/uL Hgb 9.9 L (13.0-17.5) gm/dL Hct 32.5 L (39.0-53.0) % MCHC 30.4 L (31.0-37.0) g/dL RDW 17.5 H (11.5-15.5) % Neutrophils # 11.6 H (1.3-7.7) k/uL Lymphocytes # 0.4 L (1.0-4.8) k/uL Sodium 133 L (137-145) mmol/L Chloride 95 L (98-107) mmol/L BUN 60 H (9-20) mg/dL Creatinine 4.36 H (0.66-1.25) mg/dL Glucose 65 L (74-99) mg/dL POC Glucose (mg/dL) 105 H (75-99) mg/dL Calcium 7.7 L (8.4-10.2) mg/dL Urine Protein (Negative) Urine Blood (Negative) Ur Leukocyte Esterase (Negative) Urine RBC (0-5) /hpf Urine WBC (0-5) /hpf Urine Bacteria (None) /hpf Urine Mucus (None) /hpf Microbiology - Last 24 Hours (Table) 04/07/20 13:41 Blood Culture Gram Stain - Preliminary Blood 04/07/20 13:41 Blood Culture - Final Blood 04/07/20 12:40 Urine Culture - Preliminary Urine,Voided Assessment and Plan Assessment: Shortness of breath possibly multifactorial with congestive heart failure, acute exacerbation with acute on chronic systolic dysfunction, ejection fraction 45% with moderate mitral regurgitation, aortic stenosis Possible right pleural effusion Chronic kidney disease end-stage renal disease on hemodialysis, Wednesday//Wednesday Increased white blood count Anemia, normocytic Rule out right lower lobe pneumonia hyponatremia Elevated AST, ALT Rule out urinary tract infection Atrial fibrillation chronic history of coronary artery disease History of congestive heart failure Diabetes mellitus type 2 Gastroesophageal reflux disease Hypertension Hyperlipidemia Myocardial infarction history of degenerative joint disease History of bilateral lower extremity cellulitis, ulcers with Klebsiella, Pseudomonas History of diabetes, uncontrolled History of pleural effusion with right side thoracentesis History of paroxysmal atrial flutter Peripheral vascular disease History of benign prostatic hypertrophy History of coronary artery disease, CABG history of urinary retention History of coronary artery disease, stent Obesity with a body mass index of 31 Full code Recommendations and discussion: Recommend continue current medications, management, and symptomatic treatment. Patient is maintained on IV antibiotics in the form of Zosyn and will continue at this time. Infectious disease was consulted and pending at this time as preliminary blood cultures showing group D enterococcus with urine culture preliminary showing group D enterococcus and gram-negative bacilli. Nephrology consulted and patient will be receiving hemodialysis tomorrow. Cardiology also following. Patient is maintained on IV Lasix and will continue at this time. Will repeat a.m. labs along with repeat blood cultures to monitor for clearance of bacteremia. Due to multiple complex medical issues, prognosis is guarded. Further recommendations to follow.
--- NOTE | 2020-04-08 15:21 | P.CNPUL ---
History of Present Illness Consult date: 04/08/20 Reason for consult: dyspnea, pleural effusion History of present illness: 80-year-old male patient got transferred from dialysis center as the patient's blood pressure was running low and he was unable to tolerate the the treatment. Dialysis was cut short by around 2 hours according to him. He is known to me. He is known to have extensive comorbidities including coronary artery disease, previous bypass surgery, CHF with ejection fraction 45%, mild aortic stenosis, hypertension and hyperlipidemia and the patient has chronic kidney disease and has been started on hemodialysis few months back via a temporary dialysis catheter in his right IJ. He also has history of diabetes mellitus, paroxysmal atrial flutter/fibrillation, peripheral vascular disease, BPH, and a chronic right-sided pleural effusion that was drained in the past where a total of 900 mL of fluid was aspirated from the right lung and the fluid negative turner to be a transudate consistent with CHF. In any rate, the patient does have a Torres catheter. The urine output is quite and there is a suspicion for now underlying urine checked infection as the patient has more than 182 white cells and his urine analysis. Cultures still pending for now. The chest x-ray findings are essentially stable. The patient is stable cardiomegaly and stable loculated right-sided pleural effusion without evidence of any pneumothorax. No reported cough. No reported sputum production. The patient is covered empirically with IV Zosyn for now. He is afebrile. Most recent blood pressure is 97 with 54 with a room air pulse ox of 97%. His breathing is nonlabored. Review of Systems CONSTITUTIONAL: No fever, no malaise, there is an increased fatigue and tiredness and weakness in general HEENT: No recent visual problems or hearing problems. Denied any sore throat. CARDIOVASCULAR: No orthopnea, PND, no palpitations, no syncope. Hypotension the patient was dropping his blood pressure during dialysis. Unable to complete a dialysis session. PULMONARY: no hemoptysis. Increased shortness of breath and cough and congestion GASTROINTESTINAL: No diarrhea, no nausea, no vomiting, no abdominal pain. Normoactive bowel sounds. NEUROLOGICAL: No headaches, no weakness, no numbness. HEMATOLOGICAL: Denies any bleeding or petechiae. GENITOURINARY: Denies any burning micturition, frequency, or urgency. The urine output is cloudy and the patient a Torres catheter in place. MUSCULOSKELETAL/RHEUMATOLOGICAL: Denies any joint pain, swelling, or any muscle pain. ENDOCRINE: Denies any polyuria or polydipsia. Past Medical History Past Medical History: Atrial Fibrillation, Coronary Artery Disease (CAD), Heart Failure, Diabetes Mellitus, GERD/Reflux, Hyperlipidemia, Hypertension, Myocardial Infarction (SC), Osteoarthritis (OA), Renal Disease, Vascular Disorder Additional Past Medical History / Comment(s): Pt recently admitted to [facility] on 01/16/19 with bilateral lower extremity cellulitis with multiple ulcers-positive for klebsiella/pseudomonas, uncontrolled diabetes, pleural effusion with R thoracentesis, exacerbation CHF. Other Hx: Paroxysmal Aflutter, PAD, chronic bilateral venous stasis dermatitis, lower extremety infection/blisters, chronic CHF, IDDM type II, BPH, post CABG urinary retention, CRD stage III, Last Myocardial Infarction Date:: 12/08/18 History of Any Multi-Drug Resistant Organisms: None Reported Past Surgical History: Appendectomy, Coronary Bypass/CABG, Heart Catheterization With Stent Additional Past Surgical History / Comment(s): 12/08/18 CABG 4 vessels, PCI with stents 2004, cardioversion for Aflutter, bilateral cataract removals/lens implants. Past Anesthesia/Blood Transfusion Reactions: No Reported Reaction Additional Past Anesthesia/Blood Transfusion Reaction / Comment(s): Pt received blood with CABG Date of Last Stent Placement:: 2004 Past Psychological History: No Psychological Hx Reported Past Alcohol Use History: None Reported Past Drug Use History: None Reported - Past Family History Mother Family Medical History: Myocardial Infarction (SC) Additional Family Medical History / Comment(s): Mother had a SC at the age of 64 Father Additional Family Medical History / Comment(s): Father had mental health issues after a "bad" truck accident. Medications and Allergies Home Medications Medication Instructions Recorded Confirmed Type Ascorbic Acid [Vitamin C] 500 mg PO BID-W/MEALS tab 12/20/18 04/07/20 Rx Acetaminophen Tab [Tylenol] 500 mg PO Q6HR PRN tab 01/25/19 04/07/20 Rx Metoprolol Tartrate [Lopressor] 25 mg PO BID 02/08/19 04/07/20 History Ferrous Sulfate [Iron (65 MG 325 mg PO DAILY 07/27/19 04/07/20 History Elemental)] Ammonium Lactate Cream [Lac-Hydrin 1 applic TOPICAL BID PRN 10/30/19 04/07/20 History 12% Cream] Bacitracin Zinc Oint 1 applic TOPICAL BID PRN 10/30/19 04/07/20 History Finasteride [Proscar] 5 mg PO DAILY 10/30/19 04/07/20 History Furosemide [Lasix] 40 mg PO BID@0800,1500 10/30/19 04/07/20 History Insulin Glargine,Hum.rec.anlog 10 unit SQ DAILY #1 pen 11/05/19 04/07/20 Rx [Lantus Solostar] Albuterol Sulfate [Ventolin HFA] 2 puff INHALATION RT-Q4H PRN 12/26/19 04/07/20 History Calcium Acetate [PhosLo] 667 mg PO TID-W/MEALS tab 01/12/20 04/07/20 Rx Calcium Carbonate [Tums] 1,000 mg PO BID chew 01/12/20 04/07/20 Rx Docusate [Colace] 100 mg PO DAILY PRN cap 01/12/20 04/07/20 Rx Ergocalciferol [Vitamin D2 50,000 unit PO Q72H cap 01/12/20 04/07/20 Rx (DRISDOL)] Pantoprazole [Protonix] 40 mg PO DAILY tablet. 01/12/20 04/07/20 Rx Apixaban [Eliquis] 2.5 mg PO BID 04/07/20 04/07/20 History Insulin Aspart [NovoLOG Flexpen] See Protocol SQ TID-W/MEALS 04/07/20 04/07/20 History Melatonin 5 mg PO HS 04/07/20 04/07/20 History Ondansetron [Zofran] 4 mg PO TID PRN 04/07/20 04/07/20 History Rosuvastatin [Crestor] 10 mg PO DAILY 04/07/20 04/07/20 History metOLazone 2.5 mg PO Q48H 04/07/20 04/07/20 History Allergies Allergy/AdvReac Type Severity Reaction Status Date / Time atorvastatin [From Lipitor] AdvReac MUSCLE/JOINT Verified 04/07/20 15:12 PAIN Physical Exam Vitals: Vital Signs Temp Pulse Pulse Pulse Pulse Pulse Resp 04/08/20 12:52 68 04/08/20 12:40 68 04/08/20 12:00 98 F 80 80 80 81 18 04/08/20 08:09 68 04/08/20 08:00 98 F 79 18 04/08/20 07:56 68 04/08/20 04:00 97.3 F L 80 18 04/08/20 00:00 98.4 F 80 18 04/07/20 20:00 98.7 F 84 18 04/07/20 19:01 66 16 04/07/20 18:51 68 16 04/07/20 15:20 98.1 F 66 18 BP BP BP BP Pulse Ox 04/08/20 12:52 04/08/20 12:40 04/08/20 12:00 101/59 95/56 97/54 97 04/08/20 08:09 04/08/20 08:00 107/92 92 L 04/08/20 07:56 04/08/20 04:00 88/55 93 L 04/08/20 00:00 103/59 95 04/07/20 20:00 94/51 95 04/07/20 19:01 04/07/20 18:51 04/07/20 15:20 113/53 90 L Intake and Output 04/08/20 04/08/20 04/08/20 06:59 14:59 22:59 Intake Total 780 Balance 780 Intake: Oral 780 Other: Voiding Method Indwelling Catheter Indwelling Catheter # Voids 0 Weight 87 kg GENERAL: The patient is alert and oriented x3, not in any acute distress. Well developed, well nourished. No significant signs of any respiratory distress. The patient is not using excessive muscle breathing. Head exam was generally normal. There was no scleral icterus or corneal arcus. Mucous membranes were moist. HEENT: Pupils are round and equally reacting to light. EOMI. No scleral icterus. No conjunctival pallor. Normocephalic, atraumatic. No pharyngeal erythema. No thyromegaly. The patient seems to be quite dehydrated and the patient has dry mucous membranes. The patient has a right IJ dialysis catheter in place. No neck stiffness. CARDIOVASCULAR: Irregular S1 and S2 present. No murmurs, rubs, or gallops. The patient thoracotomy scar over the anterior chest area with lidocaine and intact. PULMONARY: The patient has crackles along the right side of the lung. Breast on the quite diminished bilaterally especially in the lung bases. ABDOMEN: Soft, nontender, nondistended, normoactive bowel sounds. No palpable organomegaly. MUSCULOSKELETAL: No joint swelling or deformity. EXTREMITIES: No cyanosis, clubbing, or pedal edema. NEUROLOGICAL: Gross neurological examination did not reveal any focal deficits. SKIN: No rashes. No petechiae Results - Laboratory Findings CBC and BMP: 04/08/20 07:13 04/08/20 07:13 PT/INR, D-dimer PT 11.9 sec (9.0-12.0) 04/07/20 11:42 INR 1.2 (<1.2) H 04/07/20 11:42 Abnormal lab findings: Abnormal Labs 04/07/20 04/07/20 04/07/20 11:42 11:42 11:42 WBC 16.5 H RBC 3.94 L Hgb 10.6 L Hct 34.9 L MCHC 30.5 L RDW 17.5 H Neutrophils # 14.9 H Lymphocytes # 0.4 L INR 1.2 H Sodium 136 L Chloride 94 L BUN 53 H Creatinine 3.77 H Glucose POC Glucose (mg/dL) Calcium AST 121 H ALT 77 H Alkaline Phosphatase 254 H Total Protein 6.0 L Albumin 3.2 L Urine Protein Urine Blood Ur Leukocyte Esterase Urine RBC Urine WBC Urine Bacteria Urine Mucus 04/07/20 04/07/20 04/07/20 12:40 16:34 20:26 WBC RBC Hgb Hct MCHC RDW Neutrophils # Lymphocytes # INR Sodium Chloride BUN Creatinine Glucose POC Glucose (mg/dL) 118 H 157 H Calcium AST ALT Alkaline Phosphatase Total Protein Albumin Urine Protein 3+ H Urine Blood Moderate H Ur Leukocyte Esterase Large H Urine RBC 154 H Urine WBC >182 H Urine Bacteria Many H Urine Mucus Few H 04/08/20 04/08/20 04/08/20 07:13 07:13 11:40 WBC 13.1 H RBC 3.65 L Hgb 9.9 L Hct 32.5 L MCHC 30.4 L RDW 17.5 H Neutrophils # 11.6 H Lymphocytes # 0.4 L INR Sodium 133 L Chloride 95 L BUN 60 H Creatinine 4.36 H Glucose 65 L POC Glucose (mg/dL) 105 H Calcium 7.7 L AST ALT Alkaline Phosphatase Total Protein Albumin Urine Protein Urine Blood Ur Leukocyte Esterase Urine RBC Urine WBC Urine Bacteria Urine Mucus - Diagnostic Findings Chest x-ray: image reviewed Assessment and Plan Plan: 1 hypotension currently under investigation. Rule out underlying infection/sepsis and the patient has possibly an underlying UTI with cloudy urine with an abnormal urinalysis. The patient is currently covered with IV Zosyn. Blood pressure is stable and the patient has not required any pressors 2 End stage renal disease currently on hemodialysis. The patient has done dialysis for the past 2 month 3 small bilateral pleural effusions, and the patient has had a loculated right- sided pleural effusion and a previous drainage of the right lung yielded into a non-cc of pleural fluid that was a transudate. 4 CHF with ejection fraction 45% and mild aortic stenosis and moderate mitral regurgitation. Echocardiac Richard is to be repeated. The patient has mild systolic heart failure 5 chronic atrial fibrillation maintained on Eliquis on outpatient basis 6 diabetes mellitus 7 hypertension 8 hyperlipidemia 9 coronary artery disease with previous bypass surgery that was performed in December 2018 10 history of iron deficiency anemia with a positive occult blood in the stool 11 anemia of chronic disease 12 generalized weakness and fatigue with a marginally low blood pressure Plan Monitor the BP Urine cultures Blood cultures IV Zosyn Cardiology evaluation No need for drainage of the right lung. This pleural effusion is a transudate and chronic in nature. We'll continue to follow.
[2020-04-08 16:34] LABS: Glucose,Whole Blood 125 mg/dL (75-99)
[2020-04-08 20:34] LABS: Glucose,Whole Blood 153 mg/dL (75-99)
[2020-04-08] MEDS: MELATONIN 5 MG TABLET PO SCH (21:18)
--- NOTE | 2020-04-08 23:14 | P.CONS ---
History of Present Illness - Reason for Consult Consult date: 04/08/20 Enterococcus bacteremia Requesting physician: Elvira Stoddard - Chief Complaint Weakness and low blood pressure x 1 day - History of Present Illness Patient is a 80-year-old male with a past medical history significant for end-stage renal disease on hemodialysis Wednesday patient has been sent to the ER after currently the patient was noticed to have a low blood pressure during dialysis, patient said the tightness was not completed he was feeling weak and tired and no energy patient denies headache or fever or chills no chest pain or shortness of breath and minimal cough no nausea no vomiting no abdominal pain no diarrhea patient had did have a urinary outflow obstruction for the patient did have chronic indwelling Torres catheter patient is not sure how much urine he makes daily and was not clear and was last him a Torres catheter was changed before coming to the hospital the patient Torres was changed during this hospital admission though patient did have a positive UA and he did have blood culture drawn patient now showing enterococcus in both in the blood in the urine infectious disease was consulted for further management of antibiotic therapy patient did have right chest wall subclavian permacatheter that has been there for the last few months for hemodialysis, on presentation the hospital the patient was afebrile and remains to be afebrile patient did have elevated white 16,000 patient did have a positive UA chest x-ray with a right lower lobe effusion versus infiltrate Review of Systems Positive point has been mentioned in the HPI rest of the systems are negative Past Medical History Past Medical History: Atrial Fibrillation, Coronary Artery Disease (CAD), Heart Failure, Diabetes Mellitus, GERD/Reflux, Hyperlipidemia, Hypertension, Myocardial Infarction (MA), Osteoarthritis (OA), Renal Disease, Vascular Disorder Additional Past Medical History / Comment(s): Pt recently admitted to [facility] on 01/16/19 with bilateral lower extremity cellulitis with multiple ulcers-positive for klebsiella/pseudomonas, uncontrolled diabetes, pleural effusion with R thoracentesis, exacerbation CHF. Other Hx: Paroxysmal Aflutter, PAD, chronic bilateral venous stasis dermatitis, lower extremety infection/blisters, chronic CHF, IDDM type II, BPH, post CABG urinary retention, CRD stage III, Last Myocardial Infarction Date:: 12/08/18 History of Any Multi-Drug Resistant Organisms: None Reported Past Surgical History: Appendectomy, Coronary Bypass/CABG, Heart Catheterization With Stent Additional Past Surgical History / Comment(s): 12/08/18 CABG 4 vessels, PCI with stents 2004, cardioversion for Aflutter, bilateral cataract removals/lens implants. Past Anesthesia/Blood Transfusion Reactions: No Reported Reaction Additional Past Anesthesia/Blood Transfusion Reaction / Comm: Pt received blood with CABG Date of Last Stent Placement:: 2004 Past Psychological History: No Psychological Hx Reported Past Alcohol Use History: None Reported Past Drug Use History: None Reported - Past Family History Mother Family Medical History: Myocardial Infarction (MA) Additional Family Medical History / Comment(s): Mother had a MA at the age of 64 Father Additional Family Medical History / Comment(s): Father had mental health issues after a "bad" truck accident. Medications and Allergies Home Medications Medication Instructions Recorded Confirmed Type Ascorbic Acid [Vitamin C] 500 mg PO BID-W/MEALS tab 12/20/18 04/07/20 Rx Acetaminophen Tab [Tylenol] 500 mg PO Q6HR PRN tab 01/25/19 04/07/20 Rx Metoprolol Tartrate [Lopressor] 25 mg PO BID 02/08/19 04/07/20 History Ferrous Sulfate [Iron (65 MG 325 mg PO DAILY 07/27/19 04/07/20 History Elemental)] Ammonium Lactate Cream [Lac-Hydrin 1 applic TOPICAL BID PRN 10/30/19 04/07/20 History 12% Cream] Bacitracin Zinc Oint 1 applic TOPICAL BID PRN 10/30/19 04/07/20 History Finasteride [Proscar] 5 mg PO DAILY 10/30/19 04/07/20 History Furosemide [Lasix] 40 mg PO BID@0800,1500 10/30/19 04/07/20 History Insulin Glargine,Hum.rec.anlog 10 unit SQ DAILY #1 pen 11/05/19 04/07/20 Rx [Lantus Solostar] Albuterol Sulfate [Ventolin HFA] 2 puff INHALATION RT-Q4H PRN 12/26/19 04/07/20 History Calcium Acetate [PhosLo] 667 mg PO TID-W/MEALS tab 01/12/20 04/07/20 Rx Calcium Carbonate [Tums] 1,000 mg PO BID chew 01/12/20 04/07/20 Rx Docusate [Colace] 100 mg PO DAILY PRN cap 01/12/20 04/07/20 Rx Ergocalciferol [Vitamin D2 50,000 unit PO Q72H cap 01/12/20 04/07/20 Rx (DRISDOL)] Pantoprazole [Protonix] 40 mg PO DAILY tablet.dr 01/12/20 04/07/20 Rx Apixaban [Eliquis] 2.5 mg PO BID 04/07/20 04/07/20 History Insulin Aspart [NovoLOG Flexpen] See Protocol SQ TID-W/MEALS 04/07/20 04/07/20 History Melatonin 5 mg PO HS 04/07/20 04/07/20 History Ondansetron [Zofran] 4 mg PO TID PRN 04/07/20 04/07/20 History Rosuvastatin [Crestor] 10 mg PO DAILY 04/07/20 04/07/20 History metOLazone 2.5 mg PO Q48H 04/07/20 04/07/20 History Allergies Allergy/AdvReac Type Severity Reaction Status Date / Time atorvastatin [From Lipitor] AdvReac MUSCLE/JOINT Verified 04/07/20 15:12 PAIN Physical Exam Vitals: Vital Signs Temp Pulse Pulse Pulse Pulse Pulse Resp 04/08/20 12:52 68 04/08/20 12:40 68 04/08/20 12:00 98 F 80 80 80 81 18 04/08/20 08:09 68 04/08/20 08:00 98 F 79 18 04/08/20 07:56 68 04/08/20 04:00 97.3 F L 80 18 04/08/20 00:00 98.4 F 80 18 04/07/20 20:00 98.7 F 84 18 04/07/20 19:01 66 16 04/07/20 18:51 68 16 04/07/20 15:20 98.1 F 66 18 04/07/20 15:03 98.4 F 74 18 04/07/20 14:55 74 18 04/07/20 14:30 62 18 04/07/20 14:27 BP BP BP BP BP Pulse Ox 04/08/20 12:52 04/08/20 12:40 04/08/20 12:00 101/59 95/56 97/54 97 04/08/20 08:09 04/08/20 08:00 107/92 92 L 04/08/20 07:56 04/08/20 04:00 88/55 93 L 04/08/20 00:00 103/59 95 04/07/20 20:00 94/51 95 04/07/20 19:01 04/07/20 18:51 04/07/20 15:20 113/53 90 L 04/07/20 15:03 97/71 94 L 04/07/20 14:55 88/69 94 L 04/07/20 14:30 86/38 04/07/20 14:27 86/43 Intake and Output 04/07/20 04/08/20 04/08/20 22:59 06:59 14:59 Intake Total 540 660 Balance 540 660 Intake: Oral 540 660 Other: Voiding Method Indwelling Catheter Indwelling Catheter Indwelling Catheter # Voids 0 0 Weight 87 kg GENERAL DESCRIPTION: Elderly male lying in bed, no distress. No tachypnea or accessory muscle of respiration use. HEENT: Shows Pallor , no scleral icterus. Oral mucous membrane is dry. No pharyngeal erythema or thrush NECK: Trachea central, no thyromegaly. LUNGS: Unlabored breathing. Decreased breath sound at the base. No wheeze or crackle. HEART: S1, S2, regular rate and rhythm. No loud murmur ABDOMEN: Soft, no tenderness , guarding or rigidity, no organomegaly EXTREMITIES: No edema of feet. SKIN: No rash, no masses palpable. NEUROLOGICAL: The patient is awake, alert, oriented x3, mood and affect normal. Results CBC & Chem 7: 04/08/20 07:13 04/08/20 07:13 Labs: Abnormal Lab Results - Last 24 Hours (Table) 04/07/20 04/07/20 04/08/20 Range/Units 16:34 20:26 07:13 WBC 13.1 H (3.8-10.6) k/uL RBC 3.65 L (4.30-5.90) m/uL Hgb 9.9 L (13.0-17.5) gm/dL Hct 32.5 L (39.0-53.0) % MCHC 30.4 L (31.0-37.0) g/dL RDW 17.5 H (11.5-15.5) % Neutrophils # 11.6 H (1.3-7.7) k/uL Lymphocytes # 0.4 L (1.0-4.8) k/uL Sodium (137-145) mmol/L Chloride (98-107) mmol/L BUN (9-20) mg/dL Creatinine (0.66-1.25) mg/dL Glucose (74-99) mg/dL POC Glucose (mg/dL) 118 H 157 H (75-99) mg/dL Calcium (8.4-10.2) mg/dL 04/08/20 04/08/20 Range/Units 07:13 11:40 WBC (3.8-10.6) k/uL RBC (4.30-5.90) m/uL Hgb (13.0-17.5) gm/dL Hct (39.0-53.0) % MCHC (31.0-37.0) g/dL RDW (11.5-15.5) % Neutrophils # (1.3-7.7) k/uL Lymphocytes # (1.0-4.8) k/uL Sodium 133 L (137-145) mmol/L Chloride 95 L (98-107) mmol/L BUN 60 H (9-20) mg/dL Creatinine 4.36 H (0.66-1.25) mg/dL Glucose 65 L (74-99) mg/dL POC Glucose (mg/dL) 105 H (75-99) mg/dL Calcium 7.7 L (8.4-10.2) mg/dL Microbiology - Last 24 Hours (Table) 04/07/20 12:40 Urine Culture - Preliminary Urine,Voided Group D Enterococcus Gram Neg Bacilli 04/07/20 13:41 Blood Culture Gram Stain - Preliminary Blood Blood Culture - Preliminary Group D Enterococcus 04/07/20 13:41 Blood Culture - Final Blood Assessment and Plan Assessment: 1-patient with Enterococcus faecalis bacteremia and this patient admitted to the hospital with low blood pressure during dialysis also have elevated white count, no fever with concern for possible permacath infection however it may have started with the catheter associated UTI as the patient did have chronic daily for the catheter and a urinary showing the same pathogen (1) Bacteremia Current Visit: Yes Status: Acute Code(s): R78.81 - BACTEREMIA SNOMED Code(s): 1892115 (2) Bacteremia associated with intravascular line Current Visit: Yes Status: Acute Code(s): T82.7XXA - INFECT/INFLM REACT D/T OTH CARDI/VASC DEV/IMPLNT/GRFT, INIT; R78.81 - BACTEREMIA SNOMED Code(s): 494206095 (3) UTI (urinary tract infection) Current Visit: Yes Status: Acute Code(s): N39.0 - URINARY TRACT INFECTION, SITE NOT SPECIFIED SNOMED Code(s): 22849656 Plan: 1- blood cultures were repeated today as well as tomorrow at the time of dialysis 2- Vancomycin pharmacy to dose target trough of 15 while watching his kidney function and Vanco trough closely We will follow on clinical condition and cultures to further adjust medication if needed Thank you for this consultation will follow this patient with you Time with Patient: Greater than 30
[2020-04-08] MEDS ORDERED: VANCOMYCIN IV PER PHARMACY 1 EACH MISC MISCELLANE PRN (23:15)
[2020-04-09] MEDS: FUROSEMIDE 10 MG/ML 4 ML VIAL IV SCH ×4 (00:24→23:19)
[2020-04-09] MEDS ORDERED: VANCOMYCIN 1,250 MG in SODIUM CHLORIDE 0.9% 250 ML IVPB ONE (01:00)
[2020-04-09 06:10] LABS: Anisocytosis Slight; Basophils % (A) 0 %; Eosinophils # (A) 0.2 k/uL (0-0.7); Eosinophils % (A) 1 %; HCT 33.1 % (39.0-53.0); HGB 9.8 gm/dL (13.0-17.5); Hypochromasia Moderate; Lymphocytes # (A) 0.3 k/uL (1.0-4.8); Lymphocytes % (A) 3 %; MCH 26.5 pg (25.0-35.0); MCHC 29.6 g/dL (31.0-37.0); MCV 89.5 fL (80.0-100.0); Mean Platelet Volume 7.7; Monocytes # (A) 0.8 k/uL (0-1.0); Monocytes % (A) 7 %; Neutrophils # (A) 10.6 k/uL (1.3-7.7); Neutrophils % (A) 86 %; Platelet Count 154 k/uL (150-450); RBC 3.69 m/uL (4.30-5.90); RDW 17.4 % (11.5-15.5); WBC 12.3 k/uL (3.8-10.6)
[2020-04-09 06:13] LABS: Glucose,Whole Blood 69 mg/dL (75-99)
[2020-04-09 06:26] LABS: Glucose,Whole Blood 66 mg/dL (75-99)
[2020-04-09 06:29] LABS: Calcium 7.8 mg/dL (8.4-10.2); Potassium 5.2 mmol/L (3.5-5.1)
[2020-04-09] MEDS: INSULIN ASPART (NovoLOG) 100 UNIT/ML VIAL SQ SCH ×4 (06:39→21:39)
[2020-04-09] MEDS: ASCORBIC ACID 500 MG TAB PO SCH ×2 (06:42→17:03)
[2020-04-09] MEDS: MIDODRINE 5 MG TAB PO SCH ×3 (06:42→17:03)
[2020-04-09] MEDS: PANTOPRAZOLE 40 MG TABLET PO SCH (06:42)
[2020-04-09] MEDS: CALCIUM ACETATE 667 MG TAB PO SCH ×3 (06:42→17:03)
[2020-04-09 06:45] LABS: Glucose,Whole Blood 77 mg/dL (75-99)
[2020-04-09] MEDS: IPRATROPIUM-ALBUTEROL 3 ML NEB INHALATION SCH ×3 (08:56→19:09)
--- NOTE | 2020-04-09 09:14 | P.PN ---
Subjective Progress Note Date: 04/09/20 Principal diagnosis: CAD This is another admission for this 80-year-old gentleman with an extensive medical history. He does have a past medical history consistent off coronary a rtery disease and prior coronary artery bypass grafting, mild cardiomyopathy with an ejection fraction around 45%, mild aortic stenosis, hypertension, dyslipidemia, long-standing persistent atrial fibrillation, and history of heart failure with low ejection fraction as well as in stage renal disease on dialysis. We consulted to see the patient for further evaluation of heart failure. The patient stated that after the last dialysis he was feeling weak and tired and fatigued and has no energy. He did not have any presyncope or syncope. No dizziness or lightheadedness. No symptoms of chest pain or chest discomfort. He does have shortness of breath with exertion but he stated that it has been the same and unchanged compared to before. He did have mild increase in the lower extremities edema over the last few days. We consulted to see the patient for heart failure. When the patient was seen this morning he seems to be euvolemic. He was laying flat in bed. He does have clear breathing sounds bilaterally. He does have irregular rhythm with a systolic murmur at the right and left upper sternal border consistent with aortic stenosis. The EKG showed atrial fibrillation/atrial flutter with T-wave inversion across the chest bleed. The troponin was not checked. The chest x-ray showed findings consistent was congestive heart failure. Earlier this year he was admitted to the hospital was heart failure and an echocardiogram was performed and revealed mildly impaired LV function was EF around 45% with evidence of mild aortic stenosis. The patient was seen today, 04/09/2020. He stated that he is feeling better in terms of shortness of breath and weakness. Denies any symptoms of chest pain or chest discomfort. The blood pressure has been stable. He continues to be on Lasix IV. Nephrology is on the case as well. We will continue the current medical regimen including oral anticoagulation and continue following up with the patient. Objective - Vital Signs Vital signs: Vital Signs Temp 98.1 F 04/09/20 00:00 Pulse 68 04/09/20 09:06 Resp 18 04/09/20 04:00 BP 102/64 04/09/20 04:00 Pulse Ox 98 04/09/20 04:00 Intake & Output 04/08/20 04/09/20 04/09/20 18:59 06:59 18:59 Intake Total 880 Output Total 75 Balance 880 -75 Weight 87 kg 91.5 kg Intake: Intake, IV Titration 100 Amount Piperacillin-Tazobactam 3 100 .375 gm In Sodium Chloride 0.9% 100 ml @ 25 mls/hr IVPB Q12H [facility] Rx# :[id number] Oral 780 Output: Urine 75 Other: Voiding Method Indwelling Catheter Indwelling Catheter - Constitutional General appearance: Present: no acute distress - Respiratory Respiratory: bilateral: diminished - Cardiovascular Heart sounds: normal: S1, S2 - Labs CBC & Chem 7: 04/09/20 05:48 04/09/20 05:48 Labs: Abnormal Lab Results - Last 24 Hours (Table) 04/08/20 04/08/20 04/08/20 Range/Units 11:40 16:32 20:32 WBC (3.8-10.6) k/uL RBC (4.30-5.90) m/uL Hgb (13.0-17.5) gm/dL Hct (39.0-53.0) % MCHC (31.0-37.0) g/dL RDW (11.5-15.5) % Neutrophils # (1.3-7.7) k/uL Lymphocytes # (1.0-4.8) k/uL Sodium (137-145) mmol/L Potassium (3.5-5.1) mmol/L Chloride (98-107) mmol/L BUN (9-20) mg/dL Creatinine (0.66-1.25) mg/dL Glucose (74-99) mg/dL POC Glucose (mg/dL) 105 H 125 H 153 H (75-99) mg/dL Calcium (8.4-10.2) mg/dL 04/09/20 04/09/20 04/09/20 Range/Units 05:48 05:48 06:12 WBC 12.3 H (3.8-10.6) k/uL RBC 3.69 L (4.30-5.90) m/uL Hgb 9.8 L (13.0-17.5) gm/dL Hct 33.1 L (39.0-53.0) % MCHC 29.6 L (31.0-37.0) g/dL RDW 17.4 H (11.5-15.5) % Neutrophils # 10.6 H (1.3-7.7) k/uL Lymphocytes # 0.3 L (1.0-4.8) k/uL Sodium 133 L (137-145) mmol/L Potassium 5.2 H (3.5-5.1) mmol/L Chloride 95 L (98-107) mmol/L BUN 69 H (9-20) mg/dL Creatinine 5.07 H (0.66-1.25) mg/dL Glucose 49 L* (74-99) mg/dL POC Glucose (mg/dL) 69 L (75-99) mg/dL Calcium 7.8 L (8.4-10.2) mg/dL 04/09/20 Range/Units 06:24 WBC (3.8-10.6) k/uL RBC (4.30-5.90) m/uL Hgb (13.0-17.5) gm/dL Hct (39.0-53.0) % MCHC (31.0-37.0) g/dL RDW (11.5-15.5) % Neutrophils # (1.3-7.7) k/uL Lymphocytes # (1.0-4.8) k/uL Sodium (137-145) mmol/L Potassium (3.5-5.1) mmol/L Chloride (98-107) mmol/L BUN (9-20) mg/dL Creatinine (0.66-1.25) mg/dL Glucose (74-99) mg/dL POC Glucose (mg/dL) 66 L (75-99) mg/dL Calcium (8.4-10.2) mg/dL Microbiology - Last 24 Hours (Table) 04/07/20 13:41 Blood Culture Gram Stain - Preliminary Blood Blood Culture - Preliminary Group D Enterococcus 04/07/20 12:40 Urine Culture - Preliminary Urine,Voided Group D Enterococcus Gram Neg Bacilli Assessment and Plan Assessment: Assessment #1 generalized weakness and fatigue #2 marginal a low blood pressure #3 end stage renal disease on dialysis #4 coronary artery disease #5 mild cardiomyopathy was EF around 45% #6 long-standing persistent atrial fibrillation #7 aortic stenosis #8 multiple comorbid conditions Plan #1 continue the current medical regimen #2 continue oral anticoagulation #3 follow-up with the patient #4 avoid any medication to lower the blood pressure Thank you for allowing us participate in his care
[2020-04-09] MEDS: FINASTERIDE 5 MG TAB PO SCH (10:35)
[2020-04-09] MEDS: FERROUS SULFATE 325 MG TAB PO SCH (10:35)
[2020-04-09] MEDS: ERGOCALCIFEROL 50,000 UNIT CAP PO SCH (10:35)
[2020-04-09] MEDS: APIXABAN 2.5 MG TABLET PO SCH ×2 (10:35→21:48)
[2020-04-09] MEDS: INSULIN DETEMIR (LEVEMIR) 100 UNIT/ML SYR SQ SCH (10:35)
[2020-04-09] MEDS: NON FORMULARY DRUG (Rosuvastatin 10 MG) PO SCH (10:36)
[2020-04-09] MEDS: CALCIUM CARBONATE 500 MG CHEWABLE PO SCH ×2 (10:36→21:48)
[2020-04-09] MEDS: METOPROLOL TARTRATE 25 MG TAB PO SCH ×2 (10:56→21:48)
[2020-04-09] MEDS ORDERED: MIDODRINE 5 MG TAB PO ONE (11:00)
[2020-04-09 11:50] LABS: Glucose,Whole Blood 118 mg/dL (75-99)
--- NOTE | 2020-04-09 13:38 | P.PN ---
Subjective Progress Note Date: 04/09/20 Principal diagnosis: This is a 80-year-old male who was recently admitted with congestive heart failure acute exacerbation and is being closely monitored. Patient is maintained on hemodialysis on Wednesday//Wednesday and nephrology was consulted. Patient to receive hemodialysis tomorrow. Cardiology also following. Patient continues to have some shortness of breath and weakness. Patient's blood culture preliminary showing group D enterococcus in urine culture preliminary showing group D enterococcus with gram-negative bacilli. Patient is currently maintained on Unasyn and will continue at this time given kidney functions. Infectious disease was consulted and pending at this time. Orthostatic vital signs obtained. Patient is continued on IV Lasix at 40 mg ev doris 8 hours and will continue at this time. Patient to continue with DuoNeb treatments. Review of systems: Constitutional: Reports fatigue, no reports of fevers or chills Cardiovascular: No reports of chest pain or palpitation Respiratory: Reports some shortness of breath, no reports of cough GI: No reports of nausea, vomiting, or diarrhea : No reports of dysuria or retention Neurovascular: Reports weakness, no reports of numbness 04/09/2020 Patient is seen and evaluated and follow-up continues to be dyspneic and is currently maintained on 2 L of oxygen via nasal cannula. Patient is currently receiving hemodialysis and nephrology following closely. Infectious disease also following as patient's blood cultures preliminary were showing group D enterococcus in urine culture showing group D enterococcus, Enterobacte amnigenus biogrp 2, and Omaira albicans. Patient is being transitioned to vancomycin and Zosyn has been discontinued. Patient denies any chest pain or palpitations. Patient has been afebrile. Reports of nausea or vomiting patient is tolerating diet. Patient is currently maintained on sliding scale along with long-acting and will continue to monitor closely as patient had an episode of hypoglycemia this morning with a blood sugar of 49. Patient will continue with before meals at bedtime and treat accordingly. Pulmonary and cardiology also following closely. Objective - Vital Signs Vital signs: Vital Signs Temp 98.1 F 04/09/20 00:00 Pulse 68 04/09/20 09:06 Resp 18 04/09/20 04:00 BP 102/64 04/09/20 04:00 Pulse Ox 98 04/09/20 04:00 Intake & Output 04/08/20 04/09/20 04/09/20 18:59 06:59 18:59 Intake Total 880 600 Output Total 75 0 Balance 880 -75 600 Weight 87 kg 91.5 kg Intake: Intake, IV Titration 100 Amount Piperacillin-Tazobactam 3 100 .375 gm In Sodium Chloride 0.9% 100 ml @ 25 mls/hr IVPB Q12H [facility] Rx# :[id number] Oral 780 600 Output: Urine 75 0 Other: Voiding Method Indwelling Catheter Indwelling Catheter - Exam Gen: This is a 80-year-old male lying in bed, awake, alert and oriented 3, well-developed, well-nourished. Temp is 98F, pulse is 78, respirations are 18, blood pressure is 103/62, oxygen saturation is 98% on 2 L via nasal cannula. HEENT: Head is atraumatic, normocephalic. Pupils equal, round. Sclerae is anicteric. NECK: Supple. No JVD. No lymphadenopathy. No thyromegaly. LUNGS: Breath sounds diminished at the bases with a few scattered rhonchi and crackles noted. No intercostal retractions. HEART: Regular rate and rhythm. No murmur. ABDOMEN: Soft. Obese. Bowel sounds are present. No masses. No tenderness. EXTREMITIES: No pedal edema. No calf tenderness. Bilateral lower extremity edema NEUROLOGICAL: Patient is awake, alert and oriented x3. Diffusely weak - Labs CBC & Chem 7: 04/09/20 05:48 04/09/20 05:48 Labs: Abnormal Lab Results - Last 24 Hours (Table) 04/08/20 04/08/20 04/09/20 Range/Units 16:32 20:32 05:48 WBC 12.3 H (3.8-10.6) k/uL RBC 3.69 L (4.30-5.90) m/uL Hgb 9.8 L (13.0-17.5) gm/dL Hct 33.1 L (39.0-53.0) % MCHC 29.6 L (31.0-37.0) g/dL RDW 17.4 H (11.5-15.5) % Neutrophils # 10.6 H (1.3-7.7) k/uL Lymphocytes # 0.3 L (1.0-4.8) k/uL Sodium (137-145) mmol/L Potassium (3.5-5.1) mmol/L Chloride (98-107) mmol/L BUN (9-20) mg/dL Creatinine (0.66-1.25) mg/dL Glucose (74-99) mg/dL POC Glucose (mg/dL) 125 H 153 H (75-99) mg/dL Calcium (8.4-10.2) mg/dL 04/09/20 04/09/20 04/09/20 Range/Units 05:48 06:12 06:24 WBC (3.8-10.6) k/uL RBC (4.30-5.90) m/uL Hgb (13.0-17.5) gm/dL Hct (39.0-53.0) % MCHC (31.0-37.0) g/dL RDW (11.5-15.5) % Neutrophils # (1.3-7.7) k/uL Lymphocytes # (1.0-4.8) k/uL Sodium 133 L (137-145) mmol/L Potassium 5.2 H (3.5-5.1) mmol/L Chloride 95 L (98-107) mmol/L BUN 69 H (9-20) mg/dL Creatinine 5.07 H (0.66-1.25) mg/dL Glucose 49 L* (74-99) mg/dL POC Glucose (mg/dL) 69 L 66 L (75-99) mg/dL Calcium 7.8 L (8.4-10.2) mg/dL Microbiology - Last 24 Hours (Table) 04/07/20 12:40 Urine Culture - Preliminary Urine,Voided Group D Enterococcus Enterobacte amnigenus biogrp 2 Omaira albicans 04/07/20 13:41 Blood Culture Gram Stain - Preliminary Blood Blood Culture - Preliminary Group D Enterococcus Assessment and Plan Assessment: Shortness of breath possibly multifactorial with congestive heart failure, acute exacerbation with acute on chronic systolic dysfunction, ejection fraction 45% with moderate mitral regurgitation, aortic stenosis Possible right pleural effusion Chronic kidney disease end-stage renal disease on hemodialysis, Wed//Wednesday Increased white blood count Anemia, normocytic Rule out right lower lobe pneumonia hyponatremia Elevated AST, ALT Acute urinary tract infection, present on admission Atrial fibrillation chronic history of coronary artery disease History of congestive heart failure Diabetes mellitus type 2 Gastroesophageal reflux disease Hypertension Hyperlipidemia Myocardial infarction history of degenerative joint disease History of bilateral lower extremity cellulitis, ulcers with Klebsiella, Pseudomonas History of diabetes, uncontrolled History of pleural effusion with right side thoracentesis History of paroxysmal atrial flutter Peripheral vascular disease History of benign prostatic hypertrophy History of coronary artery disease, CABG history of urinary retention History of coronary artery disease, stent Obesity with a body mass index of 31 Full code Recommendations and discussion: Recommend continue current medications, management, and symptomatic treatment. Patient is maintained on IV antibiotics in the form of vancomycin and will continue at this time. Zosyn has been discontinued. Infectious disease following. preliminary blood cultures showing group D enterococcus with urine culture finalized showing group D enterococcus, enterobacte amnigenus biogrp 2, and Omaira albicans. Nephrology following as well and patient is currently receiving hemodialysis today. Cardiology also following. Patient is maintained on IV Lasix and will continue at this time. Will repeat a.m. labs along with repeat blood cultures to monitor for clearance of bacteremia. Due to multiple complex medical issues, prognosis is guarded. Further recommendations to follow.
--- NOTE | 2020-04-09 13:57 | P.PN ---
Subjective Progress Note Date: 04/09/20 Principal diagnosis: Hypotension, acute urinary tract infection with sepsis 80-year-old male patient got transferred from dialysis center as the patient's blood pressure was running low and he was unable to tolerate the the treatment. Dialysis was cut short by around 2 hours according to him. He is known to me. He is known to have extensive comorbidities including coronary artery disease, previous bypass surgery, CHF with ejection fraction 45%, mild aortic stenosis, hypertension and hyperlipidemia and the patient has chronic kidney disease and has been started on hemodialysis few months back via a temporary dialysis catheter in his right IJ. He also has history of diabetes mellitus, paroxysmal atrial flutter/fibrillation, peripheral vascular disease, BPH, and a chronic right-sided pleural effusion that was drained in the past where a total of 900 mL of fluid was aspirated from the right lung and the fluid turn down man to be a transudate consistent with CHF. In any rate, the patient does have a Torres catheter. The urine output is quite and there is a suspicion for now underlying urine checked infection as the patient has more than 182 white cells and his urine analysis. Cultures still pending for now. The chest x-ray findings are essentially stable. The patient is stable cardiomegaly and stable loculated right-sided pleural effusion without evidence of any pneumothorax. No reported cough. No reported sputum production. The patient is covered empirically with IV Zosyn for now. He is afebrile. Most recent blood pressure is 97 with 54 with a room air pulse ox of 97%. His breathing is nonlabored. On 04/09/2020 patient seen on the selective care unit, his having a dialysis treatment right now, he states his breathing is comfortable, does not appear to be in any acute distress. On 2 L of oxygen and pulse ox 96%, he is afebrile, hemodynamically he is stable. Urine culture came back positive for group D enterococcus, Enterobacter amnigenus biogroup, and group D enterococcus bacteremia, and currently patient is on vancomycin per ID service recommendations, initially was covered with Zosyn. Patient continues on IV Lasix at 40 mg every 8 hours. Lung sounds are clear diminished at the bases, no significant rhonchi or wheezing, no cough or congestion. No couplets or chest pain. Objective - Vital Signs Vital signs: Vital Signs Temp 97.5 F L 04/09/20 12:00 Pulse 60 04/09/20 12:28 Resp 18 04/09/20 12:00 BP 136/74 04/09/20 12:00 Pulse Ox 96 04/09/20 12:00 Intake & Output 04/08/20 04/09/20 04/09/20 18:59 06:59 18:59 Intake Total 880 600 Output Total 75 0 Balance 880 -75 600 Weight 87 kg 91.5 kg Intake: Intake, IV Titration 100 Amount Piperacillin-Tazobactam 3 100 .375 gm In Sodium Chloride 0.9% 100 ml @ 25 mls/hr IVPB Q12H [facility] Rx# :[id number] Oral 780 600 Output: Urine 75 0 Other: Voiding Method Indwelling Catheter Indwelling Catheter Indwelling Catheter - Exam GENERAL EXAM: Alert, very pleasant, 72-year-old white male, on 2 L of oxygen the pulse ox of 96%, resting comfortably in bed, currently getting hemodialysis comfortable in no apparent distress. HEAD: Normocephalic/atraumatic. EYES: Normal reaction of pupils, equal size. Conjunctiva pink, sclera white. NOSE: Clear with pink turbinates. THROAT: No erythema or exudates. NECK: No masses, no JVD, no thyroid enlargement, no adenopathy. Right IJ dialysis catheter CHEST: No chest wall deformity. Symmetrical expansion. LUNGS: Equal air entry with no crackles, wheeze, rhonchi or dullness. CVS: Regular rate and rhythm, normal S1 and S2, no gallops, no murmurs, no rubs ABDOMEN: Soft, nontender. No hepatosplenomegaly, normal bowel sounds, no guarding or rigidity. EXTREMITIES: No clubbing, mild pretibial edema, no cyanosis, 2+ pulses and upper and lower extremities. MUSCULOSKELETAL: Muscle strength and tone normal. SPINE: No scoliosis or deformity SKIN: No rashes CENTRAL NERVOUS SYSTEM: Alert and oriented -3. No focal deficits, tone is normal in all 4 extremities. PSYCHIATRIC: Alert and oriented -3. Appropriate affect. Intact judgment and insight. - Labs CBC & Chem 7: 04/09/20 05:48 04/09/20 05:48 Labs: Abnormal Lab Results - Last 24 Hours (Table) 04/08/20 04/08/20 04/09/20 Range/Units 16:32 20:32 05:48 WBC 12.3 H (3.8-10.6) k/uL RBC 3.69 L (4.30-5.90) m/uL Hgb 9.8 L (13.0-17.5) gm/dL Hct 33.1 L (39.0-53.0) % MCHC 29.6 L (31.0-37.0) g/dL RDW 17.4 H (11.5-15.5) % Neutrophils # 10.6 H (1.3-7.7) k/uL Lymphocytes # 0.3 L (1.0-4.8) k/uL Sodium (137-145) mmol/L Potassium (3.5-5.1) mmol/L Chloride (98-107) mmol/L BUN (9-20) mg/dL Creatinine (0.66-1.25) mg/dL Glucose (74-99) mg/dL POC Glucose (mg/dL) 125 H 153 H (75-99) mg/dL Calcium (8.4-10.2) mg/dL 04/09/20 04/09/20 04/09/20 Range/Units 05:48 06:12 06:24 WBC (3.8-10.6) k/uL RBC (4.30-5.90) m/uL Hgb (13.0-17.5) gm/dL Hct (39.0-53.0) % MCHC (31.0-37.0) g/dL RDW (11.5-15.5) % Neutrophils # (1.3-7.7) k/uL Lymphocytes # (1.0-4.8) k/uL Sodium 133 L (137-145) mmol/L Potassium 5.2 H (3.5-5.1) mmol/L Chloride 95 L (98-107) mmol/L BUN 69 H (9-20) mg/dL Creatinine 5.07 H (0.66-1.25) mg/dL Glucose 49 L* (74-99) mg/dL POC Glucose (mg/dL) 69 L 66 L (75-99) mg/dL Calcium 7.8 L (8.4-10.2) mg/dL 04/09/20 Range/Units 11:46 WBC (3.8-10.6) k/uL RBC (4.30-5.90) m/uL Hgb (13.0-17.5) gm/dL Hct (39.0-53.0) % MCHC (31.0-37.0) g/dL RDW (11.5-15.5) % Neutrophils # (1.3-7.7) k/uL Lymphocytes # (1.0-4.8) k/uL Sodium (137-145) mmol/L Potassium (3.5-5.1) mmol/L Chloride (98-107) mmol/L BUN (9-20) mg/dL Creatinine (0.66-1.25) mg/dL Glucose (74-99) mg/dL POC Glucose (mg/dL) 118 H (75-99) mg/dL Calcium (8.4-10.2) mg/dL Microbiology - Last 24 Hours (Table) 04/07/20 12:40 Urine Culture - Preliminary Urine,Voided Group D Enterococcus Enterobacte amnigenus biogrp 2 Omaira albicans 04/07/20 13:41 Blood Culture Gram Stain - Preliminary Blood Blood Culture - Preliminary Group D Enterococcus Assessment and Plan Plan: Assessment: 1 hypotension currently under investigation related to enterococcus bacteremia related to urinary tract infection with urine cultures positive for enterococcus group D organism, was initially covered with Zosyn, currently on vancomycin final urine culture and blood culture pending 2 End stage renal disease currently on hemodialysis. The patient has done dialysis for the past 2 month 3 small bilateral pleural effusions, and the patient has had a loculated right- sided pleural effusion and a previous drainage of the right lung yielded into a non-cc of pleural fluid that was a transudate. 4 CHF with ejection fraction 45% and mild aortic stenosis and moderate mitral regurgitation. Echocardiac Richard is to be repeated. The patient has mild systolic heart failure 5 chronic atrial fibrillation maintained on Eliquis on outpatient basis 6 diabetes mellitus 7 hypertension 8 hyperlipidemia 9 coronary artery disease with previous bypass surgery that was performed in December 2018 10 history of iron deficiency anemia with a positive occult blood in the stool 11 anemia of chronic disease 12 generalized weakness and fatigue with a marginally low blood pressure Plan: Hemodynamically stable, afebrile, no cognitive worsening shortness of breath, no altered mentation, patient has been switched to vancomycin for enterococcus group D bacteremia and urinary tract infection, final cultures are pending. No pulmonary complaints, we'll continue to follow I performed a history & physical examination of the patient and discussed their management with my nurse practitioner, Demetria Ramos. I reviewed the nurse practitioner's note and agree with the documented findings and plan of care. Lung sounds are positive for diminished breath sounds. The findings and the impression was discussed with the patient. I attest to the documentation by the nurse practitioner. Time with Patient: Less than 30
--- NOTE | 2020-04-09 16:25 | PN ---
PROGRESS NOTE DATE OF SERVICE: 04/09/2020 REASON FOR FOLLOWUP: Enterococcus bacteremia. Source likely urinary. INTERVAL HISTORY: The patient is currently afebrile. The patient is breathing comfortably. The patient denies having any chest pain or shortness of breath or cough. No nausea or vomiting. No abdominal pain or diarrhea. PHYSICAL EXAMINATION: Blood pressure 136/74 with a pulse of 79, temperature 97.5. He is 96% on room air. General description is an elderly male lying in bed in no distress. RESPIRATORY SYSTEM: Unlabored breathing. Clear to auscultation anteriorly. HEART: S1, S2. Regular rate and rhythm. ABDOMEN: Soft. No tenderness. LEGS: Two plus edema of feet. Minimal redness. No drainage. LABS: Hemoglobin is 9.8, white count 12.3, BUN of 69, creatinine 5.07. Urine has been finalized with multiple pathogens, including enterococcus, enterobacter and terrence, group D enterococcus. DIAGNOSTIC IMPRESSION AND PLAN: Patient with group D enterococcus bacteremia, source likely urinary. Urine also shows other pathogens, but they have low colony count, possible contamination or colonization. Will keep the patient on vancomycin while waiting for the ID and sensitivities on the enterococcus as well as follow-up blood cultures. Continue supportive care. MMODL / IJN: [id number] /
[2020-04-09 17:15] LABS: Glucose,Whole Blood 102 mg/dL (75-99)
--- NOTE | 2020-04-09 17:19 | PN ---
PROGRESS NOTE Patient is seen for followup for end-stage renal disease. He is currently seen on dialysis, tolerating his treatment well. Blood pressure has been about 120-110 mmHg. The patient did receive a dose of midodrine. He currently has no significant complaints. PHYSICAL EXAMINATION: On examination today, blood pressure 110/62 on hemodialysis. Heart rate about 70 per minute, he is afebrile. Examination shows 3+ edema bilateral lower extremities. Abdomen is soft, nontender. Breath sounds are heard bilaterally. INFORMATION ANALYST exam grossly intact. LABS: Show hemoglobin 9.8 g/dL, sodium 133, potassium 5.2 today, glucose was 49. ASSESSMENT: 1. End-stage renal disease, on hemodialysis on a Wednesday, , Wednesday schedule. 2. Volume overload, increase UF with hemodialysis. 3. Anemia of chronic disease. 4. CKD mineral bone disorder maintained on PhosLo. PLAN: Repeat a dose of midodrine while on dialysis and increase UF to about 2.5 L. Next treatment on 04/11/2020. KRISTAL / CHAYON: [id number] /
[2020-04-09 20:56] LABS: Glucose,Whole Blood 120 mg/dL (75-99)
[2020-04-09] MEDS: MELATONIN 5 MG TABLET PO SCH (21:48)
[2020-04-09] MEDS: HYDROcodone/APAP 5-325MG 1 EACH TAB PO PRN (23:19)
[2020-04-10 01:06] LABS: Glucose,Whole Blood 71 mg/dL (75-99)
[2020-04-10 03:34] LABS: Glucose,Whole Blood 96 mg/dL (75-99)
[2020-04-10] MEDS: HYDROcodone/APAP 5-325MG 1 EACH TAB PO PRN ×2 (05:21→18:22)
[2020-04-10] MEDS: MIDODRINE 5 MG TAB PO SCH ×3 (06:14→18:22)
[2020-04-10] MEDS: CALCIUM ACETATE 667 MG TAB PO SCH ×3 (06:14→18:23)
[2020-04-10] MEDS: PANTOPRAZOLE 40 MG TABLET PO SCH (06:14)
[2020-04-10] MEDS: ASCORBIC ACID 500 MG TAB PO SCH ×2 (06:14→18:22)
[2020-04-10 06:26] LABS: Glucose,Whole Blood 105 mg/dL (75-99)
[2020-04-10] MEDS: INSULIN ASPART (NovoLOG) 100 UNIT/ML VIAL SQ SCH ×4 (06:37→20:12)
[2020-04-10 08:00] LABS: Glucose,Whole Blood 102 mg/dL (75-99)
[2020-04-10 08:22] LABS: Anisocytosis Slight; Basophils # (A) 0.1 k/uL (0-0.2); Basophils % (A) 0 %; Eosinophils # (A) 0.3 k/uL (0-0.7); Eosinophils % (A) 2 %; HCT 34.4 % (39.0-53.0); HGB 10.3 gm/dL (13.0-17.5); Hypochromasia Marked; Lymphocytes # (A) 0.4 k/uL (1.0-4.8); Lymphocytes % (A) 2 %; MCH 27.1 pg (25.0-35.0); MCV 90.2 fL (80.0-100.0); Mean Platelet Volume 7.5; Monocytes # (A) 1.3 k/uL (0-1.0); Monocytes % (A) 8 %; Neutrophils # (A) 13.9 k/uL (1.3-7.7); Neutrophils % (A) 86 %; Platelet Count 172 k/uL (150-450); RBC 3.82 m/uL (4.30-5.90); RDW 17.2 % (11.5-15.5); WBC 16.3 k/uL (3.8-10.6)
[2020-04-10] MEDS: NON FORMULARY DRUG (Rosuvastatin 10 MG) PO SCH (08:24)
[2020-04-10] MEDS: IPRATROPIUM-ALBUTEROL 3 ML NEB INHALATION SCH ×3 (08:30→20:22)
[2020-04-10 08:32] LABS: Potassium 4.8 mmol/L (3.5-5.1)
[2020-04-10] MEDS: INSULIN DETEMIR (LEVEMIR) 100 UNIT/ML SYR SQ SCH (08:41)
[2020-04-10] MEDS: FUROSEMIDE 10 MG/ML 4 ML VIAL IV SCH ×3 (08:41→23:57)
[2020-04-10] MEDS: metOLazone 2.5 MG TAB PO SCH (08:41)
[2020-04-10] MEDS: CALCIUM CARBONATE 500 MG CHEWABLE PO SCH ×2 (08:41→20:16)
[2020-04-10] MEDS: APIXABAN 2.5 MG TABLET PO SCH ×2 (08:41→20:16)
[2020-04-10] MEDS: FERROUS SULFATE 325 MG TAB PO SCH (08:41)
[2020-04-10] MEDS: METOPROLOL TARTRATE 25 MG TAB PO SCH ×2 (08:41→20:16)
[2020-04-10] MEDS: FINASTERIDE 5 MG TAB PO SCH (08:41)
--- NOTE | 2020-04-10 11:51 | CDI ---
Documentation Clarification Form Date: 04/10/2020 11:27:22 AM From: Jenna Nagel CCS, CCDS Admit Date: 04/07/2020 01:21:00 PM Patient Name: Neto Brice Visit Number: [id number] Discharge Date: ATTENTION: The Clinical Documentation Specialists (CDI) and [facility] Coding Staff appreciate your assistance in clarifying documentation. Please respond to the clarification below the line at the bottom and electronically sign. The CDI & [facility] Coding staff will review the response and follow-up if needed. Please note: Queries are made part of the Legal Health Record. If you have any questions, please contact the author of this message via ITS. Dr. Elvira Stoddard: Per the 04/09 Attending Progress Note: "Hypotension, acute urinary tract infection with sepsis." Per the 04/08 Pulmonary Consult: "Rule out underlying infection/sepsis and the patient has possibly an underlying UTI with cloudy urine with an abnormal urinalysis." Per the 04/08 Nephrology Consult: "Hypotension, no evidence of sepsis." Per the 04/08 Infectious Disease Consult: "Patient with Enterococcus faecalis bacteremia and this patient admitted to the hospital with low blood pressure during dialysis also had elevated white count, no fever with concern for possible Permacath infection however it may have started with the catheter associated UTI as the patient did have (chronic daily for the catheter)" History/Risk Factors: CAD status post CABG & coronary stents, [place] 12/08/2018; Atrial Fibrillation, CHF, DM, GERD, Hypertension, CKD on Hemodialysis, Multiple UTIs, Cellulitis & Ulcers. Recently admitted with CHF acute exacerbation. Clinical Indicators: Presented to the ED on 04/07 with urinary "cath" issues via EMS. Complaining of generalized weakness & SOB. Per ED exam: crackles in right lung, Leukocytosis, UTI. Admitted with Acute on Chronic Systolic CHF, rule out RLL pneumonia, rule out UTI. VS: T 98.4, P 83, R 18, BP 112/75, PO 89 RA LAB 04/07: WBC 16.5^, Neut 14.8^, Lactic Acid (1.0). UA 04/07: Turbid, 3+ protein, Mod blood, Large esterase, RBC 154, WBC >182. Urine Culture 04/07: Enterococcus faecalis, Omaira albicans (final) Blood Culture 8/2: Enterococcus faecalis (final) Blood Culture 04/10: Group D Enterococcus (prelim) RAD: CXR: fluid overload, pneumonia right lung, Cardiomegaly. Treatment: IV Zosyn, IV Levaquin, IV fluid bolus 500 mls @ 999/hr, IV Lasix, INH Albuterol, O2 2Lnc. IV Vancomycin started 04/09. In your professional opinion, please clarify if these findings signify one of the following conditions, whether the condition is POA, and cause, if known: Sepsis ruled out Sepsis ruled in, please specify cause and/or organism if known, present on admission: o Due to Urinary Catheter o Due to IJ PermACath o Due to Group D Enterococcus Bacteremia, o Due to Pneumonia, please specify type if known: With or Without Severe Sepsis With or Without Septic Shock Other, please specify Unable to determine (Last Revision: December 2017) Sepsis ruled in, o Due to Group D Enterococcus Bacteremia, MTDD
[2020-04-10 12:24] LABS: Glucose,Whole Blood 148 mg/dL (75-99)
--- NOTE | 2020-04-10 13:08 | P.PN ---
Subjective Progress Note Date: 04/10/20 Principal diagnosis: Hypotension, urinary tract infection with sepsis 80-year-old male patient got transferred from dialysis center as the patient's blood pressure was running low and he was unable to tolerate the the treatment. Dialysis was cut short by around 2 hours according to him. He is known to me. He is known to have extensive comorbidities including coronary artery disease, previous bypass surgery, CHF with ejection fraction 45%, mild aortic stenosis, hypertension and hyperlipidemia and the patient has chronic kidney disease and has been started on hemodialysis few months back via a temporary dialysis catheter in his right IJ. He also has history of diabetes mellitus, paroxysmal atrial flutter/fibrillation, peripheral vascular disease, BPH, and a chronic r ight-sided pleural effusion that was drained in the past where a total of 900 mL of fluid was aspirated from the right lung and the fluid returned materials inspector to be a transudate consistent with CHF. In any rate, the patient does have a Torres catheter. The urine output is quite and there is a suspicion for now underlying urine checked infection as the patient has more than 182 white cells and his urine analysis. Cultures still pending for now. The chest x-ray findings are essentially stable. The patient is stable cardiomegaly and stable loculated right-sided pleural effusion without evidence of any pneumothorax. No reported cough. No reported sputum production. The patient is covered empirically with IV Zosyn for now. He is afebrile. Most recent blood pressure is 97 with 54 with a room air pulse ox of 97%. His breathing is nonlabored. On 04/09/2020 patient seen on the selective care unit, his having a dialysis treatment right now, he states his breathing is comfortable, does not appear to be in any acute distress. On 2 L of oxygen and pulse ox 96%, he is afebrile, hemodynamically he is stable. Urine culture came back positive for group D enterococcus, Enterobacter amnigenus biogroup, and group D enterococcus bacteremia, and currently patient is on vancomycin per ID service recom mendations, initially was covered with Zosyn. Patient continues on IV Lasix at 40 mg every 8 hours. Lung sounds are clear diminished at the bases, no significant rhonchi or wheezing, no cough or congestion. No couplets or chest pain. The patient was seen today 04/10/2020 in follow-up on the selective care unit. He is currently resting comfortably in bed. Awake and alert in no acute distress. Denies any worsening shortness of breath, cough or congestion. He did receive hemodialysis yesterday with 2.5 L of fluid removed. Follow-up blood cultures are positive for group D enterococcus with initial cultures positive for Enterococcus faecalis. Urine culture positive for Enterococcus faecalis. He is currently on vancomycin. Remains on bronchodilators and IV diuretics. Objective - Vital Signs Vital signs: Vital Signs Temp 97.7 F 04/10/20 08:00 Pulse 68 04/10/20 12:16 Resp 16 04/10/20 08:00 BP 118/77 04/10/20 08:00 Pulse Ox 96 04/10/20 08:00 Intake & Output 04/09/20 04/10/20 04/10/20 18:59 06:59 18:59 Intake Total 720 50 40 Output Total 2600 100 Balance -1880 -50 40 Weight 86 kg Intake: IV 40 sodium chloride @ KVO 40 Oral 720 50 Output: Urine 100 100 Uretheral (Torres) 100 Hemodialysis 2500 Other: Voiding Method Indwelling Catheter Indwelling Catheter Indwelling Catheter - Exam GENERAL EXAM: Alert, very pleasant, 72-year-old male patient, on 2 L of oxygen the pulse ox of 96%, resting comfortably in bed, comfortable in no apparent distress. HEAD: Normocephalic/atraumatic. EYES: Normal reaction of pupils, equal size. Conjunctiva pink, sclera white. NOSE: Clear with pink turbinates. THROAT: No erythema or exudates. NECK: No masses, no JVD, no thyroid enlargement, no adenopathy. Right IJ dialysis catheter CHEST: No chest wall deformity. Symmetrical expansion. LUNGS: Equal air entry with bibasilar crackles right greater than left. CVS: Regular rate and rhythm, normal S1 and S2, no gallops, no murmurs, no rubs ABDOMEN: Soft, nontender. No hepatosplenomegaly, normal bowel sounds, no guarding or rigidity. EXTREMITIES: No clubbing, mild pretibial edema, no cyanosis, 2+ pulses and upper and lower extremities. MUSCULOSKELETAL: Muscle strength and tone normal. SPINE: No scoliosis or deformity SKIN: No rashes CENTRAL NERVOUS SYSTEM: No focal deficits, tone is normal in all 4 extremities. PSYCHIATRIC: Alert and oriented -3. Appropriate affect. Intact judgment and insight. - Labs CBC & Chem 7: 04/10/20 07:52 04/10/20 07:52 Labs: Abnormal Lab Results - Last 24 Hours (Table) 04/09/20 04/09/20 04/10/20 Range/Units 17:02 20:54 01:04 WBC (3.8-10.6) k/uL RBC (4.30-5.90) m/uL Hgb (13.0-17.5) gm/dL Hct (39.0-53.0) % MCHC (31.0-37.0) g/dL RDW (11.5-15.5) % Neutrophils # (1.3-7.7) k/uL Lymphocytes # (1.0-4.8) k/uL Monocytes # (0-1.0) k/uL Sodium (137-145) mmol/L BUN (9-20) mg/dL Creatinine (0.66-1.25) mg/dL POC Glucose (mg/dL) 102 H 120 H 71 L (75-99) mg/dL Calcium (8.4-10.2) mg/dL 04/10/20 04/10/20 04/10/20 Range/Units 06:24 07:49 07:52 WBC 16.3 H (3.8-10.6) k/uL RBC 3.82 L (4.30-5.90) m/uL Hgb 10.3 L (13.0-17.5) gm/dL Hct 34.4 L (39.0-53.0) % MCHC 30.0 L (31.0-37.0) g/dL RDW 17.2 H (11.5-15.5) % Neutrophils # 13.9 H (1.3-7.7) k/uL Lymphocytes # 0.4 L (1.0-4.8) k/uL Monocytes # 1.3 H (0-1.0) k/uL Sodium (137-145) mmol/L BUN (9-20) mg/dL Creatinine (0.66-1.25) mg/dL POC Glucose (mg/dL) 105 H 102 H (75-99) mg/dL Calcium (8.4-10.2) mg/dL 04/10/20 04/10/20 Range/Units 07:52 12:23 WBC (3.8-10.6) k/uL RBC (4.30-5.90) m/uL Hgb (13.0-17.5) gm/dL Hct (39.0-53.0) % MCHC (31.0-37.0) g/dL RDW (11.5-15.5) % Neutrophils # (1.3-7.7) k/uL Lymphocytes # (1.0-4.8) k/uL Monocytes # (0-1.0) k/uL Sodium 133 L (137-145) mmol/L BUN 44 H (9-20) mg/dL Creatinine 3.76 H (0.66-1.25) mg/dL POC Glucose (mg/dL) 148 H (75-99) mg/dL Calcium 8.0 L (8.4-10.2) mg/dL Microbiology - Last 24 Hours (Table) 04/09/20 10:40 Blood Culture Gram Stain - Preliminary Blood Blood Culture - Preliminary Group D Enterococcus 04/09/20 05:48 Blood Culture - Preliminary Blood No Growth after 24 hours 04/07/20 13:41 Blood Culture Gram Stain - Final Blood Blood Culture - Final Enterococcus faecalis 04/09/20 10:40 Blood Culture - Final Blood 04/08/20 14:20 Blood Culture - Preliminary Blood No Growth after 24 hours 04/07/20 12:40 Urine Culture - Final Urine,Voided Enterococcus faecalis Enterobacte amnigenus biogrp 2 Omaira albicans Assessment and Plan Assessment: 1 hypotension currently under investigation related to enterococcus bacteremia related to urinary tract infection with urine cultures positive for enterococcus faecalis was initially covered with Zosyn, currently on vancomycin final urine culture and blood culture both positive for Enterococcus faecalis 2 End stage renal disease currently on hemodialysis. The patient has done dialysis for the past 2 month 3 small bilateral pleural effusions, and the patient has had a loculated right- sided pleural effusion and a previous drainage of the right lung yielded into a non-cc of pleural fluid that was a transudate. 4 CHF with ejection fraction 45% and mild aortic stenosis and moderate mitral regurgitation. Echocardiac Richard is to be repeated. The patient has mild systolic heart failure 5 chronic atrial fibrillation maintained on Eliquis on outpatient basis 6 diabetes mellitus 7 hypertension 8 hyperlipidemia 9 coronary artery disease with previous bypass surgery that was performed in December 2018 10 history of iron deficiency anemia with a positive occult blood in the stool 11 anemia of chronic disease 12 generalized weakness and fatigue with a marginally low blood pressure Plan: The patient was seen and evaluated by Dr. Jacob Currently stable from the pulmonary standpoint Continue the current treatment plan We'll continue to follow I, the cosigning physician, performed a history & physical examination of the patient. Lungs sounds with crackles in the bilateral posterior bases, right greater than left. Maintaining good O2 saturations in the 90s on 2 L/m per nasal cannula. I discussed the assessment and plan of care with my nurse practitioner, Page Cervantes. I attest to the above note as dictated by her.
[2020-04-10] MEDS ORDERED: VANCOMYCIN 1,500 MG in SODIUM CHLORIDE 0.9% 250 ML IVPB ONE (14:00)
[2020-04-10] MEDS: AMPICILLIN-SULBACTAM 3 GM in SODIUM CHLORIDE 0.9% 100 ML IVPB SCH (14:15)
--- NOTE | 2020-04-10 14:23 | P.PN ---
Subjective Progress Note Date: 04/10/20 Principal diagnosis: This is a 80-year-old male who was recently admitted with congestive heart failure acute exacerbation and is being closely monitored. Patient is maintained on hemodialysis on Wednesday//Wednesday and nephrology was consulted. Patient to receive hemodialysis tomorrow. Cardiology also following. Patient continues to have some shortness of breath and weakness. Patient's blood culture preliminary showing group D enterococcus in urine culture preliminary showing group D enterococcus with gram-negative bacilli. Patient is currently maintained on Unasyn and will continue at this time given kidney functions. Infectious disease was consulted and pending at this time. Orthostatic vital signs obtained. Patient is continued on IV Lasix at 40 mg ev doris 8 hours and will continue at this time. Patient to continue with DuoNeb treatments. Review of systems: Constitutional: Reports fatigue, no reports of fevers or chills Cardiovascular: No reports of chest pain or palpitation Respiratory: Reports some shortness of breath, no reports of cough GI: No reports of nausea, vomiting, or diarrhea : No reports of dysuria or retention Neurovascular: Reports weakness, no reports of numbness 04/09/2020 Patient is seen and evaluated and follow-up continues to be dyspneic and is currently maintained on 2 L of oxygen via nasal cannula. Patient is currently receiving hemodialysis and nephrology following closely. Infectious disease also following as patient's blood cultures preliminary were showing group D enterococcus in urine culture showing group D enterococcus, Enterobacte amnigenus biogrp 2, and Omaira albicans. Patient is being transitioned to vancomycin and Zosyn has been discontinued. Patient denies any chest pain or palpitations. Patient has been afebrile. Reports of nausea or vomiting patient is tolerating diet. Patient is currently maintained on sliding scale along with long-acting and will continue to monitor closely as patient had an episode of hypoglycemia this morning with a blood sugar of 49. Patient will continue with before meals at bedtime and treat accordingly. Pulmonary and cardiology also following closely. 04/10/2020 Patient is seen in follow-up today status post hemodialysis yesterday states his breathing has improved. Patient is being closely monitored. Multiple medical consultations following including pulmonary, nephrology, and infectious disease. Repeat Blood cultures preliminary showing group D enterococcus and previous cultures finalized showing enterococcus faecalis along with multiple other organisms. Patient is continued on IV antibiotic therapy in the form of vancomycin and will continue at this time. Will continue with blood cultures while waiting for clearance of bacteremia. Patient is maintained on dialysis Wednesday//Wednesday and will receive hemodialysis in the morning. Case management and social work following as patient currently resides at an [facility] home in may possibly need SNF placement is continued IV antibiotic therapy is necessary. Will continue to monitor closely. Review of systems: Constitutional: No reports of fevers or chills, reports some fatigue Cardiovascular: No reports of chest pain or palpitations Respiratory: Reports mild shortness of breath, no reports of cough GI: No reports of nausea, vomiting, or diarrhea : No reports of dysuria or retention Neurovascular: No reports of weakness or numbness Active Medications Acetaminophen (Tylenol Tab) 500 mg PO Q6HR PRN PRN Reason: Fever and/ or Pain Hydrocodone Bitart/Acetaminophen ([place] 5-325) 1 each PO Q4HR PRN PRN Reason: Pain Last Admin: 04/10/20 05:21 Dose: 1 each Documented by: Albuterol/Ipratropium (Duoneb 0.5 Mg-3 Mg/3 Ml Soln) 3 ml INHALATION RT-TID [facility] Last Admin: 04/10/20 12:00 Dose: 3 ml Documented by: Albuterol/Ipratropium (Duoneb 0.5 Mg-3 Mg/3 Ml Soln) 3 ml INHALATION RT-TID PRN PRN Reason: Shortness Of Breath Or Wheezing Apixaban (Eliquis) 2.5 mg PO BID [facility] Last Admin: 04/10/20 08:41 Dose: 2.5 mg Documented by: Ascorbic Acid (Vitamin C) 500 mg PO BID-W/MEALS [facility] Last Admin: 04/10/20 06:14 Dose: 500 mg Documented by: Bacitracin (Bacitracin Zinc Oint) 1 applic TOPICAL BID PRN PRN Reason: INFECTION Calcium Acetate (Phoslo) 667 mg PO TID-W/MEALS [facility] Last Admin: 04/10/20 12:38 Dose: 667 mg Documented by: Calcium Carbonate/Glycine (Tums) 1,000 mg PO BID [facility] Last Admin: 04/10/20 08:41 Dose: 1,000 mg Documented by: Docusate Sodium (Colace) 100 mg PO DAILY PRN PRN Reason: Constipation Ergocalciferol (Vitamin D2) 50,000 unit PO Q72H [facility] Last Admin: 04/09/20 10:35 Dose: 50,000 unit Documented by: Ferrous Sulfate (Feosol) 325 mg PO DAILY [facility] Last Admin: 04/10/20 08:41 Dose: 325 mg Documented by: Finasteride (Proscar) 5 mg PO DAILY [facility] Last Admin: 04/10/20 08:41 Dose: 5 mg Documented by: Furosemide (Lasix) 40 mg IV Q8HR [facility] Last Admin: 04/10/20 08:41 Dose: 40 mg Documented by: Hydromorphone HCl (Dilaudid) 0.5 mg IVP Q6HR PRN PRN Reason: Pain Ampicillin Sodium/Sulbactam (Sodium 3 gm/ Sodium Chloride) 100 mls @ 200 mls/hr IVPB Q24HR [facility] Last Admin: 04/10/20 14:15 Dose: 200 mls/hr Documented by: Insulin Aspart (Novolog) 0 unit SQ ACHS [facility]; Protocol Last Admin: 04/10/20 12:38 Dose: 1 unit Documented by: Insulin Detemir (Levemir) 10 unit SQ DAILY [facility] Last Admin: 04/10/20 08:41 Dose: 10 unit Documented by: Lactic Acid (Ammonium Lactate) 1 applic TOPICAL BID PRN PRN Reason: Dry Skin Melatonin (Melatonin) 5 mg PO HS [facility] Last Admin: 04/09/20 21:48 Dose: 5 mg Documented by: Metolazone (Zaroxolyn) 2.5 mg PO Q48H [facility] Last Admin: 04/10/20 08:41 Dose: 2.5 mg Documented by: Metoprolol Tartrate (Lopressor) 25 mg PO BID [facility] Last Admin: 04/10/20 08:41 Dose: 25 mg Documented by: Midodrine (Proamatine) 10 mg PO AC-TID [facility] Last Admin: 04/10/20 12:32 Dose: Not Given Documented by: Naloxone HCl (Narcan) 0.2 mg IV Q2M PRN PRN Reason: Opioid Reversal Non-Formulary Medication (Rosuvastatin) 10 mg PO DAILY [facility] Last Admin: 04/10/20 08:24 Dose: Not Given Documented by: Ondansetron HCl (Zofran) 4 mg PO TID PRN PRN Reason: Nausea Pantoprazole Sodium (Protonix) 40 mg PO AC-BRKFST [facility] Last Admin: 04/10/20 06:14 Dose: 40 mg Documented by: Objective - Vital Signs Vital signs: Vital Signs Temp 97.7 F 04/10/20 08:00 Pulse 68 04/10/20 12:16 Resp 16 04/10/20 08:00 BP 118/77 04/10/20 08:00 Pulse Ox 96 04/10/20 08:00 Intake & Output 04/09/20 04/10/20 04/10/20 18:59 06:59 18:59 Intake Total 720 50 40 Output Total 2600 100 Balance -1880 -50 40 Weight 86 kg Intake: IV 40 sodium chloride @ KVO 40 Oral 720 50 Output: Urine 100 100 Uretheral (Torres) 100 Hemodialysis 2500 Other: Voiding Method Indwelling Catheter Indwelling Catheter Indwelling Catheter - Exam Gen: This is a 80-year-old male lying in bed, awake, alert and oriented 3, well-developed, well-nourished. Temp is 97.7F, pulse is 80, respirations are 16, blood pressure is 118/77, oxygen saturation is 96% on 2 L via nasal cannula. HEENT: Head is atraumatic, normocephalic. Pupils equal, round. Sclerae is anicteric. NECK: Supple. No JVD. No lymphadenopathy. No thyromegaly. LUNGS: Breath sounds diminished at the bases with a few scattered rhonchi and crackles noted. No intercostal retractions. HEART: Regular rate and rhythm. No murmur. ABDOMEN: Soft. Obese. Bowel sounds are present. No masses. No tenderness. EXTREMITIES: No pedal edema. No calf tenderness. Bilateral lower extremity edema NEUROLOGICAL: Patient is awake, alert and oriented x3. Diffusely weak - Labs CBC & Chem 7: 04/10/20 07:52 04/10/20 07:52 Labs: Abnormal Lab Results - Last 24 Hours (Table) 04/09/20 04/09/20 04/10/20 Range/Units 17:02 20:54 01:04 WBC (3.8-10.6) k/uL RBC (4.30-5.90) m/uL Hgb (13.0-17.5) gm/dL Hct (39.0-53.0) % MCHC (31.0-37.0) g/dL RDW (11.5-15.5) % Neutrophils # (1.3-7.7) k/uL Lymphocytes # (1.0-4.8) k/uL Monocytes # (0-1.0) k/uL Sodium (137-145) mmol/L BUN (9-20) mg/dL Creatinine (0.66-1.25) mg/dL POC Glucose (mg/dL) 102 H 120 H 71 L (75-99) mg/dL Calcium (8.4-10.2) mg/dL 04/10/20 04/10/20 04/10/20 Range/Units 06:24 07:49 07:52 WBC 16.3 H (3.8-10.6) k/uL RBC 3.82 L (4.30-5.90) m/uL Hgb 10.3 L (13.0-17.5) gm/dL Hct 34.4 L (39.0-53.0) % MCHC 30.0 L (31.0-37.0) g/dL RDW 17.2 H (11.5-15.5) % Neutrophils # 13.9 H (1.3-7.7) k/uL Lymphocytes # 0.4 L (1.0-4.8) k/uL Monocytes # 1.3 H (0-1.0) k/uL Sodium (137-145) mmol/L BUN (9-20) mg/dL Creatinine (0.66-1.25) mg/dL POC Glucose (mg/dL) 105 H 102 H (75-99) mg/dL Calcium (8.4-10.2) mg/dL 04/10/20 04/10/20 Range/Units 07:52 12:23 WBC (3.8-10.6) k/uL RBC (4.30-5.90) m/uL Hgb (13.0-17.5) gm/dL Hct (39.0-53.0) % MCHC (31.0-37.0) g/dL RDW (11.5-15.5) % Neutrophils # (1.3-7.7) k/uL Lymphocytes # (1.0-4.8) k/uL Monocytes # (0-1.0) k/uL Sodium 133 L (137-145) mmol/L BUN 44 H (9-20) mg/dL Creatinine 3.76 H (0.66-1.25) mg/dL POC Glucose (mg/dL) 148 H (75-99) mg/dL Calcium 8.0 L (8.4-10.2) mg/dL Microbiology - Last 24 Hours (Table) 04/09/20 10:40 Blood Culture Gram Stain - Preliminary Blood Blood Culture - Preliminary Group D Enterococcus 04/09/20 05:48 Blood Culture - Preliminary Blood No Growth after 24 hours 04/07/20 13:41 Blood Culture Gram Stain - Final Blood Blood Culture - Final Enterococcus faecalis 04/09/20 10:40 Blood Culture - Final Blood 04/08/20 14:20 Blood Culture - Preliminary Blood No Growth after 24 hours 04/07/20 12:40 Urine Culture - Final Urine,Voided Enterococcus faecalis Enterobacte amnigenus biogrp 2 Omaira albicans Assessment and Plan Assessment: Shortness of breath possibly multifactorial with congestive heart failure, acute exacerbation with acute on chronic systolic dysfunction, ejection fraction 45% with moderate mitral regurgitation, aortic stenosis Possible right pleural effusion Chronic kidney disease end-stage renal disease on hemodialysis, Wed//Wednesday Increased white blood count Anemia, normocytic Rule out right lower lobe pneumonia hyponatremia Elevated AST, ALT Acute urinary tract infection, with possible sepsis, present on admission, urine and blood cultures showing enterococcus faecalis Atrial fibrillation chronic history of coronary artery disease History of congestive heart failure Diabetes mellitus type 2 Gastroesophageal reflux disease Hypertension Hyperlipidemia Myocardial infarction history of degenerative joint disease History of bilateral lower extremity cellulitis, ulcers with Klebsiella, Pseudomonas History of diabetes, uncontrolled History of pleural effusion with right side thoracentesis History of paroxysmal atrial flutter Peripheral vascular disease History of benign prostatic hypertrophy History of coronary artery disease, CABG history of urinary retention History of coronary artery disease, stent Obesity with a body mass index of 31 Full code Recommendations and discussion: Recommend continue current medications, management, and symptomatic treatment. Patient is maintained on IV antibiotics in the form of vancomycin and will continue at this time. Infectious disease following. blood cultures showing enterococcus faecalis with urine culture finalized showing enterococcus faecalis, enterobacte amnigenus biogrp 2, and Omaira albicans. Repeat blood cultures preliminary showing group D enterococcus. Nephrology following as well and patient is currently receiving hemodialysis on his Wednesday// Wednesday schedule. Pulmonary and infectious disease also following. Patient is maintained on IV Lasix and will continue at this time. Will repeat a.m. labs along with repeat blood cultures to monitor for clearance of bacteremia. Due to multiple complex medical issues, prognosis is guarded. Case management and social work following as patient may need SNF placement once stabilized and discharged if IV antibiotic therapy is necessary. Further recommendations to follow.
--- NOTE | 2020-04-10 14:34 | P.PN ---
Subjective Progress Note Date: 04/10/20 CHIEF COMPLAINT: CHF HISTORY OF PRESENT ILLNESS: Patient examined this morning. He is sitting up in the chair. He denies shortness of breath or chest pain. He remains on IV lasix. Weight is down 5.5kg from yesterday. Fluid balance from last 24 hours is -1930. PHYSICAL EXAM: VITAL SIGNS: Reviewed. GENERAL: Well-developed in no acute distress. NECK: Supple. No JVD or thyromegaly LUNGS: Respirations even and unlabored. Lungs essentially clear to auscultation bilaterally. HEART: Irregular rate and rhythm. S1 and S2 heard. Systolic murmur. EXTREMITIES: Normal range of motion. No clubbing or cyanosis. Peripheral pulses intact. 2-3+ lower extremity edema ASSESSMENT: #1 generalized weakness and fatigue #2 marginal a low blood pressure #3 end stage renal disease on dialysis #4 coronary artery disease #5 mild cardiomyopathy was EF around 45% #6 long-standing persistent atrial fibrillation #7 aortic stenosis #8 multiple comorbid conditions PLAN: -Continue current medical regimen -Continue oral anticoagulation in the form of Eliquis -Daily weights and accurate I/O -Continue IV lasix dosing per nephrology Nurse practitioner note has been reviewed by physician. Signing provider agrees with the documented findings, assessment, and plan of care. Objective - Vital Signs Vital signs: Vital Signs Temp 97.7 F 04/10/20 08:00 Pulse 60 04/10/20 08:41 Resp 16 04/10/20 08:00 BP 118/77 04/10/20 08:00 Pulse Ox 96 04/10/20 08:00 Intake & Output 04/09/20 04/10/20 04/10/20 18:59 06:59 18:59 Intake Total 720 50 40 Output Total 2600 100 Balance -1880 -50 40 Weight 86 kg Intake: IV 40 sodium chloride @ KVO 40 Oral 720 50 Output: Urine 100 100 Uretheral (Torres) 100 Hemodialysis 2500 Other: Voiding Method Indwelling Catheter Indwelling Catheter Indwelling Catheter - Labs CBC & Chem 7: 04/10/20 07:52 04/10/20 07:52 Labs: Abnormal Lab Results - Last 24 Hours (Table) 04/09/20 04/09/20 04/09/20 Range/Units 11:46 17:02 20:54 WBC (3.8-10.6) k/uL RBC (4.30-5.90) m/uL Hgb (13.0-17.5) gm/dL Hct (39.0-53.0) % MCHC (31.0-37.0) g/dL RDW (11.5-15.5) % Neutrophils # (1.3-7.7) k/uL Lymphocytes # (1.0-4.8) k/uL Monocytes # (0-1.0) k/uL Sodium (137-145) mmol/L BUN (9-20) mg/dL Creatinine (0.66-1.25) mg/dL POC Glucose (mg/dL) 118 H 102 H 120 H (75-99) mg/dL Calcium (8.4-10.2) mg/dL 04/10/20 04/10/20 04/10/20 Range/Units 01:04 06:24 07:49 WBC (3.8-10.6) k/uL RBC (4.30-5.90) m/uL Hgb (13.0-17.5) gm/dL Hct (39.0-53.0) % MCHC (31.0-37.0) g/dL RDW (11.5-15.5) % Neutrophils # (1.3-7.7) k/uL Lymphocytes # (1.0-4.8) k/uL Monocytes # (0-1.0) k/uL Sodium (137-145) mmol/L BUN (9-20) mg/dL Creatinine (0.66-1.25) mg/dL POC Glucose (mg/dL) 71 L 105 H 102 H (75-99) mg/dL Calcium (8.4-10.2) mg/dL 04/10/20 04/10/20 Range/Units 07:52 07:52 WBC 16.3 H (3.8-10.6) k/uL RBC 3.82 L (4.30-5.90) m/uL Hgb 10.3 L (13.0-17.5) gm/dL Hct 34.4 L (39.0-53.0) % MCHC 30.0 L (31.0-37.0) g/dL RDW 17.2 H (11.5-15.5) % Neutrophils # 13.9 H (1.3-7.7) k/uL Lymphocytes # 0.4 L (1.0-4.8) k/uL Monocytes # 1.3 H (0-1.0) k/uL Sodium 133 L (137-145) mmol/L BUN 44 H (9-20) mg/dL Creatinine 3.76 H (0.66-1.25) mg/dL POC Glucose (mg/dL) (75-99) mg/dL Calcium 8.0 L (8.4-10.2) mg/dL Microbiology - Last 24 Hours (Table) 04/09/20 10:40 Blood Culture Gram Stain - Preliminary Blood Blood Culture - Preliminary Group D Enterococcus 04/09/20 05:48 Blood Culture - Preliminary Blood No Growth after 24 hours 04/07/20 13:41 Blood Culture Gram Stain - Final Blood Blood Culture - Final Enterococcus faecalis 04/09/20 10:40 Blood Culture - Final Blood 04/08/20 14:20 Blood Culture - Preliminary Blood No Growth after 24 hours 04/07/20 12:40 Urine Culture - Final Urine,Voided Enterococcus faecalis Enterobacte amnigenus biogrp 2 Omaira albicans
[2020-04-10] MEDS ORDERED: IOPAMIDOL CONTRAST (ORAL USE) VIAL PO PRN (14:47)
--- NOTE | 2020-04-10 15:02 | PN ---
PROGRESS NOTE Patient is seen for followup for end-stage renal disease. He is scheduled for hemodialysis tomorrow. Patient had about 2.5 L of fluid removed yesterday. He was started on midodrine and blood pressure was improved and we were able to get fluid off. The patient denies any significant complaints today. PHYSICAL EXAMINATION: Blood pressure was 118/77, heart rate 80 per minute, he is afebrile. Examination of the heart S1, S2. Examination of the lungs, bilateral breath sounds are heard. Abdomen is soft, nontender. Examination of the lower extremities shows edema 3+ bilaterally. LE[employer] exam grossly intact. LABS: Show sodium 133, potassium 4.8, chloride 98, BUN 44, creatinine 3.76, hemoglobin 10.3 g/dL. ASSESSMENT: 1. End-stage renal disease, on hemodialysis on a Wednesday, Wednesday, Wednesday schedule. 2. Volume overload, we will plan for an extra treatment today. Patient will be dialyzed again tomorrow. 3. CKD mineral bone disorder. 4. Hypotension, improved with midodrine. 5. Anemia of chronic disease. PLAN: 1. Repeat hemodialysis today. 2. Maintain patient on midodrine predialysis. 3. Sepsis with blood cultures growing Enterococcus faecalis. The patient's urine culture also grew the same organism. His catheter does not look infected. Patient remains on antibiotics. He is being followed by ID. KRISTAL / DONALD: [id number] /
--- NOTE | 2020-04-10 16:33 | PN ---
PROGRESS NOTE DATE OF SERVICE: 04/10/2020 REASON FOR FOLLOWUP: Enterococcus bacteremia; possible UTI. INTERVAL HISTORY: The patient is currently afebrile. The patient has been breathing comfortably. The patient denies having any chest pain or cough. No nausea, no vomiting, no abdominal pain or diarrhea. PHYSICAL EXAMINATION: Blood pressure is 118/77 with a pulse of 80, temperature 97.3. He is 96% on 2 L nasal cannula. General description is an elderly male lying in bed in no distress. RESPIRATORY SYSTEM: Unlabored breathing with decreased breath sounds at the base. No wheeze. HEART: S1, S2. Regular rate and rhythm. ABDOMEN: Soft. No tenderness. EXTREMITIES: Two plus lower extremity edema. LABS: Hemoglobin is 10.3, white count 15.3, BUN of 44, creatinine 3.76. Blood cultures are still coming back positive as well. DIAGNOSTIC IMPRESSION AND PLAN: Patient with concern for ; however, now with persistent bacteremia with concern for possible abdominal . We will repeat the blood culture PermAcatheter and follow his clinical course closely. MMODL / IJN: [id number] /
[2020-04-10 17:17] LABS: Glucose,Whole Blood 127 mg/dL (75-99)
[2020-04-10 20:12] LABS: Glucose,Whole Blood 121 mg/dL (75-99)
[2020-04-10] MEDS: MELATONIN 5 MG TABLET PO SCH (20:16)
[2020-04-11 07:14] LABS: Glucose,Whole Blood 76 mg/dL (75-99)
[2020-04-11] MEDS: INSULIN ASPART (NovoLOG) 100 UNIT/ML VIAL SQ SCH ×4 (07:39→20:24)
[2020-04-11] MEDS ORDERED: IOPAMIDOL CONTRAST (ORAL USE) VIAL PO PRN (08:26)
[2020-04-11 08:37] LABS: Anisocytosis Slight; Basophils # (A) 0.1 k/uL (0-0.2); Basophils % (A) 0 %; Eosinophils # (A) 0.2 k/uL (0-0.7); Eosinophils % (A) 2 %; HCT 38.2 % (39.0-53.0); HGB 11.2 gm/dL (13.0-17.5); Hypochromasia Marked; Lymphocytes # (A) 0.3 k/uL (1.0-4.8); Lymphocytes % (A) 2 %; MCHC 29.4 g/dL (31.0-37.0); MCV 91.9 fL (80.0-100.0); Mean Platelet Volume 7.5; Monocytes # (A) 0.9 k/uL (0-1.0); Monocytes % (A) 6 %; Neutrophils # (A) 13.4 k/uL (1.3-7.7); Neutrophils % (A) 88 %; Platelet Count 191 k/uL (150-450); RBC 4.16 m/uL (4.30-5.90); RDW 17.1 % (11.5-15.5); WBC 15.2 k/uL (3.8-10.6)
[2020-04-11 08:46] LABS: Calcium 8.4 mg/dL (8.4-10.2); Potassium 4.7 mmol/L (3.5-5.1)
[2020-04-11 08:51] LABS: Vancomycin,Random 6.8 ug/mL
[2020-04-11] MEDS: IPRATROPIUM-ALBUTEROL 3 ML NEB INHALATION SCH ×3 (09:04→19:54)
--- NOTE | 2020-04-11 09:40 | CT ---
EXAMINATION TYPE: CT ChestAbdPelvis wo/w con DATE OF EXAM: 04/11/2020 COMPARISON: Ultrasound kidneys 07/05/2019. CT Chest Abdomen Pelvis With 02/09/2019. HISTORY: bacteremia CT DLP: 3892.3 mGycm Automated exposure control for dose reduction was used. CONTRAST: CT scan of the chest, abdomen and pelvis is performed with Oral Contrast and without and with IV Cont rast, patient injected with 100 mL of Isovue 300. FINDINGS: There is beam hardening artifact of the upper abdomen due to patient's arms down by sides, somewhat l imiting evaluation of the upper abdomen. LUNGS: Large volume right pleural effusion. Moderate volume left pleural effusion. Adjacent airspace opacities and atelectasis of the bilateral lungs. There is a redemonstrated masslike opacity of the l eft lower lobe at the base, partially obscured by pleural effusion. No pneumothorax. Tracheobronchial tree is patent. MEDIASTINUM: Cardiomegaly with calcified coronary artery disease. No pericardial effusion. No thoraci c aortic aneurysm. Calcified atherosclerotic disease of the thoracic aorta. Redemonstrated calcified mediastinal and right hilar lymph nodes. Additional nonenlarged mediastinal nodes unchanged from 12/28. OTHER: No axillary lymphadenopathy. LIVER/GB: Calcified granulomas of the liver. Gallbladder unremarkable. No intrahepatic or extrahepati c ductal dilatation. PANCREAS: Normal. SPLEEN: Calcified granulomas. ADRENALS: Normal. KIDNEYS: No hydronephrosis or hydroureter bilaterally. Too small to characterize hypodense lesion of the left kidney. BOWEL: Small amount of oral contrast within the mid and distal esophagus. No evidence of bowel obstr uction or significant thickening. PELVIS: Urinary bladder nondistended with Torres catheter. PERITONEUM: There is small volume ascites. Mesenteric edema. No pneumoperitoneum. Fat-containing bila teral inguinal hernias. LYMPH NODES: No lymphadenopathy. VASCULAR: No abdominal aortic aneurysm. Marked aortobiiliac calcified disease. MUSCULOSKELETAL: No acute osseous abnormality. Scattered sclerotic foci unchanged. Degenerative edwards es of the spine. Diffuse anasarca. IMPRESSION: 1. Large right and moderate left pleural effusions. Adjacent airspace opacities and atelectasis the b ilateral lungs. 2. Masslike opacity of the left lower lobe redemonstrated from 12/29/2019 comparison. Findings may rep resent infectious or neoplastic etiology, with differential including round atelectasis. This area is partially obscured due to pleural effusion. 3. Small volume ascites. 4. Small amount of contrast within the esophagus may represent reflux versus delayed esophageal empty ing.
[2020-04-11] MEDS: CALCIUM ACETATE 667 MG TAB PO SCH ×3 (10:38→17:16)
[2020-04-11] MEDS: CALCIUM CARBONATE 500 MG CHEWABLE PO SCH ×2 (10:39→20:34)
[2020-04-11] MEDS: FERROUS SULFATE 325 MG TAB PO SCH (10:39)
[2020-04-11] MEDS: MIDODRINE 5 MG TAB PO SCH ×3 (10:39→17:15)
[2020-04-11] MEDS: ASCORBIC ACID 500 MG TAB PO SCH ×2 (10:39→17:16)
[2020-04-11] MEDS: FINASTERIDE 5 MG TAB PO SCH (10:39)
[2020-04-11] MEDS: METOPROLOL TARTRATE 25 MG TAB PO SCH ×2 (10:39→20:34)
[2020-04-11] MEDS: APIXABAN 2.5 MG TABLET PO SCH ×2 (10:39→20:35)
[2020-04-11] MEDS: PANTOPRAZOLE 40 MG TABLET PO SCH (10:39)
[2020-04-11] MEDS: INSULIN DETEMIR (LEVEMIR) 100 UNIT/ML SYR SQ SCH (10:40)
--- NOTE | 2020-04-11 10:51 | P.PN ---
Subjective This is a pleasant 80-year-old male past medical history significant for coronary artery disease status post bypass grafting, aortic stenosis, hypertension, dyslipidemia, chronic persistent atrial fibrillation, diabetes mellitus, chronic right pleural effusion s/p thoracentesis and chronic kidney disease on hemodialysis. He is seen and examined laying flat and very somnolent undergoing hemodialysis. He does follow commands but does not open his eyes or communicate. CT of the abd/pelvis obtained revealed large right and moderate le ft pleural effusions, masslike opacity of the left lower lobe and small volume ascites. Laboratory data reviewed, WBC 15.2, hemoglobin 11.2, platelets 191, sodium 134, potassium 4.7, creatinine 3.57. Blood pressure 113/69 heart rate 88 afebrile maintaining oxygen saturation on nasal cannula. Currently maintained on Eliquis 2.5 mg twice a day, Lasix 40 mg IV 3 times a day, Zaroxolyn 2.5 mg every other day, Lopressor 25 mg twice a day, midodrine 10 mg 3 times a day and rosuvastatin 10 mg daily. Urine output decreased for the previous 24 hour period. GENERAL: Well-appearing, well-nourished and in no acute distress. NECK: Supple without JVD or thyromegaly. LUNGS: Auscultated anteriorly due to ongoing dialysis and pt unable to turn or sit up. Diminished anteriorly, no wheezes. Bases not auscultated. HEART: Irregular rate and rhythm with soft systolic ejection murmur at the base, no rubs or gallops. S1 and S2 heard. Distant heart sounds. EXTREMITIES: Normal range of motion, 1+ edema with dusky/pale appearance to lower extremities bilaterally. No clubbing or cyanosis. Peripheral pulses intact. 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 Diuretic therapy per nephrology. Consider ultrasound of the lungs for fluid measurement. Ongoing medical management. Nurse Practitioner note has been reviewed, I agree with a documented findings and plan of care. Patient was seen and examined. Objective - Vital Signs Vital signs: Vital Signs Temp 99.3 F 04/11/20 08:09 Pulse 76 04/11/20 08:59 Resp 19 04/11/20 08:09 BP 113/69 04/11/20 08:09 Pulse Ox 96 04/11/20 08:09 Intake & Output 04/10/20 04/11/20 04/11/20 18:59 06:59 18:59 Intake Total 40 560 Output Total 100 100 Balance 40 460 -100 Intake: IV 40 sodium chloride @ KVO 40 Oral 560 Output: Urine 100 100 Other: Voiding Method Indwelling Catheter Indwelling Catheter Indwelling Catheter # Voids 0 0 - Labs CBC & Chem 7: 04/11/20 08:14 04/11/20 08:14 Labs: Abnormal Lab Results - Last 24 Hours (Table) 04/10/20 04/10/20 04/10/20 Range/Units 12:23 17:12 20:11 WBC (3.8-10.6) k/uL RBC (4.30-5.90) m/uL Hgb (13.0-17.5) gm/dL Hct (39.0-53.0) % MCHC (31.0-37.0) g/dL RDW (11.5-15.5) % Neutrophils # (1.3-7.7) k/uL Lymphocytes # (1.0-4.8) k/uL Sodium (137-145) mmol/L BUN (9-20) mg/dL Creatinine (0.66-1.25) mg/dL POC Glucose (mg/dL) 148 H 127 H 121 H (75-99) mg/dL 04/11/20 04/11/20 Range/Units 08:14 08:14 WBC 15.2 H (3.8-10.6) k/uL RBC 4.16 L (4.30-5.90) m/uL Hgb 11.2 L (13.0-17.5) gm/dL Hct 38.2 L (39.0-53.0) % MCHC 29.4 L (31.0-37.0) g/dL RDW 17.1 H (11.5-15.5) % Neutrophils # 13.4 H (1.3-7.7) k/uL Lymphocytes # 0.3 L (1.0-4.8) k/uL Sodium 134 L (137-145) mmol/L BUN 42 H (9-20) mg/dL Creatinine 3.57 H (0.66-1.25) mg/dL POC Glucose (mg/dL) (75-99) mg/dL Microbiology - Last 24 Hours (Table) 04/07/20 13:41 Blood Culture Gram Stain - Final Blood Blood Culture - Final Enterococcus faecalis 04/09/20 05:48 Blood Culture - Preliminary Blood No Growth after 48 hours 04/08/20 14:20 Blood Culture - Preliminary Blood No Growth after 48 hours 04/09/20 10:40 Blood Culture Gram Stain - Preliminary Blood Blood Culture - Preliminary Group D Enterococcus
[2020-04-11 11:33] LABS: Glucose,Whole Blood 117 mg/dL (75-99)
[2020-04-11] MEDS: AMPICILLIN-SULBACTAM 3 GM in SODIUM CHLORIDE 0.9% 100 ML IVPB SCH (11:33)
[2020-04-11] MEDS: FUROSEMIDE 10 MG/ML 4 ML VIAL IV SCH ×3 (11:41→23:17)
[2020-04-11] MEDS: NON FORMULARY DRUG (Rosuvastatin 10 MG) PO SCH (11:43)
--- NOTE | 2020-04-11 12:20 | P.PN ---
Subjective Progress Note Date: 04/11/20 Principal diagnosis: Hypotension, acute urinary tract infection with sepsis 80-year-old male patient got transferred from dialysis center as the patient's blood pressure was running low and he was unable to tolerate the the treatment. Dialysis was cut short by around 2 hours according to him. He is known to me. He is known to have extensive comorbidities including coronary artery disease, previous bypass surgery, CHF with ejection fraction 45%, mild aortic stenosis, hypertension and hyperlipidemia and the patient has chronic kidney disease and has been started on hemodialysis few months back via a temporary dialysis catheter in his right IJ. He also has history of diabetes mellitus, paroxysmal atrial flutter/fibrillation, peripheral vascular disease, BPH, and a chronic right-sided pleural effusion that was drained in the past where a total of 900 mL of fluid was aspirated from the right lung and the fluid boot turner to be a transudate consistent with CHF. In any rate, the patient does have a Torres catheter. The urine output is quite and there is a suspicion for now underlying urine checked infection as the patient has more than 182 white cells and his urine analysis. Cultures still pending for now. The chest x-ray findings are essentially stable. The patient is stable cardiomegaly and stable loculated right-sided pleural effusion without evidence of any pneumothorax. No reported cough. No reported sputum production. The patient is covered empirically with IV Zosyn for now. He is afebrile. Most recent blood pressure is 97 with 54 with a room air pulse ox of 97%. His breathing is nonlabored. On 04/09/2020 patient seen on the selective care unit, his having a dialysis treatment right now, he states his breathing is comfortable, does not appear to be in any acute distress. On 2 L of oxygen and pulse ox 96%, he is afebrile, hemodynamically he is stable. Urine culture came back positive for group D enterococcus, Enterobacter amnigenus biogroup, and group D enterococcus bacteremia, and currently patient is on vancomycin per ID service recommendations, initially was covered with Zosyn. Patient continues on IV Lasix at 40 mg every 8 hours. Lung sounds are clear diminished at the bases, no significant rhonchi or wheezing, no cough or congestion. No couplets or chest pain. On 2019 patient seen in follow-up [facility]. He is having hemodialysis treatment right now, is in mild amount of discomfort from groin pain, bilateral groin sites are clean dry and intact, no evidence of any hematomas, no swelling and no suspicious lymphadenopathy noted on palpation, bilateral groins are tender with palpation, patient is getting some pain medication, Torres catheter is in place, however patient states that his pain was present a week before hospitalization placement of catheter. Patient is on antibiotics for Enterococcus faecalis, Enterobacter amnigenus urinary tract infection, his blood culture is positive for group D enterococcus, ID service is following and patient is currently on Unasyn, commands and has been discontinued, no worsened shortness of breath, lung sounds are clear, no hematemesis treatment yesterday, with removal of 2.5 L with dialysis, today he had 2.2 L removed with dialysis, patient's chest CT, abdomen and pelvis was reviewed. Chest CT shows large volume right pleural effusion, moderate volume left pleural effusion with adjacent airspace opacities and atelectasis of the bilateral lungs, no pneumothorax. And nonspecific masslike opacity of the left lower lobe previously seen on December CT chest. Could be related to infectious or neoplastic etiology with the possibility of round atelectasis. Small volume ascites, and small amount of contrast within the esophagus possibly related to delayed esophageal emptying Objective - Vital Signs Vital signs: Vital Signs Temp 98.0 F 04/11/20 11:57 Pulse 84 04/11/20 11:57 Resp 20 04/11/20 11:57 BP 94/56 04/11/20 11:57 Pulse Ox 96 04/11/20 08:09 Intake & Output 04/10/20 04/11/20 04/11/20 18:59 06:59 18:59 Intake Total 40 560 Output Total 100 2300 Balance 40 460 -2300 Intake: IV 40 sodium chloride @ KVO 40 Oral 560 Output: Urine 100 100 Hemodialysis 2200 Other: Voiding Method Indwelling Catheter Indwelling Catheter Indwelling Catheter # Voids 0 0 - Exam GENERAL EXAM: Alert, very pleasant, 72-year-old white male, on 2 L of oxygen the pulse ox of 96%, resting comfortably in bed, currently getting hemodialysis comfortable in no apparent distress. HEAD: Normocephalic/atraumatic. EYES: Normal reaction of pupils, equal size. Conjunctiva pink, sclera white. NOSE: Clear with pink turbinates. THROAT: No erythema or exudates. NECK: No masses, no JVD, no thyroid enlargement, no adenopathy. Right IJ dialysis catheter CHEST: No chest wall deformity. Symmetrical expansion. LUNGS: Equal air entry with no crackles, wheeze, rhonchi or dullness. CVS: Regular rate and rhythm, normal S1 and S2, no gallops, no murmurs, no rubs ABDOMEN: Soft, nontender. No hepatosplenomegaly, normal bowel sounds, no guarding or rigidity. EXTREMITIES: No clubbing, mild pretibial edema, no cyanosis, 2+ pulses and upper and lower extremities. MUSCULOSKELETAL: Muscle strength and tone normal. SPINE: No scoliosis or deformity SKIN: No rashes CENTRAL NERVOUS SYSTEM: Alert and oriented -3. No focal deficits, tone is normal in all 4 extremities. PSYCHIATRIC: Alert and oriented -3. Appropriate affect. Intact judgment and insight. - Labs CBC & Chem 7: 04/11/20 08:14 04/11/20 08:14 Labs: Abnormal Lab Results - Last 24 Hours (Table) 04/10/20 04/10/20 04/10/20 Range/Units 12:23 17:12 20:11 WBC (3.8-10.6) k/uL RBC (4.30-5.90) m/uL Hgb (13.0-17.5) gm/dL Hct (39.0-53.0) % MCHC (31.0-37.0) g/dL RDW (11.5-15.5) % Neutrophils # (1.3-7.7) k/uL Lymphocytes # (1.0-4.8) k/uL Sodium (137-145) mmol/L BUN (9-20) mg/dL Creatinine (0.66-1.25) mg/dL POC Glucose (mg/dL) 148 H 127 H 121 H (75-99) mg/dL 04/11/20 04/11/20 04/11/20 Range/Units 08:14 08:14 11:31 WBC 15.2 H (3.8-10.6) k/uL RBC 4.16 L (4.30-5.90) m/uL Hgb 11.2 L (13.0-17.5) gm/dL Hct 38.2 L (39.0-53.0) % MCHC 29.4 L (31.0-37.0) g/dL RDW 17.1 H (11.5-15.5) % Neutrophils # 13.4 H (1.3-7.7) k/uL Lymphocytes # 0.3 L (1.0-4.8) k/uL Sodium 134 L (137-145) mmol/L BUN 42 H (9-20) mg/dL Creatinine 3.57 H (0.66-1.25) mg/dL POC Glucose (mg/dL) 117 H (75-99) mg/dL Microbiology - Last 24 Hours (Table) 04/07/20 13:41 Blood Culture Gram Stain - Final Blood Blood Culture - Final Enterococcus faecalis 04/09/20 05:48 Blood Culture - Preliminary Blood No Growth after 48 hours 04/08/20 14:20 Blood Culture - Preliminary Blood No Growth after 48 hours 04/09/20 10:40 Blood Culture Gram Stain - Preliminary Blood Blood Culture - Preliminary Group D Enterococcus Assessment and Plan Plan: Assessment: 1 hypotension currently under investigation related to enterococcus bacteremia related to urinary tract infection with urine cultures positive for enterococcus group D organism, was initially covered with Zosyn, currently on vancomycin final urine culture and blood culture pending 2 End stage renal disease currently on hemodialysis. The patient has done dialysis for the past 2 month 3 small bilateral pleural effusions, and the patient has had a loculated right- sided pleural effusion and a previous drainage of the right lung yielded into a non-cc of pleural fluid that was a transudate. 4 CHF with ejection fraction 45% and mild aortic stenosis and moderate mitral regurgitation. Echocardiac Richard is to be repeated. The patient has mild systolic heart failure 5 chronic atrial fibrillation maintained on Eliquis on outpatient basis 6 diabetes mellitus 7 hypertension 8 hyperlipidemia 9 coronary artery disease with previous bypass surgery that was performed in December 2018 10 history of iron deficiency anemia with a positive occult blood in the stool 11 anemia of chronic disease 12 generalized weakness and fatigue with a marginally low blood pressure Plan: Continue current medical treatment, but as per ID service recommendations, awaiting final results of the blood culture, CT chest results have been reviewed, showing large right and moderate left pleural effusions with adjacent atelectasis. Continue with dialysis, and IV diuretics, breathing is stable, nonlabored, patient is maintaining stable to saturations on 2 L of oxygen. Patient had another hemodialysis session today, and 2.2 L of fluid was removed, patient is tolerating dialysis well, no episodes of hypotension, no tachycardia. We'll continue to follow discharge planning is in progress for discharge to [facility] possibly today or tomorrow I performed a history & physical examination of the patient and discussed their management with my nurse practitioner, Demetria Ramos. I reviewed the nurse practitioner's note and agree with the documented findings and plan of care. Lung sounds are positive for diminished breath sounds. The findings and the impression was discussed with the patient. I attest to the documentation by the nurse practitioner. Time with Patient: Less than 30
--- NOTE | 2020-04-11 12:47 | PN ---
PROGRESS NOTE Patient is seen for followup for end-stage renal disease. He is currently seen on hemodialysis. The patient is complaining of abdominal discomfort and pain with his Torres catheter. He tolerated his treatment well yesterday, we had about 2.5 L of fluid removed, We are planning for about 2-3 L again today. PHYSICAL EXAMINATION: On examination, blood pressure was 113/69, heart rate is 80 per minute, he is afebrile. Examination shows distended abdomen with tenderness in the lower abdomen, breath sounds are heard bilaterally. Heart sounds are heard. Examination of the lower extremities shows edema 3+ bilaterally. [employer] exam shows patient moving all 4 extremities. LABS: Show sodium of 134, potassium 4.7, BUN 42, creatinine 3.57, hemoglobin 11.2 g/dL. ASSESSMENT: 1. End-stage renal disease, on hemodialysis on a Wednesday, , Wednesday schedule as outpatient. 2. Volume overload, slowly improving. 3. Hypotension maintained on midodrine. 4. Etiology for the hypotension is sepsis. 5. Bacteremia with blood cultures growing Enterococcus faecalis and group D Enterococcus with urine culture also growing Enterococcus faecalis being followed by ID. 6. Urinary tract infection with indwelling Torres catheter. PLAN: 1. Repeat hemodialysis in a.m., mostly for ultrafiltration. 2. Continue with antibiotics as per ID. 3. Encourage increased oral intake. 4. Check bladder scan to rule out urine retention and adjust Torres catheter. MMEARLL / CHAYON: [id number] /
[2020-04-11 14:21] VITALS: BMI 30.6
--- NOTE | 2020-04-11 14:27 | P.PN ---
Subjective Progress Note Date: 04/11/20 Principal diagnosis: This is a 80-year-old male who was recently admitted with congestive heart failure acute exacerbation and is being closely monitored. Patient is maintained on hemodialysis on Wednesday//Wednesday and nephrology was consulted. Patient to receive hemodialysis tomorrow. Cardiology also following. Patient continues to have some shortness of breath and weakness. Patient's blood culture preliminary showing group D enterococcus in urine culture preliminary showing group D enterococcus with gram-negative bacilli. Patient is currently maintained on Unasyn and will continue at this time given kidney functions. Infectious disease was consulted and pending at this time. Orthostatic vital signs obtained. Patient is continued on IV Lasix at 40 mg ev doris 8 hours and will continue at this time. Patient to continue with DuoNeb treatments. Review of systems: Constitutional: Reports fatigue, no reports of fevers or chills Cardiovascular: No reports of chest pain or palpitation Respiratory: Reports some shortness of breath, no reports of cough GI: No reports of nausea, vomiting, or diarrhea : No reports of dysuria or retention Neurovascular: Reports weakness, no reports of numbness 04/09/2020 Patient is seen and evaluated and follow-up continues to be dyspneic and is currently maintained on 2 L of oxygen via nasal cannula. Patient is currently receiving hemodialysis and nephrology following closely. Infectious disease also following as patient's blood cultures preliminary were showing group D enterococcus in urine culture showing group D enterococcus, Enterobacte amnigenus biogrp 2, and Omaira albicans. Patient is being transitioned to vancomycin and Zosyn has been discontinued. Patient denies any chest pain or palpitations. Patient has been afebrile. Reports of nausea or vomiting patient is tolerating diet. Patient is currently maintained on sliding scale along with long-acting and will continue to monitor closely as patient had an episode of hypoglycemia this morning with a blood sugar of 49. Patient will continue with before meals at bedtime and treat accordingly. Pulmonary and cardiology also following closely. 04/10/2020 Patient is seen in follow-up today status post hemodialysis yesterday states his breathing has improved. Patient is being closely monitored. Multiple medical consultations following including pulmonary, nephrology, and infectious disease. Repeat Blood cultures preliminary showing group D enterococcus and previous cultures finalized showing enterococcus faecalis along with multiple other organisms. Patient is continued on IV antibiotic therapy in the form of vancomycin and will continue at this time. Will continue with blood cultures while waiting for clearance of bacteremia. Patient is maintained on dialysis Wednesday//Wednesday and will receive hemodialysis in the morning. Case management and social work following as patient currently resides at an [facility] home in may possibly need SNF placement is continued IV antibiotic therapy is necessary. Will continue to monitor closely. Review of systems: Constitutional: No reports of fevers or chills, reports some fatigue Cardiovascular: No reports of chest pain or palpitations Respiratory: Reports mild shortness of breath, no reports of cough GI: No reports of nausea, vomiting, or diarrhea : No reports of dysuria or retention Neurovascular: No reports of weakness or numbness 04/11/2020 Patient is seen and evaluated and follow-up currently receiving hemodialysis. Patient underwent CT of the chest abdomen pelvis showing large right and moderate left pleural effusions with airspace opacity And atelectasis in bilateral lung vaughan, a re-demonstrated masslike opacity in the left lower lobe as shown on previous CAT scan, findings may represent infectious or neoplastic etiology, small volume ascites, small amount Of contrastNoted in the esophagus That may represent reflux versus delayed esophageal emptying. Patient has no reports of increasing shortness of breath. Patient is currently maintained on 2 L of oxygen via nasal cannula. Patient is maintained on hemodialysis Wednesday//Wednesday. Multiple medical consultations including Pulmonary, Cardiology, nephrology, and infectious disease. Blood cultures That were repeated on 04/09/2020 finalized showing enterococcus faecalis Patient is ma intained on Unasyn and will continue at this time. Case management and social work following as patient currently resides at an [facility] home and working on arrangements for possible IV antibiotic therapy in the outpatient setting. Patient also underwent a 2-D echo which is currently pending at this time. Will continue to monitor closely. Objective - Vital Signs Vital signs: Vital Signs Temp 99.3 F 04/11/20 08:09 Pulse 76 04/11/20 08:59 Resp 19 04/11/20 08:09 BP 113/69 04/11/20 08:09 Pulse Ox 96 04/11/20 08:09 Intake & Output 04/10/20 04/11/20 04/11/20 18:59 06:59 18:59 Intake Total 40 560 Output Total 100 100 Balance 40 460 -100 Intake: IV 40 sodium chloride @ KVO 40 Oral 560 Output: Urine 100 100 Other: Voiding Method Indwelling Catheter Indwelling Catheter Indwelling Catheter # Voids 0 0 - Exam Gen: This is a 80-year-old male lying in bed, awake, alert and oriented 3, well-developed, well-nourished. Temp is 98.0F, pulse is 84, respirations are 20, blood pressure is 94/56, oxygen saturation is 96% on 2 L via nasal cannula. HEENT: Head is atraumatic, normocephalic. Pupils equal, round. Sclerae is anicteric. NECK: Supple. No JVD. No lymphadenopathy. No thyromegaly. LUNGS: Breath sounds diminished at the bases with a few scattered rhonchi noted. No intercostal retractions. HEART: Regular rate and rhythm. No murmur. ABDOMEN: Soft. Obese. Bowel sounds are present. No masses. No tenderness. EXTREMITIES: No pedal edema. No calf tenderness. Bilateral lower extremity edema NEUROLOGICAL: Patient is awake, alert and oriented x3. Diffusely weak - Labs CBC & Chem 7: 04/11/20 08:14 04/11/20 08:14 Labs: Abnormal Lab Results - Last 24 Hours (Table) 04/10/20 04/10/20 04/10/20 Range/Units 12:23 17:12 20:11 WBC (3.8-10.6) k/uL RBC (4.30-5.90) m/uL Hgb (13.0-17.5) gm/dL Hct (39.0-53.0) % MCHC (31.0-37.0) g/dL RDW (11.5-15.5) % Neutrophils # (1.3-7.7) k/uL Lymphocytes # (1.0-4.8) k/uL Sodium (137-145) mmol/L BUN (9-20) mg/dL Creatinine (0.66-1.25) mg/dL POC Glucose (mg/dL) 148 H 127 H 121 H (75-99) mg/dL 04/11/20 04/11/20 Range/Units 08:14 08:14 WBC 15.2 H (3.8-10.6) k/uL RBC 4.16 L (4.30-5.90) m/uL Hgb 11.2 L (13.0-17.5) gm/dL Hct 38.2 L (39.0-53.0) % MCHC 29.4 L (31.0-37.0) g/dL RDW 17.1 H (11.5-15.5) % Neutrophils # 13.4 H (1.3-7.7) k/uL Lymphocytes # 0.3 L (1.0-4.8) k/uL Sodium 134 L (137-145) mmol/L BUN 42 H (9-20) mg/dL Creatinine 3.57 H (0.66-1.25) mg/dL POC Glucose (mg/dL) (75-99) mg/dL Microbiology - Last 24 Hours (Table) 04/07/20 13:41 Blood Culture Gram Stain - Final Blood Blood Culture - Final Enterococcus faecalis 04/09/20 05:48 Blood Culture - Preliminary Blood No Growth after 48 hours 04/08/20 14:20 Blood Culture - Preliminary Blood No Growth after 48 hours 04/09/20 10:40 Blood Culture Gram Stain - Preliminary Blood Blood Culture - Preliminary Group D Enterococcus Assessment and Plan Assessment: Shortness of breath possibly multifactorial with congestive heart failure, acute exacerbation with acute on chronic systolic dysfunction, ejection fraction 45% with moderate mitral regurgitation, aortic stenosis Large right and moderate left pleural effusion Sepsis due to Group D enterococcus bacteremia, present on admission Chronic kidney disease end-stage renal disease on hemodialysis, Wednesday/ /Wednesday Increased white blood count Anemia, normocytic Rule out right lower lobe pneumonia hyponatremia Elevated AST, ALT Acute urinary tract infection, with possible sepsis, present on admission, urine and blood cultures showing enterococcus faecalis Atrial fibrillation chronic history of coronary artery disease History of congestive heart failure Diabetes mellitus type 2 Gastroesophageal reflux disease Hypertension Hyperlipidemia Myocardial infarction history of degenerative joint disease History of bilateral lower extremity cellulitis, ulcers with Klebsiella, Pseudomonas History of diabetes, uncontrolled History of pleural effusion with right side thoracentesis History of paroxysmal atrial flutter Peripheral vascular disease History of benign prostatic hypertrophy History of coronary artery disease, CABG history of urinary retention History of coronary artery disease, stent Obesity with a body mass index of 31 Full code Recommendations and discussion: Recommend continue current medications, management, and symptomatic treatment. Patient is maintained on IV antibiotics in the form of Unasyn and will continue at this time. Vancomycin has been discontinued. Infectious disease following. blood cultures showing enterococcus faecalis with urine culture finalized showin g enterococcus faecalis, enterobacte amnigenus biogrp 2, and Omaira albicans. Repeat blood cultures showing enterococcus faecalis. Nephrology following as well and patient is currently receiving hemodialysis on his Wednesday// Wednesday schedule. Pulmonary and infectious disease also following. Patient is maintained on IV Lasix and will continue at this time. Will repeat a.m. labs along with repeat blood cultures to monitor for clearance of bacteremia. Due to multiple complex medical issues, prognosis is guarded. Case management and social work following as patient may need SNF placement once stabilized and discharged if IV antibiotic therapy is necessary. Current [facility] home working on possibility of accommodating IV antibiotic therapy with the infusion center. Further recommendations to follow.
--- NOTE | 2020-04-11 15:11 | XR ---
EXAMINATION TYPE: XR chest 1V portable DATE OF EXAM: 04/11/2020 CLINICAL HISTORY: Difficulty breathing pleural effusion progress study. TECHNIQUE: Single AP portable upright view of the chest is obtained. COMPARISON: Chest x-ray from [address] from earlier today. FINDINGS: Overlying sternal wires along with mediastinal clips and atrial appendage clip are all red emonstrated. Persistent cardiomegaly. Persistent large bore right internal jugular dialysis catheter. Persistent moderate central vascular congestion and small to moderate sized right pleural fluid ritesh ection along with small to tiny left pleural effusion or fluid collection. Osseous structures are dem ineralized. IMPRESSION: Overall stable findings, cardiomegaly with moderate central vascular congestion and inter stitial edema along with small to moderate-sized right and small to tiny left pleural fluid collectio ns. There is associated right greater than left bibasilar atelectasis and/or infiltrates.
[2020-04-11 16:35] LABS: Glucose,Whole Blood 143 mg/dL (75-99)
--- NOTE | 2020-04-11 20:00 | ECHOF ---
Referral Reason:Heart failure, ESRD, bacteremia MEASUREMENTS -------- HEIGHT: 167.6 cm WEIGHT: 85.7 kg BP: 118/77 IVSd: 1.3 cm (0.6 - 1.1) LVIDd: 4.6 cm (3.9 - 5.3) LVPWd: 1.3 cm (0.6 - 1.1) IVSs: 1.3 cm LVIDs: 4.0 cm LVPWs: 1.6 cm LA Diam: 4.0 cm (2.7 - 3.8) RVIDd: 3.2 cm (< 3.3) LAESV Index (A-L): 28.92 ml/m Ao Diam: 3.3 cm (2.0 - 3.7) AV Cusp: 0.6 cm (1.5 - 2.6) EPSS: 1.2 cm MV E Nik: 1.34 m/s MV DecT: 128 ms MV A Nik: 0.37 m/s MV E/A Ratio: 3.61 AV maxP.97 mmHg AV meanP.07 mmHg RAP: 15.00 mmHg RVSP: 64.59 mmHg MV EF SLOPE: 80.85 mm/s (70 - 150) MV EXCURSION: 17.25 mm (> 18.000) FINDINGS -------- This was a technically adequate study. The left ventricular size is normal. There is mild concentric left ventricular hypertrophy. Overa ll left ventricular systolic function is mild-moderately impaired with, an EF between 40 - 45 %. iNFE RIOR WALL HYPOKINESIS, INFEROSEPTAL HYPO The right ventricle is normal in size. LA is midly dilated 29-33ml/m2. The right atrium is normal in size. Interatrial and interventricular septum intact. There is mild to moderate aortic valve sclerosis. There is mild to moderate aortic stenosis present . Peak/mean gradient across the Aortic Valve is 17.97mmHg / 11.07mmHg. The mitral valve leaflets are mildly thickened. Mild mitral annular calcification present. Mild m itral regurgitation is present. Moderate tricuspid regurgitation present. There is severe pulmonary hypertension. The right ventr icular systolic pressure, as measured by Doppler, is 64.59mmHg. There is no pulmonic regurgitation present. The aortic root size is normal. The inferior vena cava is dilated with no significant inspiratory collapse which is consistent estima regi right atrial pressure of >15 mmHg. There is no pericardial effusion. CONCLUSIONS -------- 1. The left ventricular size is normal. 2. There is mild concentric left ventricular hypertrophy. 3. LA is midly dilated 29-33ml/m2. 4. There is mild to moderate aortic valve sclerosis. 5. Peak/mean gradient across the Aortic Valve is 17.97mmHg / 11.07mmHg. 6. The mitral valve leaflets are mildly thickened. 7. Mild mitral annular calcification present. 8. Mild mitral regurgitation is present. 9. Moderate tricuspid regurgitation present. 10. There is severe pulmonary hypertension. 11. The right ventricular systolic pressure, as measured by Doppler, is 64.59mmHg. 12. There is no pulmonic regurgitation present. 13. The inferior vena cava is dilated with no significant inspiratory collapse which is consistent es timated right atrial pressure of >15 mmHg. 14. There is no pericardial effusion. [employer]IC LIFT DRIVER: Glenna Rojas RDCS
[2020-04-11 20:21] LABS: Glucose,Whole Blood 88 mg/dL (75-99)
[2020-04-11] MEDS: MELATONIN 5 MG TABLET PO SCH (20:35)
[2020-04-11 22:38] LABS: Glucose,Whole Blood 58 mg/dL (75-99)
--- NOTE | 2020-04-11 22:41 | PN ---
PROGRESS NOTE DATE OF SERVICE: 04/11/2020 REASON FOR FOLLOWUP: Enterococcus faecalis bacteremia and UTI. INTERVAL HISTORY: The patient is currently afebrile, has been breathing comfortably. The patient denies having any chest pain or shortness of breath or cough. No nausea or vomiting. No abdominal pain or diarrhea. PHYSICAL EXAMINATION: Blood pressure 108/66 with a pulse of 80, temperature of 98. He is 96% on 2 L nasal cannula. General description is an elderly male lying in bed in no distress. RESPIRATORY SYSTEM: Unlabored breathing. Clear to auscultation anteriorly. HEART: S1, S2. Regular rate and rhythm. ABDOMEN: Soft. No tenderness. LABS: White count down to 15.2. BUN of 42, creatinine 3.57. DIAGNOSTIC IMPRESSION AND PLAN: Patient with Enterococcus faecalis bacteremia. Blood culture from yesterday so far negative. With concern for UTI and involvement of the Permacath, culture to be repeated from the catheter, preferably today. Will keep the patient on Unasyn and follow up on repeat cultures. Also obtain an echocardiogram to make sure there is no evidence of any valvular abnormality or vegetation. Continue with supportive care. MMODL / IJN: [id number] /
[2020-04-11 22:53] LABS: Glucose,Whole Blood 62 mg/dL (75-99)
[2020-04-11 23:06] LABS: Glucose,Whole Blood 66 mg/dL (75-99)
[2020-04-11 23:23] LABS: Glucose,Whole Blood 89 mg/dL (75-99)
[2020-04-12 06:51] LABS: Anisocytosis Slight; Basophils % (A) 0 %; Eosinophils # (A) 0.2 k/uL (0-0.7); Eosinophils % (A) 2 %; HGB 10.6 gm/dL (13.0-17.5); Hypochromasia Marked; Lymphocytes # (A) 0.4 k/uL (1.0-4.8); Lymphocytes % (A) 3 %; MCH 26.4 pg (25.0-35.0); MCHC 29.4 g/dL (31.0-37.0); MCV 89.9 fL (80.0-100.0); Mean Platelet Volume 7.5; Monocytes % (A) 7 %; Neutrophils # (A) 11.5 k/uL (1.3-7.7); Neutrophils % (A) 86 %; Platelet Count 211 k/uL (150-450); RDW 17.2 % (11.5-15.5); WBC 13.4 k/uL (3.8-10.6)
[2020-04-12 06:57] LABS: Glucose,Whole Blood 57 mg/dL (75-99)
[2020-04-12] MEDS: INSULIN ASPART (NovoLOG) 100 UNIT/ML VIAL SQ SCH ×4 (07:00→20:15)
[2020-04-12 07:05] LABS: Potassium 4.4 mmol/L (3.5-5.1)
[2020-04-12] MEDS: CALCIUM ACETATE 667 MG TAB PO SCH ×3 (07:08→17:17)
[2020-04-12] MEDS: PANTOPRAZOLE 40 MG TABLET PO SCH (07:08)
[2020-04-12] MEDS: ASCORBIC ACID 500 MG TAB PO SCH ×2 (07:08→17:18)
[2020-04-12] MEDS: MIDODRINE 5 MG TAB PO SCH ×3 (07:08→17:24)
--- NOTE | 2020-04-12 07:08 | XR ---
EXAMINATION TYPE: XR chest 1V portable DATE OF EXAM: 04/12/2020 COMPARISON: 04/11/2020 HISTORY: Shortness of breath TECHNIQUE: Single frontal view of the chest is obtained. FINDINGS: Diffuse bilateral airspace disease with bilateral pleural effusions are stable. Heart is e nlarged and there is postsurgical changes. Dialysis catheter stable. No sizable pneumothorax. Arthrop athy of the shoulders and hypertrophic and degenerative change of the spine. IMPRESSION: 1. Diffuse bilateral airspace disease with bilateral pleural effusions correlate for CHF with pulmona ry edema otherwise consider diffuse pneumonia.
[2020-04-12 07:43] LABS: Glucose,Whole Blood 74 mg/dL (75-99)
[2020-04-12 08:20] LABS: Glucose,Whole Blood 133 mg/dL (75-99)
[2020-04-12] MEDS: FERROUS SULFATE 325 MG TAB PO SCH (09:00)
[2020-04-12] MEDS: APIXABAN 2.5 MG TABLET PO SCH ×2 (09:00→20:15)
[2020-04-12] MEDS: FINASTERIDE 5 MG TAB PO SCH (09:00)
[2020-04-12] MEDS: CALCIUM CARBONATE 500 MG CHEWABLE PO SCH ×2 (09:01→20:15)
[2020-04-12] MEDS: INSULIN DETEMIR (LEVEMIR) 100 UNIT/ML SYR SQ SCH (09:09)
[2020-04-12] MEDS: IPRATROPIUM-ALBUTEROL 3 ML NEB INHALATION SCH ×3 (09:11→20:20)
[2020-04-12] MEDS: ERGOCALCIFEROL 50,000 UNIT CAP PO SCH (09:12)
[2020-04-12] MEDS: metOLazone 2.5 MG TAB PO SCH (09:12)
[2020-04-12] MEDS: METOPROLOL TARTRATE 25 MG TAB PO SCH ×2 (09:12→20:15)
[2020-04-12] MEDS: NON FORMULARY DRUG (Rosuvastatin 10 MG) PO SCH (09:14)
[2020-04-12] MEDS: HYDROcodone/APAP 5-325MG 1 EACH TAB PO PRN (10:46)
[2020-04-12 11:37] LABS: Glucose,Whole Blood 161 mg/dL (75-99)
--- NOTE | 2020-04-12 11:39 | PN ---
PROGRESS NOTE Patient is seen for followup for end-stage renal disease. He is maintained on daily dialysis mainly for ultrafiltration. Patient tolerated his treatment fairly well yesterday. We were able to get about 2.2 L. PHYSICAL EXAMINATION: Today, patient is comfortable. Blood pressure is 113/68, heart rate 71 per minute, he is afebrile. Examination of the heart S1, S2. Examination of the lungs, bilateral breath sounds are heard. Abdomen is soft, nontender. Examination of the lower extremities shows edema, 3+ bilaterally. COAL SAMPLER exam grossly intact. LABS: Show sodium 133, potassium 4.4, BUN 35, creatinine 3.3, hemoglobin 10.6 g/dL. ASSESSMENT: 1. End-stage renal disease, maintained on hemodialysis on a Wednesday, , Wednesday schedule, currently getting daily dialysis mainly for volume overload. We will plan for ultrafiltration of about 2 L today and then patient will have his regular dialysis again tomorrow. 2. Sepsis with blood cultures growing Enterococcus faecalis with repeat blood cultures currently negative. Source is most likely UTIs as patient's urine culture also grew Enterococcus faecalis. 3. Urinary tract infection. Urine culture grew Enterococcus faecalis enterobacteria and Omaira albicans being followed by Infectious Disease, maintained on Unasyn currently. 4. CKD mineral bone disorder. 5. Volume overload, maintained on daily ultrafiltration. PLAN: Repeat UF of about 2 L today. Continue with IV Lasix and patient will have his regular hemodialysis treatment tomorrow. Antibiotics as per ID. MMODL / IJN: [id number] /
--- NOTE | 2020-04-12 12:04 | P.PN ---
Subjective Progress Note Date: 04/12/20 Principal diagnosis: Hypotension, urinary tract infection with sepsis 80-year-old male patient got transferred from dialysis center as the patient's blood pressure was running low and he was unable to tolerate the the treatment. Dialysis was cut short by around 2 hours according to him. He is known to me. He is known to have extensive comorbidities including coronary artery disease, previous bypass surgery, CHF with ejection fraction 45%, mild aortic stenosis, hypertension and hyperlipidemia and the patient has chronic kidney disease and has been started on hemodialysis few months back via a temporary dialysis catheter in his right IJ. He also has history of diabetes mellitus, paroxysmal atrial flutter/fibrillation, peripheral vascular disease, BPH, and a chronic r ight-sided pleural effusion that was drained in the past where a total of 900 mL of fluid was aspirated from the right lung and the fluid glove turner and former to be a transudate consistent with CHF. In any rate, the patient does have a Torres catheter. The urine output is quite and there is a suspicion for now underlying urine checked infection as the patient has more than 182 white cells and his urine analysis. Cultures still pending for now. The chest x-ray findings are essentially stable. The patient is stable cardiomegaly and stable loculated right-sided pleural effusion without evidence of any pneumothorax. No reported cough. No reported sputum production. The patient is covered empirically with IV Zosyn for now. He is afebrile. Most recent blood pressure is 97 with 54 with a room air pulse ox of 97%. His breathing is nonlabored. On 04/09/2020 patient seen on the selective care unit, his having a dialysis treatment right now, he states his breathing is comfortable, does not appear to be in any acute distress. On 2 L of oxygen and pulse ox 96%, he is afebrile, hemodynamically he is stable. Urine culture came back positive for group D enterococcus, Enterobacter amnigenus biogroup, and group D enterococcus bacteremia, and currently patient is on vancomycin per ID service recom mendations, initially was covered with Zosyn. Patient continues on IV Lasix at 40 mg every 8 hours. Lung sounds are clear diminished at the bases, no significant rhonchi or wheezing, no cough or congestion. No couplets or chest pain. The patient was seen today 04/10/2020 in follow-up on the selective care unit. He is currently resting comfortably in bed. Awake and alert in no acute distress. Denies any worsening shortness of breath, cough or congestion. He did receive hemodialysis yesterday with 2.5 L of fluid removed. Follow-up blood cultures are positive for group D enterococcus with initial cultures positive for Enterococcus faecalis. Urine culture positive for Enterococcus faecalis. He is currently on vancomycin. Remains on bronchodilators and IV diuretics. Patient is seen today 04/12/2020 in follow-up on the regular medical floor. He is currently up in a chair at the bedside. Awake and alert in no acute distress. Chest x-ray continues to show diffuse bilateral airspace disease and bilateral pleural effusions and pulmonary edema. He is due for hemodialysis today with ultrafiltration of about 2 L of possible. He remains on IV diuretics. Follow-up blood cultures were still positive for Enterococcus faecalis. White count 13.4. Hemoglobin 10.6. Sodium 133. Potassium 4.4. Creatinine 3.3. Remains on Unasyn. Objective - Vital Signs Vital signs: Vital Signs Temp 97.5 F L 04/12/20 06:41 Pulse 76 04/12/20 09:28 Resp 20 04/12/20 08:00 BP 113/68 04/12/20 06:41 Pulse Ox 97 04/12/20 06:41 Intake & Output 04/11/20 04/12/20 04/12/20 18:59 06:59 18:59 Intake Total 100 Output Total 2500 100 Balance -2500 0 Weight 86 kg Intake: Oral 100 Output: Urine 300 100 Hemodialysis 2200 Other: Voiding Method Indwelling Catheter Indwelling Catheter Indwelling Catheter # Voids 0 1 # Bowel Movements 2 2 - Exam GENERAL EXAM: Alert, very pleasant, 72-year-old male patient, on 2 L of oxygen the pulse ox of 97%, up in a chair at the bedside, comfortable in no apparent distress. HEAD: Normocephalic/atraumatic. EYES: Normal reaction of pupils, equal size. Conjunctiva pink, sclera white. NOSE: Clear with pink turbinates. THROAT: No erythema or exudates. NECK: No masses, no JVD, no thyroid enlargement, no adenopathy. Right IJ dialysis catheter CHEST: No chest wall deformity. Symmetrical expansion. LUNGS: Equal air entry with bibasilar crackles right greater than left. CVS: Regular rate and rhythm, normal S1 and S2, no gallops, no murmurs, no rubs ABDOMEN: Soft, nontender. No hepatosplenomegaly, normal bowel sounds, no guarding or rigidity. EXTREMITIES: No clubbing, mild pretibial edema, no cyanosis, 2+ pulses and upper and lower extremities. MUSCULOSKELETAL: Muscle strength and tone normal. SPINE: No scoliosis or deformity SKIN: No rashes CENTRAL NERVOUS SYSTEM: No focal deficits, tone is normal in all 4 extremities. PSYCHIATRIC: Alert and oriented -3. Appropriate affect. Intact judgment and insight. - Labs CBC & Chem 7: 04/12/20 06:29 04/12/20 06:29 Labs: Abnormal Lab Results - Last 24 Hours (Table) 04/11/20 04/11/20 04/11/20 Range/Units 16:34 22:36 22:51 WBC (3.8-10.6) k/uL RBC (4.30-5.90) m/uL Hgb (13.0-17.5) gm/dL Hct (39.0-53.0) % MCHC (31.0-37.0) g/dL RDW (11.5-15.5) % Neutrophils # (1.3-7.7) k/uL Lymphocytes # (1.0-4.8) k/uL Sodium (137-145) mmol/L BUN (9-20) mg/dL Creatinine (0.66-1.25) mg/dL Glucose (74-99) mg/dL POC Glucose (mg/dL) 143 H 58 L 62 L (75-99) mg/dL Calcium (8.4-10.2) mg/dL 04/11/20 04/12/20 04/12/20 Range/Units 23:05 06:29 06:29 WBC 13.4 H (3.8-10.6) k/uL RBC 4.00 L (4.30-5.90) m/uL Hgb 10.6 L (13.0-17.5) gm/dL Hct 36.0 L (39.0-53.0) % MCHC 29.4 L (31.0-37.0) g/dL RDW 17.2 H (11.5-15.5) % Neutrophils # 11.5 H (1.3-7.7) k/uL Lymphocytes # 0.4 L (1.0-4.8) k/uL Sodium 133 L (137-145) mmol/L BUN 35 H (9-20) mg/dL Creatinine 3.33 H (0.66-1.25) mg/dL Glucose 42 L* (74-99) mg/dL POC Glucose (mg/dL) 66 L (75-99) mg/dL Calcium 8.0 L (8.4-10.2) mg/dL 04/12/20 04/12/20 04/12/20 Range/Units 06:53 07:40 08:17 WBC (3.8-10.6) k/uL RBC (4.30-5.90) m/uL Hgb (13.0-17.5) gm/dL Hct (39.0-53.0) % MCHC (31.0-37.0) g/dL RDW (11.5-15.5) % Neutrophils # (1.3-7.7) k/uL Lymphocytes # (1.0-4.8) k/uL Sodium (137-145) mmol/L BUN (9-20) mg/dL Creatinine (0.66-1.25) mg/dL Glucose (74-99) mg/dL POC Glucose (mg/dL) 57 L 74 L 133 H (75-99) mg/dL Calcium (8.4-10.2) mg/dL 04/12/20 Range/Units 11:35 WBC (3.8-10.6) k/uL RBC (4.30-5.90) m/uL Hgb (13.0-17.5) gm/dL Hct (39.0-53.0) % MCHC (31.0-37.0) g/dL RDW (11.5-15.5) % Neutrophils # (1.3-7.7) k/uL Lymphocytes # (1.0-4.8) k/uL Sodium (137-145) mmol/L BUN (9-20) mg/dL Creatinine (0.66-1.25) mg/dL Glucose (74-99) mg/dL POC Glucose (mg/dL) 161 H (75-99) mg/dL Calcium (8.4-10.2) mg/dL Microbiology - Last 24 Hours (Table) 04/09/20 05:48 Blood Culture - Preliminary Blood No Growth after 72 hours 04/09/20 10:40 Blood Culture Gram Stain - Final Blood Blood Culture - Final Enterococcus faecalis 04/10/20 16:00 Blood Culture - Preliminary Blood No Growth after 24 hours 04/08/20 14:20 Blood Culture - Preliminary Blood No Growth after 72 hours 04/10/20 14:07 Blood Culture - Preliminary Blood No Growth after 24 hours 04/07/20 13:41 Blood Culture Gram Stain - Final Blood Blood Culture - Final Enterococcus faecalis Assessment and Plan Assessment: 1 hypotension currently under investigation related to enterococcus bacteremia related to urinary tract infection with urine cultures positive for enterococcus faecalis, currently on Unasyn, final urine culture and blood culture both positive for Enterococcus faecalis 2 End stage renal disease currently on hemodialysis. The patient has done dial ysis for the past 2 month 3 small bilateral pleural effusions, and the patient has had a loculated right- sided pleural effusion and a previous drainage of the right lung yielded into a non-cc of pleural fluid that was a transudate. 4 CHF with ejection fraction 45% and mild aortic stenosis and moderate mitral regurgitation. Echocardiac Richard is to be repeated. The patient has mild systolic heart failure 5 chronic atrial fibrillation maintained on Eliquis on outpatient basis 6 diabetes mellitus 7 hypertension 8 hyperlipidemia 9 coronary artery disease with previous bypass surgery that was performed in December 2018 10 history of iron deficiency anemia with a positive occult blood in the stool 11 anemia of chronic disease 12 generalized weakness and fatigue with a marginally low blood pressure Plan: The patient was seen and evaluated by Dr. Jacob Chest x-ray and labs reviewed Remains on IV diuretics To have hemodialysis with ultrafiltration and possibly 2 L removed today Currently stable from the pulmonary standpoint Continue the current treatment plan We'll continue to follow I, the cosigning physician, performed a history & physical examination of the patient. Lungs sounds with crackles in the bilateral posterior bases, right greater than left. Maintaining good O2 saturations in the 90s on 2 L/m per nasal cannula. I discussed the assessment and plan of care with my nurse practitioner, Page Cervantes. I attest to the above note as dictated by her.
[2020-04-12] MEDS: AMPICILLIN-SULBACTAM 3 GM in SODIUM CHLORIDE 0.9% 100 ML IVPB SCH (12:08)
[2020-04-12] MEDS: FUROSEMIDE 10 MG/ML 4 ML VIAL IV SCH ×3 (12:08→23:10)
--- NOTE | 2020-04-12 15:46 | P.PN ---
Subjective Progress Note Date: 04/12/20 Principal diagnosis: This is a 80-year-old male who was recently admitted with congestive heart failure acute exacerbation and is being closely monitored. Patient is maintained on hemodialysis on Wednesday//Wednesday and nephrology was consulted. Patient to receive hemodialysis tomorrow. Cardiology also following. Patient continues to have some shortness of breath and weakness. Patient's blood culture preliminary showing group D enterococcus in urine culture preliminary showing group D enterococcus with gram-negative bacilli. Patient is currently maintained on Unasyn and will continue at this time given kidney functions. Infectious disease was consulted and pending at this time. Orthostatic vital signs obtained. Patient is continued on IV Lasix at 40 mg ev doris 8 hours and will continue at this time. Patient to continue with DuoNeb treatments. Review of systems: Constitutional: Reports fatigue, no reports of fevers or chills Cardiovascular: No reports of chest pain or palpitation Respiratory: Reports some shortness of breath, no reports of cough GI: No reports of nausea, vomiting, or diarrhea : No reports of dysuria or retention Neurovascular: Reports weakness, no reports of numbness 04/09/2020 Patient is seen and evaluated and follow-up continues to be dyspneic and is currently maintained on 2 L of oxygen via nasal cannula. Patient is currently receiving hemodialysis and nephrology following closely. Infectious disease also following as patient's blood cultures preliminary were showing group D enterococcus in urine culture showing group D enterococcus, Enterobacte amnigenus biogrp 2, and Omaira albicans. Patient is being transitioned to vancomycin and Zosyn has been discontinued. Patient denies any chest pain or palpitations. Patient has been afebrile. Reports of nausea or vomiting patient is tolerating diet. Patient is currently maintained on sliding scale along with long-acting and will continue to monitor closely as patient had an episode of hypoglycemia this morning with a blood sugar of 49. Patient will continue with before meals at bedtime and treat accordingly. Pulmonary and cardiology also following closely. 04/10/2020 Patient is seen in follow-up today status post hemodialysis yesterday states his breathing has improved. Patient is being closely monitored. Multiple medical consultations following including pulmonary, nephrology, and infectious disease. Repeat Blood cultures preliminary showing group D enterococcus and previous cultures finalized showing enterococcus faecalis along with multiple other organisms. Patient is continued on IV antibiotic therapy in the form of vancomycin and will continue at this time. Will continue with blood cultures while waiting for clearance of bacteremia. Patient is maintained on dialysis Wednesday//Wednesday and will receive hemodialysis in the morning. Case management and social work following as patient currently resides at an [facility] home in may possibly need SNF placement is continued IV antibiotic therapy is necessary. Will continue to monitor closely. Review of systems: Constitutional: No reports of fevers or chills, reports some fatigue Cardiovascular: No reports of chest pain or palpitations Respiratory: Reports mild shortness of breath, no reports of cough GI: No reports of nausea, vomiting, or diarrhea : No reports of dysuria or retention Neurovascular: No reports of weakness or numbness 04/11/2020 Patient is seen and evaluated and follow-up currently receiving hemodialysis. Patient underwent CT of the chest abdomen pelvis showing large right and moderate left pleural effusions with airspace opacity And atelectasis in bilateral lung vaughan, a re-demonstrated masslike opacity in the left lower lobe as shown on previous CAT scan, findings may represent infectious or neoplastic etiology, small volume ascites, small amount Of contrastNoted in the esophagus That may represent reflux versus delayed esophageal emptying. Patient has no reports of increasing shortness of breath. Patient is currently maintained on 2 L of oxygen via nasal cannula. Patient is maintained on hemodialysis Wednesday//Wednesday. Multiple medical consultations including Pulmonary, Cardiology, nephrology, and infectious disease. Blood cultures That were repeated on 04/09/2020 finalized showing enterococcus faecalis Patient is ma intained on Unasyn and will continue at this time. Case management and social work following as patient currently resides at an [facility] home and working on arrangements for possible IV antibiotic therapy in the outpatient setting. Patient also underwent a 2-D echo which is currently pending at this time. Will continue to monitor closely. 04/12/2020 Patient is seen in follow-up today with Most recent blood cultures from 04/10/2020 and 04/11/2020 remaining negative after 24 hours. Patient will likel y need IV antibiotic therapy in the outpatient setting and is currently scheduled to receive a midline. Patient is maintained on Unasyn and will continue at this time. Infectious disease is following. Multiple medical consultations following. Patient's blood sugars have been running slightly low in the morning and adjustments being made to long acting insulin. Patient will continue with sliding scale as well at this time. Patient's repeat chest x-ray today shows diffuse bilateral airspace disease with bilateral pleural effusions and correlate for CHF with pulmonary edema otherwise diffuse pneumonia. Pulmonary is following. Patient will receive hemodialysis today and possibly tomorrow. White blood count is 13.4 and trending down. Patient continues on IV Lasix and will continue at this time. Currently patient denies any chest pain, shortness of breath, or palpitations. Patient is afebrile. Patient denies any nausea or vomiting and is tolerating diet. Objective - Vital Signs Vital signs: Vital Signs Temp 97.5 F L 04/12/20 06:41 Pulse 72 04/12/20 13:05 Resp 20 04/12/20 08:00 BP 113/68 04/12/20 06:41 Pulse Ox 97 04/12/20 06:41 Intake & Output 04/11/20 04/12/20 04/12/20 18:59 06:59 18:59 Intake Total 100 Output Total 2500 100 Balance -2500 0 Weight 86 kg Intake: Oral 100 Output: Urine 300 100 Hemodialysis 2200 Other: Voiding Method Indwelling Catheter Indwelling Catheter Indwelling Catheter # Voids 0 1 # Bowel Movements 2 2 - Exam Gen: This is a 80-year-old male lying in bed, awake, alert and oriented 3, well-developed, well-nourished. Temp is 97.5F, pulse is 71, respirations are 20, blood pressure is 113/68, oxygen saturation is 97% on 2 L via nasal cannula. HEENT: Head is atraumatic, normocephalic. Pupils equal, round. Sclerae is anicteric. NECK: Supple. No JVD. No lymphadenopathy. No thyromegaly. LUNGS: Breath sounds diminished at the bases with a few scattered rhonchi noted. No intercostal retractions. HEART: Regular rate and rhythm. No murmur. ABDOMEN: Soft. Obese. Bowel sounds are present. No masses. No tenderness. EXTREMITIES: No pedal edema. No calf tenderness. Bilateral lower extremity edema, Slightly improved NEUROLOGICAL: Patient is awake, alert and oriented x3. Diffusely weak - Labs CBC & Chem 7: 04/12/20 06:29 04/12/20 06:29 Labs: Abnormal Lab Results - Last 24 Hours (Table) 04/11/20 04/11/20 04/11/20 Range/Units 16:34 22:36 22:51 WBC (3.8-10.6) k/uL RBC (4.30-5.90) m/uL Hgb (13.0-17.5) gm/dL Hct (39.0-53.0) % MCHC (31.0-37.0) g/dL RDW (11.5-15.5) % Neutrophils # (1.3-7.7) k/uL Lymphocytes # (1.0-4.8) k/uL Sodium (137-145) mmol/L BUN (9-20) mg/dL Creatinine (0.66-1.25) mg/dL Glucose (74-99) mg/dL POC Glucose (mg/dL) 143 H 58 L 62 L (75-99) mg/dL Calcium (8.4-10.2) mg/dL 04/11/20 04/12/20 04/12/20 Range/Units 23:05 06:29 06:29 WBC 13.4 H (3.8-10.6) k/uL RBC 4.00 L (4.30-5.90) m/uL Hgb 10.6 L (13.0-17.5) gm/dL Hct 36.0 L (39.0-53.0) % MCHC 29.4 L (31.0-37.0) g/dL RDW 17.2 H (11.5-15.5) % Neutrophils # 11.5 H (1.3-7.7) k/uL Lymphocytes # 0.4 L (1.0-4.8) k/uL Sodium 133 L (137-145) mmol/L BUN 35 H (9-20) mg/dL Creatinine 3.33 H (0.66-1.25) mg/dL Glucose 42 L* (74-99) mg/dL POC Glucose (mg/dL) 66 L (75-99) mg/dL Calcium 8.0 L (8.4-10.2) mg/dL 04/12/20 04/12/20 04/12/20 Range/Units 06:53 07:40 08:17 WBC (3.8-10.6) k/uL RBC (4.30-5.90) m/uL Hgb (13.0-17.5) gm/dL Hct (39.0-53.0) % MCHC (31.0-37.0) g/dL RDW (11.5-15.5) % Neutrophils # (1.3-7.7) k/uL Lymphocytes # (1.0-4.8) k/uL Sodium (137-145) mmol/L BUN (9-20) mg/dL Creatinine (0.66-1.25) mg/dL Glucose (74-99) mg/dL POC Glucose (mg/dL) 57 L 74 L 133 H (75-99) mg/dL Calcium (8.4-10.2) mg/dL 04/12/20 Range/Units 11:35 WBC (3.8-10.6) k/uL RBC (4.30-5.90) m/uL Hgb (13.0-17.5) gm/dL Hct (39.0-53.0) % MCHC (31.0-37.0) g/dL RDW (11.5-15.5) % Neutrophils # (1.3-7.7) k/uL Lymphocytes # (1.0-4.8) k/uL Sodium (137-145) mmol/L BUN (9-20) mg/dL Creatinine (0.66-1.25) mg/dL Glucose (74-99) mg/dL POC Glucose (mg/dL) 161 H (75-99) mg/dL Calcium (8.4-10.2) mg/dL Microbiology - Last 24 Hours (Table) 04/09/20 05:48 Blood Culture - Preliminary Blood No Growth after 72 hours 04/09/20 10:40 Blood Culture Gram Stain - Final Blood Blood Culture - Final Enterococcus faecalis 04/10/20 16:00 Blood Culture - Preliminary Blood No Growth after 24 hours 04/08/20 14:20 Blood Culture - Preliminary Blood No Growth after 72 hours 04/10/20 14:07 Blood Culture - Preliminary Blood No Growth after 24 hours Assessment and Plan Assessment: Shortness of breath possibly multifactorial with congestive heart failure, acute exacerbation with acute on chronic systolic dysfunction, ejection fraction 45% with moderate mitral regurgitation, aortic stenosis Large right and moderate left pleural effusion Sepsis due to Group D enterococcus bacteremia, present on admission Chronic kidney disease end-stage renal disease on hemodialysis, Wednesday//Wednesday Increased white blood count Anemia, normocytic Rule out right lower lobe pneumonia hyponatremia Elevated AST, ALT Acute urinary tract infection, with possible sepsis, present on admission, urine and blood cultures showing enterococcus faecalis Atrial fibrillation chronic history of coronary artery disease History of congestive heart failure Diabetes mellitus type 2 Gastroesophageal reflux disease Hypertension Hyperlipidemia Myocardial infarction history of degenerative joint disease History of bilateral lower extremity cellulitis, ulcers with Klebsiella, Pseudomonas History of diabetes, uncontrolled History of pleural effusion with right side thoracentesis History of paroxysmal atrial flutter Peripheral vascular disease History of benign prostatic hypertrophy History of coronary artery disease, CABG history of urinary retention History of coronary artery disease, stent Obesity with a body mass index of 31 Full code Recommendations and discussion: Recommend continue current medications, management, and symptomatic treatment. Patient is maintained on IV antibiotics in the form of Unasyn and will continue at this time. Infectious disease following. blood cultures showing enterococcus faecalis with urine culture finalized showing enterococcus faecalis, enterobacte amnigenus biogrp 2, and Omaira albicans. Repeat blood cultures from 04/10 And 04/11 Showing no growth for 24 hours. Nephrology following as well and patient is currently receiving hemodialysis on his Wednesday// Wednesday schedule. Patient is receiving daily dialysis with ultrafiltration of about 2 L removal and is currently maintained on IV Lasix and will continue at this time. Pulmonary and infectious disease also following. Will repeat a.m. labs. Patient is currently receiving a midline today for continued IV antibiotic therapy in the outpatient setting. Due to multiple complex medical issues, prognosis is guarded. Case management and social work following as patient may need SNF placement once stabilized and discharged if IV antibiotic therapy is necessary. Current [facility] home working on possibility of accommodating IV antibiotic therapy with the infusion center. Further recommendations to follow.
[2020-04-12 17:17] LABS: Glucose,Whole Blood 212 mg/dL (75-99)
[2020-04-12 20:08] LABS: Glucose,Whole Blood 162 mg/dL (75-99)
[2020-04-12] MEDS: MELATONIN 5 MG TABLET PO SCH (20:15)
[2020-04-13 00:50] LABS: Glucose,Whole Blood 148 mg/dL (75-99)
--- NOTE | 2020-04-13 01:03 | PN ---
PROGRESS NOTE DATE OF SERVICE: 04/12/2020 REASON FOR FOLLOWUP: Enterococcus faecalis bacteremia. INTERVAL HISTORY: Patient is currently afebrile. The patient has been breathing comfortably. The patient denies having any chest pain. No shortness of breath or cough. No nausea, vomiting. No abdominal pain or diarrhea. PHYSICAL EXAMINATION: Blood pressure is 124/75, pulse of 83, temperature 97.5. He is 100% on 2 L nasal cannula. General description is an elderly male lying in bed in no distress. Respiratory system: Unlabored breathing, clear to auscultation anteriorly. Heart S1, S2. Regular rate and rhythm. Abdomen soft, no tenderness. LABS: Hemoglobin is 10.6, white count 13.4, BUN of 35, creatinine 3.33. Blood cultures 04/10/2020 has been negative. DIAGNOSTIC IMPRESSION AND PLAN: Patient with Enterococcus faecalis bacteremia, source is likely ( ) with concern for possible secondary ( ) catheter though he has cleared his bacteremia quickly making it to be less likely endovascular source. We will keep the patient on Unasyn and possibly transition to vancomycin on discharge. That can be easily administered through the dialysis and close outpatient followup. MMODL / IJN: [id number] /
[2020-04-13 04:01] LABS: Glucose,Whole Blood 150 mg/dL (75-99)
[2020-04-13 07:27] LABS: Glucose,Whole Blood 194 mg/dL (75-99)
[2020-04-13] MEDS: MIDODRINE 5 MG TAB PO SCH ×3 (07:40→16:52)
[2020-04-13] MEDS: CALCIUM ACETATE 667 MG TAB PO SCH ×3 (07:40→16:52)
[2020-04-13] MEDS: APIXABAN 2.5 MG TABLET PO SCH ×2 (07:40→21:00)
[2020-04-13] MEDS: ASCORBIC ACID 500 MG TAB PO SCH ×2 (07:41→16:52)
[2020-04-13] MEDS: PANTOPRAZOLE 40 MG TABLET PO SCH (07:41)
[2020-04-13] MEDS: METOPROLOL TARTRATE 25 MG TAB PO SCH ×2 (07:41→21:00)
[2020-04-13] MEDS: FINASTERIDE 5 MG TAB PO SCH (07:41)
[2020-04-13] MEDS: FERROUS SULFATE 325 MG TAB PO SCH (07:41)
[2020-04-13] MEDS: CALCIUM CARBONATE 500 MG CHEWABLE PO SCH ×2 (07:42→21:00)
[2020-04-13] MEDS: FUROSEMIDE 10 MG/ML 4 ML VIAL IV SCH (07:42)
[2020-04-13] MEDS: INSULIN ASPART (NovoLOG) 100 UNIT/ML VIAL SQ SCH ×4 (07:42→21:00)
[2020-04-13] MEDS: AMPICILLIN-SULBACTAM 3 GM in SODIUM CHLORIDE 0.9% 100 ML IVPB SCH (07:42)
[2020-04-13] MEDS: INSULIN DETEMIR (LEVEMIR) 100 UNIT/ML SYR SQ SCH (07:43)
[2020-04-13] MEDS: IPRATROPIUM-ALBUTEROL 3 ML NEB INHALATION SCH ×3 (08:03→20:22)
[2020-04-13 09:03] LABS: Anisocytosis Slight; Basophils # (A) 0.1 k/uL (0-0.2); Basophils % (A) 1 %; Eosinophils # (A) 0.2 k/uL (0-0.7); Eosinophils % (A) 2 %; HGB 11.1 gm/dL (13.0-17.5); Hypochromasia Marked; Lymphocytes # (A) 0.3 k/uL (1.0-4.8); Lymphocytes % (A) 3 %; MCH 26.7 pg (25.0-35.0); MCHC 29.2 g/dL (31.0-37.0); MCV 91.6 fL (80.0-100.0); Mean Platelet Volume 7.2; Monocytes # (A) 0.8 k/uL (0-1.0); Monocytes % (A) 6 %; Neutrophils # (A) 11.2 k/uL (1.3-7.7); Neutrophils % (A) 87 %; Platelet Count 270 k/uL (150-450); RBC 4.14 m/uL (4.30-5.90); WBC 12.9 k/uL (3.8-10.6)
[2020-04-13 09:11] LABS: Calcium 8.2 mg/dL (8.4-10.2); Potassium 5.5 mmol/L (3.5-5.1)
[2020-04-13] MEDS: NON FORMULARY DRUG (Rosuvastatin 10 MG) PO SCH (09:23)
--- NOTE | 2020-04-13 11:02 | P.PN ---
Subjective Patient is seen in follow for end-stage renal disease. He is maintained on hemodialysis on Wednesday schedule. Currently being treated for enterococcus bacteremia and UTI. Tolerating dialysis well. Denies chest pain or shortness of breath. Vital signs are stable. General: The patient appeared well nourished and normally developed. HEENT: Head exam is unremarkable. Neck is without jugular venous distension. LUNGS: Breath sounds decreased. HEART: Rate and Rhythm are regular. ABDOMEN: Soft, nontender. EXTREMITITES: 3+ edema. Objective - Vital Signs Vital signs: Vital Signs Temp 98.8 F 04/13/20 07:21 Pulse 72 04/13/20 08:15 Resp 16 04/13/20 08:00 BP 102/62 04/13/20 07:21 Pulse Ox 94 L 04/13/20 07:21 Intake & Output 04/12/20 04/13/20 04/13/20 18:59 06:59 18:59 Intake Total 250 Output Total 250 Balance 0 Intake: Oral 250 Output: Urine 250 Other: Voiding Method Indwelling Catheter Indwelling Catheter Indwelling Catheter # Voids 1 # Bowel Movements 2 - Labs CBC & Chem 7: 04/13/20 08:24 04/13/20 08:24 Labs: Abnormal Lab Results - Last 24 Hours (Table) 04/12/20 04/12/20 04/12/20 Range/Units 11:35 17:12 20:06 WBC (3.8-10.6) k/uL RBC (4.30-5.90) m/uL Hgb (13.0-17.5) gm/dL Hct (39.0-53.0) % MCHC (31.0-37.0) g/dL RDW (11.5-15.5) % Neutrophils # (1.3-7.7) k/uL Lymphocytes # (1.0-4.8) k/uL Sodium (137-145) mmol/L Potassium (3.5-5.1) mmol/L Chloride (98-107) mmol/L Carbon Dioxide (22-30) mmol/L BUN (9-20) mg/dL Creatinine (0.66-1.25) mg/dL Glucose (74-99) mg/dL POC Glucose (mg/dL) 161 H 212 H 162 H (75-99) mg/dL Calcium (8.4-10.2) mg/dL 04/13/20 04/13/20 04/13/20 Range/Units 00:49 04:00 07:21 WBC (3.8-10.6) k/uL RBC (4.30-5.90) m/uL Hgb (13.0-17.5) gm/dL Hct (39.0-53.0) % MCHC (31.0-37.0) g/dL RDW (11.5-15.5) % Neutrophils # (1.3-7.7) k/uL Lymphocytes # (1.0-4.8) k/uL Sodium (137-145) mmol/L Potassium (3.5-5.1) mmol/L Chloride (98-107) mmol/L Carbon Dioxide (22-30) mmol/L BUN (9-20) mg/dL Creatinine (0.66-1.25) mg/dL Glucose (74-99) mg/dL POC Glucose (mg/dL) 148 H 150 H 194 H (75-99) mg/dL Calcium (8.4-10.2) mg/dL 04/13/20 04/13/20 Range/Units 08:24 08:24 WBC 12.9 H (3.8-10.6) k/uL RBC 4.14 L (4.30-5.90) m/uL Hgb 11.1 L (13.0-17.5) gm/dL Hct 38.0 L (39.0-53.0) % MCHC 29.2 L (31.0-37.0) g/dL RDW 17.0 H (11.5-15.5) % Neutrophils # 11.2 H (1.3-7.7) k/uL Lymphocytes # 0.3 L (1.0-4.8) k/uL Sodium 130 L (137-145) mmol/L Potassium 5.5 H (3.5-5.1) mmol/L Chloride 96 L (98-107) mmol/L Carbon Dioxide 21 L (22-30) mmol/L BUN 46 H (9-20) mg/dL Creatinine 3.78 H (0.66-1.25) mg/dL Glucose 188 H (74-99) mg/dL POC Glucose (mg/dL) (75-99) mg/dL Calcium 8.2 L (8.4-10.2) mg/dL Microbiology - Last 24 Hours (Table) 04/09/20 05:48 Blood Culture - Preliminary Blood No Growth after 96 hours 04/10/20 16:00 Blood Culture - Preliminary Blood No Growth after 48 hours 04/08/20 14:20 Blood Culture - Preliminary Blood No Growth after 96 hours 04/10/20 14:07 Blood Culture - Preliminary Blood No Growth after 48 hours 04/11/20 12:30 Blood Culture - Preliminary Blood No Growth after 24 hours 04/09/20 10:40 Blood Culture Gram Stain - Final Blood Blood Culture - Final Enterococcus faecalis Assessment and Plan Plan: Assessment: 1. End-stage renal disease maintained on hemodialysis on Wednesday schedule. 2. Enterococcus facialis bacteremia maintained on antibiotics. Infectious d isease following. 3. Volume overload. 4. Hyponatremia secondary to chronic kidney disease. Hypervolemic. 5. Chronic kidney disease mineral bone disease maintained on PhosLo. 6. Chronic hypotension maintained on midodrine. Plan: Currently seen while undergoing hemodialysis. Will try 44 L ultrafiltration today. Change Lasix to 80 mg orally twice daily.
[2020-04-13 12:13] LABS: Glucose,Whole Blood 152 mg/dL (75-99)
--- NOTE | 2020-04-13 12:26 | P.PN ---
Subjective Progress Note Date: 04/13/20 Principal diagnosis: Hypotension, urinary tract infection with sepsis 80-year-old male patient got transferred from dialysis center as the patient's blood pressure was running low and he was unable to tolerate the the treatment. Dialysis was cut short by around 2 hours according to him. He is known to me. He is known to have extensive comorbidities including coronary artery disease, previous bypass surgery, CHF with ejection fraction 45%, mild aortic stenosis, hypertension and hyperlipidemia and the patient has chronic kidney disease and has been started on hemodialysis few months back via a temporary dialysis catheter in his right IJ. He also has history of diabetes mellitus, paroxysmal atrial flutter/fibrillation, peripheral vascular disease, BPH, and a chronic r ight-sided pleural effusion that was drained in the past where a total of 900 mL of fluid was aspirated from the right lung and the fluid stock turner to be a transudate consistent with CHF. In any rate, the patient does have a Torres catheter. The urine output is quite and there is a suspicion for now underlying urine checked infection as the patient has more than 182 white cells and his urine analysis. Cultures still pending for now. The chest x-ray findings are essentially stable. The patient is stable cardiomegaly and stable loculated right-sided pleural effusion without evidence of any pneumothorax. No reported cough. No reported sputum production. The patient is covered empirically with IV Zosyn for now. He is afebrile. Most recent blood pressure is 97 with 54 with a room air pulse ox of 97%. His breathing is nonlabored. On 04/09/2020 patient seen on the selective care unit, his having a dialysis treatment right now, he states his breathing is comfortable, does not appear to be in any acute distress. On 2 L of oxygen and pulse ox 96%, he is afebrile, hemodynamically he is stable. Urine culture came back positive for group D enterococcus, Enterobacter amnigenus biogroup, and group D enterococcus bacteremia, and currently patient is on vancomycin per ID service recom mendations, initially was covered with Zosyn. Patient continues on IV Lasix at 40 mg every 8 hours. Lung sounds are clear diminished at the bases, no significant rhonchi or wheezing, no cough or congestion. No couplets or chest pain. The patient was seen today 04/10/2020 in follow-up on the selective care unit. He is currently resting comfortably in bed. Awake and alert in no acute distress. Denies any worsening shortness of breath, cough or congestion. He did receive hemodialysis yesterday with 2.5 L of fluid removed. Follow-up blood cultures are positive for group D enterococcus with initial cultures positive for Enterococcus faecalis. Urine culture positive for Enterococcus faecalis. He is currently on vancomycin. Remains on bronchodilators and IV diuretics. Patient is seen today 04/12/2020 in follow-up on the regular medical floor. He is currently up in a chair at the bedside. Awake and alert in no acute distress. Chest x-ray continues to show diffuse bilateral airspace disease and bilateral pleural effusions and pulmonary edema. He is due for hemodialysis today with ultrafiltration of about 2 L of possible. He remains on IV diuretics. Follow-up blood cultures were still positive for Enterococcus faecalis. White count 13.4. Hemoglobin 10.6. Sodium 133. Potassium 4.4. Creatinine 3.3. Remains on Unasyn. Patient is seen today 04/13/2020 in follow-up on the regular medical floor. He is awake and alert in no acute distress. Resting in bed. Currently receiving hemodialysis. He did have altered filtration yesterday with 2 L removed. The goal is for 4 L today. He is maintaining O2 saturation in the 90s on 2 L/m per nasal cannula. Been afebrile. Blood cultures positive for Enterococcus faecalis. Follow-up cultures pending. White count 12.9. Hemoglobin 11.1. Sodium 1:30. Potassium 5.5. Creatinine 3.78. He is currently on Unasyn. Con verted to oral Lasix. Objective - Vital Signs Vital signs: Vital Signs Temp 98.8 F 04/13/20 07:21 Pulse 80 04/13/20 12:06 Resp 16 04/13/20 08:00 BP 102/62 04/13/20 07:21 Pulse Ox 94 L 04/13/20 07:21 Intake & Output 04/12/20 04/13/20 04/13/20 18:59 06:59 18:59 Intake Total 250 Output Total 250 Balance 0 Intake: Oral 250 Output: Urine 250 Other: Voiding Method Indwelling Catheter Indwelling Catheter Indwelling Catheter # Voids 1 # Bowel Movements 2 - Exam GENERAL EXAM: Alert, very pleasant, 72-year-old male patient, on 2 L of oxygen the pulse ox of 94%, up in a chair at the bedside, comfortable in no apparent distress. HEAD: Normocephalic/atraumatic. EYES: Normal reaction of pupils, equal size. Conjunctiva pink, sclera white. NOSE: Clear with pink turbinates. THROAT: No erythema or exudates. NECK: No masses, no JVD, no thyroid enlargement, no adenopathy. Right IJ dialysis catheter CHEST: No chest wall deformity. Symmetrical expansion. LUNGS: Equal air entry with bibasilar crackles right greater than left. CVS: Regular rate and rhythm, normal S1 and S2, no gallops, no murmurs, no rubs ABDOMEN: Soft, nontender. No hepatosplenomegaly, normal bowel sounds, no guarding or rigidity. EXTREMITIES: No clubbing, mild pretibial edema, no cyanosis, 2+ pulses and upper and lower extremities. MUSCULOSKELETAL: Muscle strength and tone normal. SPINE: No scoliosis or deformity SKIN: No rashes CENTRAL NERVOUS SYSTEM: No focal deficits, tone is normal in all 4 extremities. PSYCHIATRIC: Alert and oriented -3. Appropriate affect. Intact judgment and insight. - Labs CBC & Chem 7: 04/13/20 08:24 04/13/20 08:24 Labs: Abnormal Lab Results - Last 24 Hours (Table) 04/12/20 04/12/20 04/13/20 Range/Units 17:12 20:06 00:49 WBC (3.8-10.6) k/uL RBC (4.30-5.90) m/uL Hgb (13.0-17.5) gm/dL Hct (39.0-53.0) % MCHC (31.0-37.0) g/dL RDW (11.5-15.5) % Neutrophils # (1.3-7.7) k/uL Lymphocytes # (1.0-4.8) k/uL Sodium (137-145) mmol/L Potassium (3.5-5.1) mmol/L Chloride (98-107) mmol/L Carbon Dioxide (22-30) mmol/L BUN (9-20) mg/dL Creatinine (0.66-1.25) mg/dL Glucose (74-99) mg/dL POC Glucose (mg/dL) 212 H 162 H 148 H (75-99) mg/dL Calcium (8.4-10.2) mg/dL 04/13/20 04/13/20 04/13/20 Range/Units 04:00 07:21 08:24 WBC 12.9 H (3.8-10.6) k/uL RBC 4.14 L (4.30-5.90) m/uL Hgb 11.1 L (13.0-17.5) gm/dL Hct 38.0 L (39.0-53.0) % MCHC 29.2 L (31.0-37.0) g/dL RDW 17.0 H (11.5-15.5) % Neutrophils # 11.2 H (1.3-7.7) k/uL Lymphocytes # 0.3 L (1.0-4.8) k/uL Sodium (137-145) mmol/L Potassium (3.5-5.1) mmol/L Chloride (98-107) mmol/L Carbon Dioxide (22-30) mmol/L BUN (9-20) mg/dL Creatinine (0.66-1.25) mg/dL Glucose (74-99) mg/dL POC Glucose (mg/dL) 150 H 194 H (75-99) mg/dL Calcium (8.4-10.2) mg/dL 04/13/20 04/13/20 Range/Units 08:24 12:09 WBC (3.8-10.6) k/uL RBC (4.30-5.90) m/uL Hgb (13.0-17.5) gm/dL Hct (39.0-53.0) % MCHC (31.0-37.0) g/dL RDW (11.5-15.5) % Neutrophils # (1.3-7.7) k/uL Lymphocytes # (1.0-4.8) k/uL Sodium 130 L (137-145) mmol/L Potassium 5.5 H (3.5-5.1) mmol/L Chloride 96 L (98-107) mmol/L Carbon Dioxide 21 L (22-30) mmol/L BUN 46 H (9-20) mg/dL Creatinine 3.78 H (0.66-1.25) mg/dL Glucose 188 H (74-99) mg/dL POC Glucose (mg/dL) 152 H (75-99) mg/dL Calcium 8.2 L (8.4-10.2) mg/dL Microbiology - Last 24 Hours (Table) 04/09/20 05:48 Blood Culture - Preliminary Blood No Growth after 96 hours 04/10/20 16:00 Blood Culture - Preliminary Blood No Growth after 48 hours 04/08/20 14:20 Blood Culture - Preliminary Blood No Growth after 96 hours 04/10/20 14:07 Blood Culture - Preliminary Blood No Growth after 48 hours 04/11/20 12:30 Blood Culture - Preliminary Blood No Growth after 24 hours Assessment and Plan Assessment: 1 hypotension currently under investigation related to enterococcus bacteremia related to urinary tract infection with urine cultures positive for enterococcus faecalis, currently on Unasyn, final urine culture and blood culture both positive for Enterococcus faecalis 2 End stage renal disease currently on hemodialysis. The patient has done dialysis for the past 2 month 3 small bilateral pleural effusions, and the patient has had a loculated right- sided pleural effusion and a previous drainage of the right lung yielded into a non-cc of pleural fluid that was a transudate. 4 CHF with ejection fraction 45% and mild aortic stenosis and moderate mitral regurgitation. Echocardiac Richard is to be repeated. The patient has mild systolic heart failure 5 chronic atrial fibrillation maintained on Eliquis on outpatient basis 6 diabetes mellitus 7 hypertension 8 hyperlipidemia 9 coronary artery disease with previous bypass surgery that was performed in December 2018 10 history of iron deficiency anemia with a positive occult blood in the stool 11 anemia of chronic disease 12 generalized weakness and fatigue with a marginally low blood pressure Plan: The patient was seen and evaluated by Dr. Jacob To have hemodialysis with ultrafiltration and possibly 4 L removed today Currently stable from the pulmonary standpoint Continue the current treatment plan We'll continue to follow I, the cosigning physician, performed a history & physical examination of the patient. Lungs sounds with crackles in the bilateral posterior bases, right greater than left. Maintaining good O2 saturations in the 90s on 2 L/m per nasal cannula. I discussed the assessment and plan of care with my nurse practitioner, Page Cervantes. I attest to the above note as dictated by her.
[2020-04-13 16:47] LABS: Glucose,Whole Blood 235 mg/dL (75-99)
[2020-04-13] MEDS: FUROSEMIDE 80 MG TAB PO SCH (16:52)
[2020-04-13] MEDS: MELATONIN 5 MG TABLET PO SCH (21:00)
[2020-04-13 21:01] LABS: Glucose,Whole Blood 180 mg/dL (75-99)
--- NOTE | 2020-04-14 00:04 | P.PN ---
Subjective Progress Note Date: 04/13/20 Mr. Brice is a 80-year-old male with multiple chronic medical conditions including CAD status post CABG, CHF with EF of 45%, mild aortic stenosis, hypertension, hyperlipidemia, CKD on hemodialysis sent in from dialysis center as his blood pressure was running low and he was unable to tolerate his dialysis. Eventually patient was found to have blood cultures growing group D enterococcus, that go along with urine culture. So currently he is on Unasyn. Patient also had CT of the chest abdomen and pelvis showing large right and moderate left sided pleural effusion. He also had small volume ascites and also delayed esophageal emptying. Multiple consultants including pulmonary, cardiology, nephrology, ID following the patient closely. Patient also had echocardiogram done showing ejection fraction of 40 to 45% with inferior wall hypokinesis. This morning patient is awake and alert resting comfortably in bed. Patient had dialysis done with almost 3 L of fluid taken today. Blood c ultures have been positive for Enterococcus faecalis and patient has been afebrile for the past 24 hours. On reviewing the labs his white count is 12.9, hemoglobin stable at around 11, sodium 130, potassium 5.5, chloride 96, bicarb 21, BUN 46, creatinine 3.78. Patient's Lasix has been changed to 80 mg twice daily by nephrology today. Active Medications Acetaminophen (Tylenol Tab) 500 mg PO Q6HR PRN PRN Reason: Fever and/ or Pain Last Admin: 04/11/20 09:53 Dose: 500 mg Documented by: Hydrocodone Bitart/Acetaminophen ([place] 5-325) 1 each PO Q4HR PRN PRN Reason: Pain Last Admin: 04/12/20 10:46 Dose: 1 each Documented by: Albuterol/Ipratropium (Duoneb 0.5 Mg-3 Mg/3 Ml Soln) 3 ml INHALATION RT-TID [facility] Last Admin: 04/13/20 20:22 Dose: 3 ml Documented by: Albuterol/Ipratropium (Duoneb 0.5 Mg-3 Mg/3 Ml Soln) 3 ml INHALATION RT-TID PRN PRN Reason: Shortness Of Breath Or Wheezing Apixaban (Eliquis) 2.5 mg PO BID [facility] Last Admin: 04/13/20 21:00 Dose: 2.5 mg Documented by: Ascorbic Acid (Vitamin C) 500 mg PO BID-W/MEALS [facility] Last Admin: 04/13/20 16:52 Dose: 500 mg Documented by: Bacitracin (Bacitracin Zinc Oint) 1 applic TOPICAL BID PRN PRN Reason: INFECTION Calcium Acetate (Phoslo) 667 mg PO TID-W/MEALS [facility] Last Admin: 04/13/20 16:52 Dose: 667 mg Documented by: Calcium Carbonate/Glycine (Tums) 1,000 mg PO BID [facility] Last Admin: 04/13/20 21:00 Dose: 1,000 mg Documented by: Docusate Sodium (Colace) 100 mg PO DAILY PRN PRN Reason: Constipation Ergocalciferol (Vitamin D2) 50,000 unit PO Q72H [facility] Last Admin: 04/12/20 09:12 Dose: 50,000 unit Documented by: Ferrous Sulfate (Feosol) 325 mg PO DAILY [facility] Last Admin: 04/13/20 07:41 Dose: 325 mg Documented by: Finasteride (Proscar) 5 mg PO DAILY [facility] Last Admin: 04/13/20 07:41 Dose: 5 mg Documented by: Furosemide (Lasix) 80 mg PO BID@0900,1600 [facility] Last Admin: 04/13/20 16:52 Dose: 80 mg Documented by: Hydromorphone HCl (Dilaudid) 0.5 mg IVP Q6HR PRN PRN Reason: Pain Ampicillin Sodium/Sulbactam (Sodium 3 gm/ Sodium Chloride) 100 mls @ 200 mls/hr IVPB Q24HR [facility] Last Admin: 04/13/20 07:42 Dose: 200 mls/hr Documented by: Insulin Aspart (Novolog) 0 unit SQ ACHS [facility]; Protocol Last Admin: 04/13/20 21:00 Dose: 2 unit Documented by: Insulin Detemir (Levemir) 7 unit SQ DAILY [facility] Last Admin: 04/13/20 07:43 Dose: 7 unit Documented by: Lactic Acid (Ammonium Lactate) 1 applic TOPICAL BID PRN PRN Reason: Dry Skin Melatonin (Melatonin) 5 mg PO HS [facility] Last Admin: 04/13/20 21:00 Dose: 5 mg Documented by: Metolazone (Zaroxolyn) 2.5 mg PO Q48H [facility] Last Admin: 04/12/20 09:12 Dose: 2.5 mg Documented by: Metoprolol Tartrate (Lopressor) 25 mg PO BID [facility] Last Admin: 04/13/20 21:00 Dose: 25 mg Documented by: Midodrine (Proamatine) 10 mg PO AC-TID [facility] Last Admin: 04/13/20 16:52 Dose: 10 mg Documented by: Naloxone HCl (Narcan) 0.2 mg IV Q2M PRN PRN Reason: Opioid Reversal Non-Formulary Medication (Rosuvastatin) 10 mg PO DAILY [facility] Last Admin: 04/13/20 09:23 Dose: Not Given Documented by: Ondansetron HCl (Zofran) 4 mg PO TID PRN PRN Reason: Nausea Pantoprazole Sodium (Protonix) 40 mg PO AC-BRKFST [facility] Last Admin: 04/13/20 07:41 Dose: 40 mg Documented by: Objective - Vital Signs Vital signs: Vital Signs Temp 97.8 F 04/13/20 14:29 Pulse 85 04/13/20 14:29 Resp 16 04/13/20 14:29 BP 116/73 04/13/20 14:29 Pulse Ox 100 04/13/20 14:29 Intake & Output 04/12/20 04/13/20 04/13/20 18:59 06:59 18:59 Intake Total 250 540 Output Total 250 3700 Balance 0 -3160 Intake: Oral 250 540 Output: Urine 250 Hemodialysis 3700 Other: Voiding Method Indwelling Catheter Indwelling Catheter Indwelling Catheter # Voids 1 # Bowel Movements 2 - Exam Gen: lying in bed, awake, alert and oriented 3, well-developed, well-nourished. HEENT: Head is atraumatic, normocephalic. Pupils equal, round. Sclerae is anicteric. NECK: Supple. No JVD. No lymphadenopathy. No thyromegaly. LUNGS: Breath sounds diminished at the bases with a few scattered rhonchi noted. No intercostal retractions. HEART: Regular rate and rhythm. No murmur. ABDOMEN: Soft. Obese. Bowel sounds are present. No masses. No tenderness. EXTREMITIES: No calf tenderness. Bilateral lower extremity edema NEUROLOGICAL: Patient is awake, alert and oriented x3. generalized weakness. - Labs CBC & Chem 7: 04/13/20 08:24 04/13/20 08:24 Labs: Abnormal Lab Results - Last 24 Hours (Table) 0804/13/20 04/13/20 Range/Units 20:06 00:49 04:00 WBC (3.8-10.6) k/uL RBC (4.30-5.90) m/uL Hgb (13.0-17.5) gm/dL Hct (39.0-53.0) % MCHC (31.0-37.0) g/dL RDW (11.5-15.5) % Neutrophils # (1.3-7.7) k/uL Lymphocytes # (1.0-4.8) k/uL Sodium (137-145) mmol/L Potassium (3.5-5.1) mmol/L Chloride (98-107) mmol/L Carbon Dioxide (22-30) mmol/L BUN (9-20) mg/dL Creatinine (0.66-1.25) mg/dL Glucose (74-99) mg/dL POC Glucose (mg/dL) 162 H 148 H 150 H (75-99) mg/dL Calcium (8.4-10.2) mg/dL 04/13/20 04/13/20 04/13/20 Range/Units 07:21 08:24 08:24 WBC 12.9 H (3.8-10.6) k/uL RBC 4.14 L (4.30-5.90) m/uL Hgb 11.1 L (13.0-17.5) gm/dL Hct 38.0 L (39.0-53.0) % MCHC 29.2 L (31.0-37.0) g/dL RDW 17.0 H (11.5-15.5) % Neutrophils # 11.2 H (1.3-7.7) k/uL Lymphocytes # 0.3 L (1.0-4.8) k/uL Sodium 130 L (137-145) mmol/L Potassium 5.5 H (3.5-5.1) mmol/L Chloride 96 L (98-107) mmol/L Carbon Dioxide 21 L (22-30) mmol/L BUN 46 H (9-20) mg/dL Creatinine 3.78 H (0.66-1.25) mg/dL Glucose 188 H (74-99) mg/dL POC Glucose (mg/dL) 194 H (75-99) mg/dL Calcium 8.2 L (8.4-10.2) mg/dL 04/13/20 04/13/20 Range/Units 12:09 16:45 WBC (3.8-10.6) k/uL RBC (4.30-5.90) m/uL Hgb (13.0-17.5) gm/dL Hct (39.0-53.0) % MCHC (31.0-37.0) g/dL RDW (11.5-15.5) % Neutrophils # (1.3-7.7) k/uL Lymphocytes # (1.0-4.8) k/uL Sodium (137-145) mmol/L Potassium (3.5-5.1) mmol/L Chloride (98-107) mmol/L Carbon Dioxide (22-30) mmol/L BUN (9-20) mg/dL Creatinine (0.66-1.25) mg/dL Glucose (74-99) mg/dL POC Glucose (mg/dL) 152 H 235 H (75-99) mg/dL Calcium (8.4-10.2) mg/dL Microbiology - Last 24 Hours (Table) 04/08/20 14:20 Blood Culture - Preliminary Blood No Growth after 120 hours 04/10/20 14:07 Blood Culture - Preliminary Blood No Growth after 72 hours 04/11/20 12:30 Blood Culture - Preliminary Blood No Growth after 48 hours 04/09/20 05:48 Blood Culture - Preliminary Blood No Growth after 96 hours 04/10/20 16:00 Blood Culture - Preliminary Blood No Growth after 48 hours Assessment and Plan Assessment: ASSESSMENT Shortness of breath possibly multifactorial with congestive heart failure, acute exacerbation with acute on chronic systolic dysfunction, ejection fraction 45% with moderate mitral regurgitation, aortic stenosis Large right and moderate left pleural effusion Sepsis due to Group D enterococcus bacteremia, present on admission Chronic kidney disease end-stage renal disease on hemodialysis, Wednesday//Wednesday Increased white blood count Anemia, normocytic Rule out right lower lobe pneumonia hyponatremia Elevated AST, ALT Acute urinary tract infection, with possible sepsis, present on admission, urine and blood cultures showing enterococcus faecalis Atrial fibrillation chronic history of coronary artery disease History of congestive heart failure Diabetes mellitus type 2 Gastroesophageal reflux disease Hypertension Hyperlipidemia Myocardial infarction history of degenerative joint disease History of bilateral lower extremity cellulitis, ulcers with Klebsiella, Pseudomonas History of diabetes, uncontrolled History of pleural effusion with right side thoracentesis History of paroxysmal atrial flutter Peripheral vascular disease History of benign prostatic hypertrophy History of coronary artery disease, CABG history of urinary retention History of coronary artery disease, stent Obesity with a body mass index of 31 Full code PLAN: Recommend continue current medications, management, and symptomatic treatment. Patient is maintained on IV antibiotics in the form of Unasyn and will continue at this time. Infectious disease following. blood cultures showing enterococcus faecalis with urine culture finalized showing enterococcus faecalis, enterobacte amnigenus biogrp 2, and [place]ma[place] albicans. Repeat blood cu ltures from 04/10 And 04/11 Showing no growth for 24 hours. Nephrology following as well and patient is currently receiving hemodialysis on his Wednesday// Wednesday schedule. Patient is receiving daily dialysis with ultrafiltration of about 3 L removed today and is currently maintained on IV Lasix at 80 mg BID . Due to multiple complex medical issues, prognosis is guarded. Case management and social work following as patient may need SNF placement once stabilized and discharged if IV antibiotic therapy is necessary. Current [facility] home working on possibility of accommodating IV antibiotic therapy with the infusion center. Further recommendations to follow.
[2020-04-14] MEDS: HYDROcodone/APAP 5-325MG 1 EACH TAB PO PRN (05:30)
[2020-04-14 07:09] LABS: Glucose,Whole Blood 114 mg/dL (75-99)
[2020-04-14] MEDS: PANTOPRAZOLE 40 MG TABLET PO SCH (08:38)
[2020-04-14] MEDS: FERROUS SULFATE 325 MG TAB PO SCH (08:39)
[2020-04-14] MEDS: AMPICILLIN-SULBACTAM 3 GM in SODIUM CHLORIDE 0.9% 100 ML IVPB SCH (08:39)
[2020-04-14] MEDS: CALCIUM ACETATE 667 MG TAB PO SCH ×3 (08:39→17:04)
[2020-04-14] MEDS: ASCORBIC ACID 500 MG TAB PO SCH ×2 (08:39→17:04)
[2020-04-14] MEDS: METOPROLOL TARTRATE 25 MG TAB PO SCH ×2 (08:39→20:57)
[2020-04-14] MEDS: FUROSEMIDE 80 MG TAB PO SCH ×2 (08:39→17:04)
[2020-04-14] MEDS: APIXABAN 2.5 MG TABLET PO SCH ×2 (08:39→20:58)
[2020-04-14] MEDS: FINASTERIDE 5 MG TAB PO SCH (08:39)
[2020-04-14] MEDS: metOLazone 2.5 MG TAB PO SCH (08:39)
[2020-04-14] MEDS: CALCIUM CARBONATE 500 MG CHEWABLE PO SCH ×2 (08:41→20:57)
[2020-04-14] MEDS: INSULIN DETEMIR (LEVEMIR) 100 UNIT/ML SYR SQ SCH (08:45)
[2020-04-14] MEDS: INSULIN ASPART (NovoLOG) 100 UNIT/ML VIAL SQ SCH ×4 (08:47→20:58)
[2020-04-14] MEDS: MIDODRINE 5 MG TAB PO SCH ×3 (08:47→16:19)
[2020-04-14] MEDS: NON FORMULARY DRUG (Rosuvastatin 10 MG) PO SCH (09:19)
[2020-04-14] MEDS: IPRATROPIUM-ALBUTEROL 3 ML NEB INHALATION SCH ×3 (09:41→19:02)
--- NOTE | 2020-04-14 10:10 | P.PN ---
Subjective Patient is seen in follow for end-stage renal disease. He is maintained on hemodialysis on Wednesday schedule. Currently being treated for enterococcus bacteremia and UTI. Tolerating dialysis well. Denies chest pain or shortness of breath. Still quite edematous. Vital signs are stable. General: The patient appeared well nourished and normally developed. HEENT: Head exam is unremarkable. Neck is without jugular venous distension. LUNGS: Breath sounds decreased. HEART: Rate and Rhythm are regular. ABDOMEN: Soft, nontender. EXTREMITITES: 2+ edema. Objective - Vital Signs Vital signs: Vital Signs Temp 98.6 F 04/14/20 07:03 Pulse 80 04/14/20 09:51 Resp 16 04/14/20 07:03 BP 112/70 04/14/20 07:03 Pulse Ox 92 L 04/14/20 07:03 Intake & Output 04/13/20 04/14/20 04/14/20 18:59 06:59 18:59 Intake Total 540 100 Output Total 3700 125 Balance -3160 -25 Intake: Oral 540 100 Output: Urine 125 Hemodialysis 3700 Other: Voiding Method Indwelling Catheter Indwelling Catheter Indwelling Catheter # Voids 7 - Labs CBC & Chem 7: 04/13/20 08:24 04/13/20 08:24 Labs: Abnormal Lab Results - Last 24 Hours (Table) 04/13/20 04/13/20 04/13/20 Range/Units 12:09 16:45 20:53 POC Glucose (mg/dL) 152 H 235 H 180 H (75-99) mg/dL 04/14/20 Range/Units 07:01 POC Glucose (mg/dL) 114 H (75-99) mg/dL Microbiology - Last 24 Hours (Table) 04/09/20 05:48 Blood Culture - Preliminary Blood No Growth after 120 hours 04/10/20 16:00 Blood Culture - Preliminary Blood No Growth after 72 hours 04/08/20 14:20 Blood Culture - Preliminary Blood No Growth after 120 hours 04/10/20 14:07 Blood Culture - Preliminary Blood No Growth after 72 hours 04/11/20 12:30 Blood Culture - Preliminary Blood No Growth after 48 hours Assessment and Plan Plan: Assessment: 1. End-stage renal disease maintained on hemodialysis on Wednesday schedule. 2. Enterococcus facialis bacteremia maintained on antibiotics. Infectious disease following. 3. Volume overload. 4. Hyponatremia secondary to chronic kidney disease. Hypervolemic. 5. Chronic kidney disease mineral bone disease maintained on PhosLo. 6. Chronic hypotension maintained on midodrine. Plan: Plan for extra hemodialysis treatment tomorrow mostly for ultrafiltration. Maintain oral Lasix 80 mg twice daily.
[2020-04-14 11:53] LABS: Glucose,Whole Blood 230 mg/dL (75-99)
--- NOTE | 2020-04-14 12:08 | P.PN ---
Subjective Progress Note Date: 04/14/20 Principal diagnosis: Hypotension, urinary tract infection with sepsis 80-year-old male patient got transferred from dialysis center as the patient's blood pressure was running low and he was unable to tolerate the the treatment. Dialysis was cut short by around 2 hours according to him. He is known to me. He is known to have extensive comorbidities including coronary artery disease, previous bypass surgery, CHF with ejection fraction 45%, mild aortic stenosis, hypertension and hyperlipidemia and the patient has chronic kidney disease and has been started on hemodialysis few months back via a temporary dialysis catheter in his right IJ. He also has history of diabetes mellitus, paroxysmal atrial flutter/fibrillation, peripheral vascular disease, BPH, and a chronic r ight-sided pleural effusion that was drained in the past where a total of 900 mL of fluid was aspirated from the right lung and the fluid turn laster to be a transudate consistent with CHF. In any rate, the patient does have a Torres catheter. The urine output is quite and there is a suspicion for now underlying urine checked infection as the patient has more than 182 white cells and his urine analysis. Cultures still pending for now. The chest x-ray findings are essentially stable. The patient is stable cardiomegaly and stable loculated right-sided pleural effusion without evidence of any pneumothorax. No reported cough. No reported sputum production. The patient is covered empirically with IV Zosyn for now. He is afebrile. Most recent blood pressure is 97 with 54 with a room air pulse ox of 97%. His breathing is nonlabored. On 04/09/2020 patient seen on the selective care unit, his having a dialysis treatment right now, he states his breathing is comfortable, does not appear to be in any acute distress. On 2 L of oxygen and pulse ox 96%, he is afebrile, hemodynamically he is stable. Urine culture came back positive for group D enterococcus, Enterobacter amnigenus biogroup, and group D enterococcus bacteremia, and currently patient is on vancomycin per ID service recom mendations, initially was covered with Zosyn. Patient continues on IV Lasix at 40 mg every 8 hours. Lung sounds are clear diminished at the bases, no significant rhonchi or wheezing, no cough or congestion. No couplets or chest pain. The patient was seen today 04/10/2020 in follow-up on the selective care unit. He is currently resting comfortably in bed. Awake and alert in no acute distress. Denies any worsening shortness of breath, cough or congestion. He did receive hemodialysis yesterday with 2.5 L of fluid removed. Follow-up blood cultures are positive for group D enterococcus with initial cultures positive for Enterococcus faecalis. Urine culture positive for Enterococcus faecalis. He is currently on vancomycin. Remains on bronchodilators and IV diuretics. Patient is seen today 04/12/2020 in follow-up on the regular medical floor. He is currently up in a chair at the bedside. Awake and alert in no acute distress. Chest x-ray continues to show diffuse bilateral airspace disease and bilateral pleural effusions and pulmonary edema. He is due for hemodialysis today with ultrafiltration of about 2 L of possible. He remains on IV diuretics. Follow-up blood cultures were still positive for Enterococcus faecalis. White count 13.4. Hemoglobin 10.6. Sodium 133. Potassium 4.4. Creatinine 3.3. Remains on Unasyn. Patient is seen today 04/13/2020 in follow-up on the regular medical floor. He is awake and alert in no acute distress. Resting in bed. Currently receiving hemodialysis. He did have altered filtration yesterday with 2 L removed. The goal is for 4 L today. He is maintaining O2 saturation in the 90s on 2 L/m per nasal cannula. Been afebrile. Blood cultures positive for Enterococcus faecalis. Follow-up cultures pending. White count 12.9. Hemoglobin 11.1. Sodium 1:30. Potassium 5.5. Creatinine 3.78. He is currently on Unasyn. Con verted to oral Lasix. The patient is seen today 04/14/2020 in follow-up on the regular medical floor. He is currently resting comfortably in bed. Able to place lap. No worsening shortness of breath, cough or congestion. He is maintaining O2 saturations in the 90s on 2 L/m per nasal cannula. He is afebrile. Hemodynamically stable. Follow-up blood cultures revealed no growth. Blood glucose is 230. He is continued on Unasyn, bronchodilators. Anticoagulated with Eliquis. Objective - Vital Signs Vital signs: Vital Signs Temp 98.6 F 04/14/20 07:03 Pulse 80 04/14/20 09:51 Resp 16 04/14/20 07:03 BP 112/70 04/14/20 07:03 Pulse Ox 92 L 04/14/20 07:03 Intake & Output 04/13/20 04/14/20 04/14/20 18:59 06:59 18:59 Intake Total 540 100 Output Total 3700 125 Balance -3160 -25 Intake: Oral 540 100 Output: Urine 125 Hemodialysis 3700 Other: Voiding Method Indwelling Catheter Indwelling Catheter Indwelling Catheter # Voids 7 - Exam GENERAL EXAM: Alert, very pleasant, 80-year-old male patient, on 2 L of oxygen the pulse ox of 92%, up in a chair at the bedside, comfortable in no apparent distress. HEAD: Normocephalic/atraumatic. EYES: Normal reaction of pupils, equal size. Conjunctiva pink, sclera white. NOSE: Clear with pink turbinates. THROAT: No erythema or exudates. NECK: No masses, no JVD, no thyroid enlargement, no adenopathy. Right IJ dialysis catheter CHEST: No chest wall deformity. Symmetrical expansion. LUNGS: Equal air entry with bibasilar crackles right greater than left. CVS: Regular rate and rhythm, normal S1 and S2, no gallops, no murmurs, no rubs ABDOMEN: Soft, nontender. No hepatosplenomegaly, normal bowel sounds, no guarding or rigidity. EXTREMITIES: No clubbing, mild pretibial edema, no cyanosis, 2+ pulses and upper and lower extremities. MUSCULOSKELETAL: Muscle strength and tone normal. SPINE: No scoliosis or deformity SKIN: No rashes CENTRAL NERVOUS SYSTEM: No focal deficits, tone is normal in all 4 extremities. PSYCHIATRIC: Alert and oriented -3. Appropriate affect. Intact judgment and insight. - Labs CBC & Chem 7: 04/13/20 08:24 04/13/20 08:24 Labs: Abnormal Lab Results - Last 24 Hours (Table) 04/13/20 04/13/20 04/13/20 Range/Units 12:09 16:45 20:53 POC Glucose (mg/dL) 152 H 235 H 180 H (75-99) mg/dL 04/14/20 04/14/20 Range/Units 07:01 11:51 POC Glucose (mg/dL) 114 H 230 H (75-99) mg/dL Microbiology - Last 24 Hours (Table) 04/09/20 05:48 Blood Culture - Preliminary Blood No Growth after 120 hours 04/10/20 16:00 Blood Culture - Preliminary Blood No Growth after 72 hours 04/08/20 14:20 Blood Culture - Preliminary Blood No Growth after 120 hours 04/10/20 14:07 Blood Culture - Preliminary Blood No Growth after 72 hours 04/11/20 12:30 Blood Culture - Preliminary Blood No Growth after 48 hours Assessment and Plan Assessment: 1 hypotension currently under investigation related to enterococcus bacteremia related to urinary tract infection with urine cultures positive for enterococcus faecalis, currently on Unasyn, final urine culture and blood culture both positive for Enterococcus faecalis 2 End stage renal disease currently on hemodialysis. The patient has done dialysis for the past 2 month 3 small bilateral pleural effusions, and the patient has had a loculated right- sided pleural effusion and a previous drainage of the right lung yielded into a non-cc of pleural fluid that was a transudate. 4 CHF with ejection fraction 45% and mild aortic stenosis and moderate mitral regurgitation. Echocardiac Richard is to be repeated. The patient has mild systolic heart failure 5 chronic atrial fibrillation maintained on Eliquis on outpatient basis 6 diabetes mellitus 7 hypertension 8 hyperlipidemia 9 coronary artery disease with previous bypass surgery that was performed in December 2018 10 history of iron deficiency anemia with a positive occult blood in the stool 11 anemia of chronic disease 12 generalized weakness and fatigue with a marginally low blood pressure Plan: The patient was seen and evaluated by Dr. Jacob Currently stable from the pulmonary standpoint Continue the current treatment plan We'll continue to follow I, the cosigning physician, performed a history & physical examination of the patient. Lungs sounds with crackles in the bilateral posterior bases, right greater than left. Maintaining good O2 saturations in the 90s on 2 L/m per nasal cannula. I discussed the assessment and plan of care with my nurse practitioner, Page Cervantes. I attest to the above note as dictated by her.
--- NOTE | 2020-04-14 13:49 | P.PN ---
Subjective Progress Note Date: 04/14/20 Principal diagnosis: Sepsis secondary to UTI Mr. Brice is a 80-year-old male with multiple chronic medical conditions including CAD status post CABG, CHF with EF of 45%, mild aortic stenosis, hypertension, hyperlipidemia, CKD on hemodialysis sent in from dialysis center as his blood pressure was running low and he was unable to tolerate his dialysis. Eventually patient was found to have blood cultures growing group D enterococcus, that go along with urine culture. So currently he is on Unasyn. Patient also had CT of the chest abdomen and pelvis showing large right and moderate left sided pleural effusion. He also had small volume ascites and also delayed esophageal emptying. Multiple consultants including pulmonary, cardiology, nephrology, ID following the patient closely. Patient also had echocardiogram done showing ejection fraction of 40 to 45% with inferior wall hypokinesis. This morning patient is awake and alert resting comfortably in bed. Patient had dialysis done with almost 3 L of fluid taken today. Blood cultures have been positive for Enterococcus faecalis and patient has been afebrile for the past 24 hours. On reviewing the labs his white count is 12.9, hemoglobin stable at around 11, sodium 130, potassium 5.5, chloride 96, bicarb 21, BUN 46, creatinine 3.78. Patient's Lasix has been changed to 80 mg twice daily by nephrology today. on 04/14/2020- patient is comfortably lying in bed appears to be no acute dist ress. No acute events reported by nursing staff. Patient states that his difficulty in breathing is better. History of leg weakness is improved. Patient denies having any fevers chills or rigors overnight. No chest pain or palpitations. No abdominal pain nausea vomiting or diarrhea. Patient states that his last bowel movement was couple of days back. And that he took Colace this morning.on reviewing the patient's vitals temperature 98.6, heart rate 81, blood pressure 112/70, saturating at 92% on 2 L of nasal cannula.patient does not have any new labs done from this morning. His last him yesterday showing creatinine of 3.78, potassium of 5.5. Nephrology on board in managing his dial ysis. Active Medications Acetaminophen (Tylenol Tab) 500 mg PO Q6HR PRN PRN Reason: Fever and/ or Pain Last Admin: 04/11/20 09:53 Dose: 500 mg Documented by: Hydrocodone Bitart/Acetaminophen ([place] 5-325) 1 each PO Q4HR PRN PRN Reason: Pain Last Admin: 04/14/20 05:30 Dose: 1 each Documented by: Albuterol/Ipratropium (Duoneb 0.5 Mg-3 Mg/3 Ml Soln) 3 ml INHALATION RT-TID [facility] Last Admin: 04/14/20 12:47 Dose: 3 ml Documented by: Albuterol/Ipratropium (Duoneb 0.5 Mg-3 Mg/3 Ml Soln) 3 ml INHALATION RT-TID PRN PRN Reason: Shortness Of Breath Or Wheezing Apixaban (Eliquis) 2.5 mg PO BID [facility] Last Admin: 04/14/20 08:39 Dose: 2.5 mg Documented by: Ascorbic Acid (Vitamin C) 500 mg PO BID-W/MEALS [facility] Last Admin: 04/14/20 08:39 Dose: 500 mg Documented by: Bacitracin (Bacitracin Zinc Oint) 1 applic TOPICAL BID PRN PRN Reason: INFECTION Calcium Acetate (Phoslo) 667 mg PO TID-W/MEALS [facility] Last Admin: 04/14/20 12:17 Dose: 667 mg Documented by: Calcium Carbonate/Glycine (Tums) 1,000 mg PO BID [facility] Last Admin: 04/14/20 08:41 Dose: 1,000 mg Documented by: Docusate Sodium (Colace) 100 mg PO DAILY PRN PRN Reason: Constipation Last Admin: 04/14/20 05:30 Dose: 100 mg Documented by: Ergocalciferol (Vitamin D2) 50,000 unit PO Q72H [facility] Last Admin: 04/12/20 09:12 Dose: 50,000 unit Documented by: Ferrous Sulfate (Feosol) 325 mg PO DAILY [facility] Last Admin: 04/14/20 08:39 Dose: 325 mg Documented by: Finasteride (Proscar) 5 mg PO DAILY [facility] Last Admin: 04/14/20 08:39 Dose: 5 mg Documented by: Furosemide (Lasix) 80 mg PO BID@0900,1600 [facility] Last Admin: 04/14/20 08:39 Dose: 80 mg Documented by: Hydromorphone HCl (Dilaudid) 0.5 mg IVP Q6HR PRN PRN Reason: Pain Ampicillin Sodium/Sulbactam (Sodium 3 gm/ Sodium Chloride) 100 mls @ 200 mls/hr IVPB Q24HR [facility] Last Admin: 04/14/20 08:39 Dose: 200 mls/hr Documented by: Insulin Aspart (Novolog) 0 unit SQ ACHS [facility]; Protocol Last Admin: 04/14/20 12:18 Dose: 3 unit Documented by: Insulin Detemir (Levemir) 7 unit SQ DAILY [facility] Last Admin: 04/14/20 08:45 Dose: 7 unit Documented by: Lactic Acid (Ammonium Lactate) 1 applic TOPICAL BID PRN PRN Reason: Dry Skin Melatonin (Melatonin) 5 mg PO HS [facility] Last Admin: 04/13/20 21:00 Dose: 5 mg Documented by: Metolazone (Zaroxolyn) 2.5 mg PO Q48H [facility] Last Admin: 04/14/20 08:39 Dose: 2.5 mg Documented by: Metoprolol Tartrate (Lopressor) 25 mg PO BID [facility] Last Admin: 04/14/20 08:39 Dose: 25 mg Documented by: Midodrine (Proamatine) 10 mg PO AC-TID [facility] Last Admin: 04/14/20 12:12 Dose: Not Given Documented by: Naloxone HCl (Narcan) 0.2 mg IV Q2M PRN PRN Reason: Opioid Reversal Non-Formulary Medication (Rosuvastatin) 10 mg PO DAILY [facility] Last Admin: 04/14/20 09:19 Dose: Not Given Documented by: Ondansetron HCl (Zofran) 4 mg PO TID PRN PRN Reason: Nausea Pantoprazole Sodium (Protonix) 40 mg PO AC-BRKFST [facility] Last Admin: 04/14/20 08:38 Dose: 40 mg Documented by: Objective - Vital Signs Vital signs: Vital Signs Temp 98.6 F 04/14/20 07:03 Pulse 82 04/14/20 12:58 Resp 16 04/14/20 07:03 BP 112/70 04/14/20 07:03 Pulse Ox 92 L 04/14/20 07:03 Intake & Output 04/13/20 04/14/20 04/14/20 18:59 06:59 18:59 Intake Total 540 100 Output Total 3700 125 Balance -3160 -25 Weight 86 kg Intake: Oral 540 100 Output: Urine 125 Hemodialysis 3700 Other: Voiding Method Indwelling Catheter Indwelling Catheter Indwelling Catheter # Voids 7 - Exam PHYSICAL EXAM Gen: lying in bed, awake, alert and oriented 3, well-developed, well-nourished. HEENT: Head is atraumatic, normocephalic. Pupils equal, round. Sclerae is anicteric. NECK: Supple. No JVD. No lymphadenopathy. No thyromegaly. LUNGS: Breath sounds diminished at the bases with a few scattered rhonchi noted. No intercostal retractions. HEART: Regular rate and rhythm. No murmur. ABDOMEN: Soft. Obese. Bowel sounds are present. No masses. No tenderness. EXTREMITIES: No calf tenderness. Bilateral lower extremity edema NEUROLOGICAL: Patient is awake, alert and oriented x3. generalized weakness. - Labs CBC & Chem 7: 04/13/20 08:24 04/13/20 08:24 Labs: Abnormal Lab Results - Last 24 Hours (Table) 04/13/20 04/13/20 04/14/20 Range/Units 16:45 20:53 07:01 POC Glucose (mg/dL) 235 H 180 H 114 H (75-99) mg/dL 04/14/20 Range/Units 11:51 POC Glucose (mg/dL) 230 H (75-99) mg/dL Microbiology - Last 24 Hours (Table) 04/09/20 05:48 Blood Culture - Preliminary Blood No Growth after 120 hours 04/10/20 16:00 Blood Culture - Preliminary Blood No Growth after 72 hours 04/08/20 14:20 Blood Culture - Preliminary Blood No Growth after 120 hours 04/10/20 14:07 Blood Culture - Preliminary Blood No Growth after 72 hours 04/11/20 12:30 Blood Culture - Preliminary Blood No Growth after 48 hours Assessment and Plan Assessment: ASSESSMENT Shortness of breath possibly multifactorial with congestive heart failure, acute exacerbation with acute on chronic systolic dysfunction, ejection fraction 45% with moderate mitral regurgitation, aortic stenosis Large right and moderate left pleural effusion Sepsis due to Group D enterococcus bacteremia, present on admission Chronic kidney disease end-stage renal disease on hemodialysis, Wednesday/ /Wednesday Increased white blood count Anemia, normocytic Rule out right lower lobe pneumonia hyponatremia Elevated AST, ALT Acute urinary tract infection, with possible sepsis, present on admission, urine and blood cultures showing enterococcus faecalis Atrial fibrillation chronic history of coronary artery disease History of congestive heart failure Diabetes mellitus type 2 Gastroesophageal reflux disease Hypertension Hyperlipidemia Myocardial infarction history of degenerative joint disease History of bilateral lower extremity cellulitis, ulcers with Klebsiella, Pseudomonas History of diabetes, uncontrolled History of pleural effusion with right side thoracentesis History of paroxysmal atrial flutter Peripheral vascular disease History of benign prostatic hypertrophy History of coronary artery disease, CABG history of urinary retention History of coronary artery disease, stent Obesity with a body mass index of 31 Full code PLAN: Recommend continue current medications, management, and symptomatic treatment. Patient is maintained on IV antibiotics in the form of Unasyn and will continue at this time. Infectious disease following. blood cultures showing enterococcus faecalis with urine culture finalized showing enterococcus faecalis, enterobacte amnigenus biogrp 2, and Omaira albicans. Repeat blood cultures from 04/10 And 04/11 Showing no growth for 24 hours. Nephrology following as well and patient is currently receiving hemodialysis on his Wednesday// Wednesday schedule. he is also getting an extra session of dialysis done today. Due to multiple complex medical issues, prognosis is guarded. Case management and social work following as patient may need SNF placement once stabilized and discharged if IV antibiotic therapy is necessary. Current AF home working on possibility of accommodating IV antibiotic therapy with the infusion center. Further recommendations to follow.
[2020-04-14 16:42] LABS: Glucose,Whole Blood 144 mg/dL (75-99)
[2020-04-14 20:46] LABS: Glucose,Whole Blood 147 mg/dL (75-99)
[2020-04-14] MEDS: MELATONIN 5 MG TABLET PO SCH (20:57)
--- NOTE | 2020-04-15 00:32 | PN ---
PROGRESS NOTE DATE OF SERVICE: 04/14/2020. REASON FOR FOLLOWUP: Enterococcus faecalis bacteremia, UTI. INTERVAL HISTORY: The patient is currently afebrile. Patient has been breathing comfortably. The patient denies having any chest pain or shortness of breath or cough. No abdominal pain or diarrhea. PHYSICAL EXAMINATION: Blood pressure 103/66, pulse of 83, temperature 98.2. He is 98% on 2 L nasal cannula. General description is an elderly male up in the chair in no distress. RESPIRATORY SYSTEM: Unlabored breathing with decreased breath sounds at the bases. No wheeze. HEART: S1, S2. Regular rate and rhythm. ABDOMEN: Soft, no tenderness. LABS: No new labs have been obtained today. Blood cultures on 04/10 and 04/11 have been negative. DIAGNOSTIC IMPRESSION AND PLAN: Patient with Enterococcus faecalis bacteremia, source is likely catheter associated urinary tract infection. Repeat blood cultures got negative very quickly, making it to be less likely endovascular source. Recommending finish therapy with vancomycin which could be done through the dialysis for 2 weeks and then repeating blood cultures after he is done with vancomycin to make sure no evidence of any recurrence of bacteremia which is negative will not need any further workup. However, if positive, need further workup. This has been explained in detail to the patient. MMODL / IJN: [id number] /
[2020-04-15 01:12] LABS: Glucose,Whole Blood 104 mg/dL (75-99)
[2020-04-15 06:52] LABS: Glucose,Whole Blood 252 mg/dL (75-99)
[2020-04-15] MEDS: AMPICILLIN-SULBACTAM 3 GM in SODIUM CHLORIDE 0.9% 100 ML IVPB SCH (07:20)
[2020-04-15] MEDS: ASCORBIC ACID 500 MG TAB PO SCH ×2 (07:21→16:53)
[2020-04-15] MEDS: METOPROLOL TARTRATE 25 MG TAB PO SCH ×2 (07:21→21:27)
[2020-04-15] MEDS: CALCIUM ACETATE 667 MG TAB PO SCH ×3 (07:21→16:52)
[2020-04-15] MEDS: APIXABAN 2.5 MG TABLET PO SCH ×2 (07:21→21:27)
[2020-04-15] MEDS: PANTOPRAZOLE 40 MG TABLET PO SCH (07:21)
[2020-04-15] MEDS: MIDODRINE 5 MG TAB PO SCH ×3 (07:21→16:53)
[2020-04-15] MEDS: CALCIUM CARBONATE 500 MG CHEWABLE PO SCH ×2 (07:21→21:27)
[2020-04-15] MEDS: FINASTERIDE 5 MG TAB PO SCH (07:21)
[2020-04-15] MEDS: INSULIN DETEMIR (LEVEMIR) 100 UNIT/ML SYR SQ SCH (07:21)
[2020-04-15] MEDS: FUROSEMIDE 80 MG TAB PO SCH ×2 (07:22→16:53)
[2020-04-15] MEDS: ERGOCALCIFEROL 50,000 UNIT CAP PO SCH (07:22)
[2020-04-15] MEDS: INSULIN ASPART (NovoLOG) 100 UNIT/ML VIAL SQ SCH ×4 (07:23→21:08)
[2020-04-15] MEDS: FERROUS SULFATE 325 MG TAB PO SCH (07:23)
[2020-04-15] MEDS: NON FORMULARY DRUG (Rosuvastatin 10 MG) PO SCH (07:24)
[2020-04-15] MEDS: IPRATROPIUM-ALBUTEROL 3 ML NEB INHALATION SCH ×3 (07:34→20:22)
[2020-04-15 08:21] LABS: Calcium 8.3 mg/dL (8.4-10.2); Potassium 5.2 mmol/L (3.5-5.1)
[2020-04-15 08:52] LABS: Anisocytosis Slight; Basophils % (A) 0 %; Eosinophils # (A) 0.2 k/uL (0-0.7); Eosinophils % (A) 1 %; HCT 36.3 % (39.0-53.0); HGB 11.4 gm/dL (13.0-17.5); Hypochromasia Marked; Lymphocytes # (A) 0.4 k/uL (1.0-4.8); Lymphocytes % (A) 3 %; MCH 27.3 pg (25.0-35.0); MCHC 31.4 g/dL (31.0-37.0); MCV 86.9 fL (80.0-100.0); Monocytes # (A) 0.7 k/uL (0-1.0); Monocytes % (A) 5 %; Neutrophils # (A) 11.8 k/uL (1.3-7.7); Neutrophils % (A) 89 %; Platelet Count 248 k/uL (150-450); RBC 4.18 m/uL (4.30-5.90); RDW 16.6 % (11.5-15.5); WBC 13.3 k/uL (3.8-10.6)
[2020-04-15 11:44] LABS: Glucose,Whole Blood 138 mg/dL (75-99)
--- NOTE | 2020-04-15 12:26 | P.PN ---
Subjective Patient is seen in follow for end-stage renal disease. He is maintained on hemodialysis on Wednesday schedule. Currently being treated for enterococcus bacteremia and UTI. Denies chest pain or shortness of breath but states gets out of breath without oxygen support. Still quite edematous. Vital signs are stable. General: The patient appeared well nourished and normally developed. HEENT: Head exam is unremarkable. Neck is without jugular venous distension. LUNGS: Breath sounds decreased. HEART: Rate and Rhythm are regular. ABDOMEN: Soft, nontender. EXTREMITITES: 2+ edema. Objective - Vital Signs Vital signs: Vital Signs Temp 98.1 F 04/15/20 07:09 Pulse 76 04/15/20 11:15 Resp 16 04/15/20 07:09 BP 127/79 04/15/20 07:09 Pulse Ox 97 04/15/20 07:09 Intake & Output 04/14/20 04/15/20 04/15/20 18:59 06:59 18:59 Intake Total 540 280 Output Total 150 100 Balance 390 180 Weight 86 kg Intake: Oral 540 280 Output: Urine 150 100 Other: Voiding Method Indwelling Catheter Indwelling Catheter Indwelling Catheter - Labs CBC & Chem 7: 04/15/20 07:35 04/15/20 07:35 Labs: Abnormal Lab Results - Last 24 Hours (Table) 04/14/20 04/14/20 04/15/20 Range/Units 16:39 20:42 01:11 WBC (3.8-10.6) k/uL RBC (4.30-5.90) m/uL Hgb (13.0-17.5) gm/dL Hct (39.0-53.0) % RDW (11.5-15.5) % Neutrophils # (1.3-7.7) k/uL Lymphocytes # (1.0-4.8) k/uL Sodium (137-145) mmol/L Potassium (3.5-5.1) mmol/L BUN (9-20) mg/dL Creatinine (0.66-1.25) mg/dL Glucose (74-99) mg/dL POC Glucose (mg/dL) 144 H 147 H 104 H (75-99) mg/dL Calcium (8.4-10.2) mg/dL 04/15/20 04/15/2020 Range/Units 06:50 07:35 07:35 WBC 13.3 H (3.8-10.6) k/uL RBC 4.18 L (4.30-5.90) m/uL Hgb 11.4 L (13.0-17.5) gm/dL Hct 36.3 L (39.0-53.0) % RDW 16.6 H (11.5-15.5) % Neutrophils # 11.8 H (1.3-7.7) k/uL Lymphocytes # 0.4 L (1.0-4.8) k/uL Sodium 131 L (137-145) mmol/L Potassium 5.2 H (3.5-5.1) mmol/L BUN 57 H (9-20) mg/dL Creatinine 4.30 H (0.66-1.25) mg/dL Glucose 159 H (74-99) mg/dL POC Glucose (mg/dL) 252 H (75-99) mg/dL Calcium 8.3 L (8.4-10.2) mg/dL 04/15/20 Range/Units 11:42 WBC (3.8-10.6) k/uL RBC (4.30-5.90) m/uL Hgb (13.0-17.5) gm/dL Hct (39.0-53.0) % RDW (11.5-15.5) % Neutrophils # (1.3-7.7) k/uL Lymphocytes # (1.0-4.8) k/uL Sodium (137-145) mmol/L Potassium (3.5-5.1) mmol/L BUN (9-20) mg/dL Creatinine (0.66-1.25) mg/dL Glucose (74-99) mg/dL POC Glucose (mg/dL) 138 H (75-99) mg/dL Calcium (8.4-10.2) mg/dL Microbiology - Last 24 Hours (Table) 04/09/20 05:48 Blood Culture - Final Blood No Growth after 144 hours 04/10/20 16:00 Blood Culture - Preliminary Blood No Growth after 96 hours 04/08/20 14:20 Blood Culture - Final Blood No Growth after 144 hours 04/10/20 14:07 Blood Culture - Preliminary Blood No Growth after 96 hours 04/11/20 12:30 Blood Culture - Preliminary Blood No Growth after 72 hours Assessment and Plan Plan: Assessment: 1. End-stage renal disease maintained on hemodialysis on Wednesday schedule. 2. Enterococcus facialis bacteremia maintained on antibiotics. Infectious disease following. 3. Volume overload. 4. Hyponatremia secondary to chronic kidney disease. Hypervolemic. 5. Chronic kidney disease mineral bone disease maintained on PhosLo. 6. Chronic hypotension maintained on midodrine. Plan: Short hemodialysis treatment today mostly for ultrafiltration. Another treatment tomorrow per his outpatient schedule. Maintain oral Lasix 80 mg twice daily.
--- NOTE | 2020-04-15 13:17 | P.DS ---
Providers Date of admission: 04/07/20 13:21 Expected date of discharge: 04/15/20 Attending physician: Kala Laboy Consults: 04/07/20 13:23 Consult Physician Stat Consulting Provider: Pam Lewis Consult Reason/Comments: ERSD on hemodialysis Do you want consulting provider notified?: Yes 04/07/20 17:55 Consult Physician Routine Consulting Provider: Geo Epps Consult Reason/Comments: chf Do you want consulting provider notified?: Yes Consult Physician Routine Consulting Provider: Michael Bull Consult Reason/Comments: pl effusion Do you want consulting provider notified?: Yes 04/08/20 13:54 Consult Physician Stat Consulting Provider: Luc Cordero Consult Reason/Comments: positive blood cultures/enterococcus/ESRD Do you want consulting provider notified?: Yes Primary care physician: [facility] Course: Mr. Brice is a 80-year-old male with multiple chronic medical conditions including CAD status post CABG, CHF with EF of 45%, mild aortic stenosis, hypertension, hyperlipidemia, CKD on hemodialysis sent in from dialysis center as his blood pressure was running low and he was unable to tolerate his dialysis. Eventually patient was found to have blood cultures growing group D enterococcus, that go along with urine culture. Patient also had CT of the chest abdomen and pelvis showing large right and moderate left sided pleural effusion. He also had small volume ascites and also delayed esophageal emptying. Multiple consultants including pulmonary, cardiology, nephrology, ID following followed the patient closely. Patient also had echocardiogram done showing ejection fraction of 40 to 45% with inferior wall hypokinesis. Patient received multiple rounds of dialysis after which his symptoms improved significantly. He was also started on midodrine to maintain his blood pressures. Eventually ID Dr. Cordero and recommended for him to complete a two- week course of vancomycin which could be given with his dialysis. The patient is cleared by all the consultants for discharge today. He is being sent to [facility]. Vital Signs 04/15/20 04/15/20 04/15/20 07:09 07:34 07:43 Temperature 98.1 F Pulse Rate 70 72 Pulse Rate [ 79 Pulse Oximetery ] Respiratory 16 Rate Blood Pressure 127/79 [Right Arm] O2 Sat by Pulse 97 Oximetry 04/15/20 04/15/20 11:03 11:15 Temperature Pulse Rate 74 76 Pulse Rate [ Pulse Oximetery ] Respiratory Rate Blood Pressure [Right Arm] O2 Sat by Pulse Oximetry PHYSICAL EXAM Gen: lying in bed, awake, alert and oriented 3, well-developed, well-nourished. HEENT: Head is atraumatic, normocephalic. Pupils equal, round. Sclerae is anicteric. NECK: Supple. No JVD. No lymphadenopathy. No thyromegaly. LUNGS: Breath sounds diminished at the bases with a few scattered rhonchi noted. No intercostal retractions. HEART: Regular rate and rhythm. No murmur. ABDOMEN: Soft. Obese. Bowel sounds are present. No masses. No tenderness. EXTREMITIES: No calf tenderness. Bilateral lower extremity edema NEUROLOGICAL: Patient is awake, alert and oriented x3. generalized weakness. DISCHARGE DIAGNOSIS Shortness of breath possibly multifactorial with congestive heart failure, acute exacerbation with acute on chronic systolic dysfunction, ejection fraction 45% with moderate mitral regurgitation, aortic stenosis Large right and moderate left pleural effusion Sepsis due to Group D enterococcus bacteremia, present on admission Chronic kidney disease end-stage renal disease on hemodialysis, Wednesday//Wednesday Increased white blood count Anemia, normocytic Rule out right lower lobe pneumonia hyponatremia Elevated AST, ALT Acute urinary tract infection, with possible sepsis, present on admission, urine and blood cultures showing enterococcus faecalis Atrial fibrillation chronic history of coronary artery disease History of congestive heart failure Diabetes mellitus type 2 Gastroesophageal reflux disease Hypertension Hyperlipidemia Myocardial infarction history of degenerative joint disease History of bilateral lower extremity cellulitis, ulcers with Klebsiella, Pseudomonas History of diabetes, uncontrolled History of pleural effusion with right side thoracentesis History of paroxysmal atrial flutter Peripheral vascular disease History of benign prostatic hypertrophy History of coronary artery disease, CABG history of urinary retention History of coronary artery disease, stent Obesity with a body mass index of 31 Follow-up: He is advised to follow up with his primary care physician in 1-2 days. He should be completing his antibiotic vancomycin with his dialysis for 2 more weeks. Also advised follow-up with ID Dr. Cordero. And he has to be following with nephrology for his hemodialysis. Patient Condition at Discharge: Fair Plan - Discharge Summary New Discharge Prescriptions: New Furosemide [Lasix] 80 mg PO BID@0900,1600 30 Days #60 tab Midodrine [ProAmatine] 10 mg PO AC-TID 30 Days #180 tab Continue Ascorbic Acid [Vitamin C] 500 mg PO BID-W/MEALS tab Acetaminophen Tab [Tylenol] 500 mg PO Q6HR PRN tab PRN Reason: Fever And/ Or Pain Metoprolol Tartrate [Lopressor] 25 mg PO BID Ferrous Sulfate [Iron (65 MG Elemental)] 325 mg PO DAILY Ammonium Lactate Cream [Lac-Hydrin 12% Cream] 1 applic TOPICAL BID PRN PRN Reason: Dry Skin Bacitracin Zinc Oint 1 applic TOPICAL BID PRN PRN Reason: INFECTION Finasteride [Proscar] 5 mg PO DAILY Insulin Glargine,Hum.rec.anlog [Lantus Solostar] 10 unit SQ DAILY #1 pen Albuterol Sulfate [Ventolin HFA] 2 puff INHALATION RT-Q4H PRN PRN Reason: Shortness Of Breath Docusate [Colace] 100 mg PO DAILY PRN cap PRN Reason: Constipation Calcium Acetate [PhosLo] 667 mg PO TID-W/MEALS tab Pantoprazole [Protonix] 40 mg PO DAILY tablet.dr Calcium Carbonate [Tums] 1,000 mg PO BID chew Ergocalciferol [Vitamin D2 (DRISDOL)] 50,000 unit PO Q72H cap metOLazone 2.5 mg PO Q48H Ondansetron [Zofran] 4 mg PO TID PRN PRN Reason: Nausea Rosuvastatin [Crestor] 10 mg PO DAILY Melatonin 5 mg PO HS Insulin Aspart [NovoLOG Flexpen] See Protocol SQ TID-W/MEALS Apixaban [Eliquis] 2.5 mg PO BID Discontinued Furosemide [Lasix] 40 mg PO BID@0800,1500 Discharge Medication List Ascorbic Acid [Vitamin C] 500 mg PO BID-W/MEALS tab 12/20/18 [Rx] Acetaminophen Tab [Tylenol] 500 mg PO Q6HR PRN tab 01/25/19 [Rx] Metoprolol Tartrate [Lopressor] 25 mg PO BID 02/08/19 [History] Ferrous Sulfate [Iron (65 MG Elemental)] 325 mg PO DAILY 07/27/19 [History] Ammonium Lactate Cream [Lac-Hydrin 12% Cream] 1 applic TOPICAL BID PRN 10/30/19 [History] Bacitracin Zinc Oint 1 applic TOPICAL BID PRN 10/30/19 [History] Finasteride [Proscar] 5 mg PO DAILY 10/30/19 [History] Insulin Glargine,Hum.rec.anlog [Lantus Solostar] 10 unit SQ DAILY #1 pen 11/05/19 [Rx] Albuterol Sulfate [Ventolin HFA] 2 puff INHALATION RT-Q4H PRN 12/26/19 [History] Calcium Acetate [PhosLo] 667 mg PO TID-W/MEALS tab 01/12/20 [Rx] Calcium Carbonate [Tums] 1,000 mg PO BID chew 01/12/20 [Rx] Docusate [Colace] 100 mg PO DAILY PRN cap 01/12/20 [Rx] Ergocalciferol [Vitamin D2 (DRISDOL)] 50,000 unit PO Q72H cap 01/12/20 [Rx] Pantoprazole [Protonix] 40 mg PO DAILY tablet. 01/12/20 [Rx] Apixaban [Eliquis] 2.5 mg PO BID 04/07/20 [History] Insulin Aspart [NovoLOG Flexpen] See Protocol SQ TID-W/MEALS 04/07/20 [History] Melatonin 5 mg PO HS 04/07/20 [History] Ondansetron [Zofran] 4 mg PO TID PRN 04/07/20 [History] Rosuvastatin [Crestor] 10 mg PO DAILY 04/07/20 [History] metOLazone 2.5 mg PO Q48H 04/07/20 [History] Furosemide [Lasix] 80 mg PO BID@0900,1600 30 Days #60 tab 04/15/20 [Rx] Midodrine [ProAmatine] 10 mg PO AC-TID 30 Days #180 tab 04/15/20 [Rx] Follow up Appointment(s)/Referral(s): [facility] [NON-STAFF] - [facility]Clinic [Primary Care Provider] - 1-2 days Activity/Diet/Wound Care/Special Instructions: Vancomycin - Pharmacy to dose x 2 weeks with hemodialyis on Tuesdays//Saturdays per Dr. Cordero. Discharge Disposition: HOME SELF-CARE
--- NOTE | 2020-04-15 13:48 | P.PN ---
Subjective Progress Note Date: 04/15/20 Principal diagnosis: Hypotension, acute urinary tract infection with sepsis 80-year-old male patient got transferred from dialysis center as the patient's blood pressure was running low and he was unable to tolerate the the treatment. Dialysis was cut short by around 2 hours according to him. He is known to me. He is known to have extensive comorbidities including coronary artery disease, previous bypass surgery, CHF with ejection fraction 45%, mild aortic stenosis, hypertension and hyperlipidemia and the patient has chronic kidney disease and has been started on hemodialysis few months back via a temporary dialysis catheter in his right IJ. He also has history of diabetes mellitus, paroxysmal atrial flutter/fibrillation, peripheral vascular disease, BPH, and a chronic right-sided pleural effusion that was drained in the past where a total of 900 mL of fluid was aspirated from the right lung and the fluid barrel turner to be a transudate consistent with CHF. In any rate, the patient does have a Torres catheter. The urine output is quite and there is a suspicion for now underlying urine checked infection as the patient has more than 182 white cells and his urine analysis. Cultures still pending for now. The chest x-ray findings are essentially stable. The patient is stable cardiomegaly and stable loculated right-sided pleural effusion without evidence of any pneumothorax. No reported cough. No reported sputum production. The patient is covered empirically with IV Zosyn for now. He is afebrile. Most recent blood pressure is 97 with 54 with a room air pulse ox of 97%. His breathing is nonlabored. On 04/09/2020 patient seen on the selective care unit, his having a dialysis treatment right now, he states his breathing is comfortable, does not appear to be in any acute distress. On 2 L of oxygen and pulse ox 96%, he is afebrile, hemodynamically he is stable. Urine culture came back positive for group D enterococcus, Enterobacter amnigenus biogroup, and group D enterococcus bacteremia, and currently patient is on vancomycin per ID service recommendations, initially was covered with Zosyn. Patient continues on IV Lasix at 40 mg every 8 hours. Lung sounds are clear diminished at the bases, no significant rhonchi or wheezing, no cough or congestion. No couplets or chest pain. On 2019 patient seen in follow-up on [facility]. He is having hemodialysis treatment right now, is in mild amount of discomfort from groin pain, bilateral groin sites are clean dry and intact, no evidence of any hematomas, no swelling and no suspicious lymphadenopathy noted on palpation, bilateral groins are tender with palpation, patient is getting some pain medication, Torres catheter is in place, however patient states that his pain was present a week before hospitalization placement of catheter. Patient is on antibiotics for Enterococcus faecalis, Enterobacter amnigenus urinary tract infection, his blood culture is positive for group D enterococcus, ID service is following and patient is currently on Unasyn, commands and has been discontinued, no worsened shortness of breath, lung sounds are clear, no hematemesis treatment yesterday, with removal of 2.5 L with dialysis, today he had 2.2 L removed with dialysis, patient's chest CT, abdomen and pelvis was reviewed. Chest CT shows large volume right pleural effusion, moderate volume left pleural effusion with adjacent airspace opacities and atelectasis of the bilateral lungs, no pneumothorax. And nonspecific masslike opacity of the left lower lobe previously seen on December CT chest. Could be related to infectious or neoplastic etiology with the possibility of round atelectasis. Small volume ascites, and small amount of contrast within the esophagus possibly related to delayed esophageal emptying On 04/15/2020 patient seen in follow-up on a general medical surgical floor. He is awake and alert, in no acute distress, is currently on 2 L of oxygen with a pulse ox of 97-98%, afebrile, hemodynamically stable, denies worsening shortness of breath, lung sounds are clear, diminished at the bases, patient was found to have Enterococcus faecalis and his blood cultures related to acute enterococcus urinary tract infection, currently remains on Unasyn. Discharge planning is in progress for discharge to [facility] home on 2 more weeks of antibiotic treatment with IV vancomycin which will be administered to him with his hemodialysis 3 times a week for 2 more weeks. His mentation is appropriate, no altered mentation, no fever or chills, hemodynamically he is stable, he is supposed to have hemodialysis today, today's labs have been reviewed Objective - Vital Signs Vital signs: Vital Signs Temp 98.1 F 04/15/20 07:09 Pulse 76 04/15/20 11:15 Resp 16 04/15/20 07:09 BP 127/79 04/15/20 07:09 Pulse Ox 97 04/15/20 07:09 Intake & Output 04/14/20 04/15/20 04/15/20 18:59 06:59 18:59 Intake Total 540 280 Output Total 150 100 Balance 390 180 Weight 86 kg Intake: Oral 540 280 Output: Urine 150 100 Other: Voiding Method Indwelling Catheter Indwelling Catheter Indwelling Catheter - Exam GENERAL EXAM: Alert, very pleasant, 80-year-old white male, on 2 L of oxygen the pulse ox of 97%, resting comfortably in bed, currently getting hemodialysis comfortable in no apparent distress. HEAD: Normocephalic/atraumatic. EYES: Normal reaction of pupils, equal size. Conjunctiva pink, sclera white. NOSE: Clear with pink turbinates. THROAT: No erythema or exudates. NECK: No masses, no JVD, no thyroid enlargement, no adenopathy. Right IJ dialysis catheter CHEST: No chest wall deformity. Symmetrical expansion. LUNGS: Equal air entry with no crackles, wheeze, rhonchi or dullness. CVS: Regular rate and rhythm, normal S1 and S2, no gallops, no murmurs, no rubs ABDOMEN: Soft, nontender. No hepatosplenomegaly, normal bowel sounds, no guarding or rigidity. EXTREMITIES: No clubbing, 1+ lower extremity edema, no cyanosis, 2+ pulses and upper and lower extremities. MUSCULOSKELETAL: Muscle strength and tone normal. SPINE: No scoliosis or deformity SKIN: No rashes CENTRAL NERVOUS SYSTEM: Alert and oriented -3. No focal deficits, tone is normal in all 4 extremities. PSYCHIATRIC: Alert and oriented -3. Appropriate affect. Intact judgment and insight. - Labs CBC & Chem 7: 04/15/20 07:35 04/15/20 07:35 Labs: Abnormal Lab Results - Last 24 Hours (Table) 04/14/20 04/14/20 04/15/20 Range/Units 16:39 20:42 01:11 WBC (3.8-10.6) k/uL RBC (4.30-5.90) m/uL Hgb (13.0-17.5) gm/dL Hct (39.0-53.0) % RDW (11.5-15.5) % Neutrophils # (1.3-7.7) k/uL Lymphocytes # (1.0-4.8) k/uL Sodium (137-145) mmol/L Potassium (3.5-5.1) mmol/L BUN (9-20) mg/dL Creatinine (0.66-1.25) mg/dL Glucose (74-99) mg/dL POC Glucose (mg/dL) 144 H 147 H 104 H (75-99) mg/dL Calcium (8.4-10.2) mg/dL 04/15/20 04/15/20 04/15/20 Range/Units 06:50 07:35 07:35 WBC 13.3 H (3.8-10.6) k/uL RBC 4.18 L (4.30-5.90) m/uL Hgb 11.4 L (13.0-17.5) gm/dL Hct 36.3 L (39.0-53.0) % RDW 16.6 H (11.5-15.5) % Neutrophils # 11.8 H (1.3-7.7) k/uL Lymphocytes # 0.4 L (1.0-4.8) k/uL Sodium 131 L (137-145) mmol/L Potassium 5.2 H (3.5-5.1) mmol/L BUN 57 H (9-20) mg/dL Creatinine 4.30 H (0.66-1.25) mg/dL Glucose 159 H (74-99) mg/dL POC Glucose (mg/dL) 252 H (75-99) mg/dL Calcium 8.3 L (8.4-10.2) mg/dL 04/15/20 Range/Units 11:42 WBC (3.8-10.6) k/uL RBC (4.30-5.90) m/uL Hgb (13.0-17.5) gm/dL Hct (39.0-53.0) % RDW (11.5-15.5) % Neutrophils # (1.3-7.7) k/uL Lymphocytes # (1.0-4.8) k/uL Sodium (137-145) mmol/L Potassium (3.5-5.1) mmol/L BUN (9-20) mg/dL Creatinine (0.66-1.25) mg/dL Glucose (74-99) mg/dL POC Glucose (mg/dL) 138 H (75-99) mg/dL Calcium (8.4-10.2) mg/dL Microbiology - Last 24 Hours (Table) 04/09/20 05:48 Blood Culture - Final Blood No Growth after 144 hours 04/10/20 16:00 Blood Culture - Preliminary Blood No Growth after 96 hours 04/08/20 14:20 Blood Culture - Final Blood No Growth after 144 hours 04/10/20 14:07 Blood Culture - Preliminary Blood No Growth after 96 hours 04/11/20 12:30 Blood Culture - Preliminary Blood No Growth after 72 hours Assessment and Plan Plan: Assessment: 1 hypotension related to enterococcus bacteremia related to urinary tract infection with urine cultures positive for enterococcus group D organism, was initially covered with Zosyn, currently on vancomycin final urine culture and blood culture showing enterococcus faecalis 2 End stage renal disease currently on hemodialysis. The patient has done dialysis for the past 2 month 3 small bilateral pleural effusions, and the patient has had a loculated right- sided pleural effusion and a previous drainage of the right lung yielded into a non-cc of pleural fluid that was a transudate. 4 CHF with ejection fraction 45% and mild aortic stenosis and moderate mitral regurgitation. Echocardiac Richard is to be repeated. The patient has mild systolic heart failure 5 chronic atrial fibrillation maintained on Eliquis on outpatient basis 6 diabetes mellitus 7 hypertension 8 hyperlipidemia 9 coronary artery disease with previous bypass surgery that was performed in December 2018 10 history of iron deficiency anemia with a positive occult blood in the stool 11 anemia of chronic disease 12 generalized weakness and fatigue with a marginally low blood pressure Plan: Patient is stable for discharge to [facility] home today, and he is supposed to resume his normal hemodialysis days, will receive vancomycin with dialysis treatments for 2 more weeks per ID service. He is afebrile, hemodynamically he stable, no worsening dyspnea. I performed a history & physical examination of the patient and discussed their management with my nurse practitioner, Demetria Ramos. I reviewed the nurse practitioner's note and agree with the documented findings and plan of care. Lung sounds are positive for diminished breath sounds. The findings and the im pression was discussed with the patient. I attest to the documentation by the nurse practitioner. Time with Patient: Less than 30
--- NOTE | 2020-04-15 14:21 | PN ---
PROGRESS NOTE DATE OF SERVICE: 04/15/2020 REASON FOR FOLLOWUP: Enterococcus faecalis bacteremia, source likely urine. INTERVAL HISTORY: Patient is currently afebrile, has been breathing comfortably. Patient denies having any chest pain. No shortness of breath or cough. No nausea. No vomiting, no abdominal pain, no diarrhea. PHYSICAL EXAMINATION: Blood pressure 127/79, pulse of 79, temperature 98.1. He is 97% on 2 L nasal cannula. General description is an elderly male, up in the chair in no distress. RESPIRATORY SYSTEM: Unlabored breathing, decreased breath sounds at the bases. No wheeze. HEART: S1, S2. Regular rate and rhythm. ABDOMEN: Soft, no tenderness. LABS: Hemoglobin of 11.4, white count of 3.3, BUN of 57, creatinine of 4.30. Blood cultures 04/10 and 04/11 have been negative. DIAGNOSTIC IMPRESSION AND PLAN: Patient with a Enterococcus faecalis bacteremia and has been started from the urine, repeat blood culture came back negative. Clinically less likely endovascular source. Echocardiogram did not show any effusion. Plan is for 2 weeks of vancomycin pharmacy to dose through the dialysis so we can avoid placing a PICC line for the Unasyn. Recommending obtaining blood culture x1 a week after completing antibiotic to make sure no evidence of any recurrence of bacteremia and any further workup. MMODL / IJN: [id number] /
[2020-04-15] MEDS ORDERED: HEPARIN SODIUM,PORCINE 5,000 UNIT/ML 1 ML VIAL ONE (15:00)
[2020-04-15 16:48] LABS: Glucose,Whole Blood 87 mg/dL (75-99)
[2020-04-15 20:35] LABS: Glucose,Whole Blood 129 mg/dL (75-99)
[2020-04-15] MEDS: MELATONIN 5 MG TABLET PO SCH (21:27)
[2020-04-16 05:44] LABS: Glucose,Whole Blood 171 mg/dL (75-99)
[2020-04-16 07:08] LABS: Glucose,Whole Blood 135 mg/dL (75-99)
[2020-04-16] MEDS: NON FORMULARY DRUG (Rosuvastatin 10 MG) PO SCH (07:40)
[2020-04-16] MEDS: MIDODRINE 5 MG TAB PO SCH ×3 (07:44→16:26)
[2020-04-16] MEDS: INSULIN ASPART (NovoLOG) 100 UNIT/ML VIAL SQ SCH ×2 (07:44→12:00)
[2020-04-16] MEDS: METOPROLOL TARTRATE 25 MG TAB PO SCH (07:44)
[2020-04-16] MEDS: FINASTERIDE 5 MG TAB PO SCH (07:44)
[2020-04-16] MEDS: INSULIN DETEMIR (LEVEMIR) 100 UNIT/ML SYR SQ SCH (07:45)
[2020-04-16] MEDS: PANTOPRAZOLE 40 MG TABLET PO SCH (07:45)
[2020-04-16] MEDS: metOLazone 2.5 MG TAB PO SCH (07:45)
[2020-04-16] MEDS: APIXABAN 2.5 MG TABLET PO SCH (07:45)
[2020-04-16] MEDS: FERROUS SULFATE 325 MG TAB PO SCH (07:45)
[2020-04-16] MEDS: FUROSEMIDE 80 MG TAB PO SCH ×2 (07:45→16:26)
[2020-04-16] MEDS: CALCIUM ACETATE 667 MG TAB PO SCH ×3 (07:45→16:26)
[2020-04-16] MEDS: ASCORBIC ACID 500 MG TAB PO SCH ×2 (07:45→16:26)
[2020-04-16] MEDS: CALCIUM CARBONATE 500 MG CHEWABLE PO SCH (07:45)
[2020-04-16] MEDS: AMPICILLIN-SULBACTAM 3 GM in SODIUM CHLORIDE 0.9% 100 ML IVPB SCH (07:46)
[2020-04-16] MEDS: IPRATROPIUM-ALBUTEROL 3 ML NEB INHALATION SCH ×2 (07:58→13:15)
--- NOTE | 2020-04-16 10:59 | P.PN ---
Subjective Patient is seen in follow for end-stage renal disease. He is maintained on hemodialysis on Wednesday schedule. Currently being treated for enterococcus bacteremia and UTI. Denies chest pain or shortness of breath but states gets out of breath without oxygen support. Still quite edematous. Scheduled for discharge today. Vital signs are stable. General: The patient appeared well nourished and normally developed. HEENT: Head exam is unremarkable. Neck is without jugular venous distension. LUNGS: Breath sounds decreased. HEART: Rate and Rhythm are regular. ABDOMEN: Soft, nontender. EXTREMITITES: 2+ edema. Objective - Vital Signs Vital signs: Vital Signs Temp 97.8 F 04/16/20 07:00 Pulse 76 04/16/20 08:09 Resp 18 04/16/20 07:00 BP 110/72 04/16/20 07:00 Pulse Ox 81 L 04/16/20 09:09 Intake & Output 04/15/20 04/16/20 04/16/20 18:59 06:59 18:59 Output Total 2100 150 Balance -2100 -150 Output: Urine 100 150 Hemodialysis 2000 Other: Voiding Method Indwelling Catheter Indwelling Catheter Indwelling Catheter - Labs CBC & Chem 7: 04/15/20 07:35 04/15/20 07:35 Labs: Abnormal Lab Results - Last 24 Hours (Table) 04/15/20 04/15/20 04/16/20 Range/Units 11:42 20:34 05:42 POC Glucose (mg/dL) 138 H 129 H 171 H (75-99) mg/dL 04/16/20 Range/Units 07:06 POC Glucose (mg/dL) 135 H (75-99) mg/dL Microbiology - Last 24 Hours (Table) 04/10/20 16:00 Blood Culture - Preliminary Blood No Growth after 120 hours 04/10/20 14:07 Blood Culture - Preliminary Blood No Growth after 120 hours 04/11/20 12:30 Blood Culture - Preliminary Blood No Growth after 96 hours 04/09/20 05:48 Blood Culture - Final Blood No Growth after 144 hours Assessment and Plan Plan: Assessment: 1. End-stage renal disease maintained on hemodialysis on Wednesday schedule. 2. Enterococcus facialis bacteremia maintained on antibiotics. Infectious disease following. 3. Volume overload. 4. Hyponatremia secondary to chronic kidney disease. Hypervolemic. 5. Chronic kidney disease mineral bone disease maintained on PhosLo. 6. Chronic hypotension maintained on midodrine. Plan: Hemodialysis today. Maintain oral Lasix 80 mg twice daily. Stable for discharge from nephrology standpoint after dialysis today.
[2020-04-16 11:34] LABS: Glucose,Whole Blood 234 mg/dL (75-99)
[2020-04-16] MEDS ORDERED: VANCOMYCIN IV PER PHARMACY 1 EACH MISC MISCELLANE PRN (13:52)
[2020-04-16] MEDS ORDERED: VANCOMYCIN 1,500 MG in SODIUM CHLORIDE 0.9% 250 ML IVPB STA (13:59)
--- NOTE | 2020-04-16 16:14 | PN ---
PROGRESS NOTE DATE OF SERVICE: 04/16/2020. REASON FOR FOLLOWUP: Enterococcus faecalis bacteremia, source urinary. INTERVAL HISTORY: The patient is currently afebrile, the patient is breathing comfortably. Denies having any chest pain. Occasional cough. No sputum. No nausea, no vomiting. No abdominal pain, no diarrhea. PHYSICAL EXAMINATION: Blood pressure 110/72 with a pulse of 80, temperature 97.8. He is 94% on 2 L nasal cannula. General description is an elderly male lying in bed in no distress. RESPIRATORY SYSTEM: Unlabored breathing. Breath sounds diminished at the base, no wheeze. HEART: S1, S2. Regular rate and rhythm. ABDOMEN: Soft, no tenderness. LABS: No new labs have been obtained today. Blood cultures from 04/10 and 04/11 has been negative as well as 04/09. IMPRESSION/PLAN: Patient with Enterococcus faecalis bacteremia, source likely urinary in this patient who did have catheter system urinary tract infection. Torres has been changed. Plan is for 2 weeks of IV vancomycin through the dialysis so we can avoid a PICC or midline placement with plan for repeating a blood cultures a week after completing his antibiotic therapy. On admission, no evidence of any recurrence of bacteremia. Continue supportive care. Their questions were answered. MMODL / IJN: [id number] /
--- NOTE | 2020-04-17 00:03 | P.PN ---
Subjective Progress Note Date: 04/15/20 Principal diagnosis: Sepsis secondary to UTI Mr. Brice is a 80-year-old male with multiple chronic medical conditions including CAD status post CABG, CHF with EF of 45%, mild aortic stenosis, hypertension, hyperlipidemia, CKD on hemodialysis sent in from dialysis center as his blood pressure was running low and he was unable to tolerate his dialysis. Eventually patient was found to have blood cultures growing group D enterococcus, that go along with urine culture. So currently he is on Unasyn. Patient also had CT of the chest abdomen and pelvis showing large right and moderate left sided pleural effusion. He also had small volume ascites and also delayed esophageal emptying. Multiple consultants including pulmonary, cardiology, nephrology, ID following the patient closely. Patient also had echocardiogram done showing ejection fraction of 40 to 45% with inferior wall hypokinesis. This morning patient is awake and alert resting comfortably in bed. Patient had dialysis done with almost 3 L of fluid taken today. Blood cultures have been positive for Enterococcus faecalis and patient has been afebrile for the past 24 hours. On reviewing the labs his white count is 12.9, hemoglobin stable at around 11, sodium 130, potassium 5.5, chloride 96, bicarb 21, BUN 46, creatinine 3.78. Patient's Lasix has been changed to 80 mg twice daily by nephrology today. on 04/14/2020- patient is comfortably lying in bed appears to be no acute dist ress. No acute events reported by nursing staff. Patient states that his difficulty in breathing is better. History of leg weakness is improved. Patient denies having any fevers chills or rigors overnight. No chest pain or palpitations. No abdominal pain nausea vomiting or diarrhea. Patient states that his last bowel movement was couple of days back. And that he took Colace this morning.on reviewing the patient's vitals temperature 98.6, heart rate 81, blood pressure 112/70, saturating at 92% on 2 L of nasal cannula.patient does not have any new labs done from this morning. His last him yesterday showing creatinine of 3.78, potassium of 5.5. Nephrology on board in managing his dial ysis. On 04/15 - patient is comfortably lying in bed appears to be no acute distress. No acute events reported by nursing staff. Pt is cleared for discharge but was held due to social issues. Vitals in the past 24 hrs stable. Objective - Vital Signs Vital signs: Vital Signs Temp 98.1 F 04/15/20 18:50 Pulse 76 04/15/20 20:32 Resp 16 04/15/20 20:32 BP 135/68 04/15/20 18:50 Pulse Ox 98 04/15/20 20:22 Intake & Output 04/15/20 04/15/20 04/16/20 06:59 18:59 06:59 Intake Total 280 Output Total 100 2100 Balance 180 -2100 Intake: Oral 280 Output: Urine 100 100 Hemodialysis 2000 Other: Voiding Method Indwelling Catheter Indwelling Catheter - Exam PHYSICAL EXAM Gen: lying in bed, awake, alert and oriented 3, well-developed, well-nourished. HEENT: Head is atraumatic, normocephalic. Pupils equal, round. Sclerae is anicteric. NECK: Supple. No JVD. No lymphadenopathy. No thyromegaly. LUNGS: Breath sounds diminished at the bases with a few scattered rhonchi noted. No intercostal retractions. HEART: Regular rate and rhythm. No murmur. ABDOMEN: Soft. Obese. Bowel sounds are present. No masses. No tenderness. EXTREMITIES: No calf tenderness. Bilateral lower extremity edema NEUROLOGICAL: Patient is awake, alert and oriented x3. generalized weakness. - Labs CBC & Chem 7: 04/15/20 07:35 04/15/20 07:35 Labs: Abnormal Lab Results - Last 24 Hours (Table) 04/15/20 04/15/20 04/15/20 Range/Units 01:11 06:50 07:35 WBC 13.3 H (3.8-10.6) k/uL RBC 4.18 L (4.30-5.90) m/uL Hgb 11.4 L (13.0-17.5) gm/dL Hct 36.3 L (39.0-53.0) % RDW 16.6 H (11.5-15.5) % Neutrophils # 11.8 H (1.3-7.7) k/uL Lymphocytes # 0.4 L (1.0-4.8) k/uL Sodium (137-145) mmol/L Potassium (3.5-5.1) mmol/L BUN (9-20) mg/dL Creatinine (0.66-1.25) mg/dL Glucose (74-99) mg/dL POC Glucose (mg/dL) 104 H 252 H (75-99) mg/dL Calcium (8.4-10.2) mg/dL 04/15/20 04/15/20 04/15/20 Range/Units 07:35 11:42 20:34 WBC (3.8-10.6) k/uL RBC (4.30-5.90) m/uL Hgb (13.0-17.5) gm/dL Hct (39.0-53.0) % RDW (11.5-15.5) % Neutrophils # (1.3-7.7) k/uL Lymphocytes # (1.0-4.8) k/uL Sodium 131 L (137-145) mmol/L Potassium 5.2 H (3.5-5.1) mmol/L BUN 57 H (9-20) mg/dL Creatinine 4.30 H (0.66-1.25) mg/dL Glucose 159 H (74-99) mg/dL POC Glucose (mg/dL) 138 H 129 H (75-99) mg/dL Calcium 8.3 L (8.4-10.2) mg/dL Microbiology - Last 24 Hours (Table) 04/10/20 16:00 Blood Culture - Preliminary Blood No Growth after 120 hours 04/10/20 14:07 Blood Culture - Preliminary Blood No Growth after 120 hours 04/11/20 12:30 Blood Culture - Preliminary Blood No Growth after 96 hours 04/09/20 05:48 Blood Culture - Final Blood No Growth after 144 hours Assessment and Plan Assessment: ASSESSMENT Shortness of breath possibly multifactorial with congestive heart failure, acute exacerbation with acute on chronic systolic dysfunction, ejection fraction 45% with moderate mitral regurgitation, aortic stenosis Large right and moderate left pleural effusion Sepsis due to Group D enterococcus bacteremia, present on admission Chronic kidney disease end-stage renal disease on hemodialysis, Wednesday//Wednesday Increased white blood count Anemia, normocytic Rule out right lower lobe pneumonia hyponatremia Elevated AST, ALT Acute urinary tract infection, with possible sepsis, present on admission, urine and blood cultures showing enterococcus faecalis Atrial fibrillation chronic history of coronary artery disease History of congestive heart failure Diabetes mellitus type 2 Gastroesophageal reflux disease Hypertension Hyperlipidemia Myocardial infarction history of degenerative joint disease History of bilateral lower extremity cellulitis, ulcers with Klebsiella, Pseudomonas History of diabetes, uncontrolled History of pleural effusion with right side thoracentesis History of paroxysmal atrial flutter Peripheral vascular disease History of benign prostatic hypertrophy History of coronary artery disease, CABG history of urinary retention History of coronary artery disease, stent Obesity with a body mass index of 31 Full code PLAN: Recommend continue current medications, management, and symptomatic treatment. Patient is maintained on IV antibiotics in the form of Unasyn and will continue at this time. Infectious disease following. blood cultures showing enterococcus faecalis with urine culture finalized showing enterococcus faecalis, enterobacte amnigenus biogrp 2, and Omaira albicans. Repeat blood cultures from 04/10 And 04/11 Showing no growth for 24 hours. Nephrology following as well and patient is currently receiving hemodialysis on his Wednesday// Wednesday schedule. he is also getting an extra session of dialysis done today. Due to multiple complex medical issues, prognosis is guarded. Case management and social work following as patient may need SNF placement once stabilized and discharged if IV antibiotic therapy is necessary. Current [facility] home working on possibility of accommodating IV antibiotic therapy with the infusion center. Anticipate discharge in the next 24 hrs.
--- NOTE | 2020-04-17 00:06 | P.DS ---
Providers Date of admission: 04/07/20 13:21 Expected date of discharge: 04/16/20 Attending physician: Kala Laboy Consults: 04/07/20 13:23 Consult Physician Stat Consulting Provider: Pam Lewis Consult Reason/Comments: ERSD on hemodialysis Do you want consulting provider notified?: Yes 04/07/20 17:55 Consult Physician Routine Consulting Provider: Geo Epps Consult Reason/Comments: chf Do you want consulting provider notified?: Yes Consult Physician Routine Consulting Provider: Michael Bull Consult Reason/Comments: pl effusion Do you want consulting provider notified?: Yes 04/08/20 13:54 Consult Physician Stat Consulting Provider: Luc Cordero Consult Reason/Comments: positive blood cultures/enterococcus/ESRD Do you want consulting provider notified?: Yes Primary care physician: [place] [facility] Course: Mr. Brice is a 80-year-old male with multiple chronic medical conditions including CAD status post CABG, CHF with EF of 45%, mild aortic stenosis, hypertension, hyperlipidemia, CKD on hemodialysis sent in from dialysis center as his blood pressure was running low and he was unable to tolerate his dialysis. Eventually patient was found to have blood cultures growing group D enterococcus, that go along with urine culture. Patient also had CT of the chest abdomen and pelvis showing large right and moderate left sided pleural effusion. He also had small volume ascites and also delayed esophageal emptying. Multiple consultants including pulmonary, cardiology, nephrology, ID following followed the patient closely. Patient also had echocardiogram done showing ejection fraction of 40 to 45% with inferior wall hypokinesis. Patient received multiple rounds of dialysis after which his symptoms improved significantly. He was also started on midodrine to maintain his blood pressures. Eventually ID Dr. Cordero and recommended for him to complete a two- week course of vancomycin which could be given with his dialysis. The patient is cleared by all the consultants for discharge today. He is being sent to [facility]. Vital Signs - 24 hr 04/16/20 04/16/20 04/16/20 00:35 07:00 07:58 Temperature 98.2 F 97.8 F Pulse Rate 72 Pulse Rate [ 81 80 Pulse Oximetery ] Respiratory 16 18 Rate Blood Pressure 118/72 110/72 [Right Arm] O2 Sat by Pulse 95 94 L Oximetry O2 Sat by Pulse Oximetry [Room Air at Rest] 08/11/20 08/11/20 08/11/20 08:09 09:07 09:09 Temperature Pulse Rate 76 Pulse Rate [ Pulse Oximetery ] Respiratory Rate Blood Pressure [Right Arm] O2 Sat by Pulse 81 L Oximetry O2 Sat by Pulse 81 L Oximetry [Room Air at Rest] 04/16/20 04/16/20 04/16/20 13:15 13:28 15:00 Temperature 97.2 F L Pulse Rate 72 66 Pulse Rate [ 68 Pulse Oximetery ] Respiratory Rate Blood Pressure 106/64 [Right Arm] O2 Sat by Pulse 98 Oximetry O2 Sat by Pulse Oximetry [Room Air at Rest] PHYSICAL EXAM Gen: lying in bed, awake, alert and oriented 3, well-developed, well-nourished. HEENT: Head is atraumatic, normocephalic. Pupils equal, round. Sclerae is anicteric. NECK: Supple. No JVD. No lymphadenopathy. No thyromegaly. LUNGS: Breath sounds diminished at the bases with a few scattered rhonchi noted. No intercostal retractions. HEART: Regular rate and rhythm. No murmur. ABDOMEN: Soft. Obese. Bowel sounds are present. No masses. No tenderness. EXTREMITIES: No calf tenderness. Bilateral lower extremity edema NEUROLOGICAL: Patient is awake, alert and oriented x3. generalized weakness. DISCHARGE DIAGNOSIS Shortness of breath possibly multifactorial with congestive heart failure, acute exacerbation with acute on chronic systolic dysfunction, ejection fraction 45% with moderate mitral regurgitation, aortic stenosis Large right and moderate left pleural effusion Sepsis due to Group D enterococcus bacteremia, present on admission Chronic kidney disease end-stage renal disease on hemodialysis, Wednesday//Wednesday Increased white blood count Anemia, normocytic Rule out right lower lobe pneumonia hyponatremia Elevated AST, ALT Acute urinary tract infection, with possible sepsis, present on admission, urine and blood cultures showing enterococcus faecalis Atrial fibrillation chronic history of coronary artery disease History of congestive heart failure Diabetes mellitus type 2 Gastroesophageal reflux disease Hypertension Hyperlipidemia Myocardial infarction history of degenerative joint disease History of bilateral lower extremity cellulitis, ulcers with Klebsiella, Pseudomonas History of diabetes, uncontrolled History of pleural effusion with right side thoracentesis History of paroxysmal atrial flutter Peripheral vascular disease History of benign prostatic hypertrophy History of coronary artery disease, CABG history of urinary retention History of coronary artery disease, stent Obesity with a body mass index of 31 Follow-up: He is advised to follow up with his primary care physician in 1-2 days. He should be completing his antibiotic vancomycin with his dialysis for 2 more weeks. Also advised follow-up with ID Dr. Cordero. And he has to be following with nephrology for his hemodialysis. More than 35 mins spent for the discharge of the aptient, with more than 50 % for counselling and coordination. Patient Condition at Discharge: Fair Plan - Discharge Summary New Discharge Prescriptions: New Furosemide [Lasix] 80 mg PO BID@0900,1600 30 Days #60 tab Midodrine [ProAmatine] 10 mg PO AC-TID 30 Days #180 tab Continue Ascorbic Acid [Vitamin C] 500 mg PO BID-W/MEALS tab Acetaminophen Tab [Tylenol] 500 mg PO Q6HR PRN tab PRN Reason: Fever And/ Or Pain Metoprolol Tartrate [Lopressor] 25 mg PO BID Ferrous Sulfate [Iron (65 MG Elemental)] 325 mg PO DAILY Ammonium Lactate Cream [Lac-Hydrin 12% Cream] 1 applic TOPICAL BID PRN PRN Reason: Dry Skin Bacitracin Zinc Oint 1 applic TOPICAL BID PRN PRN Reason: INFECTION Finasteride [Proscar] 5 mg PO DAILY Insulin Glargine,Hum.rec.anlog [Lantus Solostar] 10 unit SQ DAILY #1 pen Albuterol Sulfate [Ventolin HFA] 2 puff INHALATION RT-Q4H PRN PRN Reason: Shortness Of Breath Docusate [Colace] 100 mg PO DAILY PRN cap PRN Reason: Constipation Calcium Acetate [PhosLo] 667 mg PO TID-W/MEALS tab Pantoprazole [Protonix] 40 mg PO DAILY tablet. Calcium Carbonate [Tums] 1,000 mg PO BID chew Ergocalciferol [Vitamin D2 (DRISDOL)] 50,000 unit PO Q72H cap metOLazone 2.5 mg PO Q48H Ondansetron [Zofran] 4 mg PO TID PRN PRN Reason: Nausea Rosuvastatin [Crestor] 10 mg PO DAILY Melatonin 5 mg PO HS Insulin Aspart [NovoLOG Flexpen] See Protocol SQ TID-W/MEALS Apixaban [Eliquis] 2.5 mg PO BID Discontinued Furosemide [Lasix] 40 mg PO BID@0800,1500 Discharge Medication List Ascorbic Acid [Vitamin C] 500 mg PO BID-W/MEALS tab 12/20/18 [Rx] Acetaminophen Tab [Tylenol] 500 mg PO Q6HR PRN tab 01/25/19 [Rx] Metoprolol Tartrate [Lopressor] 25 mg PO BID 02/08/19 [History] Ferrous Sulfate [Iron (65 MG Elemental)] 325 mg PO DAILY 07/27/19 [History] Ammonium Lactate Cream [Lac-Hydrin 12% Cream] 1 applic TOPICAL BID PRN 10/30/19 [History] Bacitracin Zinc Oint 1 applic TOPICAL BID PRN 10/30/19 [History] Finasteride [Proscar] 5 mg PO DAILY 10/30/19 [History] Insulin Glargine,Hum.rec.anlog [Lantus Solostar] 10 unit SQ DAILY #1 pen 11/05/19 [Rx] Albuterol Sulfate [Ventolin HFA] 2 puff INHALATION RT-Q4H PRN 12/26/19 [History] Calcium Acetate [PhosLo] 667 mg PO TID-W/MEALS tab 01/12/20 [Rx] Calcium Carbonate [Tums] 1,000 mg PO BID chew 01/12/20 [Rx] Docusate [Colace] 100 mg PO DAILY PRN cap 01/12/20 [Rx] Ergocalciferol [Vitamin D2 (DRISDOL)] 50,000 unit PO Q72H cap 01/12/20 [Rx] Pantoprazole [Protonix] 40 mg PO DAILY tablet.dr 01/12/20 [Rx] Apixaban [Eliquis] 2.5 mg PO BID 04/07/20 [History] Insulin Aspart [NovoLOG Flexpen] See Protocol SQ TID-W/MEALS 04/07/20 [History] Melatonin 5 mg PO HS 04/07/20 [History] Ondansetron [Zofran] 4 mg PO TID PRN 04/07/20 [History] Rosuvastatin [Crestor] 10 mg PO DAILY 04/07/20 [History] metOLazone 2.5 mg PO Q48H 04/07/20 [History] Furosemide [Lasix] 80 mg PO BID@0900,1600 30 Days #60 tab 04/15/20 [Rx] Midodrine [ProAmatine] 10 mg PO AC-TID 30 Days #180 tab 04/15/20 [Rx] Follow up [facility]ment[facility],Equipment [NON-STAFF] - ([facility] will deliver a portable oxygen tank to the bedside before discharge and a concentrator to the home once patient is home. Please contact [facility] with any questions related to oxygen. ) [facility],Clinic [Primary Care Provider] - 1-2 days Patient Instructions/Handouts: Urinary Tract Infection in Men (DC), Pneumonia (DC) Activity/Diet/Wound Care/Special Instructions: Call [facility] [phone] when pt leaves to have them order the oxygen concentrator Vancomycin - Pharmacy to dose x 2 weeks with hemodialyis on Tuesdays//Saturdays per Dr. Cordero. Discharge Disposition: HOME SELF-CARE
[2020-04-17 08:36] VITALS: BP 114/67; PULSE 67; RESP 20; TEMP 97.3
--- NOTE | 2020-04-17 11:50 | CDI ---
Documentation Clarification Form Date: 04/17/20 From: [place] Sutton [facility]CS Phone: If you have a question about this query, please contact Marci Burgess, Education Program Specialist at [phone] between 8am and 5pm. Admit Date: 04/07/20 Discharge Date: 04/16/20 Patient Name: Neto Carrasco Visit Number: [id number] ATTENTION: The Clinical Documentation Specialists (CDI) and [facility] Coding Staff appreciate your assistance in clarifying documentation. Please respond to the clarification below the line at the bottom and electronically sign. The CDI & [facility] Coding staff will review the response and follow-up if needed. Please note: Queries are made part of the Legal Health Record. If you have any questions, please contact the author of this message via ITS. Dear Dr. Mercado, Stage II coccyx wound, POA, is documented in the wound care notes. History/Risk Factors: CHF, Sepsis, Hx cellulitis, DM, ESRD, UTI Clinical Indicators: Coccyx wound Treatment: Petroleum jelly, foam w/border Consults: Wound care In your professional opinion, can you please clarify stage II coccyx ulcer? Stage II coccyx ulcer- diabetic ulcer Stage II coccyx ulcer-pressure ulcer Stage II coccyx ulcer-unspecified Ulcer ruled out Other, please specify Unable to determine Stage II coccyx ulcer-unspecified MTDD
[2020-04-17] MEDS ORDERED: VANCOMYCIN 1,500 MG in SODIUM CHLORIDE 0.9% 250 ML IVPB ONE (12:00)
--- NOTE | 2020-04-17 15:43 | CDI ---
Documentation Clarification Form Date: 04/17/20 From: [place] Sutton [facility] Phone: If you have a question about this query, please contact Marci Burgess, Rn Teacher at [phone] between 8am and 5pm. Admit Date: 04/07/20 Discharge Date:04/16/20 Patient Name: Neto Brice Visit Number: [id number] ATTENTION: The Clinical Documentation Specialists (CDI) and [facility] Coding Staff appreciate your assistance in clarifying documentation. Please respond to the clarification below the line at the bottom and electronically sign. The CDI & [facility] Coding staff will review the response and follow-up if needed. Please note: Queries are made part of the Legal Health Record. If you have any questions, please contact the author of this message via ITS. Dear Dr. Mercado, Your patient has the documented diagnosis of sepsis secondary to UTI and indwelling pittman catheter in PNs and DS. A relationship between diagnoses cannot be assumed unless documented as such by the attending physician. In order to capture the severity of condition; please document the relationship, if any, between these diagnoses. History/Risk Factors: UTI, Sepsis, ESRD, PNA Clinical Indicators: Sepsis with UTI, pittman catheter Treatment: IV Levaquin, IV Zosyn, IV Vancomycin Please clarify and document your clinical opinion if any relationship (due to, caused by, secondary to) exists between these two diagnoses. Sepsis due to UTI secondary to pittman catheter Sepsis due to UTI Sepsis due to other source (please specify) Other explanation of clinical findings (please specify) Unable to determine (no explanation for clinical findings) Sepsis due to UTI secondary to pittman catheter MTDD
== END 2020-04-16 16:40 | disposition home health service (06) | DRG 698 ==
LOC: EC 10:14 → 3SCARD 13:21 → 4SSUR 04-10 19:30
PROVIDERS: ADMIT Internal Medicine; ATTEND Internal Medicine
PROC: 5A1D70Z Performance of Urinary Filtration, Intermittent, Less than 6 Hours Per Day (ICD-10-PCS; principal; 2020-04-09)
PROC: 05HF33Z Insertion of Infusion Device into Left Cephalic Vein, Percutaneous Approach (ICD-10-PCS; 2020-04-12 12:20)
DX: T83.511A Infection and inflammatory reaction due to indwelling urethral catheter, initial encounter (principal); A41.81 Sepsis due to Enterococcus; I50.23 Acute on chronic systolic (congestive) heart failure; J18.9 Pneumonia, unspecified organism; N18.6 End stage renal disease; I13.2 Hypertensive heart and chronic kidney disease with heart failure and with stage 5 chronic kidney disease, or end stage renal disease; I42.9 Cardiomyopathy, unspecified; R18.8 Other ascites; I48.11 Longstanding persistent atrial fibrillation; I48.92 Unspecified atrial flutter; E87.1 Hypo-osmolality and hyponatremia; L98.421 Non-pressure chronic ulcer of back limited to breakdown of skin; N39.0 Urinary tract infection, site not specified; Z20.828 Contact with and (suspected) exposure to other viral communicable diseases; D63.1 Anemia in chronic kidney disease; E83.9 Disorder of mineral metabolism, unspecified; I95.89 Other hypotension; E11.22 Type 2 diabetes mellitus with diabetic chronic kidney disease; E11.51 Type 2 diabetes mellitus with diabetic peripheral angiopathy without gangrene; I95.9 Hypotension, unspecified; Z99.2 Dependence on renal dialysis; Z79.4 Long term (current) use of insulin; K21.9 Gastro-esophageal reflux disease without esophagitis; I25.10 Atherosclerotic heart disease of native coronary artery without angina pectoris; E78.5 Hyperlipidemia, unspecified; M19.90 Unspecified osteoarthritis, unspecified site; N40.1 Benign prostatic hyperplasia with lower urinary tract symptoms; R33.8 Other retention of urine; I87.2 Venous insufficiency (chronic) (peripheral); E66.9 Obesity, unspecified; I08.0 Rheumatic disorders of both mitral and aortic valves; R74.0 Nonspecific elevation of levels of transaminase and lactic acid dehydrogenase [LDH]; K59.00 Constipation, unspecified; Y84.6 Urinary catheterization as the cause of abnormal reaction of the patient, or of later complication, without mention of misadventure at the time of the procedure; I25.2 Old myocardial infarction; Z71.3 Dietary counseling and surveillance; Z68.30 Body mass index [BMI] 30.0-30.9, adult; Z79.899 Other long term (current) drug therapy; Z79.01 Long term (current) use of anticoagulants; Z95.1 Presence of aortocoronary bypass graft; Z91.81 History of falling; Z90.49 Acquired absence of other specified parts of digestive tract; Z95.5 Presence of coronary angioplasty implant and graft; Z98.42 Cataract extraction status, left eye; Z98.41 Cataract extraction status, right eye; Z96.1 Presence of intraocular lens; Z87.440 Personal history of urinary (tract) infections; Z87.891 Personal history of nicotine dependence; Z86.19 Personal history of other infectious and parasitic diseases; Z95.828 Presence of other vascular implants and grafts; Z88.8 Allergy status to other drugs, medicaments and biological substances; Z82.49 Family history of ischemic heart disease and other diseases of the circulatory system
CPT/HCPCS: 36410; 36415; 71045; 71046; 71270; 73502; 74178; 76937; 80048; 80053; 80202; 81001; 82533; 83605; 83735; 85025; 85610; 85730; 87040; 87077; 87086; 87186; 90935; 93005; 93306; 94640; 94760; 96365; 99285

== ENCOUNTER 2020-05-16 08:25 | Inpatient (IN) | payer MEDICARE, BC ==
[2020-05-16] MEDS ORDERED: SODIUM CHLORIDE 0.9% 500 ML 500 ML IV STA (08:34)
--- NOTE | 2020-05-16 08:44 | ED ---
General Adult HPI - General Chief complaint: Extremity Problem,Nontraumatic Stated complaint: Pain and Edema Time Seen by Provider: 05/16/20 08:27 Source: patient, EMS, RN notes reviewed, old records reviewed Mode of arrival: EMS Limitations: physical limitation - History of Present Illness Initial comments: 80-year-old male patient who is on hemodialysis presents to ED for evaluation of petechiae on abdomen and back. Patient reports has been ongoing for about the last 4 days. Patient is anticoagulated on eliquis. Denies any falls or trauma. Denies any chest pain or shortness of breath. Systemic: Pt denies fatigue, fever/chills. Pt denies weakness, night sweats, weight loss. Neuro: Pt denies headache, visual disturbances, syncope or pre-syncope. HEENT: Pt denies ocular discharge or irritation, otalgia, rhinorrhea, pharyngitis or notable lymphadenopathy. Cardiopulmonary: Pt denies chest pain, SOB, heart palpitations, dyspnea on exertion. Abdominal/GI: Pt denies abdominal pain, n/v/d. : Pt denies dysuria, burning w/ urination, frequency/urgency. Denies new onset urinary or bowel incontinence. MSK: Pt denies myalgia, loss of strength or function in extremities. Neuro: Pt denies new onset weakness, paresthesias. - Related Data Home Medications Medication Instructions Recorded Confirmed Metoprolol Tartrate [Lopressor] 25 mg PO BID 02/08/19 04/07/20 Ferrous Sulfate [Iron (65 MG 325 mg PO DAILY 07/27/19 04/07/20 Elemental)] Ammonium Lactate Cream [Lac-Hydrin 1 applic TOPICAL BID PRN 10/30/19 04/07/20 12% Cream] Bacitracin Zinc Oint 1 applic TOPICAL BID PRN 10/30/19 04/07/20 Finasteride [Proscar] 5 mg PO DAILY 10/30/19 04/07/20 Albuterol Sulfate [Ventolin HFA] 2 puff INHALATION RT-Q4H PRN 12/26/19 04/07/20 Apixaban [Eliquis] 2.5 mg PO BID 04/07/20 04/07/20 Insulin Aspart [NovoLOG Flexpen] See Protocol SQ TID-W/MEALS 04/07/20 04/07/20 Melatonin 5 mg PO HS 04/07/20 04/07/20 Ondansetron [Zofran] 4 mg PO TID PRN 04/07/20 04/07/20 Rosuvastatin [Crestor] 10 mg PO DAILY 04/07/20 04/07/20 metOLazone 2.5 mg PO Q48H 04/07/20 04/07/20 Previous Rx's Medication Instructions Recorded Ascorbic Acid [Vitamin C] 500 mg PO BID-W/MEALS tab 12/20/18 Acetaminophen Tab [Tylenol] 500 mg PO Q6HR PRN tab 01/25/19 Insulin Glargine,Hum.rec.anlog 10 unit SQ DAILY #1 pen 11/05/19 [Lantus Solostar] Calcium Acetate [PhosLo] 667 mg PO TID-W/MEALS tab 01/12/20 Calcium Carbonate [Tums] 1,000 mg PO BID chew 01/12/20 Docusate [Colace] 100 mg PO DAILY PRN cap 01/12/20 Ergocalciferol [Vitamin D2 50,000 unit PO Q72H cap 01/12/20 (DRISDOL)] Pantoprazole [Protonix] 40 mg PO DAILY tablet. 01/12/20 Furosemide [Lasix] 80 mg PO BID@0900,1600 30 Days #60 04/15/20 tab Midodrine [ProAmatine] 10 mg PO AC-TID 30 Days #180 tab 04/15/20 Allergies Allergy/AdvReac Type Severity Reaction Status Date / Time atorvastatin [From Lipitor] AdvReac MUSCLE/JOINT Verified 04/07/20 15:12 PAIN Review of Systems ROS Statement: Those systems with pertinent positive or pertinent negative responses have been documented in the HPI. ROS Other: All systems not noted in ROS Statement are negative. Past Medical History Past Medical History: Atrial Fibrillation, Coronary Artery Disease (CAD), Heart Failure, Diabetes Mellitus, GERD/Reflux, Hyperlipidemia, Hypertension, Myocardial Infarction ([place]), Osteoarthritis (OA), Renal Disease, Vascular Disorder Additional Past Medical History / Comment(s): Pt recently admitted to [facility] on 01/16/19 with bilateral lower extremity cellulitis with multiple ulcers-positive for klebsiella/pseudomonas, uncontrolled diabetes, pleural effusion with R thoracentesis, exacerbation CHF. Other Hx: Paroxysmal Aflutter, PAD, chronic bilateral venous stasis dermatitis, lower extremety infection/blisters, chronic CHF, IDDM type II, BPH, post CABG urinary retention, CRD stage III, Last Myocardial Infarction Date:: 12/08/18 History of Any Multi-Drug Resistant Organisms: None Reported Past Surgical History: Appendectomy, Coronary Bypass/CABG, Heart Catheterization With Stent Additional Past Surgical History / Comment(s): 12/08/18 CABG 4 vessels, PCI with stents 2004, cardioversion for Aflutter, bilateral cataract removals/lens implants. Past Anesthesia/Blood Transfusion Reactions: No Reported Reaction Additional Past Anesthesia/Blood Transfusion Reaction / Comment(s): Pt received blood with CABG Date of Last Stent Placement:: 2004 Past Psychological History: No Psychological Hx Reported Past Alcohol Use History: None Reported Past Drug Use History: None Reported - Past Family History Mother Family Medical History: Myocardial Infarction ([place]) Additional Family Medical History / Comment(s): Mother had a RI at the age of 64 Father Additional Family Medical History / Comment(s): Father had mental health issues after a "bad" truck accident. General Exam - General Exam Comments Initial Comments: Constitutional: NAD, AOX3, Pt has pleasant affect. HEENT: NC/AT, trachea midline, neck supple, no lymphadenopathy. External ears appear normal, without discharge. Mucous membranes moist. Eyes PERRLA, EOM intact. There is no scleral icterus. No pallor noted. Cardiopulmonary: RRR, no murmurs, rubs or gallops, no JVD noted. Lungs CTAB in anterior and posterior vaughan. +1 peripheral edema. Abdominal exam: Abdomen soft and non-distended. Abdomen non-tender to palpation in all 4 quadrants. Bowel sounds active in LLQ. No hepatosplenomegaly. No ecchymosis Neuro: CN II-XII grossly intact. No nuchal rigidity. MSK: No posterior calf tenderness bilaterally, homans sign negative bilaterally. Derm: Diffuse petechiae noted on back, extremities. Limitations: physical limitation Course Vital Signs 05/16/20 08:28 Temperature 97.5 F L Pulse Rate 79 Respiratory 18 Rate Blood Pressure 95/71 O2 Sat by Pulse 100 Oximetry Medical Decision Making - Medical Decision Making 80-year-old male patient presents to ED for evaluation of petechiae. Patient has ESRD and hemodialysis. Patient reports that he went to dialysis today and they would not put him on the machine due to all the petechiae noted. Lin sharp investigations do reveal mildly increased PT INR and then a significant decreased APTT. This is being redrawn. Patient reports he has not had any apparent today. Patient be admitted for further evaluation. Case discussed with Dr. Riley. - Lab Data Result diagrams: 05/16/20 08:59 05/16/20 08:59 Lab Results 05/16/20 05/16/20 05/16/20 Range/Units 08:59 08:59 08:59 WBC 13.8 H (3.8-10.6) k/uL RBC 3.82 L (4.30-5.90) m/uL Hgb 10.2 L (13.0-17.5) gm/dL Hct 34.2 L (39.0-53.0) % MCV 89.7 (80.0-100.0) fL MCH 26.8 (25.0-35.0) pg MCHC 29.9 L (31.0-37.0) g/dL RDW 19.5 H (11.5-15.5) % Plt Count 230 (150-450) k/uL Neutrophils % 89 % Lymphocytes % 4 % Monocytes % 5 % Eosinophils % 1 % Basophils % 1 % Neutrophils # 12.3 H (1.3-7.7) k/uL Lymphocytes # 0.5 L (1.0-4.8) k/uL Monocytes # 0.7 (0-1.0) k/uL Eosinophils # 0.1 (0-0.7) k/uL Basophils # 0.1 (0-0.2) k/uL Hypochromasia Marked Anisocytosis Slight PT 13.9 H (9.0-12.0) sec INR 1.4 H (<1.2) APTT 149.1 H* (22.0-30.0) sec Fibrinogen 425 (200-500) mg/dL Sodium 135 L (137-145) mmol/L Potassium 5.2 H (3.5-5.1) mmol/L Chloride 94 L (98-107) mmol/L Carbon Dioxide 30 (22-30) mmol/L Anion Gap 11 mmol/L BUN 50 H (9-20) mg/dL Creatinine 3.88 H (0.66-1.25) mg/dL Est GFR (CKD-EPI)AfAm 16 (>60 ml/min/1.73 sqM) Est GFR (CKD-EPI)NonAf 14 (>60 ml/min/1.73 sqM) Glucose 90 (74-99) mg/dL Plasma Lactic Acid Gutierrez (0.7-2.0) mmol/L Calcium 8.5 (8.4-10.2) mg/dL Total Bilirubin 0.6 (0.2-1.3) mg/dL AST 58 (17-59) U/L ALT 92 H (4-49) U/L Alkaline Phosphatase 578 H (38-126) U/L Total Protein 6.6 (6.3-8.2) g/dL Albumin 3.4 L (3.5-5.0) g/dL Lipase 71 (23-300) U/L Blood Type Blood Type Recheck Bld Type Recheck Status Antibody Screen Spec Expiration Date 05/16/20 05/16/20 Range/Units 08:59 09:29 WBC (3.8-10.6) k/uL RBC (4.30-5.90) m/uL Hgb (13.0-17.5) gm/dL Hct (39.0-53.0) % MCV (80.0-100.0) fL MCH (25.0-35.0) pg MCHC (31.0-37.0) g/dL RDW (11.5-15.5) % Plt Count (150-450) k/uL Neutrophils % % Lymphocytes % % Monocytes % % Eosinophils % % Basophils % % Neutrophils # (1.3-7.7) k/uL Lymphocytes # (1.0-4.8) k/uL Monocytes # (0-1.0) k/uL Eosinophils # (0-0.7) k/uL Basophils # (0-0.2) k/uL Hypochromasia Anisocytosis PT (9.0-12.0) sec INR (<1.2) APTT (22.0-30.0) sec Fibrinogen (200-500) mg/dL Sodium (137-145) mmol/L Potassium (3.5-5.1) mmol/L Chloride (98-107) mmol/L Carbon Dioxide (22-30) mmol/L Anion Gap mmol/L BUN (9-20) mg/dL Creatinine (0.66-1.25) mg/dL Est GFR (CKD-EPI)AfAm (>60 ml/min/1.73 sqM) Est GFR (CKD-EPI)NonAf (>60 ml/min/1.73 sqM) Glucose (74-99) mg/dL Plasma Lactic Acid Gutierrez 1.4 (0.7-2.0) mmol/L Calcium (8.4-10.2) mg/dL Total Bilirubin (0.2-1.3) mg/dL AST (17-59) U/L ALT (4-49) U/L Alkaline Phosphatase (38-126) U/L Total Protein (6.3-8.2) g/dL Albumin (3.5-5.0) g/dL Lipase (23-300) U/L Blood Type O Positive Blood Type Recheck O Pos Bld Type Recheck Status No Antibody Screen NEGATIVE Spec Expiration Date 05/19/2020 - 2328 Disposition Clinical Impression: ESRD on hemodialysis, Petechiae Disposition: ADMITTED IP TO THIS [facility] Condition: Serious Is patient prescribed a controlled substance at d/c from ED?: No Referrals: [facility],Clinic [Primary Care Provider] - 1-2 days
[2020-05-16 09:10] LABS: Anisocytosis Slight; Basophils # (A) 0.1 k/uL (0-0.2); Basophils % (A) 1 %; Eosinophils # (A) 0.1 k/uL (0-0.7); Eosinophils % (A) 1 %; HCT 34.2 % (39.0-53.0); HGB 10.2 gm/dL (13.0-17.5); Hypochromasia Marked; Lymphocytes # (A) 0.5 k/uL (1.0-4.8); Lymphocytes % (A) 4 %; MCH 26.8 pg (25.0-35.0); MCHC 29.9 g/dL (31.0-37.0); MCV 89.7 fL (80.0-100.0); Mean Platelet Volume 6.9; Monocytes # (A) 0.7 k/uL (0-1.0); Monocytes % (A) 5 %; Neutrophils # (A) 12.3 k/uL (1.3-7.7); Neutrophils % (A) 89 %; Platelet Count 230 k/uL (150-450); RBC 3.82 m/uL (4.30-5.90); RDW 19.5 % (11.5-15.5); WBC 13.8 k/uL (3.8-10.6)
[2020-05-16 09:22] LABS: Albumin 3.4 g/dL (3.5-5.0); Calcium 8.5 mg/dL (8.4-10.2); Potassium 5.2 mmol/L (3.5-5.1); Total Bilirubin 0.6 mg/dL (0.2-1.3); Total Protein 6.6 g/dL (6.3-8.2)
--- NOTE | 2020-05-16 09:44 | XR ---
EXAMINATION TYPE: XR chest 2V DATE OF EXAM: 05/16/2020 COMPARISON: April 25 HISTORY: Shortness of breath TECHNIQUE: Frontal and lateral views of the chest are obtained. FINDINGS: Scattered senescent parenchymal changes noted. Hyperinflation compatible with COPD. Stable right-sided infiltrate and pleural effusion. Large bore central venous line unchanged. Heart size is stable. Mediastinal structures are stable and grossly unremarkable. No evidence for hilar prominence. Degenerative changes dorsal spine. IMPRESSION: 1. Stable right-sided infiltrate and pleural effusion.
[2020-05-16 10:03] LABS: INR 1.4 (<1.2); Prothrombin Time 13.9 sec (9.0-12.0)
[2020-05-16 10:08] LABS: Partial Thromboplastin Time 149.1 sec (22.0-30.0)
[2020-05-16] MEDS ORDERED: NALOXONE 0.4 MG/ML 1 ML VIAL IV PRN (10:47)
[2020-05-16 11:38] LABS: Glucose,Whole Blood 107 mg/dL (75-99)
[2020-05-16] MEDS ORDERED: MELATONIN 5 MG TABLET PO PRN (13:43)
[2020-05-16] MEDS ORDERED: BACITRACIN ZINC 500 UNIT/GM OINT 28.4 GM TUBE TOPICAL PRN (13:43)
[2020-05-16] MEDS ORDERED: AMMONIUM LACTATE 12% CREAM 140 GM TUBE TOPICAL PRN (13:43)
[2020-05-16] MEDS ORDERED: DOCUSATE 100 MG CAP PO PRN (13:43)
[2020-05-16] MEDS ORDERED: ONDANSETRON 4 MG TAB PO PRN (13:48)
--- NOTE | 2020-05-16 15:48 | P.HPIM ---
History of Present Illness 80-year-old male came in with the significant swelling in both legs well along with anasarca and petechiae in the abdomen and back. Patient has is petechia going on for about foot 14 days patient is an to correlated on Eliquis. Adriana wu's petechia appears to be secondary to platelet dysfunction rather than mass colitis. Eliquis will be held. Patient is supposed to undergo hemodialysis today and nephrology will be consulted for that. Review of Systems REVIEW OF SYSTEMS: CONSTITUTIONAL: No fever, no malaise, no fatigue. HEENT: No recent visual problems or hearing problems. Denied any sore throat. CARDIOVASCULAR: No chest pain, orthopnea, PND, no palpitations, no syncope. PULMONARY: No shortness of breath, no cough, no hemoptysis. GASTROINTESTINAL: No diarrhea, no nausea, no vomiting, no abdominal pain. NEUROLOGICAL: No headaches, no weakness, no numbness. HEMATOLOGICAL: Denies any bleeding or petechiae. GENITOURINARY: Denies any burning micturition, frequency, or urgency. MUSCULOSKELETAL/RHEUMATOLOGICAL: Denies any joint pain, swelling, or any muscle pain. ENDOCRINE: Denies any polyuria or polydipsia. The rest of the 14-point review of systems is negative. Past Medical History Past Medical History: Atrial Fibrillation, Coronary Artery Disease (CAD), Heart Failure, Diabetes Mellitus, GERD/Reflux, Hyperlipidemia, Hypertension, M yocardial Infarction ([place]), Osteoarthritis (OA), Renal Disease, Vascular Disorder Additional Past Medical History / Comment(s): Pt recently admitted to [facility] on 01/16/19 with bilateral lower extremity cellulitis with multiple ulcers-positive for klebsiella/pseudomonas, uncontrolled diabetes, pleural effusion with R thoracentesis, exacerbation CHF. Other Hx: Paroxysmal Aflutter, PAD, chronic bilateral venous stasis dermatitis, lower extremety infection/blisters, chronic CHF, IDDM type II, BPH, post CABG urinary retention, CRD stage III, Last Myocardial Infarction Date:: 12/08/18 History of Any Multi-Drug Resistant Organisms: None Reported Past Surgical History: Appendectomy, Coronary Bypass/CABG, Heart Catheterization With Stent Additional Past Surgical History / Comment(s): 12/08/18 CABG 4 vessels, PCI with stents 2004, cardioversion for Aflutter, bilateral cataract removals/lens implants. Past Anesthesia/Blood Transfusion Reactions: No Reported Reaction Additional Past Anesthesia/Blood Transfusion Reaction / Comment(s): Pt received blood with CABG Date of Last Stent Placement:: 2004 Past Psychological History: No Psychological Hx Reported Additional Psychological History / Comment(s): Single. No children. No pets. Remote tobacco use. No international travel since his experience. Worked on [employer] Smoking Status: Never smoker Past Alcohol Use History: None Reported Additional Past Alcohol Use History / Comment(s): Pt smoked for one month in 196 4. He quit drinking 1974 Past Drug Use History: None Reported - Past Family History Mother Family Medical History: Myocardial Infarction ([place]) Additional Family Medical History / Comment(s): Mother had a [place] at the age of 64 Father Additional Family Medical History / Comment(s): Father had mental health issues after a "bad" truck accident. Medications and Allergies Home Medications Medication Instructions Recorded Confirmed Type Ascorbic Acid [Vitamin C] 500 mg PO BID-W/MEALS tab 12/20/18 05/16/20 Rx Acetaminophen Tab [Tylenol] 500 mg PO Q6HR PRN tab 01/25/19 05/16/20 Rx Metoprolol Tartrate [Lopressor] 25 mg PO BID 02/08/19 05/16/20 History Ferrous Sulfate [Iron (65 MG 325 mg PO DAILY 07/27/19 05/16/20 History Elemental)] Ammonium Lactate Cream [Lac-Hydrin 1 applic TOPICAL BID PRN 10/30/19 05/16/20 History 12% Cream] Bacitracin Zinc Oint 1 applic TOPICAL BID PRN 10/30/19 05/16/20 History Finasteride [Proscar] 5 mg PO DAILY 10/30/19 05/16/20 History Insulin Glargine,Hum.rec.anlog 10 unit SQ DAILY #1 pen 11/05/19 05/16/20 Rx [Lantus Solostar] Albuterol Sulfate [Ventolin HFA] 2 puff INHALATION RT-Q4H PRN 12/26/19 05/16/20 History Calcium Acetate [PhosLo] 667 mg PO TID-W/MEALS tab 01/12/20 05/16/20 Rx Calcium Carbonate [Tums] 1,000 mg PO BID chew 01/12/20 05/16/20 Rx Docusate [Colace] 100 mg PO DAILY PRN cap 01/12/20 05/16/20 Rx Ergocalciferol [Vitamin D2 50,000 unit PO Q72H cap 01/12/20 05/16/20 Rx (DRISDOL)] Pantoprazole [Protonix] 40 mg PO DAILY tablet. 01/12/20 05/16/20 Rx Apixaban [Eliquis] 2.5 mg PO BID 04/07/20 05/16/20 History Insulin Aspart [NovoLOG Flexpen] See Protocol SQ TID-W/MEALS 04/07/20 05/16/20 History Melatonin 5 mg PO HS 04/07/20 05/16/20 History Ondansetron [Zofran] 4 mg PO TID PRN 04/07/20 05/16/20 History Rosuvastatin [Crestor] 10 mg PO DAILY 04/07/20 05/16/20 History metOLazone 2.5 mg PO Q48H 04/07/20 05/16/20 History Furosemide [Lasix] 80 mg PO BID@0900,1600 30 Days #60 04/15/20 05/16/20 Rx tab Midodrine [ProAmatine] 10 mg PO AC-TID 30 Days #180 tab 04/15/20 05/16/20 Rx Collagenase [Santyl] 1 applic TOPICAL DAILY 05/16/20 05/16/20 History Tamsulosin HCl [Flomax] 0.4 mg PO BID 05/16/20 05/16/20 History Allergies Allergy/AdvReac Type Severity Reaction Status Date / Time atorvastatin [From Lipitor] AdvReac MUSCLE/JOINT Verified 05/16/20 12:33 PAIN Physical Exam Vitals: Vital Signs Temp Pulse Pulse Resp BP BP Pulse Ox 05/16/20 13:44 18 05/16/20 13:30 98.2 F 74 20 114/59 99 05/16/20 12:00 79 18 129/75 98 05/16/20 11:30 74 18 124/74 99 05/16/20 11:00 68 18 119/85 98 05/16/20 10:30 72 18 124/91 98 05/16/20 10:00 70 18 140/91 100 05/16/20 09:30 70 18 130/81 99 05/16/20 09:00 62 18 95/71 100 05/16/20 08:31 98 05/16/20 08:28 97.5 F L 79 18 95/71 100 Intake and Output 05/16/20 05/16/20 05/16/20 06:59 14:59 22:59 Other: Weight 83.461 kg PHYSICAL EXAMINATION: GENERAL: The patient is alert and oriented x3, not in any acute distress. Well developed, well nourished. HEENT: Pupils are round and equally reacting to light. EOMI. No scleral icterus. No conjunctival pallor. Normocephalic, atraumatic. No pharyngeal erythema. No thyromegaly. CARDIOVASCULAR: S1 and S2 present. No murmurs, rubs, or gallops. PULMONARY: Chest is clear to auscultation, no wheezing or crackles. ABDOMEN: Soft, nontender, nondistended, normoactive bowel sounds. No palpable organomegaly. MUSCULOSKELETAL: No joint swelling or deformity. EXTREMITIES: No cyanosis, clubbing, does have significant pedal edema bilateral upper limb edema. NEUROLOGICAL: Gross neurological examination did not reveal any focal deficits. SKIN: His petechiae all over the lower abdomen and anti-her back. Face there are some bruises all over the body and skin breakdown Results CBC & Chem 7: 05/16/20 08:59 05/16/20 08:59 Labs: Abnormal Lab Results - Last 24 Hours (Table) 05/16/20 05/16/20 05/16/20 Range/Units 08:59 08:59 08:59 WBC 13.8 H (3.8-10.6) k/uL RBC 3.82 L (4.30-5.90) m/uL Hgb 10.2 L (13.0-17.5) gm/dL Hct 34.2 L (39.0-53.0) % MCHC 29.9 L (31.0-37.0) g/dL RDW 19.5 H (11.5-15.5) % Neutrophils # 12.3 H (1.3-7.7) k/uL Lymphocytes # 0.5 L (1.0-4.8) k/uL PT 13.9 H (9.0-12.0) sec INR 1.4 H (<1.2) APTT 149.1 H* (22.0-30.0) sec Sodium 135 L (137-145) mmol/L Potassium 5.2 H (3.5-5.1) mmol/L Chloride 94 L (98-107) mmol/L BUN 50 H (9-20) mg/dL Creatinine 3.88 H (0.66-1.25) mg/dL POC Glucose (mg/dL) (75-99) mg/dL ALT 92 H (4-49) U/L Alkaline Phosphatase 578 H (38-126) U/L Albumin 3.4 L (3.5-5.0) g/dL 05/16/20 05/16/20 Range/Units 11:27 11:35 WBC (3.8-10.6) k/uL RBC (4.30-5.90) m/uL Hgb (13.0-17.5) gm/dL Hct (39.0-53.0) % MCHC (31.0-37.0) g/dL RDW (11.5-15.5) % Neutrophils # (1.3-7.7) k/uL Lymphocytes # (1.0-4.8) k/uL PT (9.0-12.0) sec INR (<1.2) APTT 32.4 H (22.0-30.0) sec Sodium (137-145) mmol/L Potassium (3.5-5.1) mmol/L Chloride (98-107) mmol/L BUN (9-20) mg/dL Creatinine (0.66-1.25) mg/dL POC Glucose (mg/dL) 107 H (75-99) mg/dL ALT (4-49) U/L Alkaline Phosphatase (38-126) U/L Albumin (3.5-5.0) g/dL Thrombosis Risk Factor Assmnt - Choose All That Apply Any of the Below Risk Factors Present?: Yes Each Factor Represents 1 point: Obesity (BMI >25), Swollen legs (current) Other Risk Factors: Yes Each Risk Factor Represents 3 Points: Age 75 years or older Other congenital or acquired thrombophilia - If yes, enter type in comment: No Thrombosis Risk Factor Assessment Total Risk Factor Score: 5 Thrombosis Risk Factor Assessment Level: High Risk Assessment and Plan Plan: -Petechiae: Because the anticoagulation hold off and on Eliquis now. She doesn't appear to be have vasculitis. -End-stage renal disease: Patient is volume overloaded and anasarca is will need hemodialysis initial session of paralysis patient probably will undergo hemodialysis today -Right-sided pleural effusion which appears to be chronic -Congestive heart failure chronic systolic dysfunction EF of around 45% with possible acute exacerbation -Moderate mitral regurgitation -Aortic stenosis -Chronic A. fib on anti-correlation which is being temporally held because of petechiae. -Coronary artery disease -Type 2 diabetes mellitus -Hypertension -Hyperlipidemia For above-mentioned chronic medical problems patient will be resumed when appropriate home medications.
[2020-05-16 16:57] LABS: Glucose,Whole Blood 159 mg/dL (75-99)
[2020-05-16] MEDS: FUROSEMIDE 80 MG TAB PO SCH (17:18)
[2020-05-16] MEDS: CALCIUM ACETATE 667 MG TAB PO SCH (17:18)
[2020-05-16] MEDS: MIDODRINE 5 MG TAB PO SCH (17:18)
[2020-05-16] MEDS: INSULIN ASPART (NovoLOG) 100 UNIT/ML VIAL SQ SCH ×2 (17:19→21:39)
[2020-05-16] MEDS ORDERED: INSULIN ASPART (NovoLOG) 100 UNIT/ML VIAL SQ SCH (17:30)
[2020-05-16 21:21] LABS: Glucose,Whole Blood 107 mg/dL (75-99)
[2020-05-16] MEDS: TAMSULOSIN 0.4 MG CAP.ER.24H PO SCH (21:49)
[2020-05-16] MEDS: METOPROLOL TARTRATE 25 MG TAB PO SCH (21:49)
[2020-05-16] MEDS: CALCIUM CARBONATE 500 MG CHEWABLE PO SCH (21:49)
[2020-05-17 06:06] LABS: Hepatitis B Surface AB- Quant 3.5 mIU/mL; Hepatitis B Surface Antibody Non-Reactive (Non-Reactive); Hepatitis B Surface Antigen Non-Reactive (Non-Reactive)
[2020-05-17 07:23] LABS: Glucose,Whole Blood 279 mg/dL (75-99)
[2020-05-17] MEDS: INSULIN ASPART (NovoLOG) 100 UNIT/ML VIAL SQ SCH ×3 (07:59→16:58)
[2020-05-17] MEDS: INSULIN DETEMIR (LEVEMIR) 100 UNIT/ML SYR SQ SCH (07:59)
[2020-05-17] MEDS: FERROUS SULFATE 325 MG TAB PO SCH (08:00)
[2020-05-17] MEDS: MIDODRINE 5 MG TAB PO SCH ×3 (08:00→16:59)
[2020-05-17] MEDS: METOPROLOL TARTRATE 25 MG TAB PO SCH (08:00)
[2020-05-17] MEDS: FUROSEMIDE 80 MG TAB PO SCH (08:00)
[2020-05-17] MEDS: PANTOPRAZOLE 40 MG TABLET PO SCH (08:00)
[2020-05-17] MEDS: FINASTERIDE 5 MG TAB PO SCH (08:00)
[2020-05-17] MEDS: CALCIUM CARBONATE 500 MG CHEWABLE PO SCH ×2 (08:00→22:09)
[2020-05-17] MEDS: CALCIUM ACETATE 667 MG TAB PO SCH ×3 (08:00→16:59)
[2020-05-17] MEDS: TAMSULOSIN 0.4 MG CAP.ER.24H PO SCH ×2 (08:00→22:09)
[2020-05-17] MEDS: NON FORMULARY DRUG (Rosuvastatin 20 MG Tablet) PO SCH (08:02)
[2020-05-17] MEDS: COLLAGENASE 250 UNIT/GM OINTMENT 30 GM TUBE TOPICAL SCH (08:02)
--- NOTE | 2020-05-17 10:26 | P.NPCON ---
History of Present Illness - Reason for Consult end stage renal disease - History of Present Illness reason for consultation: End-stage renal disease History of present illness: Patient is a 80-year-old male seen in consultation for end-stage renal disease. He is maintained on hemodialysis on Wednesday schedule. Patient went to hemodialysis yesterday but was sent to the hospital due to abdominal pain. He did have hemodialysis while in the hospital. Currently he's quite tired and wants to sleep. Patient states his abdominal pain is improved compared to yesterday. No vomiting or diarrhea. Oral intake is fair. No chest pain or shortness of breath. he was also noted to have generalized petechiae. patient's hemoglobin is fairly stable. Platelet count normal. INR 1.4. does hav e edema in his lower extremities. patient has history of systolic CHF with ejection fraction of 40-45% with severe pulmonary hypertension. blood pressure stable. Denies any active bleeding. Vital signs are stable. General: The patient appeared well nourished and normally developed. HEENT: Head exam is unremarkable. Neck is without jugular venous distension. LUNGS: Lungs are clear to auscultation and percussion. Breath sounds decreased. HEART: Rate and Rhythm are regular. ABDOMEN: soft, nontender. EXTREMITITES: 2+ edema. generalized bruising and petechiae noted. Past Medical History Past Medical History: Atrial Fibrillation, Coronary Artery Disease (CAD), Heart Failure, Diabetes Mellitus, GERD/Reflux, Hyperlipidemia, Hypertension, Myocardial Infarction ([place]), Osteoarthritis (OA), Renal Disease, Vascular Disorder Additional Past Medical History / Comment(s): Pt recently admitted to [facility] on 01/16/19 with bilateral lower extremity cellulitis with multiple ulcers-positive for klebsiella/pseudomonas, uncontrolled diabetes, pleural effusion with R thoracentesis, exacerbation CHF. Other Hx: Paroxysmal Aflutter, PAD, chronic bilateral venous stasis dermatitis, lower extremety infection/blisters, chronic CHF, IDDM type II, BPH, post CABG urinary retention, CRD stage III, Last Myocardial Infarction Date:: 12/08/18 History of Any Multi-Drug Resistant Organisms: None Reported Past Surgical History: Appendectomy, Coronary Bypass/CABG, Heart Catheterization With Stent Additional Past Surgical History / Comment(s): 12/08/18 CABG 4 vessels, PCI with stents 2004, cardioversion for Aflutter, bilateral cataract removals/lens im plants. Past Anesthesia/Blood Transfusion Reactions: No Reported Reaction Additional Past Anesthesia/Blood Transfusion Reaction / Comment(s): Pt received blood with CABG Date of Last Stent Placement:: 2004 Past Psychological History: No Psychological Hx Reported Additional Psychological History / Comment(s): Single. No children. No pets. Remote tobacco use. No international travel since his experience. 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 He quit drinking 1973 Past Drug Use History: None Reported - Past Family History Mother Family Medical History: Myocardial Infarction ([place]) Additional Family Medical History / Comment(s): Mother had a [place] at the age of 64 Father Additional Family Medical History / Comment(s): Father had mental health issues after a "bad" truck accident. Medications and Allergies Home Medications Medication Instructions Recorded Confirmed Type Ascorbic Acid [Vitamin C] 500 mg PO BID-W/MEALS tab 12/20/18 05/16/20 Rx Acetaminophen Tab [Tylenol] 500 mg PO Q6HR PRN tab 01/25/19 05/16/20 Rx Metoprolol Tartrate [Lopressor] 25 mg PO BID 02/08/19 05/16/20 History Ferrous Sulfate [Iron (65 MG 325 mg PO DAILY 07/27/19 05/16/20 History Elemental)] Ammonium Lactate Cream [Lac-Hydrin 1 applic TOPICAL BID PRN 10/30/19 05/16/20 History 12% Cream] Bacitracin Zinc Oint 1 applic TOPICAL BID PRN 10/30/19 05/16/20 History Finasteride [Proscar] 5 mg PO DAILY 10/30/19 05/16/20 History Insulin Glargine,Hum.rec.anlog 10 unit SQ DAILY #1 pen 11/05/19 05/16/20 Rx [Lantus Solostar] Albuterol Sulfate [Ventolin HFA] 2 puff INHALATION RT-Q4H PRN 12/26/19 05/16/20 History Calcium Acetate [PhosLo] 667 mg PO TID-W/MEALS tab 01/12/20 05/16/20 Rx Calcium Carbonate [Tums] 1,000 mg PO BID chew 01/12/20 05/16/20 Rx Docusate [Colace] 100 mg PO DAILY PRN cap 01/12/20 05/16/20 Rx Ergocalciferol [Vitamin D2 50,000 unit PO Q72H cap 01/12/20 05/16/20 Rx (DRISDOL)] Pantoprazole [Protonix] 40 mg PO DAILY tablet. 01/12/20 05/16/20 Rx Apixaban [Eliquis] 2.5 mg PO BID 04/07/20 05/16/20 History Insulin Aspart [NovoLOG Flexpen] See Protocol SQ TID-W/MEALS 04/07/20 05/16/20 History Melatonin 5 mg PO HS 04/07/20 05/16/20 History Ondansetron [Zofran] 4 mg PO TID PRN 04/07/20 05/16/20 History Rosuvastatin [Crestor] 10 mg PO DAILY 04/07/20 05/16/20 History metOLazone 2.5 mg PO Q48H 04/07/20 05/16/20 History Furosemide [Lasix] 80 mg PO BID@0900,1600 30 Days #60 04/15/20 05/16/20 Rx tab Midodrine [ProAmatine] 10 mg PO AC-TID 30 Days #180 tab 04/15/20 05/16/20 Rx Collagenase [Santyl] 1 applic TOPICAL DAILY 05/16/20 05/16/20 History Tamsulosin HCl [Flomax] 0.4 mg PO BID 05/16/20 05/16/20 History Allergies Allergy/AdvReac Type Severity Reaction Status Date / Time atorvastatin [From Lipitor] AdvReac MUSCLE/JOINT Verified 05/16/20 12:33 PAIN Physical Exam Vitals: Vital Signs Temp Pulse Pulse Resp BP BP Pulse Ox 05/17/20 07:00 97.6 F 65 20 97/84 97 05/17/20 02:21 97.7 F 84 18 128/78 97 05/16/20 19:24 97.8 F 84 18 114/68 99 05/16/20 13:44 18 05/16/20 13:30 98.2 F 74 20 114/59 99 05/16/20 12:00 79 18 129/75 98 05/16/20 11:30 74 18 124/74 99 05/16/20 11:00 68 18 119/85 98 05/16/20 10:30 72 18 124/91 98 Intake and Output 05/16/20 05/17/20 05/17/20 22:59 06:59 14:59 Intake Total 240 Balance 240 Intake: Oral 240 Other: # Voids 1 0 Results - Lab Results Most recent lab results Calcium 8.5 mg/dL (8.4-10.2) 05/16/20 08:59 05/16/20 08:59 05/16/20 08:59 Assessment and Plan Plan: assessment: 1. End-stage renal disease maintained on hemodialysis on Wednesday schedule. 2. Volume overload. 3. Acute on chronic systolic CHF with ejection fraction of 40-45% with moderate tricuspid regurgitation and severe pulmonary hypertension. 4. Chronic kidney disease mineral bone disease maintained on PhosLo. 5. Diabetes mellitus. 6. Generalized petechiae. Unclear cause. Platelet count is normal. Hemoglobin is stable. INR 1.4. 7. Anemia of chronic kidney disease. Stable. Plan: Hemodialysis today mostly for ultrafiltration. Another treatment tomorrow per his outpatient schedule. Check ZOFIA and ANCA titers. Maintain oral Lasix. H for the consultation. I will continue to follow the patient with you during his hospital stay.
[2020-05-17 11:24] LABS: Glucose,Whole Blood 181 mg/dL (75-99)
[2020-05-17] MEDS ORDERED: QUEtiapine 25 MG TAB PO PRN (13:37)
[2020-05-17 14:18] VITALS: BMI 29.7
--- NOTE | 2020-05-17 15:08 | P.PN ---
Subjective 80-year-old male came in with the significant swelling in both legs well along with anasarca and petechiae in the abdomen and back. Patient has is petechia going on for about foot 14 days patient is an to correlated on Eliquis. Patient's petechia appears to be secondary to platelet dysfunction rather than mass colitis. Eliquis will be held. Patient is supposed to undergo hemodialysis today and nephrology will be consulted for that. 05/17/2020 Patient did receive hemodialysis as today and will undergo hemodialysis today. Patient's up HEENT remains the same all the etiology of petechia is not clear that his platelet count is within normal limits and patient is not severely uremic either. Patient has second-degree this ulcer and multiple skin breakdown patient will need local wound care infectious disease will be consulted and patient will need placement probably in a care home. Constitutional: Denied any fatigue denied any fever. Cardio vascular: denied any chest pain, palpitations Gastrointestinal denied any nausea vomiting Pulmonary: Denied any shortness of breath cough Neurologic denied any new focal deficits All inpatient medications were reviewed and appropriate changes in these medications as dictated in the interval history and assessment and plan. Objective - Vital Signs Vital signs: Vital Signs Temp 97.9 F 05/17/20 12:48 Pulse 82 05/17/20 12:48 Resp 16 05/17/20 12:48 BP 90/49 05/17/20 12:48 Pulse Ox 97 05/17/20 07:00 Intake & Output 05/16/20 05/17/20 05/17/20 18:59 06:59 18:59 Intake Total 240 Output Total 1999 Balance -1760 Weight 83.461 kg 83.461 kg Intake: Oral 240 Output: Hemodialysis 1999 Other: # Voids 0 - Exam PHYSICAL EXAMINATION: GENERAL: The patient is alert and oriented x3, not in any acute distress. Well developed, well nourished. HEENT: Pupils are round and equally reacting to light. EOMI. No scleral icterus. No conjunctival pallor. Normocephalic, atraumatic. No pharyngeal erythema. No thyromegaly. CARDIOVASCULAR: S1 and S2 present. No murmurs, rubs, or gallops. PULMONARY: Chest is clear to auscultation, no wheezing or crackles. ABDOMEN: Soft, nontender, nondistended, normoactive bowel sounds. No palpable organomegaly. MUSCULOSKELETAL: No joint swelling or deformity. EXTREMITIES: No cyanosis, clubbing, does have significant pedal edema bilateral upper limb edema. NEUROLOGICAL: Gross neurological examination did not reveal any focal deficits. SKIN: His petechiae all over the lower abdomen and anti-her back. Face there are some bruises all over the body and skin breakdown. He does have a second- degree results are as well. - Labs CBC & Chem 7: 05/16/20 08:59 05/16/20 08:59 Labs: Abnormal Lab Results - Last 24 Hours (Table) 05/16/20 05/16/20 05/17/20 Range/Units 16:36 21:18 07:07 POC Glucose (mg/dL) 159 H 107 H 279 H (75-99) mg/dL 05/17/20 Range/Units 11:23 POC Glucose (mg/dL) 181 H (75-99) mg/dL Assessment and Plan Plan: -Petechiae: Because the anticoagulation hold off and on Eliquis now. She doesn't appear to be have vasculitis. Platelet count is within normal limits. Patient is not uremic -End-stage renal disease: Patient is volume overloaded and anasarca is will need hemodialysis initial session of paralysis patient had hemodialysis yesterday will undergo hemodialysis today. -Second echo results are local wound care, infectious disease will be consulted -Right-sided pleural effusion which appears to be chronic -Congestive heart failure chronic systolic dysfunction EF of around 45% with possible acute exacerbation -Moderate mitral regurgitation -Aortic stenosis -Chronic A. fib on anti-coagulation which is being temporally held because of petechiae. -Coronary artery disease -Type 2 diabetes mellitus -Hypertension -Hyperlipidemia -Patient will need to be placed in a long-term facility For above-mentioned chronic medical problems patient will be resumed when appropriate home medications.
[2020-05-17 16:57] LABS: Glucose,Whole Blood 155 mg/dL (75-99)
[2020-05-17 20:34] LABS: Hemoglobin A1C 6.5 % (4.0-6.0)
[2020-05-17 21:10] LABS: Glucose,Whole Blood 109 mg/dL (75-99)
--- NOTE | 2020-05-17 23:55 | P.CONS ---
History of Present Illness - Reason for Consult Consult date: 05/17/20 Bilateral lower extremity wound Requesting physician: Mark Oglesby - Chief Complaint Multiple wounds to the lower extremity x weeks - History of Present Illness Patient is a 80-year-old male with a past medical history significant for end-stage renal disease on hemodialysis Wednesday to and Wednesday, and this patient was noticed to have petechiae on the abdominal and the upper extremity for the patient was sent back to the ER yesterday for evaluation and management of patient has been evaluated by admitting team and thought this is related to Aquacel she'll be put on hold patient also has noticed to have multiple pressure ulcer and wounds to the lower extremity for his infection is was consented today for further management, patient mentioned he has this wound for months now he did have bilateral heel pressure ulcer with necrotic base the patient is complaining of pain to bilateral hazy to the warfarin or leaking 4- 01/13 and no radiation currently denies significant swelling redness or any drainage, patient also have multiple wounds to the right lateral leg area patient not clear how this started did have some dull aching pain to those wounds with no surrounding swelling redness did have some clear drainage no foul-smelling patient did have a mildly elevated white count 13,000 on admission however no fever has been recorded and the patient is not clear about the Local care he has been provided to his wounds or who is taking care of his wounds in outpatient setting Review of Systems Positive point has been mentioned in the HPI rest of the systems are negative Past Medical History Past Medical History: Atrial Fibrillation, Coronary Artery Disease (CAD), Heart Failure, Diabetes Mellitus, GERD/Reflux, Hyperlipidemia, Hypertension, Myocardial Infarction ([place]), Osteoarthritis (OA), Renal Disease, Vascular Disorder Additional Past Medical History / Comment(s): Pt recently admitted to [facility] on 01/16/19 with bilateral lower extremity cellulitis with multiple ulcers-positive for klebsiella/pseudomonas, uncontrolled diabetes, pleural effusion with R thoracentesis, exacerbation CHF. Other Hx: Paroxysmal Aflutter, PAD, chronic bilateral venous stasis dermatitis, lower extremety infection/blisters, chronic CHF, IDDM type II, BPH, post CABG urinary retention, CRD stage III, Last Myocardial Infarction Date:: 12/08/18 History of Any Multi-Drug Resistant Organisms: None Reported Past Surgical History: Appendectomy, Coronary Bypass/CABG, Heart Catheterization With Stent Additional Past Surgical History / Comment(s): 12/08/18 CABG 4 vessels, PCI with stents 2004, cardioversion for Aflutter, bilateral cataract removals/lens implants. Past Anesthesia/Blood Transfusion Reactions: No Reported Reaction Additional Past Anesthesia/Blood Transfusion Reaction / Comm: Pt received blood with CABG Date of Last Stent Placement:: 2004 Past Psychological History: No Psychological Hx Reported Additional Psychological History / Comment(s): Single. No children. No pets. Remote tobacco use. No international travel since his experience. Worked on [employer] Smoking Status: Never smoker Past Alcohol Use History: None Reported Additional Past Alcohol Use History / Comment(s): Pt smoked for one month in 1963. He quit drinking 1973 Past Drug Use History: None Reported - Past Family History Mother Family Medical History: Myocardial Infarction ([place]) Additional Family Medical History / Comment(s): Mother had a [place] at the age of 64 Father Additional Family Medical History / Comment(s): Father had mental health issues after a "bad" truck accident. Medications and Allergies Home Medications Medication Instructions Recorded Confirmed Type Ascorbic Acid [Vitamin C] 500 mg PO BID-W/MEALS tab 12/20/18 05/16/20 Rx Acetaminophen Tab [Tylenol] 500 mg PO Q6HR PRN tab 01/25/19 05/16/20 Rx Metoprolol Tartrate [Lopressor] 25 mg PO BID 02/08/19 05/16/20 History Ferrous Sulfate [Iron (65 MG 325 mg PO DAILY 07/27/19 05/16/20 History Elemental)] Ammonium Lactate Cream [Lac-Hydrin 1 applic TOPICAL BID PRN 10/30/19 05/16/20 History 12% Cream] Bacitracin Zinc Oint 1 applic TOPICAL BID PRN 10/30/19 05/16/20 History Finasteride [Proscar] 5 mg PO DAILY 10/30/19 05/16/20 History Insulin Glargine,Hum.rec.anlog 10 unit SQ DAILY #1 pen 11/05/19 05/16/20 Rx [Lantus Solostar] Albuterol Sulfate [Ventolin HFA] 2 puff INHALATION RT-Q4H PRN 12/26/19 05/16/20 History Calcium Acetate [PhosLo] 667 mg PO TID-W/MEALS tab 01/12/20 05/16/20 Rx Calcium Carbonate [Tums] 1,000 mg PO BID chew 01/12/20 05/16/20 Rx Docusate [Colace] 100 mg PO DAILY PRN cap 01/12/20 05/16/20 Rx Ergocalciferol [Vitamin D2 50,000 unit PO Q72H cap 01/12/20 05/16/20 Rx (DRISDOL)] Pantoprazole [Protonix] 40 mg PO DAILY tablet. 01/12/20 05/16/20 Rx Apixaban [Eliquis] 2.5 mg PO BID 04/07/20 05/16/20 History Insulin Aspart [NovoLOG Flexpen] See Protocol SQ TID-W/MEALS 04/07/20 05/16/20 History Melatonin 5 mg PO HS 04/07/20 05/16/20 History Ondansetron [Zofran] 4 mg PO TID PRN 04/07/20 05/16/20 History Rosuvastatin [Crestor] 10 mg PO DAILY 04/07/20 05/16/20 History metOLazone 2.5 mg PO Q48H 04/07/20 05/16/20 History Furosemide [Lasix] 80 mg PO BID@0900,1600 30 Days #60 04/15/20 05/16/20 Rx tab Midodrine [ProAmatine] 10 mg PO AC-TID 30 Days #180 tab 04/15/20 05/16/20 Rx Collagenase [Santyl] 1 applic TOPICAL DAILY 05/16/20 05/16/20 History Tamsulosin HCl [Flomax] 0.4 mg PO BID 05/16/20 05/16/20 History Allergies Allergy/AdvReac Type Severity Reaction Status Date / Time atorvastatin [From Lipitor] AdvReac MUSCLE/JOINT Verified 05/16/20 12:33 PAIN Physical Exam Vitals: Vital Signs Temp Pulse Resp BP Pulse Ox 05/17/20 12:48 97.9 F 82 16 90/49 05/17/20 07:00 97.6 F 65 20 97/84 97 05/17/20 02:21 97.7 F 84 18 128/78 97 05/16/20 19:24 97.8 F 84 18 114/68 99 Intake and Output 05/17/20 05/17/20 05/17/20 06:59 14:59 22:59 Intake Total 240 Output Total 1999 Balance -1760 Intake: Oral 240 Output: Hemodialysis 1999 Other: # Voids 0 Weight 83.461 kg GENERAL DESCRIPTION: An elderly male lying in bed, no distress. No tachypnea or accessory muscle of respiration use. HEENT: Shows Pallor , no scleral icterus. Oral mucous membrane is dry. No pharyngeal erythema or thrush NECK: Trachea central, no thyromegaly. LUNGS: Unlabored breathing. Clear to auscultation anteriorly. No wheeze or crackle. HEART: S1, S2, regular rate and rhythm. No loud murmur ABDOMEN: Soft, no tenderness , guarding or rigidity, no organomegaly EXTREMITIES: Bilateral heel pressure ulcer unstageable as there is necrotic cy ck escher but no surrounding swelling redness or any foul-smelling drainage, patient right lateral leg did have multiple ulcers. No significant slough tissue surrounding swelling redness or drainage SKIN: Mild petechial rash to the lower abdominal area, no masses palpable. NEUROLOGICAL: The patient is awake, alert, oriented x3, mood and affect normal. Results CBC & Chem 7: 05/16/20 08:59 05/16/20 08:59 Labs: Abnormal Lab Results - Last 24 Hours (Table) 05/16/20 05/16/20 05/17/20 Range/Units 16:36 21:18 07:07 POC Glucose (mg/dL) 159 H 107 H 279 H (75-99) mg/dL 05/17/20 Range/Units 11:23 POC Glucose (mg/dL) 181 H (75-99) mg/dL Assessment and Plan Assessment: 1- patient with bilateral heel unstageable pressure ulcer and no evidence of any cellulitis 2-right lateral leg multiple laceration possible pressure related with evidence of any cellulitis 3-mild leukocytosis possible reactive versus related to his multiple pressure ulcer (1) Pressure ulcer of both heels, unstageable Current Visit: Yes Status: Acute Code(s): L89.610 - PRESSURE ULCER OF RIGHT HEEL, UNSTAGEABLE; L89.620 - PRESSURE ULCER OF LEFT HEEL, UNSTAGEABLE SNOMED Code(s): 581698312 (2) Wound of right lower extremity Current Visit: Yes Status: Acute Code(s): S81.801A - UNSPECIFIED OPEN WOUND, RIGHT LOWER LEG, INITIAL ENCOUNTER SNOMED Code(s): 803880065 Plan: 1- we will advise local wound care to bilateral heel wound with a dry protective dressing and heel protector 2-local wound care to the right lateral leg wound with dry Aquacel silver dressing and Kerlix to change every 24 48 hour No need for systemic antibiotic therapy We will follow on clinical condition and cultures to further adjust medication if needed Thank you for this consultation will follow this patient with you Time with Patient: Greater than 30
[2020-05-18] MEDS: FUROSEMIDE 80 MG TAB PO SCH ×4 (03:15→12:49)
[2020-05-18] MEDS: INSULIN ASPART (NovoLOG) 100 UNIT/ML VIAL SQ SCH ×5 (03:15→21:50)
[2020-05-18] MEDS: METOPROLOL TARTRATE 25 MG TAB PO SCH ×2 (03:16→08:46)
[2020-05-18 07:37] LABS: Glucose,Whole Blood 202 mg/dL (75-99)
[2020-05-18] MEDS: ERGOCALCIFEROL 50,000 UNIT CAP PO SCH (08:42)
[2020-05-18] MEDS: FERROUS SULFATE 325 MG TAB PO SCH (08:42)
[2020-05-18] MEDS: CALCIUM CARBONATE 500 MG CHEWABLE PO SCH ×2 (08:42→21:37)
[2020-05-18] MEDS: MIDODRINE 5 MG TAB PO SCH ×3 (08:42→17:37)
[2020-05-18] MEDS: FINASTERIDE 5 MG TAB PO SCH (08:42)
[2020-05-18] MEDS: INSULIN DETEMIR (LEVEMIR) 100 UNIT/ML SYR SQ SCH (08:42)
[2020-05-18] MEDS: CALCIUM ACETATE 667 MG TAB PO SCH ×3 (08:42→17:37)
[2020-05-18] MEDS: COLLAGENASE 250 UNIT/GM OINTMENT 30 GM TUBE TOPICAL SCH (08:47)
[2020-05-18] MEDS: NON FORMULARY DRUG (Rosuvastatin 20 MG Tablet) PO SCH (08:47)
[2020-05-18] MEDS: TAMSULOSIN 0.4 MG CAP.ER.24H PO SCH ×2 (08:47→21:37)
[2020-05-18] MEDS: PANTOPRAZOLE 40 MG TABLET PO SCH (08:47)
--- NOTE | 2020-05-18 10:02 | P.PN ---
Subjective patient is seen in follow-up for her incisional disease. He is maintained on hemodialysis on Wednesday schedule. Had an extra hemodialysis treatment yesterday most of her fluid overload. Denies chest pain or shortness of breath. Awake and alert. Vital signs are stable. General: The patient appeared well nourished and normally developed. HEENT: Head exam is unremarkable. Neck is without jugular venous distension. LUNGS: Breath sounds decreased. HEART: Rate and Rhythm are regular. ABDOMEN: soft, nontender. Petechiae noted. EXTREMITITES: 2+ edema. Objective - Vital Signs Vital signs: Vital Signs Temp 97.9 F 05/18/20 07:00 Pulse 82 05/18/20 07:00 Resp 18 05/18/20 07:00 BP 98/56 05/18/20 07:00 Pulse Ox 97 05/18/20 07:00 Intake & Output 05/17/20 05/18/20 05/18/20 18:59 06:59 18:59 Intake Total 240 300 Output Total 1999 75 Balance -1760 225 Weight 83.461 kg Intake: Oral 240 300 Output: Urine 75 Hemodialysis 1999 Other: Voiding Method Indwelling Catheter # Voids 1 - Labs CBC & Chem 7: 05/16/20 08:59 05/16/20 08:59 Labs: Abnormal Lab Results - Last 24 Hours (Table) 05/17/20 05/17/20 05/17/20 Range/Units 11:23 12:02 16:53 POC Glucose (mg/dL) 181 H 155 H (75-99) mg/dL Hemoglobin A1c 6.5 H (4.0-6.0) % 05/17/20 05/18/20 Range/Units 21:08 07:06 POC Glucose (mg/dL) 109 H 202 H (75-99) mg/dL Hemoglobin A1c (4.0-6.0) % Assessment and Plan Plan: assessment: 1. End-stage renal disease maintained on hemodialysis on Wednesday schedule. 2. Volume overload. 3. Acute on chronic systolic CHF with ejection fraction of 40-45% with moderate tricuspid regurgitation and severe pulmonary hypertension. 4. Chronic kidney disease mineral bone disease maintained on PhosLo. 5. Diabetes mellitus. 6. Generalized petechiae. Unclear cause. Platelet count is normal. Hemoglobin is stable. INR 1.4. ZOFIA negative. 7. Anemia of chronic kidney disease. Stable. 8. Lower extremity wounds. Infectious disease following. Plan: Hemodialysis today. follow-up ANCA titers. Maintain oral Lasix.
[2020-05-18 12:16] LABS: Glucose,Whole Blood 274 mg/dL (75-99)
--- NOTE | 2020-05-18 13:13 | P.PN ---
Subjective 80-year-old male came in with the significant swelling in both legs well along with anasarca and petechiae in the abdomen and back. Patient has is petechia going on for about foot 14 days patient is an to correlated on Eliquis. Patient's petechia appears to be secondary to platelet dysfunction rather than mass colitis. Eliquis will be held. Patient is supposed to undergo hemodialysis today and nephrology will be consulted for that. 05/17/2020 Patient did receive hemodialysis as today and will undergo hemodialysis today. Patient's up HEENT remains the same all the etiology of petechia is not clear that his platelet count is within normal limits and patient is not severely uremic either. Patient has second-degree this ulcer and multiple skin breakdown patient will need local wound care infectious disease will be consulted and patient will need placement probably in a long-term. 05/18/2020 No overnight events patient blood pressure is bit low. Patient probably will be discharged to subacute rehabitation Constitutional: Denied any fatigue denied any fever. Cardio vascular: denied any chest pain, palpitations Gastrointestinal denied any nausea vomiting Pulmonary: Denied any shortness of breath cough Neurologic denied any new focal deficits All inpatient medications were reviewed and appropriate changes in these medica tions as dictated in the interval history and assessment and plan. Objective - Vital Signs Vital signs: Vital Signs Temp 97.9 F 05/18/20 07:00 Pulse 82 05/18/20 08:25 Resp 18 05/18/20 08:25 BP 98/56 05/18/20 07:00 Pulse Ox 97 05/18/20 07:00 Intake & Output 05/17/20 05/18/20 05/18/20 18:59 06:59 18:59 Intake Total 240 300 Output Total 2000 75 Balance -1760 225 Weight 83.461 kg Intake: Oral 240 300 Output: Urine 75 Hemodialysis 1999 Other: Voiding Method Indwelling Catheter Indwelling Catheter # Voids 1 - Exam PHYSICAL EXAMINATION: GENERAL: The patient is alert and oriented x3, not in any acute distress. Well developed, well nourished. HEENT: Pupils are round and equally reacting to light. EOMI. No scleral icterus. No conjunctival pallor. Normocephalic, atraumatic. No pharyngeal erythema. No thyromegaly. CARDIOVASCULAR: S1 and S2 present. No murmurs, rubs, or gallops. PULMONARY: Chest is clear to auscultation, no wheezing or crackles. ABDOMEN: Soft, nontender, nondistended, normoactive bowel sounds. No palpable organomegaly. MUSCULOSKELETAL: No joint swelling or deformity. EXTREMITIES: No cyanosis, clubbing, does have significant pedal edema bilateral upper limb edema. NEUROLOGICAL: Gross neurological examination did not reveal any focal deficits. SKIN: His petechiae all over the lower abdomen and anti-her back. Face there are some bruises all over the body and skin breakdown. He does have a second- degree results are as well. - Labs CBC & Chem 7: 05/16/20 08:59 05/16/20 08:59 Labs: Abnormal Lab Results - Last 24 Hours (Table) 05/17/20 05/17/20 05/17/20 Range/Units 12:02 16:53 21:08 POC Glucose (mg/dL) 155 H 109 H (75-99) mg/dL Hemoglobin A1c 6.5 H (4.0-6.0) % 05/18/20 05/18/20 Range/Units 07:06 12:07 POC Glucose (mg/dL) 202 H 274 H (75-99) mg/dL Hemoglobin A1c (4.0-6.0) % Assessment and Plan Plan: -Petechiae: Because the anticoagulation hold off and on Eliquis now. She doesn't appear to be have vasculitis. Platelet count is within normal limits. Patient is not uremic -End-stage renal disease: Patient is volume overloaded and anasarca is will need hemodialysis initial session of paralysis patient had hemodialysis yesterday and is undergoing hemodialysis today. -Second echo results are local wound care, infectious disease will be consulted -Right-sided pleural effusion which appears to be chronic -Congestive heart failure chronic systolic dysfunction EF of around 45% with possible acute exacerbation -Moderate mitral regurgitation -Aortic stenosis -Chronic A. fib on anti-coagulation which is being temporally held because of petechiae. -Coronary artery disease -Type 2 diabetes mellitus -Hypertension -Hyperlipidemia -Patient will need to be placed in a long-term facility For above-mentioned chronic medical problems patient will be resumed when appropriate home medications.
[2020-05-18 16:56] LABS: Glucose,Whole Blood 164 mg/dL (75-99)
--- NOTE | 2020-05-18 18:01 | PN ---
PROGRESS NOTE DATE OF SERVICE: 05/18/2020 REASON FOR FOLLOWUP: Bilateral heel pressure ulcer and right lower extremity wound. INTERVAL HISTORY: Patient is currently afebrile, has been breathing comfortably. Denies having any chest pain. No shortness of breath or cough. He is complaining of feeling weak and tired. No abdominal pain or diarrhea. PHYSICAL EXAMINATION: Blood pressure is 92/47 with a pulse of 80, temperature 97.5. He is 99% on 3 L nasal cannula. General description is an elderly male lying in bed in no distress. Respiratory system: Unlabored breathing, clear to auscultation anteriorly. Heart S1, S2. Regular rate and rhythm. Abdomen soft, no tenderness. Legs: Wounds currently dressed, no drainage on the dressing. LABS: No new labs have been obtained today. DIAGNOSTIC IMPRESSION AND PLAN: 1. Patient with bilateral heel pressure ulcer on surgical local care with dry dressing and keep the area off pressure with ( ) boots. 2. Right lower extremity wound. Local care with dry Aquacel dressing. Keep the area dry and off the pressure. No need for systemic antibiotic therapy. MMODL / IJN: [id number] /
[2020-05-18 20:06] LABS: Glucose,Whole Blood 125 mg/dL (75-99)
[2020-05-19] MEDS: METOPROLOL TARTRATE 25 MG TAB PO SCH ×2 (03:09→10:01)
[2020-05-19] MEDS: NON FORMULARY DRUG (Rosuvastatin 20 MG Tablet) PO SCH (06:49)
[2020-05-19] MEDS: COLLAGENASE 250 UNIT/GM OINTMENT 30 GM TUBE TOPICAL SCH (06:49)
[2020-05-19 07:01] LABS: Glucose,Whole Blood 180 mg/dL (75-99)
[2020-05-19] MEDS: CALCIUM ACETATE 667 MG TAB PO SCH ×3 (07:56→16:49)
[2020-05-19] MEDS: MIDODRINE 5 MG TAB PO SCH ×3 (07:56→16:49)
[2020-05-19] MEDS: FINASTERIDE 5 MG TAB PO SCH (07:56)
[2020-05-19] MEDS: CALCIUM CARBONATE 500 MG CHEWABLE PO SCH ×2 (07:56→21:31)
[2020-05-19] MEDS: PANTOPRAZOLE 40 MG TABLET PO SCH (07:56)
[2020-05-19] MEDS: FERROUS SULFATE 325 MG TAB PO SCH (07:56)
[2020-05-19] MEDS: TAMSULOSIN 0.4 MG CAP.ER.24H PO SCH ×2 (07:56→21:31)
[2020-05-19] MEDS: INSULIN ASPART (NovoLOG) 100 UNIT/ML VIAL SQ SCH ×4 (07:57→21:33)
[2020-05-19] MEDS: INSULIN DETEMIR (LEVEMIR) 100 UNIT/ML SYR SQ SCH (07:57)
[2020-05-19 08:06] LABS: Calcium 8.3 mg/dL (8.4-10.2)
[2020-05-19] MEDS: FUROSEMIDE 80 MG TAB PO SCH ×2 (10:02→11:56)
--- NOTE | 2020-05-19 10:11 | P.PN ---
Subjective patient is seen in follow-up for her incisional disease. He is maintained on hemodialysis on Wednesday schedule. tolerated dialysis yesterday with 3 L ultrafiltration. Denies chest pain or shortness of breath. Awake and alert. Vital signs are stable. General: The patient appeared well nourished and normally developed. HEENT: Head exam is unremarkable. Neck is without jugular venous distension. LUNGS: Breath sounds decreased. HEART: Rate and Rhythm are regular. ABDOMEN: soft, nontender. Petechiae noted. EXTREMITITES: 2+ edema. Objective - Vital Signs Vital signs: Vital Signs Temp 98.2 F 05/19/20 07:00 Pulse 84 05/19/20 07:00 Resp 17 05/19/20 07:00 BP 94/57 05/19/20 07:00 Pulse Ox 99 05/19/20 07:00 Intake & Output 05/18/20 05/19/20 05/19/20 18:59 06:59 18:59 Intake Total 400 600 Output Total 3000 25 Balance -2600 575 Intake: Oral 400 600 Output: Urine 25 Hemodialysis 3000 Other: Voiding Method Indwelling Catheter Indwelling Catheter Indwelling Catheter # Voids 1 # Bowel Movements 1 - Labs CBC & Chem 7: 05/16/20 08:59 05/19/20 07:32 Labs: Abnormal Lab Results - Last 24 Hours (Table) 05/18/20 05/18/20 05/18/20 Range/Units 12:07 16:53 20:04 BUN (9-20) mg/dL Creatinine (0.66-1.25) mg/dL Glucose (74-99) mg/dL POC Glucose (mg/dL) 274 H 164 H 125 H (75-99) mg/dL Calcium (8.4-10.2) mg/dL 05/19/20 05/19/20 Range/Units 06:55 07:32 BUN 35 H (9-20) mg/dL Creatinine 3.03 H (0.66-1.25) mg/dL Glucose 173 H (74-99) mg/dL POC Glucose (mg/dL) 180 H (75-99) mg/dL Calcium 8.3 L (8.4-10.2) mg/dL Assessment and Plan Plan: assessment: 1. End-stage renal disease maintained on hemodialysis on Wednesday schedule. 2. Volume overload. improving with ultrafiltration. 3. Acute on chronic systolic CHF with ejection fraction of 40-45% with moderate tricuspid regurgitation and severe pulmonary hypertension. 4. Chronic kidney disease mineral bone disease maintained on PhosLo. 5. Diabetes mellitus. 6. Generalized petechiae. Unclear cause. Platelet count is normal. Hemoglobin is stable. INR 1.4. ZOFIA negative. 7. Anemia of chronic kidney disease. Stable. 8. Lower extremity wounds. Infectious disease following. Plan: extra hemodialysis treatment tomorrow. follow-up ANCA titers. Maintain oral Lasix. will need to follow-up with dermatology outpatient.
--- NOTE | 2020-05-19 10:14 | P.PN ---
Subjective 80-year-old male came in with the significant swelling in both legs well along with anasarca and petechiae in the abdomen and back. Patient has is petechia going on for about foot 14 days patient is an to correlated on Eliquis. Patient's petechia appears to be secondary to platelet dysfunction rather than mass colitis. Eliquis will be held. Patient is supposed to undergo hemodialysis today and nephrology will be consulted for that. 05/17/2020 Patient did receive hemodialysis as today and will undergo hemodialysis today. Patient's up HEENT remains the same all the etiology of petechia is not clear that his platelet count is within normal limits and patient is not severely uremic either. Patient has second-degree this ulcer and multiple skin breakdown patient will need local wound care infectious disease will be consulted and patient will need placement probably in a senior care. 05/18/2020 No overnight events patient blood pressure is bit low. Patient probably will be discharged to subacute rehabitation 03/18/2020 Etiology of petechia still not clear, patient will be resumed on Eliquis and will monitor the patient. Patient looks much better now much less volume overloaded patient will undergo hemodialysis today as well as a new was obtained because of the purpura any is negative hepatitis panel is negative. Patient may need biopsy as an outpatient for these purpuric lesions as etiology is not clear and may need follow-up with rheumatology as well. Constitutional: Denied any fatigue denied any fever. Cardio vascular: denied any chest pain, palpitations Gastrointestinal denied any nausea vomiting Pulmonary: Denied any shortness of breath cough Neurologic denied any new focal deficits All inpatient medications were reviewed and appropriate changes in these medications as dictated in the interval history and assessment and plan. Objective - Vital Signs Vital signs: Vital Signs Temp 98.2 F 05/19/20 07:00 Pulse 84 05/19/20 07:00 Resp 17 05/19/20 07:00 BP 94/57 05/19/20 07:00 Pulse Ox 99 05/19/20 07:00 Intake & Output 05/18/20 05/19/20 05/19/20 18:59 06:59 18:59 Intake Total 400 600 Output Total 3000 25 Balance -2600 575 Intake: Oral 400 600 Output: Urine 25 Hemodialysis 3000 Other: Voiding Method Indwelling Catheter Indwelling Catheter Indwelling Catheter # Voids 1 # Bowel Movements 1 - Exam PHYSICAL EXAMINATION: GENERAL: The patient is alert and oriented x3, not in any acute distress. Well developed, well nourished. Patient looks much better and feels much better since admission HEENT: Pupils are round and equally reacting to light. EOMI. No scleral icterus. No conjunctival pallor. Normocephalic, atraumatic. No pharyngeal erythema. No thyromegaly. CARDIOVASCULAR: S1 and S2 present. No murmurs, rubs, or gallops. PULMONARY: Chest is clear to auscultation, no wheezing or crackles. ABDOMEN: Soft, nontender, nondistended, normoactive bowel sounds. No palpable organomegaly. MUSCULOSKELETAL: No joint swelling or deformity. EXTREMITIES: No cyanosis, clubbing, edema significant improved NEUROLOGICAL: Gross neurological examination did not reveal any focal deficits. SKIN: His petechiae all over the lower abdomen and anti-her back. Face there are some bruises all over the body and skin breakdown. He does have a second- degree results are as well. - Labs CBC & Chem 7: 05/16/20 08:59 05/19/20 07:32 Labs: Abnormal Lab Results - Last 24 Hours (Table) 05/18/20 05/18/20 05/18/20 Range/Units 12:07 16:53 20:04 BUN (9-20) mg/dL Creatinine (0.66-1.25) mg/dL Glucose (74-99) mg/dL POC Glucose (mg/dL) 274 H 164 H 125 H (75-99) mg/dL Calcium (8.4-10.2) mg/dL 05/19/20 05/19/20 Range/Units 06:55 07:32 BUN 35 H (9-20) mg/dL Creatinine 3.03 H (0.66-1.25) mg/dL Glucose 173 H (74-99) mg/dL POC Glucose (mg/dL) 180 H (75-99) mg/dL Calcium 8.3 L (8.4-10.2) mg/dL Assessment and Plan Plan: -Petechiae: . She doesn't appear to be have vasculitis. Platelet count is within normal limits. Patient is not uremic. And apparently is within normal limits etiology is not clear for his petechiae. As mentioned above will need a biopsy of pedicle region as an outpatient. Patient was resumed on Eliquis -End-stage renal disease: Patient is volume overloaded and anasarca patient had hemodialysis every day since admission and is undergoing hemodialysis today. I'll continue improve significantly -Pressure ulcers in the heels local wound care, infectious disease evaluate the patient -Right-sided pleural effusion which appears to be chronic -Congestive heart failure chronic systolic dysfunction EF of around 45% with possible acute exacerbation -Moderate mitral regurgitation -Aortic stenosis -Chronic A. fib on anti-coagulation which is being temporally held because of petechiae. -Coronary artery disease -Type 2 diabetes mellitus -Hypertension -Hyperlipidemia -Patient will need to be placed in a long-term facility For above-mentioned chronic medical problems patient will be resumed when appropriate home medications.
[2020-05-19 11:34] LABS: Glucose,Whole Blood 219 mg/dL (75-99)
[2020-05-19] MEDS: APIXABAN 2.5 MG TABLET PO SCH ×2 (11:56→21:31)
[2020-05-19] MEDS: ALBUTEROL NEBULIZED 2.5 MG/3 ML INHALATION PRN ×3 (13:22→20:07)
--- NOTE | 2020-05-19 13:48 | XR ---
EXAMINATION TYPE: XR chest 1V portable DATE OF EXAM: 05/19/2020 COMPARISON: 05/16/2020 HISTORY: Possible foreign body TECHNIQUE: Single frontal view of the chest is obtained. FINDINGS: Postsurgical changes are seen. There is bilateral consolidation and pleural effusion. Hype rtrophic and degenerative changes spine. Dialysis catheter noted. No pneumothorax. Appears to be tubi ng overlying the chest extending to the airway which likely is official the patient should be correla regi clinically. IMPRESSION: 1. Bilateral airspace disease and pleural effusion correlate for pneumonia versus pulmonary edema.
[2020-05-19] MEDS: PIPERACILLIN-TAZOBACTAM 3.375 GM in SODIUM CHLORIDE 0.9% 100 ML IVPB SCH (14:18)
[2020-05-19 16:28] LABS: Glucose,Whole Blood 160 mg/dL (75-99)
[2020-05-19 20:50] LABS: Glucose,Whole Blood 124 mg/dL (75-99)
[2020-05-19] MEDS ORDERED: FUROSEMIDE 10 MG/ML 4 ML VIAL IV STA (23:27)
[2020-05-20] MEDS: ACETAMINOPHEN TAB 500 MG TAB PO PRN (00:14)
[2020-05-20] MEDS: PIPERACILLIN-TAZOBACTAM 3.375 GM in SODIUM CHLORIDE 0.9% 100 ML IVPB SCH ×2 (02:16→15:05)
[2020-05-20] MEDS: METOPROLOL TARTRATE 25 MG TAB PO SCH ×3 (02:16→20:26)
[2020-05-20] MEDS ORDERED: HYDROcodone/APAP 5-325MG 1 EACH TAB PO STA (03:54)
[2020-05-20 06:53] LABS: Glucose,Whole Blood 159 mg/dL (75-99)
[2020-05-20] MEDS: ALBUTEROL NEBULIZED 2.5 MG/3 ML INHALATION PRN ×3 (07:29→17:08)
[2020-05-20 08:41] LABS: Calcium 8.6 mg/dL (8.4-10.2); Potassium 5.8 mmol/L (3.5-5.1)
[2020-05-20] MEDS: TAMSULOSIN 0.4 MG CAP.ER.24H PO SCH ×2 (09:16→21:09)
[2020-05-20] MEDS: APIXABAN 2.5 MG TABLET PO SCH ×2 (09:17→21:08)
[2020-05-20] MEDS: FERROUS SULFATE 325 MG TAB PO SCH (09:17)
[2020-05-20] MEDS: PANTOPRAZOLE 40 MG TABLET PO SCH (09:17)
[2020-05-20] MEDS: FINASTERIDE 5 MG TAB PO SCH (09:17)
[2020-05-20] MEDS: CALCIUM ACETATE 667 MG TAB PO SCH ×3 (09:18→17:31)
[2020-05-20] MEDS: MIDODRINE 5 MG TAB PO SCH ×3 (09:18→17:31)
[2020-05-20] MEDS: CALCIUM CARBONATE 500 MG CHEWABLE PO SCH ×2 (09:19→21:08)
[2020-05-20] MEDS: INSULIN ASPART (NovoLOG) 100 UNIT/ML VIAL SQ SCH ×4 (09:19→21:09)
[2020-05-20] MEDS: INSULIN DETEMIR (LEVEMIR) 100 UNIT/ML SYR SQ SCH (09:19)
[2020-05-20] MEDS: FUROSEMIDE 80 MG TAB PO SCH ×2 (09:20→17:31)
[2020-05-20] MEDS: COLLAGENASE 250 UNIT/GM OINTMENT 30 GM TUBE TOPICAL SCH (11:17)
[2020-05-20] MEDS: NON FORMULARY DRUG (Rosuvastatin 20 MG Tablet) PO SCH (11:17)
[2020-05-20 11:35] LABS: Glucose,Whole Blood 152 mg/dL (75-99)
--- NOTE | 2020-05-20 11:56 | PN ---
PROGRESS NOTE DATE OF SERVICE: 05/19/2020. REASON FOR FOLLOWUP: 1. Bilateral lower extremity wound. 2. Possible aspiration. INTERVAL HISTORY: Patient seemed to have problem with difficulty with breathing this afternoon and a question of possible aspiration. Patient complaining of shortness of breath and did have a cough and bringing up some whitish sputum. No chest pain. No nausea, no vomiting. No abdominal pain or pain to the lower extremity wound. PHYSICAL EXAMINATION: Blood pressure 120/72 with a pulse of 81, temperature 98.2. He is 98% on 5 L nasal cannula. General description is an elderly male up in the chair in no distress. Respiratory system: Unlabored breathing. Coarse breath sounds in the bases. No wheeze. Heart S1, S2. Regular rate and rhythm. ABDOMEN: Soft. No tenderness. Leg wounds are currently dressed. LABS: BUN of 35, creatinine 3.03. Chest x-ray shows bilateral airspace disease, pleural effusion correlate for pneumonia versus pulmonary edema. DIAGNOSTIC IMPRESSION/PLAN: 1. Patient with a bilateral feet wound, pressure ulcer; keep the area dry, off the pressure and heel protector. 2. Right leg wound. Local wound care with Aquacel dressing. 3. Patient now with worsening shortness of breath, concern for possible pneumonia. Zosyn has been added. We will try to obtain a sputum to narrow his antibiotics. 4. Continue supportive care. MMODL / IJN: [id number] /
--- NOTE | 2020-05-20 12:49 | P.CNPUL ---
History of Present Illness Consult date: 05/20/20 Requesting physician: Mark Oglesby Reason for consult: dyspnea, cough, hypoxemia Chief complaint: Acute on chronic hypoxic respiratory failure, acute on chronic dyspnea History of present illness: 80-year-old white male patient who is well-known to our practice from previous admissions for complications related to chronic CHF with systolic dysfunction, has a known history of multiple medical problems including end-stage renal disease on hemodialysis, history of CAD with previous four-vessel bypass grafting, paroxysmal A. fib flutter on Eliquis, type 2 diabetes mellitus, hypertension, hyperlipidemia, previous episodes of myocardial infarction, and history of bilateral pleural effusions, with previous right-sided thoracentesis with negative cytology, negative cultures, and was transudative. Patient came into the hospital on 05/16/2020 per EMS for evaluation of petechiae on his a bdomen and back, patient is on Eliquis for history of paroxysmal atrial flutter. Patient denied any falls or trauma, no chest pain or shortness of breath initially. Apparently the rash was an issue because when he presented for his hemodialysis on they would not put him on the machine to be dialyzed. His PT/INR was only mildly increased, at 1.4, his APTT was elevated at 149.1. His Eliquis was placed on hold. No obvious evidence of bleeding. Patient denied any other complaints. Initial chest x-ray showed stable right-sided infiltrate and pleural effusion on the right. Nephrology is following, infectious disease was consulted for bilateral heel pressure ulcers and patient is receiving local wound treatment with Aquacel dressing, not currently on any systemic antibiotics. Apparently yesterday patient had a episode of choking on his food, and became short of breath, and more hypoxic requiring higher supplemental oxygen, chest x-ray showed bilateral airspace disease and pleural effusions. Patient was placed on 12 L of oxygen with a pulse ox of 94%, he has been afebrile, hemodynamically patient is stable, this morning he seen in consultation. Sitting up in the chair, in no acute distress, he is currently on 10 L of oxygen, his pulse ox was 100%, he denies any chest pain, denies any shortness of breath, lung sounds reveal very mild crackles at bilateral bases, diminished breath sounds at the bases, no hemoptysis, no phlegm production. FiO2 was cut back to 5 L and the patient's pulse ox remained at 98%, and this was further decreased to 2 L which the patient is normally on. Empiric antibiotic coverage was added in the form of Zosyn. Hemodynamically patient has remained stable overnight, no fever or chills. He had a hemodialysis treatment yesterday with removal of 3 L of fluid. Mentation is appropriate, he is awake and alert oriented 3, denies any distress. Review of Systems All systems: negative Constitutional: Denies chills, Denies fever Eyes: denies blurred vision, denies pain Ears, nose, mouth and throat: Denies headache, Denies sore throat Cardiovascular: Reports dyspnea on exertion, Reports leg edema, Denies chest pain, Denies shortness of breath Respiratory: Reports dyspnea, Reports home oxygen, Denies cough Gastrointestinal: Denies abdominal pain, Denies diarrhea, Denies nausea, Denies vomiting Musculoskeletal: Denies myalgias Integumentary: Denies pruritus, Denies rash Neurological: Denies numbness, Denies weakness Psychiatric: Denies anxiety, Denies depression Endocrine: Denies fatigue, Denies weight change Past Medical History Past Medical History: Atrial Fibrillation, Coronary Artery Disease (CAD), Heart Failure, Diabetes Mellitus, GERD/Reflux, Hyperlipidemia, Hypertension, Myocardial Infarction (NE), Osteoarthritis (OA), Renal Disease, Vascular Disorder Additional Past Medical History / Comment(s): Pt recently admitted to [facility] on 01/16/19 with bilateral lower extremity cellulitis with multiple ulcers-positive for klebsiella/pseudomonas, uncontrolled diabetes, pleural effusion with R thoracentesis, exacerbation CHF. Other Hx: Paroxysmal Aflutter, PAD, chronic bilateral venous stasis dermatitis, lower extremety infection/blisters, chronic CHF, IDDM type II, BPH, post CABG urinary retention, CRD stage III, Last Myocardial Infarction Date:: 12/08/18 History of Any Multi-Drug Resistant Organisms: None Reported Past Surgical History: Appendectomy, Coronary Bypass/CABG, Heart Catheterization With Stent Additional Past Surgical History / Comment(s): 12/08/18 CABG 4 vessels, PCI with stents 2004, cardioversion for Aflutter, bilateral cataract removals/lens implants. Past Anesthesia/Blood Transfusion Reactions: No Reported Reaction Additional Past Anesthesia/Blood Transfusion Reaction / Comment(s): Pt received blood with CABG Date of Last Stent Placement:: 2004 Past Psychological History: No Psychological Hx Reported Additional Psychological History / Comment(s): Single. No children. No pets. Remote tobacco use. No international travel since his experience. Worked on [employer] Smoking Status: Never smoker Past Alcohol Use History: None Reported Additional Past Alcohol Use History / Comment(s): Pt smoked for one month in 1963. He quit drinking 1973 Past Drug Use History: None Reported - Past Family History Mother Family Medical History: Myocardial Infarction (NE) Additional Family Medical History / Comment(s): Mother had a NE at the age of 64 Father Additional Family Medical History / Comment(s): Father had mental health issues after a "bad" truck accident. Medications and Allergies Home Medications Medication Instructions Recorded Confirmed Type Ascorbic Acid [Vitamin C] 500 mg PO BID-W/MEALS tab 12/20/18 05/16/20 Rx Acetaminophen Tab [Tylenol] 500 mg PO Q6HR PRN tab 01/25/19 05/16/20 Rx Metoprolol Tartrate [Lopressor] 25 mg PO BID 02/08/19 05/16/20 History Ferrous Sulfate [Iron (65 MG 325 mg PO DAILY 07/27/19 05/16/20 History Elemental)] Ammonium Lactate Cream [Lac-Hydrin 1 applic TOPICAL BID PRN 10/30/19 05/16/20 History 12% Cream] Bacitracin Zinc Oint 1 applic TOPICAL BID PRN 10/30/19 05/16/20 History Finasteride [Proscar] 5 mg PO DAILY 10/30/19 05/16/20 History Insulin Glargine,Hum.rec.anlog 10 unit SQ DAILY #1 pen 11/05/19 05/16/20 Rx [Lantus Solostar] Albuterol Sulfate [Ventolin HFA] 2 puff INHALATION RT-Q4H PRN 12/26/19 05/16/20 History Calcium Acetate [PhosLo] 667 mg PO TID-W/MEALS tab 01/12/20 05/16/20 Rx Calcium Carbonate [Tums] 1,000 mg PO BID chew 01/12/20 05/16/20 Rx Docusate [Colace] 100 mg PO DAILY PRN cap 01/12/20 05/16/20 Rx Ergocalciferol [Vitamin D2 50,000 unit PO Q72H cap 01/12/20 05/16/20 Rx (DRISDOL)] Pantoprazole [Protonix] 40 mg PO DAILY tablet. 01/12/20 05/16/20 Rx Apixaban [Eliquis] 2.5 mg PO BID 04/07/20 05/16/20 History Insulin Aspart [NovoLOG Flexpen] See Protocol SQ TID-W/MEALS 04/07/20 05/16/20 History Melatonin 5 mg PO HS 04/07/20 05/16/20 History Ondansetron [Zofran] 4 mg PO TID PRN 04/07/20 05/16/20 History Rosuvastatin [Crestor] 10 mg PO DAILY 04/07/20 05/16/20 History metOLazone 2.5 mg PO Q48H 04/07/20 05/16/20 History Furosemide [Lasix] 80 mg PO BID@0900,1600 30 Days #60 04/15/20 05/16/20 Rx tab Midodrine [ProAmatine] 10 mg PO AC-TID 30 Days #180 tab 04/15/20 05/16/20 Rx Collagenase [Santyl] 1 applic TOPICAL DAILY 05/16/20 05/16/20 History Tamsulosin HCl [Flomax] 0.4 mg PO BID 05/16/20 05/16/20 History Allergies Allergy/AdvReac Type Severity Reaction Status Date / Time atorvastatin [From Lipitor] AdvReac MUSCLE/JOINT Verified 05/16/20 12:33 PAIN Physical Exam Vitals: Vital Signs Temp Pulse Pulse Resp BP Pulse Ox 05/20/20 11:28 86 05/20/20 11:15 82 05/20/20 07:42 86 05/20/20 07:29 80 05/20/20 07:00 98.5 F 77 18 92/53 100 05/20/20 01:05 98.3 F 83 98/57 100 05/20/20 00:00 18 05/19/20 20:30 94 L 05/19/20 20:18 85 05/19/20 20:08 84 05/19/20 16:00 81 18 05/19/20 15:59 83 05/19/20 15:50 83 100 05/19/20 13:49 98.2 F 81 18 120/72 98 05/19/20 13:35 88 05/19/20 13:31 84 Intake and Output 05/19/20 05/20/20 05/20/20 22:59 06:59 14:59 Other: Voiding Method Indwelling Catheter Indwelling Catheter Indwelling Catheter # Bowel Movements 1 GENERAL EXAM: Alert, very pleasant, 72-year-old white male, sitting up in the recliner, in no acute distress, is currently on 10 L of oxygen the pulse ox on percent, FiO2 has been cut back to 5 L, pulse ox remained at 98, and FiO2 has further cut back to 2 L comfortable in no apparent distress. HEAD: Normocephalic/atraumatic. EYES: Normal reaction of pupils, equal size. Conjunctiva pink, sclera white. NOSE: Clear with pink turbinates. THROAT: No erythema or exudates. NECK: No masses, no JVD, no thyroid enlargement, no adenopathy. CHEST: No chest wall deformity. Symmetrical expansion. LUNGS: Equal air entry with minimal crackles at the bases, diminished breath sounds at the bases, no rhonchi, no wheezing CVS: Regular rate and rhythm, normal S1 and S2, no gallops, no murmurs, no rubs ABDOMEN: Soft, nontender. No hepatosplenomegaly, normal bowel sounds, no guarding or rigidity. EXTREMITIES: No clubbing, 1+ lower extremity edema, no cyanosis, 2+ pulses and upper and lower extremities. MUSCULOSKELETAL: Muscle strength and tone normal. SPINE: No scoliosis or deformity SKIN: petechial rash involving bilateral hands, and some bluish discolorations on the patient's back, lower extremities. Patient has bilateral chronic heel wounds on both legs are wrapped with dressings, patient is receiving local wound care with Aquacel and protective dressing CENTRAL NERVOUS SYSTEM: Alert and oriented -3. No focal deficits, tone is normal in all 4 extremities. PSYCHIATRIC: Alert and oriented -3. Appropriate affect. Intact judgment and insight. Results - Laboratory Findings CBC and BMP: 05/16/20 08:59 05/20/20 07:53 PT/INR, D-dimer PT 13.9 sec (9.0-12.0) H 05/16/20 08:59 INR 1.4 (<1.2) H 05/16/20 08:59 Abnormal lab findings: Abnormal Labs 05/16/20 05/16/20 05/16/20 08:59 08:59 08:59 WBC 13.8 H RBC 3.82 L Hgb 10.2 L Hct 34.2 L MCHC 29.9 L RDW 19.5 H Neutrophils # 12.3 H Lymphocytes # 0.5 L PT 13.9 H INR 1.4 H APTT 149.1 H* Sodium 135 L Potassium 5.2 H Chloride 94 L BUN 50 H Creatinine 3.88 H Glucose POC Glucose (mg/dL) Hemoglobin A1c Calcium ALT 92 H Alkaline Phosphatase 578 H Albumin 3.4 L 05/16/20 05/16/20 05/16/20 11:27 11:35 16:36 WBC RBC Hgb Hct MCHC RDW Neutrophils # Lymphocytes # PT INR APTT 32.4 H Sodium Potassium Chloride BUN Creatinine Glucose POC Glucose (mg/dL) 107 H 159 H Hemoglobin A1c Calcium ALT Alkaline Phosphatase Albumin 05/16/20 05/17/20 05/17/20 21:18 07:07 11:23 WBC RBC Hgb Hct MCHC RDW Neutrophils # Lymphocytes # PT INR APTT Sodium Potassium Chloride BUN Creatinine Glucose POC Glucose (mg/dL) 107 H 279 H 181 H Hemoglobin A1c Calcium ALT Alkaline Phosphatase Albumin 05/17/20 05/17/20 05/17/20 12:02 16:53 21:08 WBC RBC Hgb Hct MCHC RDW Neutrophils # Lymphocytes # PT INR APTT Sodium Potassium Chloride BUN Creatinine Glucose POC Glucose (mg/dL) 155 H 109 H Hemoglobin A1c 6.5 H Calcium ALT Alkaline Phosphatase Albumin 05/18/20 05/18/20 05/18/20 07:06 12:07 16:53 WBC RBC Hgb Hct MCHC RDW Neutrophils # Lymphocytes # PT INR APTT Sodium Potassium Chloride BUN Creatinine Glucose POC Glucose (mg/dL) 202 H 274 H 164 H Hemoglobin A1c Calcium ALT Alkaline Phosphatase Albumin 05/18/20 05/19/20 05/19/20 20:04 06:55 07:32 WBC RBC Hgb Hct MCHC RDW Neutrophils # Lymphocytes # PT INR APTT Sodium Potassium Chloride BUN 35 H Creatinine 3.03 H Glucose 173 H POC Glucose (mg/dL) 125 H 180 H Hemoglobin A1c Calcium 8.3 L ALT Alkaline Phosphatase Albumin 05/19/20 05/19/20 05/19/20 11:32 16:27 20:49 WBC RBC Hgb Hct MCHC RDW Neutrophils # Lymphocytes # PT INR APTT Sodium Potassium Chloride BUN Creatinine Glucose POC Glucose (mg/dL) 219 H 160 H 124 H Hemoglobin A1c Calcium ALT Alkaline Phosphatase Albumin 05/20/20 05/20/20 05/20/20 06:51 07:53 11:30 WBC RBC Hgb Hct MCHC RDW Neutrophils # Lymphocytes # PT INR APTT Sodium Potassium 5.8 H Chloride BUN 56 H Creatinine 3.73 H Glucose 168 H POC Glucose (mg/dL) 159 H 152 H Hemoglobin A1c Calcium ALT Alkaline Phosphatase Albumin - Diagnostic Findings Chest x-ray: report reviewed, image reviewed Assessment and Plan Plan: Assessment: #1. Acute on chronic hypoxic respiratory failure related to an episode of aspiration on food, recovered, and patient is currently back down to 2 L of oxygen which the patient normally wears. Covered with Zosyn for empiric antibiotic coverage #2. Chronic hypoxic rest or a failure related to chronic CHF with systolic dysfunction #3. Petechial rash on bilateral hands, possibly related to Eliquis and platelet dysfunction related to history of ESRD, Eliquis remains on hold #4. ESRD on hemodialysis #5. Fluid overload, swelling, anasarca related to missed hemodialysis #6. Chronic right-sided pleural effusion, this was previously drained in December 2019, transudative, negative cytology and negative cultures #7. Bilateral heel pressure ulcers, under the care of infectious diseases #8. Moderate mitral regurgitation and aortic stenosis, and severe pulmonary hypertension with right-sided pressures of 64.5 mL of mercury #9. Chronic A. fib on anticoagulation a form of Eliquis which is currently on hold #10. History of coronary artery disease with previous history of bypass gr afting #10. Diabetes mellitus type 2 #11. Hypertension #12. Hyperlipidemia #13. General medical debility Plan: Continue current antibiotic coverage in the form of Zosyn, continue diuretics, today's chest x-ray has been reviewed showing bilateral airspace disease and pleural effusions. Patient is afebrile, FiO2 is down to 2 L, no worsening dyspnea, no chest pain, or phlegm production. Breathing seems to be comfortable, no altered mentation, maintain aspiration precautions. Speech fartun luation. We'll continue to follow I performed a history & physical examination of the patient and discussed their management with my nurse practitioner, Demetria Ramos. I reviewed the nurse practitioner's note and agree with the documented findings and plan of care. Lung sounds are positive for diminished breath sounds. The findings and the impression was discussed with the patient. I attest to the documentation by the nurse practitioner. Time with Patient: Greater than 30
--- NOTE | 2020-05-20 13:18 | P.PN ---
Subjective 80-year-old male came in with the significant swelling in both legs well along with anasarca and petechiae in the abdomen and back. Patient has is petechia going on for about foot 14 days patient is an to correlated on Eliquis. Patient's petechia appears to be secondary to platelet dysfunction rather than mass colitis. Eliquis will be held. Patient is supposed to undergo hemodialysis today and nephrology will be consulted for that. 05/17/2020 Patient did receive hemodialysis as today and will undergo hemodialysis today. Patient's up HEENT remains the same all the etiology of petechia is not clear that his platelet count is within normal limits and patient is not severely uremic either. Patient has second-degree this ulcer and multiple skin breakdown patient will need local wound care infectious disease will be consulted and patient will need placement probably in a long-term. 05/18/2020 No overnight events patient blood pressure is bit low. Patient probably will be discharged to subacute rehabitation 05/19/2020 Etiology of petechia still not clear, patient will be resumed on Eliquis and will monitor the patient. Patient looks much better now much less volume overloaded patient will undergo hemodialysis today as well as a new was obtained because of the purpura any is negative hepatitis panel is negative. Patient may need biopsy as an outpatient for these purpuric lesions as etiology is not clear and may need follow-up with rheumatology as well. 05/20/2020 Patient definitely appears to be still volume overloaded patient may need hemodialysis today as well as patient has infiltrate in the right side of the lung had multiple calls as today as patient choked on food and Heimlich maneuver was performed and the the food was successfully expelled. Patient is presently on high flow Lanoxin patient was started on Zosyn may not be much beneficial and pulmonary will evaluate the patient Constitutional: Denied any fatigue denied any fever. Cardio vascular: denied any chest pain, palpitations Gastrointestinal denied any nausea vomiting Pulmonary: Denied any shortness of breath cough Neurologic denied any new focal deficits All inpatient medications were reviewed and appropriate changes in these medications as dictated in the interval history and assessment and plan. Objective - Vital Signs Vital signs: Vital Signs Temp 98.5 F 05/20/20 07:00 Pulse 86 05/20/20 11:28 Resp 18 05/20/20 07:00 BP 92/53 05/20/20 07:00 Pulse Ox 100 05/20/20 07:00 Intake & Output 05/19/20 05/20/20 05/20/20 18:59 06:59 18:59 Intake Total 450 Balance 450 Weight 83.461 kg Intake: Intake, IV Titration 100 Amount Piperacillin-Tazobactam 3 100 .375 gm In Sodium Chloride 0.9% 100 ml @ 25 mls/hr IVPB Q12H [facility] Rx# :[id number] Oral 350 Other: Voiding Method Indwelling Catheter Indwelling Catheter Indwelling Catheter # Bowel Movements 1 - Exam PHYSICAL EXAMINATION: GENERAL: The patient is alert and oriented x3, not in any acute distress. Well developed, well nourished. Patient looks much better and feels much better since admission HEENT: Pupils are round and equally reacting to light. EOMI. No scleral icterus. No conjunctival pallor. Normocephalic, atraumatic. No pharyngeal erythema. No thyromegaly. CARDIOVASCULAR: S1 and S2 present. No murmurs, rubs, or gallops. PULMONARY: Probably crackles in the bilateral lower lung bases, fairly good air entry into bilateral lung vaughan ABDOMEN: Soft, nontender, nondistended, normoactive bowel sounds. No palpable organomegaly. MUSCULOSKELETAL: No joint swelling or deformity. EXTREMITIES: No cyanosis, clubbing, continues to have significant pedal edema NEUROLOGICAL: Gross neurological examination did not reveal any focal deficits. SKIN: His petechiae all over the lower abdomen and his upper back. Face there are some bruises all over the body and skin breakdown. He does have a second- degree results are as well. - Labs CBC & Chem 7: 05/16/20 08:59 05/20/20 07:53 Labs: Abnormal Lab Results - Last 24 Hours (Table) 05/19/20 05/19/20 05/20/20 Range/Units 16:27 20:49 06:51 Potassium (3.5-5.1) mmol/L BUN (9-20) mg/dL Creatinine (0.66-1.25) mg/dL Glucose (74-99) mg/dL POC Glucose (mg/dL) 160 H 124 H 159 H (75-99) mg/dL 05/20/20 05/20/20 Range/Units 07:53 11:30 Potassium 5.8 H (3.5-5.1) mmol/L BUN 56 H (9-20) mg/dL Creatinine 3.73 H (0.66-1.25) mg/dL Glucose 168 H (74-99) mg/dL POC Glucose (mg/dL) 152 H (75-99) mg/dL Assessment and Plan Plan: -Acute on chronic hypoxic respiratory failure: Patient had aspiration yesterday. Patient is presently on Zosyn can you with respiratory support pulmonary evaluated the patient -Petechiae: . She doesn't appear to be have vasculitis. Platelet count is within normal limits. Patient is not uremic. And apparently is within normal limits etiology is not clear for his petechiae. As mentioned above will need a biopsy of pedicle region as an outpatient. Patient was resumed on Eliquis -End-stage renal disease: Patient is volume overloaded and anasarca patient had hemodialysis every day since admission and is undergoing hemodialysis today. I'll continue improve significantly -Pressure ulcers in the heels local wound care, infectious disease evaluate the patient -Right-sided pleural effusion which appears to be chronic -Congestive heart failure chronic systolic dysfunction EF of around 45% with acute exacerbation patient will undergo hemodialysis -Moderate mitral regurgitation -Aortic stenosis -Chronic A. fib on anti-coagulation which is being temporally held because of petechiae. -Coronary artery disease -Type 2 diabetes mellitus -Hypertension -Hyperlipidemia -Patient will need to be placed in a long-term facility For above-mentioned chronic medical problems patient will be resumed when appropriate home medications. Patient's prognosis is extremely poor
[2020-05-20 15:41] LABS: C-ANCA <1:20 Titer (<1:20)
--- NOTE | 2020-05-20 16:14 | PN ---
PROGRESS NOTE Patient is seen for followup for end-stage renal disease. He is sitting up in a bedside chair. Patient is scheduled for hemodialysis today. His potassium was elevated at 5.8. Overall, he states he is eating fairly okay and better than a few days ago. PHYSICAL EXAMINATION: On examination today, blood pressure 92/53, heart rate 80 per minute, he is afebrile. Examination of the heart S1, S2. Examination of the lungs, bilateral breath sounds are heard. Abdomen is soft, nontender. Examination of the lower extremities shows edema 3 to 4+ bilaterally. [employer] exam grossly intact. LABS: Show sodium 140, potassium 5.8, chloride 106, BUN 56, serum creatinine 3.73. ASSESSMENT: 1. End-stage renal disease, on hemodialysis on a Wednesday, Wednesday, Wednesday schedule. We will arrange for hemodialysis today. 2. Hyperkalemia, expect improvement with hemodialysis today. 3. Volume overload. I will arrange for an extra treatment again tomorrow, mainly ultrafiltration for volume overload. 4. CKD mineral bone disorder. 5. Acute on top of chronic mainly systolic. 6. Cardiomyopathy, ejection fraction 40% to 45% with severe pulmonary hypertension, moderate tricuspid regurgitation. 7. Anemia of chronic disease. 8. Lower extremity wounds. 9. Generalized PTT with normal platelet counts. PLAN: Hemodialysis today and then ultrafiltration again tomorrow mostly for volume overload. MMODL / IJN: [id number] /
[2020-05-20 16:35] LABS: Glucose,Whole Blood 186 mg/dL (75-99)
--- NOTE | 2020-05-20 17:32 | PN ---
PROGRESS NOTE DATE OF SERVICE: 05/20/2020 REASON FOR FOLLOWUP: Bilateral hell pressure ulcer, right leg wound and possible pneumonia. INTERVAL HISTORY: Patient is currently afebrile. The patient is breathing more comfortably today. Denies having any chest pain. He did have a cough. No sputum. No nausea, no vomiting, no abdominal pain, or any worsening pain to the leg wound. PHYSICAL EXAMINATION: Blood pressure 97/57, pulse of 80, temperature 97.6, he is 97% on 3 L nasal cannula. General description is an elderly male, up in the chair in no distress. RESPIRATORY SYSTEM: Unlabored breathing, decreased breath sounds, no wheeze. HEART: S1, S2. Regular rate and rhythm. His leg wounds are currently dressed. No obvious drainage on the dressing. LABS: BUN of 56, creatinine 3.73. IMPRESSION/PLAN: 1. Patient with bilateral heel pressure ulcer with no cellulitis. Local care to continue with dry protection and keep the area off pressure. 2. Right lower extremity wound. Aquacel Silver dressing, keep the area off the pressure. 3. Possible pneumonia covered with Zosyn. Try to obtain a sputum to narrow down antibiotics. Continue supportive care. MMODL / IJN: [id number] /
[2020-05-20 21:02] LABS: Glucose,Whole Blood 150 mg/dL (75-99)
[2020-05-21] MEDS: PIPERACILLIN-TAZOBACTAM 3.375 GM in SODIUM CHLORIDE 0.9% 100 ML IVPB SCH ×2 (01:42→12:52)
[2020-05-21] MEDS: ACETAMINOPHEN TAB 500 MG TAB PO PRN ×2 (02:46→16:55)
[2020-05-21 06:02] LABS: Anisocytosis Slight; HCT 30.7 % (39.0-53.0); Hypochromasia Marked; MCH 26.6 pg (25.0-35.0); MCHC 28.4 g/dL (31.0-37.0); MCV 93.6 fL (80.0-100.0); Macrocytosis Slight; Mean Platelet Volume 7.8; RBC 3.28 m/uL (4.30-5.90); RDW 18.8 % (11.5-15.5)
[2020-05-21 06:08] LABS: HGB 8.7 gm/dL (13.0-17.5); Platelet Count 112 k/uL (150-450)
[2020-05-21 06:52] LABS: Glucose,Whole Blood 49 mg/dL (75-99)
[2020-05-21 07:07] LABS: Glucose,Whole Blood 55 mg/dL (75-99)
[2020-05-21 07:17] LABS: Glucose,Whole Blood 84 mg/dL (75-99)
[2020-05-21] MEDS: INSULIN ASPART (NovoLOG) 100 UNIT/ML VIAL SQ SCH ×6 (07:58→21:06)
[2020-05-21] MEDS: ALBUTEROL NEBULIZED 2.5 MG/3 ML INHALATION PRN ×3 (08:00→15:41)
[2020-05-21] MEDS: APIXABAN 2.5 MG TABLET PO SCH ×2 (08:08→21:10)
[2020-05-21] MEDS: TAMSULOSIN 0.4 MG CAP.ER.24H PO SCH ×2 (08:08→21:11)
[2020-05-21] MEDS: PANTOPRAZOLE 40 MG TABLET PO SCH (08:08)
[2020-05-21] MEDS: MIDODRINE 5 MG TAB PO SCH ×4 (08:08→16:58)
[2020-05-21] MEDS: FERROUS SULFATE 325 MG TAB PO SCH (08:08)
[2020-05-21] MEDS: CALCIUM CARBONATE 500 MG CHEWABLE PO SCH ×2 (08:08→21:11)
[2020-05-21] MEDS: CALCIUM ACETATE 667 MG TAB PO SCH ×3 (08:08→16:55)
[2020-05-21] MEDS: FINASTERIDE 5 MG TAB PO SCH (08:08)
[2020-05-21] MEDS: FUROSEMIDE 80 MG TAB PO SCH ×2 (08:09→16:54)
[2020-05-21] MEDS: ERGOCALCIFEROL 50,000 UNIT CAP PO SCH (08:09)
[2020-05-21] MEDS: METOPROLOL TARTRATE 25 MG TAB PO SCH ×2 (08:09→19:49)
[2020-05-21] MEDS: INSULIN DETEMIR (LEVEMIR) 100 UNIT/ML SYR SQ SCH (08:09)
[2020-05-21] MEDS: NON FORMULARY DRUG (Rosuvastatin 20 MG Tablet) PO SCH (09:30)
[2020-05-21] MEDS: COLLAGENASE 250 UNIT/GM OINTMENT 30 GM TUBE TOPICAL SCH (09:30)
[2020-05-21 10:13] LABS: African American GFR (CKD) 18.3 (60.0-200.0); Anion Gap 12.5 mmol/L (4.00-12.00); Calcium 8.3 mg/dL (8.7-10.3); Carbon Dioxide 22.5 mmol/L (21.6-31.8); Non-African American GFR(CKD) 15.8 (60.0-200.0); Potassium 5.1 mmol/L (3.5-5.5)
[2020-05-21 11:34] LABS: Glucose,Whole Blood 183 mg/dL (75-99)
--- NOTE | 2020-05-21 11:55 | P.PN ---
Subjective Progress Note Date: 05/21/20 Principal diagnosis: Acute on chronic hypoxic respiratory failure, acute on chronic dyspnea 80-year-old white male patient who is well-known to our practice from previous admissions for complications related to chronic CHF with systolic dysfunction, has a known history of multiple medical problems including end-stage renal disease on hemodialysis, history of CAD with previous four-vessel bypass grafting, paroxysmal A. fib flutter on Eliquis, type 2 diabetes mellitus, hypertension, hyperlipidemia, previous episodes of myocardial infarction, and history of bilateral pleural effusions, with previous right-sided thoracentesis with negative cytology, negative cultures, and was transudative. Patient came into the hospital on 05/16/2020 per EMS for evaluation of petechiae on his abdomen and back, patient is on Eliquis for history of paroxysmal atrial flutter. Patient denied any falls or trauma, no chest pain or shortness of breath initially. Apparently the rash was an issue because when he presented for his hemodialysis on they would not put him on the machine to be dialyzed. His PT/INR was only mildly increased, at 1.4, his APTT was elevated at 149.1. His Eliquis was placed on hold. No obvious evidence of bleeding. Patient denied any other complaints. Initial chest x-ray showed stable right- sided infiltrate and pleural effusion on the right. Nephrology is following, infectious disease was consulted for bilateral heel pressure ulcers and patient is receiving local wound treatment with Aquacel dressing, not currently on any systemic antibiotics. Apparently yesterday patient had a episode of choking on his food, and became short of breath, and more hypoxic requiring higher supplemental oxygen, chest x-ray showed bilateral airspace disease and pleural effusions. Patient was placed on 12 L of oxygen with a pulse ox of 94%, he has been afebrile, hemodynamically patient is stable, this morning he seen in consultation. Sitting up in the chair, in no acute distress, he is currently on 10 L of oxygen, his pulse ox was 100%, he denies any chest pain, denies any shortness of breath, lung sounds reveal very mild crackles at bilateral bases, diminished breath sounds at the bases, no hemoptysis, no phlegm production. FiO2 was cut back to 5 L and the patient's pulse ox remained at 98%, and this was further decreased to 2 L which the patient is normally on. Empiric antibiotic coverage was added in the form of Zosyn. Hemodynamically patient has remained stable overnight, no fever or chills. He had a hemodialysis treatment yesterday with removal of 3 L of fluid. Mentation is appropriate, he is awake and alert oriented 3, denies any distress. On 05/21/2020 patient seen in follow-up on medical surgical floor, yesterday he had hemodialysis treatment with removal of 1.5 L of fluid, his FiO2 is down to 3 L and his pulse ox is 98%, hemodynamically stable, no cough or congestion, she remains on oral Lasix, currently 80 mg twice daily by mouth. Lung sounds are clear, patient remains on empiric antibiotics in the form of Zosyn, he has had no fever or chills overnight, occasional cough and patient is able to clear secretions. Today's labs have been reviewed, showing white blood cell count of 10, hemoglobin of 8.7, BUN of 49, creatinine 3.5, and pain At 12, mildly elevated. Blood pressures within normal limits, ID service is following, patient is getting local wound treatment to the bilateral heel pressure ulcers. Objective - Vital Signs Vital signs: Vital Signs Temp 98.2 F 05/21/20 06:46 Pulse 80 05/21/20 08:13 Resp 20 05/21/20 08:00 BP 102/60 05/21/20 06:46 Pulse Ox 98 05/21/20 06:46 Intake & Output 05/20/20 05/21/20 05/21/20 18:59 06:59 18:59 Intake Total 100 Output Total 1500 Balance -1400 Weight 83.461 kg Intake: Intake, IV Titration 100 Amount Piperacillin-Tazobactam 3 100 .375 gm In Sodium Chloride 0.9% 100 ml @ 25 mls/hr IVPB Q12H [facility] Rx# :[id number] Output: Hemodialysis 1500 Other: Voiding Method Indwelling Catheter Indwelling Catheter Indwelling Catheter # Voids 0 - Exam GENERAL EXAM: Alert, very pleasant, 72-year-old white male, sitting up in the recliner, in no acute distress, is currently on 10 L of oxygen the pulse ox on percent, FiO2 has been cut back to 5 L, pulse ox remained at 98, and FiO2 has further cut back to 2 L comfortable in no apparent distress. HEAD: Normocephalic/atraumatic. EYES: Normal reaction of pupils, equal size. Conjunctiva pink, sclera white. NOSE: Clear with pink turbinates. THROAT: No erythema or exudates. NECK: No masses, no JVD, no thyroid enlargement, no adenopathy. CHEST: No chest wall deformity. Symmetrical expansion. LUNGS: Equal air entry with minimal crackles at the bases, diminished breath sounds at the bases, no rhonchi, no wheezing CVS: Regular rate and rhythm, normal S1 and S2, no gallops, no murmurs, no rubs ABDOMEN: Soft, nontender. No hepatosplenomegaly, normal bowel sounds, no guarding or rigidity. EXTREMITIES: No clubbing, 1+ lower extremity edema, no cyanosis, 2+ pulses and upper and lower extremities. MUSCULOSKELETAL: Muscle strength and tone normal. SPINE: No scoliosis or deformity SKIN: petechial rash involving bilateral hands, and some bluish discolorations on the patient's back, lower extremities. Patient has bilateral chronic heel wounds on both legs are wrapped with dressings, patient is receiving local wound care with Aquacel and protective dressing CENTRAL NERVOUS SYSTEM: Alert and oriented -3. No focal deficits, tone is normal in all 4 extremities. PSYCHIATRIC: Alert and oriented -3. Appropriate affect. Intact judgment and insight. - Labs CBC & Chem 7: 05/21/20 05:47 05/21/20 05:47 Labs: Abnormal Lab Results - Last 24 Hours (Table) 05/20/20 05/20/20 05/21/20 Range/Units 16:34 21:00 05:47 RBC (4.30-5.90) m/uL Hgb (13.0-17.5) gm/dL Hct (39.0-53.0) % MCHC (31.0-37.0) g/dL RDW (11.5-15.5) % Plt Count (150-450) k/uL Anion Gap 12.50 H (4.00-12.00) mmol/L BUN 49.0 H (9.0-27.0) mg/dL Creatinine 3.5 H (0.6-1.5) mg/dL Est GFR (CKD-EPI)AfAm 18.3 L (60.0-200.0) Est GFR (CKD-EPI)NonAf 15.8 L (60.0-200.0) Glucose 55 L (70-110) mg/dL POC Glucose (mg/dL) 186 H 150 H (75-99) mg/dL Calcium 8.3 L (8.7-10.3) mg/dL 05/21/20 05/21/20 05/21/20 Range/Units 05:47 06:40 06:57 RBC 3.28 L (4.30-5.90) m/uL Hgb 8.7 L D (13.0-17.5) gm/dL Hct 30.7 L (39.0-53.0) % MCHC 28.4 L (31.0-37.0) g/dL RDW 18.8 H (11.5-15.5) % Plt Count 112 L D (150-450) k/uL Anion Gap (4.00-12.00) mmol/L BUN (9.0-27.0) mg/dL Creatinine (0.6-1.5) mg/dL Est GFR (CKD-EPI)AfAm (60.0-200.0) Est GFR (CKD-EPI)NonAf (60.0-200.0) Glucose (70-110) mg/dL POC Glucose (mg/dL) 49 L 55 L (75-99) mg/dL Calcium (8.7-10.3) mg/dL 05/21/20 Range/Units 11:19 RBC (4.30-5.90) m/uL Hgb (13.0-17.5) gm/dL Hct (39.0-53.0) % MCHC (31.0-37.0) g/dL RDW (11.5-15.5) % Plt Count (150-450) k/uL Anion Gap (4.00-12.00) mmol/L BUN (9.0-27.0) mg/dL Creatinine (0.6-1.5) mg/dL Est GFR (CKD-EPI)AfAm (60.0-200.0) Est GFR (CKD-EPI)NonAf (60.0-200.0) Glucose (70-110) mg/dL POC Glucose (mg/dL) 183 H (75-99) mg/dL Calcium (8.7-10.3) mg/dL Assessment and Plan Plan: Assessment: #1. Acute on chronic hypoxic respiratory failure related to an episode of aspiration on food, recovered, and patient is currently back down to 3 L of oxygen which the patient normally wears. Covered with Zosyn for empiric antibiotic coverage #2. Chronic hypoxic rest or a failure related to chronic CHF with systolic dysfunction #3. Petechial rash on bilateral hands, possibly related to Eliquis and platelet dysfunction related to history of ESRD, Eliquis remains on hold #4. ESRD on hemodialysis #5. Fluid overload, swelling, anasarca related to missed hemodialysis #6. Chronic right-sided pleural effusion, this was previously drained in December 2019, transudative, negative cytology and negative cultures #7. Bilateral heel pressure ulcers, under the care of infectious diseases #8. Moderate mitral regurgitation and aortic stenosis, and severe pulmonary hypertension with right-sided pressures of 64.5 mL of mercury #9. Chronic A. fib on anticoagulation a form of Eliquis which is currently on hold #10. History of coronary artery disease with previous history of bypass grafting #10. Diabetes mellitus type 2 #11. Hypertension #12. Hyperlipidemia #13. General medical debility Plan: Patient is doing well, no worsening dyspnea, lung sounds are clear, his FiO2 down to 3 L, continue weaning FiO2, maintain aspiration precautions, there has been no recurrence of choking, speech therapy evaluation noted, dysphagia level III diet with thin liquids was recommended. Continue current medical treatment, will continue to follow I performed a history & physical examination of the patient and discussed their management with my nurse practitioner, Demetria Ramos. I reviewed the nurse practitioner's note and agree with the documented findings and plan of care. Lung sounds are positive for diminished breath sounds. The findings and the impression was discussed with the patient. I attest to the documentation by the nurse practitioner. Time with Patient: Less than 30
--- NOTE | 2020-05-21 14:12 | P.PN ---
Subjective 80-year-old male came in with the significant swelling in both legs well along with anasarca and petechiae in the abdomen and back. Patient has is petechia going on for about foot 14 days patient is an to correlated on Eliquis. Patient's petechia appears to be secondary to platelet dysfunction rather than mass colitis. Eliquis will be held. Patient is supposed to undergo hemodialysis today and nephrology will be consulted for that. 05/17/2020 Patient did receive hemodialysis as today and will undergo hemodialysis today. Patient's up HEENT remains the all the etiology of petechia is not clear that his platelet count is within normal limits and patient is not severely uremic either. Patient has second-degree this ulcer and multiple skin breakdown patient will need local wound care infectious disease will be consulted and patient will need placement probably in a snf. 05/18/2020 No overnight events patient blood pressure is bit low. Patient probably will be discharged to subacute rehabitation 05/19/2020 Etiology of petechia still not clear, patient will be resumed on Eliquis and will monitor the patient. Patient looks much better now much less volume overloaded patient will undergo hemodialysis today as well as a new was obtained because of the purpura any is negative hepatitis panel is negative. Patient may need biopsy as an outpatient for these purpuric lesions as etiology is not clear and may need follow-up with rheumatology as well. 05/20/2020 Patient definitely appears to be still volume overloaded patient may need hemodialysis today as well as patient has infiltrate in the right side of the lung had multiple calls as today as patient choked on food and Heimlich maneuver was performed and the the food was successfully expelled. Patient is presently on high flow Lanoxin patient was started on Zosyn may not be much beneficial and pulmonary will evaluate the patient 05/21/2020 Patient respiratory status improved his wheezing improved patient is presently in 3 L of oxygen, had hemodialysis yesterday and will undergo hemodialysis today Constitutional: Denied any fatigue denied any fever. Cardio vascular: denied any chest pain, palpitations Gastrointestinal denied any nausea vomiting Pulmonary: Denied any shortness of breath cough Neurologic denied any new focal deficits All inpatient medications were reviewed and appropriate changes in these medications as dictated in the interval history and assessment and plan. Objective - Vital Signs Vital signs: Vital Signs Temp 98.2 F 05/21/20 06:46 Pulse 80 05/21/20 12:03 Resp 20 05/21/20 08:00 BP 102/60 05/21/20 06:46 Pulse Ox 98 05/21/20 06:46 Intake & Output 05/20/20 05/21/20 05/21/20 18:59 06:59 18:59 Intake Total 100 Output Total 1500 Balance -1400 Weight 83.461 kg Intake: Intake, IV Titration 100 Amount Piperacillin-Tazobactam 3 100 .375 gm In Sodium Chloride 0.9% 100 ml @ 25 mls/hr IVPB Q12H [facility] Rx# :[id number] Output: Hemodialysis 1500 Other: Voiding Method Indwelling Catheter Indwelling Catheter Indwelling Catheter # Voids 0 - Exam PHYSICAL EXAMINATION: GENERAL: The patient is alert and oriented x3, not in any acute distress. Well developed, well nourished. Patient looks much better and feels much better since admission HEENT: Pupils are round and equally reacting to light. EOMI. No scleral icterus. No conjunctival pallor. Normocephalic, atraumatic. No pharyngeal erythema. No thyromegaly. CARDIOVASCULAR: S1 and S2 present. No murmurs, rubs, or gallops. PULMONARY: There is significant improvement in wheezing and rhonchi fairly good air entry into bilateral lung vaughan ABDOMEN: Soft, nontender, nondistended, normoactive bowel sounds. No palpable organomegaly. MUSCULOSKELETAL: No joint swelling or deformity. EXTREMITIES: No cyanosis, clubbing, continues to have significant pedal edema NEUROLOGICAL: Gross neurological examination did not reveal any focal deficits. SKIN: His petechiae all over the lower abdomen and his upper back. Face there are some bruises all over the body and skin breakdown. He does have a second- degree results are as well. - Labs CBC & Chem 7: 05/21/20 05:47 05/21/20 05:47 Labs: Abnormal Lab Results - Last 24 Hours (Table) 05/20/20 05/20/20 05/21/20 Range/Units 16:34 21:00 05:47 RBC (4.30-5.90) m/uL Hgb (13.0-17.5) gm/dL Hct (39.0-53.0) % MCHC (31.0-37.0) g/dL RDW (11.5-15.5) % Plt Count (150-450) k/uL Anion Gap 12.50 H (4.00-12.00) mmol/L BUN 49.0 H (9.0-27.0) mg/dL Creatinine 3.5 H (0.6-1.5) mg/dL Est GFR (CKD-EPI)AfAm 18.3 L (60.0-200.0) Est GFR (CKD-EPI)NonAf 15.8 L (60.0-200.0) Glucose 55 L (70-110) mg/dL POC Glucose (mg/dL) 186 H 150 H (75-99) mg/dL Calcium 8.3 L (8.7-10.3) mg/dL 05/21/20 05/21/20 05/21/20 Range/Units 05:47 06:40 06:57 RBC 3.28 L (4.30-5.90) m/uL Hgb 8.7 L D (13.0-17.5) gm/dL Hct 30.7 L (39.0-53.0) % MCHC 28.4 L (31.0-37.0) g/dL RDW 18.8 H (11.5-15.5) % Plt Count 112 L D (150-450) k/uL Anion Gap (4.00-12.00) mmol/L BUN (9.0-27.0) mg/dL Creatinine (0.6-1.5) mg/dL Est GFR (CKD-EPI)AfAm (60.0-200.0) Est GFR (CKD-EPI)NonAf (60.0-200.0) Glucose (70-110) mg/dL POC Glucose (mg/dL) 49 L 55 L (75-99) mg/dL Calcium (8.7-10.3) mg/dL 05/21/20 Range/Units 11:19 RBC (4.30-5.90) m/uL Hgb (13.0-17.5) gm/dL Hct (39.0-53.0) % MCHC (31.0-37.0) g/dL RDW (11.5-15.5) % Plt Count (150-450) k/uL Anion Gap (4.00-12.00) mmol/L BUN (9.0-27.0) mg/dL Creatinine (0.6-1.5) mg/dL Est GFR (CKD-EPI)AfAm (60.0-200.0) Est GFR (CKD-EPI)NonAf (60.0-200.0) Glucose (70-110) mg/dL POC Glucose (mg/dL) 183 H (75-99) mg/dL Calcium (8.7-10.3) mg/dL Assessment and Plan Plan: -Acute on chronic hypoxic respiratory failure: Patient had aspiration yesterday. Patient is presently on Zosyn can you with respiratory support pulmonary evaluated the patient -Petechiae: . She doesn't appear to be have vasculitis. Platelet count is within normal limits. Patient is not uremic. And apparently is within normal limits etiology is not clear for his petechiae. As mentioned above will need a biopsy of pedicle region as an outpatient. Patient was resumed on Eliquis -End-stage renal disease: Patient is volume overloaded and anasarca patient had hemodialysis every day since admission and is undergoing hemodialysis today. I'll continue improve significantly -Pressure ulcers in the heels local wound care, infectious disease evaluate the patient -Right-sided pleural effusion which appears to be chronic -Congestive heart failure chronic systolic dysfunction EF of around 45% with acute exacerbation patient will undergo hemodialysis -Moderate mitral regurgitation -Aortic stenosis -Chronic A. fib on anti-coagulation which is being temporally held because of petechiae. -Coronary artery disease -Type 2 diabetes mellitus -Hypertension -Hyperlipidemia -Patient will need to be placed in a long-term facility For above-mentioned chronic medical problems patient will be resumed when appropriate home medications. Patient's prognosis is extremely poor
--- NOTE | 2020-05-21 16:01 | PN ---
PROGRESS NOTE DATE OF SERVICE: 05/21/2020 REASON FOR FOLLOWUP: Bilateral wounds and possible aspiration pneumonia. INTERVAL HISTORY: The patient is currently afebrile. The patient is feeling better, breathing more comfortably. She is complaining of some dark tarry stools. No chest pain or cough. No abdominal pain or any pain to the lower extremity wounds. PHYSICAL EXAMINATION: Blood pressure 102/60 with a pulse of 80, temperature 98.2. He is 98% on 3 L nasal cannula. General description is an elderly male up in the chair in no distress. RESPIRATORY SYSTEM: Unlabored breathing with decreased breath sounds at the base. No wheeze. HEART: S1, S2. Regular rate and rhythm. ABDOMEN: Soft. No tenderness. Leg wounds are currently dressed. No obvious drainage on the dressing. LABS: Hemoglobin 8.6, white count 10, BUN of 49, creatinine 3.5. DIAGNOSTIC IMPRESSION AND PLAN: 1. Patient with bilateral heel pressure ulcers with no evidence of any cellulitis. Local care to continue with dry protective dressing and heel protectors. 2. Right lower extremity wound. Continue with the Aquacel Silver dressing. 3. Possible aspiration pneumonitis, for which the patient is currently covered with Zosyn. Try to obtain a sputum sample and continue with supportive care. MMODL / IJN: [id number] /
[2020-05-21 16:28] LABS: Glucose,Whole Blood 182 mg/dL (75-99)
--- NOTE | 2020-05-21 18:16 | PN ---
PROGRESS NOTE Patient is seen for followup for end-stage renal disease and volume overload. He is currently maintained on almost daily treatments, mostly for volume overload. This morning patient is comfortable, awake. He is not in any acute distress. Blood pressure this morning was 102/60, heart rate of 80 per minute. He is afebrile. EXAMINATION OF THE HEART: S1 and S2. EXAMINATION OF LUNGS: Decreased breath sounds at bases. ABDOMEN: Soft, non-tender, obese. Examination of lower extremities shows 3+ edema bilaterally. [employer] exam is grossly intact. Labs from today show sodium 140, potassium 5.1, hemoglobin 8.7 g/dL. ASSESSMENT: 1. End-stage renal disease, on hemodialysis by CHAYO Santizo. Patient is maintained on a Wednesday, Wednesday, Wednesday schedule. However, he is having almost daily treatments, mostly because of volume overload. 2. Volume overload, currently improved. 3. Hyperkalemia, now resolved. 4. Chronic kidney disease mineral bone disorder. 5. Cardiomyopathy, ejection fraction 40% to 45%, with severe pulmonary hypertension. 6. Lower extremity wounds. PLAN: Hemodialysis in a.m. We will plan for only ultrafiltration today. MMODL / IJN: [id number] /
[2020-05-21 21:02] LABS: Glucose,Whole Blood 169 mg/dL (75-99)
[2020-05-22] MEDS: PIPERACILLIN-TAZOBACTAM 3.375 GM in SODIUM CHLORIDE 0.9% 100 ML IVPB SCH ×2 (00:32→15:02)
[2020-05-22 06:49] LABS: Glucose,Whole Blood 156 mg/dL (75-99)
[2020-05-22] MEDS: ALBUTEROL NEBULIZED 2.5 MG/3 ML INHALATION PRN ×2 (06:57→15:45)
[2020-05-22] MEDS: MIDODRINE 5 MG TAB PO SCH ×2 (08:09→13:37)
[2020-05-22] MEDS: INSULIN DETEMIR (LEVEMIR) 100 UNIT/ML SYR SQ SCH (08:09)
[2020-05-22] MEDS: TAMSULOSIN 0.4 MG CAP.ER.24H PO SCH (08:09)
[2020-05-22] MEDS: FINASTERIDE 5 MG TAB PO SCH (08:10)
[2020-05-22] MEDS: APIXABAN 2.5 MG TABLET PO SCH (08:10)
[2020-05-22] MEDS: PANTOPRAZOLE 40 MG TABLET PO SCH (08:10)
[2020-05-22] MEDS: CALCIUM ACETATE 667 MG TAB PO SCH ×2 (08:10→13:32)
[2020-05-22] MEDS: CALCIUM CARBONATE 500 MG CHEWABLE PO SCH (08:11)
[2020-05-22] MEDS: INSULIN ASPART (NovoLOG) 100 UNIT/ML VIAL SQ SCH ×2 (08:11→11:54)
[2020-05-22] MEDS: FERROUS SULFATE 325 MG TAB PO SCH (08:11)
[2020-05-22] MEDS: FUROSEMIDE 80 MG TAB PO SCH ×2 (08:17→15:03)
[2020-05-22] MEDS: COLLAGENASE 250 UNIT/GM OINTMENT 30 GM TUBE TOPICAL SCH (11:09)
[2020-05-22] MEDS: METOPROLOL TARTRATE 25 MG TAB PO SCH (11:09)
[2020-05-22] MEDS: NON FORMULARY DRUG (Rosuvastatin 20 MG Tablet) PO SCH (11:09)
--- NOTE | 2020-05-22 11:29 | P.PN ---
Subjective Progress Note Date: 05/22/20 Principal diagnosis: Acute on chronic hypoxic respiratory failure, acute on chronic dyspnea 80-year-old white male patient who is well-known to our practice from previous admissions for complications related to chronic CHF with systolic dysfunction, has a known history of multiple medical problems including end-stage renal disease on hemodialysis, history of CAD with previous four-vessel bypass grafting, paroxysmal A. fib flutter on Eliquis, type 2 diabetes mellitus, hypertension, hyperlipidemia, previous episodes of myocardial infarction, and history of bilateral pleural effusions, with previous right-sided thoracentesis with negative cytology, negative cultures, and was transudative. Patient came into the hospital on 05/16/2020 per EMS for evaluation of petechiae on his abdomen and back, patient is on Eliquis for history of paroxysmal atrial flutter. Patient denied any falls or trauma, no chest pain or shortness of breath initially. Apparently the rash was an issue because when he presented for his hemodialysis on they would not put him on the machine to be dialyzed. His PT/INR was only mildly increased, at 1.4, his APTT was elevated at 149.1. His Eliquis was placed on hold. No obvious evidence of bleeding. Patient denied any other complaints. Initial chest x-ray showed stable right- sided infiltrate and pleural effusion on the right. Nephrology is following, infectious disease was consulted for bilateral heel pressure ulcers and patient is receiving local wound treatment with Aquacel dressing, not currently on any systemic antibiotics. Apparently yesterday patient had a episode of choking on his food, and became short of breath, and more hypoxic requiring higher supplemental oxygen, chest x-ray showed bilateral airspace disease and pleural effusions. Patient was placed on 12 L of oxygen with a pulse ox of 94%, he has been afebrile, hemodynamically patient is stable, this morning he seen in consultation. Sitting up in the chair, in no acute distress, he is currently on 10 L of oxygen, his pulse ox was 100%, he denies any chest pain, denies any shortness of breath, lung sounds reveal very mild crackles at bilateral bases, diminished breath sounds at the bases, no hemoptysis, no phlegm production. FiO2 was cut back to 5 L and the patient's pulse ox remained at 98%, and this was further decreased to 2 L which the patient is normally on. Empiric antibiotic coverage was added in the form of Zosyn. Hemodynamically patient has remained stable overnight, no fever or chills. He had a hemodialysis treatment yesterday with removal of 3 L of fluid. Mentation is appropriate, he is awake and alert oriented 3, denies any distress. On 05/21/2020 patient seen in follow-up on medical surgical floor, yesterday he had hemodialysis treatment with removal of 1.5 L of fluid, his FiO2 is down to 3 L and his pulse ox is 98%, hemodynamically stable, no cough or congestion, she remains on oral Lasix, currently 80 mg twice daily by mouth. Lung sounds are clear, patient remains on empiric antibiotics in the form of Zosyn, he has had no fever or chills overnight, occasional cough and patient is able to clear secretions. Today's labs have been reviewed, showing white blood cell count of 10, hemoglobin of 8.7, BUN of 49, creatinine 3.5, and pain At 12, mildly elevated. Blood pressures within normal limits, ID service is following, patient is getting local wound treatment to the bilateral heel pressure ulcers. On 05/22/2020 patient seen in follow-up on medical surgical floor. Awake and alert, oriented 3, he is having hemodialysis treatment today. No recurrent aspiration, patient denies any worsening dyspnea, he is on Zosyn for empiric antibiotic coverage, he is on oral Lasix at 80 mg twice daily. Is on a modified diet, dysphagia 3 with thin liquids. He is getting local wound care to his lower extremity wounds. Both legs are Gianni wrapped. He is in negative fluid balance. No leukocytosis, on yesterday's labs, no new labs today. No cough, lung sounds are clear. No acute events overnight. Discharge planning is in progress for placement to the [facility] on the [facility] Objective - Vital Signs Vital signs: Vital Signs Temp 97.6 F 05/22/20 07:00 Pulse 80 05/22/20 07:08 Resp 17 05/22/20 07:00 BP 106/62 05/22/20 07:00 Pulse Ox 94 L 05/22/20 07:00 Intake & Output 05/21/20 05/22/20 05/22/20 18:59 06:59 18:59 Intake Total 480 Output Total 3000 Balance -2520 Intake: Oral 480 Output: Hemodialysis 3000 Other: Voiding Method Indwelling Catheter Indwelling Catheter Indwelling Catheter # Voids 1 - Exam GENERAL EXAM: Alert, very pleasant, 72-year-old white male, sitting up in the recliner, in no acute distress, is currently on 3 L of oxygen the pulse ox on percent, pulse ox 94% HEAD: Normocephalic/atraumatic. EYES: Normal reaction of pupils, equal size. Conjunctiva pink, sclera white. NOSE: Clear with pink turbinates. THROAT: No erythema or exudates. NECK: No masses, no JVD, no thyroid enlargement, no adenopathy. CHEST: No chest wall deformity. Symmetrical expansion. LUNGS: Equal air entry with minimal crackles at the bases, diminished breath sounds at the bases, no rhonchi, no wheezing CVS: Regular rate and rhythm, normal S1 and S2, no gallops, no murmurs, no rubs ABDOMEN: Soft, nontender. No hepatosplenomegaly, normal bowel sounds, no guarding or rigidity. EXTREMITIES: No clubbing, 1+ lower extremity edema, no cyanosis, 2+ pulses and upper and lower extremities. MUSCULOSKELETAL: Muscle strength and tone normal. SPINE: No scoliosis or deformity SKIN: petechial rash involving bilateral hands, and some bluish discolorations on the patient's back, lower extremities. Patient has bilateral chronic heel wounds on both legs are wrapped with dressings, patient is receiving local wound care with Aquacel and protective dressing CENTRAL NERVOUS SYSTEM: Alert and oriented -3. No focal deficits, tone is normal in all 4 extremities. PSYCHIATRIC: Alert and oriented -3. Appropriate affect. Intact judgment and insight. - Labs CBC & Chem 7: 05/21/20 05:47 05/21/20 05:47 Labs: Abnormal Lab Results - Last 24 Hours (Table) 05/21/20 05/21/20 05/21/20 Range/Units 11:19 16:16 21:01 POC Glucose (mg/dL) 183 H 182 H 169 H (75-99) mg/dL 05/22/20 Range/Units 06:48 POC Glucose (mg/dL) 156 H (75-99) mg/dL Assessment and Plan Plan: Assessment: #1. Acute on chronic hypoxic respiratory failure related to an episode of aspiration on food, recovered, and patient is currently back down to 3 L of oxygen which the patient normally wears. Covered with Zosyn for empiric antibiotic coverage #2. Chronic hypoxic rest or a failure related to chronic CHF with systolic dysfunction #3. Petechial rash on bilateral hands, possibly related to Eliquis and platelet dysfunction related to history of ESRD, Eliquis remains on hold #4. ESRD on hemodialysis #5. Fluid overload, swelling, anasarca related to missed hemodialysis #6. Chronic right-sided pleural effusion, this was previously drained in December 2019, transudative, negative cytology and negative cultures #7. Bilateral heel pressure ulcers, under the care of infectious diseases #8. Moderate mitral regurgitation and aortic stenosis, and severe pulmonary hypertension with right-sided pressures of 64.5 mL of mercury #9. Chronic A. fib on anticoagulation a form of Eliquis which is currently on h old #10. History of coronary artery disease with previous history of bypass grafting #10. Diabetes mellitus type 2 #11. Hypertension #12. Hyperlipidemia #13. General medical debility Plan: No acute events overnight, no fever chills, remains on empiric antibiotic coverage in the form of Zosyn, no recurrent aspiration, no worsening dyspnea, increase activity as tolerated, discharge planning is in progress for placement to [facility] on the [place]. I performed a history & physical examination of the patient and discussed their management with my nurse practitioner, Demetria Ramos. I reviewed the nurse practitioner's note and agree with the documented findings and plan of care. Lung sounds are positive for diminished breath sounds. The findings and the impression was discussed with the patient. I attest to the documentation by the nurse practitioner. Time with Patient: Less than 30
[2020-05-22 11:41] LABS: Glucose,Whole Blood 134 mg/dL (75-99)
--- NOTE | 2020-05-22 11:50 | P.DS ---
Providers Date of admission: 05/18/20 15:41 Attending physician: Mark Oglesby Consults: 05/16/20 10:47 Consult Physician Stat Consulting Provider: Keron Barclay Consult Reason/Comments: esrd on dialysis Do you want consulting provider notified?: Yes 05/17/20 12:32 Consult Physician Routine Consulting Provider: Luc Cordero Consult Reason/Comments: wound care Do you want consulting provider notified?: Yes 05/19/20 13:55 Consult Physician Urgent Consulting Provider: Collin Jacob Consult Reason/Comments: Shortness of breath/pneumonia Do you want consulting provider notified?: Yes Primary care physician: [facility] Course: 80-year-old male came in with the significant swelling in both legs well along with anasarca and petechiae in the abdomen and back. Patient has is petechia going on for about foot 14 days patient is an to correlated on Eliquis. Patient's petechia appears to be secondary to platelet dysfunction rather than mass colitis. Eliquis will be held. Patient is supposed to undergo hemodialysis today and nephrology will be consulted for that. 05/17/2020 Patient did receive hemodialysis as today and will undergo hemodialysis today. Patient's up HEENT remains the all the etiology of petechia is not clear that his platelet count is within normal limits and patient is not severely uremic either. Patient has second-degree this ulcer and multiple skin breakdown patient will need local wound care infectious disease will be consulted and patient will need placement probably in a penitentiary. 05/18/2020 No overnight events patient blood pressure is bit low. Patient probably will be discharged to subacute rehabitation 05/19/2020 Etiology of petechia still not clear, patient will be resumed on Eliquis and will monitor the patient. Patient looks much better now much less volume overloaded patient will undergo hemodialysis today as well as a new was obtained because of the purpura any is negative hepatitis panel is negative. Patient may need biopsy as an outpatient for these purpuric lesions as etiology is not clear and may need follow-up with rheumatology as well. 05/20/2020 Patient definitely appears to be still volume overloaded patient may need hemodialysis today as well as patient has infiltrate in the right side of the lung had multiple calls as today as patient choked on food and Heimlich maneuver was performed and the the food was successfully expelled. Patient is presently on high flow Lanoxin patient was started on Zosyn may not be much beneficial and pulmonary will evaluate the patient 05/21/2020 Patient respiratory status improved his wheezing improved patient is presently in 3 L of oxygen, had hemodialysis yesterday and will undergo hemodialysis today 05/22/2020 Patient is doing much better todaysignificant overnight events patient is cleared from this probably perspective to be discharged. Patient respiratory status improved although he does have some rhonchi bilaterally. Patient can be discharged to subacute rehabitation patient is still on 2-3 L of oxygen which will be continued. PHYSICAL EXAMINATION: GENERAL: The patient is alert and oriented x3, not in any acute distress. Well developed, well nourished. Patient looks much better and feels much better since admission HEENT: Pupils are round and equally reacting to light. EOMI. No scleral icterus. No conjunctival pallor. Normocephalic, atraumatic. No pharyngeal erythema. No thyromegaly. CARDIOVASCULAR: S1 and S2 present. No murmurs, rubs, or gallops. PULMONARY: There is significant improvement in wheezing and rhonchi fairly good air entry into bilateral lung vaughan ABDOMEN: Soft, nontender, nondistended, normoactive bowel sounds. No palpable organomegaly. MUSCULOSKELETAL: No joint swelling or deformity. EXTREMITIES: No cyanosis, clubbing, continues to have significant pedal edema NEUROLOGICAL: Gross neurological examination did not reveal any focal deficits. SKIN: His petechiae all over the lower abdomen and his upper back. Face there are some bruises all over the body and skin breakdown. He does have a second- degree results are as well. Assessment and Plan Plan: -Acute on chronic hypoxic respiratory failure: Patient had aspiration . Patient will be discharged on 5 more days of Augmentin -Petechiae: . She doesn't appear to be have vasculitis. Platelet count is within normal limits. Patient is not uremic. ZOFIA within normal limits etiology is not clear for his petechiae. Patient may need a skin biopsy as an outpatient. Patient was resumed on Eliquis -End-stage renal disease: Patient is volume overloaded and anasarca patient had hemodialysis received hemodialysis. Was in a row and presently posteriorly Deborah patient will continue his regular hemodialysis sessions -Pressure ulcers in the heels local wound care, infectious disease evaluate the patient, local wound care please refer to the documentation for further details -Right-sided pleural effusion which appears to be chronic -Congestive heart failure chronic systolic dysfunction EF of around 45% with acute exacerbation patient will undergo hemodialysis -Moderate mitral regurgitation -Aortic stenosis -Chronic A. fib on anti-coagulation which is being temporally held because of petechiae. -Coronary artery disease -Type 2 diabetes mellitus -Hypertension -Hyperlipidemia Patient will be discharged to subacute rehabilitation most probably either today or tomorrow Patient Condition at Discharge: Serious Plan - Discharge Summary Discharge Rx Participant: No New Discharge Prescriptions: New Amoxic-Pot Clav 875-125Mg [Augmentin 875-125] 1 tab PO Q12HR 5 Days #10 tab Continue Ascorbic Acid [Vitamin C] 500 mg PO BID-W/MEALS tab Acetaminophen Tab [Tylenol] 500 mg PO Q6HR PRN tab PRN Reason: Fever And/ Or Pain Metoprolol Tartrate [Lopressor] 25 mg PO BID Ferrous Sulfate [Iron (65 MG Elemental)] 325 mg PO DAILY Ammonium Lactate Cream [Lac-Hydrin 12% Cream] 1 applic TOPICAL BID PRN PRN Reason: Dry Skin Bacitracin Zinc Oint 1 applic TOPICAL BID PRN PRN Reason: INFECTION Finasteride [Proscar] 5 mg PO DAILY Insulin Glargine,Hum.rec.anlog [Lantus Solostar] 10 unit SQ DAILY #1 pen Albuterol Sulfate [Ventolin HFA] 2 puff INHALATION RT-Q4H PRN PRN Reason: Shortness Of Breath Docusate [Colace] 100 mg PO DAILY PRN cap PRN Reason: Constipation Calcium Acetate [PhosLo] 667 mg PO TID-W/MEALS tab Pantoprazole [Protonix] 40 mg PO DAILY tablet.dr Calcium Carbonate [Tums] 1,000 mg PO BID chew Ergocalciferol [Vitamin D2 (DRISDOL)] 50,000 unit PO Q72H cap Ondansetron [Zofran] 4 mg PO TID PRN PRN Reason: Nausea Rosuvastatin [Crestor] 10 mg PO DAILY Melatonin 5 mg PO HS Insulin Aspart [NovoLOG Flexpen] See Protocol SQ TID-W/MEALS Apixaban [Eliquis] 2.5 mg PO BID Furosemide [Lasix] 80 mg PO BID@0900,1600 30 Days #60 tab Midodrine [ProAmatine] 10 mg PO AC-TID 30 Days #180 tab Tamsulosin HCl [Flomax] 0.4 mg PO BID Collagenase [Santyl] 1 applic TOPICAL DAILY Discontinued metOLazone 2.5 mg PO Q48H Discharge Medication List Ascorbic Acid [Vitamin C] 500 mg PO BID-W/MEALS tab 12/20/18 [Rx] Acetaminophen Tab [Tylenol] 500 mg PO Q6HR PRN tab 01/25/19 [Rx] Metoprolol Tartrate [Lopressor] 25 mg PO BID 02/08/19 [History] Ferrous Sulfate [Iron (65 MG Elemental)] 325 mg PO DAILY 07/27/19 [History] Ammonium Lactate Cream [Lac-Hydrin 12% Cream] 1 applic TOPICAL BID PRN 10/30/19 [History] Bacitracin Zinc Oint 1 applic TOPICAL BID PRN 10/30/19 [History] Finasteride [Proscar] 5 mg PO DAILY 10/30/19 [History] Insulin Glargine,Hum.rec.anlog [Lantus Solostar] 10 unit SQ DAILY #1 pen 11/05/19 [Rx] Albuterol Sulfate [Ventolin HFA] 2 puff INHALATION RT-Q4H PRN 12/26/19 [History] Calcium Acetate [PhosLo] 667 mg PO TID-W/MEALS tab 01/12/20 [Rx] Calcium Carbonate [Tums] 1,000 mg PO BID chew 01/12/20 [Rx] Docusate [Colace] 100 mg PO DAILY PRN cap 01/12/20 [Rx] Ergocalciferol [Vitamin D2 (DRISDOL)] 50,000 unit PO Q72H cap 01/12/20 [Rx] Pantoprazole [Protonix] 40 mg PO DAILY tablet. 01/12/20 [Rx] Apixaban [Eliquis] 2.5 mg PO BID 04/07/20 [History] Insulin Aspart [NovoLOG Flexpen] See Protocol SQ TID-W/MEALS 04/07/20 [History] Melatonin 5 mg PO HS 04/07/20 [History] Ondansetron [Zofran] 4 mg PO TID PRN 04/07/20 [History] Rosuvastatin [Crestor] 10 mg PO DAILY 04/07/20 [History] Furosemide [Lasix] 80 mg PO BID@0900,1600 30 Days #60 tab 04/15/20 [Rx] Midodrine [ProAmatine] 10 mg PO AC-TID 30 Days #180 tab 04/15/20 [Rx] Collagenase [Santyl] 1 applic TOPICAL DAILY 05/16/20 [History] Tamsulosin HCl [Flomax] 0.4 mg PO BID 05/16/20 [History] Amoxic-Pot Clav 875-125Mg [Augmentin 875-125] 1 tab PO Q12HR 5 Days #10 tab 05/22/20 [Rx] Follow up Appointment(s)/Referral(s): [facility] [NON[facility]STAFF] - As Needed [facility]inic [Primary Care Provider] - 05/28/20 8:30 am Discharge Disposition: HOME SELF-CARE
--- NOTE | 2020-05-22 12:14 | PN ---
PROGRESS NOTE DATE OF SERVICE: 05/22/2020 REASON FOR FOLLOWUP: Bilateral heel pressure ulcer, right leg wound and a question of pneumonia. INTERVAL HISTORY: The patient is currently afebrile. The patient denies having any chest pain or shortness of breath. Minimal cough. No nausea. No vomiting, no abdominal pain. Pain to the bilateral heel and right leg wound. PHYSICAL EXAMINATION: Blood pressure 106/52 with a pulse of 83, temperature 97.6. He is 94% on 2 L nasal cannula. General description is an elderly male up in the bed in no distress. RESPIRATORY SYSTEM: Unlabored breathing, clear to auscultation anteriorly. HEART: S1, S2. Regular rate and rhythm. ABDOMEN: Soft, no tenderness. Leg wounds are currently dressed. No obvious drainage on the dressing. DIAGNOSTIC IMPRESSION/PLAN: 1. Patient with bilateral heel wound pressure ulcer with necrotic base. No cellulitis. Local care with dry protective dressing. Keep the area off the pressure. 2. Right lateral leg wound. Local wound care with Aquacel Silver dressing. 3. Possible pneumonitis, covered with Zosyn to continue, monitor clinical course closely. MMODL / IJN: [id number] /
[2020-05-22 14:40] VITALS: BP 120/65; RESP 18; TEMP 97.4
[2020-05-22 16:01] VITALS: PULSE 72
--- NOTE | 2020-05-22 17:20 | PN ---
PROGRESS NOTE Patient is seen for followup for end-stage renal disease. He is currently seen on hemodialysis, patient tolerating his treatment well. PHYSICAL EXAMINATION: On examination today, blood pressure was 100/64, heart rate 85 per minute, patient is afebrile. His lower extremity edema has improved with some wrinkling of skin noted. Abdomen is soft, nontender. RECENT LABS: Labs are not available from today. Yesterday sodium was 140, potassium 5.1, hemoglobin 8.7 g/dL. ASSESSMENT: 1. End-stage renal disease, on hemodialysis on a Wednesday, Wednesday, Wednesday schedule. Currently receiving daily treatments, mostly for volume overload. 2. Volume overload, now improved. 3. Hyperkalemia, resolved. 4. CKD mineral bone disorder. 5. Lower extremity wounds, slowly improving. 6. Cardiomyopathy, ejection fraction 40%-45%. PLAN: UF of about 3-3.5 L. Follow up as outpatient for hemodialysis on Wednesday. MMODL / IJN: [id number] /
== END 2020-05-22 17:20 | disposition home health service (06) | DRG 291 ==
LOC: EC 08:25 → 4SSUR 10:47 → OBSVTOIN 05-18 15:41
PROVIDERS: ADMIT Internal Medicine; ATTEND Internal Medicine
PROC: 5A1D70Z Performance of Urinary Filtration, Intermittent, Less than 6 Hours Per Day (ICD-10-PCS; principal; 2020-05-17)
DX: I13.2 Hypertensive heart and chronic kidney disease with heart failure and with stage 5 chronic kidney disease, or end stage renal disease (principal); L89.893 Pressure ulcer of other site, stage 3; I50.23 Acute on chronic systolic (congestive) heart failure; J96.21 Acute and chronic respiratory failure with hypoxia; N18.6 End stage renal disease; J69.0 Pneumonitis due to inhalation of food and vomit; I48.20 Chronic atrial fibrillation, unspecified; R23.3 Spontaneous ecchymoses; I42.9 Cardiomyopathy, unspecified; D63.1 Anemia in chronic kidney disease; E11.22 Type 2 diabetes mellitus with diabetic chronic kidney disease; E66.9 Obesity, unspecified; E78.5 Hyperlipidemia, unspecified; E87.5 Hyperkalemia; I08.3 Combined rheumatic disorders of mitral, aortic and tricuspid valves; I25.10 Atherosclerotic heart disease of native coronary artery without angina pectoris; I25.2 Old myocardial infarction; I27.20 Pulmonary hypertension, unspecified; L89.610 Pressure ulcer of right heel, unstageable; L89.620 Pressure ulcer of left heel, unstageable; E11.51 Type 2 diabetes mellitus with diabetic peripheral angiopathy without gangrene; T17.928A Food in respiratory tract, part unspecified causing other injury, initial encounter; Z79.4 Long term (current) use of insulin; Z99.2 Dependence on renal dialysis; N40.1 Benign prostatic hyperplasia with lower urinary tract symptoms; R13.10 Dysphagia, unspecified; K21.9 Gastro-esophageal reflux disease without esophagitis; M19.90 Unspecified osteoarthritis, unspecified site; R33.8 Other retention of urine; I87.8 Other specified disorders of veins; E83.89 Other disorders of mineral metabolism; Z79.01 Long term (current) use of anticoagulants; Z79.899 Other long term (current) drug therapy; Z96.1 Presence of intraocular lens; Z95.5 Presence of coronary angioplasty implant and graft; Z95.1 Presence of aortocoronary bypass graft; Z87.891 Personal history of nicotine dependence; Z88.8 Allergy status to other drugs, medicaments and biological substances; Z90.49 Acquired absence of other specified parts of digestive tract; Z98.42 Cataract extraction status, left eye; Z98.41 Cataract extraction status, right eye; Z82.49 Family history of ischemic heart disease and other diseases of the circulatory system
CPT/HCPCS: 36415; 71045; 71046; 80048; 80053; 83036; 83605; 83690; 85025; 85027; 85384; 85610; 85730; 86038; 86255; 86706; 86850; 86900; 86901; 87340; 90935; 94640; 99285

== ENCOUNTER 2020-05-29 13:06 | Inpatient (IN) | payer MEDICARE, BC ==
--- NOTE | 2020-05-29 13:29 | ED ---
General Adult HPI - General Stated complaint: Altered Time Seen by Provider: 05/29/20 13:10 Source: patient, RN notes reviewed, old records reviewed - History of Present Illness Initial comments: This is a 80-year-old male who was sent to us from a residential for generalized weakness and petechial rash. According to the patient the rash is been there one week. Patient has no caregiver or family member with him. Patient states the rash is the worst on the right side under his right arm and that area is tender to touch as well. Patient denies any headache patient denies any numbness or weakness. Patient denies any lightheadedness. Patient denies any chest pain or palpitation. Patient denies any difficulty breathing or shortness of breath. Patient states he has a little abdominal pain but it is diffuse in nature there is no specific area of tenderness. Patient states this is pretty chronic condition for him. Patient states she's also with a kidney failure patient is on dialysis. Patient denies any fever or chills. Patient states the main to thinks he has notices this rash which appears to be worsening and just his overall generalized weakness - Related Data Home Medications Medication Instructions Recorded Confirmed Metoprolol Tartrate [Lopressor] 25 mg PO BID@0800,1600 02/08/19 05/29/20 Ferrous Sulfate [Iron (65 MG 325 mg PO DAILY 07/27/19 05/29/20 Elemental)] Ammonium Lactate Cream [Lac-Hydrin 1 applic TOPICAL BID PRN 10/30/19 05/29/20 12% Cream] Bacitracin Zinc Oint 1 applic TOPICAL BID PRN 10/30/19 05/29/20 Finasteride [Proscar] 5 mg PO DAILY 10/30/19 05/29/20 Albuterol Sulfate [Ventolin HFA] 2 puff INHALATION RT-Q4H PRN 12/26/19 05/29/20 Apixaban [Eliquis] 2.5 mg PO BID@0800,1600 04/07/20 05/29/20 Insulin Aspart [NovoLOG Flexpen] See Protocol SQ TID-W/MEALS 04/07/20 05/29/20 Melatonin 5 mg PO HS 04/07/20 05/29/20 Ondansetron [Zofran] 4 mg PO TID PRN 04/07/20 05/29/20 Tamsulosin HCl [Flomax] 0.4 mg PO BID@0800,1600 05/16/20 05/29/20 Ascorbic Acid [Vitamin C] 500 mg PO DAILY 05/29/20 05/29/20 Calcium Acetate [PhosLo] 667 mg PO TID@0800,1200,1800 05/29/20 05/29/20 Calcium Carbonate [Tums] 1,000 mg PO BID@0800,1600 05/29/20 05/29/20 Furosemide [Lasix] 80 mg PO BID@0800,1600 05/29/20 05/29/20 Midodrine [ProAmatine] 10 mg PO TID@0800,1200,1800 05/29/20 05/29/20 Povidone-Iodine [Betadine] 1 applic TOPICAL DAILY 05/29/20 05/29/20 Rosuvastatin [Crestor] 10 mg PO DAILY 05/29/20 05/29/20 Triamcinolone 0.1% Cream [Kenalog 1 applic TOPICAL BID 05/29/20 05/29/20 0.1% Cream] Triamcinolone 1% Cream Mixture 1 applic TOPICAL DAILY 05/29/20 05/29/20 traMADol HCL 25 mg PO Q6H PRN 05/29/20 05/29/20 Previous Rx's Medication Instructions Recorded Acetaminophen Tab [Tylenol] 500 mg PO Q6HR PRN tab 01/25/19 Insulin Glargine,Hum.rec.anlog 10 unit SQ DAILY #1 pen 11/05/19 [Lantus Solostar] Docusate [Colace] 100 mg PO DAILY PRN cap 01/12/20 Ergocalciferol [Vitamin D2 50,000 unit PO Q72H cap 01/12/20 (DRISDOL)] Pantoprazole [Protonix] 40 mg PO DAILY tablet. 01/12/20 Allergies Allergy/AdvReac Type Severity Reaction Status Date / Time atorvastatin [From Lipitor] AdvReac MUSCLE/JOINT Verified 05/29/20 13:28 PAIN Review of Systems ROS Statement: Those systems with pertinent positive or pertinent negative responses have been documented in the HPI. ROS Other: All systems not noted in ROS Statement are negative. Past Medical History Past Medical History: Atrial Fibrillation, Coronary Artery Disease (CAD), Heart Failure, Diabetes Mellitus, GERD/Reflux, Hyperlipidemia, Hypertension, Myocardia l Infarction (CA), Osteoarthritis (OA), Renal Disease, Vascular Disorder Additional Past Medical History / Comment(s): Pt recently admitted to [facility] on 01/16/19 with bilateral lower extremity cellulitis with multiple ulcers-positive for klebsiella/pseudomonas, uncontrolled diabetes, pleural effusion with R thoracentesis, exacerbation CHF. Other Hx: Paroxysmal Aflutter, PAD, chronic bilateral venous stasis dermatitis, lower extremety infection/blisters, chronic CHF, IDDM type II, BPH, post CABG urinary retention, CRD stage III, Last Myocardial Infarction Date:: 12/08/18 History of Any Multi-Drug Resistant Organisms: None Reported Past Surgical History: Appendectomy, Coronary Bypass/CABG, Heart Catheterization With Stent Additional Past Surgical History / Comment(s): 12/08/18 CABG 4 vessels, PCI with stents 2004, cardioversion for Aflutter, bilateral cataract removals/lens implants. Past Anesthesia/Blood Transfusion Reactions: No Reported Reaction Additional Past Anesthesia/Blood Transfusion Reaction / Comment(s): Pt received blood with CABG Date of Last Stent Placement:: 2004 Past Psychological History: No Psychological Hx Reported Additional Psychological History / Comment(s): Single. No children. No pets. Remote tobacco use. No international travel since his experience. 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 He quit drinking 1973 Past Drug Use History: None Reported - Past Family History Mother Family Medical History: Myocardial Infarction (CA) Additional Family Medical History / Comment(s): Mother had a CA at the age of 64 Father Additional Family Medical History / Comment(s): Father had mental health issues after a "bad" truck accident. General Exam - General Exam Comments Initial Comments: GENERAL: Patient is well-developed and well-nourished. Patient is nontoxic and well- hydrated and is in mild distress. ENT: Neck is soft and supple. No significant lymphadenopathy is noted. Oropharynx is clear. Moist mucous membranes. Neck has full range of motion without eliciting any pain. EYES: The sclera were anicteric and conjunctiva were pink and moist. Extraocular movements were intact and pupils were equal round and reactive to light. Eyelids were unremarkable. PULMONARY: Unlabored respirations. Good breath sounds bilaterally. No audible rales rhonchi or wheezing was noted. CARDIOVASCULAR: There is a regular rate and rhythm without any murmurs gallops or rubs. Patient's right lateral chest has significant amount of petechiae and is tender to palpation. ABDOMEN: Patient's abdomen is slightly distended and diffusely mildly tender no rebound or guarding SKIN: Patient has a petechial rash all over his body on his back abdomen chest and as well as his extremities. Patient has a couple areas on his legs that appear to be more ecchymosis then petechiae. Unknown of the areas are blanching. NEUROLOGIC: Patient is alert and oriented x3. Cranial nerves II through XII are grossly intact. Motor and sensory are also intact. Normal speech, volume and content. Symmetrical smile. MUSCULOSKELETAL: Normal extremities with adequate strength and full range of motion. LYMPHATICS: No significant lymphadenopathy is noted PSYCHIATRIC: Normal psychiatric evaluation. Course Vital Signs 05/29/20 05/29/20 13:14 16:00 Temperature 97.2 F L Pulse Rate 74 72 Respiratory 20 16 Rate Blood Pressure 94/52 91/60 O2 Sat by Pulse 100 95 Oximetry Medical Decision Making - Medical Decision Making EKG shows atrial fibrillation at 73 bpm QRS is 178 QT interval is 480 QTC is 528. Patient has a right bundle branch block. Patient's EKG is compared to an old EKG EKG changes are noted. Chest x-ray shows some pulmonary edema. Patient received Lasix. I spoke with [facility] agreed to admit the patient admitted the patient wrote admitting orders. I did a type and screen because the patient's hemoglobin was significantly lower than it had previously been. - Lab Data Result diagrams: 05/29/20 13:24 05/29/20 13:24 Lab Results 05/29/20 05/29/20 05/29/20 Range/Units 13:24 13:24 13:24 WBC 7.5 (3.8-10.6) k/uL RBC 2.70 L (4.30-5.90) m/uL Hgb 7.3 L (13.0-17.5) gm/dL Hct 24.6 L (39.0-53.0) % MCV 91.3 (80.0-100.0) fL MCH 27.1 (25.0-35.0) pg MCHC 29.7 L (31.0-37.0) g/dL RDW 20.8 H (11.5-15.5) % Plt Count 207 (150-450) k/uL Neutrophils % 86 % Lymphocytes % 6 % Monocytes % 4 % Eosinophils % 2 % Basophils % 0 % Neutrophils # 6.4 (1.3-7.7) k/uL Lymphocytes # 0.5 L (1.0-4.8) k/uL Monocytes # 0.3 (0-1.0) k/uL Eosinophils # 0.2 (0-0.7) k/uL Basophils # 0.0 (0-0.2) k/uL Hypochromasia Marked Anisocytosis Moderate Macrocytosis Slight PT 12.9 H (9.0-12.0) sec INR 1.3 H (<1.2) APTT 53.1 H (22.0-30.0) sec Sodium 134 L (137-145) mmol/L Potassium 4.1 (3.5-5.1) mmol/L Chloride 97 L (98-107) mmol/L Carbon Dioxide 29 (22-30) mmol/L Anion Gap 8 mmol/L BUN 45 H (9-20) mg/dL Creatinine 3.25 H (0.66-1.25) mg/dL Est GFR (CKD-EPI)AfAm 20 (>60 ml/min/1.73 sqM) Est GFR (CKD-EPI)NonAf 17 (>60 ml/min/1.73 sqM) Glucose 74 (74-99) mg/dL Plasma Lactic Acid Gutierrez (0.7-2.0) mmol/L Calcium 7.8 L (8.4-10.2) mg/dL Magnesium 1.9 (1.6-2.3) mg/dL Total Bilirubin 0.8 (0.2-1.3) mg/dL AST 68 H (17-59) U/L ALT 78 H (4-49) U/L Alkaline Phosphatase 419 H (38-126) U/L Troponin I (0.000-0.034) ng/mL Total Protein 5.7 L (6.3-8.2) g/dL Albumin 2.9 L (3.5-5.0) g/dL 05/29/20 05/29/20 Range/Units 13:24 13:24 WBC (3.8-10.6) k/uL RBC (4.30-5.90) m/uL Hgb (13.0-17.5) gm/dL Hct (39.0-53.0) % MCV (80.0-100.0) fL MCH (25.0-35.0) pg MCHC (31.0-37.0) g/dL RDW (11.5-15.5) % Plt Count (150-450) k/uL Neutrophils % % Lymphocytes % % Monocytes % % Eosinophils % % Basophils % % Neutrophils # (1.3-7.7) k/uL Lymphocytes # (1.0-4.8) k/uL Monocytes # (0-1.0) k/uL Eosinophils # (0-0.7) k/uL Basophils # (0-0.2) k/uL Hypochromasia Anisocytosis Macrocytosis PT (9.0-12.0) sec INR (<1.2) APTT (22.0-30.0) sec Sodium (137-145) mmol/L Potassium (3.5-5.1) mmol/L Chloride (98-107) mmol/L Carbon Dioxide (22-30) mmol/L Anion Gap mmol/L BUN (9-20) mg/dL Creatinine (0.66-1.25) mg/dL Est GFR (CKD-EPI)AfAm (>60 ml/min/1.73 sqM) Est GFR (CKD-EPI)NonAf (>60 ml/min/1.73 sqM) Glucose (74-99) mg/dL Plasma Lactic Acid Gutierrez 1.0 (0.7-2.0) mmol/L Calcium (8.4-10.2) mg/dL Magnesium (1.6-2.3) mg/dL Total Bilirubin (0.2-1.3) mg/dL AST (17-59) U/L ALT (4-49) U/L Alkaline Phosphatase (38-126) U/L Troponin I 0.058 H* (0.000-0.034) ng/mL Total Protein (6.3-8.2) g/dL Albumin (3.5-5.0) g/dL Disposition Clinical Impression: Pulmonary edema, Petechial rash, Renal failure Disposition: ADMITTED IP TO THIS HOSP Referrals: [facility],Clinic [Primary Care Provider] - 1-2 days Time of Disposition: 16:30
[2020-05-29 13:46] LABS: Anisocytosis Moderate; Basophils % (A) 0 %; Eosinophils # (A) 0.2 k/uL (0-0.7); Eosinophils % (A) 2 %; HCT 24.6 % (39.0-53.0); HGB 7.3 gm/dL (13.0-17.5); Hypochromasia Marked; Lymphocytes # (A) 0.5 k/uL (1.0-4.8); Lymphocytes % (A) 6 %; MCH 27.1 pg (25.0-35.0); MCHC 29.7 g/dL (31.0-37.0); MCV 91.3 fL (80.0-100.0); Macrocytosis Slight; Mean Platelet Volume 7.3; Monocytes # (A) 0.3 k/uL (0-1.0); Monocytes % (A) 4 %; Neutrophils # (A) 6.4 k/uL (1.3-7.7); Neutrophils % (A) 86 %; Platelet Count 207 k/uL (150-450); RDW 20.8 % (11.5-15.5); WBC 7.5 k/uL (3.8-10.6)
[2020-05-29 13:55] LABS: INR 1.3 (<1.2); Partial Thromboplastin Time 53.1 sec (22.0-30.0); Prothrombin Time 12.9 sec (9.0-12.0)
[2020-05-29 14:06] LABS: Albumin 2.9 g/dL (3.5-5.0); Calcium 7.8 mg/dL (8.4-10.2); Total Bilirubin 0.8 mg/dL (0.2-1.3); Total Protein 5.7 g/dL (6.3-8.2)
--- NOTE | 2020-05-29 14:14 | XR ---
EXAMINATION TYPE: XR chest 2V DATE OF EXAM: 05/29/2020 COMPARISON: 05/19/2020 TECHNIQUE: PA and lateral views submitted. HISTORY: Shortness of breath and weakness FINDINGS: A dialysis catheter seen the tip overlying the SVC. The heart is enlarged. There is postoperative shaquille nges. Bilateral infiltrate and pleural effusion with diffuse increased interstitial pattern. Cardiome robby noted. No pneumothorax. Arthropathy of the shoulders. Hypertrophic and degenerative changes of t he spine. Atherosclerotic change aorta. IMPRESSION: 1. Stable x-ray most typical of CH. Underlying infiltrate not excluded.
[2020-05-29 14:27] LABS: Magnesium 1.9 mg/dL (1.6-2.3); Potassium 4.1 mmol/L (3.5-5.1)
[2020-05-29] MEDS ORDERED: FUROSEMIDE 10 MG/ML 10 ML VIAL IV STA (16:28)
[2020-05-29 19:48] LABS: Glucose,Whole Blood 59 mg/dL (75-99)
[2020-05-29 20:02] LABS: Glucose,Whole Blood 62 mg/dL (75-99)
[2020-05-29 20:19] LABS: Glucose,Whole Blood 71 mg/dL (75-99)
[2020-05-29] MEDS ORDERED: ACETAMINOPHEN TAB 500 MG TAB PO PRN (20:33)
[2020-05-29 20:42] LABS: Glucose,Whole Blood 97 mg/dL (75-99)
[2020-05-29] MEDS ORDERED: MELATONIN 5 MG TABLET PO SCH (21:00)
[2020-05-29] MEDS: METOPROLOL TARTRATE 25 MG TAB PO SCH (21:26)
[2020-05-29] MEDS: MELATONIN 5 MG TABLET PO SCH (21:26)
[2020-05-29] MEDS: FUROSEMIDE 80 MG TAB PO SCH (21:27)
[2020-05-29] MEDS: TAMSULOSIN 0.4 MG CAP.ER.24H PO SCH (21:27)
[2020-05-30 02:03] LABS: Glucose,Whole Blood 134 mg/dL (75-99)
[2020-05-30 04:16] LABS: Appearance,Urine Turbid (Clear); Bilirubin,Urine Negative (Negative); Blood,Urine Moderate (Negative); Color,Urine Dark Red; Glucose,Urine (UA) Negative (Negative); Ketones,Urine Negative (Negative); Leukocyte Esterase,Urine Large (Negative); Nitrite,Urine Negative (Negative); Protein,Urine 1+ (Negative); RBC,Urine 107 /hpf (0-5); Urobilinogen,Urine <2.0 mg/dL (<2.0); WBC,Urine >182 /hpf (0-5)
[2020-05-30 06:17] LABS: Glucose,Whole Blood 208 mg/dL (75-99)
[2020-05-30] MEDS ORDERED: DOCUSATE 100 MG CAP PO PRN (07:57)
[2020-05-30] MEDS ORDERED: BACITRACIN ZINC 500 UNIT/GM OINT 28.4 GM TUBE TOPICAL PRN (07:57)
[2020-05-30] MEDS ORDERED: ONDANSETRON 4 MG TAB PO PRN (07:57)
[2020-05-30] MEDS ORDERED: CALCIUM CARBONATE 500 MG CHEWABLE PO SCH (08:00)
[2020-05-30] MEDS ORDERED: CALCIUM ACETATE 667 MG TAB PO SCH (08:00)
[2020-05-30] MEDS ORDERED: FUROSEMIDE 80 MG TAB PO SCH (08:00)
[2020-05-30] MEDS ORDERED: METOPROLOL TARTRATE 25 MG TAB PO SCH (08:00)
[2020-05-30] MEDS ORDERED: APIXABAN 2.5 MG TABLET PO SCH (08:00)
[2020-05-30] MEDS ORDERED: TAMSULOSIN 0.4 MG CAP.ER.24H PO SCH (08:00)
[2020-05-30] MEDS: MIDODRINE 5 MG TAB PO SCH ×3 (08:31→17:58)
--- NOTE | 2020-05-30 09:24 | P.HPIM ---
History of Present Illness This is a pleasant 80 years old male with multiple medical problems including end-stage renal disease on hemodialysis, chronic atrial fibrillation on Eliquis, coronary artery disease, heart failure, diabetes mellitus, GERD, hyperlipidemia, hypertension, osteoarthritis, bilateral heel pressure ulcers, chronic bilateral venous stasis dermatitis, BPH, patient has indwelling Torres catheter for 4 months as he is telling me. He was recently in this hospital from 05/16-05/22 for rash and fluid overload. He presents because of generalized weakness and worsening take a rash all over his body of one week duration. Rash is itching and its more in the extremities but also on the trunk and more confluent in the feet and in the inguinal areas. He has some few petechia of the month but no mouth ulcer. No genital ulcer. He denies chest pain or dyspnea, he has some occasional cough and phlegm. No abdominal pain, no nausea vomiting. No diarrhea. He had an episode of diarrhea about one week ago. Patient is compliant with his hemodialysis treatment and he did not miss one as he states. No fever. No dizziness Also patient has bilateral heel pressure ulcers with black scab on top, no surrounding cellulitis Vitals are stable and patient is afebrile. He is saturating 95% on room air. Blood pressure on the low normal side at 96/57 Hemoglobin 7.3, which is close to his baseline. No leukocytosis and platelet count is normal at 207K. INR 1.3. Glucose was low last night 59, creatinine 3.2, sodium 134, liver enzymes slightl y elevated at 68 AST and 78 ALT, troponin is slightly elevated at 0.058, while troponin is chronically elevated with baseline 0.05-0.1. Urine analysis showing leukocyte esterase large, and WBC more than 182 EKG showing atrial fibrillation at 73 with QTC [address]-T changes. Chest x-ray: Stable x-ray most typical of CHF, underlying infiltrate not excluded. as per Radiologist Review of Systems CONSTITUTIONAL: No fever, no malaise, no fatigue. HEENT: No recent visual problems or hearing problems. Denied any sore throat. CARDIOVASCULAR: No orthopnea, PND, no palpitations, no syncope. PULMONARY: No shortness of breath, no cough, no hemoptysis. GASTROINTESTINAL: No diarrhea, no nausea, no vomiting, no abdominal pain. Normoactive bowel sounds. NEUROLOGICAL: No headaches, no weakness, no numbness. HEMATOLOGICAL: Denies any bleeding or petechiae. GENITOURINARY: Denies any burning micturition, frequency, or urgency. MUSCULOSKELETAL/RHEUMATOLOGICAL: Denies any joint pain, swelling, or any muscle pain. ENDOCRINE: Denies any polyuria or polydipsia. Past Medical History Past Medical History: Atrial Fibrillation, Coronary Artery Disease (CAD), Heart Failure, Diabetes Mellitus, GERD/Reflux, Hyperlipidemia, Hypertension, Myocardial Infarction (CA), Osteoarthritis (OA), Renal Disease, Vascular Dis order Additional Past Medical History / Comment(s): Pt recently admitted to [facility] on 01/16/19 with bilateral lower extremity cellulitis with multiple ulcers-positive for klebsiella/pseudomonas, uncontrolled diabetes, pleural effusion with R thoracentesis, exacerbation CHF. Other Hx: Paroxysmal Aflutter, PAD, chronic bilateral venous stasis dermatitis, lower extremety infection/blisters, chronic CHF, IDDM type II, BPH, post CABG urinary retention, CRD stage III, Last Myocardial Infarction Date:: 12/08/18 History of Any Multi-Drug Resistant Organisms: None Reported Past Surgical History: Appendectomy, Coronary Bypass/CABG, Heart Catheterization With Stent Additional Past Surgical History / Comment(s): 12/08/18 CABG 4 vessels, PCI with stents 2004, cardioversion for Aflutter, bilateral cataract removals/lens implants. Past Anesthesia/Blood Transfusion Reactions: No Reported Reaction Additional Past Anesthesia/Blood Transfusion Reaction / Comment(s): Pt received blood with CABG Date of Last Stent Placement:: 2004 Past Psychological History: No Psychological Hx Reported Additional Psychological History / Comment(s): Single. No children. No pets. Remote tobacco use. No international travel since his experience. Worked on [employer] Smoking Status: Never smoker Past Alcohol Use History: None Reported Additional Past Alcohol Use History / Comment(s): Pt smoked for one month in 1963. He quit drinking 1973 Past Drug Use History: None Reported - Past Family History Mother Family Medical History: Myocardial Infarction (CA) Additional Family Medical History / Comment(s): Mother had a CA at the age of 64 Father Additional Family Medical History / Comment(s): Father had mental health issues after a "bad" truck accident. Medications and Allergies Home Medications Medication Instructions Recorded Confirmed Type Acetaminophen Tab [Tylenol] 500 mg PO Q6HR PRN tab 01/25/19 05/29/20 Rx Metoprolol Tartrate [Lopressor] 25 mg PO BID@0800,1600 02/08/19 05/29/20 History Ferrous Sulfate [Iron (65 MG 325 mg PO DAILY 07/27/19 05/29/20 History Elemental)] Ammonium Lactate Cream [Lac-Hydrin 1 applic TOPICAL BID PRN 10/30/19 05/29/20 History 12% Cream] Bacitracin Zinc Oint 1 applic TOPICAL BID PRN 10/30/19 05/29/20 History Finasteride [Proscar] 5 mg PO DAILY 10/30/19 05/29/20 History Insulin Glargine,Hum.rec.anlog 10 unit SQ DAILY #1 pen 11/05/19 05/29/20 Rx [Lantus Solostar] Albuterol Sulfate [Ventolin HFA] 2 puff INHALATION RT-Q4H PRN 12/26/19 05/29/20 History Docusate [Colace] 100 mg PO DAILY PRN cap 01/12/20 05/29/20 Rx Ergocalciferol [Vitamin D2 50,000 unit PO Q72H cap 01/12/20 05/29/20 Rx (DRISDBEN)] Pantoprazole [Protonix] 40 mg PO DAILY tablet. 01/12/20 05/29/20 Rx Apixaban [Eliquis] 2.5 mg PO BID@0800,1600 04/07/20 05/29/20 History Insulin Aspart [NovoLOG Flexpen] See Protocol SQ TID-W/MEALS 04/07/20 05/29/20 History Melatonin 5 mg PO HS 04/07/20 05/29/20 History Ondansetron [Zofran] 4 mg PO TID PRN 04/07/20 05/29/20 History Tamsulosin HCl [Flomax] 0.4 mg PO BID@0800,1600 05/16/20 05/29/20 History Ascorbic Acid [Vitamin C] 500 mg PO DAILY 05/29/20 05/29/20 History Calcium Acetate [PhosLo] 667 mg PO TID@0800,1200,1800 05/29/20 05/29/20 History Calcium Carbonate [Tums] 1,000 mg PO BID@0800,1600 05/29/20 05/29/20 History Furosemide [Lasix] 80 mg PO BID@0800,1600 05/29/20 05/29/20 History Midodrine [ProAmatine] 10 mg PO TID@0800,1200,1800 05/29/20 05/29/20 History Povidone-Iodine [Betadine] 1 applic TOPICAL DAILY 05/29/20 05/29/20 History Rosuvastatin [Crestor] 10 mg PO DAILY 05/29/20 05/29/20 History Triamcinolone 0.1% Cream [Kenalog 1 applic TOPICAL BID 05/29/20 05/29/20 History 0.1% Cream] Triamcinolone 1% Cream Mixture 1 applic TOPICAL DAILY 05/29/20 05/29/20 History traMADol HCL 25 mg PO Q6H PRN 05/29/20 05/29/20 History Allergies Allergy/AdvReac Type Severity Reaction Status Date / Time atorvastatin [From Lipitor] AdvReac MUSCLE/JOINT Verified 05/29/20 13:28 PAIN Physical Exam Vitals: Vital Signs Temp Pulse Pulse Resp BP BP Pulse Ox 05/30/20 03:51 97.4 F L 73 14 96/57 94 L 05/30/20 00:00 98.1 F 77 16 85/51 97 05/29/20 21:00 97.9 F 77 16 99/51 98 05/29/20 20:00 97.9 F 78 16 100/52 97 05/29/20 18:56 97.8 F 72 16 100/58 96 05/29/20 18:00 71 16 94/60 95 05/29/20 17:00 72 16 102/62 97 05/29/20 16:00 72 16 91/60 95 05/29/20 14:00 71 16 93/62 95 05/29/20 13:14 97.2 F L 74 20 94/52 100 Intake and Output 05/29/20 05/30/20 05/30/20 22:59 06:59 14:59 Output Total 0 Balance 0 Output: Urine 0 Other: Voiding Method Indwelling Catheter Indwelling Catheter # Voids 0 # Bowel Movements 1 Weight 83.915 kg 80 kg GENERAL: The patient is alert and oriented x3, not in any acute distress. Well developed, well nourished. HEENT: Pupils are round and equally reacting to light. EOMI. No scleral icterus. No conjunctival pallor. Normocephalic, atraumatic. No pharyngeal erythema. No thyromegaly. CARDIOVASCULAR: S1 and S2 present. No murmurs, rubs, or gallops. PULMONARY: Chest is clear to auscultation, no wheezing or crackles. ABDOMEN: Soft, nontender, nondistended, normoactive bowel sounds. No palpable organomegaly. MUSCULOSKELETAL: No joint swelling or deformity. EXTREMITIES: No cyanosis, clubbing, or pedal edema. NEUROLOGICAL: Gross neurological examination did not reveal any focal deficits. -SKIN: No rashes. Has generalized petechial rash, more confluent in the ingui nal areas and both feet. With some itching. No mouth ulcers Results CBC & Chem 7: 05/29/20 13:24 05/29/20 13:24 Labs: Abnormal Lab Results - Last 24 Hours (Table) 05/29/20 05/29/20 05/29/20 Range/Units 03:49 13:24 13:24 RBC 2.70 L (4.30-5.90) m/uL Hgb 7.3 L (13.0-17.5) gm/dL Hct 24.6 L (39.0-53.0) % MCHC 29.7 L (31.0-37.0) g/dL RDW 20.8 H (11.5-15.5) % Lymphocytes # 0.5 L (1.0-4.8) k/uL PT 12.9 H (9.0-12.0) sec INR 1.3 H (<1.2) APTT 53.1 H (22.0-30.0) sec Sodium (137-145) mmol/L Chloride (98-107) mmol/L BUN (9-20) mg/dL Creatinine (0.66-1.25) mg/dL POC Glucose (mg/dL) (75-99) mg/dL Calcium (8.4-10.2) mg/dL AST (17-59) U/L ALT (4-49) U/L Alkaline Phosphatase (38-126) U/L Troponin I (0.000-0.034) ng/mL Total Protein (6.3-8.2) g/dL Albumin (3.5-5.0) g/dL Urine Protein 1+ H (Negative) Urine Blood Moderate H (Negative) Ur Leukocyte Esterase Large H (Negative) Urine RBC 107 H (0-5) /hpf Urine WBC >182 H (0-5) /hpf Urine WBC Clumps Many H (None) /hpf 05/29/20 05/29/20 05/29/20 Range/Units 13:24 13:24 19:46 RBC (4.30-5.90) m/uL Hgb (13.0-17.5) gm/dL Hct (39.0-53.0) % MCHC (31.0-37.0) g/dL RDW (11.5-15.5) % Lymphocytes # (1.0-4.8) k/uL PT (9.0-12.0) sec INR (<1.2) APTT (22.0-30.0) sec Sodium 134 L (137-145) mmol/L Chloride 97 L (98-107) mmol/L BUN 45 H (9-20) mg/dL Creatinine 3.25 H (0.66-1.25) mg/dL POC Glucose (mg/dL) 59 L (75-99) mg/dL Calcium 7.8 L (8.4-10.2) mg/dL AST 68 H (17-59) U/L ALT 78 H (4-49) U/L Alkaline Phosphatase 419 H (38-126) U/L Troponin I 0.058 H* (0.000-0.034) ng/mL Total Protein 5.7 L (6.3-8.2) g/dL Albumin 2.9 L (3.5-5.0) g/dL Urine Protein (Negative) Urine Blood (Negative) Ur Leukocyte Esterase (Negative) Urine RBC (0-5) /hpf Urine WBC (0-5) /hpf Urine WBC Clumps (None) /hpf 05/29/20 05/29/20 05/30/20 Range/Units 20:00 20:19 02:01 RBC (4.30-5.90) m/uL Hgb (13.0-17.5) gm/dL Hct (39.0-53.0) % MCHC (31.0-37.0) g/dL RDW (11.5-15.5) % Lymphocytes # (1.0-4.8) k/uL PT (9.0-12.0) sec INR (<1.2) APTT (22.0-30.0) sec Sodium (137-145) mmol/L Chloride (98-107) mmol/L BUN (9-20) mg/dL Creatinine (0.66-1.25) mg/dL POC Glucose (mg/dL) 62 L 71 L 134 H (75-99) mg/dL Calcium (8.4-10.2) mg/dL AST (17-59) U/L ALT (4-49) U/L Alkaline Phosphatase (38-126) U/L Troponin I (0.000-0.034) ng/mL Total Protein (6.3-8.2) g/dL Albumin (3.5-5.0) g/dL Urine Protein (Negative) Urine Blood (Negative) Ur Leukocyte Esterase (Negative) Urine RBC (0-5) /hpf Urine WBC (0-5) /hpf Urine WBC Clumps (None) /hpf 05/30/20 Range/Units 06:16 RBC (4.30-5.90) m/uL Hgb (13.0-17.5) gm/dL Hct (39.0-53.0) % MCHC (31.0-37.0) g/dL RDW (11.5-15.5) % Lymphocytes # (1.0-4.8) k/uL PT (9.0-12.0) sec INR (<1.2) APTT (22.0-30.0) sec Sodium (137-145) mmol/L Chloride (98-107) mmol/L BUN (9-20) mg/dL Creatinine (0.66-1.25) mg/dL POC Glucose (mg/dL) 208 H (75-99) mg/dL Calcium (8.4-10.2) mg/dL AST (17-59) U/L ALT (4-49) U/L Alkaline Phosphatase (38-126) U/L Troponin I (0.000-0.034) ng/mL Total Protein (6.3-8.2) g/dL Albumin (3.5-5.0) g/dL Urine Protein (Negative) Urine Blood (Negative) Ur Leukocyte Esterase (Negative) Urine RBC (0-5) /hpf Urine WBC (0-5) /hpf Urine WBC Clumps (None) /hpf Thrombosis Risk Factor Assmnt - Choose All That Apply Each Risk Factor Represents 3 Points: Age 75 years or older Thrombosis Risk Factor Assessment Total Risk Factor Score: 3 Thrombosis Risk Factor Assessment Level: Moderate Risk Assessment and Plan Assessment: Petechal rash, with itching Generalized weakness asymptomatic bacteriuria End stage renal disease on hemodialysis Bilateral heel pressure ulcers Acute on chronic systolic CHF with ejection fraction of 40-45%, with moderate tricuspid regurgitation and severe pulmonary hypertension Diabetes mellitus Hypertension Hyperlipidemia Osteoarthritis GERD Bilateral heel pressure ulcer Chronic bilateral venous stasis dermatitis Benign prostatic hypertrophy Plan: Patient is a 80 E. old male who presents because of rash, on the left overload. Continue with hemodialysis per nephrology consult. we'll try to call dermatolog y consult if it is available in house. Continue with diuretic. Continue with Eliquis, continue with medodrain and follow-up blood pressure. Patient was on Lantus 10 units daily, we will hold that and continue with insulin sliding scale. Check B12, TSH, folate and physical throughout Labs and medication were reviewed.. Continue same treatment. Continue with symptomatic treatment. Resume home medication. Monitor lytes and vitals. DVT and GI prophylaxis. Further recommendations depends on the clinical course of the patient DVT prophylaxis: Eliquis GI Prophylaxis: Ppi PT/OT: Pending Prognosis is guarded
[2020-05-30 10:28] VITALS: BMI 28.4
--- NOTE | 2020-05-30 11:44 | P.NPCON ---
History of Present Illness - Reason for Consult end stage renal disease - History of Present Illness reason for consultation: End-stage renal disease History of present illness: patient is a 80-year-old male seen in consultation for end-stage renal disease. He is maintained on hemodialysis on Wednesday schedule. Currently seen one underwent hemodialysis and tolerating it well. patient was sent from [facility] due to generalized weakness and worsening of the petechial rash. The rash has been there for the last 2-3 weeks but is worsening.patient's platelet count has been normal. INR is normal. serologies including Anca titers and ZOFIA were negative from last admission.chest x-ray was suggestive of CHF. patient has history of systolic CHF with ejection fraction of 40-45% with moderate aortic stenosis, tricuspid regurgitation and severe pulmonary hypertension. blood pressure stable. Maintain on midodrine. No fever or chills. No vomiting or diarrhea. Vital signs are stable. General: The patient appeared well nourished and normally developed. HEENT: Head exam is unremarkable. Neck is without jugular venous distension. LUNGS: Breath sounds decreased. HEART: Rate and Rhythm are regular. murmur present. ABDOMEN: soft, nontender. EXTREMITITES: multiple petechiae noted. No drainage. 1+ edema. Past Medical History Past Medical History: Atrial Fibrillation, Coronary Artery Disease (CAD), Heart Failure, Diabetes Mellitus, GERD/Reflux, Hyperlipidemia, Hypertension, Myocardial Infarction (NV), Osteoarthritis (OA), Renal Disease, Vascular Disorder Additional Past Medical History / Comment(s): Pt recently admitted to [facility] on 01/16/19 with bilateral lower extremity cellulitis with multiple ulcers-positive for klebsiella/pseudomonas, uncontrolled diabetes, pleural effusion with R thoracentesis, exacerbation CHF. Other Hx: Paroxysmal Aflutter, PAD, chronic bilateral venous stasis dermatitis, lower extremety infection/blisters, chronic CHF, IDDM type II, BPH, post CABG urinary retention, CRD stage III, Last Myocardial Infarction Date:: 12/08/18 History of Any Multi-Drug Resistant Organisms: None Reported Past Surgical History: Appendectomy, Coronary Bypass/CABG, Heart Catheterization With Stent Additional Past Surgical History / Comment(s): 12/08/18 CABG 4 vessels, PCI with stents 2004, cardioversion for Aflutter, bilateral cataract removals/lens implants. Past Anesthesia/Blood Transfusion Reactions: No Reported Reaction Additional Past Anesthesia/Blood Transfusion Reaction / Comment(s): Pt received blood with CABG Date of Last Stent Placement:: 2004 Past Psychological History: No Psychological Hx Reported Additional Psychological History / Comment(s): Single. No children. No pets. Remote tobacco use. No international travel since his experience. Worked on [employer] Smoking Status: Never smoker Past Alcohol Use History: None Reported Additional Past Alcohol Use History / Comment(s): Pt smoked for one month in 1963. He quit drinking 1973 Past Drug Use History: None Reported - Past Family History Mother Family Medical History: Myocardial Infarction (NV) Additional Family Medical History / Comment(s): Mother had a NV at the age of 64 Father Additional Family Medical History / Comment(s): Father had mental health issues after a "bad" truck accident. Medications and Allergies Home Medications Medication Instructions Recorded Confirmed Type Acetaminophen Tab [Tylenol] 500 mg PO Q6HR PRN tab 01/25/19 05/29/20 Rx Metoprolol Tartrate [Lopressor] 25 mg PO BID@0800,1600 02/08/19 05/29/20 History Ferrous Sulfate [Iron (65 MG 325 mg PO DAILY 07/27/19 05/29/20 History Elemental)] Ammonium Lactate Cream [Lac-Hydrin 1 applic TOPICAL BID PRN 10/30/19 05/29/20 History 12% Cream] Bacitracin Zinc Oint 1 applic TOPICAL BID PRN 10/30/19 05/29/20 History Finasteride [Proscar] 5 mg PO DAILY 10/30/19 05/29/20 History Insulin Glargine,Hum.rec.anlog 10 unit SQ DAILY #1 pen 11/05/19 05/29/20 Rx [Lantus Solostar] Albuterol Sulfate [Ventolin HFA] 2 puff INHALATION RT-Q4H PRN 12/26/19 05/29/20 History Docusate [Colace] 100 mg PO DAILY PRN cap 01/12/20 05/29/20 Rx Ergocalciferol [Vitamin D2 50,000 unit PO Q72H cap 01/12/20 05/29/20 Rx (DRISDOL)] Pantoprazole [Protonix] 40 mg PO DAILY tablet. 01/12/20 05/29/20 Rx Apixaban [Eliquis] 2.5 mg PO BID@0800,1600 08/02/20 09/23/20 History Insulin Aspart [NovoLOG Flexpen] See Protocol SQ TID-W/MEALS 04/07/20 05/29/20 History Melatonin 5 mg PO HS 04/07/20 05/29/20 History Ondansetron [Zofran] 4 mg PO TID PRN 04/07/20 05/29/20 History Tamsulosin HCl [Flomax] 0.4 mg PO BID@0800,1600 05/16/20 05/29/20 History Ascorbic Acid [Vitamin C] 500 mg PO DAILY 05/29/20 05/29/20 History Calcium Acetate [PhosLo] 667 mg PO TID@0800,1200,1800 05/29/20 05/29/20 History Calcium Carbonate [Tums] 1,000 mg PO BID@0800,1600 05/29/20 05/29/20 History Furosemide [Lasix] 80 mg PO BID@0800,1600 05/29/20 05/29/20 History Midodrine [ProAmatine] 10 mg PO TID@0800,1200,1800 05/29/20 05/29/20 History Povidone-Iodine [Betadine] 1 applic TOPICAL DAILY 05/29/20 05/29/20 History Rosuvastatin [Crestor] 10 mg PO DAILY 05/29/20 05/29/20 History Triamcinolone 0.1% Cream [Kenalog 1 applic TOPICAL BID 05/29/20 05/29/20 History 0.1% Cream] Triamcinolone 1% Cream Mixture 1 applic TOPICAL DAILY 05/29/20 05/29/20 History traMADol HCL 25 mg PO Q6H PRN 05/29/20 05/29/20 History Allergies Allergy/AdvReac Type Severity Reaction Status Date / Time atorvastatin [From Lipitor] AdvReac MUSCLE/JOINT Verified 05/29/20 13:28 PAIN Physical Exam Vitals: Vital Signs Temp Pulse Pulse Resp BP BP Pulse Ox 05/30/20 08:00 96.2 F L 78 18 102/60 96 05/30/20 03:51 97.4 F L 73 14 96/57 94 L 05/30/20 00:00 98.1 F 77 16 85/51 97 05/29/20 21:00 97.9 F 77 16 99/51 98 05/29/20 20:00 97.9 F 78 16 100/52 97 05/29/20 18:56 97.8 F 72 16 100/58 96 05/29/20 18:00 71 16 94/60 95 05/29/20 17:00 72 16 102/62 97 05/29/20 16:00 72 16 91/60 95 05/29/20 14:00 71 16 93/62 95 05/29/20 13:14 97.2 F L 74 20 94/52 100 Intake and Output 05/29/20 05/30/20 05/30/20 22:59 06:59 14:59 Intake Total 230 Output Total 0 Balance 0 230 Intake: Oral 230 Output: Urine 0 Other: Voiding Method Indwelling Catheter Indwelling Catheter Indwelling Catheter # Voids 0 # Bowel Movements 1 Weight 83.915 kg 80 kg 80 kg Results - Lab Results Most recent lab results Calcium 7.8 mg/dL (8.4-10.2) L 05/29/20 13:24 Magnesium 1.9 mg/dL (1.6-2.3) 05/29/20 13:24 05/29/20 13:24 05/29/20 13:24 Assessment and Plan Plan: assessment: 1. End-stage renal disease maintained on hemodialysis on Wednesday schedule. 2. Acute on chronic systolic CHF ejection fraction of 45-50% with moderate aortic stenosis, tricuspid regurgitation. 3. Severe pulmonary hypertension. 4. Volume overload. 5. Chronic hypotension maintained on midodrine. 6. Generalized petechiae rash. Vasculitis serologies negative. Unclear cause - ?viral. 7. Anemia of chronic kidney disease. Plan: Currently seen while undergoing hemodialysis. Next treatment on Wednesday. Add Aranesp. check phosphorus level. overall prognosis guarded. I did discuss with the patient the possibility of hospice. Patient isn't sure at this time. Thank you for the consultation. I will continue to follow the patient with you during his hospital stay.
[2020-05-30 11:56] LABS: Glucose,Whole Blood 114 mg/dL (75-99)
[2020-05-30] MEDS ORDERED: DARBEPOETIN ALFA 40 MCG/0.4 ML SYRINGE SQ SCH (12:00)
[2020-05-30] MEDS: ALBUTEROL HFA INHALER INHALATION PRN ×3 (12:09→19:33)
--- NOTE | 2020-05-30 12:16 | CDI ---
Documentation Clarification Form Date: 05/30/2020 11:59:58 AM From: Zofia Morales Admit Date: 05/29/2020 04:31:00 PM Patient Name: Neto Brice Visit Number: [id number] Discharge Date: ATTENTION: The Clinical Documentation Specialists (CDI) and [facility] Coding Staff appreciate your assistance in clarifying documentation. Please respond to the clarification below the line at the bottom and electronically sign. The CDI & [facility] Coding staff will review the response and follow-up if needed. Please note: Queries are made part of the Legal Health Record. If you have any questions, please contact the author of this message via ITS. Dr. Hendrix E Sheet Bilateral heel pressure ulcers is documented in the H&P 05/30/20 History/Risk Factors: 80-year-old male presents to the ED with shortness of breath and rash. Medical History: CHF; DM; HLD; HTN; ESRD and vascular disorder Clinical Indicators: Location: 05/30 H&P Wound description: Also patient has bilateral heel pressure ulcers with black scab on top, no surrounding cellulitis. Treatment: monitoring skin integrity per protocol Elements for accurate and compliant documentation of an ulcer: *The location/laterality of the ulcer *Etiology (decubitus/pressure, diabetic, PVD) *Stage I-IV, Unstageable, Suspected Deep Tissue Injury (To the deepest stage) *If the ulcer was present at admission (POA) or occurred after admission In your professional opinion, can you please clarify the diagnosis, location, laterality and whether present on admission (POA): Stage 1 Pressure/Decubitus Ulcer (intact skin, non-blanching redness of local area) Stage 2 Pressure/Decubitus Ulcer (Partial thickness, loss of dermis, pink wound bed) Unstageable Other condition, please specify Unable to determine Please indicate etiology of pressure ulcer (if known). (Last Revision: June 2017) Unstageable MTDD
[2020-05-30] MEDS: APIXABAN 5 MG TAB PO SCH ×2 (12:20→12:33)
[2020-05-30] MEDS: TAMSULOSIN 0.4 MG CAP.ER.24H PO SCH ×2 (12:20→17:58)
[2020-05-30] MEDS: FERROUS SULFATE 325 MG TAB PO SCH (12:23)
[2020-05-30] MEDS: FINASTERIDE 5 MG TAB PO SCH (12:23)
[2020-05-30] MEDS: PANTOPRAZOLE 40 MG TABLET PO SCH (12:24)
[2020-05-30] MEDS: FUROSEMIDE 80 MG TAB PO SCH ×2 (13:02→15:54)
[2020-05-30] MEDS: TRIAMCINOLONE 0.1% CREAM 80 GM TUBE TOPICAL SCH ×2 (14:56→20:45)
[2020-05-30] MEDS: METOPROLOL TARTRATE 25 MG TAB PO SCH ×2 (14:56→15:42)
[2020-05-30 15:17] LABS: Calcium 7.6 mg/dL (8.4-10.2); Phosphorus 3.9 mg/dL (2.5-4.5)
[2020-05-30 15:35] LABS: Anisocytosis Moderate; Basophils % (A) 0 %; Eosinophils # (A) 0.2 k/uL (0-0.7); Eosinophils % (A) 2 %; HCT 32.8 % (39.0-53.0); Hypochromasia Marked; Lymphocytes # (A) 0.4 k/uL (1.0-4.8); Lymphocytes % (A) 6 %; MCH 27.6 pg (25.0-35.0); MCHC 29.9 g/dL (31.0-37.0); MCV 92.3 fL (80.0-100.0); Macrocytosis Slight; Mean Platelet Volume 6.9; Monocytes # (A) 0.4 k/uL (0-1.0); Monocytes % (A) 5 %; Neutrophils # (A) 6.2 k/uL (1.3-7.7); Neutrophils % (A) 86 %; Platelet Count 168 k/uL (150-450); RBC 3.55 m/uL (4.30-5.90); RDW 20.9 % (11.5-15.5); WBC 7.2 k/uL (3.8-10.6)
[2020-05-30 15:41] LABS: HGB 9.8 gm/dL (13.0-17.5)
[2020-05-30 16:51] LABS: Glucose,Whole Blood 132 mg/dL (75-99)
[2020-05-30] MEDS: INSULIN ASPART (NovoLOG) 100 UNIT/ML VIAL SQ SCH ×2 (17:18→20:41)
[2020-05-30 20:02] LABS: Glucose,Whole Blood 176 mg/dL (75-99)
[2020-05-30] MEDS: MELATONIN 5 MG TABLET PO SCH (20:40)
[2020-05-30] MEDS: APIXABAN 2.5 MG TABLET PO SCH (20:40)
[2020-05-31] MEDS: AMMONIUM LACTATE 12% CREAM 140 GM TUBE TOPICAL PRN ×2 (01:02→11:56)
[2020-05-31 07:27] LABS: Glucose,Whole Blood 144 mg/dL (75-99)
[2020-05-31] MEDS: PANTOPRAZOLE 40 MG TABLET PO SCH (08:10)
[2020-05-31] MEDS: TAMSULOSIN 0.4 MG CAP.ER.24H PO SCH ×2 (08:10→17:40)
[2020-05-31] MEDS: FERROUS SULFATE 325 MG TAB PO SCH (08:10)
[2020-05-31] MEDS: INSULIN ASPART (NovoLOG) 100 UNIT/ML VIAL SQ SCH ×5 (08:10→21:19)
[2020-05-31] MEDS: FUROSEMIDE 80 MG TAB PO SCH ×2 (08:10→17:40)
[2020-05-31] MEDS: APIXABAN 2.5 MG TABLET PO SCH ×2 (08:10→22:21)
[2020-05-31] MEDS: FINASTERIDE 5 MG TAB PO SCH (08:10)
[2020-05-31 11:29] LABS: Glucose,Whole Blood 179 mg/dL (75-99)
--- NOTE | 2020-05-31 11:30 | P.PN ---
Subjective patient is seen in follow-up for end-stage renal disease. He is maintained on hemodialysis on Wednesday schedule. Tolerated dialysis well yesterday. No chest pain or shortness of breath. no active complaints. Vital signs are stable. General: The patient appeared well nourished and normally developed. HEENT: Head exam is unremarkable. Neck is without jugular venous distension. LUNGS: Lungs are clear to auscultation and percussion. Breath sounds decreased. HEART: Rate and Rhythm are regular. ABDOMEN: soft, nontender. EXTREMITITES: 1+ edema. Generalized petechiae noted. Objective - Vital Signs Vital signs: Vital Signs Temp 97.7 F 05/31/20 05:00 Pulse 80 05/31/20 08:00 Resp 20 05/31/20 08:00 BP 91/54 05/31/20 05:00 Pulse Ox 99 05/31/20 05:00 Intake & Output 05/30/20 05/31/20 05/31/20 18:59 06:59 18:59 Intake Total 500 500 Output Total 2049 50 Balance -1550 450 Weight 80 kg 80 kg Intake: Oral 500 500 Output: Urine 50 50 Hemodialysis 2000 Other: Voiding Method Indwelling Catheter Indwelling Catheter Indwelling Catheter # Voids 0 # Bowel Movements 1 - Labs CBC & Chem 7: 05/30/20 14:47 05/30/20 14:47 Labs: Abnormal Lab Results - Last 24 Hours (Table) 05/30/20 05/30/20 05/30/20 Range/Units 11:51 14:47 14:47 RBC 3.55 L (4.30-5.90) m/uL Hgb 9.8 L D (13.0-17.5) gm/dL Hct 32.8 L (39.0-53.0) % MCHC 29.9 L (31.0-37.0) g/dL RDW 20.9 H (11.5-15.5) % Lymphocytes # 0.4 L (1.0-4.8) k/uL Sodium 133 L (137-145) mmol/L BUN 30 H (9-20) mg/dL Creatinine 2.57 H (0.66-1.25) mg/dL Glucose 127 H (74-99) mg/dL POC Glucose (mg/dL) 114 H (75-99) mg/dL Calcium 7.6 L (8.4-10.2) mg/dL Vitamin B12 (200.0-944.0) pg/mL 05/30/20 05/30/20 05/30/20 Range/Units 14:47 16:49 20:01 RBC (4.30-5.90) m/uL Hgb (13.0-17.5) gm/dL Hct (39.0-53.0) % MCHC (31.0-37.0) g/dL RDW (11.5-15.5) % Lymphocytes # (1.0-4.8) k/uL Sodium (137-145) mmol/L BUN (9-20) mg/dL Creatinine (0.66-1.25) mg/dL Glucose (74-99) mg/dL POC Glucose (mg/dL) 132 H 176 H (75-99) mg/dL Calcium (8.4-10.2) mg/dL Vitamin B12 955.0 H (200.0-944.0) pg/mL 05/31/20 Range/Units 07:24 RBC (4.30-5.90) m/uL Hgb (13.0-17.5) gm/dL Hct (39.0-53.0) % MCHC (31.0-37.0) g/dL RDW (11.5-15.5) % Lymphocytes # (1.0-4.8) k/uL Sodium (137-145) mmol/L BUN (9-20) mg/dL Creatinine (0.66-1.25) mg/dL Glucose (74-99) mg/dL POC Glucose (mg/dL) 144 H (75-99) mg/dL Calcium (8.4-10.2) mg/dL Vitamin B12 (200.0-944.0) pg/mL Microbiology - Last 24 Hours (Table) 05/29/20 03:49 Urine Culture - Preliminary Urine,Clean Catch Assessment and Plan Plan: assessment: 1. End-stage renal disease maintained on hemodialysis on Wednesday schedule. 2. Acute on chronic systolic CHF ejection fraction of 45-50% with moderate aortic stenosis, tricuspid regurgitation. 3. Severe pulmonary hypertension. 4. Volume overload. 5. Chronic hypotension maintained on midodrine. 6. Generalized petechiae rash. Vasculitis serologies negative. Unclear cause - ?viral. 7. Anemia of chronic kidney disease maintained on Aranesp. Plan: hemodialysis tomorrow. phosphorus normal. overall prognosis guarded. I did discuss with the patient the possibility of hospice. patient states he wants to continue dialysis and medications for another week or twp and will then make his decision.
[2020-05-31] MEDS: MIDODRINE 5 MG TAB PO SCH ×4 (11:55→17:38)
--- NOTE | 2020-05-31 14:38 | P.CONS ---
History of Present Illness - Reason for Consult Consult date: 05/31/20 Petechaie Rash Requesting physician: Simeon Beck - Chief Complaint Petechaei Rash - History of Present Illness Mr. Brice is a 80 year old male patient with extensive medical history who has seen Dr. Maegan Sky in the past for evaluation of Chronic disease and Anemia of I adin deficiency. He has known ESRD on Diaylsis, CAD, A fib on ELiquis (2 years on this). He presented almost two weeks ago with diffuse petechaie rash on all areas of body, even a few in mouth. His hemoglobin is not much different than his baseline 8-9. Initial PTT was increased redraw was wnl. LFTs are increased so will evaluate liver with ultrasound. Review of Systems All systems: negative (HPI) Past Medical History Past Medical History: Atrial Fibrillation, Coronary Artery Disease (CAD), Heart Failure, Diabetes Mellitus, GERD/Reflux, Hyperlipidemia, Hypertension, Myocardial Infarction (MD), Osteoarthritis (OA), Renal Disease, Vascular Disorder Additional Past Medical History / Comment(s): Pt recently admitted to [facility] on 01/16/19 with bilateral lower extremity cellulitis with multiple ulcers-positive for klebsiella/pseudomonas, uncontrolled diabetes, pleural effusion with R thoracentesis, exacerbation CHF. Other Hx: Paroxysmal Aflutter, PAD, chronic bilateral venous stasis dermatitis, lower extremety infection/blisters, chronic CHF, IDDM type II, BPH, post CABG urinary retention, CRD stage III, Last Myocardial Infarction Date:: 12/08/18 History of Any Multi-Drug Resistant Organisms: None Reported Past Surgical History: Appendectomy, Coronary Bypass/CABG, Heart Catheterization With Stent Additional Past Surgical History / Comment(s): 12/08/18 CABG 4 vessels, PCI with stents 2004, cardioversion for Aflutter, bilateral cataract removals/lens implants. Past Anesthesia/Blood Transfusion Reactions: No Reported Reaction Additional Past Anesthesia/Blood Transfusion Reaction / Comm: Pt received blood with CABG Date of Last Stent Placement:: 2004 Past Psychological History: No Psychological Hx Reported Additional Psychological History / Comment(s): Single. No children. No pets. Remote tobacco use. No international travel since his experience. 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 He quit drinking 1974 Past Drug Use History: None Reported - Past Family History Mother Family Medical History: Myocardial Infarction (MD) Additional Family Medical History / Comment(s): Mother had a MD at the age of 64 Father Additional Family Medical History / Comment(s): Father had mental health issues after a "bad" truck accident. Medications and Allergies Home Medications Medication Instructions Recorded Confirmed Type Acetaminophen Tab [Tylenol] 500 mg PO Q6HR PRN tab 01/25/19 05/29/20 Rx Metoprolol Tartrate [Lopressor] 25 mg PO BID@0800,1600 02/08/19 05/29/20 History Ferrous Sulfate [Iron (65 MG 325 mg PO DAILY 07/27/19 05/29/20 History Elemental)] Ammonium Lactate Cream [Lac-Hydrin 1 applic TOPICAL BID PRN 10/30/19 05/29/20 History 12% Cream] Bacitracin Zinc Oint 1 applic TOPICAL BID PRN 10/30/19 05/29/20 History Finasteride [Proscar] 5 mg PO DAILY 10/30/19 05/29/20 History Insulin Glargine,Hum.rec.anlog 10 unit SQ DAILY #1 pen 11/05/19 05/29/20 Rx [Lantus Solostar] Albuterol Sulfate [Ventolin HFA] 2 puff INHALATION RT-Q4H PRN 12/26/19 05/29/20 History Docusate [Colace] 100 mg PO DAILY PRN cap 01/12/20 05/29/20 Rx Ergocalciferol [Vitamin D2 50,000 unit PO Q72H cap 01/12/20 05/29/20 Rx (DRISDOL)] Pantoprazole [Protonix] 40 mg PO DAILY tablet. 01/12/20 05/29/20 Rx Apixaban [Eliquis] 2.5 mg PO BID@0800,1600 04/07/20 05/29/20 History Insulin Aspart [NovoLOG Flexpen] See Protocol SQ TID-W/MEALS 04/07/20 05/29/20 History Melatonin 5 mg PO HS 04/07/20 05/29/20 History Ondansetron [Zofran] 4 mg PO TID PRN 04/07/20 05/29/20 History Tamsulosin HCl [Flomax] 0.4 mg PO BID@0800,1600 05/16/20 05/29/20 History Ascorbic Acid [Vitamin C] 500 mg PO DAILY 05/29/20 05/29/20 History Calcium Acetate [PhosLo] 667 mg PO TID@0800,1200,1800 05/29/20 05/29/20 History Calcium Carbonate [Tums] 1,000 mg PO BID@0800,1600 05/29/20 05/29/20 History Furosemide [Lasix] 80 mg PO BID@0800,1600 05/29/20 05/29/20 History Midodrine [ProAmatine] 10 mg PO TID@0800,1200,1800 05/29/20 05/29/20 History Povidone-Iodine [Betadine] 1 applic TOPICAL DAILY 05/29/20 05/29/20 History Rosuvastatin [Crestor] 10 mg PO DAILY 05/29/20 05/29/20 History Triamcinolone 0.1% Cream [Kenalog 1 applic TOPICAL BID 05/29/20 05/29/20 History 0.1% Cream] Triamcinolone 1% Cream Mixture 1 applic TOPICAL DAILY 05/29/20 05/29/20 History traMADol HCL 25 mg PO Q6H PRN 05/29/20 05/29/20 History Allergies Allergy/AdvReac Type Severity Reaction Status Date / Time atorvastatin [From Lipitor] AdvReac MUSCLE/JOINT Verified 05/29/20 13:28 PAIN Physical Exam Vitals: Vital Signs Temp Pulse Resp BP Pulse Ox 05/31/20 12:31 95 05/31/20 08:00 80 20 05/31/20 05:00 97.7 F 80 20 91/54 99 05/31/20 00:00 81 20 93/53 100 05/30/20 20:52 98.1 F 76 18 100/68 98 05/30/20 15:53 74 18 116/68 100 Intake and Output 05/30/20 05/31/20 05/31/20 22:59 06:59 14:59 Intake Total 150 500 Output Total 50 50 Balance 100 450 Intake: Oral 150 500 Output: Urine 50 50 Other: Voiding Method Indwelling Catheter Indwelling Catheter Indwelling Catheter # Voids 0 Weight 80 kg - Constitutional General appearance: cooperative, no acute distress - EENT Eyes: EOMI, PERRLA ENT: hard of hearing, NA/AT, normal oropharynx - Neck Neck: normal ROM - Respiratory Respiratory: bilateral: diminished (BLL) - Cardiovascular Rhythm: regularly irregular leg Peripheral Edema: bilateral: Trace (Petechaie like rash) - Gastrointestinal General gastrointestinal: soft - Integumentary Integumentary: pale - Neurologic non focal - Musculoskeletal Musculoskeletal: generalized weakness - Psychiatric Psychiatric: A&O x's 3 Results CBC & Chem 7: 05/31/20 15:08 05/31/20 15:08 Labs: Abnormal Lab Results - Last 24 Hours (Table) 05/30/20 05/30/20 05/30/20 Range/Units 14:47 14:47 14:47 RBC 3.55 L (4.30-5.90) m/uL Hgb 9.8 L D (13.0-17.5) gm/dL Hct 32.8 L (39.0-53.0) % MCHC 29.9 L (31.0-37.0) g/dL RDW 20.9 H (11.5-15.5) % Lymphocytes # 0.4 L (1.0-4.8) k/uL Sodium 133 L (137-145) mmol/L BUN 30 H (9-20) mg/dL Creatinine 2.57 H (0.66-1.25) mg/dL Glucose 127 H (74-99) mg/dL POC Glucose (mg/dL) (75-99) mg/dL Calcium 7.6 L (8.4-10.2) mg/dL Vitamin B12 955.0 H (200.0-944.0) pg/mL 05/30/20 05/30/20 05/31/20 Range/Units 16:49 20:01 07:24 RBC (4.30-5.90) m/uL Hgb (13.0-17.5) gm/dL Hct (39.0-53.0) % MCHC (31.0-37.0) g/dL RDW (11.5-15.5) % Lymphocytes # (1.0-4.8) k/uL Sodium (137-145) mmol/L BUN (9-20) mg/dL Creatinine (0.66-1.25) mg/dL Glucose (74-99) mg/dL POC Glucose (mg/dL) 132 H 176 H 144 H (75-99) mg/dL Calcium (8.4-10.2) mg/dL Vitamin B12 (200.0-944.0) pg/mL 05/31/20 Range/Units 11:28 RBC (4.30-5.90) m/uL Hgb (13.0-17.5) gm/dL Hct (39.0-53.0) % MCHC (31.0-37.0) g/dL RDW (11.5-15.5) % Lymphocytes # (1.0-4.8) k/uL Sodium (137-145) mmol/L BUN (9-20) mg/dL Creatinine (0.66-1.25) mg/dL Glucose (74-99) mg/dL POC Glucose (mg/dL) 179 H (75-99) mg/dL Calcium (8.4-10.2) mg/dL Vitamin B12 (200.0-944.0) pg/mL Microbiology - Last 24 Hours (Table) 05/29/20 03:49 Urine Culture - Final Urine,Clean Catch Assessment and Plan Plan: Assessment and recommendations: Normocytic Anemia: - Secondary to Chronic End Stage Kidney Disease - Hx: of Iron deficiency Anemia Petechaie Rash: ESRD: On Diaylysis T, , Sat - Nephrology Following Plan: - Check PTT from peripheral source - CHeck IgA - Check abdominal Imaging Physician Attest: I have completed the full history and physical and agree with above dictation by [employer], Dictated as a scribe.
[2020-05-31 15:39] LABS: INR 1.2 (<1.2); Partial Thromboplastin Time 28.6 sec (22.0-30.0); Prothrombin Time 11.9 sec (9.0-12.0)
[2020-05-31 15:45] LABS: ALT 75 U/L (4-49); AST 68 U/L (17-59); African American GFR (CKD) 20 (>60 ml/min/1.73 sqM); Albumin 3.1 g/dL (3.5-5.0); Albumin/Globulin Ratio 1.1; Alkaline Phosphatase 448 U/L (38-126); Anion Gap 7 mmol/L; Anisocytosis Moderate; Blood Urea Nitrogen 38 mg/dL (9-20); Calcium 7.6 mg/dL (8.4-10.2); Carbon Dioxide 28 mmol/L (22-30); Chloride 96 mmol/L (98-107); Globulin 2.7 g/dL; Glucose 205 mg/dL (74-99); HGB 9.7 gm/dL (13.0-17.5); Hypochromasia Marked; MCH 27.9 pg (25.0-35.0); MCHC 30.2 g/dL (31.0-37.0); MCV 92.3 fL (80.0-100.0); Macrocytosis Slight; Mean Platelet Volume 7.4; Non-African American GFR(CKD) 17 (>60 ml/min/1.73 sqM); Platelet Count 157 k/uL (150-450); Potassium 4.9 mmol/L (3.5-5.1); RBC 3.46 m/uL (4.30-5.90); RDW 20.7 % (11.5-15.5); Sodium 131 mmol/L (137-145); Total Bilirubin 0.9 mg/dL (0.2-1.3); Total Protein 5.8 g/dL (6.3-8.2); WBC 6.3 k/uL (3.8-10.6)
[2020-05-31 16:27] LABS: Anisocytosis (M) Present; Eosinophils # (M) 0.19 k/uL (0-0.7); Hypochromasia (M) Present; Lymphocytes # (M) 0.44 k/uL (1.0-4.8); Monocytes # (M) 0.19 k/uL (0-1.0); Neutrophils # (M) 5.48 k/uL (1.3-7.7); Neutrophils % (M) 87 %; Nucleated Red Blood Cells 0 /100 WBC (0-0); Total Cells Counted 100
[2020-05-31 16:28] LABS: Stomatocytes Present
[2020-05-31 17:02] LABS: Glucose,Whole Blood 177 mg/dL (75-99)
[2020-05-31] MEDS: TRIAMCINOLONE 0.1% CREAM 80 GM TUBE TOPICAL SCH ×2 (18:24→21:20)
[2020-05-31 21:12] LABS: Glucose,Whole Blood 157 mg/dL (75-99)
[2020-05-31] MEDS: MELATONIN 5 MG TABLET PO SCH (21:20)
[2020-05-31] MEDS ORDERED: ACETAMINOPHEN TAB 325 MG TAB PO STA (22:15)
--- NOTE | 2020-05-31 23:03 | P.PN ---
Subjective This is a pleasant 80 years old male with multiple medical problems including end-stage renal disease on hemodialysis, chronic atrial fibrillation on Eliquis, coronary artery disease, heart failure, diabetes mellitus, GERD, hyperlipidemia, hypertension, osteoarthritis, bilateral heel pressure ulcers, chronic bilateral venous stasis dermatitis, BPH, patient has indwelling Torres catheter for 4 months as he is telling me. He was recently in this hospital from 05/16-05/22 for rash and fluid overload. He presents because of generalized weakness and worsening take a rash all over his body of one week duration. Rash is itching and its more in the extremities but also on the trunk and more confluent in the feet and in the inguinal areas. He has some few petechia of the month but no mouth ulcer. No genital ulcer. He denies chest pain or dyspnea, he has some occasional cough and phlegm. No abdominal pain, no nausea vomiting. No diarrhea. He had an episode of diarrhea about one week ago. Patient is compliant with his hemodialysis treatment and he did not miss one as he states. No fever. No dizziness Also patient has bilateral heel pressure ulcers with black scab on top, no surrounding cellulitis Vitals are stable and patient is afebrile. He is saturating 95% on room air. Blood pressure on the low normal side at 96/57 Hemoglobin 7.3, which is close to his baseline. No leukocytosis and platelet count is normal at 207K. INR 1.3. Glucose was low last night 59, creatinine 3.2, sodium 134, liver enzymes slightly elevated at 68 AST and 78 ALT, troponin is slightly elevated at 0.058, while troponin is chronically elevated with baseline 0.05-0.1. Urine analysis showing leukocyte esterase large, and WBC more than 182 EKG showing atrial fibrillation at 73 with QTC [address]-T changes. Chest x-ray: Stable x-ray most typical of CHF, underlying infiltrate not excluded. as per Radiologist 05/31/2020 Patient is awake and alert. His petechial rash is fading away today as its less red and more pink. He still feels generally weak. Hematology consult appreciated the recommended to keep monitor the patient for now, continue to check for PTT, IgA and abdominal imaging. Continue with hemodialysis per nephro logy Urine culture: Normal beba and patient is asymptomatic. No fever or white cell count elevation. No need for antibiotics Review of Systems CONSTITUTIONAL: No fever, no malaise, no fatigue. HEENT: No recent visual problems or hearing problems. Denied any sore throat. CARDIOVASCULAR: No orthopnea, PND, no palpitations, no syncope. PULMONARY: No shortness of breath, no cough, no hemoptysis. GASTROINTESTINAL: No diarrhea, no nausea, no vomiting, no abdominal pain. Normoactive bowel sounds. NEUROLOGICAL: No headaches, no weakness, no numbness. Active Medications Generic Name Dose Route Start Last Admin Trade Name Freq PRN Reason Stop Dose Admin Albuterol Sulfate 2 puff 05/29/20 20:38 05/30/20 19:33 Albuterol Hfa Inhaler INHALATION 2 puff RT-Q4H PRN Administration Shortness Of Breath Apixaban 2.5 mg 05/30/20 21:00 05/31/20 08:10 Apixaban 2.5 Mg Tablet PO 2.5 mg BID PEARL Administration Bacitracin 1 applic 05/30/20 07:57 Bacitracin Zinc 500 Unit/Gm Oint 28.4 Gm Tube TOPICAL BID PRN INFECTION Darbepoetin Samson 40 mcg 05/30/20 12:00 05/30/20 18:33 Darbepoetin Samson 40 Mcg/0.4 Ml Syringe SQ 40 mcg Q7D PEARL Administration Docusate Sodium 100 mg 05/30/20 07:57 Docusate 100 Mg Cap PO DAILY PRN Constipation Ferrous Sulfate 325 mg 05/30/20 09:00 05/31/20 08:10 Ferrous Sulfate 325 Mg Tab PO 325 mg DAILY PEARL Administration Finasteride 5 mg 05/30/20 09:00 05/31/20 08:10 Finasteride 5 Mg Tab PO 5 mg DAILY PEARL Administration Furosemide 80 mg 05/29/20 20:55 05/31/20 17:40 Furosemide 80 Mg Tab PO 80 mg BID@0900,1600 PEARL Administration Insulin Aspart 0 unit 05/30/20 17:30 05/31/20 17:40 Insulin Aspart (Novolog) 100 Unit/Ml Vial SQ 2 unit ACHS PEARL Administration Protocol Lactic Acid 1 applic 05/30/20 07:57 05/31/20 11:56 Ammonium Lactate 12% Cream 140 Gm Tube TOPICAL 1 applic BID PRN Administration Dry Skin Melatonin 5 mg 05/29/20 21:00 05/30/20 20:40 Melatonin 5 Mg Tablet PO Not Given HS PEARL Midodrine 10 mg 05/30/20 08:00 05/31/20 17:38 Midodrine 5 Mg Tab PO 10 mg TID@0800,1200,1800 [facility] Administration Ondansetron HCl 4 mg 05/30/20 07:57 Ondansetron 4 Mg Tab PO TID PRN Nausea Pantoprazole Sodium 40 mg 05/30/20 09:00 05/31/20 08:10 Pantoprazole 40 Mg Tablet PO 40 mg [id number] PEARL Administration Tamsulosin HCl 0.4 mg 05/29/20 20:54 05/31/20 17:40 Tamsulosin 0.4 Mg Cap.Er.24h PO 0.4 mg 0800,1600 [facility] Administration Triamcinolone Acetonide 1 applic 05/30/20 09:00 05/31/20 18:24 Triamcinolone 0.1% Cream 80 Gm Tube TOPICAL Not Given BID [facility] Objective - Vital Signs Vital signs: Vital Signs Temp 97.7 F 05/31/20 05:00 Pulse 80 05/31/20 08:00 Resp 20 05/31/20 08:00 BP 91/54 05/31/20 05:00 Pulse Ox 95 05/31/20 12:31 Intake & Output 05/30/20 05/31/20 05/31/20 18:59 06:59 18:59 Intake Total 500 500 Output Total 2050 50 Balance -1550 450 Weight 80 kg 80 kg Intake: Oral 500 500 Output: Urine 50 50 Hemodialysis 2000 Other: Voiding Method Indwelling Catheter Indwelling Catheter Indwelling Catheter # Voids 0 # Bowel Movements 1 - Exam GENERAL: The patient is alert and oriented x3, not in any acute distress. Well developed, well nourished. HEENT: Pupils are round and equally reacting to light. EOMI. No scleral icterus. No conjunctival pallor. Normocephalic, atraumatic. No pharyngeal erythema. No thyromegaly. CARDIOVASCULAR: S1 and S2 present. No murmurs, rubs, or gallops. PULMONARY: Chest is clear to auscultation, no wheezing or crackles. ABDOMEN: Soft, nontender, nondistended, normoactive bowel sounds. No palpable organomegaly. MUSCULOSKELETAL: No joint swelling or deformity. EXTREMITIES: No cyanosis, clubbing, or pedal edema. NEUROLOGICAL: Gross neurological examination did not reveal any focal deficits. -SKIN: No rashes. Has generalized petechial rash, more confluent in the inguinal areas and both feet. With some itching. No mouth ulcers - Labs CBC & Chem 7: 05/31/20 15:08 05/31/20 15:08 Labs: Abnormal Lab Results - Last 24 Hours (Table) 05/30/20 05/30/20 05/30/20 Range/Units 14:47 14:47 14:47 RBC 3.55 L (4.30-5.90) m/uL Hgb 9.8 L D (13.0-17.5) gm/dL Hct 32.8 L (39.0-53.0) % MCHC 29.9 L (31.0-37.0) g/dL RDW 20.9 H (11.5-15.5) % Lymphocytes # 0.4 L (1.0-4.8) k/uL Sodium 133 L (137-145) mmol/L BUN 30 H (9-20) mg/dL Creatinine 2.57 H (0.66-1.25) mg/dL Glucose 127 H (74-99) mg/dL POC Glucose (mg/dL) (75-99) mg/dL Calcium 7.6 L (8.4-10.2) mg/dL Vitamin B12 955.0 H (200.0-944.0) pg/mL 05/30/20 05/30/20 05/31/20 Range/Units 16:49 20:01 07:24 RBC (4.30-5.90) m/uL Hgb (13.0-17.5) gm/dL Hct (39.0-53.0) % MCHC (31.0-37.0) g/dL RDW (11.5-15.5) % Lymphocytes # (1.0-4.8) k/uL Sodium (137-145) mmol/L BUN (9-20) mg/dL Creatinine (0.66-1.25) mg/dL Glucose (74-99) mg/dL POC Glucose (mg/dL) 132 H 176 H 144 H (75-99) mg/dL Calcium (8.4-10.2) mg/dL Vitamin B12 (200.0-944.0) pg/mL 05/31/20 Range/Units 11:28 RBC (4.30-5.90) m/uL Hgb (13.0-17.5) gm/dL Hct (39.0-53.0) % MCHC (31.0-37.0) g/dL RDW (11.5-15.5) % Lymphocytes # (1.0-4.8) k/uL Sodium (137-145) mmol/L BUN (9-20) mg/dL Creatinine (0.66-1.25) mg/dL Glucose (74-99) mg/dL POC Glucose (mg/dL) 179 H (75-99) mg/dL Calcium (8.4-10.2) mg/dL Vitamin B12 (200.0-944.0) pg/mL Microbiology - Last 24 Hours (Table) 05/29/20 03:49 Urine Culture - Preliminary Urine,Clean Catch Assessment and Plan Assessment: Petechal rash, with itching Generalized weakness asymptomatic bacteriuria End stage renal disease on hemodialysis Bilateral heel pressure ulcers Acute on chronic systolic CHF with ejection fraction of 40-45%, with moderate tricuspid regurgitation and severe pulmonary hypertension Diabetes mellitus Hypertension Hyperlipidemia Osteoarthritis GERD Bilateral heel pressure ulcer Chronic bilateral venous stasis dermatitis Benign prostatic hypertrophy Plan: Patient is a 80 E. old male who presents because of rash, on the left overload. Continue with hemodialysis per nephrology consult. we'll try to call dermatology consult if it is available in house. Continue with diuretic. Continue with Eliquis, continue with medodrain and follow-up blood pressure. Patient was on Lantus 10 units daily, we will hold that and continue with insulin sliding scale. Check B12, TSH, folate and physical throughout Labs and medication were reviewed.. Continue same treatment. Continue with symptomatic treatment. Resume home medication. Monitor lytes and vitals. DVT and GI prophylaxis. Further recommendations depends on the clinical course of the patient DVT prophylaxis: Eliquis GI Prophylaxis: Ppi PT/OT: Pending Prognosis is guarded
[2020-06-01] MEDS: AMMONIUM LACTATE 12% CREAM 140 GM TUBE TOPICAL PRN ×2 (02:18→22:17)
[2020-06-01 06:13] LABS: Anisocytosis Moderate; Basophils % (A) 0 %; Eosinophils # (A) 0.2 k/uL (0-0.7); Eosinophils % (A) 3 %; HCT 29.3 % (39.0-53.0); Hypochromasia Marked; Lymphocytes # (A) 0.4 k/uL (1.0-4.8); Lymphocytes % (A) 6 %; MCH 28.1 pg (25.0-35.0); MCHC 30.5 g/dL (31.0-37.0); Macrocytosis Slight; Mean Platelet Volume 7.1; Monocytes # (A) 0.3 k/uL (0-1.0); Monocytes % (A) 5 %; Neutrophils # (A) 5.4 k/uL (1.3-7.7); Neutrophils % (A) 85 %; Platelet Count 137 k/uL (150-450); RBC 3.19 m/uL (4.30-5.90); RDW 20.9 % (11.5-15.5); WBC 6.4 k/uL (3.8-10.6)
[2020-06-01 07:20] LABS: Glucose,Whole Blood 121 mg/dL (75-99)
[2020-06-01] MEDS: INSULIN ASPART (NovoLOG) 100 UNIT/ML VIAL SQ SCH ×4 (07:57→22:15)
[2020-06-01] MEDS: MIDODRINE 5 MG TAB PO SCH ×3 (09:02→18:14)
--- NOTE | 2020-06-01 09:02 | US ---
EXAMINATION TYPE: US abdomen complete DATE OF EXAM: 06/01/2020 COMPARISON: CT 04/11/20 CLINICAL HISTORY: Increased LFT and increased bruising and bleeding. EXAM MEASUREMENTS: Liver Length: 17.1 cm Gallbladder Wall: 0.3 cm CBD: 0.4 cm Spleen: 12.7 Right Kidney: 8.6 x 4.7 x 5.9 cm Left Kidney: 9.5 x 5.5 x 5.6 cm Pancreas: Obscured by bowel gas Liver: Calcified granulomas Gallbladder: Sludge seen within Evidence for sonographic Ag's sign: No CBD: wnl Spleen: Calcified granulomas Right Kidney: No hydronephrosis; 1.6 cm cortical cyst lower pole Left Kidney: No hydronephrosis; 1.2 x 1.0 cm cortical cyst lateral Upper IVC: wnl Abd Aorta: wnl Ascites seen within RUQ and LUQ. B/L pleural effusions noted. The visualized liver is heterogeneous with a hyperechoic without intrahepatic mass or ductal dilatati on seen on images saved. Trace surrounding ascites redemonstrated. The intrahepatic portion of the IV C and visualized abdominal aorta are within normal limits. There is dependent density in gallbladder consistent with small stones and/or gallbladder sludge. No pericholecystic fluid or abnormal gallbla dder wall thickening . Sonographic Ag sign negative. Common bile duct is unremarkable. Suboptimal evaluation of pancreas on images saved secondary to shadowing from overlying bowel gas per technolog ist.. 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 Kidneys are symmetric and free of hydronephrosis. Poor visualization of left kidney not ed on images saved. Small bilateral pleural effusions noted during real-time scanning. IMPRESSION: Heterogeneous hyperechoic appearance of liver consistent with diffuse fatty infiltration and/or underlying hepatocellular disease. Trace perihepatic ascites redemonstrated. No new biliary di latation or focal suspicious intrahepatic masses.
--- NOTE | 2020-06-01 09:04 | P.PN ---
Subjective This is a pleasant 80 years old male with multiple medical problems including end-stage renal disease on hemodialysis, chronic atrial fibrillation on Eliquis, coronary artery disease, heart failure, diabetes mellitus, GERD, hyperlipidemia, hypertension, osteoarthritis, bilateral heel pressure ulcers, chronic bilateral venous stasis dermatitis, BPH, patient has indwelling Torres catheter for 4 months as he is telling me. He was recently in this hospital from 05/16-05/22 for rash and fluid overload. He presents because of generalized weakness and worsening take a rash all over his body of one week duration. Rash is itching and its more in the extremities but also on the trunk and more confluent in the feet and in the inguinal areas. He has some few petechia of the month but no mouth ulcer. No genital ulcer. He denies chest pain or dyspnea, he has some occasional cough and phlegm. No abdominal pain, no nausea vomiting. No diarrhea. He had an episode of diarrhea about one week ago. Patient is compliant with his hemodialysis treatment and he did not miss one as he states. No fever. No dizziness Also patient has bilateral heel pressure ulcers with black scab on top, no surrounding cellulitis Vitals are stable and patient is afebrile. He is saturating 95% on room air. Blood pressure on the low normal side at 96/57 Hemoglobin 7.3, which is close to his baseline. No leukocytosis and platelet count is normal at 207K. INR 1.3. Glucose was low last night 59, creatinine 3.2, sodium 134, liver enzymes slightly elevated at 68 AST and 78 ALT, troponin is slightly elevated at 0.058, while troponin is chronically elevated with baseline 0.05-0.1. Urine analysis showing leukocyte esterase large, and WBC more than 182 EKG showing atrial fibrillation at 73 with QTC [address]-T changes. Chest x-ray: Stable x-ray most typical of CHF, underlying infiltrate not excluded. as per Radiologist 05/31/2020 Patient is awake and alert. His petechial rash is fading away today as its less red and more pink. He still feels generally weak. Hematology consult appreciated the recommended to keep monitor the patient for now, continue to check for PTT, IgA and abdominal imaging. Continue with hemodialysis per nephro logy Urine culture: Normal beba and patient is asymptomatic. No fever or white cell count elevation. No need for antibiotics 06/01/2020 Patient clinically looks the same with generalized weakness and petechial rash. His hemodynamically stable and labs are reviewed. Hematology input is appreciated and recommended some workup B12 is high at 955, TSH is normal at 2.5. Hemoglobin stable at 9.0 Blood pressure still on the low normal this morning it is/56, heart rate 79. Patient is asymptomatic. He is still on medial drain 10 mg 3 times a day. Continue with dialysis per nephrology team Objective - Vital Signs Vital signs: Vital Signs Temp 97.5 F L 06/01/20 04:40 Pulse 79 06/01/20 04:40 Resp 18 06/01/20 04:40 BP 88/56 06/01/20 04:40 Pulse Ox 96 06/01/20 04:40 Intake & Output 05/31/20 06/01/20 06/01/20 18:59 06:59 18:59 Intake Total 1200 60 Output Total 50 50 Balance 1150 10 Intake: Oral 1200 60 Output: Urine 50 50 Other: Voiding Method Indwelling Catheter Indwelling Catheter # Voids 0 0 - Exam GENERAL: The patient is alert and oriented x3, not in any acute distress. Well developed, well nourished. HEENT: Pupils are round and equally reacting to light. EOMI. No scleral icterus. No conjunctival pallor. Normocephalic, atraumatic. No pharyngeal erythema. No thyromegaly. CARDIOVASCULAR: S1 and S2 present. No murmurs, rubs, or gallops. PULMONARY: Chest is clear to auscultation, no wheezing or crackles. ABDOMEN: Soft, nontender, nondistended, normoactive bowel sounds. No palpable organomegaly. MUSCULOSKELETAL: No joint swelling or deformity. EXTREMITIES: No cyanosis, clubbing, or pedal edema. NEUROLOGICAL: Gross neurological examination did not reveal any focal deficits. -SKIN: No rashes. Has generalized petechial rash, more confluent in the inguinal areas and both feet. With some itching. No mouth ulcers - Labs CBC & Chem 7: 06/01/20 05:41 05/31/20 15:08 Labs: Abnormal Lab Results - Last 24 Hours (Table) 05/30/20 05/31/20 05/31/20 Range/Units 14:47 11:28 15:08 RBC 3.46 L (4.30-5.90) m/uL Hgb 9.7 L (13.0-17.5) gm/dL Hct 32.0 L (39.0-53.0) % MCHC 30.2 L (31.0-37.0) g/dL RDW 20.7 H (11.5-15.5) % Plt Count (150-450) k/uL Lymphocytes # (1.0-4.8) k/uL Lymphocytes # (Manual) 0.44 L (1.0-4.8) k/uL INR (<1.2) Sodium (137-145) mmol/L Chloride (98-107) mmol/L BUN (9-20) mg/dL Creatinine (0.66-1.25) mg/dL Glucose (74-99) mg/dL POC Glucose (mg/dL) 179 H (75-99) mg/dL Calcium (8.4-10.2) mg/dL AST (17-59) U/L ALT (4-49) U/L Alkaline Phosphatase (38-126) U/L Total Protein (6.3-8.2) g/dL Albumin (3.5-5.0) g/dL Vitamin B12 955.0 H (200.0-944.0) pg/mL 05/31/20 05/31/20 05/31/20 Range/Units 15:08 15:08 17:00 RBC (4.30-5.90) m/uL Hgb (13.0-17.5) gm/dL Hct (39.0-53.0) % MCHC (31.0-37.0) g/dL RDW (11.5-15.5) % Plt Count (150-450) k/uL Lymphocytes # (1.0-4.8) k/uL Lymphocytes # (Manual) (1.0-4.8) k/uL INR 1.2 H (<1.2) Sodium 131 L (137-145) mmol/L Chloride 96 L (98-107) mmol/L BUN 38 H (9-20) mg/dL Creatinine 3.31 H (0.66-1.25) mg/dL Glucose 205 H (74-99) mg/dL POC Glucose (mg/dL) 177 H (75-99) mg/dL Calcium 7.6 L (8.4-10.2) mg/dL AST 68 H (17-59) U/L ALT 75 H (4-49) U/L Alkaline Phosphatase 448 H (38-126) U/L Total Protein 5.8 L (6.3-8.2) g/dL Albumin 3.1 L (3.5-5.0) g/dL Vitamin B12 (200.0-944.0) pg/mL 05/31/20 06/01/20 06/01/20 Range/Units 21:03 05:41 07:19 RBC 3.19 L (4.30-5.90) m/uL Hgb 9.0 L (13.0-17.5) gm/dL Hct 29.3 L (39.0-53.0) % MCHC 30.5 L (31.0-37.0) g/dL RDW 20.9 H (11.5-15.5) % Plt Count 137 L (150-450) k/uL Lymphocytes # 0.4 L (1.0-4.8) k/uL Lymphocytes # (Manual) (1.0-4.8) k/uL INR (<1.2) Sodium (137-145) mmol/L Chloride (98-107) mmol/L BUN (9-20) mg/dL Creatinine (0.66-1.25) mg/dL Glucose (74-99) mg/dL POC Glucose (mg/dL) 157 H 121 H (75-99) mg/dL Calcium (8.4-10.2) mg/dL AST (17-59) U/L ALT (4-49) U/L Alkaline Phosphatase (38-126) U/L Total Protein (6.3-8.2) g/dL Albumin (3.5-5.0) g/dL Vitamin B12 (200.0-944.0) pg/mL Microbiology - Last 24 Hours (Table) 05/29/20 03:49 Urine Culture - Final Urine,Clean Catch Assessment and Plan Assessment: Petechal rash, with itching Generalized weakness asymptomatic bacteriuria End stage renal disease on hemodialysis Bilateral heel pressure ulcers Acute on chronic systolic CHF with ejection fraction of 40-45%, with moderate tricuspid regurgitation and severe pulmonary hypertension Diabetes mellitus Hypertension Hyperlipidemia Osteoarthritis GERD Bilateral heel pressure ulcer Chronic bilateral venous stasis dermatitis Benign prostatic hypertrophy Plan: Patient is a 80 E. old male who presents because of rash, on the left overload. Continue with hemodialysis per nephrology consult. we'll try to call dermatology consult if it is available in house. Continue with diuretic. Continue with Eliquis, continue with medodrain and follow-up blood pressure. Patient was on Lantus 10 units daily, we will hold that and continue with insulin sliding scale. Check B12, TSH, folate and physical throughout Labs and medication were reviewed.. Continue same treatment. Continue with symptomatic treatment. Resume home medication. Monitor lytes and vitals. DVT and GI prophylaxis. Further recommendations depends on the clinical course of the patient DVT prophylaxis: Eliquis GI Prophylaxis: Ppi PT/OT: Pending Prognosis is guarded
[2020-06-01 09:48] LABS: African American GFR (CKD) 17.7 (60.0-200.0); Albumin 3.1 g/dL (3.80-4.90); Albumin/Globulin Ratio 1.41 (1.60-3.17); Anion Gap 14.1 mmol/L (4.00-12.00); BUN/Creat Ratio 11.67 Ratio (12.00-20.00); Bilirubin, Conjugated 0.2 mg/dL (0.20-0.40); Bilirubin,Unconjugated 0.2 mg/dL; Calcium 7.8 mg/dL (8.7-10.3); Carbon Dioxide 22.9 mmol/L (21.6-31.8); Globulin 2.2 g/dL (1.6-3.3); Non-African American GFR(CKD) 15.3 (60.0-200.0); Potassium 5.2 mmol/L (3.5-5.5); Total Bilirubin 0.4 mg/dL (0.3-1.2); Total Protein 5.3 g/dL (6.2-8.2)
--- NOTE | 2020-06-01 11:07 | P.GSCN ---
History of Present Illness Consult date: 06/01/20 Reason for Consult: "Unable to irrigate Torres" Requesting physician: Kala Laboy History of present illness: The patient is a 80-year-old white male with end-stage renal disease, currently receiving hemodialysis. I was called early this morning regarding Torres catheter related issues. The nurse advised me that he irrigated the catheter, and that he was able to aspirate back as much as he instilled into the bladder. Bladder scan showed 600 mL of urine in the bladder, so the catheter was removed. However, attempts to replace the catheter were unsuccessful. The patient states he is unable to void. However, upon further questioning, he currently has no urge to void. He simply feels like it should be time to void. Review of I's and O's for the past 48 hours suggest that he is only producing approxima tely 100 mL of urine daily. Computed tomography scan performed on 04/11/2020 shows an indwelling Torres catheter with a decompressed bladder. Ascites is noted adjacent to the bladder. Review of Systems - Constitutional Denies chills, Denies fever - Gastrointestinal Denies nausea, Denies vomiting - Genitourinary Denies dysuria Past Medical History Past Medical History: Atrial Fibrillation, Coronary Artery Disease (CAD), Heart Failure, Diabetes Mellitus, GERD/Reflux, Hyperlipidemia, Hypertension, Myocardial Infarction ([place]), Osteoarthritis (OA), Renal Disease, Vascular Disorder Additional Past Medical History / Comment(s): Pt recently admitted to [facility] on 01/16/19 with bilateral lower extremity cellulitis with multiple ulcers-positive for klebsiella/pseudomonas, uncontrolled diabetes, pleural effusion with R thoracentesis, exacerbation CHF. Other Hx: Paroxysmal Aflutter, PAD, chronic bilateral venous stasis dermatitis, lower extremety infection/blisters, chronic CHF, IDDM type II, BPH, post CABG urinary retention, CRD stage III, Last Myocardial Infarction Date:: 12/08/18 History of Any Multi-Drug Resistant Organisms: None Reported Past Surgical History: Appendectomy, Coronary Bypass/CABG, Heart Catheterization With Stent Additional Past Surgical History / Comment(s): 12/08/18 CABG 4 vessels, PCI with stents 2004, cardioversion for Aflutter, bilateral cataract removals/lens implants. Past Anesthesia/Blood Transfusion Reactions: No Reported Reaction Additional Past Anesthesia/Blood Transfusion Reaction / Comm: Pt received blood with CABG Date of Last Stent Placement:: 2004 Past Psychological History: No Psychological Hx Reported Additional Psychological History / Comment(s): Single. No children. No pets. Remote tobacco use. No international travel since his experience. Worked on [employer] Smoking Status: Never smoker Past Alcohol Use History: None Reported Additional Past Alcohol Use History / Comment(s): Pt smoked for one month in 1963. He quit drinking 1974 Past Drug Use History: None Reported - Past Family History Mother Family Medical History: Myocardial Infarction ([place]) Additional Family Medical History / Comment(s): Mother had a [place] at the age of 64 Father Additional Family Medical History / Comment(s): Father had mental health issues after a "bad" truck accident. Medications and Allergies Home Medications Medication Instructions Recorded Confirmed Type Acetaminophen Tab [Tylenol] 500 mg PO Q6HR PRN tab 01/25/19 05/29/20 Rx Metoprolol Tartrate [Lopressor] 25 mg PO BID@0800,1600 02/08/19 05/29/20 History Ferrous Sulfate [Iron (65 MG 325 mg PO DAILY 07/27/19 05/29/20 History Elemental)] Ammonium Lactate Cream [Lac-Hydrin 1 applic TOPICAL BID PRN 10/30/19 05/29/20 History 12% Cream] Bacitracin Zinc Oint 1 applic TOPICAL BID PRN 10/30/19 05/29/20 History Finasteride [Proscar] 5 mg PO DAILY 10/30/19 05/29/20 History Insulin Glargine,Hum.rec.anlog 10 unit SQ DAILY #1 pen 11/05/19 05/29/20 Rx [Lantus Solostar] Albuterol Sulfate [Ventolin HFA] 2 puff INHALATION RT-Q4H PRN 12/26/19 05/29/20 History Docusate [Colace] 100 mg PO DAILY PRN cap 01/12/20 05/29/20 Rx Ergocalciferol [Vitamin D2 50,000 unit PO Q72H cap 01/12/20 05/29/20 Rx (DRISDOL)] Pantoprazole [Protonix] 40 mg PO DAILY tablet. 01/12/20 05/29/20 Rx Apixaban [Eliquis] 2.5 mg PO BID@0800,1600 04/07/20 05/29/20 History Insulin Aspart [NovoLOG Flexpen] See Protocol SQ TID-W/MEALS 04/07/20 05/29/20 History Melatonin 5 mg PO HS 04/07/20 05/29/20 History Ondansetron [Zofran] 4 mg PO TID PRN 04/07/20 05/29/20 History Tamsulosin HCl [Flomax] 0.4 mg PO BID@0800,1600 05/16/20 05/29/20 History Ascorbic Acid [Vitamin C] 500 mg PO DAILY 05/29/20 05/29/20 History Calcium Acetate [PhosLo] 667 mg PO TID@0800,1200,1800 05/29/20 05/29/20 History Calcium Carbonate [Tums] 1,000 mg PO BID@0800,1600 05/29/20 05/29/20 History Furosemide [Lasix] 80 mg PO BID@0800,1600 05/29/20 05/29/20 History Midodrine [ProAmatine] 10 mg PO TID@0800,1200,1800 05/29/20 05/29/20 History Povidone-Iodine [Betadine] 1 applic TOPICAL DAILY 05/29/20 05/29/20 History Rosuvastatin [Crestor] 10 mg PO DAILY 05/29/20 05/29/20 History Triamcinolone 0.1% Cream [Kenalog 1 applic TOPICAL BID 05/29/20 05/29/20 History 0.1% Cream] Triamcinolone 1% Cream Mixture 1 applic TOPICAL DAILY 05/29/20 05/29/20 History traMADol HCL 25 mg PO Q6H PRN 05/29/20 05/29/20 History Allergies Allergy/AdvReac Type Severity Reaction Status Date / Time atorvastatin [From Lipitor] AdvReac MUSCLE/JOINT Verified 05/29/20 13:28 PAIN Surgical - Exam Vital Signs Temp Pulse Resp BP Pulse Ox 97.2 F L 74 20 94/52 100 05/29/20 13:14 05/29/20 13:14 05/29/20 13:14 05/29/20 13:14 05/29/20 13:14 - General well developed, well nourished, no distress - Respiratory normal respiratory effort - Abdomen Abdomen: soft, non tender, no guarding, no rigid, no rebound - Genitourinary normal penis with no external lesions, testicles non-tender - Psychiatric oriented to time, oriented to person, oriented to place, speech is normal, memory intact Results - Labs 06/01/20 05:41 06/01/20 05:41 Abnormal Lab Results - Last 24 Hours (Table) 05/30/20 05/31/20 05/31/20 Range/Units 14:47 11:28 15:08 RBC 3.46 L (4.30-5.90) m/uL Hgb 9.7 L (13.0-17.5) gm/dL Hct 32.0 L (39.0-53.0) % MCHC 30.2 L (31.0-37.0) g/dL RDW 20.7 H (11.5-15.5) % Plt Count (150-450) k/uL Lymphocytes # (1.0-4.8) k/uL Lymphocytes # (Manual) 0.44 L (1.0-4.8) k/uL INR (<1.2) Sodium (137-145) mmol/L Chloride (98-107) mmol/L BUN (9-20) mg/dL Creatinine (0.66-1.25) mg/dL Glucose (74-99) mg/dL POC Glucose (mg/dL) 179 H (75-99) mg/dL Calcium (8.4-10.2) mg/dL AST (17-59) U/L ALT (4-49) U/L Alkaline Phosphatase (38-126) U/L Total Protein (6.3-8.2) g/dL Albumin (3.5-5.0) g/dL Vitamin B12 955.0 H (200.0-944.0) pg/mL 05/31/20 05/31/20 05/31/20 Range/Units 15:08 15:08 17:00 RBC (4.30-5.90) m/uL Hgb (13.0-17.5) gm/dL Hct (39.0-53.0) % MCHC (31.0-37.0) g/dL RDW (11.5-15.5) % Plt Count (150-450) k/uL Lymphocytes # (1.0-4.8) k/uL Lymphocytes # (Manual) (1.0-4.8) k/uL INR 1.2 H (<1.2) Sodium 131 L (137-145) mmol/L Chloride 96 L (98-107) mmol/L BUN 38 H (9-20) mg/dL Creatinine 3.31 H (0.66-1.25) mg/dL Glucose 205 H (74-99) mg/dL POC Glucose (mg/dL) 177 H (75-99) mg/dL Calcium 7.6 L (8.4-10.2) mg/dL AST 68 H (17-59) U/L ALT 75 H (4-49) U/L Alkaline Phosphatase 448 H (38-126) U/L Total Protein 5.8 L (6.3-8.2) g/dL Albumin 3.1 L (3.5-5.0) g/dL Vitamin B12 (200.0-944.0) pg/mL 05/31/20 06/01/20 06/01/20 Range/Units 21:03 05:41 07:19 RBC 3.19 L (4.30-5.90) m/uL Hgb 9.0 L (13.0-17.5) gm/dL Hct 29.3 L (39.0-53.0) % MCHC 30.5 L (31.0-37.0) g/dL RDW 20.9 H (11.5-15.5) % Plt Count 137 L (150-450) k/uL Lymphocytes # 0.4 L (1.0-4.8) k/uL Lymphocytes # (Manual) (1.0-4.8) k/uL INR (<1.2) Sodium (137-145) mmol/L Chloride (98-107) mmol/L BUN (9-20) mg/dL Creatinine (0.66-1.25) mg/dL Glucose (74-99) mg/dL POC Glucose (mg/dL) 157 H 121 H (75-99) mg/dL Calcium (8.4-10.2) mg/dL AST (17-59) U/L ALT (4-49) U/L Alkaline Phosphatase (38-126) U/L Total Protein (6.3-8.2) g/dL Albumin (3.5-5.0) g/dL Vitamin B12 (200.0-944.0) pg/mL Microbiology - Last 24 Hours (Table) 05/29/20 03:49 Urine Culture - Final Urine,Clean Catch Diabetes panel 05/31/20 Range/Units 15:08 Sodium 131 L (137-145) mmol/L Potassium 4.9 (3.5-5.1) mmol/L Chloride 96 L (98-107) mmol/L Carbon Dioxide 28 (22-30) mmol/L BUN 38 H (9-20) mg/dL Creatinine 3.31 H (0.66-1.25) mg/dL Glucose 205 H (74-99) mg/dL Calcium 7.6 L (8.4-10.2) mg/dL AST 68 H (17-59) U/L ALT 75 H (4-49) U/L Alkaline Phosphatase 448 H (38-126) U/L Total Protein 5.8 L (6.3-8.2) g/dL Albumin 3.1 L (3.5-5.0) g/dL Calcium panel 05/31/20 Range/Units 15:08 Calcium 7.6 L (8.4-10.2) mg/dL Albumin 3.1 L (3.5-5.0) g/dL Pituitary panel 05/31/20 Range/Units 15:08 Sodium 131 L (137-145) mmol/L Potassium 4.9 (3.5-5.1) mmol/L Chloride 96 L (98-107) mmol/L Carbon Dioxide 28 (22-30) mmol/L BUN 38 H (9-20) mg/dL Creatinine 3.31 H (0.66-1.25) mg/dL Glucose 205 H (74-99) mg/dL Calcium 7.6 L (8.4-10.2) mg/dL Adrenal panel 05/31/20 Range/Units 15:08 Sodium 131 L (137-145) mmol/L Potassium 4.9 (3.5-5.1) mmol/L Chloride 96 L (98-107) mmol/L Carbon Dioxide 28 (22-30) mmol/L BUN 38 H (9-20) mg/dL Creatinine 3.31 H (0.66-1.25) mg/dL Glucose 205 H (74-99) mg/dL Calcium 7.6 L (8.4-10.2) mg/dL Total Bilirubin 0.9 (0.2-1.3) mg/dL AST 68 H (17-59) U/L ALT 75 H (4-49) U/L Alkaline Phosphatase 448 H (38-126) U/L Total Protein 5.8 L (6.3-8.2) g/dL Albumin 3.1 L (3.5-5.0) g/dL Assessment and Plan (1) Oliguria Current Visit: Yes Status: Acute Code(s): R34 - ANURIA AND OLIGURIA SNOMED Code(s): 29703953 (2) Ascites Current Visit: Yes Status: Acute Code(s): R18.8 - OTHER ASCITES SNOMED Code(s): 963237891 Plan: The patient has oliguria due to his end-stage renal disease, but I do not believe he is in urinary retention. Urine output the past 48 hours has average 100 mL per day. His Torres catheter was successfully irrigated, indicating that it was properly positioned and patent. The bladder scan result of 600 mL almost certainly represents ascites adjacent to the bladder. I would suggest that the Torres catheter remain out unless the patient experiences pressure to void and is unable to do so. Time with Patient: Greater than 30
[2020-06-01 11:25] LABS: Glucose,Whole Blood 129 mg/dL (75-99)
--- NOTE | 2020-06-01 11:48 | P.PN ---
Subjective Progress Note Date: 06/01/20 Principal diagnosis: This is a 80-year-old patient with ESRD on dialysis Wednesday. He was transferred from [facility] due to generalized weakness and has severe maculopa pular petechial rash for about 2 or 3 weeks prior to admission. Workup has included negative ANCA and ZOFIA, normal platelet count. He is also known with moderate aortic stenosis ejection fraction of 40-45% and severe pulmonary hypertension Currently he is on dialysis with pressures in the 90s, atrial fibrillation coronary artery disease diabetes, history of coronary artery bypass graft in the past, multiple stents in the past cardioversion He is sleepy and difficult to arouse. Objective - Vital Signs Vital signs: Vital Signs Temp 97.9 F 06/01/20 11:42 Pulse 78 06/01/20 11:42 Resp 17 06/01/20 11:42 BP 97/52 06/01/20 11:42 Pulse Ox 96 06/01/20 11:42 Intake & Output 05/31/20 06/01/20 06/01/20 18:59 06:59 18:59 Intake Total 1200 60 Output Total 50 50 Balance 1150 10 Intake: Oral 1200 60 Output: Urine 50 50 Other: Voiding Method Indwelling Catheter Indwelling Catheter # Voids 0 0 On examination her sleepy and difficult to arouse but according to the dialysis nurse he doesn't wake up and is oriented HEENT exam no JVP neck is supple no facial asymmetry Lungs are clear to auscultation fair air entry bilaterally Heart sounds are unremarkable for any murmur rub gallop, atrial fibrillation Abdomen soft nontender. Extremity exam reveals a fairly severe maculopapular petechial rash all over. Neurologically very sleepy difficult to arouse - Labs CBC & Chem 7: 06/01/20 05:41 06/01/20 05:41 Labs: Abnormal Lab Results - Last 24 Hours (Table) 05/31/20 05/31/20 05/31/20 Range/Units 15:08 15:08 15:08 RBC 3.46 L (4.30-5.90) m/uL Hgb 9.7 L (13.0-17.5) gm/dL Hct 32.0 L (39.0-53.0) % MCHC 30.2 L (31.0-37.0) g/dL RDW 20.7 H (11.5-15.5) % Plt Count (150-450) k/uL Lymphocytes # (1.0-4.8) k/uL Lymphocytes # (Manual) 0.44 L (1.0-4.8) k/uL INR 1.2 H (<1.2) Sodium 131 L (137-145) mmol/L Chloride 96 L (98-107) mmol/L Anion Gap (4.00-12.00) mmol/L BUN 38 H (9-20) mg/dL Creatinine 3.31 H (0.66-1.25) mg/dL Est GFR (CKD-EPI)AfAm (60.0-200.0) Est GFR (CKD-EPI)NonAf (60.0-200.0) BUN/Creatinine Ratio (12.00-20.00) Ratio Glucose 205 H (74-99) mg/dL POC Glucose (mg/dL) (75-99) mg/dL Calcium 7.6 L (8.4-10.2) mg/dL AST 68 H (17-59) U/L ALT 75 H (4-49) U/L Alkaline Phosphatase 448 H (38-126) U/L Total Protein 5.8 L (6.3-8.2) g/dL Albumin 3.1 L (3.5-5.0) g/dL Albumin/Globulin Ratio (1.60-3.17) g/dL IgA (60.0-350.0) mg/dL 05/31/20 05/31/20 06/01/20 Range/Units 17:00 21:03 05:41 RBC (4.30-5.90) m/uL Hgb (13.0-17.5) gm/dL Hct (39.0-53.0) % MCHC (31.0-37.0) g/dL RDW (11.5-15.5) % Plt Count (150-450) k/uL Lymphocytes # (1.0-4.8) k/uL Lymphocytes # (Manual) (1.0-4.8) k/uL INR (<1.2) Sodium (137-145) mmol/L Chloride (98-107) mmol/L Anion Gap (4.00-12.00) mmol/L BUN (9-20) mg/dL Creatinine (0.66-1.25) mg/dL Est GFR (CKD-EPI)AfAm (60.0-200.0) Est GFR (CKD-EPI)NonAf (60.0-200.0) BUN/Creatinine Ratio (12.00-20.00) Ratio Glucose (74-99) mg/dL POC Glucose (mg/dL) 177 H 157 H (75-99) mg/dL Calcium (8.4-10.2) mg/dL AST (17-59) U/L ALT (4-49) U/L Alkaline Phosphatase (38-126) U/L Total Protein (6.3-8.2) g/dL Albumin (3.5-5.0) g/dL Albumin/Globulin Ratio (1.60-3.17) g/dL IgA 495.0 H (60.0-350.0) mg/dL 06/01/20 06/01/20 06/01/20 Range/Units 05:41 05:41 07:19 RBC 3.19 L (4.30-5.90) m/uL Hgb 9.0 L (13.0-17.5) gm/dL Hct 29.3 L (39.0-53.0) % MCHC 30.5 L (31.0-37.0) g/dL RDW 20.9 H (11.5-15.5) % Plt Count 137 L (150-450) k/uL Lymphocytes # 0.4 L (1.0-4.8) k/uL Lymphocytes # (Manual) (1.0-4.8) k/uL INR (<1.2) Sodium 133 L (137-145) mmol/L Chloride (98-107) mmol/L Anion Gap 14.10 H (4.00-12.00) mmol/L BUN 42.0 H (9-20) mg/dL Creatinine 3.6 H (0.66-1.25) mg/dL Est GFR (CKD-EPI)AfAm 17.7 L (60.0-200.0) Est GFR (CKD-EPI)NonAf 15.3 L (60.0-200.0) BUN/Creatinine Ratio 11.67 L (12.00-20.00) Ratio Glucose 125 H (74-99) mg/dL POC Glucose (mg/dL) 121 H (75-99) mg/dL Calcium 7.8 L (8.4-10.2) mg/dL AST 54 H (17-59) U/L ALT 67 H (4-49) U/L Alkaline Phosphatase 537 H (38-126) U/L Total Protein 5.3 L (6.3-8.2) g/dL Albumin 3.10 L (3.5-5.0) g/dL Albumin/Globulin Ratio 1.41 L (1.60-3.17) g/dL IgA (60.0-350.0) mg/dL 06/01/20 Range/Units 11:23 RBC (4.30-5.90) m/uL Hgb (13.0-17.5) gm/dL Hct (39.0-53.0) % MCHC (31.0-37.0) g/dL RDW (11.5-15.5) % Plt Count (150-450) k/uL Lymphocytes # (1.0-4.8) k/uL Lymphocytes # (Manual) (1.0-4.8) k/uL INR (<1.2) Sodium (137-145) mmol/L Chloride (98-107) mmol/L Anion Gap (4.00-12.00) mmol/L BUN (9-20) mg/dL Creatinine (0.66-1.25) mg/dL Est GFR (CKD-EPI)AfAm (60.0-200.0) Est GFR (CKD-EPI)NonAf (60.0-200.0) BUN/Creatinine Ratio (12.00-20.00) Ratio Glucose (74-99) mg/dL POC Glucose (mg/dL) 129 H (75-99) mg/dL Calcium (8.4-10.2) mg/dL AST (17-59) U/L ALT (4-49) U/L Alkaline Phosphatase (38-126) U/L Total Protein (6.3-8.2) g/dL Albumin (3.5-5.0) g/dL Albumin/Globulin Ratio (1.60-3.17) g/dL IgA (60.0-350.0) mg/dL Microbiology - Last 24 Hours (Table) 05/29/20 03:49 Urine Culture - Final Urine,Clean Catch Assessment and Plan Assessment: Impression 1. ESRD on dialysis Wednesday 2. Permacath right chest 3. Generalized weakness severe rash cause not very clear 4. Atrial fibrillation, coronary artery bypass graft in the past, stents in the past, 5. Severe pulmonary hypertension Recommendation 1. Maintain current dialysis schedule and medications. 2. According to the dialysis done this some discussion about hospice care
--- NOTE | 2020-06-01 12:19 | P.PN ---
Subjective Progress Note Date: 06/01/20 Principal diagnosis: Petechial rash Continues to have petechial rash. Objective - Vital Signs Vital signs: Vital Signs Temp 97.9 F 06/01/20 11:42 Pulse 78 06/01/20 11:42 Resp 17 06/01/20 11:42 BP 97/52 06/01/20 11:42 Pulse Ox 96 06/01/20 11:42 Intake & Output 05/31/20 06/01/20 06/01/20 18:59 06:59 18:59 Intake Total 1200 60 Output Total 50 50 Balance 1150 10 Intake: Oral 1200 60 Output: Urine 50 50 Other: Voiding Method Indwelling Catheter Indwelling Catheter # Voids 0 0 - Exam Gen.: No acute distress HEENT: No conjunctival pallor or scleral icterus. Mucosa moist. Neck: Supple. Lungs: No respiratory distress. Heart: Regular rate. No lower extremity edema. Abdomen: Soft. MSK: 4/4 strength in all 4 extremities. Neuro: Alert and oriented. Skin: No jaundice. Petechial rash Psych: Appropriate affect. - Labs CBC & Chem 7: 06/01/20 05:41 06/01/20 05:41 Labs: Abnormal Lab Results - Last 24 Hours (Table) 05/31/20 05/31/20 05/31/20 Range/Units 15:08 15:08 15:08 RBC 3.46 L (4.30-5.90) m/uL Hgb 9.7 L (13.0-17.5) gm/dL Hct 32.0 L (39.0-53.0) % MCHC 30.2 L (31.0-37.0) g/dL RDW 20.7 H (11.5-15.5) % Plt Count (150-450) k/uL Lymphocytes # (1.0-4.8) k/uL Lymphocytes # (Manual) 0.44 L (1.0-4.8) k/uL INR 1.2 H (<1.2) Sodium 131 L (137-145) mmol/L Chloride 96 L (98-107) mmol/L Anion Gap (4.00-12.00) mmol/L BUN 38 H (9-20) mg/dL Creatinine 3.31 H (0.66-1.25) mg/dL Est GFR (CKD-EPI)AfAm (60.0-200.0) Est GFR (CKD-EPI)NonAf (60.0-200.0) BUN/Creatinine Ratio (12.00-20.00) Ratio Glucose 205 H (74-99) mg/dL POC Glucose (mg/dL) (75-99) mg/dL Calcium 7.6 L (8.4-10.2) mg/dL AST 68 H (17-59) U/L ALT 75 H (4-49) U/L Alkaline Phosphatase 448 H (38-126) U/L Total Protein 5.8 L (6.3-8.2) g/dL Albumin 3.1 L (3.5-5.0) g/dL Albumin/Globulin Ratio (1.60-3.17) g/dL IgA (60.0-350.0) mg/dL 05/31/20 05/31/20 06/01/20 Range/Units 17:00 21:03 05:41 RBC (4.30-5.90) m/uL Hgb (13.0-17.5) gm/dL Hct (39.0-53.0) % MCHC (31.0-37.0) g/dL RDW (11.5-15.5) % Plt Count (150-450) k/uL Lymphocytes # (1.0-4.8) k/uL Lymphocytes # (Manual) (1.0-4.8) k/uL INR (<1.2) Sodium (137-145) mmol/L Chloride (98-107) mmol/L Anion Gap (4.00-12.00) mmol/L BUN (9-20) mg/dL Creatinine (0.66-1.25) mg/dL Est GFR (CKD-EPI)AfAm (60.0-200.0) Est GFR (CKD-EPI)NonAf (60.0-200.0) BUN/Creatinine Ratio (12.00-20.00) Ratio Glucose (74-99) mg/dL POC Glucose (mg/dL) 177 H 157 H (75-99) mg/dL Calcium (8.4-10.2) mg/dL AST (17-59) U/L ALT (4-49) U/L Alkaline Phosphatase (38-126) U/L Total Protein (6.3-8.2) g/dL Albumin (3.5-5.0) g/dL Albumin/Globulin Ratio (1.60-3.17) g/dL IgA 495.0 H (60.0-350.0) mg/dL 06/01/20 06/01/20 06/01/20 Range/Units 05:41 05:41 07:19 RBC 3.19 L (4.30-5.90) m/uL Hgb 9.0 L (13.0-17.5) gm/dL Hct 29.3 L (39.0-53.0) % MCHC 30.5 L (31.0-37.0) g/dL RDW 20.9 H (11.5-15.5) % Plt Count 137 L (150-450) k/uL Lymphocytes # 0.4 L (1.0-4.8) k/uL Lymphocytes # (Manual) (1.0-4.8) k/uL INR (<1.2) Sodium 133 L (137-145) mmol/L Chloride (98-107) mmol/L Anion Gap 14.10 H (4.00-12.00) mmol/L BUN 42.0 H (9-20) mg/dL Creatinine 3.6 H (0.66-1.25) mg/dL Est GFR (CKD-EPI)AfAm 17.7 L (60.0-200.0) Est GFR (CKD-EPI)NonAf 15.3 L (60.0-200.0) BUN/Creatinine Ratio 11.67 L (12.00-20.00) Ratio Glucose 125 H (74-99) mg/dL POC Glucose (mg/dL) 121 H (75-99) mg/dL Calcium 7.8 L (8.4-10.2) mg/dL AST 54 H (17-59) U/L ALT 67 H (4-49) U/L Alkaline Phosphatase 537 H (38-126) U/L Total Protein 5.3 L (6.3-8.2) g/dL Albumin 3.10 L (3.5-5.0) g/dL Albumin/Globulin Ratio 1.41 L (1.60-3.17) g/dL IgA (60.0-350.0) mg/dL 06/01/20 Range/Units 11:23 RBC (4.30-5.90) m/uL Hgb (13.0-17.5) gm/dL Hct (39.0-53.0) % MCHC (31.0-37.0) g/dL RDW (11.5-15.5) % Plt Count (150-450) k/uL Lymphocytes # (1.0-4.8) k/uL Lymphocytes # (Manual) (1.0-4.8) k/uL INR (<1.2) Sodium (137-145) mmol/L Chloride (98-107) mmol/L Anion Gap (4.00-12.00) mmol/L BUN (9-20) mg/dL Creatinine (0.66-1.25) mg/dL Est GFR (CKD-EPI)AfAm (60.0-200.0) Est GFR (CKD-EPI)NonAf (60.0-200.0) BUN/Creatinine Ratio (12.00-20.00) Ratio Glucose (74-99) mg/dL POC Glucose (mg/dL) 129 H (75-99) mg/dL Calcium (8.4-10.2) mg/dL AST (17-59) U/L ALT (4-49) U/L Alkaline Phosphatase (38-126) U/L Total Protein (6.3-8.2) g/dL Albumin (3.5-5.0) g/dL Albumin/Globulin Ratio (1.60-3.17) g/dL IgA (60.0-350.0) mg/dL Microbiology - Last 24 Hours (Table) 05/29/20 03:49 Urine Culture - Final Urine,Clean Catch Assessment and Plan Assessment: Petechial rash Anemia of CKD ESRD Hepatocellular disease Thrombocytopenia, consumptive due to liver disease and petechia/bruising Plan: Mr. Brice is a very pleasant 80-year-old gentleman with multiple comorbidities including end-stage renal disease on dialysis as well as anemia of chronic kidney disease. Here for petechial rash. PT/PTT normal. Platelets were normal upon presentation at 157 however upon repeat this morning they dropped to 137. He is on dialysis as well as end-stage renal disease. Abdominal ultrasound with hepatocellular disease. Likely has petechiae are related to platelet dysfunction. Coags are normal. Drop in platelets possibly due to consumption. We'll monitor his CBC.
[2020-06-01] MEDS: FUROSEMIDE 80 MG TAB PO SCH ×2 (12:52→18:14)
[2020-06-01] MEDS: FINASTERIDE 5 MG TAB PO SCH (12:52)
[2020-06-01] MEDS: PANTOPRAZOLE 40 MG TABLET PO SCH (12:52)
[2020-06-01] MEDS: FERROUS SULFATE 325 MG TAB PO SCH (12:52)
[2020-06-01] MEDS: APIXABAN 2.5 MG TABLET PO SCH ×2 (12:52→21:40)
[2020-06-01] MEDS: TAMSULOSIN 0.4 MG CAP.ER.24H PO SCH ×2 (12:52→18:13)
[2020-06-01] MEDS: TRIAMCINOLONE 0.1% CREAM 80 GM TUBE TOPICAL SCH ×2 (12:53→21:41)
[2020-06-01 17:10] LABS: Glucose,Whole Blood 169 mg/dL (75-99)
[2020-06-01] MEDS: MELATONIN 5 MG TABLET PO SCH (21:40)
[2020-06-01 22:10] LABS: Glucose,Whole Blood 203 mg/dL (75-99)
[2020-06-02] MEDS: ALBUTEROL HFA INHALER INHALATION PRN ×3 (02:40→11:35)
[2020-06-02 07:11] LABS: Glucose,Whole Blood 110 mg/dL (75-99)
[2020-06-02] MEDS: INSULIN ASPART (NovoLOG) 100 UNIT/ML VIAL SQ SCH ×4 (07:38→20:36)
[2020-06-02 09:47] LABS: % Iron Saturation 11.06 (15.00-50.00)
[2020-06-02 11:41] LABS: Glucose,Whole Blood 186 mg/dL (75-99)
[2020-06-02] MEDS: PANTOPRAZOLE 40 MG TABLET PO SCH (11:50)
[2020-06-02] MEDS: TAMSULOSIN 0.4 MG CAP.ER.24H PO SCH ×2 (11:51→17:59)
[2020-06-02] MEDS: FERROUS SULFATE 325 MG TAB PO SCH (11:51)
[2020-06-02] MEDS: FINASTERIDE 5 MG TAB PO SCH (11:51)
[2020-06-02] MEDS: MIDODRINE 5 MG TAB PO SCH ×3 (11:51→17:59)
[2020-06-02] MEDS: APIXABAN 2.5 MG TABLET PO SCH ×2 (11:51→20:36)
[2020-06-02] MEDS: FUROSEMIDE 80 MG TAB PO SCH ×2 (11:51→17:59)
[2020-06-02] MEDS: TRIAMCINOLONE 0.1% CREAM 80 GM TUBE TOPICAL SCH ×2 (11:52→20:36)
[2020-06-02] MEDS: AMMONIUM LACTATE 12% CREAM 140 GM TUBE TOPICAL PRN (11:55)
--- NOTE | 2020-06-02 12:17 | P.PN ---
Subjective Progress Note Date: 06/02/20 Principal diagnosis: This is a 80-year-old patient with ESRD on dialysis Wednesday. He was transferred from [facility] due to generalized weakness and has severe maculopa pular petechial rash for about 2 or 3 weeks prior to admission. Workup has included negative ANCA and ZOFIA, normal platelet count. He is also known with moderate aortic stenosis ejection fraction of 40-45% and severe pulmonary hypertension He is also known with atrial fibrillation coronary artery disease diabetes, history of coronary artery bypass graft in the past, multiple stents in the past cardioversion As of this morning he has had some itching with the rash which is better after skin lotion. No nausea vomiting no chest pain occasional cough. Good appetite. This morning is awake and alert and oriented Objective - Vital Signs Vital signs: Vital Signs Temp 97.9 F 06/02/20 11:57 Pulse 75 06/02/20 11:57 Resp 17 06/02/20 11:57 BP 100/61 06/02/20 11:57 Pulse Ox 100 06/02/20 11:57 Intake & Output 06/01/20 06/02/20 06/02/20 18:59 06:59 18:59 Intake Total 400 Output Total 3300 0 Balance -2900 0 Weight 78.9 kg Intake: Oral 400 Output: Urine 0 Hemodialysis 3300 Other: Voiding Method Urinal Urinal Urinal # Voids 0 On examination he has diffuse maculopapular rash with petechia A chin exam no JVP neck is supple no facial asymmetry Lungs are significant for an occasional coarse crackle at bases much improved after coughing but not completely resolved good air entry bilaterally Heart sounds were unremarkable seen to be normal sinus rhythm no murmur rub gallop Abdomen soft nontender Extremity examination reveals mild edema and rash as noted above Neurologically awake alert oriented this morning - Labs CBC & Chem 7: 06/01/20 05:41 06/01/20 05:41 Labs: Abnormal Lab Results - Last 24 Hours (Table) 06/01/20 06/01/20 06/02/20 Range/Units 17:08 22:03 06:21 POC Glucose (mg/dL) 169 H 203 H (75-99) mg/dL Iron 24 L (65-175) ug/dL TIBC 217 L (228-460) ug/dL % Saturation 11.06 L (15.00-50.00) 06/02/20 06/02/20 Range/Units 07:10 11:40 POC Glucose (mg/dL) 110 H 186 H (75-99) mg/dL Iron (65-175) ug/dL TIBC (228-460) ug/dL % Saturation (15.00-50.00) Assessment and Plan Assessment: Impression 1. ESRD on dialysis Wednesday. 2. Permacath right chest 3. Generalized weakness severe rash cause not very clear 4. Atrial fibrillation, coronary artery bypass graft in the past, stents in the past, 5. Severe pulmonary hypertension. 6. Low blood pressure, on Mid. 7. Anemia hemoglobin is 9, iron saturation 11% on 06/02/2020 this morning Recommendation 1. IV Ferrlecit 125 mg daily for 3 days 2. Symptomatic treatment of rash and itching 3.
[2020-06-02 16:56] LABS: Glucose,Whole Blood 248 mg/dL (75-99)
--- NOTE | 2020-06-02 19:11 | XR ---
EXAMINATION TYPE: XR chest 1V portable DATE OF EXAM: 06/02/2020 COMPARISON: 05/29/2020 HISTORY: Short of breath TECHNIQUE: FINDINGS: Heart is enlarged. There are sternal wires. There is right central venous catheter with the tip in the superior vena cava. There is blunting of the costophrenic angles. There is no definite he art failure. IMPRESSION: Moderately enlarged bilateral pleural effusions. More pleural fluid on the right side. Ba silar pulmonary infiltrates. No obvious heart failure. Moderate cardiomegaly.
[2020-06-02 19:42] LABS: Glucose,Whole Blood 216 mg/dL (75-99)
[2020-06-02] MEDS: MELATONIN 5 MG TABLET PO SCH (20:36)
--- NOTE | 2020-06-02 20:50 | P.PN ---
Subjective This is a pleasant 80 years old male with multiple medical problems including end-stage renal disease on hemodialysis, chronic atrial fibrillation on Eliquis, coronary artery disease, heart failure, diabetes mellitus, GERD, hyperlipidemia, hypertension, osteoarthritis, bilateral heel pressure ulcers, chronic bilateral venous stasis dermatitis, BPH, patient has indwelling Torres catheter for 4 months as he is telling me. He was recently in this hospital from 05/16-05/22 for rash and fluid overload. He presents because of generalized weakness and worsening take a rash all over his body of one week duration. Rash is itching and its more in the extremities but also on the trunk and more confluent in the feet and in the inguinal areas. He has some few petechia of the month but no mouth ulcer. No genital ulcer. He denies chest pain or dyspnea, he has some occasional cough and phlegm. No abdominal pain, no nausea vomiting. No diarrhea. He had an episode of diarrhea about one week ago. Patient is compliant with his hemodialysis treatment and he did not miss one as he states. No fever. No dizziness Also patient has bilateral heel pressure ulcers with black scab on top, no surrounding cellulitis Vitals are stable and patient is afebrile. He is saturating 95% on room air. Blood pressure on the low normal side at 96/57 Hemoglobin 7.3, which is close to his baseline. No leukocytosis and platelet count is normal at 207K. INR 1.3. Glucose was low last night 59, creatinine 3.2, sodium 134, liver enzymes slightly elevated at 68 AST and 78 ALT, troponin is slightly elevated at 0.058, while troponin is chronically elevated with baseline 0.05-0.1. Urine analysis showing leukocyte esterase large, and WBC more than 182 EKG showing atrial fibrillation at 73 with QTC [address]-T changes. Chest x-ray: Stable x-ray most typical of CHF, underlying infiltrate not excluded. as per Radiologist 05/31/2020 Patient is awake and alert. His petechial rash is fading away today as its less red and more pink. He still feels generally weak. Hematology consult appreciated the recommended to keep monitor the patient for now, continue to check for PTT, IgA and abdominal imaging. Continue with hemodialysis per nephro logy Urine culture: Normal beba and patient is asymptomatic. No fever or white cell count elevation. No need for antibiotics 06/01/2020 Patient clinically looks the same with generalized weakness and petechial rash. His hemodynamically stable and labs are reviewed. Hematology input is appreciated and recommended some workup B12 is high at 955, TSH is normal at 2.5. Hemoglobin stable at 9.0 Blood pressure still on the low normal this morning it is/56, heart rate 79. Patient is asymptomatic. He is still on medial drain 10 mg 3 times a day. Continue with dialysis per nephrology team 06/02/2020 Patient is awake and alert, is still have petechial rash although it looks to be somewhat improving and fading away but not everywhere. This afternoon he was complaining of from breathing difficulty, repeat troponin looks slightly elevated at baseline area with no chest pain however repeat chest x-ray showing bilateral pleural effusion. We will hold her liquids tonight and tomorrow, we'll check ultrasound of the chest for possible need for thoracocentesis, we will assess in the morning the need for thoracocentesis or not. Patient petechial rash most likely related to his platelet dysfunction from his renal disease, treat symptomatically, otherwise if patient deteriorates clinically then he might be eligible for hospice for comfort care. Long-term prognosis is definitely guarded Objective - Vital Signs Vital signs: Vital Signs Temp 97.9 F 06/02/20 11:57 Pulse 75 06/02/20 11:57 Resp 17 06/02/20 11:57 BP 100/61 06/02/20 11:57 Pulse Ox 100 06/02/20 11:57 Intake & Output 06/02/20 06/02/20 06/03/20 06:59 18:59 06:59 Intake Total 600 Output Total 0 Balance 0 600 Weight 78.9 kg Intake: Oral 600 Output: Urine 0 Other: Voiding Method Urinal Urinal # Voids 0 # Bowel Movements 1 - Exam GENERAL: The patient is alert and oriented x3, not in any acute distress. Well developed, well nourished. HEENT: Pupils are round and equally reacting to light. EOMI. No scleral icterus. No conjunctival pallor. Normocephalic, atraumatic. No pharyngeal erythema. No thyromegaly. CARDIOVASCULAR: S1 and S2 present. No murmurs, rubs, or gallops. -PULMONARY: Chest is clear to auscultation, no wheezing or crackles. Decreased breath sounds on both sides ABDOMEN: Soft, nontender, nondistended, normoactive bowel sounds. No palpable organomegaly. MUSCULOSKELETAL: No joint swelling or deformity. EXTREMITIES: No cyanosis, clubbing, or pedal edema. NEUROLOGICAL: Gross neurological examination did not reveal any focal deficits. -SKIN: No rashes. Has generalized petechial rash, more confluent in the inguinal areas and both feet. With some itching. No mouth ulcers - Labs CBC & Chem 7: 06/01/20 05:41 06/01/20 05:41 Labs: Abnormal Lab Results - Last 24 Hours (Table) 06/01/20 06/02/20 06/02/20 Range/Units 22:03 06:21 07:10 POC Glucose (mg/dL) 203 H 110 H (75-99) mg/dL Iron 24 L (65-175) ug/dL TIBC 217 L (228-460) ug/dL % Saturation 11.06 L (15.00-50.00) Troponin I (0.000-0.034) ng/mL 06/02/20 06/02/20 06/02/20 Range/Units 11:40 15:36 16:55 POC Glucose (mg/dL) 186 H 248 H (75-99) mg/dL Iron (65-175) ug/dL TIBC (228-460) ug/dL % Saturation (15.00-50.00) Troponin I 0.069 H* (0.000-0.034) ng/mL 06/02/20 Range/Units 19:41 POC Glucose (mg/dL) 216 H (75-99) mg/dL Iron (65-175) ug/dL TIBC (228-460) ug/dL % Saturation (15.00-50.00) Troponin I (0.000-0.034) ng/mL Assessment and Plan Assessment: Petechal rash, with itching Generalized weakness Bilateral pleural effusion asymptomatic bacteriuria End stage renal disease on hemodialysis Bilateral heel pressure ulcers Acute on chronic systolic CHF with ejection fraction of 40-45%, with moderate tricuspid regurgitation and severe pulmonary hypertension Diabetes mellitus Hypertension Hyperlipidemia Osteoarthritis GERD Bilateral heel pressure ulcer Chronic bilateral venous stasis dermatitis Benign prostatic hypertrophy Plan: Patient is a 80 E. old male who presents because of rash, on the left overload. Continue with hemodialysis per nephrology consult. Hold Eliquis and check chest ultrasound for possible need for thoracocentesis. His petechial rash is s econdary to platelet dysfunction, hematology on the case. Also patient might follow up with dermatology as an outpatient Continue holding Lantus 10 units daily and continue with insulin sliding scale as his needs are variable and very low. Labs and medication were reviewed.. Continue same treatment. Continue with symptomatic treatment. Resume home medication. Monitor lytes and vitals. DVT and GI prophylaxis. Further recommendations depends on the clinical course of the patient DVT prophylaxis: Eliquis GI Prophylaxis: Ppi Long-term Prognosis is guarded
--- NOTE | 2020-06-02 21:32 | US ---
EXAMINATION TYPE: US chest DATE OF EXAM: 06/02/2020 COMPARISON: NONE CLINICAL HISTORY: Bilateral pleural effusion. TECHNIQUE: Targeted ultrasound of the posterior lower bilateral hemithoraces EXAM MEASUREMENTS: Right Pleural Effusion pocket size: 7.0 cm Right skin surface to fluid distance: 3.3 cm Left Pleural Effusion pocket size: 3.4 cm Left skin surface to fluid distance: 3.2 cm Right side marked for possible thoracentesis outside the dept. Lung at 5.9cm. Left side marked for possible thoracentesis outside the dept. Pulmonologists are able to review the images in the patient?s EMR. IMPRESSIONS: There is demonstration of bilateral pleural effusions and larger on the right side.
[2020-06-03 06:10] LABS: Anisocytosis Moderate; HCT 31.1 % (39.0-53.0); HGB 9.5 gm/dL (13.0-17.5); Hypochromasia Marked; MCH 28.3 pg (25.0-35.0); MCHC 30.5 g/dL (31.0-37.0); MCV 92.6 fL (80.0-100.0); Macrocytosis Slight; Mean Platelet Volume 7.7; Platelet Count 110 k/uL (150-450); RBC 3.36 m/uL (4.30-5.90)
[2020-06-03 06:37] LABS: Eosinophils # (M) 0.12 k/uL (0-0.7); Lymphocytes # (M) 0.24 k/uL (1.0-4.8); Monocytes # (M) 0.12 k/uL (0-1.0); Neutrophils # (M) 5.52 k/uL (1.3-7.7); Neutrophils % (M) 92 %; Nucleated Red Blood Cells 0 /100 WBC (0-0); Total Cells Counted 100
[2020-06-03 06:59] LABS: Glucose,Whole Blood 100 mg/dL (75-99)
[2020-06-03] MEDS: INSULIN ASPART (NovoLOG) 100 UNIT/ML VIAL SQ SCH ×4 (07:24→21:34)
[2020-06-03] MEDS: FERROUS SULFATE 325 MG TAB PO SCH (08:43)
[2020-06-03] MEDS: TRIAMCINOLONE 0.1% CREAM 80 GM TUBE TOPICAL SCH ×2 (08:43→21:33)
[2020-06-03] MEDS: FUROSEMIDE 80 MG TAB PO SCH ×2 (08:43→16:48)
[2020-06-03] MEDS: AMMONIUM LACTATE 12% CREAM 140 GM TUBE TOPICAL PRN (08:43)
[2020-06-03] MEDS: TAMSULOSIN 0.4 MG CAP.ER.24H PO SCH ×2 (08:43→16:48)
[2020-06-03] MEDS: MIDODRINE 5 MG TAB PO SCH ×3 (08:43→16:48)
[2020-06-03] MEDS: PANTOPRAZOLE 40 MG TABLET PO SCH (08:43)
--- NOTE | 2020-06-03 10:14 | P.CRDCN ---
History of Present Illness Consult date: 06/03/20 History of present illness: CHIEF COMPLAINT: Elevated troponin HISTORY OF PRESENT ILLNESS: This is a 80 -year old male with a past medical history significant for atrial fibrillation, coronary artery disease, diabetes mellitus, hypertension, hyperlipidemia, and end-stage renal disease on hemodialysis. We have been asked to see the patient in consultation for elevated troponin. Patient examined this morning at the bedside. Patient is lethargic upon examination. He is a poor historian. He is unable to tell me if he follows outpatient with a caterpillar mechanic. Patient apparently had some shortness of breath yesterday. A troponin was drawn and came back 0.069. Patient also had a troponin drawn on admission 4 days prior that was 0.058. Patient is unable to recall having any chest pain, chest pressure, or shortness of breath yesterday. He currently denies chest pain or SOB. There was has been some discussion regarding possible hospice. Patient is currently a DNR. DIAGNOSTICS: EKG reveals atrial fibrillation with t wave inversion in V1-V4, unchanged from previous EKGs Chest xray: Bilateral pleural effusions. More pleural fluid on the right side. Basilar pulmonary infiltrates. No obvious heart failure. Moderate cardiomegaly Laboratory data: WBC 6.0. Hemoglobin 9.5. Platelet count 110. Sodium 133. Potassium 5.2. BUN 42. Creatinine 3.6. Troponin 0.058. 0.069. Current home cardiac medications include metoprolol 25 mg twice a day, Lasix 80 mg twice a day, Eliquis 2.5 mg twice a day, and Crestor 10 mg daily Echocardiogram completed in April 2020 revealed ejection fraction between 40 and 45%, moderate tricuspid regurgitation, and severe pulmonary retention REVIEW OF SYSTEMS: Unable to obtain a thorough review of systems secondary to lethargy PHYSICAL EXAM: VITAL SIGNS: Reviewed. GENERAL: Well-developed in no acute distress. HEENT: Head is normocephalic. Pupils are equal, round. Sclerae anicteric. Mucous membranes of the mouth are moist. Neck supple. No JVD or thyromegaly LUNGS: Respirations even and unlabored. Lungs diminished HEART: Irregular rate and rhythm. S1 and S2 heard. Systolic murmur noted. ABDOMEN: Soft. Nondistended. Nontender. EXTREMITIES: Normal range of motion. No clubbing or cyanosis. Peripheral pulses intact. Trace lower extremity edema NEUROLOGIC: Awake and alert. Oriented x 3. SKIN: Generalized petechial rash noted ASSESSMENT: Abnormal troponin, no evidence of acute coronary syndrome, likely secondary to CKD Bilateral pleural effusions Chronic persistent atrial fibrillation, on long-term anticoagulation with Eliquis History of CAD with previous CABG History of ischemic cardiomyopathy, EF 45% End-stage renal disease on hemodialysis Mildly elevated LFTs Hypertension Hyperlipidemia Diabetes mellitus, type II Severe pulmonary hypertension, RVSP 64.59 PLAN: Resume metoprolol at lower dose 12.5mg PO BID with parameters to hold for systolic blood pressure less than 90 or heart rate less than 60 Resume statin. Monitor LFTs Pulmonary consulted for pleural effusions Eliquis on hold secondary to pleural effusions and possible thoracentesis. If no intervention to be performed by pulmonary, resume Eliquis No need to repeat echo as this was just performed in April 2020 Hospice was consulted and met with patient over the weekend. Await final dec ision regarding hospice. Nurse practitioner note has been reviewed by physician. Signing provider agrees with the documented findings, assessment, and plan of care. Past Medical History Past Medical History: Atrial Fibrillation, Coronary Artery Disease (CAD), Heart Failure, Diabetes Mellitus, GERD/Reflux, Hyperlipidemia, Hypertension, Myocardial Infarction (MD), Osteoarthritis (OA), Renal Disease, Vascular Disorder Additional Past Medical History / Comment(s): Pt recently admitted to [facility] on 01/16/19 with bilateral lower extremity cellulitis with multiple ulcers-positive for klebsiella/pseudomonas, uncontrolled diabetes, pleural effusion with R thoracentesis, exacerbation CHF. Other Hx: Paroxysmal Aflutter, PAD, chronic bilateral venous stasis dermatitis, lower extremety infection/blisters, chronic CHF, IDDM type II, BPH, post CABG urinary retention, CRD stage III, Last Myocardial Infarction Date:: 12/08/18 History of Any Multi-Drug Resistant Organisms: None Reported Past Surgical History: Appendectomy, Coronary Bypass/CABG, Heart Catheterization With Stent Additional Past Surgical History / Comment(s): 12/08/18 CABG 4 vessels, PCI with stents 2004, cardioversion for Aflutter, bilateral cataract removals/lens implants. Past Anesthesia/Blood Transfusion Reactions: No Reported Reaction Additional Past Anesthesia/Blood Transfusion Reaction / Comment(s): Pt received blood with CABG Date of Last Stent Placement:: 2004 Past Psychological History: No Psychological Hx Reported Additional Psychological History / Comment(s): Single. No children. No pets. Remote tobacco use. No international travel since his experience. 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 He quit drinking 1974 Past Drug Use History: None Reported - Past Family History Mother Family Medical History: Myocardial Infarction (MD) Additional Family Medical History / Comment(s): Mother had a MD at the age of 64 Father Additional Family Medical History / Comment(s): Father had mental health issues after a "bad" truck accident. Medications and Allergies Home Medications Medication Instructions Recorded Confirmed Type Acetaminophen Tab [Tylenol] 500 mg PO Q6HR PRN tab 01/25/19 05/29/20 Rx Metoprolol Tartrate [Lopressor] 25 mg PO BID@0800,1600 02/08/19 05/29/20 History Ferrous Sulfate [Iron (65 MG 325 mg PO DAILY 07/27/19 05/29/20 History Elemental)] Ammonium Lactate Cream [Lac-Hydrin 1 applic TOPICAL BID PRN 10/30/19 05/29/20 History 12% Cream] Bacitracin Zinc Oint 1 applic TOPICAL BID PRN 10/30/19 05/29/20 History Finasteride [Proscar] 5 mg PO DAILY 10/30/19 05/29/20 History Insulin Glargine,Hum.rec.anlog 10 unit SQ DAILY #1 pen 11/05/19 05/29/20 Rx [Lantus Solostar] Albuterol Sulfate [Ventolin HFA] 2 puff INHALATION RT-Q4H PRN 12/26/19 05/29/20 History Docusate [Colace] 100 mg PO DAILY PRN cap 01/12/20 05/29/20 Rx Ergocalciferol [Vitamin D2 50,000 unit PO Q72H cap 01/12/20 05/29/20 Rx (DRISDOL)] Pantoprazole [Protonix] 40 mg PO DAILY tablet. 01/12/20 05/29/20 Rx Apixaban [Eliquis] 2.5 mg PO BID@0800,1600 04/07/20 05/29/20 History Insulin Aspart [NovoLOG Flexpen] See Protocol SQ TID-W/MEALS 04/07/20 05/29/20 History Melatonin 5 mg PO HS 04/07/20 05/29/20 History Ondansetron [Zofran] 4 mg PO TID PRN 04/07/20 05/29/20 History Tamsulosin HCl [Flomax] 0.4 mg PO BID@0800,1600 05/16/20 05/29/20 History Ascorbic Acid [Vitamin C] 500 mg PO DAILY 05/29/20 05/29/20 History Calcium Acetate [PhosLo] 667 mg PO TID@0800,1200,1800 05/29/20 05/29/20 History Calcium Carbonate [Tums] 1,000 mg PO BID@0800,1600 05/29/20 05/29/20 History Furosemide [Lasix] 80 mg PO BID@0800,1600 05/29/20 05/29/20 History Midodrine [ProAmatine] 10 mg PO TID@0800,1200,1800 05/29/20 05/29/20 History Povidone-Iodine [Betadine] 1 applic TOPICAL DAILY 05/29/20 05/29/20 History Rosuvastatin [Crestor] 10 mg PO DAILY 05/29/20 05/29/20 History Triamcinolone 0.1% Cream [Kenalog 1 applic TOPICAL BID 05/29/20 05/29/20 History 0.1% Cream] Triamcinolone 1% Cream Mixture 1 applic TOPICAL DAILY 05/29/20 05/29/20 History traMADol HCL 25 mg PO Q6H PRN 05/29/20 05/29/20 History Allergies Allergy/AdvReac Type Severity Reaction Status Date / Time atorvastatin [From Lipitor] AdvReac MUSCLE/JOINT Verified 05/29/20 13:28 PAIN Physical Exam Vitals: Vital Signs Temp Pulse Resp BP BP Pulse Ox 06/03/20 05:18 79 97/65 06/02/20 20:53 97.6 F 74 20 99/64 98 06/02/20 11:57 97.9 F 75 17 100/61 100 Intake and Output 06/02/20 06/03/20 06/03/20 22:59 06:59 14:59 Intake Total 120 480 Output Total 0 Balance 120 480 Intake: Oral 120 480 Output: Urine 0 Other: Voiding Method Urinal Urinal Weight 82.7 kg Results 06/03/20 05:24 06/01/20 05:41 Cardiac Enzymes 06/02/20 Range/Units 15:36 Troponin I 0.069 H* (0.000-0.034) ng/mL CBC 06/03/20 Range/Units 05:24 WBC 6.0 (3.8-10.6) k/uL RBC 3.36 L (4.30-5.90) m/uL Hgb 9.5 L (13.0-17.5) gm/dL Hct 31.1 L (39.0-53.0) % Plt Count 110 L (150-450) k/uL Current Medications Generic Name Dose Route Start Last Admin Trade Name Freq PRN Reason Stop Dose Admin Albuterol Sulfate 2 puff 05/29/20 20:38 06/02/20 11:35 Albuterol Hfa Inhaler INHALATION 2 puff RT-Q4H PRN Administration Shortness Of Breath Bacitracin 1 applic 05/30/20 07:57 Bacitracin Zinc 500 Unit/Gm Oint 28.4 Gm Tube TOPICAL BID PRN INFECTION Darbepoetin Samson 40 mcg 05/30/20 12:00 05/30/20 18:33 Darbepoetin Samson 40 Mcg/0.4 Ml Syringe SQ 40 mcg Q7D PEARL Administration Docusate Sodium 100 mg 05/30/20 07:57 Docusate 100 Mg Cap PO DAILY PRN Constipation Ferrous Sulfate 325 mg 05/30/20 09:00 06/03/20 08:43 Ferrous Sulfate 325 Mg Tab PO 325 mg DAILY PEARL Administration Furosemide 80 mg 05/29/20 20:55 06/03/20 08:43 Furosemide 80 Mg Tab PO 80 mg BID@0900,1600 PEARL Administration Ferric Sodium Gluconate 125 mg 110 mls @ 100 mls/hr 06/03/20 09:00 / Sodium Chloride IVPB DAILY PEARL Insulin Aspart 0 unit 05/30/20 17:30 06/03/20 07:24 Insulin Aspart (Novolog) 100 Unit/Ml Vial SQ Not Given ACHS [facility] Protocol Lactic Acid 1 applic 05/30/20 07:57 06/03/20 08:43 Ammonium Lactate 12% Cream 140 Gm Tube TOPICAL 1 applic BID PRN Administration Dry Skin Melatonin 5 mg 05/29/20 21:00 06/02/20 20:36 Melatonin 5 Mg Tablet PO 5 mg HS PEARL Administration Midodrine 10 mg 05/30/20 08:00 06/03/20 08:43 Midodrine 5 Mg Tab PO 10 mg TID@0800,1200,1800 PEARL Administration Ondansetron HCl 4 mg 05/30/20 07:57 Ondansetron 4 Mg Tab PO TID PRN Nausea Pantoprazole Sodium 40 mg 05/30/20 09:00 06/03/20 08:43 Pantoprazole 40 Mg Tablet PO 40 mg [id number] PEARL Administration Tamsulosin HCl 0.4 mg 05/29/20 20:54 06/03/20 08:43 Tamsulosin 0.4 Mg Cap.Er.24h PO 0.4 mg 0800,1600 PEARL Administration Triamcinolone Acetonide 1 applic 05/30/20 09:00 06/03/20 08:43 Triamcinolone 0.1% Cream 80 Gm Tube TOPICAL 1 applic BID PEARL Administration Intake and Output 06/02/20 06/03/20 06/03/20 22:59 06:59 14:59 Intake Total 120 480 Output Total 0 Balance 120 480 Intake: Oral 120 480 Output: Urine 0 Other: Voiding Method Urinal Urinal Weight 82.7 kg 06/03/20 05:24 06/01/20 05:41
[2020-06-03] MEDS: SODIUM FERRIC GLUCONAT-SUCROSE 125 MG in SODIUM CHLORIDE 0.9% 100 ML IVPB SCH (10:25)
[2020-06-03 11:44] LABS: Glucose,Whole Blood 153 mg/dL (75-99)
[2020-06-03] MEDS: ALBUTEROL HFA INHALER INHALATION PRN (11:55)
--- NOTE | 2020-06-03 12:19 | P.PN ---
Subjective This is a pleasant 80 years old male with multiple medical problems including end-stage renal disease on hemodialysis, chronic atrial fibrillation on Eliquis, coronary artery disease, heart failure, diabetes mellitus, GERD, hyperlipidemia, hypertension, osteoarthritis, bilateral heel pressure ulcers, chronic bilateral venous stasis dermatitis, BPH, patient has indwelling Torres catheter for 4 months as he is telling me. He was recently in this hospital from 05/16-05/22 for rash and fluid overload. He presents because of generalized weakness and worsening take a rash all over his body of one week duration. Rash is itching and its more in the extremities but also on the trunk and more confluent in the feet and in the inguinal areas. He has some few petechia of the month but no mouth ulcer. No genital ulcer. He denies chest pain or dyspnea, he has some occasional cough and phlegm. No abdominal pain, no nausea vomiting. No diarrhea. He had an episode of diarrhea about one week ago. Patient is compliant with his hemodialysis treatment and he did not miss one as he states. No fever. No dizziness Also patient has bilateral heel pressure ulcers with black scab on top, no surrounding cellulitis Vitals are stable and patient is afebrile. He is saturating 95% on room air. Blood pressure on the low normal side at 96/57 Hemoglobin 7.3, which is close to his baseline. No leukocytosis and platelet count is normal at 207K. INR 1.3. Glucose was low last night 59, creatinine 3.2, sodium 134, liver enzymes slightly elevated at 68 AST and 78 ALT, troponin is slightly elevated at 0.058, while troponin is chronically elevated with baseline 0.05-0.1. Urine analysis showing leukocyte esterase large, and WBC more than 182 EKG showing atrial fibrillation at 73 with QTC [address]-T changes. Chest x-ray: Stable x-ray most typical of CHF, underlying infiltrate not excluded. as per Radiologist 05/31/2020 Patient is awake and alert. His petechial rash is fading away today as its less red and more pink. He still feels generally weak. Hematology consult appreciated the recommended to keep monitor the patient for now, continue to check for PTT, IgA and abdominal imaging. Continue with hemodialysis per nephro logy Urine culture: Normal beba and patient is asymptomatic. No fever or white cell count elevation. No need for antibiotics 06/01/2020 Patient clinically looks the same with generalized weakness and petechial rash. His hemodynamically stable and labs are reviewed. Hematology input is appreciated and recommended some workup B12 is high at 955, TSH is normal at 2.5. Hemoglobin stable at 9.0 Blood pressure still on the low normal this morning it is/56, heart rate 79. Patient is asymptomatic. He is still on medial drain 10 mg 3 times a day. Continue with dialysis per nephrology team 06/02/2020 Patient is awake and alert, is still have petechial rash although it looks to be somewhat improving and fading away but not everywhere. This afternoon he was complaining of from breathing difficulty, repeat troponin looks slightly elevated at baseline area with no chest pain however repeat chest x-ray showing bilateral pleural effusion. We will hold her liquids tonight and tomorrow, we'll check ultrasound of the chest for possible need for thoracocentesis, we will assess in the morning the need for thoracocentesis or not. Patient petechial rash most likely related to his platelet dysfunction from his renal disease, treat symptomatically, otherwise if patient deteriorates clinically then he might be eligible for hospice for comfort care. Long-term prognosis is definitely guarded 06/03/2020 Patient is awake and alert, his rash looks stable, he is complaining of from his rash and some pain in his extremities A still complaining from some respiratory difficulty, Chest ultrasound showing bilateral pleural effusion with 7.0 cm on the right side and 3.4 cm on the left side, pulmonary team were consulted Similar consult is on the case including hematology and nephrology Patient will be discharge once cleared by all consultants back to his ECF and Prognosis remains guarded and I talked to the patient today about hospice and he agrees to do palliative care consult as an outpatient when his back [facility] Objective - Vital Signs Vital signs: Vital Signs Temp 97.6 F 06/02/20 20:53 Pulse 79 06/03/20 05:18 Resp 20 06/02/20 20:53 BP 97/65 06/03/20 05:18 Pulse Ox 98 06/02/20 20:53 Intake & Output 06/02/20 06/03/20 06/03/20 18:59 06:59 18:59 Intake Total 600 600 Output Total 0 Balance 600 600 Weight 82.7 kg Intake: Oral 600 600 Output: Urine 0 Other: Voiding Method Urinal Urinal Urinal # Bowel Movements 1 - Exam GENERAL: The patient is alert and oriented x3, not in any acute distress. Well developed, well nourished. HEENT: Pupils are round and equally reacting to light. EOMI. No scleral icterus. No conjunctival pallor. Normocephalic, atraumatic. No pharyngeal erythema. No thyromegaly. CARDIOVASCULAR: S1 and S2 present. No murmurs, rubs, or gallops. -PULMONARY: Chest is clear to auscultation, no wheezing or crackles. Decreased breath sounds on both sides ABDOMEN: Soft, nontender, nondistended, normoactive bowel sounds. No palpable organomegaly. MUSCULOSKELETAL: No joint swelling or deformity. EXTREMITIES: No cyanosis, clubbing, or pedal edema. NEUROLOGICAL: Gross neurological examination did not reveal any focal deficits. -SKIN: No rashes. Has generalized petechial rash, more confluent in the inguinal areas and both feet. With some itching. No mouth ulcers - Labs CBC & Chem 7: 06/03/20 05:24 06/01/20 05:41 Labs: Abnormal Lab Results - Last 24 Hours (Table) 06/02/20 06/02/20 06/02/20 Range/Units 15:36 16:55 19:41 RBC (4.30-5.90) m/uL Hgb (13.0-17.5) gm/dL Hct (39.0-53.0) % MCHC (31.0-37.0) g/dL RDW (11.5-15.5) % Plt Count (150-450) k/uL Lymphocytes # (Manual) (1.0-4.8) k/uL POC Glucose (mg/dL) 248 H 216 H (75-99) mg/dL Troponin I 0.069 H* (0.000-0.034) ng/mL 06/03/20 06/03/20 06/03/20 Range/Units 05:24 06:57 11:23 RBC 3.36 L (4.30-5.90) m/uL Hgb 9.5 L (13.0-17.5) gm/dL Hct 31.1 L (39.0-53.0) % MCHC 30.5 L (31.0-37.0) g/dL RDW 21.0 H (11.5-15.5) % Plt Count 110 L (150-450) k/uL Lymphocytes # (Manual) 0.24 L (1.0-4.8) k/uL POC Glucose (mg/dL) 100 H 153 H (75-99) mg/dL Troponin I (0.000-0.034) ng/mL Assessment and Plan Assessment: Petechal rash, with itching Generalized weakness Bilateral pleural effusion asymptomatic bacteriuria End stage renal disease on hemodialysis Bilateral heel pressure ulcers Acute on chronic systolic CHF with ejection fraction of 40-45%, with moderate t ricuspid regurgitation and severe pulmonary hypertension Diabetes mellitus Hypertension Hyperlipidemia Osteoarthritis GERD Bilateral heel pressure ulcer Chronic bilateral venous stasis dermatitis Benign prostatic hypertrophy Plan: Patient is a 80 E. old male who presents because of rash, on the left overload. Continue with hemodialysis per nephrology consult. Hold Eliquis and check chest ultrasound for possible need for thoracocentesis. His petechial rash is secondary to platelet dysfunction, hematology on the case. Also patient might follow up with dermatology as an outpatient Continue holding Lantus 10 units daily and continue with insulin sliding scale as his needs are variable and very low. Labs and medication were reviewed.. Continue same treatment. Continue with symptomatic treatment. Resume home medication. Monitor lytes and vitals. DVT and GI prophylaxis. Further recommendations depends on the clinical course of the patient DVT prophylaxis: Eliquis GI Prophylaxis: Ppi Long-term Prognosis is guarded
--- NOTE | 2020-06-03 17:07 | PN ---
PROGRESS NOTE Patient is seen for followup for end-stage renal disease. He is maintained on a Wednesday, , Wednesday schedule for hemodialysis, PHYSICAL EXAMINATION: Today patient is comfortable, denies any significant complaints, blood pressure 91/55, heart rate 76 per minute, he is afebrile. Examination of the heart S1, S2. Examination of lungs, decreased breath sounds at the bases. Abdomen is soft, nontender. Examination of the lower extremities shows edema 2 to 3+ bilaterally. Chronic skin changes noted. CLIENT MANAGER exam grossly intact. LABS: Show hemoglobin of 9.5 g/dL today. No BMP available from today. ASSESSMENT: 1. End-stage renal disease, on hemodialysis on a Wednesday, , Wednesday schedule. We will arrange for hemodialysis in a.m. 2. Iron-deficiency, maintained on IV iron. 3. Volume overload. Expect further improvement with hemodialysis and ultrafiltration in a.m. 4. CKD mineral bone disorder. 5. Rash generalized, possible allergic reaction, currently somewhat improved. 6. Chronic atrial fibrillation. 7. Severe pulmonary hypertension, resulting in chronic lower extremity edema. PLAN: Hemodialysis in a.m. MMODL / IJN: [id number] /
[2020-06-03 17:09] LABS: Glucose,Whole Blood 183 mg/dL (75-99)
[2020-06-03] MEDS: METOPROLOL TARTRATE 12.5 MG TAB PO SCH (21:32)
[2020-06-03] MEDS: MELATONIN 5 MG TABLET PO SCH (21:33)
--- NOTE | 2020-06-03 23:44 | CONS ---
CONSULTATION CRITICAL CARE CONSULTATION: DATE OF SERVICE: June 03, 2020. REASON FOR CONSULTATION: Pleural effusion. HISTORY OF PRESENT ILLNESS: A 80-year-old male, well known to us. He was brought in from the residential for generalized weakness, petechial rash, shortness of breath. The patient apparently has been complaining of a rash which has gotten worse recently. He also complained about being short of breath. The patient has a history of effusions in the past and has had thoracentesis in the past. When we went into the room to see the patient, the patient was very frail-appearing. He was not particularly short of breath, but he was wearing O2. He mentioned to us that he decided to go hospice and he did really did not want anything done in regard to drainage of the left-sided pleural effusion. I think that is pretty reasonable. We did talk to the nurse about this. She confirmed the fact that he was going to go comfort measures. He does have a history of renal failure and currently on hemodialysis. In recent weeks and months, the patient has declined significantly. He denies any cough. No phlegm production. No fever. No chills. No chest pain. MEDICATIONS: Reviewed. He is on metoprolol, iron, Lac-Hydrin cream, bacitracin ointment, Proscar, Ventolin HFA, Eliquis, insulin, melatonin, Zofran, Flomax, vitamin C, calcium acetate, calcium carbonate, Lasix, midodrine, Betadine, Crestor, Kenalog cream, triamcinolone cream, and Tramadol. Other medications include Tylenol, insulin, Colace, vitamin D2, and Protonix. ALLERGIES: LIPITOR. PAST MEDICAL HISTORY: Quite extensive and includes atrial fibrillation, CAD, CHF, diabetes mellitus, GERD, hyperlipidemia, hypertension, myocardial infarction, DJD, chronic kidney disease, requiring hemodialysis and among other things, various infections from nonhealing ulcers and cellulitis including Klebsiella and Pseudomonas. SURGICAL HISTORY: Quite extensive and includes bypass grafting, appendectomy, heart catheterization with stent, cardioversion, and bilateral cataract surgery, among others. SOCIAL HISTORY: Negative for tobacco use. Denies any significant alcohol use. No illicit drug use. FAMILY HISTORY: Positive for a father with mental health issues and mother with a history of myocardial infarction. REVIEW OF SYSTEMS: CONSTITUTIONAL: Weakness, decreased appetite, weight loss. NEUROLOGIC negative. HEENT negative. CARDIOVASCULAR negative. PULMONARY: Shortness of breath. GI: Poor appetite. negative. RHEUMATOLOGIC negative. IMMUNOLOGIC negative. ENDOCRINOLOGIC negative. DERMATOLOGIC rash. PHYSICAL EXAMINATION: VITAL SIGNS: Current vital signs are reviewed. Temperature is 97.9. Heart rate 76, respiratory rate 16, blood pressure 91/55, mean 67 and 3 L saturations 100%. GENERAL: Appears in no acute distress. HEENT: Examination is grossly unremarkable. NECK: Supple. Full range of motion. No adenopathy. Neck veins are flat. CARDIOVASCULAR: Examination reveals distant heart sounds. Heart rate 76 beats per minute. No murmur. Soft systolic murmur is noted. Heart sounds are distant. LUNGS: Reveal diminished breath sounds at the bases. There are some bibasilar crackles. No wheezes. ABDOMEN: Soft. EXTREMITIES: Reveal some mild edema. SKIN: Skin reveals purpuric rash. NEUROLOGIC: Examination is brief but nonfocal. LABS: Reviewed. White count 6, hemoglobin 9.5, hematocrit 31.1, platelet count 110,000. PT/INR were 11.9 and 1.2 respectively. PTT 28.6. Sodium 133, potassium 5.2, chloride 96, CO2 23, anion gap is 14. BUN and creatinine were 42 and 3.6. Glucose is 125. Troponins were 0.069 and 0.086. AST is 54, ALT is 67, alkaline phosphatase 537. The rest of the labs are reviewed. Ultrasound of the chest reveals bilateral effusions. The right-sided effusion is 7 cm and a left-sided pleural effusion, 3.4 cm. Chest x-ray shows evidence of bilateral effusions left greater than right. Microbiology is negative. Medications are reviewed. ASSESSMENT: 1. Shortness of breath, related to underlying bilateral effusions and fluid overload/congestive heart failure. 2. History of atrial fibrillation. 3. History of coronary artery disease. 4. History of diabetes mellitus. 5. History of gastroesophageal reflux disease. 6. Hyperlipidemia. 7. Essential hypertension. 8. History of myocardial infarction. 9. Degenerative joint disease. 10.Chronic kidney disease, currently on 3 time a week hemodialysis. 11.Multiple other medical problems and comorbidities. PLAN: The patient apparently has decided to go hospice. I think that is reasonable. Unnecessary medications should be continued. The focus now should be on comfort and palliation. No additional recommendations are made. We will review his medications and discontinue those medications ordered by our team. KRISTAL / DONALD: [id number] /
[2020-06-04] MEDS: AMMONIUM LACTATE 12% CREAM 140 GM TUBE TOPICAL PRN (06:21)
[2020-06-04 06:37] LABS: Anisocytosis Moderate; Basophils % (A) 0 %; Eosinophils # (A) 0.1 k/uL (0-0.7); Eosinophils % (A) 2 %; HCT 30.9 % (39.0-53.0); HGB 8.9 gm/dL (13.0-17.5); Hypochromasia Marked; Lymphocytes # (A) 0.4 k/uL (1.0-4.8); Lymphocytes % (A) 6 %; MCH 27.3 pg (25.0-35.0); MCHC 28.9 g/dL (31.0-37.0); MCV 94.4 fL (80.0-100.0); Macrocytosis Slight; Mean Platelet Volume 7.4; Monocytes # (A) 0.3 k/uL (0-1.0); Monocytes % (A) 4 %; Neutrophils # (A) 5.3 k/uL (1.3-7.7); Neutrophils % (A) 87 %; Platelet Count 145 k/uL (150-450); RBC 3.27 m/uL (4.30-5.90); RDW 21.3 % (11.5-15.5); WBC 6.1 k/uL (3.8-10.6)
[2020-06-04 07:13] LABS: Glucose,Whole Blood 191 mg/dL (75-99)
[2020-06-04] MEDS: INSULIN ASPART (NovoLOG) 100 UNIT/ML VIAL SQ SCH ×2 (07:49→12:32)
[2020-06-04] MEDS: TAMSULOSIN 0.4 MG CAP.ER.24H PO SCH (07:50)
[2020-06-04] MEDS: PANTOPRAZOLE 40 MG TABLET PO SCH (07:50)
[2020-06-04] MEDS: FUROSEMIDE 80 MG TAB PO SCH (07:51)
[2020-06-04] MEDS: MIDODRINE 5 MG TAB PO SCH ×2 (07:51→13:01)
[2020-06-04] MEDS: FERROUS SULFATE 325 MG TAB PO SCH (07:51)
[2020-06-04] MEDS: METOPROLOL TARTRATE 12.5 MG TAB PO SCH (07:51)
[2020-06-04] MEDS: TRIAMCINOLONE 0.1% CREAM 80 GM TUBE TOPICAL SCH (07:52)
[2020-06-04] MEDS: SODIUM FERRIC GLUCONAT-SUCROSE 125 MG in SODIUM CHLORIDE 0.9% 100 ML IVPB SCH (08:32)
[2020-06-04] MEDS ORDERED: NON FORMULARY DRUG (Rosuvastatin 10 MG Tablet) PO SCH (09:00)
[2020-06-04 11:39] LABS: Glucose,Whole Blood 109 mg/dL (75-99)
--- NOTE | 2020-06-04 13:29 | P.DS ---
Providers Date of admission: 05/29/20 16:31 Attending physician: Kala Laboy Consults: 05/29/20 16:31 Consult Physician Routine Consulting Provider: Keron Barclay Consult Reason/Comments: Renal failure, pulmonary edema Do you want consulting provider notified?: Yes 05/30/20 07:55 Consult Physician Urgent Consulting Provider: Zac Jasso Consult Reason/Comments: rash Do you want consulting provider notified?: Yes 05/31/20 07:46 Consult Physician Urgent Consulting Provider: Luciano Mills Consult Reason/Comments: petechial rash Do you want consulting provider notified?: Yes 06/01/20 05:49 Consult Physician Stat Consulting Provider: Sekou Salazar Consult Reason/Comments: Unable to irrigate Torres, concern for clots and bleeding Do you want consulting provider notified?: Yes 06/02/20 17:19 Consult Physician Routine Consulting Provider: Dedrick Edgar Consult Reason/Comments: Elevated troponins Do you want consulting provider notified?: Yes 06/03/20 07:39 Consult Physician Routine Consulting Provider: Collin Jacob Consult Reason/Comments: b/l pleural effusion Do you want consulting provider notified?: Yes Primary care physician: [facility] Hospital Course: Diagnoses: Petechal rash, with itching, secondary to platelet dysfunction and mild thrombocytopenia related to his end-stage renal disease Generalized weakness Bilateral pleural effusion, with a breathing difficulty and dyspnea asymptomatic bacteriuria End stage renal disease on hemodialysis Bilateral heel pressure ulcers Acute on chronic systolic CHF with ejection fraction of 40-45%, with moderate tricuspid regurgitation and severe pulmonary hypertension Diabetes mellitus Hypertension Hyperlipidemia Osteoarthritis GERD Bilateral heel pressure ulcer Chronic bilateral venous stasis dermatitis Benign prostatic hypertrophy hospital course: Hospital course: This is a pleasant 80 years old male with multiple medical problems including end-stage renal disease on hemodialysis, chronic atrial fibrillation on Eliquis, coronary artery disease, heart failure, diabetes mellitus, GERD, hyperlipidemia, hypertension, osteoarthritis, bilateral heel pressure ulcers, chronic bilateral venous stasis dermatitis, BPH, patient has indwelling Torres catheter for 4 months as he is telling me. He was recently in this hospital from 05/16-05/22 for rash and fluid overload. He presents because of generalized weakness and worsening petechial rash all over his body of one week duration. Rash is itching and its more in the extremities but also on the trunk and more confluent in the feet and in the inguinal areas. He has some few petechia of the month but no mouth ulcer. No genital ulcer. No other specific symptoms. No dermatology service in-house, patient referred for outpatient. Hematology evaluated the patient (Likely has petechiae are related to platelet dysfunction. Coags are normal. Drop in platelets possibly due to consumption). Also patient evaluated by cardiology and pulmonary service. Patient was undergoing hemodialysis and the nephrology team service. Patient showed only slight improvement, eventually patient decided to go for hospice recommended by other consultants including nephrology team and pulmonary team Problems and management plan were discussed with the patient and he verbalized understanding and acceptance. Brother at bedside was updated about the medical condition upon patient request, all this questions were answered to his satisfaction Patient got accepted to [facility] hosp[facility] -Gen: patient is a AAOx3, in moderate respiratory distress CVS: S1-S2, RRR, no murmur -Lungs: B/L CTA, no wheezing. Decreased breath sounds on both sides. Patient is tachypneic and has difficulty talking due to his dyspnea Abdomen: soft, no distention, no tenderness, positive bowel sounds Extremity: no leg edema or induration skin: Petechial rash improvement Time spent more than 35 minutes Plan - Discharge Summary New Discharge Prescriptions: No Action Acetaminophen Tab [Tylenol] 500 mg PO Q6HR PRN tab PRN Reason: Fever And/ Or Pain Metoprolol Tartrate [Lopressor] 25 mg PO BID@0800,1600 Ferrous Sulfate [Iron (65 MG Elemental)] 325 mg PO DAILY Ammonium Lactate Cream [Lac-Hydrin 12% Cream] 1 applic TOPICAL BID PRN PRN Reason: Dry Skin Bacitracin Zinc Oint 1 applic TOPICAL BID PRN PRN Reason: INFECTION Finasteride [Proscar] 5 mg PO DAILY Insulin Glargine,Hum.rec.anlog [Lantus Solostar] 10 unit SQ DAILY #1 pen Albuterol Sulfate [Ventolin HFA] 2 puff INHALATION RT-Q4H PRN PRN Reason: Shortness Of Breath Docusate [Colace] 100 mg PO DAILY PRN cap PRN Reason: Constipation Pantoprazole [Protonix] 40 mg PO DAILY tablet. Ergocalciferol [Vitamin D2 (DRISDOL)] 50,000 unit PO Q72H cap Ondansetron [Zofran] 4 mg PO TID PRN PRN Reason: Nausea Melatonin 5 mg PO HS Insulin Aspart [NovoLOG Flexpen] See Protocol SQ TID-W/MEALS Apixaban [Eliquis] 2.5 mg PO BID@0800,1600 Tamsulosin HCl [Flomax] 0.4 mg PO BID@0800,1600 Triamcinolone 0.1% Cream [Kenalog 0.1% Cream] 1 applic TOPICAL BID Povidone-Iodine [Betadine] 1 applic TOPICAL DAILY traMADol HCL 25 mg PO Q6H PRN PRN Reason: Pain Calcium Acetate [PhosLo] 667 mg PO TID@0800,1200,1800 Midodrine [ProAmatine] 10 mg PO TID@0800,1200,1800 Furosemide [Lasix] 80 mg PO BID@0800,1600 Calcium Carbonate [Tums] 1,000 mg PO BID@0800,1600 Rosuvastatin [Crestor] 10 mg PO DAILY Ascorbic Acid [Vitamin C] 500 mg PO DAILY Triamcinolone 1% Cream Mixture 1 applic TOPICAL DAILY Discharge Medication List Acetaminophen Tab [Tylenol] 500 mg PO Q6HR PRN tab 01/25/19 [Rx] Metoprolol Tartrate [Lopressor] 25 mg PO BID@0800,1600 02/08/19 [History] Ferrous Sulfate [Iron (65 MG Elemental)] 325 mg PO DAILY 07/27/19 [History] Ammonium Lactate Cream [Lac-Hydrin 12% Cream] 1 applic TOPICAL BID PRN 10/30/19 [History] Bacitracin Zinc Oint 1 applic TOPICAL BID PRN 10/30/19 [History] Finasteride [Proscar] 5 mg PO DAILY 10/30/19 [History] Insulin Glargine,Hum.rec.anlog [Lantus Solostar] 10 unit SQ DAILY #1 pen 11/05/19 [Rx] Albuterol Sulfate [Ventolin HFA] 2 puff INHALATION RT-Q4H PRN 12/26/19 [History] Docusate [Colace] 100 mg PO DAILY PRN cap 01/12/20 [Rx] Ergocalciferol [Vitamin D2 (DRISDOL)] 50,000 unit PO Q72H cap 01/12/20 [Rx] Pantoprazole [Protonix] 40 mg PO DAILY tablet. 01/12/20 [Rx] Apixaban [Eliquis] 2.5 mg PO BID@0800,1600 04/07/20 [History] Insulin Aspart [NovoLOG Flexpen] See Protocol SQ TID-W/MEALS 04/07/20 [History] Melatonin 5 mg PO HS 04/07/20 [History] Ondansetron [Zofran] 4 mg PO TID PRN 04/07/20 [History] Tamsulosin HCl [Flomax] 0.4 mg PO BID@0800,1600 05/16/20 [History] Ascorbic Acid [Vitamin C] 500 mg PO DAILY 05/29/20 [History] Calcium Acetate [PhosLo] 667 mg PO TID@0800,1200,1800 05/29/20 [History] Calcium Carbonate [Tums] 1,000 mg PO BID@0800,1600 05/29/20 [History] Furosemide [Lasix] 80 mg PO BID@0800,1600 05/29/20 [History] Midodrine [ProAmatine] 10 mg PO TID@0800,1200,1800 05/29/20 [History] Povidone-Iodine [Betadine] 1 applic TOPICAL DAILY 05/29/20 [History] Rosuvastatin [Crestor] 10 mg PO DAILY 05/29/20 [History] Triamcinolone 0.1% Cream [Kenalog 0.1% Cream] 1 applic TOPICAL BID 05/29/20 [History] Triamcinolone 1% Cream Mixture 1 applic TOPICAL DAILY 05/29/20 [History] traMADol HCL 25 mg PO Q6H PRN 05/29/20 [History] Follow up Appointment(s)/Referral(s): D[facility] [place] [NON-STAFF] - As Needed ([id number] AT 6:00AM) Verona Jasso MD [STAFF PHYSICIAN] - 07/05/20 10:15 am Forrest Salvador [NON-STAFF] - As Needed [facility] [Primary Care Provider] - 1-2 days
[2020-06-04 14:02] VITALS: BP 81/46; PULSE 45; RESP 18; TEMP 97.4
--- NOTE | 2020-06-04 15:26 | PN ---
PROGRESS NOTE Patient is seen for followup for end-stage renal disease. There has been discussion regarding hospice and at this point, decision has been made to proceed with outpatient hospice care. He is scheduled for hemodialysis today. As outpatient patient can continue with the dialysis or discontinue as there have been patients who continue with dialysis care even in hospice. PHYSICAL EXAMINATION: Today, patient is seen while on dialysis, tolerating his treatment well. Blood pressure 96/48, heart rate 74 per minute, he \is afebrile exam examination shows edema 1+ bilateral lower extremities, which has improved overall. Rash is noted as well which is generalized. Abdomen is soft, nontender. LABS: Reviewed. Hemoglobin 8.9 today. Platelet count is 145,000. ASSESSMENT: 1. End-stage renal disease, on hemodialysis on a Wednesday, , Wednesday schedule. Patient can discontinue his dialysis as outpatient as he is going to hospice care. 2. Generalized rash, possibly drug rash. 3. CKD mineral bone disorder. 4. Generalized debility. 5. Severe pulmonary hypertension. PLAN: Hemodialysis today, then patient can be discharged to hospice with plans to either discontinue or continue with hemodialysis as outpatient. MMODL / IJN: [id number] /
== END 2020-06-04 15:26 | disposition hospice, home (50) | DRG 291 ==
LOC: EC 13:06 → 3SCARD 16:31 → 6NMEDSUR 05-30 23:19
PROVIDERS: ADMIT Internal Medicine; ATTEND Internal Medicine
PROC: 5A1D70Z Performance of Urinary Filtration, Intermittent, Less than 6 Hours Per Day (ICD-10-PCS; principal; 2020-05-31)
DX: I13.2 Hypertensive heart and chronic kidney disease with heart failure and with stage 5 chronic kidney disease, or end stage renal disease (principal); N18.6 End stage renal disease; I50.23 Acute on chronic systolic (congestive) heart failure; R18.8 Other ascites; I48.19 Other persistent atrial fibrillation; I25.10 Atherosclerotic heart disease of native coronary artery without angina pectoris; K21.9 Gastro-esophageal reflux disease without esophagitis; M19.90 Unspecified osteoarthritis, unspecified site; Z66 Do not resuscitate; R79.89 Other specified abnormal findings of blood chemistry; Z51.5 Encounter for palliative care; R34 Anuria and oliguria; R33.8 Other retention of urine; L89.629 Pressure ulcer of left heel, unspecified stage; L89.619 Pressure ulcer of right heel, unspecified stage; D69.59 Other secondary thrombocytopenia; I27.20 Pulmonary hypertension, unspecified; Z79.4 Long term (current) use of insulin; E11.51 Type 2 diabetes mellitus with diabetic peripheral angiopathy without gangrene; E78.5 Hyperlipidemia, unspecified; E83.89 Other disorders of mineral metabolism; E11.22 Type 2 diabetes mellitus with diabetic chronic kidney disease; Z96.1 Presence of intraocular lens; I45.10 Unspecified right bundle-branch block; I08.2 Rheumatic disorders of both aortic and tricuspid valves; I87.2 Venous insufficiency (chronic) (peripheral); H91.92 Unspecified hearing loss, left ear; D63.1 Anemia in chronic kidney disease; I95.89 Other hypotension; D50.9 Iron deficiency anemia, unspecified; I25.5 Ischemic cardiomyopathy; K76.9 Liver disease, unspecified; N40.1 Benign prostatic hyperplasia with lower urinary tract symptoms; Z79.01 Long term (current) use of anticoagulants; Z79.899 Other long term (current) drug therapy; Z95.1 Presence of aortocoronary bypass graft; Z79.890 Hormone replacement therapy; I25.2 Old myocardial infarction; Z88.8 Allergy status to other drugs, medicaments and biological substances; Z90.49 Acquired absence of other specified parts of digestive tract; Z95.5 Presence of coronary angioplasty implant and graft; Z98.890 Other specified postprocedural states; Z98.41 Cataract extraction status, right eye; Z98.42 Cataract extraction status, left eye; Z87.891 Personal history of nicotine dependence; Z82.49 Family history of ischemic heart disease and other diseases of the circulatory system; Z81.8 Family history of other mental and behavioral disorders; Z99.2 Dependence on renal dialysis
CPT/HCPCS: 36415; 71045; 71046; 76604; 76700; 80048; 80053; 81001; 82248; 82607; 82746; 82784; 83540; 83550; 83605; 83735; 84100; 84443; 84484; 85025; 85610; 85730; 87086; 90935; 93005; 94640; 94760; 99285